=== PATIENT | male | born 1960 | race Caucasian/White ===

== ENCOUNTER 2025-02-05 09:23 | Observation (INO) | payer MEDICARE, BC, SELFPAY ==
[2025-02-05] VITALS (10 sets, daily range): BP systolic 118–139; BP diastolic 75–89; PULSE 65–72; RESP 16–20; TEMP 36.5–36.8; O2SAT 94–99; BMI 32.0; BMI 31.1
[2025-02-05 10:04] LABS: Absolute Lymphocyte Count 2.72 X10^3/uL (0.83-4.51); Absolute Neutrophil Count 4.9 X10^3/uL (2.0-7.7); Basophil# 0.06 X10^3/uL; Basophil% 0.7 % (0-1); Eosinophil# 0.25 X10^3/uL; Eosinophils% 2.8 % (0-5); Hematocrit 41.6 % (40-54); Hemoglobin 13.9 g/dL (13.0-16.5); Lymphocyte # 2.72 X10^3/ul (0.83-4.51); Lymphocyte % 30.2 % (19-41); Mean Corp Hgb Conc 33.4 g/dL (32-36); Mean Corpuscular Hgb 26.4 pg (27.0-32.0); Mean Corpuscular Volume 78.9 fL (80-94); Mean Platelet Vol. 9.3 fl (6.2-12.0); Monocyte# 1.04 X10^3/uL; Monocyte% 11.5 % (0-10); NRBC Flagged by Analyzer 0 % (0-5); Neutrophil # 4.91 X10^3/uL (2.7-7.7); Neutrophil % 54.5 % (47-70); Platelet Count 339 K/mm3 (150-450); RBC Distribution Width CV 17.3 % (11.6-14.6); Red Blood Count 5.27 M/mm3 (4.6-6.2)
[2025-02-05] MEDS: 0.9% Normal Saline (1000mL) 1,000 ML 999 ML IV ×2 (10:06→11:31)
--- NOTE | 2025-02-05 10:10 | CT_ITS ---
PROCEDURE: ABDOMEN/PELVIS W IV CONT ONLY 02/05/2025 REASON FOR EXAM: ABD PAIN, RUQ, LLQ TECHNIQUE: ABDOMEN/PELVIS W IV CONT ONLY Coronal and Sagittal reconstruction series were provided. CONTRAST: 100 mL of Isovue 370 One or more dose reduction techniques were used (e.g., Automated exposure control, adjustment of the mA and/or kV according to patient size, use of iterative reconstruction technique. RADIATION DOSE SUMMARY: DLP: 1443 mGycm COMPARISON: 08/19/24 FINDINGS: Limited sections of the lung bases demonstrate no focal pulmonary mass or consolidations. The liver, spleen, pancreas, and both adrenal glands demonstrate no acute findings. Mild hepatic steatosis. Scattered calcifications throughout the spleen likely related to prior granulomatous disease. The gallbladder contains gallstones. No CT evidence of acute cholecystitis. The stomach is unremarkable. The small bowel loops are not dilated. The appendix is not clearly identified, although there are no secondary signs of appendicitis. No colonic obstruction. Colonic diverticulosis without acute diverticulitis. There is no free air or significant free fluid. The kidneys are unremarkable. The urinary bladder is partially distended. The pelvic structures are intact. There is no solid pelvic mass. No significant lymphadenopathy. The aorta and IVC demonstrate no acute findings. Moderate atherosclerosis of the abdominal vasculature. Visualized osseous structures demonstrate no acute abnormality. Extensive multilevel lumbar degenerative changes with posterior fixation hardware and associated laminectomies. CT/Abdomen/Pelvis W IV Cont ONLY IMPRESSION: No acute intra-abdominal process. Colonic diverticulosis without acute diverticulitis. No bowel obstruction. Ch olelithiasis without CT evidence of acute cholecystitis. Reading Location: [id number]
--- NOTE | 2025-02-05 10:10 | EDS_ITS ---
HPI History of Present Illness Chief Complaint: Abd Pain Narrative Narrative: Patient is a 64-year-old male with past medical history of spigelian hernia, hypertension, diabetes who presented to the emergency department the chief complaint of abdominal pain. Patient states that his abdominal pain has been going on for a few weeks and have been progressively worsening. He states that around 3:00 this morning he noted that he had severe abdominal pain prompting him to come here for further evaluation management. Patient denies any recent sick contacts denies any previous abdominal surgeries. He states that he is passing gas. [facility] Medical History Abdominal wall asymmetry Spigelian hernia Fusion 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 Home Medications ?Medication ?Instructions ?Recorded ?Last Taken ?Type amlodipine 10 mg-benazepril 20 mg 1 cap PO QDAY Unknown History capsule esomeprazole magnesium 40 mg 40 mg PO QDAY 06/14/24 Un known History capsule,delayed release gabapentin 600 mg tablet 600 mg PO TID 06/14/24 Unkno wn History isotretinoin 40 mg capsule 40 mg PO BID 06/14/24 Unkno wn History metformin 500 mg tablet 500 mg PO BID 06/14/24 Unkno wn History rosuvastatin 10 mg tablet 10 mg PO QDAY 06/14/24 Unkno wn History umeclidinium 62.5 mcg-vilanterol 1 inh inhalation QDAY 06/14/24 Unknown History 25 mcg/actuation powdr for inhalation (Anoro Ellipta) Allergy/AdvReac Type Severity Reaction Status Date / Time codeine AdvReac Itching Verified 09/10/24 08:08 morphine AdvReac Itching Verified 06/14/24 08:00 Family History Mother No problems noted. Father , 47 yrs old Myocardial infarction Surgical History History of left knee replacement Hx of tonsillectomy Previous back surgery Social History current occupational status: retired Smoking Status: Former smoker quit date: 08/11/09 alcohol intake: current details: seldom caffeine: No do you feel safe at home: Yes ROS ROS ED ROS Narrative Constitutional: Denies fevers, chills, headaches Cardiovascular: Denies chest pain Respiratory: Denies shortness of breath Abdomen: Complains of abdominal pain as noted above denies nausea vomit diarrhea denies dark tarry stools denies blood in stool : Denies any urinary symptoms Neurological: Denies numbness, aches, tingling Musculoskeletal: Denies back pain Skin: Denies any rashes or lesions EXAM Physical Exam Narrative Exam Narrative: General: Patient lying in bed rest comfortably did not appear to be in acute distress Head: Atraumatic, normocephalic Eyes: PERRL bilaterally, EOMI by, no conjunctival injection noted Neck: Soft, supple, trachea midline Cardiovascular: Regular rate and rhythm Respiratory: Clear to auscultation bilaterally Abdomen: Soft, nondistended, tenderness to palpation the right upper quadrant no rebound or guarding on exam patient does have some left lower quadrant tend erness as well no rebound or guarding on exam Extremities: +5/5 strength noted in the bilateral upper and lower extremity, radial pulses +2/4 in the bilateral extremities, no pedal edema on exam Neurological: Patient following commands knew that he was at [facility] year is 2024 Skin: Warm, dry, intact no rashes or lesions noted Const Vital Signs: 02/05/25 09:24 Temperature 97.9 F Temperature Source Temporal Pulse Rate 72 Respiratory Rate 16 Blood Pressure 139/76 H Blood Pressure Mean 97 Pulse Ox 96 Oxygen Delivery Method Room Air MDM MDM MDM Narrative Medical decision making narrative: Patient is a 64-year-old male who presented to the emergency department the chief complaint of abdominal pain that has been progressively worsening. On the differential diagnosis includes but not limited to cholecystitis, pancreatitis, bowel obstruction, diverticulitis, AAA. Once workup is obtained and reviewed he will be reevaluated. Patient will give a liter of IV fluids. Lab Data Labs: Laboratory Results - last 24 hr 02/05/25 09:35 WBC 9.0 RBC 5.27 Hgb 13.9 Hct 41.6 MCV 78.9 L MCH 26.4 L MCHC 33.4 RDW Std Deviation 49.0 H RDW Coeff of Jarvis 17.3 H Plt Count 339 MPV 9.3 Immature Gran % (Auto) 0.300 Neut % (Auto) 54.5 Lymph % (Auto) 30.2 [place] % (Auto) 11.5 H Eos % (Auto) 2.8 Baso % (Auto) 0.7 Absolute Neuts (auto) 4.9 Absolute Lymphs (auto) 2.72 Nucleated RBC % 0 Discharge Plan Triage Chief Complaint: Abd Pain ED Provider: Pablo Norwood Dx/Rx/DC Orders Prescriptions: No Action amlodipine-benazepril 10-20 mg capsule 1 cap PO QDAY Anoro Ellipta 62.5-25 mcg/actuation blister with device 1 inh inhalation QDAY esomeprazole magnesium 40 mg capsule,delayed release(DR/EC) 40 mg PO QDAY isotretinoin 40 mg capsule 40 mg PO BID Rx Instructions: must administer with a meal/food metformin 500 mg tablet 500 mg PO BID rosuvastatin 10 mg tablet 10 mg PO QDAY gabapentin 600 mg tablet 600 mg PO TID Primary Care Provider: Edmundo Pollock Referrals: Edmundo Pollock MD [Primary Care Provider] - Print Language: Ugandan
--- NOTE | 2025-02-05 10:10 | EX.ED.DYSGE1 ---
HPI History of Present Illness Chief Complaint: Abd Pain Narrative Narrative: Patient is a 64-year-old male with past medical history of spigelian hernia, hypertension, diabetes who presented to the emergency department the chief complaint of abdominal pain. Patient states that his abdominal pain has been going on for a few weeks and have been progressively worsening. He states that around 3:00 this morning he noted that he had severe abdominal pain prompting him to come here for further evaluation management. Patient denies any recent sick contacts denies any previous abdominal surgeries. He states that he is passing gas. [facility] Medical History Abdominal wall asymmetry Spigelian hernia Fusion 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 Home Medications ?Medication ?Instructions ?Recorded ?Last Taken ?Type amlodipine 10 mg-benazepril 20 mg 1 cap PO QDAY 06/14/24 Unknown History capsule esomeprazole magnesium 40 mg 40 mg PO QDAY 06/14/24 Unknown History capsule,delayed release gabapentin 600 mg tablet 600 mg PO TID 06/14/24 Unknown History metformin 500 mg tablet 500 mg PO BID 06/14/24 Unknown History rosuvastatin 10 mg tablet 10 mg PO QDAY 06/14/24 Unknown History umeclidinium 62.5 mcg-vilanterol 1 inh inhalation QDAY 06/14/24 Unknown History 25 mcg/actuation powdr for inhalation (Anoro Ellipta) Allergy/AdvReac Type Severity Reaction Status Date / Time codeine AdvReac Itching Verified 09/10/24 08:08 morphine AdvReac Itching Verified 06/14/24 08:00 Family History Mother No problems noted. Father , 47 yrs old Myocardial infarction Surgical History History of left knee replacement Hx of tonsillectomy Previous back surgery Social History current occupational status: retired Smoking Status: Former smoker quit date: 08/11/09 alcohol intake: current details: seldom caffeine: No do you feel safe at home: Yes ROS ROS ED ROS Narrative Constitutional: Denies fevers, chills, headaches Cardiovascular: Denies chest pain Respiratory: Denies shortness of breath Abdomen: Complains of abdominal pain as noted above denies nausea vomit diarrhea denies dark tarry stools denies blood in stool : Denies any urinary symptoms Neurological: Denies numbness, aches, tingling Musculoskeletal: Denies back pain Skin: Denies any rashes or lesions EXAM Physical Exam Narrative Exam Narrative: General: Patient lying in bed rest comfortably did not appear to be in acute distress Head: Atraumatic, normocephalic Eyes: PERRL bilaterally, EOMI by, no conjunctival injection noted Neck: Soft, supple, trachea midline Cardiovascular: Regular rate and rhythm Respiratory: Clear to auscultation bilaterally Abdomen: Soft, nondistended, tenderness to palpation the right upper quadrant no rebound or guarding on exam patient does have some left lower quadrant tenderness as well no rebound or guarding on exam Extremities: +5/5 strength noted in the bilateral upper and lower extremity, radial pulses +2/4 in the bilateral extremities, no pedal edema on exam Neurological: Patient following commands knew that he was at [facility] year is 2024 Skin: Warm, dry, intact no rashes or lesions noted Const Vital Signs: 02/05/25 09:24 02/05/25 11:24 02/05/25 13:00 Temperature 97.9 F Temperature Source Temporal Pulse Rate 72 65 69 Respiratory Rate 16 16 20 H Blood Pressure 139/76 H 128/82 H 135/89 H Blood Pressure Mean 97 97 104 Pulse Ox 96 99 96 Oxygen Delivery Method Room Air Room Air 02/05/25 15:03 Temperature Temperature Source Pulse Rate 69 Respiratory Rate 18 Blood Pressure 118/79 Blood Pressure Mean 92 Pulse Ox 98 Oxygen Delivery Method MDM MDM MDM Narrative Medical decision making narrative: Patient is a 64-year-old male who presented to the emergency department the chief complaint of abdominal pain that has been progressively worsening. On the differential diagnosis includes but not limited to cholecystitis, pancreatitis, bowel obstruction, diverticulitis, AAA. Once workup is obtained and reviewed he will be reevaluated. Patient will give a liter of IV fluids. Your potassium patient CBC reviewed showed no evidence leukocytosis white blood count normal at 9, hemoglobin is 13.9, platelet count was noted be 339. Patient sodium normal 136, potassium normal at 4.2, creatinine normal at 0.76. Patient's AST and ALT are 24 and 19 respectively lipase normal at 21, urinalysis reviewed showed no evidence of infection. Patient CT ab pelvis with IV contrast reviewed showed no acute intra-abdominal processes he has colonic diverticulosis without evidence of acute diverticulitis no bowel obstruction. Cholelithiasis without evidence of acute cholecystitis. I went back in and reevaluate the patient and on abdominal exam he has significant tenderness to palpation in the right upper quadrant clinically does suggest acute cholecystitis therefore a right upper quadrant ultrasound was added on. Right upper quadrant ultrasound was reviewed which showed acute cholecystitis without cholelithiasis hepatic steatosis. Patient was given dose of Zosyn. I reach out to on-call general surgeon Dr. Mahoney who states that he will admit the patient and planning to take his gallbladder out tomorrow. I discussed this with the patient and significant other at bedside they are agreeable this plan all question concerns answered. Lab Data Labs: Laboratory Results - last 24 hr 02/05/25 02/05/25 09:35 11:28 WBC 9.0 RBC 5.27 Hgb 13.9 Hct 41.6 MCV 78.9 L MCH 26.4 L MCHC 33.4 RDW Std Deviation 49.0 H RDW Coeff of Jarvis 17.3 H Plt Count 339 MPV 9.3 Immature Gran % (Auto) 0.300 Neut % (Auto) 54.5 Lymph % (Auto) 30.2 [place] % (Auto) 11.5 H Eos % (Auto) 2.8 Baso % (Auto) 0.7 Absolute Neuts (auto) 4.9 Absolute Lymphs (auto) 2.72 Nucleated RBC % 0 Sodium 136 Potassium 4.2 Chloride 101 Carbon Dioxide 22.8 Anion Gap 12 BUN 7 Creatinine 0.76 Estim Creat Clear Calc 113.02 Est GFR (MDRD) Non-Af 100 BUN/Creatinine Ratio 8.6 L Glucose 143 H Calcium 8.8 Total Bilirubin 0.41 AST 24 ALT 19 Alkaline Phosphatase 82 Total Protein 7.0 Albumin 4.3 Globulin 2.7 Albumin/Globulin Ratio 1.6 Lipase 21 Urine Color Straw Urine Clarity Clear Urine pH 7.0 Ur Specific [place] 1.005 Urine Protein 15 H Urine Glucose (UA) Normal Urine Ketones Negative Urine Occult Blood Negative Urine Nitrite Negative Urine Bilirubin Negative Urine Urobilinogen Normal Ur Leukocyte Esterase Negative Urine RBC 0 SEEN Urine WBC 0-5 SEEN Ur Squamous Epith Cells 0 SEEN Urine Bacteria 0 SEEN Urine Mucus 0 SEEN Radiography Diagnostic Testing: Clinical Impression(s) from Imaging Studies Abdomen/Pelvis CT 02/05/25 10:10 IMPRESSION: No acute intra-abdominal process. Colonic diverticulosis without acute diverticulitis. No bowel obstruction. Cholelithiasis without CT evidence of acute cholecystitis. Reading Location: [facility] Gallbladder Ultrasound 02/05/25 13:10 IMPRESSION: Acute cholecystitis with cholelithiasis. Hepatic steatosis. Reading Location: [facility] Discharge Plan Dx/Rx/DC Orders Clinical Impression: Acute cholecystitis, Abdominal pain Disposition Disposition: Acute Care Hospital [facility] Discharge Date/Time: 02/05/25 16:30
--- OUTSIDE RECORDS SUMMARY | 2025-02-05 10:30 | XMS RPT_ITS | CCD ---
Author Organization [facility] Inform ion [facility] Care Team Providers Care Day Guard Name Role Phone Timothy Correa Primary Care Provider Unavailable Primary Care Provider UnavailTimothy Elaine MD Primary Care Provider Timothy Correa Primary Care Provider Timothy Correa MD Primary Care Provider Timothy Correa Primary Care Provider Timothy Correa Primary Care Provider Sissen PSS, Rony Unavailable Unavailable Matthieu Esparza PA-C Unavailable Chika Carpenter MD Unavailable [phone] Knupp PT, Ned Unavailable Timothy Correa MD Primary Care Provider [phone] Knupp PT, Ned Unavailable PROVIDER, UNKNOWN Primary Care Unavailable PROVIDER, UNKNOWN Referring Unavailable PROVIDER, UNKNOWN Primary Care Unavailable PROVIDER, UNKNOWN Referring Unavailable PROVIDER, UNKNOWN Primary Care Unavailable YANET BOYLE Referring Unavailable PROVIDER, UNKNOWN Primary Care Unavailable PROVIDER, UNKNOWN Referring Unavailable PROVIDER, UNKNOWN Primary Care Unavailable YANET BOYLE Referring Unavailable PROVIDER, UNKNOWN Primary Care Unavailable PROVIDER, UNKNOWN Referring Unavailable PROVIDER, UNKNOWN Referring Unavailable PROVIDER, UNKNOWN Primary Care Unavailable PROVIDER, UNKNOWN Primary Care Unavailable PROVIDER, UNKNOWN Referring Unavailable PROVIDER, UNKNOWN Primary Care Unavailable PROVIDER, UNKNOWN Referring Unavailable PROVIDER, UNKNOWN Primary Care Unavailable TRE GO Attending Unavailable PROVIDER, UNKNOWN Referring Unavailable PROVIDER, UNKNOWN Primary Care Unavailable PROVIDER, UNKNOWN Referring Unavailable PROVIDER, UNKNOWN Primary Care Unavailable PROVIDER, UNKNOWN Referring Unavailable AVA KEITA Attending Unavailable PROVIDER, UNKNOWN Referring Unavailable PROVIDER, UNKNOWN Primary Care Unavailable PROVIDER, UNKNOWN Primary Care Unavailable PROVIDER, UNKNOWN Attending Unavailable PROVIDER, UNKNOWN Admitting Unavailable PARRIS WELSH Consulting Unavailable PROVIDER, UNKNOWN Referring Unavailable PROVIDER, UNKNOWN Primary Care Unavailable PROVIDER, UNKNOWN Referring Unavailable TRE GO Attending Unavailable PROVIDER, UNKNOWN Primary Care Unavailable TRE GO Attending Unavailable PROVIDER, UNKNOWN Referring Unavailable PROVIDER, UNKNOWN Primary Care Unavailable PROVIDER, UNKNOWN Referring Unavailable PROVIDER, UNKNOWN Primary Care Unavailable PROVIDER, UNKNOWN Referring Unavailable TRE GO Attending Unavailable PROVIDER, UNKNOWN Primary Care Unavailable PROVIDER, UNKNOWN Referring Unavailable PROVIDER, UNKNOWN Referring Unavailable PROVIDER, UNKNOWN Primary Care Unavailable TRE GO Attending Unavailable PROVIDER, UNKNOWN Primary Care Unavailable PROVIDER, UNKNOWN Referring Unavailable CHIKA CARPENTER Attending Unavailable SURSO, GUTIERREZ Primary Care Unavailable SURSO, GUTIERREZ Primary Care Unavailable ARUNA, CHIKA E Attending Unavailable SURSO, GUTIERREZ Primary Care Unavailable MATTHIEU ESPARZA Attending Unavailable SZIRAKY, CHIKA E Attending Unavailable SURSO, GUTIERREZ Primary Care Unavailable ARUNA, CHIKA E Attending Unavailable SURSO, GUTIERREZ Primary Care Unavailable RELGA HIGGINS Attending Unavailable SURSO, GUTIERREZ Primary Care Unavailable SURSO, GUTIERREZ Primary Care Unavailable REECE COOPER Attending Unavailable Surso, Gutierrez Primary Care Provider Rony Dejesus Unavailable Unavailable Unavailable Primary Care Provider Unavaildeann e Surso, Timothy Primary Care Unavailable Surso, Timothy Referring Unavailable Bunny Mahoney Attending Unavailable Adryan Pitt Attending Unavailable PROVIDER, UNKNOWN Admitting Unavailable PROVIDER, UNKNOWN Attending Unavailable SURSO, TIMOTHY Primary Care Unavailable SURSO, TIMOTHY Referring Unavailable SURSO, TIMOTHY Primary Care Unavailable PROVIDER, UNKNOWN Admitting Unavailable SURSO, TIMOTHY Attending Unavailable PROVIDER, UNKNOWN Admitting Unavailable SURSO, TIMOTHY Primary Care Unavailable SURSO, TIMOTHY Attending Unavailable PROVIDER, UNKNOWN Admitting Unavailable PROVIDER, UNKNOWN Attending Unavailable SURSO, TIMOTHY Primary Care Unavailable PROVIDER, UNKNOWN Admitting Unavailable SURSO, TIMOTHY Attending Unavailable SURSO, TIMOTHY Primary Care Unavailable Allergies Allergy Classification Reported Allergen(s) Allergy Type Date of Onset Reaction(s) Facility (20 sources) Acetaminophen / HYDROcodone; Translations: [HYDROCODONE-ACETA MINOPHEN] Drug Allergy 5 [place], [place] (20 sources) Codeine; Translations: [CODEINE] Drug Allergy 0 [place], [place] (20 sources) Morphine; Translations: [MORPHINE] Drug Allergy 1 [facility] (1 source) Codeine Drug Allergy [address] [facility] (1 source) Morphine Drug Allergy [address] [facility] Medications Current Medications Medication Drug Class(es) Dates Sig (Normalized) Sig (Original) acetaminophen 500 mg oral tablet (20 sources) Start: 09-11-2022 take 2 tablets by mouth every eight hours as needed Acetaminophen Extra Strength 500 MG tablet Take 1,000 mg by mouth every 8 hours as needed. 09/11/2022 Active Comment on above: Take 2 tablets by [facility] every 8 hours as needed for pain. acetaminophen 325 mg / oxyCODONE hydrochloride 5 mg oral tablet (2 sources) Opioid Agonist Start: 10-27-2023 End: 11-11-2023 take 1 tablet by mouth every six hours as needed for pain oxyCODONE-acetamino phen (PERCOCET) 5-325 mg per tablet Take 1 Tablet by mouth every 6 hours as needed for Pain for up to 15 days. 60 Tablet 0 10/27/2023 11/11/2023 Active [id number] 200 actuat albuterol 0.09 mg/actuat metered dose inhaler (20 sources) beta2-Adrenergic Agonist Start: 11-09-2019 albuterol HFA (PROVENTIL HFA, VENTOLIN HFA) 90 mcg/actuation inhaler Inhale 2 Puffs as instructed. 11/09/2019 Active Start: 11-09-2019 take 2 puff(s) by in halation every six hours as needed for wheezing albuterol sulfate HFA (VENTOLIN HFA) 108 (90 Base) MCG/ACT inhaler Inhale 2 puffs into the lungs every 6 hours as needed for Wheezing 3 Inhaler 2 11/09/2019 Active Comment on above: Inhale 2 Puffs as in structed. amLODIPine 10 mg / benazepril hydrochloride 20 mg oral capsule (20 sources) Dihydropyridine Calcium Channel Meng, Angiotensin Converting Enzyme Inhibitor Start: 08-22-2023 End: 08-17-2024 amlodipine-benazepr il (LOTREL) 10-20 MG per capsule TAKE 1 CAPSULE DAILY 90 Capsule 3 08/17/2024 Active Start: 01-14-2013 End: 08-26-2022 take 1 capsule by mouth once daily AMLODIPINE-BENAZEPRIL 10-20 mg per capsule Take 1 capsule by mouth once daily. 01/14/2013 Active Comment on above: Take 1 capsule by [facility] once daily. disability placard (11 sources) Start: 10-07-2023 End: 10-05-2028 disability placard expires 10/07/2028 1 Each 10/07/2023 10/05/2028 Active Start: 10-07-2023 End: 10-05-2028 disability placard expires 0 10/07/2028 1 Each 0 10/07/2023 10/05/2028 Active ferrous sulfate 325 mg oral tablet (4 sources) take 1 tablet by mouth once daily at breakfast ferrous sulfate 325 (65 FE) MG tablet Take 325 mg by mouth daily (with breakfast) 0 Active gabapentin 300 mg oral capsule (2 sources) Anti-epileptic Agent Start: 0 gabapentin (NEURONTIN) 300 MG capsule meloxicam 7.5 mg oral tablet (11 sources) Nonsteroidal Anti-inflammatory Drug Start: 3 take 1 tablet by mouth once daily meloxicam (MOBIC) 7.5 mg tablet Take 1 tablet by mouth once daily. 30 tablet 2 05/30/2023 Active Start: 07-08-2021 End: 10-03-2022 take 1 tablet by mouth once daily meloxicam (MOBIC) 15 MG tablet Take 15 mg by mouth daily. 0 07/08/2021 10/03/2022 Discontinued Comment on above: Take 1 tablet by [facility] once daily. metFORMIN hydrochloride 500 mg oral tablet (20 sources) Biguanide Start: 08-22-2023 End: 08-17-2024 metFORMIN (GLUCOPHAGE) 500 MG tablet TAKE 1 TABLET TWICE A DAY WITH MEALS 180 Tablet 3 08/17/2024 Active Start: 08-09-2019 End: 08-26-2022 take 1 tablet by mouth twice daily at mealtime metFORMIN (GLUCOPHAGE) 500 mg tablet Take 500 mg by mouth twice daily with meals. 08/09/2019 Active Comment on above: Take 500 mg by mouth . Take 500 mg by mouth twice daily with meals. minoxidil 2.5 mg oral tablet (2 sources) Arteriolar Vasodilator Start: 10-30-19 25 take 1 tablet by mouth once daily minoxidil (LONITEN) 2.5 MG tablet Take 1 Tablet by mouth daily. 90 Tablet 3 10/29/2024 Active mupirocin 0.02 mg/mg topical ointment (5 sources) RNA Synthetase Inhibitor Antibacterial Start: 08-16-19 End: 09-10-19 mupirocin (BACTROBAN) 2 % ointment Indications: Preoperative examination Apply 0.5 inch with cotton swab (Q-tip) to each nostril in the morning and evening for 5 days prior to and including day of surgery. 22 g 0 08/16/2022 09/10/2022 Active Comment on above: Apply 0.5 inch with cotton swab (Q-tip) to each nostril in the morning and evening for 5 days prior to and including day of surgery. polyethylene glycol 3350 74728 mg powder for oral solution (8 sources) Osmotic Laxative Start: 09-11-19 End: 09-21-19 polyethylene glycol 3350 (MIRALAX) 17 gram/dose powder Take 17 g by mouth once daily as needed for constipation for up to 10 days. Dissolve dose in 4 - 8 ounces of liquid and take as directed. 170 g 0 09/11/2022 09/21/2022 Active Comment on above: Take 17 g by mouth o nce daily as needed for constipation for up to 10 days. Dissolve dose in 4 - 8 ounces of liquid and take as directed. predniSONE 10 mg oral tablet (3 sources) Start: 03-06-20 20 predniSONE (DELTASONE) 10 MG tablet Take 4 tabs x3 days; 3 tabs x3days; 2 tabs x 3 days; 1 tab x 3 days. With food. 30 tablet 0 2020 Active rosuvastatin calcium 10 mg oral tablet (20 sources) HMG-CoA Reductase Inhibitor Start: 08-22-19 24 End: 08-17-19 25 rosuvastatin (CRESTOR) 10 MG tablet TAKE 1 TABLET DAILY 90 Tablet 3 08/17/2024 Active Start: 01-14-2013 End: 08-26-2022 take 1 tablet by mouth once daily CRESTOR 10 mg tablet Take 10 mg by mouth once daily. 01/14/2013 Active Comment on above: Take 10 mg by mouth once daily. tirzepatide (MOUNJARO) 5 MG/0.5ML pen (3 sources) Start: 01-17-2025 tirzepatide (MOUNJARO) 5 MG/0.5ML pen Indications: Type 2 diabetes mellitus without complication, without long-term current use of insulin (HCC) , BMI 35.0-35.9,adult Inject 5 mg under the skin once weekly. 6 mL 3 01/17/2025 Active Start: 01-11-2025 End: 01-17-2025 tirzepatide (MOUNJARO) 5 MG/ 0.5ML pen Indications: Type 2 diabetes mellitus without complication, without long-term current use of insulin (HCC) , BMI 35.0-35.9,adult Inject 5 mg under the skin once weekly. 2 mL 3 01/11/2025 01/17/2025 Discontinued (Reorder (*won't e-cancel)) Start: 01-11-2025 tirzepatide (M OUNJARO) 5 MG/0.5ML pen Indications: Type 2 diabetes mellitus without complication, without long-term current use of insulin (HCC) , BMI 35.0-35.9,adult Inject 5 mg under the skin once weekly. 2 mL 3 01/11/2025 Active 30 actuat umeclidinium 0.0625 mg/actuat / vilanterol 0.025 mg/actuat dry powder inhaler (20 sources) Anticholinergic, beta2-Adrenergic Agonist Start: 07-29-2022 End: 03-26-2023 take 1 dose by inhalation once daily Anoro Ellipta 62.5-25 MCG/ACT AEPB inhalation powder USE 1 INHALATION DAILY 120 Each 5 03/26/2023 Active Start: 11-09-2019 End: 07-29-2022 take 1 puff(s) by inhalation once daily as needed umeclidinium-vilanterol (ANORO ELLIPTA) 62.5-25 mcg/actuation inhaler Inhale 1 Puff as instructed once daily as needed (shortness of breath). 11/09/2019 Active Start: 11-09-2019 umeclidinium-v ilanterol (ANORO ELLIPTA) 62.5-25 mcg/actuation inhaler [The details of the medication are not available because there are pending changes by a home health clinician.] 0 11/09/2019 Active Start: 11-09-2019 umeclidinium-v ilanterol (ANORO ELLIPTA) 62.5-25 mcg/actuation inhaler Inhale 1 Puff as instructed as needed. 0 11/09/2019 Active Comment on above: Inhale 1 Puff as ins tructed. Inhale 1 Puff as ins tructed as needed. [The details of the medication are not available because there are pending changes by a home health clinician.] Inhale 1 Puff as ins tructed once daily as needed (shortness of breath). Completed/Discontinued Medications Medication Drug Class(es) Dates Sig (Normalized) Sig (Original) ascorbic acid 500 mg chewable tablet (20 sources) Vitamin C Start: 09-11-2022 End: 09-25-2022 take 1 tablet by mouth twice daily at mealtime ascorbic acid, vitamin C, (VITAMIN C) 500 mg tablet Take 1 tablet by mouth twice daily with meals for 27 doses. 27 tablet 09/11/2022 Active Start: 09-11-2022 End: 10-18-2024 take 1 tablet by mouth twice daily at mealtime vitamin C (ASCORBIC ACID) 500 MG tablet TAKE 1 TABLET BY MOUTH TWICE DAILY WITH MEALS FOR 27 DOSES 09/11/2022 10/18/2024 Discontinued Comment on above: Take 1 tablet by [facility] twice daily with meals for 27 doses. aspirin 81 mg delayed release oral tablet (20 sources) Platelet Aggregation Inhibitor, Nonsteroidal Anti-inflammatory Drug Start: 09-11-2022 End: 10-18-2024 take 1 tablet by mouth twice daily Aspirin Low Dose 81 MG tablet Take 81 mg by mouth 2 times daily. 09/11/2022 10/18/2024 Discontinued Start: 11-27-2019 End: 11-27-2019 aspirin 81 MG chewable table t Start: 11-27-2019 End: 11-27-2019 aspirin chewable tablet 162 mg Comment on above: Take 1 tablet by [facility] twice daily for 28 days. baclofen 10 mg oral tablet (20 sources) gamma-Aminobutyric Acid-ergic Agonist Start: 07-08-20 End: 10-30-19 take 1 tablet by mouth every eight hours as needed baclofen (LIORESAL) 10 MG tablet Take 10 mg by mouth every 8 hours as needed. 07/08/2021 10/29/2024 Discontinued betamethasone 3 mg/ml / betamethasone acetate 3 mg/ml injectable suspension (2 sources) Corticosteroid Start: 08-02-20 End: 08-02-20 betamethasone acetate-betamethason e sodium phosphate 12 mg injection (CELESTONE) Start: 02-22-2022 End: 02-22-2022 betamethasone acetate-betame thasone sodium phosphate 12 mg injection (CELESTONE) 5 ml bupivacaine hydrochloride 2.5 mg/ml injection (1 source) Amide Local Anesthetic Start: 08-02-2022 End: 08-02-2022 bupivacaine (PF) 0.25 % (2.5 mg/mL) 3 mL injection (SENSORCAINE MPF) Start: 08-02-2022 End: 08-02-2022 bupivacaine (PF) 0.25 % (2.5 mg/mL) 3 mL injection (SENSORCAINE MPF) docusate sodium 100 mg oral capsule (20 sources) Start: 09-11-2022 End: 10-18-2024 take 1 capsule by mouth twice daily as needed for constipation docusate sodium (COLACE) 100 MG capsule TAKE 1 CAPSULE BY MOUTH TWICE DAILY NEEDED FOR CONSTIPATION 09/11/2022 10/18/2024 Discontinued Comment on above: Take 1 capsule by mo [facility] twice daily as needed for constipation. esomeprazole 40 mg delayed release oral capsule (20 sources) Proton Pump Inhibitor Start: 01-14-2013 End: 09-15-2024 esomeprazole (NEXIUM) 40 MG capsule TAKE 1 CAPSULE DAILY 30 MINUTES BEFORE BREAKFAST 90 Capsule 3 09/23/2023 09/15/2024 Discontinued Comment on above: Take 40 mg by mouth once daily. gadobutrol (GADAVIST) injection 10 mL (1 source) Start: 03-22-2020 End: 03-22-2020 gadobutrol (GADAVIST) injection 10 mL 2 ml sodium hyaluronate 10 mg/ml prefilled syringe (3 sources) Start: 06-28-2022 End: 06-28-2022 sodium hyaluronate 20 mg injection (EUFLEXXA) Start: 06-21-2022 End: 06-21-2022 sodium hyaluronate 20 mg inj ection (EUFLEXXA) Start: 06-14-2022 End: 06-14-2022 sodium hyaluronate 20 mg inj ection (EUFLEXXA) 10 ml lidocaine hydrochloride 20 mg/ml injection (1 source) Antiarrhythmic, Amide Local Anesthetic Start: 02-22-2022 End: 02-22-2022 lidocaine (PF) 20 mg/mL (2 %) 2 mL injection (XYLOCAINE) Start: 02-22-2022 End: 02-22-2022 lidocaine (PF) 20 mg/mL (2 % ) 2 mL injection (XYLOCAINE) methylPREDNISolone (5 sources) Corticosteroid Start: 07-05-2022 End: 08-16-2022 methylPREDNISolone (MEDROL, GEOVANI,) 4 mg Dose-Pack Indications: Acute pain of right knee , Primary osteoarthritis of right knee As Instructed per package 21 tablet 07/05/2022 08/16/2022 Discontinued (Course of therapy completed) Start: 07-05-2022 End: 08-16-2022 methylPREDNISolone (MEDROL, GEOVANI,) 4 mg Dose-Pack Indications: Acute pain of right knee , Primary osteoarthritis of right knee As Instructed per package 21 tablet 0 07/05/2022 08/16/2022 Discontinued (Course of therapy completed) Start: 07-05-2022 methylPREDNISo lone (MEDROL, GEOVANI,) 4 mg Dose-Pack Indications: Acute pain of right knee , Primary osteoarthritis of right knee As Instructed per package 21 tablet 0 07/05/2022 Active Comment on above: As Instructed per maximino modi tadalafil 20 mg oral tablet (18 sources) Phosphodiesterase 5 Inhibitor Start: 023 End: tadalafil (CIALIS) 20 MG tablet Take 1 Tablet by mouth as needed for Erectile Dysfunction. 30 minutes prior to anticipated sexual activity as one single dose and not more than once daily. 30 Tablet 5 10/09/2022 10/30/2024 Discontinued (Reorder (*won't e-cancel)) tirzepatide (MOUNJARO) 2.5 MG/0.5ML pen (2 sources) Start: 025 End: 025 tirzepatide (MOUNJARO) 2.5 MG/0.5ML pen Indications: Type 2 diabetes mellitus without complication, without long-term current use of insulin (HCC) , BMI 35.0-35.9,adult Inject 2.5 mg under the skin once weekly. 6 mL 3 11/09/2024 01/11/2025 Discontinued traMADol hydrochloride 50 mg oral tablet (12 sources) Opioid Agonist Start: 023 End: 023 take 1-2 tablets by mouth every six hours as needed for pain traMADol (ULTRAM) 50 mg tablet Indications: S/P total knee arthroplasty, right Take 1-2 tablets by mouth every 6 hours as needed for pain for up to 7 days. 50 tablet 09/23/2022 09/30/2022 Start: 09-11-2022 End: 09-18-2022 take 1-2 tablets by mouth every six hours as needed for pain traMADol (ULTRAM) 50 mg tablet Indications: S/P total knee arthroplasty, right Take 1-2 tablets by mouth every 6 hours as needed for pain for up to 7 days. 50 tablet 0 09/11/2022 09/18/2022 Active Comment on above: Take 1-2 tablets by mouth every 6 hours as needed for pain for up to 7 days. Problems Active Problems Problem Classification Problem Date Documented Da te Episodic/Chronic Administrative/social admission (1 source) Encounter for issue of repeat prescription; Translations: [Medication refill] Onset: 4 Episodic Complication of device; implant or graft (5 sources) Pain due to internal prosthetic device; Translations: [Pain due to internal orthopedic prosthetic devices, implants and grafts, initial encounter] Onset: 3 05-16-2023 Episodic Diabetes mellitus without complication (20 sources) Type 2 diabetes mellitus without complication; Translations: [Type 2 diabetes mellitus without complications] Onset: 6 05-25-2016 Chronic Disorders of lipid metabolism (20 sources) Pure hypercholesterolemia; Translations: [Pure hypercholesterolemia, unspecified] Onset: 5 03-10-2015 Chronic Esophageal disorders (20 sources) Gastroesophageal reflux disease; Translations: [Gastro-esophageal reflux disease without esophagitis] Onset: 4 11-25-2019 Chronic Essential hypertension (20 sources) Hypertensive disorder; Translations: [Benign essential hypertension] Onset: 3 11-25-2019 Chronic Immunizations and screening for infectious disease (1 source) Viral screening status; Translations: [Encounter for screening for other viral diseases] Episodic Nutritional deficiencies (3 sources) Vitamin D deficiency; Translations: [Vitamin D deficiency, unspecified] Chronic Osteoarthritis (20 sources) Osteoarthritis of knee; Translations: [Unilateral primary osteoarthritis, unspecified knee] Onset: 4 11-25-2019 Chronic Other aftercare (2 sources) Patient encounter status; Translations: [Aftercare following joint replacement surgery] Chronic Other connective tissue disease (6 sources) History of total knee arthroplasty; Translations: [Presence of right artificial knee joint] Chronic Other connective tissue disease (2 sources) Presence of left artificial knee joint; Translations: [S/P total knee replacement using cement, left] Onset: 3 Chronic Other connective tissue disease (1 source) Presence of right artificial knee joint; Translations: [S/P total knee arthroplasty, right] Onset: 3 Chronic Other connective tissue disease (1 source) Pain in lower limb; Translations: [Acute pain of right lower extremity] Episodic Other connective tissue disease (1 source) Right rotator cuff syndrome; Translations: [Unspecified rotator cuff tear or rupture of right shoulder, not specified as traumatic] Episodic Other connective tissue disease (1 source) Muscle pain; Translations: [Myalgia, unspecified site] 04-24-2023 Episodic Other connective tissue disease (1 source) Swelling of left lower limb; Translations: [Other specified soft tissue disorders] 12-16-2023 Episodic Other gastrointestinal disorders (1 source) Mass of left lower quadrant of abdomen; Translations: [Left lower quadrant abdominal swelling, mass and lump] 09-06-2024 Episodic Other male genital disorders (1 source) Male erectile dysfunction, unspecified; Translations: [Impotence of organic origin] Chronic Other nervous system disorders (1 source) Other chronic pain; Translations: [Chronic pain of right knee] Onset: 3 Chronic Other nervous system disorders (1 source) Paresthesia of skin; Translations: [Arm paresthesia, left] Episodic Other non-traumatic joint disorders (1 source) Pain in left hip; Translations: [Pain in left hip] Onset: 3 Episodic Other non-traumatic joint disorders (4 sources) Pain in right knee; Translations: [Pain in joint, lower leg] Onset: 4 07-18-2023 Episodic Other non-traumatic joint disorders (2 sources) Pain in right shoulder; Translations: [Pain in joint, shoulder region] Onset: 2 08-02-2022 Episodic Other non-traumatic joint disorders (1 source) Hip pain; Translations: [Pain in left hip] 07-18-2023 Episodic Other nutritional; endocrine; and metabolic disorders (20 sources) Obesity; Translations: [Obesity, unspecified] Onset: 3 Chronic Other nutritional; endocrine; and metabolic disorders (3 sources) Body mass index 30+ - obesity; Translations: [Body mass index (BMI) 35.0-35.9, adult] 01-11-2025 Chronic Other upper respiratory disease (20 sources) Allergic rhinitis; Translations: [Allergic rhinitis, unspecified] Onset: 5 05-11-2015 Chronic Other upper respiratory disease (4 sources) Allergic rhinitis, cause unspecified Onset: 5 09-19-2020 Chronic Paralysis (4 sources) Weakness of left leg; Translations: [Left leg weakness] Onset: 5 11-25-2019 Residual codes; unclassified (2 sources) Pain; Translations: [Pain, unspecified] Episodic Spondylosis; intervertebral disc disorders; other back problems (2 sources) Spinal stenosis, lumbar region, with neurogenic claudication 10-27-2023 Chronic Unclassified (12 sources) Patient encounter status; Translations: [Screening for malignant neoplasm of prostate] Onset: 6 Resolved: 0 09-08-2019 Past or Other Problems Problem Classification Problem Date Documented Da te Episodic/Chronic Joint disorders and dislocations; trauma-related (20 sources) Tear of medial meniscus of knee; Translations: [Tear of lateral meniscus of knee] Onset: 07-12-2013 11-25-2019 Episodic Nutritional deficiencies (3 sources) Cobalamin deficiency; Translations: [Deficiency of other specified B group vitamins] Episodic Other aftercare (19 sources) Patient encounter status; Translations: [Other ad terminal makeup operator (current) drug therapy] Onset: 05-25-2016 09-19-2020 Episodic Other aftercare (5 sources) Long-term (current) use of other medications Onset: 05-25-2016 09-19-2020 Episodic Other aftercare (6 sources) Long-term current use of drug therapy; Translations: [Other ad terminal makeup operator (current) drug therapy] Onset: 05-25-2016 09-19-2020 Episodic Other connective tissue disease (8 sources) Weakness of left leg; Translations: [Other symptoms and signs involving the musculoskeletal system] Onset: 08-29-2014 08-29-2014 Episodic Other connective tissue disease (20 sources) Other symptoms and signs involving the musculoskeletal system; Translations: [Other musculoskeletal symptoms referable to limbs] Onset: 08-29-2014 08-29-2014 Episodic Other gastrointestinal disorders (1 source) Left lower quadrant abdominal swelling, mass and lump; Translations: [Left lower quadrant abdominal swelling, mass and lump] Onset: 08-19-2024 Episodic Other nervous system disorders (20 sources) Abnormal gait; Translations: [Unspecified abnormalities of gait and mobility] Onset: 08-29-2014 11-25-2019 Episodic Other nervous system disorders (4 sources) Abnormality of gait Onset: 08-29-2014 09-19-2020 Episodic Other non-traumatic joint disorders (20 sources) Knee stiff; Translations: [Stiffness of unspecified knee, not elsewhere classified] Onset: 08-29-2014 11-25-2019 Episodic Other non-traumatic joint disorders (20 sources) Pain in unspecified knee; Translations: [Pain in joint, lower leg] Onset: 04-08-2014 04-08-2014 Episodic Other non-traumatic joint disorders (20 sources) Pain in left knee; Translations: [Pain in joint, lower leg] Onset: 08-29-2014 08-29-2014 Episodic Other non-traumatic joint disorders (20 sources) Pain in right hip joint; Translations: [Pain in right hip] Onset: 10-02-2022 Episodic Other non-traumatic joint disorders (1 source) Pain in right hip; Translations: [Pain in right hip] Onset: 10-02-2022 Episodic Other non-traumatic joint disorders (5 sources) Pain in joint, lower leg Onset: 10-02-2022 10-07-2023 Episodic Other non-traumatic joint disorders (4 sources) Pain in left knee; Translations: [Knee pain, left] Onset: 04-08-2014 Resolved: 12-22-2019 11-25-2019 Other screening for suspected conditions (not mental disorders or infectious disease) (2 sources) Screening for malignant neoplasms of prostate; Translations: [Special screening for malignant neoplasms of colon] 10-06-2023 Episodic Screening and history of mental health and substance abuse codes (20 sources) Ex-smoker; Translations: [Personal history of nicotine dependence] Onset: 08-16-2022 Episodic Spondylosis; intervertebral disc disorders; other back problems (20 sources) Spinal stenosis of lumbar region; Translations: [Spinal stenosis, lumbar region without neurogenic claudication] Onset: 08-30-2019 12-22-2019 Episodic Unclassified (1 source) Mass of left lower quadrant of abdomen 09-06-2024 Results Test Name Value Interpretation Reference Range Facility Addendum Noteon 01-17-2025 [facility] Authentication Interface Message Text Addended by: TIMOTHY CORREA on: 01/17/2025 09:15 PM Modules accepted: Orders Normal [facility] Assessment AND Plan Noteon 0 10-18-2024 [employer] Authentication Interface Message Text Normal [facility] [employer] Authentication Interface Message Text Orders: tirzepatide (MOUNJARO) 2.5 MG/0.5ML pen; Inject 2.5 mg under the skin once weekly. Normal [facility] Patient Instructionson 10-18 [facility] [employer] Authentication Interface Message Text Today the following vaccines were administered: Pneumococcal Conjugate (PCV 20). Vaccines may have different side effects and care recommendations. Please refer to the Vaccine Information Sheet(s) (VIS) provided in your preferred language to learn more about the vaccines that were administered today. If you have any problems or questions, please call the [facility] at [phone]. Normal [facility] Progress Noteson 10-18-2024 [employer] Authentication Interface Message Text ANNUAL WELLNESS VISIT Subjective Mr. Osborn is a 64 year old who is being seen for his Annual Wellness Visit. I have reviewed and updated the following information (Care Team, Medical History, Surgical History, Social History, Family History and current medications including lqrh-moh-hbtblax medications and supplements): Patient Care Team: Timothy Correa MD as PCP - General (Family Medicine) History reviewed. No pertinent past medical history. History reviewed. No pertinent surgical history. No family history on file. Social History Socioeconomic History Marital status: Tobacco Use Smoking status: Former Smokeless tobacco: Never Vaping Use Vaping status: Never Used Social Drivers of Health Financial Resource Strain: Patient Declined (08/12/2024) Overall Financial Resource Strain (CARDIA) Difficulty of Paying Living Expenses: Patient declined Food Insecurity: Patient Declined (08/12/2024) Hunger Vital Sign Worried About Running Out of Food in the Last Year: Patient declined Ran Out of Food in the Last Year: Patient declined Transportation Needs: Patient Declined (08/12/2024) PRAPARE - Transportation Lack of Transportation (Medical): Patient declined Lack of Transportation (Non-Medical): Patient declined Physical Activity: Patient Declined (08/12/2024) Exercise Vital Sign Days of Exercise per Week: Patient declined Minutes of Exercise per Session: Patient declined Stress: Patient Declined (08/12/2024) [place] [facility] [employer] [facility] - Occupational Stress Questionnaire Feeling of Stress : Patient declined Social Connections: Unknown (08/12/2024) Social Connection and Isolation Panel [NHANES] Frequency of Communication with Friends and Family: Patient declined Frequency of Social Gatherings with Friends and Family: Patient declined Attends Congregational Services: Patient declined Active Member of Clubs or Organizations: Patient declined Attends Club or Organization Meetings: Patient declined Marital Status: Intimate Partner Violence: Patient Declined (08/12/2024) Humiliation, Afraid, Rape, and Kick questionnaire Fear of Current or Ex-Partner: Patient declined Emotionally Abused: Patient declined Physically Abused: Patient declined Sexually Abused: Patient declined Current Outpatient Medications on File Prior to Visit Medication Sig Dispense Refill zoster vac recomb adjuvanted (SHINGRIX) 50 MCG/0.5ML SUSR injection Inject 0.5 mL into the muscle once. esomeprazole (NEXIUM) 40 MG capsule TAKE 1 CAPSULE DAILY 30 MINUTES BEFORE BREAKFAST 90 Capsule 3 metFORMIN (GLUCOPHAGE) 500 MG tablet TAKE 1 TABLET TWICE A DAY WITH MEALS 180 Tablet 3 amlodipine-benazepril (LOTREL) 10-20 MG per capsule TAKE 1 CAPSULE DAILY 90 Capsule 3 rosuvastatin (CRESTOR) 10 MG tablet TAKE 1 TABLET DAILY 90 Tablet 3 disability placard expires 10/07/2028 1 Each 0 Anoro Ellipta 62.5-25 MCG/ACT AEPB inhalation powder USE 1 INHALATION DAILY 120 Each 5 tadalafil (CIALIS) 20 MG tablet Take 1 Tablet by mouth as needed for Erectile Dysfunction. 30 minutes prior to anticipated sexual activity as one single dose and not more than once daily. 30 Tablet 5 Acetaminophen Extra Strength 500 MG tablet Take 1,000 mg by mouth every 8 hours as needed. baclofen (LIORESAL) 10 MG tablet Take 10 mg by mouth every 8 hours as needed. (Patient not taking: Reported on 10/18/2024) No current facility-administered medications on file prior to visit. I have reviewed the following additional information for Mr. Osborn. Falls Risk Screen Falls Risk Screen Fall History (past 12 months): No Fallen with Injury?: (!) Yes Problems with Walking or Balance?: No PHQ Depression Screen PHQ-9 Depression Screen (over the last 2 weeks...) Decreased Interest / Pleasure?: Not at all Down / Depressed / Hopeless?: Not at all PHQ-2 Total: 0 PHQ2 Interpretation: Screening is Negative Problem Sleeping?: (!) More than half the days Tired / Little Energy?: Not at all Poor / Excessive Appetite?: Not at all Self [place]?: Not at all Trouble Concentrating?: Not at all Lethargic / Restless?: Not at all Suicidal Ideations?: Not at all Impact on Life?: Not difficult at all PHQ-9 Total Score: 2 Hearing Screen Hearing Screen Have you noticed any changes with your hearing? : No Vision Screen Vision Screen Have you noticed any changes with your vision? : No Advance Directives Advance Directives Advance Directives?: No Mini COG Mini-Cog (TM) Copyright Althea Joy (used by permission of the author) Remember FIRST word?: Yes Remember SECOND word?: Yes Remember THIRD word?: (!) No Clock Diagram correct?: (!) No Mini COG Total Score: 2 Health Risk Assessment Health Risk Assessment Flowsheet Row Patient response During the past four weeks, how much have you been bothered by emotional problems such as feeling anxious, depressed, irritable, sad, or downhearted and blue? Not at all at 10/18/2024 (more content not included)... Normal [facility] Interface Message Text Patient was identified by name and date of . Jeanie Perkins MA During this visit the vaccine(s) was: Administered Provider received consent from patient/parent/patient sales utility representative for immunization(s) as ordered, questionnaire completed and VIS educational handouts reviewed with patient/parent/patient sales utility representative who denies contraindications Double identification of patient completed with patient/parent/patient sales utility representative using name and prior to administration, and patient tolerated immunization(s) administration without incident. Normal [facility] Progress Noteson 10-16-2024 [employer] Authentication Interface Message Text Your blood counts, liver function, kidney function, thyroid function and cholesterol were normal. The hemoglobin A1c shows good control of blood sugar. The vitamin B12 levels and vitamin-D levels were good. Normal [facility] BASIC METABOLIC PANELon 03-0 Anion gap [Moles/Vol] 13 mmol/L Normal 10-20 [facility] Comment on above: Performed By: #### C H8, HEPATIC, HDL, PSA #### [facility] [address] [place] [address], Calcium [Mass/Vol] 9.0 mg/dL Normal 8.6-10.3 [facility] Comment on above: Performed By: #### C H8, HEPATIC, HDL, PSA #### [facility] [address] [place] [address], Chloride [Moles/Vol] 103 mmol/L Normal 98-107 [facility] Comment on above: Performed By: #### C H8, HEPATIC, HDL, PSA #### [facility] [address] [place] [address], CO2 [Moles/Vol] 28 mmol/L Normal 21-31 [facility] Comment on above: Performed By: #### C H8, HEPATIC, HDL, PSA #### [facility] [address] [place] [address], Creatinine [Mass/Vol] 0.68 mg/dL Low 0.70-1.30 [facility] Comment on above: Performed By: #### C H8, HEPATIC, HDL, PSA #### [facility] [address] [place] [address], ESTIMATED GFR (CKD-EPI) 103 mL/min/1.73sqm Normal >=60 [facility] Comment on above: Result Comment: 2020 CKD EPI Equation using Creatinine without Race Comment: Estimated glomerular filtration rate (eGFR) is calculated without a race coefficient. Values should be interpreted in the context of the patient's full clinical presentation. Reference: 1. Alejandro Sanchez, Meagan M, Carmen WILLOUGHBY, et al.. A Unifying Approach for GFR Estimation: Recommendations of the NKF-ASN Task Force on Reassessing the Inclusion of Race in Diagnosing Kidney Disease. [place] Journal of Kidney Diseases 2021;79(2):268-88.e1. 2. N Engl J Med 1 Vol. 385 Issue 19 Pages 9590-9768 Performed By: #### Daniel H8, HEPATIC, HDL, PSA #### [facility] [address] [place], [place], Glucose [Mass/Vol] 140 mg/dL High 74-109 [facility] Comment on above: Performed By: #### Daniel H8, HEPATIC, HDL, PSA #### [facility] [address] [place], [place], Potassium [Moles/Vol] 4.1 mmol/L Normal 3.5-5.0 [facility] Comment on above: Performed By: #### Daniel H8, HEPATIC, HDL, PSA #### [facility] [address] [place], [place], Sodium [Moles/Vol] 140 mmol/L Normal 136-145 [facility] Comment on above: Performed By: #### Daniel H8, HEPATIC, HDL, PSA #### [facility] [address] [place], [place], Urea nitrogen [Mass/Vol] 11 mg/dL Normal 7-25 [facility] Comment on above: Performed By: #### Daniel H8, HEPATIC, HDL, PSA #### [facility] [address] [place], [place], CBC WITH DIFFERENTIALon 03-0 -2024 Basophils (Bld) [#/Vol] 0.07 10*3/uL Normal 0.00-0.20 [facility] Comment on above: Performed By: #### C BCDSAT ####[facility] [id number] [place], [place], Basophils/100 WBC (Bld) 1.0 % Normal <=1.9 [facility] Comment on above: Performed By: #### C BCDSAT ####[facility] [id number] [place], [place], Eosinophils (Bld) [#/Vol] 0.22 10*3/uL Normal 0.00-0.70 [facility] Comment on above: Performed By: #### C BCDSAT ####[facility] [id number] [place], [place], Eosinophils/100 WBC (Bld) 3.3 % Normal 0.1-4.0 [facility] Comment on above: Performed By: #### C BCDSAT ####[facility] [id number] [place], [place], Erythrocyte distribution width (RBC) [Ratio] 17.1 % High 11.5-14.5 [facility] Comment on above: Performed By: #### C BCDSAT ####[facility] [id number] [place], [place], Hematocrit (Bld) [Volume fraction] 40.2 % Low 41.0-53.0 [facility] Comment on above: Performed By: #### C BCDSAT ####[facility] [id number] [place] [address], Hemoglobin (Bld) [Mass/Vol] 13.2 g/dL Low 13.9-16.3 The [facility] Comment on above: Performed By: #### C BCDSAT ####[facility] [id number] [place] [address], Lymphocytes (Bld) [#/Vol] 2.48 10*3/uL Normal 1.00-4.80 [facility] Comment on above: Performed By: #### C BCDSAT ####[facility] [id number] [place] [address], Lymphocytes/100 WBC (Bld) 36.5 % Normal 24.0-44.0 [facility] Comment on above: Performed By: #### C BCDSAT ####[facility] [id number] [place], [place], MCH (RBC) [Entitic mass] 25.6 pg Low 26.0-34.0 [facility] Comment on above: Performed By: #### C BCDSAT ####[facility] [id number] [place] [address], MCHC (RBC) [Mass/Vol] 32.9 g/dL Normal 32.0-35.9 [facility] Comment on above: Performed By: #### Daniel BORJAAT ####[facility] [id number] [place], [place], MCV (RBC) [Entitic vol] 78 fL Low 80-100 [facility] Comment on above: Performed By: #### Daniel BORJAAT ####[facility] [id number] [place] [address], Monocytes (Bld) [#/Vol] 0.81 10*3/uL Normal 0.20-1.00 [facility] Comment on above: Performed By: #### Daniel BORJAAT ####[facility] [id number] [place] [address], Monocytes/100 WBC (Bld) 12.0 % High 2.0-11.0 [facility] Comment on above: Performed By: #### Daniel BORJAAT ####[facility] [id number] [place] [address], Neutrophils (Bld) [#/Vol] 3.20 10*3/uL Normal 1.50-8.00 [facility] Comment on above: Performed By: #### Dainel BORJAAT ####[facility] [id number] [place] [address], Neutrophils/100 WBC (Bld) 47.2 % Normal 31.0-76.0 [facility] Comment on above: Performed By: #### Daniel BORJAAT ####[facility] [id number] [place] [address], Platelet mean volume (Bld) [Entitic vol] 8.4 fL Normal 7.5-11.2 [facility] Comment on above: Performed By: #### Daniel BORJAAT ####[facility] [id number] [place], [place], Platelets (Bld) [#/Vol] 302 10*3/uL Normal 150-400 [facility] Comment on above: Performed By: #### Daniel BORJAAT ####[facility] [id number] [place], [place], RBC (Bld) [#/Vol] 5.16 10*6/uL Normal 4.50-5.90 [facility] Comment on above: Performed By: #### C BCDSAT ####[facility] [id number] [place], [place], WBC (Bld) [#/Vol] 6.8 10*3/uL Normal 4.5-11.5 [facility] Comment on above: Performed By: #### C BCDSAT ####[facility] [id number] [place], [place], FULL LIPID PROFILEon 025 Cholesterol [Mass/Vol] 140 mg/dL Normal <200 The [facility] Comment on above: Result Comment: Lizette rable: < 200 mg/dL Borderline High: 200-239 mg/dL High: > = 240 mg/dL Performed By: #### C H8, HEPATIC, HDL, PSA ####[facility] [id number] [place] [address], Cholesterol in LDL [Mass/Vol] 88 mg/dL Normal <100 [facility] Comment on above: Performed By: #### C H8, HEPATIC, HDL, PSA ####[facility] [id number] [place] [address], Cholesterol.total/Cho lesterol in HDL [Mass ratio] 3.89 {ratio} Normal <5.00 [facility] Comment on above: Performed By: #### C H8, HEPATIC, HDL, PSA ####[facility] [id number] [place], [place], HDL CHOL 36 mg/dL Low >40 [facility] Comment on above: Performed By: #### C H8, HEPATIC, HDL, PSA ####[facility] [id number] [place] [address], LDL/HDL 2.44 Normal <3.57 [facility] Comment on above: Performed By: #### C H8, HEPATIC, HDL, PSA ####[facility] [id number] [place] [address], NON-HDL CHOLESTEROL 104 mg/dL Normal <130 [facility] Comment on above: Performed By: #### C H8, HEPATIC, HDL, PSA ####[facility] [id number] [place], [place], Triglyceride [Mass/Vol] 121 mg/dL Normal <150 [facility] Comment on above: Result Comment: Norm al: < 150 mg/dL Borderline High: 150-199 mg/dL High: 200-499 mg/dL Very High: > = 500 mg/dL Performed By: #### C H8, HEPATIC, HDL, PSA ####[facility] [id number] [place], [place], HEMOGLOBIN A1Con 10-14-2024 Glucose [Mass/Vol] 154 mg/dL Normal [facility] Comment on above: Performed By: #### H B A1C ####[facility] [address] [place], [place], HbA1c (Bld) [Mass fraction] 7.0 % High 4.0-5.6 [facility] Comment on above: Performed By: #### H B A1C ####[facility] [address] [place], [address] HEPATIC FUNCTION PANELon Albumin [Mass/Vol] 4.4 g/dL Normal 3.5-5.7 [facility] Comment on above: Performed By: #### C H8, HEPATIC, HDL, PSA #### [facility] [address] [place] [address], ALK 67 IU/L Normal 34-104 [facility] Comment on above: Performed By: #### C H8, HEPATIC, HDL, PSA #### [facility] [address] [place] [address], ALT [Catalytic activity/Vol] 23 U/L Normal 7-52 [facility] Comment on above: Performed By: #### C H8, HEPATIC, HDL, PSA #### [facility] [address] [place] [address], AST [Catalytic activity/Vol] 20 U/L Normal 13-39 [facility] Comment on above: Performed By: #### C H8, HEPATIC, HDL, PSA #### [facility] [address] [place] [address], Bilirubin [Mass/Vol] 0.9 mg/dL Normal 0.3-1.0 [facility] Comment on above: Performed By: #### C H8, HEPATIC, HDL, PSA #### [facility] [address] [place] [address], Bilirubin.direct [Mass/Vol] 0.17 mg/dL Normal 0.03-0.18 [facility] Comment on above: Performed By: #### C H8, HEPATIC, HDL, PSA #### [facility] [address] [place] [address], Protein [Mass/Vol] 6.8 g/dL Normal 6.0-8.3 [facility] Comment on above: Performed By: #### C H8, HEPATIC, HDL, PSA #### [facility] [address] [place] [address], MICROALBUMIN, URINEon 2024 Albumin DL <= 20 mg/L (U) [Mass/Vol] mg/dL Normal [facility] Comment on above: Order Comment: Note updated reference ranges. Performed By: #### U R MA #### [facility] [address] [place] [address], CREATININE, URINE 58 mg/dL Normal [facility] Comment on above: Order Comment: Note updated reference ranges. Performed By: #### U R MA #### [facility] [address] [place] [address], MICRO-ALBUMIN/CREAT RATIO < 12 Normal <=30 [facility] Comment on above: Order Comment: Note updated reference ranges. Performed By: #### U R MA #### [facility] [address] [place] [address], Progress Noteson 10-14-2024 [employer] Authentication Interface Message Text Identity was confirmed by verifying patient name and date of . Blood drawn for patient. Blood obtained from right arm, using 21 gauge butterfly. Patient denies discomfort, bleeding controlled, bandage applied. Site appears normal. Urine sample obtained, placed in proper tube for transportation to lab for processing. Normal [facility] TSHon 10-14-2024 TSH 1.035 uIU/mL Normal 0.450-5.330 [facility] Comment on above: Performed By: #### T SH HS, VITB12 #### [facility] [address] [place] [address], VITAMIN B12 (CYANOCOBALAMIN) on 10-14-2024 Cobalamin (Vitamin B12) [Mass/Vol] 1591 pg/mL High 180-914 [facility] Comment on above: Order Comment: Defic ient: <= 145 pg/mL Insufficient: 145 - 180 pg/mL Sufficient: 180 - 914 pg/mL Performed By: #### T SH HS, VITB12 #### [facility] [address] [place] [address], VITAMIN D, 25-HYDROXYon VITD25 43.2 ng/mL Normal 30-100 [facility] Comment on above: Order Comment: Defic ient : <20.0 ng/mL Insufficient : 20.0-29.9 ng/mL Sufficient : 30.0 - 100.0 ng/mL Potential Toxicity : >100.0 ng/mL Performed By: #### V ITD25 #### [facility] [address] [place] [address], Telephone Encounteron 2024 [employer] Authentication Interface Message Text Left message on patient's VM that lab orders have been placed and he can report to the office to have drawn. Nothing further needed at this time Normal [facility] Telephone Encounteron 2024 [employer] Authentication Interface Message Text Pt is scheduled for office visit with PCP on 10/18/24. Would like to have labs drawn prior to this appointment due to fasting restrictions, Please place orders in chart if appropriate and send [employer]vill[employer] message to patient advising he can come have drawn. Normal [facility] Telephone Encounteron 2024 [employer] Authentication Interface Message Text Lm on pt vm that appt is Cx. Asked for return call or go on [employer] to r/s. Also [facility]. Normal [facility] Surgery Visit Reporton 09-10 Surgery Visit Report [facility] [address] [place] [address] OFFICE VISIT Date of Service: 09/10/24 MR#: [id number] Acct: [id number] Name: ROBERTO OSBORN Rep #: [id number] : 1960 Provider: Dr. Bunny baig MD Age/Sex: 64/M Location: [facility] Status: Signed Intake Vital Signs 06/14/24 07:56 09/10/24 08:07 Height 5 ft 11 in 5 ft 11 in Weight: 251 lb 6 oz 248 lb 4 oz BMI 35.0 34.6 BP 130/70 H 142/86 H Blood Pressure Location Lt brachial Rt brachial Position Sitting Sitting Respiration 17 18 Pulse 85 82 Pulse Source Monitor Monitor Temp 98.4 F 97.2 F L Temp Source Temporal Temporal Pulse Oximetry (%) 97 98 Oxygen Delivery Method room air room air Intake Visit Reasons: POSSIBLE SPIGELIAN HERNIA Chief Complaint: possible spigelian hernia Is patient in pain?: Yes (LLQ discomfort ) Allergies codeine Adverse Reaction (Verified 09/10/24 08:08) Itching morphine Adverse Reaction (Verified 06/14/24 08:00) Itching Medications ???Medication ???Instructions ???Recorded ???Confirmed ???Type amlodipine 10 mg-benazepril 20 mg 1 cap PO QDAY 06/14/24 09/10/24 H istory capsule esomeprazole magnesium 40 mg 40 mg PO QDAY 06/14/24 09/10/24 Hi story capsule,delayed release gabapentin 600 mg tablet 600 mg PO TID 06/14/24 09/10/24 Hi story isotretinoin 40 mg capsule 40 mg PO BID 06/14/24 09/10/24 His tory metformin 500 mg tablet 500 mg PO BID 06/14/24 09/10/24 Hi story rosuvastatin 10 mg tablet 10 mg PO QDAY 06/14/24 09/10/24 Hi story umeclidinium 62.5 mcg-vilanterol 1 inh inhalation QDAY 06/14/24 History 25 mcg/actuation powdr for inhalation (Anoro Ellipta) Have you fallen in the past year?: No [facility] Medical History (Updated 09/10/24 @ 08:[address] Bunny Mahoney MD) Abdominal wall asymmetry Spigelian hernia Fusion 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 Surgical History History of left knee replacement Hx of tonsillectomy Previous back surgery Family History Mother No problems noted. Father , 47 yrs old Myocardial infarction Social History current occupational status: retired Smoking Status: Former smoker quit date: 08/11/09 alcohol intake: current details: seldom caffeine: No do you feel safe at home: Yes HPI HPI HPI: The patient is a 64-year-old male who is being seen today for a left sided abdominal bulge. He stated that he first noticed this a couple months ago. Patient brought this to the attention of his PCP who then ordered a CT scan. The CT scan was negative for any evidence of hernia or other subcutaneous mass. Patient denies any specific pain per se. He states that there is some mild discomfort at times. He presents today for evaluation to determine if this is a hernia versus other type of subcutaneous mass. ROS General General: No weight change, appetite, fatigue, colon cancer, breast cancer or weakness HEENT HEENT: No difficulty swallowing, eye injury, eye surgery, swollen glands or hoarseness Endo Endocrine: Yes diabetes mellitus; No thyroid disease, thyroid cancer, Hair loss, heat intolerance or cold intolerance Skin Skin: No rash or changing moles Musc Musculoskeletal: Yes back problems, arthritis and rheumatoid arthritis; No gout or joint pain Cardio Cardiovascular: Yes high blood pressure; No murmur, pacemaker, heart disease, atrial fibrillation, heart attack, heart stent, palpitations, shortness of breat with exertion or chest pain Psych Psychiatric: No depression, anxiety or hearing voices Resp Respiratory: Yes shortness of breath, No sleep apnea, No cough, No COPD, No asthma, No emphysema and No wheezing Gastro Gastrointestinal: Yes abdominal pain, No nausea or vomiting, No diarrhea, No constipation, No blood in stool, Yes acid reflux, No hemorrhoids, No ulcers, No gallbladder problem and No black,tarry stools Elvis Hematologic: Yes blood thinners, No blood disorders, No bleeding, No anemia and No blood clots Additional Details: 81 mg aspirin Neuro Neurologic: No numbness, No tingling and No weakness Exam Const General: cooperative, healthy appearing, comfortable and no acute distress [facility] Head: normal to inspection, normocephalic and atraumatic Eyes General: appearance normal, both eyes and all related structures Neck Neck: normal visual inspection GI Other: Abdomen is soft, nontender and nondistended. Examination of the left lateral abdomen near the waistline does reveal some asymmetric swelling compared to the right. I really do not appreciate any obvious dorcas (more content not included)... Normal [facility] Telephone Encounteron 2024 [employer] Authentication Interface Message Text Situation: calling asking for images of CT to be forwarded to their office. Background: na Assessment: na Recommendation: provided with number to medical records and call was transferred [phone] Normal [facility] Progress Noteson 09-06-2024 [employer] Authentication Interface Message Text HPI: Roberto is here today as the lump on the left lower quadrant of the abdomen has gotten bigger and more tender. I reviewed the images of the CT of the abdomen pelvis. No specific explanation for the mass is apparent. Does have asymptomatic gallstones. We discussed that the likelihood of conversion to being symptomatic is proximally 2 percent humidified only per year. We discussed that this is possibly a post shingles complication which rarely affects the motor nerves. Also discussed the possibility abdominal wall hernia such as a spigelian hernia however this seems a bit lateral for that. Will refer for surgical consult for their opinion. Chief Complaint Patient presents with Abdominal mass Lump on side got bigger and uncomfortable Roberto Law PCP is Timothy Correa MD Patient was identified by name and date of . Timothy Correa MD Subjective: Vitals Recorded in This Encounter 09/06/2024 1117 09/06/2024 1122 BP: 141/83 126/72 Pulse: 76 -- BP position: sitting sitting Resp: 16 -- Temp: 98.2 ???F (36.8 ???C) -- Temp src: Temporal -- SpO2: 97 % -- Weight: 248 lb 2 oz (112.5 kg) -- Height: 5' 11 (1.803 m) -- Pain Score: 1 -- Pain Loc: ABDOMEN -- Patient Active Problem List: Allergic rhinitis [J30.9] Degenerative arthritis of knee [M17.9] Encounter for long-term (current) use of medications [Z79.899] Essential hypertension, benign [I10] Gait abnormality [R26.9] GERD (gastroesophageal reflux disease) [K21.9] Spinal stenosis of lumbar region [M48.061] Type 2 diabetes mellitus without complication, without long-term current use of insulin (HCC) [E11.9] Pure hypercholesterolemia [E78.00] Chronic pain of right knee [M25.561, G89.29] Health Maintenance Topic Date Due CRC Screening Never done Shingles (RZV) Vaccine (1 of 2) Never done Pneumococcal Vaccine(s) (65+ yrs) (2 of 2 - PCV) 03/22/2018 Hemoglobin A1C 04/05/2024 Influenza Vaccine (1) 04/11/2024 COVID-19 Vaccine (3 - season) 2024 Welcome to Medicare Visit (G0402) Never done Urine Protein (microalbumin) 10/06/2024 Lipid Profile 10/06/2024 Eye Exam 10/06/2024 Basic Metabolic Panel 10/06/2024 Foot Exam 10/06/2024 Prostate Cancer Screening (shared decision making) 10/06/2024 Tetanus (Td or Tdap) Booster 12/07/2025 RSV vaccine (adult) (1 - 1-dose 75+ series) 2034 Hepatitis C Antibody Completed Tdap Booster Completed Abdominal Aortic Aneurysm Imaging Completed Vitamin B12 Discontinued Hepatitis A (HAV) Vaccine (optional start 19+ years) Discontinued Hepatitis B (HBV) Vaccine (optional start 60+ years) Discontinued Current Outpatient Medications Medication Sig Dispense Refill metFORMIN (GLUCOPHAGE) 500 MG tablet TAKE 1 TABLET TWICE A DAY WITH MEALS 180 Tablet 3 amlodipine-benazepril (LOTREL) 10-20 MG per capsule TAKE 1 CAPSULE DAILY 90 Capsule 3 rosuvastatin (CRESTOR) 10 MG tablet TAKE 1 TABLET DAILY 90 Tablet 3 disability placard expires 10/07/2028 1 Each 0 esomeprazole (NEXIUM) 40 MG capsule TAKE 1 CAPSULE DAILY 30 MINUTES BEFORE BREAKFAST 90 Capsule 3 Anoro Ellipta 62.5-25 MCG/ACT AEPB inhalation powder USE 1 INHALATION DAILY 120 Each 5 tadalafil (CIALIS) 20 MG tablet Take 1 Tablet by mouth as needed for Erectile Dysfunction. 30 minutes prior to anticipated sexual activity as one single dose and not more than once daily. 30 Tablet 5 Aspirin Low Dose 81 MG tablet Take 81 mg by mouth 2 times daily. docusate sodium (COLACE) 100 MG capsule TAKE 1 CAPSULE BY MOUTH TWICE DAILY NEEDED FOR CONSTIPATION Acetaminophen Extra Strength 500 MG tablet Take 1,000 mg by mouth every 8 hours as needed. vitamin C (ASCORBIC ACID) 500 MG tablet TAKE 1 TABLET BY MOUTH TWICE DAILY WITH MEALS FOR 27 DOSES baclofen (LIORESAL) 10 MG tablet Take 10 mg by mouth every 8 hours as needed. (Patient not taking: Reported on 09/06/2024) No current facility-administered medications for this visit. Review of Systems Physical Exam Vitals and nursing note reviewed. Abdominal: Comments: There is a compressible mass in the left lower quadrant of the abdomen. There appears to be bowel sounds within. Assessment and Plan: Roberto was seen today for abdominal mass. Diagnoses and all orders for this visit: [facility] abdominal mass - EXTERNAL SERVICE REQUEST FOR CARE OUTSIDE THE [facility] SYSTEM Normal [facility] [employer] Authentication Interface Message Text Patient was identified by name and date of . Jeanie Perkins MA Normal [facility] CT ABDOMEN/PELVIS W/O CONTRA STon 08-20-2024 CT ABDOMEN/PELVIS W/O CONTRAST EXAMINATION: CT ABDOMEN/PELVIS W/O CONTRAST 08/19/2024 01:57 PM CLINICAL HISTORY: Abdominal mass, neoplasm suspected ASSOCIATED DIAGNOSIS: [facility] abdominal mass ORDERING PROVIDER: TIMOTHY CORREA TECHNOLOGISTS NOTE: COMPARISON: None TECHNIQUE: Contiguous axial images were obtained through the abdomen and pelvis from the level of the diaphragmatic domes through the pubic symphysis. MPR sagittal and coronal reconstructions were obtained from the axial data. INTRA-PROCEDURE MEDS: FINDINGS: Included images of the lower thorax: Bandlike opacity within the lingula likely reflect atelectasis and/or scarring. No focal lung consolidation or pleural effusion. Hepatobiliary: Within limits of noncontrast imaging of the liver parenchyma, no focal suspicious hepatic lesion is present. Cholelithiasis. No CT findings to suggest acute cholecystitis. There is no biliary dilatation. Pancreas: Unremarkable Spleen: Granulomatous calcifications are present within the spleen. Adrenal Glands: Unremarkable Kidneys, ureters, and bladder: No calculi or hydroureteronephrosis. Nonspecific circumferential thickening of the urinary bladder which could be reflective of incomplete distention. Abdominal and pelvic vasculature: Atherosclerotic wall calcifications are present without aneurysm. GI tract: No evidence of obstruction. The appendix is within normal limits. Peritoneum and retroperitoneum: No free fluid or free air. Lymph Nodes: No abdominal or pelvic lymphadenopathy. Prostate and seminal vesicles: Unremarkable Visualized musculoskeletal structures: Post surgical changes related to L3-L4 and L4-L5 laminectomy with intervertebral disc degeneration and/ disc phenomenon. No acute fracture or destructive osseous lesion. IMPRESSION: 1. No acute process. 2. Cholelithiasis. 3. Other ancillary findings as noted above. MACRO: None Normal [facility] Progress Noteson 08-16-2024 [employer] Authentication Interface Message Text HPI: Roberto presents left low quadrant abdominal pain which is colicky in nature. As this has been persistent for a period of several weeks and as the exam shows fullness in the left lower quadrant of the abdomen CT scan was ordered. Normal bowel movements. No fever chills. No urinary symptoms. Chief Complaint Patient presents with Abdominal pain Left lower abdominal pain, wraps around waist to lower back Roberto Law PCP is Timothy Correa MD Patient was identified by name and date of . Timothy Correa MD Subjective: Vitals Recorded in This Encounter 08/16/2024 1021 BP: 129/77 Pulse: 82 Resp: 16 Temp: 98.6 ???F (37 ???C) SpO2: 97 % Pain Score: 2 Pain Loc: ABDOMEN Patient Active Problem List: Allergic rhinitis [J30.9] Degenerative arthritis of knee [M17.9] Encounter for long-term (current) use of medications [Z79.899] Essential hypertension, benign [I10] Gait abnormality [R26.9] GERD (gastroesophageal reflux disease) [K21.9] Spinal stenosis of lumbar region [M48.061] Type 2 diabetes mellitus without complication, without long-term current use of insulin (HCC) [E11.9] Pure hypercholesterolemia [E78.00] Chronic pain of right knee [M25.561, G89.29] Health Maintenance Topic Date Due CRC Screening Never done Shingles (RZV) Vaccine (1 of 2) Never done RSV vaccine (adult) (1 - Risk 60-74 years 1-dose series) Never done Influenza Vaccine (1) 04/11/2024 COVID-19 Vaccine (3 - 2023- season) 2024 Hemoglobin A1C 04/16/2025 Urine Protein (microalbumin) 10/14/2025 Lipid Profile 10/14/2025 Basic Metabolic Panel 10/14/2025 Prostate Cancer Screening (shared decision making) 10/14/2025 Eye Exam 10/18/2025 Foot Exam 10/18/2025 Tetanus (Td or Tdap) Booster 12/07/2025 Hepatitis C Antibody Completed Tdap Booster Completed Abdominal Aortic Aneurysm Imaging Completed Welcome to Medicare Visit (G0402) Completed Pneumococcal Vaccine(s) (50+ yrs) Completed Vitamin B12 Discontinued Hepatitis A (HAV) Vaccine (optional start 19+ years) Discontinued Hepatitis B (HBV) Vaccine (optional start 60+ years) Discontinued Current Outpatient Medications Medication Sig Dispense Refill tadalafil (CIALIS) 20 MG tablet Take 1 Tablet by mouth as needed for Erectile Dysfunction. 30 minutes prior to anticipated sexual activity as one single dose and not more than once daily. 30 Tablet 5 minoxidil (LONITEN) 2.5 MG tablet Take 1 Tablet by mouth daily. 90 Tablet 3 tirzepatide (MOUNJARO) 2.5 MG/0.5ML pen Inject 2.5 mg under the skin once weekly. 2 mL 3 zoster vac recomb adjuvanted (SHINGRIX) 50 MCG/0.5ML SUSR injection Inject 0.5 mL into the muscle once. esomeprazole (NEXIUM) 40 MG capsule TAKE 1 CAPSULE DAILY 30 MINUTES BEFORE BREAKFAST 90 Capsule 3 metFORMIN (GLUCOPHAGE) 500 MG tablet TAKE 1 TABLET TWICE A DAY WITH MEALS 180 Tablet 3 amlodipine-benazepril (LOTREL) 10-20 MG per capsule TAKE 1 CAPSULE DAILY 90 Capsule 3 rosuvastatin (CRESTOR) 10 MG tablet TAKE 1 TABLET DAILY 90 Tablet 3 disability placard expires 10/07/2028 1 Each 0 Anoro Ellipta 62.5-25 MCG/ACT AEPB inhalation powder USE 1 INHALATION DAILY 120 Each 5 Acetaminophen Extra Strength 500 MG tablet Take 1,000 mg by mouth every 8 hours as needed. No current facility-administered medications for this visit. Review of Systems Physical Exam Vitals and nursing note reviewed. Constitutional: General: He is not in acute distress. Appearance: Normal appearance. He is not ill-appearing or toxic-appearing. HENT: Head: Normocephalic. Right Ear: Tympanic membrane, ear canal and external ear normal. Left Ear: Tympanic membrane, ear canal and external ear normal. Nose: Nose normal. No congestion or rhinorrhea. Mouth/Throat: Pharynx: Oropharynx is clear. No oropharyngeal exudate or posterior oropharyngeal erythema. Eyes: General: Right eye: No discharge. Left eye: No discharge. Extraocular Movements: Extraocular movements intact. Conjunctiva/sclera: Conjunctivae normal. Pupils: Pupils are equal, round, and reactive to light. Neck: Vascular: No carotid bruit. Cardiovascular: Rate and Rhythm: Normal rate and regular rhythm. Pulses: Normal pulses. Heart sounds: Normal heart sounds. No murmur heard. Pulmonary: Effort: Pulmonary effort is normal. Breath sounds: Normal breath sounds. Abdominal: General: Abdomen is flat. Bowel sounds are normal. There is no distension. Palpations: Abdomen is soft. There is mass (fullness in the left lower quadrant of the abdomen.). Tenderness: There is abdominal tenderness (Left lower quadrant of the abdomen). There is no right CVA tenderness or left CVA tenderness. Musculoskeletal: General: No swelling, tenderness or deformity. Cervical back: Normal range of motion and neck supple. No muscular tenderness. Right lower leg: No edema. Left lower leg: No edema. Lymphadenopathy: Cervical: No cervical adenopathy. Skin: General: Skin is warm an (more content not included)... Normal [facility] [employer] Authentication Interface Message Text Identification was verified by patient verbalizing his name and date of . Normal [facility] [employer] Authentication Interface Message Text Patient was identified by name and date of . HARVINDER Miller/MPA Normal [facility] Neurology Visit Reporton Neurology Visit Report [facility] [address], [address] [place] [id number] OFFICE VISIT Date of Service: 06/14/24 MR#: [id number] Acct: [id number] Name: ROBERTO OSBORN Rep #: [id number] : 1960 Provider: Dr. Adryan angel MD Age/Sex: 64/M Location: [facility] Status: Signed HPI HPI Chief Complaint: Establish Care Details: The patient is a 64-year-old right handed male who presents to [facility]. He self referred for left leg pain due to lower back pain. He had EMG/NCS done 03/2024 that revealed polyneuropathy. He has been seeing [facility] for this as well, was taking lyrica, however at March appointment the plan was to switch him to gabapentin. This gentleman presents by himself for evaluation. Patient seen by me and nurse practitioner Jessenai. Patient is able to provide information on his own behalf. Outside records were also available for review. This includes the emergency department filed on 09/24/2023 as well as records from [facility], [facility] where he has been receiving treatment for chronic low back pain. Record indicates patient has had 3 back surgeries. Most recently at L3-4-5 and S1 with fusions that took place at [facility] on 09/09/2023. Patient has also received interventional treatments with back injections and facet injections from [facility]. Patient's current medications include gabapentin 600 mg 3 times daily, as open Shivam no children, metformin, lovastatin, Anoro elliptica inhalation, amlodipine BenzePrO 10/20 daily. Is also on esomeprazole magnesium and metformin. Patient notes that his current status with regard to back pain has been improved. His primary complaint at this time is left foot pain and tingling. He has had an EMG and nerve conduction study completed in March 2024 that indicates that he has a peripheral neuropathy which appears to be primarily sensory. Patient may also have some early degeneration of muscle. He ranks his current pain between 2 over 10-5/10. It is located in the foot. It is exacerbated by being up and ambulating and improves when he lays down and elevates his foot. He does have some minor grade 1 pitting edema that develops through the day likely due to relative venous insufficiency. Does not particularly have any cardiac or hepatic problems which would contribute to this. Patient's ambulation shows a tends to walk favoring the right leg. He has had prior orthopedic surgery on both knees which has been a good result. His only other indication of possible abnormality is carpal tunnel may have been released on the left wrist. He likely has a pre-existing polyneuropathy with potential entrapment syndromes. He is currently taking B12 and vitamin D. Patient has used a TENS unit prior to back surgeries in the past. He notes that it has been helpful to him but once he began having increased back pain surgical therapy was required and he has not used the TENS unit for some time. Patient is currently not in physical therapy at this time. Patient is currently not on narcotics. OARRS has been reviewed by nurse practitioner today. ROS General Patient denies fever malaise HEENT denies headache head injury loss of vision or loss of hearing Respiratory no respiratory difficulties no hemoptysis. Cardiac no chest pain or palpitations Abdomen does not vomit blood past blood in stool. No abdominal discomfort no hematuria Extremities as listed in HPI Skin no rashes Patient is prone to mild venous insufficiency. Exam Const Other: Blood pressure 130/78 pulse 85 respiration 17 temperature 98.4 O2 sat 97%. General appearance well-developed male BMI 35%. No acute distress appears calm HEENT normocephalic. Conjunctiva clear Respiratory clear to auscultation Cardiac normal heart sounds regular rhythm no murmur Abdomen obese nontender Extremities with mild edema of both ankles I would say +1 pitting Skin clear on exposed areas. Neurologic examination Mental status: Awake alert oriented x 3. Memory intact. Lungs show normal center receptionist expression repetition. Insight and judgment appear to be adequate. Patient denies depression or anxiety. States that he came for second opinion. CN II-XII: Pupils equal round reactive visual basurto full. Extraocular muscles show very minimal horizontal end gaze nystagmus on lateral gaze. Likely physiologic symmetric facial sensation expression. Hearing intact using tuning fork testing. Oropharynx benign. Tongue midline. Able to swallow. Normal vocalization. Motor examination upper extremities show good strength. No atrophy's or weakness observed. Cerebellar testing showed normal finger-nose maneuvers. No cogwheeling rigidity tremor or bradykinesia. Reflexes trace at biceps and absent at knees. Toes show withdrawal. Sensory exam showed patient had what appeared to be normal response to t (more content not included)... Normal [facility].doppler Lower extremity v ein - lefton 12-16-2023 EXAMINATION: US LEG LEFT VENOUS + DOPPLERPRO/LT 12/16/2023 10:43 AM CLINICAL HISTORY: lt leg swelling and pain, recent surgery ASSOCIATED DIAGNOSIS: Left leg swelling ORDERING PROVIDER: TIMOTHY CORREA TECHNOLOGISTS NOTE: Per pt pain and swelling for about 3 weeks, swelling has gotten a little better; had back surgery in August 2023. COMPARISON: None TECHNIQUE: Ultrasound real time scan with image documentation using a combination of pulsed Doppler, color Doppler, and compression B scale techniques, the deep venous system of the left lower extremity was studied from the external iliac through to and including the popliteal and calf veins. FINDINGS: VESSELS: External Iliac vein: Compressible with appropriate direction of flow, a normal waveform, and intact color Doppler flow. Common femoral vein: Compressible with appropriate direction of flow, a normal waveform, and intact color Doppler flow. Contralateral common femoral vein: Appropriate direction of flow, a normal waveform, and intact color Doppler flow. Proximal aspect of greater saphenous vein: Compressible with appropriate direction of flow, a normal waveform, and intact color Doppler flow. Femoral vein: Compressible with appropriate direction of flow, a normal waveform, and intact color Doppler flow. Deep femoral vein: Compressible with appropriate direction of flow, a normal waveform, and intact color Doppler flow. Popliteal vein: Compressible with appropriate direction of flow, a normal waveform, and intact color Doppler flow. Calf veins: Included veins are compressible with appropriate direction of flow and intact color Doppler flow. IMPRESSION: No left lower extremity deep venous thrombosis identified. MACRO: None RADIOLOGY Anson Levin MD - 12/16/2023 EXAMINATION: US LEG LEFT VENOUS + DOPPLERPRO/LT 12/16/2023 10:43 AM CLINICAL HISTORY: lt leg swelling and pain, recent surgery ASSOCIATED DIAGNOSIS: Left leg swelling ORDERING PROVIDER: TIMOTHY CORREA TECHNOLOGISTS NOTE: Per pt pain and swelling for about 3 weeks, swelling has gotten a little better; had back surgery in August 2023. COMPARISON: None TECHNIQUE: Ultrasound real time scan with image documentation using a combination of pulsed Doppler, color Doppler, and compression B scale techniques, the deep venous system of the left lower extremity was studied from the external iliac through to and including the popliteal and calf veins. FINDINGS: VESSELS: External Iliac vein: Compressible with appropriate direction of flow, a normal waveform, and intact color Doppler flow. Common femoral vein: Compressible with appropriate direction of flow, a normal waveform, and intact color Doppler flow. Contralateral common femoral vein: Appropriate direction of flow, a normal waveform, and intact color Doppler flow. Proximal aspect of greater saphenous vein: Compressible with appropriate direction of flow, a normal waveform, and intact color Doppler flow. Femoral vein: Compressible with appropriate direction of flow, a normal waveform, and intact color Doppler flow. Deep femoral vein: Compressible with appropriate direction of flow, a normal waveform, and intact color Doppler flow. Popliteal vein: Compressible with appropriate direction of flow, a normal waveform, and intact color Doppler flow. Calf veins: Included veins are compressible with appropriate direction of flow and intact color Doppler flow. IMPRESSION: No left lower extremity deep venous thrombosis identified. MACRO: None [facility] Rad[facility]narrative[facility] Lower [facility] v ein - leftOrdered By: Anson Levin on 12-16-2023 [facility] Work Phone: [phone] [employer] 09-24-2023 [employer] HNO ID: [id number] Author: GLADYS LAWRENCE RT(R) Service: ? Author Type: Supervisor Type Photography Type: Parking Panda Filed: 09/24/2023 09:27 Note Text: Radiology Service Progress Note DATE OF SERVICE: September 24, 2023 TIME: 9:26 AM PATIENT IDENTITY VERIFICATION COMPLETED USING TWO (2) STANDARD IDENTIFIERS: Name and Date of confirmed by patient verbally. FALL SCREENING: Has the patient had 2 falls in the last year or 1 fall with injury or currently using an Ambulatory Assistive Device (Walker, Cane, Wheelchair, Crutches, etc.)? Emergency Room Patient: Screened in ED PATIENT GENDER DATA: Male PATIENT RELEVANT IMPLANT DATA REVIEWED: Not Applicable PATIENT PRESENTS WITH AN IMPLANTABLE OR ATTACHED FOUNDATION RELATIONS DIRECTOR: No ALLERGIES: Reviewed and unchanged CONTRAST ALLERGY: NO. EXAM: CT -CONTRAST INDUCED NEPHROPATHY RISK FACTORS: Patient age > 60 years CREATININE: Creatinine Date Value Ref Range Status 09/24/2023 0.57 (L) 0.73 - 1.22 mg/dL Final 09/11/2022 0.54 (L) 0.73 - 1.22 mg/dL Final 08/16/2022 0.56 (L) 0.73 - 1.22 mg/dL Final Estimated Glomerular Filtration Rate Date Value Ref Range Status 09/24/2023 109 >=60 mL/min/1.73m? Final Comment: Estimated Glomerular Filtration Rate (eGFR) is calculated using the 2020 CKD-EPI creatinine equation. This equation utilizes serum creatinine, sex, and age as parameters. The creatinine assay has traceable calibration to isotope dilution-mass spectrometry. Refer to KDIGO guidelines for clinical interpretation. In patients with unstable renal function, e.g. those with acute kidney injury, the eGFR may not accurately reflect actual GFR. P.O.C.T. RESULTS: POC done: Yes, See Lab Tab September 24, 2023 TREATMENT: N/A PERIPHERAL IV DATA: Inpatient - refer to LDA documentation RADIOLOGY DEPARTMENT: CT; Exam(s) Completed: Spine SIGNATURE: RT Av(R) PATIENT NAME: Roberto Osborn DATE: September 24, 2023 TIME: 9:26 AM Normal [facility] Basic metabolic 2000 panelon 09-24-2023 Anion gap [Moles/Vol] 12 mmol/L Normal 9-18 [facility] Comment on above: Order Comment: Speci men Type: BLOOD SPECIMEN Ordering Facility: [facility] Address: [address] [place] [address] Performed By: #### 2 4321-2 #### [facility] CLIA [id number] [address] [place] [address] [place] Calcium [Mass/Vol] 9.3 mg/dL Normal 8.5-10.2 [facility] Comment on above: Order Comment: Emilyi men Type: BLOOD SPECIMEN Ordering Facility: [facility] Address: [address] [place] [address] Performed By: #### 2 4321-2 #### [facility] CLIA [id number] [address] [place] [address] [place] Chloride [Moles/Vol] 99 mmol/L Normal 97-105 [facility] Comment on above: Order Comment: Speci men Type: BLOOD SPECIMEN Ordering Facility: [facility] Address: [address] [place] [address] Performed By: #### 2 4321-2 #### [facility] CLIA [id number] [address] [place] [address] [place] CO2 [Moles/Vol] 25 mmol/L Normal 22-30 [facility] Comment on above: Order Comment: Speci men Type: BLOOD SPECIMEN Ordering Facility: [facility] Address: [address] [place] [address] Performed By: #### 2 4321-2 #### [facility] CLIA [id number] [address] [place] [address] [place] Creatinine [Mass/Vol] 0.57 mg/dL Low 0.73-1.22 [facility] Comment on above: Order Comment: Vera grant Type: BLOOD SPECIMEN Ordering Facility: [facility] Address: [address] [place] [address] Performed By: #### 2 4321-2 #### [facility] CLIA [id number] [address] [place] [address] [place] Creatinine and Glomerular filtration rate.predicted panel (S/P/Bld) 109 mL/min/1.73m??? Normal >=60 [facility] Comment on above: Order Comment: Vera juanita Type: BLOOD SPECIMEN Ordering Facility: [facility] Address: [address] [place] [address] Result Comment: Snehal mated Glomerular Filtration Rate (eGFR) is calculated using the 2020 CKD-EPI creatinine equation. This equation utilizes serum creatinine, sex, and age as parameters. The creatinine assay has traceable calibration to isotope dilution-mass spectrometry. Refer to KDIGO guidelines for clinical interpretation. In patients with unstable renal function, e.g. those with acute kidney injury, the eGFR may not accurately reflect actual GFR. Performed By: #### 2 4321-2 #### [facility] CLIA [id number] [address] [place] [address] [place] Glucose [Mass/Vol] 167 mg/dL High 74-99 [facility] Comment on above: Order Comment: Vera juanita Type: BLOOD SPECIMEN Ordering Facility: [facility] Address: [address] [place] [address] Result Comment: The [place] Diabetes Association (ADA) provides guidance for cutoff values for fasting glucose and random glucose. The ADA defines fasting as no caloric intake for at least 8 hours. Fasting plasma glucose results between 100 to 125 mg/dL indicate increased risk for diabetes (prediabetes). Fasting plasma glucose results greater than or equal to 126 mg/dL meet the criteria for diagnosis of diabetes. In the absence of unequivocal hyperglycemia, results should be confirmed by repeat testing. In a patient with classic symptoms of hyperglycemia or hyperglycemic crisis, random plasma glucose results greater than or equal to 200 mg/dL meet the criteria for diagnosis of diabetes. Reference: Standards of Medical Care in Diabetes 2016, [place] Diabetes Association. Diabetes Care. 2016.39(Suppl 1). Performed By: #### 2 4321-2 #### [facility] CLIA [id number] [address] [place] [address] [place] Potassium [Moles/Vol] 3.7 mmol/L Normal 3.7-5.1 [facility] Comment on above: Order Comment: Speci men Type: BLOOD SPECIMEN Ordering Facility: [facility] Address: [address] [place] [address] Performed By: #### 2 4321-2 #### [facility] CLIA [id number] [address] [place] [address] [place] [facility] Sodium [Moles/Vol] 136 mmol/L Normal 136-144 [facility] Comment on above: Order Comment: Emilyi men Type: BLOOD SPECIMEN Ordering Facility: [facility] Address: [address] [place] [address] Performed By: #### 2 4321-2 #### [facility] CLIA [id number] [address] [place] [address] [place] Urea nitrogen [Mass/Vol] 7 mg/dL Low 9-24 [facility] Comment on above: Order Comment: Speci men Type: BLOOD SPECIMEN Ordering Facility: [facility] Address: [address] [place] [address] Performed By: #### 2 4321-2 #### [facility] CLIA [id number] [address] [place] [address] [place] CBC panel Auto (Bld)on 09-24 Erythrocyte distribution width (RBC) [Ratio] 14.7 % Normal 11.5-15.0 [facility] Comment on above: Order Comment: Speci men Type: BLOOD SPECIMEN Ordering Facility: [facility] Address: [address] [place] [address] Performed By: #### 5 8410-2 #### [facility] CLIA [id number] [address] [place] [id number] [place] [address] [place] Hematocrit (Bld) [Volume fraction] 36.9 % Low 39.0-51.0 [facility] Comment on above: Order Comment: Speci men Type: BLOOD SPECIMEN Ordering Facility: [facility] Address: [address] [place] [address] Performed By: #### 5 8410-2 #### [facility] CLIA [id number] [address] [place] [address] [place] Hemoglobin (Bld) [Mass/Vol] 12.1 g/dL Low 13.0-17.0 [facility] Comment on above: Order Comment: Speci men Type: BLOOD SPECIMEN Ordering Facility: [facility] Address: [address] [place] [address] Performed By: #### 5 8410-2 #### [facility] CLIA [id number] [address] [place] [address] [place] MCH (RBC) [Entitic mass] 28.7 pg Normal 26.0-34.0 [facility] Comment on above: Order Comment: Speci men Type: BLOOD SPECIMEN Ordering Facility: [facility] Address: [address] [place] [address] Performed By: #### 5 8410-2 #### [facility] CLIA [id number] [address] [place], [place] [id number] [place] [address] [place] MCHC (RBC) [Mass/Vol] 32.8 g/dL Normal 30.5-36.0 [facility] Comment on above: Order Comment: Speci men Type: BLOOD SPECIMEN Ordering Facility: [facility] Address: [address] [place] [address] Performed By: #### 5 8410-2 #### [facility] CLIA [id number] [address] [place] [address] [place] MCV (RBC) [Entitic vol] 87.4 fL Normal 80.0-100.0 [facility] Comment on above: Order Comment: Speci men Type: BLOOD SPECIMEN Ordering Facility: [facility] Address: [address] [place] [address] Performed By: #### 5 8410-2 #### [facility] CLIA [id number] [address] [place] [address] [place] Platelet mean volume (Bld) [Entitic vol] 8.4 fL Low 9.0-12.7 [facility] Comment on above: Order Comment: Speci men Type: BLOOD SPECIMEN Ordering Facility: [facility] Address: [address] [place] [address] Performed By: #### 5 8410-2 #### [facility] CLIA [id number] [address] [place], [place] [id number] [place] [address] [place] Platelets (Bld) [#/Vol] 578 10*3/uL High 150-400 [facility] Comment on above: Order Comment: Speci men Type: BLOOD SPECIMEN Ordering Facility: [facility] Address: [address] [place] [address] Performed By: #### 5 8410-2 #### [facility] CLIA [id number] [address] [place] [address] [place] RBC (Bld) [#/Vol] 4.22 10*6/uL Normal 4.20-6.00 [facility] Comment on above: Order Comment: Speci men Type: BLOOD SPECIMEN Ordering Facility: [facility] Address: [address] [place] [address] Performed By: #### 5 8410-2 #### [facility] CLIA [id number] [address] [place] [address] [place] WBC (Bld) [#/Vol] 12.19 10*3/uL High 3.70-11.00 [facility] Comment on above: Order Comment: Speci men Type: BLOOD SPECIMEN Ordering Facility: [facility] Address: [address] [place] [address] Performed By: #### 5 8410-2 #### [facility] CLIA [id number] [address] [place] [address] [place] CT LUMBAR SPINE W IVCONon CT LUMBAR SPINE W IVCON * * *Final Report* * * DATE OF EXAM: Sep 24 2023 9:25AM [facility] 0012 - CT LUMBAR SPINE W IVCON / PROCEDURE REASON: Low back pain, prior surgery, new symptoms * * * * Physician Interpretation * * * * EXAMINATION: CT LUMBAR SPINE W IVCON CLINICAL HISTORY: Low back pain, prior surgery, new symptoms TECHNIQUE: Spiral, high resolution axial unenhanced images were obtained from the thoracolumbar junction to the sacrum with sagittal and coronal planar reconstructions. MQ: [id number] CT Radiation dose: Integrated Dose-Length Product (DLP) for this visit = 1272.61 mGy*cm. CT Dose Reduction Employed: Automated exposure control(AEC) and iterative recon COMPARISON: MRI 05/30/2021. RESULT: Counting reference: Lumbosacral junction. For the purposes of this report, L4-5 is considered the level of the iliac crest and assume there are 5 lumbar-type vertebrae. Anatomic variant: None. Corporate Sales Representative (topogram) images: No additional findings. Alignment: Very slight rightward curvature. Retrolisthesis at L3-4. Bone marrow /fracture: No evidence of a lytic or blastic process in the visualized spine. No evidence of acute or chronic fracture. Paraspinal soft tissues: Mildly enlarged right external iliac node on image 226 of series 3 which measures 12 mm in short axis. Left-sided node measures 9-10 mm. No prior exams available to assess for stability. Lower thoracic spine: The visualized lower thoracic bony canal and foramina are patent. Lumbar spine: Status post recent posterior fusion extending from L3 through S1 with stabilization rods and transpedicular screws. Spinal hardware is intact. There is diffuse infiltration of the overlying subcutaneous fat with cutaneous sylvain. Mild heterogeneity of the paraspinal musculature compatible with the recent surgery. Mild disc bulge at L2-3 with shortened pedicles causing mild stenosis of the central canal. Canal and foraminal evaluation is extremely limited at the postsurgical levels due to beam hardening artifact. Severe degenerative disc disease with vacuum disc phenomenon at L3-4 through L5-S1. There is lower lumbar facet joint arthrosis. IMPRESSION: 1. There is no obvious acute bony abnormality. 2. Degenerative and postsurgical changes at L3-4 through L5-S1. Extremely limited evaluation of the central canal and neural foramen at these levels due to beam hardening artifact. Follow-up with MRI with and without IV contrast if clinically indicated. 3. Mildly enlarged right external iliac node. 4. Mild disc bulge at L2-3 with central canal stenosis. Anatomic Lumbar Variant: None. L4-5 is considered the level of the iliac crest and assume there are 5 lumbar-type vertebrae. Digital Computer Systems Analyst: [facility] Transcribe Date/Time: Sep 24 2023 9:32A Dictated by : CISCO SCHWAB MD This examination was interpreted and the report reviewed and electronically signed by: CISCO SCHWAB MD on Sep 24 2023 9:45AM EST [id number] Normal [facility] ED NOTEon 09-24-2023 ED NOTE HNO ID: [id number] Author: RANJIT CALABRESE RN Service: Emergency Medicine Author Type: Registered Nurse Type: ED Notes Filed: 09/24/2023 10:42 Note Text: Results are back, pt resting in bed, at bedside, pt feeling better. Normal [facility] ED NOTE HNO ID: [id number] Author: RANJIT CALABRESE RN Service: Emergency Medicine Author Type: Registered Nurse Type: ED Notes Filed: 09/24/2023 08:51 Note Text: Post void bladder scan 288 mls, doctor Jose made aware. Normal [facility] ED NOTE HNO ID: [id number] Author: RANJIT CALABRESE RN Service: Emergency Medicine Author Type: Registered Nurse Type: ED Notes Filed: 09/24/2023 07:34 Note Text: Ice pack to lower back for pt comfort Normal [facility] ED NOTE HNO ID: [id number] Author: RANJIT CALABRESE RN Service: Emergency Medicine Author Type: Registered Nurse Type: ED Notes Filed: 09/24/2023 07:15 Note Text: Back fusion 09-09-2023, past 4 days have been having pain going down left leg Normal [facility] ED PROV NOTEon 09-24-2023 ED PROV NOTE HNO ID: [id number] Author: REECE COOPER MD Service: Emergency Medicine Author Type: Physician Type: ED Provider Notes Filed: 09/24/2023 11:06 Note Text: ED Provider Note Patient Name: Roberto Osborn SR : 1960 SERVICE DATE: 09/24/23 History Patient presents with: Back Pain Patient with history of chronic back pain, status post back surgery x 3, most recently at L3, 4, 5, S1 fusion at [facility] on 09/09/2023, presents to the emergency ferment with complaints of worsening left lower back, and left leg pain. Patient denies any new trauma or injury, no the pain started immediately after surgery and has been gradually worsening. Patient is taking oxycodone, 2 tabs 5:30 AM without any improvement in his symptoms. Spoke with his surgeon, was started on Lyrica which is not helping his discomfort either. Patient denies bowel bladder incontinence, or weakness. Patient notes exertion seems to make the pain worse. Denies fever, nausea or vomiting. No flulike symptoms. Symptoms improved with lying flat, bending his left leg and knee, worsened by ambulation, straightening his leg. Back Pain Location: Lumbar spine Quality: Stabbing Radiates to: L posterior upper leg Pain severity: Moderate Onset quality: Gradual Duration: 2 weeks Progression: Worsening Chronicity: Recurrent Worsened by: Movement and standing Associated symptoms: no abdominal pain, no bladder incontinence, no bowel incontinence, no dysuria, no fever, no numbness, no paresthesias, no pelvic pain, no perianal numbness, no tingling and no weakness PAST MEDICAL HISTORY Diagnosis Date Back pain Diabetes (HCC) GERD (gastroesophageal reflux disease) HTN (hypertension) Hypercholesteremia Osteoarthritis PAST SURGICAL HISTORY Procedure Laterality Date ARTHROSCOPY KNEE DIAGNOSTIC W/WO SYNOVIAL BX SPX 08/2008 Arthroscopy, knee right ARTHROSCOPY KNEE DIAGNOSTIC W/WO SYNOVIAL BX SPX 06/29/2013 Arthroscopy, knee left ARTHRP KNE CONDYLEANDPLATU MEDIALANDLAT COMPARTMENTS 08/09/2014 Knee replacement, total left BACK SURGERY HX lumbar december 2019 ORTHOPEDICS SURGERY HX PAST SURGICAL HISTORY OF ~1996 cervical fusion PAST SURGICAL HISTORY OF tonsils age 3 REVISE MEDIAN N/CARPAL TUNNEL SURG Left 10/26/2020 TOTAL KNEE REPLACEMENT Right 09/10/2022 FAMILY HISTORY Problem Relation Age of Onset Heart Father age 47- asphyxiated other (blood clot) Sister dvt No Known Problems Mother No Known Problems Brother Social History Tobacco Use Smoking status: Former Packs/day: 0.10 Years: 30.00 Additional pack years: 0.00 Total pack years: 3.00 Types: Cigarettes Quit date: 07/15/2013 Years since quittin.2 Smokeless tobacco: Never Vaping Use Vaping Use: Never used Substance and Sexual Activity Alcohol use: Not Currently Comment: not weekly Drug use: No Sexual activity: Not on file ALLERGIES Allergen Reactions Codeine Rash Morphine Hives Review of Systems Constitutional: Negative for fatigue and fever. Gastrointestinal: Negative for abdominal pain and bowel incontinence. Genitourinary: Negative for bladder incontinence, dysuria and pelvic pain. Musculoskeletal: Positive for back pain. Neurological: Negative for tingling, weakness, numbness and paresthesias. All other systems reviewed and are negative. Physical Exam Vitals BP Pulse Temp Temp src Resp SpO2 Weight Height 09/24/23 0715 09/24/23 0715 09/24/23 0734 -- 09/24/23 0715 09/24/23 0715 09/24/23 0715 09/24/23 0715 176/83 86 36.7 ?C (98 ?F) 16 97 % 108.9 kg (240 lb) 1.803 m (5' 11) Physical Exam Vitals and nursing note reviewed. Constitutional: General: He is not in acute distress. Appearance: Normal appearance. He is not ill-appearing or toxic-appearing. HENT: Head: Normocephalic and atraumatic. Eyes: General: Right eye: No discharge. Left eye: No discharge. Pulmonary: Effort: No respiratory distress. Abdominal: General: There is no distension. Tenderness: There is no abdominal tenderness. There is no right CVA tenderness, left CVA tenderness or guarding. Musculoskeletal: General: No swelling, tenderness or signs of injury. Right lower leg: No edema. Left lower leg: No edema. Skin: General: Skin is warm and dry. Comments: Patient has a midline lower back, lumbar, spinal incision that is well-healing, is 20 cm, the sylvain are intact, there is some scabbing of the surgical incision wound, however there is no concern for acute infectious process, there is no tenderness in this region, there is no fluctuance, there is no surrounding erythema, or surrounding streaking, there is no discharge Patient has intact perirectal sensation, he has equal lower extremity muscle strength, and sensation, he has negative left leg straight leg raise, however with this he has discomfort which seems to go around his entire thigh, there is intact plantarfle (more content not included)... Normal [facility] No Panel Informationon 07-20 IMPRESSION: No acute abnormality Digital Computer Systems Analyst: ENOCH Transcribe Date/Time: Jul 20 2023 1:19P Dictated by : JIHAN MIX MD This examination was interpreted and the report reviewed and electronically signed by: JIHAN MIX MD on Jul 20 2023 1:20PM [facility] No Panel InformationOrdered By: [facility] Provider on 07-20-2023 [facility] XR Hip - left AP and Lateral on 07-20-2023 * * *Final Report* * * DATE OF EXAM: Jul 18 2023 8:26AM [facility] - XR HIP 2V AP/ LAT LT / PROCEDURE REASON: M25.552-Pain in left hip * * * * Physician Interpretation * * * * PROCEDURE: Left hip and right knee INDICATION: Pain in left hip .LEFT HIP PAIN (accession [id number]), RIGHT KNEE PAIN (accession [id number]) TECHNIQUE: XR AP PELVIS, CROSSTABLE LATERAL LEFT HIP, XR KNEE 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 RT COMPARISON: Right knee 09/25/2022 FINDINGS: Left hip: Hip joint spaces are maintained. No femoral head collapse. Degenerative and postoperative change in the lower lumbar spine. Sacroiliac joints and symphysis pubis are maintained. Right knee: The total knee arthroplasty remains in satisfactory position without evidence for loosening. No periprosthetic fracture. Small joint effusion. 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 [facility] Provider, [facility] - 07/20/2023 * * *Final Report* * * DATE OF EXAM: Jul 18 2023 8:26AM [facility] - XR HIP 2V AP/ LAT LT / PROCEDURE REASON: M25.552-Pain in left hip * * * * Physician Interpretation * * * * PROCEDURE: Left hip and right knee INDICATION: Pain in left hip .LEFT HIP PAIN (accession [id number]), RIGHT KNEE PAIN (accession [id number]) TECHNIQUE: XR AP PELVIS, CROSSTABLE LATERAL LEFT HIP, XR KNEE 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 RT COMPARISON: Right knee 09/25/2022 FINDINGS: Left hip: Hip joint spaces are maintained. No femoral head collapse. Degenerative and postoperative change in the lower lumbar spine. Sacroiliac joints and symphysis pubis are maintained. Right knee: The total knee arthroplasty remains in satisfactory position without evidence for loosening. No periprosthetic fracture. Small joint effusion. 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 IMPRESSION IMPRESSION: No acute abnormality Digital Computer Systems Analyst: ENOCH Transcribe Date/Time: Jul 20 2023 1:19P Dictated by : JIHAN MIX MD This examination was interpreted and the report reviewed and electronically signed by: JIHAN MIX MD on Jul 20 2023 1:20PM [facility] XR Knee AP and Lateral and jean pierre 07-20-2023 * * *Final Report* * * DATE OF EXAM: Jul 18 2023 8:26AM [facility] - XR KNEE 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 RT / PROCEDURE REASON: M25.561-Right knee pain, unspecified chronicity * * * * Physician Interpretation * * * * PROCEDURE: Left hip and right knee INDICATION: Pain in left hip .LEFT HIP PAIN (accession [id number]), RIGHT KNEE PAIN (accession [id number]) TECHNIQUE: XR AP PELVIS, CROSSTABLE LATERAL LEFT HIP, XR KNEE 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 RT COMPARISON: Right knee 09/25/2022 FINDINGS: Left hip: Hip joint spaces are maintained. No femoral head collapse. Degenerative and postoperative change in the lower lumbar spine. Sacroiliac joints and symphysis pubis are maintained. Right knee: The total knee arthroplasty remains in satisfactory position without evidence for loosening. No periprosthetic fracture. Small joint effusion. 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 [facility] * * *Final Report* * * DATE OF EXAM: Jul 18 2023 8:26AM [facility] - XR KNEE 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 RT / PROCEDURE REASON: M25.561-Right knee pain, unspecified chronicity * * * * Physician Interpretation * * * * PROCEDURE: Left hip and right knee INDICATION: Pain in left hip .LEFT HIP PAIN (accession [id number]), RIGHT KNEE PAIN (accession [id number]) TECHNIQUE: XR AP PELVIS, CROSSTABLE LATERAL LEFT HIP, XR KNEE 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 RT COMPARISON: Right knee 09/25/2022 FINDINGS: Left hip: Hip joint spaces are maintained. No femoral head collapse. Degenerative and postoperative change in the lower lumbar spine. Sacroiliac joints and symphysis pubis are maintained. Right knee: The total knee arthroplasty remains in satisfactory position without evidence for loosening. No periprosthetic fracture. Small joint effusion. 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 IMPRESSION IMPRESSION: No acute abnormality Digital Computer Systems Analyst: PSCB Transcribe Date/Time: Jul 20 2023 1:19P Dictated by : JIHAN MIX MD This examination was interpreted and the report reviewed and electronically signed by: JIHAN MIX MD on Jul 20 2023 1:20PM [facility] CNOVon 07-18-2023 CNOV Office Visit (ORNA ) ROBERTO OSBORN SR ([id number]) 1960 M Date Time Provider Department 07/18/23 8:45 AM CHIKA CARPENTER During your visit today, we recorded the following information about you: Chika Carpenter MD 08/14/2023 7:[address] CARPENTER- POST-OP KNEE ======= Post-Op F/U Office Visit ======= Roberto Osborn SR presents today for a 10 months as a virtual post Person status post Right TKA. Post-operative re Covery was an MRI at the [facility]. Any questions thank you Patient's rating of condition: improving Comments: He is complaining of some left hip pain. Reports that it is present after long periods of standing and walking Does the Pt. still experience pain? PAIN EVALUATION 07/18/2023 0837 Pain Level: 4 Pain Location: Leg-Left Description: Aching Duration Amount of Time: -- ongoing Frequency: Continuous Intervention/Comfort measure: Medication Functional difficulties: Stair climbing Physical Therapy: Completed course of therapy Pain Medication: Non-narcotic Ambulating without assistance. Medications and Allergies reviewed and verified. ======= EXAM: ======= GEN: AANDO x3, NAD SKIN:Appropriate postop appearance Incision intact Incision well healed LeftKnee: ROM: Flexion/Extension:0 degrees to 120 degrees Pain with ROM:No Mal-alignment: No Effusion: None Non Tender to palpation of the medial , lateral , and patellofemoral joint line(s). Stability:Anterior/Post erior- Yes, stable and Varus/Valgus- Yes, stable Quad strength: normal HIP: range of motion no loss ROM No pain with passive range of motion of the hip internal/external rotation Straight leg raising negative NV: intact and Juan's negative ======= IMAGING: ======= Xrays: XR KNEE POST OP 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 RIGHT Narrative: * * *Final Report* * * DATE OF EXAM: Jul 18 2023 8:26AM ALFREDO 5209 - XR KNEE 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 RT / PROCEDURE REASON: M25.561-Right knee pain, unspecified chronicity * * * * Physician Interpretation * * * * PROCEDURE: Left hip and right knee INDICATION: Pain in left hip .LEFT HIP PAIN (accession [id number]), RIGHT KNEE PAIN (accession [id number]) TECHNIQUE: XR AP PELVIS, CROSSTABLE LATERAL LEFT HIP, XR KNEE 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 RT COMPARISON: Right knee 09/25/2022 FINDINGS: Left hip: Hip joint spaces are maintained. No femoral head collapse. Degenerative and postoperative change in the lower lumbar spine. Sacroiliac joints and symphysis pubis are maintained. Right knee: The total knee arthroplasty remains in satisfactory position without evidence for loosening. No periprosthetic fracture. Small joint effusion. 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 Impression: IMPRESSION: No acute abnormality Digital Computer Systems Analyst: PSYCHIATRIC Transcribe Date/Time: Jul 20 2023 1:19P Dictated by : JIHAN MIX MD This examination was interpreted and the report reviewed and electronically signed by: JIHAN MIX MD on Jul 20 2023 1:20PM EST XR HIP 2V AP/LAT LEFT (AK,FL,ME,UN) Narrative: * * *Final Report* * * DATE OF EXAM: Jul 18 2023 8:26AM ALFREDO 5279 - XR HIP 2V AP/ LAT LT / PROCEDURE REASON: M25.552-Pain in left hip * * * * Physician Interpretation * * * * PROCEDURE: Left hip and right knee INDICATION: Pain in left hip .LEFT HIP PAIN (accession [id number]), RIGHT KNEE PAIN (accession [id number]) TECHNIQUE: XR AP PELVIS, CROSSTABLE LATERAL LEFT HIP, XR KNEE 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 RT COMPARISON: Right knee 09/25/2022 FINDINGS: Left hip: Hip joint spaces are maintained. No femoral head collapse. Degenerative and postoperative change in the lower lumbar spine. Sacroiliac joints and symphysis pubis are maintained. Right knee: The total knee arthroplasty remains in satisfactory position without evidence for loosening. No periprosthetic fracture. Small joint effusion. 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 Impression: IMPRESSION: No acute abnormality Digital Computer Systems Analyst: PSCB Transcribe Date/Time: Jul 20 2023 1:19P Dictated by : JIHAN MIX MD This examination was interpreted and the report reviewed and electronically signed by: JIHAN MIX MD on Jul 20 2023 1:20PM EST ===== IMPRESSION/PLAN: ===== 63 year old male s/p Right TKA At normal post-operative stage of recovery. Left hip shows no evidence of significant osteoarthritis that would necessitate arthroplasty. Plan: 1. Continue range of motion/strengthening exercises 2. Continue total knee precautions including antibiotic prophylactic protocols 3. Follow-up for repeat clinical /radiographic evaluation in 5 years or sooner should he develop any new orthopedic problems Chika Carpenter MD Electronic (more content not included)... Normal [facility] No Panel Informationon 07-18 Radiology Study observation (narrative) [facility] XR HIP 2V AP/ LAT LTon 07-18 XR HIP 2V AP/ LAT LT * * *Final Report* * * DATE OF EXAM: Jul 18 2023 8:26AM ALFREDO 5279 - XR HIP 2V AP/ LAT LT / PROCEDURE REASON: M25.552-Pain in left hip * * * * Physician Interpretation * * * * PROCEDURE: Left hip and right knee INDICATION: Pain in left hip .LEFT HIP PAIN (accession [id number]), RIGHT KNEE PAIN (accession [id number]) TECHNIQUE: XR AP PELVIS, CROSSTABLE LATERAL LEFT HIP, XR KNEE 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 RT COMPARISON: Right knee 09/25/2022 FINDINGS: Left hip: Hip joint spaces are maintained. No femoral head collapse. Degenerative and postoperative change in the lower lumbar spine. Sacroiliac joints and symphysis pubis are maintained. Right knee: The total knee arthroplasty remains in satisfactory position without evidence for loosening. No periprosthetic fracture. Small joint effusion. 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 IMPRESSION: No acute abnormality Digital Computer Systems Analyst: PSCB Transcribe Date/Time: Jul 20 2023 1:19P Dictated by : JIHAN MIX MD This examination was interpreted and the report reviewed and electronically signed by: JIHAN MIX MD on Jul 20 2023 1:20PM EST [id number] [facility] XR KNEE 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 R Ton 07-18-2023 XR KNEE 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 RT * * *Final Report* * * DATE OF EXAM: Jul 18 2023 8:26AM ALFREDO 5209 - XR KNEE 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 RT / PROCEDURE REASON: M25.561-Right knee pain, unspecified chronicity * * * * Physician Interpretation * * * * PROCEDURE: Left hip and right knee INDICATION: Pain in left hip .LEFT HIP PAIN (accession [id number]), RIGHT KNEE PAIN (accession [id number]) TECHNIQUE: XR AP PELVIS, CROSSTABLE LATERAL LEFT HIP, XR KNEE 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 RT COMPARISON: Right knee 09/25/2022 FINDINGS: Left hip: Hip joint spaces are maintained. No femoral head collapse. Degenerative and postoperative change in the lower lumbar spine. Sacroiliac joints and symphysis pubis are maintained. Right knee: The total knee arthroplasty remains in satisfactory position without evidence for loosening. No periprosthetic fracture. Small joint effusion. 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 IMPRESSION: No acute abnormality Digital Computer Systems Analyst: PSCMayra Transcribe Date/Time: Jul 20 2023 1:19P Dictated by : JIHAN MIX MD This examination was interpreted and the report reviewed and electronically signed by: JIHAN MIX MD on Jul 20 2023 1:20PM EST [id number] [facility] ROBERTO OSBORN SR ([id number]) 1960 M Date Time Provider Department 06/16/23 CHIAK CARPENTER During your visit today, we recorded the following information about you: Eda Castellanos 06/16/2023 8:46 AM Signed Please reschedule Roberto' appt to 06/20/23 at 11am and leave a message on the home phone to let them know per spouse Lien. Allergies As of Date: 06/16/2023 Noted Allergy Reaction CODEINE 07/18/2021 2 - Rash MORPHINE 10/26/2020 4 - Hives Date Reviewed: 05/30/2023 Reviewed by: Chika Carpenter MD - Fully Assessed Reason for Visit: Appointment [186] Prescriptions as of 06/26/2023 - meloxicam (MOBIC) 7.5 mg tablet Take 1 tablet by mouth once daily. - acetaminophen (TYLENOL) 500 mg tablet Take 2 tablets by mouth every 8 hours as needed for pain. - ascorbic acid, vitamin C, (VITAMIN C) 500 mg tablet Take 1 tablet by mouth twice daily with meals for 27 doses. - aspirin, enteric coated (ASPIRIN, ENTERIC COATED) 81 mg EC tablet Take 1 tablet by mouth twice daily for 28 days. - metFORMIN (GLUCOPHAGE) 500 mg tablet Take 500 mg by mouth twice daily with meals. - albuterol HFA (PROVENTIL HFA, VENTOLIN HFA) 90 mcg/actuation inhaler Inhale 2 Puffs as instructed. - umeclidinium-vilanterol (ANORO ELLIPTA) 62.5-25 mcg/actuation inhaler Inhale 1 Puff as instructed once daily as needed (shortness of breath). - AMLODIPINE-BENAZEPRIL 10-20 mg per capsule Take 1 capsule by mouth once daily. - NEXIUM 40 mg capsule Take 40 mg by mouth once daily. - CRESTOR 10 mg tablet Take 10 mg by mouth once daily. Meds Comments as of 09/12/2022: no interactions 2-2. Problem List As Of Date 06/16/2023 Noted Resolved HTN (hypertension) [I10] 06/11/2013 Lateral meniscal tear [S83.289A] 07/12/2013 Medial meniscus tear [S83.249A] 07/12/2013 Knee pain [M25.569] 04/08/2014 Degenerative arthritis of knee [M17.9] 04/08/2014 GERD (gastroesophageal reflux disease) [K21.9] 07/29/2014 Knee pain, left [M25.562] 08/29/2014 Left leg weakness [R29.898] 08/29/2014 Stiffness of knee joint [M25.669] 08/29/2014 Gait abnormality [R26.9] 08/29/2014 Type 2 diabetes mellitus without complication, *05/25/2016 Pure hypercholesterolemia [E78.00] 03/10/2015 Essential hypertension, benign [I10] 06/11/2013 Allergic rhinitis [J30.9] 03/10/2015 Class 1 obesity with body mass index (BMI) of 3*08/16/2022 Former smoker [Z87.891] 08/16/2022 Pain in right hip [M25.551] 10/02/2022 Chronic pain of right knee [M25.561, G89.29] 10/02/2022 Encounter Status:Closed by EDA CASTELLANOS on 06/24/23 [facility] CNOVon 05-30-2023 CNOV Office Visit (ORMDNA ) ROBERTO OSBORN SR ([id number]) 1960 M Date Time Provider Department 05/30/23 9:30 AM CHIKA CARPENTER During your visit today, we recorded the following information about you: Chika Carpenter MD 06/27/2023 8:08 AM Signed REASON FOR VISIT / CHIEF COMPLAINT CHIEF COMPLAINT: Roberto Osborn SR is a 63 year old male who presents today for follow up office visit. Patient presents with: Left Knee - Follow Up: Bone scan results HISTORY OF PRESENT ILLNESS (HPI) PAIN EVALUATION 05/30/2023 0934 Pain Level: 0 Pain Location: Knee-Left Here for follow-up of his left knee pain status post arthroplasty. He has been wearing a brace which she states is helping. He did have his bone scan completed. Today he reports he is having no pain in the knee. When the knee is painful it is there with the first few steps after arising from a seated position and after a long period of sitting. He denies any fevers chills or systemic signs of illness Any new injury, since being seen last: No Is there any overall improvement in your condition? Yes, Does anything make it worse?: Yes, as noted above Does anything make it better?: Yes, racing and activity modification REVIEW OF SYMPTOMS: Integumentary: Any recent skin changes or rashes? No Neurologic: Any numbness or tingling in the LOCAL AREA? No Endocrine: Any diagnosis of diabetes? Yes Hematologic: Any recent bleeding episodes? No ALLERGIES ALLERGIES Allergen Reactions Codeine Rash Morphine Hives PAST MEDICAL HISTORY PAST MEDICAL HISTORY Diagnosis Date Diabetes (HCC) GERD (gastroesophageal reflux disease) HTN (hypertension) Hypercholesteremia Osteoarthritis PAST SURGICAL HISTORY Procedure Laterality Date ARTHROSCOPY KNEE DIAGNOSTIC W/WO SYNOVIAL BX SPX 08/2008 Arthroscopy, knee right ARTHROSCOPY KNEE DIAGNOSTIC W/WO SYNOVIAL BX SPX 06/29/2013 Arthroscopy, knee left ARTHRP KNE CONDYLEANDPLATU MEDIALANDLAT COMPARTMENTS 08/09/2014 Knee replacement, total left BACK SURGERY HX lumbar december 2019 PAST SURGICAL HISTORY OF ~1996 cervical fusion PAST SURGICAL HISTORY OF tonsils age 3 REVISE MEDIAN N/CARPAL TUNNEL SURG Left 10/26/2020 TOTAL KNEE REPLACEMENT Right 09/10/2022 PHYSICAL EXAMINATION Vitals: There were no vitals taken for this visit. Body Habitus:no acute distress and alert and oriented Orientation: Normal: Oriented to person, place and time Psych: normal Sensation: sensation to light touch is grossly normal bilaterally Skin: Color, texture, turgor normal. No rashes or lesions Swelling: no swelling noted Stance: normal cervical posture, shoulder alignment, and no joint deformities or swelling noted Ortho Exam Left knee well-healed surgical incision Range of motion 0-1 20 No instability to varus valgus stress Patient able to hold the leg in extension against gravity and resistance Imaging : Bone scan completed 05/23/2023: * No scintigraphic evidence of focal abnormality in the LEFT knee. Mild minimal uptake at the tibial plateau may be secondary to stress reaction. * Presumed postop changes in the right knee. Proceedures : None today Assessment: Symptomatically improved left knee pain with no radiographic evidence of loosening or complications. Plan: 1. Prescription for meloxicam issued 2. Continue independent exercise program 3. Continue bracing as needed 4. We will follow this clinically. If symptoms change or worsen then additional work-up may be indicated Chika Carpenter M.D. Department of Orthopaedic Surgery [facility] Allergies As of Date: 05/30/2023 Noted Allergy Reaction CODEINE 07/18/2021 2 - Rash MORPHINE 10/26/2020 4 - Hives Date Reviewed: 05/30/2023 Reviewed by: Chika Carpenter MD - Fully Assessed Reason for Visit: Follow Up [171] Cmt: Bone scan results Primary Visit Diagnosis:Pain due to internal orthopedic prosthetic devices, implants and grafts, initial encounter ([facility]) [T84.84XA] Order(s):meloxicam (MOBIC) 7.5 mg tabletTake 1 tablet by mouth once daily.Disp: 30 tabletRfl: 2 Prescriptions as of 06/27/2023 - meloxicam (MOBIC) 7.5 mg tablet Take 1 tablet by mouth once daily. - acetaminophen (TYLENOL) 500 mg tablet Take 2 tablets by mouth every 8 hours as needed for pain. - ascorbic acid, vitamin C, (VITAMIN C) 500 mg tablet Take 1 tablet by mouth twice daily with meals for 27 doses. - aspirin, enteric coated (ASPIRIN, ENTERIC COATED) 81 mg EC tablet Take 1 tablet by mouth twice daily for 28 days. - metFORMIN (GLUCOPHAGE) 500 mg tablet Take 500 mg by mouth twice daily with meals. - albuterol HFA (PROVENTIL HFA, VENTOLIN HFA) 90 mcg/actuation inhaler Inhale 2 Puffs as instructed. - umeclidinium-vilanterol (ANORO ELLIPTA) 62.5-25 mcg/actuation inhaler Inhale 1 Puff as instructed once daily as needed (shortness of breath). (more content not included)... Normal [facility] BONE 3 PHASEon 05-23-2023 NC BONE 3 PHASE * * *Final Report* * * DATE OF EXAM: May 23 2023 1:10PM CARLEE 0009 - NC BONE 3 PHASE / PROCEDURE REASON: multiple diagnoses * * * * Physician Interpretation * * * * EXAM: THREE-PHASE BONE SCAN HISTORY: Pain due to internal orthopedic prosthetic devices, implants and grafts, initial encounter ([facility]) S/P total knee replacement using cement, left . Status post left TKA 08/09/2014, status post right TKA 09/10/2022 TECHNIQUE: 22.4 mCi Tc-99m HDP was administered IV. Three-phase bone scan with attention to the knees. Arterial flow planar images obtained immediately after tracer injection, blood pool planar images obtained around 3 to 5 minutes, and delayed planar images obtained at 3-4 hours. CORRELATION: Radiograph 05/16/2023 RESULT: Arterial Phase Images: Symmetric radiotracer distribution. Blood Pool Images: Area of expected increased tracer uptake around the right TKA. Slight increase in periprosthetic tracer uptake of the left knee. Photopenic defects correlating with knee prostheses bilaterally. Delayed Images: Right knee no focal abnormal increased uptake. Minimal prominence of uptake at the tibial plateau diffusely Right-sided generalized periprosthetic tracer uptake compatible with postop changes. IMPRESSION: * No scintigraphic evidence of focal abnormality in the LEFT knee. Mild minimal uptake at the tibial plateau may be secondary to stress reaction. * Presumed postop changes in the right knee. Digital Computer Systems Analyst: ENOCH Transcribe Date/Time: May 23 2023 1:29P Dictated by : CALI OBRIEN, This examination was interpreted and the report reviewed and electronically signed by: ALESHA DEE MD on May 23 2023 2:14PM EST [id number] [facility] No Panel Informationon 05-23 [facility] Anne 05-20-2023 KATIE Telephone ([place]) ROBERTO OSBORN SR ([id number]) 1960 M Date Time Provider Department 05/20/23 CHIKA CARPENTER During your visit today, we recorded the following information about you: Eda Castellanos 05/20/2023 10:13 AM Signed Please leave a voice mail at [phone] for spouse Lien for two appts for Roberto. He needs a bone scan result appt on 05/30. Please schedule in the am hold slot. Also the 08/06 appt needs rescheduled to 08/01 in the earliest am. Just let her know on the message what was done. Marylin Reynath 05/20/2023 10:36 AM Signed Scheduled and called ailyn Emmanuel voicemail message with appointment information. Allergies As of Date: 05/20/2023 Noted Allergy Reaction CODEINE 07/18/2021 2 - Rash MORPHINE 10/26/2020 4 - Hives Date Reviewed: 05/16/2023 Reviewed by: Radha Ramey MA - Fully Assessed Reason for Visit: Appointment [186] Prescriptions as of 05/21/2023 - AMLODIPINE-BENAZEPRIL 10-20 mg per capsule Take 1 capsule by mouth once daily. - CRESTOR 10 mg tablet Take 10 mg by mouth once daily. - NEXIUM 40 mg capsule Take 40 mg by mouth once daily. - acetaminophen (TYLENOL) 500 mg tablet Take 2 tablets by mouth every 8 hours as needed for pain. - ascorbic acid, vitamin C, (VITAMIN C) 500 mg tablet Take 1 tablet by mouth twice daily with meals for 27 doses. - aspirin, enteric coated (ASPIRIN, ENTERIC COATED) 81 mg EC tablet Take 1 tablet by mouth twice daily for 28 days. - metFORMIN (GLUCOPHAGE) 500 mg tablet Take 500 mg by mouth twice daily with meals. - albuterol HFA (PROVENTIL HFA, VENTOLIN HFA) 90 mcg/actuation inhaler Inhale 2 Puffs as instructed. - umeclidinium-vilanterol (ANORO ELLIPTA) 62.5-25 mcg/actuation inhaler Inhale 1 Puff as instructed once daily as needed (shortness of breath). Meds Comments as of 09/12/2022: no interactions 2-2-23. Problem List As Of Date 05/20/2023 Noted Resolved HTN (hypertension) [I10] 06/11/2013 Lateral meniscal tear [S83.289A] 07/12/2013 Medial meniscus tear [S83.249A] 07/12/2013 Knee pain [M25.569] 04/08/2014 Degenerative arthritis of knee [M17.9] 04/08/2014 GERD (gastroesophageal reflux disease) [K21.9] 07/29/2014 Knee pain, left [M25.562] 08/29/2014 Left leg weakness [R29.898] 08/29/2014 Stiffness of knee joint [M25.669] 08/29/2014 Gait abnormality [R26.9] 08/29/2014 Type 2 diabetes mellitus without complication, *05/25/2016 Pure hypercholesterolemia [E78.00] 03/10/2015 Essential hypertension, benign [I10] 06/11/2013 Allergic rhinitis [J30.9] 03/10/2015 Class 1 obesity with body mass index (BMI) of 3*08/16/2022 Former smoker [Z87.891] 08/16/2022 Pain in right hip [M25.551] 10/02/2022 Chronic pain of right knee [M25.561, G89.29] 10/02/2022 Encounter Status:Closed by EDA CASTELLANOS on 05/21/23 Normal [facility] XR Knee AP and Lateral and M erchantson 05-19-2023 IMPRESSION: Al NASCIMENTO Digital Computer Systems Analyst: ENOCH Transcribe Date/Time: May 19 2023 8:53A Dictated by : JIHAN MIX MD This examination was interpreted and the report reviewed and electronically signed by: JIHAN MIX MD on May 19 2023 8:54AM EST [facility] * * *Final Report* * * DATE OF EXAM: May 16 2023 7:18AM ALFREDO 5208 - XR KNEE 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 LT / PROCEDURE REASON: Z96.652-Status post total left knee replacement * * * * Physician Interpretation * * * * PROCEDURE: Left knee INDICATION: Status post total left knee replacement .F/U POST LEFT KNEE REPLACEMENT TECHNIQUE: XR KNEE 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 LT COMPARISON: 09/25/2022 FINDINGS: The total left knee arthroplasty remains in satisfactory position without evidence for loosening. No periprosthetic fracture or significant joint effusion. [facility] Provider, Sunny Jiang - 05/19/2023 * * *Final Report* * * DATE OF EXAM: May 16 2023 7:18AM ALFREDO 5208 - XR KNEE 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 LT / PROCEDURE REASON: Z96.652-Status post total left knee replacement * * * * Physician Interpretation * * * * PROCEDURE: Left knee INDICATION: Status post total left knee replacement .F/U POST LEFT KNEE REPLACEMENT TECHNIQUE: XR KNEE 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 LT COMPARISON: 09/25/2022 FINDINGS: The total left knee arthroplasty remains in satisfactory position without evidence for loosening. No periprosthetic fracture or significant joint effusion. IMPRESSION IMPRESSION: Stable TKA Digital Computer Systems Analyst: PSCB Transcribe Date/Time: May 19 2023 8:53A Dictated by : JIHAN MIX MD This examination was interpreted and the report reviewed and electronically signed by: JIHAN MIX MD on May 19 2023 8:54AM EST [facility] XR Knee AP and Lateral and M erchantsOrdered By: [facility] Provider on 05-19-2023 [facility] CNOVon 05-16-2023 CNOV Office Visit (ORMDNA ) ROBERTO OSBORN ([id number]) 1960 M Date Time Provider Department 05/16/23 7:30 AM REGLA HIGGINS ORGARETH During your visit today, we recorded the following information about you: Regla Higgins PA-C 05/16/2023 8:05 AM Signed DEPARTMENT OF ORTHOPAEDICS CC: Follow-up visit after knee replacement HPI: Mr. Osborn is here today for his 9 year clinical follow up status post left total knee replacement. Since his last visit Mr. Osborn conveys the interval has been complicated by discomfort the past 6 months. He describes his pain as start up pain but it also gets worse with activity and at the end of the day. 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 Pleased with outcome: Yes Pain? 0 and 2 on a scale of 1-10 Ambulatory support: none Distance able to walk:> 30 minutes Stairs Normal sequence Requires a handrail: No Able to kneel: Yes Able to arise from chair: Yes with ease Back issues: Yes Pain Medication: tylenol and ibuprofen REVIEW OF SYSTEMS: No new medical issues PAST MEDICAL HISTORY Diagnosis Date Diabetes (HCC) GERD (gastroesophageal reflux disease) HTN (hypertension) Hypercholesteremia Osteoarthritis PAST SURGICAL HISTORY Procedure Laterality Date ARTHROSCOPY KNEE DIAGNOSTIC W/WO SYNOVIAL BX SPX 08/2008 Arthroscopy, knee right ARTHROSCOPY KNEE DIAGNOSTIC W/WO SYNOVIAL BX SPX 06/29/2013 Arthroscopy, knee left ARTHRP KNE CONDYLEANDPLATU MEDIALANDLAT COMPARTMENTS 08/09/2014 Knee replacement, total left BACK SURGERY HX lumbar december 2019 PAST SURGICAL HISTORY OF ~1996 cervical fusion PAST SURGICAL HISTORY OF tonsils age 3 REVISE MEDIAN N/CARPAL TUNNEL SURG Left 10/26/2020 TOTAL KNEE REPLACEMENT Right 09/10/2022 Current Outpatient Medications Medication Sig Dispense Refill acetaminophen (TYLENOL) 500 mg tablet Take 2 tablets by mouth every 8 hours as needed for pain. 90 tablet 0 metFORMIN (GLUCOPHAGE) 500 mg tablet Take 500 mg by mouth twice daily with meals. albuterol HFA (PROVENTIL HFA, VENTOLIN HFA) 90 mcg/actuation inhaler Inhale 2 Puffs as instructed. umeclidinium-vilanterol (ANORO ELLIPTA) 62.5-25 mcg/actuation inhaler Inhale 1 Puff as instructed once daily as needed (shortness of breath). AMLODIPINE-BENAZEPRIL 10-20 mg per capsule Take 1 capsule by mouth once daily. NEXIUM 40 mg capsule Take 40 mg by mouth once daily. CRESTOR 10 mg tablet Take 10 mg by mouth once daily. ascorbic acid, vitamin C, (VITAMIN C) 500 mg tablet Take 1 tablet by mouth twice daily with meals for 27 doses. 27 tablet 0 aspirin, enteric coated (ASPIRIN, ENTERIC COATED) 81 mg EC tablet Take 1 tablet by mouth twice daily for 28 days. 56 tablet 0 No current facility-administered medications for this visit. ALLERGIES Allergen Reactions Codeine Rash Morphine Hives FAMILY HISTORY Problem Relation Age of Onset Heart Father age 47- asphyxiated other (blood clot) Sister dvt No Known Problems Mother No Known Problems Brother Social History Tobacco Use Smoking status: Former Packs/day: 0.10 Years: 30.00 Additional pack years: 0.00 Total pack years: 3.00 Types: Cigarettes Quit date: 07/15/2013 Years since quittin.8 Smokeless tobacco: Never Vaping Use Vaping Use: Never used Substance Use Topics Alcohol use: Not Currently Comment: not weekly Drug use: No EXAMINATION: GENERAL:no apparent distress RESP:Unlabored with no shortness of breath CV: No extremity swelling, varices, edema, pallor, erythema Mr. Osborn has no difficulty arising out of a chair and has mild difficulty ambulating in the exam room. his gait was limping to the left. LOWER EXTREMITIES: On the exam table seated and supine, hip range of motion bilaterally was symmetric, unrestricted and non-painful. No trochanteric pain to palpation. Straight leg raise and femoral nerve stretch tests were negative for acute radicular symptoms to suggest spine problems. Examination of the left knee reveals + effusion, single previous incisions and has no erythema, warmth or tenderness. Range of motion is 0 degrees in extension and 120 degrees of flexion actively. Significant varus-valgus instability with patella tracking midline. No patellofemoral crepitus. Both lower extremities were neurovascularly intact, has no evidence of cellulitis, and has no distal swelling. X-RAYS: left cemented Triathlon cruciate retained total knee showing good component sizing, position, and alignment. The patella tracks midline. Radiographic review is concerning for possible loosening of tibial baseplate, has no findings of wear, and has slight osteolysis under the medial side of tibial baseplate. ASSESSMENT: S/P left total knee arthroplasty and experiencing pain from varus valgus instability vs possible loosening (more content not included)... Normal [facility] XR KNEE 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 L Ton 05-16-2023 XR KNEE 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 LT * * *Final Report* * * DATE OF EXAM: May 16 2023 7:18AM ALFREDO 5208 - XR KNEE 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 LT / PROCEDURE REASON: Z96.652-Status post total left knee replacement * * * * Physician Interpretation * * * * PROCEDURE: Left knee INDICATION: Status post total left knee replacement .F/U POST LEFT KNEE REPLACEMENT TECHNIQUE: XR KNEE 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 LT COMPARISON: 09/25/2022 FINDINGS: The total left knee arthroplasty remains in satisfactory position without evidence for loosening. No periprosthetic fracture or significant joint effusion. IMPRESSION: Stable TKA [employer] Systems Analyst: ENOCH Transcribe Date/Time: May 19 2023 8:53A Dictated by : JIHAN MIX MD This examination was interpreted and the report reviewed and electronically signed by: JIHAN MIX MD on May 19 2023 8:54AM EST [id number] [facility] XR Knee AP and Lateral and M erchantson 05-16-2023 Radiology Study observation (narrative) [facility] Anne 05-12-2023 CNPN Telephone (ORMDNA) ROBERTO OSBORN SR ([id number]) 1960 M Date Time Provider Department 05/12/23 CHIKA CARPENTER During your visit today, we recorded the following information about you: Eda Castellanos 05/12/2023 9:33 AM Signed Patient needs appt for left knee pain (old tka). He needs this Friday or next Friday if possible. Ok to offer Ailza if available. Please contact Lien (spouse) to schedule at her work [phone]. AramisClemente 05/12/2023 9:49 AM Signed Patient is scheduled with Aliza for this Friday. Allergies As of Date: 05/12/2023 Noted Allergy Reaction CODEINE 07/18/2021 2 - Rash MORPHINE 10/26/2020 4 - Hives Date Reviewed: 12/16/2022 Reviewed by: Chika Carpenter MD - Fully Assessed Reason for Visit: Appointment [186] Prescriptions as of 05/12/2023 - acetaminophen (TYLENOL) 500 mg tablet Take 2 tablets by mouth every 8 hours as needed for pain. - ascorbic acid, vitamin C, (VITAMIN C) 500 mg tablet Take 1 tablet by mouth twice daily with meals for 27 doses. - aspirin, enteric coated (ASPIRIN, ENTERIC COATED) 81 mg EC tablet Take 1 tablet by mouth twice daily for 28 days. - metFORMIN (GLUCOPHAGE) 500 mg tablet Take 500 mg by mouth twice daily with meals. - albuterol HFA (PROVENTIL HFA, VENTOLIN HFA) 90 mcg/actuation inhaler Inhale 2 Puffs as instructed. - umeclidinium-vilanterol (ANORO ELLIPTA) 62.5-25 mcg/actuation inhaler Inhale 1 Puff as instructed once daily as needed (shortness of breath). - AMLODIPINE-BENAZEPRIL 10-20 mg per capsule Take 1 capsule by mouth once daily. - NEXIUM 40 mg capsule Take 40 mg by mouth once daily. - CRESTOR 10 mg tablet Take 10 mg by mouth once daily. Meds Comments as of 09/12/2022: no interactions 09-12-22. Problem List As Of Date 05/12/2023 Noted Resolved HTN (hypertension) [I10] 06/11/2013 Lateral meniscal tear [S83.289A] 07/12/2013 Medial meniscus tear [S83.249A] 07/12/2013 Knee pain [M25.569] 04/08/2014 Degenerative arthritis of knee [M17.9] 04/08/2014 GERD (gastroesophageal reflux disease) [K21.9] 07/29/2014 Knee pain, left [M25.562] 08/29/2014 Left leg weakness [R29.898] 08/29/2014 Stiffness of knee joint [M25.669] 08/29/2014 Gait abnormality [R26.9] 08/29/2014 Type 2 diabetes mellitus without complication, *05/25/2016 Pure hypercholesterolemia [E78.00] 03/10/2015 Essential hypertension, benign [I10] 06/11/2013 Allergic rhinitis [J30.9] 03/10/2015 Class 1 obesity with body mass index (BMI) of 3*08/16/2022 Former smoker [Z87.891] 08/16/2022 Pain in right hip [M25.551] 10/02/2022 Chronic pain of right knee [M25.561, G89.29] 10/02/2022 Encounter Status:Closed by CLEMENTE SELF on 05/12/23 Normal [facility] CREATINE KINASEon 04-24-2023 CK [Catalytic activity/Vol] 93 U/L [facility] Interpretation and review of laboratory results [facility] VITAMIN B12 (CYANOCOBALAMIN) on 04-24-2023 Cobalamin (Vitamin B12) [Moles/Vol] 235 pg/mL Low 300 - PINF pg/mL [facility] Interpretation and review of laboratory results Abnormal [facility] <152 pg/mL - Deficie nt 152 - 300 pg/mL- Insufficient >300 pg/mL - Sufficient [facility] VITAMIN D, 25-HYDROXYon 04-11 25-hydroxyvitamin D IA [Mass/Vol] 27 ng/mL Low 30 - 100 ng/mL [facility] Interpretation and review of laboratory results Abnormal [facility] Deficient : <20.0 ng /mL Insufficient : 20.0-29.9 ng/mL Sufficient : 30.0 - 100.0 ng/mL Potential Toxicity : >100.0 ng/mL [facility] CNOVon 12-06-2022 CNOV Office Visit (SANTIAGO ) ROBERTO OSBORN SR ([id number]) 1960 M Date Time Provider Department 12/06/22 9:00 AM CHIKA CARPENTER During your visit today, we recorded the following information about you: Chika Carpenter MD 12/16/2022 11:[address] CARPENTER- POST-OP KNEE ======= Post-Op F/U Office Visit ======= Roberto Osborn SR presents today for a 3 months status post Right TKA. Post-operative recovery was uneventful. Patient's rating of condition: improving Comments: None.Does the Pt. still experience pain? PAIN EVALUATION 12/06/2022 0850 Pain Level: 0 Pain Location: Knee-Right Functional difficulties: None Physical Therapy: Completed course of therapy Pain Medication: Non-narcotic Ambulating without assistance. Medications and Allergies reviewed and verified. ======= EXAM: ======= GEN: AANDO x3, NAD SKIN:Appropriate postop appearance Incision intact Incision well healed RightKnee: ROM: Flexion/Extension:0 degrees to 115 degrees Pain with ROM:No Mal-alignment: No Effusion: None Tender to palpation of the medial joint line(s). Stability:Anterior/Post erior- Yes, stable and Varus/Valgus- Yes, stable Quad strength: normal HIP: range of motion no loss ROM NV: intact and Juan's negative ======= IMAGING: ======= Xrays: No x-rays today ===== IMPRESSION/PLAN: ===== 62 year old male s/p Right TKA At normal post-operative stage of recovery. Plan: 1. Continue range of motion/strengthening exercises as well as weightbearing as tolerated 2. Continue total knee precautions including antibiotic prophylactic protocols 3. Follow-up for repeat clinical evaluation Chika Carpenter MD Electronic Signature Referring Provider: SELF [200] Allergies As of Date: 12/06/2022 Noted Allergy Reaction CODEINE 07/18/2021 2 - Rash MORPHINE 10/26/2020 4 - Hives Date Reviewed: 12/06/2022 Reviewed by: Chika Carpenter MD - Fully Assessed Reason for Visit: Post Op [174] Knee Replacement [363] Primary Visit Diagnosis:Aftercare following right knee joint replacement surgery [Z47.1, Z96.651] Prescriptions as of 12/16/2022 - acetaminophen (TYLENOL) 500 mg tablet Take 2 tablets by mouth every 8 hours as needed for pain. - ascorbic acid, vitamin C, (VITAMIN C) 500 mg tablet Take 1 tablet by mouth twice daily with meals for 27 doses. - aspirin, enteric coated (ASPIRIN, ENTERIC COATED) 81 mg EC tablet Take 1 tablet by mouth twice daily for 28 days. - metFORMIN (GLUCOPHAGE) 500 mg tablet Take 500 mg by mouth twice daily with meals. - albuterol HFA (PROVENTIL HFA, VENTOLIN HFA) 90 mcg/actuation inhaler Inhale 2 Puffs as instructed. - umeclidinium-vilanterol (ANORO ELLIPTA) 62.5-25 mcg/actuation inhaler Inhale 1 Puff as instructed once daily as needed (shortness of breath). - AMLODIPINE-BENAZEPRIL 10-20 mg per capsule Take 1 capsule by mouth once daily. - NEXIUM 40 mg capsule Take 40 mg by mouth once daily. - CRESTOR 10 mg tablet Take 10 mg by mouth once daily. Meds Comments as of 09/12/2022: no interactions 2-2-23. Problem List As Of Date 12/06/2022 Noted Resolved HTN (hypertension) [I10] 06/11/2013 Lateral meniscal tear [S83.289A] 07/12/2013 Medial meniscus tear [S83.249A] 07/12/2013 Knee pain [M25.569] 04/08/2014 Degenerative arthritis of knee [M17.9] 04/08/2014 GERD (gastroesophageal reflux disease) [K21.9] 07/29/2014 Knee pain, left [M25.562] 08/29/2014 Left leg weakness [R29.898] 08/29/2014 Stiffness of knee joint [M25.669] 08/29/2014 Gait abnormality [R26.9] 08/29/2014 Type 2 diabetes mellitus without complication, *05/25/2016 Pure hypercholesterolemia [E78.00] 03/10/2015 Essential hypertension, benign [I10] 06/11/2013 Allergic rhinitis [J30.9] 03/10/2015 Class 1 obesity with body mass index (BMI) of 3*08/16/2022 Former smoker [Z87.891] 08/16/2022 Pain in right hip [M25.551] 10/02/2022 Chronic pain of right knee [M25.561, G89.29] 10/02/2022 Disposition: Return in about 9 months (around 09/07/2023). Follow-up and Disposition History for Encounter Date Provider Department Center 12/06/2022 [id number] CARPENTER [facility] Letter Text Encounter Status:Closed by CHIKA CARPENTER on 12/16/22 [facility] 11-19-2022 CNPN Telephone (ORQ) ROBERTO OSBORN ([id number]) 1960 Date Time Provider Department 11/19/22 CHIKA CARPENTER During your visit today, we recorded the following information about you: Latoya Brito 11/19/2022 2:26 PM Signed Keyla from patient's [employer] is requesting a copy of the return to work letter with detailed restrictions. I told her we sent something on 11/15, but that was just for his disability. They are asking for that same letter to be faxed to [phone]. Thank you! Eda Dyllan [facility] [place] [facility] 11/21/2022 9:55 AM Signed This was done on 11/20/22. Allergies As of Date: 11/19/2022 Noted Allergy Reaction CODEINE 07/18/2021 2 - Rash MORPHINE 10/26/2020 4 - Hives Date Reviewed: 10/27/2022 Reviewed by: Chika Carpenter MD - Fully Assessed Reason for Visit: Patient Question [8513] Prescriptions as of 11/21/2022 - acetaminophen (TYLENOL) 500 mg tablet Take 2 tablets by mouth every 8 hours as needed for pain. - ascorbic acid, vitamin C, (VITAMIN C) 500 mg tablet Take 1 tablet by mouth twice daily with meals for 27 doses. - aspirin, enteric coated (ASPIRIN, ENTERIC COATED) 81 mg EC tablet Take 1 tablet by mouth twice daily for 28 days. - metFORMIN (GLUCOPHAGE) 500 mg tablet Take 500 mg by mouth twice daily with meals. - albuterol HFA (PROVENTIL HFA, VENTOLIN HFA) 90 mcg/actuation inhaler Inhale 2 Puffs as instructed. - umeclidinium-vilanterol (ANORO ELLIPTA) 62.5-25 mcg/actuation inhaler Inhale 1 Puff as instructed once daily as needed (shortness of breath). - AMLODIPINE-BENAZEPRIL 10-20 mg per capsule Take 1 capsule by mouth once daily. - NEXIUM 40 mg capsule Take 40 mg by mouth once daily. - CRESTOR 10 mg tablet Take 10 mg by mouth once daily. Meds Comments as of 09/12/2022: no interactions 2-10-03. Problem List As Of Date 11/19/2022 Noted Resolved HTN (hypertension) [I10] 06/11/2013 Lateral meniscal tear [S83.289A] 07/12/2013 Medial meniscus tear [S83.249A] 07/12/2013 Knee pain [M25.569] 04/08/2014 Degenerative arthritis of knee [M17.9] 04/08/2014 GERD (gastroesophageal reflux disease) [K21.9] 07/29/2014 Knee pain, left [M25.562] 08/29/2014 Left leg weakness [R29.898] 08/29/2014 Stiffness of knee joint [M25.669] 08/29/2014 Gait abnormality [R26.9] 08/29/2014 Type 2 diabetes mellitus without complication, *05/25/2016 Pure hypercholesterolemia [E78.00] 03/10/2015 Essential hypertension, benign [I10] 06/11/2013 Allergic rhinitis [J30.9] 03/10/2015 Class 1 obesity with body mass index (BMI) of 3*08/16/2022 Former smoker [Z87.891] 08/16/2022 Pain in right hip [M25.551] 10/02/2022 Chronic pain of right knee [M25.561, G89.29] 10/02/2022 Encounter [facility] CNCOon 11-15-2022 CNCO Letter Text [facility] CNPNon 11-08-2022 CNPN Telephone (SANTIAGO) ROBERTO OSBORN SR ([id number]) 1960 M Date Time Provider Department 11/08/22 CHIKA CARPENTER During your visit today, we recorded the following information about you: Eda Mijares [facility] 11/08/2022 1:18 PM Signed Patient asking if he could have a return to work letter for light duty to begin on 11/18/22. If you agree, it would need to be faxed to [phone] ('s work), no cover sheet needed. Regla Higgins PA-C 11/08/2022 4:56 PM Signed Letter has been faxed and received. Regla Higgins PA-C Allergies As of Date: 11/08/2022 Noted Allergy Reaction CODEINE 07/18/2021 2 - Rash MORPHINE 10/26/2020 4 - Hives Date Reviewed: 10/27/2022 Reviewed by: Chika Carpenter MD - Fully Assessed Reason for Visit: Letter [264] Prescriptions as of 11/08/2022 - acetaminophen (TYLENOL) 500 mg tablet Take 2 tablets by mouth every 8 hours as needed for pain. - ascorbic acid, vitamin C, (VITAMIN C) 500 mg tablet Take 1 tablet by mouth twice daily with meals for 27 doses. - aspirin, enteric coated (ASPIRIN, ENTERIC COATED) 81 mg EC tablet Take 1 tablet by mouth twice daily for 28 days. - metFORMIN (GLUCOPHAGE) 500 mg tablet Take 500 mg by mouth twice daily with meals. - albuterol HFA (PROVENTIL HFA, VENTOLIN HFA) 90 mcg/actuation inhaler Inhale 2 Puffs as instructed. - umeclidinium-vilanterol (ANORO ELLIPTA) 62.5-25 mcg/actuation inhaler Inhale 1 Puff as instructed once daily as needed (shortness of breath). - AMLODIPINE-BENAZEPRIL 10-20 mg per capsule Take 1 capsule by mouth once daily. - NEXIUM 40 mg capsule Take 40 mg by mouth once daily. - CRESTOR 10 mg tablet Take 10 mg by mouth once daily. Meds Comments as of 09/12/2022: no interactions 09-12-22. Problem List As Of Date 11/08/2022 Noted Resolved HTN (hypertension) [I10] 06/11/2013 Lateral meniscal tear [S83.289A] 07/12/2013 Medial meniscus tear [S83.249A] 07/12/2013 Knee pain [M25.569] 04/08/2014 Degenerative arthritis of knee [M17.9] 04/08/2014 GERD (gastroesophageal reflux disease) [K21.9] 07/29/2014 Knee pain, left [M25.562] 08/29/2014 Left leg weakness [R29.898] 08/29/2014 Stiffness of knee joint [M25.669] 08/29/2014 Gait abnormality [R26.9] 08/29/2014 Type 2 diabetes mellitus without complication, *05/25/2016 Pure hypercholesterolemia [E78.00] 03/10/2015 Essential hypertension, benign [I10] 06/11/2013 Allergic rhinitis [J30.9] 03/10/2015 Class 1 obesity with body mass index (BMI) of 3*08/16/2022 Former smoker [Z87.891] 08/16/2022 Pain in right hip [M25.551] 10/02/2022 Chronic pain of right knee [M25.561, G89.29] 10/02/2022 Letter Text Encounter Status:Closed by REGLA HIGGINS on 11/08/22 [facility] CNTHERAPYon 11-06-2022 CNTHERAPY OT/PT/Speech Visit (PTMDRG) ROBERTO OSBORN ([id number]) 1960 M Date Time Provider Department 11/06/22 8:00 AM TRE GOG Date Time Provider Department Center 11/06/2022 8:00 AM [id number], SCOTT PTMDRG [facility] Reason for Visit: Physical Therapy [503] PT Discharge [752] Primary Visit Diagnosis:Chronic pain of right knee [M25.561, G89.29] Allergies As of Date: 11/06/2022 Noted Allergy Reaction CODEINE 07/18/2021 2 - Rash MORPHINE 10/26/2020 4 - Hives Date Reviewed: 10/27/2022 Reviewed by: Chika Carpenter MD - Fully Assessed Prescriptions as of 01/27/2023 - acetaminophen (TYLENOL) 500 mg tablet Take 2 tablets by mouth every 8 hours as needed for pain. - ascorbic acid, vitamin C, (VITAMIN C) 500 mg tablet Take 1 tablet by mouth twice daily with meals for 27 doses. - aspirin, enteric coated (ASPIRIN, ENTERIC COATED) 81 mg EC tablet Take 1 tablet by mouth twice daily for 28 days. - metFORMIN (GLUCOPHAGE) 500 mg tablet Take 500 mg by mouth twice daily with meals. - albuterol HFA (PROVENTIL HFA, VENTOLIN HFA) 90 mcg/actuation inhaler Inhale 2 Puffs as instructed. - umeclidinium-vilanterol (ANORO ELLIPTA) 62.5-25 mcg/actuation inhaler Inhale 1 Puff as instructed once daily as needed (shortness of breath). - AMLODIPINE-BENAZEPRIL 10-20 mg per capsule Take 1 capsule by mouth once daily. - NEXIUM 40 mg capsule Take 40 mg by mouth once daily. - CRESTOR 10 mg tablet Take 10 mg by mouth once daily. Meds Comments as of 09/12/2022: no interactions 2. Normal [facility] CNTHERAPYon 10-30-2022 CNTHERAPY OT/PT/Speech Visit (PTMDRG) ROBERTO OSBORN ([id number]) 1960 M Date Time Provider Department 10/30/22 8:00 AM TRE GO PTMDRG Date Time Provider Department Center 10/30/2022 8:00 AM [id number], SCOTT PTMDRG [facility] Reason for Visit: PT Progress Note [1596] Primary Visit Diagnosis:Chronic pain of right knee [M25.561, G89.29] Allergies As of Date: 10/30/2022 Noted Allergy Reaction CODEINE 07/18/2021 2 - Rash MORPHINE 10/26/2020 4 - Hives Date Reviewed: 10/27/2022 Reviewed by: Chika Carpenter MD - Fully Assessed Prescriptions as of 10/30/2022 - acetaminophen (TYLENOL) 500 mg tablet Take 2 tablets by mouth every 8 hours as needed for pain. - ascorbic acid, vitamin C, (VITAMIN C) 500 mg tablet Take 1 tablet by mouth twice daily with meals for 27 doses. - aspirin, enteric coated (ASPIRIN, ENTERIC COATED) 81 mg EC tablet Take 1 tablet by mouth twice daily for 28 days. - metFORMIN (GLUCOPHAGE) 500 mg tablet Take 500 mg by mouth twice daily with meals. - albuterol HFA (PROVENTIL HFA, VENTOLIN HFA) 90 mcg/actuation inhaler Inhale 2 Puffs as instructed. - umeclidinium-vilanterol (ANORO ELLIPTA) 62.5-25 mcg/actuation inhaler Inhale 1 Puff as instructed once daily as needed (shortness of breath). - AMLODIPINE-BENAZEPRIL 10-20 mg per capsule Take 1 capsule by mouth once daily. - NEXIUM 40 mg capsule Take 40 mg by mouth once daily. - CRESTOR 10 mg tablet Take 10 mg by mouth once daily. Meds Comments as of 09/12/2022: no interactions 09-12-22. [facility] CNTHERAPYon 10-28-2022 CNTHERAPY OT/PT/Speech Visit (PTMDRG) ROBERTO OSBORN SR ([id number]) 1960 M Date Time Provider Department 10/28/22 7:00 AM TOY COREAS PTMDRG Date Time Provider Department Center 10/28/2022 7:00 AM [id number], SUSAN PTMDRG [facility] Reason for Visit: Physical Therapy [503] Primary Visit Diagnosis:Chronic pain of right knee [M25.561, G89.29] Allergies As of Date: 10/28/2022 Noted Allergy Reaction CODEINE 07/18/2021 2 - Rash MORPHINE 10/26/2020 4 - Hives Date Reviewed: 10/27/2022 Reviewed by: Chika Carpenter MD - Fully Assessed Prescriptions as of 10/28/2022 - acetaminophen (TYLENOL) 500 mg tablet Take 2 tablets by mouth every 8 hours as needed for pain. - ascorbic acid, vitamin C, (VITAMIN C) 500 mg tablet Take 1 tablet by mouth twice daily with meals for 27 doses. - aspirin, enteric coated (ASPIRIN, ENTERIC COATED) 81 mg EC tablet Take 1 tablet by mouth twice daily for 28 days. - metFORMIN (GLUCOPHAGE) 500 mg tablet Take 500 mg by mouth twice daily with meals. - albuterol HFA (PROVENTIL HFA, VENTOLIN HFA) 90 mcg/actuation inhaler Inhale 2 Puffs as instructed. - umeclidinium-vilanterol (ANORO ELLIPTA) 62.5-25 mcg/actuation inhaler Inhale 1 Puff as instructed once daily as needed (shortness of breath). - AMLODIPINE-BENAZEPRIL 10-20 mg per capsule Take 1 capsule by mouth once daily. - NEXIUM 40 mg capsule Take 40 mg by mouth once daily. - CRESTOR 10 mg tablet Take 10 mg by mouth once daily. Meds Comments as of 09/12/2022: no interactions 09-12-22. [facility] 10-25-2022 [facility] Office Visit (ORGARETH ) ROBERTO OSBORN SR ([id number]) 1960 M Date Time Provider Department 10/25/22 11:45 AM CHIKA CARPENTER During your visit today, we recorded the following information about you: Chika Carpenter MD 10/27/2022 11:[address] CARPENTER- POST-OP KNEE ======= Post-Op F/U Office Visit ======= Roberto A Law SR presents today for a 6 weeks status post Right TKA. Post-operative recovery was uneventful. Patient's rating of condition: improving Comments: None Does the Pt. still experience pain? PAIN EVALUATION 10/25/2022 1141 Pain Level: 3 Pain Location: Knee-Right Description: Tightness;Stiffness Duration Amount of Time: -- ongoing Frequency: Continuous Intervention/Comfort measure: Medication;Exercise;Col d Functional difficulties: Stair climbing, Arising from chair, and Walking Physical Therapy: Yes Pain Medication: None Ambulating without assistance. Medications and Allergies reviewed and verified. ======= EXAM: ======= GEN: AANDO x3, NAD SKIN:Appropriate postop appearance Incision intact Incision well healed RightKnee: ROM: Flexion/Extension:5 degrees to 110 degrees Pain with ROM:No Mal-alignment: No Effusion: None Tender to palpation of the medial and lateral joint line(s). Stability:Anterior/Post erior- Yes, stable and Varus/Valgus- Yes, stable Quad strength: normal HIP: range of motion no loss ROM NV: intact and Juan's negative ======= IMAGING: ======= Xrays: No x-rays today ===== IMPRESSION/PLAN: ===== 62 year old male s/p Right TKA At normal post-operative stage of recovery. Patient is interested in returning to work. I feel that in 2 weeks he would be ready for a light duty position as long as it did not involve any lifting or climbing on ladders or scaffolding's. He may find walking on uneven terrain can be difficult. Plan: 1. Continue range of motion/strengthening exercises 2. Continue total knee precautions including antibiotic prophylactic protocols 3. Return for light duty in 2 weeks if patient feels up to it if not then he should hold off until his next visit in 6 weeks 4. Follow-up 6 weeks Chika Carpenter MD Electronic Signature Allergies As of Date: 10/25/2022 Noted Allergy Reaction CODEINE 07/18/2021 2 - Rash MORPHINE 10/26/2020 4 - Hives Date Reviewed: 10/25/2022 Reviewed by: Jaquelin Cool Ct - Fully Assessed Reason for Visit: Post Op [174] Knee Replacement [363] Primary Visit Diagnosis:Aftercare following right knee joint replacement surgery [Z47.1, Z96.651] Prescriptions as of 10/27/2022 - acetaminophen (TYLENOL) 500 mg tablet Take 2 tablets by mouth every 8 hours as needed for pain. - ascorbic acid, vitamin C, (VITAMIN C) 500 mg tablet Take 1 tablet by mouth twice daily with meals for 27 doses. - aspirin, enteric coated (ASPIRIN, ENTERIC COATED) 81 mg EC tablet Take 1 tablet by mouth twice daily for 28 days. - metFORMIN (GLUCOPHAGE) 500 mg tablet Take 500 mg by mouth twice daily with meals. - albuterol HFA (PROVENTIL HFA, VENTOLIN HFA) 90 mcg/actuation inhaler Inhale 2 Puffs as instructed. - umeclidinium-vilanterol (ANORO ELLIPTA) 62.5-25 mcg/actuation inhaler Inhale 1 Puff as instructed once daily as needed (shortness of breath). - AMLODIPINE-BENAZEPRIL 10-20 mg per capsule Take 1 capsule by mouth once daily. - NEXIUM 40 mg capsule Take 40 mg by mouth once daily. - CRESTOR 10 mg tablet Take 10 mg by mouth once daily. Meds Comments as of 09/12/2022: no interactions 2-2-23. Problem List As Of Date 10/25/2022 Noted Resolved HTN (hypertension) [I10] 06/11/2013 Lateral meniscal tear [S83.289A] 07/12/2013 Medial meniscus tear [S83.249A] 07/12/2013 Knee pain [M25.569] 04/08/2014 Degenerative arthritis of knee [M17.9] 04/08/2014 GERD (gastroesophageal reflux disease) [K21.9] 07/29/2014 Knee pain, left [M25.562] 08/29/2014 Left leg weakness [R29.898] 08/29/2014 Stiffness of knee joint [M25.669] 08/29/2014 Gait abnormality [R26.9] 08/29/2014 Type 2 diabetes mellitus without complication, *05/25/2016 Pure hypercholesterolemia [E78.00] 03/10/2015 Essential hypertension, benign [I10] 06/11/2013 Allergic rhinitis [J30.9] 03/10/2015 Class 1 obesity with body mass index (BMI) of 3*08/16/2022 Former smoker [Z87.891] 08/16/2022 Pain in right hip [M25.551] 10/02/2022 Chronic pain of right knee [M25.561, G89.29] 10/02/2022 Encounter Status:Closed by CHIKA CARPENTER on 10/27/22 [facility] CNTHERAPYon 10-24-2022 CNTHERAPY OT/PT/Speech Visit (PTMDRG) ROBERTO OSBORN ([id number]) 1960 M Date Time Provider Department 10/24/22 7:00 AM TRE GO PTMG Date Time Provider Department [place] 10/24/2022 7:00 AM [id number], SCOTT PTMDRG [facility] Reason for Visit: Physical Therapy [503] Primary Visit Diagnosis:Chronic pain of right knee [M25.561, G89.29] Allergies As of Date: 10/24/2022 Noted Allergy Reaction CODEINE 07/18/2021 2 - Rash MORPHINE 10/26/2020 4 - Hives Date Reviewed: 09/30/2022 Reviewed by: Kirill Noe PT - Fully Assessed Prescriptions as of 10/24/2022 - acetaminophen (TYLENOL) 500 mg tablet Take 2 tablets by mouth every 8 hours as needed for pain. - ascorbic acid, vitamin C, (VITAMIN C) 500 mg tablet Take 1 tablet by mouth twice daily with meals for 27 doses. - aspirin, enteric coated (ASPIRIN, ENTERIC COATED) 81 mg EC tablet Take 1 tablet by mouth twice daily for 28 days. - metFORMIN (GLUCOPHAGE) 500 mg tablet Take 500 mg by mouth twice daily with meals. - albuterol HFA (PROVENTIL HFA, VENTOLIN HFA) 90 mcg/actuation inhaler Inhale 2 Puffs as instructed. - umeclidinium-vilanterol (ANORO ELLIPTA) 62.5-25 mcg/actuation inhaler Inhale 1 Puff as instructed once daily as needed (shortness of breath). - AMLODIPINE-BENAZEPRIL 10-20 mg per capsule Take 1 capsule by mouth once daily. - NEXIUM 40 mg capsule Take 40 mg by mouth once daily. - CRESTOR 10 mg tablet Take 10 mg by mouth once daily. Meds Comments as of 09/12/2022: no interactions 09-12-22. [facility] CNTHERAPYon 10-21-2022 CNTHERAPY OT/PT/Speech Visit (PTMDRG) ROBERTO OSBORN SR ([id number]) 1960 M Date Time Provider Department 10/21/22 7:45 AM TOY COREAS Date Time Provider Department Center 10/21/2022 7:45 AM [id number] COREAS [facility] Reason for Visit: Physical Therapy [503] Primary Visit Diagnosis:Chronic pain of right knee [M25.561, G89.29] Allergies As of Date: 10/21/2022 Noted Allergy Reaction CODEINE 07/18/2021 2 - Rash MORPHINE 10/26/2020 4 - Hives Date Reviewed: 09/30/2022 Reviewed by: Kirill Noe, PT - Fully Assessed Prescriptions as of 10/21/2022 - acetaminophen (TYLENOL) 500 mg tablet Take 2 tablets by mouth every 8 hours as needed for pain. - ascorbic acid, vitamin C, (VITAMIN C) 500 mg tablet Take 1 tablet by mouth twice daily with meals for 27 doses. - aspirin, enteric coated (ASPIRIN, ENTERIC COATED) 81 mg EC tablet Take 1 tablet by mouth twice daily for 28 days. - metFORMIN (GLUCOPHAGE) 500 mg tablet Take 500 mg by mouth twice daily with meals. - albuterol HFA (PROVENTIL HFA, VENTOLIN HFA) 90 mcg/actuation inhaler Inhale 2 Puffs as instructed. - umeclidinium-vilanterol (ANORO ELLIPTA) 62.5-25 mcg/actuation inhaler Inhale 1 Puff as instructed once daily as needed (shortness of breath). - AMLODIPINE-BENAZEPRIL 10-20 mg per capsule Take 1 capsule by mouth once daily. - NEXIUM 40 mg capsule Take 40 mg by mouth once daily. - CRESTOR 10 mg tablet Take 10 mg by mouth once daily. Meds Comments as of 09/12/2022: no interactions 2-2-23. [facility] CNTHERAPYon 10-16-2022 CNTHERAPY OT/PT/Speech Visit (PTMDRG) ROBERTO OSBORN ([id number]) 1960 M Date Time Provider Department 10/16/22 8:00 AM TRE GO PTMDRG Date Time Provider Department Center 10/16/2022 8:00 AM [id number], SCOTT PTMDRG [facility] Reason for Visit: Physical Therapy [503] Primary Visit Diagnosis:Chronic pain of right knee [M25.561, G89.29] Allergies As of Date: 10/16/2022 Noted Allergy Reaction CODEINE 07/18/2021 2 - Rash MORPHINE 10/26/2020 4 - Hives Date Reviewed: 09/30/2022 Reviewed by: Kirill Noe, LORY - Fully Assessed Prescriptions as of 10/16/2022 - acetaminophen (TYLENOL) 500 mg tablet Take 2 tablets by mouth every 8 hours as needed for pain. - ascorbic acid, vitamin C, (VITAMIN C) 500 mg tablet Take 1 tablet by mouth twice daily with meals for 27 doses. - aspirin, enteric coated (ASPIRIN, ENTERIC COATED) 81 mg EC tablet Take 1 tablet by mouth twice daily for 28 days. - metFORMIN (GLUCOPHAGE) 500 mg tablet Take 500 mg by mouth twice daily with meals. - albuterol HFA (PROVENTIL HFA, VENTOLIN HFA) 90 mcg/actuation inhaler Inhale 2 Puffs as instructed. - umeclidinium-vilanterol (ANORO ELLIPTA) 62.5-25 mcg/actuation inhaler Inhale 1 Puff as instructed once daily as needed (shortness of breath). - AMLODIPINE-BENAZEPRIL 10-20 mg per capsule Take 1 capsule by mouth once daily. - NEXIUM 40 mg capsule Take 40 mg by mouth once daily. - CRESTOR 10 mg tablet Take 10 mg by mouth once daily. Meds Comments as of 09/12/2022: no interactions 09-12-22. [facility] 10-15-2022 CNPN Telephone (SANTIAGO) LAWROBERTO Zonia SR ([id number]) 1960 M Date Time Provider Department 10/15/22 CHIKA CARPENTER During your visit today, we recorded the following information about you: Sg Germaine PSS 10/15/2022 9:03 AM Signed LVM AND sent MC asking patient to CB AND R/S Thanks! Allergies As of Date: 10/15/2022 Noted Allergy Reaction CODEINE 07/18/2021 2 - Rash MORPHINE 10/26/2020 4 - Hives Date Reviewed: 09/30/2022 Reviewed by: Kirill Noe, PT - Fully Assessed Reason for Visit: Appointment [186] Prescriptions as of 10/17/2022 - acetaminophen (TYLENOL) 500 mg tablet Take 2 tablets by mouth every 8 hours as needed for pain. - ascorbic acid, vitamin C, (VITAMIN C) 500 mg tablet Take 1 tablet by mouth twice daily with meals for 27 doses. - aspirin, enteric coated (ASPIRIN, ENTERIC COATED) 81 mg EC tablet Take 1 tablet by mouth twice daily for 28 days. - metFORMIN (GLUCOPHAGE) 500 mg tablet Take 500 mg by mouth twice daily with meals. - albuterol HFA (PROVENTIL HFA, VENTOLIN HFA) 90 mcg/actuation inhaler Inhale 2 Puffs as instructed. - umeclidinium-vilanterol (ANORO ELLIPTA) 62.5-25 mcg/actuation inhaler Inhale 1 Puff as instructed once daily as needed (shortness of breath). - AMLODIPINE-BENAZEPRIL 10-20 mg per capsule Take 1 capsule by mouth once daily. - NEXIUM 40 mg capsule Take 40 mg by mouth once daily. - CRESTOR 10 mg tablet Take 10 mg by mouth once daily. Meds Comments as of 09/12/2022: no interactions 09-12-22. Problem List As Of Date 10/15/2022 Noted Resolved HTN (hypertension) [I10] 06/11/2013 Lateral meniscal tear [S83.289A] 07/12/2013 Medial meniscus tear [S83.249A] 07/12/2013 Knee pain [M25.569] 04/08/2014 Degenerative arthritis of knee [M17.9] 04/08/2014 GERD (gastroesophageal reflux disease) [K21.9] 07/29/2014 Knee pain, left [M25.562] 08/29/2014 Left leg weakness [R29.898] 08/29/2014 Stiffness of knee joint [M25.669] 08/29/2014 Gait abnormality [R26.9] 08/29/2014 Type 2 diabetes mellitus without complication, *05/25/2016 Pure hypercholesterolemia [E78.00] 03/10/2015 Essential hypertension, benign [I10] 06/11/2013 Allergic rhinitis [J30.9] 03/10/2015 Class 1 obesity with body mass index (BMI) of 3*08/16/2022 Former smoker [Z87.891] 08/16/2022 Pain in right hip [M25.551] 10/02/2022 Chronic pain of right knee [M25.561, G89.29] 10/02/2022 Encounter Status:Closed by SG JUDD on 10/17/22 [facility] CNTHERAPYon 10-14-2022 CNTHERAPY OT/PT/Speech Visit (PTMDRG) ROBERTO OSBORN SR ([id number]) 1960 M Date Time Provider Department 10/14/22 7:00 AM TOY COREAS PTMDRG Date Time Provider Department Center 10/14/2022 7:00 AM [id number], SUSAN [facility] Reason for Visit: Physical Therapy [503] Primary Visit Diagnosis:Chronic pain of right knee [M25.561, G89.29] Allergies As of Date: 10/14/2022 Noted Allergy Reaction CODEINE 07/18/2021 2 - Rash MORPHINE 10/26/2020 4 - Hives Date Reviewed: 09/30/2022 Reviewed by: Kirill Noe, PT - Fully Assessed Prescriptions as of 10/14/2022 - acetaminophen (TYLENOL) 500 mg tablet Take 2 tablets by mouth every 8 hours as needed for pain. - ascorbic acid, vitamin C, (VITAMIN C) 500 mg tablet Take 1 tablet by mouth twice daily with meals for 27 doses. - aspirin, enteric coated (ASPIRIN, ENTERIC COATED) 81 mg EC tablet Take 1 tablet by mouth twice daily for 28 days. - metFORMIN (GLUCOPHAGE) 500 mg tablet Take 500 mg by mouth twice daily with meals. - albuterol HFA (PROVENTIL HFA, VENTOLIN HFA) 90 mcg/actuation inhaler Inhale 2 Puffs as instructed. - umeclidinium-vilanterol (ANORO ELLIPTA) 62.5-25 mcg/actuation inhaler Inhale 1 Puff as instructed once daily as needed (shortness of breath). - AMLODIPINE-BENAZEPRIL 10-20 mg per capsule Take 1 capsule by mouth once daily. - NEXIUM 40 mg capsule Take 40 mg by mouth once daily. - CRESTOR 10 mg tablet Take 10 mg by mouth once daily. Meds Comments as of 09/12/2022: no interactions 2-2-23. Normal [facility] CNTHERAPYon 10-10-2022 CNTHERAPY OT/PT/Speech Visit (PTMDRG) ROBERTO OSBORN ([id number]) 1960 M Date Time Provider Department 10/10/22 11:15 AM AVA KEITA PTMDRG Date Time Provider Department Center 10/10/2022 11:15 AM [id number] KEITA PTMDRG [facility] Reason for Visit: Physical Therapy [503] Primary Visit Diagnosis:Chronic pain of right knee [M25.561, G89.29] Other Visit Diagnosis:S/P total knee arthroplasty, right [Z96.651] Allergies As of Date: 10/10/2022 Noted Allergy Reaction CODEINE 07/18/2021 2 - Rash MORPHINE 10/26/2020 4 - Hives Date Reviewed: 09/30/2022 Reviewed by: Kirill Noe, PT - Fully Assessed Prescriptions as of 10/10/2022 - acetaminophen (TYLENOL) 500 mg tablet Take 2 tablets by mouth every 8 hours as needed for pain. - ascorbic acid, vitamin C, (VITAMIN C) 500 mg tablet Take 1 tablet by mouth twice daily with meals for 27 doses. - aspirin, enteric coated (ASPIRIN, ENTERIC COATED) 81 mg EC tablet Take 1 tablet by mouth twice daily for 28 days. - docusate sodium (COLACE) 100 mg capsule Take 1 capsule by mouth twice daily as needed for constipation. - metFORMIN (GLUCOPHAGE) 500 mg tablet Take 500 mg by mouth twice daily with meals. - albuterol HFA (PROVENTIL HFA, VENTOLIN HFA) 90 mcg/actuation inhaler Inhale 2 Puffs as instructed. - umeclidinium-vilanterol (ANORO ELLIPTA) 62.5-25 mcg/actuation inhaler Inhale 1 Puff as instructed once daily as needed (shortness of breath). - AMLODIPINE-BENAZEPRIL 10-20 mg per capsule Take 1 capsule by mouth once daily. - NEXIUM 40 mg capsule Take 40 mg by mouth once daily. - CRESTOR 10 mg tablet Take 10 mg by mouth once daily. Meds Comments as of 09/12/2022: no interactions -10-03. [facility] CNTHERAPYon 10-02-2022 CNTHERAPY OT/PT/Speech Visit (PTMDRG) ROBERTO OSBORN SR ([id number]) 1960 M Date Time Provider Department 10/02/22 8:45 AM TRE GO PTMDRG Date Time Provider Department Center 10/02/2022 8:45 AM [id number], SCOTT PTMDRG [facility] Reason for Visit: PT Eval [747] Visit Diagnoses:Pain in right hip [M25.551] Chronic pain of right knee [M25.561, G89.29] Allergies As of Date: 10/02/2022 Noted Allergy Reaction CODEINE 07/18/2021 2 - Rash MORPHINE 10/26/2020 4 - Hives Date Reviewed: 09/30/2022 Reviewed by: Kirill Noe PT - Fully Assessed Prescriptions as of 10/02/2022 - acetaminophen (TYLENOL) 500 mg tablet Take 2 tablets by mouth every 8 hours as needed for pain. - ascorbic acid, vitamin C, (VITAMIN C) 500 mg tablet Take 1 tablet by mouth twice daily with meals for 27 doses. - aspirin, enteric coated (ASPIRIN, ENTERIC COATED) 81 mg EC tablet Take 1 tablet by mouth twice daily for 28 days. - docusate sodium (COLACE) 100 mg capsule Take 1 capsule by mouth twice daily as needed for constipation. - metFORMIN (GLUCOPHAGE) 500 mg tablet Take 500 mg by mouth twice daily with meals. - albuterol HFA (PROVENTIL HFA, VENTOLIN HFA) 90 mcg/actuation inhaler Inhale 2 Puffs as instructed. - umeclidinium-vilanterol (ANORO ELLIPTA) 62.5-25 mcg/actuation inhaler Inhale 1 Puff as instructed once daily as needed (shortness of breath). - AMLODIPINE-BENAZEPRIL 10-20 mg per capsule Take 1 capsule by mouth once daily. - NEXIUM 40 mg capsule Take 40 mg by mouth once daily. - CRESTOR 10 mg tablet Take 10 mg by mouth once daily. Meds Comments as of 09/12/2022: no interactions 2. Normal [facility] XR Knee AP and Lateral and M jean pierre 09-26-2022 IMPRESSION: Al NASCIMENTO [employer] Analyst: ENOCH Transcribe Date/Time: Sep 26 2022 1:59P Dictated by : JIHAN MIX MD This examination was interpreted and the report reviewed and electronically signed by: JIHAN MIX MD on Sep 26 2022 2:00PM EST [facility] * * *Final Report* * * DATE OF EXAM: Sep 25 2022 10:03AM ALFREDO 5209 - XR KNEE 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 RT / PROCEDURE REASON: M25.561-Right knee pain, unspecified chronicity * * * * Physician Interpretation * * * * PROCEDURE: Right knee INDICATION: Right knee pain, unspecified chronicity .follow up TECHNIQUE: XR KNEE 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 RT COMPARISON: 09/10/2022 FINDINGS: The total knee arthroplasty remains in satisfactory position without evidence for loosening. Expected postoperative soft tissue swelling and small joint effusion. No acute fracture or soft tissue emphysema. 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 [facility] Provider, Sunny Jiang - 09/26/2022 * * *Final Report* * * DATE OF EXAM: Sep 25 2022 10:03AM ALFREDO 5209 - XR KNEE 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 RT / PROCEDURE REASON: M25.561-Right knee pain, unspecified chronicity * * * * Physician Interpretation * * * * PROCEDURE: Right knee INDICATION: Right knee pain, unspecified chronicity .follow up TECHNIQUE: XR KNEE 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 RT COMPARISON: 09/10/2022 FINDINGS: The total knee arthroplasty remains in satisfactory position without evidence for loosening. Expected postoperative soft tissue swelling and small joint effusion. No acute fracture or soft tissue emphysema. 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 IMPRESSION IMPRESSION: Stable TKA [employer] Analyst: PSCB Transcribe Date/Time: Sep 26 2022 1:59P Dictated by : JIHAN MIX MD This examination was interpreted and the report reviewed and electronically signed by: JIHAN MIX MD on Sep 26 2022 2:00PM EST [facility] XR Knee AP and Lateral and M erchantsOrdered By: Ccf Provider on 09-26-2022 [facility] CNOVon 09-25-2022 CNOV Office Visit (SANTIAGO ) ROBERTO ([id number]) 1960 M Date Time Provider Department 09/25/22 10:00 AM MATTHIEU ESPARZA During your visit today, we recorded the following information about you: Matthieu Esparza PA-C 09/25/2022 10:25 AM Signed Post-op Office Visit Roberto Osborn 62 year old September 25, 2022 10:08 AM Surgery Date: 09/10/2022 History: Roberto Osborn SR is now 2 weeks out from right TKA. Post-operative course has been without complication. No readmissions. Subjective: Patient reports 6/10 pain. Overall is doing well. Using crutches ambulatory aid. Not taking any opioid pain medication. Patients rates his condition as improving. Reports compliance with DVT ppx. Participating in home PT. Objective: RLE: Ambulates with crutches Incision well-approximated, no drainage, well-healing. Suture tails trimmed today. Knee ROM 5 - 75 degrees Distally DP/PT palpable Distally SILT S/S/SP/DP/T intact at baseline Distally DF/EHL/PF motor intact at baseline Negative juan/calf tenderness Xrays: Well-positioned total knee replacement in appropriate alignment with no evidence of loosening Assessment and Plan: Roberto Osborn SR is here for a first post-op appointment, overall doing well - continue ice, rest, and use of non-narcotic analgesia as needed - reviewed antibiotic prophylactic protocols - discussed home exercises and therapy - continue ASA DVT prophylaxis for 4 weeks total - WBAT on operative extremity - discussed driving requirement: 6 weeks post-op, off narcotic pain medication, adequate brake time - follow up in 4 weeks for repeat clinical evaluation with Dr. Carpenter Normal post-operative course discussed with patient. Patient reassured and supported. All questions answered. TONJA RuvalcabaC Allergies As of Date: 09/25/2022 Noted Allergy Reaction CODEINE 07/18/2021 2 - Rash MORPHINE 10/26/2020 4 - Hives Date Reviewed: 09/25/2022 Reviewed by: Selena Alcantar MA - Fully Assessed Reason for Visit: Established Patient [175] Follow Up [171] Post Op [174] Knee Replacement [363] Primary Visit Diagnosis:S/P total knee arthroplasty, right [Z96.651] Order(s):CONSULT TO PHYSICAL THERAPY [9094] Order #: [id number]: 1 FUTURE Prescriptions as of 09/25/2022 - traMADol (ULTRAM) 50 mg tablet Take 1-2 tablets by mouth every 6 hours as needed for pain for up to 7 days. - acetaminophen (TYLENOL) 500 mg tablet Take 2 tablets by mouth every 8 hours as needed for pain. - ascorbic acid, vitamin C, (VITAMIN C) 500 mg tablet Take 1 tablet by mouth twice daily with meals for 27 doses. - aspirin, enteric coated (ASPIRIN, ENTERIC COATED) 81 mg EC tablet Take 1 tablet by mouth twice daily for 28 days. - docusate sodium (COLACE) 100 mg capsule Take 1 capsule by mouth twice daily as needed for constipation. - metFORMIN (GLUCOPHAGE) 500 mg tablet Take 500 mg by mouth twice daily with meals. - albuterol HFA (PROVENTIL HFA, VENTOLIN HFA) 90 mcg/actuation inhaler Inhale 2 Puffs as instructed. - umeclidinium-vilanterol (ANORO ELLIPTA) 62.5-25 mcg/actuation inhaler Inhale 1 Puff as instructed once daily as needed (shortness of breath). - AMLODIPINE-BENAZEPRIL 10-20 mg per capsule Take 1 capsule by mouth once daily. - NEXIUM 40 mg capsule Take 40 mg by mouth once daily. - CRESTOR 10 mg tablet Take 10 mg by mouth once daily. Meds Comments as of 09/12/2022: no interactions 09-12-22. Problem List As Of Date 09/25/2022 Noted Resolved HTN (hypertension) [I10] 06/11/2013 Lateral meniscal tear [S83.289A] 07/12/2013 Medial meniscus tear [S83.249A] 07/12/2013 Knee pain [M25.569] 04/08/2014 Degenerative arthritis of knee [M17.9] 04/08/2014 GERD (gastroesophageal reflux disease) [K21.9] 07/29/2014 Knee pain, left [M25.562] 08/29/2014 Left leg weakness [R29.898] 08/29/2014 Stiffness of knee joint [M25.669] 08/29/2014 Gait abnormality [R26.9] 08/29/2014 Type 2 diabetes mellitus without complication, *05/25/2016 Pure hypercholesterolemia [E78.00] 03/10/2015 Essential hypertension, benign [I10] 06/11/2013 Allergic rhinitis [J30.9] 03/10/2015 Class 1 obesity with body mass index (BMI) of 3*08/16/2022 Former smoker [Z87.891] 08/16/2022 Encounter Status:Closed by MATTHIEU ESPARZA on 09/25/22 [facility] XR KNEE 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 R Ton 09-25-2022 XR KNEE 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 RT * * *Final Report* * * DATE OF EXAM: Sep 25 2022 10:03AM ALFREDO 5209 - XR KNEE 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 RT / PROCEDURE REASON: M25.561-Right knee pain, unspecified chronicity * * * * Physician Interpretation * * * * PROCEDURE: Right knee INDICATION: Right knee pain, unspecified chronicity .follow up TECHNIQUE: XR KNEE 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 RT COMPARISON: 09/10/2022 FINDINGS: The total knee arthroplasty remains in satisfactory position without evidence for loosening. Expected postoperative soft tissue swelling and small joint effusion. No acute fracture or soft tissue emphysema. 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 IMPRESSION: Stable TKA [employer] Computer Systems Analyst: PSCB Transcribe Date/Time: Sep 26 2022 1:59P Dictated by : JIHAN MIX MD This examination was interpreted and the report reviewed and electronically signed by: JIHAN MXI MD on Sep 26 2022 2:00PM EST [id number] [facility] XR Knee AP and Lateral and M erchantson 09-25-2022 Radiology Study observation (narrative) [facility] Anne 09-14-2022 CNPN Telephone (HCSIND) ROBERTO OSBORN SR ([id number]) 1960 M Date Time Provider Department 09/14/22 TRUPTI BAR During your visit today, we recorded the following information about you: Trupti Bar PTA 09/14/2022 8:38 AM Signed Patient requested to cancel PT visit today due to having to be somewhere at noon and not sure when he will be back. Patient stated he was doing ok and requested Friday for next PT visit. Allergies As of Date: 09/14/2022 Noted Allergy Reaction CODEINE 07/18/2021 2 - Rash MORPHINE 10/26/2020 4 - Hives Date Reviewed: 09/12/2022 Reviewed by: Kirill Noe PT - Fully Assessed Reason for Visit: Home Care [4073] Cmt: Unmade PT visit Prescriptions as of 09/14/2022 - acetaminophen (TYLENOL) 500 mg tablet Take 2 tablets by mouth every 8 hours as needed for pain. - ascorbic acid, vitamin C, (VITAMIN C) 500 mg tablet Take 1 tablet by mouth twice daily with meals for 27 doses. - aspirin, enteric coated (ASPIRIN, ENTERIC COATED) 81 mg EC tablet Take 1 tablet by mouth twice daily for 28 days. - docusate sodium (COLACE) 100 mg capsule Take 1 capsule by mouth twice daily as needed for constipation. - traMADol (ULTRAM) 50 mg tablet Take 1-2 tablets by mouth every 6 hours as needed for pain for up to 7 days. - polyethylene glycol 3350 (MIRALAX) 17 gram/dose powder Take 17 g by mouth once daily as needed for constipation for up to 10 days. Dissolve dose in 4 - 8 ounces of liquid and take as directed. - metFORMIN (GLUCOPHAGE) 500 mg tablet Take 500 mg by mouth twice daily with meals. - albuterol HFA (PROVENTIL HFA, VENTOLIN HFA) 90 mcg/actuation inhaler Inhale 2 Puffs as instructed. - umeclidinium-vilanterol (ANORO ELLIPTA) 62.5-25 mcg/actuation inhaler Inhale 1 Puff as instructed once daily as needed (shortness of breath). - AMLODIPINE-BENAZEPRIL 10-20 mg per capsule Take 1 capsule by mouth once daily. - NEXIUM 40 mg capsule Take 40 mg by mouth once daily. - CRESTOR 10 mg tablet Take 10 mg by mouth once daily. Meds Comments as of 09/12/2022: no interactions 2-2-23. Problem List As Of Date 09/14/2022 Noted Resolved HTN (hypertension) [I10] 06/11/2013 Lateral meniscal tear [S83.289A] 07/12/2013 Medial meniscus tear [S83.249A] 07/12/2013 Knee pain [M25.569] 04/08/2014 Degenerative arthritis of knee [M17.9] 04/08/2014 GERD (gastroesophageal reflux disease) [K21.9] 07/29/2014 Knee pain, left [M25.562] 08/29/2014 Left leg weakness [R29.898] 08/29/2014 Stiffness of knee joint [M25.669] 08/29/2014 Gait abnormality [R26.9] 08/29/2014 Type 2 diabetes mellitus without complication, *05/25/2016 Pure hypercholesterolemia [E78.00] 03/10/2015 Essential hypertension, benign [I10] 06/11/2013 Allergic rhinitis [J30.9] 03/10/2015 Class 1 obesity with body mass index (BMI) of 3*08/16/2022 Former smoker [Z87.891] 08/16/2022 Encounter Status:Closed by TRUPTI BAR on 09/14/22 [facility] Anne 09-12-2022 CNPN Telephone (ME2E) ROBERTO OSBORN SR ([id number]) 1960 M Date Time Provider Department 09/12/22 CHIKA CARPENTER MN2E During your visit today, we recorded the following information about you: FILIBERTO Villalobos 09/12/2022 10:31 AM Addendum Kirill PT at [facility]. Pic of drainage uploaded in [employer]. Per Manjeet GARCIA, remove silverlon and use ABD and blanca wrap. Hold ROM for weekend. Call back if worsens or needs to be seen. Allergies As of Date: 09/12/2022 Noted Allergy Reaction CODEINE 07/18/2021 2 - Rash MORPHINE 10/26/2020 4 - Hives Date Reviewed: 09/11/2022 Reviewed by: Gem Yen, SHE - Fully Assessed Reason for Visit: Patient Update [1234] Prescriptions as of 09/12/2022 - acetaminophen (TYLENOL) 500 mg tablet Take 2 tablets by mouth every 8 hours as needed for pain. - ascorbic acid, vitamin C, (VITAMIN C) 500 mg tablet Take 1 tablet by mouth twice daily with meals for 27 doses. - aspirin, enteric coated (ASPIRIN, ENTERIC COATED) 81 mg EC tablet Take 1 tablet by mouth twice daily for 28 days. - docusate sodium (COLACE) 100 mg capsule Take 1 capsule by mouth twice daily as needed for constipation. - traMADol (ULTRAM) 50 mg tablet Take 1-2 tablets by mouth every 6 hours as needed for pain for up to 7 days. - polyethylene glycol 3350 (MIRALAX) 17 gram/dose powder Take 17 g by mouth once daily as needed for constipation for up to 10 days. Dissolve dose in 4 - 8 ounces of liquid and take as directed. - metFORMIN (GLUCOPHAGE) 500 mg tablet Take 500 mg by mouth twice daily with meals. - albuterol HFA (PROVENTIL HFA, VENTOLIN HFA) 90 mcg/actuation inhaler Inhale 2 Puffs as instructed. - umeclidinium-vilanterol (ANORO ELLIPTA) 62.5-25 mcg/actuation inhaler Inhale 1 Puff as instructed as needed. - AMLODIPINE-BENAZEPRIL 10-20 mg per capsule Take 1 capsule by mouth once daily. - NEXIUM 40 mg capsule Take 40 mg by mouth once daily. - CRESTOR 10 mg tablet Take 10 mg by mouth once daily. Problem List As Of Date 09/12/2022 Noted Resolved HTN (hypertension) [I10] 06/11/2013 Lateral meniscal tear [S83.289A] 07/12/2013 Medial meniscus tear [S83.249A] 07/12/2013 Knee pain [M25.569] 04/08/2014 Degenerative arthritis of knee [M17.9] 04/08/2014 GERD (gastroesophageal reflux disease) [K21.9] 07/29/2014 Knee pain, left [M25.562] 08/29/2014 Left leg weakness [R29.898] 08/29/2014 Stiffness of knee joint [M25.669] 08/29/2014 Gait abnormality [R26.9] 08/29/2014 Type 2 diabetes mellitus without complication, *05/25/2016 Pure hypercholesterolemia [E78.00] 03/10/2015 Essential hypertension, benign [I10] 06/11/2013 Allergic rhinitis [J30.9] 03/10/2015 Class 1 obesity with body mass index (BMI) of 3*08/16/2022 Former smoker [Z87.891] 08/16/2022 Encounter Status:Closed by RONY DOYLE on 09/12/22 [facility] Basic metabolic 2000 panelon 09-11-2022 Anion gap [Moles/Vol] 9 mmol/L Normal 9-18 [facility] Comment on above: Order Comment: Speci men Type: BLOOD SPECIMENOrdering Facility: [facility] Address: [address] [place] [address] Performed By: #### 2 4321-2 ####[facility] LABORATORYCLIA [id number] [place] [address] [place] Calcium [Mass/Vol] 8.8 mg/dL Normal 8.5-10.2 [facility] Comment on above: Order Comment: Speci men Type: BLOOD SPECIMENOrdering Facility: [facility] Address: [address] [place] [address] Performed By: #### 2 4321-2 ####BOONE LABORATORYCLIA [id number] [place] [address] [place] Chloride [Moles/Vol] 103 mmol/L Normal 97-105 [facility] Comment on above: Order Comment: Speci men Type: BLOOD SPECIMENOrdering Facility: [facility] Address: [address] [place] [address] Performed By: #### 2 4321-2 ####BOONE LABORATORYCLIA [id number] [place] [address] [place] CO2 [Moles/Vol] 27 mmol/L Normal 22-30 [facility] Comment on above: Order Comment: Speci men Type: BLOOD SPECIMENOrdering Facility: [facility] Address: [address] [place] [address] Performed By: #### 2 4321-2 ####BOONE LABORATORYCLIA [id number] [place] [address] [place] Creatinine [Mass/Vol] 0.54 mg/dL Low 0.73-1.22 [facility] Comment on above: Order Comment: Speci men Type: BLOOD SPECIMENOrdering Facility: [facility] Address: [address] [place] [address] Performed By: #### 2 4321-2 ####BOONE LABORATORYCLIA [id number] [place] [address] [place] ESTIMATED GLOMERULAR FILTRATION RATE 112 mL/min/1.73m??? Normal >=60 [facility] Comment on above: Order Comment: Vera grant Type: BLOOD SPECIMENOrdering Facility: [facility] Address: [address] [id number] Result Comment: Snehal mated Glomerular Filtration Rate (eGFR) is calculated using the 2020 CKD-EPI creatinine equation. This equation utilizes serum creatinine, sex, and age as parameters. The creatinine assay has traceable calibration to isotope dilution-mass spectrometry. Refer to KDIGO guidelines for clinical interpretation. In patients with unstable renal function, e.g. those with acute kidney injury, the eGFR may not accurately reflect actual GFR. Performed By: #### 2 4321-2 ####BOONE LABORATORYCLIA [id number] [place] [address] [place] Glucose [Mass/Vol] 116 mg/dL High 74-99 [facility] Comment on above: Order Comment: Vera grant Type: BLOOD SPECIMENOrdering Facility: [facility] Address: [address] [address] Result Comment: The [place] Diabetes Association (ADA) provides guidance for cutoff values for fasting glucose and random glucose. The ADA defines fasting as no caloric intake for at least 8 hours. Fasting plasma glucose results between 100 to 125 mg/dL indicate increased risk for diabetes (prediabetes). Fasting plasma glucose results greater than or equal to 126 mg/dL meet the criteria for diagnosis of diabetes. In the absence of unequivocal hyperglycemia, results should be confirmed by repeat testing. In a patient with classic symptoms of hyperglycemia or hyperglycemic crisis, random plasma glucose results greater than or equal to 200 mg/dL meet the criteria for diagnosis of diabetes. Reference: Standards of Medical Care in Diabetes 2016, [place] [employer] Association. Diabetes Care. 2016.39(Suppl 1). Performed By: #### 2 4321-2 ####[facility] LABORATORYCLIA [id number] [place] [id number] [place] Potassium [Moles/Vol] 3.7 mmol/L Normal 3.7-5.1 [facility] Comment on above: Order Comment: Vera grant Type: BLOOD SPECIMENOrdering Facility: [facility] Address: [address] Performed By: #### 2 4321-2 ####BOONE LABORATORYCLIA [id number] [address] [place] [facility] Sodium [Moles/Vol] 139 mmol/L Normal 136-144 [facility] Comment on above: Order Comment: Speci men Type: BLOOD SPECIMENOrdering Facility: [facility] Address: [address] [place] [address] Performed By: #### 2 4321-2 ####BOONE LABORATORYCLIA [id number] [address] Urea nitrogen [Mass/Vol] 6 mg/dL Low 9-24 [facility] Comment on above: Order Comment: Speci men Type: BLOOD SPECIMENOrdering Facility: [facility] Address: [address] [place] [address] Performed By: #### 2 4321-2 ####BOONE LABORATORYCLIA [id number] [address] OF [facility] CASE MANAGEMon 09-11-2022 CASE MANAGEM HNO ID: [id number] Author: Taylor Boyce RN Service: ? Author Type: Registered Nurse Type: Care Mgt Progress Note Filed: 09/11/2022 2:24 PM Note Text: CARE MANAGEMENT DISCHARGE NOTE SERVICE DATE: 09/11/2022 SERVICE TIME: 2:23 PM LOS: 0 days Admission Date: 09/10/2022 DISCHARGE ARRANGEMENT (list agency and phone number) Discharge Arrangement: Home with Home Health Provider Name: [facility] CAREGIVER ASSESSMENT: Caregiver is ready, willing and able to meet the patient's needs as recommended by the inter-professional team:: Yes Patient's transition needs and plan for meeting these needs: Home PT HANDOFF COMMUNICATION: Handoff to: Primary Care Physician Primary Care Physician Name/Phone: Dr. Timothy Correa- [phone] TRANSPORTATION ARRANGEMENTS: Transportation Arrangements: Car- to transport Discharge Information Row Name Admission (Current) from 09/10/[address] [facility] Care Agency [facility] Start of Care -- Within 24- 48 hours Needs Prior to Discharge: Ready for Discharge Discharge order written for today. [facility] will be seeing the patient for Home PT with a start of care within 24- 48 hours. Notified [facility] of the patients discharge home today. SIGNATURE: Taylor Boyce RN PATIENT NAME: Roberto Osborn SR DATE: September 11, 2022 TIME: 2:23 PM PAGER/CONTACT #: [phone] [facility] CASE MANAGEM HNO ID: [id number] Author: Taylor Boyce RN Service: ? Author Type: Registered Nurse Type: Care Mgt Progress Note Filed: 09/11/2022 11:11 AM Note Text: CARE MANAGEMENT PROGRESS NOTE SERVICE DATE: 09/11/2022 SERVICE TIME: 11:10 AM LOS: 0 days Needs Prior to Discharge: To Be Determined [facility] able to accept. CM department will continue to follow for DC needs. SIGNATURE: Taylor Boyce RN PATIENT NAME: Roberto Osborn SR DATE: September 11, 2022 TIME: 11:10 AM PAGER/CONTACT #: [phone] [facility] CASE MGT INIT ASSESon 2022 CASE MGT INIT [facility] HNO ID: [id number] Author: Taylor Boyce RN Service: ? Author Type: Registered Nurse Type: Care Mgt Initial Assessment Filed: 09/11/2022 10:22 AM Note Text: CARE MANAGEMENT: ASSESSMENT AND DISCHARGE PLAN SERVICE DATE: September 11, 2022 SERVICE TIME: 10:21 AM PRIMARY CARE PHYSICIAN: Timothy Correa MD Primary Contact: Extended Emergency Contact Information Primary Emergency Contact: Lien Osborn Address: [address] [place] [id number] Relation: Spouse ADMISSION STATUS: Extended Recovery Insurance Provider: BLUE CARD PPO OOS NEEDS PRIOR TO DISCHARGE Needs Prior to Discharge: To Be Determined POTENTIAL TRANSITION PLANS To Be Determined Based on clinical judgement, Care Management will address the following needs: Functional Patient's perception of need for this admission: Elective surgery ADVANCE DIRECTIVES Current Advance Directive: None Direct Mail Manager Attempted to Assist with AD Completion: Yes Action: Patient Unwilling MS/BEHAVIOR Baseline Mental Status Prior to this Illness what was the patient's Baseline Mental Status?: Alert AND Oriented Prior to this illness, has anyone described the patient having any of the following behaviors?: Not Applicable Relationship of the informant to the patient:: Self READMISSION Last Discharge Date: 07/18/21 Is this Within the Past 30 days? 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 Timothy Correa Does the patient have transportation upon discharge?: Yes Use of any community resources?: No Does the patient have a stable and supportive living arrangement and home setting?: Yes Are there any potential risks or gaps identified by risk/functional/fall,et c. scores in the EMR?: No Any potential risks related to substance abuse and/or behavioral health?: No Based on clinical judgement, Care Management will address the following needs: Functional CAREGIVER ASSESSMENT Caregiver is ready, willing and able to meet the patient's needs as recommended by the inter-professional team:: Yes Name of Caregiver: Javi Emmanuel Patient's transition needs and plan for meeting these needs: TBD MEDICAL Medical Needs: Two or more chronic diseases;Fall risk or frequent falls Health Issues Impacting Discharge Plan: Chronic Chronic: Diabetes, HTN Medication Adherance I am convinced of the importance of my prescription medication: 0 - Agree Completely I worry that my prescription medication will do more harm than good to me : 0 - Disagree Completely I feel financially burdened by my ucw-en-heqjys expenses for my prescription medication:: 0 - Disagree Completely Risk Score: 0 Patient is categorized as: Low risk < 2 SOCIAL Living Arrangements: Home Lives With: Spouse Financial Resources: Employed Supportive Patient Contact:: Yes Contact Resources: Family Family Name/Phone: Javi Osborn Is Patient Psychosocially Complex?: No Contact Resources: Family Family Name/Phone: Javi sOborn Health Literacy How often do you need to have someone help you when you read instructions, pamphlets, or other written material from your doctor or pharmacy? : 1 - Never How confident are you filling out medical forms by yourself?: 1 - Extremely If Patient scores > 3 on either question, the following interventions were put into place:: Patient did not score > 3 on either question. Food Insecurity: Not on file Financial Resource Strain: Not on file Transportation Needs: Not on file Housing Stability: Not on file FUNCTIONAL How do you manage to accomplish the following: Independent: Ambulation;Bathe/Shower ;Dress;Meals/Meal Prep;Going to the bathroom;Medication Management;Transportati on to appointments/community Services/Needs//Equipme nt Does Patient Currently Receive Any Community Services or Home Care?: None Equipment Prior to Admission: Crutches;Tub bench/chair;Cane;Other: See Comment (Adjustable bed) Has the Patient Been in a Intermediate Facility in the Past 30 days?: No No behavioral/cognitive discharge barriers identified at this time. FREEDOM OF CHOICE EXPLAINED: [place] of Choice Given: Yes Level of Care Discussed: Home Care Financial Disclosure Provided: Yes Are you interested in bedside delivery of your medications? No - Coco Boone Is Patient Psychosocially Complex?: No ASSESSMENT AND PLAN: Review of the chart and met with the patient. The patient lives with his in a 2 story home with his bedroom and bathroom on the 2nd floor. PT- Home PT. Discussed PT recommendations with the patient, referral to [facility]. CM department will continue to follow for DC needs. SIGNATURE: Taylor (more content not included)... Normal [facility] CBC panel Auto (Bld)on 09-11 Erythrocyte distribution width (RBC) [Ratio] 13.9 % Normal 11.5-15.0 [facility] Comment on above: Order Comment: Vera grant Type: BLOOD SPECIMENOrdering Facility: [facility] Address: [address] [place] [address] Performed By: #### 5 8410-2 ####[facility] LABORATORYCLIA [id number] [place] [address] [place] Hematocrit (Bld) [Volume fraction] 35.7 % Low 39.0-51.0 [facility] Comment on above: Order Comment: Vera grant Type: BLOOD SPECIMENOrdering Facility: [facility] Address: [address] [address] Performed By: #### 5 8410-2 ####[facility] LABORATORYCLIA [id number] [place] [address] [place] Hemoglobin (Bld) [Mass/Vol] 12.0 g/dL Low 13.0-17.0 [facility] Comment on above: Order Comment: Speci men Type: BLOOD SPECIMENOrdering Facility: [facility] Address: [address] [place] [address] Performed By: #### 5 8410-2 ####BO[facility] LABORATORYCLIA [id number] [address] MCH (RBC) [Entitic mass] 29.7 pg Normal 26.0-34.0 [facility] Comment on above: Order Comment: Speci men Type: BLOOD SPECIMENOrdering Facility: [facility] Address: [address] [place] [address] Performed By: #### 5 8410-2 ####BO[facility] LABORATORYCLIA [id number] [address] MCHC (RBC) [Mass/Vol] 33.6 g/dL Normal 30.5-36.0 [facility] Comment on above: Order Comment: Speci men Type: BLOOD SPECIMENOrdering Facility: [facility] Address: [address] [place] [address] Performed By: #### 5 8410-2 ####BO[facility] LABORATORYCLIA [id number] [address] MCV (RBC) [Entitic vol] 88.4 fL Normal 80.0-100.0 [facility] Comment on above: Order Comment: Speci men Type: BLOOD SPECIMENOrdering Facility: [facility] Address: [address] [place] [address] Performed By: #### 5 8410-2 ####BO[facility] LABORATORYCLIA [id number] [address] Nucleated RBC (Bld) [#/Vol] 10*3/uL Normal <0.01 [facility] Comment on above: Order Comment: Speci men Type: BLOOD SPECIMENOrdering Facility: [facility] Address: [address] [place] [address] Performed By: #### 5 8410-2 ####BO[facility] LABORATORYCLIA [id number] [place] [address] [place] Platelet mean volume (Bld) [Entitic vol] 9.3 fL Normal 9.0-12.7 [facility] Comment on above: Order Comment: Speci men Type: BLOOD SPECIMENOrdering Facility: [facility] Address: [address] [place] [address] Performed By: #### 5 8410-2 ####[facility] LABORATORYCLIA [id number] [address] [place] Platelets (Bld) [#/Vol] 287 10*3/uL Normal 150-400 [facility] Comment on above: Order Comment: Speci men Type: BLOOD SPECIMENOrdering Facility: [facility] Address: [address] [place] [address] Performed By: #### 5 8410-2 ####[facility] LABORATORYCLIA [id number] [address] [place] RBC (Bld) [#/Vol] 4.04 10*6/uL Low 4.20-6.00 [facility] Comment on above: Order Comment: Speci men Type: BLOOD SPECIMENOrdering Facility: [facility] Address: [address] [place] [address] Performed By: #### 5 8410-2 ####[facility] LABORATORYCLIA [id number] [address] [place] WBC (Bld) [#/Vol] 11.09 10*3/uL High 3.70-11.00 [facility] Comment on above: Order Comment: Speci men Type: BLOOD SPECIMENOrdering Facility: [facility] Address: [address] [place] [address] Performed By: #### 5 8410-2 ####[facility] LABORATORYCLIA [id number] [address] [place] CNCOon 09-11-2022 CNCO Letter Text Normal [facility] CNDSon 09-11-2022 CNDS HNO ID: [id number] Author: Matthieu Esparza PA-C Service: Orthopaedic Surgery Author Type: Physician Sheet Metal Fabricator Type: Discharge Summary Filed: 09/11/2022 12:42 PM Note Text: Attestation signed by Chika Carpenter MD at 09/12/2022 8:01 AM Agree with above DISCHARGE SUMMARY PATIENT NAME: Roberto Osborn SR ADMISSION DATE: 09/10/2022 DISCHARGE DATE: 09/11/2022 PATIENT DISCHARGE SUMMARY C O N F I D E N T I A L I N F O R M A T I O N The following is a brief overview of your hospitalization. Some of the information contained on this summary may be confidential. This information should be kept in your records and should be shared with your regular doctor. These instructions explain what you or your manager respiratory care need to do to continue your care at home or at another healthcare facility Please go over these instructions with your nurse and manager respiratory care. If you are not sure about something, please ask. ------ Highest Readmission Risk Score: 10 The 30 day readmissions risk score is derived from an internally validated risk model which evaluates patient level characteristics, utilization history, medication orders and lab results up until the day of discharge. Patients with a score of 40 or above are considered highest risk for readmission. Specific patient level drivers will be listed at the bottom of the summary. The 30 day readmissions risk score is derived from an internally validated risk model which evaluates patient level characteristics, utilization history, medication orders and lab results up until the day of discharge. Patients with a score of 40 or above are considered highest risk for readmission. Where I Will be Going after Discharge: Home with Home Health My Condition at Discharge: Stable PRINCIPAL DIAGNOSIS: (Reason after study for this admission): Procedure(s): ROBOTIC ASSISTED TOTAL KNEE ARTHROPLASTY OTHER DIAGNOSES: Patient Active Hospital Problem List: No active hospital problems. OPERATIONS PERFORMED: Procedure(s): ROBOTIC ASSISTED TOTAL KNEE ARTHROPLASTY My Doctors and Medical Team: My Main Hospital Doctor: Doctor Chika Carpenter MD PHYSICAL EXAM: See daily progress note Vitals: BP 137/75 Pulse 85 Temp 37.2 ?C (99 ?F) (Oral) Resp 16 Ht 177.8 cm (5' 10) Wt 109 kg (240 lb 4.8 oz) SpO2 95% BMI 34.48 kg/m? SUMMARY OF WHAT HAPPENED WHILE PATIENT WAS IN THE HOSPITAL: The patient was followed in the office by Dr. Carpenter in clinic for right knee osteoarthritis. It was determined the patient would benefit from right total knee arthroplasty. The procedure, its risks, benefits, and potential complications were discussed in detail prior to surgery. The patient conveyed understanding of all topics and consented to surgery. The patient was admitted to the hospital. Underwent an elective right total knee arthroplasty on 09/10/[address] Carpenter. The patient tolerated the procedure well and was returned to the Post Anesthesia Care Unit in stable condition. Vital signs per PACU protocol. VTE risk assessment performed. O2 therapy monitored by Respiratory Therapy to include incentive spirometry, ADL, wound and support per physician order set postop protocol. PT and OT to evaluate and treat. IV antibiotics, antiemetics, aspirin for DVT prophylaxis and pain medication were given. The patient progressed with physical therapy. Lab values and vital signs were monitored and remained stable. The incision remained clean, dry and intact. Thigh and calf are not swollen. No signs of DVT or infection. The patient progressed with physical therapy towards goal of safety and independence. Patient was determined safe for discharge to home with home health care on 09/11/2022. TREATMENT / WOUND CARE: If you have any concerns about your wound, please contact the office. Keep wound and incision area clean and dry. You may remove your dressing on POD #7. If it remains drainage-free, you may leave the dressing off, keeping the wound open to air. If there is any drainage please contact the office You may not submerge the wound under standing water for 6 weeks time after surgery (i.e. no baths, no hot tubs, no swimming pools). Do not rub the wound, but rather pat dry. If you have non-absorbable sutures in place, these will be taken out on your 1st follow-up appointment. Observe the wound for signs of infection, including increased redness, swelling, or persistent drainage around the incision site. It is normal for your wound to be warmer immediately after surgery (even up to 4-6 weeks after surgery). If you begin to experience fevers, chills, night sweats, or flu-like symptoms (more content not included)... [facility] 09[facility]2022 [facility] Telephone ([facility]) ROBERTO OSBORN SR ([id number]) 1960 M Date Time Provider Department [facility]11[facility] During [facility] visit today, we recorded the following information about you: Sanaz Dean [facility] 09/11/2022 11:22 AM Signed Welcome Home Call: a. Date and Time: 11:21 AM 09/11/2022 b. Contact name/relationship: Patient, Roberto c. Have you been active with any Home Care company in the last 60 days(such as help with bathing, filling medications, checking your blood pressure) ? No. d. Was patient given Flu shot this Season (After Apr,): Yes: Location: , Date received: 08/10/22 e. [facility] will be providing your care, are you agreeable to starting these services? YES (yes or no) f. Do you have any upcoming appointments in the next few days, or restrictions to your schedule? NO g. Caregiver: Patient is able to manage care independently h. Confirmed Visited Location and preferred #: [phone] [place] [address] Please keep our your medications both over the counter and prescribed out for the home care to review, your hospital discharge instructions and write down any questions you might have. In order to maintain a safe environment for our caregivers, [facility] requires any animals or weapons present in the home be located in a secured location. Our clinicians will call you the night before or the morning of the appointment. Their # may come up restricted but they'll leave a VM for you. In case you have any questions or concerns in the meantime, our # is [phone], option [phone] Thank you for your time and have a great day. Sanaz Dean, PSS Allergies As of Date: 09/11/2022 Noted Allergy Reaction CODEINE 07/18/2021 2 - Rash MORPHINE 10/26/2020 4 - Hives Date Reviewed: 09/11/2022 Reviewed by: Gem Yen RN - Fully Assessed Reason for Visit: Home Care [4073] Cmt: Confirmation call Prescriptions as of 09/11/2022 - acetaminophen (TYLENOL) 500 mg tablet Take 2 tablets by mouth every 8 hours as needed for pain. - ascorbic acid, vitamin C, (VITAMIN C) 500 mg tablet Take 1 tablet by mouth twice daily with meals for 27 doses. - aspirin, enteric coated (ASPIRIN, ENTERIC COATED) 81 mg EC tablet Take 1 tablet by mouth twice daily for 28 days. - docusate sodium (COLACE) 100 mg capsule Take 1 capsule by mouth twice daily as needed for constipation. - traMADol (ULTRAM) 50 mg tablet Take 1-2 tablets by mouth every 6 hours as needed for pain for up to 7 days. - polyethylene glycol 3350 (MIRALAX) 17 gram/dose powder Take 17 g by mouth once daily as needed for constipation for up to 10 days. Dissolve dose in 4 - 8 ounces of liquid and take as directed. - metFORMIN (GLUCOPHAGE) 500 mg tablet Take 500 mg by mouth twice daily with meals. - albuterol HFA (PROVENTIL HFA, VENTOLIN HFA) 90 mcg/actuation inhaler Inhale 2 Puffs as instructed. - umeclidinium-vilanterol (ANORO ELLIPTA) 62.5-25 mcg/actuation inhaler Inhale 1 Puff as instructed as needed. - AMLODIPINE-BENAZEPRIL 10-20 mg per capsule Take 1 capsule by mouth once daily. - NEXIUM 40 mg capsule Take 40 mg by mouth once daily. - CRESTOR 10 mg tablet Take 10 mg by mouth once daily. Facility-Administered Medications as of 09/11/2022 - scopolamine - VERIFY patch - scopolamine - REMOVE PATCH - metFORMIN 500 mg tab(s) (GLUCOPHAGE) - rosuvastatin 10 mg tab(s) (CRESTOR) - umeclidinium 62.5 mcg - vilanterol 25 mcg inhaler (ANORO ELLIPTA) - pantoprazole DR 40 mg tab(s) (PROTONIX) - acetaminophen 1,000 mg tab(s) (TYLENOL) - ondansetron orally disintegrating 4 mg tab(s) (ZOFRAN ODT) - ondansetron (PF) 4 mg injection (ZOFRAN) - magnesium hydroxide 400 mg/5 mL 30 mL (MOM) - bisacodyl EC 10 mg tab(s) (DULCOLAX) - aluminum-magnesium hydroxide-simethicone 200-200-20 mg/5 mL 30 mL (MAALOX,MYLANTA,MAG-AL PLUS) - ascorbic acid (vitamin C) 500 mg tab(s) (VITAMIN C) - docusate sodium 100 mg cap(s) (COLACE) - senna 17.2 mg tab(s) (SENOKOT) - aspirin, enteric coated 81 mg tab(s) - lactated ringers iv infusion - HYDROmorphone 0.4 mg injection (DILAUDID) - keTORolac 15 mg injection (TORADOL) - traMADol 50-100 mg tab(s) (ULTRAM) - amLODIPine 10 mg tab(s) (NORVASC) - lisinopril 20 mg tab(s) (ZESTRIL, PRINIVIL) Problem List As Of Date 09/11/2022 Noted Resolved HTN (hypertension) [I10] 06/11/2013 Lateral meniscal tear [S83.289A] 07/12/2013 Medial meniscus tear [S83.249A] 07/12/2013 Knee pain [M25.569] 04/08/2014 Degenerative arthritis of knee [M17.9] 04/08/2014 GERD (gastroesophageal reflux disease) [K21.9] 07/29/2014 Knee pain, left [M25.562] 08/29/2014 Left leg weakness [R29.898] 08/29/2014 Stiffness of knee joint [M25.669] 08/29/2014 Gait abnormality [R26.9] 08/29/2014 Type 2 diabetes mellitus without complication, *05/25/2016 Pure hypercholesterolemi (more content not included)... Normal [facility] CONSULT PROGon 09-11-2022 CONSULT PROG HNO ID: [id number] Author: Parris Welsh MD Service: General Internal Medicine Author Type: Physician Type: Consult Progress Note Filed: 09/11/2022 3:44 PM Note Text: Internal Medicine SERVICE CONSULT PROGRESS NOTE SERVICE DATE: 09/11/2022 SERVICE TIME: Subjective INTERVAL HPI: mild knee pain. No new events. No n/v/d. No orthopnea, pnd,cpain, fever, chills. Consult notes reviewed. Current Facility-Administered Medications Medication Dose Route Frequency scopolamine - VERIFY patch OTHER q 8 H scopolamine - REMOVE PATCH OTHER ONCE metFORMIN 500 mg tab(s) (GLUCOPHAGE) 500 mg ORAL BID w MEALS rosuvastatin 10 mg tab(s) (CRESTOR) 10 mg ORAL DAILY umeclidinium 62.5 mcg - vilanterol 25 mcg inhaler (ANORO ELLIPTA) 1 Inhalation INHALATION PRN pantoprazole DR 40 mg tab(s) (PROTONIX) 40 mg ORAL DAILY acetaminophen 1,000 mg tab(s) (TYLENOL) 1,000 mg ORAL q 8 H ondansetron orally disintegrating 4 mg tab(s) (ZOFRAN ODT) 4 mg ORAL q 6 H PRN Or ondansetron (PF) 4 mg injection (ZOFRAN) 4 mg INTRAVENOUS q 6 H PRN magnesium hydroxide 400 mg/5 mL 30 mL (MOM) 30 mL ORAL DAILY PRN [START ON 09/12/2022] bisacodyl EC 10 mg tab(s) (DULCOLAX) 10 mg ORAL DAILY aluminum-magnesium hydroxide-simethicone 200-200-20 mg/5 mL 30 mL (MAALOX,MYLANTA,MAG-AL PLUS) 30 mL ORAL q 2 H PRN ascorbic acid (vitamin C) 500 mg tab(s) (VITAMIN C) 500 mg ORAL BID w MEALS docusate sodium 100 mg cap(s) (COLACE) 100 mg ORAL BID senna 17.2 mg tab(s) (SENOKOT) 17.2 mg ORAL AT BEDTIME aspirin, enteric coated 81 mg tab(s) 81 mg ORAL BID lactated ringers iv infusion 100 mL/hr INTRAVENOUS CONTINUOUS HYDROmorphone 0.4 mg injection (DILAUDID) 0.4 mg INTRAVENOUS q 3 H PRN keTORolac 15 mg injection (TORADOL) 15 mg INTRAVENOUS q 6 H PRN traMADol 50-100 mg tab(s) (ULTRAM) 50-100 mg ORAL q 6 H PRN amLODIPine 10 mg tab(s) (NORVASC) 10 mg ORAL DAILY lisinopril 20 mg tab(s) (ZESTRIL, PRINIVIL) 20 mg ORAL DAILY Objective PHYSICAL EXAM: Physical Exam Performed: GENERAL: Alert, no distress, cooperative LUNGS: Lungs clear to auscultation, Good diaphragmatic excursion CARDIAC: Normal S1 and S2; no rubs, murmurs, or gallops BP 137/75 Pulse 85 Temp (Src) 99 (Oral) Resp 16 Ht 5' 10 (1.78m) Wt 240 lb 4.8 oz (109.0kg) SpO2 95% BMI 34.48 kg/(m2). O2 Therapy: Room Air DATA: Diagnostic tests reviewed for today's visit: Most recent labs and imaging results. Impression/Recommendati ons Active Problems: HTN T2DM HLP S/p TKR. PLAN: PT/OT Pain control Home meds DVT prophylaxis. SIGNATURE: Parris Welsh MD PATIENT NAME: Roberto Osborn SR DATE: September 11, 2022 TIME: 8:57 AM PAGER: Normal [facility] THERAPY NTon 09-11-2022 THERAPY NT HNO ID: [id number] Author: Vamshi Castellon OT/L Service: ? Author Type: Occupational Therapist Type: Therapy (PT/OT/Speech/Resp) Filed: 09/11/2022 10:00 AM Note Text: Occupational Therapy Evaluation SERVICE DATE: 09/11/2022 SERVICE TIME: 923 to 950 ROOM: [place] [address] Recommended Discharge Disposition: Home Anticipated Discharge Needs: Physical Assist at Home, Supervision at Home Physical Assist at Home for: Cleaning, Laundry, Meals, Self Care, Shopping, Transportation Supervision at Home due to: (initially for optimal safety) Recommended Discharge Equipment: No equipment needs anticipated OT 6 Clicks Score: 20 Precautions/Activity Restrictions: Fall Risk, Lines/Tubes/Drains, Total Knee Replacement, Weight Bearing Restrictions Extremity With Weight Bearing Restricted: Right Lower Extremity Right Lower Extremity Weight Bearing Status: WBAT Current Hospital Course: s/p R TKA 09/10/22 Reason for Hospital Admission: scheduled R TKA Relevant Past Medical History: L TKR, hypercholesteremia, GERD, osteoarthritis, DM, h/o cervical fusion, refer to epic Response to Therapy Interventions: Good participation in activities, On-track to achieve discharge goals, Pain Assessment Comments: Patient demonstrated good ability to follow total knee precautions throughout functional mobility/transfers and ADLs this session; OT provided/educated patient on total knee handout, patient reports no questions/concerns for d/c home, reports he is familiar with this info/education from previous TKR; Anticipate safe d/c with available assist in the home setting Continue skilled needs due to: Functional impairment Occupational Therapy Problem List: Pain, Impaired Self Care, Decreased Activity Tolerance, Decreased Strength, Functional Mobility Impairment, Balance Impaired Cognition/Communication Deficits Orientation Deficits: (AOx4) Responsiveness: Alert, Awake Follows Commands: 3-step Commands Treatment Interventions: Education, Self Care / Home Management, Strengthening, Joint Mobility, Functional Mobility Training, Balance Training Plan for next visit: Chair/commode transfer training, Dressing training, Grooming training, Sit to stand transfers, Standing balance, Standing tolerance, Toileting instruction Home Environment Patient Lives With: Spouse Assistance Available: Part-Time Entry To Home: No Stairs Number Of Stairs To Bed/Bath: flight of stairs to bedroom and full bath; 1/2 bath on first floor Stairs to Bed/Bath with: Unilateral Rail Tub/Shower Type: tub/shower with shower chair Laundry: 2nd floor laundry - spouse to complete Equipment Owned: Crutch(es), Cane, Shower Chair, Other: See Comment (adjustable bed) Prior Functional Level: Within Functional Limits Prior Functional Level Comments: Per patient, Indep with ADLs/IADLs, ambulated without AD, +drives, works full-time, sleeps in adjustable bed Baseline Cognition: Oriented to self, Oriented to time, Oriented to place 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 and/or 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 Highest Level of Education: (Did not report) Occupational Factors Life Roles: Spouse/Significant Other, Family Member, Parent, Employed Identified Strengths: Good Support System, Involvement in Hobbies/Leisure Activities, Positive Coping Strategies, Self-Regulation, Effective Communication Skills, Strong Awareness of Deficit(s), Open to Adaptive Equipment/Strategies, Motivation, Health Literacy, Safety Awareness, Memory/Attention, Follows Multi-Step Commands, Access to Healthcare, Problem-Solving Skills Identified Barriers: Medical Acuity/Chronic Condition Patient Report: RN cleared to work with, patient pleasant and agreeable to this session CURRENT FUNCTIONAL STATUS: Most recent performance Current Activities of Daily Living Assist Level Additional Information Feeding Independent Grooming Contact Guard Assistance, Additional Information if standing at sink Bathing Upper Body Stand By Assistance Bathing Lower Body Contact Guard Assistance Dressing Upper Body Independent Dressing Lower Body Contact Guard Assistance Toileting Contact Guard Assistance Instrumental Activities of Daily Living Assist Level Additional Information Meal/Beverage Prep Cleaning Laundry Medication Management with Strategies Functional Mobility Assist Level Additional Information Rolling Supine to Sit Stand By Assistance Sit to Supine Stand By Assistance Scooting Stand By Assistance Sit to Stand Contact Guard Assistance Stand to Sit Contact Guard Assistance Bed to Chair Toilet/Commode Shower Functional Mobility Blank basurto indicate activity not attempted Balance: Static Sitting, Dynamic Sitting, Static Standing Static Sitting Balance: Good Patient able to maintain balance without handhold support, limited postural sway Dynamic Sitting Balance: Good Patient accepts moderate challenge, able to maintain balance while picking up (more content not included)... [facility] THERAPY NT HNO ID: [id number] Author: Lynette Persaud PT Service: Physical Therapy Author Type: Physical Therapist Type: Therapy (PT/OT/Speech/Resp) Filed: 09/11/2022 10:14 AM Note Text: Physical Therapy Treatment SERVICE DATE: 09/11/2022 SERVICE TIME: 834 to 924 ROOM: [id number] Recommended Discharge Disposition: Home PT Recommended Discharge Disposition Comments: to increase ROM/strength and progress safe functional mobility in his home Anticipated Discharge Needs: Physical Assist at Home, Supervision at Home Physical Assist at Home for: Cleaning, Laundry, Meals, Self Care, Shopping, Transportation Supervision at Home due to: (initially for optimal safety) Recommended Discharge Equipment: To Be Determined PT 6 Clicks Score: 20 Precautions/Activity Restrictions: Fall Risk, Lines/Tubes/Drains, Total Knee Replacement, Weight Bearing Restrictions Extremity With Weight Bearing Restricted: Right Lower Extremity Right Lower Extremity Weight Bearing Status: WBAT Current Hospital Course: s/p R TKA 09/10/22 Reason for Hospital Admission: scheduled R TKA Relevant Past Medical History: L TKR, hypercholesteremia, GERD, osteoarthritis, DM, h/o cervical fusion, refer to epic Response to Therapy Interventions: Good participation in activities, Pain, On-track to achieve discharge goals Assessment Comments: patient demonstrates progression CGA to SBA. patient able to advance to B crutches. Patient needed initially reinforcement of cues however demonstrates good recall. Patient with min increased pain however overall good tolerance. patient receptive to recommendations. Physical Therapy Problem List: Pain, Safety Deficits, Impaired Self Care, Decreased Activity Tolerance, Decreased Range Of Motion, Decreased Strength, Functional Mobility Impairment, Balance Impaired Treatment Interventions: Education, Self Care / Home Management, Energy Conservation Training, Joint Mobility, Strengthening, Functional Mobility Training, Balance Training, Neuromuscular Re-education Home Environment Patient Lives With: Spouse Assistance Available: Part-Time Entry To Home: No Stairs Number Of Stairs To Bed/Bath: flight of stairs to bedroom and full bath; 1/2 bath on first floor Stairs to Bed/Bath with: Unilateral Rail Tub/Shower Type: tub/shower with shower chair Laundry: 2nd floor laundry - spouse to complete Equipment Owned: Crutch(es), Cane, Shower Chair, Other: See Comment (adjustable bed) Prior Functional Level: Within Functional Limits Prior Functional Level Comments: Per patient, Indep with ADLs/IADLs, ambulated without AD, +drives, works full-time, sleeps in adjustable bed Baseline Cognition: Oriented to self, Oriented to time, Oriented to place Patient Report: patient agreeable to PT. patient notes he didn't take pain medication all night however requested medication for pain a few hours ago. Denies lightheadedness/dizzine ss/nausea. CURRENT FUNCTIONAL STATUS: Most recent performance Current Functional Mobility Assist Level Additional Information Rolling Supine to Sit Supervision, Additional Information HOB 45 deg, min rail use, slow to EOB. uses R UE to manage right LE. Sit to Supine Supervision, Additional Information HOB 20 deg, min rail use Scooting Stand By Assistance, Additional Information in sitting, fwd/retro at EOB and in w/c Sit to Stand Contact Guard Assistance, Additional Information CGA with progression to SBA. reinforced WBAT R LE and hand placement. initial transfer to EOB more labored however bed mattressed appears flat. improved performance with repeat performance/practice. from EOB x 2 trials and from w/c x 2 trials. 1st trial from EOB with FWW and remaining attempts with B crutches. cues initially for management of B crutches with transfers Stand to Sit Contact Guard Assistance, Additional Information CGA with progression to SBA. to w/c x 2 and to EOB x 2;with B crutches. cues for safe approach initially with device, positioning at HOB, hand placement, right LE mgmt and controlled descent. Good follow through with remaining transfers demonstrating improved recall. cues initially for management of B crutches with transfers Bed to Chair Toilet/Commode Gait Contact Guard Assistance, Additional Information Gait Device: Wheeled Walker, Crutch(es) Gait Distance (feet): 40 x 1 with FWW and 10 x 2, 40 x 1 with B crutches reinforced step to pattern for pain and right LE weakness post op. education for adjusting crutch height appropriately and rationale. cues for negotiation/sequencing, turning and distancing. cues for step to pattern and reciprocal gait and rationale of each. reinforced step to pattern for pain due to increase ability to unload right LE with stance. Stairs Curb Step Car Transfer Blank basutro indicate activity not attempted Gait Deviations Right Lower Extremity: Heel strike during initial stance decreased, Push off during terminal stanc (more content not included)... Normal [facility] ALLIED HEALTHon 09-10-2022 ALLIED HEALTH HNO ID: [id number] Author: Chaplain Earle Service: Spiritual Care Author Type: Languages And Literature Instructor Type: Allied Health Filed: 09/10/2022 8:18 PM Note Text: SPIRITUAL CARE PROGRESS NOTE SERVICE DATE: 09/10/2022 SERVICE TIME: 6:00-6:01pm This technology auditor stopped by the patient's room to provide spiritual care, but the patient did not desire it at the time. To contact the Spiritual Care Department: Please call [phone]. SIGNATURE: Chaplain Earle PATIENT NAME: Roberto Osborn SR DATE: September 10, 2022 TIME: 8:17 PM PAGER/CONTACT #: [phone] [facility] ALLIED HEALTH HNO ID: [id number] Author: GERMAINE Sparrow Service: Radiology Author Type: Technologist Type: Allied Health Filed: 09/10/2022 10:40 AM Note Text: Radiology Service Progress Note PATIENT NAME: Roberto Osborn SR DATE OF SERVICE: September 10, 2022 TIME: 10:39 AM PATIENT IDENTITY VERIFICATION COMPLETED USING TWO (2) IDENTIFIERS: Name and Date of confirmed by patient verbally and Name and Date of confirmed by identification band. FALL SCREENING: Has the patient had 2 falls in the last year or 1 fall with injury or currently using an Ambulatory Assistive Device (Walker, Cane, Wheelchair, Crutches, etc.)? Inpatient: Screened on floor PATIENT GENDER DATA: Male PATIENT RELEVANT IMPLANT DATA REVIEWED: Not Applicable RADIOLOGY DEPARTMENT: General X-ray: Exam(s) Completed: Lower Extremity X-Ray(s): Knee, AP / LAT Right PERIPHERAL IV DATA: Not applicable SIGNED BY: GERMAINE Sparrow September 10, 2022 10:39 AM [facility] ANES POSTPROC EVALon 023 ANES POSTPROC EVAL HNO ID: [id number] Author: Adryan Payton MD Service: Anesthesiology Author Type: Anesthesiologist Type: Anesthesia Postprocedure Evaluation Filed: 09/10/2022 12:48 PM Note Text: POST ANESTHESIA EVALUATION NOTE : 1960 Procedure Summary Date: 09/10/22 Room / Location: [facility] OR / [place] Anesthesia Start: 740 Anesthesia Stop: 1013 Procedure: ROBOTIC ASSISTED TOTAL KNEE ARTHROPLASTY (Right: Knee) Diagnosis: Primary osteoarthritis of right knee (Primary osteoarthritis of right knee [M17.11]) Surgeons: Chika Carpenter MD Responsible Provider: Adryan Payton MD Anesthesia Type: spinal ASA Status: 3 Anesthesia Type: spinal Last Vitals Vitals Value Taken Time BP 134/88 09/10/22 1200 Temp 36.5 ?C (97.7 ?F) 09/10/22 1200 HR SpO2 78 09/10/22 1014 Resp 16 09/10/22 1200 SpO2 98 % 09/10/22 1200 Post Anesthesia Patient Status Patient Evaluation: PACU. PACU/ICU Patient Condition: stable. Anticipated Disposition: phase 2 then home. Neurological Status: aware and responsive. Pulmonary Status: breathing comfortably on room air Airway Control: returned to baseline unsupported. Cardiovascular Status: stable. Pain Management: clinically adequate - multimodal analgesia pain management approach Postoperative Hydration: acceptable. Intraoperative Events: no significant anesthesia events Recommendation: continue current plan of care. Anesthesia Observations No Documentation SIGNATURE: Adryan Payton MD PATIENT NAME: Roberto Osborn SR DATE: September 10, 2022 TIME: 12:48 PM CSN: [id number] [facility] ANES PRE-OPon 09-10-2022 ANES PRE-OP HNO ID: [id number] Author: Adryan Payton MD Service: Anesthesiology Author Type: Anesthesiologist Type: Anesthesia Preprocedure Evaluation Filed: 09/10/2022 7:06 AM Note Text: ANESTHESIOLOGY DAY OF SURGERY NOTE : 1960 Procedure Information Date/Time: 09/10/22 0745 Procedure: ROBOTIC ASSISTED TOTAL KNEE ARTHROPLASTY (Right: Knee) Location: [place] / [place] Surgeons: Chika Carpenter MD Estimated body mass index is 33 kg/m? as calculated from the following: Height as of 08/16/22: 177.8 cm (5' 10). Weight as of 08/16/22: 104.3 kg (230 lb). Most recent hematocrit and potassium results: Hematocrit 39.9 08/16/2022 Potassium 4.3 08/16/2022 Relevant Problems CARDIO (+) Essential hypertension, benign (+) HTN (hypertension) ENDO (+) Type 2 diabetes mellitus without complication, without long-term current use of insulin (HCC) GI (+) GERD (gastroesophageal reflux disease) I - PHYSICAL EVALUATION AIRWAY Patient intubated: No. Mallampati: II. TM distance: >3 FB. Neck ROM: full ROM without neurological symptoms. Mouth opening: adequate. Short neck: no. II - ANESTHESIA PLAN ASA Score: 3 Anesthetic Plan: spinal NPO Status: adequate Beta Meng Monitoring Plan Monitoring plan: standard ASA. Post Procedure Analgesic Plan Postoperative analgesic plan: multimodal analgesia. Patient / Surrogate agrees to blood products: blood products not planned DNR status not reviewed with patient and/or family prior to surgery. Significant changes in the patient condition since the History and Physical, not otherwise documented in primary service progress note: no. Vitals Value Taken Time BP 159/90 09/10/22625 Pulse 75 09/10/22625 Resp 16 09/10/22625 Temp 36.8 ?C (98.2 ?F) 09/10/22625 SpO2 96 % 09/10/22625 Facility-Administered Medications as of 09/10/2022 Medication Dose Route Frequency - [COMPLETED] acetaminophen 650 mg tab(s) (TYLENOL) 650 mg ORAL Pre-Op Once - [COMPLETED] celecoxib 200 mg cap(s) (CeleBREX) 200 mg ORAL Pre-Op Once - [COMPLETED] gabapentin 100 mg cap(s) (NEURONTIN) 100 mg ORAL Pre-Op Once - [COMPLETED] oxyCODONE ER 10 mg tab(s) (OxyCONTIN) 10 mg ORAL Pre-Op Once - scopolamine 1 mg over 3 days 1 Patch (TRANSDERM-SCOP) 1 Patch TRANSDERMAL Pre-Op Once - [COMPLETED] promethazine 12.5 mg tab(s) (PHENERGAN) 12.5 mg ORAL Pre-Op Once - lidocaine (PF) 10 mg/mL (1 %) 1-2 mg injection (XYLOCAINE) 0.1-0.2 mL INTRADERMAL PRN - lactated ringers iv infusion 5-30 mL/hr INTRAVENOUS CONTINUOUS - NaCl 0.9% iv flush bag 20 mL INTRAVENOUS PRN - ceFAZolin iv piggyback 2 g in D5W (iso-osmotic) 100 mL (ANCEF) 2 g INTRAVENOUS Pre-Op Once - tranexamic acid (CYKLOKAPRON) in NaCl 0.7% 1,000 mg 100 mL 1,000 mg INTRAVENOUS Pre-Op Once - tranexamic acid (CYKLOKAPRON) in NaCl 0.7% 1,000 mg 100 mL 1,000 mg INTRAVENOUS ONCE - ropivacaine 2.46 mg/mL-EPINEPHrine 0.005 mg/mL-cloNIDine 0.0008 mg/mL-ketorolac 0.3 mg/mL 50 mL injection (R.E.C.K.) 50 mL periarticular ONCE Outpatient Medications as of 09/10/2022 Medication Sig - metFORMIN (GLUCOPHAGE) 500 mg tablet Take 500 mg by mouth twice daily with meals. - AMLODIPINE-BENAZEPRIL 10-20 mg per capsule Take 1 capsule by mouth once daily. - NEXIUM 40 mg capsule Take 40 mg by mouth once daily. - CRESTOR 10 mg tablet Take 10 mg by mouth once daily. - albuterol HFA (PROVENTIL HFA, VENTOLIN HFA) 90 mcg/actuation inhaler Inhale 2 Puffs as instructed. (Patient not taking: Reported on 08/16/2022) - umeclidinium-vilanterol (ANORO ELLIPTA) 62.5-25 mcg/actuation inhaler Inhale 1 Puff as instructed as needed. I have interviewed and examined the patient. I have reviewed the medical record and/or the pre-anesthesia evaluation, pertinent labs, and test results. This contains updated information obtained within 48 hours of Surgery/Procedure. SIGNATURE: Adryan Payton MD PATIENT NAME: Roberto Osborn SR DATE: September 10, 2022 TIME: 7:04 AM CSN: [id number] [facility] BRIEF OP NOTon 09-10-2022 BRIEF OP NOT HNO ID: [id number] Author: Chika Carpenter MD Service: Orthopaedic Surgery Author Type: Physician Type: Brief Op Note Filed: 09/11/2022 7:52 AM Note Text: TOTAL KNEE ARTHROPLASTY BRIEF OPERATIVE / PROCEDURE NOTE LOG ID: [id number] Surgery/Procedure Date: 09/10/2022 Incision/Procedure Start Time: 8:19 AM Incision Close/Procedure End Time: 10:05 AM Surgeon(s)/Proceduralis t(s) and Sheet Metal Fabricator(s): Surgeon(s) and Role: * Chika Carpenter MD - Primary Nurse Practitioner: Indio De Oliveira APRN.SUGAR CANE PLANTER MACHINE OPERATOR Physician Sheet Metal Fabricator: Anahi Seay PA-C; Regla Higgins PA-C Procedure(s): Procedure(s) (LRB): ROBOTIC ASSISTED TOTAL KNEE ARTHROPLASTY (Right) Anesthesia: Spinal Peripheral Block Type: Saphenous/Adductor and MARIA T Approach: Median parapatellar Findings: Full-thickness wear of the posterior medial posterior lateral femoral condyle articular surface and medial tibial articular surface Estimated Blood Loss: 50 mls Specimens: Distal femoral proximal tibial and patellar cuttings Complications: None Closure Technique: Primary Total Joint Arthroplasty (TJA) Surgical Risk Procedure: Not on file Date assessed: Not on file No flowsheet data found. Implant: Implant Name Type Inv. Item Serial No. [employer]al Captain Lot No. [id number] No. Used Action COMPONENT TRITANIUM 35MM METAL 10MM PATELLAR ASYMMETRIC KNEE - [id number] Joint - Knee COMPONENT TRITANIUM 35MM METAL 10MM PATELLAR ASYMMETRIC KNEE [facility] [employer] [id number] Right 1 Implanted INSERT TRIATHLON 6 9MM TIBIAL BEARING CONDYLAR STABILIZE STERILE KNEE - [id number] Joint - Knee INSERT TRIATHLON 6 9MM TIBIAL BEARING CONDYLAR STABILIZE STERILE KNEE [facility] [employer] [employer] [id number] Right 1 Implanted BASEPLATE TRIATHLON 6 TRITANIUM [id number] TIBIAL 4 CRUCIFORM PEG KEEL KNEE - [id number] Joint - Knee BASEPLATE TRIATHLON 6 TRITANIUM [id number] TIBIAL 4 CRUCIFORM PEG KEEL KNEE [facility] [employer] [id number] Right 1 Implanted COMPONENT TRIATHLON 5 PA FEMORAL CRUCIATE RETAIN BEAD KNEE RIGHT - [id number] Joint - Knee COMPONENT TRIATHLON 5 PA FEMORAL CRUCIATE RETAIN BEAD KNEE RIGHT [facility] ORTHOPEDICS [id number] Right 1 Implanted Bearing Surface: Fixed Fixation: Cementless SSI Risk Factors: DM Constraint: Cruciate Retaining Other: None Pre-Op/Pre-Procedure Diagnosis: Primary osteoarthritis of right knee [M17.11] Post-Op/Post-Procedure Diagnosis: Primary osteoarthritis of right knee [M17.11] Weight Bearing Status: Weight Bearing As Tolerated SIGNATURE: Chika Carpenter MD PATIENT NAME: Roberto Osborn DATE: September 10, 2022 TIME: 10:01 AM [facility] CONSULTon 09-10-2022 CONSULT HNO ID: [id number] Author: Parris Welsh MD Service: General Internal Medicine Author Type: Physician Type: Consults Filed: 09/10/2022 4:22 PM Note Text: Internal Medicine INITIAL CONSULT NOTE SERVICE DATE: 09/10/2022 REASON FOR CONSULT: Medical Management. REQUESTING PHYSICIAN: Dr. Carpenter. PRIMARY CARE PHYSICIAN: Timothy Correa MD Subjective Mr. Osborn is a 62 year old male who is s/p Rt TKR under spinal for advanced OA. Pt is post op, doing well. Pt denies any acute cardiopulmonary symptoms. FUNCTIONAL STATUS: Independent PAST MEDICAL HISTORY Diagnosis Date Diabetes (HCC) GERD (gastroesophageal reflux disease) HTN (hypertension) Hypercholesteremia Osteoarthritis PAST SURGICAL HISTORY Procedure Laterality Date ARTHROSCOPY KNEE DIAGNOSTIC W/WO SYNOVIAL BX SPX 08/2008 Arthroscopy, knee right ARTHROSCOPY KNEE DIAGNOSTIC W/WO SYNOVIAL BX SPX 06/29/2013 Arthroscopy, knee left ARTHRP KNE CONDYLEANDPLATU MEDIALANDLAT COMPARTMENTS 08/09/2014 Knee replacement, total left BACK SURGERY HX lumbar december 2019 PAST SURGICAL HISTORY OF ~1996 cervical fusion PAST SURGICAL HISTORY OF tonsils age 3 REVISE MEDIAN N/CARPAL TUNNEL SURG Left 10/26/2020 FAMILY HISTORY Problem Relation Age of Onset Heart Father age 47- asphyxiated other (blood clot) Sister dvt No Known Problems Mother No Known Problems Brother Social History Tobacco Use Smoking status: Former Packs/day: 0.10 Years: 30.00 Pack years: 3.00 Types: Cigarettes Quit date: 07/15/2013 Years since quittin.1 Smokeless tobacco: Never Vaping Use Vaping Use: Never used Substance Use Topics Alcohol use: Not Currently Comment: not weekly Drug use: No mupirocin (BACTROBAN) 2 % ointment, Apply 0.5 inch with cotton swab (Q-tip) to each nostril in the morning and evening for 5 days prior to and including day of surgery., Disp: 22 g, Rfl: 0, 09/10/2022 at 0500 metFORMIN (GLUCOPHAGE) 500 mg tablet, Take 500 mg by mouth twice daily with meals., Disp: , Rfl: , 09/09/2022 at 1700 AMLODIPINE-BENAZEPRIL 10-20 mg per capsule, Take 1 capsule by mouth once daily., Disp: , Rfl: , 09/09/2022 at 0900 NEXIUM 40 mg capsule, Take 40 mg by mouth once daily., Disp: , Rfl: , 09/10/2022 at 0500 CRESTOR 10 mg tablet, Take 10 mg by mouth once daily., Disp: , Rfl: , 09/10/2022 at 0500 albuterol HFA (PROVENTIL HFA, VENTOLIN HFA) 90 mcg/actuation inhaler, Inhale 2 Puffs as instructed. (Patient not taking: Reported on 08/16/2022), Disp: , Rfl: umeclidinium-vilanterol (ANORO ELLIPTA) 62.5-25 mcg/actuation inhaler, Inhale 1 Puff as instructed as needed., Disp: , Rfl: , Unknown Current Facility-Administered Medications Medication Dose Route Frequency scopolamine - VERIFY patch OTHER q 8 H [START ON 09/11/2022] scopolamine - REMOVE PATCH OTHER ONCE metFORMIN 500 mg tab(s) (GLUCOPHAGE) 500 mg ORAL BID w MEALS [START ON 09/11/2022] rosuvastatin 10 mg tab(s) (CRESTOR) 10 mg ORAL DAILY umeclidinium 62.5 mcg - vilanterol 25 mcg inhaler (ANORO ELLIPTA) [address] Inhalation INHALATION PRN pantoprazole DR 40 mg tab(s) (PROTONIX) 40 mg ORAL DAILY acetaminophen 1,000 mg tab(s) (TYLENOL) 1,000 mg ORAL q 8 H ondansetron orally disintegrating 4 mg tab(s) (ZOFRAN ODT) 4 mg ORAL q 6 H PRN Or ondansetron (PF) 4 mg injection (ZOFRAN) 4 mg INTRAVENOUS q 6 H PRN [START ON 09/11/2022] magnesium hydroxide 400 mg/5 mL 30 mL (MOM) 30 mL ORAL DAILY PRN [START ON 09/12/2022] bisacodyl EC 10 mg tab(s) (DULCOLAX) 10 mg ORAL DAILY aluminum-magnesium hydroxide-simethicone 200-200-20 mg/5 mL 30 mL (MAALOX,MYLANTA,MAG-AL PLUS) 30 mL ORAL q 2 H PRN [START ON 09/11/2022] ascorbic acid (vitamin C) 500 mg tab(s) (VITAMIN C) 500 mg ORAL BID w MEALS [START ON 09/11/2022] docusate sodium 100 mg cap(s) (COLACE) 100 mg ORAL BID senna 17.2 mg tab(s) (SENOKOT) 17.2 mg ORAL AT BEDTIME [START ON 09/11/2022] aspirin, enteric coated 81 mg tab(s) 81 mg ORAL BID lactated ringers iv infusion 100 mL/hr INTRAVENOUS CONTINUOUS ceFAZolin iv piggyback 2 g in D5W (iso-osmotic) 100 mL (ANCEF) 2 g INTRAVENOUS q 8 HR HYDROmorphone 0.4 mg injection (DILAUDID) 0.4 mg INTRAVENOUS q 3 H PRN keTORolac 15 mg injection (TORADOL) 15 mg INTRAVENOUS q 6 H PRN traMADol 50-100 mg tab(s) (ULTRAM) 50-100 mg ORAL q 6 H PRN amLODIPine 10 mg tab(s) (NORVASC) 10 mg ORAL DAILY lisinopril 20 mg tab(s) (ZESTRIL, PRINIVIL) 20 mg ORAL DAILY Allergies As of Date: 07/24/2022 Allergen Noted Reaction CODEINE 07/18/2021 Rash MORPHINE 10/26/2020 Hives Fully Assessed 07/19/2022 COMPLETE REVIEW OF SYSTEMS: GENERAL: No weight loss, malaise or fevers HEENT: Negative for frequent or significant headaches, No changes in hearing or vision, no nose bleeds or other nasal problems NECK: Negative for lumps, goiter, pain and significant neck swelling RESPIRATORY: Negative for cough, hemoptysis, wheezing, COPD, dyspnea or shortness of breath CARDIOVASCULAR: Negative for chest pain, leg swel (more content not included)... Normal [facility] CT KNEE WO IVCON RTon 2022 CT KNEE WO IVCON RT * * *Final Report* * * DATE OF EXAM: Sep 10 2022 6:57AM [facility] 0084 - CT KNEE WO IVCON RT / PROCEDURE REASON: M17.11-Primary osteoarthritis of right knee * * * * Physician Interpretation * * * * EXAMINATION: CT KNEE WO IVCON RT CLINICAL HISTORY: 62 years old Male with Primary osteoarthritis of right knee. WILMER Robotic total knee replacement [facility] CT TECHNIQUE: CT RIGHT knee without contrast [facility] protocol, knee 1 mm axial slices, hip and ankle 3 mm axial slices obtained for the purposes of presurgical planning CT Radiation dose: Integrated Dose-length product (DLP) for this visit = 888.27 mGy*cm. CT Dose Reduction Employed: Automated exposure control(AEC) and iterative recon COMPARISON: Right knee radiographs 02/22/2022 RESULT: Limited CT images for the purposes of presurgical planning. Tricompartmental osteoarthritis RIGHT knee, severe in the medial compartment. Small-moderate joint effusion. Degenerative changes inferior aspect bilateral sacroiliac joints. Enthesopathic/hypertrop hic changes bilateral ischial tuberosities and adjacent to the RIGHT lesser trochanter. Fat-containing bilateral inguinal hernias. Hypertrophic changes along the distal tibiofibular syndesmosis perhaps related to remote injury. Posterior and plantar calcaneal spurs. IMPRESSION: Limited CT images for the purposes of presurgical planning. Digital Computer Systems Analyst: ENOCH Transcribe Date/Time: Sep 11 2022 6:28P Dictated by : GERI FABIAN DO This examination was interpreted and the report reviewed and electronically signed by: GERI FABIAN DO on Sep 11 2022 6:35PM EST [id number] Normal [facility] Hematocrit Auto (Bld) [Volum e fraction]on 09-10-2022 Hematocrit (Bld) [Volume fraction] 36.0 % Low 39.0-51.0 [facility] Comment on above: Order Comment: Specelena grant Type: BLOOD SPECIMENOrdering Facility: [facility] Address: [address] [place], [place] [id number] Performed By: #### 4 544-3, 718-7 ####[facility] [id number] [place] [id number] [facility] Hgb Bld-mCncon 09-10-2022 Hemoglobin (Bld) [Mass/Vol] 12.1 g/dL Low 13.0-17.0 [facility] Comment on above: Order Comment: Specelena grant Type: BLOOD SPECIMENOrdering Facility: [facility] Address: [address] [place] [address] Performed By: #### 4 544-3, 718-7 ####[facility]ORY[facility] [id number] [place] [id number] [place] NURSING PROGon 09-10-2022 NURSING PROG HNO ID: [id number] Author: Lorie Bolden RN Service: Nursing Author Type: Registered Nurse Type: Nursing Progress Note Filed: 09/10/2022 7:43 AM Note Text: Dr. Payton at bedside for Ultrasound guided Right adductor nerve block. RN at bedside, pt monitored throughout, BP 150/93 Pulse 76 Temp 36.8 ?C (98.2 ?F) (Temporal) Resp 16 SpO2 98% . Pt medicated with 2mg versed IV prior to procedure. Pt tolerated procedure without difficulty. Family called to bedside at completion of procedure. Report to Leonel Cary [facility] OPERATIVE NOon 09-10-2022 OPERATIVE NO HNO ID: [id number] Author: Chika Carpenter MD Service: Orthopaedic Surgery Author Type: Physician Type: Operative Report Filed: 09/11/2022 7:52 AM Note Text: [facility] OPERATIVE REPORT PATIENT NAME: Roberto Osborn SR CSN: [id number] LOG ID: [id number] Surgery Date: 09/10/2022 Surgeon(s) and Sheet Metal Fabricator(s): Surgeon(s) and Role: * Chika Carpenter MD - Primary- surgeon * Regla GARCIA -Manager Registration No qualified orthopedic resident available. The PA was utilized for soft tissue retraction and to hold the limb in proper alignment to allow me to correctly implant the final arthroplasty components. BMI: Estimated body mass index is 34.48 kg/m? as calculated from the following: Height as of this encounter: 177.8 cm (5' 10). Weight as of this encounter: 109 kg (240 lb 4.8 oz). Procedure(s): Procedure(s) (LRB): ROBOTIC ASSISTED TOTAL KNEE ARTHROPLASTY (Right) Anesthesia: Spinal Incision Start: 8:19 AM Incision Stop: 10:05 AM Attestation: I was present for all of the critical portions of the operation and performed all critical portions. The resident/fellow/PA assisted during exposure, implantation of the device, and deep closure. The PA /GROUNDMAN performed the closure of the subcutaneous tissue and skin. I was scrubbed from skin incision through the closure of the extensor mechanism and was immediately available for the duration of the entire case. Preop Diagnosis: Pre-Op Diagnosis Codes: * Primary osteoarthritis of right knee [M17.11] Postop Diagnosis: Same as Pre-Op Diagnosis Codes: * Primary osteoarthritis of right knee [M17.11] Implants: Implant Name Type Inv. Item Serial No. Correctional Captain Lot No. LRB No. Used Action COMPONENT TRITANIUM 35MM METAL 10MM PATELLAR ASYMMETRIC KNEE - [id number] Joint - Knee COMPONENT TRITANIUM 35MM METAL 10MM PATELLAR ASYMMETRIC KNEE [facility] [id number] Right 1 Implanted INSERT TRIATHLON 6 9MM TIBIAL BEARING CONDYLAR STABILIZE STERILE KNEE - [id number] Joint - Knee INSERT TRIATHLON 6 9MM TIBIAL BEARING CONDYLAR STABILIZE STERILE KNEE [facility] [id number] Right 1 Implanted BASEPLATE TRIATHLON 6 TRITANIUM [id number] TIBIAL 4 CRUCIFORM PEG KEEL KNEE - [id number] Joint - Knee BASEPLATE TRIATHLON 6 TRITANIUM [id number] TIBIAL 4 CRUCIFORM PEG KEEL KNEE [facility] [id number] Right 1 Implanted COMPONENT TRIATHLON 5 PA FEMORAL CRUCIATE RETAIN BEAD KNEE RIGHT - [id number] Joint - Knee COMPONENT TRIATHLON 5 PA FEMORAL CRUCIATE RETAIN BEAD KNEE RIGHT [facility] [id number] Right 1 Implanted OPERATIVE INDICATIONS: The patient has a long history of progressive right knee pain, arthritis, and degeneration. Non-operative treatment has been attempted but has not improved or controlled the symptoms and pain that occurs during normal daily activities. Knee motion has also become limited and is restricting the patient. Total knee arthroplasty was recommended. The risks, benefits and potential complications of the arthroplasty surgery were discussed with the patient in detail. Specific details of the surgical procedure, hospitalization, recovery, rehabilitation, and long-term precautions were also presented. Pre-operative teaching was provided. Implant/prosthesis selection was outlined, and the many options available were explained; the final choice will be made at the time of the procedure to match the anatomy and condition of the bone, ligaments, tendons, and muscles. The patient was evaluated medically for pre-operative optimization, and risk assessment. Jessica-operative blood management and the potential for blood transfusion were discussed with risks and options clearly outlined. Understanding of all topics was conveyed to me by the patient pre-operatively, and patient consent was given to proceed with the robotically assisted right total knee replacement. OPERATIVE PROCEDURE: The patient was identified and brought into the Operating Room by the anesthesia and nursing teams. Anesthesia was successfully performed. The patient was then positioned supine on the operating room table, and all bony prominences were padded. Intravenous antibiotic prophylaxis dosing was confirmed. A tourniquet was applied to the upper thigh. A full knee exam was done after anesthesia was in full effect. The patient had developed a varus deformity in the knee from cartilage wear and bone loss. Flexion contracture was moderate. The leg was prepped and draped in the usual sterile fashion. A surgical time-out was performed immediately preceding the incision with all personnel in the operating room; the patient identity was again confirmed, the correct knee surgical site and extremity were identified and confirmed, X-rays were reviewed, and availability of the appropriate surgical equipment was established. A surgical time-out was performed immediately preceding the incision with all personnel in the operating room; the p (more content not included)... [facility] SURGICAL PATHOLOGYon 023 CASE REPORT [facility] Comment on above: Order Comment: Speci men Type: TISSUE SPECIMENOrdering Facility: [facility] Address: [address] [place], [place] [address] Result Comment: Surg [facility] Pathology Report Case: [id number] Authorizing Provider: Chika Carpenter MD Collected: 09/10/2022 08:32 AM Ordering Location: [facility] Surgery Received: 09/10/2022 11:44 AM Pathologist: Timothy Dietz MD Specimen: KNEE ARTHROPLASTY RIGHT Performed By: #### S ####[facility] LAB[facility] [id number] [address] CLINICAL HISTORY [facility] Comment on above: Order Comment: Emilyi men Type: TISSUE SPECIMENOrdering Facility: [facility] Address: [address] [place], [place] [address] Result Comment: Pre- op diagnosis: Primary osteoarthritis of right knee [M17.11] Performed By: #### S ####[facility] LABCLIA [id number] [address] FINAL DIAGNOSIS [facility] Comment on above: Order Comment: Speci men Type: TISSUE SPECIMENOrdering Facility: [facility] Address: [address] [place], [place] [id number] Result Comment: Righ t knee, arthroplasty: - Degenerative joint disease. Performed By: #### S ####[facility] LABCLIA [id number] [address] [place] FINAL PERFORMING LAB [facility] Comment on above: Order Comment: Speci men Type: TISSUE SPECIMENOrdering Facility: [facility] Address: [address] [place] [address] Result Comment: Diag nostic interpretation performed at [place] [address] CLIA# [id number] Barnworker Groom: Oscar Goodson M.D. Performed By: #### S ####[facility] LABIA [id number] [address] OF [facility] DESCRIPTION Normal [facility] Comment on above: Order Comment: Speci men Type: TISSUE SPECIMENOrdering Facility: [facility] Address: [address] [place] [address] Result Comment: A. K NEE ARTHROPLASTY RIGHT Received in formalin, labeled as right knee arthroplasty are multiple segments of bone that aggregate to approximately 13.0 x 10.4 x 2.6 cm. One portion is recognizable as the tibial plateau and demonstrates minimal eburnation and moderate cartilage roughening. Separate fragments consistent with femoral condyles also show evidence of cartilage eburnation and roughening. Junior Automation Engineer sections are submitted as follows: A1 2 sections of condyles following decalcification A2 2 sections of tibial plateau following decalcification CG/MLG September 10, 2022 3:13 PM Gross examination performed at [facility], [address] [place] [address] Performed By: #### S ####[facility] LABIA [id number] [address] [place] THERAPY NTon 09-10-2022 THERAPY NT HNO ID: [id number] Author: Lynette Persaud, LORY Service: Physical Therapy Author Type: Physical Therapist Type: Therapy (PT/OT/Speech/Resp) Filed: 09/10/2022 4:21 PM Note Text: Physical Therapy Evaluation SERVICE DATE: 09/10/2022 SERVICE TIME: 1525 to 1603 ROOM: [id number] Recommended Discharge Disposition: Home PT Recommended Discharge Disposition Comments: to increase ROM/strength and progress safe functional mobility in his home Anticipated Discharge Needs: Physical Assist at Home, Supervision at Home Physical Assist at Home for: Cleaning, Laundry, Meals, Shopping, Transportation Supervision at Home due to: (initially for optimal safety) Recommended Discharge Equipment: To Be Determined PT 6 Clicks Score: 20 Precautions/Activity Restrictions: Fall Risk, Lines/Tubes/Drains, Total Knee Replacement, Weight Bearing Restrictions Extremity With Weight Bearing Restricted: Right Lower Extremity Right Lower Extremity Weight Bearing Status: WBAT Current Hospital Course: s/p R TKA 09/10/22 Reason for Hospital Admission: scheduled right TKA Relevant Past Medical History: hypercholesteremia, GERD, osteoarthritis, DM Response to Therapy Interventions: Good participation in activities, Pain Assessment Comments: patient presents with expected limitations post right TKA including pain, decreased ROM/stregh, decreased balance and tolerance and impaired functional mobility. patient AANDO x 3 and demonstrates good follow through with cues/educaiton. Patient demonstrates good tolerance with OOB activity. patient demonstrates safe amb wiht FWW with WBAT R LE. Continue skilled needs due to: Functional mobility/skill impairments, Safety concerns Physical Therapy Problem List: Pain, Safety Deficits, Impaired Self Care, Decreased Activity Tolerance, Decreased Range Of Motion, Decreased Strength, Functional Mobility Impairment, Balance Impaired Treatment Interventions: Education, Self Care / Home Management, Energy Conservation Training, Joint Mobility, Strengthening, Functional Mobility Training, Balance Training, Neuromuscular Re-education Plan for next visit: Bed mobility, Edema management, Fall prevention, Gait training, Exercise instruction/handout, Sit to Stand Transfers, Pre-gait activities, Sitting balance, Stairs training, Standing Balance, Standing Tolerance, Walker Training Home Environment Patient Lives With: Spouse Assistance Available: Part-Time Entry To Home: No Stairs Number Of Stairs To Bed/Bath: flight of stairs to bedroom and full bath; 1/2 bath on first floor Stairs to Bed/Bath with: Unilateral Rail Tub/Shower Type: tub/shower with shower chair Laundry: 2nd floor laundry - spouse to complete Equipment Owned: Crutch(es), Cane, Shower Chair, Other: See Comment (adjustable bed) Prior Functional Level: Within Functional Limits Prior Functional Level Comments: ind with amb without device, ADL/IADL, +drive and denies falls Patient Report: patient agreeable to PT and cleared by RN CURRENT FUNCTIONAL STATUS: Most recent performance Current Functional Mobility Assist Level Additional Information Rolling Supine to Sit Supervision, Additional Information HOB 45 deg, min rail use, appropriate pace Sit to Supine Stand By Assistance, Additional Information HOB 20 deg, min rail use, appropriate pace Scooting Stand By Assistance, Additional Information in sitting, fwd/retro at EOB Sit to Stand Contact Guard Assistance, Additional Information from lowered EOB with FWW. cues for hand placement. reinforced WBAT R LE Stand to Sit Contact Guard Assistance, Additional Information to EOB with FWW. cues for safe approach as patient reaches to sit back before all the way to EOB, cues for positioning at HOB, hand placement, right LE positioning and controlled descent Bed to Chair Toilet/Commode Gait Contact Guard Assistance, Additional Information Gait Device: Wheeled Walker Gait Distance (feet): 45 x 1 cues for step to pattern to unload right LE with increased UE use for pain/weakness. reinforced WBAT R LE. cues for walker negotiation/sequencing, distancing and turning. patient notes that he wants to progress tomorrow wiht crutches however education on benefit of FWW and wanting a more stable device to initiate OOB moiblity Stairs Curb Step Car Transfer Blank basurto indicate activity not attempted Gait Deviations Right Lower Extremity: Heel strike during initial stance decreased, Push off during terminal stance decreased, Lacks hip extension beyond mid-stance, Stance time decreased, Step length decreased, Weight bearing decreased General Deviations/Observations : Belén decreased, Difficulty changing direction/turning, Flexed trunk posture, Step length decreased Balance: Static Sitting, Dynamic Sitting, Static Standing, Dynamic Standing Static Sitting Balance: Good Patient able to maintain balance without handhold support, limited postural s (more content not included)... [facility] XR KNEE 2V AP/LAT RTon 09-10 XR KNEE 2V AP/LAT RT * * *Final Report* * * DATE OF EXAM: Sep 10 2022 10:38AM MDX 5207 - XR KNEE 2V AP/LAT RT / PROCEDURE REASON: Knee replacement, asymptomatic, follow up * * * * Physician Interpretation * * * * Right knee History: Postoperative knee replacement Findings: Portable AP and lateral non-weight bearing views performed. There are findings of a total knee replacement with patellar resurfacing. The alignment is anatomic. There is air in the anterior soft tissues. No evidence of acute fracture. IMPRESSION: Status post the joint placement without evidence of complication Digital Computer Systems Analyst: ENOCH Transcribe Date/Time: Sep 10 2022 12:40P Dictated by : TRAY BARKER MD This examination was interpreted and the report reviewed and electronically signed by: TRAY BARKER MD on Sep 10 2022 12:42PM EST [id number] [facility] CNPN Telephone (Joss TechnologyMDNA) LAWROBERTO A ([id number]) 1960 M Date Time Provider Department 09/09/22 CHIKA CARPENTER During your visit today, we recorded the following information about you: Eda Bassmings [facility] 09/09/2022 1:25 PM Signed Patient had motion on his ct scan. Please contact his to get him rescheduled. Please place a new ct order. Matthieu Esparza PA-C 09/09/2022 1:[address] order entered. BRIGETTE Yanez 09/09/2022 2:29 PM Signed Patients surgery is scheduled for tomorrow 09/10/22... not sure why the CT was done 2days before surgery... there are no openings for CT the rest of the day (I tried calling CT but no answer..) Any suggestions on what to do? Eda Bassmings [facility] 09/09/2022 2:48 PM Signed The [facility] rep said to please contact ct scan to have them redo it in the morning prior to surgery. He can try and get the information that way. This patient [place] so I am assuming that is why he couldn't do it any sooner. Latoya Brito 09/09/2022 4:04 PM Signed Patient r/s left VM for Latoya Brito 09/09/2022 4:17 PM Signed called back and confirmed CT scan Allergies As of Date: 09/09/2022 Noted Allergy Reaction CODEINE 07/18/2021 2 - Rash MORPHINE 10/26/2020 4 - Hives Date Reviewed: 08/26/2022 Reviewed by: Chika Carpenter MD - Fully Assessed Reason for Visit: Appointment [[id number]] Primary Visit Diagnosis:Primary osteoarthritis of right knee [M17.11] Order(s):CT KNEE WO IVCON RT [[id number]] Order #: [id number] FUTURE CT KNEE WO IVCON RT [[id number]] Order #: [id number]. #:[id number] Prescriptions as of 02/12/2023 - acetaminophen (TYLENOL) 500 mg tablet Take 2 tablets by mouth every 8 hours as needed for pain. - ascorbic acid, vitamin C, (VITAMIN C) 500 mg tablet Take 1 tablet by mouth twice daily with meals for 27 doses. - aspirin, enteric coated (ASPIRIN, ENTERIC COATED) 81 mg EC tablet Take 1 tablet by mouth twice daily for 28 days. - metFORMIN (GLUCOPHAGE) 500 mg tablet Take 500 mg by mouth twice daily with meals. - albuterol HFA (PROVENTIL HFA, VENTOLIN HFA) 90 mcg/actuation inhaler Inhale 2 Puffs as instructed. - umeclidinium-vilanterol (ANORO ELLIPTA) 62.5-25 mcg/actuation inhaler Inhale 1 Puff as instructed once daily as needed (shortness of breath). - AMLODIPINE-BENAZEPRIL 10-20 mg per capsule Take 1 capsule by mouth once daily. - NEXIUM 40 mg capsule Take 40 mg by mouth once daily. - CRESTOR 10 mg tablet Take 10 mg by mouth once daily. Meds Comments as of 09/12/2022: no interactions 2-2-23. Problem List As Of Date 09/09/2022 Noted Resolved HTN (hypertension) [I10] 06/11/2013 Lateral meniscal tear [S83.289A] 07/12/2013 Medial meniscus tear [S83.249A] 07/12/2013 Knee pain [M25.569] 04/08/2014 Degenerative arthritis of knee [M17.9] 04/08/2014 GERD (gastroesophageal reflux disease) [K21.9] 07/29/2014 Knee pain, left [M25.562] 08/29/2014 Left leg weakness [R29.898] 08/29/2014 Stiffness of knee joint [M25.669] 08/29/2014 Gait abnormality [R26.9] 08/29/2014 Type 2 diabetes mellitus without complication, *05/25/2016 Pure hypercholesterolemia [E78.00] 03/10/2015 Essential hypertension, benign [I10] 06/11/2013 Allergic rhinitis [J30.9] 03/10/2015 Class 1 obesity with body mass index (BMI) of 3*08/16/2022 Former smoker [Z87.891] 08/16/2022 Encounter Status:Closed by EDA CASTELLANOS on 02/12/23 Normal [facility] CT KNEE WO IVCON RTon 2022 CT KNEE WO IVCON RT * * *Final Report* * * DATE OF EXAM: Sep 07 2022 8:29AM [facility] 0084 - CT KNEE WO IVCON RT / PROCEDURE REASON: multiple diagnoses * * * * Physician Interpretation * * * * EXAM: CT KNEE WO IVCON RT HISTORY: Primary osteoarthritis of right knee Preop testing TECHNIQUE: CT right knee without contrast ([facility] CT protocol) CT Radiation dose: Integrated Dose-length product (DLP) for this visit = 859 mGy*cm. CT Dose Reduction Employed: Automated exposure control(AEC) and iterative recon COMPARISON: FINDINGS: Osteoarthritis, most severe in the medial joint compartment. Joint effusion. No acute abnormality at the hip and ankle. There are bilateral fat-containing inguinal hernias. . IMPRESSION: Right knee osteoarthritis, preoperative [facility] CT protocol for robotic assisted total joint replacement. Digital Computer Systems Analyst: [facility] Transcribe Date/Time: Sep 08 2022 12:39P Dictated by : JIHAN MIX MD This examination was interpreted and the report reviewed and electronically signed by: JIHAN MIX MD on Sep 08 2022 12:41PM EST [id number] Normal [facility] SARS-CoV-2 RNA Resp Ql MALACHI+p robeon 09-07-2022 SARS-CoV-2 (COVID-19) RNA MALACHI+probe Ql (Resp) COVID 19 RESULT: SARS-CoV-2 (Agent of COVID-19) Not Detected by RT-PCR or equivalent method. This test was developed and its performance characteristics determined by [facility]'s Regla Cheng [facility] Pathology and Laboratory Medicine [place]. This test has been authorized by FDA under an Emergency Use Authorization (EUA). This test has been validated in accordance with the FDA's Guidance Document Policy for Diagnostics Testing in Laboratories Certified to Perform High Complexity Testing under CLIA prior to Emergency use Authorization for Coronavirus Disease 2019 during the Public Health Emergency issued on October 09, 2019. Test performed by [facility], [facility] Pathology and Laboratory Medicine [place], [facility] [place] [address]. Normal [facility] Comment on above: Performed By: #### 9 4500-6 ####[facility] LABCLIA [id number] [place] [address] [place] SELF CHECK COVIDon 3 SARS-CoV-2 (COVID-19) RNA MALACHI+probe Ql (Resp) SARS-CoV-2 (Agent of COVID-19) Not Detected by RT-PCR or equivalent method. Not Detected [facility] CNPHolly 09-03-2022 CNPN Telephone (ORMDNA) ROBERTO OSBORN ([id number]) 1960 Date Time Provider Department 09/03/22 CHIKA CARPENTER ORGARETH During your visit today, we recorded the following information about you: Clemente Self 09/03/2022 3:19 PM Signed Type of form: Long-term Disability Form received via walk in from Dianne When form is completed, Fax form to [phone] Form has been forwarded to [facility] Dianne is wanting to grain picker the completed forms once they have been faxed please. Thanks, Clemente Allergies As of Date: 09/03/2022 Noted Allergy Reaction CODEINE 07/18/2021 2 - Rash MORPHINE 10/26/2020 4 - Hives Date Reviewed: 08/26/2022 Reviewed by: Chika Carpenter MD - Fully Assessed Reason for Visit: Forms [913] Prescriptions as of 09/09/2022 - mupirocin (BACTROBAN) 2 % ointment Apply 0.5 inch with cotton swab (Q-tip) to each nostril in the morning and evening for 5 days prior to and including day of surgery. - metFORMIN (GLUCOPHAGE) 500 mg tablet Take 500 mg by mouth twice daily with meals. - albuterol HFA (PROVENTIL HFA, VENTOLIN HFA) 90 mcg/actuation inhaler Inhale 2 Puffs as instructed. - umeclidinium-vilanterol (ANORO ELLIPTA) 62.5-25 mcg/actuation inhaler Inhale 1 Puff as instructed as needed. - AMLODIPINE-BENAZEPRIL 10-20 mg per capsule Take 1 capsule by mouth once daily. - NEXIUM 40 mg capsule Take 40 mg by mouth once daily. - CRESTOR 10 mg tablet Take 10 mg by mouth once daily. Problem List As Of Date 09/03/2022 Noted Resolved HTN (hypertension) [I10] 06/11/2013 Lateral meniscal tear [S83.289A] 07/12/2013 Medial meniscus tear [S83.249A] 07/12/2013 Knee pain [M25.569] 04/08/2014 Degenerative arthritis of knee [M17.9] 04/08/2014 GERD (gastroesophageal reflux disease) [K21.9] 07/29/2014 Knee pain, left [M25.562] 08/29/2014 Left leg weakness [R29.898] 08/29/2014 Stiffness of knee joint [M25.669] 08/29/2014 Gait abnormality [R26.9] 08/29/2014 Type 2 diabetes mellitus without complication, *05/25/2016 Pure hypercholesterolemia [E78.00] 03/10/2015 Essential hypertension, benign [I10] 06/11/2013 Allergic rhinitis [J30.9] 03/10/2015 Class 1 obesity with body mass index (BMI) of 3*08/16/2022 Former smoker [Z87.891] 08/16/2022 Encounter Status:Closed by EDA CASTELLANOS on 09/09/22 Normal [facility] Anne 08-22-2022 CNPN Telephone (ORMDNA) ROBERTO OSBORN SR ([id number]) 1960 M Date Time Provider Department 08/22/22 CHIKA CARPENTER ORGARETH During your visit today, we recorded the following information about you: Eda Mijares [facility] 08/22/2022 3:[address] self test covid order and CT scan order for Rt tka wilmer 09/10/[address]. [address] Matthieu Esparza PA-C 08/22/2022 3:36 PM Signed COVID and CT orders entered. Matthieu Esparza PA-C August 22, 2022 3:35 PM Allergies As of Date: 08/22/2022 Noted Allergy Reaction CODEINE 07/18/2021 2 - Rash MORPHINE 10/26/2020 4 - Hives Date Reviewed: 08/16/2022 Reviewed by: Yanet Boyle PA-C - Fully Assessed Reason for Visit: Orders [681] Primary Visit Diagnosis:Primary osteoarthritis of right knee [M17.11] Other Visit Diagnoses:Preop testing [Z01.818] Encounter for preoperative screening laboratory testing for COVID-19 virus [Z01.812, Z20.822] Order(s):CT KNEE WO IVCON RT [[id number]] Order #: [id number] FUTURE SELF CHECK COVID [SQHCCOVD] Order #: [id number]. #:[id number] Prescriptions as of 02/07/2023 - acetaminophen (TYLENOL) 500 mg tablet Take 2 tablets by mouth every 8 hours as needed for pain. - ascorbic acid, vitamin C, (VITAMIN C) 500 mg tablet Take 1 tablet by mouth twice daily with meals for 27 doses. - aspirin, enteric coated (ASPIRIN, ENTERIC COATED) 81 mg EC tablet Take 1 tablet by mouth twice daily for 28 days. - metFORMIN (GLUCOPHAGE) 500 mg tablet Take 500 mg by mouth twice daily with meals. - albuterol HFA (PROVENTIL HFA, VENTOLIN HFA) 90 mcg/actuation inhaler Inhale 2 Puffs as instructed. - umeclidinium-vilanterol (ANORO ELLIPTA) 62.5-25 mcg/actuation inhaler Inhale 1 Puff as instructed once daily as needed (shortness of breath). - AMLODIPINE-BENAZEPRIL 10-20 mg per capsule Take 1 capsule by mouth once daily. - NEXIUM 40 mg capsule Take 40 mg by mouth once daily. - CRESTOR 10 mg tablet Take 10 mg by mouth once daily. Meds Comments as of 09/12/2022: no interactions 09-12-22. Problem List As Of Date 08/22/2022 Noted Resolved HTN (hypertension) [I10] 06/11/2013 Lateral meniscal tear [S83.289A] 07/12/2013 Medial meniscus tear [S83.249A] 07/12/2013 Knee pain [M25.569] 04/08/2014 Degenerative arthritis of knee [M17.9] 04/08/2014 GERD (gastroesophageal reflux disease) [K21.9] 07/29/2014 Knee pain, left [M25.562] 08/29/2014 Left leg weakness [R29.898] 08/29/2014 Stiffness of knee joint [M25.669] 08/29/2014 Gait abnormality [R26.9] 08/29/2014 Type 2 diabetes mellitus without complication, *05/25/2016 Pure hypercholesterolemia [E78.00] 03/10/2015 Essential hypertension, benign [I10] 06/11/2013 Allergic rhinitis [J30.9] 03/10/2015 Class 1 obesity with body mass index (BMI) of 3*08/16/2022 Former smoker [Z87.891] 08/16/2022 Encounter Status:Closed by EDA CASTELLANOS on 02/07/23 Luis Daniel [facility] [place] 08-20-2022 KATIE Telephone (ME2E) ROBERTO OSBORN SR ([id number]) 1960 M Date Time Provider Department 08/20/22 CHIKA CARPENTER During your visit today, we recorded the following information about you: FILIBERTO Villalobos 08/20/2022 4:02 PM Signed TOTAL JOINT COMPLETE CARE PROGRAM PRE-OPERATIVE TEACHING Service Date: 08/20/2022 Service Time: 4:00 PM Date of : 1960 Gender: male Date of Surgery: 09/10/22 Procedure: Right Total Knee Replacement Complete Care Program was discussed with the patient: All Source Intelligence Analyst Identification: Patient identified a manager respiratory care to help when discharged to home: spouse Home Environment: Home Layout: 2 story, Entry Steps: 0, Bedroom Location: 2nd floor, Bathroom Location: 2nd floor, and tub shower. Pt owns walker, crutches, shower chair. Discussed with patient importance of attending joint education class and provided date and times of class: YES paper copy. TKA 2013 Patient received Joint Education Binder: Yes Plans discharge home with [facility]. SIGNATURE: FILIBERTO Villalobos PATIENT NAME: Roberto Osborn SR DATE: August 20, 2022 TIME: 4:00 PM Allergies As of Date: 08/20/2022 Noted Allergy Reaction CODEINE 07/18/2021 2 - Rash MORPHINE 10/26/2020 4 - Hives Date Reviewed: 08/16/2022 Reviewed by: Yanet Boyle PA-C - Fully Assessed Reason for Visit: Pre-Op Teaching [134] Prescriptions as of 08/20/2022 - mupirocin (BACTROBAN) 2 % ointment Apply 0.5 inch with cotton swab (Q-tip) to each nostril in the morning and evening for 5 days prior to and including day of surgery. - metFORMIN (GLUCOPHAGE) 500 mg tablet Take 500 mg by mouth twice daily with meals. - albuterol HFA (PROVENTIL HFA, VENTOLIN HFA) 90 mcg/actuation inhaler Inhale 2 Puffs as instructed. - umeclidinium-vilanterol (ANORO ELLIPTA) 62.5-25 mcg/actuation inhaler Inhale 1 Puff as instructed as needed. - AMLODIPINE-BENAZEPRIL 10-20 mg per capsule Take 1 capsule by mouth once daily. - NEXIUM 40 mg capsule Take 40 mg by mouth once daily. - CRESTOR 10 mg tablet Take 10 mg by mouth once daily. Problem List As Of Date 08/20/2022 Noted Resolved HTN (hypertension) [I10] 06/11/2013 Lateral meniscal tear [S83.289A] 07/12/2013 Medial meniscus tear [S83.249A] 07/12/2013 Knee pain [M25.569] 04/08/2014 Degenerative arthritis of knee [M17.9] 04/08/2014 GERD (gastroesophageal reflux disease) [K21.9] 07/29/2014 Knee pain, left [M25.562] 08/29/2014 Left leg weakness [R29.898] 08/29/2014 Stiffness of knee joint [M25.669] 08/29/2014 Gait abnormality [R26.9] 08/29/2014 Type 2 diabetes mellitus without complication, *05/25/2016 Pure hypercholesterolemia [E78.00] 03/10/2015 Essential hypertension, benign [I10] 06/11/2013 Allergic rhinitis [J30.9] 03/10/2015 Class 1 obesity with body mass index (BMI) of 3*08/16/2022 Former smoker [Z87.891] 08/16/2022 Encounter Status:Closed by RONY DOYLE on 08/20/22 Normal [facility] Basic metabolic 2000 panelon 08-16-2022 Anion gap [Moles/Vol] 11 mmol/L Normal 9-18 [facility] Comment on above: Order Comment: Speci men Type: BLOOD SPECIMENOrdering Facility: [facility] Address: [address] [place] [id number] Performed By: #### 2 276-4, 75257-5, 85930-6 ####[facility] [id number] [place] [address] [place] Calcium [Mass/Vol] 9.2 mg/dL Normal 8.5-10.2 [facility] Comment on above: Order Comment: Speci men Type: BLOOD SPECIMENOrdering Facility: [facility] Address: [address] [place] [address] Performed By: #### 2 276-4, 37156-9, 64973-4 ####[facility]ORYCL[facility] [id number] [address] OF [facility] Chloride [Moles/Vol] 101 mmol/L Normal 97-105 [facility] Comment on above: Order Comment: Speci men Type: BLOOD SPECIMENOrdering Facility: [facility] Address: [address] [place] [address] Performed By: #### 2 276-4, 22097-8, 49991-6 ####[facility]ORYCL[facility] [id number] [place] [address] [place] CO2 [Moles/Vol] 25 mmol/L Normal 22-30 [facility] Comment on above: Order Comment: Speci men Type: BLOOD SPECIMENOrdering Facility: [facility] Address: [address] [place] [address] Performed By: #### 2 276-4, 58849-0, 99091-7 ####[facility]ORYCLIA [id number] [address] STATES OF [facility] Creatinine [Mass/Vol] 0.56 mg/dL Low 0.73-1.22 [facility] Comment on above: Order Comment: Speci men Type: BLOOD SPECIMENOrdering Facility: [facility] Address: [address] [place] [address] Performed By: #### 2 276-4, 32561-9, 51636-4 ####[facility]ORYCL[facility] [id number] [address] OF [facility] ESTIMATED GLOMERULAR FILTRATION RATE 111 mL/min/1.73m??? Normal >=60 [facility] Comment on above: Order Comment: Speci men Type: BLOOD SPECIMENOrdering Facility: [facility] Address: [address] [place] [address] Result Comment: Snehal mated Glomerular Filtration Rate (eGFR) is calculated using the 2020 CKD-EPI creatinine equation. This equation utilizes serum creatinine, sex, and age as parameters. The creatinine assay has traceable calibration to isotope dilution-mass spectrometry. Refer to KDIGO guidelines for clinical interpretation. In patients with unstable renal function, e.g. those with acute kidney injury, the eGFR may not accurately reflect actual GFR. Performed By: #### 2 276-4, 37598-5, 17868-5 ####[facility]ORYCLIA [id number] [place] [address] [place] Glucose [Mass/Vol] 140 mg/dL High 74-99 [facility] Comment on above: Order Comment: Vera grant Type: BLOOD SPECIMENOrdering Facility: [facility] Address: [address] [place], [place] [id number] Result Comment: The [place] Diabetes Association (ADA) provides guidance for cutoff values for fasting glucose and random glucose. The ADA defines fasting as no caloric intake for at least 8 hours. Fasting plasma glucose results between 100 to 125 mg/dL indicate increased risk for diabetes (prediabetes). Fasting plasma glucose results greater than or equal to 126 mg/dL meet the criteria for diagnosis of diabetes. In the absence of unequivocal hyperglycemia, results should be confirmed by repeat testing. In a patient with classic symptoms of hyperglycemia or hyperglycemic crisis, random plasma glucose results greater than or equal to 200 mg/dL meet the criteria for diagnosis of diabetes. Reference: Standards of Medical Care in Diabetes 2016, [place] Diabetes Association. Diabetes Care. 2016.39(Suppl 1). Performed By: #### 2 276-4, 47422-0, 24351-0 ####[facility]ORYCLIA [id number] [place] [id number] [place] Potassium [Moles/Vol] 4.3 mmol/L Normal 3.7-5.1 [facility] Comment on above: Order Comment: Vera [facility] Type: BLOOD SPECIMENOrdering Facility: [facility] Address: [address] [place] [address] Performed By: #### 2 276-4, 43637-5, 63261-4 ####[facility]ATORYCLIA [id number] [place] [address] [place] Sodium [Moles/Vol] 137 mmol/L Normal 136-144 [facility] Comment on above: Order Comment: Speci men Type: BLOOD SPECIMENOrdering Facility: [facility] Address: [address] [facility] [place] [address] Performed By: #### 2 276-4, 98452-7, 97275-5 ####[facility]ORYCLIA [id number] [address] STATES [facility] Urea nitrogen [Mass/Vol] 12 mg/dL Normal 9-24 [facility] Comment on above: Order Comment: Speci men Type: BLOOD SPECIMENOrdering Facility: [facility] Address: [address] [place] [address] Performed By: #### 2 276-4, 95002-9, 66264-5 ####[facility]ORYCLIA [id number] [address] [place] Anion gap [Moles/Vol] 11 mmol/L 9 - 18 mmol/L [facility] Calcium [Mass/Vol] 9.2 mg/dL 8.5 - 10. 2 mg/dL [facility] Chloride [Moles/Vol] 101 mmol/L 97 - 10 5 mmol/L [facility] CO2 [Moles/Vol] 25 mmol/L 22 - 30 mmol/L [facility] Creatinine [Mass/Vol] 0.56 mg/dL Low 0.73 - 1.22 mg/dL [facility] Estimated Glomerular Filtration Rate 111 mL/min/1.73m >=60 mL/min/1.73m [facility] Glucose [Mass/Vol] 140 mg/dL High 74 - 99 mg/dL [facility] Potassium [Moles/Vol] 4.3 mmol/L 3.7 - 5.1 mmol/L [facility] Sodium [Moles/Vol] 137 mmol/L 136 - 144 mmol/L [facility] Urea nitrogen [Mass/Vol] 12 mg/dL 9 - 24 mg/dL [facility] CBC W Auto Differential pane l (Bld)on 08-16-2022 Basophils (Bld) [#/Vol] 0.03 10*3/uL Normal <0.11 [facility] Comment on above: Order Comment: Speci men Type: BLOOD SPECIMENOrdering Facility: [facility] Address: [address] [place] [address] Performed By: #### 5 7021-8 ####[facility]ORYCLIA [id number] [address] [place] Basophils/100 WBC (Bld) 0.3 % Normal [facility] Comment on above: Order Comment: Speci men Type: BLOOD SPECIMENOrdering Facility: [facility] Address: [address] [place] [address] Performed By: #### 5 7021-8 ####[facility]ATORYCLIA [id number] [place] [address] [place] Differential cell count method Nom (Bld) Auto Normal [facility] Comment on above: Order Comment: Speci men Type: BLOOD SPECIMENOrdering Facility: [facility] Address: [address] [place] [address] Performed By: #### 5 7021-8 ####[facility]ORYCLIA [id number] [place] [address] [place] Eosinophils (Bld) [#/Vol] 0.07 10*3/uL Normal <0.46 [facility] Comment on above: Order Comment: Speci men Type: BLOOD SPECIMENOrdering Facility: [facility] Address: [address] [place] [address] Performed By: #### 5 7021-8 ####[facility]ORYCLIA [id number] [address] Eosinophils/100 WBC (Bld) 0.7 % Normal [facility] Comment on above: Order Comment: Speci men Type: BLOOD SPECIMENOrdering Facility: [facility] Address: [address] [place] [address] Performed By: #### 5 7021-8 ####[facility]ORYCLIA [id number] [address] [place] Erythrocyte distribution width (RBC) [Ratio] 14.3 % Normal 11.5-15.0 [facility] Comment on above: Order Comment: Speci men Type: BLOOD SPECIMENOrdering Facility: [facility] Address: [address] [place] [address] Performed By: #### 5 7021-8 ####[facility]ORYCLIA [id number] [address] [place] Hematocrit (Bld) [Volume fraction] 39.9 % Normal 39.0-51.0 [facility] Comment on above: Order Comment: Speci men Type: BLOOD SPECIMENOrdering Facility: [facility] Address: [address] [place] [address] Performed By: #### 5 7021-8 ####[facility]ORYCLIA [id number] [place] [address] [place] Hemoglobin (Bld) [Mass/Vol] 13.7 g/dL Normal 13.0-17.0 [facility] Comment on above: Order Comment: Speci men Type: BLOOD SPECIMENOrdering Facility: [facility] Address: [address] [place] [address] Performed By: #### 5 7021-8 ####[facility]ORYCLIA [id number] [place] [address] [place] Immature granulocytes (Bld) [#/Vol] 0.05 10*3/uL Normal <0.10 [facility] Comment on above: Order Comment: Speci men Type: BLOOD SPECIMENOrdering Facility: [facility] Address: [address] [place] [address] Performed By: #### 5 7021-8 ####[facility]ORYCLIA [id number] [address] [place] Immature granulocytes/100 WBC (Bld) 0.5 % Normal [facility] Comment on above: Order Comment: Speci men Type: BLOOD SPECIMENOrdering Facility: [facility] Address: [address] [place] [address] Performed By: #### 5 7021-8 ####[facility]ORYCLIA [id number] [place] [address] [place] Lymphocytes (Bld) [#/Vol] 1.14 10*3/uL Normal 1.00-4.00 [facility] Comment on above: Order Comment: Speci men Type: BLOOD SPECIMENOrdering Facility: [facility] Address: [address] [place] [address] Performed By: #### 5 7021-8 ####[facility]ORYCLIA [id number] [address] Lymphocytes/100 WBC (Bld) 10.7 % Normal [facility] Comment on above: Order Comment: Speci men Type: BLOOD SPECIMENOrdering Facility: [facility] Address: [address] [place] [address] Performed By: #### 5 7021-8 ####[facility]ORYCLIA [id number] [address] MCH (RBC) [Entitic mass] 30.7 pg Normal 26.0-34.0 [facility] Comment on above: Order Comment: Speci men Type: BLOOD SPECIMENOrdering Facility: [facility] Address: [address] [place] [address] Performed By: #### 5 7021-8 ####[facility]ORYCLIA [id number] [address] MCHC (RBC) [Mass/Vol] 34.3 g/dL Normal 30.5-36.0 [facility] Comment on above: Order Comment: Speci men Type: BLOOD SPECIMENOrdering Facility: [facility] Address: [address] [place] [address] Performed By: #### 5 7021-8 ####[facility]ORYCLIA [id number] [address] MCV (RBC) [Entitic vol] 89.5 fL Normal 80.0-100.0 [facility] Comment on above: Order Comment: Speci men Type: BLOOD SPECIMENOrdering Facility: [facility] Address: [address] [place] [address] Performed By: #### 5 7021-8 ####[facility]ORYCLIA [id number] [address] Monocytes (Bld) [#/Vol] 0.60 10*3/uL Normal <0.87 [facility] Comment on above: Order Comment: Speci men Type: BLOOD SPECIMENOrdering Facility: [facility] Address: [address] [place] [address] Performed By: #### 5 7021-8 ####[facility]ORYCLIA [id number] [place] [address] [place] Monocytes/100 WBC (Bld) 5.6 % Normal [facility] Comment on above: Order Comment: Speci men Type: BLOOD SPECIMENOrdering Facility: [facility] Address: [address] [place] [address] Performed By: #### 5 7021-8 ####[facility]ORYCLIA [id number] [place] [address] [place] Neutrophils (Bld) [#/Vol] 8.74 10*3/uL High 1.45-7.50 [facility] Comment on above: Order Comment: Speci men Type: BLOOD SPECIMENOrdering Facility: [facility] Address: [address] [place] [address] Performed By: #### 5 7021-8 ####[facility]ORYCLIA [id number] [place] [address] [place] Neutrophils/100 WBC (Bld) 82.2 % Normal [facility] Comment on above: Order Comment: Speci men Type: BLOOD SPECIMENOrdering Facility: [facility] Address: [address] [place] [address] Performed By: #### 5 7021-8 ####[facility]ORYCLIA [id number] [place] [address] [place] Nucleated RBC (Bld) [#/Vol] 10*3/uL Normal <0.01 [facility] Comment on above: Order Comment: Speci men Type: BLOOD SPECIMENOrdering Facility: [facility] Address: [address] [place] [address] Performed By: #### 5 7021-8 ####[facility] LABORATORYCLIA [id number] [place] [address] [place] Nucleated RBC/100 WBC (Bld) [Ratio] 0.0 /100 WBC Normal [facility] Comment on above: Order Comment: Speci men Type: BLOOD SPECIMENOrdering Facility: [facility] Address: [address] [address] Performed By: #### 5 7021-8 ####[facility] LABORATORYCLIA [id number] [place] [address] [place] Platelet mean volume (Bld) [Entitic vol] 9.0 fL Normal 9.0-12.7 [facility] Comment on above: Order Comment: Speci men Type: BLOOD SPECIMENOrdering Facility: [facility] Address: [address] [place] [address] Performed By: #### 5 7021-8 ####[facility] LABORATORYCLIA [id number] [place] [address] [place] Platelets (Bld) [#/Vol] 314 10*3/uL Normal 150-400 [facility] Comment on above: Order Comment: Speci men Type: BLOOD SPECIMENOrdering Facility: [facility] Address: [address] [place] [address] Performed By: #### 5 7021-8 ####[facility] LABORATORYCLIA [id number] [place] [address] [place] RBC (Bld) [#/Vol] 4.46 10*6/uL Normal 4.20-6.00 [facility] Comment on above: Order Comment: Speci men Type: BLOOD SPECIMENOrdering Facility: [facility] Address: [address] [place] [address] Performed By: #### 5 7021-8 ####[facility] LABORATORYCLIA [id number] [place] [address] [place] WBC (Bld) [#/Vol] 10.63 10*3/uL Normal 3.70-11.00 [facility] Comment on above: Order Comment: Speci men Type: BLOOD SPECIMENOrdering Facility: [facility] Address: [address] [place] [address] Performed By: #### 5 7021-8 ####[facility] LABORATORYCLIA [id number] [place] [address] [place] Basophils (Bld) [#/Vol] 0.03 10*3/uL <0.11 k/uL [facility] Basophils/100 WBC (Bld) 0.3 % [facility] Differential cell count method Nom (Bld) Auto [facility] Eosinophils (Bld) [#/Vol] 0.07 10*3/uL <0.46 k/uL [facility] Eosinophils/100 WBC (Bld) 0.7 % [facility] Erythrocyte distribution width (RBC) [Ratio] 14.3 % 11.5 - 15.0 % [facility] Hematocrit (Bld) [Volume fraction] 39.9 % 39.0 - 51.0 % [facility] Hemoglobin (Bld) [Mass/Vol] 13.7 g/dL 13.0 - 17.0 g/dL [facility] Immature granulocytes (Bld) [#/Vol] 0.05 10*3/uL <0.10 k/uL [facility] Immature granulocytes/100 WBC (Bld) 0.5 % [facility] Lymphocytes (Bld) [#/Vol] 1.14 10*3/uL 1.00 - 4.00 k/uL [facility] Lymphocytes/100 WBC (Bld) 10.7 % [facility] MCH (RBC) [Entitic mass] 30.7 pg 26.0 - 34.0 pg [facility] MCHC (RBC) [Mass/Vol] 34.3 g/dL 30.5 - 36.0 g/dL [facility] MCV (RBC) [Entitic vol] 89.5 fL 80.0 - 100.0 fL [facility] Monocytes (Bld) [#/Vol] 0.60 10*3/uL <0.87 k/uL [facility] Monocytes/100 WBC (Bld) 5.6 % [facility] Neutrophils (Bld) [#/Vol] 8.74 10*3/uL High 1.45 - 7.50 k/uL [facility] Neutrophils/100 WBC (Bld) 82.2 % [facility] Nucleated RBC (Bld) [#/Vol] <0.01 k/uL [facility] Nucleated RBC/100 WBC (Bld) [Ratio] 0.0 /100 WBC [facility] Platelet mean volume (Bld) [Entitic vol] 9.0 fL 9.0 - 12.7 fL [facility] Platelets (Bld) [#/Vol] 314 10*3/uL 150 - 400 k/uL [facility] RBC (Bld) [#/Vol] 4.46 10*6/uL 4.20 - 6.0 0 m/uL [facility] WBC (Bld) [#/Vol] 10.63 10*3/uL 3.70 - 11 .00 k/uL [facility] ECG COMPLETEon 08-16-2022 Atrial Rate 77 BPM [facility] Calculated P [place] 57 degrees [facility] Calculated R [place] -3 degrees [facility] Calculated T [place] 30 degrees [facility] P-R Interval 172 ms [facility] QRS Duration 98 ms [facility] QT Interval 378 ms [facility] QTC Calculation (Bazett) 427 ms [facility] Ventricular Rate 77 BPM [facility] [id number] 08-16-2022 ECG01 Ventricular Rate : 7 7 BPM Atrial Rate : 77 BPM P-R Interval : 172 ms QRS Duration : 98 ms Q-T Interval : 378 ms QTC Calculation(Bazett) : 427 ms Calculated P [place] : 57 degrees Calculated R [place] : -3 degrees Calculated T [place] : 30 degrees NORMAL SINUS RHYTHM NORMAL ECG WHEN COMPARED WITH ECG OF 29-JUL-2014 08:31, NO SIGNIFICANT CHANGE WAS FOUND Confirmed by ELIJAH BURNS M.D. ([id number]) on 08/16/2022 2:14:14 PM NAME : ROBERTO OSBORN PID : [id number] : 1960 Gender : Male Race : ORD : [id number] Procedure Date : Aug 16 2022 08:49:58 Edit Date : Aug 16 2022 14:14:15 Diagnosis: NORMAL SINUS RHYTHM NORMAL ECG WHEN COMPARED WITH ECG OF 29-JUL-2014 08:31, NO SIGNIFICANT CHANGE WAS FOUND Confirmed by ELIJAH BURNS M.D. ([id number]) on 08/16/2022 2:14:14 PM Test Reason : Location : 10 : [facility]/ Overread By : ELIJAH BURNS M.D. Edited By : ELIJAH BURNS M.D. Referred By : YANET BOYLE Acquired by : EL [facility] FERRITIN BLDon 08-16-2022 Ferritin [Mass/Vol] 138.0 ng/mL 30.3 - 5 65.7 ng/mL [facility] Ferritin SerPl-mCncon 01-06- 2023 Ferritin [Mass/Vol] 138.0 ng/mL Normal 30.3-565.7 [facility] Comment on above: Order Comment: Vera grant Type: BLOOD SPECIMENOrdering Facility: [facility] Address: [address] [address] Performed By: #### 2 276-4, 46408-2, 65293-6 ####[facility] LABORATORYCLIA [id number] [address] [facility] HbA1c (Bld)on 08-16-2022 Average glucose Estimated from glycated hemoglobin (Bld) [Mass/Vol] 131 mg/dL [facility] HbA1c (Bld) [Mass fraction] 6.2 % High 4.3 - 5.6 % [facility] Average glucose Estimated from glycated hemoglobin (Bld) [Mass/Vol] 131 mg/dL Normal [facility] Comment on above: Order Comment: Vera grant Type: BLOOD SPECIMENOrdering Facility: [facility] Address: [address] [place] [address] Result Comment: eAG: (Estimated average glucose) is a calculated value from HgbA1c and is sales utility representative of the average blood glucose level in the last 2-3 month period. Performed By: #### 5 5454-3 ####[facility] LABCLIA [id number] [address] [place] [facility] HbA1c (Bld) [Mass fraction] 6.2 % High 4.3-5.6 [facility] Comment on above: Order Comment: Vera grant Type: BLOOD SPECIMENOrdering Facility: [facility] Address: [address] [place] [address] Result Comment: Amer [place] Diabetes Association guidelines indicate that patients with HgbA1c in the range 5.7-6.4% are at increased risk for development of diabetes, and intervention by lifestyle modification may be beneficial. HgbA1c greater or equal to 6.5% is considered diagnostic of diabetes. Performed By: #### 5 5454-3 ####[facility] LABCLIA [id number] [address] [place] [facility] Iron and Iron binding capaci ty panelon 08-16-2022 Iron [Mass/Vol] 151 ug/dL Normal 41-186 [facility] Comment on above: Order Comment: Speci men Type: BLOOD SPECIMENOrdering Facility: [facility] Address: [address] [address] Performed By: #### 2 276-4, 84657-2, 50628-5 ####[facility] LABORATORYCLIA [id number] [address] Iron binding capacity [Mass/Vol] 338 ug/dL Normal 232-386 [facility] Comment on above: Order Comment: Speci men Type: BLOOD SPECIMENOrdering Facility: [facility] Address: [address] [place] [address] Performed By: #### 2 276-4, 93810-5, 05257-6 ####[facility] LABORATORYCLIA [id number] [address] Iron/TIBC [Molar ratio] 44.7 % Normal 15.0-57.0 [facility] Comment on above: Order Comment: Speci men Type: BLOOD SPECIMENOrdering Facility: [facility] Address: [address] [place] [address] Performed By: #### 2 276-4, 13087-1, 38867-0 ####[facility] LABORATORYCLIA [id number] [address] Iron [Mass/Vol] 151 ug/dL 41 - 186 ug/dL [facility] Iron binding capacity [Mass/Vol] 338 ug/dL 232 - 386 ug/dL [facility] Iron/TIBC [Molar ratio] 44.7 % 15.0 - 57.0 % [facility] TYPE AND SCREEN,30 DAYon ABO O Normal [facility] Comment on above: Order Comment: Speci men Type: BLOOD SPECIMENOrdering Facility: [facility] Address: [address] [place] [address] Performed By: #### T SCR30 ####[facility] BLO[facility] BANKCLIA [id number] [address] HISTORICAL AB SCR STATUS Negative Normal [facility] Comment on above: Order Comment: Speci men Type: BLOOD SPECIMENOrdering Facility: [facility] Address: [address] [address] Performed By: #### T SCR30 ####[facility] BLOOD BANKCLIA [id number] [place] [address] [facility] [place] Rh Nom (Bld) Positive Normal [facility] Comment on above: Order Comment: Speci men Type: BLOOD SPECIMENOrdering Facility: [facility] Address: [address] Performed By: #### T SCR30 ####[facility] BLOOD BANKIA [id number] [address] [place] ABO O [facility] HIstorical Ab Scr Status Negative [facility] Rh Nom (Bld) Positive [facility] HISTORY PHYSICALon HISTORY PHYSICAL HNO ID: [id number] Author: Yanet Boyle PA-C Service: ? Author Type: Physician Sheet Metal Fabricator Type: HANDP Filed: 08/16/2022 9:28 AM Note Text: HISTORY AND PHYSICAL EXAMINATION SERVICE DATE: 08/16/2022 SERVICE TIME: 8:56 AM PRIMARY CARE PHYSICIAN: Timothy Correa MD REASON FOR VISIT: Roberto Osborn SR is a 62 year old male who is scheduled for Procedure(s): ROBOTIC ASSISTED TOTAL KNEE ARTHROPLASTY (Right) at the request of Dr. Chika Carpenter MD for consultation. My final recommendation will be communicated back to the requesting physician by way of shared medical record or letter. Subjective The patient has the following: ACTIVE PROBLEM LIST Htn (Hypertension) Lateral Meniscal Tear Medial Meniscus Tear Knee Pain Degenerative Arthritis of Knee Gerd (Gastroesophageal Reflux Disease) Knee Pain, Left Left Leg Weakness Stiffness of Knee Joint Gait Abnormality Type 2 Diabetes Mellitus Without Complication, Without Long-Term Current Use of Insulin (Hcc) Pure Hypercholesterolemia Essential Hypertension, Benign Allergic Rhinitis Class 1 Obesity With Body Mass Index (Bmi) of 33.0 to 33.9 in Adult Former Smoker COVID-19 Immunization Status Overdue - COVID-19 VACCINE (3 - Booster for Moderna series) Overdue since 09/07/2021 07/13/2021 Imm Admin: COVID-19 original vaccine, full dose, monovalent (MODERNA) 06/05/2021 Imm Admin: COVID-19 original vaccine, full dose, monovalent (MODERNA) CHIEF COMPLAINT: right knee pain HPI: Roberto Osborn SR is a 62 year old male presenting for pre-anesthesia consultation. Pt has history of right knee pain. Pain is sharp and aching. Denies injury. Pain is worse with walking and climbing stairs. He has had injections in knee without resolution of symptoms. He reports clicking, grinding and giving way. Above procedure recommended to manage symptoms. Procedure scheduled on 09/10/2022 at [facility]. REVIEW OF SYSTEMS: General: No weight loss, malaise or fevers. Neurological: No history of TIA's, stroke, STARCH TREATING ASSISTANT tumor, impaired sensorium, hemiplegia, paraplegia or quadraplegia. No neurological symptoms or problems. Respiratory: Positive for: asthma (?asthma - uses Anoro PRN, has not used in ~1 week, uses when in tete environments.) and tobacco use (former smoker). Negative for: bronchitis, COPD, current cough, home oxygen, URI < 2 weeks and obstructive sleep apnea. Cardiovascular: Positive for: hyperlipidemia and hypertension Negative for: arrhythmia, atrial fibrillation, CHF, DVT/PE, murmur/valvular heart disease, open heart surgery and valve surgery. GI: Positive for: GERD Negative for: hepatitis, irritable bowel syndrome, inflammatory bowel disease, liver disease and ETOH >2 drinks/day. : No history of dysuria, frequency or incontinence, stones or chronic kidney disease. No difficulty urinating, nocturia > 1 time per night or hematuria. Endocrine: Positive for: diabetes mellitus (A1C 7.3 in 09/2021, does not check BS at home, managed by PCP). Patient's diabetes mellitus is controlled by oral agents. Negative for: hyperthyroidism, hypothyroidism and steroid for chronic problem. Hematology: No history of bleeding or clotting disorder. Patient is not taking anti-coagulation or platelet medications. No history of hematological symptoms or problems. Oncology: No history of CA metastasis, chemo within 30 days, or radiotherapy within 90 days. No history of oncological symptoms or problems. Psych: No history of psychiatric symptoms or problems. Musculoskeletal: See HPI. Skin: Negative for lesions, rash and itching. PAST MEDICAL HISTORY Diagnosis Date Diabetes (HCC) GERD (gastroesophageal reflux disease) HTN (hypertension) Hypercholesteremia Osteoarthritis PAST SURGICAL HISTORY Procedure Laterality Date ARTHROSCOPY KNEE DIAGNOSTIC W/WO SYNOVIAL BX SPX 08/2008 Arthroscopy, knee right ARTHROSCOPY KNEE DIAGNOSTIC W/WO SYNOVIAL BX SPX 06/29/2013 Arthroscopy, knee left ARTHRP KNE CONDYLEANDPLATU MEDIALANDLAT COMPARTMENTS 08/09/2014 Knee replacement, total left BACK SURGERY HX lumbar december 2019 PAST SURGICAL HISTORY OF ~1996 cervical fusion PAST SURGICAL HISTORY OF tonsils age 3 REVISE MEDIAN N/CARPAL TUNNEL SURG Left 10/26/2020 FAMILY HISTORY Problem Relation Age of Onset Heart Father age 47- asphyxiated other (blood clot) Sister dvt No Known Problems Mother No Known Problems Brother Social History Tobacco Use Smoking status: Former Packs/day: 0.10 Years: 30.00 Pack years: 3.00 Types: Cigarettes Quit date: 07/15/2013 Years since quittin.0 Smokeless tobacco: Never Vaping Use Vaping Use: Never used Substance Use Topics Alcohol use: Not Currently Comment: not weekly Drug use: No Prior to Admission medications as of 08/16/22 0901 Medication Sig Last Dose Taking metFORMIN (GLUCOPHAGE) 500 mg tablet Take 500 mg by mouth twice daily with meals. Taking Yes umeclid (more content not included)... Normal [facility] XR Shoulder - right 2 Viewso n 08-06-2022 IMPRESSION: Degenerative changes as discussed Digital Computer Systems Analyst: ENOCH Transcribe Date/Time: Aug 06 2022 12:49P Dictated by : ADAL RODRIGUEZ DO This examination was interpreted and the report reviewed and electronically signed by: ADAL RODRIGUEZ DO on Aug 06 2022 12:51PM [facility] * * *Final Report* * * DATE OF EXAM: Aug 02 2022 12:26PM ALFREDO 5255 - XR SHOULDER 2V AP/TRUE AP RT / PROCEDURE REASON: M25.511-Right shoulder pain, unspecified chronicity * * * * Physician Interpretation * * * * EXAM(s): XR SHOULDER 2V AP/TRUE AP RT EXAM DATE/TIME: 08/02/2022 12:26 PM HISTORY: 62 years old Clinical information: Right shoulder pain, unspecified chronicity RIGHT SHOULDER PAIN True AP and outlet view TECHNIQUE: Images: XR SHOULDER 2V AP/TRUE AP RT Comparison: None. RESULT: Findings: Marked deformity of the distal end of the clavicle probably due to remote healed fracture marked narrowing of the AC joint. Marked irregularity of the greater tuberosity of the humerus. Bone density appears well-preserved. No fractures or dislocations are seen. [facility] Provider, Sunny Jiang - 08/06/2022 * * *Final Report* * * DATE OF EXAM: Aug 02 2022 12:26PM ALFREDO 5255 - XR SHOULDER 2V AP/TRUE AP RT / PROCEDURE REASON: M25.511-Right shoulder pain, unspecified chronicity * * * * Physician Interpretation * * * * EXAM(s): XR SHOULDER 2V AP/TRUE AP RT EXAM DATE/TIME: 08/02/2022 12:26 PM HISTORY: 62 years old Clinical information: Right shoulder pain, unspecified chronicity RIGHT SHOULDER PAIN True AP and outlet view TECHNIQUE: Images: XR SHOULDER 2V AP/TRUE AP RT Comparison: None. RESULT: Findings: Marked deformity of the distal end of the clavicle probably due to remote healed fracture marked narrowing of the AC joint. Marked irregularity of the greater tuberosity of the humerus. Bone density appears well-preserved. No fractures or dislocations are seen. IMPRESSION IMPRESSION: Degenerative changes as discussed Digital Computer Systems Analyst: PSCMayra Transcribe Date/Time: Aug 06 2022 12:49P Dictated by : ADAL RODRIGUEZ DO This examination was interpreted and the report reviewed and electronically signed by: ADAL RODRIGUEZ DO on Aug 06 2022 12:51PM [facility] XR Shoulder - right 2 ViewsO rdered By: [facility] Provider on 08-06-2022 [facility] XR SHOULDER 2V AP/TRUE AP RT on 08-02-2022 XR SHOULDER 2V AP/TRUE AP RT * * *Final Report* * * DATE OF EXAM: Aug 02 2022 12:26PM ALFREDO 5255 - XR SHOULDER 2V AP/TRUE AP RT / PROCEDURE REASON: M25.511-Right shoulder pain, unspecified chronicity * * * * Physician Interpretation * * * * EXAM(s): XR SHOULDER 2V AP/TRUE AP RT EXAM DATE/TIME: 08/02/2022 12:26 PM HISTORY: 62 years old Clinical information: Right shoulder pain, unspecified chronicity RIGHT SHOULDER PAIN True AP and outlet view TECHNIQUE: Images: XR SHOULDER 2V AP/TRUE AP RT Comparison: None. RESULT: Findings: Marked deformity of the distal end of the clavicle probably due to remote healed fracture marked narrowing of the AC joint. Marked irregularity of the greater tuberosity of the humerus. Bone density appears well-preserved. No fractures or dislocations are seen. IMPRESSION: Degenerative changes as discussed Digital Computer Systems Analyst: ENOCH Transcribe Date/Time: Aug 06 2022 12:49P Dictated by : ADAL RODRIGUEZ DO This examination was interpreted and the report reviewed and electronically signed by: ADAL RODRIGUEZ DO on Aug 06 2022 12:51PM EST [id number] [facility] XR Shoulder - right 2 Viewso n 08-02-2022 Radiology Study observation (narrative) [facility] XR KNEE GENERAL 4V AP BOTH/P A BOTH/LAT/MERC BILATERALon 02-22-2022 [facility] CNPNon 05-02-2020 CNPN Telephone ([id number]) ROBERTO OSBORN SR ([id number]) 1960 M Date Time Provider Department 05/02/20 [address] [address] During your visit today, we recorded the following information about you: RT Ranjan, Tech 05/02/2020 1:03 PM Signed LMOM for patient to schedule 05/02. RT Izabella, Tech 05/02/2020 4:27 PM Signed Patient called back and stated he was going to call [facility] before scheduling. Jazmin Alcantara Allergies As of Date: 05/02/2020 (No Known Allergies) Date Reviewed: 12/21/2019 Reviewed by: Shy (Rn) SHE Gonzales - Fully Assessed Reason for Visit: New Patient [172] Prescriptions as of 05/02/2020 Sig: ACETAMINOPHEN 325 MG TABLET Take 650 mg by mouth every 6 * AMLODIPINE 10 MG-BENAZEPRIL 2* Take 1 capsule by mouth once * NEXIUM 40 MG CAPSULE,DELAYED * Take 40 mg by mouth once oseas* CRESTOR 10 MG TABLET Take 10 mg by mouth once oseas* Problem List As Of Date 05/02/2020 Noted Resolved HTN (hypertension) [I10] 06/11/2013 Lateral meniscal tear [S83.289A] 07/12/2013 Medial meniscus tear [S83.249A] 07/12/2013 Knee pain [M25.569] 04/08/2014 Degenerative arthritis of knee [M17.10] 04/08/2014 GERD (gastroesophageal reflux disease) [K21.9] 07/29/2014 Knee pain, left [M25.562] 08/29/2014 Left leg weakness [R29.898] 08/29/2014 Stiffness of knee joint [M25.669] 08/29/2014 Gait abnormality [R26.9] 08/29/2014 Encounter Status:Closed by JAZMIN ALCANTARA on 05/02/20 Normal [facility] CT Spine Lumbar w/o Contrast on 04-26-2020 CT Spine Lumbar w/o Contrast Patient Name: ROBERTO OSBORN CT Exam Date/Time 04/25/2020 09:20:[address] Spine Lumbar w/o Contrast Ordering Physician NESSA LIAO BRANDY M Accession Number [id number] CPT4 Codes 93978 () Reason For Exam RIGHT LEG WEAKNESS, LUMBER STENOSIS WITH NEUROGENIC CLAUDICATION Report Reasons for examination: back pain, weakness and pain right leg, prior lumbar spine surgery. Axial scans of the lumbar spine performed from T11 to the sacrum, with sagittal reconstructions. Comparison MRI from 03/22/2020 and 01/20/2015 (the latter prior to laminectomies at L3-L4 and L4-L5) . There is normal alignment of the lumbar vertebral bodies on the sagittal reconstructions. There is no evidence of fracture or subluxation in the lumbar spine. The paravertebral soft-tissues are normal. Degenerative disc disease changes are seen at every level. IMPRESSION: 1. Status post laminectomies at L3-L4 and L4-L5 with underlying disc space degeneration --- bony detail shows no obvious bony central canal stenosis, however there appears to be considerable fibrotic changes posteriorly with posterior epidural fibrosis with absence of epidural fat planes at both levels with posterior bony ridging especially at L4-L5 2. Degenerated narrowed disc at the L5-S1 level with posterior ridging without significant stenosis of the bony canal 3. Degenerated disc at L2-L3 with posterior bulging with mild posterior bulging L1-L2 Report Dictated on Final Dictating Physician: MD CORNEJO WILLIAM Signed Date and Time: 04/26/2020 9:57 am Signed by: MD CORNEJO WILLIAM Transcribed Date and Time: 04/26/2020 9:58 Normal [facility] NM BONE SCAN WHOLE BODYon Patient Name: ROBERTO OSBORN ---Nuc Med--- Exam Date/Time 04/25/2020 13:03:31 EDT Exam NM Bone Imaging Whole Body Ordering Physician NESSA LIAO BRANDY M Accession Number [id number] CPT4 Codes 28065 () Reason For Exam low back pain Report BONE SCINTIGRAPHY (WHOLE BODY) CLINICAL INDICATION: Low back pain Delayed whole body imaging was performed in the standard anterior and posterior projections following the intravenous administration of 23 mCi of technetium-99m MDP. Additional spot views of the skull, pelvis, and ribs were also obtained. COMPARISON: MRI lumbar spine dated 03/22/2020 FINDINGS: No evidence of osseous metastatic disease is identified. A left total knee arthroplasty is noted, which is unremarkable in appearance. There is mildly increased, symmetric uptake within the shoulders, sternoclavicular joints, wrists, hips, right knee, bilateral ankles, and bilateral feet. These changes are likely degenerative in etiology. There is mild, diffuse tracer uptake within the lumbar spine which appears to correspond to degenerative and postoperative changes. There is no moderate or intense tracer uptake seen to suggest occult fracture or other acute bony process within the lumbar spine. IMPRESSION: No evidence of osseous metastatic disease. Mild, likely degenerative changes of the spine and the joints as above. Report Dictated on --- Final --- Dictating Physician: MD LEON JONATHAN R Signed Date and Time: 04/25/2020 1:52 pm Signed by: MD LEON JONATHAN R Transcribed Date and Time: 04/25/2020 1:54 [place], [place] Tim, [facility] Incoming Radiology Results From [facility] - 04/25/2020 1:54 PM EDT Patient Name: ROBERTO OSBORN ---Nuc Med--- Exam Date/Time 04/25/2020 13:03:31 EDT Exam NM Bone Imaging Whole Body Ordering Physician NESSA LIAO BRANDY M Accession Number [id number] CPT4 Codes 90354 () Reason For Exam low back pain Report BONE SCINTIGRAPHY (WHOLE BODY) CLINICAL INDICATION: Low back pain Delayed whole body imaging was performed in the standard anterior and posterior projections following the intravenous administration of 23 mCi of technetium-99m MDP. Additional spot views of the skull, pelvis, and ribs were also obtained. COMPARISON: MRI lumbar spine dated 03/22/2020 FINDINGS: No evidence of osseous metastatic disease is identified. A left total knee arthroplasty is noted, which is unremarkable in appearance. There is mildly increased, symmetric uptake within the shoulders, sternoclavicular joints, wrists, hips, right knee, bilateral ankles, and bilateral feet. These changes are likely degenerative in etiology. There is mild, diffuse tracer uptake within the lumbar spine which appears to correspond to degenerative and postoperative changes. There is no moderate or intense tracer uptake seen to suggest occult fracture or other acute bony process within the lumbar spine. IMPRESSION: No evidence of osseous metastatic disease. Mild, likely degenerative changes of the spine and the joints as above. Report Dictated on --- Final --- Dictating Physician: MD LEON JONATHAN R Signed Date and Time: 04/25/2020 1:52 pm Signed by: MD LEON JONATHAN R Transcribed Date and Time: 04/25/2020 1:54 [place], [place] NM Bone Imaging Whole Bodyon 04-25-2020 NM Bone Imaging Whole Body Patient Name: ROBERTO OSBORN Nuc Med Exam Date/Time 04/25/2020 13:03:31 EDT Exam NM Bone Imaging Whole Body Ordering Physician NESSA LIAO BRANDY M Accession Number [id number] CPT4 Codes 88310 () Reason For Exam low back pain Report BONE SCINTIGRAPHY (WHOLE BODY) CLINICAL INDICATION: Low back pain Delayed whole body imaging was performed in the standard anterior and posterior projections following the intravenous administration of 23 mCi of technetium-99m MDP. Additional spot views of the skull, pelvis, and ribs were also obtained. COMPARISON: MRI lumbar spine dated 03/22/2020 FINDINGS: No evidence of osseous metastatic disease is identified. A left total knee arthroplasty is noted, which is unremarkable in appearance. There is mildly increased, symmetric uptake within the shoulders, sternoclavicular joints, wrists, hips, right knee, bilateral ankles, and bilateral feet. These changes are likely degenerative in etiology. There is mild, diffuse tracer uptake within the lumbar spine which appears to correspond to degenerative and postoperative changes. There is no moderate or intense tracer uptake seen to suggest occult fracture or other acute bony process within the lumbar spine. IMPRESSION: No evidence of osseous metastatic disease. Mild, likely degenerative changes of the spine and the joints as above. Report Dictated on Final Dictating Physician: MD LEON JONATHAN R Signed Date and Time: 04/25/2020 1:52 pm Signed by: MD LEON JONATHAN R Transcribed Date and Time: 04/25/2020 1:54 Normal [facility] US Lower Extremity Venous Ri danii 03-27-2020 [facility] -- Right Lower Extremity Venous Duplex Report Ordering Physician: Awilda Vivas [employer] Office Manager: Steph Abraham RDMS, T Interpreting Physician: Marti Valles -- Location: [facility] -- Indications: Pain right thigh. -- Preliminary result was reported to office- via fax , by Steph Abraham RVT , on 03/27/2020 , at 04:37 PM. -- Conclusions 1. There is no evidence of acute deep or superficial venous thrombosis noted in the right lower extremity. 2. The left common femoral vein fully compresses and demonstrates normal venous flow. -- History: Entire right lower extremity discomfort. Back surgery on 12/24/2019 pain in rt thigh for about one month. Risk factors: Former tobacco use. Hypertension. Diabetes mellitus. Obese. -- Study data: Right lower extremity venous duplex evaluation. Right lateral evaluation with grayscale 2D imaging, color Doppler imaging, and spectral Doppler analysis. Location: Vascular laboratory. Procedure: A vascular evaluation was performed with the patient in the supine position. Images were obtained using a [employer] i700 SIRS-Labio vascular ultrasound machine. -- Venous flow and imaging: + ---+-------+ -+ +Location +Overall+Properties + + ---+-------+ -+ +R CFV +Patent +Normal phasicity; spontaneous; + + + +normal augmentation; compressible + + ---+-------+ -+ +R saphenofemoral junction+Patent +Compressible + + ---+-------+ -+ +R profunda femoral +Patent +Normal phasicity; spontaneous; + + + +normal augmentation + + ---+-------+ -+ +R FV - prox. +Patent +Compressible + + ---+-------+ -+ +R FV - mid +Patent +Normal phasicity; spontaneous; + + + +normal augmentation; compressible + + ---+-------+ -+ +R FV - distal +Patent +Compressible + + ---+-------+ -+ +R popliteal +Patent +Normal phasicity; spontaneous; + + + +normal augmentation; compressible + + ---+-------+ -+ +R gastrocnemius +Patent +Compressible + + ---+-------+ -+ +R PTV +Patent +Compressible + + ---+-------+ -+ +R peroneal +Patent +Compressible + + ---+-------+ -+ +R soleal +Patent +Compressible + + ---+-------+ -+ +R GSV +Patent +Compressible + + ---+-------+ -+ +R SSV +Patent + + + ---+-------+ -+ +L CFV +Patent +Normal phasicity; spontaneous; + + + +normal augmentation; compressible + + ---+-------+ -+ Prepared and electronically signed by Marti Valles 03/27/2020 17:43 [facility]- [place], [place] Tim, [facility] Cardiology Results From [facility] - 03/27/2020 5:44 PM EDT [facility] -- Right Lower Extremity Venous Duplex Report Ordering Physician: Awilda Vivas [employer] Office Manager: Steph Abraham RDMS RVT Interpreting Physician: Marti Valles -- Location: [facility] -- Indications: Pain right thigh. -- Preliminary result was reported to office- via fax , by Steph Abraham RVSawyer , on 03/27/2020 , at 04:37 PM. -- Conclusions 1. There is no evidence of acute deep or superficial venous thrombosis noted in the right lower extremity. 2. The left common femoral vein fully compresses and demonstrates normal venous flow. -- History: Entire right lower extremity discomfort. Back surgery on 12/24/2019 pain in rt thigh for about one month. Risk factors: Former tobacco use. Hypertension. Diabetes mellitus. Obese. -- Study data: Right lower extremity venous duplex evaluation. Right lateral evaluation with grayscale 2D imaging, color Doppler imaging, and spectral Doppler analysis. Location: Vascular laboratory. Procedure: A vascular evaluation was performed with the patient in the supine position. Images were obtained using a [employer] i700 Aplio vascular ultrasound machine. -- Venous flow and imaging: + ---+-------+ -+ +Location +Overall+Properties + + ---+-------+ -+ +R CFV +Patent +Normal phasicity; spontaneous; + + + +normal augmentation; compressible + + ---+-------+ -+ +R saphenofemoral junction+Patent +Compressible + + ---+-------+ -+ +R profunda femoral +Patent +Normal phasicity; spontaneous; + + + +normal augmentation + + ---+-------+ -+ +R FV - prox. +Patent +Compressible + + ---+-------+ -+ +R FV - mid +Patent +Normal phasicity; spontaneous; + + + +normal augmentation; compressible + + ---+-------+ -+ +R FV - distal +Patent +Compressible + + ---+-------+ -+ +R popliteal +Patent +Normal phasicity; spontaneous; + + + +normal augmentation; compressible + + ---+-------+ -+ +R gastrocnemius +Patent +Compressible + + ---+-------+ -+ +R PTV +Patent +Compressible + + ---+-------+ -+ +R peroneal +Patent +Compressible + + ---+-------+ -+ +R soleal +Patent +Compressible + + ---+-------+ -+ +R GSV +Patent +Compressible + + ---+-------+ -+ +R SSV +Patent + + + ---+-------+ -+ +L CFV +Patent +Normal phasicity; spontaneous; + + + +normal augmentation; compressible + + ---+-------+ -+ Prepared and electronically signed by Marti Valles 03/27/2020 17:43 [place] VL Venous Duplex US Lower Ex t [place] 03-27-2020 VL Venous Duplex US Lower Ext Right Patient Name: ROBERTO OSBORN Ultrasound Exam Date/Time 03/27/2020 16:45:00 EDT Exam VL Venous Duplex US Lower Ext Right Ordering Physician AWILDA VIVAS Accession Number [id number] CPT4 Codes 41801 () Reason For Exam pain of thigh of right lower extremity Report [facility] -- Right Lower Extremity Venous Duplex Report Ordering Physician: Awilda Vivas School Office Manager: Steph Abraham RDNJ, T Interpreting Physician: Marti Valles -- Location: [facility] -- Indications: Pain right thigh. -- Preliminary result was reported to office- via fax , by Steph Abraham RVT , on 03/27/2020 , at 04:37 PM. -- Conclusions 1. There is no evidence of acute deep or superficial venous thrombosis noted in the right lower extremity. 2. The left common femoral vein fully compresses and demonstrates normal venous flow. -- History: Entire right lower extremity discomfort. Back surgery on 12/24/2019 pain in rt thigh for about one month. Risk factors: Former tobacco use. Hypertension. Diabetes mellitus. Obese. -- Study data: Right lower extremity venous duplex evaluation. Right lateral evaluation with grayscale 2D imaging, color Doppler imaging, and spectral Doppler analysis. Location: Vascular laboratory. Procedure: A vascular evaluation was performed with the patient in the supine position. Images were obtained using a [employer] i700 PopJax vascular ultrasound machine. -- Venous flow and imaging: + ---+-------+ -+ +Location +Overall+Properties + + ---+-------+ -+ +R CFV +Patent +Normal phasicity; spontaneous; + + + +normal augmentation; compressible + + ---+-------+ -+ +R saphenofemoral junction+Patent +Compressible + + ---+-------+ -+ +R profunda femoral +Patent +Normal phasicity; spontaneous; + + + +normal augmentation + + ---+-------+ -+ +R FV - prox. +Patent +Compressible + + ---+-------+ -+ +R FV - mid +Patent +Normal phasicity; spontaneous; + + + +normal augmentation; compressible + + ---+-------+ -+ +R FV - distal +Patent +Compressible + + ---+-------+ -+ +R popliteal +Patent +Normal phasicity; spontaneous; + + + +normal augmentation; compressible + + ---+-------+ -+ +R gastrocnemius +Patent +Compressible + + ---+-------+ -+ +R PTV +Patent +Compressible + + ---+-------+ -+ +R peroneal +Patent +Compressible + + ---+-------+ -+ +R soleal +Patent +Compressible + + ---+-------+ -+ +R GSV +Patent +Compressible + + ---+-------+ -+ +R SSV +Patent + + + ---+-------+ -+ +L CFV +Patent +Normal phasicity; spontaneous; + + + +normal augmentation; compressible + + ---+-------+ -+ Prepared and electronically signed by Marti Valles 03/27/2020 17:43 Final Dictated: 03/27/2020 5:44 pm Dictating Physician: MARTI VALLES Signed Date and Time: 03/27/2020 5:43 pm Signed by: MARTI VALLES [facility] MRI Spine Lumbar w/ + w/o Co ntraston 03-24-2020 MRI Spine Lumbar w/ + w/o Contrast Patient Name: ROBERTO OSBORN MRI Exam Date/Time 03/22/2020 13:59:28 EDT Exam MRI Spine Lumbar w/ + w/o Contrast Ordering Physician NESSA LIAO BRANDY M Accession Number [id number] CPT4 Codes 44302 () Reason For Exam stenosis with neurogenic claudication Report EXAM TYPE: MRI Spine Lumbar w/ + w/o Contrast EXAM DATE AND TIME: 03/22/2020 1:59 PM EDT INDICATION: Stenosis with neurogenic claudication COMPARISON: MRI lumbar spine on 01/20/2015 TECHNIQUE: MR imaging of the lumbar spine was performed with and without intravenous contrast (10 ml of Gadavist). FINDINGS: The last fully formed disc is considered L5-S1. There is posterior decompression with laminectomies at L3-L4 and L4-L5. There is associated posterior paraspinal muscular atrophy and scarring as well as scarring within subcutaneous tissues at these levels. There is a small fluid collection at the L3-L4 laminectomy bed measuring 1.4 x 0.8 x 1.2 cm. This likely represents a postoperative seroma, however infectious etiologies can have similar appearance in the appropriate clinical setting. There is normal lumbar lordosis. No subluxation. Vertebral body heights are maintained. Multilevel degenerative endplate changes are present throughout the lumbar spine. Type I degenerative Modic endplate changes are present at L3-L4 and L4-L5. Multilevel disc desiccation. Loss of disc at L5-S1. The conus terminates at the L1-L2 level. The distal cord is normal in size and signal characteristics. There is normal distribution of the nerve roots of the cauda equina. No abnormal cord or intrathecal enhancement. T12-L1: No disc herniation. Mild bilateral facet hypertrophy. No spinal canal or foraminal narrowing. L1-L2: Mild disc osteophyte complex. Mild bilateral facet hypertrophy. No spinal canal or foraminal narrowing. L2-L3: Mild disc osteophyte complex. Mild bilateral facet hypertrophy. Congenitally shortened pedicles. Mild to moderate spinal canal narrowing. Mild bilateral foraminal narrowing. L3-L4: Mild disc osteophyte complex. Moderate bilateral facet hypertrophy. Congenitally shortened pedicles. Mild to moderate spinal canal narrowing. Moderate bilateral foraminal narrowing. L4-L5: Mild disc osteophyte complex. Moderate bilateral facet hypertrophy. Narrowing of lateral recesses. Congenitally shortened pedicles. Severe spinal canal narrowing at the mid L4 level with moderate narrowing at the L4-L5 level. Moderate bilateral foraminal narrowing. Findings have progressed since prior. L5-S1: Mild disc osteophyte complex. Moderate bilateral facet hypertrophy. Severe bilateral foraminal narrowing. Severe spinal canal narrowing at the mid L5 level with mild spinal canal narrowing at L5-S1. Findings have progressed since prior. IMPRESSION: 1. Surgical changes of posterior decompression at L3-L4 and L4-L5. 2. Severe spinal canal narrowing at the mid L4 and mid L5 vertebral body levels. 3. Congenital spinal stenosis contributes to spinal canal narrowing throughout the lumbar spine. 4. Severe bilateral foraminal narrowing at L5-S1. 5. Otherwise multilevel degenerative changes of the lumbar spine as described. Report Dictated on Final Dictated: 03/24/2020 9:24 am Dictating Physician: MD MELENDEZ NEIL Signed Date and Time: 03/24/2020 9:36 am Signed by: MD MELENDEZ NEIL Transcribed Date and Time: 03/24/2020 9:24 Normal [facility] CBC Auto Differentialon 04- Absolute Baso # 0.1 10*3/uL 0 - 0.2 10*3/uL [facility], [place] Comment on above: Test Performed by [facility], [address] [place] [address], [place] [address] Absolute Neut # 3.7 10*3/uL 1.8 - 7 10*3/uL [place], [place] Comment on above: Test Performed by [facility], [address] [place] [id number] Interpretation and review of laboratory results Abnormal [place], [place] Test Performed by [facility], [address] [place] [address] [place] CT HEAD WO CONTRASTon 2019 Patient Name: ROBERTO OSBORN ---CT--- Exam Date/Time 11/27/2019 04:15:[address] Head or Brain w/o Contrast Ordering Physician MD KRISTIAN, TRAY Costello Accession Number [id number] CPT4 Codes 87039 () Reason For Exam left hand numbness Report Reasons for examination: Left hand numbness. Axial unenhanced images of the brain were obtained. There are normal sized, midline cerebral ventricles. There is no evidence of mass lesion, hemorrhage, nor brain edema. There is no evidence of acute infarction. There is no hydrocephalus, shift, or herniation. The brainstem and cerebellum are normal. There are no epidural or subdural collections. On the bone window images, there are no significant abnormalities, and the paranasal sinuses and mastoids are clear. IMPRESSION: Negative CT scan of the brain for age. No acute intracranial abnormalities. Report Dictated on Workstation: [id number] --- Final --- Dictated: 11/27/2019 4:25 am Dictating Physician: MD CORNEJO WILLIAM Signed Date and Time: 11/27/2019 4:26 am Signed by: MD CORNEJO WILLIAM Transcribed Date and Time: 11/27/2019 4:25 [place], [place] Tim, [facility] Incoming Radiology Results From [facility] - 11/27/2019 4:28 AM EDT Patient Name: ROBERTO OSBORN ---CT--- Exam Date/Time 11/27/2019 04:15:[address] Head or Brain w/o Contrast Ordering Physician MD TOWNSEND MARK D Accession Number [id number] CPT4 Codes 66042 () Reason For Exam left hand numbness Report Reasons for examination: Left hand numbness. Axial unenhanced images of the brain were obtained. There are normal sized, midline cerebral ventricles. There is no evidence of mass lesion, hemorrhage, nor brain edema. There is no evidence of acute infarction. There is no hydrocephalus, shift, or herniation. The brainstem and cerebellum are normal. There are no epidural or subdural collections. On the bone window images, there are no significant abnormalities, and the paranasal sinuses and mastoids are clear. IMPRESSION: Negative CT scan of the brain for age. No acute intracranial abnormalities. Report Dictated on Workstation: [id number] --- Final --- Dictated: 11/27/2019 4:25 am Dictating Physician: MD CORNEJO WILLIAM Signed Date and Time: 11/27/2019 4:26 am Signed by: MD CORNEJO WILLIAM Transcribed Date and Time: 11/27/2019 4:25 [place] CT Head or Brain w/o Contras ton 11-27-2019 CT Head or Brain w/o Contrast Patient Name: ROBERTO OSBORN CT Exam Date/Time 11/27/2019 04:15:[address] Head or Brain w/o Contrast Ordering Physician MD KRISTIAN, TRAY Costello Accession Number [id number] CPT4 Codes 13310 () Reason For Exam left hand numbness Report Reasons for examination: Left hand numbness. Axial unenhanced images of the brain were obtained. There are normal sized, midline cerebral ventricles. There is no evidence of mass lesion, hemorrhage, nor brain edema. There is no evidence of acute infarction. There is no hydrocephalus, shift, or herniation. The brainstem and cerebellum are normal. There are no epidural or subdural collections. On the bone window images, there are no significant abnormalities, and the paranasal sinuses and mastoids are clear. IMPRESSION: Negative CT scan of the brain for age. No acute intracranial abnormalities. Report Dictated on Workstation: [id number] Final Dictated: 11/27/2019 4:25 am Dictating Physician: MD CORNEJO WILLIAM Signed Date and Time: 11/27/2019 4:26 am Signed by: MD CORNEJO WILLIAM Transcribed Date and Time: 11/27/2019 4:25 [facility] Comp Panel with Mg Reflexon 11-27-2019 ALP [Catalytic activity/Vol] 67 U/L Normal 38-126 [facility] Comment on above: Performed By: #### H EMDHugo CMP3M, TROPN #### [place] [id number] [place] [address] ALT [Catalytic activity/Vol] 20 U/L Normal 0-49 [facility] Comment on above: Result Comment: The ALT test is performed by an updated assay method. Please note that the reference intervals have been changed and are now sex specific. Performed By: #### H EMDF, CMP3M, TROPN #### [address] [place] [address] AST [Catalytic activity/Vol] 27 U/L Normal 15-46 [facility] Comment on above: Performed By: #### H EMDF, CMP3M, TROPN #### [address] [place] [address] Calcium [Mass/Vol] 8.7 mg/dL Normal 8.4-10.4 [facility] Comment on above: Performed By: #### H EMDF, CMP3M, TROPN #### [address] [place] [address] Glucose [Mass/Vol] 147 mg/dL High 70-100 [facility] Comment on above: Performed By: #### H EMDF, CMP3M, TROPN #### [address] [place] [address] Urea nitrogen [Mass/Vol] 6 mg/dL Low 7-20 [facility] Comment on above: Performed By: #### H EMDF, CMP3M, TROPN #### [address] [place] [address] Anion gap [Moles/Vol] 9 Normal [facility] Comment on above: Performed By: #### H EMDF, CMP3M, TROPN #### [place] [id number] [place] [address] Bilirubin [Mass/Vol] 0.6 mg/dL Normal 0.2-1.3 [facility] Comment on above: Performed By: #### H EMDF, CMP3M, TROPN #### [address] [address] CO2 [Moles/Vol] 25 mmol/L Normal 22-30 [facility] Comment on above: Performed By: #### H MISTY [place]3M, TROPN #### [address] [address] Creatinine [Mass/Vol] 0.57 mg/dL Normal 0.52-1.25 [facility] Comment on above: Performed By: #### H MISTY [place]3M, TROPN #### [address] [address] GFR/1.73 sq M predicted among blacks MDRD (S/P/Bld) [Vol rate/Area] mL/min/{1.73_m2} Normal >60 [facility] Comment on above: Performed By: #### H MISTY [place]3M, TROPN #### [address] [address] GFR/1.73 sq M predicted among non-blacks MDRD (S/P/Bld) [Vol rate/Area] mL/min/{1.73_m2} Normal >60 [facility] Comment on above: Result Comment: Sour ce- MDRD equation with creatinine calibration to IDMS(NKDEP) eGFR not recommended for drug dose adjustment Performed By: #### H MISTY [place]3M, TROPN #### [address] [address] Protein [Mass/Vol] 6.8 g/dL Normal 6.3-8.2 [facility] Comment on above: Performed By: #### H GE CMP3M, TROPN #### [address] [address] Albumin [Mass/Vol] 4.0 g/dL Normal 3.5-5.0 [facility] Comment on above: Performed By: #### H GE CMP3M, TROPN #### [address] [address] Chloride [Moles/Vol] 102 mmol/L Normal 98-107 [facility] Comment on above: Performed By: #### H EMDF, CMP3M, TROPN #### [address] [address] Potassium [Moles/Vol] 3.7 mmol/L Normal 3.5-5.1 [place], [place] Comment on above: Test Performed by [facility], [address] [place] [address] Performed By: #### H EMDF, CMP3M, TROPN #### [address] [address] Sodium [Moles/Vol] 136 mmol/L Normal 135-145 [place] Comment on above: Performed By: #### H EMDF, CMP3M, TROPN #### [address] [address] Comprehensive Metabolic Pane l w/ Reflex to MGon 11-27-2019 Albumin [Mass/Vol] 4.0 g/dL 3.5 - 5 g/dL [place], [place] Comment on above: Test Performed by [facility], [address] [place] [address] ALP [Catalytic activity/Vol] 67 U/L 38 - 126 U/L [place] Comment on above: Test Performed by [facility], [address] [place] [address] ALT [Catalytic activity/Vol] 20 U/L 0 - 49 U/L [place] Comment on above: Test Performed by [facility], [address] [place] [address] The ALT test is performed by an updated assay method. Please note that the reference intervals have been changed and are now sex specific. Anion gap [Moles/Vol] 9 mmol/L [place], [place] Comment on above: Test Performed by [facility], [address] [place] [address] AST [Catalytic activity/Vol] 27 U/L 15 - 46 U/L [place] Comment on above: Test Performed by [facility], [address] [place] [address] Bilirubin Ql (U) 0.6 mg/dL 0.2 - 1.3 mg/dL [place] Comment on above: Test Performed by [address] [address] Calcium [Mass/Vol] 8.7 mg/dL 8.4 - 10. 4 mg/dL [place] Comment on above: Test Performed by [facility], [address] [place] [address] Chloride [Moles/Vol] 102 mmol/L 98 - 10 7 mmol/L [place] Comment on above: Test Performed by [facility], [address] [place] [address] CO2 [Moles/Vol] 25 mmol/L 22 - 30 mmol/L [place] Comment on above: Test Performed by [facility], [address] [place] [address] Creatinine [Mass/Vol] 0.57 mg/dL 0.52 - 1.25 mg/dL [place], [place] Comment on above: Test Performed by [facility], [address] [place] [address] EGFR IF NonAfrican [place] >60.0 >60 mL/min [place], [place] Comment on above: Test Performed by [facility], [address] [place] [address] Source- MDRD equation with creatinine calibration to IDMS(NKDEP) eGFR not recommended for drug dose adjustment GFR/1.73 sq M predicted among blacks MDRD (S/P/Bld) [Vol rate/Area] mL/min/{1.73_m2} >60 mL/min [place] Comment on above: Test Performed by [facility], [address] [place] [address] Glucose [Mass/Vol] 147 mg/dL High 70 - 100 mg/dL [place] Comment on above: Test Performed by [facility], [address] [place] [address] Interpretation and review of laboratory results Abnormal [place] Protein [Mass/Vol] 6.8 g/dL 6.3 - 8.2 g/dL [place] Comment on above: Test Performed by [facility], [address] [place] [address] Urea nitrogen [Mass/Vol] 6 mg/dL Low 7 - 20 mg/dL [place] Comment on above: Test Performed by [facility], [address] [place] [address] Test Performed by [facility], [address] [place] [address] [place] Hemogram w/ Autodiffon 11-26 Abs Baso Cnt 0.1 10*3/uL Normal 0.0-0.2 [facility] Comment on above: Performed By: #### H EMDF, CMP3M, TROPN #### [address] [address] Abs Neutrophile Cnt 3.7 10*3/uL Normal 1.8-7.0 [facility] Comment on above: Performed By: #### H EMDF, CMP3M, TROPN #### [address] [address] Basophils/100 WBC (Bld) 0.7 % Normal 0.0-2.0 [place] Comment on above: Test Performed by [facility], [address] [place] [address] Performed By: #### H EMDF, CMP3M, TROPN #### [address] [address] Eosinophils (Bld) [#/Vol] 0.2 10*3/uL Normal 0.0-0.5 [place], [place] Comment on above: Test Performed by [facility], [address] [place] [id number] Performed By: #### H EMDF, CMP3M, TROPN #### [address] [address] Eosinophils/100 WBC (Bld) 3.2 % Normal 1.0-6.0 [place], [place] Comment on above: Test Performed by [facility], [address] [place] [id number] Performed By: #### H EMDF, CMP3M, TROPN #### [address] [address] Erythrocyte distribution width (RBC) [Ratio] 13.3 % Normal 11.5-14.5 [place] Comment on above: Test Performed by [facility], [address] [place] [address], [place] [address] Performed By: #### H EMDF, CMP3M, TROPN #### [address] [place] [address] Granulocytes/100 WBC (Bld) 48.4 % Normal 40.0-80.0 [place] Comment on above: Test Performed by [facility], [address] [place] [address], [place] [address] Performed By: #### H EMDF, CMP3M, TROPN #### [address] [place] [address] Hematocrit (Bld) [Volume fraction] 43.8 % Normal 40.0-52.0 [place] Comment on above: Test Performed by [facility], [address] [place] [address], [place] [address] Performed By: #### H EMDF, CMP3M, TROPN #### [address] [address] Hemoglobin (Bld) [Mass/Vol] 14.4 g/dL Normal 13.0-18.0 [place] Comment on above: Test Performed by [facility], [address] [place] [address] Performed By: #### H EMDF, CMP3M, TROPN #### [address] [place] [address] Lymphocytes (Bld) [#/Vol] 2.7 10*3/uL Normal 1.0-4.3 [place] Comment on above: Test Performed by [facility], [address] [place] [address], [place] [address] Performed By: #### H EMDF, CMP3M, TROPN #### [address] [place] [address] Lymphocytes/100 WBC (Bld) 35.2 % Normal 20.0-40.0 [place] Comment on above: Test Performed by [facility], [address] [place] [address] Performed By: #### H EMDF, CMP3M, TROPN #### [address] [place] [address] MCH (RBC) [Entitic mass] 29.1 pg Normal 26.0-34.0 [place] Comment on above: Test Performed by [facility], [address] [place] [address] Performed By: #### H EMDF, CMP3M, TROPN #### [address] [address] MCHC (RBC) [Mass/Vol] 33.0 % Normal 32.0-36.0 [place] Comment on above: Test Performed by [facility], [address] [place] [address] Performed By: #### H EMDF, CMP3M, TROPN #### [address] [address] MCV (RBC) [Entitic vol] 88.2 fL Normal 80.0-98.0 [place] Comment on above: Test Performed by [facility], [address] [place] [address] Performed By: #### H EMDF, CMP3M, TROPN #### [address] [address] Monocytes (Bld) [#/Vol] 1.0 10*3/uL High 0.0-0.8 [place] Comment on above: Test Performed by [facility], [address] [place] [address] Performed By: #### H EMDF, CMP3M, TROPN #### [address] [address] Monocytes/100 WBC (Bld) 12.5 % High 2.0-10.0 [place] Comment on above: Test Performed by [facility], [address] [place] [address] Performed By: #### H EMDF, CMP3M, TROPN #### [address] [address] Platelet mean volume (Bld) [Entitic vol] 6.9 fL Low 7.4-10.4 [place] Comment on above: Test Performed by [facility], [address] [place] [address] Performed By: #### H EMDF, CMP3M, TROPN #### [address] [address] Platelets (Bld) [#/Vol] 355 10*3/uL Normal 140-440 [place] Comment on above: Test Performed by [facility], [address] [place] [address] Performed By: #### H EMDF, CMP3M, TROPN #### [address] [address] RBC (Bld) [#/Vol] 4.97 10*6/uL Normal 4.40-5.90 [place] Comment on above: Test Performed by [facility], [address] [place] [address] Performed By: #### H EMDF, CMP3M, TROPN #### [address] [address] WBC (Bld) [#/Vol] 7.7 10*3/uL Normal 3.6-10.7 [place] Comment on above: Performed By: #### H EMDF, CMP3M, TROPN #### [address] [address] Troponinon 11-27-2019 Troponin I.cardiac [Mass/Vol] ng/mL 0 - 0.034 ng/mL [place] Comment on above: . Test Performed by [facility], [address] [place] [address] [place] Troponin Ion 11-27-2019 Troponin I.cardiac [Mass/Vol] ng/mL Normal 0.000-0.034 [facility] Comment on above: Result Comment: . Performed By: #### H EMDF, CMP3M, TROPN #### [address] [address] No Panel Information [facility] Vital Signs Date Time Vital Sign Value Performing Clinician Facility 09-06-2024 11:22-0500 Diastolic blood pressure 72 mm[Hg] Timothy Correa MD Work Phone: [facility] 09-06-2024 11:22-0500 Systolic blood pressure 126 mm[Hg] Timothy Correa MD Work Phone: [facility] 09-06-2024 11:17-0500 Body height 180.3 cm Timothy Correa MD Work Phone: [facility] 09-06-2024 11:17-0500 Body mass index (BMI) [Ratio] 34.61 kg/m2 Timothy Correa MD Work Phone: [facility] 09-06-2024 11:17-0500 Body temperature 98.2 [degF] Timothy Correa MD Work Phone: [facility] 09-06-2024 11:17-0500 Body weight 112.55 kg Timothy Correa MD Work Phone: [facility] 09-06-2024 11:17-0500 Heart rate 76 /min Timothy Correa MD Work Phone: [facility] 09-06-2024 11:17-0500 Respiratory rate 16 /min Timothy Correa MD Work Phone: [facility] 09-06-2024 11:17-0500 SaO2% (BldA) [Mass fraction] 97 % Timothy Correa MD Work Phone: [facility] 12-16-2023 08:17-0400 Body temperature 98.01 [degF] Timothy Correa MD Work Phone: [facility] 12-16-2023 08:17-0400 Diastolic blood pressure 75 mm[Hg] Timothy Correa MD Work Phone: [facility] 12-16-2023 08:17-0400 Heart rate 100 /min Timothy Correa MD Work Phone: [facility] 12-16-2023 08:17-0400 Respiratory rate 16 /min Timothy Correa MD Work Phone: [facility] 12-16-2023 08:17-0400 Systolic blood pressure 135 mm[Hg] Timothy Correa MD Work Phone: [facility] 10-06-2023 08:50-0500 Body temperature 98.01 [degF] Timothy Correa MD Other Phone: [facility] 10-06-2023 08:50-0500 Diastolic blood pressure 80 mm[Hg] Timothy Correa MD Other Phone: [facility] 10-06-2023 08:50-0500 Heart rate 80 /min Timothy Correa MD Other Phone: [facility] 10-06-2023 08:50-0500 Respiratory rate 16 /min Timothy Correa MD Other Phone: [facility] 10-06-2023 08:50-0500 Systolic blood pressure 152 mm[Hg] Timothy Correa MD Other Phone: [facility] 04-24-2023 13:14-0400 Body temperature 98.8 [degF] Timothy Correa MD Work Phone: [facility] 04-24-2023 13:14-0400 Diastolic blood pressure 74 mm[Hg] Timothy Correa MD Work Phone: [facility] 04-24-2023 13:14-0400 Heart rate 88 /min Timothy Correa MD Work Phone: [facility] 04-24-2023 13:14-0400 Respiratory rate 16 /min Timothy Correa MD Work Phone: [facility] 04-24-2023 13:14-0400 SaO2% (BldA) [Mass fraction] 97 % Timothy Correa MD Work Phone: [facility] 04-24-2023 13:14-0400 Systolic blood pressure 125 mm[Hg] Timothy Correa MD Work Phone: [facility] 10-03-2022 08:26-0500 Body temperature 98.01 [degF] Timothy Correa MD Work Phone: [facility] 10-03-2022 08:26-0500 Diastolic blood pressure 61 mm[Hg] Timothy Correa MD Work Phone: [facility] 10-03-2022 08:26-0500 Heart rate 96 /min Timothy Correa MD Work Phone: [facility] 10-03-2022 08:26-0500 Respiratory rate 16 /min Timothy Correa MD Work Phone: [facility] 10-03-2022 08:26-0500 SaO2% (BldA) [Mass fraction] 96 % Timothy Correa MD Work Phone: [facility] 10-03-2022 08:26-0500 Systolic blood pressure 119 mm[Hg] Timothy Correa MD Work Phone: [facility] 09-30-2022 09:09-0500 Body temperature 97.59 [degF] Kirill Noe PT Work Phone: [facility] 09-30-2022 09:09-0500 Diastolic blood pressure 70 mm[Hg] Kirill Noe PT Work Phone: [facility] 09-30-2022 09:09-0500 Heart rate 93 /min Kirill Noe PT Work Phone: [facility] 09-30-2022 09:09-0500 SaO2% (BldA) [Mass fraction] 97 % Kirill Noe PT Work Phone: [facility] 09-30-2022 09:09-0500 Systolic blood pressure 130 mm[Hg] Kirill Noe PT Work Phone: [facility] 09-26-2022 10:19-0500 Body temperature 98.8 [degF] Kirill Noe PT Work Phone: [facility] 09-26-2022 10:19-0500 Diastolic blood pressure 80 mm[Hg] Kirill Noe PT Work Phone: [facility] 09-26-2022 10:19-0500 Heart rate 88 /min Kirill Noe PT Work Phone: [facility] 09-26-2022 10:19-0500 SaO2% (BldA) [Mass fraction] 97 % Kirill Susjunoewicz PT Work Phone: [facility] 09-26-2022 10:19-0500 Systolic blood pressure 136 mm[Hg] Kirill Suskiewicz PT Work Phone: [facility] 09-23-2022 08:59-0500 Body temperature 98.1 [degF] Kirill Suskiewicz PT Work Phone: [facility] 09-23-2022 08:59-0500 Diastolic blood pressure 70 mm[Hg] Kirill Suskiewicz PT Work Phone: [facility] 09-23-2022 08:59-0500 Heart rate 77 /min Kirill Suskiewicz PT Work Phone: [facility] 09-23-2022 08:59-0500 SaO2% (BldA) [Mass fraction] 98 % Kirill Suskiewicz PT Work Phone: [facility] 09-23-2022 08:59-0500 Systolic blood pressure 138 mm[Hg] Kirill Suskiewicz PT Work Phone: [facility] 09-20-2022 08:59-0500 Body temperature 98.49 [degF] Kirill Suskiewicz PT Work Phone: [facility] 09-20-2022 08:59-0500 Diastolic blood pressure 62 mm[Hg] Kirill Suskiewicz PT Work Phone: [facility] 09-20-2022 08:59-0500 Heart rate 88 /min Kirill Suskiewicz PT Work Phone: [facility] 09-20-2022 08:59-0500 SaO2% (BldA) [Mass fraction] 97 % Kirill Suskiewicz PT Work Phone: [facility] 09-20-2022 08:59-0500 Systolic blood pressure 130 mm[Hg] Kirill Suskiewicz PT Work Phone: [facility] 09-18-2022 09:14-0500 Body temperature 98.8 [degF] Kirill Suskiewicz PT Work Phone: [facility] 09-18-2022 09:14-0500 Diastolic blood pressure 70 mm[Hg] Kirill Suskiewicz PT Work Phone: [facility] 09-18-2022 09:14-0500 Heart rate 80 /min Kirill Suskiewicz PT Work Phone: [facility] 09-18-2022 09:14-0500 SaO2% (BldA) [Mass fraction] 98 % Kirill Suskiewicz PT Work Phone: [facility] 09-18-2022 09:14-0500 Systolic blood pressure 120 mm[Hg] Kirill Suskiewicz PT Work Phone: [facility] 09-16-2022 11:10-0500 Body temperature 98.29 [degF] Kirill Suskiewicz PT Work Phone: [facility] 09-16-2022 11:10-0500 Diastolic blood pressure 70 mm[Hg] Kirill Suskiewicz PT Work Phone: [facility] 09-16-2022 11:10-0500 Heart rate 84 /min Kirill Suskiewicz PT Work Phone: [facility] 09-16-2022 11:10-0500 SaO2% (BldA) [Mass fraction] 96 % Kirill Suskiewicz PT Work Phone: [facility] 09-16-2022 11:10-0500 Systolic blood pressure 128 mm[Hg] Kirill Suskiewicz PT Work Phone: [facility] 09-12-2022 11:03-0500 Diastolic blood pressure 64 mm[Hg] Kirill Suskiewicz PT Work Phone: [facility] 09-12-2022 11:03-0500 Heart rate 90 /min Kirill Suskiewicz PT Work Phone: [facility] 09-12-2022 11:03-0500 SaO2% (BldA) [Mass fraction] 94 % Kirill Noe PT Work Phone: [facility] 09-12-2022 11:03-0500 Systolic blood pressure 118 mm[Hg] Kirill Noe PT Work Phone: [facility] 09-12-2022 10:16-0500 Body temperature 99 [degF] Kirill Noe PT Work Phone: [facility] 08-16-2022 08:45-0500 Body height 177.8 cm Pacc 2 Work Phone: [facility] 08-16-2022 08:45-0500 Body temperature 97.5 [degF] Pacc 2 Work Phone: [facility] 08-16-2022 08:45-0500 Body weight 104.33 kg Pacc 2 Work Phone: [facility] 08-16-2022 08:45-0500 Diastolic blood pressure 93 mm[Hg] Pacc 2 Work Phone: [facility] 08-16-2022 08:45-0500 Heart rate 83 /min Pacc 2 Work Phone: [facility] 08-16-2022 08:45-0500 Respiratory rate 18 /min Pacc 2 Work Phone: [facility] 08-16-2022 08:45-0500 SaO2% (BldA) [Mass fraction] 97 % Pacc 2 Work Phone: [facility] 08-16-2022 08:45-0500 Systolic blood pressure 132 mm[Hg] Pacc 2 Work Phone: [facility] 02-22-2022 13:15-0400 Body weight 105.23 kg Chika Carpenter MD Work Phone: [facility] 11-27-2019 04:50-0400 BP Diastolic 78 mm[Hg] Tray Townsend [place] 11-27-2019 04:50-0400 BP Systolic 148 mm[Hg] Tray Gutierrez [facility] , [place] 11-27-2019 04:50-0400 Pulse (Heart Rate) 80 /min Tray Gutierrez [facility], [place] 11-27-2019 04:50-0400 Pulse Oximetry 97 % Tray Gutierrez [facility] , [place] 11-27-2019 04:50-0400 Respiratory Rate 16 /min [facility] [place] 11-27-2019 03:34-0400 BMI (Body Mass Index) 33.72 kg/m2 Tray Gutierrez [facility], [place] 11-27-2019 03:34-0400 Body Temperature 97.7 [degF] [facility] [place] 11-27-2019 03:34-0400 Body weight 106.59 kg Tray Gutierrez [facility] , [place] 11-27-2019 03:34-0400 Height 177.8 cm Tray Gutierrez [facility] , [place] Encounters Encounter Date Encounter Type Care Provider Facility Start: 01-11-2025 End: 01-11-2025 ambulatory Timothy Correa MD Work Phone: [facility] Comment on above: [place] Start: 01-11-2025 End: 01-11-2025 E-mail encounter from caregiver Timothy Correa MD Work Phone: [facility] Start: 10-18-2024 End: 10-18-2024 ambulatory UNKNOWN PROVIDER Facility:[facility] Start: 10-14-2024 ambulatory UNKNOWN PROVIDER Facili ty:[facility] Start: 09-15-2024 End: 09-15-2024 Refill Timothy Correa MD Work Phone: [facility] Comment on above: Refill Start: 09-10-2024 End: 09-10-2024 ambulatory Timothy Correa Facility:[facility] Start: 09-07-2024 End: 09-07-2024 Telephone encounter Shy Oliver MA [facility] Comment on above: Outside Medical Miguel rds Received Start: 09-06-2024 End: 09-06-2024 Office outpatient visit 15 minutes Timothy Correa MD Work Phone: [facility] Comment on above: LLQ abdominal mass ( Primary Dx); Body mass index (BMI) 34.0-34.9, adult Start: 09-06-2024 End: 09-06-2024 ambulatory UNKNOWN PROVIDER Facility:[facility] Start: 08-19-2024 ambulatory UNKNOWN PROVIDER Facili ty:[facility] Start: 08-16-2024 End: 08-17-2024 Refill Timothy Correa MD Work Phone: [facility] Comment on above: Refill Start: 08-16-2024 End: 10-31-2024 ambulatory TIMOTHY CORREA Facility:[facility] Start: 06-14-2024 End: 06-14-2024 ambulatory Adryan Pitt Facility:[facility] Start: 12-19-2023 Telephone encounter Hilaryizzy Mooreck [facility] Comment on above: Discuss results test /procedures; Reference 99 Start: 12-16-2023 End: 12-16-2023 Office outpatient visit 15 minutes Timothy Correa MD Work Phone: [facility] Comment on above: Left leg swelling (P rimary Dx) Start: 10-24-2023 Telephone encounter Timothy Correa MD Other Phone: [facility] Comment on above: Question about medic ation Start: 10-07-2023 Orders Only Timothy Correa MD Other Phone: [facility] Start: 10-06-2023 End: 10-06-2023 Patient encounter procedure Timothy Correa MD Other Phone: [facility] Work Phone: Start: 10-06-2023 End: 10-06-2023 Periodic preventive med est patient 40-64yrs Timothy Correa MD Other Phone: [facility] Comment on above: Annual physical exam (Primary Dx); B12 deficiency; Vitamin D deficiency; Type 2 diabetes mellitus without complication, without long-term current use of insulin (HCC); Encounter for long-term (current) use of medications; Pure hypercholesterolemia; Screening for malignant neoplasm of prostate; Essential hypertension, benign; Colon cancer screening Start: 09-24-2023 End: 09-24-2023 Emergency department patient visit TIMOTHY CORREA Facility:[facility] Start: 09-22-2023 Refill Timothy Correa MD Work Phone: [facility] Comment on above: Refill Start: 09-01-2023 Telephone encounter Timothy Coronado [facility] Start: 07-18-2023 End: 07-18-2023 ambulatory UNKNOWN PROVIDER Facility:[facility] Start: 07-18-2023 End: 07-18-2023 Subsequent hospital visit by physician Radio Sanchez [place] Work Phone: Radiology Comment on above: Pain in left hip [M2 5.552] Start: 06-16-2023 Telephone encounter Chika Carpenter MD Work Phone: Orthopaedics Comment on above: Appointment Start: 06-13-2023 ambulatory Chika spence MD Work Phone: Orthopaedics Comment on above: Mobic non effective Start: 06-08-2023 Letter encounter Timothy Correa MD Work Phone: [facility] Start: 05-30-2023 End: 05-30-2023 ambulatory CHIKA CARPENTER Facility:[facility] Start: 05-30-2023 End: 05-30-2023 Patient encounter procedure Chika Carpenter MD Work Phone: Orthopaedics Comment on above: Pain due to internal orthopedic prosthetic devices, implants and grafts, initial encounter (HCC) (Primary Dx) Start: 05-23-2023 ambulatory Regla Higgins PA-C Work Phone: Orthopaedics Comment on above: bone scan Start: 05-23-2023 E-mail encounter fro m caregiver Regla Higgins PA-C Work Phone: [facility] Start: 05-23-2023 End: 05-23-2023 Subsequent hospital visit by physician Mfi Toño [facility] 1 Work Phone: Molecular Imaging Comment on above: Pain due to internal orthopedic prosthetic devices, implants and grafts, initial encounter (HCC) [T84.84XA] Start: 05-23-2023 End: 05-23-2023 Subsequent hospital visit by physician [facility] Toño [facility] 1 Work Phone: Molecular Imaging Comment on above: Pain due to internal orthopedic prosthetic devices, implants and grafts, initial encounter (HCC) [T84.84XA] Start: 05-20-2023 Telephone encounter Chika Carpenter MD Work Phone: Orthopaedics Comment on above: Appointment Start: 05-16-2023 End: 05-16-2023 ambulatory UNKNOWN PROVIDER Facility:[facility] Start: 05-16-2023 End: 05-16-2023 Office outpatient visit 15 minutes Regla Higgins PA-C Work Phone: Orthopaedics Comment on above: Pain due to internal orthopedic prosthetic devices, implants and grafts, initial encounter (HCC) (Primary Dx); S/P total knee replacement using cement, left; 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) Start: 05-16-2023 End: 05-16-2023 Subsequent hospital visit by physician [facility] [place] [facility] Work Phone: Radiology Comment on above: Status post total le ft knee replacement [Z96.652] Start: 05-14-2023 Orders Only Regla Higgins PA-C Work Phone: Orthopaedics Comment on above: Status post total le ft knee replacement (Primary Dx) Start: 04-24-2023 End: 04-24-2023 Office outpatient visit 15 minutes Timothy Correa MD Work Phone: [facility] Comment on above: Myalgia (Primary Dx) ; B12 deficiency; Vitamin D deficiency Start: 03-26-2023 Refill Timothy Correa MD Work Phone: [facility] Comment on above: Refill Start: 12-06-2022 End: 12-06-2022 ambulatory CHIKA CARPENTER Facility:[facility] Start: 12-06-2022 End: 12-06-2022 Patient encounter procedure Chika Carpenter MD Work Phone: Orthopaedics Comment on above: Aftercare following right knee joint replacement surgery (Primary Dx) Start: 11-19-2022 Telephone encounter Chika Carpenter MD Work Phone: [facility] [place] Comment on above: Patient Question Start: 11-18-2022 ambulatory Chika spence MD Work Phone: Orthopaedics Comment on above: Return to work form Start: 11-18-2022 E-mail encounter fro m caregiver Chika Carpenter MD Work Phone: [facility] Start: 11-08-2022 Telephone encounter Chika Carpenter MD Work Phone: Orthopaedics Comment on above: Letter Start: 11-06-2022 End: 11-06-2022 ambulatory Tre Go PT, DPT Work Phone: [facility] Comment on above: Chronic pain of righ t knee (Primary Dx) Start: 10-30-2022 End: 10-30-2022 ambulatory Tre Go PT, DPT Work Phone: [facility] Comment on above: Chronic pain of righ t knee (Primary Dx) Start: 10-28-2022 End: 10-28-2022 ambulatory [facility] Comment on above: Chronic pain of righ t knee (Primary Dx) Start: 10-25-2022 End: 10-25-2022 ambulatory TIMOTHY CHINO Facility:[facility] Start: 10-25-2022 End: 10-25-2022 Patient encounter procedure Chika Carpenter MD Work Phone: Orthopaedics Comment on above: Aftercare following right knee joint replacement surgery (Primary Dx) Start: 10-24-2022 End: 10-24-2022 ambulatory Tre Go PT, DPT Work Phone: [facility] Comment on above: Chronic pain of righ t knee (Primary Dx) Start: 10-21-2022 End: 10-21-2022 ambulatory UNKNOWN PROVIDER Facility:[facility] Start: 10-21-2022 End: 10-21-[address] [facility] Comment on above: Chronic pain of righ t knee (Primary Dx) Start: 10-16-2022 End: 10-16-2022 ambulatory Tre Go PT, DPT Work Phone: [facility] Comment on above: Chronic pain of righ t knee (Primary Dx) Start: 10-15-2022 Telephone encounter Chika Carpenter MD Work Phone: Orthopaedics Comment on above: Appointment Start: 10-14-2022 End: 10-14-[address] [facility] Comment on above: Chronic pain of righ t knee (Primary Dx) Start: 10-10-2022 End: 10-10-2022 ambulatory UNKNOWN PROVIDER Facility:[facility] Start: 10-10-2022 End: 10-10-2022 ambulatory Ava Keita PT Work Phone: [facility] Comment on above: Chronic pain of righ t knee (Primary Dx); S/P total knee arthroplasty, right Start: 10-09-2022 Orders Only Timothy Correa MD Work Phone: [facility] Start: 10-07-2022 ambulatory Chika spence MD Work Phone: Orthopaedics Comment on above: Physical therapy Start: 10-03-2022 Telephone encounter Serina Pinto [facility] Comment on above: Discuss results of e xam, other provider Start: 10-03-2022 End: 10-03-2022 Patient encounter procedure Timothy Correa MD Work Phone: [facility] Start: 10-03-2022 End: 10-03-2022 Periodic preventive med est patient 40-64yrs Timothy Correa MD Work Phone: [facility] Comment on above: Annual physical exam (Primary Dx); Vitamin D deficiency; B12 deficiency; Essential hypertension, benign; Type 2 diabetes mellitus without complication, without long-term current use of insulin (HCC); Encounter for long-term (current) use of medications; Pure hypercholesterolemia; Screening for malignant neoplasm of prostate; Need for hepatitis C screening test Start: 10-02-2022 End: 10-02-2022 ambulatory UNKNOWN PROVIDER Facility:[facility] Start: 10-02-2022 End: 10-02-2022 ambulatory Tre Go PT, DPT Work Phone: [facility] Comment on above: Pain in right hip; Chronic pain of right knee Start: 09-30-2022 End: 09-30-2022 Home visit Kirill Noe PT Work Phone: [facility] Comment on above: PT AGENCY DC W VISIT Start: 09-26-2022 End: 09-26-2022 Home visit Kirill Noe PT Work Phone: [facility] Comment on above: PT ROUTINE Start: 09-25-2022 End: 09-25-2022 ambulatory UNKNOWN PROVIDER Facility:[facility] Start: 09-25-2022 End: 09-25-2022 Patient encounter procedure Matthieu Esparza PA-C Work Phone: Orthopaedics Comment on above: S/P total knee arthr oplasty, right (Primary Dx) Start: 09-25-2022 End: 09-25-2022 Subsequent hospital visit by physician Radio [facility] Work Phone: Radiology Comment on above: Right knee pain, uns pecified chronicity [M25.561] Start: 09-23-2022 End: 09-23-2022 Home visit Kirill Noe PT Work Phone: [facility] Comment on above: PT ROUTINE Start: 09-20-2022 End: 09-20-2022 Home visit Kirill Noe PT Work Phone: [facility] Comment on above: PT ROUTINE Start: 09-18-2022 End: 09-18-2022 Home visit Kirill Noe PT Work Phone: [facility] Comment on above: PT ROUTINE Start: 09-16-2022 End: 09-16-2022 Home visit Kirill Noe PT Work Phone: [facility] Comment on above: PT ROUTINE Start: 09-14-2022 End: 09-14-2022 Home visit Trupti Bar STUDENT LIAISON OFFICER Work Phone: [facility] Comment on above: STUDENT LIAISON OFFICER UNMADE VISIT Start: 09-14-2022 Telephone encounter Trupti Montgomery on STUDENT LIAISON OFFICER Work Phone: [facility] Comment on above: Home Care (Unmade PT visit ) Start: 09-12-2022 Telephone encounter Chika Carpenter MD Work Phone: [address] Comment on above: Patient Update Start: 09-12-2022 End: 09-12-2022 Home visit Kirill Noe PT Work Phone: [facility] Comment on above: PT SOC Start: 09-11-2022 Telephone encounter Sanaz MOBLEY S [facility] Comment on above: Home Care (Confirmat ion call) Start: 09-10-2022 Letter encounter Timothy Correa MD Work Phone: [facility] Start: 09-10-2022 End: 09-11-2022 ambulatory UNKNOWN PROVIDER Facility:[facility] Start: 09-10-2022 End: 09-10-2022 Subsequent hospital visit by physician [facility] Radiology Comment on above: Primary osteoarthrit is of right knee [M17.11] Start: 09-09-2022 Telephone encounter Chika Carpenter MD Work Phone: Orthopaedics Comment on above: Appointment Start: 09-07-2022 ambulatory UNKNOWN PROVIDER Facili ty:[facility] Start: 09-07-2022 Encounter for other preprocedural examination UNKNOWN PROVIDER [facility] Start: 09-07-2022 End: 09-07-2022 [facility] Start: 09-07-2022 End: 09-07-2022 Subsequent hospital visit by physician [facility] Radiology Comment on above: Primary osteoarthrit is of right knee [M17.11] Start: 09-04-2022 ambulatory Chika spence MD Work Phone: Orthopaedics Comment on above: Forms Start: 09-04-2022 E-mail encounter danny m caregiver Chika Carpenter MD Work Phone: [facility] Start: 09-03-2022 Telephone encounter Chika Carpenter MD Work Phone: Orthopaedics Comment on above: Forms Start: 08-26-2022 Refill Timothy Correa MD Work Phone: [facility] Comment on above: Refill Start: 08-22-2022 Patient encounter status Zechariah Carpenter MD Work Phone: Orthopaedics Start: 08-22-2022 Telephone encounter Chika Carpenter MD Work Phone: Orthopaedics Comment on above: Orders Start: 08-20-2022 Telephone encounter Chika Carpenter MD Work Phone: [address] Comment on above: Pre-Op Teaching Start: 08-16-2022 End: 08-17-2022 ambulatory UNKNOWN PROVIDER Facility:[facility] Start: 08-16-2022 Encounter for other preprocedural examination UNKNOWN PROVIDER [facility] Start: 08-16-2022 End: 08-16-2022 Admission to establishment [place] [id number] Work Phone: [facility] Start: 08-16-2022 End: 08-16-2022 ambulatory [place] [address] Work Phone: Pre Anesthesia Comment on above: Preoperative examina tion (Primary Dx); Type 2 diabetes mellitus without complication, without long-term current use of insulin (HCC); Class 1 obesity with body mass index (BMI) of 33.0 to 33.9 in adult, unspecified obesity type, unspecified whether serious comorbidity present; Former smoker; Pure hypercholesterolemia; Primary hypertension; Gastroesophageal reflux disease, unspecified whether esophagitis present Start: 08-16-2022 End: 08-16-2022 Preprocedural examination done Pacc Boone 2 Work Phone: Pre Anesthesia Start: 08-02-2022 ambulatory UNKNOWN PROVIDER Facili ty:[facility] Start: 08-02-2022 End: 08-02-2022 Patient encounter procedure Chika Carpenter MD Work Phone: Orthopaedics Comment on above: 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 (Primary Dx) Start: 08-02-2022 End: 08-02-2022 Subsequent hospital visit by physician [facility] Work Phone: Radiology Comment on above: Right shoulder pain, unspecified chronicity [M25.511] Start: 07-29-2022 Refill Timothy Correa MD Work Phone: [facility] Comment on above: Refill Start: 07-19-2022 End: 07-19-2022 Patient encounter procedure Chika Carpenter MD Work Phone: Orthopaedics Comment on above: Primary osteoarthrit is of right knee (Primary Dx) Start: 07-05-2022 Telephone encounter Chika Carpenter MD Work Phone: General Surgery Comment on above: Patient Question (pa in) Start: 06-28-2022 End: 06-28-2022 Patient encounter procedure Chika Carpenter MD Work Phone: Orthopaedics Comment on above: Primary osteoarthrit is of right knee (Primary Dx) Start: 06-21-2022 End: 06-21-2022 Patient encounter procedure Chika Carpenter MD Work Phone: Orthopaedics Comment on above: Primary osteoarthrit is of right knee (Primary Dx) Start: 06-14-2022 End: 06-14-2022 Patient encounter procedure Chika Carpenter MD Work Phone: Orthopaedics Comment on above: Primary osteoarthrit is of right knee (Primary Dx) Start: 04-18-2022 Orders Only Timotyh Correa MD Work Phone: [facility] Start: 03-04-2022 ambulatory Chika spence MD Work Phone: Orthopaedics Comment on above: Shots for the knee Start: 02-22-2022 End: 02-22-2022 Patient encounter procedure Chika Carpenter MD Work Phone: Orthopaedics Comment on above: Primary osteoarthrit is of right knee (Primary Dx) Start: 02-22-2022 End: 02-22-2022 Subsequent hospital visit by physician [facility] Abbey Braga Work Phone: Radiology Comment on above: Pain [R52] Start: 12-17-2021 Letter encounter Chika padron MD Work Phone: [facility] Comment on above: Pain (Primary Dx) Start: 11-15-2021 ambulatory Kusum barraza RN Work Phone: [facility] Care Management/Patient Access Start: 11-15-2021 Coordination of care plan Kusum Reid RN Work Phone: [facility] Management/Patient Access Comment on above: Care Coordination; H ealt Maintenance Outreach; Medical Record Review Start: 04-25-2020 End: 04-25-2020 Subsequent hospital visit by physician Lena Liao Work Phone: [facility] Comment on above: Arrived Start: 03-27-2020 End: 03-27-2020 Subsequent hospital visit by physician Awilda Vivas Work Phone: [employer] Comment on above: Acute pain of right lower extremity Start: 03-22-2020 End: 03-22-2020 Subsequent hospital visit by physician Lena Liao Work Phone: [facility] Comment on above: Arrived Start: 11-27-2019 End: 11-27-2019 Emergency department patient visit Tray Townsend Work Phone: [facility] Comment on above: Arm paresthesia, lef t (Primary Dx) Procedures Date Procedure Procedure Detail Performing Clinician Start: 10-18-2024 3 comp foot exam completed Timothy Correa MD Work Phone: Start: 10-14-2024 PSA screening UNKNOWN P KEITH Comment on above: Order Comment: The B josé manuel [place] Access DxI Total???Prostate Specific Antigen???(PSA) method is a sandwich chemiluminescent immunoassay. Results obtained with different test methods or kits cannot be used interchangeably.???The measurement of serum PSA in conjunction with digital rectal examination (GHADA) as an aid in the detection of prostate cancer in men aged 50 years or older. The [place] Access PSA is also indicated for the serial measurement of PSA to aid in the prognosis and management of patients with prostate cancer. Elevated PSA concentrations can only suggest the presence of prostate cancer until biopsy is performed. PSA concentrations can also be elevated in benign prostatic hyperplasia or inflammatory conditions of the prostate. PSA is generally not elevated in healthy individuals or individuals with non-prostatic carcinoma. Performed By: #### C H8, HEPATIC, HDL, PSA ####[facility] [id number] [place], [address] Start: 10-06-2023 3 comp foot exam completed Timothy Correa MD Other Phone: Start: 07-18-2023 Radiologic examinati on knee 3 views Matthieu Esaprza PA-C Work Phone: Start: 05-23-2023 Bone &/joint imaging 3 phase study Regla Higgins PA-C Work Phone: Start: 05-16-2023 Radiologic examinati on knee 3 views Regla Higgins PA-C Work Phone: Start: 04-24-2023 25 hydroxy includes fractions if performed Timothy Correa MD Work Phone: Start: 10-03-2022 3 comp foot exam completed Timothy Correa MD Work Phone: Start: 09-25-2022 Radiologic examinati on knee 3 views Matthieu Esparza PA-C Work Phone: Start: 09-10-2022 Ct lower extremity w /o contrast material Matthieu Esparza PA-C Work Phone: Start: 09-07-2022 SELF CHECK COVID Matthieu Esparza PA-C Work Phone: Start: 08-16-2022 End: 08-16-2022 Antibody screen Pacc 2 Work Phone: Comment on above: Order Comment: Speci men Type: BLOOD SPECIMENOrdering Facility: [facility] Address: [place] [address] Performed By: #### T SCR30 ####[facility] [id number] [place] [address] [place] Start: 08-02-2022 Arthrocentesis aspir &/inj major jt/bursa w/o us Chika Carpenter MD Work Phone: Start: 08-02-2022 Radex shoulder compl ete minimum 2 views Matthieu Esparza PA-C Work Phone: Start: 06-28-2022 Arthrocentesis aspir &/inj major jt/bursa w/o us Chika Carpenter MD Work Phone: Start: 06-21-2022 Arthrocentesis aspir &/inj major jt/bursa w/o us Chika Carpenter MD Work Phone: Start: 06-14-2022 Arthrocentesis aspir &/inj major jt/bursa w/o us Chika Carpenter MD Work Phone: Start: 02-22-2022 Arthrocentesis aspir &/inj major jt/bursa w/o us Chika Carpenter MD Work Phone: Start: 02-22-2022 Radiologic exam knee complete 4/more views Lea Connor PA-C Work Phone: Start: 06-28-2021 3 comp foot exam completed Kusum Reid RN Work Phone: Start: 04-25-2020 Bone &/joint imaging whole body Lena Liao Work Phone: Start: 03-27-2020 Dup-scan xtr veins unilateral/limited study Awilda Vivas Work Phone: Start: 11-27-2019 Ct head/brain w/o co ntrast material Tray Townsend Work Phone: Start: 11-27-2019 Assay of troponin quantitative Tray Townsend Work Phone: Start: 11-27-2019 Blood count complete auto&auto difrntl wbc Tray Townsend Work Phone: Start: 11-27-2019 INITIATE OXYGEN THER APY PROTOCOL Tray Townsend Work Phone: Start: 11-27-2019 Ecg routine ecg w/le ast 12 lds w/i&r Tray Townsend Work Phone: Plan of Treatment Date Care Activity Detail Author Start: 2034 RSV Vaccine (1 - 1-dose 75+ series) RSV Vaccine (1 - 1-dose 75+ series) [facility] Start: 2034 RSV vaccine (adult) (1 - 1-dose 75+ series) RSV vaccine (adult) (1 - 1-dose 75+ series) [facility] Start: 10-02-2026 PROSTATE CANCER SCREENING DISCUSSION PROSTATE CANCER SCREENING DISCUSSION [facility] Start: 10-02-2026 Prostate specific antigen measurement Prostate Cancer Screening Discussion [facility] Start: 12-07-2025 DTaP/Tdap/Td vaccine (3 - Td) DTaP/Tdap/Td vaccine (3 - Td) [place], [place] Start: 12-07-2025 Tetanus vaccination [facility] Start: 12-07-2025 Urine microalbumin profile DTaP,Tdap,Td Vaccine (3 - Td or Tdap) [facility] Start: 10-18-2025 Diabetic foot examination Foot Exam [facility] Start: 10-18-2025 Glaucoma screening Eye Exam [facility] Start: 10-14-2025 Creatinine measurement Basic Metabolic Panel [facility] Start: 10-14-2025 Lipid panel Lipid Profile [facility] Start: 10-14-2025 Prostate specific antigen measurement Prostate Cancer Screening (shared decision making) [facility] Start: 10-14-2025 Urine screening for protein Urine Protein (microalbumin) [facility] Start: 04-16-2025 Hemoglobin A1c measurement Hemoglobin A1C [facility] Start: 10-07-2024 End: 10-07-2024 Patient encounter procedure 10/07/2024 8:00 AM EST Office Visit [facility] [address] [place] [address] Timothy Correa MD [address] [address] [facility] Start: 10-06-2024 Creatinine measurement Basic [facility] Start: 10-06-2024 Diabetic foot examination Foot Exam [facility] Start: 10-06-2024 Glaucoma screening Eye Exam [facility] Start: 10-06-2024 Lipid panel Lipid Profile [facility] Start: 10-06-2024 Prostate specific antigen measurement [facility] making[facility] Start: 10-06-2024 [facility] Start: 09-24-2024 Creatinine measurement Basic Metabolic Panel [facility] Start: 08-19-2024 End: 08-19-2024 Professional / ancillary services management 08/19/2024 2:00 PM EST Ancillary Procedure [facility] [address] [place] [address] [facility] [address] Start: 08-12-2024 Welcome to Medicare Visit (G0402) Welcome to Medicare Visit (G0402) [facility] Start: 04-11-2024 Covid-19 Vaccine ( season) Covid-19 Vaccine ( season) [facility] Start: 04-11-2024 Covid-19 Vaccine ( season) Covid-19 Vaccine ( season) [facility] Start: 04-11-2024 Influenza vaccination Influenza Vaccine (#1) [facility] Start: 04-05-2024 Hemoglobin A1c measurement Hemoglobin A1C [facility] Start: 2024 Abdominal aortic aneurysm screening Abdominal Aortic Aneurysm Imaging [facility] Start: 2024 Advance Directive Discussion Advance Directive Discussion [facility] Start: 2024 Pneumococcal vaccination Pneumococcal Vaccine(s) (2 of 2 - PPSV23) [facility] Start: 10-06-2023 End: 10-06-2023 Patient encounter procedure 10/06/2023 8:00 AM EST Office Visit [facility] [address] [place] [address] Timothy Correa MD [address] [place] [address] [facility] Start: 10-03-2023 Diabetic foot examination [facility] Start: 10-03-2023 Hepatitis B surface antibody level LDL CHOLESTEROL [facility] Start: 10-03-2023 Lipid panel Lipid Profile [facility] Start: 10-03-2023 Urine screening for protein Microalbumin [facility] Start: 09-18-2023 BP CONTROLLED (<130/80) BP CONTROLLED (<130/80) [facility] Start: 09-16-2023 BP CONTROLLED (<130/80) BP CONTROLLED (<130/80) [facility] Start: 09-12-2023 BP CONTROLLED (<130/80) BP CONTROLLED (<130/80) [facility] Start: 09-11-2023 Basic metabolic 2000 panel - Serum or Plasma Basic Metabolic Panel [facility] Start: 09-11-2023 Creatinine measurement Basic Metabolic Panel [facility] Start: 09-08-2023 End: 09-08-2023 Patient encounter procedure 09/08/2023 8:20 AM EST Office Visit [facility] [address] [place] [address] Timothy Correa MD [address] [place] [address] [facility] Start: 08-16-2023 Basic metabolic 2000 panel - Serum or Plasma Basic Metabolic Panel [facility] Start: 07-18-2023 PROSTATE CANCER SCREENING DISCUSSION PROSTATE CANCER SCREENING DISCUSSION [facility] Start: 05-11-2023 Influenza vaccination Influenza Vaccine (#1) [facility] Start: 04-11-2023 Covid-19 Vaccine () Covid-19 Vaccine () [facility] Start: 04-11-2023 Influenza vaccination [facility] Start: 02-13-2023 Hemoglobin A1c measurement [facility] Start: 02-13-2023 Hemoglobin A1c/Hemoglobin.total in Blood HBA1C [facility] Start: 11-07-2022 [facility]abetic [facility] Start: 11-07-2022 Glaucoma screening [facility] Start: 10-03-2022 End: 10-03-2022 Patient encounter procedure 10/03/2022 Office Visit [facility] Timothy Correa MD [address] [place] [address] [facility] Start: 10-02-2022 Basic metabolic 2000 panel - Serum or Plasma [facility] Start: 10-02-2022 Lipid panel Lipid Profile [facility] Start: 10-02-2022 Urine screening for protein Microalbumin [facility] Start: 08-29-2022 End: 08-29-2022 Patient encounter procedure 08/29/2022 Office Visit [facility] Timothy Correa MD [address] [place] [address] [facility] Start: 08-11-2022 DEPRESSION ASSESSMENT DEPRESSION ASSESSMENT [facility] Start: 06-28-2022 Diabetic foot examination [facility] Start: 05-11-2022 Influenza vaccination [facility]ine (#[facility] Start: 04-11-2022 Influenza vaccination INFLUENZA (#1) [facility] Start: 04-01-2022 Hemoglobin A1c measurement Hemoglobin A1C [facility] Start: 01-23-2022 Diabetic retinal eye exam [facility] Start: 12-11-2021 COVID-19 Vaccine (3 - Booster for Moderna series) COVID-19 Vaccine (3 - Booster [facility] Moderna series) [facility] Start: 09-07-2021 COVID-19 VACCINE (3 - Booster for Moderna series) COVID-19 VACCINE (3 - Booster for Moderna series) [facility] Start: 09-07-2021 COVID-19 Vaccine (3 - Moderna series) COVID-19 Vaccine (3 - Moderna series) [facility] Start: 08-11-2021 DEPRESSION ASSESSMENT DEPRESSION ASSESSMENT [facility] Start: 11-26-2020 Creatinine measurement Creatinine monitoring [facility] [place] Start: 11-26-2020 Potassium monitoring Potassium monitoring [place] Start: 08-09-2020 [object Object] Diabetic foot exam [place] Start: 08-09-2020 A1C test (Diabetic or Prediabetic) A1C test (Diabetic or Prediabetic) [place] Start: 08-09-2020 Creatinine monitoring Creatinine monitoring [place], [place] Start: 08-09-2020 Diabetic foot examination Diabetic foot exam [place] Start: 08-09-2020 Diabetic microalbuminuria test Diabetic microalbuminuria test [place] Start: 08-09-2020 HbA1c (Bld) [Mass fraction] A1C test (Diabetic or Prediabetic) [place] Start: 08-09-2020 Lipid panel Lipid screen [place] Start: 08-09-2020 Lipid screen Lipid screen [place] Start: 08-09-2020 Potassium monitoring Potassium monitoring [place] Start: 04-11-2020 Influenza vaccination [place] Start: 07-18-2019 Diabetic retinal exam Diabetic retinal exam [place], [place] Start: 2019 Hepatitis B (HBV) Vaccine (optional start 60+ years) Hepatitis B (HBV) Vaccine (optional start 60+ years) [facility] Start: 2019 Hepatitis B Vaccine (1 of 3 - Risk 3-dose series) Hepatitis B Vaccine (1 of 3 - Risk 3-dose series) [facility] Start: 2019 RSV Vaccine (1 - 1-dose 60+ series) RSV Vaccine (1 - 1-dose 60+ series) [facility] Start: 2019 RSV vaccine (adult) (1 - Risk 60-74 years 1-dose series) RSV vaccine (adult) (1 - Risk 60-74 years 1-dose series) [facility] Start: 2019 RSV vaccine (optional 60+ years) RSV vaccine (optional 60+ years) [facility] Start: 01-16-2019 Hemoglobin A1c/Hemoglobin.total in Blood HBA1C [facility] Start: 03-22-2018 Pneumococcal vaccination [facility] Start: 03-22-2018 Pneumococcal Vaccine: 65+ (2 of 2 - PCV) Pneumococcal Vaccine: 65+ (2 of 2 - PCV) [facility] Start: 2009 Colon cancer screen colonoscopy Colon cancer screen colonoscopy [place], [place] Start: 2009 Measurement of occult blood in single stool specimen FIT [facility] Start: 2009 Screening for malignant neoplasm of colon [facility] Start: 2009 Shingles Vaccine (1 of 2) Shingles Vaccine (1 of 2) [place] Start: 2009 SHINGRIX VACCINE (1 of 2) SHINGRIX VACCINE (1 of 2) [facility] Start: 2009 Varicella-zoster vaccine (product) Shingles (RZV) Vaccine (1 of 2) [facility] Start: 2004 COLOGUARD (FIT-DNA) COLOGUARD (FIT-DNA) [facility] Start: 2004 Colonoscopy COLONOSCOPY [facility] Start: 2004 COLORECTAL CANCER SCREENING COLORECTAL CANCER SCREENING [facility] Start: [address] COLONOGRAPHY [facility] Start: 2004 FECAL OCCULT BLOOD FECAL OCCULT BLOOD [facility] Start: 2004 Screening for malignant neoplasm of colon [facility] Start: 2004 SIGMOIDOSCOPY SIGMOIDOSCOPY [facility] Start: 1978 Hepatitis A (HAV) Vaccine (optional start 19+ years) Hepatitis A (HAV) Vaccine (optional start 19+ years) [facility] Start: 1978 Urine microalbumin profile [facility] Start: 1977 ANNUAL PCP TEAM CHRONIC DISEASE VISIT ANNUAL PCP TEAM CHRONIC DISEASE VISIT [facility] Start: 1977 Anxiety Screening Anxiety Screening [facility] Start: 1977 BP CONTROLLED (<130/80) BP CONTROLLED (<130/80) [facility] Start: 1977 Depression Screening Depression Screening [facility] Start: 1977 Hepatitis B surface antibody level LDL CHOLESTEROL [facility] Start: 1977 Hepatitis C screening Hepatitis C Antibody [facility] Start: 1977 HEPATITIS C SCREENING HEPATITIS C SCREENING [facility] Start: 1977 HIV SCREENING HIV SCREENING [facility] Start: 1977 HIV screening HIV Screening [facility] Start: 1971 Adult depression screening assessment DEPRESSION SCREENING [facility] Start: 1969 3 comp foot exam completed DIABETIC FOOT EXAM [facility] Start: 1969 Diabetic foot examination Diabetic Foot Exam [facility] Start: 1969 Glaucoma screening Dilated Retinal Exam [facility] Start: 1969 Hepatitis B screening URINE ALBUMIN:CREATININE RATIO [facility] Start: 1969 Hepatitis C antibody, confirmatory test DILATED RETINAL EXAM [facility] Start: 1965 PNEUMOCOCCAL (1 - PCV) PNEUMOCOCCAL (1 - PCV) [facility] Start: 1965 Pneumococcal vaccination Pneumococcal Vaccine (1 - PCV) [facility] Start: 1959 Abdominal aortic aneurysm screening Abdominal Aortic Aneurysm Screening [facility] Start: 1959 Screening for malignant neoplasm of colon [facility] includes fractions if performed VITAMIN D, 25-HYDROXY Lab Routine Vitamin D deficiency Or[facility]: [facility]03/2022 [facility] on above: Ordered: 10/03/2022 25 hydroxy includes fractions if performed VITAMIN D, 25-HYDROXY Lab Routine Vitamin D deficiency Ordered: 10/06/2023 [employer] Work Phone: Comment on above: Ordered: 10/06/2023 Assay of gammaglobul in iga igd igg igm each MICROALBUMIN, URINE Lab Routine Type 2 diabetes mellitus without complication, without long-term current use of insulin (HCC) Ordered: 10/03/2022 [facility] [employer] Work Phone: Comment on above: Ordered: 10/03/2022 Assay of gammaglobul in iga igd igg igm each MICROALBUMIN, URINE Lab Routine Type 2 diabetes mellitus without complication, without long-term current use of insulin (HCC) Ordered: 10/06/2023 [employer] Work Phone: Comment on above: Ordered: 10/06/2023 Assay of thyroid stimulating hormone tsh TSH Lab Routine Pure hypercholesterolemia Ordered: 10/03/2022 [employer] Comment on above: Ordered: 10/03/2022 Assay of thyroid stimulating hormone tsh TSH Lab Routine Pure hypercholesterolemia Ordered: 10/06/2023 [employer] Work Phone: Comment on above: Ordered: 10/06/2023 Basic metabolic 2000 panel - Serum or Plasma BASIC METABOLIC PANEL Lab Routine Encounter for long-term (current) use of medications Ordered: 10/06/2023 [employer] Work Phone: Comment on above: Ordered: 10/06/2023 Blood count complete auto&auto difrntl wbc CBC WITH DIFFERENTIAL Lab Only Routine Encounter for long-term (current) use of medications Ordered: 10/06/2023 [facility] [employer] Work Phone: Comment on above: Ordered: 10/06/2023 Blood occult fecal h gb deter ia qual feces 1-3 FECAL IMMUNOCHEMICAL TEST (FIT) Lab Routine Colon cancer screening Ordered: 04/18/2022 [employer] Work Phone: Comment on above: Ordered: 04/18/2022 End: 06-14-2024 Bone &/joint imaging 3 phase study NM BONE 3 PHASE Radiology Routine Pain due to internal orthopedic prosthetic devices, implants and grafts, initial encounter ([facility]) S/P total knee replacement using cement, left 1 Occurrences starting 05/16/2023 until 06/14/2024 [facility] Work Phone: Comment on above: 1 Occurrences starting 05/16/2023 until 06/14/2024 CBC W Auto Different ial panel - Blood COMPLETE BLOOD COUNT W/DIFF Lab Routine Encounter for long-term (current) use of medications Ordered: 10/06/2023 [employer] Work Phone: Comment on above: Ordered: 10/06/2023 End: 09-07-2022 Ct lower extremity w/o contrast material [facility] Work Phone: Comment on above: 1 Occurrences starting 09/07/2022 until 09/07/2022 End: 10-09-2023 Ct lower extremity w/o contrast material CT KNEE WO IVCON RT Radiology Routine Primary osteoarthritis of right knee 1 Occurrences starting 09/09/2022 until 10/09/2023 [facility] Work Phone: Comment on above: 1 Occurrences starting 09/09/2022 until 10/09/2023 Ct lower extremity w /o contrast material CT KNEE WO IVCON RT Radiology Routine Primary osteoarthritis of right knee 09/10/2022 6:57 AM EST [facility] Work Phone: End: 04-25-2020 CT LUMBAR SPINE WO CONTRAST CT LUMBAR SPINE WO CONTRAST Imaging Routine Once for 1 Occurrences starting 04/25/2020 until 04/25/2020 [facility] Comment on above: Once for 1 Occurrences starting 04/25/20 20 until 04/25/2020 CT LUMBAR SPINE WO CONTRAST CT LUMBAR SPINE WO CONTRAST Imaging Routine 04/25/2020 9:04 AM EDT [facility] Cyanocobalamin vitam in b-12 VITAMIN B12 (CYANOCOBALAMIN) Lab Routine B12 deficiency Ordered: 10/03/2022 [employer] Comment on above: Ordered: 10/03/2022 Cyanocobalamin vitam in b-12 VITAMIN B12 (CYANOCOBALAMIN) Lab Routine B12 deficiency Ordered: 10/06/2023 [employer] Work Phone: Comment on above: Ordered: 10/06/2023 Diabetes tracking panel HEMOGLOB IN A1C Lab Routine Type 2 diabetes mellitus without complication, without long-term current use of insulin (HCC) Ordered: 10/06/2023 [employer] Work Phone: Comment on above: Ordered: 10/06/2023 EKG 12 Lead EKG 12 Lead ECG STAT 11/27/2019 3:34 AM EDT [facility] Hepatic function panel HEPATIC F UNCTION PANEL Lab Routine Encounter for long-term (current) use of medications Ordered: 10/06/2023 [employer] Work Phone: Comment on above: Ordered: 10/06/2023 Hepatitis C virus Ab [Units/volume] in Serum by Immunoassay HEPATITIS C ANTIBODY Lab Routine Need for hepatitis C screening test Ordered: 10/03/2022 [employer] Comment on above: Ordered: 10/03/2022 Initiate Oxygen Ther apy Protocol Initiate Oxygen Therapy Protocol Respiratory Care Routine Daily until discontinued starting 11/27/2019, 2 completed [facility] Comment on above: Daily until discontinued starting 2019, 2 completed LAB COL[facility]UARD COLON CANCER SCREEN LAB COLOGUARD COLON CANCER SCREEN Lab Routine Colon cancer screening Ordered: 10/06/2023 [employer] Work Phone: Comment on above: Ordered: 10/06/2023 Lipid 1996 panel - S sheldon or Plasma FULL LIPID PROFILE Lab Routine Pure hypercholesterolemia Ordered: 10/03/2022 [employer] Comment on above: Ordered: 10/03/2022 Lipid 1996 panel - S sheldon or Plasma FULL LIPID PROFILE Lab Routine Pure hypercholesterolemia Ordered: 10/06/2023 [employer] Work Phone: Comment on above: Ordered: 10/06/2023 End: 03-22-2020 MRI LUMBAR SPINE W WO CONTRAST MRI LUMBAR SPINE W WO CONTRAST Imaging Routine Once for 1 Occurrences starting 03/22/2020 until 03/22/2020 [facility] [place] Comment on above: Once for 1 Occurrences starting 03/22/20 20 until 03/22/2020 MRI LUMBAR SPINE W W O CONTRAST MRI LUMBAR SPINE W WO CONTRAST Imaging Routine 03/22/2020 12:52 PM EDT [employer] [place] Prostate specific Ag panel - Serum or Plasma PROSTATE SPECIFIC ANTIGEN (PSA) Lab Routine Screening for malignant neoplasm of prostate Ordered: 10/06/2023 [employer] Work Phone: Comment on above: Ordered: 10/06/2023 End: 03-03-2023 XR KNEE GENERAL 4V AP BOTH/PA BOTH/LAT/MERC BILATERAL XR KNEE GENERAL 4V AP BOTH/PA BOTH/LAT/MERC BILATERAL Radiology Routine Pain 1 Occurrences starting 02/01/2022 until 03/03/2023 [facility] Work Phone: Comment on above: 1 Occurrences starting 02/01/2022 until 03/03/2023 End: 06-12-2024 XR KNEE POST 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 XR KNEE POST 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 Radiology Routine Status post total left knee replacement 1 Occurrences starting 05/14/2023 until 06/12/2024 [facility] Work Phone: Comment on above: 1 Occurrences starting 05/14/2023 until 06/12/2024 [facility] Immunizations Immunization Date Immunization Notes Care Provider [facility] 10-18-2024 Pneumococcal conjuga te 20 valent (PCV20), polysaccharide [id number] conjugate, adjuvant, PF (DYX=752) Timothy Correa MD Work Phone: [facility] 10-14-2024 Hemoglobin A1C Timothy Correa MD Work Phone: [facility] 10-06-2023 Hemoglobin A1C Timothy Correa MD Other Phone: [facility] Work Phone: 08-16-2022 Hemoglobin A1C Timothy Correa MD Work Phone: [facility] 08-10-2022 influenza, high dose seasonal, preservative-free [facility] 08-10-2022 influenza virus vacc ine, unspecified formulation Timothy Correa MD Work Phone: [facility] 10-02-2021 Hemoglobin A1C Kusmu Reid RN Work Phone: [facility] 07-13-2021 Moderna Monovalent ( 12+ yrs) COVID-19 vaccine, mRNA, spike protein, LNP, PF, 100 mcg/0.5 mL (KKE=093) Timothy Correa MD Work Phone: [facility] 06-06-2021 influenza, injectabl e, quadrivalent, preservative free Kusum Reid RN Work Phone: [facility] 06-06-2021 influenza virus vacc ine, unspecified formulation Timothy Correa MD Work Phone: [facility] 06-05-2021 Moderna Monovalent ( 12+ yrs) COVID-19 vaccine, mRNA, spike protein, LNP, PF, 100 mcg/0.5 mL (MVH=988) Timothy Correa MD Work Phone: [facility] 03-22-2017 pneumococcal polysaccharide vaccine, 23 valent [facility] 12-08-2015 tetanus toxoid, redu froilan diphtheria toxoid, and acellular pertussis vaccine, adsorbed Tray Townsend [facility] 08-30-1999 tetanus toxoid, redu froilan diphtheria toxoid, and acellular pertussis vaccine, adsorbed [facility], [place] zoster vac recomb adjuvanted (SHINGRIX) 50 MCG/0.5ML SUSR injection Timothy Correa MD Work Phone: [facility] Payers Date Payer Category Payer Medicare FFS MEDICARE [id number] 2024 Medicare [id number] 2024 Self-pay 2014 Unknown BCBS [place] - [place] P PO xxxxxxxxxxxx 2014-Present [address] [place] [address] xxxxxxxxxxxx [id number] 2004 Blue Cross Blue Shield ANTH - BLUE CROSS [id number] 2004 Unknown [id number] 2004 Unknown ANTHEM BLUE CARD PPO OOS [id number] 2004-Present [phone] [address] [place] [address] PPO [id number] 2004 Unknown [id number] 1959 Unknown [id number] 1959 Unknown [id number] 1959 Unknown [id number] 1959 Unknown [id number] 1959 Unknown [id number] Unknown [id number] Unknown [id number] Social History Date Type Detail Facility Start: 11-09-2019 End: 04-24-2023 Tobacco smoking status NHIS Former smoker [place] Start: 08-09-2019 History SDOH Financial 5 [place] Start: 08-09-2019 End: 12-22-2019 History SDOH Food Worry 1 [place], [place] Start: 08-09-2019 End: 12-22-2019 History SDOH Transport Med 2 [place], [place] Start: 1960 Sex Assigned At Not on file [place] Exposure to SARS-CoV -2 (event) Unable to assess [place] Start: 03-27-2020 End: 04-24-2023 Tobacco use and exposure [facility] Start: 2020 End: 03-27-2020 Alcohol intake Current drinker of alcohol (finding) [place] Start: 03-27-2020 History SDOH Social Connections Phone 3 [place] Start: 03-27-2020 History SDOH Physica l Activity DPW 0 [place] Start: 02-12-2022 End: 10-03-2022 Exposure to SARS-CoV-2 (event) Not sure [place] Start: 07-15-1983 End: 07-15-2013 History of tobacco use Current smoker [facility] Start: 07-15-1983 End: 07-15-2013 History of tobacco use Cigarette Smoker [facility] Start: 07-15-2014 End: 08-12-2024 Cigarettes smoked current (pack per day) - Reported 0.1 [facility] Start: 07-18-2021 End: 06-21-2022 Alcohol intake Ex-drinker (finding) [facility] Start: 10-25-2020 History SDOH Alcohol Comment not weekly [facility] Start: 10-25-2022 End: 08-12-2024 Gender identity Not on file [facility] National Score (1-10 0), lower number is lower risk 41 [facility] Are you now , , , , never or living with a partner? [facility] Start: 05-23-2020 Sex Male (finding) [facility] Medical Equipment Procedure Code Equipment Code Equipment Origin al Text Equipment Identifier Dates Renaldo Bn Smplx Hv Fd - [id number] Start: 08-09-2014 Comment on above: Description: Farhat Royal HV Full Dose US Comp Fem 5 Lt Kn Cr Renaldo Trthln - [id number] Start: 08-09-2014 Ins Tib 6 11mm X 3 Cs Trthln - [id number] Start: 08-09-2014 Comp Pat 10mm 35 mm Asym Trthln - [id number] Start: 08-09-2014 Baseplt Tib Trth ln 6 Prim - [id number] Start: 08-09-2014 Component Triathlon 5 Pa Femoral Cruciate Retain Bead Knee Right - [id number] Start: 09-10-2022 Component Tritanium 35mm Metal 10mm Patellar Asymmetric Knee - [id number] Start: 09-10-2022 Insert Triathlon 6 9mm Tibial Bearing Condylar Stabilize Sterile Knee - [id number] Start: 09-10-2022 Baseplate Triathlon 6 Tritanium [id number] Tibial 4 Cruciform Peg Keel Knee - [id number] Start: 09-10-2022 Goals Date Patient Goal Desired Activity /State Personal health goal Clinical Notes 11-15-2021 to 01-17-2025 Addendum Note - Timothy Correa MD - 01/17/2025 9:15 PM EDTAddendum Note - Timothy Correa MD - 01/17/2025 9:15 PM EDTTelephone Encounter - Malaika Rubin RN, BSN - 09/08/2024 2:08 PM EST Note Date & Type Note Facility 01-17-2025 Note Addended by: TIMOTHY CORREA on: 01/17/2025 09:15 PM Modules accepted: Orders [facility] 01-17-2025 Miscellaneous Notes Addended by: TIMOTHY CORREA on: 01/17/2025 09:15 PM Modules accepted: Orders documented in this encounter [facility] 09-08-2024 Telephone encounter Note Situation: calling asking for images of CT to be forwarded to their office. Background: na Assessment: na Recommendation: provided with number to medical records and call was transferred [phone] [facility] Miscellaneous Notes Situation: calling asking for images of CT to be forwarded to their office. Background: na Assessment: na Recommendation: provided with number to medical records and call was transferred [phone] here at office window, Requesting that previous [address] report be faxed to [facility] with referral order. Records printed and faxed as requested. Nothing further needed at this time documented in this encounter [facility] 09-07-2024 Note here at office window, Requesting that previous [address] report be faxed to [facility] with referral order. Records printed and faxed as requested. Nothing further needed at this time [employer] 09-07-2024 Telephone encounter Note here at office window, Requesting that previous [address] report be faxed to [facility] with referral order. Records printed and faxed as requested. Nothing further needed at this time [facility] History of Present illness Narrative Images from the original note were not included. HPI: Roberto is here today as the lump on the left lower quadrant of the abdomen has gotten bigger and more tender. I reviewed the images of the CT of the abdomen pelvis. No specific explanation for the mass is apparent. Does have asymptomatic gallstones. We discussed that the likelihood of conversion to being symptomatic is proximally 2 percent humidified only per year. We discussed that this is possibly a post shingles complication which rarely affects the motor nerves. Also discussed the possibility abdominal wall hernia such as a spigelian hernia however this seems a bit lateral for that. Will refer for surgical consult for their opinion. Chief Complaint Patient presents with Abdominal mass Lump on side got bigger and uncomfortable Roberto Osborn PCP is Timothy Correa MD Patient was identified by name and date of . Timothy Correa MD Subjective: Vitals Recorded in This Encounter 09/06/2024 1117 09/06/2024 1122 BP: 141/83 126/72 Pulse: 76 -- BP position: sitting sitting Resp: 16 -- Temp: 98.2 F (36.8 C) -- Temp src: Temporal -- SpO2: 97 % -- Weight: 248 lb 2 oz (112.5 kg) -- Height: 5' 11 (1.803 m) -- Pain Score: 1 -- Pain Loc: ABDOMEN -- Patient Active Problem List: Allergic rhinitis [J30.9] Degenerative arthritis of knee [M17.9] Encounter for long-term (current) use of medications [Z79.899] Essential hypertension, benign [I10] Gait abnormality [R26.9] GERD (gastroesophageal reflux disease) [K21.9] Spinal stenosis of lumbar region [M48.061] Type 2 diabetes mellitus without complication, without long-term current use of insulin (HCC) [E11.9] Pure hypercholesterolemia [E78.00] Chronic pain of right knee [M25.561, G89.29] Health Maintenance Topic Date Due CRC Screening Never done Shingles (RZV) Vaccine (1 of 2) Never done Pneumococcal Vaccine(s) (65+ yrs) (2 of 2 - PCV) 03/22/2018 Hemoglobin A1C 04/05/2024 Influenza Vaccine (1) 04/11/2024 COVID-19 Vaccine (3 - season) 2024 Welcome to Medicare Visit (G0402) Never done Urine Protein (microalbumin) 10/06/2024 Lipid Profile 10/06/2024 Eye Exam 10/06/2024 Basic Metabolic Panel 10/06/2024 Foot Exam 10/06/2024 Prostate Cancer Screening (shared decision making) 10/06/2024 Tetanus (Td or Tdap) Booster 12/07/2025 RSV vaccine (adult) (1 - 1-dose 75+ series) 2034 Hepatitis C Antibody Completed Tdap Booster Completed Abdominal Aortic Aneurysm Imaging Completed Vitamin B12 Discontinued Hepatitis A (HAV) Vaccine (optional start 19+ years) Discontinued Hepatitis B (HBV) Vaccine (optional start 60+ years) Discontinued Current Outpatient Medications Medication Sig Dispense Refill metFORMIN (GLUCOPHAGE) 500 MG tablet TAKE 1 TABLET TWICE A DAY WITH MEALS 180 Tablet 3 amlodipine-benazepril (LOTREL) 10-20 MG per capsule TAKE 1 CAPSULE DAILY 90 Capsule 3 rosuvastatin (CRESTOR) 10 MG tablet TAKE 1 TABLET DAILY 90 Tablet 3 disability placard expires 10/07/2028 1 Each 0 esomeprazole (NEXIUM) 40 MG capsule TAKE 1 CAPSULE DAILY 30 MINUTES BEFORE BREAKFAST 90 Capsule 3 Anoro Ellipta 62.5-25 MCG/ACT AEPB inhalation powder USE 1 INHALATION DAILY 120 Each 5 tadalafil (CIALIS) 20 MG tablet Take 1 Tablet by mouth as needed for Erectile Dysfunction. 30 minutes prior to anticipated sexual activity as one single dose and not more than once daily. 30 Tablet 5 Aspirin Low Dose 81 MG tablet Take 81 mg by mouth 2 times daily. docusate sodium (COLACE) 100 MG capsule TAKE 1 CAPSULE BY MOUTH TWICE DAILY NEEDED FOR CONSTIPATION Acetaminophen Extra Strength 500 MG tablet Take 1,000 mg by mouth every 8 hours as needed. vitamin C (ASCORBIC ACID) 500 MG tablet TAKE 1 TABLET BY MOUTH TWICE DAILY WITH MEALS FOR 27 DOSES baclofen (LIORESAL) 10 MG tablet Take 10 mg by mouth every 8 hours as needed. (Patient not taking: Reported on 09/06/2024) No current facility-administered medications for this visit. Review of Systems Physical Exam Vitals and nursing note reviewed. Abdominal: Comments: There is a compressible mass in the left lower quadrant of the abdomen. There appears to be bowel sounds within. Assessment and Plan: Roberto was seen today for abdominal mass. Diagnoses and all orders for this visit: LLQ abdominal mass - EXTERNAL SERVICE REQUEST FOR CARE OUTSIDE [facility] Patient was identified by name and date of . Jeanie Perkins MA documented in this encounter [facility] 12-25-2023 Telephone encounter Note Pt's stopped in. Pt already sees Debbie Miranda at [facility] next week. Pt will discuss this with her. If pt needs anything else, they will let us know. [facility] 12-25-2023 Miscellaneous Notes Pt's stopped in. Pt already sees Debbie Miranda at [facility] next week. Pt will discuss this with her. If pt needs anything else, they will let us know. Attempted to contact patient. Left voicemail message on listed contact # to call [employer] at [phone]. Asked patient to reference #[phone] when calling back to our office. Ok to relay message below. See provider's note and assist pt with scheduling with PM&R delilah and also put on wait list if there is nothing soon. Pt's stopped in. Wants to know what next steps are. [facility] US was negative for DVT. Pt is in pain. Please advise. documented in this encounter [facility] 12-23-2023 Telephone encounter Note Attempted to contact patient. Left voicemail message on listed contact # to call [employer] at [phone]. Asked patient to reference #[phone] when calling back to our office. Ok to relay message below. See provider's note and assist pt with scheduling with PM&R delilah and also put on wait list if there is nothing soon. [facility] 12-19-2023 Telephone encounter Note Pt's stopped in. Wants to know what next steps are. They will look on MyChart for results of labs. US was negative for DVT. Pt is in pain. Please advise. [facility] 12-16-2023 History of Present illness Narrative Identification was verified by patient verbalizing his name and date of . Images from the original note were not included. HPI: Patient states that during the past 2 weeks he has had swelling of the left thigh in the left calf. Use reported pain in the calf and medial left thigh. Had lumbar fusion August of 2023 and prior to this has had a left total knee replacement. No other provocation recently. Has concerned because of the persistence of the swelling even when lying down and the accompanying pain. Will proceed with stat venous ultrasound of the left leg. Leg/thigh symptoms Chief Complaint Patient presents with Leg/thigh symptoms lft leg swelling, pain Roberto Osborn PCP is Timothy Correa MD Patient was identified by name and date of . Timothy Correa MD Subjective: Vitals Recorded in This Encounter 12/16/2023 0817 BP: 135/75 Pulse: 100 Resp: 16 Temp: 98 F (36.7 C) Temp src: Temporal Pain Score: 0 Patient Active Problem List: Allergic rhinitis [J30.9] Degenerative arthritis of knee [M17.9] Encounter for long-term (current) use of medications [Z79.899] Essential hypertension, benign [I10] Gait abnormality [R26.9] GERD (gastroesophageal reflux disease) [K21.9] Spinal stenosis of lumbar region [M48.061] Type 2 diabetes mellitus without complication, without long-term current use of insulin (HCC) [E11.9] Pure hypercholesterolemia [E78.00] Chronic pain of right knee [M25.561, G89.29] Health Maintenance Topic Date Due CRC Screening Never done Shingles (RZV) Vaccine (1 of 2) Never done Pneumococcal Vaccine(s) (2 of 2 - PCV) 03/22/2018 COVID-19 Vaccine ( season) 2023 RSV vaccine (optional 60+ years) 2019 Hemoglobin A1C 04/05/2024 Microalbumin 10/06/2024 Lipid Profile 10/06/2024 Eye Exam 10/06/2024 Basic Metabolic Panel 10/06/2024 Foot Exam 10/06/2024 Prostate Cancer Screening (shared decision making) 10/06/2024 Tetanus (Td or Tdap) Booster 12/07/2025 Hepatitis C Antibody Completed Tdap Booster Completed HIV Test Discontinued Vitamin B12 Discontinued Hepatitis A (HAV) Vaccine (optional start 19+ years) Discontinued Hepatitis B (HBV) Vaccine (optional start 60+ years) Discontinued Current Outpatient Medications Medication Sig Dispense Refill disability placard expires 10/07/2028 1 Each 0 esomeprazole (NEXIUM) 40 MG capsule TAKE 1 CAPSULE DAILY 30 MINUTES BEFORE BREAKFAST 90 Capsule 3 amlodipine-benazepril (LOTREL) 10-20 MG per capsule TAKE 1 CAPSULE DAILY 90 Capsule 3 metformin (GLUCOPHAGE) 500 MG tablet TAKE 1 TABLET TWICE A DAY WITH MEALS 180 Tablet 3 rosuvastatin (CRESTOR) 10 MG tablet TAKE 1 TABLET DAILY 90 Tablet 3 Anoro Ellipta 62.5-25 MCG/ACT AEPB inhalation powder USE 1 INHALATION DAILY 120 Each 5 tadalafil (CIALIS) 20 MG tablet Take 1 Tablet by mouth as needed for Erectile Dysfunction. 30 minutes prior to anticipated sexual activity as one single dose and not more than once daily. 30 Tablet 5 Aspirin Low Dose 81 MG tablet Take 81 mg by mouth 2 times daily. docusate sodium (COLACE) 100 MG capsule TAKE 1 CAPSULE BY MOUTH TWICE DAILY NEEDED FOR CONSTIPATION Acetaminophen Extra Strength 500 MG tablet Take 1,000 mg by mouth every 8 hours as needed. vitamin C (ASCORBIC ACID) 500 MG tablet TAKE 1 TABLET BY MOUTH TWICE DAILY WITH MEALS FOR 27 DOSES baclofen (LIORESAL) 10 MG tablet Take 10 mg by mouth every 8 hours as needed. No current facility-administered medications for this visit. Review of Systems Physical Exam Vitals and nursing note reviewed. Constitutional: General: He is not in acute distress. Appearance: Normal appearance. Cardiovascular: Rate and Rhythm: Normal rate and regular rhythm. Heart sounds: No murmur heard. Pulmonary: Effort: Pulmonary effort is normal. Breath sounds: Normal breath sounds. Musculoskeletal: Comments: There is moderate swelling of the left calf and the left thigh. There is tenderness to direct palpation of the left calf as well as over the medial left thigh. Neurological: Mental Status: He is alert. Assessment and Plan: Roberto was seen today for leg/thigh symptoms. Diagnoses and all orders for this visit: Left leg swelling - US LEG LEFT VENOUS + DOPPLER; Future documented in this encounter [facility] 10-06-2023 History of Present illness Narrative Patient was identified by name and date of . Angelia Morrell Patient at risk for falls:No Falls Risk protocol implemented: No Identity was confirmed by verifying patient name and date of . Blood drawn for patient. Blood obtained from l arm, using 21 gauge butterfly. Patient denies discomfort, bleeding controlled, bandage applied. Site appears normal. Images from the original note were not included. HPI: Patient is here today for his annual wellness visit. Reviewed past medical history, allergies, meds, care gaps. With the problems of essential hypertension, hypercholesterolemia, type 2 diabetes without insulin, long-term meds and screening prostate cancer labs were ordered. Chief Complaint Patient presents with Complete exam Roberto Osborn PCP is Timothy Correa MD Patient was identified by name and date of . Timothy Correa MD Subjective: Vitals Recorded in This Encounter 10/06/2023 0850 BP: 152/80 Pulse: 80 Resp: 16 Temp: 98 F (36.7 C) Temp src: Temporal Pain Score: 5 Pain Loc: OTHER Patient Active Problem List: Allergic rhinitis [J30.9] Degenerative arthritis of knee [M17.9] Encounter for long-term (current) use of medications [Z79.899] Essential hypertension, benign [I10] Gait abnormality [R26.9] GERD (gastroesophageal reflux disease) [K21.9] Spinal stenosis of lumbar region [M48.061] Type 2 diabetes mellitus without complication, without long-term current use of insulin (HCC) [E11.9] Pure hypercholesterolemia [E78.00] Chronic pain of right knee [M25.561, G89.29] Health Maintenance Topic Date Due CRC Screening Never done Shingles (RZV) Vaccine (1 of 2) Never done Pneumococcal Vaccine(s) (2 of 2 - PCV) 03/22/2018 Hemoglobin A1C 02/13/2023 Influenza Vaccine (1) 04/11/2023 COVID-19 Vaccine (3 - 2022- season) 2023 Hepatitis A (HAV) Vaccine (optional start 19+ years) 1978 RSV vaccine (optional 60+ years) 2019 Hepatitis B (HBV) Vaccine (optional start 60+ years) 2019 Microalbumin 10/03/2023 Lipid Profile 10/03/2023 Basic Metabolic Panel 09/24/2024 Eye Exam 10/06/2024 Foot Exam 10/06/2024 Prostate Cancer Screening (shared decision making) 10/06/2024 Tetanus (Td or Tdap) Booster 12/07/2025 Hepatitis C Antibody Completed Tdap Booster Completed HIV Test Discontinued Vitamin B12 Discontinued Current Outpatient Medications Medication Sig Dispense Refill esomeprazole (NEXIUM) 40 MG capsule TAKE 1 CAPSULE DAILY 30 MINUTES BEFORE BREAKFAST 90 Capsule 3 amlodipine-benazepril (LOTREL) 10-20 MG per capsule TAKE 1 CAPSULE DAILY 90 Capsule 3 metformin (GLUCOPHAGE) 500 MG tablet TAKE 1 TABLET TWICE A DAY WITH MEALS 180 Tablet 3 rosuvastatin (CRESTOR) 10 MG tablet TAKE 1 TABLET DAILY 90 Tablet 3 Anoro Ellipta 62.5-25 MCG/ACT AEPB inhalation powder USE 1 INHALATION DAILY 120 Each 5 tadalafil (CIALIS) 20 MG tablet Take 1 Tablet by mouth as needed for Erectile Dysfunction. 30 minutes prior to anticipated sexual activity as one single dose and not more than once daily. 30 Tablet 5 Aspirin Low Dose 81 MG tablet Take 81 mg by mouth 2 times daily. docusate sodium (COLACE) 100 MG capsule TAKE 1 CAPSULE BY MOUTH TWICE DAILY NEEDED FOR CONSTIPATION Acetaminophen Extra Strength 500 MG tablet Take 1,000 mg by mouth every 8 hours as needed. vitamin C (ASCORBIC ACID) 500 MG tablet TAKE 1 TABLET BY MOUTH TWICE DAILY WITH MEALS FOR 27 DOSES baclofen (LIORESAL) 10 MG tablet Take 10 mg by mouth every 8 hours as needed. No current facility-administered medications for this visit. Review of Systems Physical Exam Vitals and nursing note reviewed. Constitutional: General: He is not in acute distress. Appearance: Normal appearance. He is not ill-appearing or toxic-appearing. HENT: Head: Normocephalic. Right Ear: Tympanic membrane, ear canal and external ear normal. Left Ear: Tympanic membrane, ear canal and external ear normal. Nose: Nose normal. No congestion or rhinorrhea. Mouth/Throat: Pharynx: Oropharynx is clear. No oropharyngeal exudate or posterior oropharyngeal erythema. Eyes: General: Right eye: No discharge. Left eye: No discharge. Extraocular Movements: Extraocular movements intact. Conjunctiva/sclera: Conjunctivae normal. Pupils: Pupils are equal, round, and reactive to light. Neck: Vascular: No carotid bruit. Cardiovascular: Rate and Rhythm: Normal rate and regular rhythm. Pulses: Normal pulses. Heart sounds: Normal heart sounds. No murmur heard. Pulmonary: Effort: Pulmonary effort is normal. Breath sounds: Normal breath sounds. Abdominal: General: Abdomen is flat. Bowel sounds are normal. There is no distension. Palpations: Abdomen is soft. There is no mass. Tenderness: There is no abdominal tenderness. There is no right CVA tenderness or left CVA tenderness. Musculoskeletal: General: No swelling, tenderness or deformity. Cervical back: Normal range of motion and neck supple. No muscular tenderness. Right lower leg: No edema. Left lower leg: No edema. Lymphadenopathy: Cervical: No cervical adenopathy. Skin: General: Skin is warm and dry. Coloration: Skin is not jaundiced or pale. Neurological: General: No focal deficit present. Mental Status: He is alert and oriented to person, place, and time. Cranial Nerves: No cranial nerve deficit. Sensory: No sensory deficit. Motor: No weakness. Gait: Gait normal. Deep Tendon Reflexes: Reflexes normal. Psychiatric: Mood and Affect: Mood normal. Thought Content: Thought content normal. Judgment: Judgment normal. Assessment and Plan: Roberto was seen today for complete exam. Diagnoses and all orders for this visit: Annual physical exam B12 deficiency - VITAMIN B12 (CYANOCOBALAMIN) Vitamin D deficiency - VITAMIN D, 25-HYDROXY Type 2 diabetes mellitus without complication, without long-term current use of insulin (HCC) - MICROALBUMIN, URINE - HEMOGLOBIN A1C Encounter for long-term (current) use of medications - HEPATIC FUNCTION PANEL - BASIC METABOLIC PANEL - COMPLETE BLOOD COUNT W/DIFF Pure hypercholesterolemia - FULL LIPID PROFILE - TSH Screening for malignant neoplasm of prostate - PROSTATE SPECIFIC ANTIGEN (PSA) Essential hypertension, benign Colon cancer screening - LAB COLOGUARD COLON CANCER SCREEN documented in this encounter [facility] [employer] [facility] Work Phone: 09-01-2023 Telephone encounter Note [employer] has received a completed Stop-Bang Questionnaire related to WILIAM, lab work and EKG results from [facility]. Nothing for Dr. Correa to complete/sign. Scanned into Media and Dr. Correa notified on 09/01/2023. [facility] 09-01-2023 Miscellaneous Notes [employer] has received a completed Stop-Bang Questionnaire related to WILIAM, lab work and EKG results from [facility]. Nothing for Dr. Correa to complete/sign. Scanned into Media and Dr. Correa notified on 09/01/2023. documented in this encounter [facility] 08-14-2023 Note HNO ID: [id number] Author: CHIKA CARPENTER MD Service: ? Author Type: Physician Type: Progress Notes Filed: 08/14/2023 07:19 Note Text: DR. CARPENTER- POST-OP KNEE Post-Op F/U Office Visit Robertoankush Osborn SR presents today for a 10 months as a virtual post Person status post Right TKA. Post-operative re Covery was an MRI at the [facility]. Any questions thank you Patient's rating of condition: improving Comments: He is complaining of some left hip pain. Reports that it is present after long periods of standing and walking Does the Pt. still experience pain? PAIN EVALUATION 07/18/2023 0837 Pain Level: 4 Pain Location: Leg-Left Description: Aching Duration Amount of Time: -- ongoing Frequency: Continuous Intervention/Comfort measure: Medication Functional difficulties: Stair climbing Physical Therapy: Completed course of therapy Pain Medication: Non-narcotic Ambulating without assistance. Medications and Allergies reviewed and verified. EXAM: GEN: AANDO x3, NAD SKIN:Appropriate postop appearance Incision intact Incision well healed LeftKnee: ROM: Flexion/Extension:0 degrees to 120 degrees Pain with ROM:No Mal-alignment: No Effusion: None Non Tender to palpation of the medial , lateral , and patellofemoral joint line(s). Stability:Anterior/Posterior- Yes, stable and Varus/Valgus- Yes, stable Quad strength: normal HIP: range of motion no loss ROM No pain with passive range of motion of the hip internal/external rotation Straight leg raising negative NV: intact and Juan's negative IMAGING: Xrays: XR KNEE POST OP 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 RIGHT Narrative: * * *Final Report* * * DATE OF EXAM: Jul 18 2023 8:26AM ALFREDO 5209 - XR KNEE 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 RT / PROCEDURE REASON: M25.561-Right knee pain, unspecified chronicity * * * * Physician Interpretation * * * * PROCEDURE: Left hip and right knee INDICATION: Pain in left hip .LEFT HIP PAIN (accession [id number]), RIGHT KNEE PAIN (accession [id number]) TECHNIQUE: XR AP PELVIS, CROSSTABLE LATERAL LEFT HIP, XR KNEE 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 RT COMPARISON: Right knee 09/25/2022 FINDINGS: Left hip: Hip joint spaces are maintained. No femoral head collapse. Degenerative and postoperative change in the lower lumbar spine. Sacroiliac joints and symphysis pubis are maintained. Right knee: The total knee arthroplasty remains in satisfactory position without evidence for loosening. No periprosthetic fracture. Small joint effusion. 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 Impression: IMPRESSION: No acute abnormality [employer] Analyst: PSYCHIATRIC Transcribe Date/Time: Jul 20 2023 1:19P Dictated by : JIHAN MIX MD This examination was interpreted and the report reviewed and electronically signed by: JIHAN MIX MD on Jul 20 2023 1:20PM EST XR HIP 2V AP/LAT LEFT (AK,FL,ME,UN) Narrative: * * *Final Report* * * DATE OF EXAM: Jul 18 2023 8:26AM ALFREDO 5279 - XR HIP 2V AP/ LAT LT / PROCEDURE REASON: M25.552-Pain in left hip * * * * Physician Interpretation * * * * PROCEDURE: Left hip and right knee INDICATION: Pain in left hip .LEFT HIP PAIN (accession [id number]), RIGHT KNEE PAIN (accession [id number]) TECHNIQUE: XR AP PELVIS, CROSSTABLE LATERAL LEFT HIP, XR KNEE 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 RT COMPARISON: Right knee 09/25/2022 FINDINGS: Left hip: Hip joint spaces are maintained. No femoral head collapse. Degenerative and postoperative change in the lower lumbar spine. Sacroiliac joints and symphysis pubis are maintained. Right knee: The total knee arthroplasty remains in satisfactory position without evidence for loosening. No periprosthetic fracture. Small joint effusion. 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 Impression: IMPRESSION: No acute abnormality [employer] Analyst: PSYCHIATRIC Transcribe Date/Time: Jul 20 2023 1:19P Dictated by : JIHAN MIX MD This examination was interpreted and the report reviewed and electronically signed by: JIHAN MIX MD on Jul 20 2023 1:20PM EST IMPRESSION/PLAN: 63 year old male s/p Right TKA At normal post-operative stage of recovery. Left hip shows no evidence of significant osteoarthritis that would necessitate arthroplasty. Plan: 1. Continue range of motion/strengthening exercises 2. Continue total knee precautions including antibiotic prophylactic protocols 3. Follow-up for repeat clinical /radiographic evaluation in 5 years or sooner should he develop any new orthopedic problems Chika Carpenter MD Electronic Signature [facility] 07-18-2023 Note HNO ID: [id number] Author: Samantha Aguirre Tech Service: ? Author Type: Supervisor Type Photography Type: Progress Notes Filed: 07/18/2023 8:27 AM Note Text: Radiology Service Progress Note PATIENT NAME: Roberto Osborn SR DATE OF SERVICE: July 18, 2023 TIME: 8:26 AM PATIENT IDENTITY VERIFICATION COMPLETED USING TWO (2) IDENTIFIERS: Name and Date of confirmed by patient verbally. FALL SCREENING: Has the patient had 2 falls in the last year or 1 fall with injury or currently using an Ambulatory Assistive Device (Walker, Cane, Wheelchair, Crutches, etc.)? No PATIENT GENDER DATA: Male PATIENT RELEVANT IMPLANT DATA REVIEWED: Not Applicable RADIOLOGY DEPARTMENT: General X-ray: Exam(s) Completed: Pelvis X-Ray: Pelvis with Hip Left and Wt. Bearing Lower Extremity X-Ray(s): Knee, AP / Lat / Merchant Right and Wt. Bearing PERIPHERAL IV DATA: Not applicable SIGNED BY: Emely Cavanaugh July 18, 2023 8:26 AM [facility] 07-18-2023 History of Present illness Narrative Radiology Service Progress Note PATIENT NAME: Roberto Osborn SR DATE OF SERVICE: July 18, 2023 TIME: 8:26 AM PATIENT IDENTITY VERIFICATION COMPLETED USING TWO (2) IDENTIFIERS: Name and Date of confirmed by patient verbally. FALL SCREENING: Has the patient had 2 falls in the last year or 1 fall with injury or currently using an Ambulatory Assistive Device (Walker, Cane, Wheelchair, Crutches, etc.)? No PATIENT GENDER DATA: Male PATIENT RELEVANT IMPLANT DATA REVIEWED: Not Applicable RADIOLOGY DEPARTMENT: General X-ray: Exam(s) Completed: Pelvis X-Ray: Pelvis with Hip Left and Wt. Bearing Lower Extremity X-Ray(s): Knee, AP / Lat / Merchant Right and Wt. Bearing PERIPHERAL IV DATA: Not applicable SIGNED BY: Emely Cavanaugh July 18, 2023 8:26 AM documented in this encounter [facility] 06-27-2023 Note HNO ID: [id number] Author: Chika Carpenter MD Service: ? Author Type: Physician Type: Progress Notes Filed: 06/27/2023 8:08 AM Note Text: REASON FOR VISIT / CHIEF COMPLAINT CHIEF COMPLAINT: Roberto Osborn SR is a 63 year old male who presents today for follow up office visit. Patient presents with: Left Knee - Follow Up: Bone scan results HISTORY OF PRESENT ILLNESS (HPI) PAIN EVALUATION 05/30/2023 0934 Pain Level: 0 Pain Location: Knee-Left Here for follow-up of his left knee pain status post arthroplasty. He has been wearing a brace which she states is helping. He did have his bone scan completed. Today he reports he is having no pain in the knee. When the knee is painful it is there with the first few steps after arising from a seated position and after a long period of sitting. He denies any fevers chills or systemic signs of illness Any new injury, since being seen last: No Is there any overall improvement in your condition? Yes, Does anything make it worse?: Yes, as noted above Does anything make it better?: Yes, racing and activity modification REVIEW OF SYMPTOMS: Integumentary: Any recent skin changes or rashes? No Neurologic: Any numbness or tingling in the LOCAL AREA? No Endocrine: Any diagnosis of diabetes? Yes Hematologic: Any recent bleeding episodes? No ALLERGIES ALLERGIES Allergen Reactions Codeine Rash Morphine Hives PAST MEDICAL HISTORY PAST MEDICAL HISTORY Diagnosis Date Diabetes (HCC) GERD (gastroesophageal reflux disease) HTN (hypertension) Hypercholesteremia Osteoarthritis PAST SURGICAL HISTORY Procedure Laterality Date ARTHROSCOPY KNEE DIAGNOSTIC W/WO SYNOVIAL BX SPX 08/2008 Arthroscopy, knee right ARTHROSCOPY KNEE DIAGNOSTIC W/WO SYNOVIAL BX SPX 06/29/2013 Arthroscopy, knee left ARTHRP KNE CONDYLEANDPLATU MEDIALANDLAT COMPARTMENTS 08/09/2014 Knee replacement, total left BACK SURGERY HX lumbar december 2019 PAST SURGICAL HISTORY OF ~1996 cervical fusion PAST SURGICAL HISTORY OF tonsils age 3 REVISE MEDIAN N/CARPAL TUNNEL SURG Left 10/26/2020 TOTAL KNEE REPLACEMENT Right 09/10/2022 PHYSICAL EXAMINATION Vitals: There were no vitals taken for this visit. Body Habitus:no acute distress and alert and oriented Orientation: Normal: Oriented to person, place and time Psych: normal Sensation: sensation to light touch is grossly normal bilaterally Skin: Color, texture, turgor normal. No rashes or lesions Swelling: no swelling noted Stance: normal cervical posture, shoulder alignment, and no joint deformities or swelling noted Ortho Exam Left knee well-healed surgical incision Range of motion 0-1 20 No instability to varus valgus stress Patient able to hold the leg in extension against gravity and resistance Imaging : Bone scan completed 05/23/2023: * No scintigraphic evidence of focal abnormality in the LEFT knee. Mild minimal uptake at the tibial plateau may be secondary to stress reaction. * Presumed postop changes in the right knee. Proceedures : None today Assessment: Symptomatically improved left knee pain with no radiographic evidence of loosening or complications. Plan: 1. Prescription for meloxicam issued 2. Continue independent exercise program 3. Continue bracing as needed 4. We will follow this clinically. If symptoms change or worsen then additional work-up may be indicated Chika Carpenter M.D. Department of Orthopaedic Surgery [facility] 06-27-2023 History of Present illness Narrative REASON FOR VISIT / CHIEF COMPLAINT CHIEF COMPLAINT: Roberto Osborn SR is a 63 year old male who presents today for follow up office visit. Patient presents with: Left Knee - Follow Up: Bone scan results HISTORY OF PRESENT ILLNESS (HPI) PAIN EVALUATION 05/30/2023 0934 Pain Level: 0 Pain Location: Knee-Left Here for follow-up of his left knee pain status post arthroplasty. He has been wearing a brace which she states is helping. He did have his bone scan completed. Today he reports he is having no pain in the knee. When the knee is painful it is there with the first few steps after arising from a seated position and after a long period of sitting. He denies any fevers chills or systemic signs of illness Any new injury, since being seen last: No Is there any overall improvement in your condition? Yes, Does anything make it worse?: Yes, as noted above Does anything make it better?: Yes, racing and activity modification REVIEW OF SYMPTOMS: Integumentary: Any recent skin changes or rashes? No Neurologic: Any numbness or tingling in the LOCAL AREA? No Endocrine: Any diagnosis of diabetes? Yes Hematologic: Any recent bleeding episodes? No ALLERGIES ALLERGIES Allergen Reactions Codeine Rash Morphine Hives PAST MEDICAL HISTORY PAST MEDICAL HISTORY Diagnosis Date Diabetes (HCC) GERD (gastroesophageal reflux disease) HTN (hypertension) Hypercholesteremia Osteoarthritis PAST SURGICAL HISTORY Procedure Laterality Date ARTHROSCOPY KNEE DIAGNOSTIC W/WO SYNOVIAL BX SPX 08/2008 Arthroscopy, knee right ARTHROSCOPY KNEE DIAGNOSTIC W/WO SYNOVIAL BX SPX 06/29/2013 Arthroscopy, knee left ARTHRP KNE CONDYLE&PLATU MEDIAL&LAT COMPARTMENTS 08/09/2014 Knee replacement, total left BACK SURGERY HX lumbar december 2019 PAST SURGICAL HISTORY OF ~1996 cervical fusion PAST SURGICAL HISTORY OF tonsils age 3 REVISE MEDIAN N/CARPAL TUNNEL SURG Left 10/26/2020 TOTAL KNEE REPLACEMENT Right 09/10/2022 PHYSICAL EXAMINATION Vitals: There were no vitals taken for this visit. Body Habitus:no acute distress and alert and oriented Orientation: Normal: Oriented to person, place and time Psych: normal Sensation: sensation to light touch is grossly normal bilaterally Skin: Color, texture, turgor normal. No rashes or lesions Swelling: no swelling noted Stance: normal cervical posture, shoulder alignment, and no joint deformities or swelling noted Ortho Exam Left knee well-healed surgical incision Range of motion 0-1 20 No instability to varus valgus stress Patient able to hold the leg in extension against gravity and resistance Imaging : Bone scan completed 05/23/2023: * No scintigraphic evidence of focal abnormality in the LEFT knee. Mild minimal uptake at the tibial plateau may be secondary to stress reaction. * Presumed postop changes in the right knee. Proceedures : None today Assessment: Symptomatically improved left knee pain with no radiographic evidence of loosening or complications. Plan: 1. Prescription for meloxicam issued 2. Continue independent exercise program 3. Continue bracing as needed 4. We will follow this clinically. If symptoms change or worsen then additional work-up may be indicated Chika Carpenter M.D. Department of Orthopaedic Surgery [facility] documented in this encounter [facility] 06-16-2023 Miscellaneous Notes Please reschedule Roberto' appt to 06/20/23 at 11am and leave a message on the home phone to let them know per spouse Lien. documented in this encounter [facility] 05-23-2023 Note HNO ID: [id number] Author: Ind[place] Samuel, [place] Service: Nuclear Medicine Author Type: Technologist Type: Progress Notes Filed: 05/23/2023 8:51 AM Note Text: RADIOLOGY SERVICE PROGRESS NOTE SERVICE DATE: 05/23/2023 SERVICE TIME: 8:48 AM PATIENT IDENTITY VERIFICATION COMPLETED USING TWO (2) STANDARD IDENTIFIERS: Name and Date of confirmed by patient verbally and Name and Date of confirmed by identification band FALL SCREENING: Has the patient had 2 falls in the last year or 1 fall with injury or currently using an Ambulatory Assistive Device (Walker, Cane, Wheelchair, Crutches, etc.)? No PATIENT GENDER DATA: .male ALLERGIES: Reviewed and unchanged MEDICATIONS REVIEWED: Not applicable PATIENT RELEVANT IMPLANT DATA REVIEWED: Not Applicable CREATININE: Creatinine Date Value Ref Range Status 09/11/2022 0.54 (L) 0.73 - 1.22 mg/dL Final 08/16/2022 0.56 (L) 0.73 - 1.22 mg/dL Final 07/29/2014 0.73 0.70 - 1.40 mg/dL Final Estimated Glomerular Filtration Rate Date Value Ref Range Status 09/11/2022 112 >=60 mL/min/1.73m? Final Comment: Estimated Glomerular Filtration Rate (eGFR) is calculated using the 2020 CKD-EPI creatinine equation. This equation utilizes serum creatinine, sex, and age as parameters. The creatinine assay has traceable calibration to isotope dilution-mass spectrometry. Refer to KDIGO guidelines for clinical interpretation. In patients with unstable renal function, e.g. those with acute kidney injury, the eGFR may not accurately reflect actual GFR. P.O.C.T. RESULTS: N/A May 23, [address] PERFORMED: No IV SITE: Ambulatory: NM only - direct IV injection in the Right antecubital site POST EXAM PIV STATUS: Not applicable PROCEDURE TYPE: NM INJECT: bone flow. 22.4 mCi Tc99m MDP. No other medications given.. ADMINISTRATION TIME: 08:15 PATIENT DISCHARGED TO: Ambulatory patient, left [place] department area. A Diagnostic radioactive procedure has taken place, with no further precautions necessary other than routine body substance precautions. More information regarding radiation safety can be found using this link: [email or web address] [email or web address] SIGNATURE: GERMAINE Gonzalez PATIENT NAME: Roberto Osborn DATE: May 23, 2023 TIME: 8:48 AM PAGER/CONTACT #: [facility] 05-23-2023 History of Present illness Narrative RADIOLOGY SERVICE PROGRESS NOTE SERVICE DATE: 05/23/2023 SERVICE TIME: 8:48 AM PATIENT IDENTITY VERIFICATION COMPLETED USING TWO (2) STANDARD IDENTIFIERS: Name and Date of confirmed by patient verbally and Name and Date of confirmed by identification band FALL SCREENING: Has the patient had 2 falls in the last year or 1 fall with injury or currently using an Ambulatory Assistive Device (Walker, Cane, Wheelchair, Crutches, etc.)? No PATIENT GENDER DATA: .male ALLERGIES: Reviewed and unchanged MEDICATIONS REVIEWED: Not applicable PATIENT RELEVANT IMPLANT DATA REVIEWED: Not Applicable CREATININE: Creatinine Date Value Ref Range Status 09/11/2022 0.54 (L) 0.73 - 1.22 mg/dL Final 08/16/2022 0.56 (L) 0.73 - 1.22 mg/dL Final 07/29/2014 0.73 0.70 - 1.40 mg/dL Final Estimated Glomerular Filtration Rate Date Value Ref Range Status 09/11/2022 112 >=60 mL/min/1.73m Final Comment: Estimated Glomerular Filtration Rate (eGFR) is calculated using the 2020 CKD-EPI creatinine equation. This equation utilizes serum creatinine, sex, and age as parameters. The creatinine assay has traceable calibration to isotope dilution-mass spectrometry. Refer to KDIGO guidelines for clinical interpretation. In patients with unstable renal function, e.g. those with acute kidney injury, the eGFR may not accurately reflect actual GFR. P.O.C.T. RESULTS: N/A May 23, [address] PERFORMED: No IV SITE: Ambulatory: NC only - direct IV injection in the Right antecubital site POST EXAM PIV STATUS: Not applicable PROCEDURE TYPE: NM INJECT: bone flow. 22.4 mCi Tc99m MDP. No other medications given.. ADMINISTRATION TIME: 08:15 PATIENT DISCHARGED TO: Ambulatory patient, left [place] department area. A Diagnostic radioactive procedure has taken place, with no further precautions necessary other than routine body substance precautions. More information regarding radiation safety can be found using this link: [email or web address] %[email or web address] SIGNATURE: GERMAINE Gonzalez PATIENT NAME: Roberto Osborn SR DATE: May 23, 2023 TIME: 8:48 AM PAGER/CONTACT #: documented in this encounter [facility] 05-20-2023 Miscellaneous Notes Scheduled and called Lien, ailyn voicemail message with appointment information. Please leave a voice mail at [phone] for spouse Lien for two appts for Roberto. He needs a bone scan result appt on 05/30. Please schedule in the am hold slot. Also the 08/06 appt needs rescheduled to 08/01 in the earliest am. Just let her know on the message what was done. documented in this encounter [facility] 05-16-2023 Note HNO ID: [id number] Author: Regla Higgins PA-C Service: ? 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 Osborn is here today for his 9 year clinical follow up status post left total knee replacement. Since his last visit Mr. Osborn conveys the interval has been complicated by discomfort the past 6 months. He describes his pain as start up pain but it also gets worse with activity and at the end of the day. 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 Pleased with outcome: Yes Pain? 0 and 2 on a scale of 1-10 Ambulatory support: none Distance able to walk:> 30 minutes Stairs Normal sequence Requires a handrail: No Able to kneel: Yes Able to arise from chair: Yes with ease Back issues: Yes Pain Medication: tylenol and ibuprofen REVIEW OF SYSTEMS: No new medical issues PAST MEDICAL HISTORY Diagnosis Date Diabetes (HCC) GERD (gastroesophageal reflux disease) HTN (hypertension) Hypercholesteremia Osteoarthritis PAST SURGICAL HISTORY Procedure Laterality Date ARTHROSCOPY KNEE DIAGNOSTIC W/WO SYNOVIAL BX SPX 08/2008 Arthroscopy, knee right ARTHROSCOPY KNEE DIAGNOSTIC W/WO SYNOVIAL BX SPX 06/29/2013 Arthroscopy, knee left ARTHRP KNE CONDYLEANDPLATU MEDIALANDLAT COMPARTMENTS 08/09/2014 Knee replacement, total left BACK SURGERY HX lumbar december 2019 PAST SURGICAL HISTORY OF ~1996 cervical fusion PAST SURGICAL HISTORY OF tonsils age 3 REVISE MEDIAN N/CARPAL TUNNEL SURG Left 10/26/2020 TOTAL KNEE REPLACEMENT Right 09/10/2022 Current Outpatient Medications Medication Sig Dispense Refill acetaminophen (TYLENOL) 500 mg tablet Take 2 tablets by mouth every 8 hours as needed for pain. 90 tablet 0 metFORMIN (GLUCOPHAGE) 500 mg tablet Take 500 mg by mouth twice daily with meals. albuterol HFA (PROVENTIL HFA, VENTOLIN HFA) 90 mcg/actuation inhaler Inhale 2 Puffs as instructed. umeclidinium-vilanterol (ANORO ELLIPTA) 62.5-25 mcg/actuation inhaler Inhale 1 Puff as instructed once daily as needed (shortness of breath). AMLODIPINE-BENAZEPRIL 10-20 mg per capsule Take 1 capsule by mouth once daily. NEXIUM 40 mg capsule Take 40 mg by mouth once daily. CRESTOR 10 mg tablet Take 10 mg by mouth once daily. ascorbic acid, vitamin C, (VITAMIN C) 500 mg tablet Take 1 tablet by mouth twice daily with meals for 27 doses. 27 tablet 0 aspirin, enteric coated (ASPIRIN, ENTERIC COATED) 81 mg EC tablet Take 1 tablet by mouth twice daily for 28 days. 56 tablet 0 No current facility-administered medications for this visit. ALLERGIES Allergen Reactions Codeine Rash Morphine Hives FAMILY HISTORY Problem Relation Age of Onset Heart Father age 47- asphyxiated other (blood clot) Sister dvt No Known Problems Mother No Known Problems Brother Social History Tobacco Use Smoking status: Former Packs/day: 0.10 Years: 30.00 Additional pack years: 0.00 Total pack years: 3.00 Types: Cigarettes Quit date: 07/15/2013 Years since quittin.8 Smokeless tobacco: Never Vaping Use Vaping Use: Never used Substance Use Topics Alcohol use: Not Currently Comment: not weekly Drug use: No EXAMINATION: GENERAL:no apparent distress RESP:Unlabored with no shortness of breath CV: No extremity swelling, varices, edema, pallor, erythema Mr. Osborn has no difficulty arising out of a chair and has mild difficulty ambulating in the exam room. his gait was limping to the left. LOWER EXTREMITIES: On the exam table seated and supine, hip range of motion bilaterally was symmetric, unrestricted and non-painful. No trochanteric pain to palpation. Straight leg raise and femoral nerve stretch tests were negative for acute radicular symptoms to suggest spine problems. Examination of the left knee reveals + effusion, single previous incisions and has no erythema, warmth or tenderness. Range of motion is 0 degrees in extension and 120 degrees of flexion actively. Significant varus-valgus instability with patella tracking midline. No patellofemoral crepitus. Both lower extremities were neurovascularly intact, has no evidence of cellulitis, and has no distal swelling. X-RAYS: left cemented Triathlon cruciate retained total knee showing good component sizing, position, and alignment. The patella tracks midline. Radiographic review is concerning for possible loosening of tibial baseplate, has no findings of wear, and has slight osteolysis under the medial side of tibial baseplate. ASSESSMENT: S/P left total knee arthroplasty and experiencing pain from varus valgus instability vs possible loosening of tibia PLAN: Continue with activities as tolerated Bone scan Hinged knee sleeve Follow up is scheduled. If there are any questions or problems, patient instructed (more content not included)... [facility] 05-16-2023 Note HNO ID: [id number] Author: Samantha Aguirre Tech Service: ? Author Type: Supervisor Type Photography Type: Progress Notes Filed: 05/16/2023 7:22 AM Note Text: Radiology Service Progress Note PATIENT NAME: Roberto Osborn SR DATE OF SERVICE: May 16, 2023 TIME: 7:21 AM PATIENT IDENTITY VERIFICATION COMPLETED USING TWO (2) IDENTIFIERS: Name and Date of confirmed by patient verbally. FALL SCREENING: Has the patient had 2 falls in the last year or 1 fall with injury or currently using an Ambulatory Assistive Device (Walker, Cane, Wheelchair, Crutches, etc.)? No PATIENT GENDER DATA: Male PATIENT RELEVANT IMPLANT DATA REVIEWED: Not Applicable RADIOLOGY DEPARTMENT: General X-ray: Exam(s) Completed: Lower Extremity X-Ray(s): Knee, AP / Lat / Merchant Left and Wt. Bearing PERIPHERAL IV DATA: Not applicable SIGNED BY: Emely Cavanaugh May 16, 2023 7:21 AM [facility] 05-16-2023 History of Present illness Narrative Images from the original note were not included. DEPARTMENT OF ORTHOPAEDICS CC: Follow-up visit after knee replacement HPI: Mr. Osborn is here today for his 9 year clinical follow up status post left total knee replacement. Since his last visit Mr. Osborn conveys the interval has been complicated by discomfort the past 6 months. He describes his pain as start up pain but it also gets worse with activity and at the end of the day. 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 Pleased with outcome: Yes Pain? 0 and 2 on a scale of 1-10 Ambulatory support: none Distance able to walk:> 30 minutes Stairs Normal sequence Requires a handrail: No Able to kneel: Yes Able to arise from chair: Yes with ease Back issues: Yes Pain Medication: tylenol and ibuprofen REVIEW OF SYSTEMS: No new medical issues PAST MEDICAL HISTORY Diagnosis Date Diabetes (HCC) GERD (gastroesophageal reflux disease) HTN (hypertension) Hypercholesteremia Osteoarthritis PAST SURGICAL HISTORY Procedure Laterality Date ARTHROSCOPY KNEE DIAGNOSTIC W/WO SYNOVIAL BX SPX 08/2008 Arthroscopy, knee right ARTHROSCOPY KNEE DIAGNOSTIC W/WO SYNOVIAL BX SPX 06/29/2013 Arthroscopy, knee left ARTHRP KNE CONDYLE&PLATU MEDIAL&LAT COMPARTMENTS 08/09/2014 Knee replacement, total left BACK SURGERY HX lumbar december 2019 PAST SURGICAL HISTORY OF ~1996 cervical fusion PAST SURGICAL HISTORY OF tonsils age 3 REVISE MEDIAN N/CARPAL TUNNEL SURG Left 10/26/2020 TOTAL KNEE REPLACEMENT Right 09/10/2022 Current Outpatient Medications Medication Sig Dispense Refill acetaminophen (TYLENOL) 500 mg tablet Take 2 tablets by mouth every 8 hours as needed for pain. 90 tablet 0 metFORMIN (GLUCOPHAGE) 500 mg tablet Take 500 mg by mouth twice daily with meals. albuterol HFA (PROVENTIL HFA, VENTOLIN HFA) 90 mcg/actuation inhaler Inhale 2 Puffs as instructed. umeclidinium-vilanterol (ANORO ELLIPTA) 62.5-25 mcg/actuation inhaler Inhale 1 Puff as instructed once daily as needed (shortness of breath). AMLODIPINE-BENAZEPRIL 10-20 mg per capsule Take 1 capsule by mouth once daily. NEXIUM 40 mg capsule Take 40 mg by mouth once daily. CRESTOR 10 mg tablet Take 10 mg by mouth once daily. ascorbic acid, vitamin C, (VITAMIN C) 500 mg tablet Take 1 tablet by mouth twice daily with meals for 27 doses. 27 tablet 0 aspirin, enteric coated (ASPIRIN, ENTERIC COATED) 81 mg EC tablet Take 1 tablet by mouth twice daily for 28 days. 56 tablet 0 No current facility-administered medications for this visit. ALLERGIES Allergen Reactions Codeine Rash Morphine Hives FAMILY HISTORY Problem Relation Age of Onset Heart Father age 47- asphyxiated other (blood clot) Sister dvt No Known Problems Mother No Known Problems Brother Social History Tobacco Use Smoking status: Former Packs/day: 0.10 Years: 30.00 Additional pack years: 0.00 Total pack years: 3.00 Types: Cigarettes Quit date: 07/15/2013 Years since quittin.8 Smokeless tobacco: Never Vaping Use Vaping Use: Never used Substance Use Topics Alcohol use: Not Currently Comment: not weekly Drug use: No EXAMINATION: GENERAL:no apparent distress RESP:Unlabored with no shortness of breath CV: No extremity swelling, varices, edema, pallor, erythema Mr. Osborn has no difficulty arising out of a chair and has mild difficulty ambulating in the exam room. his gait was limping to the left. LOWER EXTREMITIES: On the exam table seated and supine, hip range of motion bilaterally was symmetric, unrestricted and non-painful. No trochanteric pain to palpation. Straight leg raise and femoral nerve stretch tests were negative for acute radicular symptoms to suggest spine problems. Examination of the left knee reveals + effusion, single previous incisions and has no erythema, warmth or tenderness. Range of motion is 0 degrees in extension and 120 degrees of flexion actively. Significant varus-valgus instability with patella tracking midline. No patellofemoral crepitus. Both lower extremities were neurovascularly intact, has no evidence of cellulitis, and has no distal swelling. X-RAYS: left cemented Triathlon cruciate retained total knee showing good component sizing, position, and alignment. The patella tracks midline. Radiographic review is concerning for possible loosening of tibial baseplate, has no findings of wear, and has slight osteolysis under the medial side of tibial baseplate. ASSESSMENT: S/P left total knee arthroplasty and experiencing pain from varus valgus instability vs possible loosening of tibia PLAN: Continue with activities as tolerated Bone scan Hinged knee sleeve Follow up is scheduled. If there are any questions or problems, patient instructed to call the office. Rx Drug Management: No prescription given at today's appointment. Regla Higgins PA-C documented in this encounter [facility] 05-16-2023 History of Present illness Narrative Radiology Service Progress Note PATIENT NAME: Roberto Osborn SR DATE OF SERVICE: May 16, 2023 TIME: 7:21 AM PATIENT IDENTITY VERIFICATION COMPLETED USING TWO (2) IDENTIFIERS: Name and Date of confirmed by patient verbally. FALL SCREENING: Has the patient had 2 falls in the last year or 1 fall with injury or currently using an Ambulatory Assistive Device (Walker, Cane, Wheelchair, Crutches, etc.)? No PATIENT GENDER DATA: Male PATIENT RELEVANT IMPLANT DATA REVIEWED: Not Applicable RADIOLOGY DEPARTMENT: General X-ray: Exam(s) Completed: Lower Extremity X-Ray(s): Knee, AP / Lat / Merchant Left and Wt. Bearing PERIPHERAL IV DATA: Not applicable SIGNED BY: Emely Cavanaugh May 16, 2023 7:21 AM documented in this encounter [facility] 04-24-2023 History of Present illness Narrative Images from the original note were not included. HPI: Patient reports a several month history of pain in the left axillary area and the left upper arm primarily in the biceps area. Also pain in the left leg primarily in the quadriceps area. When questioned about timing with respect to the Crestor he has been on the Crestor for much longer than this has been going. We will put a moratorium on the Crestor for 1 month and see if this changes the muscular pain. Also will check a CK level and as he has had a deficiency and B12 and vitamin-D will check those levels as he has been supplementing those. Chief Complaint Patient presents with left arm pain left leg pain Roberto Osborn PCP is Timothy Correa MD Patient was identified by name and date of . Timothy Correa MD Subjective: Vitals Recorded in This Encounter 04/24/2023 1314 BP: 125/74 Pulse: 88 Resp: 16 Temp: 98.8 F (37.1 C) SpO2: 97 % Pain Score: 5 Pain Loc: MULTIPLE SIT Patient Active Problem List: Allergic rhinitis [J30.9] Degenerative arthritis of knee [M17.9] Encounter for long-term (current) use of medications [Z79.899] Essential hypertension, benign [I10] Gait abnormality [R26.9] GERD (gastroesophageal reflux disease) [K21.9] Spinal stenosis of lumbar region [M48.061] Type 2 diabetes mellitus without complication, without long-term current use of insulin (HCC) [E11.9] Pure hypercholesterolemia [E78.00] Chronic pain of right knee [M25.561, G89.29] Health Maintenance Topic Date Due CRC Screening Never done Shingles (RZV) Vaccine (1 of 2) Never done Pneumococcal Vaccine(s) (2 - PCV) 03/22/2018 Eye Exam 11/07/2022 RSV vaccine (optional 60+ years) 2019 Hemoglobin A1C 02/13/2023 Influenza Vaccine (1) 05/11/2023 Basic Metabolic Panel 09/11/2023 Microalbumin 10/03/2023 Lipid Profile 10/03/2023 Foot Exam 10/03/2023 Tetanus (Td or Tdap) Booster 12/07/2025 Hepatitis C Antibody Completed Tdap Booster Completed HIV Test Discontinued Vitamin B12 Discontinued Current Outpatient Medications Medication Sig Dispense Refill Anoro Ellipta 62.5-25 MCG/ACT AEPB inhalation powder USE 1 INHALATION DAILY 120 Each 5 tadalafil (CIALIS) 20 MG tablet Take 1 Tablet by mouth as needed for Erectile Dysfunction. 30 minutes prior to anticipated sexual activity as one single dose and not more than once daily. 30 Tablet 5 Aspirin Low Dose 81 MG tablet Take 81 mg by mouth 2 times daily. docusate sodium (COLACE) 100 MG capsule TAKE 1 CAPSULE BY MOUTH TWICE DAILY NEEDED FOR CONSTIPATION Acetaminophen Extra Strength 500 MG tablet Take 1,000 mg by mouth every 8 hours as needed. vitamin C (ASCORBIC ACID) 500 MG tablet TAKE 1 TABLET BY MOUTH TWICE DAILY WITH MEALS FOR 27 DOSES esomeprazole (NEXIUM) 40 MG capsule TAKE 1 CAPSULE DAILY 30 MINUTES BEFORE BREAKFAST 90 Capsule 3 rosuvastatin (CRESTOR) 10 MG tablet TAKE 1 TABLET DAILY 90 Tablet 3 metformin (GLUCOPHAGE) 500 MG tablet TAKE 1 TABLET TWICE A DAY WITH MEALS 180 Tablet 3 amlodipine-benazepril (LOTREL) 10-20 MG per capsule TAKE 1 CAPSULE DAILY 90 Capsule 3 baclofen (LIORESAL) 10 MG tablet Take 10 mg by mouth every 8 hours as needed. No current facility-administered medications for this visit. Review of Systems Physical Exam Vitals and nursing note reviewed. Constitutional: General: He is not in acute distress. Appearance: Normal appearance. He is normal weight. He is not ill-appearing or toxic-appearing. HENT: Head: Normocephalic. Right Ear: Tympanic membrane, ear canal and external ear normal. Left Ear: Tympanic membrane, ear canal and external ear normal. Nose: Nose normal. No congestion or rhinorrhea. Mouth/Throat: Pharynx: Oropharynx is clear. No oropharyngeal exudate or posterior oropharyngeal erythema. Eyes: General: Right eye: No discharge. Left eye: No discharge. Extraocular Movements: Extraocular movements intact. Conjunctiva/sclera: Conjunctivae normal. Pupils: Pupils are equal, round, and reactive to light. Neck: Vascular: No carotid bruit. Cardiovascular: Rate and Rhythm: Normal rate and regular rhythm. Pulses: Normal pulses. Heart sounds: Normal heart sounds. No murmur heard. Pulmonary: Effort: Pulmonary effort is normal. Breath sounds: Normal breath sounds. Abdominal: General: Abdomen is flat. Bowel sounds are normal. There is no distension. Palpations: Abdomen is soft. There is no mass. Tenderness: There is no abdominal tenderness. There is no right CVA tenderness or left CVA tenderness. Musculoskeletal: General: No swelling, tenderness or deformity. Cervical back: Normal range of motion and neck supple. No muscular tenderness. Right lower leg: No edema. Left lower leg: No edema. Lymphadenopathy: Cervical: No cervical adenopathy. Skin: General: Skin is warm and dry. Coloration: Skin is not jaundiced or pale. Neurological: General: No focal deficit present. Mental Status: He is alert and oriented to person, place, and time. Cranial Nerves: No cranial nerve deficit. Sensory: No sensory deficit. Motor: No weakness. Gait: Gait normal. Deep Tendon Reflexes: Reflexes normal. Psychiatric: Mood and Affect: Mood normal. Thought Content: Thought content normal. Judgment: Judgment normal. Assessment and Plan: Roberto was seen today for left arm pain and left leg pain. Diagnoses and all orders for this visit: Myalgia - CREATINE KINASE B12 deficiency - VITAMIN B12 (CYANOCOBALAMIN) Vitamin D deficiency - VITAMIN D, 25-HYDROXY Identification was verified by patient verbalizing his name and date of . Patient at risk for falls:No Falls Risk protocol implemented: No documented in this encounter [facility] 01-27-2023 Note HNO ID: [id number] Author: Tre Go PT, DPT Service: ? Author Type: Physical Therapist Type: Progress Notes Filed: 01/27/2023 1:03 PM Note Text: 01/27/2023 [facility] RE[facility]IL[facility]ATION AND SPORTS THERAPY PHYSICAL THERAPY DISCONTINUANCE OF CARE Plan of Care Period: Start of Care Date: 10/02/22 Last Visit Date: 11/06/2022 Therapy Program: The following is a summary of the interventions provided for this episode of care; Therapeutic exercise, Manual therapy, and Gait training Assessment: The following is the goal status: Goals for Episode of Care: created on 10/02/22 , updated 10/30/2022 Patient will improve R knee flexion ROM to > 115 ? and extension ROM to neutral---Partially Achieved Patient will improve R Knee strength to symmetrical to contralateral side---Partially Achieved -Normal Gait---Partially Achieved -Reciprocal Stair Negotiation---Achieved Emery in home exercise program.---Achieved Patient will decrease pain rating by 2 points to meet minimal clinical important difference for numeric pain rating scale.---Achieved Patient Goals: decrease pain, return to work, improve performance with mobility tasks.---partially Achieved Based on the most recent progress report, patient was progressing as expected toward functional goals based on pain levels and function, return to work . Reason for Discontinuation of Care: Patient has not returned to therapy or scheduled additional follow-up appointments. Tre Go, PT, DPT [facility] 12-17-2022 Note HNO ID: [id number] Author: Chika Carpenter MD Service: ? Author Type: Physician Type: Progress Notes Filed: 12/16/2022 11:09 PM Note Text: DR. CARPENTER- POST-OP KNEE Post-Op F/U Office Visit Roberto Osborn SR presents today for a 3 months status post Right TKA. Post-operative recovery was uneventful. Patient's rating of condition: improving Comments: None.Does the Pt. still experience pain? PAIN EVALUATION 12/06/2022 0850 Pain Level: 0 Pain Location: Knee-Right Functional difficulties: None Physical Therapy: Completed course of therapy Pain Medication: Non-narcotic Ambulating without assistance. Medications and Allergies reviewed and verified. EXAM: GEN: AANDO x3, NAD SKIN:Appropriate postop appearance Incision intact Incision well healed RightKnee: ROM: Flexion/Extension:0 degrees to 115 degrees Pain with ROM:No Mal-alignment: No Effusion: None Tender to palpation of the medial joint line(s). Stability:Anterior/Posterior- Yes, stable and Varus/Valgus- Yes, stable Quad strength: normal HIP: range of motion no loss ROM NV: intact and Juan's negative IMAGING: Xrays: No x-rays today IMPRESSION/PLAN: 62 year old male s/p Right TKA At normal post-operative stage of recovery. Plan: 1. Continue range of motion/strengthening exercises as well as weightbearing as tolerated 2. Continue total knee precautions including antibiotic prophylactic protocols 3. Follow-up for repeat clinical evaluation Chika Carpenter MD Electronic Signature [facility] 12-16-2022 History of Present illness Narrative DR. CARPENTER- POST-OP KNEE Post-Op F/U Office Visit Roberto Osborn SR presents today for a 3 months status post Right TKA. Post-operative recovery was uneventful. Patient's rating of condition: improving Comments: None.Does the Pt. still experience pain? PAIN EVALUATION 12/06/2022 0850 Pain Level: 0 Pain Location: Knee-Right Functional difficulties: None Physical Therapy: Completed course of therapy Pain Medication: Non-narcotic Ambulating without assistance. Medications and Allergies reviewed and verified. EXAM: GEN: A&O x3, NAD SKIN:Appropriate postop appearance Incision intact Incision well healed RightKnee: ROM: Flexion/Extension:0 degrees to 115 degrees Pain with ROM:No Mal-alignment: No Effusion: None Tender to palpation of the medial joint line(s). Stability:Anterior/Posterior- Yes, stable and Varus/Valgus- Yes, stable Quad strength: normal HIP: range of motion no loss ROM NV: intact and Juan's negative IMAGING: Xrays: No x-rays today IMPRESSION/PLAN: 62 year old male s/p Right TKA At normal post-operative stage of recovery. Plan: 1. Continue range of motion/strengthening exercises as well as weightbearing as tolerated 2. Continue total knee precautions including antibiotic prophylactic protocols 3. Follow-up for repeat clinical evaluation Chika Carpenter MD Electronic Signature documented in this encounter [facility] 11-21-2022 Miscellaneous Notes This was done on 11/20/22. Electronically signed by Eda Mijares [facility] at 11/21/2022 9:55 AM EDT Keyla from patient's [employer] is requesting a copy of the return to work letter with detailed restrictions. I told her we sent something on 11/15, but that was just for his disability. They are asking for that same letter to be faxed to [phone]. Thank you! documented in this encounter [facility] 11-08-2022 Miscellaneous Notes Letter has been faxed and received. Regla Higgins PA-C Patient asking if he could have a return to work letter for light duty to begin on 11/18/22. If you agree, it would need to be faxed to [phone] ('s work), no cover sheet needed. Electronically signed by Eda Mijares [facility] at 11/08/2022 1:18 PM EDT documented in this encounter [facility] 11-06-2022 Note HNO ID: [id number] Author: Tre Go PT, DPT Service: ? Author Type: Physical Therapist Type: Progress Notes Filed: 11/06/2022 11:15 AM Note Text: Episode Visit Count: 9 Therapist That Will Accept/Oversee The Plan Of Care: Tre Go Start of Care Date: 10/02/22 Onset Date: 09/10/22 Patient Identified by Name and Date of : Yes REHABILITATION AND SPORTS THERAPY PHYSICAL THERAPY TREATMENT NOTE ASSESSMENT: Emphasis of today's session was on LE strengthening. Pt tolerated all exercises well this date without increase in sxs. Pt will benefit from continued skilled therapy to progress knee ROM, LE strength/stabilization and functional training to decrease pain/sxs to minimize functional limitations. PLAN FOR NEXT VISIT: continue LE strengthening SUBJECTIVE: Patient Reason for Visit: Pt feels like he is getting pretty good, pt notes increased strength and that it is easier to go up/down chairs. Pain: Pain Pain Level: 2 Pain Location: Knee - Right Description: Aching Frequency: Intermittent Post Treatment Pain Post Treatment Pain Level: No Change OBJECTIVE MEASURES WITH LEVEL OF FUNCTION: Functional Strength Functional Strength: lunge iso: ~70 degrees naga flexion, pain free TREATMENT: Therapeutic Exercise: 1: nu step, L6, x 5 min, to increase LE strength/ROM 2: STS, from hi low, L LE on 4 inch step to encourage R weight shift, 2 x 15 3: lunge iso, 3 x 20 seconds, contrlateral UE support 4: stiff legged deadlift, #15, 2 x 15 5: heel raise, 2 x 15 6: runners october, #1.5 ea, 2 x 15 ea Skilled Intervention: Patient was educated in proper exercise technique and purpose for exercises. Reviewed and educated patient on additions/changes for home exercise program as above (*). Billing Therapeutic Exercise Treatment Minutes: 40 Total Treatment Time Minutes (timed/untimed): 40 Tre Go PT, DPT [facility] [facility] History of Present illness Narrative Episode Visit Count: 9 Therapist That Will Accept/Oversee The Plan Of Care: Tre Go Start of Care Date: 10/02/22 Onset Date: 09/10/22 Patient Identified by Name and Date of : Yes REHABILITATION AND SPORTS THERAPY PHYSICAL THERAPY TREATMENT NOTE ASSESSMENT: Emphasis of today's session was on LE strengthening. Pt tolerated all exercises well this date without increase in sxs. Pt will benefit from continued skilled therapy to progress knee ROM, LE strength/stabilization and functional training to decrease pain/sxs to minimize functional limitations. PLAN FOR NEXT VISIT: continue LE strengthening SUBJECTIVE: Patient Reason for Visit: Pt feels like he is getting pretty good, pt notes increased strength and that it is easier to go up/down chairs. Pain: Pain Pain Level: 2 Pain Location: Knee - Right Description: Aching Frequency: Intermittent Post Treatment Pain Post Treatment Pain Level: No Change OBJECTIVE MEASURES WITH LEVEL OF FUNCTION: Functional Strength Functional Strength: lunge iso: ~70 degrees naga flexion, pain free TREATMENT: Therapeutic Exercise: 1: nu step, L6, x 5 min, to increase LE strength/ROM 2: STS, from hi low, L LE on 4 inch step to encourage R weight shift, 2 x 15 3: lunge iso, 3 x 20 seconds, contrlateral UE support 4: stiff legged deadlift, #15, 2 x 15 5: heel raise, 2 x 15 6: runners october, #1.5 ea, 2 x 15 ea Skilled Intervention: Patient was educated in proper exercise technique and purpose for exercises. Reviewed and educated patient on additions/changes for home exercise program as above (*). Billing Therapeutic Exercise Treatment Minutes: 40 Total Treatment Time Minutes (timed/untimed): 40 Tre Go PT, DPT documented in this encounter [facility] 10-30-2022 Note HNO ID: [id number] Author: Tre Go, PT, DPT Service: ? Author Type: Physical Therapist Type: Progress Notes Filed: 10/30/2022 12:55 PM Note Text: Episode Visit Count: 8 Therapist That Will Accept/Oversee The Plan Of Care: Tre Go Start of Care Date: 10/02/22 Onset Date: 09/10/22 Patient Identified by Name and Date of : Yes REHABILITATION AND SPORTS THERAPY PHYSICAL THERAPY PROGRESS REPORT PLAN OF CARE UPDATE: Assessment: Roberto Osborn SR demonstrates good progress towards therapy goals over initial course of POC. Pt reports a significant improvement in sxs as indicated by decreased pain frequency and intensity since starting therapy. Pt has improved knee ROM, flexion is > 110 ? and extension is less than 5 ? from neutral. Pt also demonstrates improved R knee strength, however limitations persist. Pt has improved performance with mobility tasks as indicated by gait with no AD and ability to ascend/descend stairs with a reciprocal pattern. Pt will benefit from continued skilled therapy to progress knee ROM/strength, LE stabilization and functional training to further decrease pain/sxs and facilitate return to work without restriction.. Current prognosis is Good due to: current objective clinical presentation . Goals for Episode of Care: created on 10/02/22 , updated 10/30/2022 Patient will improve R knee flexion ROM to > 115 ? and extension ROM to neutral---Partially Achieved Patient will improve R Knee strength to symmetrical to contralateral side---Partially Achieved -Normal Gait---Partially Achieved -Reciprocal Stair Negotiation---Achieved Emery in home exercise program.---Achieved Patient will decrease pain rating by 2 points to meet minimal clinical important difference for numeric pain rating scale.---Achieved Patient Goals: decrease pain, return to work, improve performance with mobility tasks.---partially Achieved Planned Interventions, Frequency, and Duration: 1x/week, 4 weeks Total Number of Visits Planned: 4 Patient to be seen for Therapeutic exercise (24836), Neuromuscular re-education (79917), Manual therapy (74409), Therapeutic activities (75408), Self-shelter management (74498), Gait Training ([id number]) SUBJECTIVE: Patient Reason for Visit: Pt may return to light duty in November, waiting to hear back from employer. Pt states that his knee feels pretty good, not much pain, some swelling.. Pain: Pain Pain Level: 2 Pain Location: Knee - Right Description: Aching Frequency: Intermittent Post Treatment Pain Post Treatment Pain Level: No Change PROMIS Scales Higher is Better 10/01/2022 Phys Func - Score 28 (severe dysfunction) Phys Func - Percentile 1 % Self-Eff Symptom - Score 51 (Average) Self-Eff Symptom - Percentile 54 % T-scores: mean of general population = 50. 5 points is clinically meaningfully difference Percentiles provide an indication of how the patient's score ranks in relation to the general population. Higher percentile rankings indicate better function/quality of life. 50th percentile is the average of the general population and indicates half of respondents had a worse score. OBJECTIVE MEASURES WITH LEVEL OF FUNCTION: LE PROM R Knee Extension: -3 Degrees R Knee Flexion: 113 Degrees LE Strength R Knee Extension (L3): 4/5 R Knee Flexion: 4+/5 Functional Strength Functional Strength: squat: ~ 70 degrees Gait Gait Observation: slight to no R LE antalgia, reciprocal pattern, functional speed Stairs: reciprocal pattern Balance Single Leg Stance: R - 5 seconds (L foot on R stringer intermittently) TREATMENT: Therapeutic Exercise: 1: nu step, L6, x 5 min, to increase LE strength/ROM 2: reassessment performed 3: stairs, 1 flight, use of rail (unilateral) 4: gait, x 150 feet 5: *heel slide, supine with stability ball with strap for over pressure, 3 sec ohld, 2 x 15 6: *knee extension stretch, heel prop, review 7: *knee extension mobilization, seated, 3 sec hold, 2 x 15 8: *STS, 2x 15 Skilled Intervention: Patient was educated in proper exercise technique and purpose for exercises. Reviewed and educated patient on additions/changes for home exercise program as above (*). Manual Therapy: 1: knee flexion mobilizations, grade 3-4 2: knee extension mobilizations Skilled Intervention: Manual skills to improve joint mobility, ROM, and decrease pain. Utilized anatomy knowledge of the therapist, and assessment of patient's response to intervention. Billing Therapeutic Exercise Treatment Minutes: 34 Manual TherapyTreatment Minutes: 8 Total Treatment Time Minutes (timed/untimed): 42 Tre Go, PT, DPT [facility] 10-30-2022 History of Present illness Narrative Episode Visit Count: 8 Therapist That Will Accept/Oversee The Plan Of Care: Tre Go Start of Care Date: 10/02/22 Onset Date: 09/10/22 Patient Identified by Name and Date of : Yes REHABILITATION AND SPORTS THERAPY PHYSICAL THERAPY PROGRESS REPORT PLAN OF CARE UPDATE: Assessment: Roberto Osborn SR demonstrates good progress towards therapy goals over initial course of POC. Pt reports a significant improvement in sxs as indicated by decreased pain frequency and intensity since starting therapy. Pt has improved knee ROM, flexion is > 110 and extension is less than 5 from neutral. Pt also demonstrates improved R knee strength, however limitations persist. Pt has improved performance with mobility tasks as indicated by gait with no AD and ability to ascend/descend stairs with a reciprocal pattern. Pt will benefit from continued skilled therapy to progress knee ROM/strength, LE stabilization and functional training to further decrease pain/sxs and facilitate return to work without restriction.. Current prognosis is Good due to: current objective clinical presentation . Goals for Episode of Care: created on 10/02/22 , updated 10/30/2022 Patient will improve R knee flexion ROM to > 115 and extension ROM to neutral---Partially Achieved Patient will improve R Knee strength to symmetrical to contralateral side---Partially Achieved -Normal Gait---Partially Achieved -Reciprocal Stair Negotiation---Achieved Emery in home exercise program.---Achieved Patient will decrease pain rating by 2 points to meet minimal clinical important difference for numeric pain rating scale.---Achieved Patient Goals: decrease pain, return to work, improve performance with mobility tasks.---partially Achieved Planned Interventions, Frequency, and Duration: 1x/week, 4 weeks Total Number of Visits Planned: 4 Patient to be seen for Therapeutic exercise (66182), Neuromuscular re-education (37944), Manual therapy (35896), Therapeutic activities (40360), Self-shelter management (88187), Gait Training (16310) SUBJECTIVE: Patient Reason for Visit: Pt may return to light duty in November, waiting to hear back from employer. Pt states that his knee feels pretty good, not much pain, some swelling.. Pain: Pain Pain Level: 2 Pain Location: Knee - Right Description: Aching Frequency: Intermittent Post Treatment Pain Post Treatment Pain Level: No Change PROMIS Scales Higher is Better 10/01/2022 Phys Func - Score 28 (severe dysfunction) Phys Func - Percentile 1 % Self-Eff Symptom - Score 51 (Average) Self-Eff Symptom - Percentile 54 % T-scores: mean of general population = 50. 5 points is clinically meaningfully difference Percentiles provide an indication of how the patient's score ranks in relation to the general population. Higher percentile rankings indicate better function/quality of life. 50th percentile is the average of the general population and indicates half of respondents had a worse score. OBJECTIVE MEASURES WITH LEVEL OF FUNCTION: LE PROM R Knee Extension: -3 Degrees R Knee Flexion: 113 Degrees LE Strength R Knee Extension (L3): 4/5 R Knee Flexion: 4+/5 Functional Strength Functional Strength: squat: ~ 70 degrees Gait Gait Observation: slight to no R LE antalgia, reciprocal pattern, functional speed Stairs: reciprocal pattern Balance Single Leg Stance: R - 5 seconds (L foot on R stringer intermittently) TREATMENT: Therapeutic Exercise: 1: nu step, L6, x 5 min, to increase LE strength/ROM 2: reassessment performed 3: stairs, 1 flight, use of rail (unilateral) 4: gait, x 150 feet 5: *heel slide, supine with stability ball with strap for over pressure, 3 sec ohld, 2 x 15 6: *knee extension stretch, heel prop, review 7: *knee extension mobilization, seated, 3 sec hold, 2 x 15 8: *STS, 2x 15 Skilled Intervention: Patient was educated in proper exercise technique and purpose for exercises. Reviewed and educated patient on additions/changes for home exercise program as above (*). Manual Therapy: 1: knee flexion mobilizations, grade 3-4 2: knee extension mobilizations Skilled Intervention: Manual skills to improve joint mobility, ROM, and decrease pain. Utilized anatomy knowledge of the therapist, and assessment of patient's response to intervention. Billing Therapeutic Exercise Treatment Minutes: 34 Manual TherapyTreatment Minutes: 8 Total Treatment Time Minutes (timed/untimed): 42 Tre Go PT, DPT documented in this encounter [facility] 10-28-2022 Note HNO ID: [id number] Author: Toy Coreas PTA Service: ? Author Type: Field Support Engineer Type: Progress Notes Filed: 10/28/2022 7:47 AM Note Text: Episode Visit Count: 7 Therapist That Will Accept/Oversee The Plan Of Care: kevin Start of Care Date: 10/02/22 Onset Date: 09/10/22 REHABILITATION AND SPORTS THERAPY PHYSICAL THERAPY TREATMENT NOTE ASSESSMENT: Roberto Osborn SR tolerated the session with no issues. Patient is able to ascend /descend steps reciprocally but exhibits a hesitation with ascending steps due to quad weakness. Patient notified of next scheduled therapy appointment date and time. The patient will continue to benefit from ongoing skilled physical therapy for reassessment by supervising therapist. PLAN FOR NEXT VISIT: Recheck next session SUBJECTIVE: Patient Reason for Visit: Patient reports that he is doing steps one over the other. Sleeping well. Saw MD and MD felt he was doing well. Patient may go back to work light duty in a couple of weeks and then in December may go full duty. Pain levels are going down. Still hurts if bending too much. Pain: Pain Pain Level: 2 Pain Location: Knee - Right Description: Aching Frequency: Intermittent OBJECTIVE MEASURES WITH LEVEL OF FUNCTION: R single leg stance : 30 seconds TREATMENT: Therapeutic Exercise: 1: nu step, L6, x 6 min, to increase LE strength/ROM., 70 spm or greater 2: Calf stretch on incline 3 x 20 seconds 3: Standing hamstring stretch on steps 3 x 0 seconds 4: knee flexion stretch 3 x 30 seconds 5: R heel raise 6: Reciprical steps 11 x 1with unilateral railing 7: TKE on 6 step x 15 8: Cybex , 3 plates , bilateral 10 x 3 9: TG at 34 , bilateral x 10 10: TG at 25, R only x 10 11: SLS, intermittent UE support, 3 x 30 seconds Skilled Intervention: Patient was educated in proper exercise technique and purpose for exercises. Skilled judgment was provided in selection of appropriate interventions. Correct performance of therapeutic exercises was facilitated with verbal and visual cuing. Billing Therapeutic Exercise Treatment Minutes: 40 Total Treatment Time Minutes (timed/untimed): 40 Toy Coreas [facility] 10-28-2022 History of Present illness Narrative Episode Visit Count: 7 Therapist That Will Accept/Oversee The Plan Of Care: kevin Start of Care Date: 10/02/22 Onset Date: 09/10/22 REHABILITATION AND SPORTS THERAPY PHYSICAL THERAPY TREATMENT NOTE ASSESSMENT: Roberto Osborn SR tolerated the session with no issues. Patient is able to ascend /descend steps reciprocally but exhibits a hesitation with ascending steps due to quad weakness. Patient notified of next scheduled therapy appointment date and time. The patient will continue to benefit from ongoing skilled physical therapy for reassessment by supervising therapist. PLAN FOR NEXT VISIT: Recheck next session SUBJECTIVE: Patient Reason for Visit: Patient reports that he is doing steps one over the other. Sleeping well. Saw MD and MD felt he was doing well. Patient may go back to work light duty in a couple of weeks and then in December may go full duty. Pain levels are going down. Still hurts if bending too much. Pain: Pain Pain Level: 2 Pain Location: Knee - Right Description: Aching Frequency: Intermittent OBJECTIVE MEASURES WITH LEVEL OF FUNCTION: R single leg stance : 30 seconds TREATMENT: Therapeutic Exercise: 1: nu step, L6, x 6 min, to increase LE strength/ROM., 70 spm or greater 2: Calf stretch on incline 3 x 20 seconds 3: Standing hamstring stretch on steps 3 x 0 seconds 4: knee flexion stretch 3 x 30 seconds 5: R heel raise 6: Reciprical steps 11 x 1with unilateral railing 7: TKE on 6 step x 15 8: Cybex , 3 plates , bilateral 10 x 3 9: TG at 34 , bilateral x 10 10: TG at 25, R only x 10 11: SLS, intermittent UE support, 3 x 30 seconds Skilled Intervention: Patient was educated in proper exercise technique and purpose for exercises. Skilled judgment was provided in selection of appropriate interventions. Correct performance of therapeutic exercises was facilitated with verbal and visual cuing. Billing Therapeutic Exercise Treatment Minutes: 40 Total Treatment Time Minutes (timed/untimed): 40 Toy Coreas PTA documented in this encounter [facility] 10-28-2022 Note HNO ID: [id number] Author: Chika Carpenter MD Service: ? Author Type: Physician Type: Progress Notes Filed: 10/27/2022 11:20 PM Note Text: DR. CARPENTER- POST-OP KNEE Post-Op F/U Office Visit Roberto Osborn SR presents today for a 6 weeks status post Right TKA. Post-operative recovery was uneventful. Patient's rating of condition: improving Comments: None Does the Pt. still experience pain? PAIN EVALUATION 10/25/2022 1141 Pain Level: 3 Pain Location: Knee-Right Description: Tightness;Stiffness Duration Amount of Time: -- ongoing Frequency: Continuous Intervention/Comfort measure: Medication;Exercise;Cold Functional difficulties: Stair climbing, Arising from chair, and Walking Physical Therapy: Yes Pain Medication: None Ambulating without assistance. Medications and Allergies reviewed and verified. EXAM: GEN: AANDO x3, NAD SKIN:Appropriate postop appearance Incision intact Incision well healed RightKnee: ROM: Flexion/Extension:5 degrees to 110 degrees Pain with ROM:No Mal-alignment: No Effusion: None Tender to palpation of the medial and lateral joint line(s). Stability:Anterior/Posterior- Yes, stable and Varus/Valgus- Yes, stable Quad strength: normal HIP: range of motion no loss ROM NV: intact and Juan's negative IMAGING: Xrays: No x-rays today IMPRESSION/PLAN: 62 year old male s/p Right TKA At normal post-operative stage of recovery. Patient is interested in returning to work. I feel that in 2 weeks he would be ready for a light duty position as long as it did not involve any lifting or climbing on ladders or scaffolding's. He may find walking on uneven terrain can be difficult. Plan: 1. Continue range of motion/strengthening exercises 2. Continue total knee precautions including antibiotic prophylactic protocols 3. Return for light duty in 2 weeks if patient feels up to it if not then he should hold off until his next visit in 6 weeks 4. Follow-up 6 weeks Chika Carpenter MD Electronic Signature [facility] 10-27-2022 History of Present illness Narrative Images from the original note were not included. DR. CARPENTER- POST-OP KNEE Post-Op F/U Office Visit Roberto Osborn SR presents today for a 6 weeks status post Right TKA. Post-operative recovery was uneventful. Patient's rating of condition: improving Comments: None Does the Pt. still experience pain? PAIN EVALUATION 10/25/2022 1141 Pain Level: 3 Pain Location: Knee-Right Description: Tightness;Stiffness Duration Amount of Time: -- ongoing Frequency: Continuous Intervention/Comfort measure: Medication;Exercise;Cold Functional difficulties: Stair climbing, Arising from chair, and Walking Physical Therapy: Yes Pain Medication: None Ambulating without assistance. Medications and Allergies reviewed and verified. EXAM: GEN: A&O x3, NAD SKIN:Appropriate postop appearance Incision intact Incision well healed RightKnee: ROM: Flexion/Extension:5 degrees to 110 degrees Pain with ROM:No Mal-alignment: No Effusion: None Tender to palpation of the medial and lateral joint line(s). Stability:Anterior/Posterior- Yes, stable and Varus/Valgus- Yes, stable Quad strength: normal HIP: range of motion no loss ROM NV: intact and Juan's negative IMAGING: Xrays: No x-rays today IMPRESSION/PLAN: 62 year old male s/p Right TKA At normal post-operative stage of recovery. Patient is interested in returning to work. I feel that in 2 weeks he would be ready for a light duty position as long as it did not involve any lifting or climbing on ladders or scaffolding's. He may find walking on uneven terrain can be difficult. Plan: 1. Continue range of motion/strengthening exercises 2. Continue total knee precautions including antibiotic prophylactic protocols 3. Return for light duty in 2 weeks if patient feels up to it if not then he should hold off until his next visit in 6 weeks 4. Follow-up 6 weeks Chika Carpenter MD Electronic Signature documented in this encounter [facility] 10-24-2022 Note HNO ID: [id number] Author: Tre Go PT, DPT Service: ? Author Type: Physical Therapist Type: Progress Notes Filed: 10/24/2022 8:37 AM Note Text: Episode Visit Count: 6 Therapist That Will Accept/Oversee The Plan Of Care: mn Start of Care Date: 10/02/22 Onset Date: 09/10/22 Patient Identified by Name and Date of : Yes REHABILITATION AND SPORTS THERAPY PHYSICAL THERAPY TREATMENT NOTE ASSESSMENT: Pt denied any increase in sxs with performance of exercise this date. Pt continues to demonstrate steady gains in knee ROM. Pt will benefit from continued skilled therapy to progress LE strength/stabilization, knee ROm, and functional training to decrease pain/sxs to facilitate return to work. PLAN FOR NEXT VISIT: continue LE strength/stabilization SUBJECTIVE: Patient Reason for Visit: Pt states that he is getting a little bit better each day. Pain: Pain Pain Level: 4 Pain Location: Knee - Right Description: Aching Frequency: Intermittent Post Treatment Pain Post Treatment Pain Level: No Change OBJECTIVE MEASURES WITH LEVEL OF FUNCTION: LE PROM R Knee Extension: -3 Degrees R Knee Flexion: 112 Degrees TREATMENT: Therapeutic Exercise: 1: nu step, L5/6, x 6 min, to increase LE strength/ROM. 2: leg extension, cybex, #20 x 15, #30 x 15 (B/L) 3: side steps, #green band above knees, 2 x 10 feet ea direction 4: TG squat, L30, 2 x 15 5: hip hinge, stiff legged, with cane x 15, #15 x 15 6: SLS, intermittent UE support, 3 x 30 seconds Skilled Intervention: Patient was educated in proper exercise technique and purpose for exercises. Reviewed and educated patient on additions/changes for home exercise program as above (*). Billing Therapeutic Exercise Treatment Minutes: 44 Total Treatment Time Minutes (timed/untimed): 44 rTe Go, PT, DPT [facility] 10-24-2022 History of Present illness Narrative Episode Visit Count: 6 Therapist That Will Accept/Oversee The Plan Of Care: mn Start of Care Date: 10/02/22 Onset Date: 09/10/22 Patient Identified by Name and Date of : Yes REHABILITATION AND SPORTS THERAPY PHYSICAL THERAPY TREATMENT NOTE ASSESSMENT: Pt denied any increase in sxs with performance of exercise this date. Pt continues to demonstrate steady gains in knee ROM. Pt will benefit from continued skilled therapy to progress LE strength/stabilization, knee ROm, and functional training to decrease pain/sxs to facilitate return to work. PLAN FOR NEXT VISIT: continue LE strength/stabilization SUBJECTIVE: Patient Reason for Visit: Pt states that he is getting a little bit better each day. Pain: Pain Pain Level: 4 Pain Location: Knee - Right Description: Aching Frequency: Intermittent Post Treatment Pain Post Treatment Pain Level: No Change OBJECTIVE MEASURES WITH LEVEL OF FUNCTION: LE PROM R Knee Extension: -3 Degrees R Knee Flexion: 112 Degrees TREATMENT: Therapeutic Exercise: 1: nu step, L5/6, x 6 min, to increase LE strength/ROM. 2: leg extension, cybex, #20 x 15, #30 x 15 (B/L) 3: side steps, #green band above knees, 2 x 10 feet ea direction 4: TG squat, L30, 2 x 15 5: hip hinge, stiff legged, with cane x 15, #15 x 15 6: SLS, intermittent UE support, 3 x 30 seconds Skilled Intervention: Patient was educated in proper exercise technique and purpose for exercises. Reviewed and educated patient on additions/changes for home exercise program as above (*). Billing Therapeutic Exercise Treatment Minutes: 44 Total Treatment Time Minutes (timed/untimed): 44 Tre Go PT, DPT documented in this encounter [facility] 10-21-2022 Note HNO ID: [id number] Author: Toy Coreas PTA Service: ? Author Type: Field Support Engineer Type: Progress Notes Filed: 10/21/2022 3:42 PM Note Text: Episode Visit Count: 5 Therapist That Will Accept/Oversee The Plan Of Care: mn Start of Care Date: 10/02/22 Onset Date: 09/10/22 REHABILITATION AND SPORTS THERAPY PHYSICAL THERAPY TREATMENT NOTE ASSESSMENT: Roberto Osborn SR tolerated the session with expected muscle soreness. He demonstrated limited right knee extension and flexion. Challenged with single leg squat on [employer] gym. The patient will continue to benefit from ongoing skilled physical therapy to progress toward set goals. PLAN FOR NEXT VISIT: manual to restore knee ROM SUBJECTIVE: Patient Reason for Visit: Patient reports that he is trying to go up stair one over the other. Patient reports that he hasn't been out in the yard. Not using cane anymore. Pain: Pain Pain Level: 4 Pain Location: Knee - Right Description: Aching (from the swelling) Post Treatment Pain Post Treatment Pain Level: 5 Post Treatment Pain Location: Knee - Right OBJECTIVE MEASURES WITH LEVEL OF FUNCTION: LE PROM R Knee Extension: -5 Degrees R Knee Flexion: 108 Degrees TREATMENT: Therapeutic Exercise: 1: NuStep, seat 10,arm 11, L 5, 6 minutes 2: Calf stretch on incline 3 x 20 seconds 3: Standing hamstring stretch on steps 3 x 0 seconds 4: heel/toe raises x 10 6: 6 forward step up x 12 7: 6 lateral step up x 10 8: 4 retro step x 10 9: TG at 31 degrees x 17 with 5 seconds 10: TG at 25 degrees, right only x15 11: knee extension stretch, heel prop, #5, 2 x 2 minutes Skilled Intervention: Patient was educated in proper exercise technique and purpose for exercises. Skilled judgment was provided in selection of appropriate interventions. Correct performance of therapeutic exercises was facilitated with verbal and visual cuing. Manual Therapy: 1: patella mobs 2: P/A tibial mobs for knee extension (grades II-III) 3: A/P femoral mobs for extension (grade II-III) with patient in supine and towel roll under the knee. Skilled Intervention: Manual skills to improve joint mobility, ROM, and decrease pain. Utilized anatomy knowledge of the therapist, and assessment of patient's response to intervention. Billing Therapeutic Exercise Treatment Minutes: 31 Manual TherapyTreatment Minutes: 12 Total Treatment Time Minutes (timed/untimed): 43 Toy Coreas, [facility] 10-21-2022 History of Present illness Narrative Episode Visit Count: 5 Therapist That Will Accept/Oversee The Plan Of Care: kevin Start of Care Date: 10/02/22 Onset Date: 09/10/22 REHABILITATION AND SPORTS THERAPY PHYSICAL THERAPY TREATMENT NOTE ASSESSMENT: Roberto Osborn SR tolerated the session with expected muscle soreness. He demonstrated limited right knee extension and flexion. Challenged with single leg squat on [employer] gym. The patient will continue to benefit from ongoing skilled physical therapy to progress toward set goals. PLAN FOR NEXT VISIT: manual to restore knee ROM SUBJECTIVE: Patient Reason for Visit: Patient reports that he is trying to go up stair one over the other. Patient reports that he hasn't been out in the yard. Not using cane anymore. Pain: Pain Pain Level: 4 Pain Location: Knee - Right Description: Aching (from the swelling) Post Treatment Pain Post Treatment Pain Level: 5 Post Treatment Pain Location: Knee - Right OBJECTIVE MEASURES WITH LEVEL OF FUNCTION: LE PROM R Knee Extension: -5 Degrees R Knee Flexion: 108 Degrees TREATMENT: Therapeutic Exercise: 1: NuStep, seat 10,arm 11, L 5, 6 minutes 2: Calf stretch on incline 3 x 20 seconds 3: Standing hamstring stretch on steps 3 x 0 seconds 4: heel/toe raises x 10 6: 6 forward step up x 12 7: 6 lateral step up x 10 8: 4 retro step x 10 9: TG at 31 degrees x 17 with 5 seconds 10: TG at 25 degrees, right only x15 11: knee extension stretch, heel prop, #5, 2 x 2 minutes Skilled Intervention: Patient was educated in proper exercise technique and purpose for exercises. Skilled judgment was provided in selection of appropriate interventions. Correct performance of therapeutic exercises was facilitated with verbal and visual cuing. Manual Therapy: 1: patella mobs 2: P/A tibial mobs for knee extension (grades II-III) 3: A/P femoral mobs for extension (grade II-III) with patient in supine and towel roll under the knee. Skilled Intervention: Manual skills to improve joint mobility, ROM, and decrease pain. Utilized anatomy knowledge of the therapist, and assessment of patient's response to intervention. Billing Therapeutic Exercise Treatment Minutes: 31 Manual TherapyTreatment Minutes: 12 Total Treatment Time Minutes (timed/untimed): 43 Toy Coreas PTA documented in this encounter [facility] 10-16-2022 Note HNO ID: [id number] Author: Tre Go PT, DPT Service: ? Author Type: Physical Therapist Type: Progress Notes Filed: 10/16/2022 10:31 AM Note Text: Episode Visit Count: 4 Therapist That Will Accept/Oversee The Plan Of Care: kevin Start of Care Date: 10/02/22 Onset Date: 09/10/22 Patient Identified by Name and Date of : Yes REHABILITATION AND SPORTS THERAPY PHYSICAL THERAPY TREATMENT NOTE ASSESSMENT: Pt demonstrates improved R knee ROM since starting therapy, extension improved from - 12 ? to - 5 ? and flexion from 90 ? to 105 ?. Pt will benefit from continued skilled therapy to progress knee ROM, LE strength/stabilization, and functional training to decrease pain/sxs to minimize functional limitations. PLAN FOR NEXT VISIT: manual to restore knee ROM SUBJECTIVE: Patient Reason for Visit: Pt notes moderate soreness this date. pt thinks he overdid it yesterday as a result of increased walking. Pain: Pain Pain Level: 5 Pain Location: Knee - Right Description: Stiffness Frequency: Continuous Post Treatment Pain Post Treatment Pain Level: No Change OBJECTIVE MEASURES WITH LEVEL OF FUNCTION: LE PROM R Knee Extension: -5 Degrees R Knee Flexion: 105 Degrees TREATMENT: Therapeutic Exercise: 1: nu step, L5, x 5 min, to increase LE strength/ROM 2: knee extension stretch, heel prop, #5, 2 x 2 minutes 3: hamstirng stretch, supine with strap, 3 x 30 seconds 4: *ASLR, review 5: STS, from elevated hi low, 2 x 15 6: 6 inch step up, runners october, 2 x 12 7: 6 inch step ups, lateral, 2 x 12 Skilled Intervention: Patient was educated in proper exercise technique and purpose for exercises. Reviewed and educated patient on additions/changes for home exercise program as above (*). Billing Therapeutic Exercise Treatment Minutes: 43 Total Treatment Time Minutes (timed/untimed): 43 Tre Go, PT, DPT [facility] 10-16-2022 History of Present illness Narrative Episode Visit Count: 4 Therapist That Will Accept/Oversee The Plan Of Care: kevin Start of Care Date: 10/02/22 Onset Date: 09/10/22 Patient Identified by Name and Date of : Yes REHABILITATION AND SPORTS THERAPY PHYSICAL THERAPY TREATMENT NOTE ASSESSMENT: Pt demonstrates improved R knee ROM since starting therapy, extension improved from - 12 to - 5 and flexion from 90 to 105 . Pt will benefit from continued skilled therapy to progress knee ROM, LE strength/stabilization, and functional training to decrease pain/sxs to minimize functional limitations. PLAN FOR NEXT VISIT: manual to restore knee ROM SUBJECTIVE: Patient Reason for Visit: Pt notes moderate soreness this date. pt thinks he overdid it yesterday as a result of increased walking. Pain: Pain Pain Level: 5 Pain Location: Knee - Right Description: Stiffness Frequency: Continuous Post Treatment Pain Post Treatment Pain Level: No Change OBJECTIVE MEASURES WITH LEVEL OF FUNCTION: LE PROM R Knee Extension: -5 Degrees R Knee Flexion: 105 Degrees TREATMENT: Therapeutic Exercise: 1: nu step, L5, x 5 min, to increase LE strength/ROM 2: knee extension stretch, heel prop, #5, 2 x 2 minutes 3: hamstirng stretch, supine with strap, 3 x 30 seconds 4: *ASLR, review 5: STS, from elevated hi low, 2 x 15 6: 6 inch step up, runners october, 2 x 12 7: 6 inch step ups, lateral, 2 x 12 Skilled Intervention: Patient was educated in proper exercise technique and purpose for exercises. Reviewed and educated patient on additions/changes for home exercise program as above (*). Billing Therapeutic Exercise Treatment Minutes: 43 Total Treatment Time Minutes (timed/untimed): 43 Tre Go PT DPT documented in this encounter [facility] 10-15-2022 Miscellaneous Notes LVM & sent MC asking patient to CB & R/S Thanks! documented in this encounter [facility] 10-14-2022 Note HNO ID: [id number] Author: Toy Coreas PTA Service: ? Author Type: Field Support Engineer Type: Progress Notes Filed: 10/14/2022 4:51 PM Note Text: Episode Visit Count: 3 Therapist That Will Accept/Oversee The Plan Of Care: mn Start of Care Date: 10/02/22 Onset Date: 09/10/22 Patient Identified by Name and Date of : Yes REHABILITATION AND SPORTS THERAPY PHYSICAL THERAPY TREATMENT NOTE ASSESSMENT: Roberto Osborn SR tolerated the session with expected muscle soreness. He demonstrated difficulty with step ups requiring upper extremity assist. Patient exhibits mild discomfort with end stretching but voices tolerance. Patient notified of next scheduled therapy appointment date and time. The patient will continue to benefit from ongoing skilled physical therapy to progress toward set goals. PLAN FOR NEXT VISIT: TKA protocol SUBJECTIVE: Patient Reason for Visit: Patient is doing exercises daily. Doing steps reciprocally going up . Going down steps, preet times reciprocally, some times step to pattern Pain: Pain Pain Level: 5 Pain Location: Knee - Right Description: Stiffness Frequency: Continuous Post Treatment Pain Post Treatment Pain Level: No Change OBJECTIVE MEASURES WITH LEVEL OF FUNCTION: LE PROM R Knee Extension: -10 Degrees R Knee Flexion: 112 Degrees (AAROM with belt) TREATMENT: Therapeutic Exercise: 1: NuStep, seat 10,arm 11, L 4, 5 minutes 2: Calf stretch on incline 3 x 20 seconds 3: Standing hamstring stretch on steps 3 x 20 seconds 4: flexion stretcho n steps 3 x 20 seconds 5: Standing heel/toe raises x 10 6: 6 step ups forward x 10 7: 6 step ups lateral x 10 8: Seated quad sets 10 x 10 seconds 9: Seated QS with SLR x 10 10: supine knee extension with roll under heel x 3 minutes Skilled Intervention: Patient was educated in proper exercise technique and purpose for exercises. Reviewed and educated patient on additions/changes for home exercise program as above (*). Skilled judgment was provided in selection of appropriate interventions. Correct performance of therapeutic exercises was facilitated with verbal and visual cuing. Manual Therapy: 1: patella mobs 2: P/A tibial mobs for knee extension (grades II-III) 3: A/P femoral mobs for extension (grade II-III) with patient in supine and towel roll under the knee. Skilled Intervention: Manual skills to improve joint mobility, ROM, and decrease pain. Utilized anatomy knowledge of the therapist, and assessment of patient's response to intervention. Billing Therapeutic Exercise Treatment Minutes: 30 Manual TherapyTreatment Minutes: 13 Total Treatment Time Minutes (timed/untimed): [address] [facility] History of Present illness Narrative Episode Visit Count: 3 Therapist That Will Accept/Oversee The Plan Of Care: kevin Start of Care Date: 10/02/22 Onset Date: 09/10/22 Patient Identified by Name and Date of : Yes REHABILITATION AND SPORTS THERAPY PHYSICAL THERAPY TREATMENT NOTE ASSESSMENT: Roberto Osborn SR tolerated the session with expected muscle soreness. He demonstrated difficulty with step ups requiring upper extremity assist. Patient exhibits mild discomfort with end stretching but voices tolerance. Patient notified of next scheduled therapy appointment date and time. The patient will continue to benefit from ongoing skilled physical therapy to progress toward set goals. PLAN FOR NEXT VISIT: TKA protocol SUBJECTIVE: Patient Reason for Visit: Patient is doing exercises daily. Doing steps reciprocally going up . Going down steps, preet times reciprocally, some times step to pattern Pain: Pain Pain Level: 5 Pain Location: Knee - Right Description: Stiffness Frequency: Continuous Post Treatment Pain Post Treatment Pain Level: No Change OBJECTIVE MEASURES WITH LEVEL OF FUNCTION: LE PROM R Knee Extension: -10 Degrees R Knee Flexion: 112 Degrees (AAROM with belt) TREATMENT: Therapeutic Exercise: 1: NuStep, seat 10,arm 11, L 4, 5 minutes 2: Calf stretch on incline 3 x 20 seconds 3: Standing hamstring stretch on steps 3 x 20 seconds 4: flexion stretcho n steps 3 x 20 seconds 5: Standing heel/toe raises x 10 6: 6 step ups forward x 10 7: 6 step ups lateral x 10 8: Seated quad sets 10 x 10 seconds 9: Seated QS with SLR x 10 10: supine knee extension with roll under heel x 3 minutes Skilled Intervention: Patient was educated in proper exercise technique and purpose for exercises. Reviewed and educated patient on additions/changes for home exercise program as above (*). Skilled judgment was provided in selection of appropriate interventions. Correct performance of therapeutic exercises was facilitated with verbal and visual cuing. Manual Therapy: 1: patella mobs 2: P/A tibial mobs for knee extension (grades II-III) 3: A/P femoral mobs for extension (grade II-III) with patient in supine and towel roll under the knee. Skilled Intervention: Manual skills to improve joint mobility, ROM, and decrease pain. Utilized anatomy knowledge of the therapist, and assessment of patient's response to intervention. Billing Therapeutic Exercise Treatment Minutes: 30 Manual TherapyTreatment Minutes: 13 Total Treatment Time Minutes (timed/untimed): 43 Toy Coreas PTA documented in this encounter [facility] 10-10-2022 Note HNO ID: [id number] Author: Ava Keita PT Service: ? Author Type: Physical Therapist Type: Progress Notes Filed: 10/10/2022 12:05 PM Note Text: Episode Visit Count: 2 Therapist That Will Accept/Oversee The Plan Of Care: mn Start of Care Date: 10/02/22 Onset Date: 09/10/22 REHABILITATION AND SPORTS THERAPY PHYSICAL THERAPY TREATMENT NOTE ASSESSMENT: Roberto Osborn SR tolerated the session with expected muscle soreness. He demonstrated improvements in AROM. The patient will continue to benefit from ongoing skilled physical therapy to progress toward set goals. PLAN FOR NEXT VISIT: TKA protocol SUBJECTIVE: Patient Reason for Visit: Pain 5/10 constant pain anterior and medial lateral. Not new, pain same location as always. Swelling is improving. Cane for longer distances. Trouble still wtih bending. Pain: see above Post Treatment Pain Post Treatment Pain Level: No Change OBJECTIVE MEASURES WITH LEVEL OF FUNCTION: LE AROM R Knee Extension: (lacking 8 degrees) LE PROM R Knee Flexion: 110 Degrees (AAROM with belt) Knee presentation: Nominal swelling Calf soft and non painful Minor reddness around incision Denies posterior calf pain, but does report chronic medial/lateral pain States swelling improving TREATMENT: Therapeutic Exercise: 1: long sit quad set 10 x 10 sec 2: *EOB HS and calf stretch with belt 3 x 20 sec ea 3: supine knee extn stretch with roll under heel x 2 min 4: heel slide with belt with toe tap 10 x 10 sec 5: Nustep level 3 UE/LE x 5 min 6: knee flexion stretch 10 x 10 sec 7: HS stretch 3 x 20 sec 8: standing knee extn 10 x 5 sec 9: step up 2 x 4 inches B COMMUNICATIONS PROJECT MANAGER 10: standing incline calf stretch 3 x 20 sec Skilled Intervention: Patient was educated in proper exercise technique and purpose for exercises. Skilled judgment was provided in selection of appropriate interventions. Provided written instruction for home exercise program to facilitate proper performance and compliance. Correct performance of therapeutic exercises was facilitated with verbal and visual cuing. Billing Therapeutic Exercise Treatment Minutes: 35 Manual TherapyTreatment Minutes: 5 Total Treatment Time Minutes (timed/untimed): 42 Ava Keita PT [facility] 10-10-2022 History of Present illness Narrative Episode Visit Count: 2 Therapist That Will Accept/Oversee The Plan Of Care: mn Start of Care Date: 10/02/22 Onset Date: 09/10/22 REHABILITATION AND SPORTS THERAPY PHYSICAL THERAPY TREATMENT NOTE ASSESSMENT: Roberto Osborn SR tolerated the session with expected muscle soreness. He demonstrated improvements in AROM. The patient will continue to benefit from ongoing skilled physical therapy to progress toward set goals. PLAN FOR NEXT VISIT: TKA protocol SUBJECTIVE: Patient Reason for Visit: Pain 5/10 constant pain anterior and medial lateral. Not new, pain same location as always. Swelling is improving. Cane for longer distances. Trouble still wtih bending. Pain: see above Post Treatment Pain Post Treatment Pain Level: No Change OBJECTIVE MEASURES WITH LEVEL OF FUNCTION: LE AROM R Knee Extension: (lacking 8 degrees) LE PROM R Knee Flexion: 110 Degrees (AAROM with belt) Knee presentation: Nominal swelling Calf soft and non painful Minor reddness around incision Denies posterior calf pain, but does report chronic medial/lateral pain States swelling improving TREATMENT: Therapeutic Exercise: 1: long sit quad set 10 x 10 sec 2: *EOB HS and calf stretch with belt 3 x 20 sec ea 3: supine knee extn stretch with roll under heel x 2 min 4: heel slide with belt with toe tap 10 x 10 sec 5: Nustep level 3 UE/LE x 5 min 6: knee flexion stretch 10 x 10 sec 7: HS stretch 3 x 20 sec 8: standing knee extn 10 x 5 sec 9: step up 2 x 4 inches B COMMUNICATIONS PROJECT MANAGER 10: standing incline calf stretch 3 x 20 sec Skilled Intervention: Patient was educated in proper exercise technique and purpose for exercises. Skilled judgment was provided in selection of appropriate interventions. Provided written instruction for home exercise program to facilitate proper performance and compliance. Correct performance of therapeutic exercises was facilitated with verbal and visual cuing. Billing Therapeutic Exercise Treatment Minutes: 35 Manual TherapyTreatment Minutes: 5 Total Treatment Time Minutes (timed/untimed): 42 Ava Keita PT documented in this encounter [facility] 10-03-2022 History of Present illness Narrative Images from the original note were not included. HPI: Patient is here today for annual wellness visit. Reviewed past medical history, allergies, meds, care gaps. Three weeks ago had right total knee replacement. He is doing quite well ambulating a cane. Reviewed labs the hospital and augmented labs today with the lipids, thyroid, B12, vitamin-D and microalbumin test. The hemoglobin A1c in the hospital was 6.2. Complete exam Chief Complaint Patient presents with Complete exam Roberto Osborn PCP is Timothy Correa MD Patient was identified by name and date of . Timothy Correa MD Subjective: Vitals Recorded in This Encounter 10/03/2022 0826 BP: 119/61 Pulse: 96 Resp: 16 Temp: 98 F (36.7 C) SpO2: 96 % Pain Score: 4 Patient Active Problem List: Allergic rhinitis [J30.9] Degenerative arthritis of knee [M17.9] Encounter for long-term (current) use of medications [Z79.899] Essential hypertension, benign [I10] Gait abnormality [R26.9] GERD (gastroesophageal reflux disease) [K21.9] Spinal stenosis of lumbar region [M48.061] Type 2 diabetes mellitus without complication, without long-term current use of insulin (HCC) [E11.9] Pure hypercholesterolemia [E78.00] Chronic pain of right knee [M25.561, G89.29] Health Maintenance Topic Date Due Hepatitis C Antibody Never done CRC Screening Never done Pneumococcal Vaccine(s) (2 - PCV) 03/22/2018 COVID-19 Vaccine (3 - Booster for Moderna series) 09/07/2021 Shingles (RZV) Vaccine (1 of 2) 2009 Microalbumin 10/02/2022 Lipid Profile 10/02/2022 Eye Exam 11/07/2022 Hemoglobin A1C 02/13/2023 Basic Metabolic Panel 09/11/2023 Foot Exam 10/03/2023 Tetanus (Td or Tdap) Booster 12/07/2025 Influenza Vaccine Completed Tdap Booster Completed HIV Test Discontinued Vitamin B12 Discontinued Current Outpatient Medications Medication Sig Dispense Refill Aspirin Low Dose 81 MG tablet Take 81 mg by mouth 2 times daily. docusate sodium (COLACE) 100 MG capsule TAKE 1 CAPSULE BY MOUTH TWICE DAILY NEEDED FOR CONSTIPATION Acetaminophen Extra Strength 500 MG tablet Take 1,000 mg by mouth every 8 hours as needed. vitamin C (ASCORBIC ACID) 500 MG tablet TAKE 1 TABLET BY MOUTH TWICE DAILY WITH MEALS FOR 27 DOSES esomeprazole (NEXIUM) 40 MG capsule TAKE 1 CAPSULE DAILY 30 MINUTES BEFORE BREAKFAST 90 Capsule 3 rosuvastatin (CRESTOR) 10 MG tablet TAKE 1 TABLET DAILY 90 Tablet 3 metformin (GLUCOPHAGE) 500 MG tablet TAKE 1 TABLET TWICE A DAY WITH MEALS 180 Tablet 3 amlodipine-benazepril (LOTREL) 10-20 MG per capsule TAKE 1 CAPSULE DAILY 90 Capsule 3 Anoro Ellipta 62.5-25 MCG/ACT AEPB inhalation powder USE 1 INHALATION DAILY 60 Each 3 baclofen (LIORESAL) 10 MG tablet Take 10 mg by mouth every 8 hours as needed. No current facility-administered medications for this visit. Review of Systems Physical Exam Constitutional: General: He is not in acute distress. Appearance: Normal appearance. He is normal weight. He is not ill-appearing or toxic-appearing. HENT: Head: Normocephalic. Right Ear: Tympanic membrane, ear canal and external ear normal. Left Ear: Tympanic membrane, ear canal and external ear normal. Nose: Nose normal. No congestion or rhinorrhea. Mouth/Throat: Pharynx: Oropharynx is clear. No oropharyngeal exudate or posterior oropharyngeal erythema. Eyes: General: Right eye: No discharge. Left eye: No discharge. Extraocular Movements: Extraocular movements intact. Conjunctiva/sclera: Conjunctivae normal. Pupils: Pupils are equal, round, and reactive to light. Neck: Vascular: No carotid bruit. Cardiovascular: Rate and Rhythm: Normal rate and regular rhythm. Pulses: Normal pulses. Heart sounds: Normal heart sounds. No murmur heard. Pulmonary: Effort: Pulmonary effort is normal. Breath sounds: Normal breath sounds. Abdominal: General: Abdomen is flat. Bowel sounds are normal. There is no distension. Palpations: Abdomen is soft. There is no mass. Tenderness: There is no abdominal tenderness. There is no right CVA tenderness or left CVA tenderness. Musculoskeletal: General: No swelling, tenderness or deformity. Cervical back: Normal range of motion and neck supple. No muscular tenderness. Right lower leg: No edema. Left lower leg: No edema. Lymphadenopathy: Cervical: No cervical adenopathy. Skin: General: Skin is warm and dry. Coloration: Skin is not jaundiced or pale. Neurological: General: No focal deficit present. Mental Status: He is alert and oriented to person, place, and time. Cranial Nerves: No cranial nerve deficit. Sensory: No sensory deficit. Motor: No weakness. Gait: Gait normal. Deep Tendon Reflexes: Reflexes normal. Psychiatric: Mood and Affect: Mood normal. Thought Content: Thought content normal. Judgment: Judgment normal. Assessment and Plan: Roberto was seen today for complete exam. Diagnoses and all orders for this visit: Annual physical exam Vitamin D deficiency - VITAMIN D, 25-HYDROXY B12 deficiency - VITAMIN B12 (CYANOCOBALAMIN) Essential hypertension, benign Type 2 diabetes mellitus without complication, without long-term current use of insulin (HCC) - MICROALBUMIN, URINE Encounter for long-term (current) use of medications Pure hypercholesterolemia - FULL LIPID PROFILE - TSH Screening for malignant neoplasm of prostate Need for hepatitis C screening test - HEPATITIS C ANTIBODY Identification was verified by patient verbalizing his name and date of . Patient at risk for falls:No Falls Risk protocol implemented: No documented in this encounter [facility] 10-03-2022 Telephone encounter Note What is the need: Situation: Roberto Osborn's calling Background: states she if faxing lab results done while Roberto was in the hospital Assessment: she is faxing results from CBC, BMP, Iron Study and HgA1C Recommendation: is requesting that these labs not be redrawn if possible HgA1c CBC BMP Iron study [facility] 10-03-2022 Miscellaneous Notes What is the need: Situation: Roberto Osborn's calling Background: states she if faxing lab results done while Roberto was in the hospital Assessment: she is faxing results from CBC, BMP, Iron Study and HgA1C Recommendation: is requesting that these labs not be redrawn if possible HgA1c CBC BMP Iron study documented in this encounter [facility] 10-02-2022 Note HNO ID: [id number] Author: Tre Go PT, DPT Service: ? Author Type: Physical Therapist Type: Progress Notes Filed: 10/02/2022 2:17 PM Note Text: Episode Visit Count: 1 Therapist That Will Accept/Oversee The Plan Of Care: Tre Go Start of Care Date: 10/02/22 Onset Date: 09/10/22 Patient Identified by Name and Date of : Yes REHABILITATION AND SPORTS THERAPY PHYSICAL THERAPY EVALUATION PLAN OF CARE: Assessment: Roberto Osborn SR presents s/p R TKR on 09/10/2022 secondary to OA. Pt presents with classical signs and sxs associated with this surgery including diffuse knee pain/swelling, decreased knee ROM/mobility, decreased LE strength, LE stabilization deficits, and dysfunctional movement patterns. As a result of pain/sxs, pt has decreased tolerance for mobility tasks, ADLs, and occupational demands. 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 Based on history , examination(knee, mobility, ADLs, occupational), presentation and clinical reasoning pt is appropriate for low complexity evaluation. Pt will benefit from skilled physical therapy to address impairments, manual therapy techniques, dynamic balance training ,and functional training to decrease pain/sxs to minimize functional limitations. . PROMIS? (Patient-Reported Outcomes Measurement Information System) scores were reviewed and physical function domain identified as a rehabilitation concern. Prognosis for therapy is Good due to: current objective clinical presentation . Goals for Episode of Care: created on 10/02/22 through 11/01/22 Patient will improve R knee flexion ROM to > 115 ? and extension ROM to neutral Patient will improve R Knee strength to symmetrical to contralateral side -Normal Gait -Reciprocal Stair Negotiation Emery in home exercise program. Patient will decrease pain rating by 2 points to meet minimal clinical important difference for numeric pain rating scale. Patient Goals: decrease pain, return to work, improve performance with mobility tasks. Planned Interventions, Frequency, and Duration: Current Frequency: 2x/week Duration: 4 weeks Total Number of Visits Planned: 8 Planned Treatment Interventions: Therapeutic exercise (58823), Neuromuscular re-education (98070), Manual therapy (89388), Therapeutic activities (83639), Self-shelter management (56368), Gait Training (29260) Patient demonstrates good understanding of plan of care and treatment. The above goals and plan of care were discussed and agreed upon by patient/family. SUBJECTIVE: Roberto Osborn SR is a 62 year old male seen today for R knee TKR secondary to OA. Pt had home health PT upon D/C from hospital. 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 Pt has hx of L TKR ~10 years ago. Pt used crutches initially but has since weaned down to cane. Patient Goals: decrease pain, return to work, improve performance with mobility tasks. Functional Limitations: Comments Functional Limitation Comments: walking, stairs, squatting, occupational demands Prior Level of Function: Independent without limitations Home Environment Home Type: Multi-Level (bath second floor, bed second floor, half bath first floor) Entry To Home: No Stairs Intake Information: Prescription present Previous Treatment: Home Therapy , Surgery , Ice , Pain meds (tylenol) Falls Interview: No positive findings with falls interview Pain: Pain Pain Level: 5 Pain Location: Knee - Right Description: Aching Frequency: Continuous Post Treatment Pain Post Treatment Pain Level: No Change PROMIS Scales Higher is Better 09/04/2016 08/09/2022 10/01/2022 Phys Func - Score - - 28 (severe dysfunction) Phys Func - Percentile - - 1 % GH Physical - Score - 44.9 (Good) - GH Physical - Percentile - 31 % - GH Mental - Score - 48.3 (Very Good) - GH Mental - Percentile 43 % 43 % - Self-Eff Symptom - Score - - 51 (Average) Self-Eff Symptom - Percentile - - 54 % T-scores: mean of general population = 50. 5 points is clinically meaningfully difference Percentiles provide an indication of how the patient's score ranks in relation to the general population. Higher percentile rankings indicate better function/quality of life. 50th percentile is the average of the general population and indicates half of respondents had a worse score. T-scores: mean of general population = 50. 5 points is clinically meaningfully difference Percentiles provide an indication of how the patient's score ranks in relation to the general population. Higher percentile rankings indicate better function/quality of life. 50th percentile is the average of the general population and indicates half of respondents had a worse score. OBJECTIVE MEASURES WITH LEVEL OF FUNCTION: Posture / Alignment R LE Anatomical Alignment Weight-Bearing: R Genu varus Knee Observations R Knee Presents with: Swelling, Warmth, Incision R Swelling: m (more content not included)... [facility] 10-02-2022 History of Present illness Narrative Episode Visit Count: 1 Therapist That Will Accept/Oversee The Plan Of Care: Tre Go Start of Care Date: 10/02/22 Onset Date: 09/10/22 Patient Identified by Name and Date of : Yes [facility]AB[facility]IT[facility] SPORTS THERAPY PHYSICAL THERAPY EVALUATION PLAN OF CARE: Assessment: Roberto Osborn SR presents s/p R TKR on 09/10/2022 secondary to OA. Pt presents with classical signs and sxs associated with this surgery including diffuse knee pain/swelling, decreased knee ROM/mobility, decreased LE strength, LE stabilization deficits, and dysfunctional movement patterns. As a result of pain/sxs, pt has decreased tolerance for mobility tasks, ADLs, and occupational demands. 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 Based on history , examination(knee, mobility, ADLs, occupational), presentation and clinical reasoning pt is appropriate for low complexity evaluation. Pt will benefit from skilled physical therapy to address impairments, manual therapy techniques, dynamic balance training ,and functional training to decrease pain/sxs to minimize functional limitations. . PROMIS (Patient-Reported Outcomes Measurement Information System) scores were reviewed and physical function domain identified as a rehabilitation concern. Prognosis for therapy is Good due to: current objective clinical presentation . Goals for Episode of Care: created on 10/02/22 through 11/01/22 Patient will improve R knee flexion ROM to > 115 and extension ROM to neutral Patient will improve R Knee strength to symmetrical to contralateral side -Normal Gait -Reciprocal Stair Negotiation Emery in home exercise program. Patient will decrease pain rating by 2 points to meet minimal clinical important difference for numeric pain rating scale. Patient Goals: decrease pain, return to work, improve performance with mobility tasks. Planned Interventions, Frequency, and Duration: Current Frequency: 2x/week Duration: 4 weeks Total Number of Visits Planned: 8 Planned Treatment Interventions: Therapeutic exercise (70996), Neuromuscular re-education (51836), Manual therapy (79465), Therapeutic activities (14708), Self-shelter management (11661), Gait Training (88663) Patient demonstrates good understanding of plan of care and treatment. The above goals and plan of care were discussed and agreed upon by patient/family. SUBJECTIVE: Roberto Osborn SR is a 62 year old male seen today for R knee TKR secondary to OA. Pt had home health PT upon D/C from hospital. 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 Pt has hx of L TKR ~10 years ago. Pt used crutches initially but has since weaned down to cane. Patient Goals: decrease pain, return to work, improve performance with mobility tasks. Functional Limitations: Comments Functional Limitation Comments: walking, stairs, squatting, occupational demands Prior Level of Function: Independent without limitations Home Environment Home Type: Multi-Level (bath second floor, bed second floor, half bath first floor) Entry To Home: No Stairs Intake Information: Prescription present Previous Treatment: Home Therapy , Surgery , Ice , Pain meds (tylenol) Falls Interview: No positive findings with falls interview Pain: Pain Pain Level: 5 Pain Location: Knee - Right Description: Aching Frequency: Continuous Post Treatment Pain Post Treatment Pain Level: No Change PROMIS Scales Higher is Better 09/04/2016 08/09/2022 10/01/2022 Phys Func - Score - - 28 (severe dysfunction) Phys Func - Percentile - - 1 % GH Physical - Score - 44.9 (Good) - GH Physical - Percentile - 31 % - GH Mental - Score - 48.3 (Very Good) - GH Mental - Percentile 43 % 43 % - Self-Eff Symptom - Score - - 51 (Average) Self-Eff Symptom - Percentile - - 54 % T-scores: mean of general population = 50. 5 points is clinically meaningfully difference Percentiles provide an indication of how the patient's score ranks in relation to the general population. Higher percentile rankings indicate better function/quality of life. 50th percentile is the average of the general population and indicates half of respondents had a worse score. T-scores: mean of general population = 50. 5 points is clinically meaningfully difference Percentiles provide an indication of how the patient's score ranks in relation to the general population. Higher percentile rankings indicate better function/quality of life. 50th percentile is the average of the general population and indicates half of respondents had a worse score. OBJECTIVE MEASURES WITH LEVEL OF FUNCTION: Posture / Alignment R LE Anatomical Alignment Weight-Bearing: R Genu varus Knee Observations R Knee Presents with: Swelling, Warmth, Incision R Swelling: mild R Incision: mild swelling to margins LE PROM R Knee Extension: -12 Degrees R Knee Flexion: 93 Degrees L Knee Extension: 0 Degrees L Knee Flexion: 125 Degrees LE Strength R Knee Extension (L3): 3+/5 R Knee Flexion: 4/5 L Knee Extension (L3): 5/5 L Knee Flexion: 5/5 Functional Strength Functional Strength: squat:~50 degrees, increased pain Gait Gait Observation: slight R LE antalgia, cane in L UE, reciprocal pattern, functional speed, decreased knee extension on R in late stance Stairs: step to pattern, ascends with L LE leading, descends with R LE leading Balance Static Standing Balance: Single Leg Stance Single Leg Stance: R- < 1-2 seconds, L- < 1 second Education: Education Learning Preferences: Demonstration, Explanation, Performance, Printed Materials Barriers: None Learning/educational needs: Home exercise program, Plan of Care Education Provided: Yes, see treatment interventions for education provided Education Provided To: Patient Education Mode/Type: Demonstration, Explanation/Discussion, Literature/Printed Materials, Performance Response to Education/Teach Back: States/Identifies TREATMENT: PT Treatment Interventions: Therapeutic Exercise Evaluation Therapeutic Exercise: 1: *Knee flexion AAROM, supine with stability ball, 3 sec hold, 2 x 15 2: *knee extension stretch, x 2 min, #2.5 3: *quad set, 5 sec hold x 15 4: *ASLR, x 15 Skilled Intervention: Patient was educated in proper exercise technique and purpose for exercises. Reviewed and educated patient on additions/changes for home exercise program as above (*). Billing * Evaluation Low Complexity: 1 Unit Therapeutic Exercise Treatment Minutes: 15 Total Treatment Time Minutes (timed/untimed): 39 Tre Go PT, DPT documented in this encounter [facility] 09-30-2022 Miscellaneous Notes SITUATION: Patient reports the following since the last homecare visit: medications/allergies--no changes, no fall. patient reports compliance with knee exercises. BACKGROUND: Diagnoses (reason for Home Care): Primary osteoarthritis right knee S/P ROBOTIC ASSISTED TOTAL KNEE ARTHROPLASTY (Right) 09/10/22. Weight Bearing/Precaution Changes: no changes ASSESSMENT: AROM: RT knee: 2-90 degrees. Focus of visit: knee ROM. Physical therapy discharged: goals achieved. Functional performance at discharge - bed mobility independent, transfers independent, ambulation independent and stairs independent. Plan of care, goals, and discharge reviewed and agreed upon with patient and/or caregiver. RECOMMENDATION: Patient discharged from home health services. Instructions to include:begin outpatient therapy. See intervention summary for intervention/education details. documented in this encounter [facility] 09-26-2022 Miscellaneous Notes SITUATION: patient reports the following since the last homecare visit: medications/allergies--no changes, no fall. patient reports he had a f/u with Manjeet yesterday. BACKGROUND: Diagnoses (reason for Home Care): Primary osteoarthritis right knee S/P ROBOTIC ASSISTED TOTAL KNEE ARTHROPLASTY (Right) 09/10/22. Weight Bearing/Precaution Changes: no changes ASSESSMENT: Patient now 16 days post op. AROM: RT knee: 4-79 degrees. Focus of visit knee ROM Plan of care, goals, and visit frequency reviewed and agreed upon with patient and/or caregiver. Current Discharge Plan: outpatient rehab Anticipate discharge by 10-05-22. RECOMMENDATION: Next visit to focus on knee ROM. See intervention summary for intervention/education details. documented in this encounter [facility] 09-25-2022 Note HNO ID: [id number] Author: Matthieu Esparza PA-C Service: ? 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 Post-operative course has been without complication. No readmissions. Subjective: Patient reports 6/10 pain. Overall is doing well. Using crutches ambulatory aid. Not taking any opioid pain medication. Patients rates his condition as improving. Reports compliance with DVT ppx. Participating in home PT. Objective: RLE: Ambulates with crutches Incision well-approximated, no drainage, well-healing. Suture tails trimmed today. Knee ROM 5 - 75 degrees Distally DP/PT palpable Distally SILT S/S/SP/DP/T intact at baseline Distally DF/EHL/PF motor intact at baseline Negative juan/calf tenderness Xrays: Well-positioned total knee replacement in appropriate alignment with no evidence of loosening Assessment and Plan: Roberto Osborn SR is here for a first post-op appointment, overall doing well - continue ice, rest, and use of non-narcotic analgesia as needed - reviewed antibiotic prophylactic protocols - discussed home exercises and therapy - continue ASA DVT prophylaxis for 4 weeks total - WBAT on operative extremity - discussed driving requirement: 6 weeks post-op, off narcotic pain medication, adequate brake time - follow up in 4 weeks for repeat clinical evaluation with Dr. Carpenter Normal post-operative course discussed with patient. Patient reassured and supported. All questions answered. Matthieu Esparza PA-C [facility] 09-25-2022 Note HNO ID: [id number] Author: GERMAINE Sparrow Service: Radiology Author Type: Technologist Type: Progress Notes Filed: 09/25/2022 10:04 AM Note Text: Radiology Service Progress Note PATIENT NAME: Roberto Osborn SR DATE OF SERVICE: September 25, 2022 TIME: 10:04 AM PATIENT IDENTITY VERIFICATION COMPLETED USING TWO (2) IDENTIFIERS: Name and Date of confirmed by patient verbally. FALL SCREENING: Has the patient had 2 falls in the last year or 1 fall with injury or currently using an Ambulatory Assistive Device (Walker, Cane, Wheelchair, Crutches, etc.)? Yes, Patient High Risk for Falls What interventions were put in place to prevent falls during this visit? Instructed Patient to Remain Seated (Not on Exam Table) Until Exam and Increased Observations by Caregivers PATIENT GENDER DATA: Male PATIENT RELEVANT IMPLANT DATA REVIEWED: Not Applicable RADIOLOGY DEPARTMENT: General X-ray: Exam(s) Completed: Lower Extremity X-Ray(s): Knee, AP / Lat / Merchant Right and Wt. Bearing PERIPHERAL IV DATA: Not applicable SIGNED BY: GERMAINE Sparrow September 25, 2022 10:04 AM [facility] 09-25-2022 History of Present illness Narrative Post-op Office Visit Roberto Osborn SR 62 year old September 25, 2022 10:08 AM Surgery Date: 09/10/2022 History: Roberto Osborn SR is now 2 weeks out from right TKA. Post-operative course has been without complication. No readmissions. Subjective: Patient reports 6/10 pain. Overall is doing well. Using crutches ambulatory aid. Not taking any opioid pain medication. Patients rates his condition as improving. Reports compliance with DVT ppx. Participating in home PT. Objective: RLE: Ambulates with crutches Incision well-approximated, no drainage, well-healing. Suture tails trimmed today. Knee ROM 5 - 75 degrees Distally DP/PT palpable Distally SILT S/S/SP/DP/T intact at baseline Distally DF/EHL/PF motor intact at baseline Negative juan/calf tenderness Xrays: Well-positioned total knee replacement in appropriate alignment with no evidence of loosening Assessment and Plan: Roberto Osborn SR is here for a first post-op appointment, overall doing well - continue ice, rest, and use of non-narcotic analgesia as needed - reviewed antibiotic prophylactic protocols - discussed home exercises and therapy - continue ASA DVT prophylaxis for 4 weeks total - WBAT on operative extremity - discussed driving requirement: 6 weeks post-op, off narcotic pain medication, adequate brake time - follow up in 4 weeks for repeat clinical evaluation with Dr. Carpenter Normal post-operative course discussed with patient. Patient reassured and supported. All questions answered. Matthieu Esparza PA-C documented in this encounter [facility] 09-25-2022 History of Present illness Narrative Radiology Service Progress Note PATIENT NAME: Roberto Osborn SR DATE OF SERVICE: September 25, 2022 TIME: 10:04 AM PATIENT IDENTITY VERIFICATION COMPLETED USING TWO (2) IDENTIFIERS: Name and Date of confirmed by patient verbally. FALL SCREENING: Has the patient had 2 falls in the last year or 1 fall with injury or currently using an Ambulatory Assistive Device (Walker, Cane, Wheelchair, Crutches, etc.)? Yes, Patient High Risk for Falls What interventions were put in place to prevent falls during this visit? Instructed Patient to Remain Seated (Not on Exam Table) Until Exam and Increased Observations by Caregivers PATIENT GENDER DATA: Male PATIENT RELEVANT IMPLANT DATA REVIEWED: Not Applicable RADIOLOGY DEPARTMENT: General X-ray: Exam(s) Completed: Lower Extremity X-Ray(s): Knee, AP / Lat / Merchant Right and Wt. Bearing PERIPHERAL IV DATA: Not applicable SIGNED BY: GERMAINE Sparrow September 25, 2022 10:04 AM documented in this encounter [facility] 09-23-2022 Miscellaneous Notes SITUATION: only patient present during today's visit. patient reports the following since the last homecare visit: medications/allergies--no changes, no fall. patient reports compliance with HEP. BACKGROUND: Diagnoses (reason for Home Care): Primary osteoarthritis right knee S/P ROBOTIC ASSISTED TOTAL KNEE ARTHROPLASTY (Right) 09/10/22. Weight Bearing/Precaution Changes: no changes ASSESSMENT: Patient now 13 days post op. AROM: RT knee: 5-78 degrees. Focus of visit knee ROM. Plan of care, goals, and visit frequency reviewed and agreed upon with patient and/or caregiver. Current Discharge Plan: outpatient rehab Anticipate discharge by 10-05-22. RECOMMENDATION: Next visit to focus on knee ROM. See intervention summary for intervention/education details. documented in this encounter [facility] 09-20-2022 Miscellaneous Notes SITUATION: Patient reports the following since the last homecare visit: medications/allergies--no changes, no fall. patient reports compliance with knee exercises. BACKGROUND: Diagnoses (reason for Home Care): Primary osteoarthritis right knee S/P ROBOTIC ASSISTED TOTAL KNEE ARTHROPLASTY (Right) 09/10/22. Weight Bearing/Precaution Changes: no changes. ASSESSMENT: AROM: RT knee: 5-75 degrees. Patient now 10 days post op. Focus of visit: knee ROM. Plan of care, goals, and visit frequency reviewed and agreed upon with patient and/or caregiver. Current Discharge Plan: outpatient rehab Anticipate discharge by 10-05-22. RECOMMENDATION: Next visit to focus on knee ROM. See intervention summary for intervention/education details. documented in this encounter [facility] 09-18-2022 Miscellaneous Notes SITUATION: Patient reports the following since the last homecare visit: medications/allergies--no changes, no fall. patient reports there is no incision drainage. BACKGROUND: Diagnoses (reason for Home Care): Primary osteoarthritis right knee S/P ROBOTIC ASSISTED TOTAL KNEE ARTHROPLASTY (Right) 09/10/22 Weight Bearing/Precaution Changes: no changes. ASSESSMENT: AROM: RT knee: 5-65 degrees. Focus of visit: knee ROM, gait training. Plan of care, goals, and visit frequency reviewed and agreed upon with patient and/or caregiver. Current Discharge Plan: outpatient rehab Anticipate discharge by 10-05-22. RECOMMENDATION: Next visit to focus on knee ROM. See intervention summary for intervention/education details. documented in this encounter [facility] 09-16-2022 Miscellaneous Notes SITUATION: Only patient present during today's visit. patient reports the following since the last homecare visit: medications/allergies--no changes, no fall. BACKGROUND: Diagnoses (reason for Home Care): Primary osteoarthritis right knee S/P ROBOTIC ASSISTED TOTAL KNEE ARTHROPLASTY (Right) 09/10/22. Weight Bearing/Precaution Changes: no changes ASSESSMENT: Patient now 6 days post op. AROM: RT knee: 5-55 degrees. Focus of visit: gait training, initiated small knee ROM. Plan of care, goals, and visit frequency reviewed and agreed upon with patient and/or caregiver. Current Discharge Plan: outpatient rehab Anticipate discharge by 10-05-22. RECOMMENDATION: Next visit to focus on gait training, edema reduction. See intervention summary for intervention/education details. documented in this encounter [facility] 09-14-2022 Miscellaneous Notes Patient requested to cancel PT visit today due to having to be somewhere at noon and not sure when he will be back. Patient stated he was doing ok and requested Friday for next PT visit. documented in this encounter [facility] 09-12-2022 Miscellaneous Notes Kirill PT at [facility]. Pic of drainage uploaded in [employer]. Per Manjeet GARCIA, remove silverlon and use ABD and blanca wrap. Hold ROM for weekend. Call back if worsens or needs to be seen. documented in this encounter [facility] 09-12-2022 Miscellaneous Notes SITUATION: spouse present during today's visit. patient reports he had his RT knee replaced on Friday by Dr Carpenter. States he came home yesterday. Has been using crutches since surgery. States he noticed a lot of blood through the bandage yesterday. BACKGROUND: Diagnoses (reason for Home Care): Primary osteoarthritis right knee S/P ROBOTIC ASSISTED TOTAL KNEE ARTHROPLASTY (Right) 09/10/22. Past Medical History: Htn (Hypertension) Lateral Meniscal Tear Medial Meniscus Tear Knee Pain Degenerative Arthritis of Knee Gerd (Gastroesophageal Reflux Disease) Knee Pain, Left Left Leg Weakness Stiffness of Knee Joint Gait Abnormality Type 2 Diabetes Mellitus Without Complication, With out Long-Term Current Use of Insulin (Hcc) Pure Hypercholesterolemia Essential Hypertension, Benign Allergic Rhinitis Class 1 Obesity With Body Mass Index (Bmi) of 33.0 to 33.9 in Adult Former Smoker Weight Bearing or Surgical Precautions: WBAT ASSESSMENT: Patient evaluated by [facility] physical therapy. Reviewed and explained homecare services. Plan of care, goals, and visit frequency developed, reviewed, and agreed upon with patient and/or caregiver. Patient Goal: walk pain free Patient will benefit from continued physical therapy to address the following deficits: strength, balance, gait, knee joint ROM, transfers and stair negotiation. Current Discharge Plan: outpatient rehab. Anticipate discharge by 10-05-22. RECOMMENDATION: Next visit to focus on: transfer training, gait training, leg strengthening, edema reduction. Agreeable to PT. See intervention summary for intervention/education details. PT spoke with Rony Doyle regarding bloody Silverlon bandage. Manjeet was sitting next to Rony and he advised we remove the bandage today and cover with ABD and blanca wrap. Manjeet recommended we limit the knee flexion thru the weekend. PT placed ABD bandage and covered with blanca wrap. Patient verbally agrees to allow [facility] to obtain an image via photography. documented in this encounter [facility] 09-11-2022 Miscellaneous Notes Welcome Home Call: a. Date and Time: 11:21 AM 09/11/2022 b. Contact name/relationship: PatientRoberto c. Have you been active with any Home Care company in the last 60 days(such as help with bathing, filling medications, checking your blood pressure) ? No. d. Was patient given Flu shot this Season (After Apr,): Yes: Location: , Date received: 08/10/22 e. [facility] will be providing your care, are you agreeable to starting these services? YES (yes or no) f. Do you have any upcoming appointments in the next few days, or restrictions to your schedule? NO g. Caregiver: Patient is able to manage care independently h. Confirmed Visited Location and preferred #: [id number] [place] [id number] Please keep our your medications both over the counter and prescribed out for the home care to review, your hospital discharge instructions and write down any questions you might have. In order to maintain a safe environment for our caregivers, [facility] [facility] requires any animals or weapons present in the home be located in a secured location. Our clinicians will call you the night before or the morning of the appointment. Their # may come up restricted but they'll leave a VM for you. In case you have any questions or concerns in the meantime, our # is [phone], option [phone] Thank you for your time and have a great day. FILIBERTO Nicholson documented in this encounter [facility] 09-11-2022 Note HNO ID: [id number] Author: Matthieu Esparza PA-C Service: Orthopaedic Surgery Author Type: Physician Sheet Metal Fabricator Type: Progress Notes Filed: 09/11/2022 8:26 AM Note Text: POSTOP NOTE ORTHOPAEDIC SURGERY SERVICE DATE: 09/11/2022 SERVICE TIME: 8:25 AM IMPRESSION/PLAN: S/P Procedure(s) (LRB): ROBOTIC ASSISTED TOTAL KNEE ARTHROPLASTY (Right) on 09/10/2022 Physical Therapy recommending home PT WBAT RLE DVT prophylaxis: Intermittent pneumatic compression device (IPCD) and ASA Pain control Case Management for discharge planning Plan of care discussed with: Provider, RN, Patient. POST OPERATIVE COMPLICATIONS: Complicated by uneventful/none SUBJECTIVE: Patient states that they are comfortable. Well Controlled knee pain. Denies incisional pain. OBJECTIVE: VITAL SIGNS: BP 137/75 Pulse 85 Temp 37.2 ?C (99 ?F) (Oral) Resp 16 Ht 177.8 cm (5' 10) Wt 109 kg (240 lb 4.8 oz) SpO2 95% BMI 34.48 kg/m? INTAKE AND OUTPUT: Intake/Output Summary (Last 24 hours) at 09/11/2022 0825 Last data filed at 09/11/2022 0600 Gross per 24 hour Intake 3383 ml Output 3275 ml Net 108 ml LABS: Hemoglobin Date Value Ref Range Status 09/11/2022 12.0 (L) 13.0 - 17.0 g/dL Final 09/10/2022 12.1 (L) 13.0 - 17.0 g/dL Final Hematocrit Date Value Ref Range Status 09/11/2022 35.7 (L) 39.0 - 51.0 % Final 09/10/2022 36.0 (L) 39.0 - 51.0 % Final Platelet Count Date Value Ref Range Status 09/11/2022 287 150 - 400 k/uL Final 08/16/2022 314 150 - 400 k/uL Final WBC Date Value Ref Range Status 09/11/2022 11.09 (H) 3.70 - 11.00 k/uL Final 08/16/2022 10.63 3.70 - 11.00 k/uL Final Creatinine Date Value Ref Range Status 09/11/2022 0.54 (L) 0.73 - 1.22 mg/dL Final 08/16/2022 0.56 (L) 0.73 - 1.22 mg/dL Final Potassium Date Value Ref Range Status 09/11/2022 3.7 3.7 - 5.1 mmol/L Final 08/16/2022 4.3 3.7 - 5.1 mmol/L Final VTE Prophylaxis: Active VTE Risk Category Order: 09/10/22 1130 VTE RISK CATEGORY: SURGICAL HIGH RISK ([place]) Active VTE Medication Orders: Anticoagulant AND Antiplatelet Medications (From admission, onward) Start Dose Route Frequency Last Action Ordered Stop 09/11/22 0900 aspirin, enteric coated 81 mg tab(s) (Surgical Risk Categories) 81 mg ORAL 2 TIMES DAILY Ordered 09/10/22 1124 -- Active VTE Prophylaxis Orders: 09/10/22 1130 PNEUMATIC COMPRESSION STOCKINGS ([place]) 09/10/22 1130 ACTIVITY - MOBILIZE PATIENT ([place]) PHYSICAL EXAMINATION: Right Lower Extremity: Dorsalis pedis pulses palpable. Posterior tibial pulses palpable. Dorsi flexion 5/5. Plantar flexion 5/5. Extensor hallucis extension: 5/5. Sensory intact to light touch L4-S1. Dressing clean, dry, and intact. Surgical site no drainage and Silverlon intact. Thigh is not swollen, calf is not tender, no signs of DVT or infection Problem Review and Assessment: Skin and Abdominal Wall: Patient monitored, no new events overnight Cardiovascular and Vascular: Patient monitored, no new events overnight Respiratory: Patient monitored, no new events overnight Endocrine and Metabolic: Patient monitored, no new events overnight Gastrointestinal: Patient monitored, no new events overnight Genitourinary and Nephrology: Patient monitored, no new events overnight Behavioral, Cerebrovascular and Nervous: Patient monitored, no new events overnight Infectious: Patient monitored, no new events overnight DATA: Diagnostic tests reviewed for today's visit: Most recent labs and imaging results. SIGNATURE: Matthieu Esparza PA-C PATIENT NAME: Roberto Osborn SR DATE: September 11, 2022 TIME: 8:25 AM The patient has undergone major orthopedic surgery and participating in therapy. Pain cannot be managed within an average of 30 MED per day. Patient requiring average of higher than 30 MED per day in order to control pain and allow patient to actively and safely participate in therapy and this is the lowest dose consistent with patient's medical condition. Non-narcotic medication options have been discussed. In addition, the patient has been advised of the benefits and risks of the opioid (including the potential for addiction). Patient demonstrated understanding of risks versus benefits. [facility] 09-10-2022 Note HNO ID: [id number] Author: Adryan Payton MD Service: Anesthesiology Author Type: Anesthesiologist Type: Anesthesia Procedure Notes Filed: 09/10/2022 2:45 PM Note Text: ANESTHESIOLOGY PROCEDURE NOTE Peripheral Nerve Block General Information Procedure Start Time/Medication Administration: 09/10/2022 7:22 AM Procedure End time: 09/10/2022 7:26 AM Patient location during procedure: pre-op Timeout Performed Pre-procedure: timeout performed Consent Obtained: Yes Patient identity confirmed: arm band Reason for block: post-op pain management/at surgeon's request Staffing Anesthesiologist: Adryan Payton MD Performed by: anesthesiologist Preparation Sterility Preparation: hand hygiene performed prior to procedure, sterile gloves, drapes, and procedure tray, surgical cap used, mask used, sterile drape used during line insertion, skin prep agent completely dried prior to procedure Site Prep: Chloraprep Pre-Procedure Neuro Exam Location: RLE Sensory: intact Motor: intact Procedure Details Patient Position: supine Monitoring: Pulse OX, EKG and NIBP Block Type Lower Extremity: distal femoral (adductor canal) Laterality: right Injection Technique: single-shot Ultrasound Guided: Yes Image in Chart: yes Local Infiltration: Yes Needle Needle Gauge: 21 G Needle Length: 83 mm Needle Localization: ultrasound Assessment Injection assessment: negative aspiration, no paresthesia on injection, incremental injection and local visualized surrounding nerve on ultrasound Post-Procedure Neuro Exam Expected Regional Anesthesia: Yes Medications Administered bupivacaine (PF) 0.5 % (5 mg/mL) injection - peripheral nerve block 20 mL - 09/10/2022 7:22:00 AM SIGNATURE: Adryan Payton MD PATIENT NAME: Roberto Osborn SR DATE: September 10, 2022 TIME: 2:44 PM CSN: [id number] [facility] 09-10-2022 Note HNO ID: [id number] Author: Indio Cho APRN.VENDING ATTENDANT Service: Anesthesiology Author Type: Nurse Mine Foreman Type: Anesthesia Procedure Notes Filed: 09/10/2022 8:10 AM Note Text: ANESTHESIOLOGY PROCEDURE NOTE Spinal Block General Information Procedure Start Time/Medication Administration: 09/10/2022 7:52 AM Patient location during procedure: OR Timeout Performed Pre-procedure: timeout performed Consent Obtained: Yes Patient identity confirmed: arm band, care steam service inspector and patient Reason for Block: primary surgical anesthetic Staffing VENDING ATTENDANT: Inido Cho APRN.VENDING ATTENDANT Performed by: VENDING ATTENDANT Preparation Sterility Preparation: hand hygiene performed prior to procedure, sterile gloves, drapes, and procedure tray, surgical cap used, mask used, sterile drape used during line insertion, skin prep agent completely dried prior to procedure Site Prep: Betadine Procedure Details Patient Position: sitting Ultrasound Guided: No Monitoring: Pulse Ox and EKG Approach: Midline Location: L3-4 Injection Technique: single-shot Needle Needle Type: pencil-tip Needle Gauge: 22 G Needle Length: 3.5 in Assessment Sensory Level: T6 Events: tolerated well Comments two attempts d/t pt. hx of lumbar surgery - 1st attempt with introducer and 25g francine unsuccessful - heme return, 2nd attempt with 22g francine and no introducer sucessful - easy flow/return of CSF. SIGNATURE: Indio Cho APRN.VENDING ATTENDANT PATIENT NAME: Roberto Osborn SR DATE: September 10, 2022 TIME: 8:08 AM CSN: [id number] [facility] 09-09-2022 Miscellaneous Notes called back and confirmed CT scan Patient r/s left VM for The wilmer rep said to please contact ct scan to have them redo it in the morning prior to surgery. He can try and get the information that way. This patient works [place] of [place] all week so I am assuming that is why he couldn't do it any sooner. Electronically signed by Eda Mijares [facility] [place] [facility] at 09/09/2022 2:48 PM EST Patients surgery is scheduled for tomorrow 09/10/22... not sure why the CT was done 2days before surgery... there are no openings for CT the rest of the day (I tried calling CT but no answer..) Any suggestions on what to do? CT order entered. Manjeet Esparza PA-C Patient had motion on his ct scan. Please contact his to get him rescheduled. Please place a new ct order. Electronically signed by Eda Mijares [facility] [place] at 09/09/2022 1:25 PM EST documented in this encounter [facility] 09-07-2022 Note HNO ID: [id number] Author: Shy Saha, CT Service: Radiology Author Type: Technologist Type: Progress Notes Filed: 09/07/2022 8:28 AM Note Text: Radiology Service Progress Note PATIENT NAME: Roberto Osborn SR DATE OF SERVICE: September 07, 2022 TIME: 8:28 AM PATIENT IDENTITY VERIFICATION COMPLETED USING TWO (2) IDENTIFIERS: Name and Date of confirmed by patient verbally and Name and Date of confirmed by identification band. FALL SCREENING: Has the patient had 2 falls in the last year or 1 fall with injury or currently using an Ambulatory Assistive Device (Walker, Cane, Wheelchair, Crutches, etc.)? No PATIENT GENDER DATA: Male PATIENT RELEVANT IMPLANT DATA REVIEWED: Not Applicable RADIOLOGY DEPARTMENT: CT; Exam(s) Completed: Lower extremity PERIPHERAL IV DATA: Not applicable SIGNED BY: GERMAINE Chahal September 07, 2022 8:28 AM [facility] 09-07-2022 History of Present illness Narrative Radiology Service Progress Note PATIENT NAME: Roberto Osborn SR DATE OF SERVICE: September 07, 2022 TIME: 8:28 AM PATIENT IDENTITY VERIFICATION COMPLETED USING TWO (2) IDENTIFIERS: Name and Date of confirmed by patient verbally and Name and Date of confirmed by identification band. FALL SCREENING: Has the patient had 2 falls in the last year or 1 fall with injury or currently using an Ambulatory Assistive Device (Walker, Cane, Wheelchair, Crutches, etc.)? No PATIENT GENDER DATA: Male PATIENT RELEVANT IMPLANT DATA REVIEWED: Not Applicable RADIOLOGY DEPARTMENT: CT; Exam(s) Completed: Lower extremity PERIPHERAL IV DATA: Not applicable SIGNED BY: GERMAINE Chahal September 07, 2022 8:28 AM documented in this encounter [facility] 09-03-2022 Miscellaneous Notes Type of form: Long-term Disability Form received via walk in from Dianne When form is completed, Fax form to [phone] Form has been forwarded to [facility] Dianne is wanting to grain picker the completed forms once they have been faxed please. Clemente Sauer documented in this encounter [facility] 08-22-2022 Miscellaneous Notes COVID and CT orders entered. Matthieu Esparza PA-C August 22, 2022 3:[address] self test covid order and CT scan order for Rt tka wilmer 09/10/22. Please schedule CT. Electronically signed by Eda Mijares [facility] at 08/22/2022 3:19 PM EST documented in this encounter [facility] 08-20-2022 Miscellaneous Notes TOTAL JOINT COMPLETE CARE PROGRAM PRE-OPERATIVE TEACHING Service Date: 08/20/2022 Service Time: 4:00 PM Date of : 1960 Gender: male Date of Surgery: 09/10/22 Procedure: Right Total Knee Replacement Complete Care Program was discussed with the patient: All Source Intelligence Analyst Identification: Patient identified a manager respiratory care to help when discharged to home: spouse Home Environment: Home Layout: 2 story, Entry Steps: 0, Bedroom Location: 2nd floor, Bathroom Location: 2nd floor, and tub shower. Pt owns walker, crutches, shower chair. Discussed with patient importance of attending joint education class and provided date and times of class: YES paper copy. TKA 2013 Patient received Joint Education Binder: Yes Plans discharge home with [facility]. SIGNATURE: FILIBERTO Villalobos PATIENT NAME: Roberto Osborn SR DATE: August 20, 2022 TIME: 4:00 PM documented in this encounter [facility] 08-19-2022 Note HNO ID: [id number] Author: Yanet Boyle PA-C Service: ? Author Type: Physician Sheet Metal Fabricator Type: Progress Notes Filed: 08/19/2022 8:11 AM Note Text: Lab Value Units Date High Low HB 13.7 g/dL 08/16/2022 17.0 13.0 HCT 39.9 % 08/16/2022 51.0 39.0 WBC 10.63 k/uL 08/16/2022 11.00 3.70 PLT 314 k/uL 08/16/2022 400 150 NA 137 mmol/L 08/16/2022 144 136 K 4.3 mmol/L 08/16/2022 5.1 3.7 GLUC 140 mg/dL 08/16/2022 99 74 BUN 12 mg/dL 08/16/2022 24 9 CREAT 0.56 mg/dL 08/16/2022 1.22 0.73 PTSEC No results within date range. INR No results within date range. APTT No results within date range. ALT No results within date range. AST No results within date range. TBILI No results within date range. TSH No results within date range. Lab Value Units Date High Low HCGQT No results within date range. UHCG No results within date range. HCG, BODY* No results within date range. Lab Value Units Date High Low ABORHD No results within date range. ABSCREEN No results within date range. Hemoglobin A1C (%) Date Value 08/16/2022 6.2 12/16/2008 6.6 Recent Results (from the past 8760 hour(s)) ECG COMPLETE Collection Time: 08/16/22 8:49 AM Result Value Ventricular Rate 77 Atrial Rate 77 P-R Interval 172 QRS Duration 98 QT Interval 378 QTC Calculation (Bazett) 427 Calculated P [place] 57 Calculated R [place] -3 Calculated T [place] 30 Impression NORMAL SINUS RHYTHM NORMAL ECG WHEN COMPARED WITH ECG OF 29-JUL-2014 08:31, NO SIGNIFICANT CHANGE WAS FOUND Confirmed by ELIJAH BURNS M.D. ([id number]) on 08/16/2022 2:14:14 PM Labs and ECG reviewed and accepted. Pt is optimally prepared for surgery. Yanet Boyle PA-C 08/19/2022 8:10 AM [facility] 08-16-2022 Instructions Yanet Boyle PA-C - 08/16/2022 9:07 AM EST PATIENT PREOPERATIVE INSTRUCTIONS [facility]: [phone] -- [address] [facility] [address]. Please read below carefully for your personalized instructions. Dietary Restrictions: - No solid food after midnight. - You may have 12 ounces of clear liquids (water, clear juices such as apple juice or gatorade, carbonated beverages, clear tea, black coffee, jello) until 2 hours before scheduled arrival at facility. Medications: Unless instructed differently below, stay on all of your medications until your surgery. Approved medications to take the morning of surgery with a sip of water: Crestor, Nexium, Anoro inhaler if needed. DO NOT TAKE YOUR AMLODIPINE-BENAZEPRIL THE NIGHT BEFORE OR MORNING OF SURGERY. - No diabetic medication the morning of surgery. - metformin If you take any medications for erectile dysfunction-Cialis (Tadalafil), Levitra, Staxyn (Vardenafil) Viagra (Sildenenafil please do not take these for 48 hours before surgery. If you start any new medications after today's visit, please contact the surgeon's office. Blood Thinning Medications: - Stop NSAIDS (Ibuprofen, Advil, Aleve, Motrin, Celebrex, Mobic, etc.) 7 days before surgery, as directed by your surgeon. - Stop Aspirin 7 days before surgery, as directed by your surgeon. - Stop Vitamin E, ALL multi-vitamins, herbals and dietary supplements 7 days before surgery. - You may take Tylenol (Acetaminophen) or any of your pain medications that do not contain aspirin or NSAIDS as needed. Important Reminders: - If you are prescribed inhalers for breathing, continue using them. Bring your inhalers with you. - Candy, mints, and tobacco products are NOT permitted the morning of surgery. - Hearing aids, dentures and glasses may be worn the morning of surgery. - NO jewelry, body piercings, makeup, hairpins or contacts are to be worn the day of surgery. If you develop symptoms such as a fever, cold, or flu, or have other changes to your health within TWO DAYS of scheduled surgery or the morning of surgery, please contact the surgery center above. Personal Belongings: -Please have photo ID and insurance cards. -If you do not have a copy of advance directives on file with us, please bring a copy with you on the day of surgery. - Leave ALL valuables and money at home or with family members. Arrival Time for Surgery: - The Surgery Center or hospital where you are having surgery will call the afternoon before surgery (or Friday for Friday surgery) with a scheduled arrival time. - If you have not heard by 4 pm, please contact the surgery center above. Please be aware that emergency situations arise, which may delay or change your surgical time. If this happens, we will notify you as soon as possible and regret any inconvenience. If you already have an Advance Directive, please fax a copy to [phone] or email to for it to be added to your chart. If you do not have an Advance Directive, you can find the appropriate form and more information at [email or web address]. We recommend that you complete the Advance Directive form found on the website and bring it with you the day of your surgery. It can be witnessed and scanned into your chart that day. documented in this encounter [facility] 08-15-2022 History and physical note HISTORY AND PHYSICAL EXAMINATION SERVICE DATE: 08/16/2022 SERVICE TIME: 8:56 AM PRIMARY CARE PHYSICIAN: Timothy Correa MD REASON FOR VISIT: Roberto Osborn SR is a 62 year old male who is scheduled for Procedure(s): ROBOTIC ASSISTED TOTAL KNEE ARTHROPLASTY (Right) at the request of Dr. Chika Carpenter MD for consultation. My final recommendation will be communicated back to the requesting physician by way of shared medical record or letter. Subjective The patient has the following: ACTIVE PROBLEM LIST Htn (Hypertension) Lateral Meniscal Tear Medial Meniscus Tear Knee Pain Degenerative Arthritis of Knee Gerd (Gastroesophageal Reflux Disease) Knee Pain, Left Left Leg Weakness Stiffness of Knee Joint Gait Abnormality Type 2 Diabetes Mellitus Without Complication, Without Long-Term Current Use of Insulin (Hcc) Pure Hypercholesterolemia Essential Hypertension, Benign Allergic Rhinitis Class 1 Obesity With Body Mass Index (Bmi) of 33.0 to 33.9 in Adult Former Smoker COVID-19 Immunization Status Overdue - COVID-19 VACCINE (3 - Booster for Moderna series) Overdue since 09/07/2021 07/13/2021 Imm Admin: COVID-19 original vaccine, full dose, monovalent (MODERNA) 06/05/2021 Imm Admin: COVID-19 original vaccine, full dose, monovalent (MODERNA) CHIEF COMPLAINT: right knee pain HPI: Roberto Osborn SR is a 62 year old male presenting for pre-anesthesia consultation. Pt has history of right knee pain. Pain is sharp and aching. Denies injury. Pain is worse with walking and climbing stairs. He has had injections in knee without resolution of symptoms. He reports clicking, grinding and giving way. Above procedure recommended to manage symptoms. Procedure scheduled on 09/10/2022 at [place]. REVIEW OF SYSTEMS: General: No weight loss, malaise or fevers. Neurological: No history of TIA's, stroke, STARCH TREATING ASSISTANT tumor, impaired sensorium, hemiplegia, paraplegia or quadraplegia. No neurological symptoms or problems. Respiratory: Positive for: asthma (?asthma - uses Anoro PRN, has not used in ~1 week, uses when in tete environments.) and tobacco use (former smoker). Negative for: bronchitis, COPD, current cough, home oxygen, URI < 2 weeks and obstructive sleep apnea. Cardiovascular: Positive for: hyperlipidemia and hypertension Negative for: arrhythmia, atrial fibrillation, CHF, DVT/PE, murmur/valvular heart disease, open heart surgery and valve surgery. GI: Positive for: GERD Negative for: hepatitis, irritable bowel syndrome, inflammatory bowel disease, liver disease and ETOH >2 drinks/day. : No history of dysuria, frequency or incontinence, stones or chronic kidney disease. No difficulty urinating, nocturia > 1 time per night or hematuria. Endocrine: Positive for: diabetes mellitus (A1C 7.3 in 09/2021, does not check BS at home, managed by PCP). Patient's diabetes mellitus is controlled by oral agents. Negative for: hyperthyroidism, hypothyroidism and steroid for chronic problem. Hematology: No history of bleeding or clotting disorder. Patient is not taking anti-coagulation or platelet medications. No history of hematological symptoms or problems. Oncology: No history of CA metastasis, chemo within 30 days, or radiotherapy within 90 days. No history of oncological symptoms or problems. Psych: No history of psychiatric symptoms or problems. Musculoskeletal: See HPI. Skin: Negative for lesions, rash and itching. PAST MEDICAL HISTORY Diagnosis Date Diabetes (HCC) GERD (gastroesophageal reflux disease) HTN (hypertension) Hypercholesteremia Osteoarthritis PAST SURGICAL HISTORY Procedure Laterality Date ARTHROSCOPY KNEE DIAGNOSTIC W/WO SYNOVIAL BX SPX 08/2008 Arthroscopy, knee right ARTHROSCOPY KNEE DIAGNOSTIC W/WO SYNOVIAL BX SPX 06/29/2013 Arthroscopy, knee left ARTHRP KNE CONDYLE&PLATU MEDIAL&LAT COMPARTMENTS 08/09/2014 Knee replacement, total left BACK SURGERY HX lumbar december 2019 PAST SURGICAL HISTORY OF ~1996 cervical fusion PAST SURGICAL HISTORY OF tonsils age 3 REVISE MEDIAN N/CARPAL TUNNEL SURG Left 10/26/2020 FAMILY HISTORY Problem Relation Age of Onset Heart Father age 47- asphyxiated other (blood clot) Sister dvt No Known Problems Mother No Known Problems Brother Social History Tobacco Use Smoking status: Former Packs/day: 0.10 Years: 30.00 Pack years: 3.00 Types: Cigarettes Quit date: 07/15/2013 Years since quittin.0 Smokeless tobacco: Never Vaping Use Vaping Use: Never used Substance Use Topics Alcohol use: Not Currently Comment: not weekly Drug use: No Prior to Admission medications as of 08/16/22 0901 Medication Sig Last Dose Taking metFORMIN (GLUCOPHAGE) 500 mg tablet Take 500 mg by mouth twice daily with meals. Taking Yes umeclidinium-vilanterol (ANORO ELLIPTA) 62.5-25 mcg/actuation inhaler Inhale 1 Puff as instructed as needed. Taking Yes AMLODIPINE-BENAZEPRIL 10-20 mg per capsule Take 1 capsule by mouth once daily. Taking Yes NEXIUM 40 mg capsule Take 40 mg by mouth once daily. Taking Yes CRESTOR 10 mg tablet Take 10 mg by mouth once daily. Taking Yes mupirocin (BACTROBAN) 2 % ointment Apply 0.5 inch with cotton swab (Q-tip) to each nostril in the morning and evening for 5 days prior to and including day of surgery. albuterol HFA (PROVENTIL HFA, VENTOLIN HFA) 90 mcg/actuation inhaler Inhale 2 Puffs as instructed. Patient not taking: Reported on 08/16/2022 Not Taking No medication comments found. ALLERGIES Allergen Reactions Codeine Rash Morphine Hives Objective PHYSICAL EXAM: General: alert and oriented and obese. Pertinent negatives noted - not distressed. Skin: normal color, no rash or lesions. HEENT: EOM intact and pupils equal round. Pertinent negatives noted - no carotid bruit. Cardiovascular: regular rate and rhythm, normal S1 and S2, no rub, murmurs, or gallop. Pulse characterized as regular.No radial pulse abnormalities. Respiratory: normal breath sounds, no wheezes or crackles. Abdomen: Extremities: Pertinent negatives noted - no clubbing, no deformity and no edema. Neurological: normal cognition and motor skills. Pertinent negatives noted - no abnormal gait. PAIN ASSESSMENT: Pain Pain Level: 3 Pain Location: Knee-Right Description: Aching;Sore Frequency: Intermittent Intervention/Comfort measure: Relaxation;Reposition;Medication VITALS: BP 132/93 Pulse 83 Temp 97.5 Resp 18 Ht 5' 10 (1.78m) Wt 230 lb (104.3kg) SpO2 97% BMI 33.00 kg/(m^2). Diagnostic tests reviewed for today's visit: Lab Value Units Date High Low HB No results within date range. HCT No results within date range. WBC No results within date range. PLT No results within date range. NA No results within date range. K No results within date range. GLUC No results within date range. BUN No results within date range. CREAT No results within date range. PTSEC No results within date range. INR No results within date range. APTT No results within date range. ALT No results within date range. AST No results within date range. TBILI No results within date range. TSH No results within date range. Lab Value Units Date High Low ABORHD No results within date range. ABSCREEN No results within date range. Hemoglobin A1C (%) Date Value 12/16/2008 6.6 No results found for this or any previous visit (from the past 8760 hour(s)). Stress Echo 12/21/2019 (Care Everywhere) DOBUTAMINE STRESS ECHO Stress protocol consisted of dobutamine up to 30 mcg/kg/min . Test was terminated due to completed protocol. Rest HR 65 bpm. Peak HR 141 bpm. (89 % MPHR) Rest BP 152 mmHg/97 mmHg. Peak BP 157 mmHg/68 mmHg. Patient experienced no symptoms during stress. Rest ECG normal sinus rhythm. Stress ECG normal sinus rhythm and normal ST segment response. Stress complications: none. The left ventricular cavity size is decreased with stress. CONCLUSIONS: - Exam indication: Pre-op - The dobutamine stress echo was negative for ischemia at 89 % of MPHR. - The left ventricle is normal in size. Left ventricular systolic function is normal. EF = 64 5% (2D biplane) Definity contrast used for endocardial border detection. - The right ventricle is normal in size. Right ventricular systolic function is normal. - The patient has not had a prior CC echocardiographic exam for comparison. Assessment Class 1 obesity with body mass index (BMI) of 33.0 to 33.9 in adult Assessment: Body mass index is 33 kg/m . Former smoker Assessment: Quit in 2012, 0.1 ppd x 30 years. Pure hypercholesterolemia Assessment: Stable, on Crestor. HTN (hypertension) Assessment: Stable, on RX. BP today 132/93. Type 2 diabetes mellitus without complication, without long-term current use of insulin (HCC) Assessment: Compliant on metformin BID, does not check BS at home, A1C 7.3 in 09/2021, managed by PCP. A1C pending. GERD (gastroesophageal reflux disease) Assessment: Stable, sx managed on Nexium. [place] Activity Status Index: METS: Climb a flight of stairs or walk up a hill (5.50 METs) DASI Score: 5.5 Patient denies any chest pain or undue shortness of breath with the above physical activity. Clinical Frailty Scale: 3. Well, with treated comorbid disease STOP-Bang Score: Snores loudly Has or is being treated for high blood pressure Patient over 50 years old Has a large neck Male patient Denies feeling tired, fatigued, or sleepy during the daytime Has not been observed to stop breathing or choking/gasping during sleep BMI less than or equal to 35 kg/m^2 STOP-Bang Score: 5 [id number] Score: Hypertension history: Yes Diabetes history: Yes [id number] Score: 2 ARISCAT Score: Emergency procedure: No ARISCAT Score: ASA Class: 3 ANESTHESIA FINDINGS: Intubation History: No history of difficult intubation Significant Anesthesia Considerations: none Airway History: No history of difficult airway History of head/neck surgery that distorted airway, including mouth, neck, or their mobility (s/p cervical fusion) I - PHYSICAL EVALUATION AIRWAY Patient intubated: No. Tracheostomy tube not present Mallampati: II. TM distance: >3 FB. Neck ROM: full ROM without neurological symptoms. Mouth opening: adequate. Short neck: yes. Thick neck: yes Vyas present: no DENTAL Dental findings: teeth intact. Additional comments: +Caps/crowns x 2. II - ANESTHESIA PLAN ASA Score: 3 Anesthetic Plan: other Anesthetic plan additional comments: *PACC/TCI - anesthesia choice. Beta Meng Monitoring Plan Post Procedure Analgesic Plan Prepared for Surgery: optimally prepared for surgery, pending [see comment]. LABS and ECG. CONSULTS: Patient does not require consults for optimization at this time Planned Anesthetic: other anesthesia choice The Following Tests/Procedures Have Been Initiated: Orders Placed This Encounter CBC with Differential Standing Status: Future Number of Occurrences: 1 Standing Expiration Date: 10/16/2022 BMP Standing Status: Future Number of Occurrences: 1 Standing Expiration Date: 10/16/2022 IRON + TIBC Standing Status: Future Number of Occurrences: 1 Standing Expiration Date: 10/16/2022 FERRITIN BLD Standing Status: Future Number of Occurrences: 1 Standing Expiration Date: 10/16/2022 HGB A1C Standing Status: Future Number of Occurrences: 1 Standing Expiration Date: 10/16/2022 Confirm Blood Type Standing Status: Future Number of Occurrences: 1 Standing Expiration Date: 10/16/2022 Order Specific Question: Did Blood Bank direct you to place this order: Answer: No - Presurgical Workflow Type and Screen, 30 day Standing Status: Future Number of Occurrences: 1 Standing Expiration Date: 10/16/2022 mupirocin (BACTROBAN) 2 % ointment Sig: Apply 0.5 inch with cotton swab (Q-tip) to each nostril in the morning and evening for 5 days prior to and including day of surgery. Dispense: 22 g Refill: 0 ECG COMPLETE Standing Status: Future Number of Occurrences: 1 Standing Expiration Date: 08/16/2023 Instructions Given to Patient: Instructions located in the after visit summary. Patient given verbal and written preop instructions and voices comprehension and compliance. SIGNATURE: Yanet Boyle PA-C PATIENT NAME: Roberto Osborn SR DATE: August 15, 2022 TIME: 10:44 AM PAGER/CONTACT #: documented in this encounter [facility] 08-02-2022 Note HNO ID: [id number] Author: GERMAINE Cardenas Service: Radiology Author Type: Technologist Type: Progress Notes Filed: 08/02/2022 12:30 PM Note Text: Radiology Service Progress Note PATIENT NAME: Roberto Osborn SR DATE OF SERVICE: August 02, 2022 TIME: 12:30 PM PATIENT IDENTITY VERIFICATION COMPLETED USING TWO (2) IDENTIFIERS: Name and Date of confirmed by patient verbally. FALL SCREENING: Has the patient had 2 falls in the last year or 1 fall with injury or currently using an Ambulatory Assistive Device (Walker, Cane, Wheelchair, Crutches, etc.)? No PATIENT GENDER DATA: Male PATIENT RELEVANT IMPLANT DATA REVIEWED: Not Applicable RADIOLOGY DEPARTMENT: General X-ray: Exam(s) Completed: Upper Extremity X-Ray(s): Shoulder, AP / TRUE AP right PERIPHERAL IV DATA: Not applicable SIGNED BY: GERMAINE Cardenas August 02, 2022 12:30 PM [facility] 08-02-2022 History of Present illness Narrative Associated Order(s): Large Joint Arthro/Inj: R subacromial bursa Post-Procedure Diagnose(s): Rotator cuff syndrome of right shoulder Images from the original note were not included. DEPARTMENT OF ORTHOPAEDICS CHIEF COMPLAINT: right shoulder pain HISTORY OF PRESENT ILLNESS: This is a pleasant 62 year old male, who presents today with a chief complaint of right shoulder pain. He complains of sharp pain about the posterior and lateral aspect of approximately several months duration. This pain is intermittent. He denies trauma. He complains that the pain is 3. He reports nocturnal pain. The pain is exacerbated by overhead activities, reaching, and work. Previous treatments have included OTC NSAIDs. He denies proximal radiation. He complains of distal radiation to the brachium. He denies numbness, tingling, or electric shocks. He reports clicking. He denies swelling, mass, warmth, fevers, chills, sweats, adenopathy, fatigue, weight gain, weight loss, and shortness of breath. PAIN EVALUATION 08/02/2022 1252 Pain Level: 3 Pain Location: Shoulder-Right Description: Aching Duration Amount of Time: -- couple months Frequency: Continuous Intervention/Comfort measure: Positioning;Medication PAST MEDICAL HISTORY Diagnosis Date Diabetes (HCC) GERD (gastroesophageal reflux disease) HTN (hypertension) Hypercholesteremia Osteoarthritis PAST SURGICAL HISTORY Procedure Laterality Date ARTHROSCOPY KNEE DIAGNOSTIC W/WO SYNOVIAL BX SPX 08/2008 Arthroscopy, knee right ARTHROSCOPY KNEE DIAGNOSTIC W/WO SYNOVIAL BX SPX 06/29/2013 Arthroscopy, knee left ARTHRP KNE CONDYLE&PLATU MEDIAL&LAT COMPARTMENTS 08/09/2014 Knee replacement, total left BACK SURGERY HX lumbar december 2019 PAST SURGICAL HISTORY OF ~1996 cervical fusion PAST SURGICAL HISTORY OF tonsils age 3 REVISE MEDIAN N/CARPAL TUNNEL SURG Left 10/26/2020 Current Outpatient Medications Medication Sig Dispense Refill methylPREDNISolone (MEDROL, GEOVANI,) 4 mg Dose-Pack As Instructed per package (Patient not taking: Reported on 07/19/2022) 21 tablet 0 metFORMIN (GLUCOPHAGE) 500 mg tablet Take 500 mg by mouth. albuterol HFA (PROVENTIL HFA, VENTOLIN HFA) 90 mcg/actuation inhaler Inhale 2 Puffs as instructed. umeclidinium-vilanterol (ANORO ELLIPTA) 62.5-25 mcg/actuation inhaler Inhale 1 Puff as instructed. AMLODIPINE-BENAZEPRIL 10-20 mg per capsule Take 1 capsule by mouth once daily. NEXIUM 40 mg capsule Take 40 mg by mouth once daily. CRESTOR 10 mg tablet Take 10 mg by mouth once daily. No current facility-administered medications for this visit. 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 MUSCULOSKELETAL: See HPI. PSYCH: Negative for sleep disturbance, mood disorder and recent psychosocial stressors. HEMATOLOGY Negative for prolonged bleeding, bruising easily, and swollen nodes. ENDOCRINE: Negative for cold or heat intolerance, polyuria, polydipsia and goiter. NEURO: negative for lightheadedness, dizziness, tremor, gait imbalance, syncope and seizures. RADIOGRAPHS: Last XR Shoulder - Impression Only XR SHOULDER [id number] AP/TRUE AP RIGHT Exam End: 08/02/2022 12:26 PM (In process) OTHER STUDIES: Last MRI Shoulder - Impression Only No resulted procedures found. PHYSICAL EXAM: There were no vitals taken for this visit. General: Appears stated age, well built, in no apparent distress. Psychiatric: Mood and affect appropriate. Alert and oriented x3. Musculoskeletal Exam: Gait and Station normal. RIGHT SHOULDER EXAM: Inspection Skin No evidence of eythema, warmth, bruising, abrasions, scars, deformity or drooping about bilateral upper extremities. Incision No evidence of surgical incisions. Atrophy No evidence of muscular atrophy. Palpation Tenderness Positive tenderness to palpation: Acromioclavicular joint Crepitance Positive palpable subacromial crepitance Range of Motion Forward Flexion AROM/PROM 90 /120 Adducted External Rotation AROM/PROM 30 /45 Internal Rotation L4 Abducted Internal Rotation 5 Rotator Cuff Strength 5/5 rotator cuff strength, negative lift off and belly press test Lag signs Negative lag signs Impingement Positive Impingement signs Biceps Equivocal: Speed's test(s) Stability Negative: Apprehension Cervical Spine: Appropriate range of motion, negative midline and paraspinal muscle tenderness, negative stepoff, and negative Spurling's test. Bilateral upper extremities show equal motion of the elbows, and wrists. Negative Tinnels at the wrist and elbow. Normal strength, tone, and stability of both upper extremities distally. Neurologic Exam: Intact lateral deltoid(C5), lateral forearm(C6), thumb(C6), middle finger(C7), medial forearm(C8), little finger(C8), and medial arm(T1) sensation bilaterally. Intact biceps (C5), brachioradialis (C6), triceps (C7) reflexes bilaterally. Vascular: 2+ radial pulses, both upper extremities. PROCEDURE: Large Joint Arthro/Inj: R subacromial bursa Informed Consent Consent Obtained: Verbal [place] Protocol A moment to CARE was completed. SIGN IN Personnel directly involved with the procedure wore the appropriate PPE. Special Equipment: N/A Patient/Surrogate Stated/Verified: Patient name, Date of , Relevant allergies and Intended procedure TIME OUT Intended patient and procedure match the source document(s). Consent documented and matches the intended procedure. Relevant labs, photos, and/or imaging studies have been reviewed. Correct side/site marked and visible. Medications required for procedure verified. No fire risk assessment and interventions applicable. No implant(s) inserted. 08/02/2022 1:17 PM The procedure site was prepped in the usual sterile fashion. Site: R subacromial bursa Medications: 12 mg betamethasone acetate-betamethasone sodium phosphate 6 mg/mL Anesthetics: 3 mL bupivacaine (PF) 0.25 % (2.5 mg/mL) Outcome: Tolerated well, no immediate complications Post-injection instructions were reviewed with the patient and the patient voiced understanding of these instructions. SIGN OUT No specimen collected. No instruments, equipment or retained foreign bodies applicable. Post-procedure follow-up management communicated and Plan of Care Visit completed when applicable IMPRESSION: 1. Right Subacromial Impingement Syndrome. Possible rotator cuff tear. I recommended we treat him symptomatically in light of his upcoming total knee arthroplasty. If conservative measures fail to provide significant relief, consider advanced imaging PLAN: 1. Medication: None. 2. Test(s)/Imaging/Referral(s): None. 3. Intervention: Right shoulder corticosteroid injection today and Shoulder rehabilitation protocol instructed and given to patient. 4. Follow-up: For repeat clinical evaluation as needed. Chika Carpenter M.D. cc: Dr Timothy Correa MD Results of consultation to be transmitted via electronic medical record for those providers who practice within [facility] or with access to [employer] via [employer], or via [employer] documented in this encounter [facility] 08-02-2022 History of Present illness Narrative Radiology Service Progress Note PATIENT NAME: Roberto Osborn SR DATE OF SERVICE: August 02, 2022 TIME: 12:30 PM PATIENT IDENTITY VERIFICATION COMPLETED USING TWO (2) IDENTIFIERS: Name and Date of confirmed by patient verbally. FALL SCREENING: Has the patient had 2 falls in the last year or 1 fall with injury or currently using an Ambulatory Assistive Device (Walker, Cane, Wheelchair, Crutches, etc.)? No PATIENT GENDER DATA: Male PATIENT RELEVANT IMPLANT DATA REVIEWED: Not Applicable RADIOLOGY DEPARTMENT: General X-ray: Exam(s) Completed: Upper Extremity X-Ray(s): Shoulder, AP / TRUE AP right PERIPHERAL IV DATA: Not applicable SIGNED BY: GERMAINE Cardenas August 02, 2022 12:30 PM documented in this encounter [facility] 07-29-2022 History of Present illness Narrative REASON FOR VISIT / CHIEF COMPLAINT CHIEF COMPLAINT: Roberto Osborn SR is a 62 year old male who presents today for follow up office visit. Patient presents with: Right Knee - Follow Up HISTORY OF PRESENT ILLNESS (HPI) PAIN EVALUATION 07/19/2022 1202 Pain Level: 0 Pain Location: Knee-Right Patient was last seen approximately 3 weeks ago for his final viscosupplementation injection to the right knee Any new injury, since being seen last: No Is there any overall improvement in your condition? Yes, Does anything make it worse?: Yes, prolonged standing/walking Does anything make it better?: Yes, viscosupplementation REVIEW OF SYMPTOMS: Integumentary: Any recent skin changes or rashes? No Neurologic: Any numbness or tingling in the LOCAL AREA? No Endocrine: Any diagnosis of diabetes? Yes Hematologic: Any recent bleeding episodes? No ALLERGIES ALLERGIES Allergen Reactions Codeine Rash Morphine Hives PAST MEDICAL HISTORY PAST MEDICAL HISTORY Diagnosis Date Diabetes (HCC) GERD (gastroesophageal reflux disease) HTN (hypertension) Hypercholesteremia Osteoarthritis PAST SURGICAL HISTORY Procedure Laterality Date ARTHROSCOPY KNEE DIAGNOSTIC W/WO SYNOVIAL BX SPX 08/2008 Arthroscopy, knee right ARTHROSCOPY KNEE DIAGNOSTIC W/WO SYNOVIAL BX SPX 06/29/2013 Arthroscopy, knee left ARTHRP KNE CONDYLE&PLATU MEDIAL&LAT COMPARTMENTS 08/09/2014 Knee replacement, total left BACK SURGERY HX lumbar december 2019 PAST SURGICAL HISTORY OF ~1996 cervical fusion PAST SURGICAL HISTORY OF tonsils age 3 REVISE MEDIAN N/CARPAL TUNNEL SURG Left 10/26/2020 PHYSICAL EXAMINATION Vitals: There were no vitals taken for this visit. Body Habitus:no acute distress and alert and oriented Orientation: Normal: Oriented to person, place and time Psych: normal Sensation: sensation to light touch is grossly normal bilaterally Skin: Color, texture, turgor normal. No rashes or lesions Swelling: no swelling noted Stance: normal cervical posture, shoulder alignment, and no joint deformities or swelling noted Ortho Exam Right knee with obvious varus alignment Positive crepitance at the patellofemoral joint Mild laxity to valgus stress Right leg neurovascularly intact Imaging : none today Proceedures : None today Assessment: Right knee symptomatically improved status post viscosupplementation. We discussed the various treatment options including the possibility of arthroplasty if his symptoms return and conservative measures fail to provide significant relief. Plan: 1. Continue independent range of motion/strengthening exercises 2. Follow-up as needed Chika Carpenter M.D. Department of Orthopaedic Surgery [facility] documented in this encounter [facility] 07-05-2022 Miscellaneous Notes I talked with Lien, she thinks the pain is from the injection, not his arthritis pain. There is no increased swelling, redness, or drainage at this time. We discussed this could represent the severity of the arthritis and it may take 3-4 weeks for the series to fully engage. I have prescribed a medrol dose pack and Roberto will follow up with dr. Carpenter as scheduled already. Regla Higgins PA-C Lien calls in today with questions regarding her , Roberto. He had his third Euflexxa injection on 06/28/22. He usually has pain for a day or two after the injections but the pain is not going away this time. He has had the pain since last Friday. He has trouble putting any weight on leg at all. He is rating his pain an 8. He states that nothing helps th pain get better. Ibuprofen is not helping. Please advise documented in this encounter [facility] 06-28-2022 History of Present illness Narrative Associated Order(s): Large Joint Arthro/Inj: R knee joint Post-Procedure Diagnose(s): Primary osteoarthritis of right knee SUBJECTIVE: Here for the third and final injection of Euflexxa into right knee. Patient had no significant discomfort with the 1st or 2nd injections. OBJECTIVE: right knee continues to have mild effusion, positive crepitants and decreased ROM. ASSESSMENT: right knee pain secondary to osteoarthritis PLAN: 1. Injection of 3rd and final dose of Euflexxa through Betadine cleansed inferolateral insertion site. 2. Follow up 1 months' time for repeat evaluation Large Joint Arthro/Inj: R knee joint Informed Consent Consent Obtained: Verbal [place] Protocol A moment to CARE was completed. SIGN IN Personnel directly involved with the procedure wore the appropriate PPE. Special Equipment: N/A Patient/Surrogate Stated/Verified: Patient name, Date of , Relevant allergies and Intended procedure TIME OUT Intended patient and procedure match the source document(s). Consent documented and matches the intended procedure. Relevant labs, photos, and/or imaging studies have been reviewed. Correct side/site marked and visible. Medications required for procedure verified. No fire risk assessment and interventions applicable. No implant(s) inserted. 06/28/2022 10:08 AM The procedure site was prepped in the usual sterile fashion. Site: R knee joint Medications: 20 mg sodium hyaluronate 10 mg/mL(mw 2.4 -3.6 million) Outcome: Tolerated well, no immediate complications Post-injection instructions were reviewed with the patient and the patient voiced understanding of these instructions. SIGN OUT No specimen collected. No instruments, equipment or retained foreign bodies applicable. Post-procedure follow-up management communicated and Plan of Care Visit completed when applicable documented in this encounter [facility] 06-21-2022 History of Present illness Narrative Associated Order(s): Large Joint Arthro/Inj: R knee joint Post-Procedure Diagnose(s): Primary osteoarthritis of right knee SUBJECTIVE: Here for the second of 3 injections of Euflexxa into right knee. Patient had no significant discomfort with the 1st injection. OBJECTIVE: right knee continues to have mild effusion, positive crepitants and decreased ROM ASSESSMENT: right knee pain secondary to osteoarthritis PLAN: 1. Injection second dose of Euflexxa through Betadine cleansed inferolateral insertion site. 2. Follow up 1 weeks time for 3rd and final injection. Large Joint Arthro/Inj: R knee joint Informed Consent Consent Obtained: Verbal [place] Protocol A moment to CARE was completed. SIGN IN Personnel directly involved with the procedure wore the appropriate PPE. Special Equipment: N/A Patient/Surrogate Stated/Verified: Patient name, Intended procedure and Relevant allergies TIME OUT 06/21/2022 10:35 AM The procedure site was prepped in the usual sterile fashion. Site: R knee joint Medications: 20 mg sodium hyaluronate 10 mg/mL(mw 2.4 -3.6 million) Outcome: Tolerated well, no immediate complications Post-injection instructions were reviewed with the patient and the patient voiced understanding of these instructions. SIGN OUT Post-procedure follow-up management communicated and Plan of Care Visit completed when applicable documented in this encounter [facility] 06-14-2022 History of Present illness Narrative Associated Order(s): Large Joint Arthro/Inj: R knee joint Post-Procedure Diagnose(s): Primary osteoarthritis of right knee SUBJECTIVE: Here for the first of 3 injections of Euflexxa into right knee. Patient continues to complain of right knee pain. OBJECTIVE: right knee continues to have mild effusion, positive crepitants and decreased ROM. ASSESSMENT: right knee pain secondary to osteoarthritis PLAN: 1. Injection of 1st dose of Euflexxa through Betadine cleansed inferolateral insertion site. 2. Follow up 1 weeks time for 2nd of 3 injections. Large Joint Arthro/Inj: R knee joint Informed Consent Consent Obtained: Verbal [place] Protocol A moment to CARE was completed. SIGN IN Personnel directly involved with the procedure wore the appropriate PPE. Special Equipment: N/A Patient/Surrogate Stated/Verified: Patient name, Date of , Relevant allergies and Intended procedure TIME OUT Intended patient and procedure match the source document(s). Consent documented and matches the intended procedure. Relevant labs, photos, and/or imaging studies have been reviewed. Correct side/site marked and visible. Medications required for procedure verified. No fire risk assessment and interventions applicable. No implant(s) inserted. 06/14/2022 10:02 AM The procedure site was prepped in the usual sterile fashion. Site: R knee joint Medications: 20 mg sodium hyaluronate 10 mg/mL(mw 2.4 -3.6 million) Outcome: Tolerated well, no immediate complications Post-injection instructions were reviewed with the patient and the patient voiced understanding of these instructions. SIGN OUT No specimen collected. No instruments, equipment or retained foreign bodies applicable. Post-procedure follow-up management communicated and Plan of Care Visit completed when applicable documented in this encounter [facility] 03-04-2022 Miscellaneous Notes Referral created Will wait to hear back if approved or not Please seek approval for viscosupplementation documented in this encounter [facility] 02-22-2022 History of Present illness Narrative Associated Order(s): Large Joint Arthro/Inj: R knee joint Post-Procedure Diagnose(s): Primary osteoarthritis of right knee Images from the original note were not included. DEPARTMENT OF ORTHOPAEDICS HISTORY OF PRESENT ILLNESS: This is a pleasant 61 year old male, who presents today with a chief complaint of right knee pain. He complains of sharp and aching pain about the anterior and medial aspect of approximately several months duration. This pain is constant. He denies trauma. He complains that the pain is 2/10. He reports nocturnal pain. The pain is exacerbated by walking, managing stairs and prolonged standing. Previous treatments have included OTC medicaiton. He denies proximal radiation. He denies distal radiation. He denies numbness, tingling, or electric shocks. He reports clicking, grinding and giving way. He reports swelling and/or warmth. PAIN EVALUATION 02/22/2022 1315 Pain Level: 2 Pain Location: Knee-Right Description: Aching Duration Amount of Time: ongoing Frequency: Continuous Intervention/Comfort measure: Medication;Positioning PAST MEDICAL HISTORY Diagnosis Date Diabetes (HCC) GERD (gastroesophageal reflux disease) HTN (hypertension) Hypercholesteremia Osteoarthritis PAST SURGICAL HISTORY Procedure Laterality Date ARTHROSCOPY KNEE DIAGNOSTIC W/WO SYNOVIAL BX SPX 08/2008 Arthroscopy, knee right ARTHROSCOPY KNEE DIAGNOSTIC W/WO SYNOVIAL BX SPX 06/29/2013 Arthroscopy, knee left ARTHRP KNE CONDYLE&PLATU MEDIAL&LAT COMPARTMENTS 08/09/2014 Knee replacement, total left BACK SURGERY HX lumbar december 2019 PAST SURGICAL HISTORY OF ~1996 cervical fusion PAST SURGICAL HISTORY OF tonsils age 3 REVISE MEDIAN N/CARPAL TUNNEL SURG Left 10/26/2020 Current Outpatient Medications Medication Sig Dispense Refill metFORMIN (GLUCOPHAGE) 500 mg tablet Take 500 mg by mouth. albuterol HFA (PROVENTIL HFA, VENTOLIN HFA) 90 mcg/actuation inhaler Inhale 2 Puffs as instructed. AMLODIPINE-BENAZEPRIL 10-20 mg per capsule Take 1 capsule by mouth once daily. NEXIUM 40 mg capsule Take 40 mg by mouth once daily. CRESTOR 10 mg tablet Take 10 mg by mouth once daily. umeclidinium-vilanterol (ANORO ELLIPTA) 62.5-25 mcg/actuation inhaler Inhale 1 Puff as instructed. (Patient not taking: Reported on 02/22/2022 ) No current facility-administered medications for this visit. ALLERGIES Allergen Reactions Codeine Rash Morphine Hives FAMILY HISTORY Problem Relation Age of Onset Heart Father age 47- asphyxiated other (blood clot) Sister dvt No Known Problems Mother No Known Problems Brother Social History Tobacco Use Smoking status: Former Smoker Packs/day: 0.10 Years: 30.00 Pack years: 3.00 Types: Cigarettes Quit date: 07/15/2013 Years since quittin.6 Smokeless tobacco: Never Used Vaping Use Vaping Use: Never used Substance Use Topics Alcohol use: Not Currently Comment: not weekly Drug use: No Occupation: [employer] Activity level: recreational, sport/activity: none REVIEW OF SYSTEMS: GENERAL: negative for malaise, significant weight loss, night sweats and fever HEENT: No changes in hearing or vision, no nose bleeds or other nasal problems., No trouble swallowing RESPIRATORY: Negative for cough, wheezing and shortness of breath CARDIOVASCULAR: Negative for chest pain, leg swelling, palpitations, orthopnea GI: Negative for abdominal discomfort, hematochezia, melena, hematemesis, change in bowel habits, diarrhea, constipation, nausea or vomiting. MUSCULOSKELETAL: See HPI. PSYCH: Negative for sleep disturbance, mood disorder and recent psychosocial stressors. HEMATOLOGY Negative for prolonged bleeding, bruising easily, and swollen nodes. ENDOCRINE: Negative for cold or heat intolerance, polyuria, polydipsia and goiter. NEURO: negative for lightheadedness, dizziness, tremor, gait imbalance, syncope and seizures. RADIOGRAPHS: Last XR Knee - Impression Only XR KNEE GENERAL 4V AP BOTH/PA BOTH/LAT/MERC BILATERAL Exam End: 02/22/2022 12:51 PM (In process) Complete Results OTHER STUDIES: Last MRI Knee - Impression Only MRI KNEE WO CONTRAST RT Collected: 05/07/2008 10:54 PM (Final result) Complete Results PHYSICAL EXAM: Wt 232 lb (105.2kg) General: Appears stated age, well built, in no apparent distress. Psychiatric: Mood and affect appropriate. Alert and oriented x3. Musculoskeletal Exam: Gait and Station antalgic: right. RIGHT KNEE EXAM: Inspection Skin Positive: Varus alignment. Incision Positive: Well healed arthroscopic incision. Atrophy No evidence of muscular atrophy. Range of Motion Knee 5-120 degrees Patella Decreased patellar mobility Palpation Effusion 1+ effusion Tenderness medial joint line Crepitance Positive palpable medial compartment crepitance Meniscus Negative medial and lateral Leslye's test Stability Positive valgus instability, remainder of stability exam is normal Lumbar Spine: Positive: decreased range of motion. Negative Juan's, calf tenderness or palpable cords. Bilateral lower extremities show equal motion of the hips and ankles. Normal strength, tone, and stability of both lower extremities distally. Neurologic Exam: Intact medial leg and foot(L4), lateral leg and 1st web space(L5), lateral foot(S1) sensation in both lower extremities. Intact patellar tendon(L4), and Achilles(S1) reflexes in both lower extremities. Vascular: 2+ pedal pulses of both lower extremities. PROCEDURE: Large Joint Arthro/Inj: R knee joint Informed Consent Consent Obtained: Verbal [place] Protocol A moment to CARE was completed. SIGN IN Personnel directly involved with the procedure wore the appropriate PPE. Special Equipment: N/A Patient/Surrogate Stated/Verified: Patient name, Date of , Relevant allergies and Intended procedure TIME OUT Intended patient and procedure match the source document(s). Consent documented and matches the intended procedure. Relevant labs, photos, and/or imaging studies have been reviewed. Correct side/site marked and visible. Medications required for procedure verified. No fire risk assessment and interventions applicable. No implant(s) inserted. 02/22/2022 1:32 PM The procedure site was prepped in the usual sterile fashion. Site: R knee joint Medications: 12 mg betamethasone acetate-betamethasone sodium phosphate 6 mg/mL Anesthetics: 2 mL lidocaine (PF) 20 mg/mL (2 %) Outcome: Tolerated well, no immediate complications Post-injection instructions were reviewed with the patient and the patient voiced understanding of these instructions. SIGN OUT No specimen collected. No instruments, equipment or retained foreign bodies applicable. Post-procedure follow-up management communicated and Plan of Care Visit completed when applicable Rationale for Viscosupplementation: Renewal Request As a part of a multimodal treatment plan, we are requesting authorization of hyaluronic acid viscosupplementation injections for the improvement of symptoms related to osteoarthritis. Authorization is being requested for treatment of the Right knee. Rationale for authorization of these injections is based on the following elements: Signs and Symptoms Length of symptoms > 3 months Pain interferes with ADLs? Yes Radiographic evidence of OA? Yes Previous Treatments Bracing attempted? No Formal Physical Therapy (PT)/ Home Exercise Program (HEP) attempted? Patient completed an outlined HEP NSAID medication attempted? Corticosteroid injection attempted? Patient has had a previous CSI with intermittent relief Weight management attempted? No (Normal BMI) Prior Viscosupplementation Prior viscosupplementation? Yes Prior viscosupplementation improved symptoms? Yes Prior viscosupplementation improved symptoms at least 6 months? Yes Patient continues to be symptomatic despite above treatment attempts. Requested Viscosupplementation Preferred product: Euflexxa Alternative product: Durolane or payor preferred IMPRESSION: 1. right knee moderate /severe degenerative joint disease. Recommend a repeat corticosteroid injection to see if we can provide additional relief. He is getting good relief from viscosupplementation injections in the past and therefore I recommended we obtain approval for these if his symptoms persist we will proceed with those injections at that time. PLAN: 1. Medication: Continue current medications. 2. Test(s)/Imaging/Referral(s): None. 3. Intervention: Right knee corticosteroid injection today and WBAT. Seek approval for viscosupplementation 4. Follow-up: When approval for viscosupplementation injections has been obtained. I would like to thank you for the kind referral of . I appreciate the opportunity to be involved in his care. Please do not hesitate to call upon me if I may be of further assistance. documented in this encounter [facility] 02-22-2022 History of Present illness Narrative Radiology Service Progress Note PATIENT NAME: Roberto Osborn SR DATE OF SERVICE: February 22, 2022 TIME: 12:52 PM PATIENT IDENTITY VERIFICATION COMPLETED USING TWO (2) IDENTIFIERS: Name and Date of confirmed by patient verbally. FALL SCREENING: Has the patient had 2 falls in the last year or 1 fall with injury or currently using an Ambulatory Assistive Device (Walker, Cane, Wheelchair, Crutches, etc.)? No PATIENT GENDER DATA: Male PATIENT RELEVANT IMPLANT DATA REVIEWED: Not Applicable RADIOLOGY DEPARTMENT: General X-ray: Exam(s) Completed: Lower Extremity X-Ray(s): Knee, AP / Lat / Tunne / Merchant Bilateral and Wt. Bearing PERIPHERAL IV DATA: Not applicable SIGNED BY: GERMAINE Sparrow February 22, 2022 12:52 PM documented in this encounter [facility] 11-15-2021 Miscellaneous Notes Images from the original note were not included. [facility] Care Opportunity Follow-up HBA1C Due Situation: [facility] Online Reporting Portal reviewed for open care opportunities and completion of health maintenance gaps in care. Payor: [employer] / Plan: BLUE CROSS/HMO,PPO,POS / Product Type: PPO [facility] Online Reporting Portal: Care Opportunity: Past due or overdue per report: HBA1C, eye exam Lab Results Component Value Date HBA1C 7.3 (H) 10/02/2021 Micro-Albumin/Creat Ratio (mg/G Creat) Date Value 10/02/2021 3 Basic Metabolic Panel Na K Cl CO2 Gap Glu BUN Cr Ca 10/02/21 0902 140 4.6 102 27 16 117 5 0.67 9.2 No prior visits in Ophthalmology Last visit with PCP (TIMOTHY CORREA) was 10/02/2021 No future appointment with PCP (TIMOTHY CORREA) Health Maintenance Due Topic Date Due Hepatitis C Antibody Never done CRC Screening Never done Shingles (RZV) Vaccine (1 of 2) 2009 Future Appointments None Found Specialty Appts? No Active Orders/Referrals? No Contacted Patient: Yes Telephoned patient. Identified myself by name and title. Patient was identified by name and date of and agreed to call. Informed patient that the purpose of this call was to review Health Maintenance Due items. Patient verbalized understanding. Patient stated he has an eye exam scheduled for 11/16/21 with a provider outside of . Action: Continue to monitor for additional care opportunities. DAVON Givens, RN, [facility] Credit Control Assistant documented in this encounter [facility] Evaluation note Diagnosis Pain- Primary Generalized pain [facility] Pain Generalized pain [facility] Diagnosis Primary osteoarthritis of right knee- Primary Primary localized osteoarthrosis, lower leg [facility] Diagnosis Colon cancer screening- Primary Special screening for malignant neoplasms, colon [facility] Primary osteoarthritis of right knee- Primary Primary localized osteoarthrosis, lower leg [facility] Primary osteoarthritis of right knee- Primary Primary localized osteoarthrosis, lower leg [facility] Diagnosis Primary osteoarthritis of right knee- Primary Primary localized osteoarthrosis, lower leg [facility] Acute pain of right knee- Primary Primary osteoarthritis of right knee Primary localized osteoarthrosis, lower leg [facility] Diagnosis Primary osteoarthritis of right knee- Primary Primary localized osteoarthrosis, lower leg Primary osteoarthritis of right knee Primary localized osteoarthrosis, lower leg [facility] Diagnosis Rotator cuff syndrome of right shoulder- Primary Disorders of bursae and tendons in shoulder region, unspecified Primary osteoarthritis of right knee Primary localized osteoarthrosis, lower leg [facility] Preoperative examination- Primary Preoperative examination, unspecified Type 2 diabetes mellitus without complication, without long-term current use of insulin (HCC) Class 1 obesity with body mass index (BMI) of 33.0 to 33.9 in adult, unspecified obesity type, unspecified whether serious comorbidity present Former smoker Personal history of tobacco use, presenting hazards to health Pure hypercholesterolemia Primary hypertension Unspecified essential hypertension Gastroesophageal reflux disease, unspecified whether esophagitis present Primary osteoarthritis of right knee Primary localized osteoarthrosis, lower leg [facility] Diagnosis Primary osteoarthritis of right knee Primary localized osteoarthrosis, lower leg Preop testing Preoperative examination, unspecified Primary osteoarthritis of right knee Primary localized osteoarthrosis, lower leg [facility] Diagnosis S/P total knee arthroplasty, right- Primary [facility] Diagnosis Pain in right hip Pain in joint, pelvic region and thigh Chronic pain of right knee [facility] Diagnosis Annual physical exam- Primary Routine general medical examination at a [facility] facility Vitamin D deficiency Unspecified vitamin D deficiency B12 deficiency Other B-complex deficiencies Essential hypertension, benign Type 2 diabetes mellitus without complication, without long-term current use of insulin (HCC) Encounter for long-term (current) use of medications Encounter for long-term (current) use of other medications Pure hypercholesterolemia Screening for malignant neoplasm of prostate Need for hepatitis C screening test Special screening examination for other specified viral diseases [facility] Diagnosis Erectile dysfunction, unspecified erectile dysfunction type- Primary [facility] Diagnosis Chronic pain of right knee- Primary S/P total knee arthroplasty, right [facility] Diagnosis Chronic pain of right knee- Primary [facility] Diagnosis Chronic pain of right knee- Primary [facility] Diagnosis Chronic pain of right knee- Primary [facility] Diagnosis Chronic pain of right knee- Primary [facility] Diagnosis Aftercare following right knee joint replacement surgery- Primary [facility] Diagnosis Chronic pain of right knee- Primary [facility] Diagnosis Chronic pain of right knee- Primary [facility] Diagnosis Chronic pain of right knee- Primary [facility] Diagnosis Aftercare following right knee joint replacement surgery- Primary [facility] Diagnosis Primary osteoarthritis of right knee- Primary Primary localized osteoarthrosis, lower leg Preop testing Preoperative examination, unspecified Encounter for preoperative screening laboratory testing for COVID-19 virus [facility] Diagnosis Primary osteoarthritis of right knee- Primary Primary localized osteoarthrosis, lower leg documented in this encounter [facility] note* Diagnosis Myalgia- Primary Mylagia and myositis, unspecified B12 deficiency Other B-complex deficiencies Vitamin D deficiency Unspecified vitamin D deficiency [facility] Diagnosis Status post total left knee replacement- Primary documented in this encounter [facility] note* Diagnosis Pain due to internal orthopedic prosthetic devices, implants and grafts, initial encounter ([facility])- Primary S/P total knee replacement using cement, left 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 ([facility]) documented in this encounter [facility] note* Diagnosis Pain due to internal orthopedic prosthetic devices, implants and grafts, initial encounter ([facility]) S/P total knee replacement using cement, left documented in this encounter [facility] note* Diagnosis Pain due to internal orthopedic prosthetic devices, implants and grafts, initial encounter ([facility])- Primary documented in this encounter [facility] note* Diagnosis Left leg swelling- Primary Left leg swelling [facility] Diagnosis Pre-op evaluation- Primary Preoperative examination, unspecified Carpal tunnel syndrome of left wrist Carpal tunnel syndrome Essential hypertension, benign Type 2 diabetes mellitus without complication, without long-term current use of insulin ([facility]) Gastroesophageal reflux disease, unspecified whether esophagitis present Allergic rhinitis, unspecified seasonality, unspecified trigger Preoperative examination- Primary Preoperative examination, unspecified Type 2 diabetes mellitus without complication, without long-term current use of insulin ([facility]) Class 1 obesity with body mass index (BMI) of 33.0 to 33.9 in adult, unspecified obesity type, unspecified whether serious comorbidity present Former smoker Personal history of tobacco use, presenting hazards to health Pure hypercholesterolemia Primary hypertension Unspecified essential hypertension Gastroesophageal reflux disease, unspecified whether esophagitis present Pain in left hip Pain in joint, pelvic region and thigh Right knee pain, unspecified chronicity documented in this encounter [facility] note* Diagnosis Pre-op evaluation- Primary Preoperative examination, unspecified Carpal tunnel syndrome of left wrist Carpal tunnel syndrome Essential hypertension, benign Type 2 diabetes mellitus without complication, without long-term current use of insulin ([facility]) Gastroesophageal reflux disease, unspecified whether esophagitis present Allergic rhinitis, unspecified seasonality, unspecified trigger Preoperative examination- Primary Preoperative examination, unspecified Type 2 diabetes mellitus without complication, without long-term current use of insulin (HCC) Class 1 obesity with body mass index (BMI) of 33.0 to 33.9 in adult, unspecified obesity type, unspecified whether serious comorbidity present Former smoker Personal history of tobacco use, presenting hazards to health Pure hypercholesterolemia Primary hypertension Unspecified essential hypertension Gastroesophageal reflux disease, unspecified whether esophagitis present Status post total left knee replacement documented in this encounter [facility] note* Diagnosis Pre-op evaluation- Primary Preoperative examination, unspecified Carpal tunnel syndrome of left wrist Carpal tunnel syndrome Essential hypertension, benign Type 2 diabetes mellitus without complication, without long-term current use of insulin (HCC) Gastroesophageal reflux disease, unspecified whether esophagitis present Allergic rhinitis, unspecified seasonality, unspecified trigger Preoperative examination- Primary Preoperative examination, unspecified Type 2 diabetes mellitus without complication, without long-term current use of insulin (HCC) Class 1 obesity with body mass index (BMI) of 33.0 to 33.9 in adult, unspecified obesity type, unspecified whether serious comorbidity present Former smoker Personal history of tobacco use, presenting hazards to health Pure hypercholesterolemia Primary hypertension Unspecified essential hypertension Gastroesophageal reflux disease, unspecified whether esophagitis present Right knee pain, unspecified chronicity documented in this encounter [facility] note* Diagnosis Pre-op evaluation- Primary Preoperative examination, unspecified Carpal tunnel syndrome of left wrist Carpal tunnel syndrome Essential hypertension, benign Type 2 diabetes mellitus without complication, without long-term current use of insulin (HCC) Gastroesophageal reflux disease, unspecified whether esophagitis present Allergic rhinitis, unspecified seasonality, unspecified trigger Right shoulder pain, unspecified chronicity Preoperative examination- Primary Preoperative examination, unspecified Type 2 diabetes mellitus without complication, without long-term current use of insulin (HCC) Class 1 obesity with body mass index (BMI) of 33.0 to 33.9 in adult, unspecified obesity type, unspecified whether serious comorbidity present Former smoker Personal history of tobacco use, presenting hazards to health Pure hypercholesterolemia Primary hypertension Unspecified essential hypertension Gastroesophageal reflux disease, unspecified whether esophagitis present documented in this encounter [facility] note* Diagnosis Chronic pain of right knee- Primary documented in this encounter [facility] Work Phone: Evaluation note* Diagnosis Spinal stenosis of lumbar region with neurogenic claudication- Primary Spinal stenosis, lumbar region, with neurogenic claudication documented in this encounter [facility] Work Phone: Evaluation note* Diagnosis Annual physical exam- Primary Routine general medical examination at a health care facility B12 deficiency Other B-complex deficiencies Vitamin D deficiency Unspecified vitamin D deficiency Type 2 diabetes mellitus without complication, without long-term current use of insulin (HCC) Encounter for long-term (current) use of medications Encounter for long-term (current) use of other medications Pure hypercholesterolemia Screening for malignant neoplasm of prostate Essential hypertension, benign Colon cancer screening Special screening for malignant neoplasms, colon documented in this encounter [facility] Work Phone: Evaluation note* Diagnosis Spinal stenosis of lumbar region with neurogenic claudication- Primary Spinal stenosis, lumbar region, with neurogenic claudication documented in this encounter [facility] Work Phone: Evaluation note* Diagnosis Medicare welcome exam- Primary Type 2 diabetes mellitus without complication, without long-term current use of insulin (HCC) B12 deficiency Other B-complex deficiencies Vitamin D deficiency Unspecified vitamin D deficiency Pure hypercholesterolemia Encounter for long-term (current) use of medications Encounter for long-term (current) use of other medications Benign prostatic hyperplasia, unspecified whether lower urinary tract symptoms present Colon cancer screening Special screening for malignant neoplasms, colon BMI 35.0-35.9,adult Body Mass Index 35.0-35.9, adult Need for pneumococcal 20-valent conjugate vaccination Severe obesity (BMI 35.0-39.9) with comorbidity (HCC) Type 2 diabetes mellitus without complication, without long-term current use of insulin (HCC)- Primary BMI 35.0-35.9,adult Body Mass Index 35.0-35.9, adult [facility] Diagnosis LLQ abdominal mass- Primary Abdominal or pelvic swelling, mass, or lump, left lower quadrant Body mass index (BMI) 34.0-34.9, adult Medicare welcome exam- Primary Type 2 diabetes mellitus without complication, without long-term current use of insulin (HCC) B12 deficiency Other B-complex deficiencies Vitamin D deficiency Unspecified vitamin D deficiency Pure hypercholesterolemia Encounter for long-term (current) use of medications Encounter for long-term (current) use of other medications Benign prostatic hyperplasia, unspecified whether lower urinary tract symptoms present Colon cancer screening Special screening for malignant neoplasms, colon BMI 35.0-35.9,adult Body Mass Index 35.0-35.9, adult Need for pneumococcal 20-valent conjugate vaccination Severe obesity (BMI 35.0-39.9) with comorbidity (HCC) [facility] Diagnosis Medicare [place] exam- Primary Type 2 diabetes mellitus without complication, without long-term current use of insulin (HCC) B12 deficiency Other B-complex deficiencies Vitamin D deficiency Unspecified vitamin D deficiency Pure hypercholesterolemia Encounter for long-term (current) use of medications Encounter for long-term (current) use of other medications Benign prostatic hyperplasia, unspecified whether lower urinary tract symptoms present Colon cancer screening Special screening for malignant neoplasms, colon BMI 35.0-35.9,adult Body Mass Index 35.0-35.9, adult Need for pneumococcal 20-valent conjugate vaccination Severe obesity (BMI 35.0-39.9) with comorbidity (HCC) Type 2 diabetes mellitus without complication, without long-term current use of insulin (HCC)- Primary BMI 35.0-35.9,adult Body Mass Index 35.0-35.9, adult [facility] Visit Details Visit Type -PT SOC Discipline -Physical Therapy Problems Problem Description Start Date Status Goals Interve ntions PT Impaired muscle performance and/or ROM Disciplines: PT 09/12/2022 Active 1 goal linked to scheduled/documen mamadou intervention 1 goal intervention scheduled/document ed in this visit PT Impaired mobility Disciplines: PT 09/12/2022 Active 1 goal linked to scheduled/documen mamadou intervention 1 goal intervention scheduled/document ed in this visit PT Impaired gait Disciplines: PT 09/12/2022 Active 1 goal linked to scheduled/documen mamadou intervention 1 goal intervention scheduled/document ed in this visit PT Orthopedic Condition Disciplines: PT 09/12/2022 Active 1 goal linked to scheduled/documen mamadou intervention 4 goal interventions scheduled/document ed in this visit PT Learning Assessment Disciplines: PT 09/12/2022 Active 1 goal linked to scheduled/documen mamadou intervention 1 goal intervention scheduled/document ed in this visit PT Cardiovascular Disease Disciplines: PT 09/12/2022 Active 1 goal linked to scheduled/documen mamadou intervention 1 goal intervention scheduled/document ed in this visit Medication Education Disciplines: Skilled Services 09/12/2022 Active 1 goal linked to scheduled/documen mamadou intervention 1 goal intervention scheduled/document ed in this visit Sepsis Disciplines: Skilled Services 09/12/2022 Active 1 goal linked to scheduled/documen mamadou intervention 1 goal intervention scheduled/document ed in this visit Physician Specific Parameters Disciplines: Skilled Services 09/12/2022 Active 1 goal linked to scheduled/documen mamadou intervention 1 goal intervention scheduled/document ed in this visit Risk for Falls Disciplines: Skilled Services 09/12/2022 Active 1 goal linked to scheduled/documen mamadou intervention 1 goal intervention scheduled/document ed in this visit Pain Disciplines: Skilled Services 09/12/2022 Active 1 goal linked to scheduled/documen mamadou intervention 1 goal intervention scheduled/document ed in this visit Diabetic Foot Care Disciplines: Skilled Services 09/12/2022 Active 1 goal linked to scheduled/documen mamadou intervention 1 goal intervention scheduled/document ed in this visit High Risk Medications Disciplines: Skilled Services 09/12/2022 Active 1 goal linked to scheduled/documen mamadou intervention 2 goal interventions scheduled/document ed in this visit Discharge Disciplines: Skilled Services 09/12/2022 Active 1 goal linked to scheduled/documen mamadou intervention 1 goal intervention scheduled/document ed in this visit Advance Directives Disciplines: Skilled Services 09/12/2022 Active 1 goal linked to scheduled/documen mamadou intervention 1 goal intervention scheduled/document ed in this visit Goals Goal Associated Problem Outcome Goal Met? Visit Notes Improved Muscle Performance and/or ROM Description: LTG: Patient and/or caregiver will verbalize/demonstrate independence with home exercise program, to improve functional mobility, to be achieved by 10-05-22. LTG: Patient will demonstrate improved right knee active range of motion to 0-90 degrees, to meet functional goals, to be achieved by 10-05-22. PT Impaired muscle performance and/or ROM No Improved Transfers Description: STG: Patient will demonstrate safe transfers to/from bed, chair and toilet independently with AD, to be achieved by 09-21-22. LTG: Patient will demonstrate safe transfers to/from car with supervision, to be achieved by 10-05-22. PT Impaired mobility No Improved Gait Description: STG: Patient will demonstrate improved gait ability as evidenced by ambulation 100 feet with crutches with supervision, to be achieved by 09-21-22. LTG: Patient will demonstrate improved gait ability as evidenced by ambulation 150 feet with single point cane or crutches independently with AD, to return to safe household ambulation, to be achieved by 10-05-22. PT Impaired gait No Manage Orthopedic Condition Description: Improve patient and/or caregiver understanding of post surgical and/or non-surgical orthopedic intervention management as evidenced by patient and/or caregiver able to verbalize, demonstrate, and teach back instruction, to be achieved by 10-05-22. PT Orthopedic Condition No Demonstrate understanding of education Description: Patient and/or caregiver will understand educational instruction to be achieved by 10-05-22. PT Learning Assessment No Manage Secondary Cardiovascular disease Description: Improve patient and/or caregiver understanding of secondary cardiovascular disease management as evidenced by patient and/or caregiver able to verbalize, demonstrate, and teach back instruction, to be achieved by 10-05-22. PT Cardiovascular Disease No Patient/caregiver will demonstrate ability to obtain, store, identify and administer ordered medications, keep accurate medication list in home, and adhere to medication schedule Description: Patient/caregiver will demonstrate ability to obtain, store, identify and administer ordered medications, keep accurate medication list in home, and adhere to medication schedule by 10-05-22. Medication Education No Patient/caregiver will be able to identify and report symptoms of sepsis Description: Patient/caregiver will be able to identify signs/symptoms of sepsis infection and will verbalize actions to take if suspected by 10-05-22. Sepsis No Patient to maintain parameters within physician-specified ranges throughout certification period Physician Specific Parameters No Manage Risk for falls Description: Patient/caregiver will verbalize knowledge of individualized fall prevention strategies by 10-05-22. Risk for Falls No Manage Pain Description: Patient/caregiver will verbalize knowledge and understanding of appropriate techniques to control pain, including pain medication and non-pharmacological techniques. Patient will verbalize or demonstrate an acceptable level of pain as evidenced by a pain score of 0-1/10 and improvement in ability to perform activities of daily living to be achieved by 10-05-22. Pain No Manage diabetic foot care Description: Patient/caregiver will demonstrate basic understanding of and compliance with diabetic self-care management as evidenced by verbalizing purpose of daily foot care and assessment by 10-05-22. Diabetic Foot Care No Patient/caregiver will teach back high risk medication side effect and precaution education High Risk Medications No Manage discharge planning Description: Patient/caregiver will verbalize understanding of ongoing discharge plan provided related to disease management, arrangements for outpatient and/or community services, obtaining medications, supplies, and DME, as needed throughout certification period. Discharge No Patient/caregiver will make healthcare providers aware of and any changes to Advance Directives throughout certification period Advance Directives No Interventions Intervention Associated Problem/Goal Status Variance Visit Notes Physical Therapy Therapeutic Exercises Problem:PT Impaired muscle performance and/or ROM Goal:Improved Muscle Performance and/or ROM Completed patient instructed on strengthening and range of motion exercises. Patient performed reclined ankle PF/Df, quad sets, glut sets. Reps: 10 patient instructed to perform home exercise program daily. Physical Therapy Transfer Training Problem:PT Impaired mobility Goal:Improved Transfers Completed Transfer training and instruction to patient on safe transfers to and from chair with stand by assist and verbal cues for technique. Physical Therapy Gait Training Problem:PT Impaired gait Goal:Improved Gait Completed Gait training and instruction to patient on safe ambulation with bilateral crutches for 2 x 40 feet with stand by assist, with verbal cues for corrections of gait deviations. Patient demonstrated forward flexed posture, step to gait pattern, decreased RT knee flexion during swing, no heel strike/toe off, and slowed pace. PT instructed patient to maintain upright posture, increase RT knee flexion for safe toe clearance. Instruct on orthopedic precautions and weight bearing restrictions Description: Orthopedic precautions including right total knee: no knee flexed over pillow at rest. Weight bearing restrictions include: WBAT of involved extremity. Problem:PT Orthopedic Condition Goal:Manage Orthopedic Condition Completed patient instructed on orthopedic precautions. Instruct on management of edema Problem:PT Orthopedic Condition Goal:Manage Orthopedic Condition Completed Instruct patient on management of edema including elevation of RT knee above the level of the heart, BLANCA wrapping, ice, medication adherence strategies and benefits of activity. Physical therapy to perform surgical incision/wound management Description: Removal of post-op dressing on 09-12-22 (today per Manjeet Esparza recommendation). If no drainage is present, leave open to air; if drainage is present, cover with clean dressing and contact provider and PT comp field case manager. Problem:PT Orthopedic Condition Goal:Manage Orthopedic Condition Completed Intervention completed this date. Instruct on self-management of post surgical and/or non-surgical orthopedic intervention Problem:PT Orthopedic Condition Goal:Manage Orthopedic Condition Completed patient instructed on managagement of orthopedic condition, signs and symptoms of infection and signs and symptoms of DVT/PE. Instruct and educate on knowledge deficits Problem:PT Learning Assessment Goal:Demonstrate understanding of education Completed patient verbalize and/or demonstrate understanding of physical therapy education including orthopedic condition management, surgical precautions, pain management, fall prevention strategies, home safety and home exercise program. Education methods include: verbal cues. Further education required to improve knowledge and compliance with home exercise program. Instruct on signs, symptoms, and management of secondary cardiovascular disease Problem:PT Cardiovascular Disease Goal:Manage Secondary Cardiovascular disease Completed Instructed patient on energy conservation. Medication Education Description: Evaluate/instruct patient/caregiver on obtaining, storing, identifying and administering ordered medications as well as keeping accurate medication list in the home and adhereing to medication schedule Problem:Medication Education Goal:Patient/caregive r will demonstrate ability to obtain, store, identify and administer ordered medications, keep accurate medication list in home, and adhere to medication schedule Completed Patient instructed on importance of keeping accurate medication list in home and adhering to medication schedule. Risk of Sepsis Description: Patient is at risk for sepsis. Monitor closely for s/s of sepsis. Problem:Sepsis Goal:Patient/caregive r will be able to identify and report symptoms of sepsis Completed SPO2 Description: Notify Dr. Carpenter if pulse ox is <92% at rest. Problem:Physician Specific Parameters Goal:Patient to maintain parameters within physician-specified ranges throughout certification period Completed Instruct on individual fall risk factors and strategies to prevent falls and injuries caused by falls. Problem:Risk for Falls Goal:Manage Risk for falls Completed PT: Patient instructed on Eliminating Environmental Hazards: Keep pathways clear and Keep rooms and walkways well lit Managing Pain Instruct on pain and instruct on strategies to control pain Problem:Pain Goal:Manage Pain Completed patient instructed on techniques to control pain including Pharmacological measures and Non-Pharmacological measures; rest, positioning/elevation and use of DME/assistive devices. Monitor lower extremities for skin lesions and educate on proper foot care Problem:Diabetic Foot Care Goal:Manage diabetic foot care Completed patient instructed on diabetic foot care including daily skin inspection and wearing proper footwear/avoiding going barefoot. Opioids- educated on high risk medication Problem:High Risk Medications Goal:Patient/caregive r will teach back high risk medication side effect and precaution education Completed patient educated on taking medication(s) as prescribed by provider. Do not stop medication or alter doses without speaking with your provider. Discuss medication effectiveness or side effect concerns with your provider and home care team. Only take opioids as prescribed, do not share your medications, and take proper precautions in storing and properly disposing of opioids once no longer needed. Possible side effects of opioid medication including sedation, decreased rate of breathing, and constipation. Report over sedation to prescribing provider and practice deep breathing techniques every hour while awake. Prevent constipation by increasing water and fiber intake, increasing activity as tolerated, and use stool softener(s) as prescribed. Antiplatelet- educated on high risk medication Problem:High Risk Medications Goal:Patient/caregive r will teach back high risk medication side effect and precaution education Completed patient educated on taking medication(s) as prescribed by provider. Do not stop medication or alter doses without speaking with your provider. Discuss medication effectiveness or side effect concerns with your provider and home care team. Discuss all medications you are taking, even [id number] medicines, with your provider and pharmacist since many drugs can interact with antiplatelet medications. If you forget to take a dose, DO NOT take a double dose. Take the missed dose as soon as possible on the same day. DO NOT take a double dose the next day to make up for the missed dose. Watch for signs of abnormal or excessive bleeding and bruising (refer to Bleeding Precautions education). Call your health care provider right away if you suspect something is wrong. Instruct on ongoing discharge plan Problem:Discharge Goal:Manage discharge planning Completed Ongoing Discharge plan: Discharge plan discussed with patient including frequency and duration for home PT and plan for transition to: outpatient therapy. Determine patient's Advance Directive Status Description: Patient does not have advance directives. Patient/Caregiver declined Advance Directive information. Problem:Advance Directives Goal:Patient/caregive r will make healthcare providers aware of and any changes to Advance Directives throughout certification period Completed Discussed Advance Directives with Patient and/or Caregiver. Referred patient to Home Care handbook for further information on Healthcare DPOA & Living Will. [facility] Visit Details Visit Type -PT ROUTINE Discipline -Physical Therapy Problems Problem Description Start Date Status Goals Interve ntions PT Impaired muscle performance and/or ROM Disciplines: PT 09/12/2022 Active 1 goal linked to scheduled/document ed intervention 1 goal intervention scheduled/document ed in this visit PT Impaired mobility Disciplines: PT 09/12/2022 Active 1 goal linked to scheduled/document ed intervention 1 goal intervention scheduled/document ed in this visit PT Impaired gait Disciplines: PT 09/12/2022 Active 1 goal linked to scheduled/document ed intervention 1 goal intervention scheduled/document ed in this visit PT Orthopedic Condition Disciplines: PT 09/12/2022 Active 1 goal linked to scheduled/document ed intervention 3 goal interventions scheduled/document ed in this visit PT Learning Assessment Disciplines: PT 09/12/2022 Active 1 goal linked to scheduled/document ed intervention 1 goal intervention scheduled/document ed in this visit Medication Education Disciplines: Skilled Services 09/12/2022 Active 1 goal linked to scheduled/document ed intervention 1 goal intervention scheduled/document ed in this visit Sepsis Disciplines: Skilled Services 09/12/2022 Active 1 goal linked to scheduled/document ed intervention 1 goal intervention scheduled/document ed in this visit Physician Specific Parameters Disciplines: Skilled Services 09/12/2022 Active 1 goal linked to scheduled/document ed intervention 1 goal intervention scheduled/document ed in this visit Risk for Falls Disciplines: Skilled Services 09/12/2022 Active 1 goal linked to scheduled/document ed intervention 1 goal intervention scheduled/document ed in this visit Pain Disciplines: Skilled Services 09/12/2022 Active 1 goal linked to scheduled/document ed intervention 1 goal intervention scheduled/document ed in this visit Goals Goal Associated Problem Outcome Goal Met? Visit Notes Improved Muscle Performance and/or ROM Description: LTG: Patient and/or caregiver will verbalize/demonstrate independence with home exercise program, to improve functional mobility, to be achieved by 10-05-22. LTG: Patient will demonstrate improved right knee active range of motion to 0-90 degrees, to meet functional goals, to be achieved by 10-05-22. PT Impaired muscle performance and/or ROM No Improved Transfers Description: STG: Patient will demonstrate safe transfers to/from bed, chair and toilet independently with AD, to be achieved by 09-21-22. LTG: Patient will demonstrate safe transfers to/from car with supervision, to be achieved by 10-05-22. PT Impaired mobility No Improved Gait Description: STG: Patient will demonstrate improved gait ability as evidenced by ambulation 100 feet with crutches with supervision, to be achieved by 09-21-22. LTG: Patient will demonstrate improved gait ability as evidenced by ambulation 150 feet with single point cane or crutches independently with AD, to return to safe household ambulation, to be achieved by 10-05-22. PT Impaired gait No Manage Orthopedic Condition Description: Improve patient and/or caregiver understanding of post surgical and/or non-surgical orthopedic intervention management as evidenced by patient and/or caregiver able to verbalize, demonstrate, and teach back instruction, to be achieved by 10-05-22. PT Orthopedic Condition No Demonstrate understanding of education Description: Patient and/or caregiver will understand educational instruction to be achieved by 10-05-22. PT Learning Assessment No Patient/caregiver will demonstrate ability to obtain, store, identify and administer ordered medications, keep accurate medication list in home, and adhere to medication schedule Description: Patient/caregiver will demonstrate ability to obtain, store, identify and administer ordered medications, keep accurate medication list in home, and adhere to medication schedule by 10-05-22. Medication Education No Patient/caregiver will be able to identify and report symptoms of sepsis Description: Patient/caregiver will be able to identify signs/symptoms of sepsis infection and will verbalize actions to take if suspected by 10-05-22. Sepsis No Patient to maintain parameters within physician-specified ranges throughout certification period Physician Specific Parameters No Manage Risk for falls Description: Patient/caregiver will verbalize knowledge of individualized fall prevention strategies by 10-05-22. Risk for Falls No Manage Pain Description: Patient/caregiver will verbalize knowledge and understanding of appropriate techniques to control pain, including pain medication and non-pharmacological techniques. Patient will verbalize or demonstrate an acceptable level of pain as evidenced by a pain score of 0-1/10 and improvement in ability to perform activities of daily living to be achieved by 10-05-22. Pain No Interventions Intervention Associated Problem/Goal Status Variance Visit Notes Physical Therapy Therapeutic Exercises Problem:PT Impaired muscle performance and/or ROM Goal:Improved Muscle Performance and/or ROM Completed PT instructed patient in: AP, QS, GS, SAQ's with PT assist, SLR with PT assist, heel slides (seated, gentle, small ROM) x6-10 reps each. Patient required both verbal/tactile cues for proper technique. PT instructed patient to perform HEP 2-3x/day increasing reps as tolerating within pain-free range. Physical Therapy Transfer Training Problem:PT Impaired mobility Goal:Improved Transfers Completed Transfer training and instruction to patient on safe transfers to and from chair with stand by assist and verbal cues for safety. Physical Therapy Gait Training Problem:PT Impaired gait Goal:Improved Gait Completed Gait training and instruction to patient on safe ambulation with bilateral crutches for 60, 90 feet with PT supervision, with verbal cues for corrections of gait deviations. Patient demonstrated forward flexed posture, step to gait pattern, decreased RT knee flexion during swing, no heel strike/toe off, and slowed pace. PT instructed patient to maintain upright posture, increase RT knee flexion for safe toe clearance. Instruct on orthopedic precautions and weight bearing restrictions Description: Orthopedic precautions including right total knee: no knee flexed over pillow at rest. Weight bearing restrictions include: WBAT of involved extremity. Problem:PT Orthopedic Condition Goal:Manage Orthopedic Condition Completed patient instructed on orthopedic precautions. Instruct on management of edema Problem:PT Orthopedic Condition Goal:Manage Orthopedic Condition Completed Instruct patient on management of edema including elevation of RT leg above the level of the heart, ice, medication adherence strategies and benefits of activity. Instruct on self-management of post surgical and/or non-surgical orthopedic intervention Problem:PT Orthopedic Condition Goal:Manage Orthopedic Condition Completed patient instructed on managagement of orthopedic condition, signs and symptoms of infection and signs and symptoms of DVT/PE. Instruct and educate on knowledge deficits Problem:PT Learning Assessment Goal:Demonstrate understanding of education Completed patient verbalize and/or demonstrate understanding of physical therapy education including orthopedic condition management, pain management, fall prevention strategies, home safety and home exercise program. Education methods include: verbal cues. Further education required to improve knowledge and compliance with home exercise program. Medication Education Description: Evaluate/instruct patient/caregiver on obtaining, storing, identifying and administering ordered medications as well as keeping accurate medication list in the home and adhereing to medication schedule Problem:Medication Education Goal:Patient/caregive r will demonstrate ability to obtain, store, identify and administer ordered medications, keep accurate medication list in home, and adhere to medication schedule Completed Patient instructed on importance of keeping accurate medication list in home and adhering to medication schedule. Risk of Sepsis Description: Patient is at risk for sepsis. Monitor closely for s/s of sepsis. Problem:Sepsis Goal:Patient/caregive r will be able to identify and report symptoms of sepsis Completed SPO2 Description: Notify Dr. Carpenter if pulse ox is <92% at rest. Problem:Physician Specific Parameters Goal:Patient to maintain parameters within physician-specified ranges throughout certification period Completed Instruct on individual fall risk factors and strategies to prevent falls and injuries caused by falls. Problem:Risk for Falls Goal:Manage Risk for falls Completed PT: Patient instructed on Eliminating Environmental Hazards: Keep pathways clear and Keep rooms and walkways well lit Managing Pain Instruct on pain and instruct on strategies to control pain Problem:Pain Goal:Manage Pain Completed patient instructed on techniques to control pain including Pharmacological measures and Non-Pharmacological measures; rest, positioning/elevation and use of DME/assistive devices. documented in this encounter [facility] home Plan of care note* Visit Details Visit Type -PT ROUTINE Discipline -Physical Therapy Problems Problem Description Start Date Status Goals Interve ntions PT Impaired muscle performance and/or ROM Disciplines: PT 09/12/2022 Active 1 goal linked to scheduled/documen mamadou intervention 1 goal intervention scheduled/document ed in this visit PT Impaired mobility Disciplines: PT 09/12/2022 Active 1 goal linked to scheduled/documen mamadou intervention 1 goal intervention scheduled/document ed in this visit PT Impaired gait Disciplines: PT 09/12/2022 Active 1 goal linked to scheduled/documen mamadou intervention 1 goal intervention scheduled/document ed in this visit PT Orthopedic Condition Disciplines: PT 09/12/2022 Active 1 goal linked to scheduled/documen mamadou intervention 3 goal interventions scheduled/document ed in this visit PT Learning Assessment Disciplines: PT 09/12/2022 Active 1 goal linked to scheduled/documen mamadou intervention 1 goal intervention scheduled/document ed in this visit PT Cardiovascular Disease Disciplines: PT 09/12/2022 Active 1 goal linked to scheduled/documen mamadou intervention 1 goal intervention scheduled/document ed in this visit Medication Education Disciplines: Skilled Services 09/12/2022 Active 1 goal linked to scheduled/documen mamadou intervention 1 goal intervention scheduled/document ed in this visit Sepsis Disciplines: Skilled Services 09/12/2022 Active 1 goal linked to scheduled/documen mamadou intervention 1 goal intervention scheduled/document ed in this visit Physician Specific Parameters Disciplines: Skilled Services 09/12/2022 Active 1 goal linked to scheduled/documen mamadou intervention 1 goal intervention scheduled/document ed in this visit Risk for Falls Disciplines: Skilled Services 09/12/2022 Active 1 goal linked to scheduled/documen mamadou intervention 1 goal intervention scheduled/document ed in this visit Pain Disciplines: Skilled Services 09/12/2022 Active 1 goal linked to scheduled/documen mamadou intervention 1 goal intervention scheduled/document ed in this visit High Risk Medications Disciplines: Skilled Services 09/12/2022 Active 1 goal linked to scheduled/documen mamadou intervention 1 goal intervention scheduled/document ed in this visit Goals Goal Associated Problem Outcome Goal Met? Visit Notes Improved Muscle Performance and/or ROM Description: LTG: Patient and/or caregiver will verbalize/demonstrate independence with home exercise program, to improve functional mobility, to be achieved by 10-05-22. LTG: Patient will demonstrate improved right knee active range of motion to 0-90 degrees, to meet functional goals, to be achieved by 10-05-22. PT Impaired muscle performance and/or ROM No Improved Transfers Description: STG: Patient will demonstrate safe transfers to/from bed, chair and toilet independently with AD, to be achieved by 09-21-22. LTG: Patient will demonstrate safe transfers to/from car with supervision, to be achieved by 10-05-22. PT Impaired mobility No Improved Gait Description: STG: Patient will demonstrate improved gait ability as evidenced by ambulation 100 feet with crutches with supervision, to be achieved by 09-21-22. LTG: Patient will demonstrate improved gait ability as evidenced by ambulation 150 feet with single point cane or crutches independently with AD, to return to safe household ambulation, to be achieved by 10-05-22. PT Impaired gait No Manage Orthopedic Condition Description: Improve patient and/or caregiver understanding of post surgical and/or non-surgical orthopedic intervention management as evidenced by patient and/or caregiver able to verbalize, demonstrate, and teach back instruction, to be achieved by 10-05-22. PT Orthopedic Condition No Demonstrate understanding of education Description: Patient and/or caregiver will understand educational instruction to be achieved by 10-05-22. PT Learning Assessment No Manage Secondary Cardiovascular disease Description: Improve patient and/or caregiver understanding of secondary cardiovascular disease management as evidenced by patient and/or caregiver able to verbalize, demonstrate, and teach back instruction, to be achieved by 10-05-22. PT Cardiovascular Disease No Patient/caregiver will demonstrate ability to obtain, store, identify and administer ordered medications, keep accurate medication list in home, and adhere to medication schedule Description: Patient/caregiver will demonstrate ability to obtain, store, identify and administer ordered medications, keep accurate medication list in home, and adhere to medication schedule by 10-05-22. Medication Education No Patient/caregiver will be able to identify and report symptoms of sepsis Description: Patient/caregiver will be able to identify signs/symptoms of sepsis infection and will verbalize actions to take if suspected by 10-05-22. Sepsis No Patient to maintain parameters within physician-specified ranges throughout certification period Physician Specific Parameters No Manage Risk for falls Description: Patient/caregiver will verbalize knowledge of individualized fall prevention strategies by 10-05-22. Risk for Falls No Manage Pain Description: Patient/caregiver will verbalize knowledge and understanding of appropriate techniques to control pain, including pain medication and non-pharmacological techniques. Patient will verbalize or demonstrate an acceptable level of pain as evidenced by a pain score of 0-1/10 and improvement in ability to perform activities of daily living to be achieved by 10-05-22. Pain No Patient/caregiver will teach back high risk medication side effect and precaution education High Risk Medications No Interventions Intervention Associated Problem/Goal Status Variance Visit Notes Physical Therapy Therapeutic Exercises Problem:PT Impaired muscle performance and/or ROM Goal:Improved Muscle Performance and/or ROM Completed PT instructed patient in: AP, QS, GS, SAQ's with PT assist, SLR with PT assist, heel slides (seated, gentle, small ROM) x8-10 reps each. Terminal knee extension stretch with heel propped x 2 minutes. Patient required both verbal/tactile cues for proper technique. PT instructed patient to perform HEP 2-3x/day increasing reps as tolerating within pain-free range. Physical Therapy Transfer Training Problem:PT Impaired mobility Goal:Improved Transfers Completed Transfer training and instruction to patient on safe transfers to and from chair and couch with supervision and verbal cues for safety. Physical Therapy Gait Training Problem:PT Impaired gait Goal:Improved Gait Completed Gait training and instruction to patient on safe ambulation with bilateral crutches for 60, 100 feet with PT supervision, with verbal cues for corrections of gait deviations. Patient demonstrated forward flexed posture, step to gait pattern, decreased RT knee flexion during swing, no heel strike/toe off, and slowed pace. PT instructed patient to maintain upright posture, increase RT knee flexion for safe toe clearance. Instruct on orthopedic precautions and weight bearing restrictions Description: Orthopedic precautions including right total knee: no knee flexed over pillow at rest. Weight bearing restrictions include: WBAT of involved extremity. Problem:PT Orthopedic Condition Goal:Manage Orthopedic Condition Completed patient instructed on orthopedic precautions. Instruct on management of edema Problem:PT Orthopedic Condition Goal:Manage Orthopedic Condition Completed Instruct patient on management of edema including elevation of RT knee above the level of the heart, ice, medication adherence strategies and benefits of activity. Instruct on self-management of post surgical and/or non-surgical orthopedic intervention Problem:PT Orthopedic Condition Goal:Manage Orthopedic Condition Completed patient instructed on managagement of orthopedic condition, signs and symptoms of infection and signs and symptoms of DVT/PE. Instruct and educate on knowledge deficits Problem:PT Learning Assessment Goal:Demonstrate understanding of education Completed patient verbalize and/or demonstrate understanding of physical therapy education including surgical precautions and pain management. Instruct on signs, symptoms, and management of secondary cardiovascular disease Problem:PT Cardiovascular Disease Goal:Manage Secondary Cardiovascular disease Completed Instructed patient on energy conservation. Medication Education Description: Evaluate/instruct patient/caregiver on obtaining, storing, identifying and administering ordered medications as well as keeping accurate medication list in the home and adhereing to medication schedule Problem:Medication Education Goal:Patient/caregive r will demonstrate ability to obtain, store, identify and administer ordered medications, keep accurate medication list in home, and adhere to medication schedule Completed Patient instructed on importance of keeping accurate medication list in home and adhering to medication schedule. Risk of Sepsis Description: Patient is at risk for sepsis. Monitor closely for s/s of sepsis. Problem:Sepsis Goal:Patient/caregive r will be able to identify and report symptoms of sepsis Completed SPO2 Description: Notify Dr. Carpenter if pulse ox is <92% at rest. Problem:Physician Specific Parameters Goal:Patient to maintain parameters within physician-specified ranges throughout certification period Completed Instruct on individual fall risk factors and strategies to prevent falls and injuries caused by falls. Problem:Risk for Falls Goal:Manage Risk for falls Completed PT: Patient instructed on Eliminating Environmental Hazards: Keep pathways clear and Keep rooms and walkways well lit Managing Pain Instruct on pain and instruct on strategies to control pain Problem:Pain Goal:Manage Pain Completed patient instructed on techniques to control pain including Pharmacological measures and Non-Pharmacological measures; rest, positioning/elevation and use of DME/assistive devices. Opioids- educated on high risk medication Problem:High Risk Medications Goal:Patient/caregive r will teach back high risk medication side effect and precaution education Completed patient educated on taking medication(s) as prescribed by provider. Do not stop medication or alter doses without speaking with your provider. Discuss medication effectiveness or side effect concerns with your provider and home care team. Only take opioids as prescribed, do not share your medications, and take proper precautions in storing and properly disposing of opioids once no longer needed. Possible side effects of opioid medication including sedation, decreased rate of breathing, and constipation. Report over sedation to prescribing provider and practice deep breathing techniques every hour while awake. Prevent constipation by increasing water and fiber intake, increasing activity as tolerated, and use stool softener(s) as prescribed. documented in this encounter [facility] home Plan of care note* Visit Details Visit Type -PT ROUTINE Discipline -Physical Therapy Problems Problem Description Start Date Status Goals Interve ntions PT Impaired muscle performance and/or ROM Disciplines: PT 09/12/2022 Active 1 goal linked to scheduled/document ed intervention 1 goal intervention scheduled/document ed in this visit PT Impaired mobility Disciplines: PT 09/12/2022 Active 1 goal linked to scheduled/document ed intervention 1 goal intervention scheduled/document ed in this visit PT Impaired gait Disciplines: PT 09/12/2022 Active 1 goal linked to scheduled/document ed intervention 1 goal intervention scheduled/document ed in this visit PT Orthopedic Condition Disciplines: PT 09/12/2022 Active 1 goal linked to scheduled/document ed intervention 3 goal interventions scheduled/document ed in this visit PT Learning Assessment Disciplines: PT 09/12/2022 Active 1 goal linked to scheduled/document ed intervention 1 goal intervention scheduled/document ed in this visit Medication Education Disciplines: Skilled Services 09/12/2022 Active 1 goal linked to scheduled/document ed intervention 1 goal intervention scheduled/document ed in this visit Sepsis Disciplines: Skilled Services 09/12/2022 Active 1 goal linked to scheduled/document ed intervention 1 goal intervention scheduled/document ed in this visit Physician Specific Parameters Disciplines: Skilled Services 09/12/2022 Active 1 goal linked to scheduled/document ed intervention 1 goal intervention scheduled/document ed in this visit Risk for Falls Disciplines: Skilled Services 09/12/2022 Active 1 goal linked to scheduled/document ed intervention 1 goal intervention scheduled/document ed in this visit Pain Disciplines: Skilled Services 09/12/2022 Active 1 goal linked to scheduled/document ed intervention 1 goal intervention scheduled/document ed in this visit Goals Goal Associated Problem Outcome Goal Met? Visit Notes Improved Muscle Performance and/or ROM Description: LTG: Patient and/or caregiver will verbalize/demonstrate independence with home exercise program, to improve functional mobility, to be achieved by 10-05-22. LTG: Patient will demonstrate improved right knee active range of motion to 0-90 degrees, to meet functional goals, to be achieved by 10-05-22. PT Impaired muscle performance and/or ROM No Improved Transfers Description: STG: Patient will demonstrate safe transfers to/from bed, chair and toilet independently with AD, to be achieved by 09-21-22. LTG: Patient will demonstrate safe transfers to/from car with supervision, to be achieved by 10-05-22. PT Impaired mobility No Improved Gait Description: STG: Patient will demonstrate improved gait ability as evidenced by ambulation 100 feet with crutches with supervision, to be achieved by 09-21-22. LTG: Patient will demonstrate improved gait ability as evidenced by ambulation 150 feet with single point cane or crutches independently with AD, to return to safe household ambulation, to be achieved by 10-05-22. PT Impaired gait No Manage Orthopedic Condition Description: Improve patient and/or caregiver understanding of post surgical and/or non-surgical orthopedic intervention management as evidenced by patient and/or caregiver able to verbalize, demonstrate, and teach back instruction, to be achieved by 10-05-22. PT Orthopedic Condition No Demonstrate understanding of education Description: Patient and/or caregiver will understand educational instruction to be achieved by 10-05-22. PT Learning Assessment No Patient/caregiver will demonstrate ability to obtain, store, identify and administer ordered medications, keep accurate medication list in home, and adhere to medication schedule Description: Patient/caregiver will demonstrate ability to obtain, store, identify and administer ordered medications, keep accurate medication list in home, and adhere to medication schedule by 10-05-22. Medication Education No Patient/caregiver will be able to identify and report symptoms of sepsis Description: Patient/caregiver will be able to identify signs/symptoms of sepsis infection and will verbalize actions to take if suspected by 10-05-22. Sepsis No Patient to maintain parameters within physician-specified ranges throughout certification period Physician Specific Parameters No Manage Risk for falls Description: Patient/caregiver will verbalize knowledge of individualized fall prevention strategies by 10-05-22. Risk for Falls No Manage Pain Description: Patient/caregiver will verbalize knowledge and understanding of appropriate techniques to control pain, including pain medication and non-pharmacological techniques. Patient will verbalize or demonstrate an acceptable level of pain as evidenced by a pain score of 0-1/10 and improvement in ability to perform activities of daily living to be achieved by 10-05-22. Pain No Interventions Intervention Associated Problem/Goal Status Variance Visit Notes Physical Therapy Therapeutic Exercises Problem:PT Impaired muscle performance and/or ROM Goal:Improved Muscle Performance and/or ROM Completed PT instructed patient in: AP, QS, GS, SAQ's, SLR, heel slides (seated) x8-10 reps each. Terminal knee extension stretch with heel propped x 2 minutes. Standing heel raises, hip abduction, hip flexion. Patient required verbal cues for proper technique. PT instructed patient to perform HEP 2-3x/day increasing reps as tolerating within pain-free range. Physical Therapy Transfer Training Problem:PT Impaired mobility Goal:Improved Transfers Completed Transfer training and instruction to patient on safe transfers to and from chair and couch with supervision and verbal cues for technique. Physical Therapy Gait Training Problem:PT Impaired gait Goal:Improved Gait Completed Gait training and instruction to patient on safe ambulation with bilateral crutches for 60, 110 feet with PT supervision, with verbal cues for corrections of gait deviations. Patient demonstrated forward flexed posture, step to gait pattern, decreased RT knee flexion during swing, no heel strike/toe off, and slowed pace. PT instructed patient to maintain upright posture, increase RT knee flexion during swing phase. Instruct on orthopedic precautions and weight bearing restrictions Description: Orthopedic precautions including right total knee: no knee flexed over pillow at rest. Weight bearing restrictions include: WBAT of involved extremity. Problem:PT Orthopedic Condition Goal:Manage Orthopedic Condition Completed patient instructed on orthopedic precautions. Instruct on management of edema Problem:PT Orthopedic Condition Goal:Manage Orthopedic Condition Completed Instruct patient on management of edema including elevation of RT knee above the level of the heart, ice, medication adherence strategies and benefits of activity. Instruct on self-management of post surgical and/or non-surgical orthopedic intervention Problem:PT Orthopedic Condition Goal:Manage Orthopedic Condition Completed patient instructed on managagement of orthopedic condition, signs and symptoms of infection and signs and symptoms of DVT/PE. Instruct and educate on knowledge deficits Problem:PT Learning Assessment Goal:Demonstrate understanding of education Completed patient verbalize and/or demonstrate understanding of physical therapy education including orthopedic condition management and pain management. Medication Education Description: Evaluate/instruct patient/caregiver on obtaining, storing, identifying and administering ordered medications as well as keeping accurate medication list in the home and adhereing to medication schedule Problem:Medication Education Goal:Patient/caregive r will demonstrate ability to obtain, store, identify and administer ordered medications, keep accurate medication list in home, and adhere to medication schedule Completed Patient instructed on importance of keeping accurate medication list in home and adhering to medication schedule. Risk of Sepsis Description: Patient is at risk for sepsis. Monitor closely for s/s of sepsis. Problem:Sepsis Goal:Patient/caregive r will be able to identify and report symptoms of sepsis Completed SPO2 Description: Notify Dr. Carpenter if pulse ox is <92% at rest. Problem:Physician Specific Parameters Goal:Patient to maintain parameters within physician-specified ranges throughout certification period Completed Instruct on individual fall risk factors and strategies to prevent falls and injuries caused by falls. Problem:Risk for Falls Goal:Manage Risk for falls Completed PT: Patient instructed on Managing Pain Instruct on pain and instruct on strategies to control pain Problem:Pain Goal:Manage Pain Completed patient instructed on techniques to control pain including Pharmacological measures and Non-Pharmacological measures; rest and use of DME/assistive devices. documented in this encounter [facility] home Plan of care note* Visit Details Visit Type -PT ROUTINE Discipline -Physical Therapy Problems Problem Description Start Date Status Goals Interve ntions PT Impaired muscle performance and/or ROM Disciplines: PT 09/12/2022 Active 1 goal linked to scheduled/documen mamadou intervention 1 goal intervention scheduled/document ed in this visit PT Impaired mobility Disciplines: PT 09/12/2022 Active 1 goal linked to scheduled/documen mamadou intervention 1 goal intervention scheduled/document ed in this visit PT Impaired gait Disciplines: PT 09/12/2022 Active 1 goal linked to scheduled/documen mamadou intervention 1 goal intervention scheduled/document ed in this visit PT Orthopedic Condition Disciplines: PT 09/12/2022 Active 1 goal linked to scheduled/documen mamadou intervention 3 goal interventions scheduled/document ed in this visit PT Cardiovascular Disease Disciplines: PT 09/12/2022 Active 1 goal linked to scheduled/documen mamadou intervention 1 goal intervention scheduled/document ed in this visit Medication Education Disciplines: Skilled Services 09/12/2022 Active 1 goal linked to scheduled/documen mamadou intervention 1 goal intervention scheduled/document ed in this visit Sepsis Disciplines: Skilled Services 09/12/2022 Active 1 goal linked to scheduled/documen mamadou intervention 1 goal intervention scheduled/document ed in this visit Physician Specific Parameters Disciplines: Skilled Services 09/12/2022 Active 1 goal linked to scheduled/documen mamadou intervention 1 goal intervention scheduled/document ed in this visit Risk for Falls Disciplines: Skilled Services 09/12/2022 Active 1 goal linked to scheduled/documen mamadou intervention 1 goal intervention scheduled/document ed in this visit Pain Disciplines: Skilled Services 09/12/2022 Active 1 goal linked to scheduled/documen mamadou intervention 1 goal intervention scheduled/document ed in this visit Goals Goal Associated Problem Outcome Goal Met? Visit Notes Improved Muscle Performance and/or ROM Description: LTG: Patient and/or caregiver will verbalize/demonstrate independence with home exercise program, to improve functional mobility, to be achieved by 10-05-22. LTG: Patient will demonstrate improved right knee active range of motion to 0-90 degrees, to meet functional goals, to be achieved by 10-05-22. PT Impaired muscle performance and/or ROM No Improved Transfers Description: STG: Patient will demonstrate safe transfers to/from bed, chair and toilet independently with AD, to be achieved by 09-21-22. LTG: Patient will demonstrate safe transfers to/from car with supervision, to be achieved by 10-05-22. PT Impaired mobility No Improved Gait Description: STG: Patient will demonstrate improved gait ability as evidenced by ambulation 100 feet with crutches with supervision, to be achieved by 09-21-22. LTG: Patient will demonstrate improved gait ability as evidenced by ambulation 150 feet with single point cane or crutches independently with AD, to return to safe household ambulation, to be achieved by 10-05-22. PT Impaired gait No Manage Orthopedic Condition Description: Improve patient and/or caregiver understanding of post surgical and/or non-surgical orthopedic intervention management as evidenced by patient and/or caregiver able to verbalize, demonstrate, and teach back instruction, to be achieved by 10-05-22. PT Orthopedic Condition No Manage Secondary Cardiovascular disease Description: Improve patient and/or caregiver understanding of secondary cardiovascular disease management as evidenced by patient and/or caregiver able to verbalize, demonstrate, and teach back instruction, to be achieved by 10-05-22. PT Cardiovascular Disease No Patient/caregiver will demonstrate ability to obtain, store, identify and administer ordered medications, keep accurate medication list in home, and adhere to medication schedule Description: Patient/caregiver will demonstrate ability to obtain, store, identify and administer ordered medications, keep accurate medication list in home, and adhere to medication schedule by 10-05-22. Medication Education No Patient/caregiver will be able to identify and report symptoms of sepsis Description: Patient/caregiver will be able to identify signs/symptoms of sepsis infection and will verbalize actions to take if suspected by 10-05-22. Sepsis No Patient to maintain parameters within physician-specified ranges throughout certification period Physician Specific Parameters No Manage Risk for falls Description: Patient/caregiver will verbalize knowledge of individualized fall prevention strategies by 10-05-22. Risk for Falls No Manage Pain Description: Patient/caregiver will verbalize knowledge and understanding of appropriate techniques to control pain, including pain medication and non-pharmacological techniques. Patient will verbalize or demonstrate an acceptable level of pain as evidenced by a pain score of 0-1/10 and improvement in ability to perform activities of daily living to be achieved by 10-05-22. Pain No Interventions Intervention Associated Problem/Goal Status Variance Visit Notes Physical Therapy Therapeutic Exercises Problem:PT Impaired muscle performance and/or ROM Goal:Improved Muscle Performance and/or ROM Completed PT instructed patient in: AP, QS, GS, SAQ's, SLR, heel slides (seated) x8-10 reps each. Terminal knee extension stretch with heel propped x 2 minutes. Standing heel raises, hip abduction, hip flexion. Standing knee flexion stretch with RT foot on step. Patient required verbal cues for proper technique. PT instructed patient to perform HEP 2-3x/day increasing reps as tolerating within pain-free range. Physical Therapy Transfer Training Problem:PT Impaired mobility Goal:Improved Transfers Completed Transfer training and instruction to patient on safe transfers to and from chair with supervision and verbal cues for safety. Physical Therapy Gait Training Problem:PT Impaired gait Goal:Improved Gait Completed Gait training and instruction to patient on safe ambulation with bilateral crutches for 60, 120 feet with PT supervision, with verbal cues for corrections of gait deviations. Patient demonstrated forward flexed posture, step to gait pattern, decreased RT knee flexion during swing, no heel strike/toe off, and slowed pace. PT instructed patient to maintain upright posture, increase RT knee flexion during swing phase. Instruct on orthopedic precautions and weight bearing restrictions Description: Orthopedic precautions including right total knee: no knee flexed over pillow at rest. Weight bearing restrictions include: WBAT of involved extremity. Problem:PT Orthopedic Condition Goal:Manage Orthopedic Condition Completed patient instructed on orthopedic precautions. Instruct on management of edema Problem:PT Orthopedic Condition Goal:Manage Orthopedic Condition Completed Instruct patient on management of edema including elevation of RT knee above the level of the heart and ice. Instruct on self-management of post surgical and/or non-surgical orthopedic intervention Problem:PT Orthopedic Condition Goal:Manage Orthopedic Condition Completed patient instructed on managagement of orthopedic condition, signs and symptoms of infection and signs and symptoms of DVT/PE. Instruct on signs, symptoms, and management of secondary cardiovascular disease Problem:PT Cardiovascular Disease Goal:Manage Secondary Cardiovascular disease Completed Instructed patient on energy conservation. Medication Education Description: Evaluate/instruct patient/caregiver on obtaining, storing, identifying and administering ordered medications as well as keeping accurate medication list in the home and adhereing to medication schedule Problem:Medication Education Goal:Patient/caregive r will demonstrate ability to obtain, store, identify and administer ordered medications, keep accurate medication list in home, and adhere to medication schedule Completed Patient instructed on importance of keeping accurate medication list in home and adhering to medication schedule. Risk of Sepsis Description: Patient is at risk for sepsis. Monitor closely for s/s of sepsis. Problem:Sepsis Goal:Patient/caregive r will be able to identify and report symptoms of sepsis Completed SPO2 Description: Notify Dr. Carpenter if pulse ox is <92% at rest. Problem:Physician Specific Parameters Goal:Patient to maintain parameters within physician-specified ranges throughout certification period Completed Instruct on individual fall risk factors and strategies to prevent falls and injuries caused by falls. Problem:Risk for Falls Goal:Manage Risk for falls Completed PT: Patient instructed on Eliminating Environmental Hazards: Keep pathways clear Managing Pain Instruct on pain and instruct on strategies to control pain Problem:Pain Goal:Manage Pain Completed patient instructed on techniques to control pain including Pharmacological measures and Non-Pharmacological measures; rest, positioning/elevation and use of DME/assistive devices. [facility] Visit Details Visit Type -PT ROUTINE Discipline -Physical Therapy Problems Problem Description Start Date Status Goals Interve ntions PT Impaired muscle performance and/or ROM Disciplines: PT 09/12/2022 Active 1 goal linked to scheduled/document ed intervention 1 goal intervention scheduled/document ed in this visit PT Impaired gait Disciplines: PT 09/12/2022 Active 2 goals linked to scheduled/document ed interventions 2 goal interventions scheduled/document ed in this visit PT Orthopedic Condition Disciplines: PT 09/12/2022 Active 1 goal linked to scheduled/document ed intervention 3 goal interventions scheduled/document ed in this visit PT Learning Assessment Disciplines: PT 09/12/2022 Active 1 goal linked to scheduled/document ed intervention 1 goal intervention scheduled/document ed in this visit Medication Education Disciplines: Skilled Services 09/12/2022 Active 1 goal linked to scheduled/document ed intervention 1 goal intervention scheduled/document ed in this visit Sepsis Disciplines: Skilled Services 09/12/2022 Active 1 goal linked to scheduled/document ed intervention 1 goal intervention scheduled/document ed in this visit Physician Specific Parameters Disciplines: Skilled Services 09/12/2022 Active 1 goal linked to scheduled/document ed intervention 1 goal intervention scheduled/document ed in this visit Risk for Falls Disciplines: Skilled Services 09/12/2022 Active 1 goal linked to scheduled/document ed intervention 1 goal intervention scheduled/document ed in this visit Pain Disciplines: Skilled Services 09/12/2022 Active 1 goal linked to scheduled/document ed intervention 1 goal intervention scheduled/document ed in this visit Goals Goal Associated Problem Outcome Goal Met? Visit Notes Improved Muscle Performance and/or ROM Description: LTG: Patient and/or caregiver will verbalize/demonstrate independence with home exercise program, to improve functional mobility, to be achieved by 10-05-22. LTG: Patient will demonstrate improved right knee active range of motion to 0-90 degrees, to meet functional goals, to be achieved by 10-05-22. PT Impaired muscle performance and/or ROM No Improved Stair Climbing Description: LTG: Patient will demonstrate improved stair negotiation as evidenced by ascend/descend 1 exit step and 14 indoor steps with railing independently, to safely access all areas of the home and exit home, to be achieved by 10-05-22. PT Impaired gait No Improved Gait Description: STG: Patient will demonstrate improved gait ability as evidenced by ambulation 100 feet with crutches with supervision, to be achieved by 09-21-22. LTG: Patient will demonstrate improved gait ability as evidenced by ambulation 150 feet with single point cane or crutches independently with AD, to return to safe household ambulation, to be achieved by 10-05-22. PT Impaired gait No Manage Orthopedic Condition Description: Improve patient and/or caregiver understanding of post surgical and/or non-surgical orthopedic intervention management as evidenced by patient and/or caregiver able to verbalize, demonstrate, and teach back instruction, to be achieved by 10-05-22. PT Orthopedic Condition No Demonstrate understanding of education Description: Patient and/or caregiver will understand educational instruction to be achieved by 10-05-22. PT Learning Assessment No Patient/caregiver will demonstrate ability to obtain, store, identify and administer ordered medications, keep accurate medication list in home, and adhere to medication schedule Description: Patient/caregiver will demonstrate ability to obtain, store, identify and administer ordered medications, keep accurate medication list in home, and adhere to medication schedule by 10-05-22. Medication Education No Patient/caregiver will be able to identify and report symptoms of sepsis Description: Patient/caregiver will be able to identify signs/symptoms of sepsis infection and will verbalize actions to take if suspected by 10-05-22. Sepsis No Patient to maintain parameters within physician-specified ranges throughout certification period Physician Specific Parameters No Manage Risk for falls Description: Patient/caregiver will verbalize knowledge of individualized fall prevention strategies by 10-05-22. Risk for Falls No Manage Pain Description: Patient/caregiver will verbalize knowledge and understanding of appropriate techniques to control pain, including pain medication and non-pharmacological techniques. Patient will verbalize or demonstrate an acceptable level of pain as evidenced by a pain score of 0-1/10 and improvement in ability to perform activities of daily living to be achieved by 10-05-22. Pain No Interventions Intervention Associated Problem/Goal Status Variance Visit Notes Physical Therapy Therapeutic Exercises Problem:PT Impaired muscle performance and/or ROM Goal:Improved Muscle Performance and/or ROM Completed PT instructed patient in: AP, QS, GS, SAQ's, SLR, heel slides (seated) x8-10 reps each. Terminal knee extension stretch with heel propped x 2 minutes. Standing heel raises, hip abduction, hip flexion. Standing knee flexion stretch with RT foot on step. Seated passive knee flexion, leg dangling x 2 minutes. Patient required verbal cues for proper technique. PT instructed patient to perform HEP 2-3x/day increasing reps as tolerating within pain-free range. Physical Therapy Stair Training Problem:PT Impaired gait Goal:Improved Stair Climbing Completed Stair training and instruction to patient on safe stair climbing, ascend/descend 7 indoor steps, with crutch with supervision and verbal cues for safety and technique. Physical Therapy Gait Training Problem:PT Impaired gait Goal:Improved Gait Completed Gait training and instruction to patient on safe ambulation with single crutch for 60, 120 feet with PT supervision, with verbal cues for corrections of gait deviations. Patient demonstrating decreased RT knee flexion during swing and slowed pace. PT instructed patient to maintain upright posture, increase RT knee flexion during swing phase. PT educated patient on how to transition from crutch/cane to no device. Gait training and instruction to patient on safe ambulation with standard cane with PT supervision for 120 feet with PT supervision, with verbal cues for corrections of gait deviations. PT adjusted cane height for patient. Instruct on orthopedic precautions and weight bearing restrictions Description: Orthopedic precautions including right total knee: no knee flexed over pillow at rest. Weight bearing restrictions include: WBAT of involved extremity. Problem:PT Orthopedic Condition Goal:Manage Orthopedic Condition Completed patient instructed on orthopedic precautions. Instruct on management of edema Problem:PT Orthopedic Condition Goal:Manage Orthopedic Condition Completed Instruct patient on management of edema including elevation of RT knee above the level of the heart and ice. Instruct on self-management of post surgical and/or non-surgical orthopedic intervention Problem:PT Orthopedic Condition Goal:Manage Orthopedic Condition Completed patient instructed on managagement of orthopedic condition, signs and symptoms of infection and signs and symptoms of DVT/PE. Instruct and educate on knowledge deficits Problem:PT Learning Assessment Goal:Demonstrate understanding of education Completed patient verbalize and/or demonstrate understanding of physical therapy education including orthopedic condition management, pain management, fall prevention strategies, home safety and home exercise program. Education methods include: verbal cues. Further education required to improve knowledge and compliance with home exercise program. Medication Education Description: Evaluate/instruct patient/caregiver on obtaining, storing, identifying and administering ordered medications as well as keeping accurate medication list in the home and adhereing to medication schedule Problem:Medication Education Goal:Patient/caregive r will demonstrate ability to obtain, store, identify and administer ordered medications, keep accurate medication list in home, and adhere to medication schedule Completed Patient instructed on importance of keeping accurate medication list in home and adhering to medication schedule. Risk of Sepsis Description: Patient is at risk for sepsis. Monitor closely for s/s of sepsis. Problem:Sepsis Goal:Patient/caregive r will be able to identify and report symptoms of sepsis Completed SPO2 Description: Notify Dr. Carpenter if pulse ox is <92% at rest. Problem:Physician Specific Parameters Goal:Patient to maintain parameters within physician-specified ranges throughout certification period Completed Instruct on individual fall risk factors and strategies to prevent falls and injuries caused by falls. Problem:Risk for Falls Goal:Manage Risk for falls Completed PT: Patient instructed on Managing Pain crutch use. Instruct on pain and instruct on strategies to control pain Problem:Pain Goal:Manage Pain Completed patient instructed on techniques to control pain including Pharmacological measures and Non-Pharmacological measures; rest and use of DME/assistive devices. [facility] Visit Details Visit Type -PT AGENCY DC [facility] Discipline -Physical Therapy Problems Problem Description Start Date Status Goals Interve ntions PT Impaired muscle performance and/or ROM Disciplines: PT 09/12/2022 Resolved on 09/30/2022 1 goal linked to scheduled/documen mamadou intervention 1 goal intervention scheduled/documen mamadou in this visit PT Impaired mobility Disciplines: PT 09/12/2022 Resolved on 09/30/2022 2 goals linked to scheduled/documen mamadou interventions 1 goal intervention scheduled/documen mamadou in this visit PT Impaired gait Disciplines: PT 09/12/2022 Resolved on 09/30/2022 2 goals linked to scheduled/documen mamadou interventions 2 goal interventions scheduled/documen mamadou in this visit PT Impaired balance Disciplines: PT 09/12/2022 Resolved on 09/30/2022 1 goal linked to scheduled/documen mamadou intervention PT Orthopedic Condition Disciplines: PT 09/12/2022 Resolved on 09/30/2022 1 goal linked to scheduled/documen mamadou intervention 2 goal interventions scheduled/documen mamadou in this visit PT Learning Assessment Disciplines: PT 09/12/2022 Resolved on 09/30/2022 1 goal linked to scheduled/documen mamadou intervention 1 goal intervention scheduled/documen mamadou in this visit PT Cardiovascular Disease Disciplines: PT 09/12/2022 Resolved on 09/30/2022 1 goal linked to scheduled/documen mamadou intervention Medication Education Disciplines: Skilled Services 09/12/2022 Resolved on 09/30/2022 1 goal linked to scheduled/documen mamadou intervention 1 goal intervention scheduled/documen mamadou in this visit Sepsis Disciplines: Skilled Services 09/12/2022 Resolved on 09/30/2022 1 goal linked to scheduled/documen mamadou intervention Physician Specific Parameters Disciplines: Skilled Services 09/12/2022 Resolved on 09/30/2022 1 goal linked to scheduled/documen mamaduo intervention 1 goal intervention scheduled/documen mamadou in this visit Risk for Falls Disciplines: Skilled Services 09/12/2022 Resolved on 09/30/2022 1 goal linked to scheduled/documen mamadou intervention Pain Disciplines: Skilled Services 09/12/2022 Resolved on 09/30/2022 1 goal linked to scheduled/documen mamadou intervention 1 goal intervention scheduled/documen mamadou in this visit Diabetic Foot Care Disciplines: Skilled Services 09/12/2022 Resolved on 09/30/2022 1 goal linked to scheduled/documen mamadou intervention High Risk Medications Disciplines: Skilled Services 09/12/2022 Resolved on 09/30/2022 1 goal linked to scheduled/documen mamadou intervention Discharge Disciplines: Skilled Services 09/12/2022 Resolved on 09/30/2022 1 goal linked to scheduled/documen mamadou intervention 1 goal intervention scheduled/documen mamadou in this visit Advance Directives Disciplines: Skilled Services 09/12/2022 Resolved on 09/30/2022 1 goal linked to scheduled/documen mamadou intervention Goals Goal Associated Problem Outcome Goal Met? Visit Notes Improved Muscle Performance and/or ROM Description: LTG: Patient and/or caregiver will verbalize/demonstrate independence with home exercise program, to improve functional mobility, to be achieved by 10-05-22. LTG: Patient will demonstrate improved right knee active range of motion to 0-90 degrees, to meet functional goals, to be achieved by 10-05-22. PT Impaired muscle performance and/or ROM Completed Yes Improved Transfers Description: STG: Patient will demonstrate safe transfers to/from bed, chair and toilet independently with AD, to be achieved by 09-21-22. LTG: Patient will demonstrate safe transfers to/from car with supervision, to be achieved by 10-05-22. PT Impaired mobility Completed Yes Improved Bed Mobility Description: STG: Patient will demonstrate improved supine <> sit independently to be achieved by 09-21-22. PT Impaired mobility Completed Yes Improved Stair Climbing Description: LTG: Patient will demonstrate improved stair negotiation as evidenced by ascend/descend 1 exit step and 14 indoor steps with railing independently, to safely access all areas of the home and exit home, to be achieved by 10-05-22. PT Impaired gait Completed Yes Improved Gait Description: STG: Patient will demonstrate improved gait ability as evidenced by ambulation 100 feet with crutches with supervision, to be achieved by 09-21-22. LTG: Patient will demonstrate improved gait ability as evidenced by ambulation 150 feet with single point cane or crutches independently with AD, to return to safe household ambulation, to be achieved by 10-05-22. PT Impaired gait Completed Yes Improved Balance Description: LTG: Patient will demonstrate improved standing balance to meet functional goals as evidenced by TUG < 20 seconds, to be achieved by 10-05-22. PT Impaired balance Completed Yes Manage Orthopedic Condition Description: Improve patient and/or caregiver understanding of post surgical and/or non-surgical orthopedic intervention management as evidenced by patient and/or caregiver able to verbalize, demonstrate, and teach back instruction, to be achieved by 10-05-22. PT Orthopedic Condition Completed Yes Demonstrate understanding of education Description: Patient and/or caregiver will understand educational instruction to be achieved by 10-05-22. PT Learning Assessment Completed Yes Manage Secondary Cardiovascular disease Description: Improve patient and/or caregiver understanding of secondary cardiovascular disease management as evidenced by patient and/or caregiver able to verbalize, demonstrate, and teach back instruction, to be achieved by 10-05-22. PT Cardiovascular Disease Completed Yes Patient/caregiver will demonstrate ability to obtain, store, identify and administer ordered medications, keep accurate medication list in home, and adhere to medication schedule Description: Patient/caregiver will demonstrate ability to obtain, store, identify and administer ordered medications, keep accurate medication list in home, and adhere to medication schedule by 10-05-22. Medication Education Completed Yes Patient/caregiver will be able to identify and report symptoms of sepsis Description: Patient/caregiver will be able to identify signs/symptoms of sepsis infection and will verbalize actions to take if suspected by 10-05-22. Sepsis Completed Yes Patient to maintain parameters within physician-specified ranges throughout certification period Physician Specific Parameters Completed Yes Manage Risk for falls Description: Patient/caregiver will verbalize knowledge of individualized fall prevention strategies by 10-05-22. Risk for Falls Completed Yes Manage Pain Description: Patient/caregiver will verbalize knowledge and understanding of appropriate techniques to control pain, including pain medication and non-pharmacological techniques. Patient will verbalize or demonstrate an acceptable level of pain as evidenced by a pain score of 0-1/10 and improvement in ability to perform activities of daily living to be achieved by 10-05-22. Pain Completed Yes Manage diabetic foot care Description: Patient/caregiver will demonstrate basic understanding of and compliance with diabetic self-care management as evidenced by verbalizing purpose of daily foot care and assessment by 10-05-22. Diabetic Foot Care Completed Yes Patient/caregiver will teach back high risk medication side effect and precaution education High Risk Medications Completed Yes Manage discharge planning Description: Patient/caregiver will verbalize understanding of ongoing discharge plan provided related to disease management, arrangements for outpatient and/or community services, obtaining medications, supplies, and DME, as needed throughout certification period. Discharge Completed Yes Patient/caregiver will make healthcare providers aware of and any changes to Advance Directives throughout certification period Advance Directives Completed Yes Interventions Intervention Associated Problem/Goal Status Variance Visit Notes Physical Therapy Therapeutic Exercises Problem:PT Impaired muscle performance and/or ROM Goal:Improved Muscle Performance and/or ROM Completed PT instructed patient in SLR, heel slides (seated) x8-10 reps each. Terminal knee extension stretch with heel propped x 2 minutes. Standing heel raises, hip abduction, hip flexion. Standing knee flexion stretch with RT foot on step. Seated passive knee flexion, leg dangling x 2 minutes. Patient required verbal cues for proper technique. PT instructed patient to perform HEP 2-3x/day increasing reps as tolerating within pain-free range. Physical Therapy Transfer Training Problem:PT Impaired mobility Goal:Improved Transfers Completed Patient independent with household transfers. Deferred need for car transfers. Physical Therapy Stair Training Problem:PT Impaired gait Goal:Improved Stair Climbing Completed Stair training and instruction to patient on safe stair climbing, ascend/descend 7 indoor steps, with standard cane with supervision and verbal cues for safety and technique. PT instructed patient on proper leg/cane sequencing. PT educated patient on stair safety due to no handrail. Patient mod I with stairs with cane. Physical Therapy Gait Training Problem:PT Impaired gait Goal:Improved Gait Completed Gait training and instruction to patient on safe ambulation with single point cane for 200 feet with supervision, with verbal cues for corrections of gait deviations. PT instructed patient on proper cane/leg sequencing. Patient mod I with cane. Instruct on orthopedic precautions and weight bearing restrictions Description: Orthopedic precautions including right total knee: no knee flexed over pillow at rest. Weight bearing restrictions include: WBAT of involved extremity. Problem:PT Orthopedic Condition Goal:Manage Orthopedic Condition Completed patient instructed on orthopedic precautions. Instruct on management of edema Problem:PT Orthopedic Condition Goal:Manage Orthopedic Condition Completed Instruct patient on management of edema including elevation of RT knee above the level of the heart, ice, medication adherence strategies and benefits of activity. Instruct and educate on knowledge deficits Problem:PT Learning Assessment Goal:Demonstrate understanding of education Completed patient verbalize and/or demonstrate understanding of physical therapy education including orthopedic condition management, pain management, fall prevention strategies, home safety and home exercise program. Medication Education Description: Evaluate/instruct patient/caregiver on obtaining, storing, identifying and administering ordered medications as well as keeping accurate medication list in the home and adhereing to medication schedule Problem:Medication Education Goal:Patient/caregive r will demonstrate ability to obtain, store, identify and administer ordered medications, keep accurate medication list in home, and adhere to medication schedule Completed Patient instructed on importance of keeping accurate medication list in home and adhering to medication schedule. SPO2 Description: Notify Dr. Carpenter if pulse ox is <92% at rest. Problem:Physician Specific Parameters Goal:Patient to maintain parameters within physician-specified ranges throughout certification period Completed Instruct on pain and instruct on strategies to control pain Problem:Pain Goal:Manage Pain Completed patient instructed on techniques to control pain including Pharmacological measures and Non-Pharmacological measures; rest, positioning/elevation and use of DME/assistive devices. Instruct on final discharge plan and deliver discharge instructions Problem:Discharge Goal:Manage discharge planning Completed Delivered Discharge plan: Discharge plan discussed with patient for plan for transition to: outpatient [facility] Diagnostic Procedure Only (Routine) - Authorized Specialty Diagnoses / Procedures Referred By Contac t Referred To Contact XR IMAGING Diagnoses Pain Procedures XR KNEE GENERAL 4V AP BOTH/PA BOTH/LAT/MERC BILATERAL RADIOLOGIC EXAM KNEE COMPLETE 4/MORE VIEWS Lea Connor PA-C [address] [place] [address] Xr Imaging Referral ID Status Reason Start Date Expiration Date Visits Requested Visits Authorized [id number] Authorized Auto-Generat ed Referral 02/01/2022 03/03/2023 1 1 [facility] for referral (narrative)* Diagnostic Procedure Only (Routine) - Closed Specialty Diagnoses / Procedures Referred By Contac t Referred To Contact XR IMAGING Diagnoses Pain Procedures XR KNEE GENERAL 4V AP BOTH/PA BOTH/LAT/MERC BILATERAL RADIOLOGIC EXAM KNEE COMPLETE 4/MORE VIEWS Lea Connor PA-C [address] [place] [address] Xr Imaging Referral ID Status Reason Start Date Expiration Date V isits Requested Visits Authorized [id number] Closed Auto-Generate d Referral 02/01/2022 03/03/2023 1 1 [facility] for referral (narrative)* Outpatient Procedure (Routine) - Closed Specialty Diagnoses / Procedures Referred By Guyac t Referred To Contact [facility] Diagnoses Preoperative examination Procedures ECG COMPLETE ECG ROUTINE ECG W/LEAST 12 LDS W/I&R aYnet Boyle PA-C [address] [address] Heart [facility] [place] [address] [place] [address] Referral ID Status Reason Start Date Expiration Date V isits Requested Visits Authorized [id number] Closed Auto-Generate d Referral 08/16/2022 08/10/2023 1 1 [facility] for referral (narrative)* Diagnostic Procedure Only (Routine) - Authorized Specialty Diagnoses / Procedures Referred By Rodrigo ford Referred To Contact XR IMAGING Diagnoses Status post total left knee replacement Procedures XR KNEE POST 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 RADIOLOGIC EXAMINATION KNEE 3 VIEWS Regla Higgins PA-C [address] [place] [address] Xr Imaging [facility] Referral ID Status Reason Start Date Expiration Date Visits Requested Visits Authorized [id number] Authorized Auto-Generat ed Referral 05/14/2023 06/12/2024 1 1 [facility] for referral (narrative)* Diagnostic Procedure Only (Routine) - Open Specialty Diagnoses / Procedures Referred By Rodrigo ford Referred To Contact MOLECULAR & FUNCTIONAL IMAGING Diagnoses Pain due to internal orthopedic prosthetic devices, implants and grafts, initial encounter (HCC) S/P total knee replacement using cement, left Procedures NM BONE 3 PHASE BONE &/JOINT IMAGING 3 PHASE STUDY Regla Higgins PA-C [address] [place] [address] [facility] [address] [place] [address] Referral ID Status Reason Start Date Expiration Date V isits Requested Visits Authorized [id number] Open Auto-Generate d Referral 05/16/2023 06/14/2024 1 1 [facility] for referral (narrative)* Diagnostic Procedure Only (Routine) - Closed Specialty Diagnoses / Procedures Referred By Contac t Referred To Contact MOLECULAR & FUNCTIONAL IMAGING Diagnoses Pain due to internal orthopedic prosthetic devices, implants and grafts, initial encounter (HCC) S/P total knee replacement using cement, left Procedures NM BONE 3 PHASE BONE &/JOINT IMAGING 3 PHASE STUDY Chika Carpenter MD [address] [address] Molecular [facility] Functional Imaging [address] [place] [address] Referral ID Status Reason Start Date Expiration Date V isits Requested Visits Authorized [id number] Closed Auto-Generate d Referral 05/20/2023 08/10/2023 1 1 [facility] for referral (narrative)* Diagnostic Procedure Only (Routine) - Closed Specialty Diagnoses / Procedures Referred By Contac t Referred To Contact XR IMAGING Diagnoses Right knee pain, unspecified chronicity Procedures XR KNEE POST OP 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 RIGHT RADIOLOGIC EXAMINATION KNEE 3 VIEWS Matthieu Esparza PA-C [address] [place] [address] Xr Imaging [place] [address] Referral ID Status Reason Start Date Expiration Date V isits Requested Visits Authorized [id number] Closed Auto-Generate d Referral 07/14/2023 08/09/2024 1 1 * Diagnostic Procedure Only (Routine) - Closed Specialty Diagnoses / Procedures Referred By Contac t Referred To Contact XR IMAGING Diagnoses Pain in left hip Procedures XR HIP 2V AP/LAT LEFT (AK,FL,ME,UN) RADEX HIP UNILATERAL WITH PELVIS 2-3 VIEWS Regla Higgins PA-C [address] [place] [address] [place] [address] Referral ID Status Reason Start Date Expiration Date V isits Requested Visits Authorized [id number] Closed Auto-Generate d Referral 06/20/2023 07/19/2024 1 1 [facility] for referral (narrative)* Diagnostic Procedure Only (Routine) - Closed Specialty Diagnoses / Procedures Referred By Contac t Referred To Contact XR IMAGING Diagnoses Status post total left knee replacement Procedures XR KNEE POST 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 RADIOLOGIC EXAMINATION KNEE 3 VIEWS Regla Higgins PA-C [address] [place] [address] [place] [address] Referral ID Status Reason Start Date Expiration Date V isits Requested Visits Authorized [id number] Closed Auto-Generate d Referral 05/14/2023 06/12/2024 1 1 [facility] for referral (narrative)* Diagnostic Procedure Only (Routine) - Closed Specialty Diagnoses / Procedures Referred By Contac t Referred To Contact XR IMAGING Diagnoses Right knee pain, unspecified chronicity Procedures XR KNEE POST OP 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 RIGHT RADIOLOGIC EXAMINATION KNEE 3 VIEWS Matthieu Esparza PA-C [address] [place] [address] [place] [address] Referral ID Status Reason Start Date Expiration Date V isits Requested Visits Authorized [id number] Closed Auto-Generate d Referral 09/12/2022 10/12/2023 1 1 [facility] for referral (narrative)* Diagnostic Procedure Only (Routine) - Closed Specialty Diagnoses / Procedures Referred By Contac t Referred To Contact XR IMAGING Diagnoses Right shoulder pain, unspecified chronicity Procedures XR SHOULDER [id number] AP/TRUE AP RIGHT RADEX SHOULDER COMPLETE MINIMUM 2 VIEWS Matthieu Esparza PA-C [address] [place] [address] Xr Imaging [place] [address] Referral ID Status Reason Start Date Expiration Date V isits Requested Visits Authorized [id number] Closed Auto-Generate d Referral 07/11/2022 08/10/2023 1 1 [facility] for visit Narrative* Diagnostic Procedure Only (Routine) - Closed Specialty Diagnoses / Procedures Referred By Contac t Referred To Contact XR IMAGING Diagnoses Pain Procedures XR KNEE GENERAL 4V AP BOTH/PA BOTH/LAT/MERC BILATERAL RADIOLOGIC EXAM KNEE COMPLETE 4/MORE VIEWS Lea Connor PA-C [address] [place] [id number] Xr Imaging Referral ID Status Reason Start Date Expiration Date V isits Requested Visits Authorized [id number] Closed Auto-Generate d Referral 02/01/2022 03/03/2023 1 1 [facility] for visit Narrative* Diagnostic Procedure Only (Routine) - Closed Specialty Diagnoses / Procedures Referred By Contac t Referred To Contact MOLECULAR & FUNCTIONAL IMAGING Diagnoses Pain due to internal orthopedic prosthetic devices, implants and grafts, initial encounter (HCC) S/P total knee replacement using cement, left Procedures NM BONE 3 PHASE BONE &/JOINT IMAGING 3 PHASE STUDY Chika Carpenter MD [address] [address] Molecular & Functional Imaging [address] [place] [address] Referral ID Status Reason Start Date Expiration Date V isits Requested Visits Authorized [id number] Closed Auto-Generate d Referral 05/20/2023 08/10/2023 1 1 [facility] for visit Narrative* Diagnostic Procedure Only (Routine) - Closed Specialty Diagnoses / Procedures Referred By Contac t Referred To Contact XR IMAGING Diagnoses Pain in left hip Procedures XR HIP 2V AP/LAT LEFT (AK,FL,ME,UN) RADEX HIP UNILATERAL WITH PELVIS 2-3 VIEWS Regla Higgins PA-C [address] [place] [address] [place] [address] Referral ID Status Reason Start Date Expiration Date V isits Requested Visits Authorized [id number] Closed Auto-Generate d Referral 06/20/2023 07/19/2024 1 1 [facility] for visit Narrative* Diagnostic Procedure Only (Routine) - Closed Specialty Diagnoses / Procedures Referred By Contac t Referred To Contact XR IMAGING Diagnoses Status post total left knee replacement Procedures XR KNEE POST 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 RADIOLOGIC EXAMINATION KNEE 3 VIEWS Regla Higgins PA-C [address] [place] [address] [place] [address] Referral ID Status Reason Start Date Expiration Date V isits Requested Visits Authorized [id number] Closed Auto-Generate d Referral 05/14/2023 06/12/2024 1 1 [facility] for visit Narrative* Diagnostic Procedure Only (Routine) - Closed Specialty Diagnoses / Procedures Referred By Contac t Referred To Contact XR IMAGING Diagnoses Right knee pain, unspecified chronicity Procedures XR KNEE POST OP 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 RIGHT RADIOLOGIC EXAMINATION KNEE 3 VIEWS Matthieu Esparza PA-C [address] [place] [address] [place] [address] Referral ID Status Reason Start Date Expiration Date V isits Requested Visits Authorized [id number] Closed Auto-Generate d Referral 09/12/2022 10/12/2023 1 1 [facility] for visit Narrative* Diagnostic Procedure Only (Routine) - Closed Specialty Diagnoses / Procedures Referred By Contac t Referred To Contact XR IMAGING Diagnoses Right shoulder pain, unspecified chronicity Procedures XR SHOULDER [id number] AP/TRUE AP RIGHT RADEX SHOULDER COMPLETE MINIMUM 2 VIEWS Matthieu Esparza PA-C [address] [place] [address] [place] [address] Referral ID Status Reason Start Date Expiration Date V isits Requested Visits Authorized [id number] Closed Auto-Generate d Referral 07/11/2022 08/10/2023 1 1 [facility] Discharge Instructions * Attachments The following attachments cannot be sent through Care Everywhere. 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 ACP-Advance Directive ACP-Power of Rug Shampooer Documents on File Type Date Recorded 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 Advance Directive(s) 07/18/2021 8:22 PM Advance Directive(s) 10/26/2020 12:47 PM Advance Directive(s) 08/07/2018 7:39 AM Documents on File Type Date Recorded 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 Advance Directive(s) 07/18/2021 8:22 PM Advance Directive(s) 10/26/2020 12:47 PM Advance Directive(s) 08/07/2018 7:39 AM Latest Code Status on File Code Status Date Activated Date Inactivated Comments Full Code 09/12/2022 11:07 AM Latest Code Status on File Code Status Date Activated Date Inactivated Comments Full Code 09/12/2022 11:07 AM Latest Code Status on File Code Status Date Activated Date Inactivated Comments Full Code 09/12/2022 11:07 AM Latest Code Status on File Code Status Date Activated Date Inactivated Comments Full Code 09/12/2022 11:07 AM Date Activated Date Inactivated Comments 09/12/2022 11:07 AM 09/24/2023 7:11 AM Reason for Referral Status Reason Specialty Diagnoses / Procedures Referre d By Contact Referred To Contact Closed Radiology Diagnoses Acute pain of right lower extremity Procedures US Lower Extremity Venous Right Awilda Vivas PA-C [address] [facility] [address] [place] [address] Specialty Diagnoses / Procedures Referred By Rodrigo ford Referred To Contact CT IMAGING Diagnoses Primary osteoarthritis of right knee Preop testing Procedures CT KNEE WO IVCON RT CT LOWER EXTREMITY W/O CONTRAST MATERIAL Matthieu Esparza PA-C [address] [place] [address] Ct Imaging Referral ID Status Reason Start Date Expiration Date V isits Requested Visits Authorized [id number] Closed Auto-Generate d Referral 08/26/2022 08/10/2023 1 1 Specialty Diagnoses / Procedures Referred By Contac t Referred To Contact [facility] Diagnoses S/P total knee arthroplasty, right Procedures CONSULT TO PHYSICAL THERAPY PHYSICAL THERAPY EVALUATION HIGH COMPLEX 45 MINS Matthieu Esparza PA-C [address] [place] [address] [facility] [address] [address] Referral ID Status Reason Start Date Expiration Date Visits Requested Visits Authorized [id number] Pending Review Auto-Generat ed Referral 09/25/2022 09/25/2023 1 1 Specialty Diagnoses / Procedures Referred By Contac t Referred To Contact [facility] Diagnoses Pain in right hip Chronic pain of right knee Procedures PT REHAB FOLLOW UP ORDER THERAPEUTIC EXERCISES RE, EA [address] [place] [address] [facility] [address] [address] Referral ID Status Reason Start Date Expiration Date Visits Requested Visits Authorized [id number] Pending Review PCP Requested Referral Auto-Generate d Referral 10/02/2022 12/31/2022 1 1 Specialty Diagnoses / Procedures Referred By Contac t Referred To Contact Timothy Correa MD [address] [place] [address] [place] [address] Referral ID Status Reason Start Date Expiration Date V isits Requested Visits Authorized [id number] Pending Review 3 3 Specialty Diagnoses / Procedures Referred By Contac t Referred To Contact [facility] Diagnoses Chronic pain of right knee Procedures PT REHAB FOLLOW UP ORDER THERAPEUTIC EXERCISES RE, EA [address] [place] [address] [facility] [address] [address] Referral ID Status Reason Start Date Expiration Date Visits Requested Visits Authorized [id number] Pending Review PCP Requested Referral Auto-Generate d Referral 10/16/2022 01/14/2023 1 1 Referral ID Status Reason Start Date Expiration Date Visits Requested Visits Authorized [id number] Pending Review PCP Requested Referral Auto-Generate d Referral 10/30/2022 01/28/2023 1 1 Specialty Diagnoses / Procedures Referred By Contac t Referred To Contact CT IMAGING Diagnoses Primary osteoarthritis of right knee Procedures CT KNEE WO IVCON RT CT LOWER EXTREMITY W/O CONTRAST MATERIAL Matthieu Esparza PA-C [address] [place] [address] Ct Imaging Referral ID Status Reason Start Date Expiration Date V isits Requested Visits Authorized [id number] Closed Auto-Generate d Referral 09/10/2022 08/10/2023 1 1 Specialty Diagnoses / Procedures Referred By Contac t Referred To Contact Radiology Diagnoses Left leg swelling Procedures US LEG LEFT VENOUS + DOPPLER Timothy Correa MD [address] [facility] [place] [address] S ULTR[facility]OUND [address] [place] [address] Referral ID Status Reason Start Date Expiration Date V isits Requested Visits Authorized [id number] Closed [facility] 12/16/2023 03/17/2024 1 1 Summary Purpose Family History No Family History Records FoundNo Family History Records FoundNo Family History Records FoundNo Family History Records FoundNo Family History Records FoundNo Family History Records FoundNo Family History Records FoundNo Family History Records Found Medications Administered Section Inactive Administered Medications - up to 3 most recent administrations Medication Order MAR Action Action Date Dose Rate Site betamethasone acetate-betamethasone sodium phosphate 12 mg injection (CELESTONE) 12 mg, Injection - FOR ORTHO USE ONLY, ONE TIME INJECTION, 1 dose, Starting on Fri02/22/22 at 1332, Until Fri02/22/22 at 1332 Given 02/22/2022 1:32 PM EDT 12 mg lidocaine (PF) 20 mg/mL (2 %) 2 mL injection (XYLOCAINE) 2 mL, Injection - FOR ORTHO USE ONLY, ONE TIME INJECTION, 1 dose, Starting on Fri02/22/22 at 1332, Until Fri02/22/22 at 1332 Given 02/22/2022 1:32 PM EDT 2 mL Inactive Administered Medications - up to 3 most recent administrations Medication Order MAR Action Action Date Dose Rate Site sodium hyaluronate 20 mg injection (EUFLEXXA) 20 mg, Injection - FOR ORTHO USE ONLY, ONE TIME INJECTION, 1 dose, Starting on Fri06/14/22 at 1002, Until Fri06/14/22 at 1002 Given 06/14/2022 10:02 AM EDT 20 mg Knee, Right Inactive Administered Medications - up to 3 most recent administrations Medication Order MAR Action Action Date Dose Rate Site sodium hyaluronate 20 mg injection (EUFLEXXA) 20 mg, Injection - FOR ORTHO USE ONLY, ONE TIME INJECTION, 1 dose, Starting on Fri06/21/22 at 1035, Until Fri06/21/22 at 1035 Given 06/21/2022 10:35 AM EST 20 mg Knee, Right Inactive Administered Medications - up to 3 most recent administrations Medication Order MAR Action Action Date Dose Rate Site sodium hyaluronate 20 mg injection (EUFLEXXA) 20 mg, Injection - FOR ORTHO USE ONLY, ONE TIME INJECTION, 1 dose, Starting on Fri06/28/22 at 1008, Until Fri06/28/22 at 1008 Given 06/28/2022 10:08 AM EST 20 mg Knee, Right Inactive Administered Medications - up to 3 most recent administrations Medication Order MAR Action Action Date Dose Rate Site betamethasone acetate-betamethasone sodium phosphate 12 mg injection (CELESTONE) 12 mg, Injection - FOR ORTHO USE ONLY, ONE TIME INJECTION, 1 dose, Starting on Fri08/02/22 at 1317, Until Fri08/02/22 at 1317 Given 08/02/2022 1:17 PM EST 12 mg Shoulder, Right bupivacaine (PF) 0.25 % (2.5 mg/mL) 3 mL injection (SENSORCAINE MPF) 3 mL, Injection - FOR ORTHO USE ONLY, ONE TIME INJECTION, 1 dose, Starting on Fri08/02/22 at 1317, Until Fri08/02/22 at 1317 Given 08/02/2022 1:17 PM EST 3 mL Shoulder, Right Additional Source Comments Reason for Visit (unrecogniz ed section and content) Reason Comments PT Progress Note Specialty Diagnoses / Procedures Referred By Contac t Referred To Contact PHYSICAL THERAPY Diagnoses Pain in right hip Other chronic pain Pain in right hip [M25.551] Chronic pain of right knee [M25.561, G89.29] Procedures post op est rs pt Chika Carpenter MD [address] [place] [address] [place] [address] [place] [address] Referral ID Status Reason Start Date Expiration Date V isits Requested Visits Authorized [id number] Authorized 08/11/2022 08/10/2023 99 99 Reason Comments Physical Therapy Specialty Diagnoses / Procedures Referred By Contac Referred To Contact PHYSICAL THERAPY Diagnoses Pain in right hip Other chronic pain Pain in right hip [M25.551] Chronic pain of right knee [M25.561, G89.29] Procedures post op est rs pt Chika Carpenter MD [address] [place] [address] [place] [address] [place] [address] Reason Comments Follow Up Euflexxa #3 Specialty Diagnoses / Procedures [facility] / ORTHOPAEDIC SURGERY Diagnoses right knee euflexxa #1 Procedures HUSAM INJECT 3 Self Chika Carpenter MD [address] [place] [address] Referral ID Status Reason Start Date Expiration Date V isits Requested Visits Authorized [id number] Closed Financial Clearance Required - Self Pay Patient Cleared - True Self-Pay required payment collected 06/14/2022 09/12/2022 3 3 Reason Comments Injections Follow Up Referral ID Status Reason Start Date Expiration Date Visits Requested Visits Authorized [id number] Authorized Financial Clearance Required - Self Pay Patient Cleared - True Self-Pay required payment collected 06/14/2022 09/12/2022 3 3 Reason Comments Arm Pain Reason Comments Care Coordination Health Maintenance Outreach Medical Record Review Reason Comments Established Patient Pain Follow Up Knee Replacement Reason Comments Follow Up Euflexxa #1 Reason Comments Patient Question pain Reason Comments Refill Reason Comments Follow Up Reason Comments Established Patient Pain Reason Comments Anesthesia Consult Reason Comments Pre-Op Teaching Specialty Diagnoses / Procedures Referred By Contac t Referred To Contact CT IMAGING Diagnoses Primary osteoarthritis of right knee Preop testing Procedures CT KNEE WO IVCON RT CT LOWER EXTREMITY W/O CONTRAST MATERIAL Matthieu Esparza PA-C [address] [place] [address] Ct Imaging Referral ID Status Reason Start Date Expiration Date V isits Requested Visits Authorized [id number] Closed Auto-Generate d Referral 08/26/2022 08/10/2023 1 1 Reason Comments Forms Specialty Diagnoses / Procedures Referred By Contac t Referred To Contact Diagnoses Primary osteoarthritis of right knee Procedures ARTHRP KNE CONDYLE&PLATU MEDIAL&LAT COMPARTMENTS ROBOTIC ASSISTED TOTAL KNEE ARTHROPLASTY [facility] [address] [place] [address] Referral ID Status Reason Start Date Expiration Date Visits Re quested Visits Authorized [id number] 1 1 Reason Comments Home Care Confirmation call Reason Comments Patient Update Reason Comments Home Care Unmade PT visit Specialty Diagnoses / Procedures Referred By Contac t Referred To Contact [facility] [address] [place] [id number] Referral ID Status Reason Start Date Expiration Date Visits Re quested Visits Authorized [id number] 1 1 Reason Comments Established Patient Follow Up Post Op Knee Replacement Reason Comments PT Eval Specialty Diagnoses / Procedures Referred By Contac t Referred To Contact Physical Therapy / PHYSICAL THERAPY Diagnoses RT TKR [facility] DISC 09/30 Procedures NEW RS PT [facility] Chika Carpenter MD [address] [address] Tre Go, PT, DPT [address] [facility] [place] [address] Referral ID Status Reason Start Date Expiration Date Visits Re quested Visits Authorized [id number] Closed 10/02/2022 12/31/2022 1 1 Reason Comments Complete exam Reason Onset Date Comments Discuss results of exam, other provider 10/03/19 Specialty Diagnoses / Procedures Referred By Contac t Referred To Contact [facility] Diagnoses S/P total knee arthroplasty, right Procedures CONSULT TO PHYSICAL THERAPY PHYSICAL THERAPY EVALUATION HIGH COMPLEX 45 MINS Matthieu Esparza PA-C [address] [place] [address] [facility] [place] [address] Referral ID Status Reason Start Date Expiration Date Visits Requested Visits Authorized [id number] Authorized Auto-Generat ed Referral 08/11/2022 08/10/2023 20 20 Reason Comments Physical Therapy Reason Comments Appointment Reason Comments Post Op Knee Replacement Reason Comments Letter Reason Comments Patient Question Reason Comments Orders Reason Comments Appointment Reason Comments left arm pain left leg pain Reason Comments Established Patient Knee Replacement Knee Pain Reason Comments Follow Up Bone scan results Reason Comments Leg/thigh symptoms lft leg swelling, pa in Reason Onset Date Comments Discuss results test/procedures 12/19/2023 Reference 99 12/19/2023 Reason Onset Date Comments Question about medication 10/24/2023 Reason Onset Date Comments Outside Medical Records Received 09/07/2024 Reason Comments Abdominal mass Lump on side got big abraham and uncomfortable (unrecognized sect ion and content) No Status Records FoundNo Status Records FoundNo Status Records FoundNo Status Records FoundNo Status Records FoundNo Status Records FoundNo Status Records FoundNo Status Records Found INFORMATION SOURCE (unrecogn ized section and content) DATE CREATED AUTHOR 03/28/2020 [facility] DATE CREATED AUTHOR AUTHOR'S ORGANIZ ATION 04/26/2020 [facility] DATE CREATED AUTHOR AUTHOR'S ORGANIZ ATION 05/02/2020 [facility] DATE CREATED AUTHOR AUTHOR'S ORGANIZ ATION 07/20/2023 [facility] DATE CREATED AUTHOR AUTHOR'S ORGANIZ ATION 08/15/2023 [facility] DATE CREATED AUTHOR AUTHOR'S ORGANIZ ATION 09/25/2023 [facility] DATE CREATED AUTHOR AUTHOR'S ORGANIZ ATION 09/11/2024 [facility] DATE CREATED AUTHOR AUTHOR'S ORGANIZ ATION 01/19/2025 [facility] Care Teams (unrecognized sec tion and content) Day Guard Relationship Specialty Start Date End Date Timothy Correa MD [address] [place] [address] [place] [address] PCP - General Family Medicine 11/06/20 Day Guard Relationship Specialty Start Date End Date Timothy Correa MD [address] [place] [address] [place] [address] PCP - General Family Medicine 11/06/20 Day Guard Relationship Specialty Start Date End Date Phill Timothy Coronado PCP - General Family Practice 03/01/13 Day Guard Relationship Specialty Start Date End Date Phill Timothy Coronado PCP - General Family Practice 03/01/13 Day Guard Relationship Specialty Start Date End Date Phill Timothy Coronado PCP - General Family Practice 03/01/13 Day Guard Relationship Specialty Start Date End Date Phill Timothy Coronado PCP - General Family Practice 03/01/13 Day Guard Relationship Specialty Start Date End Date Timothy Correa MD [address] [place] [address] [place] [address] PCP - General Family Medicine 11/06/20 Day Guard Relationship Specialty Start Date End Date Phill Timothy Coronado PCP - General Family Medicine 03/01/13 Day Guard Relationship Specialty Start Date End Date PhillTimothy PCP - General Family Medicine 03/01/13 Day Guard Relationship Specialty Start Date End Date Phill Timothy Coronado PCP - General Family Medicine 03/01/13 Day Guard Relationship Specialty Start Date End Date Timothy Correa MD [address] [place] [address] [place] [address] PCP - General Family Medicine 11/06/20 Day Guard Relationship Specialty Start Date End Date Timothy Correa PCP - General Family Medicine 03/01/13 Day Guard Relationship Specialty Start Date End Date Timothy Correa PCP - General Family Medicine 03/01/13 Sisdivina, Rony, [facility] [address] [place] [address] Specialty Credit Control Assistant Orthopedics 07/29/22 10/13/22 Day Guard Relationship Specialty Start Date End Date Timothy Correa PCP - General Family Medicine 03/01/13 SisGiovanni murciain, [facility] [address] [place] [address] Specialty Credit Control Assistant Orthopedics 07/29/22 10/13/22 Day Guard Relationship Specialty Start Date End Date Timothy Correa PCP - General Family Medicine 03/01/13 SisGiovanni murciain, [facility] [address] [place] [address] Specialty Credit Control Assistant Orthopedics 07/29/22 10/13/22 Day Guard Relationship Specialty Start Date End Date Timothy Correa MD [address] [place] [address] DR [place], [place] [address] PCP - General Family Medicine 11/06/20 Day Guard Relationship Specialty Start Date End Date Timothy Correa PCP - General Family Medicine 03/01/13 SisGiovanni murciain, [facility] [address] [place] [address] Specialty Credit Control Assistant Orthopedics 07/29/22 10/13/22 Day Guard Relationship Specialty Start Date End Date Timothy Correa PCP - General Family Medicine 03/01/13 SisGiovanni murciain, [facility] [address] [place] [address] Specialty Credit Control Assistant Orthopedics 07/29/22 10/13/22 Day Guard Relationship Specialty Start Date End Date Timothy Correa PCP - General Family Medicine 03/01/13 SisRony murcia, [facility] [address] [place] [address] Specialty Credit Control Assistant Orthopedics 07/29/22 10/13/22 Day Guard Relationship Specialty Start Date End Date Timothy Correa PCP - General Family Medicine 03/01/13 Rony Doyle, [facility] [address] [place] [address] Specialty Credit Control Assistant Orthopedics 07/29/22 10/13/22 Day Guard Relationship Specialty Start Date End Date Timothy Correa PCP - General Family Medicine 03/01/13 Rony Doyle, [facility] [address] [place] [address] Specialty Credit Control Assistant Orthopedics 07/29/22 10/13/22 Matthieu Esparza PA-C [address] [place] [address] Referring Orthopedics 09/11/22 Chika Carpenter MD [address] [address] Home Care Provider Orthopedics 09/11/22 Ned Arnold, PT [address] [place] [address] Critical Care Unit Nurse Post Acute Care 09/11/22 Day Guard Relationship Specialty Start Date End Date Timothy Correa PCP - General Family Medicine 03/01/13 Rony Doyle, [facility] [address] [place] [address] Specialty Credit Control Assistant Orthopedics 07/29/22 10/13/22 Matthieu Esparza PA-C [address] [place] [address] Referring Orthopedics 09/11/22 Chika Carpenter MD [address] [place] [address] Home Care Provider Orthopedics 09/11/22 Ned Arnold, PT 75[address] [facility] [place] [address] Critical Care Unit Nurse Post Acute Care 09/11/22 Day Guard Relationship Specialty Start Date End Date Timothy Correa PCP - General Family Medicine 03/01/13 Rony Doyle, [facility] [address] [place] [address] Specialty Credit Control Assistant Orthopedics 07/29/22 10/13/22 Matthieu Esparza PA-C [address] [place] [address] Referring Orthopedics 09/11/22 Chika Carpenter MD [address] [place] [address] Home Care Provider Orthopedics 09/11/22 Ned Arnold, PT [address] [facility] [place] [address] Critical Care Unit Nurse Post Acute Care 09/11/22 Day Guard Relationship Specialty Start Date End Date Timothy Correa PCP - General Family Medicine 03/01/13 Rony Doyle, [facility] [address] [place] [address] Specialty Credit Control Assistant Orthopedics 07/29/22 10/13/22 Matthieu Esparza PA-C [address] [place] [address] Referring Orthopedics 09/11/22 Chika Carpenter MD [address] [address] Home Care Provider Orthopedics 09/11/22 Ned Arnold, PT 25[address] [facility] [place] [address] Critical Care Unit Nurse Post Acute Care 09/11/22 Day Guard Relationship Specialty Start Date End Date Timothy Correa M PCP - General Family Medicine 03/01/13 Rony Doyle, [facility] [address] [place] [address] Specialty Credit Control Assistant Orthopedics 07/29/22 10/13/22 Matthieu Esparza PA-C [address] [place] [address] Referring Orthopedics 09/11/22 Chika Carpenter MD [address] [address] Home Care Provider Orthopedics 09/11/22 Ned Arnold, PT [address] [facility] [place] [address] Critical Care Unit Nurse Post Acute Care 09/11/22 Day Guard Relationship Specialty Start Date End Date Timothy Correa M PCP - General Family Medicine 03/01/13 Rony Doyle, [facility] [address] [place] [address] Specialty Credit Control Assistant Orthopedics 07/29/22 10/13/22 Matthieu Esparza PA-C [address] [place] [address] Referring Orthopedics 09/11/22 Chika Carpenter MD [address] [address] Home Care Provider Orthopedics 09/11/22 Ned Arnold, PT [address] [facility] [place] [address] Critical Care Unit Nurse Post Acute Care 09/11/22 Day Guard Relationship Specialty Start Date End Date Timothy Correa M PCP - General Family Medicine 03/01/13 Rony Doyle, [facility] [address] [place] [address] Specialty Credit Control Assistant Orthopedics 07/29/22 10/13/22 Matthieu Esparza PA-C [address] [place] [address] Referring Orthopedics 09/11/22 Chika Carpenter MD [address] [address] Home Care Provider Orthopedics 09/11/22 Ned Arnold, PT [address] [place] [address] Critical Care Unit Nurse Post Acute Care 09/11/22 Day Guard Relationship Specialty Start Date End Date Timothy Correa PCP - General Family Medicine 03/01/13 Rony Doyle, [facility] [address] [place] [address] Specialty Credit Control Assistant Orthopedics 07/29/22 10/13/22 Matthieu Esparza PA-C [address] [place] [address] Referring Orthopedics 09/11/22 Chika Carpenter MD [address] [address] Home Care Provider Orthopedics 09/11/22 Ned Arnold, PT [address] [place] [address] Critical Care Unit Nurse Post Acute Care 09/11/22 Day Guard Relationship Specialty Start Date End Date Phill Gutierrez PCP - General Family Medicine 03/01/13 Rony Doyle, [facility] [address] [place] [address] Specialty Credit Control Assistant Orthopedics 07/29/22 10/13/22 Matthieu Esparza PA-C [address] [place] [address] Referring Orthopedics 09/11/22 Chika Carpenter MD [address] [address] Home Care Provider Orthopedics 09/11/22 Ned Arnold, PT 68[address] [place] [address] Critical Care Unit Nurse Post Acute Care 09/11/22 Day Guard Relationship Specialty Start Date End Date Timothy Correa MD [address] [facility] [address] PCP - General Family Medicine 11/06/20 Day Guard Relationship Specialty Start Date End Date Timothy Correa PCP - General Family Medicine 03/01/13 Rony Doyle [facility] [address] [place] [address] Specialty Credit Control Assistant Orthopedics 07/29/22 10/13/22 Matthieu Esparza PA-C [address] [place] [address] Referring Orthopedics 09/11/22 Chika Carpenter MD [address] [address] Home Care Provider Orthopedics 09/11/22 Ned Arnold, PT [address] [place] [address] Critical Care Unit Nurse Post Acute Care 09/11/22 Day Guard Relationship Specialty Start Date End Date Timothy Correa MD [address] [facility] [address] PCP - General Family Medicine 11/06/20 Day Guard Relationship Specialty Start Date End Date Timothy Correa MD [address] [facility] [address] PCP - General Family Medicine 11/06/20 Day Guard Relationship Specialty Start Date End Date Timothy Correa PCP - General Family Medicine 03/01/13 Matthieu Esparza PA-C [address] [place] [address] Referring Orthopedics 09/11/22 Chika Carpenter MD [address] [place] [address] Home Care Provider Orthopedics 09/11/22 Ned Arnold, PT [address] [place] [address] Critical Care Unit Nurse Post Acute Care 09/11/22 Day Guard Relationship Specialty Start Date End Date Timothy Correa PCP - General Family Medicine 03/01/13 Matthieu Esparza PA-C [address] [place] [address] Referring Orthopedics 09/11/22 Chika Carpenter MD [address] [place] [address] Home Care Provider Orthopedics 09/11/22 Ned Arnold, PT 4[address] [place] [address] Critical Care Unit Nurse Post Acute Care 09/11/22 Day Guard Relationship Specialty Start Date End Date Timothy Correa PCP - General Family Medicine 03/01/13 Matthieu Esparza PA-C [address] [place] [address] Referring Orthopedics 09/11/22 Chika Carpenter MD [address] [place] [address] Home Care Provider Orthopedics 09/11/22 Ned Arnold, PT [address] [place] [address] Critical Care Unit Nurse Post Acute Care 09/11/22 Day Guard Relationship Specialty Start Date End Date Timothy Correa PCP - General Family Medicine 03/01/13 Matthieu Esparza PA-C [address] [place] [address] Referring Orthopedics 09/11/22 Chika Carpenter MD [address] [place] [address] Home Care Provider Orthopedics 09/11/22 Ned Arnold, PT 50[address] [place] [address] Critical Care Unit Nurse Post Acute Care 09/11/22 Day Guard Relationship Specialty Start Date End Date Timothy Correa PCP - General Family Medicine 03/01/13 Matthieu Esparza PA-C [address] [place] [address] Referring Orthopedics 09/11/22 Chika Carpenter MD [address] [place] [address] Home Care Provider Orthopedics 09/11/22 Ned Arnold, PT [address] [place] [address] Critical Care Unit Nurse Post Acute Care 09/11/22 Day Guard Relationship Specialty Start Date End Date Timothy Correa PCP - General Family Medicine 03/01/13 Matthieu Esparza PA-C [address] [place] [address] Referring Orthopedics 09/11/22 Chika Carpenter MD [address] [place] [address] Home Care Provider Orthopedics 09/11/22 Ned Arnold, PT [address] [place] [address] Critical Care Unit Nurse Post Acute Care 09/11/22 Day Guard Relationship Specialty Start Date End Date Timothy Correa PCP - General Family Medicine 03/01/13 Matthieu Esparza PA-C [address] [place] [address] Referring Orthopedics 09/11/22 Chika Carpenter MD [address] [place] [address] Home Care Provider Orthopedics 09/11/22 Ned Arnold, PT [address] [place] [address] Critical Care Unit Nurse Post Acute Care 09/11/22 Day Guard Relationship Specialty Start Date End Date Timothy Correa PCP - General Family Medicine 03/01/13 Matthieu Esparza PA-C [address] [place] [address] Referring Orthopedics 09/11/22 Chika Carpenter MD [address] [place] [address] Home Care Provider Orthopedics 09/11/22 Ned Arnold, PT [address] [place] [address] Critical Care Unit Nurse Post Acute Care 09/11/22 Day Guard Relationship Specialty Start Date End Date Timothy Correa PCP - General Family Medicine 03/01/13 Matthieu Esparza PA-C [address] [place] [address] Referring Orthopedics 09/11/22 Chika Carpenter MD [address] [address] Home Care Provider Orthopedics 09/11/22 Ned Arnold, PT [address] [place] [address] Critical Care Unit Nurse Post Acute Care 09/11/22 Day Guard Relationship Specialty Start Date End Date Timothy Correa PCP - General Family Medicine 03/01/13 Matthieu Esparza PA-C [address] [place] [address] Referring Orthopedics 09/11/22 Chika Carpenter MD [address] [place] [address] Home Care Provider Orthopedics 09/11/22 Ned Arnold, PT [address] [place] [address] Critical Care Unit Nurse Post Acute Care 09/11/22 Day Guard Relationship Specialty Start Date End Date Timothy Correa PCP - General Family Medicine 03/01/13 Matthieu Esparza PA-C [address] [place] [address] Referring Orthopedics 09/11/22 Chika Carpenter MD [address] [address] Home Care Provider Orthopedics 09/11/22 Ned Arnold, PT [address] [facility] [place] [address] Critical Care Unit Nurse Post Acute Care 09/11/22 Day Guard Relationship Specialty Start Date End Date Timothy Correa PCP - General Family Medicine 03/01/13 Matthieu Esparza PA-C [address] [place] [address] Referring Orthopedics 09/11/22 Chika Carpenter MD [address] [address] Home Care Provider Orthopedics 09/11/22 Ned Arnold, PT 50[address] [facility], [place] [phone] Critical Care Unit Nurse Post Acute Care 09/11/22 Day Guard Relationship Specialty Start Date End Date Timothy Correa PCP - General Family Medicine 03/01/13 Rony Doyle, [facility] [address] [place] [address] Specialty Credit Control Assistant Orthopedics 07/29/22 10/13/22 Matthieu Esparza PA-C [address] [place] [address] Referring Orthopedics 09/11/22 Chika Carpenter MD [address] [place] [address] Home Care Provider Orthopedics 09/11/22 Ned Arnold, PT 6[address] [facility] [place] [address] Critical Care Unit Nurse Post Acute Care 09/11/22 Day Guard Relationship Specialty Start Date End Date Timothy Correa PCP - General Family Medicine 03/01/13 Rony Doyle [facility] [address] [place] [address] Specialty Credit Control Assistant Orthopedics 07/29/22 10/13/22 Matthieu Esparza PA-C [address] [place] [address] Referring Orthopedics 09/11/22 Chika Carpenter MD [address] [place] [address] Home Care Provider Orthopedics 09/11/22 Ned Arnold, PT [address] [facility], [place] [address] Critical Care Unit Nurse Post Acute Care 09/11/22 Day Guard Relationship Specialty Start Date End Date Timothy Correa MD [address] [facility] [address] PCP - General Family Medicine 11/06/20 Day Guard Relationship Specialty Start Date End Date Timothy Correa MD [address] [facility] [place] [address] PCP - General Family Medicine 11/06/20 Day Guard Relationship Specialty Start Date End Date Timothy Correa PCP - General Family Medicine 03/01/13 Matthieu Esparza PA-C [address] [place] [address] Referring Orthopedics 09/11/22 Chika Carpenter MD [address] [place] [address] Home Care Provider Orthopedics 09/11/22 Ned Arnold, PT [address] [place] [address] Critical Care Unit Nurse Post Acute Care 09/11/22 Day Guard Relationship Specialty Start Date End Date Timothy Correa M PCP - General Family Medicine 03/01/13 Matthieu Esparza PA-C [address] [place] [address] Referring Orthopedics 09/11/22 Chika Carpenter MD [address] [place] [address] Home Care Provider Orthopedics 09/11/22 Ned Arnold, PT [address] [place] [address] Critical Care Unit Nurse Post Acute Care 09/11/22 Day Guard Relationship Specialty Start Date End Date Timothy Correa M PCP - General Family Medicine 03/01/13 Matthieu Esparza PA-C [address] [place] [address] Referring Orthopedics 09/11/22 Chika Carpenter MD [address] [place] [address] Home Care Provider Orthopedics 09/11/22 Ned Arnold, PT [address] [place] [address] Critical Care Unit Nurse Post Acute Care 09/11/22 Day Guard Relationship Specialty Start Date End Date Timothy Correa M PCP - General Family Medicine 03/01/13 Matthieu Esparza PA-C [address] [place] [address] Referring Orthopedics 09/11/22 Chika Carpenter MD [address] [place] [address] Home Care Provider Orthopedics 09/11/22 Ned Arnold, PT [address] [place] [address] Critical Care Unit Nurse Post Acute Care 09/11/22 Day Guard Relationship Specialty Start Date End Date Timothy Correa PCP - General Family Medicine 03/01/13 Matthieu Esparza PA-C [address] [place] [address] Referring Orthopedics 09/11/22 Chika Carpenter MD [address] [place] [address] Home Care Provider Orthopedics 09/11/22 Ned Arnold, PT [address] [place] [address] Critical Care Unit Nurse Post Acute Care 09/11/22 Day Guard Relationship Specialty Start Date End Date Phill Timothy Coronado PCP - General Family Medicine 03/01/13 Matthieu Esparza PA-C [address] [place] [address] Referring Orthopedics 09/11/22 Chika Carpenter MD [address] [place] [address] Home Care Provider Orthopedics 09/11/22 Ned Arnold, PT 30[address] [facility] [place] [address] Critical Care Unit Nurse Post Acute Care 09/11/22 Day Guard Relationship Specialty Start Date End Date Timothy Correa MD [address] [place] [address] [place] [address] PCP - General Family Medicine 11/06/20 Day Guard Relationship Specialty Start Date End Date Timothy Correa PCP - General Family Medicine 03/01/13 Matthieu Esparza PA-C [address] [place] [address] Referring Orthopedics 09/11/22 Chika Carpenter MD [address] [place] [address] Home Care Provider Orthopedics 09/11/22 Ned Arnold, PT 47[address] [facility] [place] [address] Critical Care Unit Nurse Post Acute Care 09/11/22 Day Guard Relationship Specialty Start Date End Date Phill Timothy Coronado PCP - General Family Medicine 03/01/13 Matthieu Esparza PA-C [address] [place] [address] Referring Orthopedics 09/11/22 Chika Carpenter MD [address] [place] [address] Home Care Provider Orthopedics 09/11/22 Ned Arnold, PT [address] [facility] [place] [address] Critical Care Unit Nurse Post Acute Care 09/11/22 Day Guard Relationship Specialty Start Date End Date Timothy Correa PCP - General Family Medicine 03/01/13 Matthieu Esparza PA-C [address] [place] [address] Referring Orthopedics 09/11/22 Chika Carpenter MD [address] [place] [phone] Home Care Provider Orthopedics 09/11/22 Ned Arnold, PT [address] [place] [address] Critical Care Unit Nurse Post Acute Care 09/11/22 Day Guard Relationship Specialty Start Date End Date Timothy Correa MD [address] [place] [address] [place] [address] PCP - General Family Medicine 11/06/20 Day Guard Relationship Specialty Start Date End Date Timothy Correa MD [address] [facility] [address] PCP - General Family Medicine 11/06/20 Day Guard Relationship Specialty Start Date End Date Timothy Correa MD [address] [facility] [place] [address] PCP - General Family Medicine 11/06/20 Day Guard Relationship Specialty Start Date End Date Timothy Correa MD [address] [facility] [address] PCP - General Family Medicine 11/06/20 Day Guard Relationship Specialty Start Date End Date Timothy Correa PCP - General Family Medicine 03/01/13 Matthieu Esparza PA-C [address] [place] [address] Referring Orthopedics 09/11/22 Chika Carpenter MD [address] [place] [address] Home Care Provider Orthopedics 09/11/22 Ned Arnold, PT [address] [place] [address] Critical Care Unit Nurse Post Acute Care 09/11/22 Day Guard Relationship Specialty Start Date End Date Phill Timothy Coronado PCP - General Family Medicine 03/01/13 Matthieu Esparza PA-C [address] [place] [address] Referring Orthopedics 09/11/22 Chika Carpenter MD [address] [place] [address] Home Care Provider Orthopedics 09/11/22 Ned Arnold, PT [address] [place] [address] Critical Care Unit Nurse Post Acute Care 09/11/22 Day Guard Relationship Specialty Start Date End Date PhillTimothy PCP - General Family Medicine 03/01/13 Rony Doyle, [facility] [address] [place] [address] Specialty Credit Control Assistant Orthopedics 07/29/22 10/13/22 Matthieu Esparza PA-C [address] [place] [address] Referring Orthopedics 09/11/22 Chika Carpenter MD [address] [place] [address] Home Care Provider Orthopedics 09/11/22 Ned Arnold, PT [address] [place] [address] Critical Care Unit Nurse Post Acute Care 09/11/22 Day Guard Relationship Specialty Start Date End Date Timothy Correa PCP - General Family Medicine 03/01/13 Rony Doyle [facility] [address] [place] [address] Specialty Credit Control Assistant Orthopedics 07/29/22 10/13/22 Day Guard Relationship Specialty Start Date End Date Timothy Correa MD [address] [address] PCP - General Family Medicine 11/06/20 Day Guard Relationship Specialty Start Date End Date Timothy Correa MD [address] [place] [address] PCP - General Family Medicine 11/06/20 Day Guard Relationship Specialty Start Date End Date Timothy Correa MD [address] [place] [address] PCP - General Family Medicine 11/06/20 Day Guard Relationship Specialty Start Date End Date Timothy Correa MD [address] [place] [address] PCP - General Family Medicine 11/06/20 Day Guard Relationship Specialty Start Date End Date Timothy Correa MD [address] [place] [address] PCP - General Family Medicine 11/06/20 Day Guard Relationship Specialty Start Date End Date Timothy Correa MD [address] [place] [address] PCP - General Family Medicine 11/06/20 Source Comments (unrecognize d section and content) In the event this informatio n is protected by the Federal Confidentiality of Alcohol and Drug Abuse Patient Records regulations: The Federal rules restrict any use of the information to criminally investigate or prosecute any alcohol or drug abuse patient.[facility] the event this information is protected by the Federal Confidentiality of Alcohol and Drug Abuse Patient Records regulations: The Federal rules restrict any use of the information to criminally investigate or prosecute any alcohol or drug abuse patient.[facility]In the event this information is protected by the Federal Confidentiality of Alcohol and Drug Abuse Patient Records regulations: The Federal rules restrict any use of the information to criminally investigate or prosecute any alcohol or drug abuse patient.[facility]In the event this information is protected by the Federal Confidentiality of Alcohol and Drug Abuse Patient Records regulations: The Federal rules restrict any use of the information to criminally investigate or prosecute any alcohol or drug abuse patient.[facility]In the event this information is protected by the Federal Confidentiality of Alcohol and Drug Abuse Patient Records regulations: The Federal rules restrict any use of the information to criminally investigate or prosecute any alcohol or drug abuse patient.[facility]In the event this information is protected by the Federal Confidentiality of Alcohol and Drug Abuse Patient Records regulations: The Federal rules restrict any use of the information to criminally investigate or prosecute any alcohol or drug abuse patient.[facility] HospitalIn the event this information is protected by the Federal Confidentiality of Alcohol and Drug Abuse Patient Records regulations: The Federal rules restrict any use of the information to criminally investigate or prosecute any alcohol or drug abuse patient.[facility]In the event this information is protected by the Federal Confidentiality of Alcohol and Drug Abuse Patient Records regulations: The Federal rules restrict any use of the information to criminally investigate or prosecute any alcohol or drug abuse patient.[facility] HospitalIn the event this information is protected by the Federal Confidentiality of Alcohol and Drug Abuse Patient Records regulations: The Federal rules restrict any use of the information to criminally investigate or prosecute any alcohol or drug abuse patient.[facility] HospitalIn the event this information is protected by the Federal Confidentiality of Alcohol and Drug Abuse Patient Records regulations: The Federal rules restrict any use of the information to criminally investigate or prosecute any alcohol or drug abuse patient.[facility] HospitalIn the event this information is protected by the Federal Confidentiality of Alcohol and Drug Abuse Patient Records regulations: The Federal rules restrict any use of the information to criminally investigate or prosecute any alcohol or drug abuse patient.[facility] HospitalIn the event this information is protected by the Federal Confidentiality of Alcohol and Drug Abuse Patient Records regulations: The Federal rules restrict any use of the information to criminally investigate or prosecute any alcohol or drug abuse patient.[facility] HospitalIn the event this information is protected by the Federal Confidentiality of Alcohol and Drug Abuse Patient Records regulations: The Federal rules restrict any use of the information to criminally investigate or prosecute any alcohol or drug abuse patient.[facility] HospitalIn the event this information is protected by the Federal Confidentiality of Alcohol and Drug Abuse Patient Records regulations: The Federal rules restrict any use of the information to criminally investigate or prosecute any alcohol or drug abuse patient.[facility] HospitalIn the event this information is protected by the Federal Confidentiality of Alcohol and Drug Abuse Patient Records regulations: The Federal rules restrict any use of the information to criminally investigate or prosecute any alcohol or drug abuse patient.[facility] HospitalIn the event this information is protected by the Federal Confidentiality of Alcohol and Drug Abuse Patient Records regulations: The Federal rules restrict any use of the information to criminally investigate or prosecute any alcohol or drug abuse patient.[facility] HospitalIn the event this information is protected by the Federal Confidentiality of Alcohol and Drug Abuse Patient Records regulations: The Federal rules restrict any use of the information to criminally investigate or prosecute any alcohol or drug abuse patient.[facility] HospitalIn the event this information is protected by the Federal Confidentiality of Alcohol and Drug Abuse Patient Records regulations: The Federal rules restrict any use of the information to criminally investigate or prosecute any alcohol or drug abuse patient.[facility] HospitalIn the event this information is protected by the Federal Confidentiality of Alcohol and Drug Abuse Patient Records regulations: The Federal rules restrict any use of the information to criminally investigate or prosecute any alcohol or drug abuse patient.[facility] HospitalIn the event this information is protected by the Federal Confidentiality of Alcohol and Drug Abuse Patient Records regulations: The Federal rules restrict any use of the information to criminally investigate or prosecute any alcohol or drug abuse patient.[facility] HospitalIn the event this information is protected by the Federal Confidentiality of Alcohol and Drug Abuse Patient Records regulations: The Federal rules restrict any use of the information to criminally investigate or prosecute any alcohol or drug abuse patient.[facility] HospitalIn the event this information is protected by the Federal Confidentiality of Alcohol and Drug Abuse Patient Records regulations: The Federal rules restrict any use of the information to criminally investigate or prosecute any alcohol or drug abuse patient.[facility] HospitalIn the event this information is protected by the Federal Confidentiality of Alcohol and Drug Abuse Patient Records regulations: The Federal rules restrict any use of the information to criminally investigate or prosecute any alcohol or drug abuse patient.[facility] HospitalIn the event this information is protected by the Federal Confidentiality of Alcohol and Drug Abuse Patient Records regulations: The Federal rules restrict any use of the information to criminally investigate or prosecute any alcohol or drug abuse patient.[facility] HospitalIn the event this information is protected by the Federal Confidentiality of Alcohol and Drug Abuse Patient Records regulations: The Federal rules restrict any use of the information to criminally investigate or prosecute any alcohol or drug abuse patient.[facility] HospitalIn the event this information is protected by the Federal Confidentiality of Alcohol and Drug Abuse Patient Records regulations: The Federal rules restrict any use of the information to criminally investigate or prosecute any alcohol or drug abuse patient.[facility] HospitalIn the event this information is protected by the Federal Confidentiality of Alcohol and Drug Abuse Patient Records regulations: The Federal rules restrict any use of the information to criminally investigate or prosecute any alcohol or drug abuse patient.[facility] HospitalIn the event this information is protected by the Federal Confidentiality of Alcohol and Drug Abuse Patient Records regulations: The Federal rules restrict any use of the information to criminally investigate or prosecute any alcohol or drug abuse patient.[facility] HospitalIn the event this information is protected by the Federal Confidentiality of Alcohol and Drug Abuse Patient Records regulations: The Federal rules restrict any use of the information to criminally investigate or prosecute any alcohol or drug abuse patient.[facility] HospitalIn the event this information is protected by the Federal Confidentiality of Alcohol and Drug Abuse Patient Records regulations: The Federal rules restrict any use of the information to criminally investigate or prosecute any alcohol or drug abuse patient.[facility] HospitalIn the event this information is protected by the Federal Confidentiality of Alcohol and Drug Abuse Patient Records regulations: The Federal rules restrict any use of the information to criminally investigate or prosecute any alcohol or drug abuse patient.[facility] HospitalIn the event this information is protected by the Federal Confidentiality of Alcohol and Drug Abuse Patient Records regulations: The Federal rules restrict any use of the information to criminally investigate or prosecute any alcohol or drug abuse patient.[facility] HospitalIn the event this information is protected by the Federal Confidentiality of Alcohol and Drug Abuse Patient Records regulations: The Federal rules restrict any use of the information to criminally investigate or prosecute any alcohol or drug abuse patient.[facility] HospitalIn the event this information is protected by the Federal Confidentiality of Alcohol and Drug Abuse Patient Records regulations: The Federal rules restrict any use of the information to criminally investigate or prosecute any alcohol or drug abuse patient.[facility] HospitalIn the event this information is protected by the Federal Confidentiality of Alcohol and Drug Abuse Patient Records regulations: The Federal rules restrict any use of the information to criminally investigate or prosecute any alcohol or drug abuse patient.[facility] HospitalIn the event this information is protected by the Federal Confidentiality of Alcohol and Drug Abuse Patient Records regulations: The Federal rules restrict any use of the information to criminally investigate or prosecute any alcohol or drug abuse patient.[facility] HospitalIn the event this information is protected by the Federal Confidentiality of Alcohol and Drug Abuse Patient Records regulations: The Federal rules restrict any use of the information to criminally investigate or prosecute any alcohol or drug abuse patient.[facility] HospitalIn the event this information is protected by the Federal Confidentiality of Alcohol and Drug Abuse Patient Records regulations: The Federal rules restrict any use of the information to criminally investigate or prosecute any alcohol or drug abuse patient.[facility] HospitalIn the event this information is protected by the Federal Confidentiality of Alcohol and Drug Abuse Patient Records regulations: The Federal rules restrict any use of the information to criminally investigate or prosecute any alcohol or drug abuse patient.[facility] HospitalIn the event this information is protected by the Federal Confidentiality of Alcohol and Drug Abuse Patient Records regulations: The Federal rules restrict any use of the information to criminally investigate or prosecute any alcohol or drug abuse patient.[facility] HospitalIn the event this information is protected by the Federal Confidentiality of Alcohol and Drug Abuse Patient Records regulations: The Federal rules restrict any use of the information to criminally investigate or prosecute any alcohol or drug abuse patient.[facility] HospitalIn the event this information is protected by the Federal Confidentiality of Alcohol and Drug Abuse Patient Records regulations: The Federal rules restrict any use of the information to criminally investigate or prosecute any alcohol or drug abuse patient.[facility] HospitalIn the event this information is protected by the Federal Confidentiality of Alcohol and Drug Abuse Patient Records regulations: The Federal rules restrict any use of the information to criminally investigate or prosecute any alcohol or drug abuse patient.[facility] HospitalIn the event this information is protected by the Federal Confidentiality of Alcohol and Drug Abuse Patient Records regulations: The Federal rules restrict any use of the information to criminally investigate or prosecute any alcohol or drug abuse patient.[facility] HospitalIn the event this information is protected by the Federal Confidentiality of Alcohol and Drug Abuse Patient Records regulations: The Federal rules restrict any use of the information to criminally investigate or prosecute any alcohol or drug abuse patient.[facility] HospitalIn the event this information is protected by the Federal Confidentiality of Alcohol and Drug Abuse Patient Records regulations: The Federal rules restrict any use of the information to criminally investigate or prosecute any alcohol or drug abuse patient.[facility] HospitalIn the event this information is protected by the Federal Confidentiality of Alcohol and Drug Abuse Patient Records regulations: The Federal rules restrict any use of the information to criminally investigate or prosecute any alcohol or drug abuse patient.[facility] HospitalIn the event this information is protected by the Federal Confidentiality of Alcohol and Drug Abuse Patient Records regulations: The Federal rules restrict any use of the information to criminally investigate or prosecute any alcohol or drug abuse patient.[facility] HospitalIn the event this information is protected by the Federal Confidentiality of Alcohol and Drug Abuse Patient Records regulations: The Federal rules restrict any use of the information to criminally investigate or prosecute any alcohol or drug abuse patient.[facility] HospitalIn the event this information is protected by the Federal Confidentiality of Alcohol and Drug Abuse Patient Records regulations: The Federal rules restrict any use of the information to criminally investigate or prosecute any alcohol or drug abuse patient.[facility] HospitalIn the event this information is protected by the Federal Confidentiality of Alcohol and Drug Abuse Patient Records regulations: The Federal rules restrict any use of the information to criminally investigate or prosecute any alcohol or drug abuse patient.[facility] HospitalIn the event this information is protected by the Federal Confidentiality of Alcohol and Drug Abuse Patient Records regulations: The Federal rules restrict any use of the information to criminally investigate or prosecute any alcohol or drug abuse patient.[facility] HospitalIn the event this information is protected by the Federal Confidentiality of Alcohol and Drug Abuse Patient Records regulations: The Federal rules restrict any use of the information to criminally investigate or prosecute any alcohol or drug abuse patient.[facility] HospitalIn the event this information is protected by the Federal Confidentiality of Alcohol and Drug Abuse Patient Records regulations: The Federal rules restrict any use of the information to criminally investigate or prosecute any alcohol or drug abuse patient.[facility] HospitalIn the event this information is protected by the Federal Confidentiality of Alcohol and Drug Abuse Patient Records regulations: The Federal rules restrict any use of the information to criminally investigate or prosecute any alcohol or drug abuse patient.[facility] HospitalIn the event this information is protected by the Federal Confidentiality of Alcohol and Drug Abuse Patient Records regulations: The Federal rules restrict any use of the information to criminally investigate or prosecute any alcohol or drug abuse patient.[facility] HospitalIn the event this information is protected by the Federal Confidentiality of Alcohol and Drug Abuse Patient Records regulations: The Federal rules restrict any use of the information to criminally investigate or prosecute any alcohol or drug abuse patient.[facility] HospitalIn the event this information is protected by the Federal Confidentiality of Alcohol and Drug Abuse Patient Records regulations: The Federal rules restrict any use of the information to criminally investigate or prosecute any alcohol or drug abuse patient.[facility] HospitalIn the event this information is protected by the Federal Confidentiality of Alcohol and Drug Abuse Patient Records regulations: The Federal rules restrict any use of the information to criminally investigate or prosecute any alcohol or drug abuse patient.[facility] FOR RECORDS PERTAINING TO PATIENTS WHO ARE OR HAVE BEEN ENROLLED IN A CHEMICAL DEPENDENCY/SUBSTANCEABUSE PROGRAM, SOME INFORMATION MAY BE OMITTED. This clinical summary was aggregated from multiple sources. Caution should be exercised in using it in the provision of clinical care. This summary normalizes information from multiple sources, and as a consequence, information in this document may materially change the coding, format and clinical context of patient data. In addition, data may be omitted in some cases. CLINICAL DECISIONS SHOULD BE BASED ON THE PRIMARY CLINICAL RECORDS. [facility] [employer] [facility]. provides no warranty or guarantee of the accuracy or completeness of information in this document.
[2025-02-05 10:32] LABS: ALB/GLOB Ratio 1.6 RATIO (0.9-2.4); AST(SGOT) 24 U/L (<=37); Alanine Aminotransfer ALT/SGPT 19 U/L (<=46); Albumin, Serum 4.3 g/dL (3.4-4.8); Alkaline Phosphatase 82 U/L (40-129); Anion Gap 12 (5-15); BUN 7 mg/dL (4-19); BUN/Creat Ratio 8.6 RATIO (10-20); Calcium,Total 8.8 mg/dL (7.6-11.0); Carbon Dioxide 22.8 mmol/L (21.0-32.0); Chloride 101 mmol/L (98-108); Creatinine, Serum 0.76 mg/dL (0.70-1.20); EST Glomerular Filtration Rate 100 (>60); Estimated Creatinine Clearance 113.02 ml/min (50-250); Globulin 2.7 g/dL (2.2-4.2); Glucose 143 mg/dL (70-99); Lipase 21 U/L (13-75); Potassium 4.2 mmol/L (3.3-5.1); Sodium Level 136 mmol/L (133-145); Total Bilirubin 0.41 mg/dL (0.00-1.30)
[2025-02-05 11:32] LABS: Bacteria 0 SEEN /hpf (None Seen); Mucous, Urine 0 SEEN /hpf (<or=2+); Red Blood Cells-Urine 0 SEEN /hpf (0-5); Squamous Epithelial Cells - UA 0 SEEN /hpf (0-5)
[2025-02-05 12:10] LABS: Color, Urine Straw (Yellow); Glucose, Dipstick Normal (Normal); Ketone-Dipstick Negative (Negative); Leukocyte Esterase-Dipstick Negative /ul (Negative); Nitrite-Dipstick Negative (Negative); Occult Blood-Urine Negative /ul (Negative); Protein-Dipstick 15 mg/dl (Negative); Specific Gravity, Urine 1.005 (1.002-1.030); Urine Bilirubin Dipstick Negative (Negative); Urine Clarity Clear (Clear); Urine Urobilinogen Normal (Normal)
[2025-02-05 12:55] LABS: White Blood Cells 0-5 SEEN /hpf (0-5)
--- NOTE | 2025-02-05 13:10 | US_ITS ---
PROCEDURE: GALLBLADDER 02/05/2025 REASON FOR EXAM: RUQ PAIN COMPARISON: Same day CT FINDINGS: GALLBLADDER: Multiple gallstones. Mild gallbladder wall thickening. positive Cochran sign. Gallbladder sludge is noted. COMMON BILE DUCT: Measures 8 mm. No intrahepatic biliary dilatation. LIVER: Borderline enlarged. Increased in echotexture. No definite hepatic mass. RIGHT KIDNEY: Normal in size and echogenicity. No mass. No urinary stones. No hydronephrosis. US/Gallbladder IMPRESSION: Acute cholecystitis with cholelithiasis. Hepatic steatosis. Reading Location: [id number]
[2025-02-05] MEDS: Piperacil/Tazobactam 3.375 GM in 0.9% Normal Saline (50mL MB+) 50 ML IV ×2 (15:28→21:08)
--- OUTSIDE RECORDS SUMMARY | 2025-02-05 15:35 | XMS RPT_ITS | CCD ---
Author Organization [facility] Inform ion [facility] Care Team Providers Care [employer] Name Role Phone Timothy Correa Primary Care Provider Unavailable Primary Care Provider UnavailTimothy Elaine MD Primary Care Provider Timothy Correa Primary Care Provider Timothy Correa MD Primary Care Provider Timothy Correa Primary Care Provider Timothy Correa Primary Care Provider [phone] Sissen PSS, Rony Unavailable Unavailable Matthieu Esparza PA-C Unavailable Chika Carpenter MD Unavailable Knupp PT, Ned Unavailable Timothy Correa MD Primary Care Provider Knupp PT, Ned Unavailable PROVIDER, UNKNOWN Primary [...] Attending Unavailable SURSO, GUTIERREZ Primary Care Unavailable REGLA HIGGINS Attending Unavailable SURSO, GUTIERREZ Primary Care [...] Admitting Unavailable PROVIDER, UNKNOWN Attending Unavailable SURSO, TIOMTHY Primary Care Unavailable PROVIDER, UNKNOWN Admitting Unavailable SURSO, TIMOTHY Attending Unavailable SURSO, TIMOTHY Primary Care Unavailable Allergies Allergy Classification Reported Allergen(s) Allergy Type Date of Onset Reaction(s) Facility (20 sources) Acetaminophen / HYDROcodone; Translations: [HYDROCODONE-ACETA MINOPHEN] Drug Allergy 5 [place], [place] (20 sources) Codeine; Translations: [CODEINE] Drug Allergy 0 Rash [place], [place] (20 sources) Morphine; Translations: [MORPHINE] Drug Allergy 1 [facility] (1 source) Codeine Drug Allergy 5 [facility] (1 source) Morphine Drug Allergy 4 [facility] Medications Current Medications Medication Drug Class(es) Dates Sig (Normalized) Sig (Original) acetaminophen 500 mg oral tablet (20 sources) Start: 09-11-2022 take 2 tablets by mouth every eight hours as needed Acetaminophen Extra Strength 500 MG tablet Take 1,000 mg by mouth every 8 hours as needed. 09/11/2022 Active Comment on above: Take 2 tablets by [facility] every 8 hours as needed for pain. [...] days. 60 Tablet 0 10/27/2023 11/11/2023 Active [id number] 200 actuat albuterol 0.09 mg/actuat metered dose [...] Comment on above: Take 1 capsule by [facility] once daily. disability placard (11 sources) Start: [...] Comment on above: Take 1 tablet by [facility] once daily. metFORMIN hydrochloride 500 mg [...] including day of surgery. polyethylene glycol 3350 84109 mg powder for oral solution (8 sources) [...] on above: Take 1 capsule by [facility] twice daily as needed for constipation. esomeprazole [...] (19 sources) Patient encounter status; Translations: [Other oil heaterman (current) drug therapy] Onset: 05-25-2016 09-19-2020 Episodic Other aftercare (5 sources) Long-term (current) use of other medications Onset: 05-25-2016 09-19-2020 Episodic Other aftercare (6 sources) Long-term current use of drug therapy; Translations: [Other oil heaterman (current) drug therapy] Onset: 05-25-2016 09-19-2020 Episodic [...] Interpretation Reference Range Facility Addendum Noteon 01-17-2025 Cofounder Authentication Interface Message Text Addended by: TIMOTHY CORREA on: 01/17/2025 09:15 PM Modules accepted: Orders Normal [facility] Assessment AND Plan Noteon 0 10-18-2024 Cofounder Authentication Interface Message Text Normal [facility] Cofounder Authentication Interface Message Text Orders: tirzepatide (MOUNJARO) 2.5 MG/0.5ML pen; Inject 2.5 mg under the skin once weekly. Normal [facility] Patient Instructionson 10-18 Cofounder Authentication Interface Message Text Today the following vaccines were administered: Pneumococcal Conjugate (PCV 20). Vaccines may have different side effects and care recommendations. Please refer to the Vaccine Information Sheet(s) (VIS) provided in your preferred language to learn more about the vaccines that were administered today. If you have any problems or questions, please call the [facility] line at [phone]. Normal [facility] Progress Noteson 10-18-2024 Cofounder Authentication Interface Message Text ANNUAL WELLNESS VISIT Subjective Mr. Osborn is a 64 year old who is being seen for his Annual Wellness Visit. I have reviewed and updated the following information (Care Team, Medical History, Surgical History, Social History, Family History and current medications including spjg-ycs-mejdzos medications and supplements): Patient Care Team: Timothy [...] Session: Patient declined Stress: Patient Declined (08/12/2024) [facility] [place] [facility] - Occupational Stress Questionnaire Feeling of Stress : Patient declined Social Connections: Unknown (08/12/2024) Social Connection and Isolation Panel [NHANES] Frequency of Communication with Friends and Family: Patient declined Frequency of Social Gatherings with Friends and Family: Patient declined Attends [employer] Services: Patient declined Active Member of Clubs [...] / Excessive Appetite?: Not at all Self Rains?: Not at all Trouble Concentrating?: Not at [...] 10/18/2024 (more content not included)... Normal The [facility] Interface Message Text Patient was identified by name and date of . Jeanie Perkins MA During this visit the vaccine(s) was: Administered Provider received consent from patient/parent/patient parts representative for immunization(s) as ordered, questionnaire completed and VIS educational handouts reviewed with patient/parent/patient parts representative who denies contraindications Double identification of patient completed with patient/parent/patient parts representative using name and prior to administration, and patient tolerated immunization(s) administration without incident. Normal [facility] Progress Noteson 10-16-2024 Cofounder Authentication Interface Message Text Your blood counts, liver function, kidney function, thyroid function and cholesterol were normal. The hemoglobin A1c shows good control of blood sugar. The vitamin B12 levels and vitamin-D levels were good. Normal [facility] BASIC METABOLIC PANELon 03-0 Anion gap [Moles/Vol] 13 mmol/L Normal 10-20 [facility] Comment on above: Performed By: #### C H8, HEPATIC, HDL, PSA #### [facility] [address] [place] [address], Calcium [Mass/Vol] 9.0 mg/dL Normal 8.6-10.3 [facility] Comment on above: Performed By: #### C H8, HEPATIC, HDL, PSA #### [facility] [address] [place] [address], Chloride [Moles/Vol] 103 mmol/L Normal 98-107 [facility] Comment on above: Performed By: #### C H8, HEPATIC, HDL, PSA #### [facility] [address] [place] [address], CO2 [Moles/Vol] 28 mmol/L Normal 21-31 [facility] Comment on above: Performed By: #### C H8, HEPATIC, HDL, PSA #### [facility] [address] [place] [address], Creatinine [Mass/Vol] 0.68 mg/dL Low 0.70-1.30 [facility] Comment on above: Performed By: #### C H8, HEPATIC, HDL, PSA #### [facility] [address] [place] [address], ESTIMATED GFR (CKD-EPI) 103 mL/min/1.73sqm Normal >=60 [facility] Comment on above: Result Comment: 2020 [...] Inclusion of Race in Diagnosing Kidney Disease. [place] Journal of Kidney Diseases 2021;79(2):268-88.e1. 2. N Engl J Med 1 Vol. 385 Issue 19 Pages [phone] Performed By: #### Daniel H8, HEPATIC, HDL, PSA #### [facility] [address] [place], [place], Glucose [Mass/Vol] 140 mg/dL High 74-109 [facility] Comment on above: Performed By: #### Daniel H8, HEPATIC, HDL, PSA #### [facility] [address] [place], [place], Potassium [Moles/Vol] 4.1 mmol/L Normal 3.5-5.0 [facility] Comment on above: Performed By: #### Daniel H8, HEPATIC, HDL, PSA #### [facility] [address] [place], [place], Sodium [Moles/Vol] 140 mmol/L Normal 136-145 [facility] Comment on above: Performed By: #### Daniel H8, HEPATIC, HDL, PSA #### [facility] [address] [place], [place], Urea nitrogen [Mass/Vol] 11 mg/dL Normal 7-25 [facility] Comment on above: Performed By: #### Daniel H8, HEPATIC, HDL, PSA #### [facility] [address] [place], [place], CBC WITH DIFFERENTIALon 03-0 -2024 Basophils (Bld) [#/Vol] 0.07 10*3/uL Normal 0.00-0.20 [facility] Comment on above: Performed By: #### C BCDSAT ####[facility] [id number] [place], [place], Basophils/100 WBC (Bld) 1.0 % Normal <=1.9 [facility] Comment on above: Performed By: #### C BCDSAT ####[facility] [id number] [place], [place], Eosinophils (Bld) [#/Vol] 0.22 10*3/uL Normal 0.00-0.70 [facility] Comment on above: Performed By: #### C BCDSAT ####[facility] PATHOLOGY [id number] [place], [place], Eosinophils/100 WBC (Bld) 3.3 % Normal 0.1-4.0 [facility] Comment on above: Performed By: #### C BCDSAT ####[facility]OLOGY [id number] [place], [place], Erythrocyte distribution width (RBC) [Ratio] 17.1 % High 11.5-14.5 [facility] Comment on above: Performed By: #### C BCDSAT ####[facility] PATH[facility]Y [id number] [place], [place], Hematocrit (Bld) [Volume fraction] 40.2 % Low 41.0-53.0 [facility] Comment on above: Performed By: #### C BCDSAT ####[facility] PATHOLOGY [id number] [place] [address], Hemoglobin (Bld) [Mass/Vol] 13.2 g/dL Low 13.9-16.3 The [facility] Comment on above: Performed By: #### C BCDSAT ####[facility] PATHOLOGY [id number] [place] [address], Lymphocytes (Bld) [#/Vol] 2.48 10*3/uL Normal 1.00-4.80 The [facility] Comment on above: Performed By: #### C BCDSAT ####[facility] PATHOLOGY [id number] [place] [address], Lymphocytes/100 WBC (Bld) 36.5 % Normal 24.0-44.0 The [facility] Comment on above: Performed By: #### C BCDSAT ####[facility] PATHOLOGY [id number] [place], [place], MCH (RBC) [Entitic mass] 25.6 pg Low 26.0-34.0 The [facility] Comment on above: Performed By: #### C BCDSAT ####[facility] PATHOLOGY [id number] [place] [address], MCHC (RBC) [Mass/Vol] 32.9 g/dL Normal 32.0-35.9 [facility] Comment on above: Performed By: #### Daniel BORJAAT ####[facility] PATHOLOGY [id number] [place], [place], MCV (RBC) [Entitic vol] 78 fL Low 80-100 [facility] Comment on above: Performed By: #### Daniel BORJAAT ####[facility] PATHOLOGY [id number] [place] [address], Monocytes (Bld) [#/Vol] 0.81 10*3/uL Normal 0.20-1.00 [facility] Comment on above: Performed By: #### Daniel BORJAAT ####[facility] PATHOLOGY [id number] [place] [address], Monocytes/100 WBC (Bld) 12.0 % High 2.0-11.0 The [facility] Comment on above: Performed By: #### Daniel BORJAAT ####[facility] PATHOLOGY [id number] [place] [address], Neutrophils (Bld) [#/Vol] 3.20 10*3/uL Normal 1.50-8.00 The [facility] Comment on above: Performed By: #### Daniel BORJAAT ####[facility] PATHOLOGY [id number] [place] [address], Neutrophils/100 WBC (Bld) 47.2 % Normal 31.0-76.0 The [facility] Comment on above: Performed By: #### Daniel BORJAAT ####[facility] PATHOLOGY [id number] [place] [address], Platelet mean volume (Bld) [Entitic vol] 8.4 fL Normal 7.5-11.2 The [facility] Comment on above: Performed By: #### Daniel BORJAAT ####[facility] PATHOLOGY [id number] [place], [place], Platelets (Bld) [#/Vol] 302 10*3/uL Normal 150-400 [facility] Comment on above: Performed By: #### Daniel BORJAAT ####[facility] PATHOLOGY [id number] [place], [place], RBC (Bld) [#/Vol] 5.16 10*6/uL Normal 4.50-5.90 The [facility] Comment on above: Performed By: #### C BCDSAT ####[facility] PATHOLOGY [id number] [place], WBC (Bld) [#/Vol] 6.8 10*3/uL Normal 4.5-11.5 The [facility] Comment on above: Performed By: #### C BCDSAT ####[facility] PATHOLOGY [id number] [place], [place], FULL LIPID PROFILEon 025 Cholesterol [Mass/Vol] 140 mg/dL Normal <200 The [facility] Comment on above: Result Comment: Lizette rable: < 200 mg/dL Borderline High: 200-239 mg/dL High: > = 240 mg/dL Performed By: #### C H8, HEPATIC, HDL, PSA ####[facility] PATHOLOGY [id number] [place] [address], Cholesterol in LDL [Mass/Vol] 88 mg/dL Normal <100 The [facility] Comment on above: Performed By: #### C H8, HEPATIC, HDL, PSA ####[facility] PATHOLOGY [id number] [place] [address], Cholesterol.total/Cho lesterol in HDL [Mass ratio] 3.89 {ratio} Normal <5.00 The [facility] Comment on above: Performed By: #### C H8, HEPATIC, HDL, PSA ####[facility] PATHOLOGY [id number] [place], [place], HDL CHOL 36 mg/dL Low >40 The [facility] Comment on above: Performed By: #### C H8, HEPATIC, HDL, PSA ####[facility] PATHOLOGY [id number] [place] [address], LDL/HDL 2.44 Normal <3.57 The [facility] Comment on above: Performed By: #### C H8, HEPATIC, HDL, PSA ####[facility] PATHOLOGY [id number] [place] [address], NON-HDL CHOLESTEROL 104 mg/dL Normal <130 The [facility] Comment on above: Performed By: #### C H8, HEPATIC, HDL, PSA ####[facility] [id number] [place], [place], Triglyceride [Mass/Vol] 121 mg/dL Normal <150 The [facility] Comment on above: Result Comment: Norm al: < 150 mg/dL Borderline High: 150-199 mg/dL High: 200-499 mg/dL Very High: > = 500 mg/dL Performed By: #### C H8, HEPATIC, HDL, PSA ####[facility] ULLSULMMVA1640 [place], [place], HEMOGLOBIN A1Con 10-14-2024 Glucose [Mass/Vol] 154 mg/dL Normal The [facility] Comment on above: Performed By: #### H B A1C ####[facility] [address] [place], [place], HbA1c (Bld) [Mass fraction] 7.0 % High 4.0-5.6 The [facility] Comment on above: Performed By: #### H B A1C ####[facility] [address] [place], [address] HEPATIC FUNCTION PANELon Albumin [Mass/Vol] 4.4 g/dL Normal 3.5-5.7 The [facility] Comment on above: Performed By: #### C H8, HEPATIC, HDL, PSA #### [facility] [address] [place] [address], ALK 67 IU/L Normal 34-104 The [facility] Comment on above: Performed By: #### C H8, HEPATIC, HDL, PSA #### [facility] [address] [place] [address], ALT [Catalytic activity/Vol] 23 U/L Normal 7-52 The [facility] Comment on above: Performed By: #### C H8, HEPATIC, HDL, PSA #### [facility] [address] [place] [address], AST [Catalytic activity/Vol] 20 U/L Normal 13-39 [facility] Comment on above: Performed By: #### C H8, HEPATIC, HDL, PSA #### S [facility] [address] [place] [address], Bilirubin [Mass/Vol] 0.9 mg/dL Normal 0.3-1.0 [facility] Comment on above: Performed By: #### C H8, HEPATIC, HDL, PSA #### S [facility] [address] [place] [address], Bilirubin.direct [Mass/Vol] 0.17 mg/dL Normal 0.03-0.18 The [facility] Comment on above: Performed By: #### C H8, HEPATIC, HDL, PSA #### S [facility] [address] [place] [address], Protein [Mass/Vol] 6.8 g/dL Normal 6.0-8.3 [facility] Comment on above: Performed By: #### C H8, HEPATIC, HDL, PSA #### [facility] [address] [place] [address], MICROALBUMIN, URINEon 2024 Albumin DL <= 20 mg/L (U) [Mass/Vol] mg/dL Normal [facility] Comment on above: Order Comment: Note updated reference ranges. Performed By: #### U R MA #### S [facility] [address] [place] [address], CREATININE, URINE 58 mg/dL Normal The [facility] Comment on above: Order Comment: Note updated reference ranges. Performed By: #### U R MA #### S [facility] [address] [place] [address], MICRO-ALBUMIN/CREAT RATIO < 12 Normal <=30 The [facility] Comment on above: Order Comment: Note updated reference ranges. Performed By: #### U R MA #### S [facility] [address] [place] [address], Progress Noteson 10-14-2024 Cofounder Authentication Interface Message Text Identity was confirmed by verifying patient name and date of . Blood drawn for patient. Blood obtained from right arm, using 21 gauge butterfly. Patient denies discomfort, bleeding controlled, bandage applied. Site appears normal. Urine sample obtained, placed in proper tube for transportation to lab for processing. Normal [facility] TSHon 10-14-2024 TSH 1.035 uIU/mL Normal 0.450-5.330 [facility] Comment on above: Performed By: #### T SH HS, VITB12 #### [facility] [address] [place] [address], VITAMIN B12 (CYANOCOBALAMIN) on 10-14-2024 Cobalamin (Vitamin B12) [Mass/Vol] 1591 pg/mL High 180-914 [facility] Comment on above: Order Comment: Defic ient: <= 145 pg/mL Insufficient: 145 - 180 pg/mL Sufficient: 180 - 914 pg/mL Performed By: #### T SH HS, VITB12 #### [facility] [address] [place] [address], VITAMIN D, 25-HYDROXYon VITD25 43.2 ng/mL Normal 30-100 [facility] Comment on above: Order Comment: Defic ient : <20.0 ng/mL Insufficient : 20.0-29.9 ng/mL Sufficient : 30.0 - 100.0 ng/mL Potential Toxicity : >100.0 ng/mL Performed By: #### V ITD25 #### [facility] [address] [place] [address], Telephone Encounteron 2024 Cofounder Authentication Interface Message Text Left message on patient's VM that lab orders have been placed and he can report to the office to have drawn. Nothing further needed at this time Normal [facility] Telephone Encounteron 2024 Cofounder Authentication Interface Message Text Pt is scheduled for office visit with PCP on 10/18/24. Would like to have labs drawn prior to this appointment due to fasting restrictions, Please place orders in chart if appropriate and send WebPesadost message to patient advising he can come have drawn. Normal [facility] Telephone Encounteron 2024 Cofounder Authentication Interface Message Text Lm on pt vm that appt is Cx. Asked for return call or go on Futurlink to r/s. Also sending PHRQLhart message. Normal [facility] Surgery Visit Reporton 09-10 Surgery Visit Report [facility] [address] [place] [address] OFFICE VISIT Date of Service: 09/10/24 MR#: [id number] Acct: [id number] Name: ROBERTO OSBORN Rep #: [id number] : 1960 Provider: Dr. Bunny baig MD Age/Sex: 64/M Location: [facility] Status: Signed Intake Vital Signs 06/14/24 07:56 [...] you fallen in the past year?: No [facility] Medical History (Updated 09/10/24 @ 08:57 [...] healthy appearing, comfortable and no acute distress [facility] Head: normal to inspection, normocephalic and atraumatic Eyes General: appearance normal, both eyes and all related structures Neck Neck: normal visual inspection GI Other: Abdomen is soft, nontender and nondistended. Examination of the left lateral abdomen near the waistline does reveal some asymmetric swelling compared to the right. I really do not appreciate any obvious dorcas (more content not included)... Normal [facility] Telephone Encounteron 2024 Cofounder Authentication Interface Message Text Situation: calling asking for images of CT to be forwarded to their office. Background: na Assessment: na Recommendation: provided with number to medical records and call was transferred [phone] Normal [facility] Progress Noteson 09-06-2024 Cofounder Authentication Interface Message Text HPI: Roberto is [...] Diagnoses and all orders for this visit: [facility] abdominal mass - EXTERNAL SERVICE REQUEST FOR CARE OUTSIDE THE [employer] SYSTEM Normal [facility] Cofounder Authentication Interface Message Text Patient was identified by name and date of . Jeanie Perkins MA Normal [facility] CT ABDOMEN/PELVIS W/O CONTRA STon 08-20-2024 CT ABDOMEN/PELVIS W/O CONTRAST EXAMINATION: CT ABDOMEN/PELVIS W/O CONTRAST 08/19/2024 01:57 PM CLINICAL HISTORY: Abdominal mass, neoplasm suspected ASSOCIATED DIAGNOSIS: [facility] abdominal mass ORDERING PROVIDER: TIMOTHY CORREA TECHNOLOGISTS [...] as noted above. MACRO: None Normal [facility] Progress Noteson 08-16-2024 Cofounder Authentication Interface Message Text HPI: Roberto presents [...] an (more content not included)... Normal [facility] Cofounder Authentication Interface Message Text Identification was verified by patient verbalizing his name and date of . Normal [facility] Cofounder Authentication Interface Message Text Patient was identified by name and date of . HARVINDER Miller/MPA Normal [facility] Neurology Visit Reporton Neurology Visit Report [facility] [address], [address] [place] [address] OFFICE VISIT Date of Service: 06/14/24 MR#: [id number] Acct: [id number] Name: ROBERTO OSBORN Rep #: [id number] : 1960 Provider: Dr. Adryan angel MD Age/Sex: 64/M [place] [facility] Status: Signed HPI HPI Chief Complaint: Establish Care Details: The patient is a 64-year-old right handed male who presents to [facility]. He self referred for left leg pain due to lower back pain. He had EMG/NCS done 03/2024 that revealed polyneuropathy. He has been seeing [facility] for this as well, was taking lyrica, however at March appointment the plan was to switch him to gabapentin. This gentleman presents by himself for evaluation. Patient seen by me and nurse practitioner Jessenia. Patient is able to provide information on his own behalf. Outside records were also available for review. This includes the emergency department filed on 09/24/2023 as well as records from [facility], [facility] where he has been receiving treatment for chronic low back pain. Record indicates patient has had 3 back surgeries. Most recently at L3-4-5 and S1 with fusions that took place at [facility] on 09/09/2023. Patient has also received interventional treatments with back injections and facet injections from [facility]. Patient's current medications include gabapentin 600 [...] x 3. Memory intact. Lungs show normal legal receptionist expression repetition. Insight and judgment appear [...] to t (more content not included)... Normal [facility].doppler Lower extremity v ein - lefton 12-16-2023 [...] extremity deep venous thrombosis identified. MACRO: None [facility] Rad[facility] Study observation (narrative) [facility] Lower extremity v ein - leftOrdered By: Anson Levin on 12-16-2023 [employer] Work Phone: Endymedon 09-24-2023 Endymed HNO ID: [id number] Author: GLADYS LAWRENCE RT(R) Service: ? Author Type: Technical Service Rep Type: [employer] Filed: 09/24/2023 09:27 Note Text: Radiology Service [...] PATIENT PRESENTS WITH AN IMPLANTABLE OR ATTACHED SHIP OFFICER: No ALLERGIES: Reviewed and unchanged CONTRAST ALLERGY: [...] September 24, 2023 TIME: 9:26 AM Normal [facility] Basic metabolic 2000 panelon 09-24-2023 Anion gap [Moles/Vol] 12 mmol/L Normal 9-18 [facility] Comment on above: Order Comment: Speci men Type: BLOOD SPECIMEN Ordering Facility: [facility] Address: [address] [place] [address] Performed By: #### 2 4321-2 #### [facility] CLIA [id number] [address] [place] [address] [place] Calcium [Mass/Vol] 9.3 mg/dL Normal 8.5-10.2 [facility] Comment on above: Order Comment: Emilyi men Type: BLOOD SPECIMEN Ordering Facility: [facility] Address: [address] [place] [address] Performed By: #### 2 4321-2 #### [facility] CLIA [id number] [address] [place] [address] [place] Chloride [Moles/Vol] 99 mmol/L Normal 97-105 [facility] Comment on above: Order Comment: Speci men Type: BLOOD SPECIMEN Ordering Facility: [facility] Address: [address] [place] [address] Performed By: #### 2 4321-2 #### [facility] CLIA [id number] [address] [place] [address] [place] CO2 [Moles/Vol] 25 mmol/L Normal 22-30 [facility] Comment on above: Order Comment: Speci men Type: BLOOD SPECIMEN Ordering Facility: [facility] Address: [address] [place] [address] Performed By: #### 2 4321-2 #### [facility] CLIA [id number] [address] [place] [address] [place] Creatinine [Mass/Vol] 0.57 mg/dL Low 0.73-1.22 [facility] Comment on above: Order Comment: Vera grant Type: BLOOD SPECIMEN Ordering Facility: [facility] Address: [address] [place] [address] Performed By: #### 2 4321-2 #### [facility] CLIA [id number] [address] [place] [address] [place] Creatinine and Glomerular filtration rate.predicted panel (S/P/Bld) 109 mL/min/1.73m??? Normal >=60 [facility] Comment on above: Order Comment: Vera juanita Type: BLOOD SPECIMEN Ordering Facility: [facility] Address: [address] [place] [address] Result Comment: Snehal mated Glomerular Filtration Rate [...] GFR. Performed By: #### 2 4321-2 #### [facility] CLIA [id number] [address] [place] [address] [place] Glucose [Mass/Vol] 167 mg/dL High 74-99 [facility] Comment on above: Order Comment: Vera juanita Type: BLOOD SPECIMEN Ordering Facility: [facility] Address: [address] [place] [address] Result Comment: The [place] Diabetes Association (ADA) provides guidance for cutoff [...] Standards of Medical Care in Diabetes 2016, [place] [employer]. Diabetes Care. 2016.39(Suppl 1). Performed By: #### 2 4321-2 #### [facility] CLIA [id number] [address] [place] [address] [place] Potassium [Moles/Vol] 3.7 mmol/L Normal 3.7-5.1 [facility] Comment on above: Order Comment: Speci men Type: BLOOD SPECIMEN Ordering Facility: [facility] Address: [address] [place] [address] Performed By: #### 2 4321-2 #### [facility] CLIA [id number] [address] [place] [address] STATES [place] [facility] Sodium [Moles/Vol] 136 mmol/L Normal 136-144 [facility] Comment on above: Order Comment: Emilyi men Type: BLOOD SPECIMEN Ordering Facility: [facility] Address: [address] [place] [address] Performed By: #### 2 4321-2 #### [facility] CLIA [id number] [address] [place] [address] [place] Urea nitrogen [Mass/Vol] 7 mg/dL Low 9-24 [facility] Comment on above: Order Comment: Speci men Type: BLOOD SPECIMEN Ordering Facility: [facility] Address: [address] [place] [address] Performed By: #### 2 4321-2 #### [facility] CLIA [id number] [address] [place] [address] [place] CBC panel Auto (Bld)on 09-24 Erythrocyte distribution width (RBC) [Ratio] 14.7 % Normal 11.5-15.0 [facility] Comment on above: Order Comment: Speci men Type: BLOOD SPECIMEN Ordering Facility: [facility] Address: [address] [place] [address] Performed By: #### 5 8410-2 #### [facility] CLIA [id number] [address] [place] [id number] [place] [address] [place] Hematocrit (Bld) [Volume fraction] 36.9 % Low 39.0-51.0 [facility] Comment on above: Order Comment: Speci men Type: BLOOD SPECIMEN Ordering Facility: [facility] Address: [address] [place] [address] Performed By: #### 5 8410-2 #### [facility] CLIA [id number] [address] [place] [address] [place] Hemoglobin (Bld) [Mass/Vol] 12.1 g/dL Low 13.0-17.0 [facility] Comment on above: Order Comment: Speci men Type: BLOOD SPECIMEN Ordering Facility: [facility] Address: [address] [place] [address] Performed By: #### 5 8410-2 #### [facility] CLIA [id number] [address] [place] [address] [place] MCH (RBC) [Entitic mass] 28.7 pg Normal 26.0-34.0 [facility] Comment on above: Order Comment: Speci men Type: BLOOD SPECIMEN Ordering Facility: [facility] Address: [address] [place] [address] Performed By: #### 5 8410-2 #### [facility] CLIA [id number] [address] [place], [place] [id number] [place] [address] [place] MCHC (RBC) [Mass/Vol] 32.8 g/dL Normal 30.5-36.0 [facility] Comment on above: Order Comment: Speci men Type: BLOOD SPECIMEN Ordering Facility: [facility] Address: [address] [place] [address] Performed By: #### 5 8410-2 #### [facility] CLIA [id number] [address] [place] [address] [place] MCV (RBC) [Entitic vol] 87.4 fL Normal 80.0-100.0 [facility] Comment on above: Order Comment: Speci men Type: BLOOD SPECIMEN Ordering Facility: [facility] Address: [address] [place] [address] Performed By: #### 5 8410-2 #### [facility] CLIA [id number] [address] [place] [address] [place] Platelet mean volume (Bld) [Entitic vol] 8.4 fL Low 9.0-12.7 [facility] Comment on above: Order Comment: Speci men Type: BLOOD SPECIMEN Ordering Facility: [facility] Address: [address] [place] [address] Performed By: #### 5 8410-2 #### [facility] CLIA [id number] [address] [place], [place] [id number] [place] [address] [place] Platelets (Bld) [#/Vol] 578 10*3/uL High 150-400 [facility] Comment on above: Order Comment: Speci men Type: BLOOD SPECIMEN Ordering Facility: [facility] Address: [address] [place] [address] Performed By: #### 5 8410-2 #### [facility] CLIA [id number] [address] [place] [address] [place] RBC (Bld) [#/Vol] 4.22 10*6/uL Normal 4.20-6.00 [facility] Comment on above: Order Comment: Speci men Type: BLOOD SPECIMEN Ordering Facility: [facility] Address: [address] [place] [address] Performed By: #### 5 8410-2 #### [facility] CLIA [id number] [address] [place] [address] [place] WBC (Bld) [#/Vol] 12.19 10*3/uL High 3.70-11.00 [facility] Comment on above: Order Comment: Speci men Type: BLOOD SPECIMEN Ordering Facility: [facility] Address: [address] [place] [address] Performed By: #### 5 8410-2 #### [facility] CLIA [id number] [address] [place] [address] [place] CT LUMBAR SPINE W IVCONon CT LUMBAR SPINE W IVCON * * *Final Report* * * DATE OF EXAM: Sep 24 2023 9:25AM [facility] 0012 - CT LUMBAR SPINE W IVCON [...] are 5 lumbar-type vertebrae. Anatomic variant: None. Occupational Health Nurse Manager (topogram) images: No additional findings. Alignment: Very [...] and assume there are 5 lumbar-type vertebrae. Movie Producer: [facility]ITAL[facility]ra Transcribe Date/Time: Sep 24 2023 9:32A Dictated by : CISCO SCHWAB MD This examination was interpreted and the report reviewed and electronically signed by: CISCO SCHWAB MD on Sep 24 2023 9:45AM EST [id number] Normal [facility] ED NOTEon 09-24-2023 ED NOTE HNO ID: [id number] Author: RANJIT CALABRESE RN Service: Emergency Medicine Author Type: Registered Nurse Type: ED Notes Filed: 09/24/2023 10:42 Note Text: Results are back, pt resting in bed, at bedside, pt feeling better. Normal [facility] ED NOTE HNO ID: [id number] Author: RANJIT CALABRESE RN Service: Emergency Medicine Author Type: Registered Nurse Type: ED Notes Filed: 09/24/2023 08:51 Note Text: Post void bladder scan 288 mls, doctor Jose made aware. Normal [facility] ED NOTE HNO ID: [id number] Author: RANJIT CALABRESE RN Service: Emergency Medicine Author Type: Registered Nurse Type: ED Notes Filed: 09/24/2023 07:34 Note Text: Ice pack to lower back for pt comfort Normal [facility] ED NOTE HNO ID: [id number] Author: RANJIT CALABRESE RN Service: Emergency Medicine Author Type: Registered Nurse Type: ED Notes Filed: 09/24/2023 07:15 Note Text: Back fusion 09-09-2023, past 4 days have been having pain going down left leg Normal [facility] ED PROV NOTEon 09-24-2023 ED PROV NOTE HNO ID: [id number] Author: REECE COOPER MD Service: Emergency Medicine Author Type: Physician Type: ED Provider Notes Filed: 09/24/2023 11:06 Note Text: ED Provider Note Patient Name: Roberto Osborn SR : 1960 SERVICE DATE: 09/24/23 History Patient presents with: Back Pain Patient with history of chronic back pain, status post back surgery x 3, most recently at L3, 4, 5, S1 fusion at [facility] on 09/09/2023, presents to the emergency [...] intact plantarfle (more content not included)... Normal [facility] No Panel Informationon 07-20 IMPRESSION: No acute abnormality Movie Producer: ENOCH Transcribe Date/Time: Jul 20 2023 1:19P Dictated by : JIHAN MIX MD This examination was interpreted and the report reviewed and electronically signed by: JIHAN MIX MD on Jul 20 2023 1:20PM [facility] No Panel InformationOrdered By: Ccf Provider on 07-20-2023 [facility] X[facility] Hip - left AP and [...] in left hip .LEFT HIP PAIN (accession [id number]), RIGHT KNEE PAIN (accession [id number]) TECHNIQUE: XR AP PELVIS, CROSSTABLE LATERAL LEFT [...] Small joint effusion. 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 [facility] Provider, Cchugo [facility] - 07/20/2023 * * *Final Report* * * DATE OF EXAM: Jul 18 2023 8:26AM ALFREDO 5279 - XR HIP 2V AP/ LAT LT / PROCEDURE REASON: M25.552-Pain in left hip * * * * Physician Interpretation * * * * PROCEDURE: Left hip and right knee INDICATION: Pain in left hip .LEFT HIP PAIN (accession [id number]), RIGHT KNEE PAIN (accession [id number]) TECHNIQUE: XR AP PELVIS, CROSSTABLE LATERAL LEFT [...] is evident. IMPRESSION IMPRESSION: No acute abnormality Movie Producer: [employer]CH Transcribe Date/Time: Jul 20 2023 1:19P Dictated by : JIHAN MIX MD This examination was interpreted and the report reviewed and electronically signed by: JIHAN MIX MD on Jul 20 2023 1:20PM [facility] XR Knee AP and Lateral and [...] in left hip .LEFT HIP PAIN (accession [id number]), RIGHT KNEE PAIN (accession [id number]) TECHNIQUE: XR AP PELVIS, CROSSTABLE LATERAL LEFT [...] Small joint effusion. 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 [facility] * * *Final Report* * * DATE OF EXAM: Jul 18 2023 8:26AM ALFR[facility]O 5209 - XR KNEE 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 RT / PROCEDURE REASON: M25.561-Right knee pain, unspecified chronicity * * * * Physician Interpretation * * * * PROCEDURE: Left hip and right knee INDICATION: Pain in left hip .LEFT HIP PAIN (accession [id number]), RIGHT KNEE PAIN (accession [id number]) TECHNIQUE: XR AP PELVIS, CROSSTABLE LATERAL LEFT [...] is evident. IMPRESSION IMPRESSION: No acute abnormality Movie Producer: PSCB Transcribe Date/Time: Jul 20 2023 1:19P Dictated by : JIHAN MIX MD This examination was interpreted and the report reviewed and electronically signed by: JIHAN MIX MD on Jul 20 2023 1:20PM [facility] CNOVon 07-18-2023 CNOV Office Visit (ORNA ) ROBERTO OSBORN SR ([id number]) 1960 M Date Time Provider Department 07/18/23 [...] in left hip .LEFT HIP PAIN (accession [id number]), RIGHT KNEE PAIN (accession [id number]) TECHNIQUE: XR AP PELVIS, CROSSTABLE LATERAL LEFT [...] is evident. Impression: IMPRESSION: No acute abnormality Movie Producer: [facility] Transcribe Date/Time: Jul 20 2023 1:19P Dictated [...] in left hip .LEFT HIP PAIN (accession [id number]), RIGHT KNEE PAIN (accession [id number]) TECHNIQUE: XR AP PELVIS, CROSSTABLE LATERAL LEFT [...] is evident. Impression: IMPRESSION: No acute abnormality Movie Producer: PSCB Transcribe Date/Time: Jul 20 2023 1:19P [...] MD Electronic (more content not included)... Normal [facility] No Panel Informationon 07-18 Radiology Study observation (narrative) [facility] XR HIP 2V AP/ LAT LTon [...] in left hip .LEFT HIP PAIN (accession [id number]), RIGHT KNEE PAIN (accession [id number]) TECHNIQUE: XR AP PELVIS, CROSSTABLE LATERAL LEFT [...] TKA is evident. IMPRESSION: No acute abnormality Movie Producer: PSCB Transcribe Date/Time: Jul 20 2023 1:19P Dictated by : JIHAN MIX MD This examination was interpreted and the report reviewed and electronically signed by: JIHAN MIX MD on Jul 20 2023 1:20PM EST [id number] [facility] XR KNEE 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 R Ton [...] in left hip .LEFT HIP PAIN (accession [id number]), RIGHT KNEE PAIN (accession [id number]) TECHNIQUE: XR AP PELVIS, CROSSTABLE LATERAL LEFT [...] TKA is evident. IMPRESSION: No acute abnormality Movie Producer: PSCMayra Transcribe Date/Time: Jul 20 2023 1:19P Dictated by : JIHAN MIX MD This examination was interpreted and the report reviewed and electronically signed by: JIHAN MIX MD on Jul 20 2023 1:20PM EST [id number] [facility] ROBERTO OSBORN SR ([id number]) 1960 M Date Time Provider Department 06/16/23 CHIKA CARPENTER During your visit today, we [...] Encounter Status:Closed by EDA CASTELLANOS on 06/24/23 [facility] CNOVon 05-30-2023 CNOV Office Visit (ORMDNA ) ROBERTO OSBORN SR ([id number]) 1960 M Date Time Provider Department 05/30/23 [...] Chika Carpenter M.D. Department of Orthopaedic Surgery [facility] Allergies As of Date: 05/30/2023 Noted Allergy Reaction CODEINE 07/18/2021 2 - Rash MORPHINE 10/26/2020 4 - Hives Date Reviewed: 05/30/2023 Reviewed by: Chika Carpenter MD - Fully Assessed Reason for Visit: Follow Up [171] Cmt: Bone scan results Primary Visit Diagnosis:Pain due to internal orthopedic prosthetic devices, implants and grafts, initial encounter ([facility] [T84.84XA] Order(s):meloxicam (MOBIC) 7.5 mg tabletTake 1 [...] of breath). (more content not included)... Normal [facility] BONE 3 PHASEon 05-23-2023 [place] BONE 3 PHASE * * *Final Report* * * DATE OF EXAM: May 23 2023 1:10PM CARLEE 0009 - [place] BONE 3 PHASE / PROCEDURE REASON: multiple diagnoses * * * * Physician Interpretation * * * * EXAM: THREE-PHASE BONE SCAN HISTORY: Pain due to internal orthopedic prosthetic devices, implants and grafts, initial encounter ([facility]) S/P total knee replacement using cement, left [...] Presumed postop changes in the right knee. Movie Producer: ENOCH Transcribe Date/Time: May 23 2023 1:29P Dictated by : CALI OBRIEN, This examination was interpreted and the report reviewed and electronically signed by: ALESHA DEE MD on May 23 2023 2:14PM EST [id number] [facility] No Panel Informationon 05-23 [facility] 05-20-2023 KATIE Telephone (SANTIAGO) ROBERTO OSBORN SR ([id number]) 1960 M Date Time Provider Department 05/20/23 CHIKA CARPENTER During your visit today, we recorded the following information about you: Eda Castellanos 05/20/2023 10:13 AM Signed Please leave a voice mail at [phone] for spouse Lien for two appts for [...] Status:Closed by EDA CASTELLANOS on 05/21/23 Normal [facility] XR Knee AP and Lateral and M erchantson 05-19-2023 IMPRESSION: Al NASCIMENTO Movie Producer: ENOCH Transcribe Date/Time: May 19 2023 8:53A Dictated by : JIHAN MIX MD This examination was interpreted and the report reviewed and electronically signed by: JIHAN MIX MD on May 19 2023 8:54AM EST [facility] * * *Final Report* * * [...] No periprosthetic fracture or significant joint effusion. [facility] Provider, Sunny Jiang - 05/19/2023 * [...] significant joint effusion. IMPRESSION IMPRESSION: Stable TKA Movie Producer: PSCB Transcribe Date/Time: May 19 2023 8:53A Dictated by : JIHAN MIX MD This examination was interpreted and the report reviewed and electronically signed by: JIHAN MIX MD on May 19 2023 8:54AM EST [facility] XR Knee AP and Lateral and M erchantsOrdered By: Ccf Provider on 05-19-2023 [facility] CNOVon 05-16-2023 CNOV Office Visit (ORMDNA ) ROBERTO OSBORN ([id number]) 1960 M Date Time Provider Department 05/16/23 [...] possible loosening (more content not included)... Normal [facility] XR KNEE 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 L Ton [...] or significant joint effusion. IMPRESSION: Stable TKA Movie Producer: ENOCH Transcribe Date/Time: May 19 2023 8:53A Dictated by : JIHAN MIX MD This examination was interpreted and the report reviewed and electronically signed by: JIHAN MIX MD on May 19 2023 8:54AM EST [id number] [facility] XR Knee AP and Lateral and M erchantson 05-16-2023 Radiology Study observation (narrative) [facility] 05-12-2023 CNPN Telephone (ORMDNA) ROBERTO OSBORN SR ([id number]) 1960 M Date Time Provider Department 05/12/23 CHIKA CARPENTER During your visit today, we recorded the following information about you: Eda Castellanos 05/12/2023 9:33 AM Signed Patient needs appt for left knee pain (old tka). He needs this Friday or next Friday if possible. Ok to offer Aliza if available. Please contact Lien (spouse) to schedule at her work [phone]. AramisClemente 05/12/2023 9:49 AM Signed Patient is [...] Status:Closed by CLEMENTE SELF on 05/12/23 Normal [facility] CREATINE KINASEon 04-24-2023 CK [Catalytic activity/Vol] [...] Office Visit (SANTIAGO ) ROBERTO OSBORN SR ([id number]) 1960 M Date Time Provider Department 12/06/22 [...] for Encounter Date Provider Department Center 12/06/2022 [id number] CARPENTER [facility] Letter Text Encounter Status:Closed by CHIKA CARPENTER on 12/16/22 [facility] 11-19-2022 CNPN Telephone (ORQ) ROBERTO OSBORN ([id number]) 1960 Date Time Provider Department 11/19/22 CHIKA [...] that same letter to be faxed to [phone]. Thank you! Eda Dyllan [facility] 11/21/2022 9:55 AM Signed This was done on 11/20/22. Allergies As of Date: 11/19/2022 Noted Allergy Reaction CODEINE 07/18/2021 2 - Rash MORPHINE 10/26/2020 4 - Hives Date Reviewed: 10/27/2022 Reviewed by: Chika Carpenter MD - Fully Assessed Reason for Visit: Patient Question [9601] Prescriptions as of 11/21/2022 - acetaminophen (TYLENOL) [...] knee [M25.561, G89.29] 10/02/2022 [facility] CNCOon 11-15-2022 CNCO Letter Text [facility] CNPNon 11-08-2022 CNPN Telephone (SANTIAGO) ROBERTO OSBORN SR ([id number]) 1960 M Date Time Provider Department 11/08/22 CHIKA CARPENTER During your visit today, we recorded the following information about you: Eda Mijares [facility] 11/08/2022 1:18 PM Signed Patient asking if he could have a return to work letter for light duty to begin on 11/18/22. If you agree, it would need to be faxed to [phone] ('s work), no cover sheet needed. Regla [...] Encounter Status:Closed by REGLA HIGGINS on 11/08/22 [facility] CNTHERAPYon 11-06-2022 CNTHERAPY OT/PT/Speech Visit (PTMDRG) ROBERTO OSBORN ([id number]) 1960 M Date Time Provider Department 11/06/22 8:00 AM TRE GOG Date Time Provider Department Center 11/06/2022 8:00 AM [id number], SCOTT PTMDRG [facility] Reason for Visit: Physical Therapy [...] as of 09/12/2022: no interactions 2. Normal [facility] CNTHERAPYon 10-30-2022 CNTHERAPY OT/PT/Speech Visit (PTMDRG) ROBERTO OSBORN ([id number]) 1960 M Date Time Provider Department 10/30/22 8:00 AM TRE GO PTMDRG Date Time Provider Department Center 10/30/2022 8:00 AM [id number], SCOTT PTMDRG [facility] Reason for Visit: PT Progress Note [1596] [...] Comments as of 09/12/2022: no interactions 09-12-22. [facility] CNTHERAPYon 10-28-2022 CNTHERAPY OT/PT/Speech Visit (PTMDRG) ROBERTO OSBORN SR ([id number]) 1960 M Date Time Provider Department 10/28/22 7:00 AM TOY COREAS PTMDRG Date Time Provider Department Center 10/28/2022 7:00 AM [id number], SUSAN PTMDRG [facility] Reason for Visit: Physical Therapy [503] [...] Comments as of 09/12/2022: no interactions 09-12-22. [facility] 10-25-2022 [facility] Office Visit (ORGARETH ) ROBERTO OSBORN SR ([id number]) 1960 M Date Time Provider Department 10/25/22 [...] Encounter Status:Closed by CHIKA CARPENTER on 10/27/22 [facility] CNTHERAPYon 10-24-2022 CNTHERAPY OT/PT/Speech Visit (PTMDRG) ROBERTO OSBORN ([id number]) 1960 M Date Time Provider Department 10/24/22 7:00 AM TRE GO PTMG Date Time Provider Department [place] 10/24/2022 7:00 AM [id number], SCOTT PTMDRG [facility] Reason for Visit: Physical Therapy [503] [...] Comments as of 09/12/2022: no interactions 09-12-22. [facility] CNTHERAPYon 10-21-2022 CNTHERAPY OT/PT/Speech Visit (PTMDRG) ROBERTO OSBORN SR ([id number]) 1960 M Date Time Provider Department 10/21/22 7:45 AM TOY COREAS Date Time Provider Department Center 10/21/2022 7:45 AM [id number] COREAS [facility] Reason for Visit: Physical Therapy [503] [...] Comments as of 09/12/2022: no interactions 2-2-23. [facility] CNTHERAPYon 10-16-2022 CNTHERAPY OT/PT/Speech Visit (PTMDRG) ROBERTO OSBORN ([id number]) 1960 M Date Time Provider Department 10/16/22 8:00 AM TRE GO PTMDRG Date Time Provider Department Center 10/16/2022 8:00 AM [id number], SCOTT PTMDRG [facility] Reason for [...] Comments as of 09/12/2022: no interactions 09-12-22. [facility] 10-15-2022 CNPN Telephone (SANTIAGO) LAWROBERTO Zonia SR ([id number]) 1960 M Date Time Provider Department 10/15/22 [...] Encounter Status:Closed by SG JUDD on 10/17/22 [facility] CNTHERAPYon 10-14-2022 CNTHERAPY OT/PT/Speech Visit (PTMDRG) ROBERTO OSBORN SR ([id number]) 1960 M Date Time Provider Department 10/14/22 7:00 AM TOY COREAS PTMDRG Date Time Provider Department Center 10/14/2022 7:00 AM [id number], SUSAN [facility] Reason for Visit: Physical Therapy [503] Primary [...] as of 09/12/2022: no interactions 2-2-23. Normal [facility] CNTHERAPYon 10-10-2022 CNTHERAPY OT/PT/Speech Visit (PTMDRG) ROBERTO OSBORN ([id number]) 1960 M Date Time Provider Department 10/10/22 11:15 AM AVA KEITA PTMDRG Date Time Provider Department Center 10/10/2022 11:15 AM [id number] KEITA PTMDRG [facility] Reason for Visit: Physical Therapy [...] Comments as of 09/12/2022: no interactions -10-03. [facility] CNTHERAPYon 10-02-2022 CNTHERAPY OT/PT/Speech Visit (PTMDRG) ROBERTO OSBORN SR ([id number]) 1960 M Date Time Provider Department 10/02/22 8:45 AM TRE GO PTMDRG Date Time Provider Department Center 10/02/2022 8:45 AM [id number], SCOTT PTMDRG [facility] Reason for Visit: PT Eval [747] Visit [...] as of 09/12/2022: no interactions 2. Normal [facility] XR Knee AP and Lateral and M jean pierre 09-26-2022 IMPRESSION: Al NASCIMENTO Movie Producer: ENOCH Transcribe Date/Time: Sep 26 2022 1:59P Dictated by : JIHAN MIX MD This examination was interpreted and the report reviewed and electronically signed by: JIHAN MIX MD on Sep 26 2022 2:00PM EST [facility] * * *Final Report* * * [...] soft tissue emphysema. 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 [facility] Provider, Sunny Jiang - 09/26/2022 * [...] TKA is evident. IMPRESSION IMPRESSION: Stable TKA Movie Producer: PSCB Transcribe Date/Time: Sep 26 2022 1:59P Dictated by : JIHAN MIX MD This examination was interpreted and the report reviewed and electronically signed by: JIHAN MIX MD on Sep 26 2022 2:00PM EST [facility] XR Knee AP and Lateral and M erchantsOrdered By: Ccf Provider on 09-26-2022 [facility] CNOVon 09-25-2022 CNOV Office Visit (SANTIAGO ) ROBERTO ([id number]) 1960 M Date Time Provider Department 09/25/22 [...] arthroplasty, right [Z96.651] Order(s):CONSULT TO PHYSICAL THERAPY [9047] Order #: [id number]: 1 FUTURE Prescriptions as of 09/25/2022 - [...] Encounter Status:Closed by MATTHIEU ESPARZA on 09/25/22 [facility] XR KNEE 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 R Ton [...] 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 IMPRESSION: Stable TKA Movie Producer: PSCB Transcribe Date/Time: Sep 26 2022 1:59P Dictated by : JIHAN MIX MD This examination was interpreted and the report reviewed and electronically signed by: JIHAN MIX MD on Sep 26 2022 2:00PM EST [id number] [facility] XR Knee AP and Lateral and M erchantson 09-25-2022 Radiology Study observation (narrative) [facility] 09-14-2022 CNPN Telephone (HCSIND) ROBERTO OSBORN SR ([id number]) 1960 M Date Time Provider Department 09/14/22 [...] Encounter Status:Closed by TRUPTI BAR on 09/14/22 [facility] 09-12-2022 CNPN Telephone (ME2E) ROBERTO OSBORN SR ([id number]) 1960 M Date Time Provider Department 09/12/22 CHIKA CARPENTER TX2E During your visit today, we recorded the following information about you: FILIBERTO Villalobos 09/12/2022 10:31 AM Addendum Kirill PT at [facility]. Pic of drainage uploaded in [employer]. Per Manjeet GARCIA, remove silverlon and use [...] Encounter Status:Closed by RONY DOYLE on 09/12/22 [facility] Basic metabolic 2000 panelon 09-11-2022 Anion gap [Moles/Vol] 9 mmol/L Normal 9-18 [facility] Comment on above: Order Comment: Speci men Type: BLOOD SPECIMENOrdering Facility: [facility] Address: [address] [place] [address] Performed By: #### 2 4321-2 ####[facility] LABORATORYCLIA [id number] [place] [address] [place] Calcium [Mass/Vol] 8.8 mg/dL Normal 8.5-10.2 [facility] Comment on above: Order Comment: Speci men Type: BLOOD SPECIMENOrdering Facility: [facility] Address: [address] [place] [address] Performed By: #### 2 4321-2 ####[facility] LABORATORYCLIA [id number] [place] [address] [place] Chloride [Moles/Vol] 103 mmol/L Normal 97-105 [facility] Comment on above: Order Comment: Speci men Type: BLOOD SPECIMENOrdering Facility: [facility] Address: [address] [place] [address] Performed By: #### 2 4321-2 ####[facility] LABORATORYCLIA [id number] [place] [address] [place] CO2 [Moles/Vol] 27 mmol/L Normal 22-30 [facility] Comment on above: Order Comment: Speci men Type: BLOOD SPECIMENOrdering Facility: [facility] Address: [address] [place] [address] Performed By: #### 2 4321-2 ####[facility] LABORATORYCLIA [id number] [place] [address] [place] Creatinine [Mass/Vol] 0.54 mg/dL Low 0.73-1.22 [facility] Comment on above: Order Comment: Speci men Type: BLOOD SPECIMENOrdering Facility: [facility] Address: [address] [place] [address] Performed By: #### 2 4321-2 ####[facility] LABORATORYCLIA [id number] [place] [address] [place] ESTIMATED GLOMERULAR FILTRATION RATE 112 mL/min/1.73m??? Normal >=60 [facility] Comment on above: Order Comment: Vera grant Type: BLOOD SPECIMENOrdering Facility: [facility] Address: [address] [id number] Result Comment: Snehal mated Glomerular Filtration Rate [...] Performed By: #### 2 4321-2 ####[facility] LABORATORYCLIA [id number] [place] [address] [place] Glucose [Mass/Vol] 116 mg/dL High 74-99 [facility] Comment on above: Order Comment: Vera grant Type: BLOOD SPECIMENOrdering Facility: [facility] Address: [address] [address] Result Comment: The [place] Diabetes Association (ADA) provides guidance for cutoff [...] Standards of Medical Care in Diabetes 2016, [place] [employer]. Diabetes Care. 2016.39(Suppl 1). Performed By: #### 2 4321-2 ####[facility]ORYCLIA [id number] [place] [id number] [place] Potassium [Moles/Vol] 3.7 mmol/L Normal 3.7-5.1 [facility] Comment on above: Order Comment: Vera grant Type: BLOOD SPECIMENOrdering Facility: [facility] Address: [address] Performed By: #### 2 4321-2 ####BO[facility] LABORATORYCLIA [id number] [address] [place] [facility] Sodium [Moles/Vol] 139 mmol/L Normal 136-144 [facility] Comment on above: Order Comment: Speci men Type: BLOOD SPECIMENOrdering Facility: [facility] Address: [address] [place] [address] Performed By: #### 2 4321-2 ####[facility] LABORATORYCLIA [id number] [address] Urea nitrogen [Mass/Vol] 6 mg/dL Low 9-24 [facility] Comment on above: Order Comment: Speci men Type: BLOOD SPECIMENOrdering Facility: [facility] Address: [address] [place] [address] Performed By: #### 2 4321-2 ####[facility] LABORATORYCLIA [id number] [address] OF [facility] CASE MANAGEMon 09-11-2022 CASE MANAGEM HNO ID: [id number] Author: Taylor Boyce RN Service: ? Author Type: Registered Nurse Type: Care Mgt Progress Note Filed: 09/11/2022 2:24 PM Note Text: CARE MANAGEMENT DISCHARGE NOTE SERVICE DATE: 09/11/2022 SERVICE TIME: 2:23 PM LOS: 0 days Admission Date: 09/10/2022 DISCHARGE ARRANGEMENT (list agency and phone number) Discharge Arrangement: Home with Home Health Provider Name: [facility] CAREGIVER ASSESSMENT: Caregiver is ready, willing and able to meet the patient's needs as recommended by the inter-professional team:: Yes Patient's transition needs and plan for meeting these needs: Home PT HANDOFF COMMUNICATION: Handoff to: Primary Care Physician Primary Care Physician Name/Phone: Dr. Timothy Correa- [phone] TRANSPORTATION ARRANGEMENTS: Transportation Arrangements: Car- to transport Discharge Information Row Name Admission (Current) from 09/10/[address] [facility] Start of Care -- Within 24- 48 hours Needs Prior to Discharge: Ready for Discharge Discharge order written for today. [facility] will be seeing the patient for Home PT with a start of care within 24- 48 hours. Notified [facility] of the patients discharge home today. SIGNATURE: Taylor Boyce RN PATIENT NAME: Roberto Osborn SR DATE: September 11, 2022 TIME: 2:23 PM PAGER/CONTACT #: [phone] [facility] CASE MANAGEM HNO ID: [id number] Author: Taylor Boyce RN Service: ? Author Type: Registered Nurse Type: Care Mgt Progress Note Filed: 09/11/2022 11:11 AM Note Text: CARE MANAGEMENT PROGRESS NOTE SERVICE DATE: 09/11/2022 SERVICE TIME: 11:10 AM LOS: 0 days Needs Prior to Discharge: To Be Determined [facility] able to accept. CM department will continue to follow for DC needs. SIGNATURE: Taylor Boyce RN PATIENT NAME: Roberto Osborn SR DATE: September 11, 2022 TIME: 11:10 AM PAGER/CONTACT #: [phone] [facility] CASE MGT INIT ASSESon 2022 CASE MGT INIT [facility] HNO ID: [id number] Author: Taylor Boyce RN Service: ? Author Type: Registered Nurse Type: Care Mgt Initial Assessment Filed: 09/11/2022 10:22 AM Note Text: CARE MANAGEMENT: ASSESSMENT AND DISCHARGE PLAN SERVICE DATE: September 11, 2022 SERVICE TIME: 10:21 AM PRIMARY CARE PHYSICIAN: Timothy Correa MD Primary Contact: Extended Emergency Contact Information Primary Emergency Contact: Lien Osborn Address: [address] [place] [id number] Relation: Spouse ADMISSION STATUS: Extended Recovery Insurance Provider: BLUE CARD PPO OOS NEEDS PRIOR TO DISCHARGE Needs Prior to Discharge: To Be Determined POTENTIAL TRANSITION PLANS To Be Determined Based on clinical judgement, Care Management will address the following needs: Functional Patient's perception of need for this admission: Elective surgery ADVANCE DIRECTIVES Current Advance Directive: None Stemming Machine Operator Attempted to Assist with AD Completion: Yes [...] discharge within 30 days: No PATIENT SCREEN 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 FREEDOM OF CHOICE EXPLAINED: [place] of Choice Given: Yes Level of Care [...] PT recommendations with the patient, referral to [facility]. CM department will continue to follow for DC needs. SIGNATURE: Taylor (more content not included)... Normal [facility] CBC panel Auto (Bld)on 09-11 Erythrocyte distribution width (RBC) [Ratio] 13.9 % Normal 11.5-15.0 [facility] Comment on above: Order Comment: Vera grant Type: BLOOD SPECIMENOrdering Facility: [facility] Address: [address] [place] [address] Performed By: #### 5 8410-2 ####[facility]ORATORYCLIA [id number] [place] [address] [place] Hematocrit (Bld) [Volume fraction] 35.7 % Low 39.0-51.0 [facility] Comment on above: Order Comment: Vera grant Type: BLOOD SPECIMENOrdering Facility: [facility] Address: [address] [address] Performed By: #### 5 8410-2 ####[facility]ORATORYCLIA [id number] [place] [address] [place] Hemoglobin (Bld) [Mass/Vol] 12.0 g/dL Low 13.0-17.0 [facility] Comment on above: Order Comment: Speci men Type: BLOOD SPECIMENOrdering Facility: [facility] Address: [address] [place] [address] Performed By: #### 5 8410-2 ####[facility] LABORATORYCLIA [id number] [address] MCH (RBC) [Entitic mass] 29.7 pg Normal 26.0-34.0 [facility] Comment on above: Order Comment: Speci men Type: BLOOD SPECIMENOrdering Facility: [facility] Address: [address] [place] [address] Performed By: #### 5 8410-2 ####[facility] LABORATORYCLIA [id number] [address] MCHC (RBC) [Mass/Vol] 33.6 g/dL Normal 30.5-36.0 [facility] Comment on above: Order Comment: Speci men Type: BLOOD SPECIMENOrdering Facility: [facility] Address: [address] [place] [address] Performed By: #### 5 8410-2 ####[facility] LABORATORYCLIA [id number] [address] MCV (RBC) [Entitic vol] 88.4 fL Normal 80.0-100.0 [facility] Comment on above: Order Comment: Speci men Type: BLOOD SPECIMENOrdering Facility: [facility] Address: [address] [place] [address] Performed By: #### 5 8410-2 ####[facility] LABORATORYCLIA [id number] [address] Nucleated RBC (Bld) [#/Vol] 10*3/uL Normal <0.01 [facility] Comment on above: Order Comment: Speci men Type: BLOOD SPECIMENOrdering Facility: [facility] Address: [address] [place] [address] Performed By: #### 5 8410-2 ####[facility] LABORATORYCLIA [id number] [place] [address] [place] Platelet mean volume (Bld) [Entitic vol] 9.3 fL Normal 9.0-12.7 [facility] Comment on above: Order Comment: Speci men Type: BLOOD SPECIMENOrdering Facility: [facility] Address: [address] [place] [address] Performed By: #### 5 8410-2 ####[facility]ORATORYCLIA [id number] [address] [place] Platelets (Bld) [#/Vol] 287 10*3/uL Normal 150-400 [facility] Comment on above: Order Comment: Speci men Type: BLOOD SPECIMENOrdering Facility: [facility] Address: [address] [place] [address] Performed By: #### 5 8410-2 ####[facility]ORATORYCLIA [id number] [address] [place] RBC (Bld) [#/Vol] 4.04 10*6/uL Low 4.20-6.00 [facility] Comment on above: Order Comment: Speci men Type: BLOOD SPECIMENOrdering Facility: [facility] Address: [address] [place] [address] Performed By: #### 5 8410-2 ####[facility]ORYCLIA [id number] [address] [place] WBC (Bld) [#/Vol] 11.09 10*3/uL High 3.70-11.00 [facility] Comment on above: Order Comment: Speci men Type: BLOOD SPECIMENOrdering Facility: [facility] Address: [address] [place] [address] Performed By: #### 5 8410-2 ####[facility]ORATORYCLIA [id number] [address] [place] CNCOon 09-11-2022 CNCO Letter Text Normal [facility] CNDSon 09-11-2022 CNDS HNO ID: [id number] Author: Matthieu Esparza PA-C Service: Orthopaedic Surgery Author Type: Physician Ui Designer Type: Discharge Summary Filed: 09/11/2022 12:42 PM [...] These instructions explain what you or your day care provider need to do to continue your care at home or at another healthcare facility Please go over these instructions with your nurse and day care provider. If you are not sure about something, [...] or flu-like symptoms (more content not included)... [facility] 09-11-2022 [facility] Telephone (HCSIND) ROBERTO OSBORN SR ([id number]) 1960 M Date Time Provider Department 09/11[facility] your visit today, we recorded the following information about you: Sanaz Dean [facility] 09/11/2022 11:22 AM Signed Welcome Home Call: a. Date and Time: 11:21 AM 09/11/2022 b. Contact name/relationship: Patient, Roberto c. Have you been active with any Home Care company in the last 60 days(such as help with bathing, filling medications, checking your blood pressure) ? No. d. Was patient given Flu shot this Season (After Apr,): Yes: Location: , Date received: 08/10/22 e. [facility] will be providing your care, are you agreeable to starting these services? YES (yes or no) f. Do you have any upcoming appointments in the next few days, or restrictions to your schedule? NO g. Caregiver: Patient is able to manage care independently h. Confirmed Visited Location and preferred #: [phone] [place] [address] Please keep our your medications both over the counter and prescribed out for the home care to review, your hospital discharge instructions and write down any questions you might have. In order to maintain a safe environment for our caregivers, [facility] requires any animals or weapons present in the home be located in a secured location. Our clinicians will call you the night before or the morning of the appointment. Their # may come up restricted but they'll leave a VM for you. In case you have any questions or concerns in the meantime, our # is [phone], option 5 Thank you for your time [...] Pure hypercholesterolemi (more content not included)... Normal [facility] CONSULT PROGon 09-11-2022 CONSULT PROG HNO ID: [id number] Author: Parris Welsh MD Service: General Internal [...] 11, 2022 TIME: 8:57 AM PAGER: Normal [facility] THERAPY NTon 09-11-2022 THERAPY NT HNO ID: [id number] Author: Vamshi Castellon OT/L Service: ? 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 [facility] THERAPY NT HNO ID: [id number] Author: Lynette Persaud PT Service: Physical Therapy Author Type: Physical Therapist Type: Therapy (PT/OT/Speech/Resp) Filed: 09/11/2022 10:14 AM Note Text: Physical Therapy Treatment SERVICE DATE: 09/11/2022 SERVICE TIME: 834 to 924 ROOM: [id number] Recommended Discharge Disposition: Home PT Recommended Discharge [...] stance. Stairs Curb Step Car Transfer Blank basurto indicate activity not attempted Gait Deviations Right Lower Extremity: Heel strike during initial stance decreased, Push off during terminal stanc (more content not included)... Normal [facility] ALLIED HEALTHon 09-10-2022 ALLIED HEALTH HNO ID: [id number] Author: Chaplain Earle Service: Spiritual Care Author Type: Squeegee Finisher Type: Allied Health Filed: 09/10/2022 8:18 PM Note Text: SPIRITUAL CARE PROGRESS NOTE SERVICE DATE: 09/10/2022 SERVICE TIME: 6:00-6:01pm This washcloth folder stopped by the patient's room to provide spiritual care, but the patient did not desire it at the time. To contact the Spiritual Care Department: Please call [phone]. SIGNATURE: Chaplain Earle PATIENT NAME: Roberto Osborn SR DATE: September 10, 2022 TIME: 8:17 PM PAGER/CONTACT #: [phone] [facility] ALLIED HEALTH HNO ID: [id number] Author: GERMAINE Sparrow Service: Radiology Author Type: [...] GERMAINE Sparrow September 10, 2022 10:39 AM [facility] ANES POSTPROC EVALon 023 ANES POSTPROC EVAL HNO ID: [id number] Author: Adryan Payton MD Service: Anesthesiology Author Type: Anesthesiologist Type: Anesthesia Postprocedure Evaluation Filed: 09/10/2022 12:48 PM Note Text: POST ANESTHESIA EVALUATION NOTE : 1960 Procedure Summary Date: 09/10/22 Room / Location: TX OR / TX OR Anesthesia Start: 740 Anesthesia Stop: 1013 [...] September 10, 2022 TIME: 12:48 PM CSN: [id number] [facility] ANES PRE-OPon 09-10-2022 ANES PRE-OP HNO ID: [id number] Author: Adryan Payton MD Service: Anesthesiology Author Type: Anesthesiologist Type: Anesthesia Preprocedure Evaluation Filed: 09/10/2022 7:06 AM Note Text: ANESTHESIOLOGY DAY OF SURGERY NOTE : 1960 Procedure Information Date/Time: 09/10/22 0745 Procedure: ROBOTIC ASSISTED TOTAL KNEE ARTHROPLASTY (Right: Knee) Location: [place] OR / [place] OR Surgeons: Chika Carpenter MD Estimated body [...] September 10, 2022 TIME: 7:04 AM CSN: [id number] [facility] BRIEF OP NOTon 09-10-2022 BRIEF OP NOT HNO ID: [id number] Author: Chika Carpenter MD Service: Orthopaedic Surgery Author Type: Physician Type: Brief Op Note Filed: 09/11/2022 7:52 AM Note Text: TOTAL KNEE ARTHROPLASTY BRIEF OPERATIVE / PROCEDURE NOTE LOG ID: [id number] Surgery/Procedure Date: 09/10/2022 Incision/Procedure Start Time: 8:19 AM Incision Close/Procedure End Time: 10:05 AM Surgeon(s)/Proceduralis t(s) and Ui Designer(s): Surgeon(s) and Role: * Chika Carpenter MD - Primary Nurse Practitioner: Indio De Oliveira APRN.SPOOL CARRIER Physician Ui Designer: Anahi Seay PA-C; Regla Higgins PA-C Procedure(s): [...] Implant Name Type Inv. Item Serial No. Business Process Coordinator Lot No. LRB No. Used Action COMPONENT TRITANIUM 35MM METAL 10MM PATELLAR ASYMMETRIC KNEE - [id number] Joint - Knee COMPONENT TRITANIUM 35MM METAL 10MM PATELLAR ASYMMETRIC KNEE [facility] [id number] Right 1 Implanted INSERT TRIATHLON 6 9MM TIBIAL BEARING CONDYLAR STABILIZE STERILE KNEE - [id number] Joint - Knee INSERT TRIATHLON 6 9MM TIBIAL BEARING CONDYLAR STABILIZE STERILE KNEE [facility] [id number] Right 1 Implanted BASEPLATE TRIATHLON 6 TRITANIUM [id number] TIBIAL 4 CRUCIFORM PEG KEEL KNEE - [id number] Joint - Knee BASEPLATE TRIATHLON 6 TRITANIUM [id number] TIBIAL 4 CRUCIFORM PEG KEEL KNEE [facility] [id number] Right 1 Implanted COMPONENT TRIATHLON 5 PA FEMORAL CRUCIATE RETAIN BEAD KNEE RIGHT - [id number] Joint - Knee COMPONENT TRIATHLON 5 PA FEMORAL CRUCIATE RETAIN BEAD KNEE RIGHT [facility] [id number] Right 1 Implanted Bearing Surface: Fixed Fixation: Cementless SSI Risk Factors: DM Constraint: Cruciate Retaining Other: None Pre-Op/Pre-Procedure Diagnosis: Primary osteoarthritis of right knee [M17.11] Post-Op/Post-Procedure Diagnosis: Primary osteoarthritis of right knee [M17.11] Weight Bearing Status: Weight Bearing As Tolerated SIGNATURE: Chika Carpenter MD PATIENT NAME: Roberto Osborn DATE: September 10, 2022 TIME: 10:01 AM [facility] CONSULTon 09-10-2022 CONSULT HNO ID: [id number] Author: Parris Welsh MD Service: General Internal [...] leg swel (more content not included)... Normal [facility] CT KNEE WO IVCON RTon 2022 CT KNEE WO IVCON RT * * *Final Report* * * DATE OF EXAM: Sep 10 2022 6:57AM [facility] 0084 - CT KNEE WO IVCON RT / PROCEDURE REASON: M17.11-Primary osteoarthritis of right knee * * * * Physician Interpretation * * * * EXAMINATION: CT KNEE WO IVCON RT CLINICAL HISTORY: 62 years old Male with Primary osteoarthritis of right knee. WILMER Robotic total knee replacement [facility] CT TECHNIQUE: CT RIGHT knee without contrast [facility] protocol, knee 1 mm axial slices, [...] images for the purposes of presurgical planning. Movie Producer: ENOCH Transcribe Date/Time: Sep 11 2022 6:28P Dictated by : GERI FABIAN DO This examination was interpreted and the report reviewed and electronically signed by: GERI FABIAN DO on Sep 11 2022 6:35PM EST [id number] Normal [facility] Hematocrit Auto (Bld) [Volum e fraction]on 09-10-2022 Hematocrit (Bld) [Volume fraction] 36.0 % Low 39.0-51.0 [facility] Comment on above: Order Comment: Specelena grant Type: BLOOD SPECIMENOrdering Facility: [facility] Address: [address] [place], [place] [address] Performed By: #### 4 544-3, 718-7 ####[facility] LABORATORYCLIA [id number] [place] [id number] [facility] [place] Hgb Bld-mCncon 09-10-2022 Hemoglobin (Bld) [Mass/Vol] 12.1 g/dL Low 13.0-17.0 [facility] Comment on above: Order Comment: Specelena grant Type: BLOOD SPECIMENOrdering Facility: [facility] Address: [address] [place] [address] Performed By: #### 4 544-3, 718-7 ####[facility] LABORATORYCLIA [id number] [place] [id number] [place] NURSING PROGon 09-10-2022 NURSING PROG HNO ID: [id number] Author: Lorie Bolden RN Service: Nursing Author [...] completion of procedure. Report to Leonel Cary [facility] OPERATIVE NOon 09-10-2022 OPERATIVE NO HNO ID: [id number] Author: Chika Carpenter MD Service: Orthopaedic Surgery Author Type: Physician Type: Operative Report Filed: 09/11/2022 7:52 AM Note Text: [facility] OPERATIVE REPORT PATIENT NAME: Roberto Osborn SR CSN: [id number] LOG ID: [id number] Surgery Date: 09/10/2022 Surgeon(s) and Ui Designer(s): Surgeon(s) and Role: * Chika Carpenter MD - Primary- surgeon * Regla GARCIA -Board Certified Arts Therapist No qualified orthopedic resident available. The PA [...] the device, and deep closure. The PA /ELECTRICAL SYSTEMS DESIGN ENGINEER performed the closure of the subcutaneous tissue [...] Implant Name Type Inv. Item Serial No. Business Process Coordinator Lot No. LRB No. Used Action COMPONENT TRITANIUM 35MM METAL 10MM PATELLAR ASYMMETRIC KNEE - [id number] Joint - Knee COMPONENT TRITANIUM 35MM METAL 10MM PATELLAR ASYMMETRIC KNEE [facility] [id number] Right 1 Implanted INSERT TRIATHLON 6 9MM TIBIAL BEARING CONDYLAR STABILIZE STERILE KNEE - [id number] Joint - Knee INSERT TRIATHLON 6 9MM TIBIAL BEARING CONDYLAR STABILIZE STERILE KNEE [facility] [id number] Right 1 Implanted BASEPLATE TRIATHLON 6 TRITANIUM 38W65AM TIBIAL 4 CRUCIFORM PEG KEEL KNEE - [id number] Joint - Knee BASEPLATE TRIATHLON 6 TRITANIUM [id number] TIBIAL 4 CRUCIFORM PEG KEEL KNEE [facility] [id number] Right 1 Implanted COMPONENT TRIATHLON 5 PA FEMORAL CRUCIATE RETAIN BEAD KNEE RIGHT - [id number] Joint - Knee COMPONENT TRIATHLON 5 PA FEMORAL CRUCIATE RETAIN BEAD KNEE RIGHT [facility] [id number] Right 1 Implanted OPERATIVE INDICATIONS: [...] room; the p (more content not included)... [facility] SURGICAL PATHOLOGYon 023 CASE REPORT [facility] Comment on above: Order Comment: Speci men Type: TISSUE SPECIMENOrdering Facility: [facility] Address: [address] [place], [place] [address] Result Comment: Surg [facility] Pathology Report Case: [id number] Authorizing Provider: Chika Carpenter MD Collected: 09/10/2022 08:32 AM Ordering Location: [facility] Surgery Received: 09/10/2022 11:44 AM Pathologist: Timothy Dietz MD Specimen: KNEE ARTHROPLASTY RIGHT Performed By: #### S ####[facility] LABCLIA [id number] [address] CLINICAL HISTORY [facility] Comment on above: Order Comment: Emilyi men Type: TISSUE SPECIMENOrdering Facility: [facility] Address: [address] [place], [place] [address] Result Comment: Pre- op diagnosis: Primary osteoarthritis of right knee [M17.11] Performed By: #### S ####[facility] LABCLIA [id number] [address] FINAL DIAGNOSIS [facility] Comment on above: Order Comment: Speci men Type: TISSUE SPECIMENOrdering Facility: [facility] Address: [address] [place], [place] [address] Result Comment: Righ t knee, arthroplasty: - Degenerative joint disease. Performed By: #### S ####[facility] LABCLIA [id number] [address] [place] FINAL PERFORMING LAB [facility] Comment on above: Order Comment: Speci men Type: TISSUE SPECIMENOrdering Facility: [facility] Address: [address] [place] [address] Result Comment: Diag nostic interpretation performed at [place] [address] CLIA# [id number] Jet Pilot: Oscar Goodson M.D. Performed By: #### S ####[facility] LABIA [id number] [address] OF [facility] GROSS DESCRIPTION Normal [facility] Comment on above: Order Comment: Speci men Type: TISSUE SPECIMENOrdering Facility: [facility] Address: [address] [place] [address] Result Comment: A. K NEE ARTHROPLASTY RIGHT Received in formalin, labeled as right knee arthroplasty are multiple segments of bone that aggregate to approximately 13.0 x 10.4 x 2.6 cm. One portion is recognizable as the tibial plateau and demonstrates minimal eburnation and moderate cartilage roughening. Separate fragments consistent with femoral condyles also show evidence of cartilage eburnation and roughening. Dry Cell Assembly Supervisor sections are submitted as follows: A1 2 sections of condyles following decalcification A2 2 sections of tibial plateau following decalcification CG/MLG September 10, 2022 3:13 PM Gross examination performed at [facility], [address] [place] [address] Performed By: #### S ####[facility] LABIA [id number] [address] [place] THERAPY NTon 09-10-2022 THERAPY NT HNO ID: [id number] Author: Lynette Persaud, LORY Service: Physical Therapy Author Type: Physical Therapist Type: Therapy (PT/OT/Speech/Resp) Filed: 09/10/2022 4:21 PM Note Text: Physical Therapy Evaluation SERVICE DATE: 09/10/2022 SERVICE TIME: 1525 to 1603 ROOM: [id number] Recommended Discharge Disposition: Home PT Recommended Discharge [...] limited postural s (more content not included)... [facility] XR KNEE 2V AP/LAT RTon 09-10 [...] the joint placement without evidence of complication Movie Producer: ENOCH Transcribe Date/Time: Sep 10 2022 12:40P Dictated by : TRAY BARKER MD This examination was interpreted and the report reviewed and electronically signed by: TRAY BARKER MD on Sep 10 2022 12:42PM EST [id number] [facility] CNPN Telephone (ApptopiaMDNA) LAWROBERTO A ([id number]) 1960 M Date Time Provider Department 09/09/22 CHIKA CARPENTER During your visit today, we recorded the following information about you: Eda Bassmings [facility] 09/09/2022 1:25 PM Signed Patient had motion [...] suggestions on what to do? Eda Bassmings [facility] 09/09/2022 2:48 PM Signed The wilmer rep [...] knee [M17.11] Order(s):CT KNEE WO IVCON RT [[id number]] Order #: [id number] FUTURE CT KNEE WO IVCON RT [[id number]] Order #: [id number]. #:[id number] Prescriptions as of 02/12/2023 - acetaminophen (TYLENOL) [...] Status:Closed by EDA CASTELLANOS on 02/12/23 Normal [facility] CT KNEE WO IVCON RTon 2022 CT KNEE WO IVCON RT * * *Final Report* * * DATE OF EXAM: Sep 07 2022 8:29AM [facility] 0084 - CT KNEE WO IVCON RT / PROCEDURE REASON: multiple diagnoses * * * * Physician Interpretation * * * * EXAM: CT KNEE WO IVCON RT HISTORY: Primary osteoarthritis of right knee Preop testing TECHNIQUE: CT right knee without contrast ([facility] CT protocol) CT Radiation dose: Integrated Dose-length product (DLP) for this visit = 859 mGy*cm. CT Dose Reduction Employed: Automated exposure control(AEC) and iterative recon COMPARISON: FINDINGS: Osteoarthritis, most severe in the medial joint compartment. Joint effusion. No acute abnormality at the hip and ankle. There are bilateral fat-containing inguinal hernias. . IMPRESSION: Right knee osteoarthritis, preoperative [facility] CT protocol for robotic assisted total joint replacement. Movie Producer: [facility] Transcribe Date/Time: Sep 08 2022 12:39P Dictated by : JIHAN MIX MD This examination was interpreted and the report reviewed and electronically signed by: JIHAN MIX MD on Sep 08 2022 12:41PM EST [id number] Normal [facility] SARS-CoV-2 RNA Resp Ql MALACHI+p robeon 09-07-2022 SARS-CoV-2 (COVID-19) RNA MALACHI+probe Ql (Resp) COVID 19 RESULT: SARS-CoV-2 (Agent of COVID-19) Not Detected by RT-PCR or equivalent method. This test was developed and its performance characteristics determined by [facility] Regla Cheng [facility] Pathology and Laboratory Medicine [place]. This test has been authorized by FDA under an Emergency Use Authorization (EUA). This test has been validated in accordance with the FDA's Guidance Document Policy for Diagnostics Testing in Laboratories Certified to Perform High Complexity Testing under CLIA prior to Emergency use Authorization for Coronavirus Disease 2019 during the Public Health Emergency issued on October 09, 2019. Test performed by [facility] [place], [facility] [place] [address]. Normal [facility] Comment on above: Performed By: #### 9 4500-6 ####[facility] LABCLIA [id number] [place] [address] [place] SELF CHECK COVIDon 3 SARS-CoV-2 (COVID-19) RNA MALACHI+probe Ql (Resp) SARS-CoV-2 (Agent of COVID-19) Not Detected by RT-PCR or equivalent method. 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 #:[id number] Prescriptions as of 02/07/2023 - acetaminophen (TYLENOL) [...] by EDA CASTELLANOS on 02/07/23 Luis Daniel [facility] [place] 08-20-2022 KATIE Telephone (ME2E) ROBERTO OSBORN SR ([id number]) 1960 M Date Time Provider Department 08/20/22 CHIKA CARPENTER During your visit today, we recorded the following information about you: FILIBERTO Villalobos 08/20/2022 4:02 PM Signed TOTAL JOINT COMPLETE CARE PROGRAM PRE-OPERATIVE TEACHING Service Date: 08/20/2022 Service Time: 4:00 PM Date of : 1960 Gender: male Date of Surgery: 09/10/22 Procedure: Right Total Knee Replacement Complete 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 SIGNATURE: FILIBERTO Villalobos PATIENT NAME: Roberto Osborn [...] smoker [Z87.891] 08/16/2022 Encounter Status:Closed by RONY DYOLE on 08/20/22 Normal [facility] Basic metabolic 2000 panelon 08-16-2022 Anion gap [Moles/Vol] 11 mmol/L Normal 9-18 [facility] Comment on above: Order Comment: Speci men Type: BLOOD SPECIMENOrdering Facility: [facility] Address: [address] [place] [address] Performed By: #### 2 276-4, 07357-6, 21050-0 ####[facility]ORATORYCLIA [id number] [place] [address] [place] Calcium [Mass/Vol] 9.2 mg/dL Normal 8.5-10.2 [facility] Comment on above: Order Comment: Speci men Type: BLOOD SPECIMENOrdering Facility: [facility] Address: [address] [place] [address] Performed By: #### 2 276-4, 30869-9, 84607-7 ####[facility] LABORATORYCLIA [id number] [address] OF [facility] Chloride [Moles/Vol] 101 mmol/L Normal 97-105 [facility] Comment on above: Order Comment: Speci men Type: BLOOD SPECIMENOrdering Facility: [facility] Address: [address] [place] [address] Performed By: #### 2 276-4, 58357-2, 37879-5 ####[facility] LABORATORYCLIA [id number] [place] [address] [place] CO2 [Moles/Vol] 25 mmol/L Normal 22-30 [facility] Comment on above: Order Comment: Speci men Type: BLOOD SPECIMENOrdering Facility: [facility] Address: [address] [place] [address] Performed By: #### 2 276-4, 72063-6, 45012-8 ####[facility] LABORATORYCLIA [id number] [address] STATES OF [facility] Creatinine [Mass/Vol] 0.56 mg/dL Low 0.73-1.22 [facility] Comment on above: Order Comment: Speci men Type: BLOOD SPECIMENOrdering Facility: [facility] Address: [address] [place] [address] Performed By: #### 2 276-4, 00886-5, 74573-6 ####[facility] LABORATORYCLIA [id number] [address] OF [facility] ESTIMATED GLOMERULAR FILTRATION RATE 111 mL/min/1.73m??? Normal >=60 [facility] Comment on above: Order Comment: Speci men Type: BLOOD SPECIMENOrdering Facility: [facility] Address: [address] [place] [address] Result Comment: Snehal mated Glomerular Filtration Rate [...] actual GFR. Performed By: #### 2 276-4, 87537-6, 34143-0 ####[facility]ORATORYCLIA [id number] [place] [address] [place] Glucose [Mass/Vol] 140 mg/dL High 74-99 [facility] Comment on above: Order Comment: Vera grant Type: BLOOD SPECIMENOrdering Facility: [facility] Address: [address] [place], [place] [address] Result Comment: The [place] Diabetes Association (ADA) provides guidance for cutoff [...] Standards of Medical Care in Diabetes 2016, [place] [employer] Association. Diabetes Care. 2016.39(Suppl 1). Performed By: #### 2 276-4, 72713-1, 95062-4 ####[facility] LABORATORYCLIA [id number] [place] [id number] [place] Potassium [Moles/Vol] 4.3 mmol/L Normal 3.7-5.1 [facility] Comment on above: Order Comment: Vera [facility] Type: BLOOD SPECIMENOrdering Facility: [facility] Address: [address] [place] [address] Performed By: #### 2 276-4, 18515-0, 43231-7 ####[facility] LABORATORYCLIA [id number] [place] [address] [place] Sodium [Moles/Vol] 137 mmol/L Normal 136-144 [facility] Comment on above: Order Comment: Speci men Type: BLOOD SPECIMENOrdering Facility: [facility] Address: [address] [facility] [place] [address] Performed By: #### 2 276-4, 38971-1, 19689-9 ####[facility] LABORATORYCLIA [id number] [address] STATES [facility] Urea nitrogen [Mass/Vol] 12 mg/dL Normal 9-24 [facility] Comment on above: Order Comment: Speci men Type: BLOOD SPECIMENOrdering Facility: [facility] Address: [address] [place] [address] Performed By: #### 2 276-4, 53179-2, 38894-2 ####[facility] LABORATORYCLIA [id number] [address] [place] Anion gap [Moles/Vol] 11 mmol/L 9 - 18 mmol/L [facility] Calcium [Mass/Vol] 9.2 mg/dL 8.5 - 10. 2 mg/dL [facility] Chloride [Moles/Vol] 101 mmol/L 97 - 10 5 mmol/L [facility] CO2 [Moles/Vol] 25 mmol/L 22 - 30 mmol/L [facility] Creatinine [Mass/Vol] 0.56 mg/dL Low 0.73 - 1.22 mg/dL [facility] Estimated Glomerular Filtration Rate 111 mL/min/1.73m >=60 mL/min/1.73m [facility] Glucose [Mass/Vol] 140 mg/dL High 74 - 99 mg/dL [facility] Potassium [Moles/Vol] 4.3 mmol/L 3.7 - 5.1 mmol/L [facility] Sodium [Moles/Vol] 137 mmol/L 136 - 144 mmol/L [facility] Urea nitrogen [Mass/Vol] 12 mg/dL 9 - 24 mg/dL [facility] CBC W Auto Differential pane l (Bld)on 08-16-2022 Basophils (Bld) [#/Vol] 0.03 10*3/uL Normal <0.11 [facility] Comment on above: Order Comment: Speci men Type: BLOOD SPECIMENOrdering Facility: [facility] Address: [address] [place] [address] Performed By: #### 5 7021-8 ####[facility] LABORATORYCLIA [id number] [address] [place] Basophils/100 WBC (Bld) 0.3 % Normal [facility] Comment on above: Order Comment: Speci men Type: BLOOD SPECIMENOrdering Facility: [facility] Address: [address] [place] [address] Performed By: #### 5 7021-8 ####[facility] LABORATORYCLIA [id number] [place] [address] [place] Differential cell count method Nom (Bld) Auto Normal [facility] Comment on above: Order Comment: Speci men Type: BLOOD SPECIMENOrdering Facility: [facility] Address: [address] [place] [address] Performed By: #### 5 7021-8 ####[facility] LABORATORYCLIA [id number] [place] [address] [place] Eosinophils (Bld) [#/Vol] 0.07 10*3/uL Normal <0.46 [facility] Comment on above: Order Comment: Speci men Type: BLOOD SPECIMENOrdering Facility: [facility] Address: [address] [place] [address] Performed By: #### 5 7021-8 ####[facility] LABORATORYCLIA [id number] [address] Eosinophils/100 WBC (Bld) 0.7 % Normal [facility] Comment on above: Order Comment: Speci men Type: BLOOD SPECIMENOrdering Facility: [facility] Address: [address] [place] [address] Performed By: #### 5 7021-8 ####[facility] LABORATORYCLIA [id number] [address] [place] Erythrocyte distribution width (RBC) [Ratio] 14.3 % Normal 11.5-15.0 [facility] Comment on above: Order Comment: Speci men Type: BLOOD SPECIMENOrdering Facility: [facility] Address: [address] [place] [address] Performed By: #### 5 7021-8 ####[facility] LABORATORYCLIA [id number] [address] [place] Hematocrit (Bld) [Volume fraction] 39.9 % Normal 39.0-51.0 [facility] Comment on above: Order Comment: Speci men Type: BLOOD SPECIMENOrdering Facility: [facility] Address: [address] [place] [address] Performed By: #### 5 7021-8 ####[facility] LABORATORYCLIA [id number] [place] [address] [place] Hemoglobin (Bld) [Mass/Vol] 13.7 g/dL Normal 13.0-17.0 [facility] Comment on above: Order Comment: Speci men Type: BLOOD SPECIMENOrdering Facility: [facility] Address: [address] [place] [address] Performed By: #### 5 7021-8 ####[facility] LABORATORYCLIA [id number] [place] [address] [place] Immature granulocytes (Bld) [#/Vol] 0.05 10*3/uL Normal <0.10 [facility] Comment on above: Order Comment: Speci men Type: BLOOD SPECIMENOrdering Facility: [facility] Address: [address] [place] [address] Performed By: #### 5 7021-8 ####[facility] LABORATORYCLIA [id number] [address] [place] Immature granulocytes/100 WBC (Bld) 0.5 % Normal [facility] Comment on above: Order Comment: Speci men Type: BLOOD SPECIMENOrdering Facility: [facility] Address: [address] [place] [address] Performed By: #### 5 7021-8 ####[facility] LABORATORYCLIA [id number] [place] [address] [place] Lymphocytes (Bld) [#/Vol] 1.14 10*3/uL Normal 1.00-4.00 [facility] Comment on above: Order Comment: Speci men Type: BLOOD SPECIMENOrdering Facility: [facility] Address: [address] [place] [address] Performed By: #### 5 7021-8 ####[facility] LABORATORYCLIA [id number] [address] Lymphocytes/100 WBC (Bld) 10.7 % Normal [facility] Comment on above: Order Comment: Speci men Type: BLOOD SPECIMENOrdering Facility: [facility] Address: [address] [place] [address] Performed By: #### 5 7021-8 ####[facility] LABORATORYCLIA [id number] [address] MCH (RBC) [Entitic mass] 30.7 pg Normal 26.0-34.0 [facility] Comment on above: Order Comment: Speci men Type: BLOOD SPECIMENOrdering Facility: [facility] Address: [address] [place] [address] Performed By: #### 5 7021-8 ####[facility] LABORATORYCLIA [id number] [address] MCHC (RBC) [Mass/Vol] 34.3 g/dL Normal 30.5-36.0 [facility] Comment on above: Order Comment: Speci men Type: BLOOD SPECIMENOrdering Facility: [facility] Address: [address] [place] [address] Performed By: #### 5 7021-8 ####[facility] LABORATORYCLIA [id number] [address] MCV (RBC) [Entitic vol] 89.5 fL Normal 80.0-100.0 [facility] Comment on above: Order Comment: Speci men Type: BLOOD SPECIMENOrdering Facility: [facility] Address: [address] [place] [address] Performed By: #### 5 7021-8 ####[facility] LABORATORYCLIA [id number] [address] Monocytes (Bld) [#/Vol] 0.60 10*3/uL Normal <0.87 [facility] Comment on above: Order Comment: Speci men Type: BLOOD SPECIMENOrdering Facility: [facility] Address: [address] [place] [address] Performed By: #### 5 7021-8 ####[facility] LABORATORYCLIA [id number] [place] [address] [place] Monocytes/100 WBC (Bld) 5.6 % Normal [facility] Comment on above: Order Comment: Speci men Type: BLOOD SPECIMENOrdering Facility: [facility] Address: [address] [place] [address] Performed By: #### 5 7021-8 ####[facility] LABORATORYCLIA [id number] [place] [address] [place] Neutrophils (Bld) [#/Vol] 8.74 10*3/uL High 1.45-7.50 [facility] Comment on above: Order Comment: Speci men Type: BLOOD SPECIMENOrdering Facility: [facility] Address: [address] [place] [address] Performed By: #### 5 7021-8 ####[facility] LABORATORYCLIA [id number] [place] [address] [place] Neutrophils/100 WBC (Bld) 82.2 % Normal [facility] Comment on above: Order Comment: Speci men Type: BLOOD SPECIMENOrdering Facility: [facility] Address: [address] [place] [address] Performed By: #### 5 7021-8 ####[facility] LABORATORYCLIA [id number] [place] [address] [place] Nucleated RBC (Bld) [#/Vol] 10*3/uL Normal <0.01 [facility] Comment on above: Order Comment: Speci men Type: BLOOD SPECIMENOrdering Facility: [facility] Address: [address] [place] [address] Performed By: #### 5 7021-8 ####[facility] LABORATORYCLIA [id number] [place] [address] [place] Nucleated RBC/100 WBC (Bld) [Ratio] 0.0 /100 WBC Normal [facility] Comment on above: Order Comment: Speci men Type: BLOOD SPECIMENOrdering Facility: [facility] Address: [address] [place] [address] Performed By: #### 5 7021-8 ####[facility] LABORATORYCLIA [id number] [place] [address] [place] Platelet mean volume (Bld) [Entitic vol] 9.0 fL Normal 9.0-12.7 [facility] Comment on above: Order Comment: Speci men Type: BLOOD SPECIMENOrdering Facility: [facility] Address: [address] [place] [address] Performed By: #### 5 7021-8 ####[facility] LABORATORYCLIA [id number] [place] [address] [place] Platelets (Bld) [#/Vol] 314 10*3/uL Normal 150-400 [facility] Comment on above: Order Comment: Speci men Type: BLOOD SPECIMENOrdering Facility: [facility] Address: [address] [place] [address] Performed By: #### 5 7021-8 ####[facility] LABORATORYCLIA [id number] [place] [address] [place] RBC (Bld) [#/Vol] 4.46 10*6/uL Normal 4.20-6.00 [facility] Comment on above: Order Comment: Speci men Type: BLOOD SPECIMENOrdering Facility: [facility] Address: [address] [place] [address] Performed By: #### 5 7021-8 ####[facility] LABORATORYCLIA [id number] [place] [address] [place] WBC (Bld) [#/Vol] 10.63 10*3/uL Normal 3.70-11.00 [facility] Comment on above: Order Comment: Speci men Type: BLOOD SPECIMENOrdering Facility: [facility] Address: [address] [place] [address] Performed By: #### 5 7021-8 ####[facility] LABORATORYCLIA [id number] [place] [address] [place] Basophils (Bld) [#/Vol] 0.03 10*3/uL <0.11 k/uL [facility] Basophils/100 WBC (Bld) 0.3 % [facility] Differential cell count method Nom (Bld) [facility] Eosinophils (Bld) [#/Vol] 0.07 10*3/uL <0.46 k/uL [facility] Eosinophils/100 WBC (Bld) 0.7 % [facility] Erythrocyte distribution width (RBC) [Ratio] 14.3 % 11.5 - 15.0 % [facility] Hematocrit (Bld) [Volume fraction] 39.9 % 39.0 - 51.0 % [facility] Hemoglobin (Bld) [Mass/Vol] 13.7 g/dL 13.0 - 17.0 g/dL [facility] Immature granulocytes (Bld) [#/Vol] 0.05 10*3/uL <0.10 k/uL [facility] Immature granulocytes/100 WBC (Bld) 0.5 % [facility] Lymphocytes (Bld) [#/Vol] 1.14 10*3/uL 1.00 - 4.00 k/uL [facility] Lymphocytes/100 WBC (Bld) 10.7 % [facility] MCH (RBC) [Entitic mass] 30.7 pg 26.0 - 34.0 pg [facility] MCHC (RBC) [Mass/Vol] 34.3 g/dL 30.5 - 36.0 g/dL [facility] MCV (RBC) [Entitic vol] 89.5 fL 80.0 - 100.0 fL [facility] Monocytes (Bld) [#/Vol] 0.60 10*3/uL <0.87 k/uL [facility] Monocytes/100 WBC (Bld) 5.6 % [facility] Neutrophils (Bld) [#/Vol] 8.74 10*3/uL High 1.45 - 7.50 k/uL [facility] Neutrophils/100 WBC (Bld) 82.2 % [facility] Nucleated RBC (Bld) [#/Vol] <0.01 k/uL [facility] Nucleated RBC/100 WBC (Bld) [Ratio] 0.0 /100 WBC [facility] Platelet mean volume (Bld) [Entitic vol] 9.0 fL 9.0 - 12.7 fL [facility] Platelets (Bld) [#/Vol] 314 10*3/uL 150 - 400 k/uL [facility] RBC (Bld) [#/Vol] 4.46 10*6/uL 4.20 - 6.0 0 m/uL [facility] WBC (Bld) [#/Vol] 10.63 10*3/uL 3.70 - 11 .00 k/uL [facility] ECG COMPLETEon 08-16-2022 Atrial Rate 77 BPM [facility] Calculated P Offerman 57 degrees [facility] Calculated R Offerman -3 degrees [facility] Calculated T Offerman 30 degrees [facility] P-R Interval 172 ms [facility] QRS Duration 98 ms [facility] QT Interval 378 ms [facility] QTC Calculation (Bazett) 427 ms [facility] Ventricular Rate 77 BPM [facility] [id number] 08-16-2022 ECG01 Ventricular Rate : 7 7 BPM Atrial Rate : 77 BPM P-R Interval : 172 ms QRS Duration : 98 ms Q-T Interval : 378 ms QTC Calculation(Bazett) : 427 ms Calculated P Offerman : 57 degrees Calculated R Offerman : -3 degrees Calculated T Offerman : 30 degrees NORMAL SINUS RHYTHM NORMAL ECG WHEN COMPARED WITH ECG OF 29-JUL-2014 08:31, NO SIGNIFICANT CHANGE WAS FOUND Confirmed by ELIJAH BURNS M.D. ([id number]) on 08/16/2022 2:14:14 PM NAME : ROBERTO OSBORN PID : [id number] : 1960 Gender : Male Race : ORD : [id number] Procedure Date : Aug 16 2022 08:49:58 Edit Date : Aug 16 2022 14:14:15 Diagnosis: NORMAL SINUS RHYTHM NORMAL ECG WHEN COMPARED WITH ECG OF 29-JUL-2014 08:31, NO SIGNIFICANT CHANGE WAS FOUND Confirmed by ELIJAH BURNS M.D. ([id number]) on 08/16/2022 2:14:14 PM Test Reason : Location : 10 : [facility]/ Overread By : ELIJAH BURNS M.D. Edited By : ELIJAH BURNS M.D. Referred By : YANET BOYLE Acquired by : EL [facility] FERRITIN BLDon 08-16-2022 Ferritin [Mass/Vol] 138.0 ng/mL 30.3 - 5 65.7 ng/mL [facility] Ferritin SerPl-mCncon 01-06- 2023 Ferritin [Mass/Vol] 138.0 ng/mL Normal 30.3-565.7 [facility] Comment on above: Order Comment: Vera grant Type: BLOOD SPECIMENOrdering Facility: [facility] Address: [address] [place] [address] Performed By: #### 2 276-4, 90090-0, 14092-8 ####[place] [facility] [id number] [address] OF [facility] HbA1c (Bld)on 08-16-2022 Average glucose Estimated from glycated hemoglobin (Bld) [Mass/Vol] 131 mg/dL [facility] HbA1c (Bld) [Mass fraction] 6.2 % High 4.3 - 5.6 % [facility] Average glucose Estimated from glycated hemoglobin (Bld) [Mass/Vol] 131 mg/dL Normal [facility] Comment on above: Order Comment: Vera grant Type: BLOOD SPECIMENOrdering Facility: [facility] Address: [address] [place] [address] Result Comment: eAG: (Estimated average glucose) is a calculated value from HgbA1c and is parts representative of the average blood glucose level in the last 2-3 month period. Performed By: #### 5 5454-3 ####[facility] LABCLIA [id number] [address] STATES OF [facility] HbA1c (Bld) [Mass fraction] 6.2 % High 4.3-5.6 [facility] Comment on above: Order Comment: Vera grant Type: BLOOD SPECIMENOrdering Facility: [facility] Address: [address] [place] [address] Result Comment: Amer [place] Diabetes Association guidelines indicate that patients with HgbA1c in the range 5.7-6.4% are at increased risk for development of diabetes, and intervention by lifestyle modification may be beneficial. HgbA1c greater or equal to 6.5% is considered diagnostic of diabetes. Performed By: #### 5 5454-3 ####[facility] LABCLIA [id number] [address] OF [facility] Iron and Iron binding capaci ty panelon 08-16-2022 Iron [Mass/Vol] 151 ug/dL Normal 41-186 [facility] Comment on above: Order Comment: Speci men Type: BLOOD SPECIMENOrdering Facility: [facility] Address: [place] [address] Performed By: #### 2 276-4, 50455-1, 65184-7 ####[place] [facility]ORYCL[facility] [id number] [address] Iron binding capacity [Mass/Vol] 338 ug/dL Normal 232-386 [facility] Comment on above: Order Comment: Speci men Type: BLOOD SPECIMENOrdering Facility: [facility] Address: [address] [place] [address] Performed By: #### 2 276-4, 72623-2, 98121-8 ####[place] [facility]ORYCLIA [id number] [address] Iron/TIBC [Molar ratio] 44.7 % Normal 15.0-57.0 [facility] Comment on above: Order Comment: Speci men Type: BLOOD SPECIMENOrdering Facility: [facility] Address: [address] [place] [address] Performed By: #### 2 276-4, 42136-2, 27864-8 ####[place] [facility]ORYCLIA [id number] [address] Iron [Mass/Vol] 151 ug/dL 41 - 186 ug/dL [facility] Iron binding capacity [Mass/Vol] 338 ug/dL 232 - 386 ug/dL [facility] Iron/TIBC [Molar ratio] 44.7 % 15.0 - 57.0 % [facility] TYPE AND SCREEN,30 DAYon ABO O Normal [facility] Comment on above: Order Comment: Speci men Type: BLOOD SPECIMENOrdering Facility: [facility] Address: [address] [place] [address] Performed By: #### T SCR30 ####[place] [facility] BANKCLIA [id number] [address] HISTORICAL AB SCR STATUS Negative Normal [facility] Comment on above: Order Comment: Speci men Type: BLOOD SPECIMENOrdering Facility: [facility] Address: [address] [place] [address] Performed By: #### T SCR30 ####[place] [facility] BANKCLIA [id number] [place] [address] [facility] Rh Nom (Bld) Positive Normal [facility] Comment on above: Order Comment: Speci men Type: BLOOD SPECIMENOrdering Facility: [facility] Address: [address] Performed By: #### T SCR30 ####[place] B[facility] BANKIA [id number] [address] [place] ABO O [facility] HIstorical Ab Scr Status Negative [facility] Rh Nom (Bld) Positive [facility] HISTORY PHYSICALon HISTORY PHYSICAL HNO ID: [id number] Author: Yanet Boyle PA-C Service: ? Author Type: Physician Ui Designer Type: HANDP Filed: 08/16/2022 9:28 AM Note [...] manage symptoms. Procedure scheduled on 09/10/2022 at [place]. REVIEW OF SYSTEMS: General: No weight loss, malaise or fevers. Neurological: No history of TIA's, stroke, WATER COMMISSIONER tumor, impaired sensorium, hemiplegia, paraplegia or quadraplegia. [...] Yes umeclid (more content not included)... Normal [facility] XR Shoulder - right 2 Viewso n 08-06-2022 IMPRESSION: Degenerative changes as discussed Movie Producer: ENOCH Transcribe Date/Time: Aug 06 2022 12:49P Dictated by : ADAL RODRIGUEZ DO This examination was interpreted and the report reviewed and electronically signed by: ADAL RODRIGUEZ DO on Aug 06 2022 12:51PM [facility] * * *Final Report* * * [...] well-preserved. No fractures or dislocations are seen. [facility] Provider, Sunny Jiang - 08/06/2022 * [...] seen. IMPRESSION IMPRESSION: Degenerative changes as discussed Movie Producer: PSCMayra Transcribe Date/Time: Aug 06 2022 12:49P Dictated by : ADAL RODRIGUEZ DO This examination was interpreted and the report reviewed and electronically signed by: ADAL RODRIGUEZ DO on Aug 06 2022 12:51PM [facility] XR Shoulder - right 2 ViewsO rdered By: [facility] Provider on 08-06-2022 [facility] XR SHOULDER 2V AP/TRUE AP RT [...] are seen. IMPRESSION: Degenerative changes as discussed Movie Producer: ENOCH Transcribe Date/Time: Aug 06 2022 12:49P Dictated by : ADAL RODRIGUEZ DO This examination was interpreted and the report reviewed and electronically signed by: ADAL RODRIGUEZ DO on Aug 06 2022 12:51PM EST [id number] [facility] XR Shoulder - right 2 Viewso n 08-02-2022 Radiology Study observation (narrative) [facility] XR KNEE GENERAL 4V AP BOTH/P A BOTH/LAT/MERC BILATERALon 02-22-2022 [facility] CNPNon 05-02-2020 CNPN Telephone ([id number]) ROBERTO OSBORN SR ([id number]) 1960 M Date Time Provider Department 05/02/20 [place] [address] During your visit today, we recorded the following information about you: RT Ranjan, Tech 05/02/2020 1:03 PM Signed LMOM for patient to schedule 05/02. RT Izabella, Tech 05/02/2020 4:27 PM Signed Patient called back and stated he was going to call [facility] before scheduling. Jazmin Alcantara Allergies As [...] Status:Closed by JAZMIN ALCANTARA on 05/02/20 Normal [facility] CT Spine Lumbar w/o Contrast on 04-26-2020 CT Spine Lumbar w/o Contrast Patient Name: ROBERTO OSBORN CT Exam Date/Time 04/25/2020 09:20:[address] Spine Lumbar w/o Contrast Ordering Physician NESSA LIAO BRANDY M Accession Number [id number] CPT4 Codes 79895 () Reason For Exam RIGHT LEG WEAKNESS, [...] Transcribed Date and Time: 04/26/2020 9:58 Normal [facility] NM BONE SCAN WHOLE BODYon Patient Name: ROBERTO OSBORN ---Nuc Med--- Exam Date/Time 04/25/2020 13:03:31 EDT Exam NM Bone Imaging Whole Body Ordering Physician NESSA LIAO BRANDY M Accession Number [id number] CPT4 Codes 73702 () Reason For Exam low back pain [...] R Transcribed Date and Time: 04/25/2020 1:54 [place], [place] [facility] Results From [facility] - 04/25/2020 1:54 PM EDT Patient Name: ROBERTO OSBORN ---Nuc Med--- Exam Date/Time 04/25/2020 13:03:31 EDT Exam NM Bone Imaging Whole Body Ordering Physician NESSA LIAO BRANDY M Accession Number [id number] CPT4 Codes 01042 () Reason For Exam low back pain [...] R Transcribed Date and Time: 04/25/2020 1:54 [place], [place] NM Bone Imaging Whole Bodyon 04-25-2020 NM Bone Imaging Whole Body Patient Name: ROBERTO OSBORN Nuc Med Exam Date/Time 04/25/2020 13:03:31 EDT Exam NM Bone Imaging Whole Body Ordering Physician NESSA LIAO BRANDY M Accession Number [id number] CPT4 Codes 36962 () Reason For Exam low back pain [...] Transcribed Date and Time: 04/25/2020 1:54 Normal [facility] US Lower Extremity Venous Ri danii 03-27-2020 [facility] -- Right Lower Extremity Venous Duplex Report Ordering Physician: Awidla Vivas Pediatric Dental Hygienist: Steph Abraham RDMS, T Interpreting Physician: Marti Valles -- Location: [facility] -- Indications: Pain right thigh. -- Preliminary [...] Images were obtained using a Nancy i700 [employer] vascular ultrasound machine. -- Venous flow and [...] electronically signed by Marti Valles 03/27/2020 17:43 [facility] [place], [place] Tim, [facility] Cardiology Results From [facility] - 03/27/2020 5:44 PM EDT [facility] -- Right Lower Extremity Venous Duplex Report Ordering Physician: Awilda Vivas Pediatric Dental Hygienist: Steph Abraham RDMS RVT Interpreting Physician: Marti Valles -- Location: [facility] [place] -- Indications: Pain right thigh. [...] supine position. Images were obtained using a Filer i700 [employer] vascular ultrasound machine. -- Venous [...] electronically signed by Marti Valles 03/27/2020 17:43 [place], [place] VL Venous Duplex US Lower Ex t Casey 03-27-2020 VL Venous Duplex US Lower Ext Right Patient Name: ROBERTO OSBORN Ultrasound Exam Date/Time 03/27/2020 16:45:00 EDT Exam VL Venous Duplex US Lower Ext Right Ordering Physician AWILDA VIVAS Accession Number [id number] CPT4 Codes 41561 () Reason For Exam pain of thigh of right lower extremity Report [facility] -- Right Lower Extremity Venous Duplex Report Ordering Physician: Awilda Vivas Pediatric Dental Hygienist: Steph Abraham RDAZ, T Interpreting Physician: Marti Valles -- Location: [facility] -- Indications: Pain right thigh. -- Preliminary [...] supine position. Images were obtained using a View3 i700 [employer] vascular ultrasound machine. -- Venous flow and [...] 03/27/2020 5:43 pm Signed by: MARTI VALLES [facility] MRI Spine Lumbar w/ + w/o Co ntraston 03-24-2020 MRI Spine Lumbar w/ + w/o Contrast Patient Name: ROBERTO OSBORN MRI Exam Date/Time 03/22/2020 13:59:28 EDT Exam MRI Spine Lumbar w/ + w/o Contrast Ordering Physician NESSA LIAO BRANDY M Accession Number [id number] CPT4 Codes 93317 () Reason For Exam stenosis with neurogenic [...] Transcribed Date and Time: 03/24/2020 9:24 Normal [facility] CBC Auto Differentialon 04- Absolute Baso # 0.1 10*3/uL 0 - 0.2 10*3/uL [facility], [place] Comment on above: Test Performed by [facility], [address] [place] [address], [place] [address] Absolute Neut # 3.7 10*3/uL 1.8 - 7 10*3/uL [place], [place] Comment on above: Test Performed by [facility], [address] [place] [address] Interpretation and review of laboratory results Abnormal [place], [place] Test Performed by [facility], [address] [place] [address] [place], [place] CT HEAD WO CONTRASTon 2019 Patient Name: ROBERTO OSBORN ---CT--- Exam Date/Time 11/27/2019 04:15:[address] Head or Brain w/o Contrast Ordering Physician MD KRISTIAN, TRAY Costello Accession Number [id number] CPT4 Codes 36082 () Reason For Exam left hand numbness [...] WILLIAM Transcribed Date and Time: 11/27/2019 4:25 [place] Tim, [facility] Results From [facility] - 11/27/2019 4:28 AM EDT Patient Name: ROBERTO OSBORN ---CT--- Exam Date/Time 11/27/2019 04:15:[address] Head or Brain w/o Contrast Ordering Physician MD TOWNSEND MARK D Accession Number [id number] CPT4 Codes 22190 () Reason For Exam left hand numbness [...] WILLIAM Transcribed Date and Time: 11/27/2019 4:25 [place] CT Head or Brain w/o Contras ton 11-27-2019 CT Head or Brain w/o Contrast Patient Name: ROBERTO OSBORN CT Exam Date/Time 11/27/2019 04:15:[address] Head or Brain w/o Contrast Ordering Physician MD KRISTIAN, TRAY Costello Accession Number [id number] CPT4 Codes 02960 () Reason For Exam left hand numbness [...] WILLIAM Transcribed Date and Time: 11/27/2019 4:25 [facility] Comp Panel with Mg Reflexon 11-27-2019 ALP [Catalytic activity/Vol] 67 U/L Normal 38-126 [facility] Comment on above: Performed By: #### H EMDHugo CMP3M, TROPN #### [place] [id number] [place] [address] ALT [Catalytic activity/Vol] 20 U/L Normal 0-49 [facility] Comment on above: Result Comment: The ALT test is performed by an updated assay method. Please note that the reference intervals have been changed and are now sex specific. Performed By: #### H EMDF, CMP3M, TROPN #### [address] [place] [address] AST [Catalytic activity/Vol] 27 U/L Normal 15-46 [facility] Comment on above: Performed By: #### H EMDF, CMP3M, TROPN #### [address] [place] [address] Calcium [Mass/Vol] 8.7 mg/dL Normal 8.4-10.4 [facility] Comment on above: Performed By: #### H EMDF, CMP3M, TROPN #### [address] [place] [address] Glucose [Mass/Vol] 147 mg/dL High 70-100 [facility] Comment on above: Performed By: #### H EMDF, CMP3M, TROPN #### [address] [place] [address] Urea nitrogen [Mass/Vol] 6 mg/dL Low 7-20 [facility] Comment on above: Performed By: #### H EMDF, CMP3M, TROPN #### [address] [place] [address] Anion gap [Moles/Vol] 9 Normal [facility] Comment on above: Performed By: #### H EMDF, CMP3M, TROPN #### [place] [address] [place] [address] Bilirubin [Mass/Vol] 0.6 mg/dL Normal 0.2-1.3 [facility] Comment on above: Performed By: #### H EMDF, CMP3M, TROPN #### [address] [address] CO2 [Moles/Vol] 25 mmol/L Normal 22-30 [facility] Comment on above: Performed By: #### H MISTY [place]3M, TROPN #### [address] [address] Creatinine [Mass/Vol] 0.57 mg/dL Normal 0.52-1.25 [facility] Comment on above: Performed By: #### H MISTY [place]3M, TROPN #### [address] [address] GFR/1.73 sq M predicted among blacks MDRD (S/P/Bld) [Vol rate/Area] mL/min/{1.73_m2} Normal >60 [facility] Comment on above: Performed By: #### H MISTY [place]3M, TROPN #### [address] [address] GFR/1.73 sq M predicted among non-blacks MDRD (S/P/Bld) [Vol rate/Area] mL/min/{1.73_m2} Normal >60 [facility] Comment on above: Result Comment: Sour ce- MDRD equation with creatinine calibration to IDMS(NKDEP) eGFR not recommended for drug dose adjustment Performed By: #### H MISTY [place]3M, TROPN #### [address] [address] Protein [Mass/Vol] 6.8 g/dL Normal 6.3-8.2 [facility] Comment on above: Performed By: #### H GE CMP3M, TROPN #### [address] [address] Albumin [Mass/Vol] 4.0 g/dL Normal 3.5-5.0 [facility] Comment on above: Performed By: #### H GE CMP3M, TROPN #### [address] [address] Chloride [Moles/Vol] 102 mmol/L Normal 98-107 [facility] Comment on above: Performed By: #### H EMDF, CMP3M, TROPN #### [address] [address] Potassium [Moles/Vol] 3.7 mmol/L Normal 3.5-5.1 [place], [place] Comment on above: Test Performed by [facility], [address] [place] [address] Performed By: #### H EMDF, CMP3M, TROPN #### [address] [address] Sodium [Moles/Vol] 136 mmol/L Normal 135-145 [place] Comment on above: Performed By: #### H EMDF, CMP3M, TROPN #### [address] [address] Comprehensive Metabolic Pane l w/ Reflex to MGon 11-27-2019 Albumin [Mass/Vol] 4.0 g/dL 3.5 - 5 g/dL [place], [place] Comment on above: Test Performed by [facility], [address] [place] [address] ALP [Catalytic activity/Vol] 67 U/L 38 - 126 U/L [place], [place] Comment on above: Test Performed by [facility], [address] [place] [address] ALT [Catalytic activity/Vol] 20 U/L 0 - 49 U/L [place] Comment on above: Test Performed by [facility], [address] [place] [address] The ALT test is performed by an updated assay method. Please note that the reference intervals have been changed and are now sex specific. Anion gap [Moles/Vol] 9 mmol/L [place], [place] Comment on above: Test Performed by [facility], [address] [place] [address] AST [Catalytic activity/Vol] 27 U/L 15 - 46 U/L [place] Comment on above: Test Performed by [facility], [address] [place] [address] Bilirubin Ql (U) 0.6 mg/dL 0.2 - 1.3 mg/dL [place], [place] Comment on above: Test Performed by [address] [address] Calcium [Mass/Vol] 8.7 mg/dL 8.4 - 10. 4 mg/dL [place], [place] Comment on above: Test Performed by [facility], [address] [place] [address] Chloride [Moles/Vol] 102 mmol/L 98 - 10 7 mmol/L [place] Comment on above: Test Performed by [facility], [address] [place] [address] CO2 [Moles/Vol] 25 mmol/L 22 - 30 mmol/L [place], [place] Comment on above: Test Performed by [facility], [address] [place] [address] Creatinine [Mass/Vol] 0.57 mg/dL 0.52 - 1.25 mg/dL [place], [place] Comment on above: Test Performed by [facility], [address] [place] [address] EGFR IF NonAfrican [place]i >60.0 >60 mL/min [place] Comment on above: Test Performed by [facility], [address] [place] [address] Source- MDRD equation with creatinine calibration to IDMS(NKDEP) eGFR not recommended for drug dose adjustment GFR/1.73 sq M predicted among blacks MDRD (S/P/Bld) [Vol rate/Area] mL/min/{1.73_m2} >60 mL/min [place] Comment on above: Test Performed by [facility], [address] [place] [address] Glucose [Mass/Vol] 147 mg/dL High 70 - 100 mg/dL [place], [place] Comment on above: Test Performed by [facility], [address] [place] [address] Interpretation and review of laboratory results Abnormal [place] Protein [Mass/Vol] 6.8 g/dL 6.3 - 8.2 g/dL [place] Comment on above: Test Performed by [facility], [address] [place] [address] Urea nitrogen [Mass/Vol] 6 mg/dL Low 7 - 20 mg/dL [place], [place] Comment on above: Test Performed by [facility], [address] [place] [address] Test Performed by [facility], [address] [place] [address] [place], [place] Hemogram w/ Autodiffon 11-26 Abs Baso Cnt 0.1 10*3/uL Normal 0.0-0.2 [facility] Comment on above: Performed By: #### H EMDF, CMP3M, TROPN #### [address] [address] Abs Neutrophile Cnt 3.7 10*3/uL Normal 1.8-7.0 [facility] Comment on above: Performed By: #### H EMDF, CMP3M, TROPN #### [address] [address] Basophils/100 WBC (Bld) 0.7 % Normal 0.0-2.0 [place] Comment on above: Test Performed by [facility], [address] [place] [address] Performed By: #### H EMDF, CMP3M, TROPN #### [address] [address] Eosinophils (Bld) [#/Vol] 0.2 10*3/uL Normal 0.0-0.5 [place] Comment on above: Test Performed by [facility], [address] [place] [address] Performed By: #### H EMDF, CMP3M, TROPN #### [address] [address] Eosinophils/100 WBC (Bld) 3.2 % Normal 1.0-6.0 [place], [place] Comment on above: Test Performed by [facility], [address] [place] [address] Performed By: #### H EMDF, CMP3M, TROPN #### [address] [address] Erythrocyte distribution width (RBC) [Ratio] 13.3 % Normal 11.5-14.5 [place], [place] Comment on above: Test Performed by [facility], [address] [place] [address], [place] [address] Performed By: #### H EMDF, CMP3M, TROPN #### [address] [place] [address] Granulocytes/100 WBC (Bld) 48.4 % Normal 40.0-80.0 [place] Comment on above: Test Performed by [facility], [address] [place] [address], [place] [address] Performed By: #### H EMDF, CMP3M, TROPN #### [address] [place] [address] Hematocrit (Bld) [Volume fraction] 43.8 % Normal 40.0-52.0 [place] Comment on above: Test Performed by [facility], [address] [place] [address], [place] [address] Performed By: #### H EMDF, CMP3M, TROPN #### [address] [address] Hemoglobin (Bld) [Mass/Vol] 14.4 g/dL Normal 13.0-18.0 [place] Comment on above: Test Performed by [facility], [address] [place] [address] Performed By: #### H EMDF, CMP3M, TROPN #### [address] [place] [address] Lymphocytes (Bld) [#/Vol] 2.7 10*3/uL Normal 1.0-4.3 [place] Comment on above: Test Performed by [facility], [address] [place] [address], [place] [address] Performed By: #### H EMDF, CMP3M, TROPN #### [address] [place] [address] Lymphocytes/100 WBC (Bld) 35.2 % Normal 20.0-40.0 [place], [place] Comment on above: Test Performed by [facility], [address] [place] [address] Performed By: #### H EMDF, CMP3M, TROPN #### [address] [place] [address] MCH (RBC) [Entitic mass] 29.1 pg Normal 26.0-34.0 [place], [place] Comment on above: Test Performed by [facility], [address] [place] [id number] Performed By: #### H EMDF, CMP3M, TROPN #### [address] [address] MCHC (RBC) [Mass/Vol] 33.0 % Normal 32.0-36.0 [place], [place] Comment on above: Test Performed by [facility], [address] [place] [address] Performed By: #### H EMDF, CMP3M, TROPN #### [address] [address] MCV (RBC) [Entitic vol] 88.2 fL Normal 80.0-98.0 [place], [place] Comment on above: Test Performed by [facility], [address] [place] [address] Performed By: #### H EMDF, CMP3M, TROPN #### [address] [address] Monocytes (Bld) [#/Vol] 1.0 10*3/uL High 0.0-0.8 [place], [place] Comment on above: Test Performed by [facility], [address] [place] [address] Performed By: #### H EMDF, CMP3M, TROPN #### [address] [address] Monocytes/100 WBC (Bld) 12.5 % High 2.0-10.0 [place], [place] Comment on above: Test Performed by [facility], [address] [place] [address] Performed By: #### H EMDF, CMP3M, TROPN #### [address] [address] Platelet mean volume (Bld) [Entitic vol] 6.9 fL Low 7.4-10.4 [place], [place] Comment on above: Test Performed by [facility], [address] [place] [address] Performed By: #### H EMDF, CMP3M, TROPN #### [address] [address] Platelets (Bld) [#/Vol] 355 10*3/uL Normal 140-440 [place], [place] Comment on above: Test Performed by [facility], [address] [place] [address] Performed By: #### H EMDF, CMP3M, TROPN #### [address] [address] RBC (Bld) [#/Vol] 4.97 10*6/uL Normal 4.40-5.90 [place] Comment on above: Test Performed by [facility], [address] [place] [address] Performed By: #### H EMDF, CMP3M, TROPN #### [address] [address] WBC (Bld) [#/Vol] 7.7 10*3/uL Normal 3.6-10.7 [place] Comment on above: Performed By: #### H EMDF, CMP3M, TROPN #### [address] [address] Troponinon 11-27-2019 Troponin I.cardiac [Mass/Vol] ng/mL 0 - 0.034 ng/mL [place] Comment on above: . Test Performed by [facility], [address] [place] [address] [place] Troponin Ion 11-27-2019 Troponin I.cardiac [Mass/Vol] ng/mL Normal 0.000-0.034 [facility] Comment on above: Result Comment: . Performed By: #### H EMDF, CMP3M, TROPN #### [address] [address] No Panel Information [facility] Vital Signs Date Time Vital Sign Value Performing Clinician Facility 09-06-2024 11:22-0500 Diastolic blood pressure 72 mm[Hg] Timothy Correa MD Work Phone: [facility] 09-06-2024 11:22-0500 Systolic blood pressure 126 mm[Hg] Timothy Correa MD Work Phone: [facility] 09-06-2024 11:17-0500 Body height 180.3 cm Timothy Correa MD Work Phone: [facility] 09-06-2024 11:17-0500 Body mass index (BMI) [Ratio] 34.61 kg/m2 Timothy Correa MD Work Phone: [facility] 09-06-2024 11:17-0500 Body temperature 98.2 [degF] Timothy Correa MD Work Phone: [facility] 09-06-2024 11:17-0500 Body weight 112.55 kg Timothy Correa MD Work Phone: [facility] 09-06-2024 11:17-0500 Heart rate 76 /min Timothy Correa MD Work Phone: [facility] 09-06-2024 11:17-0500 Respiratory rate 16 /min Timothy Correa MD Work Phone: [facility] 09-06-2024 11:17-0500 SaO2% (BldA) [Mass fraction] 97 % Timothy Correa MD Work Phone: [facility] 12-16-2023 08:17-0400 Body temperature 98.01 [degF] Timothy Correa MD Work Phone: [facility] 12-16-2023 08:17-0400 Diastolic blood pressure 75 mm[Hg] Timothy Correa MD Work Phone: [facility] 12-16-2023 08:17-0400 Heart rate 100 /min Timothy Correa MD Work Phone: [facility] 12-16-2023 08:17-0400 Respiratory rate 16 /min Timothy Correa MD Work Phone: [facility] 12-16-2023 08:17-0400 Systolic blood pressure 135 mm[Hg] Timothy Correa MD Work Phone: [facility] 10-06-2023 08:50-0500 Body temperature 98.01 [degF] Timothy [...] 88 /min Timothy Correa MD Work Phone: [facility] 04-24-2023 13:14-0400 Respiratory rate 16 /min Timothy Correa MD Work Phone: [facility] 04-24-2023 13:14-0400 SaO2% (BldA) [Mass fraction] 97 % Timothy Correa MD Work Phone: [facility] 04-24-2023 13:14-0400 Systolic blood pressure 125 mm[Hg] Timothy Correa MD Work Phone: [facility] 10-03-2022 08:26-0500 Body temperature 98.01 [degF] Timothy Correa MD Work Phone: [facility] 10-03-2022 08:26-0500 Diastolic blood pressure 61 mm[Hg] Timothy Correa MD Work Phone: [facility] 10-03-2022 08:26-0500 Heart rate 96 /min Timothy Correa MD Work Phone: [facility] 10-03-2022 08:26-0500 Respiratory rate 16 /min Timothy Correa MD Work Phone: [facility] 10-03-2022 08:26-0500 SaO2% (BldA) [Mass fraction] 96 % Timothy Correa MD Work Phone: [facility] 10-03-2022 08:26-0500 Systolic blood pressure 119 mm[Hg] Timothy Correa MD Work Phone: [facility] 09-30-2022 09:09-0500 Body temperature 97.59 [degF] Kirill Noe PT Work Phone: [facility] 09-30-2022 09:09-0500 Diastolic blood pressure 70 mm[Hg] Kirill Noe PT Work Phone: [facility] 09-30-2022 09:09-0500 Heart rate 93 /min Kirill Noe PT Work Phone: [facility] 09-30-2022 09:09-0500 SaO2% (BldA) [Mass fraction] 97 % Kirill Noe PT Work Phone: [facility] 09-30-2022 09:09-0500 Systolic blood pressure 130 mm[Hg] Kirill Noe PT Work Phone: [facility] 09-26-2022 10:19-0500 Body temperature 98.8 [degF] Kirill Noe PT Work Phone: [facility] 09-26-2022 10:19-0500 Diastolic blood pressure 80 mm[Hg] Kirill Noe PT Work Phone: [facility] 09-26-2022 10:19-0500 Heart rate 88 /min Kirill Noe PT Work Phone: [facility] 09-26-2022 10:19-0500 SaO2% (BldA) [Mass fraction] 97 % Kirill Susjunoewicz PT Work Phone: [facility] 09-26-2022 10:19-0500 Systolic blood pressure 136 mm[Hg] Kirill Suskiewicz PT Work Phone: [facility] 09-23-2022 08:59-0500 Body temperature 98.1 [degF] Kirill Suskiewicz PT Work Phone: [facility] 09-23-2022 08:59-0500 Diastolic blood pressure 70 mm[Hg] Kirill Suskiewicz PT Work Phone: [facility] 09-23-2022 08:59-0500 Heart rate 77 /min Kirill Suskiewicz PT Work Phone: [facility] 09-23-2022 08:59-0500 SaO2% (BldA) [Mass fraction] 98 % Kirill Suskiewicz PT Work Phone: [facility] 09-23-2022 08:59-0500 Systolic blood pressure 138 mm[Hg] Kirill Suskiewicz PT Work Phone: [facility] 09-20-2022 08:59-0500 Body temperature 98.49 [degF] Kirill Suskiewicz PT Work Phone: [facility] 09-20-2022 08:59-0500 Diastolic blood pressure 62 mm[Hg] Kirill Suskiewicz PT Work Phone: [facility] 09-20-2022 08:59-0500 Heart rate 88 /min Kirill Suskiewicz PT Work Phone: [facility] 09-20-2022 08:59-0500 SaO2% (BldA) [Mass fraction] 97 % Kirill Suskiewicz PT Work Phone: [facility] 09-20-2022 08:59-0500 Systolic blood pressure 130 mm[Hg] Kirill Suskiewicz PT Work Phone: [facility] 09-18-2022 09:14-0500 Body temperature 98.8 [degF] Kirill Suskiewicz PT Work Phone: [facility] 09-18-2022 09:14-0500 Diastolic blood pressure 70 mm[Hg] Kirill Suskiewicz PT Work Phone: [facility] 09-18-2022 09:14-0500 Heart rate 80 /min Kirill Suskiewicz PT Work Phone: [facility] 09-18-2022 09:14-0500 SaO2% (BldA) [Mass fraction] 98 % Kirill Suskiewicz PT Work Phone: [facility] 09-18-2022 09:14-0500 Systolic blood pressure 120 mm[Hg] Kirill Suskiewicz PT Work Phone: [facility] 09-16-2022 11:10-0500 Body temperature 98.29 [degF] Kirill Suskiewicz PT Work Phone: [facility] 09-16-2022 11:10-0500 Diastolic blood pressure 70 mm[Hg] Kirill Suskiewicz PT Work Phone: [facility] 09-16-2022 11:10-0500 Heart rate 84 /min Kirill Suskiewicz PT Work Phone: [facility] 09-16-2022 11:10-0500 SaO2% (BldA) [Mass fraction] 96 % Kirill Suskiewicz PT Work Phone: [facility] 09-16-2022 11:10-0500 Systolic blood pressure 128 mm[Hg] Kirill Suskiewicz PT Work Phone: [facility] 09-12-2022 11:03-0500 Diastolic blood pressure 64 mm[Hg] Kirill Suskiewicz PT Work Phone: [facility] 09-12-2022 11:03-0500 Heart rate 90 /min Kirill Suskiewicz PT Work Phone: [facility] 09-12-2022 11:03-0500 SaO2% (BldA) [Mass fraction] 94 % Kirill Noe PT Work Phone: [facility] 09-12-2022 11:03-0500 Systolic blood pressure 118 mm[Hg] Kirill Noe PT Work Phone: [facility] 09-12-2022 10:16-0500 Body temperature 99 [degF] Kirill Noe PT Work Phone: [facility] 08-16-2022 08:45-0500 Body height 177.8 cm Pacc 2 Work Phone: [facility] 08-16-2022 08:45-0500 Body temperature 97.5 [degF] Pacc 2 Work Phone: [facility] 08-16-2022 08:45-0500 Body weight 104.33 kg Pacc 2 Work Phone: [facility] 08-16-2022 08:45-0500 Diastolic blood pressure 93 mm[Hg] Pacc 2 Work Phone: [facility] 08-16-2022 08:45-0500 Heart rate 83 /min Pacc 2 Work Phone: [facility] 08-16-2022 08:45-0500 Respiratory rate 18 /min Pacc 2 Work Phone: [facility] 08-16-2022 08:45-0500 SaO2% (BldA) [Mass fraction] 97 % Pacc 2 Work Phone: [facility] 08-16-2022 08:45-0500 Systolic blood pressure 132 mm[Hg] Pacc 2 Work Phone: [facility] 02-22-2022 13:15-0400 Body weight 105.23 kg Chika Carpenter MD Work Phone: [facility] 11-27-2019 04:50-0400 BP Diastolic 78 mm[Hg] Tray Townsend [place], [place] 11-27-2019 04:50-0400 BP Systolic 148 mm[Hg] Tray Gutierrez [facility] , [place] 11-27-2019 04:50-0400 Pulse (Heart Rate) 80 /min Tray Gutierrez [facility], [place] 11-27-2019 04:50-0400 Pulse Oximetry 97 % Tray Gutierrez [facility] , [place] 11-27-2019 04:50-0400 Respiratory Rate 16 /min [facility] [place] 11-27-2019 03:34-0400 BMI (Body Mass Index) 33.72 kg/m2 Tray Gutierrez [facility], [place] 11-27-2019 03:34-0400 Body Temperature 97.7 [degF] [facility] [place] 11-27-2019 03:34-0400 Body weight 106.59 kg Tray Gutierrez [facility] , [place] 11-27-2019 03:34-0400 Height 177.8 cm Tray Gutierrez [facility] , [place] Encounters Encounter Date Encounter Type Care Provider Facility Start: 01-11-2025 End: 01-11-2025 ambulatory Timothy Correa MD Work Phone: [facility] Comment on above: [place] Start: 01-11-2025 End: 01-11-2025 E-mail encounter from caregiver Timothy Correa MD Work Phone: [facility] Start: 10-18-2024 End: 10-18-2024 ambulatory UNKNOWN PROVIDER Facility:[facility] Start: 10-14-2024 ambulatory UNKNOWN PROVIDER Facili ty:[facility] Start: 09-15-2024 End: 09-15-2024 Refill Timothy Correa MD Work Phone: [facility] Comment on above: Refill Start: 09-10-2024 End: 09-10-2024 ambulatory Timothy Correa Facility:[facility] Start: 09-07-2024 End: 09-07-2024 Telephone encounter Shy Oliver MA [facility] Comment on above: Outside Medical Miguel rds Received Start: 09-06-2024 End: 09-06-2024 Office outpatient visit 15 minutes Timothy Correa MD Work Phone: [facility] Comment on above: LLQ abdominal mass ( Primary Dx); Body mass index (BMI) 34.0-34.9, adult Start: 09-06-2024 End: 09-06-2024 ambulatory UNKNOWN PROVIDER Facility:[facility] Start: 08-19-2024 ambulatory UNKNOWN PROVIDER Facili ty:[facility] Start: 08-16-2024 End: 08-17-2024 Refill Timothy Correa MD Work Phone: [facility] Comment on above: Refill Start: 08-16-2024 End: 10-31-2024 ambulatory TIMOTHY CORREA Facility:[facility] Start: 06-14-2024 End: 06-14-2024 ambulatory Adryan Pitt [facility] Start: 12-19-2023 Telephone encounter Hilaryizzy Mooreck [facility] Comment on above: Discuss results test /procedures; Reference 99 Start: 12-16-2023 End: 12-16-2023 Office outpatient visit 15 minutes Timothy Correa MD Work Phone: [facility] Comment on above: Left leg swelling (P rimary Dx) Start: 10-24-2023 Telephone encounter Timothy Correa MD Other Phone: [facility] Comment on above: Question about medic ation Start: 10-07-2023 Orders Only Timothy Correa MD Other Phone: [facility] Start: 10-06-2023 End: 10-06-2023 Patient encounter procedure Timothy Correa MD Other Phone: [facility] Work Phone: Start: 10-06-2023 End: 10-06-2023 Periodic preventive med est patient 40-64yrs Timothy Correa MD Other Phone: [facility] Comment on above: Annual physical exam (Primary Dx); B12 deficiency; Vitamin D deficiency; Type 2 diabetes mellitus without complication, without long-term current use of insulin (HCC); Encounter for long-term (current) use of medications; Pure hypercholesterolemia; Screening for malignant neoplasm of prostate; Essential hypertension, benign; Colon cancer screening Start: 09-24-2023 End: 09-24-2023 Emergency department patient visit TIMOTHY CORREA Facility:[facility] Start: 09-22-2023 Refill Timothy Correa MD Work Phone: [facility] Comment on above: Refill Start: 09-01-2023 Telephone encounter Timothy Coronado [facility] Start: 07-18-2023 End: 07-18-2023 ambulatory UNKNOWN PROVIDER Facility:[facility] Start: 07-18-2023 End: 07-18-2023 Subsequent hospital visit by physician Radio Sanchez [place] Work Phone: Radiology Comment on above: Pain in left hip [M2 5.552] Start: 06-16-2023 Telephone encounter Chika Carpenter MD Work Phone: Orthopaedics Comment on above: Appointment Start: 06-13-2023 ambulatory Chika spence MD Work Phone: Orthopaedics Comment on above: Mobic non effective Start: 06-08-2023 Letter encounter Timothy Correa MD Work Phone: [facility] Start: 05-30-2023 End: 05-30-2023 ambulatory CHIKA CARPENTER Facility:[facility] Start: 05-30-2023 End: 05-30-2023 Patient encounter procedure Chika Carpenter MD Work Phone: Orthopaedics Comment on above: Pain due to internal orthopedic prosthetic devices, implants and grafts, initial encounter (HCC) (Primary Dx) Start: 05-23-2023 ambulatory Regla Higgins PA-C Work Phone: Orthopaedics Comment on above: bone scan Start: 05-23-2023 E-mail encounter fro m caregiver Regla Higgins PA-C Work Phone: [facility] Start: 05-23-2023 End: 05-23-2023 Subsequent hospital visit by physician Mfi Toño [facility] 1 Work Phone: Molecular Imaging Comment on above: Pain due to internal orthopedic prosthetic devices, implants and grafts, initial encounter (HCC) [T84.84XA] Start: 05-23-2023 End: 05-23-2023 Subsequent hospital visit by physician [facility] Toño [facility] 1 Work Phone: Molecular Imaging Comment on above: Pain due to internal orthopedic prosthetic devices, implants and grafts, initial encounter (HCC) [T84.84XA] Start: 05-20-2023 Telephone encounter Chika Carpenter MD Work Phone: Orthopaedics Comment on above: Appointment Start: 05-16-2023 End: 05-16-2023 ambulatory UNKNOWN PROVIDER Facility:[facility] Start: 05-16-2023 End: 05-16-2023 Office outpatient visit 15 minutes Regla Higgins PA-C Work Phone: Orthopaedics Comment on above: Pain due to internal orthopedic prosthetic devices, implants and grafts, initial encounter (HCC) (Primary Dx); S/P total knee replacement using cement, left; 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) Start: 05-16-2023 End: 05-16-2023 Subsequent hospital visit by physician [facility] [place] Work Phone: Radiology Comment on above: Status post total le ft knee replacement [Z96.652] Start: 05-14-2023 Orders Only Regla Higgins PA-C Work Phone: Orthopaedics Comment on above: Status post total le ft knee replacement (Primary Dx) Start: 04-24-2023 End: 04-24-2023 Office outpatient visit 15 minutes Timothy Correa MD Work Phone: [facility] Comment on above: Myalgia (Primary Dx) ; B12 deficiency; Vitamin D deficiency Start: 03-26-2023 Refill Timothy Correa MD Work Phone: [facility] Comment on above: Refill Start: 12-06-2022 End: 12-06-2022 ambulatory CHIKA CARPENTER Facility:[facility] Start: 12-06-2022 End: 12-06-2022 Patient encounter procedure Chika Carpenter MD Work Phone: Orthopaedics Comment on above: Aftercare following right knee joint replacement surgery (Primary Dx) Start: 11-19-2022 Telephone encounter Chkia Carpenter MD Work Phone: [facility] [place] Comment on above: Patient Question Start: 11-18-2022 ambulatory Chika spence MD Work Phone: Orthopaedics Comment on above: Return to work form Start: 11-18-2022 E-mail encounter fro m caregiver Chika Carpenter MD Work Phone: [facility] Start: 11-08-2022 Telephone encounter Chika Carpenter MD Work Phone: Orthopaedics Comment on above: Letter Start: 11-06-2022 End: 11-06-2022 ambulatory Tre Go PT, DPT Work Phone: [facility] Comment on above: Chronic pain of righ t knee (Primary Dx) Start: 10-30-2022 End: 10-30-2022 ambulatory Tre Go PT, DPT Work Phone: [facility] Comment on above: Chronic pain of righ t knee (Primary Dx) Start: 10-28-2022 End: 10-28-2022 ambulatory Toy [facility] Comment on above: Chronic pain of righ t knee (Primary Dx) Start: 10-25-2022 End: 10-25-2022 ambulatory TIMOTHY CHINO Facility:[facility] Start: 10-25-2022 End: 10-25-2022 Patient encounter procedure Chika Carpenter MD Work Phone: Orthopaedics Comment on above: Aftercare following right knee joint replacement surgery (Primary Dx) Start: 10-24-2022 End: 10-24-2022 ambulatory Tre Go PT, DPT Work Phone: [facility] Comment on above: Chronic pain of righ t knee (Primary Dx) Start: 10-21-2022 End: 10-21-2022 ambulatory UNKNOWN PROVIDER Facility:[facility] Start: 10-21-2022 End: 10-21-2022 ambulatory [facility] Comment on above: Chronic pain of righ t knee (Primary Dx) Start: 10-16-2022 End: 10-16-2022 ambulatory Tre Go PT, DPT Work Phone: [facility] Comment on above: Chronic pain of righ t knee (Primary Dx) Start: 10-15-2022 Telephone encounter Chika Carpenter MD Work Phone: Orthopaedics Comment on above: Appointment Start: 10-14-2022 End: 10-14-2022 ambulatory [facility] Comment on above: Chronic pain of righ t knee (Primary Dx) Start: 10-10-2022 End: 10-10-2022 ambulatory UNKNOWN PROVIDER Facility:[facility] Start: 10-10-2022 End: 10-10-2022 ambulatory Ava Keita PT Work Phone: [facility] Comment on above: Chronic pain of righ t knee (Primary Dx); S/P total knee arthroplasty, right Start: 10-09-2022 Orders Only Timothy Correa MD Work Phone: [facility] Start: 10-07-2022 ambulatory Chika spence MD Work Phone: Orthopaedics Comment on above: Physical therapy Start: 10-03-2022 Telephone encounter Serina Pinto [facility] Comment on above: Discuss results of e xam, other provider Start: 10-03-2022 End: 10-03-2022 Patient encounter procedure Timothy Correa MD Work Phone: [facility] Start: 10-03-2022 End: 10-03-2022 Periodic preventive med est patient 40-64yrs Timothy Correa MD Work Phone: [facility] Comment on above: Annual physical exam (Primary Dx); Vitamin D deficiency; B12 deficiency; Essential hypertension, benign; Type 2 diabetes mellitus without complication, without long-term current use of insulin (HCC); Encounter for long-term (current) use of medications; Pure hypercholesterolemia; Screening for malignant neoplasm of prostate; Need for hepatitis C screening test Start: 10-02-2022 End: 10-02-2022 ambulatory UNKNOWN PROVIDER Facility:[facility] Start: 10-02-2022 End: 10-02-2022 ambulatory Tre Go PT, DPT Work Phone: [facility] Comment on above: Pain in right hip; Chronic pain of right knee Start: 09-30-2022 End: 09-30-2022 Home visit Kirill Noe PT Work Phone: [facility] Comment on above: PT AGENCY DC W VISIT Start: 09-26-2022 End: 09-26-2022 Home visit Kirill Noe PT Work Phone: [facility] Comment on above: PT ROUTINE Start: 09-25-2022 End: 09-25-2022 ambulatory UNKNOWN PROVIDER Facility:[facility] Start: 09-25-2022 End: 09-25-2022 Patient encounter procedure Matthieu Esparza PA-C Work Phone: Orthopaedics Comment on above: S/P total knee arthr oplasty, right (Primary Dx) Start: 09-25-2022 End: 09-25-2022 Subsequent hospital visit by physician Radio Sanchez [facility] Work Phone: Radiology Comment on above: Right knee pain, uns pecified chronicity [M25.561] Start: 09-23-2022 End: 09-23-2022 Home visit Kirill Noe PT Work Phone: [facility] Comment on above: PT ROUTINE Start: 09-20-2022 End: 09-20-2022 Home visit Kirill Noe PT Work Phone: [facility] Comment on above: PT ROUTINE Start: 09-18-2022 End: 09-18-2022 Home visit Kirill Noe PT Work Phone: [facility] Comment on above: PT ROUTINE Start: 09-16-2022 End: 09-16-2022 Home visit Kirill Noe PT Work Phone: [facility] Comment on above: PT ROUTINE Start: 09-14-2022 End: 09-14-2022 Home visit Trupti Bar [employer] Work Phone: [facility] Comment on above: [employer] UNMADE VISIT Start: 09-14-2022 Telephone encounter Trupti Montgomery on [employer] Work Phone: [facility] Comment on above: Home Care (Unmade PT visit ) Start: 09-12-2022 Telephone encounter Chika Carpenter MD Work Phone: [address] Comment on above: Patient Update Start: 09-12-2022 End: 09-12-2022 Home visit Kirill Noe PT Work Phone: [facility] Comment on above: PT SOC Start: 09-11-2022 Telephone encounter Sanaz MOBLEY S [facility] Comment on above: Home Care (Confirmat ion call) Start: 09-10-2022 Letter encounter Timothy Correa MD Work Phone: [facility] Start: 09-10-2022 End: 09-11-2022 ambulatory UNKNOWN PROVIDER Facility:[facility] Start: 09-10-2022 End: 09-10-2022 Subsequent hospital visit by physician [facility] Comment on above: Primary osteoarthrit is of right knee [M17.11] Start: 09-09-2022 Telephone encounter Chika Carpenter MD Work Phone: Orthopaedics Comment on above: Appointment Start: 09-07-2022 ambulatory UNKNOWN PROVIDER Facili ty:[facility] Start: 09-07-2022 Encounter for other preprocedural examination UNKNOWN PROVIDER [facility] Start: 09-07-2022 End: 09-07-2022 Patient encounter status [facility] Start: 09-07-2022 End: 09-07-2022 Subsequent hospital visit by physician [facility] Radiology Comment on above: Primary osteoarthrit is of right knee [M17.11] Start: 09-04-2022 ambulatory Chika spence MD Work Phone: Orthopaedics Comment on above: Forms Start: 09-04-2022 E-mail encounter danny m caregiver Chika Carpenter MD Work Phone: [facility] Start: 09-03-2022 Telephone encounter Chika Carpenter MD Work Phone: Orthopaedics Comment on above: Forms Start: 08-26-2022 Refill Timothy Correa MD Work Phone: [facility] Comment on above: Refill Start: 08-22-2022 Patient encounter status Zechariah Carpenter MD Work Phone: Orthopaedics Start: 08-22-2022 Telephone encounter Chika Carpenter MD Work Phone: Orthopaedics Comment on above: Orders Start: 08-20-2022 Telephone encounter Chika Carpenter MD Work Phone: [address] Comment on above: Pre-Op Teaching Start: 08-16-2022 End: 08-17-2022 ambulatory UNKNOWN PROVIDER Facility:[facility] Start: 08-16-2022 Encounter for other preprocedural examination UNKNOWN PROVIDER [facility] Start: 08-16-2022 End: 08-16-2022 Admission to establishment [place] [address] Work Phone: [facility] Start: 08-16-2022 End: 08-16-2022 ambulatory [place] [address] Work Phone: Pre Anesthesia Comment on above: [...] Anesthesia Start: 08-02-2022 ambulatory UNKNOWN PROVIDER Facili ty:[facility] Start: 08-02-2022 End: 08-02-2022 Patient encounter procedure Chika Carpenter MD Work Phone: Orthopaedics Comment on above: 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 (Primary Dx) Start: 08-02-2022 End: 08-02-2022 Subsequent hospital visit by physician Radio Sanchez [facility] Work Phone: Radiology Comment on above: Right shoulder pain, unspecified chronicity [M25.511] Start: 07-29-2022 Refill Timothy Correa MD Work Phone: [facility] Comment on above: Refill Start: 07-19-2022 End: [...] knee (Primary Dx) Start: 04-18-2022 Orders Only Timothy Correa MD Work Phone: [facility] Start: 03-04-2022 ambulatory Chika spence MD Work [...] 11-15-2021 ambulatory Kusum barraza RN Work Phone: [facility] Care Management/Patient Access Start: 11-15-2021 Coordination of care plan Kusum Reid RN Work Phone: [facility] Care Management/Patient Access Comment on above: Care Coordination; H ealt Maintenance Outreach; Medical Record Review Start: 04-25-2020 End: 04-25-2020 Subsequent hospital visit by physician Lena Liao Work Phone: [facility] Comment on above: Arrived Start: 03-27-2020 End: 03-27-2020 Subsequent hospital visit by physician Awilda Vivas Work Phone: [employer] Comment on above: Acute pain of right [...] above: Order Comment: The B josé manuel Korbel Access DxI Total???Prostate Specific Antigen???(PSA) method is [...] C H8, HEPATIC, HDL, PSA ####[facility] [id number] [place], [id number] Start: 10-06-2023 3 comp foot exam completed Timothy Correa MD Other Phone: Start: 07-18-2023 Radiologic examinati on knee 3 views Matthieu Esparza PA-C Work Phone: Start: 05-23-2023 Bone &/joint imaging 3 phase study Regla Higgins PA-C Work Phone: Start: 05-16-2023 Radiologic examinati on knee 3 views Regla Higgins PA-C Work Phone: Start: 04-24-2023 25 hydroxy includes fractions if performed Timothy Correa MD Work Phone: Start: 10-03-2022 3 comp foot exam completed Timothy Corrae MD Work Phone: Start: 09-25-2022 Radiologic examinati on knee 3 views Matthieu Esparza PA-C Work Phone: Start: 09-10-2022 Ct lower extremity w /o contrast material Matthieu Esparza PA-C Work Phone: Start: 09-07-2022 SELF CHECK COVID Matthieu Esparza PA-C Work Phone: Start: 08-16-2022 End: 08-16-2022 Antibody screen Pacc 2 Work Phone: Comment on above: Order Comment: Speci men Type: BLOOD SPECIMENOrdering Facility: [facility] Address: [place] [address] Performed By: #### T [id number] ####[facility] [id number] [place] [address] [place] Start: 08-02-2022 Arthrocentesis aspir [...] RSV Vaccine (1 - 1-dose 75+ series) [facility] Start: 2034 RSV vaccine (adult) (1 - 1-dose 75+ series) RSV vaccine (adult) (1 - 1-dose 75+ series) [facility] Start: 10-02-2026 PROSTATE CANCER SCREENING DISCUSSION PROSTATE CANCER SCREENING DISCUSSION [facility] Start: 10-02-2026 Prostate specific antigen measurement Prostate Cancer Screening Discussion [facility] Start: 12-07-2025 DTaP/Tdap/Td vaccine (3 - Td) DTaP/Tdap/Td vaccine (3 - Td) [place], [place] Start: 12-07-2025 Tetanus vaccination [facility] Start: 12-07-2025 Urine microalbumin profile DTaP,Tdap,Td Vaccine (3 - Td or Tdap) [facility] Start: 10-18-2025 Diabetic foot examination Foot [...] 10/07/2024 8:00 AM EST Office Visit [facility] [address] [place] [address] Timothy Correa MD [address] [place] [address] [facility] Start: 10-06-2024 Creatinine measurement Basic Metabolic Panel [facility] Start: 10-06-2024 Diabetic foot examination Foot Exam [facility] Start: 10-06-2024 Glaucoma screening Eye Exam [facility] Start: 10-06-2024 Lipid panel Lipid Profile [facility] Start: 10-06-2024 Prostate specific antigen measurement Prostate Cancer Screening (shared decision making) [facility] Start: 10-06-2024 Urine screening for protein [facility] Start: 09-24-2024 Creatinine measurement Basic Metabolic Panel [facility] Start: 08-19-2024 End: 08-19-2024 Professional / ancillary services management 08/19/2024 2:00 PM EST Ancillary Procedure [facility] [address] [place] [address] [facility] Start: 08-12-2024 Welcome to Medicare Visit (G0402) Welcome to Medicare Visit (G0402) [facility] Start: 04-11-2024 Covid-19 Vaccine ( season) Covid-19 Vaccine ( season) [facility] Start: 04-11-2024 Covid-19 Vaccine ( season) Covid-19 Vaccine ( season) [facility] Start: 04-11-2024 Influenza vaccination Influenza Vaccine (#1) [facility] Start: 04-05-2024 Hemoglobin A1c measurement Hemoglobin A1C [facility] Start: 2024 Abdominal aortic aneurysm screening Abdominal Aortic Aneurysm Imaging [facility] Start: 2024 Advance Directive Discussion Advance Directive Discussion [facility] Start: 2024 Pneumococcal vaccination Pneumococcal Vaccine(s) (2 of 2 - PPSV23) [facility] Start: 10-06-2023 End: 10-06-2023 Patient encounter procedure 10/06/2023 8:00 AM EST Office Visit [facility] [address] [place] [address] Timothy Correa MD [address] [place] [address] [facility] Start: 10-03-2023 Diabetic foot examination Foot Exam [facility] Start: 10-03-2023 Hepatitis B surface antibody level LDL CHOLESTEROL [facility] Start: 10-03-2023 Lipid panel Lipid Profile [facility] Start: 10-03-2023 Urine screening for protein Microalbumin [facility] Start: 09-18-2023 BP CONTROLLED (<130/80) BP CONTROLLED (<130/80) [facility] Start: 09-16-2023 BP CONTROLLED (<130/80) BP CONTROLLED (<130/80) [facility] Start: 09-12-2023 BP CONTROLLED (<130/80) BP CONTROLLED (<130/80) [facility] Start: 09-11-2023 Basic metabolic 2000 panel - Serum or Plasma Basic Metabolic Panel [facility] Start: 09-11-2023 Creatinine measurement Basic Metabolic Panel [facility] Start: 09-08-2023 End: 09-08-2023 Patient encounter procedure 09/08/2023 8:20 AM EST Office Visit [facility] [address] [place] [address] Timothy Correa MD [address] [place] [address] [facility] Start: 08-16-2023 Basic metabolic 2000 panel - Serum or Plasma Basic Metabolic Panel [facility] Start: 07-18-2023 PROSTATE CANCER SCREENING DISCUSSION PROSTATE CANCER SCREENING DISCUSSION [facility] Start: 05-11-2023 Influenza vaccination Influenza Vaccine (#1) [facility] Start: 04-11-2023 Covid-19 Vaccine () Covid-19 Vaccine () [facility] Start: 04-11-2023 Influenza vaccination [facility] Start: 02-13-2023 Hemoglobin A1c measurement [facility] Start: 02-13-2023 Hemoglobin A1c/Hemoglobin.total in Blood HBA1C [facility] Start: 11-07-2022 Diabetic retinal eye exam [facility] Start: 11-07-2022 Glaucoma screening Eye Exam [facility] Start: 10-03-2022 End: 10-03-2022 Patient encounter procedure 10/03/2022 Office Visit [facility] Timothy Correa MD [address] [place] [address] [facility] Start: 10-02-2022 Basic metabolic 2000 panel - Serum or Plasma Basic Metabolic Panel [facility] Start: 10-02-2022 Lipid panel Lipid Profile [facility] Start: 10-02-2022 Urine screening for protein Microalbumin [facility] Start: 08-29-2022 End: 08-29-2022 Patient encounter procedure 08/29/2022 Office Visit [facility] Timothy Correa MD [address] [place] [address] [facility] Start: 08-11-2022 DEPRESSION ASSESSMENT DEPRESSION ASSESSMENT [facility] Start: 06-28-2022 Diabetic foot examination Foot Exam [facility] Start: 05-11-2022 Influenza vaccination Influenza Vaccine (#1) [facility] Start: 04-11-2022 Influenza vaccination INFLUENZA (#1) [facility] Start: 04-01-2022 Hemoglobin A1c measurement Hemoglobin A1C [facility] Start: 01-23-2022 Diabetic retinal eye exam [facility] Start: 12-11-2021 COVID-19 Vaccine (3 - Booster for Moderna series) COVID-19 Vaccine (3 - Booster for Moderna series) [facility] Start: 09-07-2021 COVID-19 VACCINE (3 - Booster for Moderna series) COVID-19 VACCINE (3 - Booster for Moderna series) [facility] Start: 09-07-2021 COVID-19 Vaccine (3 - Moderna series) COVID-19 Vaccine (3 - Moderna series) [facility] Start: 08-11-2021 DEPRESSION ASSESSMENT DEPRESSION ASSESSMENT [facility] Start: 11-26-2020 Creatinine measurement Creatinine monitoring [facility] [place] Start: 11-26-2020 Potassium monitoring Potassium monitoring [place], [place] Start: 08-09-2020 [object Object] Diabetic foot exam [place] Start: 08-09-2020 A1C test (Diabetic or Prediabetic) A1C test (Diabetic or Prediabetic) [place] Start: 08-09-2020 Creatinine monitoring Creatinine monitoring [place], [place] Start: 08-09-2020 Diabetic foot examination Diabetic foot exam [place] Start: 08-09-2020 Diabetic microalbuminuria test Diabetic microalbuminuria test [place] Start: 08-09-2020 HbA1c (Bld) [Mass fraction] A1C test (Diabetic or Prediabetic) [place] Start: 08-09-2020 Lipid panel Lipid screen [place] Start: 08-09-2020 Lipid screen Lipid screen [place] Start: 08-09-2020 Potassium monitoring Potassium monitoring [place] Start: 04-11-2020 Influenza vaccination [place] Start: 07-18-2019 Diabetic retinal exam Diabetic retinal exam [place], [place] Start: 2019 Hepatitis B (HBV) Vaccine (optional start 60+ years) Hepatitis B (HBV) Vaccine (optional start 60+ years) [facility] Start: 2019 Hepatitis B Vaccine (1 of 3 - Risk 3-dose series) Hepatitis B Vaccine (1 of 3 - Risk 3-dose series) [facility] Start: 2019 RSV Vaccine (1 - 1-dose 60+ series) RSV Vaccine (1 - 1-dose 60+ series) [facility] Start: 2019 RSV vaccine (adult) (1 - Risk 60-74 years 1-dose series) RSV vaccine (adult) (1 - Risk 60-74 years 1-dose series) [facility] Start: 2019 RSV vaccine (optional 60+ years) RSV vaccine (optional 60+ years) [facility] Start: 01-16-2019 Hemoglobin A1c/Hemoglobin.total in Blood HBA1C [facility] Start: 03-22-2018 Pneumococcal vaccination [facility] Start: 03-22-2018 Pneumococcal Vaccine: 65+ (2 of 2 - PCV) Pneumococcal Vaccine: 65+ (2 of 2 - PCV) [facility] Start: 2009 Colon cancer screen colonoscopy Colon cancer screen colonoscopy [place], [place] Start: 2009 Measurement of occult blood in single stool specimen FIT [facility] Start: 2009 Screening for malignant neoplasm of colon [facility] Start: 2009 Shingles Vaccine (1 of 2) Shingles Vaccine (1 of 2) [place] Start: 2009 SHINGRIX VACCINE (1 of 2) SHINGRIX VACCINE (1 of 2) [facility] Start: 2009 Varicella-zoster vaccine (product) Shingles (RZV) Vaccine (1 of 2) [facility] Start: 2004 COLOGUARD (FIT-DNA) COLOGUARD (FIT-DNA) [facility] Start: 2004 Colonoscopy COLONOSCOPY [facility] Start: 2004 COLORECTAL CANCER SCREENING COLORECTAL CANCER SCREENING [facility] Start: [address] COLONOGRAPHY [facility] Start: 2004 FECAL OCCULT BLOOD FECAL OCCULT BLOOD [facility] Start: 2004 Screening for malignant neoplasm of colon [facility] Start: 2004 SIGMOIDOSCOPY SIGMOIDOSCOPY [facility] Start: 1978 Hepatitis A (HAV) Vaccine (optional start 19+ years) Hepatitis A (HAV) Vaccine (optional start 19+ years) [facility] Start: 1978 Urine microalbumin profile [facility] Start: 1977 ANNUAL PCP TEAM CHRONIC DISEASE VISIT ANNUAL PCP TEAM CHRONIC DISEASE VISIT [facility] Start: 1977 Anxiety Screening Anxiety Screening [facility] Start: 1977 BP CONTROLLED (<130/80) BP CONTROLLED (<130/80) [facility] Start: 1977 Depression Screening Depression Screening [facility] Start: 1977 Hepatitis B surface antibody level LDL CHOLESTEROL [facility] Start: 1977 Hepatitis C screening Hepatitis C Antibody [facility] Start: 1977 HEPATITIS C SCREENING HEPATITIS C SCREENING [facility] Start: 1977 HIV SCREENING HIV SCREENING [facility] Start: 1977 HIV screening HIV Screening [facility] Start: 1971 Adult depression screening assessment DEPRESSION SCREENING [facility] Start: 1969 3 comp foot exam completed DIABETIC FOOT EXAM [facility] Start: 1969 Diabetic foot examination Diabetic Foot Exam [facility] Start: 1969 Glaucoma screening Dilated Retinal Exam [facility] Start: 1969 Hepatitis B screening URINE ALBUMIN:CREATININE RATIO [facility] Start: 1969 Hepatitis C antibody, confirmatory test DILATED RETINAL EXAM [facility] Start: 1965 PNEUMOCOCCAL (1 - PCV) PNEUMOCOCCAL (1 - PCV) [facility] Start: 1965 Pneumococcal vaccination Pneumococcal Vaccine (1 - PCV) [facility] Start: 1959 Abdominal aortic aneurysm screening Abdominal Aortic Aneurysm Screening [facility] Start: 1959 Screening for malignant neoplasm of colon [facility] hydroxy includes fractions if performed VITAMIN D, 25-HYDROXY Lab Routine Vitamin D deficiency Ordered: 10/03/2022 [facility] Comment on above: Ordered: 10/03/2022 25 hydroxy includes fractions if performed VITAMIN D, 25-HYDROXY Lab Routine Vitamin D deficiency Ordered: 10/06/2023 [facility] [employer] Work Phone: Comment on above: Ordered: 10/06/2023 Assay of gammaglobul in iga igd igg igm each MICROALBUMIN, URINE Lab Routine Type 2 diabetes mellitus without complication, without long-term current use of insulin (HCC) Ordered: 10/03/2022 [facility] [employer] Work Phone: Comment on above: Ordered: 10/03/2022 Assay of gammaglobul in iga igd igg igm each MICROALBUMIN, URINE Lab Routine Type 2 diabetes mellitus without complication, without long-term current use of insulin (HCC) Ordered: 10/06/2023 [facility] [employer] Work Phone: Comment on above: Ordered: 10/06/2023 Assay of thyroid stimulating hormone tsh TSH Lab Routine Pure hypercholesterolemia Ordered: 10/03/2022 [employer] Comment on above: Ordered: 10/03/2022 Assay of thyroid stimulating hormone tsh TSH Lab Routine Pure hypercholesterolemia Ordered: 10/06/2023 [facility] [employer] Work Phone: Comment on above: Ordered: 10/06/2023 Basic metabolic 2000 panel - Serum or Plasma BASIC METABOLIC PANEL Lab Routine Encounter for long-term (current) use of medications Ordered: 10/06/2023 [employer] Work Phone: Comment on above: Ordered: 10/06/2023 Blood count complete auto&auto difrntl wbc CBC WITH DIFFERENTIAL Lab Only Routine Encounter for long-term (current) use of medications Ordered: 10/06/2023 [facility] [employer] Work Phone: Comment on above: Ordered: 10/06/2023 Blood occult fecal h gb deter ia qual feces 1-3 FECAL IMMUNOCHEMICAL TEST (FIT) Lab Routine Colon cancer screening Ordered: 04/18/2022 [employer] Work Phone: Comment on above: Ordered: 04/18/2022 End: 06-14-2024 Bone &/joint imaging 3 phase study NM BONE 3 PHASE Radiology Routine Pain due to internal orthopedic prosthetic devices, implants and grafts, initial encounter [facility] S/P total knee replacement using cement, left 1 Occurrences starting 05/16/2023 until 06/14/2024 [facility] Work Phone: Comment on above: 1 Occurrences starting 05/16/2023 until 06/14/2024 CBC W Auto Different ial panel - Blood COMPLETE BLOOD COUNT W/DIFF Lab Routine Encounter for long-term (current) use of medications Ordered: 10/06/2023 [employer] Work Phone: Comment on above: Ordered: 10/06/2023 End: 09-07-2022 Ct lower extremity w/o contrast material [facility] Work Phone: Comment on above: 1 Occurrences starting 09/07/2022 until 09/07/2022 End: 10-09-2023 Ct lower extremity w/o contrast material CT KNEE WO IVCON RT Radiology Routine Primary osteoarthritis of right knee 1 Occurrences starting 09/09/2022 until 10/09/2023 [facility] Work Phone: Comment on above: 1 Occurrences starting 09/09/2022 until 10/09/2023 Ct lower extremity w /o contrast material CT KNEE WO IVCON RT Radiology Routine Primary osteoarthritis of right knee 09/10/2022 6:57 AM EST [facility] Work Phone: End: 04-25-2020 CT LUMBAR SPINE WO CONTRAST CT LUMBAR SPINE WO CONTRAST Imaging Routine Once for 1 Occurrences starting 04/25/2020 until 04/25/2020 [facility] Comment on above: Once for 1 Occurrences starting 04/25/20 20 until 04/25/2020 CT LUMBAR SPINE WO CONTRAST CT LUMBAR SPINE WO CONTRAST Imaging Routine 04/25/2020 9:04 AM EDT [facility] Cyanocobalamin vitam in b-12 VITAMIN B12 (CYANOCOBALAMIN) Lab Routine B12 deficiency Ordered: 10/03/2022 [employer] Comment on above: Ordered: 10/03/2022 Cyanocobalamin vitam in b-12 VITAMIN B12 (CYANOCOBALAMIN) Lab Routine B12 deficiency Ordered: 10/06/2023 [facility] [employer] Work Phone: Comment on above: Ordered: 10/06/2023 Diabetes tracking panel HEMOGLOB IN A1C Lab Routine Type 2 diabetes mellitus without complication, without long-term current use of insulin (HCC) Ordered: 10/06/2023 [facility] [employer] Work Phone: Comment on above: Ordered: 10/06/2023 EKG 12 Lead EKG 12 Lead ECG STAT 11/27/2019 3:34 AM EDT [facility] Hepatic function panel HEPATIC F UNCTION PANEL Lab Routine Encounter for long-term (current) use of medications Ordered: 10/06/2023 [facility] [employer] Work Phone: Comment on above: Ordered: 10/06/2023 Hepatitis C virus Ab [Units/volume] in Serum by Immunoassay HEPATITIS C ANTIBODY Lab Routine Need for hepatitis C screening test Ordered: 10/03/2022 [employer] Comment on above: Ordered: 10/03/2022 Initiate Oxygen Ther apy Protocol Initiate Oxygen Therapy Protocol Respiratory Care Routine Daily until discontinued starting 11/27/2019, 2 completed [facility] Comment on above: Daily until discontinued starting 2019, 2 completed LAB COLOGUARD COLON CANCER SCREEN LAB COLOGUARD COLON CANCER SCREEN Lab Routine Colon cancer screening Ordered: 10/06/2023 [facility] [employer] Work Phone: Comment on above: Ordered: 10/06/2023 Lipid 1996 panel - S sheldon or Plasma FULL LIPID PROFILE Lab Routine Pure hypercholesterolemia Ordered: 10/03/2022 [employer] Comment on above: Ordered: 10/03/2022 Lipid 1996 panel - S sheldon or Plasma FULL LIPID PROFILE Lab Routine Pure hypercholesterolemia Ordered: 10/06/2023 [facility] [employer] Work Phone: Comment on above: Ordered: 10/06/2023 End: 03-22-2020 MRI LUMBAR SPINE W WO CONTRAST MRI LUMBAR SPINE W WO CONTRAST Imaging Routine Once for 1 Occurrences starting 03/22/2020 until 03/22/2020 [facility] [place], [place] Comment on above: Once for 1 Occurrences starting 03/22/20 20 until 03/22/2020 MRI LUMBAR SPINE W W O CONTRAST MRI LUMBAR SPINE W WO CONTRAST Imaging Routine 03/22/2020 12:52 PM EDT [employer], [place] Prostate specific Ag panel - Serum or Plasma PROSTATE SPECIFIC ANTIGEN (PSA) Lab Routine Screening for malignant neoplasm of prostate Ordered: 10/06/2023 [facility] [employer] Work Phone: Comment on above: Ordered: 10/06/2023 End: 03-03-2023 XR KNEE GENERAL 4V AP BOTH/PA BOTH/LAT/MERC BILATERAL XR KNEE GENERAL 4V AP BOTH/PA BOTH/LAT/MERC BILATERAL Radiology Routine Pain 1 Occurrences starting 02/01/2022 until 03/03/2023 [facility] Work Phone: Comment on above: 1 Occurrences starting 02/01/2022 until 03/03/2023 End: 06-12-2024 XR KNEE POST 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 XR KNEE POST 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 Radiology Routine Status post total left knee replacement 1 Occurrences starting 05/14/2023 until 06/12/2024 [facility] Work Phone: Comment on above: 1 Occurrences starting 05/14/2023 until 06/12/2024 [facility] Immunizations Immunization Date Immunization Notes Care Provider [facility] 10-18-2024 Pneumococcal conjuga te 20 valent (PCV20), polysaccharide VVD152 conjugate, adjuvant, PF (MPN=607) Timothy Correa MD Work Phone: [facility] 10-14-2024 Hemoglobin A1C Timothy Correa MD Work Phone: [facility] 10-06-2023 Hemoglobin A1C Timothy Correa MD Other Phone: [facility] Work Phone: 08-16-2022 Hemoglobin A1C Timothy Correa MD Work Phone: [facility] 08-10-2022 influenza, high dose seasonal, preservative-free [facility] 08-10-2022 influenza virus vacc ine, unspecified formulation Timothy Correa MD Work Phone: [facility] 10-02-2021 Hemoglobin A1C Kusum Reid RN Work Phone: [facility] 07-13-2021 Moderna Monovalent ( 12+ yrs) COVID-19 vaccine, mRNA, spike protein, LNP, PF, 100 mcg/0.5 mL (WUN=[id number]) Timothy Correa MD Work Phone: [facility] 06-06-2021 influenza, injectabl e, quadrivalent, preservative free Kusum Reid RN Work Phone: [facility] 06-06-2021 influenza virus vacc ine, unspecified formulation Timothy Correa MD Work Phone: [facility] 06-05-2021 Moderna Monovalent ( 12+ yrs) COVID-19 vaccine, mRNA, spike protein, LNP, PF, 100 mcg/0.5 mL (JFX=[id number]) Timothy Correa MD Work Phone: [facility] 03-22-2017 pneumococcal polysaccharide vaccine, 23 valent Tray Townsend [facility] 12-08-2015 tetanus toxoid, redu froilan diphtheria toxoid, and acellular pertussis vaccine, adsorbed Tray Townsend [facility] 08-30-1999 tetanus toxoid, redu froilan diphtheria toxoid, and acellular pertussis vaccine, adsorbed Tray Townsend [facility] [place] zoster vac recomb adjuvanted (SHINGRIX) 50 MCG/0.5ML SUSR injection Timothy Correa MD Work Phone: [facility] Payers Date Payer Category Payer Medicare FFS MEDICARE [id number] 2024 Medicare [id number] 2024 Self-pay 2014 Unknown BCBS BCBS - [place] P PO xxxxxxxxxxxx 2014-Present [address] [place] [address] xxxxxxxxxxxx [id number] 2004 Blue Cross Blue Shield ANTH - BLUE CROSS [id number] 2004 Unknown [id number] 2004 Unknown [employer]THEM BLUE CARD PPO OOS [id number] 2004-Present [phone] [address] [place] [address] PPO [id number] 2004 Unknown [id number] 1959 Unknown [id number] [id number] 1959 Unknown [id number] 732 1959 Unknown [id number] 732 1959 Unknown [id number] 732 1959 Unknown [id number] 732 Unknown [id number] 462 Unknown [id number] Social History Date Type Detail Facility Start: 11-09-2019 End: 04-24-2023 Tobacco smoking status NHIS Former smoker [place] Start: 08-09-2019 History SDOH Financial 5 [place] Start: 08-09-2019 End: 12-22-2019 History SDOH Food Worry 1 [place], [place] Start: 08-09-2019 End: 12-22-2019 History SDOH Transport Med 2 [place], [place] Start: 1960 Sex Assigned At Not on file M [place], [place] Exposure to SARS-CoV -2 (event) Unable to assess [place] Start: 03-27-2020 End: 04-24-2023 [facility] End: 03-27-2020 Alcohol intake Current drinker of alcohol (finding) [place] Start: 03-27-2020 History SDOH Social Connections Phone 3 [place] Start: 03-27-2020 History SDOH Physica l Activity DPW 0 [place] Start: 02-12-2022 End: 10-03-2022 Exposure to SARS-CoV-2 (event) Not sure [place] Start: 07-15-1983 End: 07-15-2013 History of tobacco use Current smoker [facility] Start: 07-15-1983 End: 07-15-2013 History of tobacco use Cigarette Smoker [facility] Start: 07-15-2014 End: 08-12-2024 Cigarettes smoked current (pack per day) - Reported 0.1 [facility] Start: 07-18-2021 End: 06-21-2022 Alcohol intake Ex-drinker (finding) [facility] Start: 10-25-2020 History SDOH Alcohol Comment not weekly [facility] Start: 10-25-2022 End: 08-12-2024 Gender identity Not on file [facility] National Score (1-10 0), lower number is lower risk 41 [facility] Are you now , , , , never or living with a partner? [facility] Start: 05-23-2020 Sex Male (finding) [facility] Medical Equipment Procedure Code Equipment Code Equipment Origin al Text Equipment Identifier Dates Renaldo Bn Smplx Hv Fd - [id number] Start: 08-09-2014 Comment on above: Description: Farhat Royal HV Full Dose US Comp Fem 5 Lt Kn Cr Renaldo Trthln - [id number] Start: 08-09-2014 Ins Tib 6 11mm X 3 Cs Trthln - [id number] Start: 08-09-2014 Comp Pat 10mm 35 mm Asym Trthln - [id number] Start: 08-09-2014 Baseplt Tib Trth ln 6 Prim - [id number] Start: 08-09-2014 Component Triathlon 5 Pa Femoral Cruciate Retain Bead Knee Right - [id number] Start: 09-10-2022 Component Tritanium 35mm Metal 10mm Patellar Asymmetric Knee - [id number] Start: 09-10-2022 Insert Triathlon 6 9mm Tibial Bearing Condylar Stabilize Sterile Knee - [id number] Start: 09-10-2022 Baseplate Triathlon 6 Tritanium [id number] Tibial 4 Cruciform Peg Keel Knee - [id number] Start: 09-10-2022 Goals Date Patient Goal [...] on: 01/17/2025 09:15 PM Modules accepted: Orders [facility] 01-17-2025 Miscellaneous Notes Addended by: TIMOTHY CORREA on: 01/17/2025 09:15 PM Modules accepted: Orders documented in this encounter [facility] 09-08-2024 Telephone encounter Note Situation: calling asking for images of CT to be forwarded to their office. Background: na Assessment: na Recommendation: provided with number to medical records and call was [facility] [phone] [facility] Miscellaneous Notes Situation: calling asking for images of CT to be forwarded to their office. Background: na Assessment: na Recommendation: provided with number to medical records and call was transferred [phone] here at office window, Requesting that previous [address] report be faxed to [facility] with referral order. Records printed and faxed as requested. Nothing further needed at this time documented in this encounter [facility] 09-07-2024 Note here at office window, Requesting that previous [address] report be faxed to [facility] with referral order. Records printed and faxed as requested. Nothing further needed at this time [facility] [facility] 09-07-2024 Telephone encounter Note here at office window, Requesting that previous [address] report be faxed to [facility] with referral order. Records printed and faxed as requested. Nothing further needed at this time [facility] History of Present illness Narrative Images [...] EXTERNAL SERVICE REQUEST FOR CARE OUTSIDE THE [facility] Patient was identified by name and date of . Jeanie Perkins MA documented in this encounter [facility] 12-25-2023 Telephone encounter Note Pt's stopped in. Pt already sees Debbie Miranda at [facility] next week. Pt will discuss this with her. If pt needs anything else, they will let us know. [facility] 12-25-2023 Miscellaneous Notes Pt's stopped in. Pt already sees Debbie Miranda at [facility] next week. Pt will discuss this with her. If pt needs anything else, they will let us know. Attempted to contact patient. Left voicemail message on listed contact # to call [employer] [facility] at [phone]. Asked patient to reference #[phone] when calling back to our office. Ok to relay message below. See provider's note and assist pt with scheduling with PM&R delilah and also put on wait list if there is nothing soon. Pt's stopped in. Wants to know what next steps are. [facility] US was negative for DVT. Pt is in pain. Please advise. documented in this encounter [facility] 12-23-2023 Telephone encounter Note Attempted to contact patient. Left voicemail message on listed contact # to call [employer] [facility] at [phone]. Asked patient to reference #99 when calling back to our office. Ok to relay message below. See provider's note and assist pt with scheduling with PM&R delilah and also put on wait list if there is nothing soon. [facility] 12-19-2023 Telephone encounter Note Pt's stopped in. Wants to know what next steps are. They will look on MyChart for results of labs. US was negative for DVT. Pt is in pain. Please advise. [facility] 12-16-2023 History of Present illness Narrative [...] + DOPPLER; Future documented in this encounter [facility] 10-06-2023 History of Present illness Narrative [...] CANCER SCREEN documented in this encounter [facility] [employer] [facility] Work Phone: 09-01-2023 Telephone encounter Note [facility] has received a completed Stop-Bang Questionnaire related to WILIAM, lab work and EKG results from [facility]. Nothing for Dr. Correa to complete/sign. Scanned into Media and Dr. Correa notified on 09/01/2023. [facility] 09-01-2023 Miscellaneous Notes [facility] has received a completed [employer] Questionnaire related to WILIAM, lab work and EKG results from [facility]. Nothing for Dr. Correa to complete/sign. Scanned into Media and Dr. Correa notified on 09/01/2023. documented in this encounter [facility] 08-14-2023 Note HNO ID: [id number] Author: CHIKA CARPENTER MD Service: ? Author [...] in left hip .LEFT HIP PAIN (accession [id number]), RIGHT KNEE PAIN (accession [id number]) TECHNIQUE: XR AP PELVIS, CROSSTABLE LATERAL LEFT [...] is evident. Impression: IMPRESSION: No acute abnormality Movie Producer: [facility] Transcribe Date/Time: Jul 20 2023 1:19P Dictated [...] in left hip .LEFT HIP PAIN (accession [id number]), RIGHT KNEE PAIN (accession [id number]) TECHNIQUE: XR AP PELVIS, CROSSTABLE LATERAL LEFT [...] is evident. Impression: IMPRESSION: No acute abnormality Movie Producer: [facility] Transcribe Date/Time: Jul 20 2023 1:19P Dictated [...] orthopedic problems Chika Carpenter MD Electronic Signature [facility] 07-18-2023 Note HNO ID: [id number] Author: Samantha Aguirre Tech Service: ? Author Type: Technical Service Rep Type: Progress Notes Filed: 07/18/2023 8:27 AM [...] IV DATA: Not applicable SIGNED BY: Emely Cavanaguh July 18, 2023 8:26 AM [facility] 07-18-2023 History of Present illness Narrative [...] 2023 8:26 AM documented in this encounter [facility] 06-27-2023 Note HNO ID: [id number] Author: Chika Carpenter MD Service: ? Author [...] Chika Carpenter M.D. Department of Orthopaedic Surgery [facility] 06-27-2023 History of Present illness Narrative REASON [...] Chika Carpenter M.D. Department of Orthopaedic Surgery [facility] documented in this encounter [facility] 06-16-2023 Miscellaneous Notes Please reschedule Roberto' appt to 06/20/23 at 11am and leave a message on the home phone to let them know per spouse Lien. documented in this encounter [facility] 05-23-2023 Note HNO ID: [id number] Author: Indio Samuel, CT Service: Nuclear Medicine [...] 08:15 PATIENT DISCHARGED TO: Ambulatory patient, left NH department area. A Diagnostic radioactive procedure has taken place, with no further precautions necessary other than routine body substance precautions. More information regarding radiation safety can be found using this link: [email or web address] [email or web address]%20Nuclear%20Medi cine%20Procedures.[email or web address] SIGNATURE: GERMAINE Gonzalez PATIENT NAME: Roberto Osborn DATE: May 23, 2023 TIME: 8:48 AM PAGER/CONTACT #: [facility] 05-23-2023 History of Present illness Narrative [...] DIAGNOSTIC CT PERFORMED: No IV SITE: Ambulatory: NH only - direct IV injection in the [...] safety can be found using this link: [email or web address] [email or web address]-%[email or web address] %20Medicine%[email or web address] SIGNATURE: GERMAINE Gonzalez PATIENT NAME: Roberto Osborn SR DATE: May 23, 2023 TIME: 8:48 AM PAGER/CONTACT #: documented in this encounter [facility] 05-20-2023 Miscellaneous Notes Scheduled and called Lien, ailyn voicemail message with appointment information. Please leave a voice mail at [phone] for spouse Lien for two appts for Roberto. He needs a bone scan result appt on 05/30. Please schedule in the am hold slot. Also the 08/06 appt needs rescheduled to 08/01 in the earliest am. Just let her know on the message what was done. documented in this encounter [facility] 05-16-2023 Note HNO ID: [id number] Author: Regla Higgins PA-C Service: ? Author Type: Physician Ui Designer Type: Progress Notes Filed: 05/16/2023 8:05 AM [...] problems, patient instructed (more content not included)... [facility] 05-16-2023 Note HNO ID: [id number] Author: Samantha Aguirre Tech Service: ? Author Type: Technical Service Rep Type: Progress Notes Filed: 05/16/2023 7:22 AM [...] Emely Cavanaugh May 16, 2023 7:21 AM [facility] 05-16-2023 History of Present illness Narrative [...] Regla Higgins PA-C documented in this encounter [facility] 05-16-2023 History of Present illness Narrative [...] 2023 7:21 AM documented in this encounter [facility] 04-24-2023 History of Present illness Narrative [...] protocol implemented: No documented in this encounter [facility] 01-27-2023 Note HNO ID: [id number] Author: Tre Go PT, DPT Service: ? Author Type: Physical Therapist Type: Progress Notes Filed: 01/27/2023 1:03 PM Note Text: 01/27/2023 [facility] PHYSICAL THERAPY [...] Achieved -Normal Gait---Partially Achieved -Reciprocal Stair Negotiation---Achieved Medina in home exercise program.---Achieved Patient will decrease [...] additional follow-up appointments. Tre Go, PT, DPT [facility] 12-17-2022 Note HNO ID: [id number] Author: Chika Carpenter MD Service: ? Author [...] 3. Follow-up for repeat clinical evaluation Chika Carpetner MD Electronic Signature [facility] 12-16-2022 History of Present illness Narrative [...] MD Electronic Signature documented in this encounter [facility] 11-21-2022 Miscellaneous Notes This was done on 11/20/22. Keyla from patient's [employer] is requesting a copy of the return to work letter with detailed restrictions. I told her we sent something on 11/15, but that was just for his disability. They are asking for that same letter to be faxed to [phone]. Thank you! documented in this encounter [facility] 11-08-2022 Miscellaneous Notes Letter has been faxed and received. Regla Higgins PA-C Patient asking if he could have a return to work letter for light duty to begin on 11/18/22. If you agree, it would need to be faxed to [phone] ('s work), no cover sheet needed. documented in this encounter [facility] 11-06-2022 Note HNO ID: [id number] Author: Tre Go PT, DPT Service: ? [...] Minutes (timed/untimed): 40 Tre Go PT, DPT [facility] 11-06-2022 History of Present illness Narrative [...] Go PT, DPT documented in this encounter [facility] 10-30-2022 Note HNO ID: [id number] Author: Tre Go, PT, DPT Service: ? [...] Achieved -Normal Gait---Partially Achieved -Reciprocal Stair Negotiation---Achieved Medina in home exercise program.---Achieved Patient will decrease pain rating by 2 points to meet minimal clinical important difference for numeric pain rating scale.---Achieved Patient Goals: decrease pain, return to work, improve performance with mobility tasks.---partially Achieved Planned Interventions, Frequency, and Duration: 1x/week, 4 weeks Total Number of Visits Planned: 4 Patient to be seen for Therapeutic exercise (73984), Neuromuscular re-education (81856), Manual therapy (61882), Therapeutic activities (79537), Self-mcfp management (12190), Gait Training (86970) SUBJECTIVE: Patient Reason for Visit: Pt may [...] Minutes (timed/untimed): 42 Tre Go, PT, DPT [facility] 10-30-2022 History of Present illness Narrative [...] Achieved -Normal Gait---Partially Achieved -Reciprocal Stair Negotiation---Achieved Medina in home exercise program.---Achieved Patient will decrease pain rating by 2 points to meet minimal clinical important difference for numeric pain rating scale.---Achieved Patient Goals: decrease pain, return to work, improve performance with mobility tasks.---partially Achieved Planned Interventions, Frequency, and Duration: 1x/week, 4 weeks Total Number of Visits Planned: 4 Patient to be seen for Therapeutic exercise (74369), Neuromuscular re-education (39872), Manual therapy (46314), Therapeutic activities (77063), Self-mcfp management (68851), Gait Training (02418) SUBJECTIVE: Patient Reason for Visit: Pt may [...] Go PT, DPT documented in this encounter [facility] 10-28-2022 Note HNO ID: [id number] Author: Toy Coreas PTA Service: ? Author Type: Frankfurter Inspector Type: Progress Notes Filed: 10/28/2022 7:47 AM [...] Treatment Time Minutes (timed/untimed): 40 Toy Coreas [facility] 10-28-2022 History of Present illness Narrative Episode [...] Toy Coreas PTA documented in this encounter [facility] 10-28-2022 Note HNO ID: [id number] Author: Chika Carpenter MD Service: ? Author [...] 6 weeks Chika Carpenter MD Electronic Signature [facility] 10-27-2022 History of Present illness Narrative [...] MD Electronic Signature documented in this encounter [facility] 10-24-2022 Note HNO ID: [id number] Author: Tre Go PT, DPT Service: ? [...] Total Treatment Time Minutes (timed/untimed): 44 Tre Go, PT, DPT [facility] 10-24-2022 History of Present illness Narrative [...] Go PT, DPT documented in this encounter [facility] 10-21-2022 Note HNO ID: [id number] Author: Toy Coreas PTA Service: ? Author Type: Frankfurter Inspector Type: Progress Notes Filed: 10/21/2022 3:42 PM [...] Treatment Time Minutes (timed/untimed): 43 Toy Coreas, [facility] 10-21-2022 History of Present illness Narrative Episode [...] Toy Coreas PTA documented in this encounter [facility] 10-16-2022 Note HNO ID: [id number] Author: Tre Go PT, DPT Service: ? [...] Minutes (timed/untimed): 43 Tre Go, PT, DPT [facility] 10-16-2022 History of Present illness Narrative [...] Go PT DPT documented in this encounter [facility] 10-15-2022 Miscellaneous Notes LVM & sent MC asking patient to CB & R/S Thanks! documented in this encounter [facility] 10-14-2022 Note HNO ID: [id number] Author: Toy Coreas PTA Service: ? Author Type: Frankfurter Inspector Type: Progress Notes Filed: 10/14/2022 4:51 PM [...] Total Treatment Time Minutes (timed/untimed): [facility] History of Present illness Narrative Episode [...] Toy Coreas PTA documented in this encounter [facility] 10-10-2022 Note HNO ID: [id number] Author: Ava Keita PT Service: ? Author [...] step up 2 x 4 inches [employer] 10: standing incline calf stretch 3 x [...] Time Minutes (timed/untimed): 42 Ava Keita PT [facility] 10-10-2022 History of Present illness Narrative [...] step up 2 x 4 inches [employer] 10: standing incline calf stretch 3 x [...] Ava Keita PT documented in this encounter [facility] 10-03-2022 History of Present illness Narrative [...] Complete exam Roberto Osborn PCP is Timothy oCrrea MD Patient was identified by name and [...] protocol implemented: No documented in this encounter [facility] 10-03-2022 Telephone encounter Note What is the need: Situation: Roberto Osborn's calling Background: states she if faxing lab results done while Roberto was in the hospital Assessment: she is faxing results from CBC, BMP, Iron Study and HgA1C Recommendation: is requesting that these labs not be redrawn if possible HgA1c CBC BMP Iron study [facility] 10-03-2022 Miscellaneous Notes What is the need: Situation: Roberto Osborn's calling Background: states she if faxing lab results done while Roberto was in the hospital Assessment: she is faxing results from CBC, BMP, Iron Study and HgA1C Recommendation: is requesting that these labs not be redrawn if possible HgA1c CBC BMP Iron study documented in this encounter [facility] 10-02-2022 Note HNO ID: [id number] Author: Tre Go PT, DPT Service: ? 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 Based on history , examination(knee, mobility, ADLs, [...] contralateral side -Normal Gait -Reciprocal Stair Negotiation Medina in home exercise program. Patient will decrease pain rating by 2 points to meet minimal clinical important difference for numeric pain rating scale. Patient Goals: decrease pain, return to work, improve performance with mobility tasks. Planned Interventions, Frequency, and Duration: Current Frequency: 2x/week Duration: 4 weeks Total Number of Visits Planned: 8 Planned Treatment Interventions: Therapeutic exercise (02813), Neuromuscular re-education (41855), Manual therapy (78113), Therapeutic activities (94859), Self-mcfp management (46122), Gait Training (46370) Patient demonstrates good understanding of plan of care and treatment. The above goals and plan of care were discussed and agreed upon by patient/family. SUBJECTIVE: Roberto Osborn SR is a 62 year old male seen today for R knee TKR secondary to OA. Pt had home health PT upon D/C from hospital. 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 Pt has hx of L TKR ~10 [...] R Swelling: m (more content not included)... 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 Based on history , examination(knee, mobility, ADLs, [...] contralateral side -Normal Gait -Reciprocal Stair Negotiation Medina in home exercise program. Patient will decrease pain rating by 2 points to meet minimal clinical important difference for numeric pain rating scale. Patient Goals: decrease pain, return to work, improve performance with mobility tasks. Planned Interventions, Frequency, and Duration: Current Frequency: 2x/week Duration: 4 weeks Total Number of Visits Planned: 8 Planned Treatment Interventions: Therapeutic exercise (79304), Neuromuscular re-education (99504), Manual therapy (67428), Therapeutic activities (01396), Self-mcfp management (24280), Gait Training (69275) Patient demonstrates good understanding of plan of care and treatment. The above goals and plan of care were discussed and agreed upon by patient/family. SUBJECTIVE: Roberto Osborn SR is a 62 year old male seen today for R knee TKR secondary to OA. Pt had home health PT upon D/C from hospital. 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 Pt has hx of L TKR ~10 [...] Go PT, DPT documented in this encounter [facility] 09-30-2022 Miscellaneous Notes SITUATION: Patient reports [...] for intervention/education details. documented in this encounter [facility] 09-26-2022 Miscellaneous Notes SITUATION: patient reports [...] for intervention/education details. documented in this encounter [facility] 09-25-2022 Note HNO ID: [id number] Author: Matthieu Esparza PA-C Service: ? Author Type: Physician Ui Designer Type: Progress Notes Filed: 09/25/2022 10:25 AM [...] supported. All questions answered. Matthieu Esparza PA-C [facility] 09-25-2022 Note HNO ID: [id number] Author: GERMAINE Sparrow Service: Radiology Author Type: [...] GERMAINE Sparrow September 25, 2022 10:04 AM [facility] 09-25-2022 History of Present illness Narrative [...] Matthieu Esparza PA-C documented in this encounter [facility] 09-25-2022 History of Present illness Narrative [...] 2022 10:04 AM documented in this encounter [facility] 09-23-2022 Miscellaneous Notes SITUATION: only patient [...] for intervention/education details. documented in this encounter [facility] 09-20-2022 Miscellaneous Notes SITUATION: Patient reports [...] for intervention/education details. documented in this encounter [facility] 09-18-2022 Miscellaneous Notes SITUATION: Patient reports [...] for intervention/education details. documented in this encounter [facility] 09-16-2022 Miscellaneous Notes SITUATION: Only patient [...] for intervention/education details. documented in this encounter [facility] 09-14-2022 Miscellaneous Notes Patient requested to cancel PT visit today due to having to be somewhere at noon and not sure when he will be back. Patient stated he was doing ok and requested Friday for next PT visit. documented in this encounter [facility] 09-12-2022 Miscellaneous Notes Kirill PT at [facility]. Pic of drainage uploaded in [employer]. Per Manjeet GARCIA, remove silverlon and use ABD and blanca wrap. Hold ROM for weekend. Call back if worsens or needs to be seen. documented in this encounter [facility] 09-12-2022 Miscellaneous Notes SITUATION: spouse present [...] Surgical Precautions: WBAT ASSESSMENT: Patient evaluated by [facility] physical therapy. Reviewed and explained [...] blanca wrap. Patient verbally agrees to allow [facility] to obtain an image via photography. documented in this encounter [facility] 09-11-2022 Miscellaneous Notes Welcome Home Call: a. Date and Time: 11:21 AM 09/11/2022 b. Contact name/relationship: PatientRoberto c. Have you been active with any Home Care company in the last 60 days(such as help with bathing, filling medications, checking your blood pressure) ? No. d. Was patient given Flu shot this Season (After Apr,): Yes: Location: , Date received: 08/10/22 e. [facility] will be providing your care, are you agreeable to starting these services? YES (yes or no) f. Do you have any upcoming appointments in the next few days, or restrictions to your schedule? NO g. Caregiver: Patient is able to manage care independently h. Confirmed Visited Location and preferred #: [id number] [place] [address] Please keep our your medications both over the counter and prescribed out for the home care to review, your hospital discharge instructions and write down any questions you might have. In order to maintain a safe environment for our caregivers, [facility] requires any animals or weapons present in the home be located in a secured location. Our clinicians will call you the night before or the morning of the appointment. Their # may come up restricted but they'll leave a VM for you. In case you have any questions or concerns in the meantime, our # is [phone], option [phone] Thank you for your time and have a great day. FILIBERTO Nicholson documented in this encounter [facility] 09-11-2022 Note HNO ID: [id number] Author: Matthieu Esparza PA-C Service: Orthopaedic Surgery Author Type: Physician Ui Designer Type: Progress Notes Filed: 09/11/2022 8:26 AM [...] 1130 VTE RISK CATEGORY: SURGICAL HIGH RISK ([place], [place]) Active VTE Medication Orders: Anticoagulant AND Antiplatelet Medications (From admission, onward) Start Dose Route Frequency Last Action Ordered Stop 09/11/22 0900 aspirin, enteric coated 81 mg tab(s) (Surgical Risk Categories) 81 mg ORAL 2 TIMES DAILY Ordered 09/10/22 1124 -- Active VTE Prophylaxis Orders: 09/10/22 1130 PNEUMATIC COMPRESSION STOCKINGS ([place], [place]) 09/10/22 1130 ACTIVITY - MOBILIZE PATIENT ([place], [place]) PHYSICAL EXAMINATION: Right Lower Extremity: Dorsalis [...] Patient demonstrated understanding of risks versus benefits. [facility] 09-10-2022 Note HNO ID: [id number] Author: Adryan Payton MD Service: Anesthesiology Author [...] September 10, 2022 TIME: 2:44 PM CSN: [id number] [facility] 09-10-2022 Note HNO ID: [id number] Author: Indio Cho APRN.CLOTH TEARER Service: Anesthesiology Author Type: Nurse Choir Director Type: Anesthesia Procedure Notes Filed: 09/10/2022 8:10 AM Note Text: ANESTHESIOLOGY PROCEDURE NOTE Spinal Block General Information Procedure Start Time/Medication Administration: 09/10/2022 7:52 AM Patient location during procedure: OR Timeout Performed Pre-procedure: timeout performed Consent Obtained: Yes 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 SIGNATURE: Indio Cho APRN.CLOTH TEARER PATIENT NAME: Roberto Osborn SR DATE: September 10, 2022 TIME: 8:08 AM CSN: [id number] [facility] 09-09-2022 Miscellaneous Notes called back and [...] why he couldn't do it any sooner. Patients surgery is scheduled for tomorrow 09/10/22... [...] rescheduled. Please place a new ct order. documented in this encounter [facility] 09-07-2022 Note HNO ID: [id number] Author: Shy Saha, CT Service: Radiology Author [...] GERMAINE Chahal September 07, 2022 8:28 AM [facility] 09-07-2022 History of Present illness Narrative [...] 2022 8:28 AM documented in this encounter [facility] 09-03-2022 Miscellaneous Notes Type of form: Long-term Disability Form received via walk in from Dianne When form is completed, Fax form to [phone] [place] [facility] [place] wanting to citrus picker the completed forms once they have been faxed please. Clemente Sauer documented in this encounter [facility] 08-22-2022 Miscellaneous Notes COVID and CT orders entered. Matthieu Esparza PA-C August 22, 2022 3:[address] self test covid order and CT scan order for Rt tka wilmer 09/10/22. Please schedule [address]. documented in this encounter [facility] 08-20-2022 Miscellaneous Notes TOTAL JOINT COMPLETE CARE PROGRAM PRE-OPERATIVE TEACHING Service Date: 08/20/2022 Service Time: 4:00 PM Date of : 1960 Gender: male Date of Surgery: 09/10/22 Procedure: Right Total Knee Replacement Complete 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 SIGNATURE: FILIBERTO Villalobos PATIENT NAME: Roberto Osborn SR DATE: August 20, 2022 TIME: 4:00 PM documented in this encounter [facility] 08-19-2022 Note HNO ID: [id number] Author: Yanet Boyle PA-C Service: ? Author Type: Physician Ui Designer Type: Progress Notes Filed: 08/19/2022 8:11 AM [...] 378 QTC Calculation (Bazett) 427 Calculated P Offerman 57 Calculated R Offerman -3 Calculated T Offerman 30 Impression NORMAL SINUS RHYTHM NORMAL ECG WHEN COMPARED WITH ECG OF 29-JUL-2014 08:31, NO SIGNIFICANT CHANGE WAS FOUND Confirmed by ELIJAH BURNS M.D. ([id number]) on 08/16/2022 2:14:14 PM Labs and ECG reviewed and accepted. Pt is optimally prepared for surgery. Yanet Boyle PA-C 08/19/2022 8:10 AM [facility] 08-16-2022 Instructions Yanet Boyle PA-C - 08/16/2022 9:07 AM EST PATIENT PREOPERATIVE INSTRUCTIONS [facility]: [phone] -- [address] [facility] [address]. Please read below carefully for your personalized [...] Advance Directive, please fax a copy to [phone] or email to for it to be [...] chart that day. documented in this encounter [facility] 08-15-2022 History and physical note HISTORY [...] manage symptoms. Procedure scheduled on 09/10/2022 at [place]. REVIEW OF SYSTEMS: General: No weight loss, malaise or fevers. Neurological: No history of TIA's, stroke, WATER COMMISSIONER tumor, impaired sensorium, hemiplegia, paraplegia or quadraplegia. 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 [...] record for those providers who practice within [facility] or with access to [employer] via [employer], or via [facility] documented in this encounter [facility] 08-02-2022 History of Present illness Narrative [...] 2022 12:30 PM documented in this encounter [facility] 07-29-2022 History of Present illness Narrative [...] Chika Carpenter M.D. Department of Orthopaedic Surgery [facility] documented in this encounter [facility] 07-05-2022 Miscellaneous Notes I talked with [...] helping. Please advise documented in this encounter [facility] 06-28-2022 History of Present illness Narrative [...] knee joint Informed Consent Consent Obtained: Verbal [place] Protocol A moment to CARE was completed. [...] completed when applicable documented in this encounter [facility] 06-21-2022 History of Present illness Narrative [...] knee joint Informed Consent Consent Obtained: Verbal [place] Protocol A moment to CARE was completed. [...] completed when applicable documented in this encounter [facility] 06-14-2022 History of Present illness Narrative [...] knee joint Informed Consent Consent Obtained: Verbal [place] Protocol A moment to CARE was completed. [...] completed when applicable documented in this encounter [facility] 03-04-2022 Miscellaneous Notes Referral created Will wait to hear back if approved or not Please seek approval for viscosupplementation documented in this encounter [facility] 02-22-2022 History of Present illness Narrative [...] Comment: not weekly Drug use: No Occupation: [employer] Worker of [employer] Activity level: recreational, sport/activity: none REVIEW OF [...] knee joint Informed Consent Consent Obtained: Verbal [place] Protocol A moment to CARE was completed. [...] of further assistance. documented in this encounter [facility] 02-22-2022 History of Present illness Narrative [...] 2022 12:52 PM documented in this encounter [facility] 11-15-2021 Miscellaneous Notes Images from the original note were not included. [facility] Care Opportunity Follow-up HBA1C Due Situation: [employer] Reporting Portal reviewed for open care opportunities and completion of health maintenance gaps in care. Payor: SUSAN - [employer] / Plan: BLUE CROSS/HMO,PPO,POS / Product Type: PPO [employer] Reporting Portal: Care Opportunity: Past due [...] for additional care opportunities. DAVON Givens, RN, [facility] [employer] documented in this encounter [facility] Evaluation note Diagnosis Pain- Primary Generalized pain [facility] Pain Generalized pain [facility] Diagnosis Primary osteoarthritis of right knee- Primary Primary localized osteoarthrosis, lower leg [facility] Diagnosis Colon cancer screening- Primary Special screening for malignant neoplasms, colon [facility] Primary osteoarthritis of right knee- Primary Primary localized osteoarthrosis, lower leg [facility] Diagnosis Primary osteoarthritis of right knee- Primary Primary localized osteoarthrosis, lower leg [facility] Diagnosis Primary osteoarthritis of right knee- Primary Primary localized osteoarthrosis, lower leg [facility] Diagnosis Acute pain of right knee- Primary Primary osteoarthritis of right knee Primary localized osteoarthrosis, lower leg [facility] Diagnosis Primary osteoarthritis of right [...] osteoarthrosis, lower leg [facility] Diagnosis Primary osteoarthritis of right knee Primary localized osteoarthrosis, lower leg Preop testing Preoperative examination, unspecified Primary osteoarthritis of right knee Primary localized osteoarthrosis, lower leg [facility] Diagnosis S/P total knee arthroplasty, right- Primary [facility] Diagnosis Pain in right hip Pain in joint, pelvic region and thigh Chronic pain of right knee [facility] Diagnosis Annual physical exam- Primary Routine general medical examination at a [facility] Vitamin D deficiency Unspecified vitamin [...] specified viral diseases [facility] Diagnosis Erectile dysfunction, unspecified erectile dysfunction type- Primary [facility] Diagnosis Chronic pain of right knee- Primary S/P total knee arthroplasty, right [facility] Diagnosis Chronic pain of right knee- Primary [facility] Diagnosis Chronic pain of right knee- Primary [facility] Diagnosis Chronic pain of right knee- Primary [facility] Diagnosis Chronic pain of right knee- Primary [facility] Diagnosis Aftercare following right knee joint replacement surgery- Primary [facility] Diagnosis Chronic pain of right knee- Primary [facility] Diagnosis Chronic pain of right knee- Primary [facility] Diagnosis Chronic pain of right knee- Primary [facility] Diagnosis Aftercare following right knee joint replacement surgery- Primary [facility] Diagnosis Primary osteoarthritis of right knee- Primary Primary localized osteoarthrosis, lower leg Preop testing Preoperative examination, unspecified Encounter for preoperative screening laboratory testing for COVID-19 virus [facility] Diagnosis Primary osteoarthritis of right knee- Primary Primary localized osteoarthrosis, lower leg documented in this encounter [facility] note* Diagnosis Myalgia- Primary Mylagia and myositis, unspecified B12 deficiency Other B-complex deficiencies Vitamin D deficiency Unspecified vitamin D deficiency [facility]* Diagnosis Status post total left knee replacement- Primary documented in this encounter [facility] note* Diagnosis Pain due to internal orthopedic prosthetic devices, implants and grafts, initial encounter [facility] Primary S/P total knee replacement using cement, left 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 ([facility]) documented in this encounter [facility] note* Diagnosis Pain due to internal orthopedic prosthetic devices, implants and grafts, initial encounter ([facility]) S/P total knee replacement using cement, left documented in this encounter [facility] note* Diagnosis Pain due to internal orthopedic prosthetic devices, implants and grafts, initial encounter ([facility])- Primary documented in this encounter [facility] note* Diagnosis Left leg swelling- Primary Left leg swelling [facility]* Diagnosis Pre-op evaluation- Primary Preoperative examination, unspecified Carpal tunnel syndrome of left wrist Carpal tunnel syndrome Essential hypertension, benign Type 2 diabetes mellitus without complication, without long-term current use of insulin ([facility]) Gastroesophageal reflux disease, unspecified whether esophagitis present Allergic rhinitis, unspecified seasonality, unspecified trigger Preoperative examination- Primary Preoperative examination, unspecified Type 2 diabetes mellitus without complication, without long-term current use of insulin ([facility]) Class 1 obesity with body mass index [...] pain, unspecified chronicity documented in this encounter [facility] note* Diagnosis Pre-op evaluation- Primary Preoperative examination, unspecified Carpal tunnel syndrome of left wrist Carpal tunnel syndrome Essential hypertension, benign Type 2 diabetes mellitus without complication, without long-term current use of insulin ([facility]) Gastroesophageal reflux disease, unspecified whether esophagitis present [...] left knee replacement documented in this encounter [facility] note* Diagnosis Pre-op evaluation- Primary Preoperative examination, [...] pain, unspecified chronicity documented in this encounter [facility] note* Diagnosis Pre-op evaluation- Primary Preoperative examination, [...] whether esophagitis present documented in this encounter [facility] note* Diagnosis Chronic pain of right knee- Primary documented in this encounter [facility] [employer] Work Phone: Evaluation note* Diagnosis Spinal stenosis of lumbar region with neurogenic claudication- Primary Spinal stenosis, lumbar region, with neurogenic claudication documented in this encounter [facility] [employer] Work Phone: Evaluation note* Diagnosis Annual physical [...] neoplasms, colon documented in this encounter [facility] [employer] [facility] Work Phone: Evaluation note* Diagnosis Spinal stenosis of lumbar region with neurogenic claudication- Primary Spinal stenosis, lumbar region, with neurogenic claudication documented in this encounter [facility] [employer] Work Phone: Evaluation note* Diagnosis Medicare welcome [...] [facility] Medicare [place] exam- Primary Type 2 diabetes mellitus without [...] clean dressing and contact provider and PT showcase trimmer. Problem:PT Orthopedic Condition Goal:Manage Orthopedic Condition Completed [...] Discuss all medications you are taking, even gxiu-bdw-rpjeylr medicines, with your provider and pharmacist since [...] & Living Will. [facility] Visit [...] of DME/assistive devices. documented in this encounter [facility] care [facility]* Visit Details [...] softener(s) as prescribed. documented in this encounter [facility] Plan of care note* Visit Details [...] of DME/assistive devices. documented in this encounter [facility] Plan of care note* Visit Details [...] of DME/assistive devices. [facility] Visit [...] of DME/assistive devices. [facility] Visit [...] to: outpatient [facility] Diagnostic Procedure Only (Routine) - Authorized Specialty Diagnoses / Procedures Referred By Contac t Referred To Contact XR IMAGING Diagnoses Pain Procedures XR KNEE GENERAL 4V AP BOTH/PA BOTH/LAT/MERC BILATERAL RADIOLOGIC EXAM KNEE COMPLETE 4/MORE VIEWS Lea Connor PA-C [address] [place] [address] Xr Imaging Referral ID Status Reason Start Date Expiration Date Visits Requested Visits Authorized [id number] Authorized Auto-Generat ed Referral 02/01/2022 03/03/2023 1 1 [facility] for referral (narrative)* Diagnostic Procedure Only (Routine) - Closed Specialty Diagnoses / Procedures Referred By Contac t Referred To Contact XR IMAGING Diagnoses Pain Procedures XR KNEE GENERAL 4V AP BOTH/PA BOTH/LAT/MERC BILATERAL RADIOLOGIC EXAM KNEE COMPLETE 4/MORE VIEWS Lea Connor PA-C [address] [place] [address] Xr Imaging Referral ID Status Reason Start Date Expiration Date V isits Requested Visits Authorized [id number] Closed Auto-Generate d Referral 02/01/2022 03/03/2023 1 1 [facility] for referral (narrative)* Outpatient Procedure (Routine) - Closed Specialty Diagnoses / Procedures Referred By Guyac t Referred To Contact [facility] Diagnoses Preoperative examination Procedures ECG COMPLETE ECG ROUTINE ECG W/LEAST 12 LDS W/I&R Yanet Boyle PA-C [address] [address] [facility] [place] [address] [place] [address] Referral ID Status Reason Start Date Expiration Date V isits Requested Visits Authorized [id number] Closed Auto-Generate d Referral 08/16/2022 08/10/2023 1 1 [facility] for referral (narrative)* Diagnostic Procedure Only (Routine) - Authorized Specialty Diagnoses / Procedures Referred By Rodrigo ford Referred To Contact XR IMAGING Diagnoses Status post total left knee replacement Procedures XR KNEE POST 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 RADIOLOGIC EXAMINATION KNEE 3 VIEWS Regla Higgins PA-C [address] [place] [address] Xr Imaging [id number] Referral ID Status Reason Start Date Expiration Date Visits Requested Visits Authorized [id number] Authorized Auto-Generat ed Referral 05/14/2023 06/12/2024 1 1 [facility] for referral (narrative)* Diagnostic Procedure Only (Routine) - Open Specialty Diagnoses / Procedures Referred By Rodrigo frod Referred To Contact MOLECULAR & FUNCTIONAL IMAGING Diagnoses Pain due to internal orthopedic prosthetic devices, implants and grafts, initial encounter (HCC) S/P total knee replacement using cement, left Procedures NM BONE 3 PHASE BONE &/JOINT IMAGING 3 PHASE STUDY Regla Higgins PA-C [address] [place] [address] [facility] [address] [place] [address] Referral ID Status Reason Start Date Expiration Date V isits Requested Visits Authorized [id number] Open Auto-Generate d Referral 05/16/2023 06/14/2024 1 1 [facility] for referral (narrative)* Diagnostic Procedure Only (Routine) - Closed Specialty Diagnoses / Procedures Referred By Contac t Referred To Contact MOLECULAR & FUNCTIONAL IMAGING Diagnoses Pain due to internal orthopedic prosthetic devices, implants and grafts, initial encounter (HCC) S/P total knee replacement using cement, left Procedures NM BONE 3 PHASE BONE &/JOINT IMAGING 3 PHASE STUDY Chika Carpenter MD [address] [address] [facility] [address] [place] [address] Referral ID Status Reason Start Date Expiration Date V isits Requested Visits Authorized [id number] Closed Auto-Generate d Referral 05/20/2023 08/10/2023 1 1 [facility] for referral (narrative)* Diagnostic Procedure Only (Routine) - Closed Specialty Diagnoses / Procedures Referred By Contac t Referred To Contact XR IMAGING Diagnoses Right knee pain, unspecified chronicity Procedures XR KNEE POST OP 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 RIGHT RADIOLOGIC EXAMINATION KNEE 3 VIEWS Matthieu Esparza PA-C [address] [place] [address] Xr Imaging [place] [address] Referral ID Status Reason Start Date Expiration Date V isits Requested Visits Authorized [id number] Closed Auto-Generate d Referral 07/14/2023 08/09/2024 1 1 * Diagnostic Procedure Only (Routine) - Closed Specialty Diagnoses / Procedures Referred By Contac t Referred To Contact XR IMAGING Diagnoses Pain in left hip Procedures XR HIP 2V AP/LAT LEFT (AK,FL,ME,UN) RADEX HIP UNILATERAL WITH PELVIS 2-3 VIEWS Regla Higgins PA-C [address] [place] [address] [place] [address] Referral ID Status Reason Start Date Expiration Date V isits Requested Visits Authorized [id number] Closed Auto-Generate d Referral 06/20/2023 07/19/2024 1 1 [facility] for referral (narrative)* Diagnostic Procedure Only (Routine) - Closed Specialty Diagnoses / Procedures Referred By Contac t Referred To Contact XR IMAGING Diagnoses Status post total left knee replacement Procedures XR KNEE POST 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 RADIOLOGIC EXAMINATION KNEE 3 VIEWS Regla Higgins PA-C [address] [place] [address] [place] [address] Referral ID Status Reason Start Date Expiration Date V isits Requested Visits Authorized [id number] Closed Auto-Generate d Referral 05/14/2023 06/12/2024 1 1 [facility] for referral (narrative)* Diagnostic Procedure Only (Routine) - Closed Specialty Diagnoses / Procedures Referred By Contac t Referred To Contact XR IMAGING Diagnoses Right knee pain, unspecified chronicity Procedures XR KNEE POST OP 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 RIGHT RADIOLOGIC EXAMINATION KNEE 3 VIEWS Matthieu Esparza PA-C [address] [place] [address] [place] [address] Referral ID Status Reason Start Date Expiration Date V isits Requested Visits Authorized [id number] Closed Auto-Generate d Referral 09/12/2022 10/12/2023 1 1 [facility] for referral (narrative)* Diagnostic Procedure Only (Routine) - Closed Specialty Diagnoses / Procedures Referred By Contac t Referred To Contact XR IMAGING Diagnoses Right shoulder pain, unspecified chronicity Procedures XR SHOULDER [id number] AP/TRUE AP RIGHT RADEX SHOULDER COMPLETE MINIMUM 2 VIEWS Matthieu Esparza PA-C [address] [place] [address] Xr Imaging [place] [address] Referral ID Status Reason Start Date Expiration Date V isits Requested Visits Authorized [id number] Closed Auto-Generate d Referral 07/11/2022 08/10/2023 1 1 [facility] for visit Narrative* Diagnostic Procedure Only (Routine) - Closed Specialty Diagnoses / Procedures Referred By Contac t Referred To Contact XR IMAGING Diagnoses Pain Procedures XR KNEE GENERAL 4V AP BOTH/PA BOTH/LAT/MERC BILATERAL RADIOLOGIC EXAM KNEE COMPLETE 4/MORE VIEWS Lea Connor PA-C [address] [id number] Xr Imaging Referral ID Status Reason Start Date Expiration Date V isits Requested Visits Authorized [id number] Closed Auto-Generate d Referral 02/01/2022 03/03/2023 1 1 [facility] for visit Narrative* Diagnostic Procedure Only (Routine) - Closed Specialty Diagnoses / Procedures Referred By Contac t Referred To Contact MOLECULAR & FUNCTIONAL IMAGING Diagnoses Pain due to internal orthopedic prosthetic devices, implants and grafts, initial encounter (HCC) S/P total knee replacement using cement, left Procedures NM BONE 3 PHASE BONE &/JOINT IMAGING 3 PHASE STUDY Chika Carpenter MD [address] [address] Molecular & Functional Imaging [address] [place] [address] Referral ID Status Reason Start Date Expiration Date V isits Requested Visits Authorized [id number] Closed Auto-Generate d Referral 05/20/2023 08/10/2023 1 1 [facility] for visit Narrative* Diagnostic Procedure Only (Routine) - Closed Specialty Diagnoses / Procedures Referred By Contac t Referred To Contact XR IMAGING Diagnoses Pain in left hip Procedures XR HIP 2V AP/LAT LEFT (AK,FL,ME,UN) RADEX HIP UNILATERAL WITH PELVIS 2-3 VIEWS Regla Higgins PA-C [address] [place] [address] [place] [address] Referral ID Status Reason Start Date Expiration Date V isits Requested Visits Authorized [id number] Closed Auto-Generate d Referral 06/20/2023 07/19/2024 1 1 [facility] for visit Narrative* Diagnostic Procedure Only (Routine) - Closed Specialty Diagnoses / Procedures Referred By Contac t Referred To Contact XR IMAGING Diagnoses Status post total left knee replacement Procedures XR KNEE POST 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 RADIOLOGIC EXAMINATION KNEE 3 VIEWS Regla Higgins PA-C [address] [place] [address] [place] [address] Referral ID Status Reason Start Date Expiration Date V isits Requested Visits Authorized [id number] Closed Auto-Generate d Referral 05/14/2023 06/12/2024 1 1 [facility] for visit Narrative* Diagnostic Procedure Only (Routine) - Closed Specialty Diagnoses / Procedures Referred By Contac t Referred To Contact XR IMAGING Diagnoses Right knee pain, unspecified chronicity Procedures XR KNEE POST OP 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 RIGHT RADIOLOGIC EXAMINATION KNEE 3 VIEWS Matthieu Esparza PA-C [address] [place] [address] [place] [address] Referral ID Status Reason Start Date Expiration Date V isits Requested Visits Authorized [id number] Closed Auto-Generate d Referral 09/12/2022 10/12/2023 1 1 [facility] for visit Narrative* Diagnostic Procedure Only (Routine) - Closed Specialty Diagnoses / Procedures Referred By Contac t Referred To Contact XR IMAGING Diagnoses Right shoulder pain, unspecified chronicity Procedures XR SHOULDER [id number] AP/TRUE AP RIGHT RADEX SHOULDER COMPLETE MINIMUM 2 VIEWS Matthieu Esparza PA-C [address] [place] [address] [place] [address] Referral ID Status Reason Start Date Expiration Date V isits Requested Visits Authorized [id number] Closed Auto-Generate d Referral 07/11/2022 08/10/2023 1 1 [facility] Discharge Instructions * Attachments The following attachments cannot be sent through Care Everywhere. 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 [place] [address] Specialty Diagnoses / Procedures Referred By Rodrigo ford Referred To Contact CT IMAGING Diagnoses Primary osteoarthritis of right knee Preop testing Procedures CT KNEE WO IVCON RT CT LOWER EXTREMITY W/O CONTRAST MATERIAL Matthieu Esparza PA-C [address] [place] [address] Ct Imaging Referral ID Status Reason Start Date Expiration Date V isits Requested Visits Authorized [id number] Closed Auto-Generate d Referral 08/26/2022 08/10/2023 1 1 Specialty Diagnoses / Procedures Referred By Contac t Referred To Contact [facility] Diagnoses S/P total knee arthroplasty, right Procedures CONSULT TO PHYSICAL THERAPY PHYSICAL THERAPY EVALUATION HIGH COMPLEX 45 MINS Matthieu Esparza PA-C [address] [place] [address] [facility] [address] [address] Referral ID Status Reason Start Date Expiration Date Visits Requested Visits Authorized [id number] Pending Review Auto-Generat ed Referral 09/25/2022 09/25/2023 1 1 Specialty Diagnoses / Procedures Referred By Contac t Referred To Contact [facility] Diagnoses Pain in right hip Chronic pain of right knee Procedures PT REHAB FOLLOW UP ORDER THERAPEUTIC EXERCISES RE, EA [address] [place] [address] [facility] [address] [address] Referral ID Status Reason Start Date Expiration Date Visits Requested Visits Authorized [id number] Pending Review PCP Requested Referral Auto-Generate d Referral 10/02/2022 12/31/2022 1 1 Specialty Diagnoses / Procedures Referred By Contac t Referred To Contact Timothy Correa MD [address] [place] [address] [place] [address] Referral ID Status Reason Start Date Expiration Date V isits Requested Visits Authorized [id number] Pending Review 3 3 Specialty Diagnoses / Procedures Referred By Contac t Referred To Contact [facility] Diagnoses Chronic pain of right knee Procedures PT REHAB FOLLOW UP ORDER THERAPEUTIC EXERCISES RE, EA [address] [place] [address] [facility] [address] [address] Referral ID Status Reason Start Date Expiration Date Visits Requested Visits Authorized [id number] Pending Review PCP Requested Referral Auto-Generate d Referral 10/16/2022 01/14/2023 1 1 Referral ID Status Reason Start Date Expiration Date Visits Requested Visits Authorized [id number] Pending Review PCP Requested Referral Auto-Generate d Referral 10/30/2022 01/28/2023 1 1 Specialty Diagnoses / Procedures Referred By Contac t Referred To Contact CT IMAGING Diagnoses Primary osteoarthritis of right knee Procedures CT KNEE WO IVCON RT CT LOWER EXTREMITY W/O CONTRAST MATERIAL Matthieu Esparza PA-C [address] [place] [address] Ct Imaging Referral ID Status Reason Start Date Expiration Date V isits Requested Visits Authorized [id number] Closed Auto-Generate d Referral 09/10/2022 08/10/2023 1 1 Specialty Diagnoses / Procedures Referred By Contac t Referred To Contact Radiology Diagnoses Left leg swelling Procedures US LEG LEFT VENOUS + DOPPLER Timothy Correa MD [address] [facility] [place] [address] S ULTRASOUND [address] [place] [place] [address] Referral ID Status Reason Start Date Expiration Date V isits Requested Visits Authorized [id number] Closed Transfer of Care-[facility] 12/16/2023 03/17/2024 1 1 Summary Purpose Family [...] rs pt Chika Carpenter MD [address] [place] [address] [place] [address] [place] [address] Referral ID Status Reason Start Date Expiration Date V isits Requested Visits Authorized [id number] Authorized 08/11/2022 08/10/2023 99 99 Reason Comments Physical Therapy Specialty Diagnoses / Procedures Referred By Contac Referred To Contact PHYSICAL THERAPY Diagnoses Pain in right hip Other chronic pain Pain in right hip [M25.551] Chronic pain of right knee [M25.561, G89.29] Procedures post op est rs pt Chika Carpenter MD [address] [place] [address] [address] [address] [place] [address] Reason Comments Follow Up Euflexxa #3 Specialty Diagnoses / Procedures Referred By [facility] Referred To Contact Orthopedics / ORTHOPAEDIC SURGERY Diagnoses right knee euflexxa #1 Procedures HUSAM INJECT 3 Self Chika Carpenter MD [address] [place] [address] Referral ID Status Reason Start Date Expiration Date V isits Requested Visits Authorized [id number] Closed Financial Clearance Required - Self Pay Patient Cleared - True Self-Pay required payment collected 06/14/2022 09/12/2022 3 3 Reason Comments Injections Follow Up Referral ID Status Reason Start Date Expiration Date Visits Requested Visits Authorized [id number] Authorized Financial Clearance Required - Self Pay [...] W/O CONTRAST MATERIAL Matthieu Esparza PA-C [address] [place] [address] Ct Imaging Referral ID Status Reason Start Date Expiration Date V isits Requested Visits Authorized [id number] Closed Auto-Generate d Referral 08/26/2022 08/10/2023 1 1 Reason Comments Forms Specialty Diagnoses / Procedures Referred By Contac t Referred To Contact Diagnoses Primary osteoarthritis of right knee Procedures ARTHRP KNE CONDYLE&PLATU MEDIAL&LAT COMPARTMENTS ROBOTIC ASSISTED TOTAL KNEE ARTHROPLASTY [facility] [address] [place] [address] Referral ID Status Reason Start Date Expiration Date Visits Re quested Visits Authorized [id number] 1 1 Reason Comments Home Care Confirmation call Reason Comments Patient Update Reason Comments Home Care Unmade PT visit Specialty Diagnoses / Procedures Referred By Contac t Referred To Contact [facility] [address] [place] [address] Referral ID Status Reason Start Date Expiration Date Visits Re quested Visits Authorized [id number] 1 1 Reason Comments Established Patient Follow Up Post Op Knee Replacement Reason Comments PT Eval Specialty Diagnoses / Procedures Referred By Contac t Referred To Contact Physical Therapy / PHYSICAL THERAPY Diagnoses RT TKR [facility] DISC 09/30 Procedures NEW RS PT [facility] TOTAL JOINT Chika Carpenter MD [address] [address] Tre Go, PT, DPT [address] [facility] [place] [address] Referral ID Status Reason Start Date Expiration Date Visits Re quested Visits Authorized [id number] Closed 10/02/2022 12/31/2022 1 1 Reason Comments Complete exam Reason Onset Date Comments Discuss results of exam, other provider 10/03/19 Specialty Diagnoses / Procedures Referred By Contac t Referred To Contact [facility] Diagnoses S/P total knee arthroplasty, right Procedures CONSULT TO PHYSICAL THERAPY PHYSICAL THERAPY EVALUATION HIGH COMPLEX 45 MINS Matthieu Esparza PA-C [address] [place] [address] [facility] [place] [address] Referral ID Status Reason Start Date Expiration Date Visits Requested Visits Authorized [id number] Authorized Auto-Generat ed Referral 08/11/2022 08/10/2023 20 [...] section and content) DATE CREATED AUTHOR 03/28/2020 [facility] DATE CREATED AUTHOR AUTHOR'S ORGANIZ ATION 04/26/2020 [facility] DATE CREATED AUTHOR AUTHOR'S ORGANIZ ATION 05/02/2020 [facility] DATE CREATED AUTHOR AUTHOR'S ORGANIZ ATION 07/20/2023 [facility] DATE CREATED AUTHOR AUTHOR'S ORGANIZ ATION 08/15/2023 [facility] DATE CREATED AUTHOR AUTHOR'S ORGANIZ ATION 09/25/2023 [facility] DATE CREATED AUTHOR AUTHOR'S ORGANIZ ATION 09/11/2024 [facility] DATE CREATED AUTHOR AUTHOR'S ORGANIZ ATION 01/19/2025 [facility] Care Teams (unrecognized sec tion and content) [employer] Relationship Specialty Start Date End Date Timothy Correa MD [address] [place] [address] [place] [address] PCP - General Family Medicine 11/06/20 [employer] Relationship Specialty Start Date End Date Timothy Correa MD [address] [place] [address] [place] [address] PCP - General Family Medicine 11/06/20 [employer] Relationship Specialty Start Date End Date Phill Timothy Coronado PCP - General Family Practice 03/01/13 [employer] Relationship Specialty Start Date End Date Phill Timothy Coronado PCP - General Family Practice 03/01/13 [employer] Relationship Specialty Start Date End Date Phill Timothy Coronado PCP - General Family Practice 03/01/13 [employer] Relationship Specialty Start Date End Date Phill Timothy Coronado PCP - General Family Practice 03/01/13 [employer] Relationship Specialty Start Date End Date Timothy Correa MD [address] [place] [address] [place] [address] PCP - General Family Medicine 11/06/20 [employer] Relationship Specialty Start Date End Date Phill Timothy Coronado PCP - General Family Medicine 03/01/13 [employer] Relationship Specialty Start Date End Date PhillTimothy PCP - General Family Medicine 03/01/13 [employer] Relationship Specialty Start Date End Date Phill Timothy Coronado PCP - General Family Medicine 03/01/13 [employer] Relationship Specialty Start Date End Date Timothy Correa MD [address] [place] [address] [place] [address] PCP - General Family Medicine 11/06/20 [employer] Relationship Specialty Start Date End Date Timothy Correa PCP - General Family Medicine 03/01/13 [employer] Relationship Specialty Start Date End Date Timothy Correa PCP - General Family Medicine 03/01/13 Sisdivina, Rony, [facility] [address] [place] [address] Specialty Custom Shoemaker Orthopedics 07/29/22 10/13/22 [employer] Relationship Specialty Start Date End Date Timothy Correa PCP - General Family Medicine 03/01/13 SisGiovanni murciain, [facility] [address] [place] [address] Specialty Custom Shoemaker Orthopedics 07/29/22 10/13/22 [employer] Relationship Specialty Start Date End Date Timothy Correa PCP - General Family Medicine 03/01/13 SisGiovanni murciain, [facility] [address] [place] [address] Specialty Custom Shoemaker Orthopedics 07/29/22 10/13/22 [employer] Relationship Specialty Start Date End Date Timothy Correa MD [address] [place] [address] DR TR[address], [place] [address] PCP - General Family Medicine 11/06/20 [employer] Relationship Specialty Start Date End Date Timothy Correa PCP - General Family Medicine 03/01/13 SisGiovanni murciain, [facility] [address] [place] [address] Specialty Custom Shoemaker Orthopedics 07/29/22 10/13/22 [employer] Relationship Specialty Start Date End Date Timothy Correa PCP - General Family Medicine 03/01/13 SisGiovanni murciain, [facility] [address] [place] [address] Specialty Custom Shoemaker Orthopedics 07/29/22 10/13/22 [employer] Relationship Specialty Start Date End Date Timothy Correa PCP - General Family Medicine 03/01/13 SisRony murcia, [facility] [address] [place] [address] Specialty Custom Shoemaker Orthopedics 07/29/22 10/13/22 [employer] Relationship Specialty Start Date End Date Timothy Correa PCP - General Family Medicine 03/01/13 Rony Doyle, [facility] [address] [place] [address] Specialty Custom Shoemaker Orthopedics 07/29/22 10/13/22 [employer] Relationship Specialty Start Date End Date Timothy Correa PCP - General Family Medicine 03/01/13 Rony Doyle, [facility] [address] [place] [address] Specialty Custom Shoemaker Orthopedics 07/29/22 10/13/22 Matthieu Esparza PA-C [address] [place] [address] Referring Orthopedics 09/11/22 Chika Carpenter MD [address] [address] Home Care Provider Orthopedics 09/11/22 Ned Arnold, PT [address] [place] [address] Graphic Engineer Post Acute Care 09/11/22 [employer] Relationship Specialty Start Date End Date Timothy Correa PCP - General Family Medicine 03/01/13 Rony Doyle, [facility] [address] [place] [address] Specialty Custom Shoemaker Orthopedics 07/29/22 10/13/22 Matthieu Esparza PA-C [address] [place] [address] Referring Orthopedics 09/11/22 Chika Carpenter MD [address] [place] [address] Home Care Provider Orthopedics 09/11/22 Ned Arnold, PT [address] [place] [address] Graphic Engineer Post Acute Care 09/11/22 [employer] Relationship Specialty Start Date End Date Timothy Correa PCP - General Family Medicine 03/01/13 Rony Doyle, [facility] [address] [place] [address] Specialty Custom Shoemaker Orthopedics 07/29/22 10/13/22 Matthieu Esparza PA-C [address] [place] [address] Referring Orthopedics 09/11/22 Chika Carpenter MD [address] [place] [address] Home Care Provider Orthopedics 09/11/22 Ned Arnold, PT [address] [place] [address] Graphic Engineer Post Acute Care 09/11/22 [employer] Relationship Specialty Start Date End Date Timothy Correa PCP - General Family Medicine 03/01/13 Rony Doyle, [facility] [address] [place] [address] Specialty Custom Shoemaker Orthopedics 07/29/22 10/13/22 Matthieu Esparza PA-C [address] [place] [address] Referring Orthopedics 09/11/22 Chika Carpenter MD [address] [address] Home Care Provider Orthopedics 09/11/22 Ned Arnold, PT [address] [place] [address] Graphic Engineer Post Acute Care 09/11/22 [employer] Relationship Specialty Start Date End Date Timothy Correa M PCP - General Family Medicine 03/01/13 Rony Doyle, [facility] [address] [place] [address] Specialty Custom Shoemaker Orthopedics 07/29/22 10/13/22 Matthieu Esparza PA-C [address] [place] [address] Referring Orthopedics 09/11/22 Chika Carpenter MD [address] [address] Home Care Provider Orthopedics 09/11/22 Ned Arnold, PT [address] [place] [address] Graphic Engineer Post Acute Care 09/11/22 [employer] Relationship Specialty Start Date End Date Timothy Correa M PCP - General Family Medicine 03/01/13 R[facility], [facility] [address] [place] [address] Specialty Custom Shoemaker Orthopedics 07/29/22 10/13/22 Matthieu Esparza PA-C [address] [place] [address] Referring Orthopedics 09/11/22 Chika Carpenter MD [address] [address] Home Care Provider Orthopedics 09/11/22 Ned Arnold, PT [address] [place] [address] Graphic Engineer Post Acute Care 09/11/22 [employer] Relationship Specialty Start Date End Date Timothy Correa M PCP - General Family Medicine 03/01/13 Rony Doyle, [facility] [address] [place] [address] Specialty Custom Shoemaker Orthopedics 07/29/22 10/13/22 Matthieu Esparza PA-C [address] [place] [address] Referring Orthopedics 09/11/22 Chika Carpenter MD [address] [address] Home Care Provider Orthopedics 09/11/22 Ned Arnold, PT [address] [place] [address] Graphic Engineer Post Acute Care 09/11/22 [employer] Relationship Specialty Start Date End Date Timothy Correa PCP - General Family Medicine 03/01/13 Rony Doyle, [facility] [address] [place] [address] Specialty Custom Shoemaker Orthopedics 07/29/22 10/13/22 Matthieu Esparza PA-C [address] [place] [address] Referring Orthopedics 09/11/22 Chika Carpenter MD [address] [address] Home Care Provider Orthopedics 09/11/22 Ned Arnold, PT [address] [place] [address] Graphic Engineer Post Acute Care 09/11/22 [employer] Relationship Specialty Start Date End Date Phill Gutierrez PCP - General Family Medicine 03/01/13 Rony Doyle, [facility] [address] [place] [address] Specialty Custom Shoemaker Orthopedics 07/29/22 10/13/22 Matthieu Esparza PA-C [address] [place] [address] Referring Orthopedics 09/11/22 Chika Carpenter MD [address] [address] Home Care Provider Orthopedics 09/11/22 Ned Arnold, PT [address] [place] [address] Graphic Engineer Post Acute Care 09/11/22 [employer] Relationship Specialty Start Date End Date Timothy Correa MD [address] [facility] [place] [address] PCP - General Family Medicine 11/06/20 [employer] Relationship Specialty Start Date End Date Timothy Correa PCP - General Family Medicine 03/01/13 Rony Doyle [facility] [address] [place] [address] Specialty Custom Shoemaker Orthopedics 07/29/22 10/13/22 Matthieu Esparza PA-C [address] [place] [address] Referring Orthopedics 09/11/22 Chika Carpenter MD [address] [address] Home Care Provider Orthopedics 09/11/22 Ned Arnold, PT [address] [place] [address] Graphic Engineer Post Acute Care 09/11/22 [employer] Relationship Specialty Start Date End Date Timothy Correa MD [address] [facility] [place] [address] PCP - General Family Medicine 11/06/20 [employer] Relationship Specialty Start Date End Date Timothy Correa MD [address] [facility] [place] [address] PCP - General Family Medicine 11/06/20 [employer] Relationship Specialty Start Date End Date Timothy Correa PCP - General Family Medicine 03/01/13 Matthieu Esparza PA-C [address] [place] [address] Referring Orthopedics 09/11/22 Chika Carpenter MD [address] [place] [address] Home Care Provider Orthopedics 09/11/22 Ned Arnold, PT [address] [place] [address] Graphic Engineer Post Acute Care 09/11/22 [employer] Relationship Specialty Start Date End Date Timothy Correa PCP - General Family Medicine 03/01/13 Matthieu Esparza PA-C [address] [place] [address] Referring Orthopedics 09/11/22 Chika Carpenter MD [address] [place] [address] Home Care Provider Orthopedics 09/11/22 Ned Arnold, PT [address] [place] [address] Graphic Engineer Post Acute Care 09/11/22 [employer] Relationship Specialty Start Date End Date Timothy Correa PCP - General Family Medicine 03/01/13 Matthieu Esparza PA-C [address] [place] [address] Referring Orthopedics 09/11/22 Chika Carpenter MD [address] [place] [address] Home Care Provider Orthopedics 09/11/22 Ned Arnold, PT [address] [place] [address] Graphic Engineer Post Acute Care 09/11/22 [employer] Relationship Specialty Start Date End Date Timothy Correa PCP - General Family Medicine 03/01/13 Matthieu Esparza PA-C [address] [place] [address] Referring Orthopedics 09/11/22 Chika Carpenter MD [address] [place] [address] Home Care Provider Orthopedics 09/11/22 Ned Arnold, PT [address] [place] [address] Graphic Engineer Post Acute Care 09/11/22 [employer] Relationship Specialty Start Date End Date Timothy Correa PCP - General Family Medicine 03/01/13 Matthieu Esparza PA-C [address] [place] [address] Referring Orthopedics 09/11/22 Chika Carpenter MD [address] [place] [address] Home Care Provider Orthopedics 09/11/22 Ned Arnold, PT [address] [place] [address] Graphic Engineer Post Acute Care 09/11/22 [employer] Relationship Specialty Start Date End Date Timothy Correa PCP - General Family Medicine 03/01/13 Matthieu Esparza PA-C [address] [place] [address] Referring Orthopedics 09/11/22 Chika Carpenter MD [address] [place] [address] Home Care Provider Orthopedics 09/11/22 Ned Arnold, PT [address] [facility] [place] [address] Graphic Engineer Post Acute Care 09/11/22 [employer] Relationship Specialty Start Date End Date Timothy Correa PCP - General Family Medicine 03/01/13 Matthieu Esparza PA-C [address] [place] [address] Referring Orthopedics 09/11/22 Chika Carpenter MD [address] [place] [address] Home Care Provider Orthopedics 09/11/22 Ned Arnold, PT [address] [place] [address] Graphic Engineer Post Acute Care 09/11/22 [employer] Relationship Specialty Start Date End Date Timothy Correa PCP - General Family Medicine 03/01/13 Matthieu Esparza PA-C [address] [place] [address] Referring Orthopedics 09/11/22 Chika Carpenter MD [address] [place] [address] [id number] Home Care Provider Orthopedics 09/11/22 Ned Arnold, PT [address] [place] [address] Graphic Engineer Post Acute Care 09/11/22 [employer] Relationship Specialty Start Date End Date Timothy Correa PCP - General Family Medicine 03/01/13 Matthieu Esparza PA-C [address] [place] [address] Referring Orthopedics 09/11/22 Chika Carpenter MD [address] [address] Home Care Provider Orthopedics 09/11/22 Ned Arnold, PT [address] [place] [address] Graphic Engineer Post Acute Care 09/11/22 [employer] Relationship Specialty Start Date End Date Timothy Correa PCP - General Family Medicine 03/01/13 Matthieu Esparza PA-C [address] [place] [address] Referring Orthopedics 09/11/22 Chika Carpenter MD [address] [place] [address] Home Care Provider Orthopedics 09/11/22 Ned Arnold, PT [address] [place] [address] Graphic Engineer Post Acute Care 09/11/22 [employer] Relationship Specialty Start Date End Date Timothy Correa PCP - General Family Medicine 03/01/13 Matthieu Esparza PA-C [address] [place] [address] Referring Orthopedics 09/11/22 Chika Carpenter MD [address] [address] Home Care Provider Orthopedics 09/11/22 Ned Arnold, PT [address] [place] [address] Graphic Engineer Post Acute Care 09/11/22 [employer] Relationship Specialty Start Date End Date Timothy Correa PCP - General Family Medicine 03/01/13 Matthieu Esparza PA-C [address] [place] [address] Referring Orthopedics 09/11/22 Chika Carpenter MD [address] [address] Home Care Provider Orthopedics 09/11/22 Ned Arnold, PT [address] [facility], [place] [phone] Graphic Engineer Post Acute Care 09/11/22 [employer] Relationship Specialty Start Date End Date Timothy Correa PCP - General Family Medicine 03/01/13 Rony Doyle, [facility] [address] [place] [address] Specialty Custom Shoemaker Orthopedics 07/29/22 10/13/22 Matthieu Esparza PA-C [address] [place] [address] Referring Orthopedics 09/11/22 Chika Carpenter MD [address] [place] [address] Home Care Provider Orthopedics 09/11/22 Ned Arnold, PT [address] [place] [address] Graphic Engineer Post Acute Care 09/11/22 [employer] Relationship Specialty Start Date End Date Timothy Correa PCP - General Family Medicine 03/01/13 Rony Doyle [facility] [address] [place] [address] Specialty Custom Shoemaker Orthopedics 07/29/22 10/13/22 Matthieu Esparza PA-C [address] [place] [address] Referring Orthopedics 09/11/22 Chika Carpenter MD [address] [place] [address] Home Care Provider Orthopedics 09/11/22 Ned Arnold, PT [address] [facility], [place] [id number] Graphic Engineer Post Acute Care 09/11/22 [employer] Relationship Specialty Start Date End Date Timothy Correa MD [address] [facility] [place] [address] PCP - General Family Medicine 11/06/20 [employer] Relationship Specialty Start Date End Date Timothy Correa MD [address] [facility] [place] [address] PCP - General Family Medicine 11/06/20 [employer] Relationship Specialty Start Date End Date Timothy Correa PCP - General Family Medicine 03/01/13 Matthieu Esparza PA-C [address] [place] [address] Referring Orthopedics 09/11/22 Chika Carpenter MD [address] [place] [address] Home Care Provider Orthopedics 09/11/22 Ned Arnold, PT [address] [place] [address] Graphic Engineer Post Acute Care 09/11/22 [employer] Relationship Specialty Start Date End Date Timothy Correa M PCP - General Family Medicine 03/01/13 Matthieu Esparza PA-C [address] [place] [address] Referring Orthopedics 09/11/22 Chika Carpenter MD [address] [place] [address] Home Care Provider Orthopedics 09/11/22 Ned Arnold, PT [address] [place] [address] Graphic Engineer Post Acute Care 09/11/22 [employer] Relationship Specialty Start Date End Date Timothy Correa M PCP - General Family Medicine 03/01/13 Matthieu Esparza PA-C [address] [place] [address] Referring Orthopedics 09/11/22 Chika Carpenter MD [address] [place] [address] Home Care Provider Orthopedics 09/11/22 Ned Arnold, PT [address] [place] [address] Graphic Engineer Post Acute Care 09/11/22 [employer] Relationship Specialty Start Date End Date Timothy Correa M PCP - General Family Medicine 03/01/13 Matthieu Esparza PA-C [address] [place] [address] Referring Orthopedics 09/11/22 Chika Carpenter MD [address] [place] [address] Home Care Provider Orthopedics 09/11/22 Ned Arnold, PT [address] [place] [address] Graphic Engineer Post Acute Care 09/11/22 [employer] Relationship Specialty Start Date End Date Timothy Correa PCP - General Family Medicine 03/01/13 Matthieu Esparza PA-C [address] [place] [address] Referring Orthopedics 09/11/22 Chika Carpenter MD [address] [place] [address] Home Care Provider Orthopedics 09/11/22 Ned Arnold, PT [address] [place] [address] Graphic Engineer Post Acute Care 09/11/22 [employer] Relationship Specialty Start Date End Date Phill Timothy Coronado PCP - General Family Medicine 03/01/13 Matthieu Esparza PA-C [address] [place] [address] Referring Orthopedics 09/11/22 Chika aCrpenter MD [address] [place] [address] Home Care Provider Orthopedics 09/11/22 Ned Arnold, PT [address] [facility] [address] Graphic Engineer Post Acute Care 09/11/22 [employer] Relationship Specialty Start Date End Date Timothy Correa MD [address] [place] [address] [place] [address] PCP - General Family Medicine 11/06/20 [employer] Relationship Specialty Start Date End Date Timothy Correa PCP - General Family Medicine 03/01/13 Matthieu Esparza PA-C [address] [place] [address] Referring Orthopedics 09/11/22 Chika Carpenter MD [address] [place] [address] Home Care Provider Orthopedics 09/11/22 Ned Arnold, PT [address] [facility] [address] Graphic Engineer Post Acute Care 09/11/22 [employer] Relationship Specialty Start Date End Date Phill Timothy Coronado PCP - General Family Medicine 03/01/13 Matthieu Esparza PA-C [address] [place] [address] Referring Orthopedics 09/11/22 Chika Carpenter MD [address] [place] [address] Home Care Provider Orthopedics 09/11/22 Ned Arnold, PT [address] [place] [address] Graphic Engineer Post Acute Care 09/11/22 [employer] Relationship Specialty Start Date End Date Timothy Correa PCP - General Family Medicine 03/01/13 Matthieu Esparza PA-C [address] [place] [address] Referring Orthopedics 09/11/22 Chika Carpenter MD [address] [place] [address] [phone] Home Care Provider Orthopedics 09/11/22 Ned Arnold, PT [address] [place] [address] Graphic Engineer Post Acute Care 09/11/22 [employer] Relationship Specialty Start Date End Date Timothy Correa MD [address] [place] [address] [place] [address] PCP - General Family Medicine 11/06/20 [employer] Relationship Specialty Start Date End Date Timothy Correa MD [address] [facility] [place] [address] PCP - General Family Medicine 11/06/20 [employer] Relationship Specialty Start Date End Date Timothy Correa MD [address] [facility] [place] [address] PCP - General Family Medicine 11/06/20 [employer] Relationship Specialty Start Date End Date Timothy Correa MD [address] [facility] [place] [address] PCP - General Family Medicine 11/06/20 [employer] Relationship Specialty Start Date End Date Timothy Correa PCP - General Family Medicine 03/01/13 Matthieu Esparza PA-C [address] [place] [address] Referring Orthopedics 09/11/22 Chika Carpenter MD [address] [place] [address] Home Care Provider Orthopedics 09/11/22 Ned Arnold, PT [address] [place] [address] Graphic Engineer Post Acute Care 09/11/22 [employer] Relationship Specialty Start Date End Date Phill Timothy Coronado PCP - General Family Medicine 03/01/13 Matthieu Esparza PA-C [address] [place] [address] Referring Orthopedics 09/11/22 Chika Carpenter MD [address] [place] [address] Home Care Provider Orthopedics 09/11/22 Ned Arnold, PT [address] [place] [address] Graphic Engineer Post Acute Care 09/11/22 [employer] Relationship Specialty Start Date End Date PhillTimothy PCP - General Family Medicine 03/01/13 Rony Doyle, [facility] [address] [place] [address] Specialty Custom Shoemaker Orthopedics 07/29/22 10/13/22 Matthieu Esparza PA-C [address] [place] [address] Referring Orthopedics 09/11/22 Chika Carpenter MD [address] [place] [address] Home Care Provider Orthopedics 09/11/22 Ned Arnold, PT [address] [place] [address] Graphic Engineer Post Acute Care 09/11/22 [employer] Relationship Specialty Start Date End Date Timothy Correa PCP - General Family Medicine 03/01/13 Rony Doyle [facility] [address] [place] [address] Specialty Custom Shoemaker Orthopedics 07/29/22 10/13/22 [employer] Relationship Specialty Start Date End Date Timothy Correa MD [address] [facility] [place] [address] PCP - General Family Medicine 11/06/20 [employer] Relationship Specialty Start Date End Date Timothy Correa MD [address] [facility] [place] [address] PCP - General Family Medicine 11/06/20 [employer] Relationship Specialty Start Date End Date Timothy Correa MD [address] [facility] [place] [address] PCP - General Family Medicine 11/06/20 [employer] Relationship Specialty Start Date End Date Timothy Correa MD [address] [facility] [place] [address] PCP - General Family Medicine 11/06/20 [employer] Relationship Specialty Start Date End Date Timothy Correa MD [address] [facility] [place] [address] PCP - General Family Medicine 11/06/20 [employer] Relationship Specialty Start Date End Date Timothy Correa MD [address] [facility] [place] [address] PCP - General Family Medicine 11/06/20 Source Comments (unrecognize d section and content) In the event this informatio n is protected by the Federal Confidentiality of Alcohol and Drug Abuse Patient Records regulations: The Federal rules restrict any use of the information to criminally investigate or prosecute any alcohol or drug abuse patient.[facility] HospitalIn the event this information is protected by the Federal Confidentiality of Alcohol and Drug Abuse Patient Records regulations: The Federal rules restrict any use of the information to criminally investigate or prosecute any alcohol or drug abuse patient.[facility] HospitalIn the event this information is protected by the Federal Confidentiality of Alcohol and Drug Abuse Patient Records regulations: The Federal rules restrict any use of the information to criminally investigate or prosecute any alcohol or drug abuse patient.[facility] HospitalIn the event this information is protected by the Federal Confidentiality of Alcohol and Drug Abuse Patient Records regulations: The Federal rules restrict any use of the information to criminally investigate or prosecute any alcohol or drug abuse patient.[facility] HospitalIn the event this information is protected by the Federal Confidentiality of Alcohol and Drug Abuse Patient Records regulations: The Federal rules restrict any use of the information to criminally investigate or prosecute any alcohol or drug abuse patient.[facility] HospitalIn the event this information is protected by the Federal Confidentiality of Alcohol and Drug Abuse Patient Records regulations: The Federal rules restrict any use of the information to criminally investigate or prosecute any alcohol or drug abuse patient.[facility] HospitalIn the event this information is protected by the Federal Confidentiality of Alcohol and Drug Abuse Patient Records regulations: The Federal rules restrict any use of the information to criminally investigate or prosecute any alcohol or drug abuse patient.[facility] HospitalIn the event this information is protected by the Federal Confidentiality of Alcohol and Drug Abuse Patient Records regulations: The Federal rules restrict any use of the information to criminally investigate or prosecute any alcohol or drug abuse patient.[facility] HospitalIn the event this information is protected by the Federal Confidentiality of Alcohol and Drug Abuse Patient Records regulations: The Federal rules restrict any use of the information to criminally investigate or prosecute any alcohol or drug abuse patient.[facility] HospitalIn the event this information is protected by the Federal Confidentiality of Alcohol and Drug Abuse Patient Records regulations: The Federal rules restrict any use of the information to criminally investigate or prosecute any alcohol or drug abuse patient.[facility] HospitalIn the event this information is protected by the Federal Confidentiality of Alcohol and Drug Abuse Patient Records regulations: The Federal rules restrict any use of the information to criminally investigate or prosecute any alcohol or drug abuse patient.[facility] HospitalIn the event this information is protected by the Federal Confidentiality of Alcohol and Drug Abuse Patient Records regulations: The Federal rules restrict any use of the information to criminally investigate or prosecute any alcohol or drug abuse patient.[facility] HospitalIn the event this information is protected by the Federal Confidentiality of Alcohol and Drug Abuse Patient Records regulations: The Federal rules restrict any use of the information to criminally investigate or prosecute any alcohol or drug abuse patient.[facility] HospitalIn the event this information is protected by the Federal Confidentiality of Alcohol and Drug Abuse Patient Records regulations: The Federal rules restrict any use of the information to criminally investigate or prosecute any alcohol or drug abuse patient.[facility] HospitalIn the event this information is protected by the Federal Confidentiality of Alcohol and Drug Abuse Patient Records regulations: The Federal rules restrict any use of the information to criminally investigate or prosecute any alcohol or drug abuse patient.[facility] HospitalIn the event this information is protected by the Federal Confidentiality of Alcohol and Drug Abuse Patient Records regulations: The Federal rules restrict any use of the information to criminally investigate or prosecute any alcohol or drug abuse patient.[facility] HospitalIn the event this information is protected by the Federal Confidentiality of Alcohol and Drug Abuse Patient Records regulations: The Federal rules restrict any use of the information to criminally investigate or prosecute any alcohol or drug abuse patient.[facility] HospitalIn the event this information is protected by the Federal Confidentiality of Alcohol and Drug Abuse Patient Records regulations: The Federal rules restrict any use of the information to criminally investigate or prosecute any alcohol or drug abuse patient.[facility] HospitalIn the event this information is protected by the Federal Confidentiality of Alcohol and Drug Abuse Patient Records regulations: The Federal rules restrict any use of the information to criminally investigate or prosecute any alcohol or drug abuse patient.[facility] HospitalIn the event this information is protected by the Federal Confidentiality of Alcohol and Drug Abuse Patient Records regulations: The Federal rules restrict any use of the information to criminally investigate or prosecute any alcohol or drug abuse patient.[facility] HospitalIn the event this information is protected by the Federal Confidentiality of Alcohol and Drug Abuse Patient Records regulations: The Federal rules restrict any use of the information to criminally investigate or prosecute any alcohol or drug abuse patient.[facility] HospitalIn the event this information is protected by the Federal Confidentiality of Alcohol and Drug Abuse Patient Records regulations: The Federal rules restrict any use of the information to criminally investigate or prosecute any alcohol or drug abuse patient.[facility] HospitalIn the event this information is protected by the Federal Confidentiality of Alcohol and Drug Abuse Patient Records regulations: The Federal rules restrict any use of the information to criminally investigate or prosecute any alcohol or drug abuse patient.[facility] HospitalIn the event this information is protected by the Federal Confidentiality of Alcohol and Drug Abuse Patient Records regulations: The Federal rules restrict any use of the information to criminally investigate or prosecute any alcohol or drug abuse patient.[facility] HospitalIn the event this information is protected by the Federal Confidentiality of Alcohol and Drug Abuse Patient Records regulations: The Federal rules restrict any use of the information to criminally investigate or prosecute any alcohol or drug abuse patient.[facility] HospitalIn the event this information is protected by the Federal Confidentiality of Alcohol and Drug Abuse Patient Records regulations: The Federal rules restrict any use of the information to criminally investigate or prosecute any alcohol or drug abuse patient.[facility] HospitalIn the event this information is protected by the Federal Confidentiality of Alcohol and Drug Abuse Patient Records regulations: The Federal rules restrict any use of the information to criminally investigate or prosecute any alcohol or drug abuse patient.[facility] HospitalIn the event this information is protected by the Federal Confidentiality of Alcohol and Drug Abuse Patient Records regulations: The Federal rules restrict any use of the information to criminally investigate or prosecute any alcohol or drug abuse patient.[facility] HospitalIn the event this information is protected by the Federal Confidentiality of Alcohol and Drug Abuse Patient Records regulations: The Federal rules restrict any use of the information to criminally investigate or prosecute any alcohol or drug abuse patient.[facility] HospitalIn the event this information is protected by the Federal Confidentiality of Alcohol and Drug Abuse Patient Records regulations: The Federal rules restrict any use of the information to criminally investigate or prosecute any alcohol or drug abuse patient.[facility] HospitalIn the event this information is protected by the Federal Confidentiality of Alcohol and Drug Abuse Patient Records regulations: The Federal rules restrict any use of the information to criminally investigate or prosecute any alcohol or drug abuse patient.[facility] HospitalIn the event this information is protected by the Federal Confidentiality of Alcohol and Drug Abuse Patient Records regulations: The Federal rules restrict any use of the information to criminally investigate or prosecute any alcohol or drug abuse patient.[facility] HospitalIn the event this information is protected by the Federal Confidentiality of Alcohol and Drug Abuse Patient Records regulations: The Federal rules restrict any use of the information to criminally investigate or prosecute any alcohol or drug abuse patient.[facility] HospitalIn the event this information is protected by the Federal Confidentiality of Alcohol and Drug Abuse Patient Records regulations: The Federal rules restrict any use of the information to criminally investigate or prosecute any alcohol or drug abuse patient.[facility] HospitalIn the event this information is protected by the Federal Confidentiality of Alcohol and Drug Abuse Patient Records regulations: The Federal rules restrict any use of the information to criminally investigate or prosecute any alcohol or drug abuse patient.[facility] HospitalIn the event this information is protected by the Federal Confidentiality of Alcohol and Drug Abuse Patient Records regulations: The Federal rules restrict any use of the information to criminally investigate or prosecute any alcohol or drug abuse patient.[facility] HospitalIn the event this information is protected by the Federal Confidentiality of Alcohol and Drug Abuse Patient Records regulations: The Federal rules restrict any use of the information to criminally investigate or prosecute any alcohol or drug abuse patient.[facility] HospitalIn the event this information is protected by the Federal Confidentiality of Alcohol and Drug Abuse Patient Records regulations: The Federal rules restrict any use of the information to criminally investigate or prosecute any alcohol or drug abuse patient.[facility] HospitalIn the event this information is protected by the Federal Confidentiality of Alcohol and Drug Abuse Patient Records regulations: The Federal rules restrict any use of the information to criminally investigate or prosecute any alcohol or drug abuse patient.[facility] HospitalIn the event this information is protected by the Federal Confidentiality of Alcohol and Drug Abuse Patient Records regulations: The Federal rules restrict any use of the information to criminally investigate or prosecute any alcohol or drug abuse patient.[facility] HospitalIn the event this information is protected by the Federal Confidentiality of Alcohol and Drug Abuse Patient Records regulations: The Federal rules restrict any use of the information to criminally investigate or prosecute any alcohol or drug abuse patient.[facility] HospitalIn the event this information is protected by the Federal Confidentiality of Alcohol and Drug Abuse Patient Records regulations: The Federal rules restrict any use of the information to criminally investigate or prosecute any alcohol or drug abuse patient.[facility] HospitalIn the event this information is protected by the Federal Confidentiality of Alcohol and Drug Abuse Patient Records regulations: The Federal rules restrict any use of the information to criminally investigate or prosecute any alcohol or drug abuse patient.[facility] HospitalIn the event this information is protected by the Federal Confidentiality of Alcohol and Drug Abuse Patient Records regulations: The Federal rules restrict any use of the information to criminally investigate or prosecute any alcohol or drug abuse patient.[facility] HospitalIn the event this information is protected by the Federal Confidentiality of Alcohol and Drug Abuse Patient Records regulations: The Federal rules restrict any use of the information to criminally investigate or prosecute any alcohol or drug abuse patient.[facility] HospitalIn the event this information is protected by the Federal Confidentiality of Alcohol and Drug Abuse Patient Records regulations: The Federal rules restrict any use of the information to criminally investigate or prosecute any alcohol or drug abuse patient.[facility] HospitalIn the event this information is protected by the Federal Confidentiality of Alcohol and Drug Abuse Patient Records regulations: The Federal rules restrict any use of the information to criminally investigate or prosecute any alcohol or drug abuse patient.[facility] HospitalIn the event this information is protected by the Federal Confidentiality of Alcohol and Drug Abuse Patient Records regulations: The Federal rules restrict any use of the information to criminally investigate or prosecute any alcohol or drug abuse patient.[facility] HospitalIn the event this information is protected by the Federal Confidentiality of Alcohol and Drug Abuse Patient Records regulations: The Federal rules restrict any use of the information to criminally investigate or prosecute any alcohol or drug abuse patient.[facility] HospitalIn the event this information is protected by the Federal Confidentiality of Alcohol and Drug Abuse Patient Records regulations: The Federal rules restrict any use of the information to criminally investigate or prosecute any alcohol or drug abuse patient.[facility] HospitalIn the event this information is protected by the Federal Confidentiality of Alcohol and Drug Abuse Patient Records regulations: The Federal rules restrict any use of the information to criminally investigate or prosecute any alcohol or drug abuse patient.[facility] HospitalIn the event this information is protected by the Federal Confidentiality of Alcohol and Drug Abuse Patient Records regulations: The Federal rules restrict any use of the information to criminally investigate or prosecute any alcohol or drug abuse patient.[facility] HospitalIn the event this information is protected by the Federal Confidentiality of Alcohol and Drug Abuse Patient Records regulations: The Federal rules restrict any use of the information to criminally investigate or prosecute any alcohol or drug abuse patient.[facility]In the event this information is protected by the Federal Confidentiality of Alcohol and Drug Abuse Patient Records regulations: The Federal rules restrict any use of the information to criminally investigate or prosecute any alcohol or drug abuse patient.[facility] HospitalIn the event this information is protected by the Federal Confidentiality of Alcohol and Drug Abuse Patient Records regulations: The Federal rules restrict any use of the information to criminally investigate or prosecute any alcohol or drug abuse patient.[facility] HospitalIn the event this information is protected by the Federal Confidentiality of Alcohol and Drug Abuse Patient Records regulations: The Federal rules restrict any use of the information to criminally investigate or prosecute any alcohol or drug abuse patient.[facility] HospitalIn the event this information is protected by the Federal Confidentiality of Alcohol and Drug Abuse Patient Records regulations: The Federal rules restrict any use of the information to criminally investigate or prosecute any alcohol or drug abuse patient.[facility] HospitalIn the event this information is protected by the Federal Confidentiality of Alcohol and Drug Abuse Patient Records regulations: The Federal rules restrict any use of the information to criminally investigate or prosecute any alcohol or drug abuse patient.[facility] HospitalIn the event this information is protected by the Federal Confidentiality of Alcohol and Drug Abuse Patient Records regulations: The Federal rules restrict any use of the information to criminally investigate or prosecute any alcohol or drug abuse patient.[facility] FOR RECORDS PERTAINING TO PATIENTS WHO [...] BE BASED ON THE PRIMARY CLINICAL RECORDS. [facility] [employer] [facility]. provides no warranty or guarantee of the accuracy or completeness of information in this document.
--- OUTSIDE RECORDS SUMMARY | 2025-02-05 15:37 | XMS RPT_ITS | CCD ---
Author Organization [facility] Inform ion [facility] Care Team Providers Care Paving Contractor Name Role Phone Timothy Correa Primary Care Provider Unavailable Primary Care Provider UnavailTimothy Elaine MD Primary Care Provider [phone] Timothy Correa Primary Care Provider [phone] Timothy Correa MD Primary Care Provider Timothy [...] HYDROcodone; Translations: [HYDROCODONE-ACETA MINOPHEN] Drug Allergy 5 [place], [place] (20 sources) Codeine; Translations: [CODEINE] Drug Allergy 0 Rash [place], [place] (20 sources) Morphine; Translations: [MORPHINE] Drug Allergy 1 [facility] (1 source) Codeine Drug Allergy 5 [facility] (1 source) Morphine Drug Allergy 4 [facility] Medications Current Medications Medication Drug Class(es) Dates Sig (Normalized) Sig (Original) acetaminophen 500 mg oral tablet (20 sources) Start: 09-11-2022 take 2 tablets by mouth every eight hours as needed Acetaminophen Extra Strength 500 MG tablet Take 1,000 mg by mouth every 8 hours as needed. 09/11/2022 Active Comment on above: Take 2 tablets by [facility] every 8 hours as needed for pain. [...] days. 60 Tablet 0 10/27/2023 11/11/2023 Active [id number] 200 actuat albuterol 0.09 mg/actuat metered dose [...] Comment on above: Take 1 capsule by [facility] once daily. disability placard (11 sources) Start: [...] Comment on above: Take 1 tablet by [facility] once daily. metFORMIN hydrochloride 500 mg oral [...] including day of surgery. polyethylene glycol 3350 55720 mg powder for oral solution (8 sources) [...] on above: Take 1 capsule by [facility] twice daily as needed for constipation. esomeprazole [...] (19 sources) Patient encounter status; Translations: [Other manager long term care (current) drug therapy] Onset: 05-25-2016 09-19-2020 Episodic Other aftercare (5 sources) Long-term (current) use of other medications Onset: 05-25-2016 09-19-2020 Episodic Other aftercare (6 sources) Long-term current use of drug therapy; Translations: [Other manager long term care (current) drug therapy] Onset: 05-25-2016 09-19-2020 Episodic [...] Interpretation Reference Range Facility Addendum Noteon 01-17-2025 Actuarial Technician Authentication Interface Message Text Addended by: TIMOTHY CORREA on: 01/17/2025 09:15 PM Modules accepted: Orders Normal [facility] Assessment AND Plan Noteon 0 10-18-2024 Actuarial Technician Authentication Interface Message Text Normal [facility] Actuarial Technician Authentication Interface Message Text Orders: tirzepatide (MOUNJARO) 2.5 MG/0.5ML pen; Inject 2.5 mg under the skin once weekly. Normal [facility] Patient Instructionson 10-18 Actuarial Technician Authentication Interface Message Text Today the following vaccines were administered: Pneumococcal Conjugate (PCV 20). Vaccines may have different side effects and care recommendations. Please refer to the Vaccine Information Sheet(s) (VIS) provided in your preferred language to learn more about the vaccines that were administered today. If you have any problems or questions, please call the Xand line at [phone]. Normal [facility] Progress Noteson 10-18-2024 Actuarial Technician Authentication Interface Message Text ANNUAL WELLNESS VISIT Subjective Mr. Osborn is a 64 year old who is being seen for his Annual Wellness Visit. I have reviewed and updated the following information (Care Team, Medical History, Surgical History, Social History, Family History and current medications including xhqx-dba-spqjubg medications and supplements): Patient Care Team: Timothy [...] Session: Patient declined Stress: Patient Declined (08/12/2024) [employer] [place] [employer] - Occupational Stress Questionnaire Feeling of Stress : Patient declined Social Connections: Unknown (08/12/2024) Social Connection and Isolation Panel [NHANES] Frequency of Communication with Friends and Family: Patient declined Frequency of Social Gatherings with Friends and Family: Patient declined Attends Yarsani Services: Patient declined Active Member of Clubs [...] / Excessive Appetite?: Not at all Self Bledsoe?: Not at all Trouble Concentrating?: Not at [...] 10/18/2024 (more content not included)... Normal The [facility] Interface Message Text Patient was identified by name and date of . Jeanie Perkins MA During this visit the vaccine(s) was: Administered Provider received consent from patient/parent/patient medical collections representative for immunization(s) as ordered, questionnaire completed and VIS educational handouts reviewed with patient/parent/patient medical collections representative who denies contraindications Double identification of patient completed with patient/parent/patient medical collections representative using name and prior to administration, and patient tolerated immunization(s) administration without incident. Normal The [facility] Progress Noteson 10-16-2024 Actuarial Technician Authentication Interface Message Text Your blood counts, liver function, kidney function, thyroid function and cholesterol were normal. The hemoglobin A1c shows good control of blood sugar. The vitamin B12 levels and vitamin-D levels were good. Normal The [facility] BASIC METABOLIC PANELon 03-0 Anion gap [Moles/Vol] 13 mmol/L Normal 10-20 [facility] Comment on above: Performed By: #### C H8, HEPATIC, HDL, PSA #### [facility] [address] [place] [address], Calcium [Mass/Vol] 9.0 mg/dL Normal 8.6-10.3 [facility] Comment on above: Performed By: #### C H8, HEPATIC, HDL, PSA #### [facility] [address] [place] [address], Chloride [Moles/Vol] 103 mmol/L Normal 98-107 [facility] Comment on above: Performed By: #### C H8, HEPATIC, HDL, PSA #### [facility] [address] [place] [address], CO2 [Moles/Vol] 28 mmol/L Normal 21-31 [facility] Comment on above: Performed By: #### C H8, HEPATIC, HDL, PSA #### [facility] [address] [place] [address], Creatinine [Mass/Vol] 0.68 mg/dL Low 0.70-1.30 [facility] Comment on above: Performed By: #### C H8, HEPATIC, HDL, PSA #### [facility] [address] [place] [address], ESTIMATED GFR (CKD-EPI) 103 mL/min/1.73sqm Normal >=60 [facility] Comment on above: Result Comment: 2020 [...] Inclusion of Race in Diagnosing Kidney Disease. Samoan Journal of Kidney Diseases 2021;79(2):268-88.e1. 2. N Engl J Med 1 Vol. 385 Issue 19 Pages [phone] Performed By: #### Daniel H8, HEPATIC, HDL, PSA #### [facility] [address] [place], [place], Glucose [Mass/Vol] 140 mg/dL High 74-109 [facility] Comment on above: Performed By: #### Daniel H8, HEPATIC, HDL, PSA #### [facility] [address] [place], [place], Potassium [Moles/Vol] 4.1 mmol/L Normal 3.5-5.0 [facility] Comment on above: Performed By: #### Daniel H8, HEPATIC, HDL, PSA #### [facility] [address] [place], [place], Sodium [Moles/Vol] 140 mmol/L Normal 136-145 [facility] Comment on above: Performed By: #### Daniel H8, HEPATIC, HDL, PSA #### [facility] [address] [place], [place], Urea nitrogen [Mass/Vol] 11 mg/dL Normal 7-25 [facility] Comment on above: Performed By: #### Daniel H8, HEPATIC, HDL, PSA #### [facility] [address] [place], [place], CBC WITH DIFFERENTIALon 03-0 -2024 Basophils (Bld) [#/Vol] 0.07 10*3/uL Normal 0.00-0.20 [facility] Comment on above: Performed By: #### C BCDSAT ####[facility] [id number] [place], [place], Basophils/100 WBC (Bld) 1.0 % Normal <=1.9 [facility] Comment on above: Performed By: #### C BCDSAT ####[facility] [id number] [place], [place], Eosinophils (Bld) [#/Vol] 0.22 10*3/uL Normal 0.00-0.70 [facility] Comment on above: Performed By: #### C BCDSAT ####[facility] [id number] [place], [place], Eosinophils/100 WBC (Bld) 3.3 % Normal 0.1-4.0 [facility] Comment on above: Performed By: #### C BCDSAT ####[facility] [id number] [place], [place], Erythrocyte distribution width (RBC) [Ratio] 17.1 % High 11.5-14.5 [facility] Comment on above: Performed By: #### C BCDSAT ####[facility] [id number] [place], [place], Hematocrit (Bld) [Volume fraction] 40.2 % Low 41.0-53.0 [facility] Comment on above: Performed By: #### C BCDSAT ####[facility] [id number] [place] [address], Hemoglobin (Bld) [Mass/Vol] 13.2 g/dL Low 13.9-16.3 The [facility] Comment on above: Performed By: #### C BCDSAT ####[facility] [id number] [place] [address], Lymphocytes (Bld) [#/Vol] 2.48 10*3/uL Normal 1.00-4.80 The [facility] Comment on above: Performed By: #### C BCDSAT ####[facility] [id number] [place] [address], Lymphocytes/100 WBC (Bld) 36.5 % Normal 24.0-44.0 The [facility] Comment on above: Performed By: #### C BCDSAT ####[facility] [id number] [place], [place], MCH (RBC) [Entitic mass] 25.6 pg Low 26.0-34.0 The [facility] Comment on above: Performed By: #### C BCDSAT ####[facility] [id number] [place] [address], MCHC (RBC) [Mass/Vol] 32.9 g/dL Normal 32.0-35.9 [facility] Comment on above: Performed By: #### Daniel BORJAAT ####[facility] [id number] [place], [place], MCV (RBC) [Entitic vol] 78 fL Low 80-100 [facility] Comment on above: Performed By: #### Daniel BORJAAT ####[facility] [id number] [place] [address], Monocytes (Bld) [#/Vol] 0.81 10*3/uL Normal 0.20-1.00 [facility] Comment on above: Performed By: #### Daniel BORJAAT ####[facility] [id number] [place] [address], Monocytes/100 WBC (Bld) 12.0 % High 2.0-11.0 The [facility] Comment on above: Performed By: #### Daniel BORJAAT ####[facility] [id number] [place] [address], Neutrophils (Bld) [#/Vol] 3.20 10*3/uL Normal 1.50-8.00 The [facility] Comment on above: Performed By: #### Daniel BORJAAT ####[facility] [id number] [place] [address], Neutrophils/100 WBC (Bld) 47.2 % Normal 31.0-76.0 The [facility] Comment on above: Performed By: #### Daniel BORJAAT ####[facility] [id number] [place] [address], Platelet mean volume (Bld) [Entitic vol] 8.4 fL Normal 7.5-11.2 The [facility] Comment on above: Performed By: #### Daniel BORJAAT ####[facility] [id number] [place], [place], Platelets (Bld) [#/Vol] 302 10*3/uL Normal 150-400 [facility] Comment on above: Performed By: #### Daniel BORJAAT ####[facility] [id number] [place], [place], RBC (Bld) [#/Vol] 5.16 10*6/uL Normal 4.50-5.90 The [facility] Comment on above: Performed By: #### C BCDSAT ####[facility] [id number] [place], [place], WBC (Bld) [#/Vol] 6.8 10*3/uL Normal 4.5-11.5 The [facility] Comment on above: Performed By: #### C BCDSAT ####[facility] [id number] [place], [place], FULL LIPID PROFILEon 025 Cholesterol [Mass/Vol] 140 mg/dL Normal <200 [facility] Comment on above: Result Comment: Lizette rable: < 200 mg/dL Borderline High: 200-239 mg/dL High: > = 240 mg/dL Performed By: #### C H8, HEPATIC, HDL, PSA ####[facility] [id number] [place] [address], Cholesterol in LDL [Mass/Vol] 88 mg/dL Normal <100 [facility] Comment on above: Performed By: #### C H8, HEPATIC, HDL, PSA ####[facility] [id number] [place] [address], Cholesterol.total/Cho lesterol in HDL [Mass ratio] 3.89 {ratio} Normal <5.00 The [facility] Comment on above: Performed By: #### C H8, HEPATIC, HDL, PSA ####[facility] [id number] [place], [place], HDL CHOL 36 mg/dL Low >40 [facility] Comment on above: Performed By: #### C H8, HEPATIC, HDL, PSA ####[facility] [id number] [place] [address], LDL/HDL 2.44 Normal <3.57 The [facility] Comment on above: Performed By: #### C H8, HEPATIC, HDL, PSA ####[facility] [id number] [place] [address], NON-HDL CHOLESTEROL 104 mg/dL Normal <130 [facility] Comment on above: Performed By: #### C H8, HEPATIC, HDL, PSA ####[facility] [id number] [place], [place], Triglyceride [Mass/Vol] 121 mg/dL Normal <150 [facility] Comment on above: Result Comment: Norm al: < 150 mg/dL Borderline High: 150-199 mg/dL High: 200-499 mg/dL Very High: > = 500 mg/dL Performed By: #### C H8, HEPATIC, HDL, PSA ####[facility] [id number] [place], [place], HEMOGLOBIN A1Con 10-14-2024 Glucose [Mass/Vol] 154 mg/dL Normal [facility] Comment on above: Performed By: #### H B A1C ####[facility] [address] [place], [place], HbA1c (Bld) [Mass fraction] 7.0 % High 4.0-5.6 [facility] Comment on above: Performed By: #### H B A1C ####[facility] [address] [place], [address] HEPATIC FUNCTION PANELon Albumin [Mass/Vol] 4.4 g/dL Normal 3.5-5.7 [facility] Comment on above: Performed By: #### C H8, HEPATIC, HDL, PSA #### [facility] [address] [place] [address], ALK 67 IU/L Normal 34-104 [facility] Comment on above: Performed By: #### C H8, HEPATIC, HDL, PSA #### [facility] [address] [place] [address], ALT [Catalytic activity/Vol] 23 U/L Normal 7-52 [facility] Comment on above: Performed By: #### C H8, HEPATIC, HDL, PSA #### [facility] [address] [place] [address], AST [Catalytic activity/Vol] 20 U/L Normal 13-39 [facility] Comment on above: Performed By: #### C H8, HEPATIC, HDL, PSA #### [facility] [address] [place] [address], Bilirubin [Mass/Vol] 0.9 mg/dL Normal 0.3-1.0 [facility] Comment on above: Performed By: #### C H8, HEPATIC, HDL, PSA #### [facility] [address] [place] [address], Bilirubin.direct [Mass/Vol] 0.17 mg/dL Normal 0.03-0.18 The [facility] Comment on above: Performed By: #### C H8, HEPATIC, HDL, PSA #### [facility] [address] [place] [address], Protein [Mass/Vol] 6.8 g/dL Normal 6.0-8.3 [facility] Comment on above: Performed By: #### C H8, HEPATIC, HDL, PSA #### [facility] [address] [place] [address], MICROALBUMIN, URINEon 2024 Albumin DL <= 20 mg/L (U) [Mass/Vol] mg/dL Normal [facility] Comment on above: Order Comment: Note updated reference ranges. Performed By: #### U R MA #### [facility] [address] [place] [address], CREATININE, URINE 58 mg/dL Normal The [facility] Comment on above: Order Comment: Note updated reference ranges. Performed By: #### U R MA #### [facility] [address] [place] [address], MICRO-ALBUMIN/CREAT RATIO < 12 Normal <=30 The [facility] Comment on above: Order Comment: Note updated reference ranges. Performed By: #### U R MA #### [facility] [address] [place] [address], Progress Noteson 10-14-2024 Actuarial Technician Authentication Interface Message Text Identity was confirmed by verifying patient name and date of . Blood drawn for patient. Blood obtained from right arm, using 21 gauge butterfly. Patient denies discomfort, bleeding controlled, bandage applied. Site appears normal. Urine sample obtained, placed in proper tube for transportation to lab for processing. Normal [facility] TSHon 10-14-2024 TSH 1.035 uIU/mL Normal 0.450-5.330 [facility] Comment on above: Performed By: #### T SH HS, VITB12 #### [facility] [address] [place] [address], VITAMIN B12 (CYANOCOBALAMIN) on 10-14-2024 Cobalamin (Vitamin B12) [Mass/Vol] 1591 pg/mL High 180-914 [facility] Comment on above: Order Comment: Defic ient: <= 145 pg/mL Insufficient: 145 - 180 pg/mL Sufficient: 180 - 914 pg/mL Performed By: #### T SH HS, VITB12 #### [facility] [address] [place] [address], VITAMIN D, 25-HYDROXYon VITD25 43.2 ng/mL Normal 30-100 [facility] Comment on above: Order Comment: Defic ient : <20.0 ng/mL Insufficient : 20.0-29.9 ng/mL Sufficient : 30.0 - 100.0 ng/mL Potential Toxicity : >100.0 ng/mL Performed By: #### V ITD25 #### [facility] [address] [place] [address], Telephone Encounteron 2024 Actuarial Technician Authentication Interface Message Text Left message on patient's VM that lab orders have been placed and he can report to the office to have drawn. Nothing further needed at this time Normal [facility] Telephone Encounteron 2024 Actuarial Technician Authentication Interface Message Text Pt is scheduled for office visit with PCP on 10/18/24. Would like to have labs drawn prior to this appointment due to fasting restrictions, Please place orders in chart if appropriate and send QuickMobilet message to patient advising he can come have drawn. Normal The [facility] Telephone Encounteron 2024 Actuarial Technician Authentication Interface Message Text Lm on pt vm that appt is Cx. Asked for return call or go on Mocapay to r/s. Also sending 365 docobiteshart message. Normal The [facility] Surgery Visit Reporton 09-10 Surgery Visit Report [facility] [address] [place] [address] OFFICE VISIT Date of Service: 09/10/24 MR#: [id number] Acct: [id number] Name: ROBERTO OSBORN Rep #: [id number] : 1960 Provider: Dr. Bunny baig MD Age/Sex: 64/M Location: [facility] Status: Signed Intake Vital Signs [...] you fallen in the past year?: No [facility] Medical History (Updated 09/10/24 @ 08:57 by [...] comfortable and no acute distress [facility] Head: normal to inspection, normocephalic and atraumatic Eyes General: appearance normal, both eyes and all related structures Neck Neck: normal visual inspection GI Other: Abdomen is soft, nontender and nondistended. Examination of the left lateral abdomen near the waistline does reveal some asymmetric swelling compared to the right. I really do not appreciate any obvious dorcas (more content not included)... Normal [facility] Telephone Encounteron 2024 Actuarial Technician Authentication Interface Message Text Situation: calling asking for images of CT to be forwarded to their office. Background: na Assessment: na Recommendation: provided with number to medical records and call was transferred [phone] Normal [facility] Progress Noteson 09-06-2024 Actuarial Technician Authentication Interface Message Text HPI: Roberto is [...] Diagnoses and all orders for this visit: [facility] abdominal mass - EXTERNAL SERVICE REQUEST FOR CARE OUTSIDE THE [employer] SYSTEM Normal The [facility] Actuarial Technician Authentication Interface Message Text Patient was identified by name and date of . Jeanie Perkins MA Normal [facility] CT ABDOMEN/PELVIS W/O CONTRA STon 08-20-2024 CT ABDOMEN/PELVIS W/O CONTRAST EXAMINATION: CT ABDOMEN/PELVIS W/O CONTRAST 08/19/2024 01:57 PM CLINICAL HISTORY: Abdominal mass, neoplasm suspected ASSOCIATED DIAGNOSIS: [facility] abdominal mass ORDERING PROVIDER: TIMOTHY CORREA [...] as noted above. MACRO: None Normal [facility] Progress Noteson 08-16-2024 Actuarial Technician Authentication Interface Message Text HPI: Roberto presents [...] pain, wraps around waist to lower back oRberto Law PCP is Timothy Correa MD Patient [...] an (more content not included)... Normal [facility] Actuarial Technician Authentication Interface Message Text Identification was verified by patient verbalizing his name and date of . Normal [facility] Actuarial Technician Authentication Interface Message Text Patient was identified by name and date of . HARVINDER Miller/MPA Normal [facility] Neurology Visit Reporton Neurology Visit Report [facility] [address] [facility], [address] [place] [id number] OFFICE VISIT Date of Service: 06/14/24 MR#: [id number] Acct: [id number] Name: ROBERTO OSBORN Rep #: [id number] : 1960 Provider: Dr. Adryan angel MD Age/Sex: 64/M Location: [facility] Status: Signed HPI HPI Chief Complaint: Establish Care Details: The patient is a 64-year-old right handed male who [facility]. He self referred for left leg pain due to lower back pain. He had EMG/NCS done 03/2024 that revealed polyneuropathy. He has been seeing [facility] for this as well, was taking [...] on 09/24/2023 as well as records from [facility], [facility] where he has been receiving treatment for chronic low back pain. Record indicates patient has had 3 back surgeries. Most recently at L3-4-5 and S1 with fusions that took place at [facility] on 09/09/2023. Patient has also received interventional treatments with back injections and facet injections from [facility]. Patient's current medications include gabapentin 600 [...] x 3. Memory intact. Lungs show normal felt washing machine tender expression repetition. Insight and judgment appear to [...] to t (more content not included)... Normal [facility].doppler Lower extremity v ein - lefton [...] extremity deep venous thrombosis identified. MACRO: None [facility] Radiology Study observation (narrative) [facility] Lower extremity v ein - leftOrdered By: Anson Levin on 12-16-2023 [facility] Work Phone: [employer] 09-24-2023 [employer] HNO ID: [id number] Author: GLADYS LAWRENCE RT(R) Service: ? Author Type: Horticultural Services Supervisor Type: Gotcha Ninjas Filed: 09/24/2023 09:27 Note Text: Radiology Service [...] PATIENT PRESENTS WITH AN IMPLANTABLE OR ATTACHED DAY CARE DIRECTOR: No ALLERGIES: Reviewed and unchanged CONTRAST [...] 2023 TIME: 9:26 AM Normal [facility] Basic metabolic 2000 panelon 09-24-2023 Anion gap [Moles/Vol] 12 mmol/L Normal 9-18 [facility] Comment on above: Order Comment: Speci men Type: BLOOD SPECIMEN Ordering Facility: [facility] Address: [address] [place] [address] Performed By: #### 2 4321-2 #### [facility] CLIA [id number] [address] [place] [address] [place] Calcium [Mass/Vol] 9.3 mg/dL Normal 8.5-10.2 [facility] Comment on above: Order Comment: Emilyi men Type: BLOOD SPECIMEN Ordering Facility: [facility] Address: [address] [place] [address] Performed By: #### 2 4321-2 #### [facility] CLIA [id number] [address] [place] [address] [place] Chloride [Moles/Vol] 99 mmol/L Normal 97-105 [facility] Comment on above: Order Comment: Speci men Type: BLOOD SPECIMEN Ordering Facility: [facility] Address: [address] [place] [address] Performed By: #### 2 4321-2 #### [facility] CLIA [id number] [address] [place] [address] [place] CO2 [Moles/Vol] 25 mmol/L Normal 22-30 [facility] Comment on above: Order Comment: Speci men Type: BLOOD SPECIMEN Ordering Facility: [facility] Address: [address] [place] [address] Performed By: #### 2 4321-2 #### [facility] CLIA [id number] [address] [place] [address] [place] Creatinine [Mass/Vol] 0.57 mg/dL Low 0.73-1.22 [facility] Comment on above: Order Comment: Vera grant Type: BLOOD SPECIMEN Ordering Facility: [facility] Address: [address] [place] [address] Performed By: #### 2 4321-2 #### [facility] CLIA [id number] [address] [place] [address] [place] Creatinine and Glomerular filtration rate.predicted panel (S/P/Bld) 109 mL/min/1.73m??? Normal >=60 [facility] Comment on above: Order Comment: Vera juanita Type: BLOOD SPECIMEN Ordering Facility: [facility] Address: [address] [place] [address] Result Comment: Snehal mated Glomerular Filtration Rate [...] GFR. Performed By: #### 2 4321-2 #### [facility] CLIA [id number] [address] [place] [address] [place] Glucose [Mass/Vol] 167 mg/dL High 74-99 [facility] Comment on above: Order Comment: Vera juanita Type: BLOOD SPECIMEN Ordering Facility: [facility] Address: [address] [place] [address] Result Comment: The [place] Diabetes Association (ADA) provides guidance for cutoff [...] Standards of Medical Care in Diabetes 2016, [place] [employer] Association. Diabetes Care. 2016.39(Suppl 1). Performed By: #### 2 4321-2 #### [facility] CLIA [id number] [address] [place] [address] [place] Potassium [Moles/Vol] 3.7 mmol/L Normal 3.7-5.1 [facility] Comment on above: Order Comment: Speci men Type: BLOOD SPECIMEN Ordering Facility: [facility] Address: [address] [place] [address] Performed By: #### 2 4321-2 #### [facility] CLIA [id number] [address] [place] [address] STATES OF [facility] Sodium [Moles/Vol] 136 mmol/L Normal 136-144 [facility] Comment on above: Order Comment: Emilyi men Type: BLOOD SPECIMEN Ordering Facility: [facility] Address: [address] [place] [address] Performed By: #### 2 4321-2 #### [facility] CLIA [id number] [address] [place] [address] [place] Urea nitrogen [Mass/Vol] 7 mg/dL Low 9-24 [facility] Comment on above: Order Comment: Speci men Type: BLOOD SPECIMEN Ordering Facility: [facility] Address: [address] [place] [address] Performed By: #### 2 4321-2 #### [facility] CLIA [id number] [address] [place] [address] [place] CBC panel Auto (Bld)on 09-24 Erythrocyte distribution width (RBC) [Ratio] 14.7 % Normal 11.5-15.0 [facility] Comment on above: Order Comment: Speci men Type: BLOOD SPECIMEN Ordering Facility: [facility] Address: [address] [place] [address] Performed By: #### 5 8410-2 #### [facility] CLIA [id number] [address] [place] [id number] [place] [address] [place] Hematocrit (Bld) [Volume fraction] 36.9 % Low 39.0-51.0 [facility] Comment on above: Order Comment: Speci men Type: BLOOD SPECIMEN Ordering Facility: [facility] Address: [address] [place] [address] Performed By: #### 5 8410-2 #### [facility] CLIA [id number] [address] [place] [address] [place] Hemoglobin (Bld) [Mass/Vol] 12.1 g/dL Low 13.0-17.0 [facility] Comment on above: Order Comment: Speci men Type: BLOOD SPECIMEN Ordering Facility: [facility] Address: [address] [place] [address] Performed By: #### 5 8410-2 #### [facility] CLIA [id number] [address] [place] [address] [place] MCH (RBC) [Entitic mass] 28.7 pg Normal 26.0-34.0 [facility] Comment on above: Order Comment: Speci men Type: BLOOD SPECIMEN Ordering Facility: [facility] Address: [address] [place] [address] Performed By: #### 5 8410-2 #### [facility] CLIA [id number] [address] [place], [place] [id number] [place] [address] [place] MCHC (RBC) [Mass/Vol] 32.8 g/dL Normal 30.5-36.0 [facility] Comment on above: Order Comment: Speci men Type: BLOOD SPECIMEN Ordering Facility: [facility] Address: [address] [place] [address] Performed By: #### 5 8410-2 #### [facility] CLIA [id number] [address] [place] [address] [place] MCV (RBC) [Entitic vol] 87.4 fL Normal 80.0-100.0 [facility] Comment on above: Order Comment: Speci men Type: BLOOD SPECIMEN Ordering Facility: [facility] Address: [address] [place] [address] Performed By: #### 5 8410-2 #### [facility] CLIA [id number] [address] [place] [address] [place] Platelet mean volume (Bld) [Entitic vol] 8.4 fL Low 9.0-12.7 [facility] Comment on above: Order Comment: Speci men Type: BLOOD SPECIMEN Ordering Facility: [facility] Address: [address] [place] [address] Performed By: #### 5 8410-2 #### [facility] CLIA [id number] [address] [place], [place] [id number] [place] [address] [place] Platelets (Bld) [#/Vol] 578 10*3/uL High 150-400 [facility] Comment on above: Order Comment: Speci men Type: BLOOD SPECIMEN Ordering Facility: [facility] Address: [address] [place] [address] Performed By: #### 5 8410-2 #### [facility] CLIA [id number] [address] [place] [address] [place] RBC (Bld) [#/Vol] 4.22 10*6/uL Normal 4.20-6.00 [facility] Comment on above: Order Comment: Speci men Type: BLOOD SPECIMEN Ordering Facility: [facility] Address: [address] [place] [address] Performed By: #### 5 8410-2 #### [facility] CLIA [id number] [address] [place] [address] [place] WBC (Bld) [#/Vol] 12.19 10*3/uL High 3.70-11.00 [facility] Comment on above: Order Comment: Speci men Type: BLOOD SPECIMEN Ordering Facility: [facility] Address: [address] [place] [address] Performed By: #### 5 8410-2 #### [facility] CLIA [id number] [address] [place] [address] [place] [address] LUMBAR SPINE W IVCONon CT LUMBAR SPINE W IVCON * * *Final Report* * * DATE OF EXAM: Sep 24 2023 9:25AM [facility] 0012 - CT LUMBAR SPINE W IVCON [...] are 5 lumbar-type vertebrae. Anatomic variant: None. Division Commander (topogram) images: No additional findings. Alignment: Very [...] and assume there are 5 lumbar-type vertebrae. Tow Truck Dispatcher: [facility] Transcribe Date/Time: Sep 24 2023 9:32A Dictated by : CISCO SCHWAB MD This examination was interpreted and the report reviewed and electronically signed by: CISCO SCHWAB MD on Sep 24 2023 9:45AM EST [id number] Normal [facility] ED NOTEon 09-24-2023 ED NOTE HNO ID: [id number] Author: RANJIT CALABRESE RN Service: Emergency Medicine Author Type: Registered Nurse Type: ED Notes Filed: 09/24/2023 10:42 Note Text: Results are back, pt resting in bed, at bedside, pt feeling better. Normal [facility] ED NOTE HNO ID: [id number] Author: RANJIT CALABRESE RN Service: Emergency Medicine Author Type: Registered Nurse Type: ED Notes Filed: 09/24/2023 08:51 Note Text: Post void bladder scan 288 mls, doctor Jose made aware. Normal [facility] ED NOTE HNO ID: [id number] Author: RANJIT CALABRESE RN Service: Emergency Medicine Author Type: Registered Nurse Type: ED Notes Filed: 09/24/2023 07:34 Note Text: Ice pack to lower back for pt comfort Normal [facility] ED NOTE HNO ID: [id number] Author: RANJIT CALABRESE RN Service: Emergency Medicine Author Type: Registered Nurse Type: ED Notes Filed: 09/24/2023 07:15 Note Text: Back fusion 09-09-2023, past 4 days have been having pain going down left leg Normal [facility] ED PROV NOTEon 09-24-2023 ED PROV NOTE HNO ID: [id number] Author: REECE COOPER MD Service: Emergency Medicine Author Type: Physician Type: ED Provider Notes Filed: 09/24/2023 11:06 Note Text: ED Provider Note Patient Name: Roberto Osborn SR : 1960 SERVICE DATE: 09/24/23 History Patient presents with: Back Pain Patient with history of chronic back pain, status post back surgery x 3, most recently at L3, 4, 5, S1 fusion at [facility] on 09/09/2023, presents to the emergency [...] (more content not included)... Normal [facility] No Panel Informationon 07-20 IMPRESSION: No acute abnormality Tow Truck Dispatcher: ENOCH Transcribe Date/Time: Jul 20 2023 1:19P Dictated by : JIHAN MIX MD This examination was interpreted and the report reviewed and electronically signed by: JIHAN MIX MD on Jul 20 2023 1:20PM [facility] No Panel InformationOrdered By: Ccf Provider on 07-20-2023 [facility] XR Hip - left AP and [...] in left hip .LEFT HIP PAIN (accession [id number]), RIGHT KNEE PAIN (accession [id number]) TECHNIQUE: XR AP PELVIS, CROSSTABLE LATERAL LEFT [...] Small joint effusion. 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 [facility] Provider, Cchugo [facility] - 07/20/2023 * * *Final Report* * * DATE OF EXAM: Jul 18 2023 8:26AM ALFREDO 5279 - XR HIP 2V AP/ LAT LT / PROCEDURE REASON: M25.552-Pain in left hip * * * * Physician Interpretation * * * * PROCEDURE: Left hip and right knee INDICATION: Pain in left hip .LEFT HIP PAIN (accession [id number]), RIGHT KNEE PAIN (accession [id number]) TECHNIQUE: XR AP PELVIS, CROSSTABLE LATERAL LEFT [...] is evident. IMPRESSION IMPRESSION: No acute abnormality Tow Truck Dispatcher: ENOCH Transcribe Date/Time: Jul 20 2023 1:19P Dictated by : JIHAN MIX MD This examination was interpreted and the report reviewed and electronically signed by: JIHAN MIX MD on Jul 20 2023 1:20PM [facility] XR Knee AP and Lateral and [...] in left hip .LEFT HIP PAIN (accession [id number]), RIGHT KNEE PAIN (accession [id number]) TECHNIQUE: XR AP PELVIS, CROSSTABLE LATERAL LEFT [...] Small joint effusion. 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 [facility] Provider, Cchugo [facility] - 07/20/2023 * * *Final Report* * * DATE OF EXAM: Jul 18 2023 8:26AM ALFREDO 5209 - XR KNEE 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 RT / PROCEDURE REASON: M25.561-Right knee pain, unspecified chronicity * * * * Physician Interpretation * * * * PROCEDURE: Left hip and right knee INDICATION: Pain in left hip .LEFT HIP PAIN (accession [id number]), RIGHT KNEE PAIN (accession [id number]) TECHNIQUE: XR AP PELVIS, CROSSTABLE LATERAL LEFT [...] is evident. IMPRESSION IMPRESSION: No acute abnormality Tow Truck Dispatcher: PSCB Transcribe Date/Time: Jul 20 2023 1:19P Dictated by : JIHAN MIX MD This examination was interpreted and the report reviewed and electronically signed by: JIHAN MIX MD on Jul 20 2023 1:20PM [facility] CNOVon 07-18-2023 CNOV Office Visit (ORNA ) ROBERTO OSBORN SR ([id number]) 1960 M Date Time Provider Department 07/18/23 [...] in left hip .LEFT HIP PAIN (accession [id number]), RIGHT KNEE PAIN (accession [id number]) TECHNIQUE: XR AP PELVIS, CROSSTABLE LATERAL LEFT [...] is evident. Impression: IMPRESSION: No acute abnormality Tow Truck Dispatcher: [facility] Transcribe Date/Time: Jul 20 2023 1:19P [...] in left hip .LEFT HIP PAIN (accession [id number]), RIGHT KNEE PAIN (accession [id number]) TECHNIQUE: XR AP PELVIS, CROSSTABLE LATERAL LEFT [...] is evident. Impression: IMPRESSION: No acute abnormality Tow Truck Dispatcher: PSCB Transcribe Date/Time: Jul 20 2023 1:19P [...] MD Electronic (more content not included)... Normal [facility] No Panel Informationon 07-18 Radiology Study observation (narrative) [facility] XR HIP 2V AP/ LAT LTon [...] in left hip .LEFT HIP PAIN (accession [id number]), RIGHT KNEE PAIN (accession [id number]) TECHNIQUE: XR AP PELVIS, CROSSTABLE LATERAL LEFT [...] TKA is evident. IMPRESSION: No acute abnormality Tow Truck Dispatcher: PSCB Transcribe Date/Time: Jul 20 2023 1:19P Dictated by : JIHAN MIX MD This examination was interpreted and the report reviewed and electronically signed by: JIHAN MIX MD on Jul 20 2023 1:20PM EST [id number] [facility] XR KNEE 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 R [...] in left hip .LEFT HIP PAIN (accession [id number]), RIGHT KNEE PAIN (accession [id number]) TECHNIQUE: XR AP PELVIS, CROSSTABLE LATERAL LEFT [...] TKA is evident. IMPRESSION: No acute abnormality Tow Truck Dispatcher: PSCMayra Transcribe Date/Time: Jul 20 2023 1:19P Dictated by : JIHAN MIX MD This examination was interpreted and the report reviewed and electronically signed by: JIHAN MIX MD on Jul 20 2023 1:20PM EST [id number] [facility] ROBERTO OSBORN SR ([id number]) 1960 M Date Time Provider Department 06/16/23 [...] Encounter Status:Closed by EDA CASTELLANOS on 06/24/23 [facility] CNOVon 05-30-2023 CNOV Office Visit (ORMDNA ) ROBERTO OSBORN SR ([id number]) 1960 M Date Time Provider Department 05/30/23 [...] Chika Carpenter M.D. Department of Orthopaedic Surgery [facility] Allergies As of Date: 05/30/2023 Noted Allergy Reaction CODEINE 07/18/2021 2 - Rash MORPHINE 10/26/2020 4 - Hives Date Reviewed: 05/30/2023 Reviewed by: Chika Carpenter MD - Fully Assessed Reason for Visit: Follow Up [171] Cmt: Bone scan results Primary Visit Diagnosis:Pain due to internal orthopedic prosthetic devices, implants and grafts, initial encounter ([facility]) [T84.84XA] Order(s):meloxicam (MOBIC) 7.5 mg tabletTake [...] of breath). (more content not included)... Normal [facility] BONE 3 PHASEon 05-23-2023 [place] BONE 3 PHASE * * *Final Report* * * DATE OF EXAM: May 23 2023 1:10PM CARLEE 0009 - [place] BONE 3 PHASE / PROCEDURE REASON: multiple diagnoses * * * * Physician Interpretation * * * * EXAM: THREE-PHASE BONE SCAN HISTORY: Pain due to internal orthopedic prosthetic devices, implants and grafts, initial encounter ([facility]) S/P total knee replacement using cement, [...] Presumed postop changes in the right knee. Tow Truck Dispatcher: ENOCH Transcribe Date/Time: May 23 2023 1:29P Dictated by : CALI OBRIEN, This examination was interpreted and the report reviewed and electronically signed by: ALESHA DEE MD on May 23 2023 2:14PM EST [id number] [facility] No Panel Informationon 05-23 [facility] Anne 05-20-2023 KATIE Telephone (SANTIAGO) ROBERTO OSBORN SR ([id number]) 1960 M Date Time Provider Department 05/20/23 CHIKA CARPENTER During your visit today, we recorded the following information about you: Eda Castellanos 05/20/2023 10:13 AM Signed Please leave a voice mail at [phone] for spouse Lien for two appts for [...] Status:Closed by EDA CASTELLANOS on 05/21/23 Normal [facility] XR Knee AP and Lateral and M erchantson 05-19-2023 IMPRESSION: Al NASCIMENTO Tow Truck Dispatcher: ENOCH Transcribe Date/Time: May 19 2023 8:53A Dictated by : JIHAN MIX MD This examination was interpreted and the report reviewed and electronically signed by: JIHAN MIX MD on May 19 2023 8:54AM EST [facility] * * *Final Report* * * [...] No periprosthetic fracture or significant joint effusion. [facility] Provider, Sunny Jiang - 05/19/2023 * [...] significant joint effusion. IMPRESSION IMPRESSION: Stable TKA Tow Truck Dispatcher: PSCB Transcribe Date/Time: May 19 2023 8:53A Dictated by : JIHAN MIX MD This examination was interpreted and the report reviewed and electronically signed by: JIHAN MIX MD on May 19 2023 8:54AM EST [facility] XR Knee AP and Lateral and M erchantsOrdered By: Ccf Provider on 05-19-2023 [facility] CNOVon 05-16-2023 CNOV Office Visit (ORMDNA ) ROBERTO OSBORN ([id number]) 1960 M Date Time Provider Department 05/16/23 [...] possible loosening (more content not included)... Normal [facility] XR KNEE 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 L Ton [...] or significant joint effusion. IMPRESSION: Stable TKA Tow Truck Dispatcher: ENOCH Transcribe Date/Time: May 19 2023 8:53A Dictated by : JIHAN MIX MD This examination was interpreted and the report reviewed and electronically signed by: JIHAN MIX MD on May 19 2023 8:54AM EST [id number] [facility] XR Knee AP and Lateral and M erchantson 05-16-2023 Radiology Study observation (narrative) [facility] Anne 05-12-2023 CNPN Telephone (ORMDNA) ROBERTO OSBORN SR ([id number]) 1960 M Date Time Provider Department 05/12/23 CHIKA CARPENTER During your visit today, we recorded the following information about you: Eda Castellanos 05/12/2023 9:33 AM Signed Patient needs appt for left knee pain (old tka). He needs this Friday or next Friday if possible. Ok to offer Aliza if available. Please contact Lien (spouse) to schedule at her work [phone]. AramisClemente 05/12/2023 9:49 AM Signed Patient is [...] Status:Closed by CLEMENTE SELF on 05/12/23 Normal [facility] CREATINE KINASEon 04-24-2023 CK [Catalytic activity/Vol] [...] Office Visit (SANTIAGO ) ROBERTO OSBORN SR ([id number]) 1960 M Date Time Provider Department 12/06/22 [...] for Encounter Date Provider Department Center 12/06/2022 [id number] CARPENTER [facility] Letter Text Encounter Status:Closed by CHIKA CARPENTER on 12/16/22 [facility] 11-19-2022 CNPN Telephone (ORQ) ROBERTO OSBORN ([id number]) 1960 Date Time Provider Department 11/19/22 CHIKA [...] that same letter to be faxed to [phone]. Thank you! Dea [facility] 11/21/2022 9:55 AM Signed This was done on 11/20/22. Allergies As of Date: 11/19/2022 Noted Allergy Reaction CODEINE 07/18/2021 2 - Rash MORPHINE 10/26/2020 4 - Hives Date Reviewed: 10/27/2022 Reviewed by: Chiak Carpenter MD - Fully Assessed Reason for Visit: Patient Question [6424] Prescriptions as of 11/21/2022 - acetaminophen (TYLENOL) [...] knee [M25.561, G89.29] 10/02/2022 Encounter Status:Closed by [facility] 11/21/22 [facility] CNCOon 11-15-2022 CNCO Letter Text [facility] CNPNon 11-08-2022 CNPN Telephone (SANTIAGO) ROBERTO OSBORN SR ([id number]) 1960 M Date Time Provider Department 11/08/22 CHIKA CARPENTER During your visit today, we recorded the following information about you: Eda [facility] 11/08/2022 1:18 PM Signed Patient asking if he could have a return to work letter for light duty to begin on 11/18/22. If you agree, it would need to be faxed to [phone] ('s work), no cover sheet needed. Regla [...] Encounter Status:Closed by REGLA HIGGINS on 11/08/22 [facility] CNTHERAPYon 11-06-2022 CNTHERAPY OT/PT/Speech Visit (PTMDRG) ROBERTO OSBORN ([id number]) 1960 M Date Time Provider Department 11/06/22 8:00 AM TRE GOG Date Time Provider Department Center 11/06/2022 8:00 AM [id number], SCOTT PTMDRG [facility] Reason for Visit: Physical Therapy [...] as of 09/12/2022: no interactions 2. Normal [facility] CNTHERAPYon 10-30-2022 CNTHERAPY OT/PT/Speech Visit (PTMDRG) ROBERTO OSBORN ([id number]) 1960 M Date Time Provider Department 10/30/22 8:00 AM TRE GO PTMDRG Date Time Provider Department Center 10/30/2022 8:00 AM [id number], SCOTT PTMDRG [facility] Reason for Visit: PT Progress Note [...] Comments as of 09/12/2022: no interactions 09-12-22. [facility] CNTHERAPYon 10-28-2022 CNTHERAPY OT/PT/Speech Visit (PTMDRG) ROBERTO OSBORN SR ([id number]) 1960 M Date Time Provider Department 10/28/22 7:00 AM TOY CORESA PTMDRG Date Time Provider Department Center 10/28/2022 7:00 AM [id number], SUSAN PTMDRG [facility] Reason for Visit: Physical Therapy [503] [...] Comments as of 09/12/2022: no interactions 09-12-22. [facility] 10-25-2022 [facility] Office Visit (ORGARETH ) ROBERTO OSBORN SR ([id number]) 1960 M Date Time Provider Department 10/25/22 [...] Encounter Status:Closed by CHIKA CARPENTER on 10/27/22 [facility] CNTHERAPYon 10-24-2022 CNTHERAPY OT/PT/Speech Visit (PTMDRG) ROBERTO OSBORN ([id number]) 1960 M Date Time Provider Department 10/24/22 7:00 AM TRE GO PTMG Date Time Provider Department [place] 10/24/2022 7:00 AM [id number], SCOTT PTMDRG [facility] Reason for Visit: Physical Therapy [503] [...] Comments as of 09/12/2022: no interactions 09-12-22. [facility] CNTHERAPYon 10-21-2022 CNTHERAPY OT/PT/Speech Visit (PTMDRG) ROBERTO OSBORN SR ([id number]) 1960 M Date Time Provider Department 10/21/22 7:45 AM TOY COREAS Date Time Provider Department Center 10/21/2022 7:45 AM [id number] COREAS [facility] Reason for Visit: Physical Therapy [503] [...] Comments as of 09/12/2022: no interactions 2-2-23. [facility] CNTHERAPYon 10-16-2022 CNTHERAPY OT/PT/Speech Visit (PTMDRG) ROBERTO OSBORN ([id number]) 1960 M Date Time Provider Department 10/16/22 8:00 AM TRE GO PTMDRG Date Time Provider Department Center 10/16/2022 8:00 AM [id number], SCOTT PTMDRG [facility] Reason for [...] Comments as of 09/12/2022: no interactions 09-12-22. [facility] 10-15-2022 CNPN Telephone (SANTIAGO) LAWROBERTO Zonia SR ([id number]) 1960 M Date Time Provider Department 10/15/22 [...] Encounter Status:Closed by SG JUDD on 10/17/22 [facility] CNTHERAPYon 10-14-2022 CNTHERAPY OT/PT/Speech Visit (PTMDRG) ROBERTO OSBORN SR ([id number]) 1960 M Date Time Provider Department 10/14/22 7:00 AM TOY COREAS PTMDRG Date Time Provider Department Center 10/14/2022 7:00 AM [id number], SUSAN [facility] Reason for Visit: Physical Therapy [...] as of 09/12/2022: no interactions 2-2-23. Normal [facility] CNTHERAPYon 10-10-2022 CNTHERAPY OT/PT/Speech Visit (PTMDRG) ROBERTO OSBORN ([id number]) 1960 M Date Time Provider Department 10/10/22 11:15 AM AVA KEITA PTMDRG Date Time Provider Department Center 10/10/2022 11:15 AM [id number] KEITA PTMDRG [facility] Reason for Visit: Physical Therapy [...] Comments as of 09/12/2022: no interactions -10-03. [facility] CNTHERAPYon 10-02-2022 CNTHERAPY OT/PT/Speech Visit (PTMDRG) ROBERTO OSBORN SR ([id number]) 1960 M Date Time Provider Department 10/02/22 8:45 AM TRE GO PTMDRG Date Time Provider Department Center 10/02/2022 8:45 AM [id number], SCOTT PTMDRG [facility] Reason for Visit: PT Eval [747] [...] as of 09/12/2022: no interactions 2. Normal [facility] XR Knee AP and Lateral and M jean pierre 09-26-2022 IMPRESSION: Al NASCIMENTO Tow Truck Dispatcher: ENOCH Transcribe Date/Time: Sep 26 2022 1:59P Dictated by : JIHAN MIX MD This examination was interpreted and the report reviewed and electronically signed by: JIHAN MIX MD on Sep 26 2022 2:00PM EST [facility] * * *Final Report* * * [...] soft tissue emphysema. 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 [facility] Provider, Sunny Jiang - 09/26/2022 * [...] TKA is evident. IMPRESSION IMPRESSION: Stable TKA Tow Truck Dispatcher: PSCB Transcribe Date/Time: Sep 26 2022 1:59P Dictated by : JIHAN MIX MD This examination was interpreted and the report reviewed and electronically signed by: JIHAN MIX MD on Sep 26 2022 2:00PM EST [facility] XR Knee AP and Lateral and M erchantsOrdered By: Ccf Provider on 09-26-2022 [facility] CNOVon 09-25-2022 CNOV Office Visit (SANTIAGO ) ROBERTO ([id number]) 1960 M Date Time Provider Department 09/25/22 [...] arthroplasty, right [Z96.651] Order(s):CONSULT TO PHYSICAL THERAPY [9086] Order #: [id number]: 1 FUTURE Prescriptions as of 09/25/2022 - [...] Encounter Status:Closed by MATTHIEU ESPARZA on 09/25/22 [facility] XR KNEE 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 R Ton [...] Left TKA is evident. IMPRESSION: Stable TKA Tow Truck Dispatcher: PSCB Transcribe Date/Time: Sep 26 2022 1:59P Dictated by : JIHAN MIX MD This examination was interpreted and the report reviewed and electronically signed by: JIHAN IMX MD on Sep 26 2022 2:00PM EST [id number] [facility] XR Knee AP and Lateral and M erchantson 09-25-2022 Radiology Study observation (narrative) [facility] Anne 09-14-2022 CNPN Telephone (HCSIND) ROBERTO OSBORN SR ([id number]) 1960 M Date Time Provider Department 09/14/22 [...] Encounter Status:Closed by TRUPTI BAR on 09/14/22 [facility] Anne 09-12-2022 CNPN Telephone (ME2E) ROBERTO OSBORN SR ([id number]) 1960 M Date Time Provider Department 09/12/22 CHIKA CARPENTER ID2E During your visit today, we recorded the following information about you: FILIBERTO Villalobos 09/12/2022 10:31 AM Addendum [facility]. Pic of drainage uploaded in [employer]. Per Manjeet GARCIA, remove silverlon and use [...] Former smoker [Z87.891] 08/16/2022 Encounter Status:Closed by RNOY DOYLE on 09/12/22 [facility] Basic metabolic 2000 panelon 09-11-2022 Anion gap [Moles/Vol] 9 mmol/L Normal 9-18 [facility] Comment on above: Order Comment: Speci men Type: BLOOD SPECIMENOrdering Facility: [facility] Address: [address] [place] [address] Performed By: #### 2 4321-2 ####[facility] LABORATORYCLIA [id number] [place] [address] [place] Calcium [Mass/Vol] 8.8 mg/dL Normal 8.5-10.2 [facility] Comment on above: Order Comment: Speci men Type: BLOOD SPECIMENOrdering Facility: [facility] Address: [address] [place] [address] Performed By: #### 2 4321-2 ####BO[facility] LABORATORYCLIA [id number] [place] [address] [place] Chloride [Moles/Vol] 103 mmol/L Normal 97-105 [facility] Comment on above: Order Comment: Speci men Type: BLOOD SPECIMENOrdering Facility: [facility] Address: [address] [place] [address] Performed By: #### 2 4321-2 ####BOONE LABORATORYCLIA [id number] [place] [address] [place] CO2 [Moles/Vol] 27 mmol/L Normal 22-30 [facility] Comment on above: Order Comment: Speci men Type: BLOOD SPECIMENOrdering Facility: [facility] Address: [address] [place] [address] Performed By: #### 2 4321-2 ####BOONE LABORATORYCLIA [id number] [place] [address] [place] Creatinine [Mass/Vol] 0.54 mg/dL Low 0.73-1.22 [facility] Comment on above: Order Comment: Speci men Type: BLOOD SPECIMENOrdering Facility: [facility] Address: [address] [place] [address] Performed By: #### 2 4321-2 ####BOONE LABORATORYCLIA [id number] [place] [address] [place] ESTIMATED GLOMERULAR FILTRATION RATE 112 mL/min/1.73m??? Normal >=60 [facility] Comment on above: Order Comment: Vera grant Type: BLOOD SPECIMENOrdering Facility: [facility] Address: [address] [id number] Result Comment: Snehal mated Glomerular Filtration Rate [...] Performed By: #### 2 4321-2 ####BOONE LABORATORYCLIA [id number] [place] [address] [place] Glucose [Mass/Vol] 116 mg/dL High 74-99 [facility] Comment on above: Order Comment: Vera grant Type: BLOOD SPECIMENOrdering Facility: [facility] Address: [address] [address] Result Comment: The [place] Diabetes Association (ADA) provides guidance for cutoff [...] Standards of Medical Care in Diabetes 2016, [place] Diabetes Association. Diabetes Care. 2016.39(Suppl 1). Performed By: #### 2 4321-2 ####[facility] LABORATORYCLIA [id number] [place] [id number] [place] Potassium [Moles/Vol] 3.7 mmol/L Normal 3.7-5.1 [facility] Comment on above: Order Comment: Vera grant Type: BLOOD SPECIMENOrdering Facility: [facility] Address: [address] Performed By: #### 2 4321-2 ####BOONE LABORATORYCLIA [id number] [address] STATES [facility] Sodium [Moles/Vol] 139 mmol/L Normal 136-144 [facility] Comment on above: Order Comment: Speci men Type: BLOOD SPECIMENOrdering Facility: [facility] Address: [address] [place] [address] Performed By: #### 2 4321-2 ####BOONE LABORATORYCLIA [id number] [address] Urea nitrogen [Mass/Vol] 6 mg/dL Low 9-24 [facility] Comment on above: Order Comment: Speci men Type: BLOOD SPECIMENOrdering Facility: [facility] Address: [address] [place] [address] Performed By: #### 2 4321-2 ####BOONE LABORATORYCLIA [id number] [address] OF [facility] CASE MANAGEMon 09-11-2022 CASE MANAGEM HNO ID: [id number] Author: Taylor Boyce RN Service: ? Author Type: Registered Nurse Type: Care Mgt Progress Note Filed: 09/11/2022 2:24 PM Note Text: CARE MANAGEMENT DISCHARGE NOTE SERVICE DATE: 09/11/2022 SERVICE TIME: 2:23 PM LOS: 0 days Admission Date: 09/10/2022 DISCHARGE ARRANGEMENT (list agency and phone number) Discharge Arrangement: Home with Home Health Provider Name: [facility] CAREGIVER ASSESSMENT: Caregiver is ready, willing and able to meet the patient's needs as recommended by the inter-professional team:: Yes Patient's transition needs and plan for meeting these needs: Home PT HANDOFF COMMUNICATION: Handoff to: Primary Care Physician Primary Care Physician Name/Phone: Dr. Timothy Correa- [phone] TRANSPORTATION ARRANGEMENTS: Transportation Arrangements: Car- to transport Discharge Information Row Name Admission (Current) from 09/10/[address] [facility] Health Care Agency [facility] Start of Care -- Within 24- 48 hours Needs Prior to Discharge: Ready for Discharge Discharge order written for today. [facility] will be seeing the patient for Home PT with a start of care within 24- 48 hours. Notified [facility] of the patients discharge home today. SIGNATURE: Taylor Boyce RN PATIENT NAME: Roberto Osborn SR DATE: September 11, 2022 TIME: 2:23 PM PAGER/CONTACT #: [phone] [facility] CASE MANAGEM HNO ID: [id number] Author: Taylor Boyce RN Service: ? Author Type: Registered Nurse Type: Care Mgt Progress Note Filed: 09/11/2022 11:11 AM Note Text: CARE MANAGEMENT PROGRESS NOTE SERVICE DATE: 09/11/2022 SERVICE TIME: 11:10 AM LOS: 0 days Needs Prior to Discharge: To Be Determined [facility] able to accept. CM department will continue to follow for DC needs. SIGNATURE: Taylor Boyce RN PATIENT NAME: Roberto Osborn SR DATE: September 11, 2022 TIME: 11:10 AM PAGER/CONTACT #: [phone] [facility] CASE MGT INIT ASSESon 2022 CASE MGT INIT [facility] HNO ID: [id number] Author: Taylor Boyce RN Service: ? Author Type: Registered Nurse Type: Care Mgt Initial Assessment Filed: 09/11/2022 10:22 AM Note Text: CARE MANAGEMENT: ASSESSMENT AND DISCHARGE PLAN SERVICE DATE: September 11, 2022 SERVICE TIME: 10:21 AM PRIMARY CARE PHYSICIAN: Timothy Correa MD Primary Contact: Extended Emergency Contact Information Primary Emergency Contact: Lien Osborn Address: [address] [place] [phone] Relation: Spouse ADMISSION STATUS: Extended Recovery Insurance Provider: BLUE CARD PPO OOS NEEDS PRIOR TO DISCHARGE Needs Prior to Discharge: To Be Determined POTENTIAL TRANSITION PLANS To Be Determined Based on clinical judgement, Care Management will address the following needs: Functional Patient's perception of need for this admission: Elective surgery ADVANCE DIRECTIVES Current Advance Directive: None Cash Person Attempted to Assist with AD Completion: Yes [...] discharge within 30 days: No PATIENT SCREEN 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 Stated Goals: To have reduction in [...] Completely I feel financially burdened by my xch-gc-kiubmt expenses for my prescription medication:: 0 - Disagree Completely Risk Score: 0 Patient is categorized as: Low risk < 2 SOCIAL Living Arrangements: Home Lives With: Spouse Financial Resources: Employed Supportive Patient Contact:: Yes Contact Resources: Family Family Name/Phone: Javi Osborn Is Patient Psychosocially Complex?: No Contact Resources: Family Family Name/Phone: Javi Osborn Health Literacy How often do you need [...] bed) Has the Patient Been in a Correction Facility in the Past 30 days?: No No behavioral/cognitive discharge barriers identified at this time. FREEDOM OF CHOICE EXPLAINED: [place] of Choice Given: Yes Level of Care [...] PT recommendations with the patient, referral to [facility]. CM department will continue to follow for DC needs. SIGNATURE: Taylor (more content not included)... Normal [facility] CBC panel Auto (Bld)on 09-11 Erythrocyte distribution width (RBC) [Ratio] 13.9 % Normal 11.5-15.0 [facility] Comment on above: Order Comment: Vera grant Type: BLOOD SPECIMENOrdering Facility: [facility] Address: [address] [place] [address] Performed By: #### 5 8410-2 ####[facility] LABORATORYCLIA [id number] [place] [address] [place] Hematocrit (Bld) [Volume fraction] 35.7 % Low 39.0-51.0 [facility] Comment on above: Order Comment: Vera grant Type: BLOOD SPECIMENOrdering Facility: [facility] Address: [address] [address] Performed By: #### 5 8410-2 ####[facility] LABORATORYCLIA [id number] [place] [address] [place] Hemoglobin (Bld) [Mass/Vol] 12.0 g/dL Low 13.0-17.0 [facility] Comment on above: Order Comment: Speci men Type: BLOOD SPECIMENOrdering Facility: [facility] Address: [address] [place] [address] Performed By: #### 5 8410-2 ####BO[facility] LABORATORYCLIA [id number] [address] MCH (RBC) [Entitic mass] 29.7 pg Normal 26.0-34.0 [facility] Comment on above: Order Comment: Speci men Type: BLOOD SPECIMENOrdering Facility: [facility] Address: [address] [place] [address] Performed By: #### 5 8410-2 ####BO[facility] LABORATORYCLIA [id number] [address] MCHC (RBC) [Mass/Vol] 33.6 g/dL Normal 30.5-36.0 [facility] Comment on above: Order Comment: Speci men Type: BLOOD SPECIMENOrdering Facility: [facility] Address: [address] [place] [address] Performed By: #### 5 8410-2 ####BO[facility] LABORATORYCLIA [id number] [address] MCV (RBC) [Entitic vol] 88.4 fL Normal 80.0-100.0 [facility] Comment on above: Order Comment: Speci men Type: BLOOD SPECIMENOrdering Facility: [facility] Address: [address] [place] [address] Performed By: #### 5 8410-2 ####BO[facility] LABORATORYCLIA [id number] [address] Nucleated RBC (Bld) [#/Vol] 10*3/uL Normal <0.01 [facility] Comment on above: Order Comment: Speci men Type: BLOOD SPECIMENOrdering Facility: [facility] Address: [address] [place] [address] Performed By: #### 5 8410-2 ####[facility] LABORATORYCLIA [id number] [place] [address] [place] Platelet mean volume (Bld) [Entitic vol] 9.3 fL Normal 9.0-12.7 [facility] Comment on above: Order Comment: Speci men Type: BLOOD SPECIMENOrdering Facility: [facility] Address: [address] [place] [address] Performed By: #### 5 8410-2 ####[facility]ORYCLIA [id number] [address] [place] Platelets (Bld) [#/Vol] 287 10*3/uL Normal 150-400 [facility] Comment on above: Order Comment: Speci men Type: BLOOD SPECIMENOrdering Facility: [facility] Address: [address] [place] [address] Performed By: #### 5 8410-2 ####[facility]ORYCLIA [id number] [address] [place] RBC (Bld) [#/Vol] 4.04 10*6/uL Low 4.20-6.00 [facility] Comment on above: Order Comment: Speci men Type: BLOOD SPECIMENOrdering Facility: [facility] Address: [address] [place] [address] Performed By: #### 5 8410-2 ####[facility]ORYCLIA [id number] [address] [place] WBC (Bld) [#/Vol] 11.09 10*3/uL High 3.70-11.00 [facility] Comment on above: Order Comment: Speci men Type: BLOOD SPECIMENOrdering Facility: [facility] Address: [address] [place] [address] Performed By: #### 5 8410-2 ####[facility]ORYCLIA [id number] [address] [place] CNCOon 09-11-2022 CNCO Letter Text Normal [facility] CNDSon 09-11-2022 CNDS HNO ID: [id number] Author: Matthieu Esparza PA-C Service: Orthopaedic Surgery Author Type: Physician Corporate Travel Counselor Type: Discharge Summary Filed: 09/11/2022 12:42 PM [...] These instructions explain what you or your career technical education instructor need to do to continue your care at home or at another healthcare facility Please go over these instructions with your nurse and career technical education instructor. If you are not sure about something, [...] or flu-like symptoms (more content not included)... [facility] 09-11-2022 [facility] Telephone (HCSIND) ROBERTO OSBORN SR ([id number]) 1960 M Date Time Provider Department 09/11[facility] your visit today, we recorded the following information about you: Sanaz Dean [facility] 09/11/2022 11:22 AM Signed Welcome Home [...] Yes: Location: , Date received: 08/10/22 e. [facility] will be providing your care, are you agreeable to starting these services? YES (yes or no) f. Do you have any upcoming appointments in the next few days, or restrictions to your schedule? NO g. Caregiver: Patient is able to manage care independently h. Confirmed Visited Location and preferred #: [phone] [place] [address] Please keep our your medications both over the counter and prescribed out for the home care to review, your hospital discharge instructions and write down any questions you might have. In order to maintain a safe environment for our caregivers, [facility] requires any animals or weapons present in the home be located in a secured location. Our clinicians will call you the night before or the morning of the appointment. Their # may come up restricted but they'll leave a VM for you. In case you have any questions or concerns in the meantime, our # is [phone], option 5 Thank you for your time [...] Pure hypercholesterolemi (more content not included)... Normal [facility] CONSULT PROGon 09-11-2022 CONSULT PROG HNO ID: [id number] Author: Parris Welsh MD Service: General Internal [...] 11, 2022 TIME: 8:57 AM PAGER: Normal [facility] THERAPY NTon 09-11-2022 THERAPY NT HNO ID: [id number] Author: Vamshi Castellon OT/L Service: ? 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 [facility] THERAPY NT HNO ID: [id number] Author: Lynette Persaud PT Service: Physical Therapy Author Type: Physical Therapist Type: Therapy (PT/OT/Speech/Resp) Filed: 09/11/2022 10:14 AM Note Text: Physical Therapy Treatment SERVICE DATE: 09/11/2022 SERVICE TIME: 834 to 924 ROOM: [id number] Recommended Discharge Disposition: Home PT Recommended Discharge [...] terminal stanc (more content not included)... Normal [facility] ALLIED HEALTHon 09-10-2022 ALLIED HEALTH HNO ID: [id number] Author: Chaplain Earle Service: Spiritual Care Author Type: Network Services Project Manager Type: Allied Health Filed: 09/10/2022 8:18 PM Note Text: SPIRITUAL CARE PROGRESS NOTE SERVICE DATE: 09/10/2022 SERVICE TIME: 6:00-6:01pm This warehouse unloader stopped by the patient's room to provide spiritual care, but the patient did not desire it at the time. To contact the Spiritual Care Department: Please call [phone]. SIGNATURE: Chaplain Earle PATIENT NAME: Roberto Osborn SR DATE: September 10, 2022 TIME: 8:17 PM PAGER/CONTACT #: [phone] [facility] ALLIED HEALTH HNO ID: [id number] Author: GERMAINE Sparrow Service: Radiology Author Type: [...] GERMAINE Sparrow September 10, 2022 10:39 AM [facility] ANES POSTPROC EVALon 023 ANES POSTPROC EVAL HNO ID: [id number] Author: Adryan Payton MD Service: Anesthesiology Author Type: Anesthesiologist Type: Anesthesia Postprocedure Evaluation Filed: 09/10/2022 12:48 PM Note Text: POST ANESTHESIA EVALUATION NOTE : 1960 Procedure Summary Date: 09/10/22 Room / Location: ID OR / ID OR Anesthesia Start: 740 Anesthesia Stop: 1013 [...] September 10, 2022 TIME: 12:48 PM CSN: [id number] [facility] ANES PRE-OPon 09-10-2022 ANES PRE-OP HNO ID: [id number] Author: Adryan Payton MD Service: Anesthesiology Author Type: Anesthesiologist Type: Anesthesia Preprocedure Evaluation Filed: 09/10/2022 7:06 AM Note Text: ANESTHESIOLOGY DAY OF SURGERY NOTE : 1960 Procedure Information Date/Time: 09/10/22 0745 Procedure: ROBOTIC ASSISTED TOTAL KNEE ARTHROPLASTY (Right: Knee) Location: ID OR / ID OR Surgeons: Chika Carpenter MD Estimated body [...] September 10, 2022 TIME: 7:04 AM CSN: [id number] [facility] BRIEF OP NOTon 09-10-2022 BRIEF OP NOT HNO ID: [id number] Author: Chika Carpenter MD Service: Orthopaedic Surgery Author Type: Physician Type: Brief Op Note Filed: 09/11/2022 7:52 AM Note Text: TOTAL KNEE ARTHROPLASTY BRIEF OPERATIVE / PROCEDURE NOTE LOG ID: [id number] Surgery/Procedure Date: 09/10/2022 Incision/Procedure Start Time: 8:19 AM Incision Close/Procedure End Time: 10:05 AM Surgeon(s)/Proceduralis t(s) and Corporate Travel Counselor(s): Surgeon(s) and Role: * Chika Carpenter MD - Primary Nurse Practitioner: Indio De Oliveira APRN.TOP WADDY Physician Corporate Travel Counselor: Anahi Seay PA-C; Regla Higgins PA-C Procedure(s): [...] Implant Name Type Inv. Item Serial No. Laundry Operator Finishing Lot No. LRB No. Used Action COMPONENT TRITANIUM 35MM METAL 10MM PATELLAR ASYMMETRIC KNEE - [id number] Joint - Knee COMPONENT TRITANIUM 35MM METAL 10MM PATELLAR ASYMMETRIC KNEE [facility] [id number] Right 1 Implanted INSERT TRIATHLON 6 9MM TIBIAL BEARING CONDYLAR STABILIZE STERILE KNEE - [id number] Joint - Knee INSERT TRIATHLON 6 9MM TIBIAL BEARING CONDYLAR STABILIZE STERILE KNEE [facility] [id number] Right 1 Implanted BASEPLATE TRIATHLON 6 TRITANIUM [id number] TIBIAL 4 CRUCIFORM PEG KEEL KNEE - [id number] Joint - Knee BASEPLATE TRIATHLON 6 TRITANIUM [id number] TIBIAL 4 CRUCIFORM PEG KEEL KNEE [facility] [id number] Right 1 Implanted COMPONENT TRIATHLON 5 PA FEMORAL CRUCIATE RETAIN BEAD KNEE RIGHT - [id number] Joint - Knee COMPONENT TRIATHLON 5 PA FEMORAL CRUCIATE RETAIN BEAD KNEE RIGHT [facility] [id number] Right 1 Implanted Bearing Surface: Fixed Fixation: Cementless SSI Risk Factors: DM Constraint: Cruciate Retaining Other: None Pre-Op/Pre-Procedure Diagnosis: Primary osteoarthritis of right knee [M17.11] Post-Op/Post-Procedure Diagnosis: Primary osteoarthritis of right knee [M17.11] Weight Bearing Status: Weight Bearing As Tolerated SIGNATURE: Chika Carpenter MD PATIENT NAME: Roberto Osborn DATE: September 10, 2022 TIME: 10:01 AM [facility] CONSULTon 09-10-2022 CONSULT HNO ID: [id number] Author: Parris Welsh MD Service: General Internal [...] leg swel (more content not included)... Normal [facility] CT KNEE WO IVCON RTon 2022 CT KNEE WO IVCON RT * * *Final Report* * * DATE OF EXAM: Sep 10 2022 6:57AM [facility] - CT KNEE WO IVCON RT / PROCEDURE REASON: M17.11-Primary osteoarthritis of right knee * * * * Physician Interpretation * * * * EXAMINATION: CT KNEE WO IVCON RT CLINICAL HISTORY: 62 years old Male with Primary osteoarthritis of right knee. WILMER Robotic total knee replacement [facility] CT TECHNIQUE: CT RIGHT knee without contrast [place] [facility] protocol, knee 1 mm axial slices, hip [...] images for the purposes of presurgical planning. Tow Truck Dispatcher: ENOCH Transcribe Date/Time: Sep 11 2022 6:28P Dictated by : GERI FABIAN DO This examination was interpreted and the report reviewed and electronically signed by: GERI FABIAN DO on Sep 11 2022 6:35PM EST [id number] Normal [facility] Hematocrit Auto (Bld) [Volum e fraction]on 09-10-2022 Hematocrit (Bld) [Volume fraction] 36.0 % Low 39.0-51.0 [facility] Comment on above: Order Comment: Specelena grant Type: BLOOD SPECIMENOrdering Facility: [facility] Address: [address] [place], [place] [address] Performed By: #### 4 544-3, 718-7 ####[facility] LABORATORYCLIA [id number] [place] [id number] [facility] Hgb Bld-mCncon 09-10-2022 Hemoglobin (Bld) [Mass/Vol] 12.1 g/dL Low 13.0-17.0 [facility] Comment on above: Order Comment: Specelena grant Type: BLOOD SPECIMENOrdering Facility: [facility] Address: [address] [place] [address] Performed By: #### 4 544-3, 718-7 ####[facility] LABORATORYCLIA [id number] [place] [id number] [place] NURSING PROGon 09-10-2022 NURSING PROG HNO ID: [id number] Author: Lorie Bolden RN Service: Nursing Author [...] completion of procedure. Report to Leonel Cary [facility] OPERATIVE NOon 09-10-2022 OPERATIVE NO HNO ID: [id number] Author: Chika Carpenter MD Service: Orthopaedic Surgery Author Type: Physician Type: Operative Report Filed: 09/11/2022 7:52 AM Note Text: [facility] OPERATIVE REPORT PATIENT NAME: Roberto Osborn SR CSN: [id number] LOG ID: [id number] Surgery Date: 09/10/2022 Surgeon(s) and Corporate Travel Counselor(s): Surgeon(s) and Role: * Chika Carpenter MD - Primary- surgeon * Regla GARCIA -Ager Operator No qualified orthopedic resident available. The PA [...] the device, and deep closure. The PA /STENCILING MACHINE TENDER performed the closure of the subcutaneous tissue [...] Implant Name Type Inv. Item Serial No. Laundry Operator Finishing Lot No. LRB No. Used Action COMPONENT TRITANIUM 35MM METAL 10MM PATELLAR ASYMMETRIC KNEE - [id number] Joint - Knee COMPONENT TRITANIUM 35MM METAL 10MM PATELLAR ASYMMETRIC KNEE [facility] [id number] Right 1 Implanted INSERT TRIATHLON 6 9MM TIBIAL BEARING CONDYLAR STABILIZE STERILE KNEE - [id number] Joint - Knee INSERT TRIATHLON 6 9MM TIBIAL BEARING CONDYLAR STABILIZE STERILE KNEE [facility] [id number] Right 1 Implanted BASEPLATE TRIATHLON 6 TRITANIUM [id number] TIBIAL 4 CRUCIFORM PEG KEEL KNEE - [id number] Joint - Knee BASEPLATE TRIATHLON 6 TRITANIUM [id number] TIBIAL 4 CRUCIFORM PEG KEEL KNEE [facility] [id number] Right 1 Implanted COMPONENT TRIATHLON 5 PA FEMORAL CRUCIATE RETAIN BEAD KNEE RIGHT - [id number] Joint - Knee COMPONENT TRIATHLON 5 PA FEMORAL CRUCIATE RETAIN BEAD KNEE RIGHT [facility] [id number] Right 1 Implanted OPERATIVE INDICATIONS: [...] room; the p (more content not included)... [facility] SURGICAL PATHOLOGYon 023 CASE REPORT [facility] Comment on above: Order Comment: Speci men Type: TISSUE SPECIMENOrdering Facility: [facility] Address: [address] [place], [place] [id number] Result Comment: [facility] Pathology Report Case: [id number] Authorizing Provider: Chika Carpenter MD Collected: 09/10/2022 08:32 AM Ordering Location: [facility] Surgery Received: 09/10/2022 11:44 AM Pathologist: Timothy Dietz MD Specimen: KNEE ARTHROPLASTY RIGHT Performed By: #### S ####[facility] LABCLIA [id number] [address] CLINICAL HISTORY [facility] Comment on above: Order Comment: Emilyi men Type: TISSUE SPECIMENOrdering Facility: [facility] Address: [address] [place], [place] [address] Result Comment: Pre- op diagnosis: Primary osteoarthritis of right knee [M17.11] Performed By: #### S ####[facility] LABCLIA [id number] [address] FINAL DIAGNOSIS [facility] Comment on above: Order Comment: Speci men Type: TISSUE SPECIMENOrdering Facility: [facility] Address: [address] [place], [place] [address] Result Comment: Righ t knee, arthroplasty: - Degenerative joint disease. Performed By: #### S ####[facility] LABCLIA [id number] [address] [place] FINAL PERFORMING LAB [facility] Comment on above: Order Comment: Speci men Type: TISSUE SPECIMENOrdering Facility: [facility] Address: [address] [place] [address] Result Comment: Diag nostic interpretation performed at [place] [address] CLIA# [id number] Correctional Corporal: Oscar Goodson M.D. Performed By: #### S ####[facility] LABIA [id number] [address] OF [facility] GROSS DESCRIPTION Normal [facility] Comment on above: Order Comment: Speci men Type: TISSUE SPECIMENOrdering Facility: [facility] Address: [address] [place] [address] Result Comment: A. K NEE ARTHROPLASTY RIGHT Received in formalin, labeled as right knee arthroplasty are multiple segments of bone that aggregate to approximately 13.0 x 10.4 x 2.6 cm. One portion is recognizable as the tibial plateau and demonstrates minimal eburnation and moderate cartilage roughening. Separate fragments consistent with femoral condyles also show evidence of cartilage eburnation and roughening. Steel Floor Pan Placing Supervisor sections are submitted as follows: A1 2 sections of condyles following decalcification A2 2 sections of tibial plateau following decalcification CG/MLG September 10, 2022 3:13 PM Gross examination performed at [facility], [address] [place] [address] Performed By: #### S ####[facility] LABIA [id number] [address] [place] THERAPY NTon 09-10-2022 THERAPY NT HNO ID: [id number] Author: Lynette Persaud, LORY Service: Physical Therapy Author Type: Physical Therapist Type: Therapy (PT/OT/Speech/Resp) Filed: 09/10/2022 4:21 PM Note Text: Physical Therapy Evaluation SERVICE DATE: 09/10/2022 SERVICE TIME: 1525 to 1603 ROOM: [id number] Recommended Discharge Disposition: Home PT Recommended Discharge [...] limited postural s (more content not included)... [facility] XR KNEE 2V AP/LAT RTon [...] the joint placement without evidence of complication Tow Truck Dispatcher: ENOCH Transcribe Date/Time: Sep 10 2022 12:40P Dictated by : TRAY BARKER MD This examination was interpreted and the report reviewed and electronically signed by: TRAY BARKER MD on Sep 10 2022 12:42PM EST [id number] [facility] CNPN Telephone (WebChaletMDNA) LAWROBERTO A ([id number]) 1960 M Date Time Provider Department 09/09/22 CHIKA CARPENTER During your visit today, we recorded the following information about you: Eda [facility] 09/09/2022 1:25 PM Signed [...] suggestions on what to do? Eda [facility] 09/09/2022 2:48 PM Signed [...] knee [M17.11] Order(s):CT KNEE WO IVCON RT [[id number]] Order #: [id number] FUTURE CT KNEE WO IVCON RT [[id number]] Order #: [id number] #:[id number] Prescriptions as of 02/12/2023 - acetaminophen (TYLENOL) [...] Status:Closed by EDA CASTELLANOS on 02/12/23 Normal [facility] CT KNEE WO IVCON RTon 2022 CT KNEE WO IVCON RT * * *Final Report* * * DATE OF EXAM: Sep 07 2022 8:29AM [facility] - CT KNEE WO IVCON RT / PROCEDURE REASON: multiple diagnoses * * * * Physician Interpretation * * * * EXAM: CT KNEE WO IVCON RT HISTORY: Primary osteoarthritis of right knee Preop testing TECHNIQUE: CT right knee without contrast ([facility] CT protocol) CT Radiation dose: Integrated Dose-length product (DLP) for this visit = 859 mGy*cm. CT Dose Reduction Employed: Automated exposure control(AEC) and iterative recon COMPARISON: FINDINGS: Osteoarthritis, most severe in the medial joint compartment. Joint effusion. No acute abnormality at the hip and ankle. There are bilateral fat-containing inguinal hernias. . IMPRESSION: Right knee osteoarthritis, preoperative [facility] CT protocol for robotic assisted total joint replacement. Tow Truck Dispatcher[facility] Transcribe Date/Time: Sep 08 2022 12:39P Dictated by : JIHAN MIX MD This examination was interpreted and the report reviewed and electronically signed by: JIHAN MIX MD on Sep 08 2022 12:41PM EST [id number] Normal [facility] SARS-CoV-2 RNA Resp Ql MALACHI+p robeon 09-07-2022 SARS-CoV-2 (COVID-19) RNA MALACHI+probe Ql (Resp) COVID 19 RESULT: SARS-CoV-2 (Agent of COVID-19) Not Detected by RT-PCR or equivalent method. This test was developed and its performance characteristics determined by [facility]'s Regla Cheng [facility] Pathology and Laboratory Medicine [place]. This test has been authorized by FDA under an Emergency Use Authorization (EUA). This test has been validated in accordance with the FDA's Guidance Document Policy for Diagnostics Testing in Laboratories Certified to Perform High Complexity Testing under CLIA prior to Emergency use Authorization for Coronavirus Disease 2019 during the Public Health Emergency issued on October 09, 2019. Test performed by [facility], [facility] Pathology and Laboratory Medicine [place], [facility] [place] [address]. Normal [facility] Comment on above: Performed By: #### 9 4500-6 ####[facility] LABCLIA [id number] [place] [address] [place] SELF CHECK COVIDon 3 SARS-CoV-2 (COVID-19) RNA MALACHI+probe Ql (Resp) SARS-CoV-2 (Agent of COVID-19) Not Detected by RT-PCR or equivalent method. Not Detected [facility] CNPHolly 09-03-2022 CNPN Telephone (ORMDNA) ROBERTO OSBORN ([id number]) 1960 Date Time Provider Department 09/03/22 CHIKA CARPENTER ORGARETH During your visit today, we recorded the following information about you: Clemente Self 09/03/2022 3:19 PM Signed Type of form: Long-term Disability Form received via walk in from Dianne When form is completed, Fax form to [phone] Form has been forwarded to [facility] Dianne is wanting to case picker the completed forms once they have [...] Status:Closed by EDA CASTELLANOS on 09/09/22 Normal [facility] Anne 08-22-2022 CNPN Telephone (ORMDNA) ROBERTO OSBORN SR ([id number]) 1960 M Date Time Provider Department 08/22/22 CHIKA CARPENTER ORGARETH During your visit today, we recorded the following information about you: Eda [facility] 08/22/2022 3:19 PM Signed [...] [Z01.812, Z20.822] Order(s):CT KNEE WO IVCON RT [[id number]] Order #: [id number] FUTURE SELF CHECK COVID [SQHCCOVD] Order #: [id number]. #:[id number] Prescriptions as of 02/07/2023 - acetaminophen (TYLENOL) [...] by EDA CASTELLANOS on 02/07/23 Luis Daniel [facility] Anne 08-20-2022 KATIE Telephone (ME2E) ROBERTO OSBORN SR ([id number]) 1960 M Date Time Provider Department 08/20/22 CHIKA CARPENTER During your visit today, we recorded the following information about you: FILIBERTO Villalobos 08/20/2022 4:02 PM Signed TOTAL JOINT COMPLETE CARE PROGRAM PRE-OPERATIVE TEACHING Service Date: 08/20/2022 Service Time: 4:00 PM Date of : 1960 Gender: male Date of Surgery: 09/10/22 Procedure: Right Total Knee Replacement Complete Care Program was discussed with the patient: Futures Trader Identification: Patient identified a career technical education instructor to help when discharged to home: spouse [...] Education Binder: Yes Plans discharge home with [facility]. SIGNATURE: FILIBERTO Villalobos PATIENT NAME: Roberto Osborn [...] Status:Closed by RONY DOYLE on 08/20/22 Normal [facility] Basic metabolic 2000 panelon 08-16-2022 Anion gap [Moles/Vol] 11 mmol/L Normal 9-18 [facility] Comment on above: Order Comment: Speci men Type: BLOOD SPECIMENOrdering Facility: [facility] Address: [address] [place] [address] Performed By: #### 2 276-4, 18039-6, 39813-7 ####[facility] LABORATORYCLIA [id number] [place] [address] [place] Calcium [Mass/Vol] 9.2 mg/dL Normal 8.5-10.2 [facility] Comment on above: Order Comment: Speci men Type: BLOOD SPECIMENOrdering Facility: [facility] Address: [place] [address] Performed By: #### 2 276-4, 91923-3, 20951-6 ####[facility] LABORATORYCLIA [id number] [address] OF [facility] Chloride [Moles/Vol] 101 mmol/L Normal 97-105 [facility] Comment on above: Order Comment: Speci men Type: BLOOD SPECIMENOrdering Facility: [facility] Address: [address] [place] [address] Performed By: #### 2 276-4, 67837-6, 11206-7 ####[facility] LABORATORYCLIA [id number] [place] [address] [place] CO2 [Moles/Vol] 25 mmol/L Normal 22-30 [facility] Comment on above: Order Comment: Speci men Type: BLOOD SPECIMENOrdering Facility: [facility] Address: [address] [place] [address] Performed By: #### 2 276-4, 90530-0, 94662-0 ####[facility] LABORATORYCLIA [id number] [address] STATES OF [facility] Creatinine [Mass/Vol] 0.56 mg/dL Low 0.73-1.22 [facility] Comment on above: Order Comment: Speci men Type: BLOOD SPECIMENOrdering Facility: [facility] Address: [address] [place] [address] Performed By: #### 2 276-4, 03846-4, 44696-8 ####[facility] LABORATORYCLIA [id number] [address] OF [facility] ESTIMATED GLOMERULAR FILTRATION RATE 111 mL/min/1.73m??? Normal >=60 [facility] Comment on above: Order Comment: Speci men Type: BLOOD SPECIMENOrdering Facility: [facility] Address: [address] [place] [address] Result Comment: Snehal mated Glomerular Filtration Rate [...] actual GFR. Performed By: #### 2 276-4, 08754-1, 19476-9 ####[facility] LABORATORYCLIA [id number] [place] [address] [place] Glucose [Mass/Vol] 140 mg/dL High 74-99 [facility] Comment on above: Order Comment: Vera grant Type: BLOOD SPECIMENOrdering Facility: [facility] Address: [address] [place], [place] [address] Result Comment: The [place] Diabetes Association (ADA) provides guidance for cutoff [...] Standards of Medical Care in Diabetes 2016, [place] [employer] Association. Diabetes Care. 2016.39(Suppl 1). Performed By: #### 2 276-4, 02588-4, 39926-0 ####[facility] LABORATORYCLIA [id number] [place] [id number] [place] Potassium [Moles/Vol] 4.3 mmol/L Normal 3.7-5.1 [facility] Comment on above: Order Comment: Vera [facility] Type: BLOOD SPECIMENOrdering Facility: [facility] Address: [address] [place] [address] Performed By: #### 2 276-4, 57747-8, 63127-6 ####[facility] LABORATORYCLIA [id number] [place] [address] [place] Sodium [Moles/Vol] 137 mmol/L Normal 136-144 [facility] Comment on above: Order Comment: Speci men Type: BLOOD SPECIMENOrdering Facility: [facility] Address: [address] [facility] [place] [address] Performed By: #### 2 276-4, 91008-3, 60881-8 ####[facility] LABORATORYCLIA [id number] [address] STATES [facility] Urea nitrogen [Mass/Vol] 12 mg/dL Normal 9-24 [facility] Comment on above: Order Comment: Speci men Type: BLOOD SPECIMENOrdering Facility: [facility] Address: [address] [place] [address] Performed By: #### 2 276-4, 16115-6, 56536-9 ####[facility] LABORATORYCLIA [id number] [address] [place] Anion gap [Moles/Vol] 11 mmol/L 9 - 18 mmol/L [facility] Calcium [Mass/Vol] 9.2 mg/dL 8.5 - 10. 2 mg/dL [facility] Chloride [Moles/Vol] 101 mmol/L 97 - 10 5 mmol/L [facility] CO2 [Moles/Vol] 25 mmol/L 22 - 30 mmol/L [facility] Creatinine [Mass/Vol] 0.56 mg/dL Low 0.73 - 1.22 mg/dL [facility] Estimated Glomerular Filtration Rate 111 mL/min/1.73m >=60 mL/min/1.73m [facility] Glucose [Mass/Vol] 140 mg/dL High 74 - 99 mg/dL [facility] Potassium [Moles/Vol] 4.3 mmol/L 3.7 - 5.1 mmol/L [facility] Sodium [Moles/Vol] 137 mmol/L 136 - 144 mmol/L [facility] Urea nitrogen [Mass/Vol] 12 mg/dL 9 - 24 mg/dL [facility] CBC W Auto Differential pane l (Bld)on 08-16-2022 Basophils (Bld) [#/Vol] 0.03 10*3/uL Normal <0.11 [facility] Comment on above: Order Comment: Speci men Type: BLOOD SPECIMENOrdering Facility: [facility] Address: [address] [place] [address] Performed By: #### 5 7021-8 ####[facility] LABORATORYCLIA [id number] [address] [place] Basophils/100 WBC (Bld) 0.3 % Normal [facility] Comment on above: Order Comment: Speci men Type: BLOOD SPECIMENOrdering Facility: [facility] Address: [address] [place] [address] Performed By: #### 5 7021-8 ####[facility] LABORATORYCLIA [id number] [place] [address] [place] Differential cell count method Nom (Bld) Auto Normal [facility] Comment on above: Order Comment: Speci men Type: BLOOD SPECIMENOrdering Facility: [facility] Address: [address] [place] [address] Performed By: #### 5 7021-8 ####[facility] LABORATORYCLIA [id number] [place] [address] [place] Eosinophils (Bld) [#/Vol] 0.07 10*3/uL Normal <0.46 [facility] Comment on above: Order Comment: Speci men Type: BLOOD SPECIMENOrdering Facility: [facility] Address: [address] [place] [address] Performed By: #### 5 7021-8 ####[facility] LABORATORYCLIA [id number] [address] Eosinophils/100 WBC (Bld) 0.7 % Normal [facility] Comment on above: Order Comment: Speci men Type: BLOOD SPECIMENOrdering Facility: [facility] Address: [address] [place] [address] Performed By: #### 5 7021-8 ####[facility] LABORATORYCLIA [id number] [address] [place] Erythrocyte distribution width (RBC) [Ratio] 14.3 % Normal 11.5-15.0 [facility] Comment on above: Order Comment: Speci men Type: BLOOD SPECIMENOrdering Facility: [facility] Address: [address] [place] [address] Performed By: #### 5 7021-8 ####[facility] LABORATORYCLIA [id number] [address] [place] Hematocrit (Bld) [Volume fraction] 39.9 % Normal 39.0-51.0 [facility] Comment on above: Order Comment: Speci men Type: BLOOD SPECIMENOrdering Facility: [facility] Address: [address] [place] [address] Performed By: #### 5 7021-8 ####[facility] LABORATORYCLIA [id number] [place] [address] [place] Hemoglobin (Bld) [Mass/Vol] 13.7 g/dL Normal 13.0-17.0 [facility] Comment on above: Order Comment: Speci men Type: BLOOD SPECIMENOrdering Facility: [facility] Address: [address] [place] [address] Performed By: #### 5 7021-8 ####[facility] LABORATORYCLIA [id number] [place] [address] [place] Immature granulocytes (Bld) [#/Vol] 0.05 10*3/uL Normal <0.10 [facility] Comment on above: Order Comment: Speci men Type: BLOOD SPECIMENOrdering Facility: [facility] Address: [address] [place] [address] Performed By: #### 5 7021-8 ####[facility] LABORATORYCLIA [id number] [address] [place] Immature granulocytes/100 WBC (Bld) 0.5 % Normal [facility] Comment on above: Order Comment: Speci men Type: BLOOD SPECIMENOrdering Facility: [facility] Address: [address] [place] [address] Performed By: #### 5 7021-8 ####[facility] LABORATORYCLIA [id number] [place] [address] [place] Lymphocytes (Bld) [#/Vol] 1.14 10*3/uL Normal 1.00-4.00 [facility] Comment on above: Order Comment: Speci men Type: BLOOD SPECIMENOrdering Facility: [facility] Address: [address] [place] [address] Performed By: #### 5 7021-8 ####[facility] LABORATORYCLIA [id number] [address] Lymphocytes/100 WBC (Bld) 10.7 % Normal [facility] Comment on above: Order Comment: Speci men Type: BLOOD SPECIMENOrdering Facility: [facility] Address: [address] [place] [address] Performed By: #### 5 7021-8 ####[facility] LABORATORYCLIA [id number] [address] MCH (RBC) [Entitic mass] 30.7 pg Normal 26.0-34.0 [facility] Comment on above: Order Comment: Speci men Type: BLOOD SPECIMENOrdering Facility: [facility] Address: [address] [place] [address] Performed By: #### 5 7021-8 ####[facility] LABORATORYCLIA [id number] [address] MCHC (RBC) [Mass/Vol] 34.3 g/dL Normal 30.5-36.0 [facility] Comment on above: Order Comment: Speci men Type: BLOOD SPECIMENOrdering Facility: [facility] Address: [address] [place] [address] Performed By: #### 5 7021-8 ####[facility] LABORATORYCLIA [id number] [address] MCV (RBC) [Entitic vol] 89.5 fL Normal 80.0-100.0 [facility] Comment on above: Order Comment: Speci men Type: BLOOD SPECIMENOrdering Facility: [facility] Address: [address] [place] [address] Performed By: #### 5 7021-8 ####[facility] LABORATORYCLIA [id number] [address] Monocytes (Bld) [#/Vol] 0.60 10*3/uL Normal <0.87 [facility] Comment on above: Order Comment: Speci men Type: BLOOD SPECIMENOrdering Facility: [facility] Address: [address] [place] [address] Performed By: #### 5 7021-8 ####BO[facility] LABORATORYCLIA [id number] [place] [address] [place] Monocytes/100 WBC (Bld) 5.6 % Normal [facility] Comment on above: Order Comment: Speci men Type: BLOOD SPECIMENOrdering Facility: [facility] Address: [address] [place] [address] Performed By: #### 5 7021-8 ####[facility] LABORATORYCLIA [id number] [place] [address] [place] Neutrophils (Bld) [#/Vol] 8.74 10*3/uL High 1.45-7.50 [facility] Comment on above: Order Comment: Speci men Type: BLOOD SPECIMENOrdering Facility: [facility] Address: [address] [place] [address] Performed By: #### 5 7021-8 ####BO[facility] LABORATORYCLIA [id number] [place] [address] [place] Neutrophils/100 WBC (Bld) 82.2 % Normal [facility] Comment on above: Order Comment: Speci men Type: BLOOD SPECIMENOrdering Facility: [facility] Address: [address] [place] [address] Performed By: #### 5 7021-8 ####[facility] LABORATORYCLIA [id number] [place] [address] [place] Nucleated RBC (Bld) [#/Vol] 10*3/uL Normal <0.01 [facility] Comment on above: Order Comment: Speci men Type: BLOOD SPECIMENOrdering Facility: [facility] Address: [address] [place] [address] Performed By: #### 5 7021-8 ####[facility] LABORATORYCLIA [id number] [place] [address] [place] Nucleated RBC/100 WBC (Bld) [Ratio] 0.0 /100 WBC Normal [facility] Comment on above: Order Comment: Speci men Type: BLOOD SPECIMENOrdering Facility: [facility] Address: [address] [place] [address] Performed By: #### 5 7021-8 ####BO[facility] LABORATORYCLIA [id number] [place] [address] [place] Platelet mean volume (Bld) [Entitic vol] 9.0 fL Normal 9.0-12.7 [facility] Comment on above: Order Comment: Speci men Type: BLOOD SPECIMENOrdering Facility: [facility] Address: [address] [place] [address] Performed By: #### 5 7021-8 ####[facility] LABORATORYCLIA [id number] [place] [address] [place] Platelets (Bld) [#/Vol] 314 10*3/uL Normal 150-400 [facility] Comment on above: Order Comment: Speci men Type: BLOOD SPECIMENOrdering Facility: [facility] Address: [address] [place] [address] Performed By: #### 5 7021-8 ####[facility] LABORATORYCLIA [id number] [place] [address] [place] RBC (Bld) [#/Vol] 4.46 10*6/uL Normal 4.20-6.00 [facility] Comment on above: Order Comment: Speci men Type: BLOOD SPECIMENOrdering Facility: [facility] Address: [address] [place] [address] Performed By: #### 5 7021-8 ####[facility] LABORATORYCLIA [id number] [place] [address] [place] WBC (Bld) [#/Vol] 10.63 10*3/uL Normal 3.70-11.00 [facility] Comment on above: Order Comment: Speci men Type: BLOOD SPECIMENOrdering Facility: [facility] Address: [address] [place] [address] Performed By: #### 5 7021-8 ####[facility] LABORATORYCLIA [id number] [place] [address] [place] Basophils (Bld) [#/Vol] 0.03 10*3/uL <0.11 k/uL [facility] Basophils/100 WBC (Bld) 0.3 % [facility] Differential cell count method Nom (Bld) Auto [facility] Eosinophils (Bld) [#/Vol] 0.07 10*3/uL <0.46 k/uL [facility] Eosinophils/100 WBC (Bld) 0.7 % [facility] Erythrocyte distribution width (RBC) [Ratio] 14.3 % 11.5 - 15.0 % [facility] Hematocrit (Bld) [Volume fraction] 39.9 % 39.0 - 51.0 % [facility] Hemoglobin (Bld) [Mass/Vol] 13.7 g/dL 13.0 - 17.0 g/dL [facility] Immature granulocytes (Bld) [#/Vol] 0.05 10*3/uL <0.10 k/uL [facility] Immature granulocytes/100 WBC (Bld) 0.5 % [facility] Lymphocytes (Bld) [#/Vol] 1.14 10*3/uL 1.00 - 4.00 k/uL [facility] Lymphocytes/100 WBC (Bld) 10.7 % [facility] MCH (RBC) [Entitic mass] 30.7 pg 26.0 - 34.0 pg [facility] MCHC (RBC) [Mass/Vol] 34.3 g/dL 30.5 - 36.0 g/dL [facility] MCV (RBC) [Entitic vol] 89.5 fL 80.0 - 100.0 fL [facility] Monocytes (Bld) [#/Vol] 0.60 10*3/uL <0.87 k/uL [facility] Monocytes/100 WBC (Bld) 5.6 % [facility] Neutrophils (Bld) [#/Vol] 8.74 10*3/uL High 1.45 - 7.50 k/uL [facility] Neutrophils/100 WBC (Bld) 82.2 % [facility] Nucleated RBC (Bld) [#/Vol] <0.01 k/uL [facility] Nucleated RBC/100 WBC (Bld) [Ratio] 0.0 /100 WBC [facility] Platelet mean volume (Bld) [Entitic vol] 9.0 fL 9.0 - 12.7 fL [facility] Platelets (Bld) [#/Vol] 314 10*3/uL 150 - 400 k/uL [facility] RBC (Bld) [#/Vol] 4.46 10*6/uL 4.20 - 6.0 0 m/uL [facility] WBC (Bld) [#/Vol] 10.63 10*3/uL 3.70 - 11 .00 k/uL [facility] ECG COMPLETEon 08-16-2022 Atrial Rate 77 BPM [facility] Calculated P [place] 57 degrees [facility] Calculated R [place] -3 degrees [facility] Calculated T [place] 30 degrees [facility] P-R Interval 172 ms [facility] QRS Duration 98 ms [facility] QT Interval 378 ms [facility] QTC Calculation (Bazett) 427 ms [facility] Ventricular Rate 77 BPM [facility] [id number] 08-16-2022 ECG01 Ventricular Rate : 7 7 BPM Atrial Rate : 77 BPM P-R Interval : 172 ms QRS Duration : 98 ms Q-T Interval : 378 ms QTC Calculation(Bazett) : 427 ms Calculated P [place] : 57 degrees Calculated R [place] : -3 degrees Calculated T [place] : 30 degrees NORMAL SINUS RHYTHM NORMAL ECG WHEN COMPARED WITH ECG OF 29-JUL-2014 08:31, NO SIGNIFICANT CHANGE WAS FOUND Confirmed by ELIJAH BURNS M.D. ([id number]) on 08/16/2022 2:14:14 PM NAME : ROBERTO OSBORN PID : [id number] : 1960 Gender : Male Race : ORD : [id number] Procedure Date : Aug 16 2022 08:49:58 Edit Date : Aug 16 2022 14:14:15 Diagnosis: NORMAL SINUS RHYTHM NORMAL ECG WHEN COMPARED WITH ECG OF 29-JUL-2014 08:31, NO SIGNIFICANT CHANGE WAS FOUND Confirmed by ELIJAH BURNS M.D. ([id number]) on 08/16/2022 2:14:14 PM Test Reason : Location : 10 : [facility]/ Overread By : ELIJAH BURNS M.D. Edited By : ELIJAH BURNS M.D. Referred By : YANET BOYLE Acquired by : EL [facility] FERRITIN BLDon 08-16-2022 Ferritin [Mass/Vol] 138.0 ng/mL 30.3 - 5 65.7 ng/mL [facility] Ferritin SerPl-mCncon 01-06- 2023 Ferritin [Mass/Vol] 138.0 ng/mL Normal 30.3-565.7 [facility] Comment on above: Order Comment: Vera grant Type: BLOOD SPECIMENOrdering Facility: [facility] Address: [address] [place] [address] Performed By: #### 2 276-4, 43919-9, 96429-5 ####[facility] LABORATORYCLIA [id number] [address] OF [facility] HbA1c (Bld)on 08-16-2022 Average glucose Estimated from glycated hemoglobin (Bld) [Mass/Vol] 131 mg/dL [facility] HbA1c (Bld) [Mass fraction] 6.2 % High 4.3 - 5.6 % [facility] Average glucose Estimated from glycated hemoglobin (Bld) [Mass/Vol] 131 mg/dL Normal [facility] Comment on above: Order Comment: Vera grant Type: BLOOD SPECIMENOrdering Facility: [facility] Address: [address] [place] [address] Result Comment: eAG: (Estimated average glucose) is a calculated value from HgbA1c and is medical collections representative of the average blood glucose level in the last 2-3 month period. Performed By: #### 5 5454-3 ####[facility] LABCLIA [id number] [address] STATES OF [facility] HbA1c (Bld) [Mass fraction] 6.2 % High 4.3-5.6 [facility] Comment on above: Order Comment: Vera grant Type: BLOOD SPECIMENOrdering Facility: [facility] Address: [address] [place] [address] Result Comment: Amer [place] Diabetes Association guidelines indicate that patients with HgbA1c in the range 5.7-6.4% are at increased risk for development of diabetes, and intervention by lifestyle modification may be beneficial. HgbA1c greater or equal to 6.5% is considered diagnostic of diabetes. Performed By: #### 5 5454-3 ####[facility] LABCLIA [id number] [address] OF [facility] Iron and Iron binding capaci ty panelon 08-16-2022 Iron [Mass/Vol] 151 ug/dL Normal 41-186 [facility] Comment on above: Order Comment: Speci men Type: BLOOD SPECIMENOrdering Facility: [facility] Address: [place] [address] Performed By: #### 2 276-4, 59978-2, 51096-7 ####[facility] LABORATORYCLIA [id number] [address] Iron binding capacity [Mass/Vol] 338 ug/dL Normal 232-386 [facility] Comment on above: Order Comment: Speci men Type: BLOOD SPECIMENOrdering Facility: [facility] Address: [address] [place] [address] Performed By: #### 2 276-4, 51817-3, 81231-0 ####[facility] LABORATORYCLIA [id number] [address] Iron/TIBC [Molar ratio] 44.7 % Normal 15.0-57.0 [facility] Comment on above: Order Comment: Speci men Type: BLOOD SPECIMENOrdering Facility: [facility] Address: [address] [place] [address] Performed By: #### 2 276-4, 29244-4, 27301-9 ####[facility] LABORATORYCLIA [id number] [address] Iron [Mass/Vol] 151 ug/dL 41 - 186 ug/dL [facility] Iron binding capacity [Mass/Vol] 338 ug/dL 232 - 386 ug/dL [facility] Iron/TIBC [Molar ratio] 44.7 % 15.0 - 57.0 % [facility] TYPE AND SCREEN,30 DAYon ABO O Normal [facility] Comment on above: Order Comment: Speci men Type: BLOOD SPECIMENOrdering Facility: [facility] Address: [address] [place] [address] Performed By: #### T SCR30 ####[facility] BLO[facility] BANKCLIA [id number] [address] HISTORICAL AB SCR STATUS Negative Normal [facility] Comment on above: Order Comment: Speci men Type: BLOOD SPECIMENOrdering Facility: [facility] Address: [address] [place] [address] Performed By: #### T SCR30 ####[facility] BLOOD BANKCLIA [id number] [place] [address] [facility] [place] Rh Nom (Bld) Positive Normal [facility] Comment on above: Order Comment: Speci men Type: BLOOD SPECIMENOrdering Facility: [facility] Address: [address] Performed By: #### T SCR30 ####[facility] BLOOD BANKIA [id number] [address] [place] ABO O [facility] HIstorical Ab Scr Status Negative [facility] Rh Nom (Bld) Positive [facility] HISTORY PHYSICALon HISTORY PHYSICAL HNO ID: [id number] Author: Yanet Boyle PA-C Service: ? Author Type: Physician Corporate Travel Counselor Type: HANDP Filed: 08/16/2022 9:28 AM Note [...] manage symptoms. Procedure scheduled on 09/10/2022 at ID. REVIEW OF SYSTEMS: General: No weight loss, malaise or fevers. Neurological: No history of TIA's, stroke, RESEARCH BIOLOGIST tumor, impaired sensorium, hemiplegia, paraplegia or quadraplegia. [...] Yes umeclid (more content not included)... Normal [facility] XR Shoulder - right 2 Viewso n 08-06-2022 IMPRESSION: Degenerative changes as discussed Tow Truck Dispatcher: ENOCH Transcribe Date/Time: Aug 06 2022 12:49P Dictated by : ADAL RODRIGUEZ DO This examination was interpreted and the report reviewed and electronically signed by: ADAL RODRIGUEZ DO on Aug 06 2022 12:51PM [facility] * * *Final Report* [...] well-preserved. No fractures or dislocations are seen. [facility] Provider, Sunny Jiang - 08/06/2022 * [...] seen. IMPRESSION IMPRESSION: Degenerative changes as discussed Tow Truck Dispatcher: PSCMayra Transcribe Date/Time: Aug 06 2022 12:49P Dictated by : ADAL RODRIGUEZ DO This examination was interpreted and the report reviewed and electronically signed by: ADAL RODRIGUEZ DO on Aug 06 2022 12:51PM [facility] XR Shoulder - right 2 ViewsO rdered By: Ccf Provider on 08-06-2022 [facility] XR SHOULDER 2V AP/TRUE AP RT [...] are seen. IMPRESSION: Degenerative changes as discussed Tow Truck Dispatcher: ENOCH Transcribe Date/Time: Aug 06 2022 12:49P Dictated by : ADAL RODRIGUEZ DO This examination was interpreted and the report reviewed and electronically signed by: ADAL RODRIGUEZ DO on Aug 06 2022 12:51PM EST [id number] [facility] XR Shoulder - right 2 Viewso n 08-02-2022 Radiology Study observation (narrative) [facility] XR KNEE GENERAL 4V AP BOTH/P A BOTH/LAT/MERC BILATERALon 02-22-2022 [facility] CNPNon 05-02-2020 CNPN Telephone ([id number]) ROBERTO OSBORN SR ([id number]) 1960 M Date Time Provider Department 05/02/20 [place] [address] During your visit today, we recorded the following information about you: RT Ranjan, Tech 05/02/2020 1:03 PM Signed LMOM for patient to schedule 05/02. RT Izabella, Tech 05/02/2020 4:27 PM Signed Patient called back and stated he was going to call [facility] before scheduling. Jazmin Alcantara Allergies As of [...] JAZMIN ALCANTARA on 05/02/20 Normal [facility] CT Spine Lumbar w/o Contrast on 04-26-2020 CT Spine Lumbar w/o Contrast Patient Name: ROBERTO OSBORN CT Exam Date/Time 04/25/2020 09:20:[address] Spine Lumbar w/o Contrast Ordering Physician NESSA LIAO BRANDY M Accession Number [id number] CPT4 Codes 16457 () Reason For Exam RIGHT LEG WEAKNESS, [...] Transcribed Date and Time: 04/26/2020 9:58 Normal [facility] NM BONE SCAN WHOLE BODYon Patient Name: ROBERTO OSBORN ---Nuc Med--- Exam Date/Time 04/25/2020 13:03:31 EDT Exam NM Bone Imaging Whole Body Ordering Physician NESSA LIAO BRANDY M Accession Number [id number] CPT4 Codes 33493 () Reason For Exam low back pain [...] R Transcribed Date and Time: 04/25/2020 1:54 [place], [place] Tim, [facility] Incoming Radiology Results From [facility] - 04/25/2020 1:54 PM EDT Patient Name: ROBERTO OSBORN ---Nuc Med--- Exam Date/Time 04/25/2020 13:03:31 EDT Exam NM Bone Imaging Whole Body Ordering Physician NESSA LIAO BRANDY M Accession Number [id number] CPT4 Codes 34874 () Reason For Exam low back pain [...] R Transcribed Date and Time: 04/25/2020 1:54 [place], [place] NM Bone Imaging Whole Bodyon 04-25-2020 NM Bone Imaging Whole Body Patient Name: ROBERTO OSBORN Nuc Med Exam Date/Time 04/25/2020 13:03:31 EDT Exam NM Bone Imaging Whole Body Ordering Physician NESSA LIAO BRANDY M Accession Number [id number] CPT4 Codes 46949 () Reason For Exam low back pain [...] Transcribed Date and Time: 04/25/2020 1:54 Normal [facility] US Lower Extremity Venous Ri danii 03-27-2020 [facility] -- Right Lower Extremity Venous Duplex Report Ordering Physician: Awilda Vivas Associate Software Application Engineer: Steph Abraham RDMS, T Interpreting Physician: Marti Valles -- Location: [facility] -- Indications: Pain right thigh. -- Preliminary [...] Images were obtained using a [place] i700 [employer] vascular ultrasound machine. -- Venous flow and [...] electronically signed by Marti Valles 03/27/2020 17:43 [facility] [place], [place] Tim, [facility] Cardiology Results From Kelsi/Renetta - 03/27/2020 5:44 PM EDT [facility] -- Right Lower Extremity Venous Duplex Report Ordering Physician: Awilda Vivas Associate Software Application Engineer: Steph Abraham RDMS RVT Interpreting Physician: Marti Valles -- Location: [place] -- Indications: Pain right thigh. -- [...] supine position. Images were obtained using a [place] i700 [employer] vascular ultrasound machine. -- Venous [...] electronically signed by Marti Valles 03/27/2020 17:43 [place], [place] VL Venous Duplex US Lower Ex t Casey 03-27-2020 VL Venous Duplex US Lower Ext Right Patient Name: ROBERTO OSBORN Ultrasound Exam Date/Time 03/27/2020 16:45:00 EDT Exam VL Venous Duplex US Lower Ext Right Ordering Physician AWILDA VIVAS Accession Number [id number] CPT4 Codes 56397 () Reason For Exam pain of thigh of right lower extremity Report [facility] -- Right Lower Extremity Venous Duplex Report Ordering Physician: Awilda Vivas Associate Software Application Engineer: Steph Abraham RDME, T Interpreting Physician: Marti Valles -- Location: [facility] -- Indications: Pain right thigh. -- Preliminary [...] supine position. Images were obtained using a [employer] i700 [employer] vascular ultrasound machine. -- Venous flow and [...] Dictated: 03/27/2020 5:44 pm Dictating Physician: MARTI VALELS Signed Date and Time: 03/27/2020 5:43 pm Signed by: MARTI VALLES [facility] MRI Spine Lumbar w/ + w/o Co ntraston 03-24-2020 MRI Spine Lumbar w/ + w/o Contrast Patient Name: ROBERTO OSBORN MRI Exam Date/Time 03/22/2020 13:59:28 EDT Exam MRI Spine Lumbar w/ + w/o Contrast Ordering Physician NESSA LIAO BRANDY M Accession Number [id number] CPT4 Codes 95356 () Reason For Exam stenosis with neurogenic [...] Transcribed Date and Time: 03/24/2020 9:24 Normal [facility] CBC Auto Differentialon 04- Absolute Baso # 0.1 10*3/uL 0 - 0.2 10*3/uL [facility], [place] Comment on above: Test Performed by [facility], [address] [place] [address], [place] [address] Absolute Neut # 3.7 10*3/uL 1.8 - 7 10*3/uL [place], [place] Comment on above: Test Performed by [facility], [address] [place] [address] Interpretation and review of laboratory results Abnormal [place], [place] Test Performed by [facility], [address] [place] [address] [place], [place] CT HEAD WO CONTRASTon 2019 Patient Name: ROBERTO OSBORN ---CT--- Exam Date/Time 11/27/2019 04:15:[address] Head or Brain w/o Contrast Ordering Physician MD KRISTIAN, TRAY Costello Accession Number [id number] CPT4 Codes 09411 () Reason For Exam left hand numbness [...] WILLIAM Transcribed Date and Time: 11/27/2019 4:25 [place], [place] Tim, [facility] Incoming Radiology Results From [facility] - 11/27/2019 4:28 AM EDT Patient Name: ROBERTO OSBORN ---CT--- Exam Date/Time 11/27/2019 04:15:[address] Head or Brain w/o Contrast Ordering Physician MD TOWNSEND MARK D Accession Number [id number] CPT4 Codes 39173 () Reason For Exam left hand numbness [...] WILLIAM Transcribed Date and Time: 11/27/2019 4:25 [place] CT Head or Brain w/o Contras ton 11-27-2019 CT Head or Brain w/o Contrast Patient Name: ROBERTO OSBORN CT Exam Date/Time 11/27/2019 04:15:[address] Head or Brain w/o Contrast Ordering Physician MD KRISTIAN, TRAY Costello Accession Number [id number] CPT4 Codes 78255 () Reason For Exam left hand numbness [...] WILLIAM Transcribed Date and Time: 11/27/2019 4:25 [facility] Comp Panel with Mg Reflexon 11-27-2019 ALP [Catalytic activity/Vol] 67 U/L Normal 38-126 [facility] Comment on above: Performed By: #### H EMDHugo CMP3M, TROPN #### [place] [address] [place] [address] ALT [Catalytic activity/Vol] 20 U/L Normal 0-49 [facility] Comment on above: Result Comment: The ALT test is performed by an updated assay method. Please note that the reference intervals have been changed and are now sex specific. Performed By: #### H EMDF, CMP3M, TROPN #### [address] [place] [address] AST [Catalytic activity/Vol] 27 U/L Normal 15-46 [facility] Comment on above: Performed By: #### H EMDF, CMP3M, TROPN #### [address] [place] [address] Calcium [Mass/Vol] 8.7 mg/dL Normal 8.4-10.4 [facility] Comment on above: Performed By: #### H EMDF, CMP3M, TROPN #### [address] [place] [address] Glucose [Mass/Vol] 147 mg/dL High 70-100 [facility] Comment on above: Performed By: #### H EMDF, CMP3M, TROPN #### [address] [place] [address] Urea nitrogen [Mass/Vol] 6 mg/dL Low 7-20 [facility] Comment on above: Performed By: #### H EMDF, CMP3M, TROPN #### [address] [place] [address] Anion gap [Moles/Vol] 9 Normal [facility] Comment on above: Performed By: #### H EMDF, CMP3M, TROPN #### [place] [address] [place] [address] Bilirubin [Mass/Vol] 0.6 mg/dL Normal 0.2-1.3 [facility] Comment on above: Performed By: #### H EMDF, CMP3M, TROPN #### [address] [address] CO2 [Moles/Vol] 25 mmol/L Normal 22-30 [facility] Comment on above: Performed By: #### H MISTY [place]3M, TROPN #### [address] [address] Creatinine [Mass/Vol] 0.57 mg/dL Normal 0.52-1.25 [facility] Comment on above: Performed By: #### H MISTY [place]3M, TROPN #### [address] [address] GFR/1.73 sq M predicted among blacks MDRD (S/P/Bld) [Vol rate/Area] mL/min/{1.73_m2} Normal >60 [facility] Comment on above: Performed By: #### H MISTY [place]3M, TROPN #### [address] [address] GFR/1.73 sq M predicted among non-blacks MDRD (S/P/Bld) [Vol rate/Area] mL/min/{1.73_m2} Normal >60 [facility] Comment on above: Result Comment: Sour ce- MDRD equation with creatinine calibration to IDMS(NKDEP) eGFR not recommended for drug dose adjustment Performed By: #### H MISTY [place]3M, TROPN #### [address] [address] Protein [Mass/Vol] 6.8 g/dL Normal 6.3-8.2 [facility] Comment on above: Performed By: #### H GE CMP3M, TROPN #### [address] [address] Albumin [Mass/Vol] 4.0 g/dL Normal 3.5-5.0 [facility] Comment on above: Performed By: #### H GE CMP3M, TROPN #### [address] [address] Chloride [Moles/Vol] 102 mmol/L Normal 98-107 [facility] Comment on above: Performed By: #### H EMDF, CMP3M, TROPN #### [address] [address] Potassium [Moles/Vol] 3.7 mmol/L Normal 3.5-5.1 [place], [place] Comment on above: Test Performed by [facility], [address] [place] [address] Performed By: #### H EMDF, CMP3M, TROPN #### [address] [address] Sodium [Moles/Vol] 136 mmol/L Normal 135-145 [place], [place] Comment on above: Performed By: #### H EMDF, CMP3M, TROPN #### [address] [address] Comprehensive Metabolic Pane l w/ Reflex to MGon 11-27-2019 Albumin [Mass/Vol] 4.0 g/dL 3.5 - 5 g/dL [place], [place] Comment on above: Test Performed by [facility], [address] [place] [address] ALP [Catalytic activity/Vol] 67 U/L 38 - 126 U/L [place] Comment on above: Test Performed by [facility], [address] [place] [address] ALT [Catalytic activity/Vol] 20 U/L 0 - 49 U/L [place] Comment on above: Test Performed by [facility], [address] [place] [address] The ALT test is performed by an updated assay method. Please note that the reference intervals have been changed and are now sex specific. Anion gap [Moles/Vol] 9 mmol/L [place], [place] Comment on above: Test Performed by [facility], [address] [place] [address] AST [Catalytic activity/Vol] 27 U/L 15 - 46 U/L [place] Comment on above: Test Performed by [facility], [address] [place] [address] Bilirubin Ql (U) 0.6 mg/dL 0.2 - 1.3 mg/dL [place], [place] Comment on above: Test Performed by [address] [address] Calcium [Mass/Vol] 8.7 mg/dL 8.4 - 10. 4 mg/dL [place] Comment on above: Test Performed by [facility], [address] [place] [address] Chloride [Moles/Vol] 102 mmol/L 98 - 10 7 mmol/L [place], [place] Comment on above: Test Performed by [facility], [address] [place] [address] CO2 [Moles/Vol] 25 mmol/L 22 - 30 mmol/L [place] Comment on above: Test Performed by [facility], [address] [place] [address] Creatinine [Mass/Vol] 0.57 mg/dL 0.52 - 1.25 mg/dL [place], [place] Comment on above: Test Performed by [facility], [address] [place] [address] EGFR IF NonAfrican Samoan >60.0 >60 mL/min [place], [place] Comment on above: Test Performed by [facility], [address] [place] [address] Source- MDRD equation with creatinine calibration to IDMS(NKDEP) eGFR not recommended for drug dose adjustment GFR/1.73 sq M predicted among blacks MDRD (S/P/Bld) [Vol rate/Area] mL/min/{1.73_m2} >60 mL/min [place] Comment on above: Test Performed by [facility], [address] [place] [address] Glucose [Mass/Vol] 147 mg/dL High 70 - 100 mg/dL [place], [place] Comment on above: Test Performed by [facility], [address] [place] [address] Interpretation and review of laboratory results Abnormal [place], [place] Protein [Mass/Vol] 6.8 g/dL 6.3 - 8.2 g/dL [place] Comment on above: Test Performed by [facility], [address] [place] [address] Urea nitrogen [Mass/Vol] 6 mg/dL Low 7 - 20 mg/dL [place], [place] Comment on above: Test Performed by [facility], [address] [place] [address] Test Performed by [facility], [address] [place] [address] [place], [place] Hemogram w/ Autodiffon 11-26 Abs Baso Cnt 0.1 10*3/uL Normal 0.0-0.2 [facility] Comment on above: Performed By: #### H EMDF, CMP3M, TROPN #### [address] [address] Abs Neutrophile Cnt 3.7 10*3/uL Normal 1.8-7.0 [facility] Comment on above: Performed By: #### H EMDF, CMP3M, TROPN #### [address] [address] Basophils/100 WBC (Bld) 0.7 % Normal 0.0-2.0 [place], [place] Comment on above: Test Performed by [facility], [address] [place] [address] Performed By: #### H EMDF, CMP3M, TROPN #### [address] [address] Eosinophils (Bld) [#/Vol] 0.2 10*3/uL Normal 0.0-0.5 [place], [place] Comment on above: Test Performed by [facility], [address] [place] [address] Performed By: #### H EMDF, CMP3M, TROPN #### [address] [address] Eosinophils/100 WBC (Bld) 3.2 % Normal 1.0-6.0 [place], [place] Comment on above: Test Performed by [facility], [address] [place] [address] Performed By: #### H EMDF, CMP3M, TROPN #### [address] [address] Erythrocyte distribution width (RBC) [Ratio] 13.3 % Normal 11.5-14.5 [place], [place] Comment on above: Test Performed by [facility], [address] [place] [address], [place] [address] Performed By: #### H EMDF, CMP3M, TROPN #### [address] [place] [address] Granulocytes/100 WBC (Bld) 48.4 % Normal 40.0-80.0 [place], [place] Comment on above: Test Performed by [facility], [address] [place] [address], [place] [address] Performed By: #### H EMDF, CMP3M, TROPN #### [address] [place] [address] Hematocrit (Bld) [Volume fraction] 43.8 % Normal 40.0-52.0 [place], [place] Comment on above: Test Performed by [facility], [address] [place] [address], [place] [address] Performed By: #### H EMDF, CMP3M, TROPN #### [address] [address] Hemoglobin (Bld) [Mass/Vol] 14.4 g/dL Normal 13.0-18.0 [place], [place] Comment on above: Test Performed by [facility], [address] [place] [address] Performed By: #### H EMDF, CMP3M, TROPN #### [address] [place] [address] Lymphocytes (Bld) [#/Vol] 2.7 10*3/uL Normal 1.0-4.3 [place], [place] Comment on above: Test Performed by [facility], [address] [place] [address], [place] [address] Performed By: #### H EMDF, CMP3M, TROPN #### [address] [place] [address] Lymphocytes/100 WBC (Bld) 35.2 % Normal 20.0-40.0 [place], [place] Comment on above: Test Performed by [facility], [address] [place] [address] Performed By: #### H EMDF, CMP3M, TROPN #### [address] [place] [address] MCH (RBC) [Entitic mass] 29.1 pg Normal 26.0-34.0 [place], [place] Comment on above: Test Performed by [facility], [address] [place] [address] Performed By: #### H EMDF, CMP3M, TROPN #### [address] [address] MCHC (RBC) [Mass/Vol] 33.0 % Normal 32.0-36.0 [place], [place] Comment on above: Test Performed by [facility], [address] [place] [address] Performed By: #### H EMDF, CMP3M, TROPN #### [address] [address] MCV (RBC) [Entitic vol] 88.2 fL Normal 80.0-98.0 [place] Comment on above: Test Performed by [facility], [address] [place] [address] Performed By: #### H EMDF, CMP3M, TROPN #### [address] [address] Monocytes (Bld) [#/Vol] 1.0 10*3/uL High 0.0-0.8 [place], [place] Comment on above: Test Performed by [facility], [address] [place] [address] Performed By: #### H EMDF, CMP3M, TROPN #### [address] [address] Monocytes/100 WBC (Bld) 12.5 % High 2.0-10.0 [place], [place] Comment on above: Test Performed by [facility], [address] [place] [address] Performed By: #### H EMDF, CMP3M, TROPN #### [address] [address] Platelet mean volume (Bld) [Entitic vol] 6.9 fL Low 7.4-10.4 [place], [place] Comment on above: Test Performed by [facility], [address] [place] [address] Performed By: #### H EMDF, CMP3M, TROPN #### [address] [address] Platelets (Bld) [#/Vol] 355 10*3/uL Normal 140-440 [place], [place] Comment on above: Test Performed by [facility], [address] [place] [address] Performed By: #### H EMDF, CMP3M, TROPN #### [address] [address] RBC (Bld) [#/Vol] 4.97 10*6/uL Normal 4.40-5.90 [place], [place] Comment on above: Test Performed by [facility], [address] [place] [address] Performed By: #### H EMDF, CMP3M, TROPN #### [address] [address] WBC (Bld) [#/Vol] 7.7 10*3/uL Normal 3.6-10.7 [place] Comment on above: Performed By: #### H EMDF, CMP3M, TROPN #### [address] [address] Troponinon 11-27-2019 Troponin I.cardiac [Mass/Vol] ng/mL 0 - 0.034 ng/mL [place], [place] Comment on above: . Test Performed by [facility], [address] [place] [address] [place] Troponin Ion 11-27-2019 Troponin I.cardiac [Mass/Vol] ng/mL Normal 0.000-0.034 [facility] Comment on above: Result Comment: . Performed By: #### H EMDF, CMP3M, TROPN #### [address] [address] No Panel Information [facility] Vital Signs Date Time Vital Sign Value Performing Clinician Facility 09-06-2024 11:22-0500 Diastolic blood pressure 72 mm[Hg] Timothy Correa MD Work Phone: [facility] 09-06-2024 11:22-0500 Systolic blood pressure 126 mm[Hg] Timothy Correa MD Work Phone: [facility] 09-06-2024 11:17-0500 Body height 180.3 cm Timothy Correa MD Work Phone: [facility] 09-06-2024 11:17-0500 Body mass index (BMI) [Ratio] 34.61 kg/m2 Timothy Correa MD Work Phone: [facility] 09-06-2024 11:17-0500 Body temperature 98.2 [degF] Timothy Correa MD Work Phone: [facility] 09-06-2024 11:17-0500 Body weight 112.55 kg Timothy Correa MD Work Phone: [facility] 09-06-2024 11:17-0500 Heart rate 76 /min Timothy Correa MD Work Phone: [facility] 09-06-2024 11:17-0500 Respiratory rate 16 /min Timothy Correa MD Work Phone: [facility] 09-06-2024 11:17-0500 SaO2% (BldA) [Mass fraction] 97 % Timothy Correa MD Work Phone: [facility] 12-16-2023 08:17-0400 Body temperature 98.01 [degF] Timothy Correa MD Work Phone: [facility] 12-16-2023 08:17-0400 Diastolic blood pressure 75 mm[Hg] Timothy Correa MD Work Phone: [facility] 12-16-2023 08:17-0400 Heart rate 100 /min Timothy Correa MD Work Phone: [facility] 12-16-2023 08:17-0400 Respiratory rate 16 /min Timothy Correa MD Work Phone: [facility] 12-16-2023 08:17-0400 Systolic blood pressure 135 mm[Hg] Timohty Correa MD Work Phone: [facility] 10-06-2023 08:50-0500 Body temperature 98.01 [degF] Timothy [...] 88 /min Timothy Correa MD Work Phone: [facility] 04-24-2023 13:14-0400 Respiratory rate 16 /min Timothy Correa MD Work Phone: [facility] 04-24-2023 13:14-0400 SaO2% (BldA) [Mass fraction] 97 % Timothy Correa MD Work Phone: [facility] 04-24-2023 13:14-0400 Systolic blood pressure 125 mm[Hg] Timothy Correa MD Work Phone: [facility] 10-03-2022 08:26-0500 Body temperature 98.01 [degF] Timothy Correa MD Work Phone: [facility] 10-03-2022 08:26-0500 Diastolic blood pressure 61 mm[Hg] Timothy Correa MD Work Phone: [facility] 10-03-2022 08:26-0500 Heart rate 96 /min Timothy Correa MD Work Phone: [facility] 10-03-2022 08:26-0500 Respiratory rate 16 /min Timothy Correa MD Work Phone: [facility] 10-03-2022 08:26-0500 SaO2% (BldA) [Mass fraction] 96 % Timothy Correa MD Work Phone: [facility] 10-03-2022 08:26-0500 Systolic blood pressure 119 mm[Hg] Timothy Correa MD Work Phone: [facility] 09-30-2022 09:09-0500 Body temperature 97.59 [degF] Kirill Noe PT Work Phone: [facility] 09-30-2022 09:09-0500 Diastolic blood pressure 70 mm[Hg] Kirill Noe PT Work Phone: [facility] 09-30-2022 09:09-0500 Heart rate 93 /min Kirill Noe PT Work Phone: [facility] 09-30-2022 09:09-0500 SaO2% (BldA) [Mass fraction] 97 % Kirill Noe PT Work Phone: [facility] 09-30-2022 09:09-0500 Systolic blood pressure 130 mm[Hg] Kirill Noe PT Work Phone: [facility] 09-26-2022 10:19-0500 Body temperature 98.8 [degF] Kirill Noe PT Work Phone: [facility] 09-26-2022 10:19-0500 Diastolic blood pressure 80 mm[Hg] Kirill Noe PT Work Phone: [facility] 09-26-2022 10:19-0500 Heart rate 88 /min Kirill Noe PT Work Phone: [facility] 09-26-2022 10:19-0500 SaO2% (BldA) [Mass fraction] 97 % Kirill Susjnuoewicz PT Work Phone: [facility] 09-26-2022 10:19-0500 Systolic blood pressure 136 mm[Hg] Kirill Suskiewicz PT Work Phone: [facility] 09-23-2022 08:59-0500 Body temperature 98.1 [degF] Kirill Suskiewicz PT Work Phone: [facility] 09-23-2022 08:59-0500 Diastolic blood pressure 70 mm[Hg] Kirill Suskiewicz PT Work Phone: [facility] 09-23-2022 08:59-0500 Heart rate 77 /min Kirill Suskiewicz PT Work Phone: [facility] 09-23-2022 08:59-0500 SaO2% (BldA) [Mass fraction] 98 % Kirill Suskiewicz PT Work Phone: [facility] 09-23-2022 08:59-0500 Systolic blood pressure 138 mm[Hg] Kirill Suskiewicz PT Work Phone: [facility] 09-20-2022 08:59-0500 Body temperature 98.49 [degF] Kirill Suskiewicz PT Work Phone: [facility] 09-20-2022 08:59-0500 Diastolic blood pressure 62 mm[Hg] Kirill Suskiewicz PT Work Phone: [facility] 09-20-2022 08:59-0500 Heart rate 88 /min Kirill Suskiewicz PT Work Phone: [facility] 09-20-2022 08:59-0500 SaO2% (BldA) [Mass fraction] 97 % Kirill Suskiewicz PT Work Phone: [facility] 09-20-2022 08:59-0500 Systolic blood pressure 130 mm[Hg] Kirill Suskiewicz PT Work Phone: [facility] 09-18-2022 09:14-0500 Body temperature 98.8 [degF] Kirill Suskiewicz PT Work Phone: [facility] 09-18-2022 09:14-0500 Diastolic blood pressure 70 mm[Hg] Kirill Suskiewicz PT Work Phone: [facility] 09-18-2022 09:14-0500 Heart rate 80 /min Kirill Suskiewicz PT Work Phone: [facility] 09-18-2022 09:14-0500 SaO2% (BldA) [Mass fraction] 98 % Kirill Suskiewicz PT Work Phone: [facility] 09-18-2022 09:14-0500 Systolic blood pressure 120 mm[Hg] Kirill Suskiewicz PT Work Phone: [facility] 09-16-2022 11:10-0500 Body temperature 98.29 [degF] Kirill Suskiewicz PT Work Phone: [facility] 09-16-2022 11:10-0500 Diastolic blood pressure 70 mm[Hg] Kirill Suskiewicz PT Work Phone: [facility] 09-16-2022 11:10-0500 Heart rate 84 /min Kirill Suskiewicz PT Work Phone: [facility] 09-16-2022 11:10-0500 SaO2% (BldA) [Mass fraction] 96 % Kirill Suskiewicz PT Work Phone: [facility] 09-16-2022 11:10-0500 Systolic blood pressure 128 mm[Hg] Kirill Suskiewicz PT Work Phone: [facility] 09-12-2022 11:03-0500 Diastolic blood pressure 64 mm[Hg] Kirill Suskiewicz PT Work Phone: [facility] 09-12-2022 11:03-0500 Heart rate 90 /min Kirill Suskiewicz PT Work Phone: [facility] 09-12-2022 11:03-0500 SaO2% (BldA) [Mass fraction] 94 % Kirill Noe PT Work Phone: [facility] 09-12-2022 11:03-0500 Systolic blood pressure 118 mm[Hg] Kirill Noe PT Work Phone: [facility] 09-12-2022 10:16-0500 Body temperature 99 [degF] Kirill Noe PT Work Phone: [facility] 08-16-2022 08:45-0500 Body height 177.8 cm Pacc 2 Work Phone: [facility] 08-16-2022 08:45-0500 Body temperature 97.5 [degF] Pacc 2 Work Phone: [facility] 08-16-2022 08:45-0500 Body weight 104.33 kg Pacc 2 Work Phone: [facility] 08-16-2022 08:45-0500 Diastolic blood pressure 93 mm[Hg] Pacc 2 Work Phone: [facility] 08-16-2022 08:45-0500 Heart rate 83 /min Pacc 2 Work Phone: [facility] 08-16-2022 08:45-0500 Respiratory rate 18 /min Pacc 2 Work Phone: [facility] 08-16-2022 08:45-0500 SaO2% (BldA) [Mass fraction] 97 % Pacc 2 Work Phone: [facility] 08-16-2022 08:45-0500 Systolic blood pressure 132 mm[Hg] Pacc 2 Work Phone: [facility] 02-22-2022 13:15-0400 Body weight 105.23 kg Chika Carpenter MD Work Phone: [facility] 11-27-2019 04:50-0400 BP Diastolic 78 mm[Hg] Tray Townsend [place] 11-27-2019 04:50-0400 BP Systolic 148 mm[Hg] Tray Gutierrez [facility] , [place] 11-27-2019 04:50-0400 Pulse (Heart Rate) 80 /min Tray Gutierrez [facility], [place] 11-27-2019 04:50-0400 Pulse Oximetry 97 % Tray Gutierrez [facility] , [place] 11-27-2019 04:50-0400 Respiratory Rate 16 /min [facility] [place] 11-27-2019 03:34-0400 BMI (Body Mass Index) 33.72 kg/m2 Tray Gutierrez [facility], [place] 11-27-2019 03:34-0400 Body Temperature 97.7 [degF] [facility] [place] 11-27-2019 03:34-0400 Body weight 106.59 kg Tray Gutierrez [facility] , [place] 11-27-2019 03:34-0400 Height 177.8 cm Tray Gutierrez [facility] , [place] Encounters Encounter Date Encounter Type Care Provider Facility Start: 01-11-2025 End: 01-11-2025 ambulatory Timothy Correa MD Work Phone: [facility] Comment on above: [place] Start: 01-11-2025 End: 01-11-2025 E-mail encounter from caregiver Timothy Correa MD Work Phone: [facility] Start: 10-18-2024 End: 10-18-2024 ambulatory UNKNOWN PROVIDER Facility:[facility] Start: 10-14-2024 ambulatory UNKNOWN PROVIDER Facili ty:[facility] Start: 09-15-2024 End: 09-15-2024 Refill Timothy Correa MD Work Phone: [facility] Comment on above: Refill Start: 09-10-2024 End: 09-10-2024 ambulatory Timothy Correa Facility:[facility] Start: 09-07-2024 End: 09-07-2024 Telephone encounter Shy Oliver MA [facility] Comment on above: Outside Medical Miguel rds Received Start: 09-06-2024 End: 09-06-2024 Office outpatient visit 15 minutes Timothy Correa MD Work Phone: [facility] Comment on above: LLQ abdominal mass ( Primary Dx); Body mass index (BMI) 34.0-34.9, adult Start: 09-06-2024 End: 09-06-2024 ambulatory UNKNOWN PROVIDER Facility:[facility] Start: 08-19-2024 ambulatory UNKNOWN PROVIDER Facili ty:[facility] Start: 08-16-2024 End: 08-17-2024 Refill Timothy Correa MD Work Phone: [facility] Comment on above: Refill Start: 08-16-2024 End: 10-31-2024 ambulatory TIMOTHY CORREA Facility:[facility] Start: 06-14-2024 End: 06-14-2024 ambulatory Adryan Pitt Facility:[facility] [place] Start: 12-19-2023 Telephone encounter Hilaryizzy Mooreck [facility] Comment on above: Discuss results test /procedures; Reference 99 Start: 12-16-2023 End: 12-16-2023 Office outpatient visit 15 minutes Timothy Correa MD Work Phone: [facility] Comment on above: Left leg swelling (P rimary Dx) Start: 10-24-2023 Telephone encounter Timothy Correa MD Other Phone: [facility] Comment on above: Question about medic ation Start: 10-07-2023 Orders Only Timothy Correa MD Other Phone: [facility] Start: 10-06-2023 End: 10-06-2023 Patient encounter procedure Timothy Correa MD Other Phone: [facility] Work Phone: Start: 10-06-2023 End: 10-06-2023 Periodic preventive med est patient 40-64yrs Timothy Correa MD Other Phone: [facility] Comment on above: Annual physical exam (Primary Dx); B12 deficiency; Vitamin D deficiency; Type 2 diabetes mellitus without complication, without long-term current use of insulin (HCC); Encounter for long-term (current) use of medications; Pure hypercholesterolemia; Screening for malignant neoplasm of prostate; Essential hypertension, benign; Colon cancer screening Start: 09-24-2023 End: 09-24-2023 Emergency department patient visit TIMOTHY CORREA Facility:[facility] Start: 09-22-2023 Refill Timothy Correa MD Work Phone: [facility] Comment on above: Refill Start: 09-01-2023 Telephone encounter Timothy Coronado [facility] Start: 07-18-2023 End: 07-18-2023 ambulatory UNKNOWN PROVIDER Facility:[facility] Start: 07-18-2023 End: 07-18-2023 Subsequent hospital visit by physician Radio Sanchez Medora Omi Work Phone: Radiology Comment on above: Pain in left hip [M2 5.552] Start: 06-16-2023 Telephone encounter Chika Carpenter MD Work Phone: Orthopaedics Comment on above: Appointment Start: 06-13-2023 ambulatory Chika spence MD Work Phone: Orthopaedics Comment on above: Mobic non effective Start: 06-08-2023 Letter encounter Timothy Correa MD Work Phone: [facility] Start: 05-30-2023 End: 05-30-2023 ambulatory CHIKA CARPENTER Facility:[facility] Start: 05-30-2023 End: 05-30-2023 Patient encounter procedure Chika Carpenter MD Work Phone: Orthopaedics Comment on above: Pain due to internal orthopedic prosthetic devices, implants and grafts, initial encounter (HCC) (Primary Dx) Start: 05-23-2023 ambulatory Regla Higgins PA-C Work Phone: Orthopaedics Comment on above: bone scan Start: 05-23-2023 E-mail encounter fro m caregiver Regla Higgins PA-C Work Phone: [facility] Start: 05-23-2023 End: 05-23-2023 Subsequent hospital visit by physician Mfi Toño [facility] 1 Work Phone: Molecular Imaging Comment on above: Pain due to internal orthopedic prosthetic devices, implants and grafts, initial encounter (HCC) [T84.84XA] Start: 05-23-2023 End: 05-23-2023 Subsequent hospital visit by physician [facility] Toño [facility] 1 Work Phone: Molecular Imaging Comment on above: Pain due to internal orthopedic prosthetic devices, implants and grafts, initial encounter (HCC) [T84.84XA] Start: 05-20-2023 Telephone encounter Chika Carpenter MD Work Phone: Orthopaedics Comment on above: Appointment Start: 05-16-2023 End: 05-16-2023 ambulatory UNKNOWN PROVIDER Facility:[facility] Start: 05-16-2023 End: 05-16-2023 Office outpatient visit 15 minutes Regla Higgins PA-C Work Phone: Orthopaedics Comment on above: Pain due to internal orthopedic prosthetic devices, implants and grafts, initial encounter (HCC) (Primary Dx); S/P total knee replacement using cement, left; 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) Start: 05-16-2023 End: 05-16-2023 Subsequent hospital visit by physician General Medora Omi Work Phone: Radiology Comment on above: Status post total le ft knee replacement [Z96.652] Start: 05-14-2023 Orders Only Regla Higgins PA-C Work Phone: Orthopaedics Comment on above: Status post total le ft knee replacement (Primary Dx) Start: 04-24-2023 End: 04-24-2023 Office outpatient visit 15 minutes Timothy Correa MD Work Phone: [facility] Comment on above: Myalgia (Primary Dx) ; B12 deficiency; Vitamin D deficiency Start: 03-26-2023 Refill Timothy Correa MD Work Phone: [facility] Comment on above: Refill Start: 12-06-2022 End: 12-06-2022 ambulatory CHIKA CARPENTER Facility:[facility] Start: 12-06-2022 End: 12-06-2022 Patient encounter procedure Chika Carpenter MD Work Phone: Orthopaedics Comment on above: Aftercare following right knee joint replacement surgery (Primary Dx) Start: 11-19-2022 Telephone encounter Chika Carpenter MD Work Phone: [facility] Comment on above: Patient Question Start: 11-18-2022 ambulatory Chika spence MD Work Phone: Orthopaedics Comment on above: Return to work form Start: 11-18-2022 E-mail encounter fro m caregiver Chika Carpenter MD Work Phone: [facility] Start: 11-08-2022 Telephone encounter Chika Carpenter MD Work Phone: Orthopaedics Comment on above: Letter Start: 11-06-2022 End: 11-06-2022 ambulatory Tre Go PT, DPT Work Phone: [facility] Comment on above: Chronic pain of righ t knee (Primary Dx) Start: 10-30-2022 End: 10-30-2022 ambulatory Tre Go PT, DPT Work Phone: [facility] Comment on above: Chronic pain of righ t knee (Primary Dx) Start: 10-28-2022 End: 10-28-2022 ambulatory [facility] Comment on above: Chronic pain of righ t knee (Primary Dx) Start: 10-25-2022 End: 10-25-2022 ambulatory TIMOTHY CHINO Facility:[facility] Start: 10-25-2022 End: 10-25-2022 Patient encounter procedure Chika Carpenter MD Work Phone: Orthopaedics Comment on above: Aftercare following right knee joint replacement surgery (Primary Dx) Start: 10-24-2022 End: 10-24-2022 ambulatory Tre Go PT, DPT Work Phone: [facility] Comment on above: Chronic pain of righ t knee (Primary Dx) Start: 10-21-2022 End: 10-21-2022 ambulatory UNKNOWN PROVIDER Facility:[facility] Start: 10-21-2022 End: 10-21-2022 ambulatory [facility] Comment on above: Chronic pain of righ t knee (Primary Dx) Start: 10-16-2022 End: 10-16-2022 ambulatory Tre Go PT, DPT Work Phone: [facility] Comment on above: Chronic pain of righ t knee (Primary Dx) Start: 10-15-2022 Telephone encounter Chika Carpenter MD Work Phone: Orthopaedics Comment on above: Appointment Start: 10-14-2022 End: 10-14-2022 ambulatory [facility] Comment on above: Chronic pain of righ t knee (Primary Dx) Start: 10-10-2022 End: 10-10-2022 ambulatory UNKNOWN PROVIDER Facility:[facility] Start: 10-10-2022 End: 10-10-2022 ambulatory Ava Keita PT Work Phone: [facility] Comment on above: Chronic pain of righ t knee (Primary Dx); S/P total knee arthroplasty, right Start: 10-09-2022 Orders Only Timothy Correa MD Work Phone: [facility] Start: 10-07-2022 ambulatory Chika spence MD Work Phone: Orthopaedics Comment on above: Physical therapy Start: 10-03-2022 Telephone encounter Serina Pinto [facility] Comment on above: Discuss results of e xam, other provider Start: 10-03-2022 End: 10-03-2022 Patient encounter procedure Timothy Correa MD Work Phone: [facility] Start: 10-03-2022 End: 10-03-2022 Periodic preventive med est patient 40-64yrs Timothy Correa MD Work Phone: [facility] Comment on above: Annual physical exam (Primary Dx); Vitamin D deficiency; B12 deficiency; Essential hypertension, benign; Type 2 diabetes mellitus without complication, without long-term current use of insulin (HCC); Encounter for long-term (current) use of medications; Pure hypercholesterolemia; Screening for malignant neoplasm of prostate; Need for hepatitis C screening test Start: 10-02-2022 End: 10-02-2022 ambulatory UNKNOWN PROVIDER Facility:[facility] Start: 10-02-2022 End: 10-02-2022 ambulatory Tre Go PT, DPT Work Phone: [facility] Comment on above: Pain in right hip; Chronic pain of right knee Start: 09-30-2022 End: 09-30-2022 Home visit Kirill Noe PT Work Phone: [facility] Comment on above: PT AGENCY DC W VISIT Start: 09-26-2022 End: 09-26-2022 Home visit Kirill Noe PT Work Phone: [facility] Comment on above: PT ROUTINE Start: 09-25-2022 End: 09-25-2022 ambulatory UNKNOWN PROVIDER Facility:[facility] Start: 09-25-2022 End: 09-25-2022 Patient encounter procedure Matthieu Esparza PA-C Work Phone: Orthopaedics Comment on above: S/P total knee arthr oplasty, right (Primary Dx) Start: 09-25-2022 End: 09-25-2022 Subsequent hospital visit by physician Radio Sanchez [facility] Work Phone: Radiology Comment on above: Right knee pain, uns pecified chronicity [M25.561] Start: 09-23-2022 End: 09-23-2022 Home visit Kirill Noe PT Work Phone: [facility] Comment on above: PT ROUTINE Start: 09-20-2022 End: 09-20-2022 Home visit Kirill Noe PT Work Phone: [facility] Comment on above: PT ROUTINE Start: 09-18-2022 End: 09-18-2022 Home visit Kirill Noe PT Work Phone: [facility] Comment on above: PT ROUTINE Start: 09-16-2022 End: 09-16-2022 Home visit Kirill Noe PT Work Phone: [facility] Comment on above: PT ROUTINE Start: 09-14-2022 End: 09-14-2022 Home visit Trupti Bar [employer]IMMER Work Phone: [facility] Comment on above: HAND [employer] [place] VISIT Start: 09-14-2022 Telephone encounter Trupti Montgomery on [employer] Work Phone: [facility] Comment on above: Home Care (Unmade PT visit ) Start: 09-12-2022 Telephone encounter Chika Carpenter MD Work Phone: [address] Comment on above: Patient Update Start: 09-12-2022 End: 09-12-2022 Home visit Kirill Noe PT Work Phone: [facility] Comment on above: PT SOC Start: 09-11-2022 Telephone encounter Sanaz MOBLEY S [facility] Comment on above: Home Care (Confirmat ion call) Start: 09-10-2022 Letter encounter Timothy Correa MD Work Phone: [facility] Start: 09-10-2022 End: 09-11-2022 ambulatory UNKNOWN PROVIDER Facility:[facility] Start: 09-10-2022 End: 09-10-2022 Subsequent hospital visit by physician [facility] Comment on above: Primary osteoarthrit is of right knee [M17.11] Start: 09-09-2022 Telephone encounter Chika Carpenter MD Work Phone: Orthopaedics Comment on above: Appointment Start: 09-07-2022 ambulatory UNKNOWN PROVIDER Facili ty:[facility] Start: 09-07-2022 Encounter for other preprocedural examination UNKNOWN PROVIDER [facility] Start: 09-07-2022 End: 09-07-2022 [facility] Start: 09-07-2022 End: 09-07-2022 Subsequent hospital visit by physician [facility] Comment on above: Primary osteoarthrit is of right knee [M17.11] Start: 09-04-2022 ambulatory Chika spence MD Work Phone: Orthopaedics Comment on above: Forms Start: 09-04-2022 E-mail encounter danny m caregiver Chika Carpenter MD Work Phone: [facility] Start: 09-03-2022 Telephone encounter Chika Carpenter MD Work Phone: Orthopaedics Comment on above: Forms Start: 08-26-2022 Refill Timothy Correa MD Work Phone: [facility] Comment on above: Refill Start: 08-22-2022 Patient encounter status Zechariah Carpenter MD Work Phone: Orthopaedics Start: 08-22-2022 Telephone encounter Chika Carpenter MD Work Phone: Orthopaedics Comment on above: Orders Start: 08-20-2022 Telephone encounter Chika Carpenter MD Work Phone: [address] Comment on above: Pre-Op Teaching Start: 08-16-2022 End: 08-17-2022 ambulatory UNKNOWN PROVIDER Facility:[facility] Start: 08-16-2022 Encounter for other preprocedural examination UNKNOWN PROVIDER [facility] Start: 08-16-2022 End: 08-16-2022 Admission to establishment [place] [address] Work Phone: [facility] Start: 08-16-2022 End: 08-16-2022 ambulatory [place] [address] Work Phone: Pre Anesthesia Comment on above: [...] Anesthesia Start: 08-02-2022 ambulatory UNKNOWN PROVIDER Facili ty:[facility] Start: 08-02-2022 End: 08-02-2022 Patient encounter procedure Chika Carpenter MD Work Phone: Orthopaedics Comment on above: 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 (Primary Dx) Start: 08-02-2022 End: 08-02-2022 Subsequent hospital visit by physician Radio Sanchez [facility] Work Phone: Radiology Comment on above: Right shoulder pain, unspecified chronicity [M25.511] Start: 07-29-2022 Refill Timothy Correa MD Work Phone: [facility] Comment on above: Refill Start: 07-19-2022 [...] Orders Only Timothy Correa MD Work Phone: [facility] Start: 03-04-2022 ambulatory Chika spence MD [...] 11-15-2021 ambulatory Kusum barraza RN Work Phone: [facility] Care Management/Patient Access Start: 11-15-2021 Coordination of care plan Kusum Reid RN Work Phone: [facility] Care Management/Patient Access Comment on above: Care Coordination; H ealt Maintenance Outreach; Medical Record Review Start: 04-25-2020 End: 04-25-2020 Subsequent hospital visit by physician Lena Liao Work Phone: [facility] Comment on above: Arrived Start: 03-27-2020 End: 03-27-2020 Subsequent hospital visit by physician Awilda Vivas Work Phone: [employer] Comment on above: Acute pain of right [...] above: Order Comment: The B josé manuel Herman Access DxI Total???Prostate Specific Antigen???(PSA) method is [...] C H8, HEPATIC, HDL, PSA ####[facility] [id number] [place], [address] Start: 10-06-2023 3 comp foot exam completed [...] Comment: Speci men Type: BLOOD SPECIMENOrdering Facility: [facility] Address: [place] [address] Performed By: #### T [id number] ####[facility] [id number] [place] [address] [place] Start: 08-02-2022 Arthrocentesis aspir [...] RSV Vaccine (1 - 1-dose 75+ series) [facility] Start: 2034 RSV vaccine (adult) (1 - 1-dose 75+ series) RSV vaccine (adult) (1 - 1-dose 75+ series) [facility] Start: 10-02-2026 PROSTATE CANCER SCREENING DISCUSSION PROSTATE CANCER SCREENING DISCUSSION [facility] Start: 10-02-2026 Prostate specific antigen measurement Prostate Cancer Screening Discussion [facility] Start: 12-07-2025 DTaP/Tdap/Td vaccine (3 - Td) DTaP/Tdap/Td vaccine (3 - Td) [place], [place] Start: 12-07-2025 Tetanus vaccination [facility] Start: 12-07-2025 Urine microalbumin profile DTaP,Tdap,Td Vaccine (3 - Td or Tdap) [facility] Start: 10-18-2025 Diabetic foot examination Foot [...] procedure 10/07/2024 8:00 AM EST Office Visit [facility] [address] [place] [address] Timothy Correa MD [address] [address] [facility] Start: 10-06-2024 Creatinine measurement Basic Metabolic Panel [facility] Start: 10-06-2024 Diabetic foot examination Foot Exam [facility] Start: 10-06-2024 Glaucoma screening Eye Exam [facility] Start: 10-06-2024 Lipid panel Lipid Profile [facility] Start: 10-06-2024 Prostate specific antigen measurement Prostate Cancer Screening (shared decision making) [facility] Start: 10-06-2024 Urine screening for protein [facility] Start: 09-24-2024 Creatinine measurement Basic Metabolic Panel [facility] Start: 08-19-2024 End: 08-19-2024 Professional / ancillary services management 08/19/2024 2:00 PM EST Ancillary Procedure [facility] [address] [place] [address] [facility] Start: 08-12-2024 Welcome to Medicare Visit (G0402) Welcome to Medicare Visit (G0402) [facility] Start: 04-11-2024 Covid-19 Vaccine ( season) Covid-19 Vaccine ( season) [facility] Start: 04-11-2024 Covid-19 Vaccine ( season) Covid-19 Vaccine ( season) [facility] Start: 04-11-2024 Influenza vaccination Influenza Vaccine (#1) [facility] Start: 04-05-2024 Hemoglobin A1c measurement Hemoglobin A1C [facility] Start: 2024 Abdominal aortic aneurysm screening Abdominal Aortic Aneurysm Imaging [facility] Start: 2024 Advance Directive Discussion Advance Directive Discussion [facility] Start: 2024 Pneumococcal vaccination Pneumococcal Vaccine(s) (2 of 2 - PPSV23) [facility] Start: 10-06-2023 End: 10-06-2023 Patient encounter procedure 10/06/2023 8:00 AM EST Office Visit [facility] [address] [place] [address] Timothy Correa MD [address] [place] [address] [facility] Start: 10-03-2023 Diabetic foot examination Foot Exam [facility] Start: 10-03-2023 Hepatitis B surface antibody level LDL CHOLESTEROL [facility] Start: 10-03-2023 Lipid panel Lipid Profile [facility] Start: 10-03-2023 Urine screening for protein Microalbumin [facility] Start: 09-18-2023 BP CONTROLLED (<130/80) BP CONTROLLED (<130/80) [facility] Start: 09-16-2023 BP CONTROLLED (<130/80) BP CONTROLLED (<130/80) [facility] Start: 09-12-2023 BP CONTROLLED (<130/80) BP CONTROLLED (<130/80) [facility] Start: 09-11-2023 Basic metabolic 2000 panel - Serum or Plasma Basic Metabolic Panel [facility] Start: 09-11-2023 Creatinine measurement Basic Metabolic Panel [facility] Start: 09-08-2023 End: 09-08-2023 Patient encounter procedure 09/08/2023 8:20 AM EST Office Visit [facility] [address] [place] [address] Timothy Correa MD [address] [place] [address] [facility] Start: 08-16-2023 Basic metabolic 2000 panel - Serum or Plasma Basic Metabolic Panel [facility] Start: 07-18-2023 PROSTATE CANCER SCREENING DISCUSSION PROSTATE CANCER SCREENING DISCUSSION [facility] Start: 05-11-2023 Influenza vaccination Influenza Vaccine (#1) [facility] Start: 04-11-2023 Covid-19 Vaccine () Covid-19 Vaccine () [facility] Start: 04-11-2023 Influenza vaccination [facility] Start: 02-13-2023 Hemoglobin A1c measurement [facility] Start: 02-13-2023 Hemoglobin A1c/Hemoglobin.total in Blood HBA1C [facility] Start: 11-07-2022 Diabetic retinal eye [facility] Start: 11-07-2022 Glaucoma screening Eye Exam [facility] Start: 10-03-2022 End: 10-03-2022 Patient encounter procedure 10/03/2022 [facility] Timothy Correa MD [address] [place] [address] [facility] Start: 10-02-2022 Basic metabolic 2000 panel - Serum or Plasma Basic Metabolic Panel [facility] Start: 10-02-2022 Lipid panel Lipid Profile [facility] Start: 10-02-2022 Urine screening for protein Microalbumin [facility] Start: 08-29-2022 End: 08-29-2022 Patient encounter procedure 08/29/2022 [facility] Timothy Correa MD [address] [place] [address] [facility] Start: 08-11-2022 DEPRESSION ASSESSMENT DEPRESSION ASSESSMENT [facility] Start: 06-28-2022 Diabetic foot examination Foot Exam [facility] Start: 05-11-2022 Influenza vaccination Influenza Vaccine (#1) [facility] Start: 04-11-2022 Influenza vaccination INFLUENZA (#1) [facility] Start: 04-01-2022 Hemoglobin A1c measurement Hemoglobin A1C [facility] Start: 01-23-2022 Diabetic retinal eye exam Eye Exam [facility] Start: 12-11-2021 COVID-19 Vaccine (3 - Booster for Moderna series) COVID-19 Vaccine (3 - Booster for Moderna series) [facility] Start: 09-07-2021 COVID-19 VACCINE (3 - Booster for Moderna series) COVID-19 VACCINE (3 - Booster for Moderna series) [facility] Start: 09-07-2021 COVID-19 Vaccine (3 - Moderna series) COVID-19 Vaccine (3 - Moderna series) [facility] Start: 08-11-2021 DEPRESSION ASSESSMENT DEPRESSION ASSESSMENT [facility] Start: 11-26-2020 Creatinine measurement Creatinine monitoring [facility], [place] Start: 11-26-2020 Potassium monitoring Potassium monitoring [place], [place] Start: 08-09-2020 [object Object] Diabetic foot exam [place] Start: 08-09-2020 A1C test (Diabetic or Prediabetic) A1C test (Diabetic or Prediabetic) [place] Start: 08-09-2020 Creatinine monitoring Creatinine monitoring [place], [place] Start: 08-09-2020 Diabetic foot examination Diabetic foot exam [place] Start: 08-09-2020 Diabetic microalbuminuria test Diabetic microalbuminuria test [place] Start: 08-09-2020 HbA1c (Bld) [Mass fraction] A1C test (Diabetic or Prediabetic) [place] Start: 08-09-2020 Lipid panel Lipid screen [place] Start: 08-09-2020 Lipid screen Lipid screen [place] Start: 08-09-2020 Potassium monitoring Potassium monitoring [place] Start: 04-11-2020 Influenza vaccination [place] Start: 07-18-2019 Diabetic retinal exam Diabetic retinal exam [place], [place] Start: 2019 Hepatitis B (HBV) Vaccine (optional start 60+ years) Hepatitis B (HBV) Vaccine (optional start 60+ years) [facility] Start: 2019 Hepatitis B Vaccine (1 of 3 - Risk 3-dose series) Hepatitis B Vaccine (1 of 3 - Risk 3-dose series) [facility] Start: 2019 RSV Vaccine (1 - 1-dose 60+ series) RSV Vaccine (1 - 1-dose 60+ series) [facility] Start: 2019 RSV vaccine (adult) (1 - Risk 60-74 years 1-dose series) RSV vaccine (adult) (1 - Risk 60-74 years 1-dose series) [facility] Start: 2019 RSV vaccine (optional 60+ years) RSV vaccine (optional 60+ years) [facility] Start: 01-16-2019 Hemoglobin A1c/Hemoglobin.total in Blood HBA1C [facility] Start: 03-22-2018 Pneumococcal vaccination [facility] Start: 03-22-2018 Pneumococcal Vaccine: 65+ (2 of 2 - PCV) Pneumococcal Vaccine: 65+ (2 of 2 - PCV) [facility] Start: 2009 Colon cancer screen colonoscopy Colon cancer screen colonoscopy [place], [place] Start: 2009 Measurement of occult blood in single stool specimen FIT [facility] Start: 2009 Screening for malignant neoplasm of colon [facility] Start: 2009 Shingles Vaccine (1 of 2) Shingles Vaccine (1 of 2) [place] Start: 2009 SHINGRIX VACCINE (1 of 2) SHINGRIX VACCINE (1 of 2) [facility] Start: 2009 Varicella-zoster vaccine (product) Shingles (RZV) Vaccine (1 of 2) [facility] Start: 2004 COLOGUARD (FIT-DNA) COLOGUARD (FIT-DNA) [facility] Start: 2004 Colonoscopy COLONOSCOPY [facility] Start: 2004 COLORECTAL CANCER SCREENING COLORECTAL CANCER SCREENING [facility] Start: [address] COLONOGRAPHY [facility] Start: 2004 FECAL OCCULT BLOOD FECAL OCCULT BLOOD [facility] Start: 2004 Screening for malignant neoplasm of colon [facility] Start: 2004 SIGMOIDOSCOPY SIGMOIDOSCOPY [facility] Start: 1978 Hepatitis A (HAV) Vaccine (optional start 19+ years) Hepatitis A (HAV) Vaccine (optional start 19+ years) [facility] Start: 1978 Urine microalbumin profile [facility] Start: 1977 ANNUAL PCP TEAM CHRONIC DISEASE VISIT ANNUAL PCP TEAM CHRONIC DISEASE VISIT [facility] Start: 1977 Anxiety Screening Anxiety Screening [facility] Start: 1977 BP CONTROLLED (<130/80) BP CONTROLLED (<130/80) [facility] Start: 1977 Depression Screening Depression Screening [facility] Start: 1977 Hepatitis B surface antibody level LDL CHOLESTEROL [facility] Start: 1977 Hepatitis C screening Hepatitis C Antibody [facility] Start: 1977 HEPATITIS C SCREENING HEPATITIS C SCREENING [facility] Start: 1977 HIV SCREENING HIV SCREENING [facility] Start: 1977 HIV screening HIV Screening [facility] Start: 1971 Adult depression screening assessment DEPRESSION SCREENING [facility] Start: 1969 3 comp foot exam completed DIABETIC FOOT EXAM [facility] Start: 1969 Diabetic foot examination Diabetic Foot Exam [facility] Start: 1969 Glaucoma screening Dilated Retinal Exam [facility] Start: 1969 Hepatitis B screening URINE ALBUMIN:CREATININE RATIO [facility] Start: 1969 Hepatitis C antibody, confirmatory test DILATED RETINAL EXAM [facility] Start: 1965 PNEUMOCOCCAL (1 - PCV) PNEUMOCOCCAL (1 - PCV) [facility] Start: 1965 Pneumococcal vaccination Pneumococcal Vaccine (1 - PCV) [facility] Start: 1959 Abdominal aortic aneurysm screening Abdominal Aortic Aneurysm Screening [facility] Start: 1959 Screening for malignant neoplasm of colon [facility] includes fractions if performed VITAMIN D, 25-HYDROXY Lab Routine Vitamin D deficiency Ordered: 10/03/2022 [facility] Comment on above: Ordered: 10/03/2022 25 hydroxy includes fractions if performed VITAMIN D, 25-HYDROXY Lab Routine Vitamin D deficiency Ordered: 10/06/2023 [employer] Work Phone: Comment on above: Ordered: 10/06/2023 Assay of gammaglobul in iga igd igg igm each MICROALBUMIN, URINE Lab Routine Type 2 diabetes mellitus without complication, without long-term current use of insulin (HCC) Ordered: 10/03/2022 [employer] Work Phone: Comment on above: Ordered: 10/03/2022 Assay of gammaglobul in iga igd igg igm each MICROALBUMIN, URINE Lab Routine Type 2 diabetes mellitus without complication, without long-term current use of insulin (HCC) Ordered: 10/06/2023 [employer] Work Phone: Comment on above: Ordered: 10/06/2023 Assay of thyroid stimulating hormone tsh TSH Lab Routine Pure hypercholesterolemia Ordered: 10/03/2022 [employer] Comment on above: Ordered: 10/03/2022 Assay of thyroid stimulating hormone tsh TSH Lab Routine Pure hypercholesterolemia Ordered: 10/06/2023 [employer] Work Phone: Comment on above: Ordered: 10/06/2023 Basic metabolic 2000 panel - Serum or Plasma BASIC METABOLIC PANEL Lab Routine Encounter for long-term (current) use of medications Ordered: 10/06/2023 [employer] Work Phone: Comment on above: Ordered: 10/06/2023 Blood count complete auto&auto difrntl wbc CBC WITH DIFFERENTIAL Lab Only Routine Encounter for long-term (current) use of medications Ordered: 10/06/2023 [employer] Work Phone: Comment on above: Ordered: 10/06/2023 Blood occult fecal h gb deter ia qual feces 1-3 FECAL IMMUNOCHEMICAL TEST (FIT) Lab Routine Colon cancer screening Ordered: 04/18/2022 [employer] Work Phone: Comment on above: Ordered: 04/18/2022 End: 06-14-2024 Bone &/joint imaging 3 phase study NM BONE 3 PHASE Radiology Routine Pain due to internal orthopedic prosthetic devices, implants and grafts, initial encounter ([facility]) S/P total knee replacement using cement, left 1 Occurrences starting 05/16/2023 until 06/14/2024 [facility] Work Phone: Comment on above: 1 Occurrences starting 05/16/2023 until 06/14/2024 CBC W Auto Different ial panel - Blood COMPLETE BLOOD COUNT W/DIFF Lab Routine Encounter for long-term (current) use of medications Ordered: 10/06/2023 [employer] Work Phone: Comment on above: Ordered: 10/06/2023 End: 09-07-2022 Ct lower extremity w/o contrast material [facility] Work Phone: Comment on above: 1 Occurrences starting 09/07/2022 until 09/07/2022 End: 10-09-2023 Ct lower extremity w/o contrast material CT KNEE WO IVCON RT Radiology Routine Primary osteoarthritis of right knee 1 Occurrences starting 09/09/2022 until 10/09/2023 [facility] Work Phone: Comment on above: 1 Occurrences starting 09/09/2022 until 10/09/2023 Ct lower extremity w /o contrast material CT KNEE WO IVCON RT Radiology Routine Primary osteoarthritis of right knee 09/10/2022 6:57 AM EST [facility] Work Phone: End: 04-25-2020 CT LUMBAR SPINE WO CONTRAST CT LUMBAR SPINE WO CONTRAST Imaging Routine Once for 1 Occurrences starting 04/25/2020 until 04/25/2020 [facility] Comment on above: Once for 1 Occurrences starting 04/25/20 20 until 04/25/2020 CT LUMBAR SPINE WO CONTRAST CT LUMBAR SPINE WO CONTRAST Imaging Routine 04/25/2020 9:04 AM EDT [facility] Cyanocobalamin vitam in b-12 VITAMIN B12 (CYANOCOBALAMIN) Lab Routine B12 deficiency Ordered: 10/03/2022 [employer] Comment on above: Ordered: 10/03/2022 Cyanocobalamin vitam in b-12 VITAMIN B12 (CYANOCOBALAMIN) Lab Routine B12 deficiency Ordered: 10/06/2023 [employer] Work Phone: Comment on above: Ordered: 10/06/2023 Diabetes tracking panel HEMOGLOB IN A1C Lab Routine Type 2 diabetes mellitus without complication, without long-term current use of insulin (HCC) Ordered: 10/06/2023 [employer] Work Phone: Comment on above: Ordered: 10/06/2023 EKG 12 Lead EKG 12 Lead ECG STAT 11/27/2019 3:34 AM EDT [facility] Hepatic function panel HEPATIC F UNCTION PANEL Lab Routine Encounter for long-term (current) use of medications Ordered: 10/06/2023 [facility] [employer] Work Phone: Comment on above: Ordered: 10/06/2023 Hepatitis C virus Ab [Units/volume] in Serum by Immunoassay HEPATITIS C ANTIBODY Lab Routine Need for hepatitis C screening test Ordered: 10/03/2022 [employer] Comment on above: Ordered: 10/03/2022 Initiate Oxygen Ther apy Protocol Initiate Oxygen Therapy Protocol Respiratory Care Routine Daily until discontinued starting 11/27/2019, 2 completed [facility] Comment on above: Daily until discontinued starting 2019, 2 completed LAB COLOGUARD COLON CANCER SCREEN LAB COLOGUARD COLON CANCER SCREEN Lab Routine Colon cancer screening Ordered: 10/06/2023 [employer] Work Phone: Comment on above: Ordered: 10/06/2023 Lipid 1996 panel - S sheldon or Plasma FULL LIPID PROFILE Lab Routine Pure hypercholesterolemia Ordered: 10/03/2022 [employer] Comment on above: Ordered: 10/03/2022 Lipid 1996 panel - S sheldon or Plasma FULL LIPID PROFILE Lab Routine Pure hypercholesterolemia Ordered: 10/06/2023 [employer] Work Phone: Comment on above: Ordered: 10/06/2023 End: 03-22-2020 MRI LUMBAR SPINE W WO CONTRAST MRI LUMBAR SPINE W WO CONTRAST Imaging Routine Once for 1 Occurrences starting 03/22/2020 until 03/22/2020 [employer] [place] Comment on above: Once for 1 Occurrences starting 03/22/20 20 until 03/22/2020 MRI LUMBAR SPINE W W O CONTRAST MRI LUMBAR SPINE W WO CONTRAST Imaging Routine 03/22/2020 12:52 PM EDT [employer], [place] Prostate specific Ag panel - Serum or Plasma PROSTATE SPECIFIC ANTIGEN (PSA) Lab Routine Screening for malignant neoplasm of prostate Ordered: 10/06/2023 [employer] Work Phone: Comment on above: Ordered: 10/06/2023 End: 03-03-2023 XR KNEE GENERAL 4V AP BOTH/PA BOTH/LAT/MERC BILATERAL XR KNEE GENERAL 4V AP BOTH/PA BOTH/LAT/MERC BILATERAL Radiology Routine Pain 1 Occurrences starting 02/01/2022 until 03/03/2023 [facility] Work Phone: Comment on above: 1 Occurrences starting 02/01/2022 until 03/03/2023 End: 06-12-2024 XR KNEE POST 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 XR KNEE POST 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 Radiology Routine Status post total left knee replacement 1 Occurrences starting 05/14/2023 until 06/12/2024 [facility] Work Phone: Comment on above: 1 Occurrences starting 05/14/2023 until 06/12/2024 [facility] Immunizations Immunization Date Immunization Notes Care Provider Fa [facility] 10-18-2024 Pneumococcal conjuga te 20 valent (PCV20), polysaccharide [id number] conjugate, adjuvant, PF (FXS=006) Timothy Correa MD Work Phone: [facility] 10-14-2024 Hemoglobin A1C Timothy Correa MD Work Phone: [facility] 10-06-2023 Hemoglobin A1C Timothy Correa MD Other Phone: [email or web address] Work Phone: 08-16-2022 Hemoglobin A1C Timothy Correa MD Work Phone: [facility] 08-10-2022 influenza, high dose seasonal, preservative-free [facility] 08-10-2022 influenza virus vacc ine, unspecified formulation Timothy Correa MD Work Phone: [facility] 10-02-2021 Hemoglobin A1C Kusum Reid RN Work Phone: [facility] 07-13-2021 Moderna Monovalent ( 12+ yrs) COVID-19 vaccine, mRNA, spike protein, LNP, PF, 100 mcg/0.5 mL (MPV=595) Timothy Correa MD Work Phone: [facility] 06-06-2021 influenza, injectabl e, quadrivalent, preservative free Kusum Reid RN Work Phone: [facility] 06-06-2021 influenza virus vacc ine, unspecified formulation Timothy Correa MD Work Phone: [facility] 06-05-2021 Moderna Monovalent ( 12+ yrs) COVID-19 vaccine, mRNA, spike protein, LNP, PF, 100 mcg/0.5 mL (VTK=450) Timothy Correa MD Work Phone: [facility] 03-22-2017 pneumococcal polysaccharide vaccine, 23 valent Tray Townsend [facility] SHAKILA 12-08-2015 tetanus toxoid, redu froilan diphtheria toxoid, and acellular pertussis vaccine, adsorbed Tray Townsend [facility] 08-30-1999 tetanus toxoid, redu froilan diphtheria toxoid, and acellular pertussis vaccine, adsorbed Tray Townsend [facility], SHAKILA zoster vac recomb adjuvanted (SHINGRIX) 50 MCG/0.5ML SUSR injection Timothy Correa MD Work Phone: [facility] Payers Date Payer Category Payer Medicare FFS MEDICARE [id number] 2024 Medicare [id number] 2024 Self-pay 2014 Unknown BCBS [place] - [place] P PO xxxxxxxxxxxx 2014-Present [address] [place] [address] xxxxxxxxxxxx [id number] 2004 Blue Cross Blue Shield ANTH - BLUE CROSS [id number] 2004 Unknown [id number] 2004 Unknown ANTHEM BLUE CARD PPO OOS [id number] 2004-Present [phone] [address] [place] [address] PPO [id number] 2004 Unknown [id number] 1959 Unknown [id number] 732 1959 Unknown [id number] 732 1959 Unknown [id number] 732 1959 Unknown [id number] 732 1959 Unknown [id number] 732 Unknown [id number] 462 Unknown [id number] 462 Social History Date Type Detail Facility Start: 11-09-2019 End: 04-24-2023 Tobacco smoking status NHIS Former smoker [place], [place] Start: 08-09-2019 History SDOH Financial 5 [place] Start: 08-09-2019 End: 12-22-2019 History SDOH Food Worry 1 [place], [place] Start: 08-09-2019 End: 12-22-2019 History SDOH Transport Med 2 [place], [place] Start: 1960 Sex Assigned At Not on file [place] Exposure to SARS-CoV -2 (event) Unable to assess [place] Start: 03-27-2020 End: 04-24-2023 [facility] and exposure [facility] 2020 End: 03-27-2020 Alcohol intake Current drinker of alcohol (finding) [place] Start: 03-27-2020 History SDOH Social Connections Phone 3 [place] Start: 03-27-2020 History SDOH Physica l Activity DPW 0 [place] Start: 02-12-2022 End: 10-03-2022 Exposure to SARS-CoV-2 (event) Not sure [place] Start: 07-15-1983 End: 07-15-2013 History of tobacco use Current smoker [facility] Start: 07-15-1983 End: 07-15-2013 History of tobacco use Cigarette Smoker [facility] Start: 07-15-2014 End: 08-12-2024 Cigarettes smoked current (pack per day) - Reported 0.1 [facility] Start: 07-18-2021 End: 06-21-2022 Alcohol intake Ex-drinker (finding) [facility] Start: 10-25-2020 History SDOH Alcohol Comment not weekly [facility] Start: 10-25-2022 End: 08-12-2024 Gender identity Not on file [facility] National Score (1-10 0), lower number is lower risk 41 [facility] Are you now , , , , never or living with a partner? [facility] Start: 05-23-2020 Sex Male (finding) [facility] Procedure Code Equipment Code Equipment Origin al Text Equipment Identifier Dates Renaldo Bn Smplx Hv Fd - [id number] Start: 08-09-2014 Comment on above: Description: Farhat Royal HV Full Dose US Comp Fem 5 Lt Kn Cr Renaldo Trthln - [id number] Start: 08-09-2014 Ins Tib 6 11mm X 3 Cs Trthln - [id number] Start: 08-09-2014 Comp Pat 10mm 35 mm Asym Trthln - [id number] Start: 08-09-2014 Baseplt Tib Trth ln 6 Prim - [id number] Start: 08-09-2014 Component Triathlon 5 Pa Femoral Cruciate Retain Bead Knee Right - [id number] Start: 09-10-2022 Component Tritanium 35mm Metal 10mm Patellar Asymmetric Knee - [id number] Start: 09-10-2022 Insert Triathlon 6 9mm Tibial Bearing Condylar Stabilize Sterile Knee - [id number] Start: 09-10-2022 Baseplate Triathlon 6 Tritanium [id number] Tibial 4 Cruciform Peg Keel Knee - [id number] Start: 09-10-2022 Goals Date Patient Goal [...] on: 01/17/2025 09:15 PM Modules accepted: Orders [facility] 01-17-2025 Miscellaneous Notes Addended by: TIMOTHY CORREA on: 01/17/2025 09:15 PM Modules accepted: Orders documented in this encounter [facility] 09-08-2024 Telephone encounter Note Situation: calling asking for images of CT to be forwarded to their office. Background: na Assessment: na Recommendation: provided with number to medical records and call was [phone] Miscellaneous Notes Situation: calling asking for images of CT to be forwarded to their office. Background: na Assessment: na Recommendation: provided with number to medical records and call was transferred [phone] here at office window, Requesting that previous [address] report be faxed to [facility] with referral order. Records printed and faxed as requested. Nothing further needed at this time documented in this encounter [facility] 09-07-2024 Note here at office window, Requesting that previous [address] report be faxed to [facility] with referral order. Records printed and faxed as requested. Nothing further needed at this time [facility] 09-07-2024 Telephone encounter Note here at office window, Requesting that previous [address] report be faxed to [facility] with referral order. Records printed and faxed as requested. Nothing further needed at this time [facility] History of Present illness Narrative Images [...] EXTERNAL SERVICE REQUEST FOR CARE OUTSIDE THE [facility] Patient was identified by name and date of . Jeanie Perkins MA documented in this encounter [facility] 12-25-2023 Telephone encounter Note Pt's stopped in. Pt already sees Debbie Miranda at [facility] next week. Pt will discuss this with her. If pt needs anything else, they will let us know. [facility] 12-25-2023 Miscellaneous Notes Pt's stopped in. Pt already sees Debbie Miranda at [facility] next week. Pt will discuss this with her. If pt needs anything else, they will let us know. Attempted to contact patient. Left voicemail message on listed contact # to call [facility] at [phone]. Asked patient to reference #[phone] when calling back to our office. Ok to relay message below. See provider's note and assist pt with scheduling with PM&R delilah and also put on wait list if there is nothing soon. Pt's stopped in. Wants to know what next steps are. [facility] US was negative for DVT. Pt is in pain. Please advise. documented in this encounter [facility] 12-23-2023 Telephone encounter Note Attempted to contact patient. Left voicemail message on listed contact # to call [facility] at [phone]. Asked patient to reference #99 when calling back to our office. Ok to relay message below. See provider's note and assist pt with scheduling with PM&R delilah and also put on wait list if there is nothing soon. [facility] 12-19-2023 Telephone encounter Note Pt's stopped in. Wants to know what next steps are. They will look on MyChart for results of labs. US was negative for DVT. Pt is in pain. Please advise. [facility] 12-16-2023 History of Present illness Narrative Identification [...] + DOPPLER; Future documented in this encounter [facility] 10-06-2023 History of Present illness Narrative Patient [...] CANCER SCREEN documented in this encounter [facility] Work Phone: 09-01-2023 Telephone encounter Note Central Correspondence has received a completed Stop-Bang Questionnaire related to WILIAM, lab work and EKG results from [facility]. Nothing for Dr. Correa to complete/sign. Scanned into Media and Dr. Correa notified on 09/01/2023. [facility] 09-01-2023 Miscellaneous Notes [facility] has received a completed Stop-Bang Questionnaire related to WILIAM, lab work and EKG results from [facility]. Nothing for Dr. Correa to complete/sign. Scanned into Media and Dr. Correa notified on 09/01/2023. documented in this encounter [facility] 08-14-2023 Note HNO ID: [id number] Author: CHIKA CARPENTER MD Service: ? Author [...] in left hip .LEFT HIP PAIN (accession [id number]), RIGHT KNEE PAIN (accession [id number]) TECHNIQUE: XR AP PELVIS, CROSSTABLE LATERAL LEFT [...] is evident. Impression: IMPRESSION: No acute abnormality Tow Truck Dispatcher: [facility] Transcribe Date/Time: Jul 20 2023 1:19P [...] in left hip .LEFT HIP PAIN (accession [id number]), RIGHT KNEE PAIN (accession [id number]) TECHNIQUE: XR AP PELVIS, CROSSTABLE LATERAL LEFT [...] is evident. Impression: IMPRESSION: No acute abnormality Tow Truck Dispatcher: [facility] Transcribe Date/Time: Jul 20 2023 1:19P [...] orthopedic problems Chika Carpenter MD Electronic Signature [facility] 07-18-2023 Note HNO ID: [id number] Author: Samantha Aguirre Tech Service: ? Author Type: Horticultural Services Supervisor Type: Progress Notes Filed: 07/18/2023 8:27 AM [...] Emely Cavanaugh July 18, 2023 8:26 AM [facility] 07-18-2023 History of Present illness Narrative [...] 2023 8:26 AM documented in this encounter [facility] 06-27-2023 Note HNO ID: [id number] Author: Chika Carpenter MD Service: ? Author [...] Chika Carpenter M.D. Department of Orthopaedic Surgery [facility] 06-27-2023 History of Present illness Narrative [...] Chika Carpenter M.D. Department of Orthopaedic Surgery [facility] documented in this encounter [facility] 06-16-2023 Miscellaneous Notes Please reschedule Roberto' appt to 06/20/23 at 11am and leave a message on the home phone to let them know per spouse Lien. documented in this encounter [facility] 05-23-2023 Note HNO ID: [id number] Author: Indio Samuel, [place] Service: Nuclear Medicine [...] 08:15 PATIENT DISCHARGED TO: Ambulatory patient, left [place] department area. A Diagnostic radioactive procedure has taken place, with no further precautions necessary other than routine body substance precautions. More information regarding radiation safety can be found using this link: [email or web address]%20Medi [email or web address] SIGNATURE: GERMAINE Gonzalez PATIENT NAME: Roberto Osborn DATE: May 23, 2023 TIME: 8:48 AM PAGER/CONTACT #: [facility] 05-23-2023 History of Present illness Narrative [...] DIAGNOSTIC CT PERFORMED: No IV SITE: Ambulatory: [place] only - direct IV injection in the [...] safety can be found using this link: [email or web address] %[email or web address] SIGNATURE: GERMAINE Gonzalez PATIENT NAME: Roberto Osborn SR DATE: May 23, 2023 TIME: 8:48 AM PAGER/CONTACT #: documented in this encounter [facility] 05-20-2023 Miscellaneous Notes Scheduled and called Lien, ailyn voicemail message with appointment information. Please leave a voice mail at [phone] for spouse Lien for two appts for Roberto. He needs a bone scan result appt on 05/30. Please schedule in the am hold slot. Also the 08/06 appt needs rescheduled to 08/01 in the earliest am. Just let her know on the message what was done. documented in this encounter [facility] 05-16-2023 Note HNO ID: [id number] Author: Regla Higgins PA-C Service: ? Author Type: Physician Corporate Travel Counselor Type: Progress Notes Filed: 05/16/2023 8:05 AM [...] problems, patient instructed (more content not included)... [facility] 05-16-2023 Note HNO ID: [id number] Author: Samantha Aguirre Tech Service: ? Author Type: Horticultural Services Supervisor Type: Progress Notes Filed: 05/16/2023 7:22 AM [...] Emely Cavanaugh May 16, 2023 7:21 AM [facility] 05-16-2023 History of Present illness Narrative [...] Regla Higgins PA-C documented in this encounter [facility] 05-16-2023 History of Present illness Narrative [...] 2023 7:21 AM documented in this encounter [facility] 04-24-2023 History of Present illness Narrative [...] protocol implemented: No documented in this encounter [facility] 01-27-2023 Note HNO ID: [id number] Author: Tre Go PT, DPT Service: ? Author Type: Physical Therapist Type: Progress Notes Filed: 01/27/2023 1:03 PM Note Text: 01/27/2023 [facility] PHYSICAL THERAPY DISCONTINUANCE [...] Achieved -Normal Gait---Partially Achieved -Reciprocal Stair Negotiation---Achieved [place] in home exercise program.---Achieved Patient will decrease [...] additional follow-up appointments. Tre Go, PT, DPT [facility] 12-17-2022 Note HNO ID: [id number] Author: Chika Carpenter MD Service: ? Author [...] clinical evaluation Chika Carpenter MD Electronic Signature [facility] 12-16-2022 History of Present illness Narrative [...] MD Electronic Signature documented in this encounter [facility] 11-21-2022 Miscellaneous Notes This was done on 11/20/22. Keyla from patient's [employer] is requesting a copy of the return to work letter with detailed restrictions. I told her we sent something on 11/15, but that was just for his disability. They are asking for that same letter to be faxed to [phone]. Thank you! documented in this encounter [facility] 11-08-2022 Miscellaneous Notes Letter has been faxed and received. Regla Higgins PA-C Patient asking if he could have a return to work letter for light duty to begin on 11/18/22. If you agree, it would need to be faxed to [phone] ('s work), no cover sheet needed. documented in this encounter [facility] 11-06-2022 Note HNO ID: [id number] Author: Tre Go PT, DPT Service: ? [...] Minutes (timed/untimed): 40 Tre Go PT, DPT [facility] 11-06-2022 History of Present illness Narrative [...] Go PT, DPT documented in this encounter [facility] 10-30-2022 Note HNO ID: [id number] Author: Tre Go, PT, DPT Service: ? [...] Achieved -Normal Gait---Partially Achieved -Reciprocal Stair Negotiation---Achieved [place] in home exercise program.---Achieved Patient will decrease pain rating by 2 points to meet minimal clinical important difference for numeric pain rating scale.---Achieved Patient Goals: decrease pain, return to work, improve performance with mobility tasks.---partially Achieved Planned Interventions, Frequency, and Duration: 1x/week, 4 weeks Total Number of Visits Planned: 4 Patient to be seen for Therapeutic exercise (67052), Neuromuscular re-education (27170), Manual therapy (49220), Therapeutic activities (82774), Self-shelter management (58303), Gait Training (71624) SUBJECTIVE: Patient Reason for Visit: Pt may [...] Minutes (timed/untimed): 42 Tre Go, PT, DPT [facility] 10-30-2022 History of Present illness Narrative [...] Achieved -Normal Gait---Partially Achieved -Reciprocal Stair Negotiation---Achieved [place] in home exercise program.---Achieved Patient will decrease pain rating by 2 points to meet minimal clinical important difference for numeric pain rating scale.---Achieved Patient Goals: decrease pain, return to work, improve performance with mobility tasks.---partially Achieved Planned Interventions, Frequency, and Duration: 1x/week, 4 weeks Total Number of Visits Planned: 4 Patient to be seen for Therapeutic exercise (51690), Neuromuscular re-education (56951), Manual therapy (35779), Therapeutic activities (43908), Self-shelter management (50892), Gait Training (48792) SUBJECTIVE: Patient Reason for Visit: Pt may [...] Go PT, DPT documented in this encounter [facility] 10-28-2022 Note HNO ID: [id number] Author: Toy Coreas PTA Service: ? Author Type: Last Pattern Grader Type: Progress Notes Filed: 10/28/2022 7:47 AM [...] Treatment Time Minutes (timed/untimed): 40 Toy Coreas [facility] 10-28-2022 History of Present illness Narrative Episode [...] Toy Coreas PTA documented in this encounter [facility] 10-28-2022 Note HNO ID: [id number] Author: Chika Carpenter MD Service: ? Author [...] 6 weeks Chika Carpenter MD Electronic Signature [facility] 10-27-2022 History of Present illness Narrative [...] MD Electronic Signature documented in this encounter [facility] 10-24-2022 Note HNO ID: [id number] Author: Tre Go PT, DPT Service: ? [...] Minutes (timed/untimed): 44 Tre Go, PT, DPT [facility] 10-24-2022 History of Present illness Narrative [...] Go PT, DPT documented in this encounter [facility] 10-21-2022 Note HNO ID: [id number] Author: Toy Coreas PTA Service: ? Author Type: Last Pattern Grader Type: Progress Notes Filed: 10/21/2022 3:42 PM [...] Treatment Time Minutes (timed/untimed): 43 Toy Coreas, [facility] 10-21-2022 History of Present illness Narrative Episode [...] Toy Coreas PTA documented in this encounter [facility] 10-16-2022 Note HNO ID: [id number] Author: Tre Go PT, DPT Service: ? [...] Minutes (timed/untimed): 43 Tre Go, PT, DPT [facility] 10-16-2022 History of Present illness Narrative [...] Go PT DPT documented in this encounter [facility] 10-15-2022 Miscellaneous Notes LVM & sent MC asking patient to CB & R/S Thanks! documented in this encounter [facility] 10-14-2022 Note HNO ID: [id number] Author: Toy Coreas PTA Service: ? Author Type: Last Pattern Grader Type: Progress Notes Filed: 10/14/2022 4:51 PM [...] Time [facility] (timed/untimed): [facility] History of Present illness Narrative Episode [...] Toy Coreas PTA documented in this encounter [facility] 10-10-2022 Note HNO ID: [id number] Author: Ava Keita PT Service: ? Author [...] step up 2 x 4 inches B RN POSTPARTUM 10: standing incline calf stretch 3 x [...] Time Minutes (timed/untimed): 42 Ava Keita PT [facility] 10-10-2022 History of Present illness Narrative [...] step up 2 x 4 inches B RN POSTPARTUM 10: standing incline calf stretch 3 x [...] Ava Keita PT documented in this encounter [facility] 10-03-2022 History of Present illness Narrative [...] protocol implemented: No documented in this encounter [facility] 10-03-2022 Telephone encounter Note What is the need: Situation: Roberto Osborn's calling Background: states she if faxing lab results done while Roberto was in the hospital Assessment: she is faxing results from CBC, BMP, Iron Study and HgA1C Recommendation: is requesting that these labs not be redrawn if possible HgA1c CBC BMP Iron study [facility] 10-03-2022 Miscellaneous Notes What is the need: Situation: Roberto Osborn's calling Background: states she if faxing lab results done while Roberto was in the hospital Assessment: she is faxing results from CBC, BMP, Iron Study and HgA1C Recommendation: is requesting that these labs not be redrawn if possible HgA1c CBC BMP Iron study documented in this encounter [facility] 10-02-2022 Note HNO ID: [id number] Author: Tre Go PT, DPT Service: ? 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 Based on history , examination(knee, mobility, ADLs, [...] contralateral side -Normal Gait -Reciprocal Stair Negotiation [place] in home exercise program. Patient will decrease pain rating by 2 points to meet minimal clinical important difference for numeric pain rating scale. Patient Goals: decrease pain, return to work, improve performance with mobility tasks. Planned Interventions, Frequency, and Duration: Current Frequency: 2x/week Duration: 4 weeks Total Number of Visits Planned: 8 Planned Treatment Interventions: Therapeutic exercise (95218), Neuromuscular re-education (04527), Manual therapy (05769), Therapeutic activities (41763), Self-shelter management (00414), Gait Training (54118) Patient demonstrates good understanding of plan of care and treatment. The above goals and plan of care were discussed and agreed upon by patient/family. SUBJECTIVE: Roberto Osborn SR is a 62 year old male seen today for R knee TKR secondary to OA. Pt had home health PT upon D/C from hospital. 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 Pt has hx of L TKR ~10 [...] R Swelling: m (more content not included)... 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 Based on history , examination(knee, mobility, ADLs, [...] contralateral side -Normal Gait -Reciprocal Stair Negotiation [place] in home exercise program. Patient will decrease pain rating by 2 points to meet minimal clinical important difference for numeric pain rating scale. Patient Goals: decrease pain, return to work, improve performance with mobility tasks. Planned Interventions, Frequency, and Duration: Current Frequency: 2x/week Duration: 4 weeks Total Number of Visits Planned: 8 Planned Treatment Interventions: Therapeutic exercise (29145), Neuromuscular re-education (88288), Manual therapy (50646), Therapeutic activities (55298), Self-shelter management (23817), Gait Training (54958) Patient demonstrates good understanding of plan of care and treatment. The above goals and plan of care were discussed and agreed upon by patient/family. SUBJECTIVE: Roberto Osborn SR is a 62 year old male seen today for R knee TKR secondary to OA. Pt had home health PT upon D/C from hospital. 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 Pt has hx of L TKR ~10 [...] 15 Total Treatment Time Minutes (timed/untimed): 39 Ter Go PT, DPT documented in this encounter [facility] 09-30-2022 Miscellaneous Notes SITUATION: Patient reports [...] for intervention/education details. documented in this encounter [facility] 09-26-2022 Miscellaneous Notes SITUATION: patient reports [...] for intervention/education details. documented in this encounter [facility] 09-25-2022 Note HNO ID: [id number] Author: Matthieu Esparza PA-C Service: ? Author Type: Physician Corporate Travel Counselor Type: Progress Notes Filed: 09/25/2022 10:25 AM [...] supported. All questions answered. Matthieu Esparza PA-C [facility] 09-25-2022 Note HNO ID: [id number] Author: GERMAINE Sparrow Service: Radiology Author Type: [...] GERMAINE Sparrow September 25, 2022 10:04 AM [facility] 09-25-2022 History of Present illness Narrative [...] Matthieu Esparza PA-C documented in this encounter [facility] 09-25-2022 History of Present illness Narrative [...] 2022 10:04 AM documented in this encounter [facility] 09-23-2022 Miscellaneous Notes SITUATION: only patient [...] for intervention/education details. documented in this encounter [facility] 09-20-2022 Miscellaneous Notes SITUATION: Patient reports [...] for intervention/education details. documented in this encounter [facility] 09-18-2022 Miscellaneous Notes SITUATION: Patient reports [...] for intervention/education details. documented in this encounter [facility] 09-16-2022 Miscellaneous Notes SITUATION: Only patient [...] for intervention/education details. documented in this encounter [facility] 09-14-2022 Miscellaneous Notes Patient requested to cancel PT visit today due to having to be somewhere at noon and not sure when he will be back. Patient stated he was doing ok and requested Friday for next PT visit. documented in this encounter [facility] 09-12-2022 Miscellaneous Notes Kirill PT at [facility]. Pic of drainage uploaded in [employer]. Per Manjeet GARCIA, remove silverlon and use ABD and blanca wrap. Hold ROM for weekend. Call back if worsens or needs to be seen. documented in this encounter [facility] 09-12-2022 Miscellaneous Notes SITUATION: spouse present [...] Surgical Precautions: WBAT ASSESSMENT: Patient evaluated by [facility] physical therapy. Reviewed and explained [...] blanca wrap. Patient verbally agrees to allow [facility] to obtain an image via photography. documented in this encounter [facility] 09-11-2022 Miscellaneous Notes Welcome Home Call: a. Date and Time: 11:21 AM 09/11/2022 b. Contact name/relationship: PatientRoberto c. Have you been active with any Home Care company in the last 60 days(such as help with bathing, filling medications, checking your blood pressure) ? No. d. Was patient given Flu shot this Season (After Apr,): Yes: Location: , Date received: 08/10/22 e. [facility] will be providing your care, are you agreeable to starting these services? YES (yes or no) f. Do you have any upcoming appointments in the next few days, or restrictions to your schedule? NO g. Caregiver: Patient is able to manage care independently h. Confirmed Visited Location and preferred #: [id number] [place] [address] Please keep our your medications both over the counter and prescribed out for the home care to review, your hospital discharge instructions and write down any questions you might have. In order to maintain a safe environment for our caregivers, [facility] requires any animals or weapons present in the home be located in a secured location. Our clinicians will call you the night before or the morning of the appointment. Their # may come up restricted but they'll leave a VM for you. In case you have any questions or concerns in the meantime, our # is [phone], option [phone] Thank you for your time and have a great day. FILIBERTO Nicholson documented in this encounter [facility] 09-11-2022 Note HNO ID: [id number] Author: Matthieu Esparza PA-C Service: Orthopaedic Surgery Author Type: Physician Corporate Travel Counselor Type: Progress Notes Filed: 09/11/2022 8:26 AM [...] 1130 VTE RISK CATEGORY: SURGICAL HIGH RISK ([place], [place]) Active VTE Medication Orders: Anticoagulant AND Antiplatelet Medications (From admission, onward) Start Dose Route Frequency Last Action Ordered Stop 09/11/22 0900 aspirin, enteric coated 81 mg tab(s) (Surgical Risk Categories) 81 mg ORAL 2 TIMES DAILY Ordered 09/10/22 1124 -- Active VTE Prophylaxis Orders: 09/10/22 1130 PNEUMATIC COMPRESSION STOCKINGS ([place], [place]) 09/10/22 1130 ACTIVITY - MOBILIZE PATIENT ([place], [place]) PHYSICAL EXAMINATION: Right Lower Extremity: Dorsalis [...] Patient demonstrated understanding of risks versus benefits. [facility] 09-10-2022 Note HNO ID: [id number] Author: Adryan Payton MD Service: Anesthesiology Author [...] September 10, 2022 TIME: 2:44 PM CSN: [id number] [facility] 09-10-2022 Note HNO ID: [id number] Author: Indio Cho APRN.FIRE PREVENTION BUREAU CAPTAIN Service: Anesthesiology Author Type: Nurse Second Steward Type: Anesthesia Procedure Notes Filed: 09/10/2022 8:10 AM Note Text: ANESTHESIOLOGY PROCEDURE NOTE Spinal Block General Information Procedure Start Time/Medication Administration: 09/10/2022 7:52 AM Patient location during procedure: OR Timeout Performed Pre-procedure: timeout performed Consent Obtained: Yes 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 SIGNATURE: Indio Cho APRN.FIRE PREVENTION BUREAU CAPTAIN PATIENT NAME: Roberto Osborn SR DATE: September 10, 2022 TIME: 8:08 AM CSN: [id number] [facility] 09-09-2022 Miscellaneous Notes called back and [...] new ct order. documented in this encounter [facility] 09-07-2022 Note HNO ID: [id number] Author: Shy Saha, CT Service: Radiology Author [...] GERMAINE Chahal September 07, 2022 8:28 AM [facility] 09-07-2022 History of Present illness Narrative [...] 2022 8:28 AM documented in this encounter [facility] 09-03-2022 Miscellaneous Notes Type of form: Long-term Disability Form received via walk in from Dianne When form is completed, Fax form to [phone] Form has been forwarded to [facility] Dianne is wanting to case picker the completed forms once they have been faxed please. Clemente Sauer documented in this encounter [facility] 08-22-2022 Miscellaneous Notes COVID and CT orders entered. Matthieu Esparza PA-C August 22, 2022 3:[address] self test covid order and CT scan order for Rt tka wilmer 09/10/22. Please schedule [address]. 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 SIGNATURE: FILIBERTO Villalobos PATIENT NAME: Roberto Osborn SR DATE: August 20, 2022 TIME: 4:00 PM documented in this encounter [facility] 08-19-2022 Note HNO ID: [id number] Author: Yanet Boyle PA-C Service: ? Author Type: Physician Corporate Travel Counselor Type: Progress Notes Filed: 08/19/2022 8:11 AM [...] 378 QTC Calculation (Bazett) 427 Calculated P [place] 57 Calculated R [place] -3 Calculated T [place] 30 Impression NORMAL SINUS RHYTHM NORMAL ECG WHEN COMPARED WITH ECG OF 29-JUL-2014 08:31, NO SIGNIFICANT CHANGE WAS FOUND Confirmed by ELIJAH BURNS M.D. ([id number]) on 08/16/2022 2:14:14 PM Labs and ECG reviewed and accepted. Pt is optimally prepared for surgery. Yanet Boyle PA-C 08/19/2022 8:10 AM [facility] 08-16-2022 Instructions Yanet Boyle PA-C - 08/16/2022 9:07 AM EST PATIENT PREOPERATIVE INSTRUCTIONS [facility]: [phone] -- [address] [facility] [address]. Please read below carefully for your personalized [...] Advance Directive, please fax a copy to [phone] or email to for it to be [...] chart that day. documented in this encounter [facility] 08-15-2022 History and physical note HISTORY [...] manage symptoms. Procedure scheduled on 09/10/2022 at [facility]. REVIEW OF SYSTEMS: General: No weight loss, malaise or fevers. Neurological: No history of TIA's, stroke, RESEARCH BIOLOGIST tumor, impaired sensorium, hemiplegia, paraplegia or quadraplegia. 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 [...] record for those providers who practice within [facility] or with access to [employer] via [employer] Connect, or via [employer] documented in this encounter [facility] 08-02-2022 History of Present illness Narrative [...] 2022 12:30 PM documented in this encounter [facility] 07-29-2022 History of Present illness Narrative [...] Chika Carpenter M.D. Department of Orthopaedic Surgery [facility] documented in this encounter [facility] 07-05-2022 Miscellaneous Notes I talked with [...] helping. Please advise documented in this encounter [facility] 06-28-2022 History of Present illness Narrative [...] knee joint Informed Consent Consent Obtained: Verbal Wallace Protocol A moment to CARE was completed. [...] completed when applicable documented in this encounter [facility] 06-21-2022 History of Present illness Narrative [...] knee joint Informed Consent Consent Obtained: Verbal Wallace Protocol A moment to CARE was completed. [...] completed when applicable documented in this encounter [facility] 06-14-2022 History of Present illness Narrative [...] knee joint Informed Consent Consent Obtained: Verbal Wallace Protocol A moment to CARE was completed. 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 [...] of further assistance. documented in this encounter [facility] 02-22-2022 History of Present illness Narrative [...] 2022 12:52 PM documented in this encounter [facility] 11-15-2021 Miscellaneous Notes Images from the original note were not included. [employer] Care Opportunity Follow-up HBA1C Due Situation: [employer] Online Reporting Portal reviewed for open care opportunities and completion of health maintenance gaps in care. Payor: SUSAN - [employer] / Plan: BLUE CROSS/HMO,PPO,POS / Product Type: PPO [employer] Reporting Portal: Care Opportunity: Past due [...] for additional care opportunities. DAVON Givens, RN, [facility] Archives Specialist documented in this encounter [facility] Evaluation note Diagnosis Pain- Primary Generalized pain [facility] Pain Generalized pain [facility] Diagnosis Primary osteoarthritis of right knee- Primary Primary localized osteoarthrosis, lower leg [facility] Diagnosis Colon cancer screening- Primary Special screening for malignant neoplasms, colon [facility] Primary osteoarthritis of right knee- Primary Primary localized osteoarthrosis, lower leg [facility] Diagnosis Primary osteoarthritis of right knee- Primary Primary localized osteoarthrosis, lower leg [facility] Diagnosis Primary osteoarthritis of right knee- Primary Primary localized osteoarthrosis, lower leg [facility] Diagnosis Acute pain of right knee- Primary Primary osteoarthritis of right knee Primary localized osteoarthrosis, lower leg [facility] Diagnosis Primary osteoarthritis of right [...] osteoarthrosis, lower leg [facility] Diagnosis Primary osteoarthritis of right knee Primary localized osteoarthrosis, lower leg Preop testing Preoperative examination, unspecified Primary osteoarthritis of right knee Primary localized osteoarthrosis, lower leg [facility] Diagnosis S/P total knee arthroplasty, right- Primary [facility] Diagnosis Pain in right hip Pain in joint, pelvic region and thigh Chronic pain of right knee [facility] Diagnosis Annual physical exam- Primary Routine general medical examination at a [facility] facility Vitamin D deficiency Unspecified vitamin [...] specified viral diseases [facility] Diagnosis Erectile dysfunction, unspecified erectile dysfunction type- Primary [facility] Diagnosis Chronic pain of right knee- Primary S/P total knee arthroplasty, right [facility] Diagnosis Chronic pain of right knee- Primary [facility] Diagnosis Chronic pain of right knee- Primary [facility] Diagnosis Chronic pain of right knee- Primary [facility] Diagnosis Chronic pain of right knee- Primary [facility] Diagnosis Aftercare following right knee joint replacement surgery- Primary [facility] Diagnosis Chronic pain of right knee- Primary [facility] Diagnosis Chronic pain of right knee- Primary [facility] Diagnosis Chronic pain of right knee- Primary [facility] Diagnosis Aftercare following right knee joint replacement surgery- Primary [facility] Diagnosis Primary osteoarthritis of right knee- Primary Primary localized osteoarthrosis, lower leg Preop testing Preoperative examination, unspecified Encounter for preoperative screening laboratory testing for COVID-19 virus [facility] Diagnosis Primary osteoarthritis of right knee- Primary Primary localized osteoarthrosis, lower leg documented in this encounter [facility] note* Diagnosis Myalgia- Primary Mylagia and myositis, unspecified B12 deficiency Other B-complex deficiencies Vitamin D deficiency Unspecified vitamin D deficiency [facility] Diagnosis Status post total left knee replacement- Primary documented in this encounter [facility] note* Diagnosis Pain due to internal orthopedic prosthetic devices, implants and grafts, initial encounter ([facility])- Primary S/P total knee replacement using cement, left 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 ([facility]) documented in this encounter [facility] note* Diagnosis Pain due to internal orthopedic prosthetic devices, implants and grafts, initial encounter ([facility]) S/P total knee replacement using cement, left documented in this encounter [facility] note* Diagnosis Pain due to internal orthopedic prosthetic devices, implants and grafts, initial encounter ([facility])- Primary documented in this encounter [facility] note* Diagnosis Left leg swelling- Primary Left leg swelling [facility] Diagnosis Pre-op evaluation- Primary Preoperative examination, unspecified Carpal tunnel syndrome of left wrist Carpal tunnel syndrome Essential hypertension, benign Type 2 diabetes mellitus without complication, without long-term current use of insulin ([facility]) Gastroesophageal reflux disease, unspecified whether esophagitis present Allergic rhinitis, unspecified seasonality, unspecified trigger Preoperative examination- Primary Preoperative examination, unspecified Type 2 diabetes mellitus without complication, without long-term current use of insulin ([facility]) Class 1 obesity with body mass [...] pain, unspecified chronicity documented in this encounter [facility] note* Diagnosis Pre-op evaluation- Primary Preoperative examination, unspecified Carpal tunnel syndrome of left wrist Carpal tunnel syndrome Essential hypertension, benign Type 2 diabetes mellitus without complication, without long-term current use of insulin ([facility]) Gastroesophageal reflux disease, unspecified whether esophagitis [...] left knee replacement documented in this encounter [facility] note* Diagnosis Pre-op evaluation- Primary [...] pain, unspecified chronicity documented in this encounter [facility] note* Diagnosis Pre-op evaluation- Primary [...] whether esophagitis present documented in this encounter [facility] note* Diagnosis Chronic pain of right knee- Primary documented in this encounter [facility] [employer] Phone: Evaluation note* Diagnosis Spinal stenosis of lumbar region with neurogenic claudication- Primary Spinal stenosis, lumbar region, with neurogenic claudication documented in this encounter [facility] [employer] Phone: Evaluation note* Diagnosis Annual physical [...] neoplasms, colon documented in this encounter [facility] [employer] Work Phone: Evaluation note* Diagnosis Spinal stenosis of lumbar region with neurogenic claudication- Primary Spinal stenosis, lumbar region, with neurogenic claudication documented in this encounter [facility] [employer] Phone: Evaluation note* Diagnosis Medicare welcome [...] [facility] exam- Primary Type 2 diabetes mellitus without [...] clean dressing and contact provider and PT bilingual case manager. Problem:PT Orthopedic Condition Goal:Manage Orthopedic [...] Discuss all medications you are taking, even [id number] medicines, with your provider and pharmacist since [...] & Living Will. [facility] Visit [...] of DME/assistive devices. documented in this encounter [facility] Plan of care note* Visit Details [...] softener(s) as prescribed. documented in this encounter [facility] Plan of care note* Visit Details [...] of DME/assistive devices. documented in this encounter [facility] Plan of care note* Visit Details [...] of DME/assistive devices. [facility] Visit [...] of DME/assistive devices. [facility]* Visit [...] to: outpatient [facility] Diagnostic Procedure Only (Routine) - Authorized Specialty Diagnoses / Procedures Referred By Contac t Referred To Contact XR IMAGING Diagnoses Pain Procedures XR KNEE GENERAL 4V AP BOTH/PA BOTH/LAT/MERC BILATERAL RADIOLOGIC EXAM KNEE COMPLETE 4/MORE VIEWS Lea Connor PA-C [address] [place] [address] Xr Imaging Referral ID Status Reason Start Date Expiration Date Visits Requested Visits Authorized [id number] Authorized Auto-Generat ed Referral 02/01/2022 03/03/2023 1 1 [facility] for referral (narrative)* Diagnostic Procedure Only (Routine) - Closed Specialty Diagnoses / Procedures Referred By Contac t Referred To Contact XR IMAGING Diagnoses Pain Procedures XR KNEE GENERAL 4V AP BOTH/PA BOTH/LAT/MERC BILATERAL RADIOLOGIC EXAM KNEE COMPLETE 4/MORE VIEWS Lea Connor PA-C [address] [place] [address] Xr Imaging Referral ID Status Reason Start Date Expiration Date V isits Requested Visits Authorized [id number] Closed Auto-Generate d Referral 02/01/2022 03/03/2023 1 1 [facility] for referral (narrative)* Outpatient Procedure (Routine) - Closed Specialty Diagnoses / Procedures Referred By Guyac t Referred To Contact [facility] Diagnoses Preoperative examination Procedures ECG COMPLETE ECG ROUTINE ECG W/LEAST 12 LDS W/I&R Yanet Boyle PA-C [address] [address] [facility] [place] [address] [place] [address] Referral ID Status Reason Start Date Expiration Date V isits Requested Visits Authorized [id number] Closed Auto-Generate d Referral 08/16/2022 08/10/2023 1 1 [facility] for referral (narrative)* Diagnostic Procedure Only (Routine) - Authorized Specialty Diagnoses / Procedures Referred By Rodrigo ford Referred To Contact XR IMAGING Diagnoses Status post total left knee replacement Procedures XR KNEE POST 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 RADIOLOGIC EXAMINATION KNEE 3 VIEWS Regla Higgins PA-C [address] [place] [address] Xr [facility] Referral ID Status Reason Start Date Expiration Date Visits Requested Visits Authorized [id number] Authorized Auto-Generat ed Referral 05/14/2023 06/12/2024 1 1 [facility] for referral (narrative)* Diagnostic Procedure Only (Routine) - Open Specialty Diagnoses / Procedures Referred By Rodrigo ford Referred To Contact MOLECULAR & FUNCTIONAL IMAGING Diagnoses Pain due to internal orthopedic prosthetic devices, implants and grafts, initial encounter ([facility]) S/P total knee replacement using cement, left Procedures NM BONE 3 PHASE BONE &/JOINT IMAGING 3 PHASE STUDY Regla Higgins PA-C [address] [place] [address] Molecular & Functional Imaging [address] [place] [address] Referral ID Status Reason Start Date Expiration Date V isits Requested Visits Authorized [id number] Open Auto-Generate d Referral 05/16/2023 06/14/2024 1 1 [facility] for referral (narrative)* Diagnostic Procedure Only (Routine) - Closed Specialty Diagnoses / Procedures Referred By Contac t Referred To Contact MOLECULAR & FUNCTIONAL IMAGING Diagnoses Pain due to internal orthopedic prosthetic devices, implants and grafts, initial encounter ([facility]) S/P total knee replacement using cement, left Procedures NM BONE 3 PHASE BONE &/JOINT IMAGING 3 PHASE STUDY Chika Carpenter MD [address] [address] Molecular & Functional Imaging [address] [place] [address] Referral ID Status Reason Start Date Expiration Date V isits Requested Visits Authorized [id number] Closed Auto-Generate d Referral 05/20/2023 08/10/2023 1 1 [facility] for referral (narrative)* Diagnostic Procedure Only (Routine) - Closed Specialty Diagnoses / Procedures Referred By Contac t Referred To Contact XR IMAGING Diagnoses Right knee pain, unspecified chronicity Procedures XR KNEE POST OP 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 RIGHT RADIOLOGIC EXAMINATION KNEE 3 VIEWS Matthieu Esparza PA-C [address] [place] [address] Xr Imaging [place] [address] Referral ID Status Reason Start Date Expiration Date V isits Requested Visits Authorized [id number] Closed Auto-Generate d Referral 07/14/2023 08/09/2024 1 1 * Diagnostic Procedure Only (Routine) - Closed Specialty Diagnoses / Procedures Referred By Contac t Referred To Contact XR IMAGING Diagnoses Pain in left hip Procedures XR HIP 2V AP/LAT LEFT (AK,FL,ME,UN) RADEX HIP UNILATERAL WITH PELVIS 2-3 VIEWS Regla Higgins PA-C [address] [place] [address] [place] [address] Referral ID Status Reason Start Date Expiration Date V isits Requested Visits Authorized [id number] Closed Auto-Generate d Referral 06/20/2023 07/19/2024 1 1 [facility] for referral (narrative)* Diagnostic Procedure Only (Routine) - Closed Specialty Diagnoses / Procedures Referred By Contac t Referred To Contact XR IMAGING Diagnoses Status post total left knee replacement Procedures XR KNEE POST 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 RADIOLOGIC EXAMINATION KNEE 3 VIEWS Regla Higgins PA-C [address] [place] [address] [place] [address] Referral ID Status Reason Start Date Expiration Date V isits Requested Visits Authorized [id number] Closed Auto-Generate d Referral 05/14/2023 06/12/2024 1 1 [facility] for referral (narrative)* Diagnostic Procedure Only (Routine) - Closed Specialty Diagnoses / Procedures Referred By Contac t Referred To Contact XR IMAGING Diagnoses Right knee pain, unspecified chronicity Procedures XR KNEE POST OP 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 RIGHT RADIOLOGIC EXAMINATION KNEE 3 VIEWS Matthieu Esparza PA-C [address] [place] [address] [place] [address] Referral ID Status Reason Start Date Expiration Date V isits Requested Visits Authorized [id number] Closed Auto-Generate d Referral 09/12/2022 10/12/2023 1 1 [facility] for referral (narrative)* Diagnostic Procedure Only (Routine) - Closed Specialty Diagnoses / Procedures Referred By Contac t Referred To Contact XR IMAGING Diagnoses Right shoulder pain, unspecified chronicity Procedures XR SHOULDER [id number] AP/TRUE AP RIGHT RADEX SHOULDER COMPLETE MINIMUM 2 VIEWS Matthieu Esparza PA-C [address] [place] [address] Xr [facility] [place] [address] Referral ID Status Reason Start Date Expiration Date V isits Requested Visits Authorized [id number] Closed Auto-Generate d Referral 07/11/2022 08/10/2023 1 1 [facility] for visit Narrative* Diagnostic Procedure Only (Routine) - Closed Specialty Diagnoses / Procedures Referred By Contac t Referred To Contact XR IMAGING Diagnoses Pain Procedures XR KNEE GENERAL 4V AP BOTH/PA BOTH/LAT/MERC BILATERAL RADIOLOGIC EXAM KNEE COMPLETE 4/MORE VIEWS Lea Connor PA-C [address] [place] [id number] Xr Imaging Referral ID Status Reason Start Date Expiration Date V isits Requested Visits Authorized [id number] Closed Auto-Generate d Referral 02/01/2022 03/03/2023 1 1 [facility] for visit Narrative* Diagnostic Procedure Only (Routine) - Closed Specialty Diagnoses / Procedures Referred By Contac t Referred To Contact MOLECULAR & FUNCTIONAL IMAGING Diagnoses Pain due to internal orthopedic prosthetic devices, implants and grafts, initial encounter (HCC) S/P total knee replacement using cement, left Procedures NM BONE 3 PHASE BONE &/JOINT IMAGING 3 PHASE STUDY Chika Carpenter MD [address] [address] [facility] [address] [place] [address] Referral ID Status Reason Start Date Expiration Date V isits Requested Visits Authorized [id number] Closed Auto-Generate d Referral 05/20/2023 08/10/2023 1 1 [facility] for visit Narrative* Diagnostic Procedure Only (Routine) - Closed Specialty Diagnoses / Procedures Referred By Contac t Referred To Contact XR IMAGING Diagnoses Pain in left hip Procedures XR HIP 2V AP/LAT LEFT (AK,FL,ME,UN) RADEX HIP UNILATERAL WITH PELVIS 2-3 VIEWS Regla Higgins PA-C [address] [place] [address] [place] [address] Referral ID Status Reason Start Date Expiration Date V isits Requested Visits Authorized [id number] Closed Auto-Generate d Referral 06/20/2023 07/19/2024 1 1 [facility] for visit Narrative* Diagnostic Procedure Only (Routine) - Closed Specialty Diagnoses / Procedures Referred By Contac t Referred To Contact XR IMAGING Diagnoses Status post total left knee replacement Procedures XR KNEE POST 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 RADIOLOGIC EXAMINATION KNEE 3 VIEWS Regla Higgins PA-C [address] [place] [address] [place] [address] Referral ID Status Reason Start Date Expiration Date V isits Requested Visits Authorized [id number] Closed Auto-Generate d Referral 05/14/2023 06/12/2024 1 1 [facility] for visit Narrative* Diagnostic Procedure Only (Routine) - Closed Specialty Diagnoses / Procedures Referred By Contac t Referred To Contact XR IMAGING Diagnoses Right knee pain, unspecified chronicity Procedures XR KNEE POST OP 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 RIGHT RADIOLOGIC EXAMINATION KNEE 3 VIEWS Matthieu Esparza PA-C [address] [place] [address] [place] [address] Referral ID Status Reason Start Date Expiration Date V isits Requested Visits Authorized [id number] Closed Auto-Generate d Referral 09/12/2022 10/12/2023 1 1 [facility] for visit Narrative* Diagnostic Procedure Only (Routine) - Closed Specialty Diagnoses / Procedures Referred By Contac t Referred To Contact XR IMAGING Diagnoses Right shoulder pain, unspecified chronicity Procedures XR SHOULDER [id number] AP/TRUE AP RIGHT RADEX SHOULDER COMPLETE MINIMUM 2 VIEWS Matthieu Esparza PA-C [address] [place] [address] [place] [address] Referral ID Status Reason Start Date Expiration Date V isits Requested Visits Authorized [id number] Closed Auto-Generate d Referral 07/11/2022 08/10/2023 1 1 [facility] Discharge Instructions * Attachments The following attachments cannot be sent through Care Everywhere. 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 Advance Directives and Living Will Power of Film Projector Operator Documents on File Type Date Recorded Patient Steel Floor Pan Placing Supervisor Expl anation Advance Directives and Living Will Power of Film Projector Operator Documents on File Type Date Recorded Patient Steel Floor Pan Placing Supervisor Expl anation ACP-Advance Directive ACP-Power of Film Projector Operator Documents on File Type Date Recorded Patient Steel Floor Pan Placing Supervisor Expl anation Advance Directive(s) 07/18/2021 8:22 PM Advance Directive(s) 10/26/2020 12:47 PM Advance Directive(s) 08/07/2018 7:39 AM Documents on File Type Date Recorded Patient Steel Floor Pan Placing Supervisor Expl anation Advance Directive(s) 07/18/2021 8:22 [...] Extremity Venous Right Awilda Vivas PA-C [address] [facility] [address] [place] [address] Specialty Diagnoses / Procedures Referred By Rodrigo ford Referred To Contact CT IMAGING Diagnoses Primary osteoarthritis of right knee Preop testing Procedures CT KNEE WO IVCON RT CT LOWER EXTREMITY W/O CONTRAST MATERIAL Matthieu Esparza PA-C [address] [place] [address] Ct Imaging Referral ID Status Reason Start Date Expiration Date V isits Requested Visits Authorized [id number] Closed Auto-Generate d Referral 08/26/2022 08/10/2023 1 1 Specialty Diagnoses / Procedures Referred By Contac t Referred To Contact [facility] Diagnoses S/P total knee arthroplasty, right Procedures CONSULT TO PHYSICAL THERAPY PHYSICAL THERAPY EVALUATION HIGH COMPLEX 45 MINS Matthieu Esparza PA-C [address] [place] [address] [facility] [address] [address] Referral ID Status Reason Start Date Expiration Date Visits Requested Visits Authorized [id number] Pending Review Auto-Generat ed Referral 09/25/2022 09/25/2023 1 1 Specialty Diagnoses / Procedures Referred By Contac t Referred To Contact [facility] Diagnoses Pain in right hip Chronic pain of right knee Procedures PT REHAB FOLLOW UP ORDER THERAPEUTIC EXERCISES RE, EA [address] [place] [address] [facility] [address] [address] Referral ID Status Reason Start Date Expiration Date Visits Requested Visits Authorized [id number] Pending Review PCP Requested Referral Auto-Generate d Referral 10/02/2022 12/31/2022 1 1 Specialty Diagnoses / Procedures Referred By Contac t Referred To Contact Timothy Correa MD [address] [place] [address] [place] [address] Referral ID Status Reason Start Date Expiration Date V isits Requested Visits Authorized [id number] Pending Review 3 3 Specialty Diagnoses / Procedures Referred By Contac t Referred To Contact [facility] Diagnoses Chronic pain of right knee Procedures PT REHAB FOLLOW UP ORDER THERAPEUTIC EXERCISES RE, EA [address] [place] [address] [facility] [address] [address] Referral ID Status Reason Start Date Expiration Date Visits Requested Visits Authorized [id number] Pending Review PCP Requested Referral Auto-Generate d Referral 10/16/2022 01/14/2023 1 1 Referral ID Status Reason Start Date Expiration Date Visits Requested Visits Authorized [id number] Pending Review PCP Requested Referral Auto-Generate d Referral 10/30/2022 01/28/2023 1 1 Specialty Diagnoses / Procedures Referred By Contac t Referred To Contact CT IMAGING Diagnoses Primary osteoarthritis of right knee Procedures CT KNEE WO IVCON RT CT LOWER EXTREMITY W/O CONTRAST MATERIAL Matthieu Esparza PA-C [address] [place] [address] Ct Imaging Referral ID Status Reason Start Date Expiration Date V isits Requested Visits Authorized [id number] Closed Auto-Generate d Referral 09/10/2022 08/10/2023 1 1 Specialty Diagnoses / Procedures Referred By Contac t Referred To Contact Radiology Diagnoses Left leg swelling Procedures US LEG LEFT VENOUS + DOPPLER Timothy Correa MD [address] [email or web address] [address] S ULTRASOUND [address] [place] [address] Referral ID Status Reason Start Date Expiration Date V isits Requested Visits Authorized [id number] Closed Transfer of Care[facility] 12/16/2023 03/17/2024 1 1 Summary Purpose [...] rs pt Chika Carpenter MD [address] [place] [address] [place] [address] [place] [address] Referral ID Status Reason Start Date Expiration Date V isits Requested Visits Authorized [id number] Authorized 08/11/2022 08/10/2023 99 99 Reason Comments Physical Therapy Specialty Diagnoses / Procedures Referred By Contac Referred To Contact PHYSICAL THERAPY Diagnoses Pain in right hip Other chronic pain Pain in right hip [M25.551] Chronic pain of right knee [M25.561, G89.29] Procedures post op est rs pt Chika Carpenter MD [address] [place] [address] [place] [address] [place] [address] Reason Comments Follow Up Euflexxa #3 Specialty Diagnoses / Procedures [facility] To Contact Orthopedics / ORTHOPAEDIC SURGERY Diagnoses right knee euflexxa #1 Procedures HUSAM INJECT 3 Self Chika Carpenter MD [address] [place] [address] Referral ID Status Reason Start Date Expiration Date V isits Requested Visits Authorized [id number] Closed Financial Clearance Required - Self Pay Patient Cleared - True Self-Pay required payment collected 06/14/2022 09/12/2022 3 3 Reason Comments Injections Follow Up Referral ID Status Reason Start Date Expiration Date Visits Requested Visits Authorized [id number] Authorized Financial Clearance Required - Self Pay [...] W/O CONTRAST MATERIAL Matthieu Esparza PA-C [address] [place] [address] Ct Imaging Referral ID Status Reason Start Date Expiration Date V isits Requested Visits Authorized [id number] Closed Auto-Generate d Referral 08/26/2022 08/10/2023 1 1 Reason Comments Forms Specialty Diagnoses / Procedures Referred By Contac t Referred To Contact Diagnoses Primary osteoarthritis of right knee Procedures ARTHRP KNE CONDYLE&PLATU MEDIAL&LAT COMPARTMENTS ROBOTIC ASSISTED TOTAL KNEE ARTHROPLASTY [facility] [address] [place] [address] Referral ID Status Reason Start Date Expiration Date Visits Re quested Visits Authorized [id number] 1 1 Reason Comments Home Care Confirmation call Reason Comments Patient Update Reason Comments Home Care Unmade PT visit Specialty Diagnoses / Procedures Referred By Contac t Referred To Contact [facility] [address] [place] [address] Referral ID Status Reason Start Date Expiration Date Visits Re quested Visits Authorized [id number] 1 1 Reason Comments Established Patient Follow Up Post Op Knee Replacement Reason Comments PT Eval Specialty Diagnoses / Procedures Referred By Contac t Referred To Contact Physical Therapy / PHYSICAL THERAPY Diagnoses RT TKR [facility] DISC 09/30 Procedures NEW RS PT [facility] TOTAL JOINT Chika Carpenter MD [address] [address] Tre Go, PT, DPT [address] [place] [address] Referral ID Status Reason Start Date Expiration Date Visits Re quested Visits Authorized [id number] Closed 10/02/2022 12/31/2022 1 1 Reason Comments Complete exam Reason Onset Date Comments Discuss results of exam, other provider 10/03/19 Specialty Diagnoses / Procedures Referred By Contac t Referred To Contact [facility] Diagnoses S/P total knee arthroplasty, right Procedures CONSULT TO PHYSICAL THERAPY PHYSICAL THERAPY EVALUATION HIGH COMPLEX 45 MINS Matthieu Esparza PA-C [address] [place] [address] [facility] [place] [address] Referral ID Status Reason Start Date Expiration Date Visits Requested Visits Authorized [id number] Authorized Auto-Generat ed Referral 08/11/2022 08/10/2023 20 [...] section and content) DATE CREATED AUTHOR 03/28/2020 [facility] DATE CREATED AUTHOR AUTHOR'S ORGANIZ ATION 04/26/2020 [facility] DATE CREATED AUTHOR AUTHOR'S ORGANIZ ATION 05/02/2020 [facility] DATE CREATED AUTHOR AUTHOR'S ORGANIZ ATION 07/20/2023 [facility] DATE CREATED AUTHOR AUTHOR'S ORGANIZ ATION 08/15/2023 [facility] DATE CREATED AUTHOR AUTHOR'S ORGANIZ ATION 09/25/2023 [facility] DATE CREATED AUTHOR AUTHOR'S ORGANIZ ATION 09/11/2024 [facility] DATE CREATED AUTHOR AUTHOR'S ORGANIZ ATION 01/19/2025 [facility] Care Teams (unrecognized sec tion and content) Paving Contractor Relationship Specialty Start Date End Date Timothy Correa MD [address] [place] [address] [place] [address] PCP - General Family Medicine 11/06/20 Paving Contractor Relationship Specialty Start Date End Date Timothy Correa MD [address] [place] [address] [place] [address] PCP - General Family Medicine 11/06/20 Paving Contractor Relationship Specialty Start Date End Date Phill Timothy Coronado PCP - General Family Practice 03/01/13 Paving Contractor Relationship Specialty Start Date End Date Phill Timothy Coronado PCP - General Family Practice 03/01/13 Paving Contractor Relationship Specialty Start Date End Date Phill Timothy Coronado PCP - General Family Practice 03/01/13 Paving Contractor Relationship Specialty Start Date End Date Phill Timothy Coronado PCP - General Family Practice 03/01/13 Paving Contractor Relationship Specialty Start Date End Date Timothy Correa MD [address] [place] [address] [place] [address] PCP - General Family Medicine 11/06/20 Paving Contractor Relationship Specialty Start Date End Date Phill Timothy Coronado PCP - General Family Medicine 03/01/13 Paving Contractor Relationship Specialty Start Date End Date PhillTimothy PCP - General Family Medicine 03/01/13 Paving Contractor Relationship Specialty Start Date End Date Phill Timothy Coronado PCP - General Family Medicine 03/01/13 Paving Contractor Relationship Specialty Start Date End Date Timothy Correa MD [address] [place] [address] [place] [address] PCP - General Family Medicine 11/06/20 Paving Contractor Relationship Specialty Start Date End Date Timothy Correa PCP - General Family Medicine 03/01/13 Paving Contractor Relationship Specialty Start Date End Date Timothy Correa PCP - General Family Medicine 03/01/13 Sisdivina, Rony, [facility] [address] [place] [address] Specialty Archives Specialist Orthopedics 07/29/22 10/13/22 Paving Contractor Relationship Specialty Start Date End Date Timothy Correa PCP - General Family Medicine 03/01/13 SisGiovanni murciain, [facility] [address] [place] [address] Specialty Archives Specialist Orthopedics 07/29/22 10/13/22 Paving Contractor Relationship Specialty Start Date End Date Timothy Correa PCP - General Family Medicine 03/01/13 SisGiovanni murciain, [facility] [address] [place] [address] Specialty Archives Specialist Orthopedics 07/29/22 10/13/22 Paving Contractor Relationship Specialty Start Date End Date Timothy Correa MD [address] [place] [address] DR [place], [place] [address] PCP - General Family Medicine 11/06/20 Paving Contractor Relationship Specialty Start Date End Date Timothy Correa PCP - General Family Medicine 03/01/13 SisGiovanni murciain, [facility] [address] [place] [address] Specialty Archives Specialist Orthopedics 07/29/22 10/13/22 Paving Contractor Relationship Specialty Start Date End Date Timothy Correa PCP - General Family Medicine 03/01/13 SisGiovanni murciain, [facility] [address] [place] [address] Specialty Archives Specialist Orthopedics 07/29/22 10/13/22 Paving Contractor Relationship Specialty Start Date End Date Timothy Correa PCP - General Family Medicine 03/01/13 SisRony murcia, [facility] [address] [place] [address] Specialty Archives Specialist Orthopedics 07/29/22 10/13/22 Paving Contractor Relationship Specialty Start Date End Date Timothy Correa PCP - General Family Medicine 03/01/13 Rony Doyle, [facility] [address] [place] [address] Specialty Archives Specialist Orthopedics 07/29/22 10/13/22 Paving Contractor Relationship Specialty Start Date End Date Timothy Correa PCP - General Family Medicine 03/01/13 Rony Doyle, [facility] [address] [place] [address] Specialty Archives Specialist Orthopedics 07/29/22 10/13/22 Matthieu Esparza PA-C [address] [place] [address] Referring Orthopedics 09/11/22 Chika Carpenter MD [address] [address] Home Care Provider Orthopedics 09/11/22 Ned Arnold, PT [address] [place] [address] Electronics Mechanic Apprentice Post Acute Care 09/11/22 Paving Contractor Relationship Specialty Start Date End Date Timothy Correa PCP - General Family Medicine 03/01/13 Rony Doyle, [facility] [address] [place] [address] Specialty Archives Specialist Orthopedics 07/29/22 10/13/22 Matthieu Esparza PA-C [address] [place] [address] Referring Orthopedics 09/11/22 Chika Carpenter MD [address] [place] [address] Home Care Provider Orthopedics 09/11/22 Ned Arnold, PT [address] [place] [address] Electronics Mechanic Apprentice Post Acute Care 09/11/22 Paving Contractor Relationship Specialty Start Date End Date Timothy Correa PCP - General Family Medicine 03/01/13 Rony Doyle, [facility] [address] [place] [address] Specialty Archives Specialist Orthopedics 07/29/22 10/13/22 Matthieu Esparza PA-C [address] [place] [address] Referring Orthopedics 09/11/22 Chika Carpenter MD [address] [place] [address] Home Care Provider Orthopedics 09/11/22 Ned Arnold, PT [address] [place] [address] Electronics Mechanic Apprentice Post Acute Care 09/11/22 Paving Contractor Relationship Specialty Start Date End Date Timothy Correa PCP - General Family Medicine 03/01/13 Rony Doyle, [facility] [address] [place] [address] Specialty Archives Specialist Orthopedics 07/29/22 10/13/22 Matthieu Esparza PA-C [address] [place] [address] Referring Orthopedics 09/11/22 Chika Carpenter MD [address] [address] Home Care Provider Orthopedics 09/11/22 Ned Arnold, PT [address] [place] [address] Electronics Mechanic Apprentice Post Acute Care 09/11/22 Paving Contractor Relationship Specialty Start Date End Date Timothy Correa M PCP - General Family Medicine 03/01/13 Rony Doyle, [facility] [address] [place] [address] Specialty Archives Specialist Orthopedics 07/29/22 10/13/22 Matthieu Esparza PA-C [address] [place] [address] Referring Orthopedics 09/11/22 Chika Carpenter MD [address] [address] Home Care Provider Orthopedics 09/11/22 Ned Arnold, PT [address] [place] [address] Electronics Mechanic Apprentice Post Acute Care 09/11/22 Paving Contractor Relationship Specialty Start Date End Date Timothy Correa M PCP - General Family Medicine 03/01/13 Rony Doyle, [facility] [address] [place] [address] Specialty Archives Specialist Orthopedics 07/29/22 10/13/22 Matthieu Esparza PA-C [address] [place] [address] Referring Orthopedics 09/11/22 Chika Carpenter MD [address] [address] Home Care Provider Orthopedics 09/11/22 eNd Arnold, PT [address] [place] [address] Electronics Mechanic Apprentice Post Acute Care 09/11/22 Paving Contractor Relationship Specialty Start Date End Date Timothy Correa M PCP - General Family Medicine 03/01/13 Rony Doyle, [facility] [address] [place] [address] Specialty Archives Specialist Orthopedics 07/29/22 10/13/22 Matthieu Esparza PA-C [address] [place] [address] Referring Orthopedics 09/11/22 Chika Carpenter MD [address] [address] Home Care Provider Orthopedics 09/11/22 Ned Arnold, PT [address] [place] [address] Electronics Mechanic Apprentice Post Acute Care 09/11/22 Paving Contractor Relationship Specialty Start Date End Date Timothy Correa PCP - General Family Medicine 03/01/13 Rony Doyle, [facility] [address] [place] [address] Specialty Archives Specialist Orthopedics 07/29/22 10/13/22 Matthieu Esparza PA-C [address] [place] [address] Referring Orthopedics 09/11/22 Chika Carpenter MD [address] [address] Home Care Provider Orthopedics 09/11/22 Ned Arnold, PT [address] [place] [address] Electronics Mechanic Apprentice Post Acute Care 09/11/22 Paving Contractor Relationship Specialty Start Date End Date Phill Gutierrez PCP - General Family Medicine 03/01/13 Rony Doyle, [facility] [address] [place] [address] Specialty Archives Specialist Orthopedics 07/29/22 10/13/22 Matthieu Esaprza PA-C [address] [place] [address] Referring Orthopedics 09/11/22 Chika Carpenter MD [address] [address] Home Care Provider Orthopedics 09/11/22 Ned Arnold, PT [address] [place] [address] Electronics Mechanic Apprentice Post Acute Care 09/11/22 Paving Contractor Relationship Specialty Start Date End Date Timothy Correa MD [address] [facility] [address] PCP - General Family Medicine 11/06/20 Paving Contractor Relationship Specialty Start Date End Date Timothy Correa PCP - General Family Medicine 03/01/13 Rony Doyle [facility] [address] [place] [address] Specialty Archives Specialist Orthopedics 07/29/22 10/13/22 Matthieu Esparza PA-C [address] [place] [address] Referring Orthopedics 09/11/22 Chika Carpenter MD [address] [address] Home Care Provider Orthopedics 09/11/22 Ned Arnold, PT [address] [place] [address] Electronics Mechanic Apprentice Post Acute Care 09/11/22 Paving Contractor Relationship Specialty Start Date End Date Timothy Correa MD [address] [facility] [address] PCP - General Family Medicine 11/06/20 Paving Contractor Relationship Specialty Start Date End Date Timothy Correa MD [address] [facility] [address] PCP - General Family Medicine 11/06/20 Paving Contractor Relationship Specialty Start Date End Date Timothy Correa PCP - General Family Medicine 03/01/13 Matthieu Esparza PA-C [address] [place] [address] Referring Orthopedics 09/11/22 Chika Carpenter MD [address] [place] [address] Home Care Provider Orthopedics 09/11/22 Ned Arnold, PT [address] [place] [address] Electronics Mechanic Apprentice Post Acute Care 09/11/22 Paving Contractor Relationship Specialty Start Date End Date Timothy Correa PCP - General Family Medicine 03/01/13 Matthieu Esparza PA-C [address] [place] [address] Referring Orthopedics 09/11/22 Chika Carpenter MD [address] [place] [address] Home Care Provider Orthopedics 09/11/22 Ned Arnold, PT [address] [place] [address] Electronics Mechanic Apprentice Post Acute Care 09/11/22 Paving Contractor Relationship Specialty Start Date End Date Timothy Correa PCP - General Family Medicine 03/01/13 Matthieu Esparza PA-C [address] [place] [address] Referring Orthopedics 09/11/22 Chika Carpenter MD [address] [place] [address] 83771 Home Care Provider Orthopedics 09/11/22 Ned Arnold, PT [address] [place] [address] Electronics Mechanic Apprentice Post Acute Care 09/11/22 Paving Contractor Relationship Specialty Start Date End Date Timothy Correa PCP - General Family Medicine 03/01/13 Matthieu Esparza PA-C [address] [place] [address] 07101 Referring Orthopedics 09/11/22 Chika Carpenter MD [address] [place] [address] 56865 Home Care Provider Orthopedics 09/11/22 Ned Arnold, PT [address] [place] [address] Electronics Mechanic Apprentice Post Acute Care 09/11/22 Paving Contractor Relationship Specialty Start Date End Date Timothy Correa PCP - General Family Medicine 03/01/13 Matthieu Esparza PA-C [address] [place] [address] 72666 Referring Orthopedics 09/11/22 Chika Carpenter MD [address] [place] [address] 18091 Home Care Provider Orthopedics 09/11/22 Ned Arnold, PT [address] [place] [address] Electronics Mechanic Apprentice Post Acute Care 09/11/22 Paving Contractor Relationship Specialty Start Date End Date Timothy Correa PCP - General Family Medicine 03/01/13 Matthieu Esparza PA-C [address] [place] [address] Referring Orthopedics 09/11/22 Chika Carpenter MD [address] [place] [address] 55726 Home Care Provider Orthopedics 09/11/22 Ned Arnold, PT [address] [place] [address] Electronics Mechanic Apprentice Post Acute Care 09/11/22 Paving Contractor Relationship Specialty Start Date End Date Timothy Correa PCP - General Family Medicine 03/01/13 Matthieu Esparza PA-C [address] [place] [address] 33287 Referring Orthopedics 09/11/22 Chika Carpenter MD [address] [place] [address] 67136 Home Care Provider Orthopedics 09/11/22 Ned Arnold, PT [address] [place] [address] Electronics Mechanic Apprentice Post Acute Care 09/11/22 Paving Contractor Relationship Specialty Start Date End Date Timothy Correa PCP - General Family Medicine 03/01/13 Matthieu Esparza PA-C [address] [place] [address] 39752 Referring Orthopedics 09/11/22 Chika Carpenter MD [address] [place] [address] 93190 Home Care Provider Orthopedics 09/11/22 Ned Arnold, PT [address] [place] [address] Electronics Mechanic Apprentice Post Acute Care 09/11/22 Paving Contractor Relationship Specialty Start Date End Date Timothy Correa PCP - General Family Medicine 03/01/13 Matthieu Esparza PA-C [address] [place] [address] Referring Orthopedics 09/11/22 Chika Carpenter MD [address] [address] Home Care Provider Orthopedics 09/11/22 Ned Arnold, PT [address] [place] [address] Electronics Mechanic Apprentice Post Acute Care 09/11/22 Paving Contractor Relationship Specialty Start Date End Date Timothy Correa PCP - General Family Medicine 03/01/13 Matthieu Esparza PA-C [address] [place] [address] Referring Orthopedics 09/11/22 Chika Carpenter MD [address] [place] [address] 26804 Home Care Provider Orthopedics 09/11/22 Ned Arnold, PT [address] [place] [address] Electronics Mechanic Apprentice Post Acute Care 09/11/22 Paving Contractor Relationship Specialty Start Date End Date Timothy Correa PCP - General Family Medicine 03/01/13 Matthieu Esparza PA-C [address] [place] [address] Referring Orthopedics 09/11/22 Chika Carpenter MD [address] [address] Home Care Provider Orthopedics 09/11/22 Ned Arnold, PT [address] [facility] [address] Electronics Mechanic Apprentice Post Acute Care 09/11/22 Paving Contractor Relationship Specialty Start Date End Date Timothy Correa PCP - General Family Medicine 03/01/13 Matthieu Esparza PA-C [address] [place] [address] Referring Orthopedics 09/11/22 Chika Carpenter MD [address] [address] Home Care Provider Orthopedics 09/11/22 Ned Arnold, PT [address] [facility], [place] [id number] Electronics Mechanic Apprentice Post Acute Care 09/11/22 Paving Contractor Relationship Specialty Start Date End Date Timothy Correa PCP - General Family Medicine 03/01/13 Rony Doyle, [facility] [address] [place] [address] Specialty Archives Specialist Orthopedics 07/29/22 10/13/22 Matthieu Esparza PA-C [address] [place] [address] Referring Orthopedics 09/11/22 Chika Carpenter MD [address] [place] [address] 34144 Home Care Provider Orthopedics 09/11/22 Ned Arnold, PT [address] [facility] [address] Electronics Mechanic Apprentice Post Acute Care 09/11/22 Paving Contractor Relationship Specialty Start Date End Date Timothy Correa PCP - General Family Medicine 03/01/13 Rony Doyle [facility] [address] [place] [address] Specialty Archives Specialist Orthopedics 07/29/22 10/13/22 Matthieu Esparza PA-C [address] [place] [address] 85743 Referring Orthopedics 09/11/22 Chika Carpenter MD [address] [place] [address] 41042 Home Care Provider Orthopedics 09/11/22 Ned Arnold, PT [address] [facility], [place] [id number] Electronics Mechanic Apprentice Post Acute Care 09/11/22 Paving Contractor Relationship Specialty Start Date End Date Timothy Correa MD [address] [facility] [address] PCP - General Family Medicine 11/06/20 Paving Contractor Relationship Specialty Start Date End Date Timothy Correa MD [address] [facility] [address] PCP - General Family Medicine 11/06/20 Paving Contractor Relationship Specialty Start Date End Date Timothy Correa PCP - General Family Medicine 03/01/13 Matthieu Esparza PA-C [address] [place] [address] 87062 Referring Orthopedics 09/11/22 Chika Carpenter MD [address] [place] [address] 30408 Home Care Provider Orthopedics 09/11/22 Ned Arnold, PT [address] [place] [address] Electronics Mechanic Apprentice Post Acute Care 09/11/22 Paving Contractor Relationship Specialty Start Date End Date Timothy Correa M PCP - General Family Medicine 03/01/13 Matthieu Esparza PA-C [address] [place] [address] 41294 Referring Orthopedics 09/11/22 Chika Carpenter MD [address] [place] [address] 72710 Home Care Provider Orthopedics 09/11/22 Ned Arnold, PT [address] [place] [address] Electronics Mechanic Apprentice Post Acute Care 09/11/22 Paving Contractor Relationship Specialty Start Date End Date Timothy Correa M PCP - General Family Medicine 03/01/13 Matthieu Esparza PA-C [address] [place] [address] 03795 Referring Orthopedics 09/11/22 Chika Carpenter MD [address] [place] [address] 81714 Home Care Provider Orthopedics 09/11/22 Ned Arnold, PT [address] [place] [address] Electronics Mechanic Apprentice Post Acute Care 09/11/22 Paving Contractor Relationship Specialty Start Date End Date Timothy Correa M PCP - General Family Medicine 03/01/13 Matthieu Esparza PA-C [address] [place] [address] 86461 Referring Orthopedics 09/11/22 Chika Carpenter MD [address] [place] [address] 03193 Home Care Provider Orthopedics 09/11/22 Ned Arnold, PT [address] [place] [address] Electronics Mechanic Apprentice Post Acute Care 09/11/22 Paving Contractor Relationship Specialty Start Date End Date Timothy Correa PCP - General Family Medicine 03/01/13 Matthieu Esparza PA-C [address] [place] [address] 62499 Referring Orthopedics 09/11/22 Chika Carpenter MD [address] [place] [address] 82406 Home Care Provider Orthopedics 09/11/22 Ned Arnold, PT [address] [place] [address] Electronics Mechanic Apprentice Post Acute Care 09/11/22 Paving Contractor Relationship Specialty Start Date End Date Phill Timothy Coronado PCP - General Family Medicine 03/01/13 Matthieu Esparza PA-C [address] [place] [address] 80480 Referring Orthopedics 09/11/22 Chika Carpenter MD [address] [place] [address] 87673 Home Care Provider Orthopedics 09/11/22 Ned Arnold, PT [address] [facility] [address] Electronics Mechanic Apprentice Post Acute Care 09/11/22 Paving Contractor Relationship Specialty Start Date End Date Timothy Correa MD [address] [place] [address] [place] [address] PCP - General Family Medicine 11/06/20 Paving Contractor Relationship Specialty Start Date End Date Timothy Correa PCP - General Family Medicine 03/01/13 Matthieu Esparza PA-C [address] [place] [address] 18337 Referring Orthopedics 09/11/22 Chika Carpenter MD [address] [place] [address] 32756 Home Care Provider Orthopedics 09/11/22 Ned Arnold, PT [address] [facility] [address] Electronics Mechanic Apprentice Post Acute Care 09/11/22 Paving Contractor Relationship Specialty Start Date End Date Phill Timothy Coronado PCP - General Family Medicine 03/01/13 Matthieu Esparaz PA-C [address] [place] [address] 88150 Referring Orthopedics 09/11/22 Chika Carpenter MD [address] [place] [address] 38889 Home Care Provider Orthopedics 09/11/22 Ned Arnold, PT [address] [facility] [address] Electronics Mechanic Apprentice Post Acute Care 09/11/22 Paving Contractor Relationship Specialty Start Date End Date Timothy Correa PCP - General Family Medicine 03/01/13 Matthieu Esparza PA-C [address] [place] [address] 90648 Referring Orthopedics 09/11/22 Chika Carpenter MD [address] [place] [address] [phone] Home Care Provider Orthopedics 09/11/22 Ned Arnold, PT [address] [place] [address] Electronics Mechanic Apprentice Post Acute Care 09/11/22 Paving Contractor Relationship Specialty Start Date End Date Timothy Correa MD [address] [place] [address] [place] [address] PCP - General Family Medicine 11/06/20 Paving Contractor Relationship Specialty Start Date End Date Timothy Correa MD [address] [facility] [address] PCP - General Family Medicine 11/06/20 Paving Contractor Relationship Specialty Start Date End Date Timothy Correa MD [address] [facility] [address] PCP - General Family Medicine 11/06/20 Paving Contractor Relationship Specialty Start Date End Date Timothy Correa MD [address] [facility] [address] PCP - General Family Medicine 11/06/20 Paving Contractor Relationship Specialty Start Date End Date Timothy Correa PCP - General Family Medicine 03/01/13 Matthieu Esparza PA-C [address] [place] [address] 62194 Referring Orthopedics 09/11/22 Chika Carpenter MD [address] [place] [address] 19461 Home Care Provider Orthopedics 09/11/22 Ned Arnold, PT [address] [place] [address] Electronics Mechanic Apprentice Post Acute Care 09/11/22 Paving Contractor Relationship Specialty Start Date End Date Phill Timothy Coronado PCP - General Family Medicine 03/01/13 Matthieu Esparza PA-C [address] [place] [address] 13290 Referring Orthopedics 09/11/22 Chika Carpenter MD [address] [place] [address] 28670 Home Care Provider Orthopedics 09/11/22 Ned Arnold, PT [address] [place] [address] Electronics Mechanic Apprentice Post Acute Care 09/11/22 Paving Contractor Relationship Specialty Start Date End Date PhillTimothy PCP - General Family Medicine 03/01/13 Rony Doyle, [facility] [address] [place] [address] Specialty Archives Specialist Orthopedics 07/29/22 10/13/22 Matthieu Esparza PA-C [address] [place] [address] 75843 Referring Orthopedics 09/11/22 Chika Carpenter MD [address] [place] [address] 09281 Home Care Provider Orthopedics 09/11/22 Ned Arnold, PT [address] [place] [address] Electronics Mechanic Apprentice Post Acute Care 09/11/22 Paving Contractor Relationship Specialty Start Date End Date Timothy Correa PCP - General Family Medicine 03/01/13 Rony Doyle [facility] [address] [place] [address] Specialty Archives Specialist Orthopedics 07/29/22 10/13/22 Paving Contractor Relationship Specialty Start Date End Date Timothy Correa MD [address] [facility] [address] PCP - General Family Medicine 11/06/20 Paving Contractor Relationship Specialty Start Date End Date Timothy Correa MD [address] [facility] [address] PCP - General Family Medicine 11/06/20 Paving Contractor Relationship Specialty Start Date End Date Timothy Correa MD [address] [facility] [address] PCP - General Family Medicine 11/06/20 Paving Contractor Relationship Specialty Start Date End Date Timothy Correa MD [address] [facility] [address] PCP - General Family Medicine 11/06/20 Paving Contractor Relationship Specialty Start Date End Date Timothy Correa MD [address] [facility] [address] PCP - General Family Medicine 11/06/20 Paving Contractor Relationship Specialty Start Date End Date Timothy Correa MD [address] [facility] [address] PCP - General Family Medicine 11/06/20 Source Comments (unrecognize d section and content) In the event this informatio n is protected by the Federal Confidentiality of Alcohol and Drug Abuse Patient Records regulations: The Federal rules restrict any use of the information to criminally investigate or prosecute any alcohol or drug abuse patient.[facility] the event this information is protected by the Federal Confidentiality of Alcohol and Drug Abuse Patient Records regulations: The Federal rules restrict any use of the information to criminally investigate or prosecute any alcohol or drug abuse patient.[facility] HospitalIn the event this information is protected by the Federal Confidentiality of Alcohol and Drug Abuse Patient Records regulations: The Federal rules restrict any use of the information to criminally investigate or prosecute any alcohol or drug abuse patient.[facility] HospitalIn the event this information is protected by the Federal Confidentiality of Alcohol and Drug Abuse Patient Records regulations: The Federal rules restrict any use of the information to criminally investigate or prosecute any alcohol or drug abuse patient.[facility] HospitalIn the event this information is protected by the Federal Confidentiality of Alcohol and Drug Abuse Patient Records regulations: The Federal rules restrict any use of the information to criminally investigate or prosecute any alcohol or drug abuse patient.[facility] HospitalIn the event this information is protected by the Federal Confidentiality of Alcohol and Drug Abuse Patient Records regulations: The Federal rules restrict any use of the information to criminally investigate or prosecute any alcohol or drug abuse patient.[facility] HospitalIn the event this information is protected by the Federal Confidentiality of Alcohol and Drug Abuse Patient Records regulations: The Federal rules restrict any use of the information to criminally investigate or prosecute any alcohol or drug abuse patient.[facility] the event this information is protected by the Federal Confidentiality of Alcohol and Drug Abuse Patient Records regulations: The Federal rules restrict any use of the information to criminally investigate or prosecute any alcohol or drug abuse patient.[facility] HospitalIn the event this information is protected by the Federal Confidentiality of Alcohol and Drug Abuse Patient Records regulations: The Federal rules restrict any use of the information to criminally investigate or prosecute any alcohol or drug abuse patient.[facility] HospitalIn the event this information is protected by the Federal Confidentiality of Alcohol and Drug Abuse Patient Records regulations: The Federal rules restrict any use of the information to criminally investigate or prosecute any alcohol or drug abuse patient.[facility] HospitalIn the event this information is protected by the Federal Confidentiality of Alcohol and Drug Abuse Patient Records regulations: The Federal rules restrict any use of the information to criminally investigate or prosecute any alcohol or drug abuse patient.[facility] HospitalIn the event this information is protected by the Federal Confidentiality of Alcohol and Drug Abuse Patient Records regulations: The Federal rules restrict any use of the information to criminally investigate or prosecute any alcohol or drug abuse patient.[facility] HospitalIn the event this information is protected by the Federal Confidentiality of Alcohol and Drug Abuse Patient Records regulations: The Federal rules restrict any use of the information to criminally investigate or prosecute any alcohol or drug abuse patient.[facility] HospitalIn the event this information is protected by the Federal Confidentiality of Alcohol and Drug Abuse Patient Records regulations: The Federal rules restrict any use of the information to criminally investigate or prosecute any alcohol or drug abuse patient.[facility] HospitalIn the event this information is protected by the Federal Confidentiality of Alcohol and Drug Abuse Patient Records regulations: The Federal rules restrict any use of the information to criminally investigate or prosecute any alcohol or drug abuse patient.[facility] HospitalIn the event this information is protected by the Federal Confidentiality of Alcohol and Drug Abuse Patient Records regulations: The Federal rules restrict any use of the information to criminally investigate or prosecute any alcohol or drug abuse patient.[facility] HospitalIn the event this information is protected by the Federal Confidentiality of Alcohol and Drug Abuse Patient Records regulations: The Federal rules restrict any use of the information to criminally investigate or prosecute any alcohol or drug abuse patient.[facility] HospitalIn the event this information is protected by the Federal Confidentiality of Alcohol and Drug Abuse Patient Records regulations: The Federal rules restrict any use of the information to criminally investigate or prosecute any alcohol or drug abuse patient.[facility] HospitalIn the event this information is protected by the Federal Confidentiality of Alcohol and Drug Abuse Patient Records regulations: The Federal rules restrict any use of the information to criminally investigate or prosecute any alcohol or drug abuse patient.[facility] HospitalIn the event this information is protected by the Federal Confidentiality of Alcohol and Drug Abuse Patient Records regulations: The Federal rules restrict any use of the information to criminally investigate or prosecute any alcohol or drug abuse patient.[facility] HospitalIn the event this information is protected by the Federal Confidentiality of Alcohol and Drug Abuse Patient Records regulations: The Federal rules restrict any use of the information to criminally investigate or prosecute any alcohol or drug abuse patient.[facility] HospitalIn the event this information is protected by the Federal Confidentiality of Alcohol and Drug Abuse Patient Records regulations: The Federal rules restrict any use of the information to criminally investigate or prosecute any alcohol or drug abuse patient.[facility] HospitalIn the event this information is protected by the Federal Confidentiality of Alcohol and Drug Abuse Patient Records regulations: The Federal rules restrict any use of the information to criminally investigate or prosecute any alcohol or drug abuse patient.[facility] HospitalIn the event this information is protected by the Federal Confidentiality of Alcohol and Drug Abuse Patient Records regulations: The Federal rules restrict any use of the information to criminally investigate or prosecute any alcohol or drug abuse patient.[facility] HospitalIn the event this information is protected by the Federal Confidentiality of Alcohol and Drug Abuse Patient Records regulations: The Federal rules restrict any use of the information to criminally investigate or prosecute any alcohol or drug abuse patient.[facility] HospitalIn the event this information is protected by the Federal Confidentiality of Alcohol and Drug Abuse Patient Records regulations: The Federal rules restrict any use of the information to criminally investigate or prosecute any alcohol or drug abuse patient.[facility] HospitalIn the event this information is protected by the Federal Confidentiality of Alcohol and Drug Abuse Patient Records regulations: The Federal rules restrict any use of the information to criminally investigate or prosecute any alcohol or drug abuse patient.[facility] HospitalIn the event this information is protected by the Federal Confidentiality of Alcohol and Drug Abuse Patient Records regulations: The Federal rules restrict any use of the information to criminally investigate or prosecute any alcohol or drug abuse patient.[facility] HospitalIn the event this information is protected by the Federal Confidentiality of Alcohol and Drug Abuse Patient Records regulations: The Federal rules restrict any use of the information to criminally investigate or prosecute any alcohol or drug abuse patient.[facility] HospitalIn the event this information is protected by the Federal Confidentiality of Alcohol and Drug Abuse Patient Records regulations: The Federal rules restrict any use of the information to criminally investigate or prosecute any alcohol or drug abuse patient.[facility] HospitalIn the event this information is protected by the Federal Confidentiality of Alcohol and Drug Abuse Patient Records regulations: The Federal rules restrict any use of the information to criminally investigate or prosecute any alcohol or drug abuse patient.[facility] HospitalIn the event this information is protected by the Federal Confidentiality of Alcohol and Drug Abuse Patient Records regulations: The Federal rules restrict any use of the information to criminally investigate or prosecute any alcohol or drug abuse patient.[facility] HospitalIn the event this information is protected by the Federal Confidentiality of Alcohol and Drug Abuse Patient Records regulations: The Federal rules restrict any use of the information to criminally investigate or prosecute any alcohol or drug abuse patient.[facility] HospitalIn the event this information is protected by the Federal Confidentiality of Alcohol and Drug Abuse Patient Records regulations: The Federal rules restrict any use of the information to criminally investigate or prosecute any alcohol or drug abuse patient.[facility] HospitalIn the event this information is protected by the Federal Confidentiality of Alcohol and Drug Abuse Patient Records regulations: The Federal rules restrict any use of the information to criminally investigate or prosecute any alcohol or drug abuse patient.[facility] HospitalIn the event this information is protected by the Federal Confidentiality of Alcohol and Drug Abuse Patient Records regulations: The Federal rules restrict any use of the information to criminally investigate or prosecute any alcohol or drug abuse patient.[facility] HospitalIn the event this information is protected by the Federal Confidentiality of Alcohol and Drug Abuse Patient Records regulations: The Federal rules restrict any use of the information to criminally investigate or prosecute any alcohol or drug abuse patient.[facility] HospitalIn the event this information is protected by the Federal Confidentiality of Alcohol and Drug Abuse Patient Records regulations: The Federal rules restrict any use of the information to criminally investigate or prosecute any alcohol or drug abuse patient.[facility] HospitalIn the event this information is protected by the Federal Confidentiality of Alcohol and Drug Abuse Patient Records regulations: The Federal rules restrict any use of the information to criminally investigate or prosecute any alcohol or drug abuse patient.[facility] HospitalIn the event this information is protected by the Federal Confidentiality of Alcohol and Drug Abuse Patient Records regulations: The Federal rules restrict any use of the information to criminally investigate or prosecute any alcohol or drug abuse patient.[facility] HospitalIn the event this information is protected by the Federal Confidentiality of Alcohol and Drug Abuse Patient Records regulations: The Federal rules restrict any use of the information to criminally investigate or prosecute any alcohol or drug abuse patient.[facility] HospitalIn the event this information is protected by the Federal Confidentiality of Alcohol and Drug Abuse Patient Records regulations: The Federal rules restrict any use of the information to criminally investigate or prosecute any alcohol or drug abuse patient.[facility] HospitalIn the event this information is protected by the Federal Confidentiality of Alcohol and Drug Abuse Patient Records regulations: The Federal rules restrict any use of the information to criminally investigate or prosecute any alcohol or drug abuse patient.[facility] HospitalIn the event this information is protected by the Federal Confidentiality of Alcohol and Drug Abuse Patient Records regulations: The Federal rules restrict any use of the information to criminally investigate or prosecute any alcohol or drug abuse patient.[facility] HospitalIn the event this information is protected by the Federal Confidentiality of Alcohol and Drug Abuse Patient Records regulations: The Federal rules restrict any use of the information to criminally investigate or prosecute any alcohol or drug abuse patient.[facility] HospitalIn the event this information is protected by the Federal Confidentiality of Alcohol and Drug Abuse Patient Records regulations: The Federal rules restrict any use of the information to criminally investigate or prosecute any alcohol or drug abuse patient.[facility] HospitalIn the event this information is protected by the Federal Confidentiality of Alcohol and Drug Abuse Patient Records regulations: The Federal rules restrict any use of the information to criminally investigate or prosecute any alcohol or drug abuse patient.[facility] HospitalIn the event this information is protected by the Federal Confidentiality of Alcohol and Drug Abuse Patient Records regulations: The Federal rules restrict any use of the information to criminally investigate or prosecute any alcohol or drug abuse patient.[facility] HospitalIn the event this information is protected by the Federal Confidentiality of Alcohol and Drug Abuse Patient Records regulations: The Federal rules restrict any use of the information to criminally investigate or prosecute any alcohol or drug abuse patient.[facility] HospitalIn the event this information is protected by the Federal Confidentiality of Alcohol and Drug Abuse Patient Records regulations: The Federal rules restrict any use of the information to criminally investigate or prosecute any alcohol or drug abuse patient.[facility] HospitalIn the event this information is protected by the Federal Confidentiality of Alcohol and Drug Abuse Patient Records regulations: The Federal rules restrict any use of the information to criminally investigate or prosecute any alcohol or drug abuse patient.[facility] HospitalIn the event this information is protected by the Federal Confidentiality of Alcohol and Drug Abuse Patient Records regulations: The Federal rules restrict any use of the information to criminally investigate or prosecute any alcohol or drug abuse patient.[facility] HospitalIn the event this information is protected by the Federal Confidentiality of Alcohol and Drug Abuse Patient Records regulations: The Federal rules restrict any use of the information to criminally investigate or prosecute any alcohol or drug abuse patient.[facility] HospitalIn the event this information is protected by the Federal Confidentiality of Alcohol and Drug Abuse Patient Records regulations: The Federal rules restrict any use of the information to criminally investigate or prosecute any alcohol or drug abuse patient.[facility] HospitalIn the event this information is protected by the Federal Confidentiality of Alcohol and Drug Abuse Patient Records regulations: The Federal rules restrict any use of the information to criminally investigate or prosecute any alcohol or drug abuse patient.[facility] HospitalIn the event this information is protected by the Federal Confidentiality of Alcohol and Drug Abuse Patient Records regulations: The Federal rules restrict any use of the information to criminally investigate or prosecute any alcohol or drug abuse patient.[facility] HospitalIn the event this information is protected by the Federal Confidentiality of Alcohol and Drug Abuse Patient Records regulations: The Federal rules restrict any use of the information to criminally investigate or prosecute any alcohol or drug abuse patient.[facility] HospitalIn the event this information is protected by the Federal Confidentiality of Alcohol and Drug Abuse Patient Records regulations: The Federal rules restrict any use of the information to criminally investigate or prosecute any alcohol or drug abuse patient.[facility] HospitalIn the event this information is protected by the Federal Confidentiality of Alcohol and Drug Abuse Patient Records regulations: The Federal rules restrict any use of the information to criminally investigate or prosecute any alcohol or drug abuse patient.[facility] FOR RECORDS PERTAINING TO PATIENTS WHO [...] BE BASED ON THE PRIMARY CLINICAL RECORDS. [facility]. provides no warranty or guarantee of the accuracy or completeness of information in this document.
--- NOTE | 2025-02-05 15:43 | EKG12_ITS ---
Test Reason : PREOP Blood Pressure : */* mmHG Vent. Rate : 58 BPM Atrial Rate : 58 BPM P-R Int : 190 ms QRS Dur : 108 ms QT Int : 426 ms P-R-T Axes : 13 -11 19 degrees QTcB Int : 418 ms Sinus bradycardia Otherwise normal ECG No previous ECGs available Confirmed by DREW ALVARENGA, YVON ([id number]), purchasing expeditor FREDI SOTO [id number]) on 02/08/2025 1:38:02 PM Referred By: Confirmed By: YVON RUSSELL MD
--- OUTSIDE RECORDS SUMMARY | 2025-02-05 15:44 | XMS RPT_ITS | CCD ---
Author Organization [facility] Inform ion [facility] Care Team Providers Care Wreath Maker Name Role Phone Timothy Correa Primary Care Provider Unavailable Primary Care Provider UnavailTimothy Elaine MD Primary Care Provider Timothy Correa Primary Care Provider Timothy Correa MD Primary Care Provider [phone] Timothy Correa Primary Care Provider Timothy Correa Primary Care Provider [phone] Sissen PSS, Rony Unavailable Unavailable Matthieu Esparza PA-C Unavailable Chika Carpenter MD Unavailable [phone] Knupp PT, Ned Unavailable Timothy Correa MD Primary Care Provider [phone] Knupp PT, Ned Unavailable PROVIDER, UNKNOWN Primary Care Unavailable PROVIDER, UNKNOWN Referring Unavailable PROVIDER, UNKNOWN Primary Care Unavailable PROVIDER, UNKNOWN Referring Unavailable PROVIDER, UNKNOWN Primary Care Unavailable YANET BOYLE Referring Unavailable PROVIDER, UNKNOWN Primary Care Unavailable PROVIDER, UNKNOWN Referring Unavailable PROVIDER, UNKNOWN Primary Care Unavailable YANET BYOLE Referring Unavailable PROVIDER, UNKNOWN Primary Care Unavailable [...] HYDROcodone; Translations: [HYDROCODONE-ACETA MINOPHEN] Drug Allergy 5 [place], [place] (20 sources) Codeine; Translations: [CODEINE] Drug Allergy 0 Rash [place], [place] (20 sources) Morphine; Translations: [MORPHINE] Drug Allergy 1 [facility] (1 source) Codeine Drug Allergy 5 [facility] (1 source) Morphine Drug Allergy 4 [facility] Medications Current Medications Medication Drug Class(es) Dates Sig (Normalized) Sig (Original) acetaminophen 500 mg oral tablet (20 sources) Start: 09-11-2022 take 2 tablets by mouth every eight hours as needed Acetaminophen Extra Strength 500 MG tablet Take 1,000 mg by mouth every 8 hours as needed. 09/11/2022 Active Comment on above: Take 2 tablets by [facility] every 8 hours as needed for [...] days. 60 Tablet 0 10/27/2023 11/11/2023 Active [id number] 200 actuat albuterol 0.09 mg/actuat metered dose [...] Comment on above: Take 1 capsule by [facility] once daily. disability placard (11 sources) [...] Comment on above: Take 1 tablet by [facility] once daily. metFORMIN hydrochloride 500 mg [...] including day of surgery. polyethylene glycol 3350 [id number] mg powder for oral solution (8 sources) [...] on above: Take 1 capsule by [facility] twice daily as needed for constipation. 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 Normal [facility] Patient Instructionson 10-18 Parachute Supervisor Authentication Interface Message Text Today the following vaccines were administered: Pneumococcal Conjugate (PCV 20). Vaccines may have different side effects and care recommendations. Please refer to the Vaccine Information Sheet(s) (VIS) provided in your preferred language to learn more about the vaccines that were administered today. If you have any problems or questions, please call the [facility] line at [phone]. Normal [facility] Progress Noteson 10-18-2024 Parachute Supervisor Authentication Interface Message Text ANNUAL WELLNESS VISIT Subjective Mr. Osborn is a 64 year old who is being seen for his Annual Wellness Visit. I have reviewed and updated the following information (Care Team, Medical History, Surgical History, Social History, Family History and current medications including [id number] medications and supplements): Patient Care Team: Timothy [...] Session: Patient declined Stress: Patient Declined (08/12/2024) [place] Citizen [place] of Occupational Health - Occupational Stress Questionnaire Feeling of Stress : Patient declined Social Connections: Unknown (08/12/2024) Social Connection and Isolation Panel [NHANES] Frequency of Communication with Friends and Family: Patient declined Frequency of Social Gatherings with Friends and Family: Patient declined Attends Synagogue Services: Patient declined Active Member of Clubs [...] / Excessive Appetite?: Not at all Self [place]?: Not at all Trouble Concentrating?: Not at [...] 10/18/2024 (more content not included)... Normal The [facility] Interface Message Text Patient was identified by name and date of . Jeanie Perkins MA During this visit the vaccine(s) was: Administered Provider received consent from patient/parent/patient sales representative aircraft for immunization(s) as ordered, questionnaire completed and VIS educational handouts reviewed with patient/parent/patient sales representative aircraft who denies contraindications Double identification of patient completed with patient/parent/patient sales representative aircraft using name and prior to administration, and patient tolerated immunization(s) administration without incident. Normal [facility] Progress Noteson 10-16-2024 Parachute Supervisor Authentication Interface Message Text Your blood counts, liver function, kidney function, thyroid function and cholesterol were normal. The hemoglobin A1c shows good control of blood sugar. The vitamin B12 levels and vitamin-D levels were good. Normal [facility] BASIC METABOLIC PANELon 03-0 Anion gap [Moles/Vol] 13 mmol/L Normal 10-20 [facility] Comment on above: Performed By: #### C H8, HEPATIC, HDL, PSA #### [facility] [address] [place] [address], Calcium [Mass/Vol] 9.0 mg/dL Normal 8.6-10.3 [facility] Comment on above: Performed By: #### C H8, HEPATIC, HDL, PSA #### [facility] [address] [place] [address], Chloride [Moles/Vol] 103 mmol/L Normal 98-107 [facility] Comment on above: Performed By: #### C H8, HEPATIC, HDL, PSA #### [facility] [address] [place] [address], CO2 [Moles/Vol] 28 mmol/L Normal 21-31 [facility] Comment on above: Performed By: #### C H8, HEPATIC, HDL, PSA #### [facility] [address] [place] [address], Creatinine [Mass/Vol] 0.68 mg/dL Low 0.70-1.30 [facility] Comment on above: Performed By: #### C H8, HEPATIC, HDL, PSA #### [facility] [address] [place] [address], ESTIMATED GFR (CKD-EPI) 103 mL/min/1.73sqm Normal >=60 [facility] Comment on above: Result Comment: 2020 [...] Inclusion of Race in Diagnosing Kidney Disease. Nepalese Journal of Kidney Diseases 2021;79(2):268-88.e1. 2. N Engl J Med 1 Vol. 385 Issue 19 Pages [phone] Performed By: #### Daniel H8, HEPATIC, HDL, PSA #### [facility] [address] [place], [place], Glucose [Mass/Vol] 140 mg/dL High 74-109 [facility] Comment on above: Performed By: #### Daniel H8, HEPATIC, HDL, PSA #### [facility] [address] [place], [place], Potassium [Moles/Vol] 4.1 mmol/L Normal 3.5-5.0 [facility] Comment on above: Performed By: #### Daniel H8, HEPATIC, HDL, PSA #### [facility] [address] [place], [place], Sodium [Moles/Vol] 140 mmol/L Normal 136-145 [facility] Comment on above: Performed By: #### Daniel H8, HEPATIC, HDL, PSA #### [facility] [address] [place], [place], Urea nitrogen [Mass/Vol] 11 mg/dL Normal 7-25 [facility] Comment on above: Performed By: #### Daniel H8, HEPATIC, HDL, PSA #### [facility] [address] [place], [place], CBC WITH DIFFERENTIALon 03-0 -2024 Basophils (Bld) [#/Vol] 0.07 10*3/uL Normal 0.00-0.20 [facility] Comment on above: Performed By: #### C BCDSAT ####[facility] [id number] [place], [place], Basophils/100 WBC (Bld) 1.0 % Normal <=1.9 [facility] Comment on above: Performed By: #### C BCDSAT ####[facility] [id number] [place], [place], Eosinophils (Bld) [#/Vol] 0.22 10*3/uL Normal 0.00-0.70 [facility] Comment on above: Performed By: #### C BCDSAT ####[facility] [id number] [place], [place], Eosinophils/100 WBC (Bld) 3.3 % Normal 0.1-4.0 [facility] Comment on above: Performed By: #### C BCDSAT ####[facility] PATHOLOGY [id number] [place], [place], Erythrocyte distribution width (RBC) [Ratio] 17.1 % High 11.5-14.5 [facility] Comment on above: Performed By: #### C BCDSAT ####[facility] PATHOLOGY [id number] [place], [place], Hematocrit (Bld) [Volume fraction] 40.2 % Low 41.0-53.0 [facility] Comment on above: Performed By: #### C BCDSAT ####[facility] PATHOLOGY [id number] [place] [address], Hemoglobin (Bld) [Mass/Vol] 13.2 g/dL Low 13.9-16.3 The [facility] Comment on above: Performed By: #### C BCDSAT ####[facility] PATHOLOGY [id number] [place] [address], Lymphocytes (Bld) [#/Vol] 2.48 10*3/uL Normal 1.00-4.80 The [facility] Comment on above: Performed By: #### C BCDSAT ####[facility] PATHOLOGY [id number] [place] [address], Lymphocytes/100 WBC (Bld) 36.5 % Normal 24.0-44.0 The [facility] Comment on above: Performed By: #### C BCDSAT ####[facility] PATHOLOGY [id number] [place], [place], MCH (RBC) [Entitic mass] 25.6 pg Low 26.0-34.0 The [facility] Comment on above: Performed By: #### C BCDSAT ####[facility] PATHOLOGY [id number] [place] [address], MCHC (RBC) [Mass/Vol] 32.9 g/dL Normal 32.0-35.9 [facility] Comment on above: Performed By: #### Daniel BORJAAT ####[facility] PATHOLOGY [id number] [place], [place], MCV (RBC) [Entitic vol] 78 fL Low 80-100 [facility] Comment on above: Performed By: #### Daniel BORJAAT ####[facility] PATHOLOGY [id number] [place] [address], Monocytes (Bld) [#/Vol] 0.81 10*3/uL Normal 0.20-1.00 [facility] Comment on above: Performed By: #### Daniel BORJAAT ####[facility] PATHOLOGY [id number] [place] [address], Monocytes/100 WBC (Bld) 12.0 % High 2.0-11.0 The [facility] Comment on above: Performed By: #### Daniel BORJAAT ####[facility] PATHOLOGY [id number] [place] [address], Neutrophils (Bld) [#/Vol] 3.20 10*3/uL Normal 1.50-8.00 The [facility] Comment on above: Performed By: #### Daniel BORJAAT ####[facility] PATHOLOGY [id number] [place] [address], Neutrophils/100 WBC (Bld) 47.2 % Normal 31.0-76.0 The [facility] Comment on above: Performed By: #### Daniel BORJAAT ####[facility] PATHOLOGY [id number] [place] [address], Platelet mean volume (Bld) [Entitic vol] 8.4 fL Normal 7.5-11.2 The [facility] Comment on above: Performed By: #### Daniel BORJAAT ####[facility] PATHOLOGY [id number] [place], [place], Platelets (Bld) [#/Vol] 302 10*3/uL Normal 150-400 [facility] Comment on above: Performed By: #### Daniel BORJAAT ####[facility] PATHOLOGY [id number] [place], [place], RBC (Bld) [#/Vol] 5.16 10*6/uL Normal 4.50-5.90 The [facility] Comment on above: Performed By: #### C BCDSAT ####[facility] PATHOLOGY [id number] [place], [place], WBC (Bld) [#/Vol] 6.8 10*3/uL Normal 4.5-11.5 The [facility] Comment on above: Performed By: #### C BCDSAT ####[facility] PATHOLOGY [id number] [place], [place], FULL LIPID PROFILEon 025 Cholesterol [Mass/Vol] 140 mg/dL Normal <200 The [facility] Comment on above: Result Comment: Lizette rable: < 200 mg/dL Borderline High: 200-239 mg/dL High: > = 240 mg/dL Performed By: #### C H8, HEPATIC, HDL, PSA ####[facility] PATHOLOGY [id number] [place] [address], Cholesterol in LDL [Mass/Vol] 88 mg/dL Normal <100 The [facility] Comment on above: Performed By: #### C H8, HEPATIC, HDL, PSA ####[facility] PATHOLOGY [id number] [place] [address], Cholesterol.total/Cho lesterol in HDL [Mass ratio] 3.89 {ratio} Normal <5.00 The [facility] Comment on above: Performed By: #### C H8, HEPATIC, HDL, PSA ####[facility] PATHOLOGY [id number] [place], [place], HDL CHOL 36 mg/dL Low >40 The [facility] Comment on above: Performed By: #### C H8, HEPATIC, HDL, PSA ####[facility] PATHOLOGY [id number] [place] [address], LDL/HDL 2.44 Normal <3.57 The [facility] Comment on above: Performed By: #### C H8, HEPATIC, HDL, PSA ####[facility] PATHOLOGY [id number] [place] [address], NON-HDL CHOLESTEROL 104 mg/dL Normal <130 The [facility] Comment on above: Performed By: #### C H8, HEPATIC, HDL, PSA ####[facility] [id number] [place], [place], Triglyceride [Mass/Vol] 121 mg/dL Normal <150 The [facility] Comment on above: Result Comment: Norm al: < 150 mg/dL Borderline High: 150-199 mg/dL High: 200-499 mg/dL Very High: > = 500 mg/dL Performed By: #### C H8, HEPATIC, HDL, PSA ####[facility] [id number] [place], [place], HEMOGLOBIN A1Con 10-14-2024 Glucose [Mass/Vol] 154 mg/dL Normal The [facility] Comment on above: Performed By: #### H B A1C ####[facility] [address] [place], [place], HbA1c (Bld) [Mass fraction] 7.0 % High 4.0-5.6 The [facility] Comment on above: Performed By: #### H B A1C ####[facility] [address] [place], [address] HEPATIC FUNCTION PANELon Albumin [Mass/Vol] 4.4 g/dL Normal 3.5-5.7 The [facility] Comment on above: Performed By: #### C H8, HEPATIC, HDL, PSA #### [facility] [address] [place] [address], ALK 67 IU/L Normal 34-104 The [facility] Comment on above: Performed By: #### C H8, HEPATIC, HDL, PSA #### [facility] [address] [place] [address], ALT [Catalytic activity/Vol] 23 U/L Normal 7-52 The [facility] Comment on above: Performed By: #### C H8, HEPATIC, HDL, PSA #### [facility] [address] [place] [address], AST [Catalytic activity/Vol] 20 U/L Normal 13-39 [facility] Comment on above: Performed By: #### C H8, HEPATIC, HDL, PSA #### S [facility] [address] [place] [address], Bilirubin [Mass/Vol] 0.9 mg/dL Normal 0.3-1.0 [facility] Comment on above: Performed By: #### C H8, HEPATIC, HDL, PSA #### S [facility] [address] [place] [address], Bilirubin.direct [Mass/Vol] 0.17 mg/dL Normal 0.03-0.18 The [facility] Comment on above: Performed By: #### C H8, HEPATIC, HDL, PSA #### S [facility] [address] [place] [address], Protein [Mass/Vol] 6.8 g/dL Normal 6.0-8.3 [facility] Comment on above: Performed By: #### C H8, HEPATIC, HDL, PSA #### [facility] [address] [place] [address], MICROALBUMIN, URINEon 2024 Albumin DL <= 20 mg/L (U) [Mass/Vol] mg/dL Normal [facility] Comment on above: Order Comment: Note updated reference ranges. Performed By: #### U R MA #### S [facility] [address] [place] [address], CREATININE, URINE 58 mg/dL Normal The [facility] Comment on above: Order Comment: Note updated reference ranges. Performed By: #### U R MA #### S [facility] [address] [place] [address], MICRO-ALBUMIN/CREAT RATIO < 12 Normal <=30 The [facility] Comment on above: Order Comment: Note updated reference ranges. Performed By: #### U R MA #### S [facility] [address] [place] [address], Progress Noteson 10-14-2024 Parachute Supervisor Authentication Interface Message Text Identity was confirmed by verifying patient name and date of . Blood drawn for patient. Blood obtained from right arm, using 21 gauge butterfly. Patient denies discomfort, bleeding controlled, bandage applied. Site appears normal. Urine sample obtained, placed in proper tube for transportation to lab for processing. Normal [facility] TSHon 10-14-2024 TSH 1.035 uIU/mL Normal 0.450-5.330 [facility] Comment on above: Performed By: #### T SH HS, VITB12 #### [facility] [address] [place] [address], VITAMIN B12 (CYANOCOBALAMIN) on 10-14-2024 Cobalamin (Vitamin B12) [Mass/Vol] 1591 pg/mL High 180-914 [facility] Comment on above: Order Comment: Defic ient: <= 145 pg/mL Insufficient: 145 - 180 pg/mL Sufficient: 180 - 914 pg/mL Performed By: #### T SH HS, VITB12 #### [facility] [address] [place] [address], VITAMIN D, 25-HYDROXYon VITD25 43.2 ng/mL Normal 30-100 [facility] Comment on above: Order Comment: Defic ient : <20.0 ng/mL Insufficient : 20.0-29.9 ng/mL Sufficient : 30.0 - 100.0 ng/mL Potential Toxicity : >100.0 ng/mL Performed By: #### V ITD25 #### [facility] [address] [place] [address], Telephone Encounteron 2024 Parachute Supervisor Authentication Interface Message Text Left message on patient's VM that lab orders have been placed and he can report to the office to have drawn. Nothing further needed at this time Normal [facility] Telephone Encounteron 2024 Parachute Supervisor Authentication Interface Message Text Pt is scheduled for office visit with PCP on 10/18/24. Would like to have labs drawn prior to this appointment due to fasting restrictions, Please place orders in chart if appropriate and send [employer] message to patient advising he can come have drawn. Normal [facility] [employer] Telephone Encounteron 2024 Parachute Supervisor Authentication Interface Message Text Lm on pt vm that appt is Cx. Asked for return call or go on [email or web address] to r/s. Also sending [employer] message. Normal [facility] Surgery Visit Reporton 09-10 Surgery Visit Report [facility] [address] [place] [address] OFFICE VISIT Date of Service: 09/10/24 MR#: [id number] Acct: [id number] Name: ROBERTO OSBORN Rep #: [id number] : 1960 Provider: Dr. Bunny baig MD Age/Sex: 64/M Location: [facility] Status: Signed Intake Vital Signs 06/14/24 [...] you fallen in the past year?: No [facility] Medical History (Updated 09/10/24 @ 08:57 by [...] healthy appearing, comfortable and no acute distress [facility] Head: normal to inspection, normocephalic and atraumatic Eyes General: appearance normal, both eyes and all related structures Neck Neck: normal visual inspection GI Other: Abdomen is soft, nontender and nondistended. Examination of the left lateral abdomen near the waistline does reveal some asymmetric swelling compared to the right. I really do not appreciate any obvious dorcas (more content not included)... Normal [facility] Telephone Encounteron 2024 Parachute Supervisor Authentication Interface Message Text Situation: calling asking for images of CT to be forwarded to their office. Background: na Assessment: na Recommendation: provided with number to medical records and call was transferred [phone] Normal [facility] Progress Noteson 09-06-2024 Parachute Supervisor Authentication Interface Message Text HPI: Roberto is [...] Diagnoses and all orders for this visit: [facility] abdominal mass - EXTERNAL SERVICE REQUEST FOR CARE OUTSIDE THE [employer] [facility] Normal [facility] Parachute Supervisor Authentication Interface Message Text Patient was identified by name and date of . Jeanie ePrkins MA Normal [facility] CT ABDOMEN/PELVIS W/O CONTRA STon 08-20-2024 CT ABDOMEN/PELVIS W/O CONTRAST EXAMINATION: CT ABDOMEN/PELVIS W/O CONTRAST 08/19/2024 01:57 PM CLINICAL HISTORY: Abdominal mass, neoplasm suspected ASSOCIATED DIAGNOSIS: [facility] abdominal mass ORDERING PROVIDER: TIMOTHY CORREA [...] as noted above. MACRO: None Normal [facility] Progress Noteson 08-16-2024 Parachute Supervisor Authentication Interface Message Text HPI: Roberto presents [...] an (more content not included)... Normal [facility] [employer] Parachute Supervisor Authentication Interface Message Text Identification was verified by patient verbalizing his name and date of . Normal [facility] [employer] Parachute Supervisor Authentication Interface Message Text Patient was identified by name and date of . HARVINDER Miller/MPA Normal [facility] Neurology Visit Reporton Neurology Visit Report [facility] [address] [facility], [address] [place] [address] OFFICE VISIT Date of Service: 06/14/24 MR#: [id number] Acct: [id number] Name: ROBERTO OSBORN Rep #: [id number] : 1960 Provider: Dr. Adryan angel MD Age/Sex: 64/M Location: [facility] Status: Signed HPI HPI Chief Complaint: Establish Care Details: The patient is a 64-year-old right handed male who presents to [facility]. He self referred for left leg pain due to lower back pain. He had EMG/NCS done 03/2024 that revealed polyneuropathy. He has been seeing [facility] for this as well, was [...] on 09/24/2023 as well as records from [facility], [facility] where he has been receiving treatment for chronic low back pain. Record indicates patient has had 3 back surgeries. Most recently at L3-4-5 and S1 with fusions that took place at [facility] on 09/09/2023. Patient has also received interventional treatments with back injections and facet injections from [facility]. Patient's current medications include gabapentin 600 mg [...] x 3. Memory intact. 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 Insight and judgment appear [...] to t (more content not included)... Normal [facility].doppler Lower extremity v ein - lefton [...] extremity deep venous thrombosis identified. MACRO: None [facility] Rad[facility] (narrative) [facility] Lower extremity v ein - leftOrdered By: Anson Levin on 12-16-2023 [employer] Work Phone: Arason 09-24-2023 Aras HNO ID: [id number] Author: GLADYS LAWRENCE RT(R) Service: ? Author Type: Employment Case Manager Type: Pa-Go Mobile Filed: 09/24/2023 09:27 Note Text: Radiology Service [...] PATIENT PRESENTS WITH AN IMPLANTABLE OR ATTACHED STRIPPER APPRENTICE: No ALLERGIES: Reviewed and unchanged CONTRAST ALLERGY: [...] 24, 2023 TIME: 9:26 AM Normal [facility] Basic metabolic 2000 panelon 09-24-2023 Anion gap [Moles/Vol] 12 mmol/L Normal 9-18 [facility] Comment on above: Order Comment: Speci men Type: BLOOD SPECIMEN Ordering Facility: [facility] Address: [address] [place] [address] Performed By: #### 2 4321-2 #### [facility] CLIA [id number] [address] [place] [address] [place] Calcium [Mass/Vol] 9.3 mg/dL Normal 8.5-10.2 [facility] Comment on above: Order Comment: Emliyi men Type: BLOOD SPECIMEN Ordering Facility: [facility] Address: [address] [place] [address] Performed By: #### 2 4321-2 #### [facility] CLIA [id number] [address] [place] [address] [place] Chloride [Moles/Vol] 99 mmol/L Normal 97-105 [facility] Comment on above: Order Comment: Speci men Type: BLOOD SPECIMEN Ordering Facility: [facility] Address: [address] [place] [address] Performed By: #### 2 4321-2 #### [facility] CLIA [id number] [address] [place] [address] [place] CO2 [Moles/Vol] 25 mmol/L Normal 22-30 [facility] Comment on above: Order Comment: Speci men Type: BLOOD SPECIMEN Ordering Facility: [facility] Address: [address] [place] [address] Performed By: #### 2 4321-2 #### [facility] CLIA [id number] [address] [place] [address] [place] Creatinine [Mass/Vol] 0.57 mg/dL Low 0.73-1.22 [facility] Comment on above: Order Comment: Vera grant Type: BLOOD SPECIMEN Ordering Facility: [facility] Address: [address] [place] [address] Performed By: #### 2 4321-2 #### [facility] CLIA [id number] [address] [place] [address] [place] Creatinine and Glomerular filtration rate.predicted panel (S/P/Bld) 109 mL/min/1.73m??? Normal >=60 [facility] Comment on above: Order Comment: Vera juanita Type: BLOOD SPECIMEN Ordering Facility: [facility] Address: [address] [place] [address] Result Comment: Snehal mated Glomerular Filtration Rate [...] GFR. Performed By: #### 2 4321-2 #### [facility] CLIA [id number] [address] [place] [address] [place] Glucose [Mass/Vol] 167 mg/dL High 74-99 [facility] Comment on above: Order Comment: Vera juanita Type: BLOOD SPECIMEN Ordering Facility: [facility] Address: [address] [place] [address] Result Comment: The [place] Diabetes Association (ADA) provides guidance for cutoff [...] Standards of Medical Care in Diabetes 2016, [place] [employer]. Diabetes Care. 2016.39(Suppl 1). Performed By: #### 2 4321-2 #### [facility] CLIA [id number] [address] [place] [address] [place] Potassium [Moles/Vol] 3.7 mmol/L Normal 3.7-5.1 [facility] Comment on above: Order Comment: Speci men Type: BLOOD SPECIMEN Ordering Facility: [facility] Address: [address] [place] [address] Performed By: #### 2 4321-2 #### [facility] CLIA [id number] [address] [place] [address] STATES [place] [facility] Sodium [Moles/Vol] 136 mmol/L Normal 136-144 [facility] Comment on above: Order Comment: Emilyi men Type: BLOOD SPECIMEN Ordering Facility: [facility] Address: [address] [place] [address] Performed By: #### 2 4321-2 #### [facility] CLIA [id number] [address] [place] [address] [place] Urea nitrogen [Mass/Vol] 7 mg/dL Low 9-24 [facility] Comment on above: Order Comment: Speci men Type: BLOOD SPECIMEN Ordering Facility: [facility] Address: [address] [place] [address] Performed By: #### 2 4321-2 #### [facility] CLIA [id number] [address] [place] [address] [place] CBC panel Auto (Bld)on 09-24 Erythrocyte distribution width (RBC) [Ratio] 14.7 % Normal 11.5-15.0 [facility] Comment on above: Order Comment: Speci men Type: BLOOD SPECIMEN Ordering Facility: [facility] Address: [address] [place] [address] Performed By: #### 5 8410-2 #### [facility] CLIA [id number] [address] [place] [id number] [place] [address] [place] Hematocrit (Bld) [Volume fraction] 36.9 % Low 39.0-51.0 [facility] Comment on above: Order Comment: Speci men Type: BLOOD SPECIMEN Ordering Facility: [facility] Address: [address] [place] [address] Performed By: #### 5 8410-2 #### [facility] CLIA [id number] [address] [place] [address] [place] Hemoglobin (Bld) [Mass/Vol] 12.1 g/dL Low 13.0-17.0 [facility] Comment on above: Order Comment: Speci men Type: BLOOD SPECIMEN Ordering Facility: [facility] Address: [address] [place] [address] Performed By: #### 5 8410-2 #### [facility] CLIA [id number] [address] [place] [address] [place] MCH (RBC) [Entitic mass] 28.7 pg Normal 26.0-34.0 [facility] Comment on above: Order Comment: Speci men Type: BLOOD SPECIMEN Ordering Facility: [facility] Address: [address] [place] [address] Performed By: #### 5 8410-2 #### [facility] CLIA [id number] [address] [place], [place] [address] [place] [address] [place] MCHC (RBC) [Mass/Vol] 32.8 g/dL Normal 30.5-36.0 [facility] Comment on above: Order Comment: Speci men Type: BLOOD SPECIMEN Ordering Facility: [facility] Address: [address] [place] [address] Performed By: #### 5 8410-2 #### [facility] CLIA [id number] [address] [place] [address] [place] MCV (RBC) [Entitic vol] 87.4 fL Normal 80.0-100.0 [facility] Comment on above: Order Comment: Speci men Type: BLOOD SPECIMEN Ordering Facility: [facility] Address: [address] [place] [address] Performed By: #### 5 8410-2 #### [facility] CLIA [id number] [address] [place] [address] [place] Platelet mean volume (Bld) [Entitic vol] 8.4 fL Low 9.0-12.7 [facility] Comment on above: Order Comment: Speci men Type: BLOOD SPECIMEN Ordering Facility: [facility] Address: [address] [place] [address] Performed By: #### 5 8410-2 #### [facility] CLIA [id number] [address] [place], [place] [address] [place] [address] [place] Platelets (Bld) [#/Vol] 578 10*3/uL High 150-400 [facility] Comment on above: Order Comment: Speci men Type: BLOOD SPECIMEN Ordering Facility: [facility] Address: [address] [place] [address] Performed By: #### 5 8410-2 #### [facility] CLIA [id number] [address] [place] [address] [place] RBC (Bld) [#/Vol] 4.22 10*6/uL Normal 4.20-6.00 [facility] Comment on above: Order Comment: Speci men Type: BLOOD SPECIMEN Ordering Facility: [facility] Address: [address] [place] [address] Performed By: #### 5 8410-2 #### [facility] CLIA [id number] [address] [place] [address] [place] WBC (Bld) [#/Vol] 12.19 10*3/uL High 3.70-11.00 [facility] Comment on above: Order Comment: Speci men Type: BLOOD SPECIMEN Ordering Facility: [facility] Address: [address] [place] [address] Performed By: #### 5 8410-2 #### [facility] CLIA [id number] [address] [place] [address] [place] CT LUMBAR SPINE W IVCONon CT LUMBAR SPINE W IVCON * * *Final Report* * * DATE OF EXAM: Sep 24 2023 9:25AM [facility] 0012 - CT LUMBAR SPINE W IVCON [...] are 5 lumbar-type vertebrae. Anatomic variant: None. Entry Level Civil Engineer (topogram) images: No additional findings. Alignment: Very [...] and assume there are 5 lumbar-type vertebrae. Revolving Inventory Clerk: [facility] Transcribe Date/Time: Sep 24 2023 9:32A Dictated by : CISCO SCHWAB MD This examination was interpreted and the report reviewed and electronically signed by: CISCO SCHWAB MD on Sep 24 2023 9:45AM EST [id number] Normal [facility] ED NOTEon 09-24-2023 ED NOTE HNO ID: [id number] Author: RANJIT CALABRESE RN Service: Emergency Medicine Author Type: Registered Nurse Type: ED Notes Filed: 09/24/2023 10:42 Note Text: Results are back, pt resting in bed, at bedside, pt feeling better. Normal [facility] ED NOTE HNO ID: [id number] Author: RANJIT CALABRESE RN Service: Emergency Medicine Author Type: Registered Nurse Type: ED Notes Filed: 09/24/2023 08:51 Note Text: Post void bladder scan 288 mls, doctor Jose made aware. Normal [facility] ED NOTE HNO ID: [id number] Author: RANJIT CALABRESE RN Service: Emergency Medicine Author Type: Registered Nurse Type: ED Notes Filed: 09/24/2023 07:34 Note Text: Ice pack to lower back for pt comfort Normal [facility] ED NOTE HNO ID: [id number] Author: RANJIT CALABRESE RN Service: Emergency Medicine Author Type: Registered Nurse Type: ED Notes Filed: 09/24/2023 07:15 Note Text: Back fusion 09-09-2023, past 4 days have been having pain going down left leg Normal [facility] ED PROV NOTEon 09-24-2023 ED PROV NOTE HNO ID: [id number] Author: REECE COOPER MD Service: Emergency Medicine Author Type: Physician Type: ED Provider Notes Filed: 09/24/2023 11:06 Note Text: ED Provider Note Patient Name: Roberto Osborn SR : 1960 SERVICE DATE: 09/24/23 History Patient presents with: Back Pain Patient with history of chronic back pain, status post back surgery x 3, most recently at L3, 4, 5, S1 fusion at [facility] on 09/09/2023, presents to the emergency ferment [...] plantarfle (more content not included)... Normal [facility] No Panel Informationon 07-20 IMPRESSION: No acute abnormality Revolving Inventory Clerk: ENOCH Transcribe Date/Time: Jul 20 2023 1:19P Dictated by : JIHAN MIX MD This examination was interpreted and the report reviewed and electronically signed by: JIHAN MIX MD on Jul 20 2023 1:20PM [facility] RADIOLOGY No Panel InformationOrdered By: Ccf Provider on 07-20-2023 [facility] XR Hip - left AP and [...] in left hip .LEFT HIP PAIN (accession [id number]), RIGHT KNEE PAIN (accession [id number]) TECHNIQUE: XR AP PELVIS, CROSSTABLE LATERAL LEFT [...] Small joint effusion. 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 [facility] Provider, Cchugo [facility] - 07/20/2023 * * *Final Report* * * DATE OF EXAM: Jul 18 2023 8:26AM ALFREDO 5279 - XR HIP 2V AP/ LAT LT / PROCEDURE REASON: M25.552-Pain in left hip * * * * Physician Interpretation * * * * PROCEDURE: Left hip and right knee INDICATION: Pain in left hip .LEFT HIP PAIN (accession [id number]), RIGHT KNEE PAIN (accession [id number]) TECHNIQUE: XR AP PELVIS, CROSSTABLE LATERAL LEFT [...] is evident. IMPRESSION IMPRESSION: No acute abnormality Revolving Inventory Clerk: ENOCH Transcribe Date/Time: Jul 20 2023 1:19P Dictated by : JIHAN MIX MD This examination was interpreted and the report reviewed and electronically signed by: JIHAN MIX MD on Jul 20 2023 1:20PM [facility] XR Knee AP and [...] in left hip .LEFT HIP PAIN (accession [id number]), RIGHT KNEE PAIN (accession [id number]) TECHNIQUE: XR AP PELVIS, CROSSTABLE LATERAL LEFT [...] Small joint effusion. 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 [facility] Provider, C[facility]o [facility] - 07/20/2023 * * *Final Report* * * DATE OF EXAM: Jul 18 2023 8:26AM ALFREDO 5209 - XR KNEE 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 RT / PROCEDURE REASON: M25.561-Right knee pain, unspecified chronicity * * * * Physician Interpretation * * * * PROCEDURE: Left hip and right knee INDICATION: Pain in left hip .LEFT HIP PAIN (accession [id number]), RIGHT KNEE PAIN (accession [id number]) TECHNIQUE: XR AP PELVIS, CROSSTABLE LATERAL LEFT [...] is evident. IMPRESSION IMPRESSION: No acute abnormality Revolving Inventory Clerk: PSCB Transcribe Date/Time: Jul 20 2023 1:19P Dictated by : JIHAN MIX MD This examination was interpreted and the report reviewed and electronically signed by: JIHAN MIX MD on Jul 20 2023 1:20PM [facility] CNOVon 07-18-2023 CNOV Office Visit (ORNA ) ROBERTO OSBORN SR ([id number]) 1960 M Date Time Provider Department 07/18/23 [...] in left hip .LEFT HIP PAIN (accession [id number]), RIGHT KNEE PAIN (accession [id number]) TECHNIQUE: XR AP PELVIS, CROSSTABLE LATERAL LEFT [...] is evident. Impression: IMPRESSION: No acute abnormality Revolving Inventory Clerk: [facility] Transcribe Date/Time: Jul 20 2023 1:19P Dictated [...] in left hip .LEFT HIP PAIN (accession [id number]), RIGHT KNEE PAIN (accession [id number]) TECHNIQUE: XR AP PELVIS, CROSSTABLE LATERAL LEFT [...] is evident. Impression: IMPRESSION: No acute abnormality Revolving Inventory Clerk: PSCB Transcribe Date/Time: Jul 20 2023 1:19P [...] MD Electronic (more content not included)... Normal [facility] No Panel Informationon 07-18 Radiology Study observation (narrative) [facility] XR HIP 2V AP/ LAT LTon [...] in left hip .LEFT HIP PAIN (accession [id number]), RIGHT KNEE PAIN (accession [id number]) TECHNIQUE: XR AP PELVIS, CROSSTABLE LATERAL LEFT [...] TKA is evident. IMPRESSION: No acute abnormality Revolving Inventory Clerk: PSCB Transcribe Date/Time: Jul 20 2023 1:19P Dictated by : JIHAN MIX MD This examination was interpreted and the report reviewed and electronically signed by: JIHAN MIX MD on Jul 20 2023 1:20PM EST [id number] [facility] XR KNEE 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 R [...] in left hip .LEFT HIP PAIN (accession [id number]), RIGHT KNEE PAIN (accession [id number]) TECHNIQUE: XR AP PELVIS, CROSSTABLE LATERAL LEFT [...] TKA is evident. IMPRESSION: No acute abnormality Revolving Inventory Clerk: PSCMayra Transcribe Date/Time: Jul 20 2023 1:19P Dictated by : JIHAN MIX MD This examination was interpreted and the report reviewed and electronically signed by: JIHAN MIX MD on Jul 20 2023 1:20PM EST [id number] [facility] ROBERTO OSBORN SR ([id number]) 1960 M Date Time Provider Department 06/16/23 [...] Encounter Status:Closed by EDA CASTELLANOS on 06/24/23 [facility] CNOVon 05-30-2023 CNOV Office Visit (ORMDNA ) ROBERTO OSBORN SR ([id number]) 1960 M Date Time Provider Department 05/30/23 [...] Chika Carpenter M.D. Department of Orthopaedic Surgery [facility] Allergies As of Date: 05/30/2023 Noted Allergy Reaction CODEINE 07/18/2021 2 - Rash MORPHINE 10/26/2020 4 - Hives Date Reviewed: 05/30/2023 Reviewed by: Chika Carpenter MD - Fully Assessed Reason for Visit: Follow Up [171] Cmt: Bone scan results Primary Visit Diagnosis:Pain due to internal orthopedic prosthetic devices, implants and grafts, initial encounter ([facility]) [T84.84XA] Order(s):meloxicam (MOBIC) 7.5 mg [...] included)... Normal [facility] BONE 3 PHASEon 05-23-2023 AR BONE 3 PHASE * * *Final Report* * * DATE OF EXAM: May 23 2023 1:10PM CARLEE 0009 - AR BONE 3 PHASE / PROCEDURE REASON: multiple diagnoses * * * * Physician Interpretation * * * * EXAM: THREE-PHASE BONE SCAN HISTORY: Pain due to internal orthopedic prosthetic devices, implants and grafts, initial encounter ([facility]) S/P total knee replacement using [...] Presumed postop changes in the right knee. Revolving Inventory Clerk: ENOCH Transcribe Date/Time: May 23 2023 1:29P Dictated by : CALI OBRIEN, This examination was interpreted and the report reviewed and electronically signed by: ALESHA DEE MD on May 23 2023 2:14PM EST [id number] [facility] No Panel Informationon 05-23 [facility] Anne 05-20-2023 KATIE Telephone (SANTIAGO) ROBERTO OSBORN SR ([id number]) 1960 M Date Time Provider Department 05/20/23 CHIKA CARPENTER During your visit today, we recorded the following information about you: Eda Castellanos 05/20/2023 10:13 AM Signed Please leave a voice mail at [phone] for spouse Lien for two appts for [...] Status:Closed by EDA CASTELLANOS on 05/21/23 Normal [facility] XR Knee AP and Lateral and M erchantson 05-19-2023 IMPRESSION: Al NASCIMENTO Revolving Inventory Clerk: ENOCH Transcribe Date/Time: May 19 2023 8:53A Dictated by : JIHAN MIX MD This examination was interpreted and the report reviewed and electronically signed by: JIHAN MIX MD on May 19 2023 8:54AM EST [facility] * * *Final Report* * * [...] No periprosthetic fracture or significant joint effusion. [facility] Provider, Sunny Jiang - 05/19/2023 * [...] significant joint effusion. IMPRESSION IMPRESSION: Stable TKA Revolving Inventory Clerk: PSCB Transcribe Date/Time: May 19 2023 8:53A Dictated by : JIHAN MIX MD This examination was interpreted and the report reviewed and electronically signed by: JIHAN MIX MD on May 19 2023 8:54AM EST [facility] XR Knee AP and Lateral and M erchantsOrdered By: Ccf Provider on 05-19-2023 [facility] CNOVon 05-16-2023 CNOV Office Visit (ORMDNA ) ROBERTO OSBORN ([id number]) 1960 M Date Time Provider Department 05/16/23 [...] possible loosening (more content not included)... Normal [facility] XR KNEE 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 L Ton 05-16-2023 [...] or significant joint effusion. IMPRESSION: Stable TKA Revolving Inventory Clerk: ENOCH Transcribe Date/Time: May 19 2023 8:53A Dictated by : JIHAN MIX MD This examination was interpreted and the report reviewed and electronically signed by: JIHAN MIX MD on May 19 2023 8:54AM EST [id number] [facility] XR Knee AP and Lateral and M erchantson 05-16-2023 Radiology Study observation (narrative) [facility] Anne 05-12-2023 CNPN Telephone (ORMDNA) ROBERTO OSBORN SR ([id number]) 1960 M Date Time Provider Department 05/12/23 CHIKA CARPENTER During your visit today, we recorded the following information about you: Eda Castellanos 05/12/2023 9:33 AM Signed Patient needs appt for left knee pain (old tka). He needs this Friday or next Friday if possible. Ok to offer Aliza if available. Please contact Lien (spouse) to schedule at her work [phone]. AramisClemente 05/12/2023 9:49 AM Signed Patient is [...] Status:Closed by CLEMENTE SELF on 05/12/23 Normal [facility] CREATINE KINASEon 04-24-2023 CK [Catalytic activity/Vol] 93 [...] Office Visit (SANTIAGO ) ROBERTO OSBORN SR ([id number]) 1960 M Date Time Provider Department 12/06/22 [...] for Encounter Date Provider Department Center 12/06/2022 [id number] CARPENTER [facility] Letter Text Encounter Status:Closed by CHIKA CARPENTER on 12/16/22 [facility] 11-19-2022 CNPN Telephone (ORQ) ROBERTO OSBORN ([id number]) 1960 Date Time Provider Department 11/19/22 CHIKA [...] that same letter to be faxed to [phone]. Thank you! Eda Dyllan [facility] 11/21/2022 9:55 AM Signed This was done on 11/20/22. Allergies As of Date: 11/19/2022 Noted Allergy Reaction CODEINE 07/18/2021 2 - Rash MORPHINE 10/26/2020 4 - Hives Date Reviewed: 10/27/2022 Reviewed by: Chika Carpenter MD - Fully Assessed Reason for Visit: Patient Question [0398] Prescriptions as of 11/21/2022 - acetaminophen (TYLENOL) [...] knee [M25.561, G89.29] 10/02/2022 Encounter Status:[facility] CNCOon 11-15-2022 CNCO Letter Text [facility] CNPNon 11-08-2022 CNPN Telephone (SANTIAGO) ROBERTO OSBORN SR ([id number]) 1960 M Date Time Provider Department 11/08/22 CHIKA CARPENTER During your visit today, we recorded the following information about you: Eda Mijares [facility] 11/08/2022 1:18 PM Signed Patient asking if he could have a return to work letter for light duty to begin on 11/18/22. If you agree, it would need to be faxed to [phone] ('s work), no cover sheet needed. Regla [...] Encounter Status:Closed by REGLA HIGGINS on 11/08/22 [facility] CNTHERAPYon 11-06-2022 CNTHERAPY OT/PT/Speech Visit (PTMDRG) ROBERTO OSBORN ([id number]) 1960 M Date Time Provider Department 11/06/22 8:00 AM TRE GOG Date Time Provider Department Center 11/06/2022 8:00 AM [id number], SCOTT PTMDRG [facility] Reason for Visit: Physical Therapy [...] as of 09/12/2022: no interactions 2. Normal [facility] CNTHERAPYon 10-30-2022 CNTHERAPY OT/PT/Speech Visit (PTMDRG) ROBERTO OSBORN ([id number]) 1960 M Date Time Provider Department 10/30/22 8:00 AM TRE GO PTMDRG Date Time Provider Department Center 10/30/2022 8:00 AM [id number], SCOTT PTMDRG [facility] Reason for Visit: PT Progress [...] of 09/12/2022: no interactions 09-12-22. [facility] CNTHERAPYon 10-28-2022 CNTHERAPY OT/PT/Speech Visit (PTMDRG) ROBERTO OSBORN SR ([id number]) 1960 M Date Time Provider Department 10/28/22 7:00 AM TOY COREAS PTMDRG Date Time Provider Department Center 10/28/2022 7:00 AM [id number], SUSAN PTMDRG [facility] Reason for Visit: Physical Therapy [...] Comments as of 09/12/2022: no interactions 09-12-22. [place] 10-25-2022 [facility] Office Visit (ORGARETH ) ROBERTO OSBORN SR ([id number]) 1960 M Date Time Provider Department 10/25/22 [...] Encounter Status:Closed by CHIKA CARPENTER on 10/27/22 [facility] CNTHERAPYon 10-24-2022 CNTHERAPY OT/PT/Speech Visit (PTMDRG) ROBERTO OSBORN ([id number]) 1960 M Date Time Provider Department 10/24/22 7:00 AM TRE OG PTMG Date Time Provider Department [place] 10/24/2022 7:00 AM [id number], SCOTT PTMDRG [facility] Reason for Visit: Physical Therapy [...] of 09/12/2022: no interactions 09-12-22. [facility] CNTHERAPYon 10-21-2022 CNTHERAPY OT/PT/Speech Visit (PTMDRG) ROBERTO OSBORN SR ([id number]) 1960 M Date Time Provider Department 10/21/22 7:45 AM TOY COREAS Date Time Provider Department Center 10/21/2022 7:45 AM [id number] COREAS [facility] Reason for Visit: Physical Therapy [...] of 09/12/2022: no interactions 2-2-23. [facility] CNTHERAPYon 10-16-2022 CNTHERAPY OT/PT/Speech Visit (PTMDRG) ROBERTO OSBORN ([id number]) 1960 M Date Time Provider Department 10/16/22 8:00 AM TRE GO PTMDRG Date Time Provider Department Center 10/16/2022 8:00 AM [id number], SCOTT PTMDRG [facility] Reason for [...] Comments as of 09/12/2022: no interactions 09-12-22. [facility] 10-15-2022 CNPN Telephone (SANTIAGO) LAWROBERTO Zonia SR ([id number]) 1960 M Date Time Provider Department 10/15/22 [...] Encounter Status:Closed by SG JUDD on 10/17/22 [facility] CNTHERAPYon 10-14-2022 CNTHERAPY OT/PT/Speech Visit (PTMDRG) ROBERTO OSBORN SR ([id number]) 1960 M Date Time Provider Department 10/14/22 7:00 AM TOY COREAS PTMDRG Date Time Provider Department Center 10/14/2022 7:00 AM [id number], SUSAN [facility] Reason for Visit: Physical Therapy [503] [...] as of 09/12/2022: no interactions 2-2-23. Normal [facility] CNTHERAPYon 10-10-2022 CNTHERAPY OT/PT/Speech Visit (PTMDRG) ROBERTO OSBORN ([id number]) 1960 M Date Time Provider Department 10/10/22 11:15 AM AVA KEITA PTMDRG Date Time Provider Department Center 10/10/2022 11:15 AM [id number] KEITA PTMDRG [facility] Reason for Visit: Physical Therapy [...] of 09/12/2022: no interactions -10-03. [facility] CNTHERAPYon 10-02-2022 CNTHERAPY OT/PT/Speech Visit (PTMDRG) ROBERTO OSBORN SR ([id number]) 1960 M Date Time Provider Department 10/02/22 8:45 AM TRE GO PTMDRG Date Time Provider Department Center 10/02/2022 8:45 AM [id number], SCOTT PTMDRG [facility] Reason for Visit: PT Eval [...] as of 09/12/2022: no interactions 2. Normal [facility] XR Knee AP and Lateral and M jean pierre 09-26-2022 IMPRESSION: Al NASCIMENTO Revolving Inventory Clerk: ENOCH Transcribe Date/Time: Sep 26 2022 1:59P Dictated by : JIHAN MIX MD This examination was interpreted and the report reviewed and electronically signed by: JIHAN MIX MD on Sep 26 2022 2:00PM EST [facility] * * *Final Report* * * [...] soft tissue emphysema. 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 [facility] Provider, Sunny Jiang - 09/26/2022 * [...] TKA is evident. IMPRESSION IMPRESSION: Stable TKA Revolving Inventory Clerk: PSCB Transcribe Date/Time: Sep 26 2022 1:59P Dictated by : JIHAN MIX MD This examination was interpreted and the report reviewed and electronically signed by: JIHAN MIX MD on Sep 26 2022 2:00PM EST [facility] XR Knee AP and Lateral and M erchantsOrdered By: Ccf Provider on 09-26-2022 [facility] CNOVon 09-25-2022 CNOV Office Visit (SANTIAGO ) ROBERTO ([id number]) 1960 M Date Time Provider Department 09/25/22 [...] arthroplasty, right [Z96.651] Order(s):CONSULT TO PHYSICAL THERAPY [9009] Order #: [id number]: 1 FUTURE Prescriptions as of 09/25/2022 - [...] Encounter Status:Closed by MATTHIEU ESPARZA on 09/25/22 [facility] XR KNEE 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 R Ton [...] Left TKA is evident. IMPRESSION: Stable TKA Revolving Inventory Clerk: PSCB Transcribe Date/Time: Sep 26 2022 1:59P Dictated by : JIHAN MIX MD This examination was interpreted and the report reviewed and electronically signed by: JIHAN MIX MD on Sep 26 2022 2:00PM EST [id number] [facility] XR Knee AP and Lateral and M erchantson 09-25-2022 Radiology Study observation (narrative) [facility] Anne 09-14-2022 CNPN Telephone (HCSIND) ROBERTO OSBORN SR ([id number]) 1960 M Date Time Provider Department 09/14/22 [...] Encounter Status:Closed by TRUPTI BAR on 09/14/22 [facility] 09-12-2022 CNPN Telephone (ME2E) ROBERTO OSBORN SR ([id number]) 1960 M Date Time Provider Department 09/12/22 CHIAK CARPENTER OR2E During your visit today, we recorded the following information about you: FILIBERTO Villalobos 09/12/2022 10:31 AM Addendum Kirill PT at [facility]. Pic of drainage uploaded in [employer]. Per Manjeet GARCIA, remove silverlon and use [...] by RONY DOYLE on 09/12/22 [facility] Basic metabolic 2000 panelon 09-11-2022 Anion gap [Moles/Vol] 9 mmol/L Normal 9-18 [facility] Comment on above: Order Comment: Speci men Type: BLOOD SPECIMENOrdering Facility: [facility] Address: [address] [place] [address] Performed By: #### 2 4321-2 ####BOONE LABORATORYCLIA [id number] [place] [address] [place] Calcium [Mass/Vol] 8.8 mg/dL Normal 8.5-10.2 [facility] Comment on above: Order Comment: Speci men Type: BLOOD SPECIMENOrdering Facility: [facility] Address: [address] [place] [address] Performed By: #### 2 4321-2 ####BOONE LABORATORYCLIA [id number] [place] [address] [place] Chloride [Moles/Vol] 103 mmol/L Normal 97-105 [facility] Comment on above: Order Comment: Speci men Type: BLOOD SPECIMENOrdering Facility: [facility] Address: [address] [place] [address] Performed By: #### 2 4321-2 ####BOONE LABORATORYCLIA [id number] [place] [address] [place] CO2 [Moles/Vol] 27 mmol/L Normal 22-30 [facility] Comment on above: Order Comment: Speci men Type: BLOOD SPECIMENOrdering Facility: [facility] Address: [address] [place] [address] Performed By: #### 2 4321-2 ####BOONE LABORATORYCLIA [id number] [place] [address] [place] Creatinine [Mass/Vol] 0.54 mg/dL Low 0.73-1.22 [facility] Comment on above: Order Comment: Speci men Type: BLOOD SPECIMENOrdering Facility: [facility] Address: [address] [place] [address] Performed By: #### 2 4321-2 ####BOONE LABORATORYCLIA [id number] [place] [address] [place] ESTIMATED GLOMERULAR FILTRATION RATE 112 mL/min/1.73m??? Normal >=60 [facility] Comment on above: Order Comment: Vera grant Type: BLOOD SPECIMENOrdering Facility: [facility] Address: [address] [id number] Result Comment: Snehal mated Glomerular Filtration Rate [...] Performed By: #### 2 4321-2 ####BOONE LABORATORYCLIA [id number] [place] [address] [place] Glucose [Mass/Vol] 116 mg/dL High 74-99 [facility] Comment on above: Order Comment: Vera grant Type: BLOOD SPECIMENOrdering Facility: [facility] Address: [address] [address] Result Comment: The [place] Diabetes Association (ADA) provides guidance for cutoff [...] Standards of Medical Care in Diabetes 2016, [place] [employer]. Diabetes Care. 2016.39(Suppl 1). Performed By: #### 2 4321-2 ####[facility] LABORATORYCLIA [id number] [place] [id number] [place] Potassium [Moles/Vol] 3.7 mmol/L Normal 3.7-5.1 [facility] Comment on above: Order Comment: Vera grant Type: BLOOD SPECIMENOrdering Facility: [facility] Address: [address] Performed By: #### 2 4321-2 ####BOONE LABORATORYCLIA [id number] [address] [place] [facility] Sodium [Moles/Vol] 139 mmol/L Normal 136-144 [facility] Comment on above: Order Comment: Speci men Type: BLOOD SPECIMENOrdering Facility: [facility] Address: [address] [place] [address] Performed By: #### 2 4321-2 ####BOONE LABORATORYCLIA [id number] [address] Urea nitrogen [Mass/Vol] 6 mg/dL Low 9-24 [facility] Comment on above: Order Comment: Speci men Type: BLOOD SPECIMENOrdering Facility: [facility] Address: [address] [place] [address] Performed By: #### 2 4321-2 ####BOONE LABORATORYCLIA [id number] [address] OF [facility] CASE MANAGEMon 09-11-2022 CASE MANAGEM HNO ID: [id number] Author: Taylor Boyce RN Service: ? Author Type: Registered Nurse Type: Care Mgt Progress Note Filed: 09/11/2022 2:24 PM Note Text: CARE MANAGEMENT DISCHARGE NOTE SERVICE DATE: 09/11/2022 SERVICE TIME: 2:23 PM LOS: 0 days Admission Date: 09/10/2022 DISCHARGE ARRANGEMENT (list agency and phone number) Discharge Arrangement: Home with Home Health Provider Name: [facility] CAREGIVER ASSESSMENT: Caregiver is ready, willing and able to meet the patient's needs as recommended by the inter-professional team:: Yes Patient's transition needs and plan for meeting these needs: Home PT HANDOFF COMMUNICATION: Handoff to: Primary Care Physician Primary Care Physician Name/Phone: Dr. Timothy Correa- [phone] TRANSPORTATION ARRANGEMENTS: Transportation Arrangements: Car- to transport Discharge Information Row Name Admission (Current) from 09/10/[address] Home Health Care Agency [facility] Start of Care -- Within 24- 48 hours Needs Prior to Discharge: Ready for Discharge Discharge order written for today. [facility] will be seeing the patient for Home PT with a start of care within 24- 48 hours. Notified [facility] of the patients discharge home today. SIGNATURE: Taylor Boyce RN PATIENT NAME: Roberto Osborn SR DATE: September 11, 2022 TIME: 2:23 PM PAGER/CONTACT #: [phone] [facility] CASE MANAGEM HNO ID: [id number] Author: Taylor Boyce RN Service: ? Author Type: Registered Nurse Type: Care Mgt Progress Note Filed: 09/11/2022 11:11 AM Note Text: CARE MANAGEMENT PROGRESS NOTE SERVICE DATE: 09/11/2022 SERVICE TIME: 11:10 AM LOS: 0 days Needs Prior to Discharge: To Be Determined [facility] able to accept. CM department will continue to follow for DC needs. SIGNATURE: Taylor Boyce RN PATIENT NAME: Roberto Osborn SR DATE: September 11, 2022 TIME: 11:10 AM PAGER/CONTACT #: [phone] [facility] CASE MGT INIT ASSESon 2022 CASE MGT INIT [facility] HNO ID: [id number] Author: Taylor Boyce RN Service: ? Author Type: Registered Nurse Type: Care Mgt Initial Assessment Filed: 09/11/2022 10:22 AM Note Text: CARE MANAGEMENT: ASSESSMENT AND DISCHARGE PLAN SERVICE DATE: September 11, 2022 SERVICE TIME: 10:21 AM PRIMARY CARE PHYSICIAN: Timothy Correa MD Primary Contact: Extended Emergency Contact Information Primary Emergency Contact: Lien Osborn Address: [address] [place] [id number] Relation: Spouse ADMISSION STATUS: Extended Recovery Insurance Provider: BLUE CARD PPO OOS NEEDS PRIOR TO DISCHARGE Needs Prior to Discharge: To Be Determined POTENTIAL TRANSITION PLANS To Be Determined Based on clinical judgement, Care Management will address the following needs: Functional Patient's perception of need for this admission: Elective surgery ADVANCE DIRECTIVES Current Advance Directive: None Assistant Principal Attempted to Assist with AD Completion: Yes [...] discharge within 30 days: No 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 FREEDOM OF CHOICE EXPLAINED: Elmer of Choice Given: Yes Level of Care [...] PT recommendations with the patient, referral to [facility]. CM department will continue to follow for DC needs. SIGNATURE: Taylor (more content not included)... Normal [facility] CBC panel Auto (Bld)on 09-11 Erythrocyte distribution width (RBC) [Ratio] 13.9 % Normal 11.5-15.0 [facility] Comment on above: Order Comment: Vera grant Type: BLOOD SPECIMENOrdering Facility: [facility] Address: [address] [place] [address] Performed By: #### 5 8410-2 ####S[facility]LD[facility] LABORATORYCLIA [id number] [place] [address] [place] Hematocrit (Bld) [Volume fraction] 35.7 % Low 39.0-51.0 [facility] Comment on above: Order Comment: Vera grant Type: BLOOD SPECIMENOrdering Facility: [facility] Address: [address] [address] Performed By: #### 5 8410-2 ####SHELDON LABORATORYCLIA [id number] [place] [address] [place] Hemoglobin (Bld) [Mass/Vol] 12.0 g/dL Low 13.0-17.0 [facility] Comment on above: Order Comment: Speci men Type: BLOOD SPECIMENOrdering Facility: [facility] Address: [address] [place] [address] Performed By: #### 5 8410-2 ####BOONE LABORATORYCLIA [id number] [address] MCH (RBC) [Entitic mass] 29.7 pg Normal 26.0-34.0 [facility] Comment on above: Order Comment: Speci men Type: BLOOD SPECIMENOrdering Facility: [facility] Address: [address] [place] [address] Performed By: #### 5 8410-2 ####BOONE LABORATORYCLIA [id number] [address] MCHC (RBC) [Mass/Vol] 33.6 g/dL Normal 30.5-36.0 [facility] Comment on above: Order Comment: Speci men Type: BLOOD SPECIMENOrdering Facility: [facility] Address: [address] [place] [address] Performed By: #### 5 8410-2 ####BOONE LABORATORYCLIA [id number] [address] MCV (RBC) [Entitic vol] 88.4 fL Normal 80.0-100.0 [facility] Comment on above: Order Comment: Speci men Type: BLOOD SPECIMENOrdering Facility: [facility] Address: [address] [place] [address] Performed By: #### 5 8410-2 ####BOONE LABORATORYCLIA [id number] [address] Nucleated RBC (Bld) [#/Vol] 10*3/uL Normal <0.01 [facility] Comment on above: Order Comment: Speci men Type: BLOOD SPECIMENOrdering Facility: [facility] Address: [address] [place] [address] Performed By: #### 5 8410-2 ####BOONE LABORATORYCLIA [id number] [place] [address] [place] Platelet mean volume (Bld) [Entitic vol] 9.3 fL Normal 9.0-12.7 [facility] Comment on above: Order Comment: Speci men Type: BLOOD SPECIMENOrdering Facility: [facility] Address: [address] [place] [address] Performed By: #### 5 8410-2 ####S[facility]LD[facility] LABORATORYCLIA [id number] [address] [place] Platelets (Bld) [#/Vol] 287 10*3/uL Normal 150-400 [facility] Comment on above: Order Comment: Speci men Type: BLOOD SPECIMENOrdering Facility: [facility] Address: [address] [place] [address] Performed By: #### 5 8410-2 ####S[facility]LD[facility] LABORATORYCLIA [id number] [address] [place] RBC (Bld) [#/Vol] 4.04 10*6/uL Low 4.20-6.00 [facility] Comment on above: Order Comment: Speci men Type: BLOOD SPECIMENOrdering Facility: [facility] Address: [address] [place] [address] Performed By: #### 5 8410-2 ####S[facility]LD[facility] LABORATORYCLIA [id number] [address] [place] WBC (Bld) [#/Vol] 11.09 10*3/uL High 3.70-11.00 [facility] Comment on above: Order Comment: Speci men Type: BLOOD SPECIMENOrdering Facility: [facility] Address: [address] [place] [address] Performed By: #### 5 8410-2 ####[facility] LABORATORYCLIA [id number] [address] [place] CNCOon 09-11-2022 CNCO Letter Text Normal [facility] CNDSon 09-11-2022 CNDS HNO ID: [id number] Author: Matthieu Esparza PA-C Service: Orthopaedic Surgery Author Type: Physician Grants Director Type: Discharge Summary Filed: 09/11/2022 12:42 PM [...] instructions 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 If you are not sure about something, [...] or flu-like symptoms (more content not included)... [facility] 09-11-2022 [facility] Telephone (HCSIND) ROBERTO OSBORN SR ([id number]) 1960 M Date Time Provider Department 09/11[facility]22 [facility] visit today, we recorded the following information about you: Sanaz Dean [facility] 09/11/2022 11:22 AM Signed Welcome Home Call: a. Date and Time: 11:21 AM 09/11/2022 b. Contact name/relationship: Patient, Roberto c. Have you been active with any Home Care company in the last 60 days(such as help with bathing, filling medications, checking your blood pressure) ? No. d. Was patient given Flu shot this Season (After Apr,): Yes: Location: , Date received: 08/10/22 e. [facility] will be providing your care, are you agreeable to starting these services? YES (yes or no) f. Do you have any upcoming appointments in the next few days, or restrictions to your schedule? NO g. Caregiver: Patient is able to manage care independently h. Confirmed Visited Location and preferred #: [phone] [place] [address] Please keep our your medications both over the counter and prescribed out for the home care to review, your hospital discharge instructions and write down any questions you might have. In order to maintain a safe environment for our caregivers, [facility] requires any animals or weapons present in the home be located in a secured location. Our clinicians will call you the night before or the morning of the appointment. Their # may come up restricted but they'll leave a VM for you. In case you have any questions or concerns in the meantime, our # is [phone], option 5 Thank you for your time [...] Pure hypercholesterolemi (more content not included)... Normal [facility] CONSULT PROGon 09-11-2022 CONSULT PROG HNO ID: [id number] Author: Parris Welsh MD Service: General Internal [...] 11, 2022 TIME: 8:57 AM PAGER: Normal [facility] THERAPY NTon 09-11-2022 THERAPY NT HNO ID: [id number] Author: Vamshi Castellon OT/L Service: ? 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 [facility] THERAPY NT HNO ID: [id number] Author: Lynette Persaud PT Service: Physical Therapy Author Type: Physical Therapist Type: Therapy (PT/OT/Speech/Resp) Filed: 09/11/2022 10:14 AM Note Text: Physical Therapy Treatment SERVICE DATE: 09/11/2022 SERVICE TIME: 834 to 924 ROOM: [id number] Recommended Discharge Disposition: Home PT Recommended Discharge [...] terminal stanc (more content not included)... Normal [facility] ALLIED HEALTHon 09-10-2022 ALLIED HEALTH HNO ID: [id number] Author: Chaplain Earle Service: Spiritual Care Author Type: Public Policy Associate Type: Allied Health Filed: 09/10/2022 8:18 PM Note Text: SPIRITUAL CARE PROGRESS NOTE SERVICE DATE: 09/10/2022 SERVICE TIME: 6:00-6:01pm This sewage screen operator stopped by the patient's room to provide spiritual care, but the patient did not desire it at the time. To contact the Spiritual Care Department: Please call [phone]. SIGNATURE: Chaplain Earle PATIENT NAME: Roberto Osborn SR DATE: September 10, 2022 TIME: 8:17 PM PAGER/CONTACT #: [phone] [facility] ALLIED HEALTH HNO ID: [id number] Author: GERMAINE Sparrow Service: Radiology Author Type: [...] September 10, 2022 10:39 AM [facility] ANES POSTPROC EVALon 023 ANES POSTPROC EVAL HNO ID: [id number] Author: Adryan Payton MD Service: Anesthesiology Author Type: Anesthesiologist Type: Anesthesia Postprocedure Evaluation Filed: 09/10/2022 12:48 PM Note Text: POST ANESTHESIA EVALUATION NOTE : 1960 Procedure Summary Date: 09/10/22 Room / Location: OR OR / OR OR Anesthesia Start: 740 Anesthesia Stop: 1013 [...] September 10, 2022 TIME: 12:48 PM CSN: [id number] [facility] ANES PRE-OPon 09-10-2022 ANES PRE-OP HNO ID: [id number] Author: Adryan Payton MD Service: Anesthesiology Author Type: Anesthesiologist Type: Anesthesia Preprocedure Evaluation Filed: 09/10/2022 7:06 AM Note Text: ANESTHESIOLOGY DAY OF SURGERY NOTE : 1960 Procedure Information Date/Time: 09/10/22 0745 Procedure: ROBOTIC ASSISTED TOTAL KNEE ARTHROPLASTY (Right: Knee) Location: OR OR / OR OR Surgeons: Chika Carpenter MD Estimated body [...] September 10, 2022 TIME: 7:04 AM CSN: [id number] [facility] BRIEF OP NOTon 09-10-2022 BRIEF OP NOT HNO ID: [id number] Author: Chika Carpenter MD Service: Orthopaedic Surgery Author Type: Physician Type: Brief Op Note Filed: 09/11/2022 7:52 AM Note Text: TOTAL KNEE ARTHROPLASTY BRIEF OPERATIVE / PROCEDURE NOTE LOG ID: [id number] Surgery/Procedure Date: 09/10/2022 Incision/Procedure Start Time: 8:19 AM Incision Close/Procedure End Time: 10:05 AM Surgeon(s)/Proceduralis t(s) and Grants Director(s): Surgeon(s) and Role: * Chika Carpenter MD - Primary Nurse Practitioner: Indio De Oliveira APRN.TIMING INSPECTOR Physician Grants Director: Anahi Seay PA-C; Regla Higgins PA-C Procedure(s): [...] Implant Name Type Inv. Item Serial No. Flat Sorting Machine Clerk Lot No. LRB No. Used Action COMPONENT TRITANIUM 35MM METAL 10MM PATELLAR ASYMMETRIC KNEE - [id number] Joint - Knee COMPONENT TRITANIUM 35MM METAL 10MM PATELLAR ASYMMETRIC KNEE [facility] [id number] Right 1 Implanted INSERT TRIATHLON 6 9MM TIBIAL BEARING CONDYLAR STABILIZE STERILE KNEE - [id number] Joint - Knee INSERT TRIATHLON 6 9MM TIBIAL BEARING CONDYLAR STABILIZE STERILE KNEE [facility] [id number] Right 1 Implanted BASEPLATE TRIATHLON 6 TRITANIUM [id number] TIBIAL 4 CRUCIFORM PEG KEEL KNEE - [id number] Joint - Knee BASEPLATE TRIATHLON 6 TRITANIUM [id number] TIBIAL 4 CRUCIFORM PEG KEEL KNEE [facility] [id number] Right 1 Implanted COMPONENT TRIATHLON 5 PA FEMORAL CRUCIATE RETAIN BEAD KNEE RIGHT - [id number] Joint - Knee COMPONENT TRIATHLON 5 PA FEMORAL CRUCIATE RETAIN BEAD KNEE RIGHT [facility] [id number] Right 1 Implanted Bearing Surface: Fixed Fixation: Cementless SSI Risk Factors: DM Constraint: Cruciate Retaining Other: None Pre-Op/Pre-Procedure Diagnosis: Primary osteoarthritis of right knee [M17.11] Post-Op/Post-Procedure Diagnosis: Primary osteoarthritis of right knee [M17.11] Weight Bearing Status: Weight Bearing As Tolerated SIGNATURE: Chika Carpenter MD PATIENT NAME: Roberto Osborn DATE: September 10, 2022 TIME: 10:01 AM [facility] CONSULTon 09-10-2022 CONSULT HNO ID: [id number] Author: Parris Welsh MD Service: General Internal [...] leg swel (more content not included)... Normal [facility] CT KNEE WO IVCON RTon 2022 CT KNEE WO IVCON RT * * *Final Report* * * DATE OF EXAM: Sep 10 2022 6:57AM [facility] [place] KNEE WO IVCON RT / PROCEDURE REASON: M17.11-Primary osteoarthritis of right knee * * * * Physician Interpretation * * * * EXAMINATION: CT KNEE WO IVCON RT CLINICAL HISTORY: 62 years old Male with Primary osteoarthritis of right knee. WILMER Robotic total knee replacement [facility] CT TECHNIQUE: CT RIGHT knee without contrast [facility] protocol, knee 1 mm axial slices, [...] images for the purposes of presurgical planning. Revolving Inventory Clerk: ENOCH Transcribe Date/Time: Sep 11 2022 6:28P Dictated by : GERI FABIAN DO This examination was interpreted and the report reviewed and electronically signed by: GERI FABIAN DO on Sep 11 2022 6:35PM EST [id number] Normal [facility] Hematocrit Auto (Bld) [Volum e fraction]on 09-10-2022 Hematocrit (Bld) [Volume fraction] 36.0 % Low 39.0-51.0 [facility] Comment on above: Order Comment: Specelena grant Type: BLOOD SPECIMENOrdering Facility: [facility] Address: [address] [place], [place] [address] Performed By: #### 4 544-3, 718-7 ####S[facility]LDON LABORATORYCLIA [id number] [place] [id number] [facility] [place] Hgb Bld-mCncon 09-10-2022 Hemoglobin (Bld) [Mass/Vol] 12.1 g/dL Low 13.0-17.0 [facility] Comment on above: Order Comment: Specelena grant Type: BLOOD SPECIMENOrdering Facility: [facility] Address: [address] [place] [address] Performed By: #### 4 544-3, 718-7 ####[facility] LABORATORYCLIA [id number] [place] [id number] [place] NURSING PROGon 09-10-2022 NURSING PROG HNO ID: [id number] Author: Lorie Bolden RN Service: Nursing Author [...] completion of procedure. Report to Leonel Cary [facility] OPERATIVE NOon 09-10-2022 OPERATIVE NO HNO ID: [id number] Author: Chika Carpenter MD Service: Orthopaedic Surgery Author Type: Physician Type: Operative Report Filed: 09/11/2022 7:52 AM Note Text: [facility] OPERATIVE REPORT PATIENT NAME: Roberto Osborn SR CSN: [id number] LOG ID: [id number] Surgery Date: 09/10/2022 Surgeon(s) and Grants Director(s): Surgeon(s) and Role: * Chika Carpenter MD - Primary- surgeon * Regla GARCIA -Leather Sprayer No qualified orthopedic resident available. The PA [...] the device, and deep closure. The PA /INFORMATION COORDINATOR performed the closure of the subcutaneous tissue [...] Implant Name Type Inv. Item Serial No. Flat Sorting Machine Clerk Lot No. LRB No. Used Action COMPONENT TRITANIUM 35MM METAL 10MM PATELLAR ASYMMETRIC KNEE - [id number] Joint - Knee COMPONENT TRITANIUM 35MM METAL 10MM PATELLAR ASYMMETRIC KNEE [facility] [id number] Right 1 Implanted INSERT TRIATHLON 6 9MM TIBIAL BEARING CONDYLAR STABILIZE STERILE KNEE - [id number] Joint - Knee INSERT TRIATHLON 6 9MM TIBIAL BEARING CONDYLAR STABILIZE STERILE KNEE [facility] [id number] Right 1 Implanted BASEPLATE TRIATHLON 6 TRITANIUM [id number] TIBIAL 4 CRUCIFORM PEG KEEL KNEE - [id number] Joint - Knee BASEPLATE TRIATHLON 6 TRITANIUM [id number] TIBIAL 4 CRUCIFORM PEG KEEL KNEE [facility] [id number] Right 1 Implanted COMPONENT TRIATHLON 5 PA FEMORAL CRUCIATE RETAIN BEAD KNEE RIGHT - [id number] Joint - Knee COMPONENT TRIATHLON 5 PA FEMORAL CRUCIATE RETAIN BEAD KNEE RIGHT [facility] [id number] Right 1 Implanted OPERATIVE [...] p (more content not included)... [facility] SURGICAL PATHOLOGYon 023 CASE REPORT [facility] Comment on above: Order Comment: Speci men Type: TISSUE SPECIMENOrdering Facility: [facility] Address: [address] [place], [place] [id number] Result Comment: Surg [facility] Pathology Report Case: [id number] Authorizing Provider: Chika Carpenter MD Collected: 09/10/2022 08:32 AM Ordering Location: [facility] Surgery Received: 09/10/2022 11:44 AM Pathologist: Timothy Dietz MD Specimen: KNEE ARTHROPLASTY RIGHT Performed By: #### S ####[facility] LABCLIA [id number] [address] CLINICAL HISTORY [facility] Comment on above: Order Comment: Emilyi men Type: TISSUE SPECIMENOrdering Facility: [facility] Address: [address] [place], [place] [address] Result Comment: Pre- op diagnosis: Primary osteoarthritis of right knee [M17.11] Performed By: #### S ####[facility] LABCLIA [id number] [address] FINAL DIAGNOSIS [facility] Comment on above: Order Comment: Speci men Type: TISSUE SPECIMENOrdering Facility: [facility] Address: [address] [place], [place] [address] Result Comment: Righ t knee, arthroplasty: - Degenerative joint disease. Performed By: #### S ####[facility] LABCLIA [id number] [address] [place] FINAL PERFORMING LAB [facility] Comment on above: Order Comment: Speci men Type: TISSUE SPECIMENOrdering Facility: [facility] Address: [address] [place] [address] Result Comment: Diag nostic interpretation performed at [place] [address] CLIA# [id number] [employer] Baseball Coach: Oscar Goodson M.D. Performed By: #### S ####[facility] LABIA [id number] [address] OF [facility] GROSS DESCRIPTION Normal [facility] Comment on above: Order Comment: Speci men Type: TISSUE SPECIMENOrdering Facility: [facility] Address: [address] [place] [address] Result Comment: A. K NEE ARTHROPLASTY RIGHT Received in formalin, labeled as right knee arthroplasty are multiple segments of bone that aggregate to approximately 13.0 x 10.4 x 2.6 cm. One portion is recognizable as the tibial plateau and demonstrates minimal eburnation and moderate cartilage roughening. Separate fragments consistent with femoral condyles also show evidence of cartilage eburnation and roughening. Box Worker sections are submitted as follows: A1 2 sections of condyles following decalcification A2 2 sections of tibial plateau following decalcification CG/MLG September 10, 2022 3:13 PM Gross examination performed at [facility], [address] [place] [address] Performed By: #### S ####[facility] LABIA [id number] [address] [place] THERAPY NTon 09-10-2022 THERAPY NT HNO ID: [id number] Author: Lynette Persaud, LORY Service: Physical Therapy Author Type: Physical Therapist Type: Therapy (PT/OT/Speech/Resp) Filed: 09/10/2022 4:21 PM Note Text: Physical Therapy Evaluation SERVICE DATE: 09/10/2022 SERVICE TIME: 1525 to 1603 ROOM: [id number] Recommended Discharge Disposition: Home PT Recommended Discharge [...] s (more content not included)... [facility] XR KNEE 2V AP/LAT RTon [...] the joint placement without evidence of complication Revolving Inventory Clerk: ENOCH Transcribe Date/Time: Sep 10 2022 12:40P Dictated by : TRAY BARKER MD This examination was interpreted and the report reviewed and electronically signed by: TRAY BARKER MD on Sep 10 2022 12:42PM EST [id number] [facility] CNPN Telephone ([facility] [place]) LAWROBERTO A ([id number]) 1960 M Date Time Provider Department 09/09/22 CHIKA CARPENTER During your visit today, we recorded the following information about you: Eda [facility] 09/09/2022 1:25 PM Signed Patient had motion [...] suggestions on what to do? Eda [facility] 09/09/2022 2:48 PM Signed The wilmer rep [...] knee [M17.11] Order(s):CT KNEE WO IVCON RT [[id number]] Order #: [id number] FUTURE CT KNEE WO IVCON RT [[id number]] Order #: [id number]. #:[id number] Prescriptions as of 02/12/2023 - acetaminophen (TYLENOL) [...] Status:Closed by EDA CASTELLANOS on 02/12/[address] [facility] [address] KNEE WO IVCON RTon 2022 CT KNEE WO IVCON RT * * *Final Report* * * DATE OF EXAM: Sep 07 2022 8:29AM [facility] [place] KNEE WO IVCON RT / PROCEDURE REASON: multiple diagnoses * * * * Physician Interpretation * * * * EXAM: CT KNEE WO IVCON RT HISTORY: Primary osteoarthritis of right knee Preop testing TECHNIQUE: CT right knee without contrast ([facility] CT protocol) CT Radiation dose: Integrated Dose-length product (DLP) for this visit = 859 mGy*cm. CT Dose Reduction Employed: Automated exposure control(AEC) and iterative recon COMPARISON: FINDINGS: Osteoarthritis, most severe in the medial joint compartment. Joint effusion. No acute abnormality at the hip and ankle. There are bilateral fat-containing inguinal hernias. . IMPRESSION: Right knee osteoarthritis, preoperative [facility] CT protocol for robotic assisted total joint replacement. Revolving Inventory Clerk[facility] Transcribe Date/Time: Sep 08 2022 12:39P Dictated by : JIHAN MIX MD This examination was interpreted and the report reviewed and electronically signed by: JIHAN MIX MD on Sep 08 2022 12:41PM EST [id number] Normal [facility] SARS-CoV-2 RNA Resp Ql MALACHI+p robeon 09-07-2022 SARS-CoV-2 (COVID-19) RNA MALACHI+probe Ql (Resp) COVID 19 RESULT: SARS-CoV-2 (Agent of COVID-19) Not Detected by RT-PCR or equivalent method. This test was developed and its performance characteristics determined by [facility]'s Regla Cheng [facility] Pathology and Laboratory Medicine [place]. This test has been authorized by FDA under an Emergency Use Authorization (EUA). This test has been validated in accordance with the FDA's Guidance Document Policy for Diagnostics Testing in Laboratories Certified to Perform High Complexity Testing under CLIA prior to Emergency use Authorization for Coronavirus Disease 2019 during the Public Health Emergency issued on October 09, 2019. Test performed by [facility], [facility] Pathology and Laboratory Medicine [place], [facility] [place] [address]. Normal [facility] Comment on above: Performed By: #### 9 4500-6 ####[facility] LABCLIA [id number] [place] [address] [place] SELF CHECK COVIDon 3 SARS-CoV-2 (COVID-19) RNA MALACHI+probe Ql (Resp) SARS-CoV-2 (Agent of COVID-19) Not Detected by RT-PCR or equivalent method. 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 #:[id number] Prescriptions as of 02/07/2023 - acetaminophen (TYLENOL) [...] by EDA CASTELLANOS on 02/07/23 Luis Daniel [facility] 08-20-2022 KATIE Telephone (ME2E) ROBERTO OSBORN SR ([id number]) 1960 M Date Time Provider Department 08/20/22 CHIKA CARPENTER During your visit today, we recorded the following information about you: FILIBERTO Villalobos 08/20/2022 4:02 PM Signed TOTAL JOINT COMPLETE CARE PROGRAM PRE-OPERATIVE TEACHING Service Date: 08/20/2022 Service Time: 4:00 PM Date of : 1960 Gender: male Date of Surgery: 09/10/22 Procedure: Right Total Knee Replacement Complete Care Program was discussed with the patient: Bulk Picker 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 SIGNATURE: FILIBERTO Villalobos PATIENT NAME: Roberto Osborn [...] Status:Closed by RONY DOYLE on 08/20/22 Normal [facility] Basic metabolic 2000 panelon 08-16-2022 Anion gap [Moles/Vol] 11 mmol/L Normal 9-18 [facility] Comment on above: Order Comment: Speci men Type: BLOOD SPECIMENOrdering Facility: [facility] Address: [address] [place] [address] Performed By: #### 2 276-4, 60137-2, 33237-4 ####[facility] LABORATORYCLIA [id number] [place] [address] [place] Calcium [Mass/Vol] 9.2 mg/dL Normal 8.5-10.2 [facility] Comment on above: Order Comment: Speci men Type: BLOOD SPECIMENOrdering Facility: [facility] Address: [place] [address] Performed By: #### 2 276-4, 39542-4, 22662-8 ####[facility] LABORATORYCLIA [id number] [address] OF [facility] Chloride [Moles/Vol] 101 mmol/L Normal 97-105 [facility] Comment on above: Order Comment: Speci men Type: BLOOD SPECIMENOrdering Facility: [facility] Address: [address] [place] [address] Performed By: #### 2 276-4, 16820-5, 60109-6 ####[facility] LABORATORYCLIA [id number] [place] [address] [place] CO2 [Moles/Vol] 25 mmol/L Normal 22-30 [facility] Comment on above: Order Comment: Speci men Type: BLOOD SPECIMENOrdering Facility: [facility] Address: [address] [place] [address] Performed By: #### 2 276-4, 54471-3, 63697-2 ####[facility] LABORATORYCLIA [id number] [address] STATES OF [facility] Creatinine [Mass/Vol] 0.56 mg/dL Low 0.73-1.22 [facility] Comment on above: Order Comment: Speci men Type: BLOOD SPECIMENOrdering Facility: [facility] Address: [address] [place] [address] Performed By: #### 2 276-4, 68885-1, 85432-1 ####[facility] LABORATORYCLIA [id number] [address] OF [facility] ESTIMATED GLOMERULAR FILTRATION RATE 111 mL/min/1.73m??? Normal >=60 [facility] Comment on above: Order Comment: Speci men Type: BLOOD SPECIMENOrdering Facility: [facility] Address: [address] [place] [address] Result Comment: Snehal mated Glomerular Filtration Rate [...] actual GFR. Performed By: #### 2 276-4, 42144-9, 31779-7 ####S[facility]LD[facility] LABORATORYCLIA [id number] [place] [address] [place] Glucose [Mass/Vol] 140 mg/dL High 74-99 [facility] Comment on above: Order Comment: Vera grant Type: BLOOD SPECIMENOrdering Facility: [facility] Address: [address] [place], [place] [address] Result Comment: The [place] Diabetes Association (ADA) provides guidance for cutoff [...] Standards of Medical Care in Diabetes 2016, [place] [employer] Association. Diabetes Care. 2016.39(Suppl 1). Performed By: #### 2 276-4, 37905-8, 44829-0 ####S[facility]LD[facility] LABORATORYCLIA [id number] [place] [id number] [place] Potassium [Moles/Vol] 4.3 mmol/L Normal 3.7-5.1 [facility] Comment on above: Order Comment: [facility] Type: BLOOD SPECIMENOrdering Facility: [facility] Address: [address] [place] [address] Performed By: #### 2 276-4, 45290-5, 70405-0 ####S[facility]LD[facility] LABORATORYCLIA [id number] [place] [address] [place] Sodium [Moles/Vol] 137 mmol/L Normal 136-144 [facility] Comment on above: Order Comment: Speci men Type: BLOOD SPECIMENOrdering Facility: [facility] Address: [address] [facility] [place] [address] Performed By: #### 2 276-4, 17749-1, 23687-2 ####[facility] LABORATORYCLIA [id number] [address] [place] [facility] Urea nitrogen [Mass/Vol] 12 mg/dL Normal 9-24 [facility] Comment on above: Order Comment: Speci men Type: BLOOD SPECIMENOrdering Facility: [facility] Address: [address] [place] [address] Performed By: #### 2 276-4, 34717-9, 43703-7 ####[facility] LABORATORYCLIA [id number] [address] [place] Anion gap [Moles/Vol] 11 mmol/L 9 - 18 mmol/L [facility] Calcium [Mass/Vol] 9.2 mg/dL 8.5 - 10. 2 mg/dL [facility] Chloride [Moles/Vol] 101 mmol/L 97 - 10 5 mmol/L [facility] CO2 [Moles/Vol] 25 mmol/L 22 - 30 mmol/L [facility] Creatinine [Mass/Vol] 0.56 mg/dL Low 0.73 - 1.22 mg/dL [facility] Estimated Glomerular Filtration Rate 111 mL/min/1.73m >=60 mL/min/1.73m [facility] Glucose [Mass/Vol] 140 mg/dL High 74 - 99 mg/dL [facility] Potassium [Moles/Vol] 4.3 mmol/L 3.7 - 5.1 mmol/L [facility] Sodium [Moles/Vol] 137 mmol/L 136 - 144 mmol/L [facility] Urea nitrogen [Mass/Vol] 12 mg/dL 9 - 24 mg/dL [facility] CBC W Auto Differential pane l (Bld)on 08-16-2022 Basophils (Bld) [#/Vol] 0.03 10*3/uL Normal <0.11 [facility] Comment on above: Order Comment: Speci men Type: BLOOD SPECIMENOrdering Facility: [facility] Address: [address] [place] [address] Performed By: #### 5 7021-8 ####[facility] LABORATORYCLIA [id number] [address] [place] Basophils/100 WBC (Bld) 0.3 % Normal [facility] Comment on above: Order Comment: Speci men Type: BLOOD SPECIMENOrdering Facility: [facility] Address: [address] [place] [address] Performed By: #### 5 7021-8 ####[facility] LABORATORYCLIA [id number] [place] [address] [place] Differential cell count method Nom (Bld) Auto Normal [facility] Comment on above: Order Comment: Speci men Type: BLOOD SPECIMENOrdering Facility: [facility] Address: [address] [place] [address] Performed By: #### 5 7021-8 ####BO[facility] LABORATORYCLIA [id number] [place] [address] [place] Eosinophils (Bld) [#/Vol] 0.07 10*3/uL Normal <0.46 [facility] Comment on above: Order Comment: Speci men Type: BLOOD SPECIMENOrdering Facility: [facility] Address: [address] [place] [address] Performed By: #### 5 7021-8 ####BO[facility] LABORATORYCLIA [id number] [address] Eosinophils/100 WBC (Bld) 0.7 % Normal [facility] Comment on above: Order Comment: Speci men Type: BLOOD SPECIMENOrdering Facility: [facility] Address: [address] [place] [address] Performed By: #### 5 7021-8 ####BO[facility] LABORATORYCLIA [id number] [address] [place] Erythrocyte distribution width (RBC) [Ratio] 14.3 % Normal 11.5-15.0 [facility] Comment on above: Order Comment: Speci men Type: BLOOD SPECIMENOrdering Facility: [facility] Address: [address] [place] [address] Performed By: #### 5 7021-8 ####BO[facility] LABORATORYCLIA [id number] [address] [place] Hematocrit (Bld) [Volume fraction] 39.9 % Normal 39.0-51.0 [facility] Comment on above: Order Comment: Speci men Type: BLOOD SPECIMENOrdering Facility: [facility] Address: [address] [place] [address] Performed By: #### 5 7021-8 ####BO[facility] LABORATORYCLIA [id number] [place] [address] [place] Hemoglobin (Bld) [Mass/Vol] 13.7 g/dL Normal 13.0-17.0 [facility] Comment on above: Order Comment: Speci men Type: BLOOD SPECIMENOrdering Facility: [facility] Address: [address] [place] [address] Performed By: #### 5 7021-8 ####BO[facility] LABORATORYCLIA [id number] [place] [address] [place] Immature granulocytes (Bld) [#/Vol] 0.05 10*3/uL Normal <0.10 [facility] Comment on above: Order Comment: Speci men Type: BLOOD SPECIMENOrdering Facility: [facility] Address: [address] [place] [address] Performed By: #### 5 7021-8 ####[facility] LABORATORYCLIA [id number] [address] [place] Immature granulocytes/100 WBC (Bld) 0.5 % Normal [facility] Comment on above: Order Comment: Speci men Type: BLOOD SPECIMENOrdering Facility: [facility] Address: [address] [place] [address] Performed By: #### 5 7021-8 ####BO[facility] LABORATORYCLIA [id number] [place] [address] [place] Lymphocytes (Bld) [#/Vol] 1.14 10*3/uL Normal 1.00-4.00 [facility] Comment on above: Order Comment: Speci men Type: BLOOD SPECIMENOrdering Facility: [facility] Address: [address] [place] [address] Performed By: #### 5 7021-8 ####[facility] LABORATORYCLIA [id number] [address] Lymphocytes/100 WBC (Bld) 10.7 % Normal [facility] Comment on above: Order Comment: Speci men Type: BLOOD SPECIMENOrdering Facility: [facility] Address: [address] [place] [address] Performed By: #### 5 7021-8 ####[facility] LABORATORYCLIA [id number] [address] MCH (RBC) [Entitic mass] 30.7 pg Normal 26.0-34.0 [facility] Comment on above: Order Comment: Speci men Type: BLOOD SPECIMENOrdering Facility: [facility] Address: [address] [place] [address] Performed By: #### 5 7021-8 ####[facility] LABORATORYCLIA [id number] [address] MCHC (RBC) [Mass/Vol] 34.3 g/dL Normal 30.5-36.0 [facility] Comment on above: Order Comment: Speci men Type: BLOOD SPECIMENOrdering Facility: [facility] Address: [address] [place] [address] Performed By: #### 5 7021-8 ####[facility] LABORATORYCLIA [id number] [address] MCV (RBC) [Entitic vol] 89.5 fL Normal 80.0-100.0 [facility] Comment on above: Order Comment: Speci men Type: BLOOD SPECIMENOrdering Facility: [facility] Address: [address] [place] [address] Performed By: #### 5 7021-8 ####[facility] LABORATORYCLIA [id number] [address] Monocytes (Bld) [#/Vol] 0.60 10*3/uL Normal <0.87 [facility] Comment on above: Order Comment: Speci men Type: BLOOD SPECIMENOrdering Facility: [facility] Address: [address] [place] [address] Performed By: #### 5 7021-8 ####BO[facility] LABORATORYCLIA [id number] [place] [address] [place] Monocytes/100 WBC (Bld) 5.6 % Normal [facility] Comment on above: Order Comment: Speci men Type: BLOOD SPECIMENOrdering Facility: [facility] Address: [address] [place] [address] Performed By: #### 5 7021-8 ####[facility] LABORATORYCLIA [id number] [place] [address] [place] Neutrophils (Bld) [#/Vol] 8.74 10*3/uL High 1.45-7.50 [facility] Comment on above: Order Comment: Speci men Type: BLOOD SPECIMENOrdering Facility: [facility] Address: [address] [place] [address] Performed By: #### 5 7021-8 ####[facility] LABORATORYCLIA [id number] [place] [address] [place] Neutrophils/100 WBC (Bld) 82.2 % Normal [facility] Comment on above: Order Comment: Speci men Type: BLOOD SPECIMENOrdering Facility: [facility] Address: [address] [place] [address] Performed By: #### 5 7021-8 ####BO[facility] LABORATORYCLIA [id number] [place] [address] [place] Nucleated RBC (Bld) [#/Vol] 10*3/uL Normal <0.01 [facility] Comment on above: Order Comment: Speci men Type: BLOOD SPECIMENOrdering Facility: [facility] Address: [address] [place] [address] Performed By: #### 5 7021-8 ####BO[facility] LABORATORYCLIA [id number] [place] [address] [place] Nucleated RBC/100 WBC (Bld) [Ratio] 0.0 /100 WBC Normal [facility] Comment on above: Order Comment: Speci men Type: BLOOD SPECIMENOrdering Facility: [facility] Address: [address] [place] [address] Performed By: #### 5 7021-8 ####[facility] LABORATORYCLIA [id number] [place] [address] [place] Platelet mean volume (Bld) [Entitic vol] 9.0 fL Normal 9.0-12.7 [facility] Comment on above: Order Comment: Speci men Type: BLOOD SPECIMENOrdering Facility: [facility] Address: [address] [place] [address] Performed By: #### 5 7021-8 ####BO[facility] LABORATORYCLIA [id number] [place] [address] [place] Platelets (Bld) [#/Vol] 314 10*3/uL Normal 150-400 [facility] Comment on above: Order Comment: Speci men Type: BLOOD SPECIMENOrdering Facility: [facility] Address: [address] [place] [address] Performed By: #### 5 7021-8 ####BO[facility] LABORATORYCLIA [id number] [place] [address] [place] RBC (Bld) [#/Vol] 4.46 10*6/uL Normal 4.20-6.00 [facility] Comment on above: Order Comment: Speci men Type: BLOOD SPECIMENOrdering Facility: [facility] Address: [address] [place] [address] Performed By: #### 5 7021-8 ####[facility] LABORATORYCLIA [id number] [place] [address] [place] WBC (Bld) [#/Vol] 10.63 10*3/uL Normal 3.70-11.00 [facility] Comment on above: Order Comment: Speci men Type: BLOOD SPECIMENOrdering Facility: [facility] Address: [address] [place] [address] Performed By: #### 5 7021-8 ####[facility] LABORATORYCLIA [id number] [place] [address] [place] Basophils (Bld) [#/Vol] 0.03 10*3/uL <0.11 k/uL [facility] Basophils/100 WBC (Bld) 0.3 % [facility] Differential cell count method Nom (Bld) Auto [facility] Eosinophils (Bld) [#/Vol] 0.07 10*3/uL <0.46 k/uL [facility] Eosinophils/100 WBC (Bld) 0.7 % [facility] Erythrocyte distribution width (RBC) [Ratio] 14.3 % 11.5 - 15.0 % [facility] Hematocrit (Bld) [Volume fraction] 39.9 % 39.0 - 51.0 % [facility] Hemoglobin (Bld) [Mass/Vol] 13.7 g/dL 13.0 - 17.0 g/dL [facility] Immature granulocytes (Bld) [#/Vol] 0.05 10*3/uL <0.10 k/uL [facility] Immature granulocytes/100 WBC (Bld) 0.5 % [facility] Lymphocytes (Bld) [#/Vol] 1.14 10*3/uL 1.00 - 4.00 k/uL [facility] Lymphocytes/100 WBC (Bld) 10.7 % [facility] MCH (RBC) [Entitic mass] 30.7 pg 26.0 - 34.0 pg [facility] MCHC (RBC) [Mass/Vol] 34.3 g/dL 30.5 - 36.0 g/dL [facility] MCV (RBC) [Entitic vol] 89.5 fL 80.0 - 100.0 fL [facility] Monocytes (Bld) [#/Vol] 0.60 10*3/uL <0.87 k/uL [facility] Monocytes/100 WBC (Bld) 5.6 % [facility] Neutrophils (Bld) [#/Vol] 8.74 10*3/uL High 1.45 - 7.50 k/uL [facility] Neutrophils/100 WBC (Bld) 82.2 % [facility] Nucleated RBC (Bld) [#/Vol] <0.01 k/uL [facility] Nucleated RBC/100 WBC (Bld) [Ratio] 0.0 /100 WBC [facility] Platelet mean volume (Bld) [Entitic vol] 9.0 fL 9.0 - 12.7 fL [facility] Platelets (Bld) [#/Vol] 314 10*3/uL 150 - 400 k/uL [facility] RBC (Bld) [#/Vol] 4.46 10*6/uL 4.20 - 6.0 0 m/uL [facility] WBC (Bld) [#/Vol] 10.63 10*3/uL 3.70 - 11 .00 k/uL [facility] ECG COMPLETEon 08-16-2022 Atrial Rate 77 BPM [facility] Calculated P [place] 57 degrees [facility] Calculated R [place] -3 degrees [facility] Calculated T [place] 30 degrees [facility] P-R Interval 172 ms [facility] QRS Duration 98 ms [facility] QT Interval 378 ms [facility] QTC Calculation (Bazett) 427 ms [facility] Ventricular Rate 77 BPM [facility] [id number] 08-16-2022 ECG01 Ventricular Rate : 7 7 BPM Atrial Rate : 77 BPM P-R Interval : 172 ms QRS Duration : 98 ms Q-T Interval : 378 ms QTC Calculation(Bazett) : 427 ms Calculated P [place] : 57 degrees Calculated R [place] : -3 degrees Calculated T [place] : 30 degrees NORMAL SINUS RHYTHM NORMAL ECG WHEN COMPARED WITH ECG OF 29-JUL-2014 08:31, NO SIGNIFICANT CHANGE WAS FOUND Confirmed by ELIJAH BURNS M.D. ([id number]) on 08/16/2022 2:14:14 PM NAME : ROBERTO OSBORN PID : [id number] : 1960 Gender : Male Race : ORD : [id number] Procedure Date : Aug 16 2022 08:49:58 Edit Date : Aug 16 2022 14:14:15 Diagnosis: NORMAL SINUS RHYTHM NORMAL ECG WHEN COMPARED WITH ECG OF 29-JUL-2014 08:31, NO SIGNIFICANT CHANGE WAS FOUND Confirmed by ELIJAH BURNS M.D. ([id number]) on 08/16/2022 2:14:14 PM Test Reason : Location : 10 : [facility]/ Overread By : ELIJAH BURNS M.D. Edited By : ELIJAH BURNS M.D. Referred By : YANET BOYLE Acquired by : EL [facility] FERRITIN BLDon 08-16-2022 Ferritin [Mass/Vol] 138.0 ng/mL 30.3 - 5 65.7 ng/mL [facility] Ferritin SerPl-mCncon 01-06- 2023 Ferritin [Mass/Vol] 138.0 ng/mL Normal 30.3-565.7 [facility] Comment on above: Order Comment: Vera grant Type: BLOOD SPECIMENOrdering Facility: [facility] Address: [place] [address] Performed By: #### 2 276-4, 46870-6, 39669-7 ####[facility] LABORATORYCLIA [id number] [address] OF [facility] HbA1c (Bld)on 08-16-2022 Average glucose Estimated from glycated hemoglobin (Bld) [Mass/Vol] 131 mg/dL [facility] HbA1c (Bld) [Mass fraction] 6.2 % High 4.3 - 5.6 % [facility] Average glucose Estimated from glycated hemoglobin (Bld) [Mass/Vol] 131 mg/dL Normal [facility] Comment on above: Order Comment: Vera grant Type: BLOOD SPECIMENOrdering Facility: [facility] Address: [address] [place] [address] Result Comment: eAG: (Estimated average glucose) is a calculated value from HgbA1c and is sales representative aircraft of the average blood glucose level in the last 2-3 month period. Performed By: #### 5 5454-3 ####[facility] LABCLIA [id number] [address] STATES OF [facility] HbA1c (Bld) [Mass fraction] 6.2 % High 4.3-5.6 [facility] Comment on above: Order Comment: Vera grant Type: BLOOD SPECIMENOrdering Facility: [facility] Address: [address] [place] [address] Result Comment: Amer ican Diabetes Association guidelines indicate that patients with HgbA1c in the range 5.7-6.4% are at increased risk for development of diabetes, and intervention by lifestyle modification may be beneficial. HgbA1c greater or equal to 6.5% is considered diagnostic of diabetes. Performed By: #### 5 5454-3 ####[facility] LABCLIA [id number] [address] OF [facility] Iron and Iron binding capaci ty panelon 08-16-2022 Iron [Mass/Vol] 151 ug/dL Normal 41-186 [facility] Comment on above: Order Comment: Speci men Type: BLOOD SPECIMENOrdering Facility: [facility] Address: [place] [address] Performed By: #### 2 276-4, 56619-8, 35216-3 ####[facility] LABORATORYCLIA [id number] [address] Iron binding capacity [Mass/Vol] 338 ug/dL Normal 232-386 [facility] Comment on above: Order Comment: Speci men Type: BLOOD SPECIMENOrdering Facility: [facility] Address: [address] [place] [address] Performed By: #### 2 276-4, 11386-9, 59257-8 ####[facility] LABORATORYCLIA [id number] [address] Iron/TIBC [Molar ratio] 44.7 % Normal 15.0-57.0 [facility] Comment on above: Order Comment: Speci men Type: BLOOD SPECIMENOrdering Facility: [facility] Address: [address] [place] [address] Performed By: #### 2 276-4, 04319-0, 18406-9 ####[facility] LABORATORYCLIA [id number] [address] Iron [Mass/Vol] 151 ug/dL 41 - 186 ug/dL [facility] Iron binding capacity [Mass/Vol] 338 ug/dL 232 - 386 ug/dL [facility] Iron/TIBC [Molar ratio] 44.7 % 15.0 - 57.0 % [facility] TYPE AND SCREEN,30 DAYon ABO O Normal [facility] Comment on above: Order Comment: Speci men Type: BLOOD SPECIMENOrdering Facility: [facility] Address: [address] [place] [address] Performed By: #### T SCR30 ####[facility] BLOOD BANKCLIA [id number] [address] HISTORICAL AB SCR STATUS Negative Normal [facility] Comment on above: Order Comment: Speci men Type: BLOOD SPECIMENOrdering Facility: [facility] Address: [address] [place] [address] Performed By: #### T SCR30 ####[facility] BLOOD BANKCLIA [id number] [place] [address] [facility] [place] Rh Nom (Bld) Positive Normal [facility] Comment on above: Order Comment: Speci men Type: BLOOD SPECIMENOrdering Facility: [facility] Address: [address] Performed By: #### T SCR30 ####[facility] BLOOD BANKIA [id number] [address] [place] ABO O [facility] HIstorical Ab Scr Status Negative [facility] Rh Nom (Bld) Positive [facility] HISTORY PHYSICALon HISTORY PHYSICAL HNO ID: [id number] Author: Yanet Boyle PA-C Service: ? Author Type: Physician Grants Director Type: HANDP Filed: 08/16/2022 9:28 AM Note [...] manage symptoms. Procedure scheduled on 09/10/2022 at OR. REVIEW OF SYSTEMS: General: No weight loss, malaise or fevers. Neurological: No history of TIA's, stroke, DEVICE SALES CONSULTANT tumor, impaired sensorium, hemiplegia, paraplegia or quadraplegia. [...] Yes umeclid (more content not included)... Normal [facility] XR Shoulder - right 2 Viewso n 08-06-2022 IMPRESSION: Degenerative changes as discussed Revolving Inventory Clerk: ENOCH Transcribe Date/Time: Aug 06 2022 12:49P Dictated by : ADAL RODRIGUEZ DO This examination was interpreted and the report reviewed and electronically signed by: ADAL RODRIGUEZ DO on Aug 06 2022 12:51PM [facility] RADIOLOG[facility] * * *Final Report* [...] well-preserved. No fractures or dislocations are seen. [facility] Provider, Sunny Jiang - 08/06/2022 * [...] seen. IMPRESSION IMPRESSION: Degenerative changes as discussed Revolving Inventory Clerk: PSCMayra Transcribe Date/Time: Aug 06 2022 12:49P Dictated by : ADAL RODRIGUEZ DO This examination was interpreted and the report reviewed and electronically signed by: ADAL RODRIGUEZ DO on Aug 06 2022 12:51PM [facility] XR Shoulder - right 2 ViewsO rdered By: Ccf Provider on 08-06-2022 [facility] XR SHOULDER 2V AP/TRUE AP RT [...] are seen. IMPRESSION: Degenerative changes as discussed Revolving Inventory Clerk: ENOCH Transcribe Date/Time: Aug 06 2022 12:49P Dictated by : ADAL RODRIGUEZ DO This examination was interpreted and the report reviewed and electronically signed by: ADAL RODRIGUEZ DO on Aug 06 2022 12:51PM EST [id number] [facility] XR Shoulder - right 2 Viewso n 08-02-2022 Radiology Study observation (narrative) [facility] XR KNEE GENERAL 4V AP BOTH/P A BOTH/LAT/MERC BILATERALon 02-22-2022 [facility] CNPNon 05-02-2020 CNPN Telephone ([id number]) ROBERTO OSBORN SR ([id number]) 1960 M Date Time Provider Department 05/02/20 [place] [address] During your visit today, we recorded the following information about you: RT Ranjan, Tech 05/02/2020 1:03 PM Signed LMOM for patient to schedule 05/02. RT Izabella, Tech 05/02/2020 4:27 PM Signed Patient called back and stated he was going to call [facility] before scheduling. Jazmin Alcantara Allergies As [...] by JAZMIN ALCANTARA on 05/02/20 Normal [facility] CT Spine Lumbar w/o Contrast on 04-26-2020 CT Spine Lumbar w/o Contrast Patient Name: ROBERTO OSBORN CT Exam Date/Time 04/25/2020 09:20:[address] Spine Lumbar w/o Contrast Ordering Physician NESSA LIAO BRANDY M Accession Number [id number] CPT4 Codes 32461 () Reason For Exam RIGHT LEG WEAKNESS, [...] Transcribed Date and Time: 04/26/2020 9:58 Normal [facility] NM BONE SCAN WHOLE BODYon Patient Name: ROBERTO OSBORN ---Nuc Med--- Exam Date/Time 04/25/2020 13:03:31 EDT Exam NM Bone Imaging Whole Body Ordering Physician NESSA LIAO BRANDY M Accession Number [id number] CPT4 Codes 44081 () Reason For Exam low back pain [...] R Transcribed Date and Time: 04/25/2020 1:54 [place], [place] Tim, [facility] Incoming Radiology Results From [facility] - 04/25/2020 1:54 PM EDT Patient Name: ROBERTO OSBORN ---Nuc Med--- Exam Date/Time 04/25/2020 13:03:31 EDT Exam NM Bone Imaging Whole Body Ordering Physician NESSA LIAO BRANDY M Accession Number [id number] CPT4 Codes 11963 () Reason For Exam low back pain [...] R Transcribed Date and Time: 04/25/2020 1:54 [place], [place] NM Bone Imaging Whole Bodyon 04-25-2020 NM Bone Imaging Whole Body Patient Name: ROBERTO OSBORN Nuc Med Exam Date/Time 04/25/2020 13:03:31 EDT Exam NM Bone Imaging Whole Body Ordering Physician NESSA LIAO BRANDY M Accession Number [id number] CPT4 Codes 17683 () Reason For Exam low back pain [...] Transcribed Date and Time: 04/25/2020 1:54 Normal [facility] US Lower Extremity Venous Ri danii 03-27-2020 [facility] -- Right Lower Extremity Venous Duplex Report Ordering Physician: Awilda Vivas Radiologic Technologist: Steph Abraham RDMS, T Interpreting Physician: Marti Valles -- Location: [facility] -- Indications: Pain right thigh. -- Preliminary [...] Images were obtained using a [employer] i700 [employer] vascular ultrasound machine. -- Venous flow and [...] electronically signed by Marti Valles 03/27/2020 17:43 [facility] [place], [place] Tim, [facility] Cardiology Results From [facility] - 03/27/2020 5:44 PM EDT [facility] -- Right Lower Extremity Venous Duplex Report Ordering Physician: Awilda Vivas Radiologic Technologist: Steph Abraham RDMS RVT Interpreting Physician: Marti Valles -- Location: [facility] -- Indications: Pain right thigh. [...] supine position. Images were obtained using a [place] i700 [employer] vascular ultrasound machine. -- Venous [...] electronically signed by Marti Valles 03/27/2020 17:43 [place], [place] VL Venous Duplex US Lower Ex t Casey 03-27-2020 VL Venous Duplex US Lower Ext Right Patient Name: ROBERTO OSBORN Ultrasound Exam Date/Time 03/27/2020 16:45:00 EDT Exam VL Venous Duplex US Lower Ext Right Ordering Physician AWILDA VIVAS Accession Number [id number] CPT4 Codes 12392 () Reason For Exam pain of thigh of right lower extremity Report [facility] -- Right Lower Extremity Venous Duplex Report Ordering Physician: Awilda Vivas Radiologic Technologist: Steph Abraham RDIA, T Interpreting Physician: Marti Valles -- Location: [facility] -- Indications: Pain right thigh. -- Preliminary [...] supine position. Images were obtained using a [employer] i700 [employer] vascular ultrasound machine. -- Venous flow and [...] 03/27/2020 5:43 pm Signed by: MARTI VALLES [facility] MRI Spine Lumbar w/ + w/o Co ntraston 03-24-2020 MRI Spine Lumbar w/ + w/o Contrast Patient Name: ROBERTO OSBORN MRI Exam Date/Time 03/22/2020 13:59:28 EDT Exam MRI Spine Lumbar w/ + w/o Contrast Ordering Physician NESSA LAIO BRANDY M Accession Number [id number] CPT4 Codes 74400 () Reason For Exam stenosis with neurogenic [...] Transcribed Date and Time: 03/24/2020 9:24 Normal [facility] CBC Auto Differentialon 04- Absolute Baso # 0.1 10*3/uL 0 - 0.2 10*3/uL [facility], [place] Comment on above: Test Performed by [facility], [address] [place] [address], [place] [address] Absolute Neut # 3.7 10*3/uL 1.8 - 7 10*3/uL [place], [place] Comment on above: Test Performed by [facility], [address] [place] [address] Interpretation and review of laboratory results Abnormal [place], [place] Test Performed by [facility], [address] [place] [address] [place], [place] CT HEAD WO CONTRASTon 2019 Patient Name: ROBERTO OSBORN ---CT--- Exam Date/Time 11/27/2019 04:15:[address] Head or Brain w/o Contrast Ordering Physician MD KRISTIAN, TRAY Costello Accession Number [id number] CPT4 Codes 69209 () Reason For Exam left hand numbness [...] WILLIAM Transcribed Date and Time: 11/27/2019 4:25 [place] [facility], [facility] Incoming Radiology Results From [facility] - 11/27/2019 4:28 AM EDT Patient Name: ROBERTO OSBORN ---CT--- Exam Date/Time 11/27/2019 04:15:[address] Head or Brain w/o Contrast Ordering Physician MD TOWNSEND MARK D Accession Number [id number] CPT4 Codes 61582 () Reason For Exam left hand numbness [...] WILLIAM Transcribed Date and Time: 11/27/2019 4:25 [place] CT Head or Brain w/o Contras ton 11-27-2019 CT Head or Brain w/o Contrast Patient Name: ROBERTO OSBORN CT Exam Date/Time 11/27/2019 04:15:[address] Head or Brain w/o Contrast Ordering Physician MD KRISTIAN, TRAY Costello Accession Number [id number] CPT4 Codes 26365 () Reason For Exam left hand numbness [...] WILLIAM Transcribed Date and Time: 11/27/2019 4:25 [facility] Comp Panel with Mg Reflexon 11-27-2019 ALP [Catalytic activity/Vol] 67 U/L Normal 38-126 [facility] Comment on above: Performed By: #### H EMDHugo CMP3M, TROPN #### [place] [address] [place] [address] ALT [Catalytic activity/Vol] 20 U/L Normal 0-49 [facility] Comment on above: Result Comment: The ALT test is performed by an updated assay method. Please note that the reference intervals have been changed and are now sex specific. Performed By: #### H EMDF, CMP3M, TROPN #### [address] [place] [address] AST [Catalytic activity/Vol] 27 U/L Normal 15-46 [facility] Comment on above: Performed By: #### H EMDF, CMP3M, TROPN #### [address] [place] [address] Calcium [Mass/Vol] 8.7 mg/dL Normal 8.4-10.4 [facility] Comment on above: Performed By: #### H EMDF, CMP3M, TROPN #### [address] [place] [address] Glucose [Mass/Vol] 147 mg/dL High 70-100 [facility] Comment on above: Performed By: #### H EMDF, CMP3M, TROPN #### [address] [place] [address] Urea nitrogen [Mass/Vol] 6 mg/dL Low 7-20 [facility] Comment on above: Performed By: #### H EMDF, CMP3M, TROPN #### [address] [place] [address] Anion gap [Moles/Vol] 9 Normal [facility] Comment on above: Performed By: #### H EMDF, CMP3M, TROPN #### [place] [address] [place] [address] Bilirubin [Mass/Vol] 0.6 mg/dL Normal 0.2-1.3 [facility] Comment on above: Performed By: #### H EMDF, CMP3M, TROPN #### [address] [address] CO2 [Moles/Vol] 25 mmol/L Normal 22-30 [facility] Comment on above: Performed By: #### H MISTY [place]3M, TROPN #### [address] [address] Creatinine [Mass/Vol] 0.57 mg/dL Normal 0.52-1.25 [facility] Comment on above: Performed By: #### H MISTY [place]3M, TROPN #### [address] [address] GFR/1.73 sq M predicted among blacks MDRD (S/P/Bld) [Vol rate/Area] mL/min/{1.73_m2} Normal >60 [facility] Comment on above: Performed By: #### H MISTY [place]3M, TROPN #### [address] [address] GFR/1.73 sq M predicted among non-blacks MDRD (S/P/Bld) [Vol rate/Area] mL/min/{1.73_m2} Normal >60 [facility] Comment on above: Result Comment: Sour ce- MDRD equation with creatinine calibration to IDMS(NKDEP) eGFR not recommended for drug dose adjustment Performed By: #### H MISTY [place]3M, TROPN #### [address] [address] Protein [Mass/Vol] 6.8 g/dL Normal 6.3-8.2 [facility] Comment on above: Performed By: #### H GE CMP3M, TROPN #### [address] [address] Albumin [Mass/Vol] 4.0 g/dL Normal 3.5-5.0 [facility] Comment on above: Performed By: #### H GE CMP3M, TROPN #### [address] [address] Chloride [Moles/Vol] 102 mmol/L Normal 98-107 [facility] Comment on above: Performed By: #### H EMDF, CMP3M, TROPN #### [address] [address] Potassium [Moles/Vol] 3.7 mmol/L Normal 3.5-5.1 [place], [place] Comment on above: Test Performed by [facility], [address] [place] [address] Performed By: #### H EMDF, CMP3M, TROPN #### [address] [address] Sodium [Moles/Vol] 136 mmol/L Normal 135-145 [place] Comment on above: Performed By: #### H EMDF, CMP3M, TROPN #### [address] [address] Comprehensive Metabolic Pane l w/ Reflex to MGon 11-27-2019 Albumin [Mass/Vol] 4.0 g/dL 3.5 - 5 g/dL [place], [place] Comment on above: Test Performed by [facility], [address] [place] [address] ALP [Catalytic activity/Vol] 67 U/L 38 - 126 U/L [place] Comment on above: Test Performed by [facility], [address] [place] [address] ALT [Catalytic activity/Vol] 20 U/L 0 - 49 U/L [place] Comment on above: Test Performed by [facility], [address] [place] [address] The ALT test is performed by an updated assay method. Please note that the reference intervals have been changed and are now sex specific. Anion gap [Moles/Vol] 9 mmol/L [place], [place] Comment on above: Test Performed by [facility], [address] [place] [address] AST [Catalytic activity/Vol] 27 U/L 15 - 46 U/L [place] Comment on above: Test Performed by [facility], [address] [place] [address] Bilirubin Ql (U) 0.6 mg/dL 0.2 - 1.3 mg/dL [place] Comment on above: Test Performed by [address] [address] Calcium [Mass/Vol] 8.7 mg/dL 8.4 - 10. 4 mg/dL [place] Comment on above: Test Performed by [facility], [address] [place] [address] Chloride [Moles/Vol] 102 mmol/L 98 - 10 7 mmol/L [place] Comment on above: Test Performed by [facility], [address] [place] [address] CO2 [Moles/Vol] 25 mmol/L 22 - 30 mmol/L [place] Comment on above: Test Performed by [facility], [address] [place] [address] Creatinine [Mass/Vol] 0.57 mg/dL 0.52 - 1.25 mg/dL [place] Comment on above: Test Performed by [facility], [address] [place] [address] EGFR IF NonAfrican Nepalese >60.0 >60 mL/min [place] Comment on above: Test Performed by [facility], [address] [place] [address] Source- MDRD equation with creatinine calibration to IDMS(NKDEP) eGFR not recommended for drug dose adjustment GFR/1.73 sq M predicted among blacks MDRD (S/P/Bld) [Vol rate/Area] mL/min/{1.73_m2} >60 mL/min [place] Comment on above: Test Performed by [facility], [address] [place] [address] Glucose [Mass/Vol] 147 mg/dL High 70 - 100 mg/dL [place] Comment on above: Test Performed by [facility], [address] [place] [address] Interpretation and review of laboratory results Abnormal [place], [place] Protein [Mass/Vol] 6.8 g/dL 6.3 - 8.2 g/dL [place] Comment on above: Test Performed by [facility], [address] [place] [address] Urea nitrogen [Mass/Vol] 6 mg/dL Low 7 - 20 mg/dL [place] Comment on above: Test Performed by [facility], [address] [place] [address] Test Performed by [facility], [address] [place] [address] [place], [place] Hemogram w/ Autodiffon 11-26 Abs Baso Cnt 0.1 10*3/uL Normal 0.0-0.2 [facility] Comment on above: Performed By: #### H EMDF, CMP3M, TROPN #### [address] [address] Abs Neutrophile Cnt 3.7 10*3/uL Normal 1.8-7.0 [facility] Comment on above: Performed By: #### H EMDF, CMP3M, TROPN #### [address] [address] Basophils/100 WBC (Bld) 0.7 % Normal 0.0-2.0 [place] Comment on above: Test Performed by [facility], [address] [place] [address] Performed By: #### H EMDF, CMP3M, TROPN #### [address] [address] Eosinophils (Bld) [#/Vol] 0.2 10*3/uL Normal 0.0-0.5 [place], [place] Comment on above: Test Performed by [facility], [address] [place] [address] Performed By: #### H EMDF, CMP3M, TROPN #### [address] [address] Eosinophils/100 WBC (Bld) 3.2 % Normal 1.0-6.0 [place], [place] Comment on above: Test Performed by [facility], [address] [place] [address] Performed By: #### H EMDF, CMP3M, TROPN #### [address] [address] Erythrocyte distribution width (RBC) [Ratio] 13.3 % Normal 11.5-14.5 [place], [place] Comment on above: Test Performed by [facility], [address] [place] [address], [place] [address] Performed By: #### H EMDF, CMP3M, TROPN #### [address] [place] [address] Granulocytes/100 WBC (Bld) 48.4 % Normal 40.0-80.0 [place], [place] Comment on above: Test Performed by [facility], [address] [place] [address], [place] [address] Performed By: #### H EMDF, CMP3M, TROPN #### [address] [place] [address] Hematocrit (Bld) [Volume fraction] 43.8 % Normal 40.0-52.0 [place], [place] Comment on above: Test Performed by [facility], [address] [place] [address], [place] [address] Performed By: #### H EMDF, CMP3M, TROPN #### [address] [address] Hemoglobin (Bld) [Mass/Vol] 14.4 g/dL Normal 13.0-18.0 [place], [place] Comment on above: Test Performed by [facility], [address] [place] [address] Performed By: #### H EMDF, CMP3M, TROPN #### [address] [place] [address] Lymphocytes (Bld) [#/Vol] 2.7 10*3/uL Normal 1.0-4.3 [place], [place] Comment on above: Test Performed by [facility], [address] [place] [address], [place] [address] Performed By: #### H EMDF, CMP3M, TROPN #### [address] [place] [address] Lymphocytes/100 WBC (Bld) 35.2 % Normal 20.0-40.0 [place], [place] Comment on above: Test Performed by [facility], [address] [place] [address] Performed By: #### H EMDF, CMP3M, TROPN #### [address] [place] [address] MCH (RBC) [Entitic mass] 29.1 pg Normal 26.0-34.0 [place], [place] Comment on above: Test Performed by [facility], [address] [place] [address] Performed By: #### H EMDF, CMP3M, TROPN #### [address] [address] MCHC (RBC) [Mass/Vol] 33.0 % Normal 32.0-36.0 [place], [place] Comment on above: Test Performed by [facility], [address] [place] [address] Performed By: #### H EMDF, CMP3M, TROPN #### [address] [address] MCV (RBC) [Entitic vol] 88.2 fL Normal 80.0-98.0 [place] Comment on above: Test Performed by [facility], [address] [place] [address] Performed By: #### H EMDF, CMP3M, TROPN #### [address] [address] Monocytes (Bld) [#/Vol] 1.0 10*3/uL High 0.0-0.8 [place], [place] Comment on above: Test Performed by [facility], [address] [place] [address] Performed By: #### H EMDF, CMP3M, TROPN #### [address] [address] Monocytes/100 WBC (Bld) 12.5 % High 2.0-10.0 [place] Comment on above: Test Performed by [facility], [address] [place] [address] Performed By: #### H EMDF, CMP3M, TROPN #### [address] [address] Platelet mean volume (Bld) [Entitic vol] 6.9 fL Low 7.4-10.4 [place], [place] Comment on above: Test Performed by [facility], [address] [place] [address] Performed By: #### H EMDF, CMP3M, TROPN #### [address] [address] Platelets (Bld) [#/Vol] 355 10*3/uL Normal 140-440 [place], [place] Comment on above: Test Performed by [facility], [address] [place] [address] Performed By: #### H EMDF, CMP3M, TROPN #### [address] [address] RBC (Bld) [#/Vol] 4.97 10*6/uL Normal 4.40-5.90 [place] Comment on above: Test Performed by [facility], [address] [place] [address] Performed By: #### H EMDF, CMP3M, TROPN #### [address] [address] WBC (Bld) [#/Vol] 7.7 10*3/uL Normal 3.6-10.7 [place] Comment on above: Performed By: #### H EMDF, CMP3M, TROPN #### [address] [address] Troponinon 11-27-2019 Troponin I.cardiac [Mass/Vol] ng/mL 0 - 0.034 ng/mL [place], [place] Comment on above: . Test Performed by [facility], [address] [place] [address] [place] Troponin Ion 11-27-2019 Troponin I.cardiac [Mass/Vol] ng/mL Normal 0.000-0.034 [facility] Comment on above: Result Comment: . Performed By: #### H EMDF, CMP3M, TROPN #### [address] [address] No Panel Information [facility] Vital Signs Date Time Vital Sign Value Performing Clinician Facility 09-06-2024 11:22-0500 Diastolic blood pressure 72 mm[Hg] Timothy Correa MD Work Phone: [facility] 09-06-2024 11:22-0500 Systolic blood pressure 126 mm[Hg] Timothy Correa MD Work Phone: [facility] 09-06-2024 11:17-0500 Body height 180.3 cm Timothy Correa MD Work Phone: [facility] 09-06-2024 11:17-0500 Body mass index (BMI) [Ratio] 34.61 kg/m2 Timothy Correa MD Work Phone: [facility] 09-06-2024 11:17-0500 Body temperature 98.2 [degF] Timothy Correa MD Work Phone: [facility] 09-06-2024 11:17-0500 Body weight 112.55 kg Timothy Correa MD Work Phone: [facility] 09-06-2024 11:17-0500 Heart rate 76 /min Timothy Correa MD Work Phone: [facility] 09-06-2024 11:17-0500 Respiratory rate 16 /min Timothy Correa MD Work Phone: [facility] 09-06-2024 11:17-0500 SaO2% (BldA) [Mass fraction] 97 % Timothy Correa MD Work Phone: [facility] 12-16-2023 08:17-0400 Body temperature 98.01 [degF] Timothy Correa MD Work Phone: [facility] 12-16-2023 08:17-0400 Diastolic blood pressure 75 mm[Hg] Timothy Correa MD Work Phone: [facility] 12-16-2023 08:17-0400 Heart rate 100 /min Timothy Correa MD Work Phone: [facility] 12-16-2023 08:17-0400 Respiratory rate 16 /min Timothy Correa MD Work Phone: [facility] 12-16-2023 08:17-0400 Systolic blood pressure 135 mm[Hg] Timothy Correa MD Work Phone: [facility] 10-06-2023 08:50-0500 Body temperature 98.01 [degF] Timothy [...] 88 /min Timothy Correa MD Work Phone: [facility] 04-24-2023 13:14-0400 Respiratory rate 16 /min Timothy Correa MD Work Phone: [facility] 04-24-2023 13:14-0400 SaO2% (BldA) [Mass fraction] 97 % Timothy Correa MD Work Phone: [facility] 04-24-2023 13:14-0400 Systolic blood pressure 125 mm[Hg] Timothy Correa MD Work Phone: [facility] 10-03-2022 08:26-0500 Body temperature 98.01 [degF] Timothy Correa MD Work Phone: [facility] 10-03-2022 08:26-0500 Diastolic blood pressure 61 mm[Hg] Timothy Correa MD Work Phone: [facility] 10-03-2022 08:26-0500 Heart rate 96 /min Timothy Correa MD Work Phone: [facility] 10-03-2022 08:26-0500 Respiratory rate 16 /min Timothy Correa MD Work Phone: [facility] 10-03-2022 08:26-0500 SaO2% (BldA) [Mass fraction] 96 % Timothy Correa MD Work Phone: [facility] 10-03-2022 08:26-0500 Systolic blood pressure 119 mm[Hg] Timothy Correa MD Work Phone: [facility] 09-30-2022 09:09-0500 Body temperature 97.59 [degF] Kirill Noe PT Work Phone: [facility] 09-30-2022 09:09-0500 Diastolic blood pressure 70 mm[Hg] Kirill Noe PT Work Phone: [facility] 09-30-2022 09:09-0500 Heart rate 93 /min Kirill Noe PT Work Phone: [facility] 09-30-2022 09:09-0500 SaO2% (BldA) [Mass fraction] 97 % Kirill Noe PT Work Phone: [facility] 09-30-2022 09:09-0500 Systolic blood pressure 130 mm[Hg] Kirill Noe PT Work Phone: [facility] 09-26-2022 10:19-0500 Body temperature 98.8 [degF] Kirill Noe PT Work Phone: [facility] 09-26-2022 10:19-0500 Diastolic blood pressure 80 mm[Hg] Kirill Noe PT Work Phone: [facility] 09-26-2022 10:19-0500 Heart rate 88 /min Kirill Noe PT Work Phone: [facility] 09-26-2022 10:19-0500 SaO2% (BldA) [Mass fraction] 97 % Kirill Susjunoewicz PT Work Phone: [facility] 09-26-2022 10:19-0500 Systolic blood pressure 136 mm[Hg] Kirill Suskiewicz PT Work Phone: [facility] 09-23-2022 08:59-0500 Body temperature 98.1 [degF] Kirill Suskiewicz PT Work Phone: [facility] 09-23-2022 08:59-0500 Diastolic blood pressure 70 mm[Hg] Kirill Suskiewicz PT Work Phone: [facility] 09-23-2022 08:59-0500 Heart rate 77 /min Kirill Suskiewicz PT Work Phone: [facility] 09-23-2022 08:59-0500 SaO2% (BldA) [Mass fraction] 98 % Kirill Suskiewicz PT Work Phone: [facility] 09-23-2022 08:59-0500 Systolic blood pressure 138 mm[Hg] Kirill Suskiewicz PT Work Phone: [facility] 09-20-2022 08:59-0500 Body temperature 98.49 [degF] Kirill Suskiewicz PT Work Phone: [facility] 09-20-2022 08:59-0500 Diastolic blood pressure 62 mm[Hg] Kirill Suskiewicz PT Work Phone: [facility] 09-20-2022 08:59-0500 Heart rate 88 /min Kirill Suskiewicz PT Work Phone: [facility] 09-20-2022 08:59-0500 SaO2% (BldA) [Mass fraction] 97 % Kirill Suskiewicz PT Work Phone: [facility] 09-20-2022 08:59-0500 Systolic blood pressure 130 mm[Hg] Kirill Suskiewicz PT Work Phone: [facility] 09-18-2022 09:14-0500 Body temperature 98.8 [degF] Kirill Suskiewicz PT Work Phone: [facility] 09-18-2022 09:14-0500 Diastolic blood pressure 70 mm[Hg] Kirill Suskiewicz PT Work Phone: [facility] 09-18-2022 09:14-0500 Heart rate 80 /min Kirill Suskiewicz PT Work Phone: [facility] 09-18-2022 09:14-0500 SaO2% (BldA) [Mass fraction] 98 % Kirill Suskiewicz PT Work Phone: [facility] 09-18-2022 09:14-0500 Systolic blood pressure 120 mm[Hg] Kirill Suskiewicz PT Work Phone: [facility] 09-16-2022 11:10-0500 Body temperature 98.29 [degF] Kirill Suskiewicz PT Work Phone: [facility] 09-16-2022 11:10-0500 Diastolic blood pressure 70 mm[Hg] Kirill Suskiewicz PT Work Phone: [facility] 09-16-2022 11:10-0500 Heart rate 84 /min Kirill Suskiewicz PT Work Phone: [facility] 09-16-2022 11:10-0500 SaO2% (BldA) [Mass fraction] 96 % Kirill Suskiewicz PT Work Phone: [facility] 09-16-2022 11:10-0500 Systolic blood pressure 128 mm[Hg] Kirill Suskiewicz PT Work Phone: [facility] 09-12-2022 11:03-0500 Diastolic blood pressure 64 mm[Hg] Kirill Suskiewicz PT Work Phone: [facility] 09-12-2022 11:03-0500 Heart rate 90 /min Kirill Suskiewicz PT Work Phone: [facility] 09-12-2022 11:03-0500 SaO2% (BldA) [Mass fraction] 94 % Kirill Noe PT Work Phone: [facility] 09-12-2022 11:03-0500 Systolic blood pressure 118 mm[Hg] Kirill Noe PT Work Phone: [facility] 09-12-2022 10:16-0500 Body temperature 99 [degF] Kirill Noe PT Work Phone: [facility] 08-16-2022 08:45-0500 Body height 177.8 cm Pacc 2 Work Phone: [facility] 08-16-2022 08:45-0500 Body temperature 97.5 [degF] Pacc 2 Work Phone: [facility] 08-16-2022 08:45-0500 Body weight 104.33 kg Pacc 2 Work Phone: [facility] 08-16-2022 08:45-0500 Diastolic blood pressure 93 mm[Hg] Pacc 2 Work Phone: [facility] 08-16-2022 08:45-0500 Heart rate 83 /min Pacc 2 Work Phone: [facility] 08-16-2022 08:45-0500 Respiratory rate 18 /min Pacc 2 Work Phone: [facility] 08-16-2022 08:45-0500 SaO2% (BldA) [Mass fraction] 97 % Pacc 2 Work Phone: [facility] 08-16-2022 08:45-0500 Systolic blood pressure 132 mm[Hg] Pacc 2 Work Phone: [facility] 02-22-2022 13:15-0400 Body weight 105.23 kg Chika Carpenter MD Work Phone: [facility] 11-27-2019 04:50-0400 BP Diastolic 78 mm[Hg] Tray Townsend [place] 11-27-2019 04:50-0400 BP Systolic 148 mm[Hg] Tray Gutierrez [facility] , [place] 11-27-2019 04:50-0400 Pulse (Heart Rate) 80 /min Tray Gutierrez [facility], [place] 11-27-2019 04:50-0400 Pulse Oximetry 97 % Tray Gutierrez [facility] , [place] 11-27-2019 04:50-0400 Respiratory Rate 16 /min [facility] [place] 11-27-2019 03:34-0400 BMI (Body Mass Index) 33.72 kg/m2 Tray Gutierrez [facility], [place] 11-27-2019 03:34-0400 Body Temperature 97.7 [degF] [facility] [place] 11-27-2019 03:34-0400 Body weight 106.59 kg Tray Gutierrez [facility] , [place] 11-27-2019 03:34-0400 Height 177.8 cm Tray Gutierrez [facility] , [place] Encounters Encounter Date Encounter Type Care Provider Facility Start: 01-11-2025 End: 01-11-2025 ambulatory Timothy Correa MD Work Phone: [facility] Comment on above: [place] Start: 01-11-2025 End: 01-11-2025 E-mail encounter from caregiver Timothy Correa MD Work Phone: [facility] Start: 10-18-2024 End: 10-18-2024 ambulatory UNKNOWN PROVIDER Facility:[facility] Start: 10-14-2024 ambulatory UNKNOWN PROVIDER Facili ty:[facility] Start: 09-15-2024 End: 09-15-2024 Refill Timothy Correa MD Work Phone: [facility] Comment on above: Refill Start: 09-10-2024 End: 09-10-2024 ambulatory Timothy Correa Facility:[facility] Start: 09-07-2024 End: 09-07-2024 Telephone encounter Shy Oliver MA [facility] Comment on above: Outside Medical Miguel rds Received Start: 09-06-2024 End: 09-06-2024 Office outpatient visit 15 minutes Timothy Crorea MD Work Phone: [facility] Comment on above: LLQ abdominal mass ( Primary Dx); Body mass index (BMI) 34.0-34.9, adult Start: 09-06-2024 End: 09-06-2024 ambulatory UNKNOWN PROVIDER Facility:[facility] Start: 08-19-2024 ambulatory UNKNOWN PROVIDER Facili ty:[facility] Start: 08-16-2024 End: 08-17-2024 Refill Timothy Correa MD Work Phone: [facility] Comment on above: Refill Start: 08-16-2024 End: 10-31-2024 ambulatory TIMOTHY CORREA Facility:[facility] Start: 06-14-2024 End: 06-14-2024 ambulatory Adryan Pitt Facility:[facility] Start: 12-19-2023 Telephone encounter Hilaryizzy Mooreck [facility] Comment on above: Discuss results test /procedures; Reference 99 Start: 12-16-2023 End: 12-16-2023 Office outpatient visit 15 minutes Timothy Correa MD Work Phone: [facility] Comment on above: Left leg swelling (P rimary Dx) Start: 10-24-2023 Telephone encounter Timothy Correa MD Other Phone: [facility] Comment on above: Question about medic ation Start: 10-07-2023 Orders Only Timothy Correa MD Other Phone: [facility] Start: 10-06-2023 End: 10-06-2023 Patient encounter procedure Timothy Correa MD Other Phone: [facility] Work Phone: Start: 10-06-2023 End: 10-06-2023 Periodic preventive med est patient 40-64yrs Timothy Correa MD Other Phone: [facility] Comment on above: Annual physical exam (Primary Dx); B12 deficiency; Vitamin D deficiency; Type 2 diabetes mellitus without complication, without long-term current use of insulin (HCC); Encounter for long-term (current) use of medications; Pure hypercholesterolemia; Screening for malignant neoplasm of prostate; Essential hypertension, benign; Colon cancer screening Start: 09-24-2023 End: 09-24-2023 Emergency department patient visit TIMOTHY CORREA Facility:[facility] Start: 09-22-2023 Refill Timothy Correa MD Work Phone: [facility] Comment on above: Refill Start: 09-01-2023 Telephone encounter Timothy Coronado [facility] Start: 07-18-2023 End: 07-18-2023 ambulatory UNKNOWN PROVIDER Facility:[facility] Start: 07-18-2023 End: 07-18-2023 Subsequent hospital visit by physician Radio Sanchez Leota Omi Work Phone: Radiology Comment on above: Pain in left hip [M2 5.552] Start: 06-16-2023 Telephone encounter Chika Carpenter MD Work Phone: Orthopaedics Comment on above: Appointment Start: 06-13-2023 ambulatory Chika spence MD Work Phone: Orthopaedics Comment on above: Mobic non effective Start: 06-08-2023 Letter encounter Timothy Correa MD Work Phone: [facility] Start: 05-30-2023 End: 05-30-2023 ambulatory CHIKA CARPENTER Facility:[facility] Start: 05-30-2023 End: 05-30-2023 Patient encounter procedure Chika Carpenter MD Work Phone: Orthopaedics Comment on above: Pain due to internal orthopedic prosthetic devices, implants and grafts, initial encounter (HCC) (Primary Dx) Start: 05-23-2023 ambulatory Regla Higgins PA-C Work Phone: Orthopaedics Comment on above: bone scan Start: 05-23-2023 E-mail encounter fro m caregiver Regla Higgins PA-C Work Phone: [facility] Start: 05-23-2023 End: 05-23-2023 Subsequent hospital visit by physician Mfi Toño [facility] 1 Work Phone: Molecular Imaging Comment on above: Pain due to internal orthopedic prosthetic devices, implants and grafts, initial encounter (HCC) [T84.84XA] Start: 05-23-2023 End: 05-23-2023 Subsequent hospital visit by physician [facility] Toño [facility] 1 Work Phone: Molecular Imaging Comment on above: Pain due to internal orthopedic prosthetic devices, implants and grafts, initial encounter (HCC) [T84.84XA] Start: 05-20-2023 Telephone encounter Chika Carpenter MD Work Phone: Orthopaedics Comment on above: Appointment Start: 05-16-2023 End: 05-16-2023 ambulatory UNKNOWN PROVIDER Facility:[facility] Start: 05-16-2023 End: 05-16-2023 Office outpatient visit 15 minutes Regla Higgins PA-C Work Phone: Orthopaedics Comment on above: Pain due to internal orthopedic prosthetic devices, implants and grafts, initial encounter (HCC) (Primary Dx); S/P total knee replacement using cement, left; 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) Start: 05-16-2023 End: 05-16-2023 Subsequent hospital visit by physician General Leota Omi Work Phone: Radiology Comment on above: Status post total le ft knee replacement [Z96.652] Start: 05-14-2023 Orders Only Regla Higgins PA-C Work Phone: Orthopaedics Comment on above: Status post total le ft knee replacement (Primary Dx) Start: 04-24-2023 End: 04-24-2023 Office outpatient visit 15 minutes Timothy Correa MD Work Phone: [facility] Comment on above: Myalgia (Primary Dx) ; B12 deficiency; Vitamin D deficiency Start: 03-26-2023 Refill Timothy Correa MD Work Phone: [facility] Comment on above: Refill Start: 12-06-2022 End: 12-06-2022 ambulatory CHIKA CARPENTER Facility:[facility] Start: 12-06-2022 End: 12-06-2022 Patient encounter procedure Chika Carpenter MD Work Phone: Orthopaedics Comment on above: Aftercare following right knee joint replacement surgery (Primary Dx) Start: 11-19-2022 Telephone encounter Chika Carpenter MD Work Phone: [facility] Comment on above: Patient Question Start: 11-18-2022 ambulatory Chika spence MD Work Phone: Orthopaedics Comment on above: Return to work form Start: 11-18-2022 E-mail encounter fro m caregiver Chika Carpenter MD Work Phone: [facility] Start: 11-08-2022 Telephone encounter Chika Carpenter MD Work Phone: Orthopaedics Comment on above: Letter Start: 11-06-2022 End: 11-06-2022 ambulatory Tre Go PT, DPT Work Phone: [facility] Comment on above: Chronic pain of righ t knee (Primary Dx) Start: 10-30-2022 End: 10-30-2022 ambulatory Tre Go PT, DPT Work Phone: [facility] Comment on above: Chronic pain of righ t knee (Primary Dx) Start: 10-28-2022 End: 10-28-2022 ambulatory [facility] Comment on above: Chronic pain of righ t knee (Primary Dx) Start: 10-25-2022 End: 10-25-2022 ambulatory TIMOTHY CHINO Facility:[facility] Start: 10-25-2022 End: 10-25-2022 Patient encounter procedure Cihka Carpenter MD Work Phone: Orthopaedics Comment on above: Aftercare following right knee joint replacement surgery (Primary Dx) Start: 10-24-2022 End: 10-24-2022 ambulatory Tre Go PT, DPT Work Phone: [facility] Comment on above: Chronic pain of righ t knee (Primary Dx) Start: 10-21-2022 End: 10-21-2022 ambulatory UNKNOWN PROVIDER Facility:[facility] Start: 10-21-2022 End: 10-21-[address] [facility] Comment on above: Chronic pain of righ t knee (Primary Dx) Start: 10-16-2022 End: 10-16-2022 ambulatory Tre Go PT, DPT Work Phone: [facility] Comment on above: Chronic pain of righ t knee (Primary Dx) Start: 10-15-2022 Telephone encounter Chika Carpenter MD Work Phone: Orthopaedics Comment on above: Appointment Start: 10-14-2022 End: 10-14-[address] [facility] Comment on above: Chronic pain of righ t knee (Primary Dx) Start: 10-10-2022 End: 10-10-2022 ambulatory UNKNOWN PROVIDER Facility:[facility] Start: 10-10-2022 End: 10-10-2022 ambulatory Ava Keita PT Work Phone: [facility] Comment on above: Chronic pain of righ t knee (Primary Dx); S/P total knee arthroplasty, right Start: 10-09-2022 Orders Only Timothy Correa MD Work Phone: [facility] Start: 10-07-2022 ambulatory Chika spenec MD Work Phone: Orthopaedics Comment on above: Physical therapy Start: 10-03-2022 Telephone encounter Serina Pinto [facility] Comment on above: Discuss results of e xam, other provider Start: 10-03-2022 End: 10-03-2022 Patient encounter procedure Timothy Correa MD Work Phone: [facility] Start: 10-03-2022 End: 10-03-2022 Periodic preventive med est patient 40-64yrs Timothy Correa MD Work Phone: [facility] Comment on above: Annual physical exam (Primary Dx); Vitamin D deficiency; B12 deficiency; Essential hypertension, benign; Type 2 diabetes mellitus without complication, without long-term current use of insulin (HCC); Encounter for long-term (current) use of medications; Pure hypercholesterolemia; Screening for malignant neoplasm of prostate; Need for hepatitis C screening test Start: 10-02-2022 End: 10-02-2022 ambulatory UNKNOWN PROVIDER Facility:[facility] Start: 10-02-2022 End: 10-02-2022 ambulatory Tre Go PT, DPT Work Phone: [facility] Comment on above: Pain in right hip; Chronic pain of right knee Start: 09-30-2022 End: 09-30-2022 Home visit Kirill Noe PT Work Phone: [facility] Comment on above: PT AGENCY DC W VISIT Start: 09-26-2022 End: 09-26-2022 Home visit Kirill Noe PT Work Phone: [facility] Comment on above: PT ROUTINE Start: 09-25-2022 End: 09-25-2022 ambulatory UNKNOWN PROVIDER Facility:[facility] Start: 09-25-2022 End: 09-25-2022 Patient encounter procedure Matthieu Esparza PA-C Work Phone: Orthopaedics Comment on above: S/P total knee arthr oplasty, right (Primary Dx) Start: 09-25-2022 End: 09-25-2022 Subsequent hospital visit by physician Radio Sanchez [facility] Work Phone: Radiology Comment on above: Right knee pain, uns pecified chronicity [M25.561] Start: 09-23-2022 End: 09-23-2022 Home visit Kirill Noe PT Work Phone: [facility] Comment on above: PT ROUTINE Start: 09-20-2022 End: 09-20-2022 Home visit Kirill Noe PT Work Phone: [facility] Comment on above: PT ROUTINE Start: 09-18-2022 End: 09-18-2022 Home visit Kirill Noe PT Work Phone: [facility] Comment on above: PT ROUTINE Start: 09-16-2022 End: 09-16-2022 Home visit Kirill Noe PT Work Phone: [facility] Comment on above: PT ROUTINE Start: 09-14-2022 End: 09-14-2022 Home visit Trupti Bar CUSTOMER SUCCESS DIRECTOR Work Phone: [facility] Comment on above: CUSTOMER SUCCESS DIRECTOR UNMADE VISIT Start: 09-14-2022 Telephone encounter Trupti Montgomery on CUSTOMER SUCCESS DIRECTOR Work Phone: [facility] Comment on above: Home Care (Unmade PT visit ) Start: 09-12-2022 Telephone encounter Chika Carpenter MD Work Phone: [address] Comment on above: Patient Update Start: 09-12-2022 End: 09-12-2022 Home visit Kirill Noe PT Work Phone: [facility] Comment on above: PT SOC Start: 09-11-2022 Telephone encounter Sanaz MOBLEY S [facility] Comment on above: Home Care (Confirmat ion call) Start: 09-10-2022 Letter encounter Timothy Correa MD Work Phone: [facility] Start: 09-10-2022 End: 09-11-2022 ambulatory UNKNOWN PROVIDER Facility:[facility] Start: 09-10-2022 End: 09-10-2022 Subsequent hospital visit by physician [facility] Radiology Comment on above: Primary osteoarthrit is of right knee [M17.11] Start: 09-09-2022 Telephone encounter Chika Carpenter MD Work Phone: Orthopaedics Comment on above: Appointment Start: 09-07-2022 ambulatory UNKNOWN PROVIDER Facili ty:[facility] Start: 09-07-2022 Encounter for other preprocedural examination UNKNOWN PROVIDER [facility] Start: 09-07-2022 End: 09-07-2022 [facility] Start: 09-07-2022 End: 09-07-2022 Subsequent hospital visit by physician [facility] Radiology Comment on above: Primary osteoarthrit is of right knee [M17.11] Start: 09-04-2022 ambulatory Chika spence MD Work Phone: Orthopaedics Comment on above: Forms Start: 09-04-2022 E-mail encounter danny m caregiver Chika Carpenter MD Work Phone: [facility] Start: 09-03-2022 Telephone encounter Chika Carpenter MD Work Phone: Orthopaedics Comment on above: Forms Start: 08-26-2022 Refill Timothy Correa MD Work Phone: [facility] Comment on above: Refill Start: 08-22-2022 Patient encounter status Zechariah Carpenter MD Work Phone: Orthopaedics Start: 08-22-2022 Telephone encounter Chika Carpenter MD Work Phone: Orthopaedics Comment on above: Orders Start: 08-20-2022 Telephone encounter Chika Carpenter MD Work Phone: [address] Comment on above: Pre-Op Teaching Start: 08-16-2022 End: 08-17-2022 ambulatory UNKNOWN PROVIDER Facility:[facility] Start: 08-16-2022 Encounter for other preprocedural examination UNKNOWN PROVIDER [facility] Start: 08-16-2022 End: 08-16-2022 Admission to establishment [place] [address] Work Phone: [facility] Start: 08-16-2022 End: 08-16-2022 ambulatory [place] [address] Work Phone: Pre Anesthesia Comment on above: [...] Anesthesia Start: 08-02-2022 ambulatory UNKNOWN PROVIDER Facili ty:[facility] Start: 08-02-2022 End: 08-02-2022 Patient encounter procedure Chika Carpenter MD Work Phone: Orthopaedics Comment on above: 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 (Primary Dx) Start: 08-02-2022 End: 08-02-2022 Subsequent hospital visit by physician Radio Sanchez [facility] Work Phone: Radiology Comment on above: Right shoulder pain, unspecified chronicity [M25.511] Start: 07-29-2022 Refill Timothy Correa MD Work Phone: [facility] Comment on above: Refill Start: 07-19-2022 End: [...] Orders Only Timothy Correa MD Work Phone: [facility] Start: 03-04-2022 ambulatory Chika spence MD [...] 11-15-2021 ambulatory Kusum barraza RN Work Phone: [facility] Care Management/Patient Access Start: 11-15-2021 Coordination of care plan Kusum Reid RN Work Phone: [facility] Care Management/Patient Access Comment on above: Care Coordination; H ealt Maintenance Outreach; Medical Record Review Start: 04-25-2020 End: 04-25-2020 Subsequent hospital visit by physician Lena Liao Work Phone: [facility] Comment on above: Arrived Start: 03-27-2020 End: 03-27-2020 Subsequent hospital visit by physician Awilda Vivas Work Phone: [employer] [facility] [employer] Comment on above: Acute pain of right [...] above: Order Comment: The B josé manuel Schriever Access DxI Total???Prostate Specific Antigen???(PSA) method is [...] C H8, HEPATIC, HDL, PSA ####[facility] [id number] [place], [address] Start: 10-06-2023 3 comp foot exam completed [...] Comment: Speci men Type: BLOOD SPECIMENOrdering Facility: [facility] Address: [place] [address] Performed By: #### T [id number] ####[facility] [id number] [place] [address] [place] Start: 08-02-2022 Arthrocentesis aspir [...] RSV Vaccine (1 - 1-dose 75+ series) [facility] Start: 2034 RSV vaccine (adult) (1 - 1-dose 75+ series) RSV vaccine (adult) (1 - 1-dose 75+ series) [facility] Start: 10-02-2026 PROSTATE CANCER SCREENING DISCUSSION PROSTATE CANCER SCREENING DISCUSSION [facility] Start: 10-02-2026 Prostate specific antigen measurement Prostate Cancer Screening Discussion [facility] Start: 12-07-2025 DTaP/Tdap/Td vaccine (3 - Td) DTaP/Tdap/Td vaccine (3 - Td) [place], [place] Start: 12-07-2025 Tetanus vaccination [facility] Start: 12-07-2025 Urine microalbumin profile DTaP,Tdap,Td Vaccine (3 - Td or Tdap) [facility] Start: 10-18-2025 Diabetic foot examination Foot [...] procedure 10/07/2024 8:00 AM EST Office Visit [facility] [address] [place] [address] Timothy Correa MD [address] [place] [address] [facility] Start: 10-06-2024 Creatinine measurement Basic [facility] Start: 10-06-2024 Diabetic foot examination Foot Exam [facility] Start: 10-06-2024 Glaucoma screening Eye Exam [facility] Start: 10-06-2024 Lipid panel Lipid Profile [facility] Start: 10-06-2024 Prostate specific antigen measurement [facility] (shared decision making) [facility] Start: 10-06-2024 Urine screening for protein [facility] Start: 09-24-2024 Creatinine measurement Basic Metabolic Panel [facility] Start: 08-19-2024 End: 08-19-2024 Professional / ancillary services management 08/19/2024 2:00 PM EST Ancillary Procedure [facility] [address] [place] [address] [facility] Start: 08-12-2024 Welcome to Medicare Visit (G0402) Welcome to Medicare Visit (G0402) [facility] Start: 04-11-2024 Covid-19 Vaccine ( season) Covid-19 Vaccine ( season) [facility] Start: 04-11-2024 Covid-19 Vaccine ( season) Covid-19 Vaccine ( season) [facility] Start: 04-11-2024 Influenza vaccination Influenza Vaccine (#1) [facility] Start: 04-05-2024 Hemoglobin A1c measurement Hemoglobin A1C [facility] Start: 2024 Abdominal aortic aneurysm screening Abdominal Aortic Aneurysm Imaging [facility] Start: 2024 Advance Directive Discussion Advance Directive Discussion [facility] Start: 2024 Pneumococcal vaccination Pneumococcal Vaccine(s) (2 of 2 - PPSV23) [facility] Start: 10-06-2023 End: 10-06-2023 Patient encounter procedure 10/06/2023 8:00 AM EST Office Visit [facility] [address] [place] [address] Timothy Correa MD [address] [place] [address] [facility] Start: 10-03-2023 Diabetic foot examination Foot [facility]am [facility] Start: 10-03-2023 Hepatitis B surface antibody level LDL CHOLESTEROL [facility] Start: 10-03-2023 Lipid panel Lipid Profile [facility] Start: 10-03-2023 Urine screening for protein Microalbumin [facility] Start: 09-18-2023 BP CONTROLLED (<130/80) BP CONTROLLED (<130/80) [facility] Start: 09-16-2023 BP CONTROLLED (<130/80) BP CONTROLLED (<130/80) [facility] Start: 09-12-2023 BP CONTROLLED (<130/80) BP CONTROLLED (<130/80) [facility] Start: 09-11-2023 Basic metabolic 2000 panel - Serum or Plasma Basic Metabolic Panel [facility] Start: 09-11-2023 Creatinine measurement Basic Metabolic Panel [facility] Start: 09-08-2023 End: 09-08-2023 Patient encounter procedure 09/08/2023 8:20 AM EST Office Visit [facility] [address] [place] [address] Timothy Correa MD [address] [place] [address] [facility] Start: 08-16-2023 Basic metabolic 2000 panel - Serum or Plasma Basic Metabolic Panel [facility] Start: 07-18-2023 PROSTATE CANCER SCREENING DISCUSSION PROSTATE CANCER SCREENING DISCUSSION [facility] Start: 05-11-2023 Influenza vaccination Influenza Vaccine (#1) [facility] Start: 04-11-2023 Covid-19 Vaccine () Covid-19 Vaccine () [facility] Start: 04-11-2023 Influenza vaccination [facility] Start: 02-13-2023 Hemoglobin A1c measurement [facility] Start: 02-13-2023 Hemoglobin A1c/Hemoglobin.total in Blood HBA1C [facility] Start: 11-07-2022 Diabetic retinal eye exam [facility] Start: 11-07-2022 Glaucoma screening [facility]am [facility] Start: 10-03-2022 End: 10-03-2022 Patient encounter procedure 10/03/2022 [facility] Timothy Correa MD [address] [place] [address] [facility] Start: 10-02-2022 Basic metabolic 2000 panel - Serum or Plasma Basic Metabolic Panel [facility] Start: 10-02-2022 Lipid panel Lipid Profile [facility] Start: 10-02-2022 Urine screening for protein [facility]albumin [facility] Start: 08-29-2022 End: 08-29-2022 Patient encounter procedure 08/29/2022 [facility] Timothy Correa MD [address] [place] [address] [facility] Start: 08-11-2022 DEPRESSION ASSESSMENT DEPRESSION ASSESSMENT [facility] Start: 06-28-2022 Diabetic foot examination Foot [facility]am [facility] Start: 05-11-2022 Influenza vaccination Influenza Vaccine (#1) [facility] Start: 04-11-2022 Influenza vaccination INFLUENZA (#1) [facility] Start: 04-01-2022 Hemoglobin A1c measurement Hemoglobin A1C [facility] Start: 01-23-2022 Diabetic retinal eye exam [facility] Start: 12-11-2021 COVID-19 Vaccine (3 - Booster for Moderna series) COVID-19 Vaccine (3 - Booster for Moderna series) [facility] Start: 09-07-2021 COVID-19 VACCINE (3 - Booster for Moderna series) COVID-19 VACCINE (3 - Booster for Moderna series) [facility] Start: 09-07-2021 COVID-19 Vaccine (3 - Moderna series) COVID-19 Vaccine (3 - Moderna series) [facility] Start: 08-11-2021 DEPRESSION ASSESSMENT DEPRESSION ASSESSMENT [facility] Start: 11-26-2020 Creatinine measurement Creatinine monitoring [facility], [place] Start: 11-26-2020 Potassium monitoring Potassium monitoring [place], [place] Start: 08-09-2020 [object Object] Diabetic foot exam [place], [place] Start: 08-09-2020 A1C test (Diabetic or Prediabetic) A1C test (Diabetic or Prediabetic) [place] Start: 08-09-2020 Creatinine monitoring Creatinine monitoring [place], [place] Start: 08-09-2020 Diabetic foot examination Diabetic foot exam [place], [place] Start: 08-09-2020 Diabetic microalbuminuria test Diabetic microalbuminuria test [place], [place] Start: 08-09-2020 HbA1c (Bld) [Mass fraction] A1C test (Diabetic or Prediabetic) [place], [place] Start: 08-09-2020 Lipid panel Lipid screen [place], [place] Start: 08-09-2020 Lipid screen Lipid screen [place] Start: 08-09-2020 Potassium monitoring Potassium monitoring [place], [place] Start: 04-11-2020 Influenza vaccination [place] Start: 07-18-2019 Diabetic retinal exam Diabetic retinal exam [place] Start: 2019 Hepatitis B (HBV) Vaccine (optional start 60+ years) Hepatitis B (HBV) Vaccine (optional start 60+ years) [facility] Start: 2019 Hepatitis B Vaccine (1 of 3 - Risk 3-dose series) Hepatitis B Vaccine (1 of 3 - Risk 3-dose series) [facility] Start: 2019 RSV Vaccine (1 - 1-dose 60+ series) RSV Vaccine (1 - 1-dose 60+ series) [facility] Start: 2019 RSV vaccine (adult) (1 - Risk 60-74 years 1-dose series) RSV vaccine (adult) (1 - Risk 60-74 years 1-dose series) [facility] Start: 2019 RSV vaccine (optional 60+ years) RSV vaccine (optional 60+ years) [facility] Start: 01-16-2019 Hemoglobin A1c/Hemoglobin.total in Blood HBA1C [facility] Start: 03-22-2018 Pneumococcal vaccination [facility] Start: 03-22-2018 Pneumococcal Vaccine: 65+ (2 of 2 - PCV) Pneumococcal Vaccine: 65+ (2 of 2 - PCV) [facility] Start: 2009 Colon cancer screen colonoscopy Colon cancer screen colonoscopy [place], [place] Start: 2009 Measurement of occult blood in single stool specimen FIT [facility] Start: 2009 Screening for malignant neoplasm of colon [facility] Start: 2009 Shingles Vaccine (1 of 2) Shingles Vaccine (1 of 2) [place], [place] Start: 2009 SHINGRIX VACCINE (1 of 2) SHINGRIX VACCINE (1 of 2) [facility] Start: 2009 Varicella-zoster vaccine (product) Shingles (RZV) Vaccine (1 of 2) [facility] Start: 2004 COLOGUARD (FIT-DNA) COLOGUARD (FIT-DNA) [facility] Start: 2004 Colonoscopy COLONOSCOPY [facility] Start: 2004 COLORECTAL CANCER SCREENING COLORECTAL CANCER SCREENING [facility] Start: [address] COLONOGRAPHY [facility] Start: 2004 FECAL OCCULT BLOOD FECAL OCCULT BLOOD [facility] Start: 2004 Screening for malignant neoplasm of colon [facility] Start: 2004 SIGMOIDOSCOPY SIGMOIDOSCOPY [facility] Start: 1978 Hepatitis A (HAV) Vaccine (optional start 19+ years) Hepatitis A (HAV) Vaccine (optional start 19+ years) [facility] Start: 1978 Urine microalbumin profile [facility] Start: 1977 ANNUAL PCP TEAM CHRONIC DISEASE VISIT ANNUAL PCP TEAM CHRONIC DISEASE VISIT [facility] Start: 1977 Anxiety Screening Anxiety Screening [facility] Start: 1977 BP CONTROLLED (<130/80) BP CONTROLLED (<130/80) [facility] Start: 1977 Depression Screening Depression Screening [facility] Start: 1977 Hepatitis B surface antibody level LDL CHOLESTEROL [facility] Start: 1977 Hepatitis C screening Hepatitis C Antibody [facility] Start: 1977 HEPATITIS C SCREENING HEPATITIS C SCREENING [facility] Start: 1977 HIV SCREENING HIV SCREENING [facility] Start: 1977 HIV screening HIV Screening [facility] Start: 1971 Adult depression screening assessment DEPRESSION SCREENING [facility] Start: 1969 3 comp foot exam completed DIABETIC FOOT EXAM [facility] Start: 1969 Diabetic foot examination Diabetic Foot Exam [facility] Start: 1969 Glaucoma screening Dilated Retinal Exam [facility] Start: 1969 Hepatitis B screening URINE ALBUMIN:CREATININE RATIO [facility] Start: 1969 Hepatitis C antibody, confirmatory test DILATED RETINAL EXAM [facility] Start: 1965 PNEUMOCOCCAL (1 - PCV) PNEUMOCOCCAL (1 - PCV) [facility] Start: 1965 Pneumococcal vaccination Pneumococcal Vaccine (1 - PCV) [facility] Start: 1959 Abdominal aortic aneurysm screening Abdominal Aortic Aneurysm Screening [facility] Start: 1959 Screening for malignant neoplasm of colon [facility] includes fractions if performed VITAMIN D, 25-HYDROXY Lab Routine Vitamin D deficiency Ordered: 10/03/2022 [facility] Comment on above: Ordered: 10/03/2022 25 hydroxy includes fractions if performed VITAMIN D, 25-HYDROXY Lab Routine Vitamin D deficiency Ordered: 10/06/2023 [facility] [employer] Work Phone: Comment on above: Ordered: 10/06/2023 Assay of gammaglobul in iga igd igg igm each MICROALBUMIN, URINE Lab Routine Type 2 diabetes mellitus without complication, without long-term current use of insulin (HCC) Ordered: 10/03/2022 [employer] Work Phone: Comment on above: Ordered: 10/03/2022 Assay of gammaglobul in iga igd igg igm each MICROALBUMIN, URINE Lab Routine Type 2 diabetes mellitus without complication, without long-term current use of insulin (HCC) Ordered: 10/06/2023 [facility] [employer] Work Phone: Comment on above: Ordered: 10/06/2023 Assay of thyroid stimulating hormone tsh TSH Lab Routine Pure hypercholesterolemia Ordered: 10/03/2022 [employer] Comment on above: Ordered: 10/03/2022 Assay of thyroid stimulating hormone tsh TSH Lab Routine Pure hypercholesterolemia Ordered: 10/06/2023 [employer] Work Phone: Comment on above: Ordered: 10/06/2023 Basic metabolic 2000 panel - Serum or Plasma BASIC METABOLIC PANEL Lab Routine Encounter for long-term (current) use of medications Ordered: 10/06/2023 [employer] Work Phone: Comment on above: Ordered: 10/06/2023 Blood count complete auto&auto difrntl wbc CBC WITH DIFFERENTIAL Lab Only Routine Encounter for long-term (current) use of medications Ordered: 10/06/2023 [employer] Work Phone: Comment on above: Ordered: 10/06/2023 Blood occult fecal h gb deter ia qual feces 1-3 FECAL IMMUNOCHEMICAL TEST (FIT) Lab Routine Colon cancer screening Ordered: 04/18/2022 [employer] Work Phone: Comment on above: Ordered: 04/18/2022 End: 06-14-2024 Bone &/joint imaging 3 phase study NM BONE 3 PHASE Radiology Routine Pain due to internal orthopedic prosthetic devices, implants and grafts, initial encounter ([facility]) S/P total knee replacement using cement, left 1 Occurrences starting 05/16/2023 until 06/14/2024 [facility] Work Phone: Comment on above: 1 Occurrences starting 05/16/2023 until 06/14/2024 CBC W Auto Different ial panel - Blood COMPLETE BLOOD COUNT W/DIFF Lab Routine Encounter for long-term (current) use of medications Ordered: 10/06/2023 [employer] Work Phone: Comment on above: Ordered: 10/06/2023 End: 09-07-2022 Ct lower extremity w/o contrast material [facility] Work Phone: Comment on above: 1 Occurrences starting 09/07/2022 until 09/07/2022 End: 10-09-2023 Ct lower extremity w/o contrast material CT KNEE WO IVCON RT Radiology Routine Primary osteoarthritis of right knee 1 Occurrences starting 09/09/2022 until 10/09/2023 [facility] Work Phone: Comment on above: 1 Occurrences starting 09/09/2022 until 10/09/2023 Ct lower extremity w /o contrast material CT KNEE WO IVCON RT Radiology Routine Primary osteoarthritis of right knee 09/10/2022 6:57 AM EST [facility] Work Phone: End: 04-25-2020 CT LUMBAR SPINE WO CONTRAST CT LUMBAR SPINE WO CONTRAST Imaging Routine Once for 1 Occurrences starting 04/25/2020 until 04/25/[address] [facility] Comment on above: Once for 1 Occurrences starting 04/25/20 20 until 04/25/2020 CT LUMBAR SPINE WO CONTRAST CT LUMBAR SPINE WO CONTRAST Imaging Routine 04/25/2020 9:04 AM EDT [facility] Cyanocobalamin vitam in b-12 VITAMIN B12 (CYANOCOBALAMIN) Lab Routine B12 deficiency Ordered: 10/03/2022 [employer] Comment on above: Ordered: 10/03/2022 Cyanocobalamin vitam in b-12 VITAMIN B12 (CYANOCOBALAMIN) Lab Routine B12 deficiency Ordered: 10/06/2023 [facility] [employer] Work Phone: Comment on above: Ordered: 10/06/2023 Diabetes tracking panel HEMOGLOB IN A1C Lab Routine Type 2 diabetes mellitus without complication, without long-term current use of insulin (HCC) Ordered: 10/06/2023 [facility] [employer] Work Phone: Comment on above: Ordered: 10/06/2023 EKG 12 Lead EKG 12 Lead ECG STAT 11/27/2019 3:34 AM EDT [facility] Hepatic function panel HEPATIC F UNCTION PANEL Lab Routine Encounter for long-term (current) use of medications Ordered: 10/06/2023 [employer] Work Phone: Comment on above: Ordered: 10/06/2023 Hepatitis C virus Ab [Units/volume] in Serum by Immunoassay HEPATITIS C ANTIBODY Lab Routine Need for hepatitis C screening test Ordered: 10/03/2022 [employer] Comment on above: Ordered: 10/03/2022 Initiate Oxygen Ther apy Protocol Initiate Oxygen Therapy Protocol Respiratory Care Routine Daily until discontinued starting 11/27/2019, 2 completed [facility] Comment on above: Daily until discontinued starting 2019, 2 completed LAB COLOGUARD COLON CANCER SCREEN LAB COLOGUARD COLON CANCER SCREEN Lab Routine Colon cancer screening Ordered: 10/06/2023 [facility] [employer] Work Phone: Comment on above: Ordered: 10/06/2023 Lipid 1996 panel - S sheldon or Plasma FULL LIPID PROFILE Lab Routine Pure hypercholesterolemia Ordered: 10/03/2022 [employer] Comment on above: Ordered: 10/03/2022 Lipid 1996 panel - S sheldon or Plasma FULL LIPID PROFILE Lab Routine Pure hypercholesterolemia Ordered: 10/06/2023 [employer] Work Phone: Comment on above: Ordered: 10/06/2023 End: 03-22-2020 MRI LUMBAR SPINE W WO CONTRAST MRI LUMBAR SPINE W WO CONTRAST Imaging Routine Once for 1 Occurrences starting 03/22/2020 until 03/22/2020 [place], [place] Comment on above: Once for 1 Occurrences starting 03/22/20 20 until 03/22/2020 MRI LUMBAR SPINE W W O CONTRAST MRI LUMBAR SPINE W WO CONTRAST Imaging Routine 03/22/2020 12:52 PM EDT [employer], [place] Prostate specific Ag panel - Serum or Plasma PROSTATE SPECIFIC ANTIGEN (PSA) Lab Routine Screening for malignant neoplasm of prostate Ordered: 10/06/2023 [employer] Work Phone: Comment on above: Ordered: 10/06/2023 End: 03-03-2023 XR KNEE GENERAL 4V AP BOTH/PA BOTH/LAT/MERC BILATERAL XR KNEE GENERAL 4V AP BOTH/PA BOTH/LAT/MERC BILATERAL Radiology Routine Pain 1 Occurrences starting 02/01/2022 until 03/03/2023 [facility] Work Phone: Comment on above: 1 Occurrences starting 02/01/2022 until 03/03/2023 End: 06-12-2024 XR KNEE POST 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 XR KNEE POST 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 Radiology Routine Status post total left knee replacement 1 Occurrences starting 05/14/2023 until 06/12/2024 [facility] Work Phone: Comment on above: 1 Occurrences starting 05/14/2023 until 06/12/2024 [facility] Immunizations Immunization Date Immunization Notes Care Provider Fa [facility] 10-18-2024 Pneumococcal conjuga te 20 valent (PCV20), polysaccharide CVB255 conjugate, adjuvant, PF (IKT=027) Timothy Correa MD Work Phone: [facility] 10-14-2024 Hemoglobin A1C Timothy Correa MD Work Phone: [facility] 10-06-2023 Hemoglobin A1C Timothy Correa MD Other Phone: [facility] Work Phone: 08-16-2022 Hemoglobin A1C Timothy Correa MD Work Phone: [facility] 08-10-2022 influenza, high dose seasonal, preservative-free [facility] 08-10-2022 influenza virus vacc ine, unspecified formulation Timothy Correa MD Work Phone: [facility] 10-02-2021 Hemoglobin A1C Kusum Reid RN Work Phone: [facility] 07-13-2021 Moderna Monovalent ( 12+ yrs) COVID-19 vaccine, mRNA, spike protein, LNP, PF, 100 mcg/0.5 mL (XXZ=160) Timothy Correa MD Work Phone: [facility] 06-06-2021 influenza, injectabl e, quadrivalent, preservative free Kusum Reid RN Work Phone: [facility] 06-06-2021 influenza virus vacc ine, unspecified formulation Timothy Correa MD Work Phone: [facility] 06-05-2021 Moderna Monovalent ( 12+ yrs) COVID-19 vaccine, mRNA, spike protein, LNP, PF, 100 mcg/0.5 mL (BYV=886) Timothy Correa MD Work Phone: [facility] 03-22-2017 pneumococcal polysaccharide vaccine, 23 valent Tray Townsend [facility] 12-08-2015 tetanus toxoid, redu froilan diphtheria toxoid, and acellular pertussis vaccine, adsorbed Tray Townsend [facility] 08-30-1999 tetanus toxoid, redu froilan diphtheria toxoid, and acellular pertussis vaccine, adsorbed T[facility], [facility] zoster vac recomb adjuvanted (SHINGRIX) 50 MCG/0.5ML SUSR injection Timothy Correa MD Work Phone: [facility] Payers Date Payer Category Payer Medicare FFS MEDICARE [id number] 2024 Medicare [id number] 2024 Self-pay 2014 Unknown BCBS [place] - [place] P PO xxxxxxxxxxxx 2014-Present [address] [place] [address] xxxxxxxxxxxx [id number] 2004 Blue Cross Blue Shield ANTH - BLUE CROSS [id number] 2004 Unknown [id number] 2004 Unknown ANTHEM BLUE CARD PPO OOS [id number] 2004-Present [phone] [address] [place] [address] PPO [id number] 2004 Unknown [id number] 1959 Unknown [id number] 1959 Unknown [id number] 1959 Unknown [id number] 1959 Unknown [id number] 1959 Unknown [id number] 732 Unknown [id number] Unknown [id number] Social History Date Type Detail Facility Start: 11-09-2019 End: 04-24-2023 Tobacco smoking status NHIS Former smoker [place], [place] Start: 08-09-2019 History SDOH Financial 5 [place] Start: 08-09-2019 End: 12-22-2019 History SDOH Food Worry 1 [place], [place] Start: 08-09-2019 End: 12-22-2019 History SDOH Transport Med 2 [place], [place] Start: 1960 Sex Assigned At Not on file M [place], [place] Exposure to SARS-CoV -2 (event) Unable to assess [place] Start: 03-27-2020 End: 04-24-2023 [facility] 2020 End: 03-27-2020 Alcohol intake Current drinker of alcohol (finding) [place] Start: 03-27-2020 History SDOH Social Connections Phone 3 [place] Start: 03-27-2020 History SDOH Physica l Activity DPW 0 [place] Start: 02-12-2022 End: 10-03-2022 Exposure to SARS-CoV-2 (event) Not sure [place] Start: 07-15-1983 End: 07-15-2013 History of tobacco use Current smoker [facility] Start: 07-15-1983 End: 07-15-2013 History of tobacco use Cigarette Smoker [facility] Start: 07-15-2014 End: 08-12-2024 Cigarettes smoked current (pack per day) - Reported 0.1 [facility] Start: 07-18-2021 End: 06-21-2022 Alcohol intake Ex-drinker (finding) [facility] Start: 10-25-2020 History SDOH Alcohol Comment not weekly [facility] Start: 10-25-2022 End: 08-12-2024 Gender identity Not on file [facility] National Score (1-10 0), lower number is lower risk 41 [facility] Are you now , , , , never or living with a partner? [facility] Start: 05-23-2020 Sex Male (finding) [facility] Medical Equipment Procedure Code Equipment Code Equipment Origin al Text Equipment Identifier Dates Renaldo Bn Smplx Hv Fd - [id number] Start: 08-09-2014 Comment on above: Description: Farhat Royal HV Full Dose US Comp Fem 5 Lt Kn Cr Renaldo Trthln - [id number] Start: 08-09-2014 Ins Tib 6 11mm X 3 Cs Trthln - [id number] Start: 08-09-2014 Comp Pat 10mm 35 mm Asym Trthln - [id number] Start: 08-09-2014 Baseplt Tib Trth ln 6 Prim - [id number] Start: 08-09-2014 Component Triathlon 5 Pa Femoral Cruciate Retain Bead Knee Right - [id number] Start: 09-10-2022 Component Tritanium 35mm Metal 10mm Patellar Asymmetric Knee - [id number] Start: 09-10-2022 Insert Triathlon 6 9mm Tibial Bearing Condylar Stabilize Sterile Knee - [id number] Start: 09-10-2022 Baseplate Triathlon 6 Tritanium 09x50dm Tibial 4 Cruciform Peg Keel Knee - [id number] Start: 09-10-2022 Goals Date Patient Goal [...] on: 01/17/2025 09:15 PM Modules accepted: Orders [facility] 01-17-2025 Miscellaneous Notes Addended by: TIMOTHY CORREA on: 01/17/2025 09:15 PM Modules accepted: Orders documented in this encounter [facility] 09-08-2024 Telephone encounter Note Situation: calling asking for images of CT to be forwarded to their office. Background: na Assessment: na Recommendation: provided with number to medical records and call [phone] Miscellaneous Notes Situation: calling asking for images of CT to be forwarded to their office. Background: na Assessment: na Recommendation: provided with number to medical records and call was transferred [phone] here at office window, Requesting that previous [address] report be faxed to [facility] with referral order. Records printed and faxed as requested. Nothing further needed at this time documented in this encounter [facility] 09-07-2024 Note here at office window, Requesting that previous [address] report be faxed to [facility] with referral order. Records printed and faxed as requested. Nothing further needed at this time [facility] [facility] 09-07-2024 Telephone encounter Note here at office window, Requesting that previous [address] report be faxed to [facility] with referral order. Records printed and faxed as requested. Nothing further needed at this time [facility] History of Present illness Narrative Images [...] EXTERNAL SERVICE REQUEST FOR CARE OUTSIDE [facility] Patient was identified by name and date of . Jeanie Perkins MA documented in this encounter [facility] 12-25-2023 Telephone encounter Note Pt's stopped in. Pt already sees Debbie Miranda at [facility] next week. Pt will discuss this with her. If pt needs anything else, they will let us know. [facility] 12-25-2023 Miscellaneous Notes Pt's stopped in. Pt already sees Debbie Miranda at [facility] next week. Pt will discuss this with her. If pt needs anything else, they will let us know. Attempted to contact patient. Left voicemail message on listed contact # to call [facility] [facility] at [phone]. Asked patient to reference #[phone] when calling back to our office. Ok to relay message below. See provider's note and assist pt with scheduling with PM&R delilah and also put on wait list if there is nothing soon. Pt's stopped in. Wants to know what next steps are. [facility] US was negative for DVT. Pt is in pain. Please advise. documented in this encounter [facility] 12-23-2023 Telephone encounter Note Attempted to contact patient. Left voicemail message on listed contact # to call [facility] [facility] at [phone]. Asked patient to reference #99 when calling back to our office. Ok to relay message below. See provider's note and assist pt with scheduling with PM&R delilah and also put on wait list if there is nothing soon. [facility] 12-19-2023 Telephone encounter Note Pt's stopped in. Wants to know what next steps are. They will look on MyChart for results of labs. US was negative for DVT. Pt is in pain. Please advise. [facility] 12-16-2023 History of Present illness Narrative [...] + DOPPLER; Future documented in this encounter [facility] 10-06-2023 History of Present illness Narrative [...] CANCER SCREEN documented in this encounter [facility] [employer] [facility] Work Phone: 09-01-2023 Telephone encounter Note [facility] has received a completed Stop-Bang Questionnaire related to WILIAM, lab work and EKG results from [facility]. Nothing for Dr. Correa to complete/sign. Scanned into Media and Dr. Correa notified on 09/01/2023. [facility] 09-01-2023 Miscellaneous Notes [facility] has received a completed Stop-Bang Questionnaire related to WILIAM, lab work and EKG results from [facility]. Nothing for Dr. Correa to complete/sign. Scanned into Media and Dr. Correa notified on 09/01/2023. documented in this encounter [facility] 08-14-2023 Note HNO ID: [id number] Author: CHIKA CARPENTER MD Service: ? Author Type: Physician Type: Progress Notes Filed: 08/14/2023 07:19 Note Text: DR. CAREPNTER- POST-OP KNEE Post-Op F/U Office Visit Robertoankush [...] in left hip .LEFT HIP PAIN (accession [id number]), RIGHT KNEE PAIN (accession [id number]) TECHNIQUE: XR AP PELVIS, CROSSTABLE LATERAL LEFT [...] is evident. Impression: IMPRESSION: No acute abnormality Revolving Inventory Clerk: [facility] Transcribe Date/Time: Jul 20 2023 1:19P Dictated [...] in left hip .LEFT HIP PAIN (accession [id number]), RIGHT KNEE PAIN (accession [id number]) TECHNIQUE: XR AP PELVIS, CROSSTABLE LATERAL LEFT [...] is evident. Impression: IMPRESSION: No acute abnormality Revolving Inventory Clerk: [facility] Transcribe Date/Time: Jul 20 2023 1:19P Dictated [...] orthopedic problems Chika Carpenter MD Electronic Signature [facility] 07-18-2023 Note HNO ID: [id number] Author: Samantha Aguirre Tech Service: ? Author Type: Employment Case Manager Type: Progress Notes Filed: 07/18/2023 8:27 AM [...] Emely Cavanaugh July 18, 2023 8:26 AM [facility] 07-18-2023 History of Present illness Narrative [...] 2023 8:26 AM documented in this encounter [facility] 06-27-2023 Note HNO ID: [id number] Author: Chika Carpenter MD Service: ? Author [...] Chika Carpenter M.D. Department of Orthopaedic Surgery [facility] 06-27-2023 History of Present illness Narrative REASON [...] Chika Carpenter M.D. Department of Orthopaedic Surgery [facility] documented in this encounter [facility] 06-16-2023 Miscellaneous Notes Please reschedule Roberto' appt to 06/20/23 at 11am and leave a message on the home phone to let them know per spouse Lien. documented in this encounter [facility] 05-23-2023 Note HNO ID: [id number] Author: Indio Samuel, [place] Service: Nuclear Medicine [...] 08:15 PATIENT DISCHARGED TO: Ambulatory patient, left AR department area. A Diagnostic radioactive procedure has taken place, with no further precautions necessary other than routine body substance precautions. More information regarding radiation safety can be found using this link: [email or web address]%20Medi cine%[email or web address] SIGNATURE: GERMAINE Gonzalez PATIENT NAME: Roberto Osborn DATE: May 23, 2023 TIME: 8:48 AM PAGER/CONTACT #: [facility] 05-23-2023 History of Present illness Narrative [...] DIAGNOSTIC CT PERFORMED: No IV SITE: Ambulatory: AR only - direct IV injection in the [...] safety can be found using this link: [email or web address] %20Medicine%[email or web address] SIGNATURE: GERMAINE Gonzalez PATIENT NAME: Roberto Osborn SR DATE: May 23, 2023 TIME: 8:48 AM PAGER/CONTACT #: documented in this encounter [facility] 05-20-2023 Miscellaneous Notes Scheduled and called Lien, ailyn voicemail message with appointment information. Please leave a voice mail at [phone] for spouse Lien for two appts for Roberto. He needs a bone scan result appt on 05/30. Please schedule in the am hold slot. Also the 08/06 appt needs rescheduled to 08/01 in the earliest am. Just let her know on the message what was done. documented in this encounter [facility] 05-16-2023 Note HNO ID: [id number] Author: Regla Higgins PA-C Service: ? Author Type: Physician Grants Director Type: Progress Notes Filed: 05/16/2023 8:05 AM [...] problems, patient instructed (more content not included)... [facility] 05-16-2023 Note HNO ID: [id number] Author: Samantha Aguirre Tech Service: ? Author Type: Employment Case Manager Type: Progress Notes Filed: 05/16/2023 7:22 AM [...] Emely Cavanaugh May 16, 2023 7:21 AM [facility] 05-16-2023 History of Present illness Narrative [...] No prescription given at today's appointment. Regla Higgnis PA-C documented in this encounter [facility] 05-16-2023 History of Present illness Narrative [...] 2023 7:21 AM documented in this encounter [facility] 04-24-2023 History of Present illness Narrative [...] protocol implemented: No documented in this encounter [facility] 01-27-2023 Note HNO ID: [id number] Author: Tre Go PT, DPT Service: ? [...] Achieved -Normal Gait---Partially Achieved -Reciprocal Stair Negotiation---Achieved [place] in home exercise program.---Achieved Patient will decrease [...] additional follow-up appointments. Tre Go, PT, DPT [facility] 12-17-2022 Note HNO ID: [id number] Author: Chika Carpenter MD Service: ? Author [...] clinical evaluation Chika Carpenter MD Electronic Signature [facility] 12-16-2022 History of Present illness Narrative DR. [...] MD Electronic Signature documented in this encounter [facility] 11-21-2022 Miscellaneous Notes This was done on 11/20/22. Keyla from patient's [employer] is requesting a copy of the return to work letter with detailed restrictions. I told her we sent something on 11/15, but that was just for his disability. They are asking for that same letter to be faxed to [phone]. Thank you! documented in this encounter [facility] 11-08-2022 Miscellaneous Notes Letter has been faxed and received. Regla Higgins PA-C Patient asking if he could have a return to work letter for light duty to begin on 11/18/22. If you agree, it would need to be faxed to [phone] ('s work), no cover sheet needed. documented in this encounter [facility] 11-06-2022 Note HNO ID: [id number] Author: Tre Go PT, DPT Service: ? [...] Minutes (timed/untimed): 40 Tre Go PT, DPT [facility] 11-06-2022 History of Present illness Narrative [...] Go PT, DPT documented in this encounter [facility] 10-30-2022 Note HNO ID: [id number] Author: Tre Go, PT, DPT Service: ? [...] Achieved -Normal Gait---Partially Achieved -Reciprocal Stair Negotiation---Achieved [place] in home exercise program.---Achieved Patient will decrease pain rating by 2 points to meet minimal clinical important difference for numeric pain rating scale.---Achieved Patient Goals: decrease pain, return to work, improve performance with mobility tasks.---partially Achieved Planned Interventions, Frequency, and Duration: 1x/week, 4 weeks Total Number of Visits Planned: 4 Patient to be seen for Therapeutic exercise (19785), Neuromuscular re-education (56362), Manual therapy (68989), Therapeutic activities (38058), Self-penitentiary management (44066), Gait Training (65517) SUBJECTIVE: Patient Reason for Visit: Pt may [...] Minutes (timed/untimed): 42 Tre Go, PT, DPT [facility] 10-30-2022 History of Present illness Narrative [...] Achieved -Normal Gait---Partially Achieved -Reciprocal Stair Negotiation---Achieved [place] in home exercise program.---Achieved Patient will decrease pain rating by 2 points to meet minimal clinical important difference for numeric pain rating scale.---Achieved Patient Goals: decrease pain, return to work, improve performance with mobility tasks.---partially Achieved Planned Interventions, Frequency, and Duration: 1x/week, 4 weeks Total Number of Visits Planned: 4 Patient to be seen for Therapeutic exercise (41161), Neuromuscular re-education (55221), Manual therapy (80366), Therapeutic activities (30982), Self-penitentiary management (56237), Gait Training (01566) SUBJECTIVE: Patient Reason for Visit: Pt may [...] Go PT, DPT documented in this encounter [facility] 10-28-2022 Note HNO ID: [id number] Author: Toy Coreas PTA Service: ? Author Type: Hospitalist Type: Progress Notes Filed: 10/28/2022 7:47 AM [...] Treatment Time Minutes (timed/untimed): 40 Toy Coreas [facility] 10-28-2022 History of Present illness Narrative [...] Toy Coreas PTA documented in this encounter [facility] 10-28-2022 Note HNO ID: [id number] Author: Chika Carpenter MD Service: ? Author [...] 6 weeks Chika Carpenter MD Electronic Signature [facility] 10-27-2022 History of Present illness Narrative Images [...] MD Electronic Signature documented in this encounter [facility] 10-24-2022 Note HNO ID: [id number] Author: Tre Go PT, DPT Service: ? [...] Minutes (timed/untimed): 44 Tre Go, PT, DPT [facility] 10-24-2022 History of Present illness Narrative [...] Go PT, DPT documented in this encounter [facility] 10-21-2022 Note HNO ID: [id number] Author: Toy Coreas PTA Service: ? Author Type: Hospitalist Type: Progress Notes Filed: 10/21/2022 3:42 PM [...] Treatment Time Minutes (timed/untimed): 43 Toy Coreas, [facility] 10-21-2022 History of Present illness Narrative [...] Toy Coreas PTA documented in this encounter [facility] 10-16-2022 Note HNO ID: [id number] Author: Tre Go PT, DPT Service: ? [...] Minutes (timed/untimed): 43 Tre Go, PT, DPT [facility] 10-16-2022 History of Present illness Narrative [...] Go PT DPT documented in this encounter [facility] 10-15-2022 Miscellaneous Notes LVM & sent MC asking patient to CB & R/S Thanks! documented in this encounter [facility] 10-14-2022 Note HNO ID: [id number] Author: Toy Coreas PTA Service: ? Author Type: Hospitalist Type: Progress Notes Filed: 10/14/2022 4:51 PM [...] Total Treatment Time Minutes (timed/untimed): [facility] History of Present illness Narrative [...] Toy Coreas PTA documented in this encounter [facility] 10-10-2022 Note HNO ID: [id number] Author: Ava Keita PT Service: ? Author [...] step up 2 x 4 inches B BRUISE TRIMMER 10: standing incline calf stretch 3 x [...] Time Minutes (timed/untimed): 42 Ava Keita PT [facility] 10-10-2022 History of Present illness Narrative [...] step up 2 x 4 inches B BRUISE TRIMMER 10: standing incline calf stretch 3 x [...] Ava Keita PT documented in this encounter [facility] 10-03-2022 History of Present illness Narrative [...] protocol implemented: No documented in this encounter [facility] 10-03-2022 Telephone encounter Note What is the need: Situation: Roberto Osborn's calling Background: states she if faxing lab results done while Roberto was in the hospital Assessment: she is faxing results from CBC, BMP, Iron Study and HgA1C Recommendation: is requesting that these labs not be redrawn if possible HgA1c CBC BMP Iron study [facility] 10-03-2022 Miscellaneous Notes What is the need: Situation: Roberto Osborn's calling Background: states she if faxing lab results done while Roberto was in the hospital Assessment: she is faxing results from CBC, BMP, Iron Study and HgA1C Recommendation: is requesting that these labs not be redrawn if possible HgA1c CBC BMP Iron study documented in this encounter [facility] 10-02-2022 Note HNO ID: [id number] Author: Tre Go PT, DPT Service: ? 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 Based on history , examination(knee, mobility, [...] contralateral side -Normal Gait -Reciprocal Stair Negotiation [place] in home exercise program. Patient will decrease pain rating by 2 points to meet minimal clinical important difference for numeric pain rating scale. Patient Goals: decrease pain, return to work, improve performance with mobility tasks. Planned Interventions, Frequency, and Duration: Current Frequency: 2x/week Duration: 4 weeks Total Number of Visits Planned: 8 Planned Treatment Interventions: Therapeutic exercise (40495), Neuromuscular re-education (60538), Manual therapy (82451), Therapeutic activities (72856), Self-penitentiary management (15279), Gait Training (72699) Patient demonstrates good understanding of plan of care and treatment. The above goals and plan of care were discussed and agreed upon by patient/family. SUBJECTIVE: Roberto Osborn SR is a 62 year old male seen today for R knee TKR secondary to OA. Pt had home health PT upon D/C from hospital. 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 Pt has hx of L TKR ~10 [...] R Swelling: m (more content not included)... 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 Based on history , examination(knee, mobility, [...] contralateral side -Normal Gait -Reciprocal Stair Negotiation [place] in home exercise program. Patient will decrease pain rating by 2 points to meet minimal clinical important difference for numeric pain rating scale. Patient Goals: decrease pain, return to work, improve performance with mobility tasks. Planned Interventions, Frequency, and Duration: Current Frequency: 2x/week Duration: 4 weeks Total Number of Visits Planned: 8 Planned Treatment Interventions: Therapeutic exercise (70291), Neuromuscular re-education (02041), Manual therapy (25123), Therapeutic activities (50142), Self-penitentiary management (43177), Gait Training (14312) Patient demonstrates good understanding of plan of care and treatment. The above goals and plan of care were discussed and agreed upon by patient/family. SUBJECTIVE: Roberto Osborn SR is a 62 year old male seen today for R knee TKR secondary to OA. Pt had home health PT upon D/C from hospital. 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 Pt has hx of L TKR ~10 [...] Go PT, DPT documented in this encounter [facility] 09-30-2022 Miscellaneous Notes SITUATION: Patient reports [...] for intervention/education details. documented in this encounter [facility] 09-26-2022 Miscellaneous Notes SITUATION: patient reports [...] for intervention/education details. documented in this encounter [facility] 09-25-2022 Note HNO ID: [id number] Author: Matthieu Esparza PA-C Service: ? Author Type: Physician Grants Director Type: Progress Notes Filed: 09/25/2022 10:25 AM [...] supported. All questions answered. Matthieu Esparza PA-C [facility] 09-25-2022 Note HNO ID: [id number] Author: GERMAINE Sparrow Service: Radiology Author Type: [...] GERMAINE Sparrow September 25, 2022 10:04 AM [facility] 09-25-2022 History of Present illness Narrative [...] Matthieu Esparza PA-C documented in this encounter [facility] 09-25-2022 History of Present illness Narrative [...] 2022 10:04 AM documented in this encounter [facility] 09-23-2022 Miscellaneous Notes SITUATION: only patient [...] for intervention/education details. documented in this encounter [facility] 09-20-2022 Miscellaneous Notes SITUATION: Patient reports [...] for intervention/education details. documented in this encounter [facility] 09-18-2022 Miscellaneous Notes SITUATION: Patient reports [...] for intervention/education details. documented in this encounter [facility] 09-16-2022 Miscellaneous Notes SITUATION: Only patient [...] for intervention/education details. documented in this encounter [facility] 09-14-2022 Miscellaneous Notes Patient requested to cancel PT visit today due to having to be somewhere at noon and not sure when he will be back. Patient stated he was doing ok and requested Friday for next PT visit. documented in this encounter [facility] 09-12-2022 Miscellaneous Notes Kirill PT at [facility]. Pic of drainage uploaded in [employer]. Per Manjeet GARCIA, remove silverlon and use ABD and blanca wrap. Hold ROM for weekend. Call back if worsens or needs to be seen. documented in this encounter [facility] 09-12-2022 Miscellaneous Notes SITUATION: spouse present [...] Surgical Precautions: WBAT ASSESSMENT: Patient evaluated by [facility] physical therapy. Reviewed and explained [...] blanca wrap. Patient verbally agrees to allow [facility] to obtain an image via photography. documented in this encounter [facility] 09-11-2022 Miscellaneous Notes Welcome Home Call: a. Date and Time: 11:21 AM 09/11/2022 b. Contact name/relationship: PatientRoberto c. Have you been active with any Home Care company in the last 60 days(such as help with bathing, filling medications, checking your blood pressure) ? No. d. Was patient given Flu shot this Season (After Apr,): Yes: Location: , Date received: 08/10/22 e. [facility] will be providing your care, are you agreeable to starting these services? YES (yes or no) f. Do you have any upcoming appointments in the next few days, or restrictions to your schedule? NO g. Caregiver: Patient is able to manage care independently h. Confirmed Visited Location and preferred #: [id number] [place] [address] Please keep our your medications both over the counter and prescribed out for the home care to review, your hospital discharge instructions and write down any questions you might have. In order to maintain a safe environment for our caregivers, [facility] requires any animals or weapons present in the home be located in a secured location. Our clinicians will call you the night before or the morning of the appointment. Their # may come up restricted but they'll leave a VM for you. In case you have any questions or concerns in the meantime, our # is [phone], option [phone] Thank you for your time and have a great day. FILIBERTO Nicholson documented in this encounter [facility] 09-11-2022 Note HNO ID: [id number] Author: Matthieu Esparza PA-C Service: Orthopaedic Surgery Author Type: Physician Grants Director Type: Progress Notes Filed: 09/11/2022 8:26 AM [...] 1130 VTE RISK CATEGORY: SURGICAL HIGH RISK ([place], [place]) Active VTE Medication Orders: Anticoagulant AND Antiplatelet Medications (From admission, onward) Start Dose Route Frequency Last Action Ordered Stop 09/11/22 0900 aspirin, enteric coated 81 mg tab(s) (Surgical Risk Categories) 81 mg ORAL 2 TIMES DAILY Ordered 09/10/22 1124 -- Active VTE Prophylaxis Orders: 09/10/22 1130 PNEUMATIC COMPRESSION STOCKINGS ([place], [place]) 09/10/22 1130 ACTIVITY - MOBILIZE PATIENT ([place], [place]) PHYSICAL EXAMINATION: Right Lower Extremity: Dorsalis [...] Patient demonstrated understanding of risks versus benefits. [facility] 09-10-2022 Note HNO ID: [id number] Author: Adryan Payton MD Service: Anesthesiology Author [...] September 10, 2022 TIME: 2:44 PM CSN: [id number] [facility] 09-10-2022 Note HNO ID: [id number] Author: Indio Cho APRN.INSIDE SALES ADVERTISING EXECUTIVE Service: Anesthesiology Author Type: Nurse Display Card Writer Type: Anesthesia Procedure Notes Filed: 09/10/2022 8:10 AM Note Text: ANESTHESIOLOGY PROCEDURE NOTE Spinal Block General Information Procedure Start Time/Medication Administration: 09/10/2022 7:52 AM Patient location during procedure: OR Timeout Performed Pre-procedure: timeout performed Consent Obtained: Yes 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 SIGNATURE: Indio Cho APRN.INSIDE SALES ADVERTISING EXECUTIVE PATIENT NAME: Roberto Osborn SR DATE: September 10, 2022 TIME: 8:08 AM CSN: [id number] [facility] 09-09-2022 Miscellaneous Notes called back and [...] new ct order. documented in this encounter [facility] 09-07-2022 Note HNO ID: [id number] Author: Shy Saha, CT Service: Radiology Author [...] GERMAINE Chahal September 07, 2022 8:28 AM [facility] 09-07-2022 History of Present illness Narrative [...] 2022 8:28 AM documented in this encounter [facility] 09-03-2022 Miscellaneous Notes Type of form: Long-term Disability Form received via walk in from Dianne When form is completed, Fax form to [phone] Form has been forwarded to [facility] Dianne is wanting to sweet pickled fruit maker the completed forms once they have been faxed please. Clemente Sauer documented in this encounter [facility] 08-22-2022 Miscellaneous Notes COVID and CT orders entered. Matthieu Esparza PA-C August 22, 2022 3:[address] self test covid order and CT scan order for Rt tka wilmer 09/10/22. Please schedule [address]. 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 SIGNATURE: FILIBERTO Villalobos PATIENT NAME: Roberto Osborn SR DATE: August 20, 2022 TIME: 4:00 PM documented in this encounter [facility] 08-19-2022 Note HNO ID: [id number] Author: Yanet Boyle PA-C Service: ? Author Type: Physician Grants Director Type: Progress Notes Filed: 08/19/2022 8:11 AM [...] 378 QTC Calculation (Bazett) 427 Calculated P [place] 57 Calculated R [place] -3 Calculated T [place] 30 Impression NORMAL SINUS RHYTHM NORMAL ECG WHEN COMPARED WITH ECG OF 29-JUL-2014 08:31, NO SIGNIFICANT CHANGE WAS FOUND Confirmed by ELIJAH BURNS M.D. ([id number]) on 08/16/2022 2:14:14 PM Labs and ECG reviewed and accepted. Pt is optimally prepared for surgery. Yanet Boyle PA-C 08/19/2022 8:10 AM [facility] 08-16-2022 Instructions Yanet Boyle PA-C - 08/16/2022 9:07 AM EST PATIENT PREOPERATIVE INSTRUCTIONS [facility]: [phone] -- [address] [facility] [address]. Please read below carefully for your personalized [...] Advance Directive, please fax a copy to [phone] or email to for it to be [...] chart that day. documented in this encounter [facility] 08-15-2022 History and physical note HISTORY [...] manage symptoms. Procedure scheduled on 09/10/2022 at OR. REVIEW OF SYSTEMS: General: No weight loss, malaise or fevers. Neurological: No history of TIA's, stroke, DEVICE SALES CONSULTANT tumor, impaired sensorium, hemiplegia, paraplegia or quadraplegia. 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 [...] record for those providers who practice within [facility] or with access to [employer] via [employer], or via [employer] documented in this encounter [facility] 08-02-2022 History of Present illness Narrative [...] PERIPHERAL IV DATA: Not applicable SIGNED BY: GEMRAINE Cardenas August 02, 2022 12:30 PM documented in this encounter [facility] 07-29-2022 History of Present illness Narrative [...] Chika Carpenter M.D. Department of Orthopaedic Surgery [facility] documented in this encounter [facility] 07-05-2022 Miscellaneous Notes I talked with [...] helping. Please advise documented in this encounter [facility] 06-28-2022 History of Present illness Narrative [...] knee joint Informed Consent Consent Obtained: Verbal Brewster Protocol A moment to CARE was completed. [...] completed when applicable documented in this encounter [facility] 06-21-2022 History of Present illness Narrative [...] knee joint Informed Consent Consent Obtained: Verbal Brewster Protocol A moment to CARE was completed. [...] completed when applicable documented in this encounter [facility] 06-14-2022 History of Present illness Narrative [...] knee joint Informed Consent Consent Obtained: Verbal Brewster Protocol A moment to CARE was completed. 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 [...] of further assistance. documented in this encounter [facility] 02-22-2022 History of Present illness Narrative [...] 2022 12:52 PM documented in this encounter [facility] 11-15-2021 Miscellaneous Notes Images from the original note were not included. [employer] Care Opportunity Follow-up HBA1C Due Situation: [employer] Online Reporting Portal reviewed for open care opportunities and completion of health maintenance gaps in care. Payor: SUSAN - [employer] / Plan: BLUE CROSS/HMO,PPO,POS / Product Type: PPO [employer] Online Reporting Portal: Care Opportunity: Past due [...] additional care opportunities. DAVON Givens, RN, [facility] Train Station Agent documented in this encounter [facility] Evaluation note Diagnosis Pain- Primary Generalized pain [facility] Pain Generalized pain [facility] Diagnosis Primary osteoarthritis of right knee- Primary Primary localized osteoarthrosis, lower leg [facility] Diagnosis Colon cancer screening- Primary Special screening for malignant neoplasms, colon [facility] Diagnosis Primary osteoarthritis of right knee- Primary Primary localized osteoarthrosis, lower leg [facility] Primary osteoarthritis of right knee- Primary Primary localized osteoarthrosis, lower leg [facility] Diagnosis Primary osteoarthritis of right knee- Primary Primary localized osteoarthrosis, lower leg [facility] Acute pain of right knee- Primary Primary osteoarthritis of right knee Primary localized osteoarthrosis, lower leg [facility] Diagnosis Primary osteoarthritis of right [...] osteoarthrosis, lower leg [facility] Diagnosis Primary osteoarthritis of right knee Primary localized osteoarthrosis, lower leg Preop testing Preoperative examination, unspecified Primary osteoarthritis of right knee Primary localized osteoarthrosis, lower leg [facility] Diagnosis S/P total knee arthroplasty, right- Primary [facility] Diagnosis Pain in right hip Pain in joint, pelvic region and thigh Chronic pain of right knee [facility] Diagnosis Annual physical exam- Primary Routine general medical examination at a [facility] facility Vitamin D deficiency Unspecified vitamin D [...] specified viral diseases [facility] Diagnosis Erectile dysfunction, unspecified erectile dysfunction type- Primary [facility] Diagnosis Chronic pain of right knee- Primary S/P total knee arthroplasty, right [facility] Diagnosis Chronic pain of right knee- Primary [facility] Diagnosis Chronic pain of right knee- Primary [facility] Diagnosis Chronic pain of right knee- Primary [facility] Diagnosis Chronic pain of right knee- Primary [facility] Diagnosis Aftercare following right knee joint replacement surgery- Primary [facility] Diagnosis Chronic pain of right knee- Primary [facility] Diagnosis Chronic pain of right knee- Primary [facility] Diagnosis Chronic pain of right knee- Primary [facility] Diagnosis Aftercare following right knee joint replacement surgery- Primary [facility] Diagnosis Primary osteoarthritis of right knee- Primary Primary localized osteoarthrosis, lower leg Preop testing Preoperative examination, unspecified Encounter for preoperative screening laboratory testing for COVID-19 virus [facility] Diagnosis Primary osteoarthritis of right knee- Primary Primary localized osteoarthrosis, lower leg documented in this encounter [facility] note* Diagnosis Myalgia- Primary Mylagia and myositis, unspecified B12 deficiency Other B-complex deficiencies Vitamin D deficiency Unspecified vitamin D deficiency [facility]* Diagnosis Status post total left knee replacement- Primary documented in this encounter [facility] note* Diagnosis Pain due to internal orthopedic prosthetic devices, implants and grafts, initial encounter ([facility])- Primary S/P total knee replacement using cement, left 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 ([facility]) documented in this encounter [facility] note* Diagnosis Pain due to internal orthopedic prosthetic devices, implants and grafts, initial encounter ([facility]) S/P total knee replacement using cement, left documented in this encounter [facility] note* Diagnosis Pain due to internal orthopedic prosthetic devices, implants and grafts, initial encounter ([facility])- Primary documented in this encounter [facility] note* Diagnosis Left leg swelling- Primary Left leg swelling [facility]* Diagnosis Pre-op evaluation- Primary Preoperative examination, unspecified Carpal tunnel syndrome of left wrist Carpal tunnel syndrome Essential hypertension, benign Type 2 diabetes mellitus without complication, without long-term current use of insulin ([facility]) Gastroesophageal reflux disease, unspecified whether esophagitis present Allergic rhinitis, unspecified seasonality, unspecified trigger Preoperative examination- Primary Preoperative examination, unspecified Type 2 diabetes mellitus without complication, without long-term current use of insulin ([facility]) Class 1 obesity with body [...] pain, unspecified chronicity documented in this encounter [facility] note* Diagnosis Pre-op evaluation- Primary Preoperative examination, unspecified Carpal tunnel syndrome of left wrist Carpal tunnel syndrome Essential hypertension, benign Type 2 diabetes mellitus without complication, without long-term current use of insulin ([facility]) Gastroesophageal reflux disease, unspecified whether [...] left knee replacement documented in this encounter [facility] note* Diagnosis Pre-op evaluation- Primary [...] pain, unspecified chronicity documented in this encounter [facility] note* Diagnosis Pre-op evaluation- Primary [...] whether esophagitis present documented in this encounter [facility] note* Diagnosis Chronic pain of right knee- Primary documented in this encounter [facility] [employer] Work Phone: Evaluation note* Diagnosis Spinal stenosis of lumbar region with neurogenic claudication- Primary Spinal stenosis, lumbar region, with neurogenic claudication documented in this encounter [facility] [employer] Work Phone: Evaluation note* Diagnosis Annual physical [...] neoplasms, colon documented in this encounter [facility] [employer] Work Phone: Evaluation note* Diagnosis Spinal stenosis of lumbar region with neurogenic claudication- Primary Spinal stenosis, lumbar region, with neurogenic claudication documented in this encounter [facility] [employer] Work Phone: Evaluation note* Diagnosis Medicare welcome [...] [facility] kulm exam- Primary Type 2 diabetes mellitus without [...] clean dressing and contact provider and PT employment case manager. Problem:PT Orthopedic Condition Goal:Manage Orthopedic [...] Discuss all medications you are taking, even [id number] medicines, with your provider and pharmacist since [...] & Living Will. [facility]* Visit [...] of DME/assistive devices. documented in this encounter [facility] Plan of care note* Visit Details [...] softener(s) as prescribed. documented in this encounter [facility] home Plan of care note* Visit Details [...] of DME/assistive devices. documented in this encounter [facility] home Plan of care note* Visit Details [...] of DME/assistive devices. [facility]* Visit [...] of DME/assistive devices. [facility]* Visit [...] to: outpatient [facility] Diagnostic Procedure Only (Routine) - Authorized Specialty Diagnoses / Procedures Referred By Contac t Referred To Contact XR IMAGING Diagnoses Pain Procedures XR KNEE GENERAL 4V AP BOTH/PA BOTH/LAT/MERC BILATERAL RADIOLOGIC EXAM KNEE COMPLETE 4/MORE VIEWS Lea Connor PA-C [id number] [place] [address] Xr Imaging Referral ID Status Reason Start Date Expiration Date Visits Requested Visits Authorized [id number] Authorized Auto-Generat ed Referral 02/01/2022 03/03/2023 1 1 [facility] for referral (narrative)* Diagnostic Procedure Only (Routine) - Closed Specialty Diagnoses / Procedures Referred By Contac t Referred To Contact XR IMAGING Diagnoses Pain Procedures XR KNEE GENERAL 4V AP BOTH/PA BOTH/LAT/MERC BILATERAL RADIOLOGIC EXAM KNEE COMPLETE 4/MORE VIEWS Lea Connor PA-C [address] [place] [address] Xr Imaging Referral ID Status Reason Start Date Expiration Date V isits Requested Visits Authorized [id number] Closed Auto-Generate d Referral 02/01/2022 03/03/2023 1 1 [facility] for referral (narrative)* Outpatient Procedure (Routine) - Closed Specialty Diagnoses / Procedures Referred By Guyac t Referred To Contact [facility] Diagnoses Preoperative examination Procedures ECG COMPLETE ECG ROUTINE ECG W/LEAST 12 LDS W/I&R Yanet Boyle PA-C [address] [address] [facility] [place] [address] [place] [address] Referral ID Status Reason Start Date Expiration Date V isits Requested Visits Authorized [id number] Closed Auto-Generate d Referral 08/16/2022 08/10/2023 1 1 [facility] for referral (narrative)* Diagnostic Procedure Only (Routine) - Authorized Specialty Diagnoses / Procedures Referred By Rodrigo ford Referred To Contact XR IMAGING Diagnoses Status post total left knee replacement Procedures XR KNEE POST 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 RADIOLOGIC EXAMINATION KNEE 3 VIEWS Regla Higgins PA-C [address] [place] [address] Xr Imaging [facility] Referral ID Status Reason Start Date Expiration Date Visits Requested Visits Authorized [id number] Authorized Auto-Generat ed Referral 05/14/2023 06/12/2024 1 1 [facility] for referral (narrative)* Diagnostic Procedure Only (Routine) - Open Specialty Diagnoses / Procedures Referred By Rodrigo ford Referred To Contact MOLECULAR & FUNCTIONAL IMAGING Diagnoses Pain due to internal orthopedic prosthetic devices, implants and grafts, initial encounter (HCC) S/P total knee replacement using cement, left Procedures NM BONE 3 PHASE BONE &/JOINT IMAGING 3 PHASE STUDY Regla Higgins PA-C [address] [place] [address] [facility] [address] [place] [address] Referral ID Status Reason Start Date Expiration Date V isits Requested Visits Authorized [id number] Open Auto-Generate d Referral 05/16/2023 06/14/2024 1 1 [facility] for referral (narrative)* Diagnostic Procedure Only (Routine) - Closed Specialty Diagnoses / Procedures Referred By Contac t Referred To Contact MOLECULAR & FUNCTIONAL IMAGING Diagnoses Pain due to internal orthopedic prosthetic devices, implants and grafts, initial encounter (HCC) S/P total knee replacement using cement, left Procedures NM BONE 3 PHASE BONE &/JOINT IMAGING 3 PHASE STUDY Chika Carpenter MD [address] [address] Molecular [facility] Functional Imaging [address] [place] [address] Referral ID Status Reason Start Date Expiration Date V isits Requested Visits Authorized [id number] Closed Auto-Generate d Referral 05/20/2023 08/10/2023 1 1 [facility] for referral (narrative)* Diagnostic Procedure Only (Routine) - Closed Specialty Diagnoses / Procedures Referred By Contac t Referred To Contact XR IMAGING Diagnoses Right knee pain, unspecified chronicity Procedures XR KNEE POST OP 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 RIGHT RADIOLOGIC EXAMINATION KNEE 3 VIEWS Matthieu Esparza PA-C [address] [place] [address] Xr Imaging [place] [address] Referral ID Status Reason Start Date Expiration Date V isits Requested Visits Authorized [id number] Closed Auto-Generate d Referral 07/14/2023 08/09/2024 1 1 * Diagnostic Procedure Only (Routine) - Closed Specialty Diagnoses / Procedures Referred By Contac t Referred To Contact XR IMAGING Diagnoses Pain in left hip Procedures XR HIP 2V AP/LAT LEFT (AK,FL,ME,UN) RADEX HIP UNILATERAL WITH PELVIS 2-3 VIEWS Regla Higgins PA-C [address] [place] [address] [place] [address] Referral ID Status Reason Start Date Expiration Date V isits Requested Visits Authorized [id number] Closed Auto-Generate d Referral 06/20/2023 07/19/2024 1 1 [facility] for referral (narrative)* Diagnostic Procedure Only (Routine) - Closed Specialty Diagnoses / Procedures Referred By Contac t Referred To Contact XR IMAGING Diagnoses Status post total left knee replacement Procedures XR KNEE POST 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 RADIOLOGIC EXAMINATION KNEE 3 VIEWS Regla Higgins PA-C [address] [place] [address] [place] [address] Referral ID Status Reason Start Date Expiration Date V isits Requested Visits Authorized [id number] Closed Auto-Generate d Referral 05/14/2023 06/12/2024 1 1 [facility] for referral (narrative)* Diagnostic Procedure Only (Routine) - Closed Specialty Diagnoses / Procedures Referred By Contac t Referred To Contact XR IMAGING Diagnoses Right knee pain, unspecified chronicity Procedures XR KNEE POST OP 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 RIGHT RADIOLOGIC EXAMINATION KNEE 3 VIEWS Matthieu Esparza PA-C [address] [place] [address] [place] [address] Referral ID Status Reason Start Date Expiration Date V isits Requested Visits Authorized [id number] Closed Auto-Generate d Referral 09/12/2022 10/12/2023 1 1 [facility] for referral (narrative)* Diagnostic Procedure Only (Routine) - Closed Specialty Diagnoses / Procedures Referred By Contac t Referred To Contact XR IMAGING Diagnoses Right shoulder pain, unspecified chronicity Procedures XR SHOULDER [id number] AP/TRUE AP RIGHT RADEX SHOULDER COMPLETE MINIMUM 2 VIEWS Matthieu Esparza PA-C [address] [place] [address] Xr Imaging [place] [address] Referral ID Status Reason Start Date Expiration Date V isits Requested Visits Authorized [id number] Closed Auto-Generate d Referral 07/11/2022 08/10/2023 1 1 [facility] for visit Narrative* Diagnostic Procedure Only (Routine) - Closed Specialty Diagnoses / Procedures Referred By Contac t Referred To Contact XR IMAGING Diagnoses Pain Procedures XR KNEE GENERAL 4V AP BOTH/PA BOTH/LAT/MERC BILATERAL RADIOLOGIC EXAM KNEE COMPLETE 4/MORE VIEWS Lea Connor PA-C [address] [place] [id number] Xr Imaging Referral ID Status Reason Start Date Expiration Date V isits Requested Visits Authorized [id number] Closed Auto-Generate d Referral 02/01/2022 03/03/2023 1 1 [facility] for visit Narrative* Diagnostic Procedure Only (Routine) - Closed Specialty Diagnoses / Procedures Referred By Contac t Referred To Contact MOLECULAR & FUNCTIONAL IMAGING Diagnoses Pain due to internal orthopedic prosthetic devices, implants and grafts, initial encounter (HCC) S/P total knee replacement using cement, left Procedures NM BONE 3 PHASE BONE &/JOINT IMAGING 3 PHASE STUDY Chika Carpenter MD [address] [address] Molecular & Functional Imaging [address] [place] [address] Referral ID Status Reason Start Date Expiration Date V isits Requested Visits Authorized [id number] Closed Auto-Generate d Referral 05/20/2023 08/10/2023 1 1 [facility] for visit Narrative* Diagnostic Procedure Only (Routine) - Closed Specialty Diagnoses / Procedures Referred By Contac t Referred To Contact XR IMAGING Diagnoses Pain in left hip Procedures XR HIP 2V AP/LAT LEFT (AK,FL,ME,UN) RADEX HIP UNILATERAL WITH PELVIS 2-3 VIEWS Regla Higgins PA-C [address] [place] [address] [place] [address] Referral ID Status Reason Start Date Expiration Date V isits Requested Visits Authorized [id number] Closed Auto-Generate d Referral 06/20/2023 07/19/2024 1 1 [facility] for visit Narrative* Diagnostic Procedure Only (Routine) - Closed Specialty Diagnoses / Procedures Referred By Contac t Referred To Contact XR IMAGING Diagnoses Status post total left knee replacement Procedures XR KNEE POST 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 RADIOLOGIC EXAMINATION KNEE 3 VIEWS Regla Higgins PA-C [address] [place] [address] [place] [address] Referral ID Status Reason Start Date Expiration Date V isits Requested Visits Authorized [id number] Closed Auto-Generate d Referral 05/14/2023 06/12/2024 1 1 [facility] for visit Narrative* Diagnostic Procedure Only (Routine) - Closed Specialty Diagnoses / Procedures Referred By Contac t Referred To Contact XR IMAGING Diagnoses Right knee pain, unspecified chronicity Procedures XR KNEE POST OP 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 RIGHT RADIOLOGIC EXAMINATION KNEE 3 VIEWS Matthieu Esparza PA-C [address] [place] [address] [place] [address] Referral ID Status Reason Start Date Expiration Date V isits Requested Visits Authorized [id number] Closed Auto-Generate d Referral 09/12/2022 10/12/2023 1 1 [facility] for visit Narrative* Diagnostic Procedure Only (Routine) - Closed Specialty Diagnoses / Procedures Referred By Contac t Referred To Contact XR IMAGING Diagnoses Right shoulder pain, unspecified chronicity Procedures XR SHOULDER [id number] AP/TRUE AP RIGHT RADEX SHOULDER COMPLETE MINIMUM 2 VIEWS Matthieu Esparza PA-C [address] [place] [address] [place] [address] Referral ID Status Reason Start Date Expiration Date V isits Requested Visits Authorized [id number] Closed Auto-Generate d Referral 07/11/2022 08/10/2023 1 1 [facility] Discharge Instructions * Attachments The following attachments cannot be sent through Care Everywhere. * Numbness and Tingling (Frisian) documented in this encounter Assessments Diagnosis Arm paresthesia, left Disturbance of skin sensation Diagnosis Acute pain of right lower extremity Advance Directives Documents on File Type Date Recorded Patient Box Worker Expl anation Advance Directives and Living Will Power of Marketing Business Analyst Documents on File Type Date Recorded Patient Box Worker Expl anation Advance Directives and Living Will Power of Marketing Business Analyst Documents on File Type Date Recorded Patient Box Worker Expl anation ACP-Advance Directive ACP-Power of Marketing Business Analyst Documents on File Type Date Recorded Patient Box Worker Expl anation Advance Directive(s) 07/18/2021 8:22 PM Advance Directive(s) 10/26/2020 12:47 PM Advance Directive(s) 08/07/2018 7:39 AM Documents on File Type Date Recorded Patient Box Worker Expl anation Advance Directive(s) 07/18/2021 8:22 PM [...] Extremity Venous Right Awilda Vivas PA-C [address] [facility] [address] [place] [address] Specialty Diagnoses / Procedures Referred By Rodrigo ford Referred To Contact CT IMAGING Diagnoses Primary osteoarthritis of right knee Preop testing Procedures CT KNEE WO IVCON RT CT LOWER EXTREMITY W/O CONTRAST MATERIAL Matthieu Esparza PA-C [address] [place] [address] Ct Imaging Referral ID Status Reason Start Date Expiration Date V isits Requested Visits Authorized [id number] Closed Auto-Generate d Referral 08/26/2022 08/10/2023 1 1 Specialty Diagnoses / Procedures Referred By Contac t Referred To Contact [facility] Diagnoses S/P total knee arthroplasty, right Procedures CONSULT TO PHYSICAL THERAPY PHYSICAL THERAPY EVALUATION HIGH COMPLEX 45 MINS Matthieu Esparza PA-C [address] [place] [address] [facility] Therapy [address] [address] Referral ID Status Reason Start Date Expiration Date Visits Requested Visits Authorized [id number] Pending Review Auto-Generat ed Referral 09/25/2022 09/25/2023 1 1 Specialty Diagnoses / Procedures Referred By Contac t Referred To Contact [facility] Diagnoses Pain in right hip Chronic pain of right knee Procedures PT REHAB FOLLOW UP ORDER THERAPEUTIC EXERCISES RE, EA [address] [place] [address] [facility] Sports [address] [address] Referral ID Status Reason Start Date Expiration Date Visits Requested Visits Authorized [id number] Pending Review PCP Requested Referral Auto-Generate d Referral 10/02/2022 12/31/2022 1 1 Specialty Diagnoses / Procedures Referred By Contac t Referred To Contact Timothy Correa MD [address] [place] [address] [place] [address] Referral ID Status Reason Start Date Expiration Date V isits Requested Visits Authorized [id number] Pending Review 3 3 Specialty Diagnoses / Procedures Referred By Contac t Referred To Contact [facility] Diagnoses Chronic pain of right knee Procedures PT REHAB FOLLOW UP ORDER THERAPEUTIC EXERCISES RE, EA [address] [place] [address] [facility] Therapy [address] [address] Referral ID Status Reason Start Date Expiration Date Visits Requested Visits Authorized [id number] Pending Review PCP Requested Referral Auto-Generate d Referral 10/16/2022 01/14/2023 1 1 Referral ID Status Reason Start Date Expiration Date Visits Requested Visits Authorized [id number] Pending Review PCP Requested Referral Auto-Generate d Referral 10/30/2022 01/28/2023 1 1 Specialty Diagnoses / Procedures Referred By Contac t Referred To Contact CT IMAGING Diagnoses Primary osteoarthritis of right knee Procedures CT KNEE WO IVCON RT CT LOWER EXTREMITY W/O CONTRAST MATERIAL Matthieu Esparza PA-C [address] [place] [address] Ct Imaging Referral ID Status Reason Start Date Expiration Date V isits Requested Visits Authorized [id number] Closed Auto-Generate d Referral 09/10/2022 08/10/2023 1 1 Specialty Diagnoses / Procedures Referred By Contac t Referred To Contact Radiology Diagnoses Left leg swelling Procedures US LEG LEFT VENOUS + DOPPLER Timothy Correa MD [address] [facility] [place] [address] S ULTRASOUND [address] [place] [address] Referral ID Status Reason Start Date Expiration Date V isits Requested Visits Authorized [id number] Closed Transfer of Care-[facility] 12/16/2023 03/17/2024 1 1 Summary Purpose Family [...] rs pt Chika Carpenter MD [address] [place] [address] [place] [address] [place] [address] Referral ID Status Reason Start Date Expiration Date V isits Requested Visits Authorized [id number] Authorized 08/11/2022 08/10/2023 99 99 Reason Comments Physical Therapy Specialty Diagnoses / Procedures Referred By Contac Referred To Contact PHYSICAL THERAPY Diagnoses Pain in right hip Other chronic pain Pain in right hip [M25.551] Chronic pain of right knee [M25.561, G89.29] Procedures post op est rs pt Chika Carpenter MD [address] [place] [address] [place] [address] [place] [address] Reason Comments Follow Up Euflexxa #3 Specialty Diagnoses / Procedures [facility]erred To Contact Orthopedics / ORTHOPAEDIC SURGERY Diagnoses right knee euflexxa #1 Procedures HUSAM INJECT 3 Self Chika Carpenter MD [address] [place] [address] Referral ID Status Reason Start Date Expiration Date V isits Requested Visits Authorized [id number] Closed Financial Clearance Required - Self Pay Patient Cleared - True Self-Pay required payment collected 06/14/2022 09/12/2022 3 3 Reason Comments Injections Follow Up Referral ID Status Reason Start Date Expiration Date Visits Requested Visits Authorized [id number] Authorized Financial Clearance Required - Self Pay [...] W/O CONTRAST MATERIAL Matthieu Esparza PA-C [address] [place] [address] Ct Imaging Referral ID Status Reason Start Date Expiration Date V isits Requested Visits Authorized [id number] Closed Auto-Generate d Referral 08/26/2022 08/10/2023 1 1 Reason Comments Forms Specialty Diagnoses / Procedures Referred By Contac t Referred To Contact Diagnoses Primary osteoarthritis of right knee Procedures ARTHRP KNE CONDYLE&PLATU MEDIAL&LAT COMPARTMENTS ROBOTIC ASSISTED TOTAL KNEE ARTHROPLASTY [facility] [address] [place] [address] Referral ID Status Reason Start Date Expiration Date Visits Re quested Visits Authorized [id number] 1 1 Reason Comments Home Care Confirmation call Reason Comments Patient Update Reason Comments Home Care Unmade PT visit Specialty Diagnoses / Procedures Referred By Contac t Referred To Contact [facility] Home Care [address] [place] [address] Referral ID Status Reason Start Date Expiration Date Visits Re quested Visits Authorized [id number] 1 1 Reason Comments Established Patient Follow Up Post Op Knee Replacement Reason Comments PT Eval Specialty Diagnoses / Procedures Referred By Contac t Referred To Contact Physical Therapy / PHYSICAL THERAPY Diagnoses RT TKR [facility] DISC 09/30 Procedures NEW RS PT [facility] TOTAL JOINT Chika Carpenter MD [address] [address] Tre Go, PT, DPT [address] [facility] [place] [address] Referral ID Status Reason Start Date Expiration Date Visits Re quested Visits Authorized [id number] Closed 10/02/2022 12/31/2022 1 1 Reason Comments Complete exam Reason Onset Date Comments Discuss results of exam, other provider 10/03/19 Specialty Diagnoses / Procedures Referred By Contac t Referred To Contact [facility] Diagnoses S/P total knee arthroplasty, right Procedures CONSULT TO PHYSICAL THERAPY PHYSICAL THERAPY EVALUATION HIGH COMPLEX 45 MINS Matthieu Esparza PA-C [address] [place] [address] [facility] [place] [address] Referral ID Status Reason Start Date Expiration Date Visits Requested Visits Authorized [id number] Authorized Auto-Generat ed Referral 08/11/2022 08/10/2023 20 [...] section and content) DATE CREATED AUTHOR 03/28/2020 [facility] DATE CREATED AUTHOR AUTHOR'S ORGANIZ ATION 04/26/2020 [facility] DATE CREATED AUTHOR AUTHOR'S ORGANIZ ATION 05/02/2020 [facility] DATE CREATED AUTHOR AUTHOR'S ORGANIZ ATION 07/20/2023 [facility] DATE CREATED AUTHOR AUTHOR'S ORGANIZ ATION 08/15/2023 [facility] DATE CREATED AUTHOR AUTHOR'S ORGANIZ ATION 09/25/2023 [facility] DATE CREATED AUTHOR AUTHOR'S ORGANIZ ATION 09/11/2024 [facility] DATE CREATED AUTHOR AUTHOR'S ORGANIZ ATION 01/19/2025 [facility] Care Teams (unrecognized sec tion and content) Wreath Maker Relationship Specialty Start Date End Date Timothy Correa MD [address] [place] [address] [place] [address] PCP - General Family Medicine 11/06/20 Wreath Maker Relationship Specialty Start Date End Date Timothy Correa MD [address] [place] [address] [place] [address] PCP - General Family Medicine 11/06/20 Wreath Maker Relationship Specialty Start Date End Date Phill Timothy Coronado PCP - General Family Practice 03/01/13 Wreath Maker Relationship Specialty Start Date End Date Phill Timothy Coronado PCP - General Family Practice 03/01/13 Wreath Maker Relationship Specialty Start Date End Date Phill Timothy Coronado PCP - General Family Practice 03/01/13 Wreath Maker Relationship Specialty Start Date End Date Phill Timothy Coronado PCP - General Family Practice 03/01/13 Wreath Maker Relationship Specialty Start Date End Date Timothy Correa MD [address] [place] [address] [place] [address] PCP - General Family Medicine 11/06/20 Wreath Maker Relationship Specialty Start Date End Date Phill Timothy Coronado PCP - General Family Medicine 03/01/13 Wreath Maker Relationship Specialty Start Date End Date PhillTimothy PCP - General Family Medicine 03/01/13 Wreath Maker Relationship Specialty Start Date End Date Phill Timothy Coronado PCP - General Family Medicine 03/01/13 Wreath Maker Relationship Specialty Start Date End Date Tmiothy Correa MD [address] [place] [address] [place] [address] PCP - General Family Medicine 11/06/20 Wreath Maker Relationship Specialty Start Date End Date Timothy Correa PCP - General Family Medicine 03/01/13 Wreath Maker Relationship Specialty Start Date End Date Timothy Correa PCP - General Family Medicine 03/01/13 Sisdivina, Rony, [facility] [address] [place] [address] Specialty Train Station Agent Orthopedics 07/29/22 10/13/22 Wreath Maker Relationship Specialty Start Date End Date Timothy Correa PCP - General Family Medicine 03/01/13 SisGiovanni murciain, [facility] [address] [place] [address] Specialty Train Station Agent Orthopedics 07/29/22 10/13/22 Wreath Maker Relationship Specialty Start Date End Date Timothy Correa PCP - General Family Medicine 03/01/13 SisGiovanni murciain, [facility] [address] [place] [address] Specialty Train Station Agent Orthopedics 07/29/22 10/13/22 Wreath Maker Relationship Specialty Start Date End Date Timothy Correa MD [address] [place] [address] DR [place], [place] [address] PCP - General Family Medicine 11/06/20 Wreath Maker Relationship Specialty Start Date End Date Timothy Correa PCP - General Family Medicine 03/01/13 SisGiovanni murciain, [facility] [address] [place] [address] Specialty Train Station Agent Orthopedics 07/29/22 10/13/22 Wreath Maker Relationship Specialty Start Date End Date Timothy Correa PCP - General Family Medicine 03/01/13 SisGiovanni murciain, [facility] [address] [place] [address] Specialty Train Station Agent Orthopedics 07/29/22 10/13/22 Wreath Maker Relationship Specialty Start Date End Date Timothy Correa PCP - General Family Medicine 03/01/13 SisRony murcia, [facility] [address] [place] [address] Specialty Train Station Agent Orthopedics 07/29/22 10/13/22 Wreath Maker Relationship Specialty Start Date End Date Timothy Correa PCP - General Family Medicine 03/01/13 Rony Doyle, [facility] [address] [place] [address] Specialty Train Station Agent Orthopedics 07/29/22 10/13/22 Wreath Maker Relationship Specialty Start Date End Date Timothy Correa PCP - General Family Medicine 03/01/13 Rony Doyle, [facility] [address] [place] [address] Specialty Train Station Agent Orthopedics 07/29/22 10/13/22 Matthieu Esparza PA-C [address] [place] [address] Referring Orthopedics 09/11/22 Chika Carpenter MD [address] [address] Home Care Provider Orthopedics 09/11/22 Ned Arnold, PT [address] [place] [address] Plasma Center Technician Post Acute Care 09/11/22 Wreath Maker Relationship Specialty Start Date End Date Timothy Correa PCP - General Family Medicine 03/01/13 Rony Doyle, [facility] [address] [place] [address] Specialty Train Station Agent Orthopedics 07/29/22 10/13/22 Matthieu Esparza PA-C [address] [place] [address] Referring Orthopedics 09/11/22 Chika Carpenter MD [address] [place] [address] Home Care Provider Orthopedics 09/11/22 Ned Arnold, PT [address] [place] [address] Plasma Center Technician Post Acute Care 09/11/22 Wreath Maker Relationship Specialty Start Date End Date Timothy Correa PCP - General Family Medicine 03/01/13 Rony Doyle, [facility] [address] [place] [address] Specialty Train Station Agent Orthopedics 07/29/22 10/13/22 Matthieu Esparza PA-C [address] [place] [address] Referring Orthopedics 09/11/22 Chika Carpenter MD [address] [place] [address] Home Care Provider Orthopedics 09/11/22 Ned Arnold, PT [address] [place] [address] Plasma Center Technician Post Acute Care 09/11/22 Wreath Maker Relationship Specialty Start Date End Date Timothy Correa PCP - General Family Medicine 03/01/13 Rony Doyle, [facility] [address] [place] [address] Specialty Train Station Agent Orthopedics 07/29/22 10/13/22 Matthieu Esparza PA-C [address] [place] [address] Referring Orthopedics 09/11/22 Chika Carpenter MD [address] [address] Home Care Provider Orthopedics 09/11/22 Ned Arnold, PT [address] [place] [address] Plasma Center Technician Post Acute Care 09/11/22 Wreath Maker Relationship Specialty Start Date End Date Timothy Correa M PCP - General Family Medicine 03/01/13 Rony Doyle, [facility] [address] [place] [address] Specialty Train Station Agent Orthopedics 07/29/22 10/13/22 Matthieu Esparza PA-C [address] [place] [address] Referring Orthopedics 09/11/22 Chika Carpenter MD [address] [address] Home Care Provider Orthopedics 09/11/22 Ned Arnold, PT [address] [place] [address] Plasma Center Technician Post Acute Care 09/11/22 Wreath Maker Relationship Specialty Start Date End Date Timothy Correa M PCP - General Family Medicine 03/01/13 Rnoy Doyle, [facility] [address] [place] [address] Specialty Train Station Agent Orthopedics 07/29/22 10/13/22 Matthieu Esparza PA-C [address] [place] [address] Referring Orthopedics 09/11/22 Chika Carpenter MD [address] [address] Home Care Provider Orthopedics 09/11/22 Ned Arnold, PT [address] [place] [address] Plasma Center Technician Post Acute Care 09/11/22 Wreath Maker Relationship Specialty Start Date End Date Timothy Correa M PCP - General Family Medicine 03/01/13 Rony Doyle, [facility] [address] [place] [address] Specialty Train Station Agent Orthopedics 07/29/22 10/13/22 Matthieu Esparza PA-C [address] [place] [address] Referring Orthopedics 09/11/22 Chika Carpenter MD [address] [address] Home Care Provider Orthopedics 09/11/22 Ned Arnold, PT [address] [place] [address] Plasma Center Technician Post Acute Care 09/11/22 Wreath Maker Relationship Specialty Start Date End Date Timothy Correa PCP - General Family Medicine 03/01/13 Rony Doyle, [facility] [address] [place] [address] Specialty Train Station Agent Orthopedics 07/29/22 10/13/22 Matthieu Esparza PA-C [address] [place] [address] Referring Orthopedics 09/11/22 Chika Carpenter MD [address] [address] Home Care Provider Orthopedics 09/11/22 Ned Arnold, PT [address] [place] [address] Plasma Center Technician Post Acute Care 09/11/22 Wreath Maker Relationship Specialty Start Date End Date Phill Gutierrez PCP - General Family Medicine 03/01/13 Rony Doyle, [facility] [address] [place] [address] Specialty Train Station Agent Orthopedics 07/29/22 10/13/22 Matthieu Esparza PA-C [address] [place] [address] Referring Orthopedics 09/11/22 Chika Carpenter MD [address] [address] Home Care Provider Orthopedics 09/11/22 Ned Arnold, PT [address] [place] [address] Plasma Center Technician Post Acute Care 09/11/22 Wreath Maker Relationship Specialty Start Date End Date Timothy Correa MD [address] [facility] [place] [address] PCP - General Family Medicine 11/06/20 Wreath Maker Relationship Specialty Start Date End Date Timothy Correa PCP - General Family Medicine 03/01/13 Rony Doyle [facility] [address] [place] [address] Specialty Train Station Agent Orthopedics 07/29/22 10/13/22 Matthieu Esparza PA-C [address] [place] [address] Referring Orthopedics 09/11/22 Chika Carpenter MD [address] [address] Home Care Provider Orthopedics 09/11/22 Ned Arnold, PT [address] [place] [address] Plasma Center Technician Post Acute Care 09/11/22 Wreath Maker Relationship Specialty Start Date End Date Timothy Correa MD [address] [facility] [place] [address] PCP - General Family Medicine 11/06/20 Wreath Maker Relationship Specialty Start Date End Date Timothy Correa MD [address] [facility] [place] [address] PCP - General Family Medicine 11/06/20 Wreath Maker Relationship Specialty Start Date End Date Timothy Correa PCP - General Family Medicine 03/01/13 Matthieu Esparza PA-C [address] [place] [address] Referring Orthopedics 09/11/22 Chika Carpenter MD [address] [place] [address] Home Care Provider Orthopedics 09/11/22 Ned Arnold, PT [address] [place] [address] Plasma Center Technician Post Acute Care 09/11/22 Wreath Maker Relationship Specialty Start Date End Date Timothy Correa PCP - General Family Medicine 03/01/13 Matthieu Esparza PA-C [address] [place] [address] Referring Orthopedics 09/11/22 Chika Carpenter MD [address] [place] [address] Home Care Provider Orthopedics 09/11/22 Ned Arnold, PT [address] [place] [address] Plasma Center Technician Post Acute Care 09/11/22 Wreath Maker Relationship Specialty Start Date End Date Timothy Correa PCP - General Family Medicine 03/01/13 Matthieu Esparza PA-C [address] [place] [address] Referring Orthopedics 09/11/22 Chika Carpenter MD [address] [place] [address] Home Care Provider Orthopedics 09/11/22 Ned Arnold, PT [address] [place] [address] Plasma Center Technician Post Acute Care 09/11/22 Wreath Maker Relationship Specialty Start Date End Date Timothy Correa PCP - General Family Medicine 03/01/13 Matthieu Esparza PA-C [address] [place] [address] Referring Orthopedics 09/11/22 Chika Carpenter MD [address] [place] [address] Home Care Provider Orthopedics 09/11/22 Ned Arnold, PT [address] [place] [address] Plasma Center Technician Post Acute Care 09/11/22 Wreath Maker Relationship Specialty Start Date End Date Timothy Correa PCP - General Family Medicine 03/01/13 Matthieu Esparza PA-C [address] [place] [address] Referring Orthopedics 09/11/22 Chika Carpenter MD [address] [place] [address] Home Care Provider Orthopedics 09/11/22 Ned Arnold, PT [address] [place] [address] Plasma Center Technician Post Acute Care 09/11/22 Wreath Maker Relationship Specialty Start Date End Date Timothy Correa PCP - General Family Medicine 03/01/13 Matthieu Esparza PA-C [address] [place] [address] Referring Orthopedics 09/11/22 Chika Carpenter MD [address] [place] [address] Home Care Provider Orthopedics 09/11/22 Ned Arnold, PT [address] [place] [facility] [place] [address] Plasma Center Technician Post Acute Care 09/11/22 Wreath Maker Relationship Specialty Start Date End Date Timothy Correa PCP - General Family Medicine 03/01/13 Matthieu Esparza PA-C [address] [place] [address] Referring Orthopedics 09/11/22 Chika Carpenter MD [address] [place] [address] Home Care Provider Orthopedics 09/11/22 Ned Arnold, PT [address] [place] [address] Plasma Center Technician Post Acute Care 09/11/22 Wreath Maker Relationship Specialty Start Date End Date Timothy Correa PCP - General Family Medicine 03/01/13 Matthieu Esparza PA-C [address] [place] [address] Referring Orthopedics 09/11/22 Chika Carpenter MD [address] [place] [address] Home Care Provider Orthopedics 09/11/22 Ned Arnold, PT [address] [place] [address] Plasma Center Technician Post Acute Care 09/11/22 Wreath Maker Relationship Specialty Start Date End Date Timothy Correa PCP - General Family Medicine 03/01/13 Matthieu Esparza PA-C [address] [place] [address] Referring Orthopedics 09/11/22 Chika Carpenter MD [address] [address] Home Care Provider Orthopedics 09/11/22 Ned Arnold, PT [address] [place] [address] Plasma Center Technician Post Acute Care 09/11/22 Wreath Maker Relationship Specialty Start Date End Date Timothy Correa PCP - General Family Medicine 03/01/13 Matthieu Esparza PA-C [address] [place] [address] Referring Orthopedics 09/11/22 Chika Carpenter MD [address] [place] [address] Home Care Provider Orthopedics 09/11/22 Ned Arnold, PT [address] [place] [address] Plasma Center Technician Post Acute Care 09/11/22 Wreath Maker Relationship Specialty Start Date End Date Timothy Correa PCP - General Family Medicine 03/01/13 Matthieu Esparza PA-C [address] [place] [address] Referring Orthopedics 09/11/22 Chika Carpenter MD [address] [address] Home Care Provider Orthopedics 09/11/22 Ned Arnold, PT [address] [place] [address] Plasma Center Technician Post Acute Care 09/11/22 Wreath Maker Relationship Specialty Start Date End Date Timothy Correa PCP - General Family Medicine 03/01/13 Matthieu Esparza PA-C [address] [place] [address] Referring Orthopedics 09/11/22 Chika Carpenter MD [address] [address] Home Care Provider Orthopedics 09/11/22 Ned Arnold, PT [address] [facility], [place] [id number] Plasma Center Technician Post Acute Care 09/11/22 Wreath Maker Relationship Specialty Start Date End Date Timothy Correa PCP - General Family Medicine 03/01/13 Rony Doyle, [facility] [address] [place] [address] Specialty Train Station Agent Orthopedics 07/29/22 10/13/22 Matthieu Esparza PA-C [address] [place] [address] Referring Orthopedics 09/11/22 Chika Carpenter MD [address] [place] [address] Home Care Provider Orthopedics 09/11/22 Ned Arnold, PT [address] [place] [address] Plasma Center Technician Post Acute Care 09/11/22 Wreath Maker Relationship Specialty Start Date End Date Timothy Correa PCP - General Family Medicine 03/01/13 Rony Doyle [facility] [address] [place] [address] Specialty Train Station Agent Orthopedics 07/29/22 10/13/22 Matthieu Esparza PA-C [address] [place] [address] Referring Orthopedics 09/11/22 Chika Carpenter MD [address] [place] [address] Home Care Provider Orthopedics 09/11/22 Ned Arnold, PT [address] [place] [facility], [place] [phone] Plasma Center Technician Post Acute Care 09/11/22 Wreath Maker Relationship Specialty Start Date End Date Timothy Correa MD [address] [facility] [place] [address] PCP - General Family Medicine 11/06/20 Wreath Maker Relationship Specialty Start Date End Date Timothy Correa MD [address] [facility] [place] [address] PCP - General Family Medicine 11/06/20 Wreath Maker Relationship Specialty Start Date End Date Timothy Correa PCP - General Family Medicine 03/01/13 Matthieu Esparza PA-C [address] [place] [address] Referring Orthopedics 09/11/22 Chika Carpenter MD [address] [place] [address] Home Care Provider Orthopedics 09/11/22 Ned Arnold, PT [address] [place] [address] Plasma Center Technician Post Acute Care 09/11/22 Wreath Maker Relationship Specialty Start Date End Date Timothy Correa M PCP - General Family Medicine 03/01/13 Matthieu Esparza PA-C [address] [place] [address] Referring Orthopedics 09/11/22 Chika Carpenter MD [address] [place] [address] Home Care Provider Orthopedics 09/11/22 Ned Arnold, PT [address] [place] [address] Plasma Center Technician Post Acute Care 09/11/22 Wreath Maker Relationship Specialty Start Date End Date Timothy Correa M PCP - General Family Medicine 03/01/13 Matthieu Esparza PA-C [address] [place] [address] Referring Orthopedics 09/11/22 Chika Carpenter MD [address] [place] [address] Home Care Provider Orthopedics 09/11/22 Ned Arnold, PT [address] [place] [address] Plasma Center Technician Post Acute Care 09/11/22 Wreath Maker Relationship Specialty Start Date End Date Timothy Correa M PCP - General Family Medicine 03/01/13 Matthieu Esparza PA-C [address] [place] [address] Referring Orthopedics 09/11/22 Chika Carpenter MD [address] [place] [address] Home Care Provider Orthopedics 09/11/22 Ned Arnold, PT [address] [place] [address] Plasma Center Technician Post Acute Care 09/11/22 Wreath Maker Relationship Specialty Start Date End Date Timothy Correa PCP - General Family Medicine 03/01/13 Matthieu Esparza PA-C [address] [place] [address] Referring Orthopedics 09/11/22 Chika Carpenter MD [address] [place] [address] Home Care Provider Orthopedics 09/11/22 Ned Arnold, PT [address] [place] [address] Plasma Center Technician Post Acute Care 09/11/22 Wreath Maker Relationship Specialty Start Date End Date Phill Timothy Coronado PCP - General Family Medicine 03/01/13 Matthieu Esparza PA-C [address] [place] [address] Referring Orthopedics 09/11/22 Chika Carpenter MD [address] [place] [address] Home Care Provider Orthopedics 09/11/22 Ned Arnold, PT [address] [place] [address] Plasma Center Technician Post Acute Care 09/11/22 Wreath Maker Relationship Specialty Start Date End Date Timothy Correa MD [address] [place] [address] [place] [address] PCP - General Family Medicine 11/06/20 Wreath Maker Relationship Specialty Start Date End Date Timothy Correa PCP - General Family Medicine 03/01/13 Matthieu Esparza PA-C [address] [place] [address] Referring Orthopedics 09/11/22 Chika Carpenter MD [address] [place] [address] Home Care Provider Orthopedics 09/11/22 Ned Arnold, PT [address] [place] [address] Plasma Center Technician Post Acute Care 09/11/22 Wreath Maker Relationship Specialty Start Date End Date Phill Timothy Coronado PCP - General Family Medicine 03/01/13 Matthieu Esparza PA-C [address] [place] [address] Referring Orthopedics 09/11/22 Chika Carpenter MD [address] [place] [address] Home Care Provider Orthopedics 09/11/22 Ned Arnold, PT [address] [place] [address] Plasma Center Technician Post Acute Care 09/11/22 Wreath Maker Relationship Specialty Start Date End Date Timothy Correa PCP - General Family Medicine 03/01/13 Matthieu Esparza PA-C [address] [place] [address] Referring Orthopedics 09/11/22 Chika Carpenter MD [address] [place] [address] [phone] Home Care Provider Orthopedics 09/11/22 Ned Arnold, PT [address] [place] [address] Plasma Center Technician Post Acute Care 09/11/22 Wreath Maker Relationship Specialty Start Date End Date Timothy Correa MD [address] [place] [address] [place] [address] PCP - General Family Medicine 11/06/20 Wreath Maker Relationship Specialty Start Date End Date Timothy Correa MD [address] [facility] [place] [address] PCP - General Family Medicine 11/06/20 Wreath Maker Relationship Specialty Start Date End Date Timothy Correa MD [address] [facility] [place] [address] PCP - General Family Medicine 11/06/20 Wreath Maker Relationship Specialty Start Date End Date Timothy Correa MD [address] [facility] [place] [address] PCP - General Family Medicine 11/06/20 Wreath Maker Relationship Specialty Start Date End Date Timothy Correa PCP - General Family Medicine 03/01/13 Matthieu Esparza PA-C [address] [place] [address] Referring Orthopedics 09/11/22 Chika Carpenter MD [address] [place] [address] Home Care Provider Orthopedics 09/11/22 Ned Arnold, PT [address] [place] [address] Plasma Center Technician Post Acute Care 09/11/22 Wreath Maker Relationship Specialty Start Date End Date Phill Timothy Coronado PCP - General Family Medicine 03/01/13 Matthieu Esparza PA-C [address] [place] [address] Referring Orthopedics 09/11/22 Chika Carpenter MD [address] [place] [address] Home Care Provider Orthopedics 09/11/22 Ned Arnold, PT [address] [place] [address] Plasma Center Technician Post Acute Care 09/11/22 Wreath Maker Relationship Specialty Start Date End Date PhillTimothy PCP - General Family Medicine 03/01/13 Rony Doyle, [facility] [address] [place] [address] Specialty Train Station Agent Orthopedics 07/29/22 10/13/22 Matthieu Esparza PA-C [address] [place] [address] Referring Orthopedics 09/11/22 Chika Carpenter MD [address] [place] [address] Home Care Provider Orthopedics 09/11/22 Ned Arnold, PT [address] [place] [address] Plasma Center Technician Post Acute Care 09/11/22 Wreath Maker Relationship Specialty Start Date End Date Timothy Correa PCP - General Family Medicine 03/01/13 Rony Doyle [facility] [address] [place] [address] Specialty Train Station Agent Orthopedics 07/29/22 10/13/22 Wreath Maker Relationship Specialty Start Date End Date Timothy Correa MD [address] [facility] [place] [address] PCP - General Family Medicine 11/06/20 Wreath Maker Relationship Specialty Start Date End Date Timotyh Correa MD [address] [facility] [place] [address] PCP - General Family Medicine 11/06/20 Wreath Maker Relationship Specialty Start Date End Date Timothy Correa MD [address] [facility] [place] [address] PCP - General Family Medicine 11/06/20 Wreath Maker Relationship Specialty Start Date End Date Timothy Correa MD [address] [facility] [place] [address] PCP - General Family Medicine 11/06/20 Wreath Maker Relationship Specialty Start Date End Date Timothy Correa MD [address] [facility] [place] [address] PCP - General Family Medicine 11/06/20 Wreath Maker Relationship Specialty Start Date End Date Timothy Correa MD [address] [facility] [place] [address] PCP - General Family Medicine 11/06/20 Source Comments (unrecognize d section and content) In the event this informatio n is protected by the Federal Confidentiality of Alcohol and Drug Abuse Patient Records regulations: The Federal rules restrict any use of the information to criminally investigate or prosecute any alcohol or drug abuse patient.[facility] the event this information is protected by the Federal Confidentiality of Alcohol and Drug Abuse Patient Records regulations: The Federal rules restrict any use of the information to criminally investigate or prosecute any alcohol or drug abuse patient.[facility] the event this information is protected by the Federal Confidentiality of Alcohol and Drug Abuse Patient Records regulations: The Federal rules restrict any use of the information to criminally investigate or prosecute any alcohol or drug abuse patient.[facility] the event this information is protected by the Federal Confidentiality of Alcohol and Drug Abuse Patient Records regulations: The Federal rules restrict any use of the information to criminally investigate or prosecute any alcohol or drug abuse patient.[facility] HospitalIn the event this information is protected by the Federal Confidentiality of Alcohol and Drug Abuse Patient Records regulations: The Federal rules restrict any use of the information to criminally investigate or prosecute any alcohol or drug abuse patient.[facility] HospitalIn the event this information is protected by the Federal Confidentiality of Alcohol and Drug Abuse Patient Records regulations: The Federal rules restrict any use of the information to criminally investigate or prosecute any alcohol or drug abuse patient.[facility] HospitalIn the event this information is protected by the Federal Confidentiality of Alcohol and Drug Abuse Patient Records regulations: The Federal rules restrict any use of the information to criminally investigate or prosecute any alcohol or drug abuse patient.[facility] HospitalIn the event this information is protected by the Federal Confidentiality of Alcohol and Drug Abuse Patient Records regulations: The Federal rules restrict any use of the information to criminally investigate or prosecute any alcohol or drug abuse patient.[facility] HospitalIn the event this information is protected by the Federal Confidentiality of Alcohol and Drug Abuse Patient Records regulations: The Federal rules restrict any use of the information to criminally investigate or prosecute any alcohol or drug abuse patient.[facility] HospitalIn the event this information is protected by the Federal Confidentiality of Alcohol and Drug Abuse Patient Records regulations: The Federal rules restrict any use of the information to criminally investigate or prosecute any alcohol or drug abuse patient.[facility] HospitalIn the event this information is protected by the Federal Confidentiality of Alcohol and Drug Abuse Patient Records regulations: The Federal rules restrict any use of the information to criminally investigate or prosecute any alcohol or drug abuse patient.[facility] HospitalIn the event this information is protected by the Federal Confidentiality of Alcohol and Drug Abuse Patient Records regulations: The Federal rules restrict any use of the information to criminally investigate or prosecute any alcohol or drug abuse patient.[facility] HospitalIn the event this information is protected by the Federal Confidentiality of Alcohol and Drug Abuse Patient Records regulations: The Federal rules restrict any use of the information to criminally investigate or prosecute any alcohol or drug abuse patient.[facility] HospitalIn the event this information is protected by the Federal Confidentiality of Alcohol and Drug Abuse Patient Records regulations: The Federal rules restrict any use of the information to criminally investigate or prosecute any alcohol or drug abuse patient.[facility] HospitalIn the event this information is protected by the Federal Confidentiality of Alcohol and Drug Abuse Patient Records regulations: The Federal rules restrict any use of the information to criminally investigate or prosecute any alcohol or drug abuse patient.[facility] HospitalIn the event this information is protected by the Federal Confidentiality of Alcohol and Drug Abuse Patient Records regulations: The Federal rules restrict any use of the information to criminally investigate or prosecute any alcohol or drug abuse patient.[facility] HospitalIn the event this information is protected by the Federal Confidentiality of Alcohol and Drug Abuse Patient Records regulations: The Federal rules restrict any use of the information to criminally investigate or prosecute any alcohol or drug abuse patient.[facility] HospitalIn the event this information is protected by the Federal Confidentiality of Alcohol and Drug Abuse Patient Records regulations: The Federal rules restrict any use of the information to criminally investigate or prosecute any alcohol or drug abuse patient.[facility] HospitalIn the event this information is protected by the Federal Confidentiality of Alcohol and Drug Abuse Patient Records regulations: The Federal rules restrict any use of the information to criminally investigate or prosecute any alcohol or drug abuse patient.[facility] HospitalIn the event this information is protected by the Federal Confidentiality of Alcohol and Drug Abuse Patient Records regulations: The Federal rules restrict any use of the information to criminally investigate or prosecute any alcohol or drug abuse patient.[facility] HospitalIn the event this information is protected by the Federal Confidentiality of Alcohol and Drug Abuse Patient Records regulations: The Federal rules restrict any use of the information to criminally investigate or prosecute any alcohol or drug abuse patient.[facility] HospitalIn the event this information is protected by the Federal Confidentiality of Alcohol and Drug Abuse Patient Records regulations: The Federal rules restrict any use of the information to criminally investigate or prosecute any alcohol or drug abuse patient.[facility] HospitalIn the event this information is protected by the Federal Confidentiality of Alcohol and Drug Abuse Patient Records regulations: The Federal rules restrict any use of the information to criminally investigate or prosecute any alcohol or drug abuse patient.[facility] HospitalIn the event this information is protected by the Federal Confidentiality of Alcohol and Drug Abuse Patient Records regulations: The Federal rules restrict any use of the information to criminally investigate or prosecute any alcohol or drug abuse patient.[facility] HospitalIn the event this information is protected by the Federal Confidentiality of Alcohol and Drug Abuse Patient Records regulations: The Federal rules restrict any use of the information to criminally investigate or prosecute any alcohol or drug abuse patient.[facility] HospitalIn the event this information is protected by the Federal Confidentiality of Alcohol and Drug Abuse Patient Records regulations: The Federal rules restrict any use of the information to criminally investigate or prosecute any alcohol or drug abuse patient.[facility] HospitalIn the event this information is protected by the Federal Confidentiality of Alcohol and Drug Abuse Patient Records regulations: The Federal rules restrict any use of the information to criminally investigate or prosecute any alcohol or drug abuse patient.[facility] HospitalIn the event this information is protected by the Federal Confidentiality of Alcohol and Drug Abuse Patient Records regulations: The Federal rules restrict any use of the information to criminally investigate or prosecute any alcohol or drug abuse patient.[facility] HospitalIn the event this information is protected by the Federal Confidentiality of Alcohol and Drug Abuse Patient Records regulations: The Federal rules restrict any use of the information to criminally investigate or prosecute any alcohol or drug abuse patient.[facility] HospitalIn the event this information is protected by the Federal Confidentiality of Alcohol and Drug Abuse Patient Records regulations: The Federal rules restrict any use of the information to criminally investigate or prosecute any alcohol or drug abuse patient.[facility] HospitalIn the event this information is protected by the Federal Confidentiality of Alcohol and Drug Abuse Patient Records regulations: The Federal rules restrict any use of the information to criminally investigate or prosecute any alcohol or drug abuse patient.[facility] HospitalIn the event this information is protected by the Federal Confidentiality of Alcohol and Drug Abuse Patient Records regulations: The Federal rules restrict any use of the information to criminally investigate or prosecute any alcohol or drug abuse patient.[facility] HospitalIn the event this information is protected by the Federal Confidentiality of Alcohol and Drug Abuse Patient Records regulations: The Federal rules restrict any use of the information to criminally investigate or prosecute any alcohol or drug abuse patient.[facility] HospitalIn the event this information is protected by the Federal Confidentiality of Alcohol and Drug Abuse Patient Records regulations: The Federal rules restrict any use of the information to criminally investigate or prosecute any alcohol or drug abuse patient.[facility] HospitalIn the event this information is protected by the Federal Confidentiality of Alcohol and Drug Abuse Patient Records regulations: The Federal rules restrict any use of the information to criminally investigate or prosecute any alcohol or drug abuse patient.[facility] HospitalIn the event this information is protected by the Federal Confidentiality of Alcohol and Drug Abuse Patient Records regulations: The Federal rules restrict any use of the information to criminally investigate or prosecute any alcohol or drug abuse patient.[facility] HospitalIn the event this information is protected by the Federal Confidentiality of Alcohol and Drug Abuse Patient Records regulations: The Federal rules restrict any use of the information to criminally investigate or prosecute any alcohol or drug abuse patient.[facility] HospitalIn the event this information is protected by the Federal Confidentiality of Alcohol and Drug Abuse Patient Records regulations: The Federal rules restrict any use of the information to criminally investigate or prosecute any alcohol or drug abuse patient.[facility] HospitalIn the event this information is protected by the Federal Confidentiality of Alcohol and Drug Abuse Patient Records regulations: The Federal rules restrict any use of the information to criminally investigate or prosecute any alcohol or drug abuse patient.[facility] HospitalIn the event this information is protected by the Federal Confidentiality of Alcohol and Drug Abuse Patient Records regulations: The Federal rules restrict any use of the information to criminally investigate or prosecute any alcohol or drug abuse patient.[facility] HospitalIn the event this information is protected by the Federal Confidentiality of Alcohol and Drug Abuse Patient Records regulations: The Federal rules restrict any use of the information to criminally investigate or prosecute any alcohol or drug abuse patient.[facility] HospitalIn the event this information is protected by the Federal Confidentiality of Alcohol and Drug Abuse Patient Records regulations: The Federal rules restrict any use of the information to criminally investigate or prosecute any alcohol or drug abuse patient.[facility] HospitalIn the event this information is protected by the Federal Confidentiality of Alcohol and Drug Abuse Patient Records regulations: The Federal rules restrict any use of the information to criminally investigate or prosecute any alcohol or drug abuse patient.[facility] HospitalIn the event this information is protected by the Federal Confidentiality of Alcohol and Drug Abuse Patient Records regulations: The Federal rules restrict any use of the information to criminally investigate or prosecute any alcohol or drug abuse patient.[facility] HospitalIn the event this information is protected by the Federal Confidentiality of Alcohol and Drug Abuse Patient Records regulations: The Federal rules restrict any use of the information to criminally investigate or prosecute any alcohol or drug abuse patient.[facility] HospitalIn the event this information is protected by the Federal Confidentiality of Alcohol and Drug Abuse Patient Records regulations: The Federal rules restrict any use of the information to criminally investigate or prosecute any alcohol or drug abuse patient.[facility] HospitalIn the event this information is protected by the Federal Confidentiality of Alcohol and Drug Abuse Patient Records regulations: The Federal rules restrict any use of the information to criminally investigate or prosecute any alcohol or drug abuse patient.[facility] HospitalIn the event this information is protected by the Federal Confidentiality of Alcohol and Drug Abuse Patient Records regulations: The Federal rules restrict any use of the information to criminally investigate or prosecute any alcohol or drug abuse patient.[facility] HospitalIn the event this information is protected by the Federal Confidentiality of Alcohol and Drug Abuse Patient Records regulations: The Federal rules restrict any use of the information to criminally investigate or prosecute any alcohol or drug abuse patient.[facility] HospitalIn the event this information is protected by the Federal Confidentiality of Alcohol and Drug Abuse Patient Records regulations: The Federal rules restrict any use of the information to criminally investigate or prosecute any alcohol or drug abuse patient.[facility] HospitalIn the event this information is protected by the Federal Confidentiality of Alcohol and Drug Abuse Patient Records regulations: The Federal rules restrict any use of the information to criminally investigate or prosecute any alcohol or drug abuse patient.[facility] HospitalIn the event this information is protected by the Federal Confidentiality of Alcohol and Drug Abuse Patient Records regulations: The Federal rules restrict any use of the information to criminally investigate or prosecute any alcohol or drug abuse patient.[facility] HospitalIn the event this information is protected by the Federal Confidentiality of Alcohol and Drug Abuse Patient Records regulations: The Federal rules restrict any use of the information to criminally investigate or prosecute any alcohol or drug abuse patient.[facility] HospitalIn the event this information is protected by the Federal Confidentiality of Alcohol and Drug Abuse Patient Records regulations: The Federal rules restrict any use of the information to criminally investigate or prosecute any alcohol or drug abuse patient.[facility] HospitalIn the event this information is protected by the Federal Confidentiality of Alcohol and Drug Abuse Patient Records regulations: The Federal rules restrict any use of the information to criminally investigate or prosecute any alcohol or drug abuse patient.[facility] HospitalIn the event this information is protected by the Federal Confidentiality of Alcohol and Drug Abuse Patient Records regulations: The Federal rules restrict any use of the information to criminally investigate or prosecute any alcohol or drug abuse patient.[facility] HospitalIn the event this information is protected by the Federal Confidentiality of Alcohol and Drug Abuse Patient Records regulations: The Federal rules restrict any use of the information to criminally investigate or prosecute any alcohol or drug abuse patient.[facility] HospitalIn the event this information is protected by the Federal Confidentiality of Alcohol and Drug Abuse Patient Records regulations: The Federal rules restrict any use of the information to criminally investigate or prosecute any alcohol or drug abuse patient.[facility] HospitalIn the event this information is protected by the Federal Confidentiality of Alcohol and Drug Abuse Patient Records regulations: The Federal rules restrict any use of the information to criminally investigate or prosecute any alcohol or drug abuse patient.[facility] FOR RECORDS PERTAINING TO PATIENTS WHO [...] BE BASED ON THE PRIMARY CLINICAL RECORDS. [facility] [employer] [facility]. provides no warranty or guarantee of the accuracy or completeness of information in this document.
--- OUTSIDE RECORDS SUMMARY | 2025-02-05 15:44 | XMS RPT_ITS | CCD ---
Author Organization [facility] Inform ion [facility] Care Team Providers Care Poultry Eviscerator Name Role Phone Timothy Correa Primary Care Provider Unavailable Primary Care Provider UnavailTimothy Elaine MD Primary Care Provider [phone] Timothy Correa Primary Care Provider Timothy Correa MD Primary Care Provider Timothy Correa Primary Care Provider [phone] Timothy Correa Primary Care Provider Sissen PSS, [...] Attending Unavailable Surso, Gutierrez Primary Care Provider [phone] Rony Dejesus Unavailable Unavailable Unavailable Primary Care [...] HYDROcodone; Translations: [HYDROCODONE-ACETA MINOPHEN] Drug Allergy 5 [place], [place] (20 sources) Codeine; Translations: [CODEINE] Drug Allergy 0 Rash [place], [place] (20 sources) Morphine; Translations: [MORPHINE] Drug Allergy 1 [facility] (1 source) Codeine Drug Allergy 5 [facility] (1 source) Morphine Drug Allergy 4 [facility] Medications Current Medications Medication Drug Class(es) Dates Sig (Normalized) Sig (Original) acetaminophen 500 mg oral tablet (20 sources) Start: 09-11-2022 take 2 tablets by mouth every eight hours as needed Acetaminophen Extra Strength 500 MG tablet Take 1,000 mg by mouth every 8 hours as needed. 09/11/2022 Active Comment on above: Take 2 tablets by [facility] every 8 hours as needed [...] days. 60 Tablet 0 10/27/2023 11/11/2023 Active [id number] 200 actuat albuterol 0.09 mg/actuat metered dose [...] Comment on above: Take 1 capsule by [facility] once daily. disability placard (11 [...] Comment on above: Take 1 tablet by [facility] once daily. metFORMIN hydrochloride 500 [...] including day of surgery. polyethylene glycol 3350 57665 mg powder for oral solution (8 sources) [...] on above: Take 1 capsule by [facility] twice daily as needed for constipation. [...] (19 sources) Patient encounter status; Translations: [Other terminologist (current) drug therapy] Onset: 05-25-2016 09-19-2020 Episodic Other aftercare (5 sources) Long-term (current) use of other medications Onset: 05-25-2016 09-19-2020 Episodic Other aftercare (6 sources) Long-term current use of drug therapy; Translations: [Other terminologist (current) drug therapy] Onset: 05-25-2016 09-19-2020 Episodic [...] Interpretation Reference Range Facility Addendum Noteon 01-17-2025 Supervisor Cytology Authentication Interface Message Text Addended by: TIMOTHY CORREA on: 01/17/2025 09:15 PM Modules accepted: Orders Normal [facility] Assessment AND Plan Noteon 0 10-18-2024 Supervisor Cytology Authentication Interface Message Text Normal [facility] Supervisor Cytology Authentication Interface Message Text Orders: tirzepatide (MOUNJARO) 2.5 MG/0.5ML pen; Inject 2.5 mg under the skin once weekly. Normal [facility] Patient Instructionson 10-18 Supervisor Cytology Authentication Interface Message Text Today the following vaccines were administered: Pneumococcal Conjugate (PCV 20). Vaccines may have different side effects and care recommendations. Please refer to the Vaccine Information Sheet(s) (VIS) provided in your preferred language to learn more about the vaccines that were administered today. If you have any problems or questions, please call the FRS line at [phone]. Normal [facility] Progress Noteson 10-18-2024 Supervisor Cytology Authentication Interface Message Text ANNUAL WELLNESS VISIT Subjective Mr. Osborn is a 64 year old who is being seen for his Annual Wellness Visit. I have reviewed and updated the following information (Care Team, Medical History, Surgical History, Social History, Family History and current medications including mglr-tjd-[id number] medications and supplements): Patient Care Team: Timothy [...] Session: Patient declined Stress: Patient Declined (08/12/2024) [place] [employer] - Occupational Stress Questionnaire Feeling of Stress : Patient declined Social Connections: Unknown (08/12/2024) Social Connection and Isolation Panel [NHANES] Frequency of Communication with Friends and Family: Patient declined Frequency of Social Gatherings with Friends and Family: Patient declined Attends Caodaism Services: Patient declined Active Member of Clubs [...] / Excessive Appetite?: Not at all Self Bond?: Not at all Trouble Concentrating?: Not at [...] 10/18/2024 (more content not included)... Normal The [employer] Controls[facility] Interface Message Text Patient was identified by name and date of . Jeanie Perkins MA During this visit the vaccine(s) was: Administered Provider received consent from patient/parent/patient member service representative for immunization(s) as ordered, questionnaire completed and VIS educational handouts reviewed with patient/parent/patient member service representative who denies contraindications Double identification of patient completed with patient/parent/patient member service representative using name and prior to administration, and patient tolerated immunization(s) administration without incident. Normal [facility] Progress Noteson 10-16-2024 Supervisor Cytology Authentication Interface Message Text Your blood counts, liver function, kidney function, thyroid function and cholesterol were normal. The hemoglobin A1c shows good control of blood sugar. The vitamin B12 levels and vitamin-D levels were good. Normal The [facility] BASIC METABOLIC PANELon 03-0 Anion gap [Moles/Vol] 13 mmol/L Normal 10-20 [facility] Comment on above: Performed By: #### C H8, HEPATIC, HDL, PSA #### [facility] [address] [place] [address], Calcium [Mass/Vol] 9.0 mg/dL Normal 8.6-10.3 [facility] Comment on above: Performed By: #### C H8, HEPATIC, HDL, PSA #### [facility] [address] [place] [address], Chloride [Moles/Vol] 103 mmol/L Normal 98-107 [facility] Comment on above: Performed By: #### C H8, HEPATIC, HDL, PSA #### [facility] [address] [place] [address], CO2 [Moles/Vol] 28 mmol/L Normal 21-31 [facility] Comment on above: Performed By: #### C H8, HEPATIC, HDL, PSA #### [facility] [address] [place] [address], Creatinine [Mass/Vol] 0.68 mg/dL Low 0.70-1.30 [facility] Comment on above: Performed By: #### C H8, HEPATIC, HDL, PSA #### [facility] [address] [place] [address], ESTIMATED GFR (CKD-EPI) 103 mL/min/1.73sqm Normal >=60 The [facility] Comment on above: Result Comment: 2020 [...] Inclusion of Race in Diagnosing Kidney Disease. [place]ian Journal of Kidney Diseases 2021;79(2):268-88.e1. 2. N Engl J Med 1 Vol. 385 Issue 19 Pages 8039-4982 Performed By: #### Daniel H8, HEPATIC, HDL, PSA #### [facility] [address] [place], [place], Glucose [Mass/Vol] 140 mg/dL High 74-109 [facility] Comment on above: Performed By: #### Daniel H8, HEPATIC, HDL, PSA #### [facility] [address], [place], Potassium [Moles/Vol] 4.1 mmol/L Normal 3.5-5.0 [facility] Comment on above: Performed By: #### Daniel H8, HEPATIC, HDL, PSA #### [facility] [address], [place], Sodium [Moles/Vol] 140 mmol/L Normal 136-145 [facility] Comment on above: Performed By: #### Daniel H8, HEPATIC, HDL, PSA #### [facility] [address], [place], Urea nitrogen [Mass/Vol] 11 mg/dL Normal 7-25 [facility] Comment on above: Performed By: #### Daniel H8, HEPATIC, HDL, PSA #### [facility] [address], [place], CBC WITH DIFFERENTIALon 03-0 -2024 Basophils (Bld) [#/Vol] 0.07 10*3/uL Normal 0.00-0.20 [facility] Comment on above: Performed By: #### C BCDSAT ####[facility] [id number] [place], [place], Basophils/100 WBC (Bld) 1.0 % Normal <=1.9 [facility] Comment on above: Performed By: #### C BCDSAT ####[facility] [id number] [place], [place], Eosinophils (Bld) [#/Vol] 0.22 10*3/uL Normal 0.00-0.70 [facility] Comment on above: Performed By: #### C BCDSAT ####[facility] [id number] [place], [place], Eosinophils/100 WBC (Bld) 3.3 % Normal 0.1-4.0 The [facility] Comment on above: Performed By: #### C BCDSAT ####[facility]OLOG[facility] [id number] [place], [place], Erythrocyte distribution width (RBC) [Ratio] 17.1 % High 11.5-14.5 The [facility] Comment on above: Performed By: #### C BCDSAT ####[facility]OLOG[facility] [id number] [place], [place], Hematocrit (Bld) [Volume fraction] 40.2 % Low 41.0-53.0 The [facility] Comment on above: Performed By: #### C BCDSAT ####[facility] [id number] [place] [address], Hemoglobin (Bld) [Mass/Vol] 13.2 g/dL Low 13.9-16.3 The [facility] Comment on above: Performed By: #### C BCDSAT ####[facility] PATHOLOGY [id number] [place] [address], Lymphocytes (Bld) [#/Vol] 2.48 10*3/uL Normal 1.00-4.80 The [facility] Comment on above: Performed By: #### C BCDSAT ####[facility]OLOGY [id number] [place] [address], Lymphocytes/100 WBC (Bld) 36.5 % Normal 24.0-44.0 The [facility] Comment on above: Performed By: #### C BCDSAT ####[facility]OLOG[facility] [id number] [place], [place], MCH (RBC) [Entitic mass] 25.6 pg Low 26.0-34.0 The [facility] Comment on above: Performed By: #### C BCDSAT ####[facility] PATHOLOG[facility] [id number] [place] [address], MCHC (RBC) [Mass/Vol] 32.9 g/dL Normal 32.0-35.9 The [facility] Comment on above: Performed By: #### Daniel BORJAAT ####[facility] [id number] [place], [place], MCV (RBC) [Entitic vol] 78 fL Low 80-100 The [facility] Comment on above: Performed By: #### Daniel BORJAAT ####[facility]OLOG[facility] [id number] [place] [address], Monocytes (Bld) [#/Vol] 0.81 10*3/uL Normal 0.20-1.00 The [facility] Comment on above: Performed By: #### Daniel BORJAAT ####[facility] PATHOLOG[facility] [id number] [place] [address], Monocytes/100 WBC (Bld) 12.0 % High 2.0-11.0 The [facility] Comment on above: Performed By: #### Daniel BORJAAT ####[facility]OLOG[facility] [id number] [place] [address], Neutrophils (Bld) [#/Vol] 3.20 10*3/uL Normal 1.50-8.00 The [facility] Comment on above: Performed By: #### Daniel BORJAAT ####[facility] [id number] [place] [address], Neutrophils/100 WBC (Bld) 47.2 % Normal 31.0-76.0 The [facility] Comment on above: Performed By: #### Daniel BORJAAT ####[facility] PATHOLOGY [id number] [place] [address], Platelet mean volume (Bld) [Entitic vol] 8.4 fL Normal 7.5-11.2 The [facility] Comment on above: Performed By: #### Daniel BORJAAT ####[facility]OLOG[facility] [id number] [place], [place], Platelets (Bld) [#/Vol] 302 10*3/uL Normal 150-400 The [facility] Comment on above: Performed By: #### Daniel BORJAAT ####[facility] [id number] [place], [place], RBC (Bld) [#/Vol] 5.16 10*6/uL Normal 4.50-5.90 The [facility] Comment on above: Performed By: #### C BCDSAT ####[facility] [id number] [place], [place], WBC (Bld) [#/Vol] 6.8 10*3/uL Normal 4.5-11.5 The [facility] Comment on above: Performed By: #### C BCDSAT ####[facility] [id number] [place], [place], FULL LIPID PROFILEon 025 Cholesterol [Mass/Vol] 140 mg/dL Normal <200 The [facility] Comment on above: Result Comment: Lizette rable: < 200 mg/dL Borderline High: 200-239 mg/dL High: > = 240 mg/dL Performed By: #### C H8, HEPATIC, HDL, PSA ####[facility] [id number] [place] [address], Cholesterol in LDL [Mass/Vol] 88 mg/dL Normal <100 The [facility] Comment on above: Performed By: #### C H8, HEPATIC, HDL, PSA ####[facility] [id number] [place] [address], Cholesterol.total/Cho lesterol in HDL [Mass ratio] 3.89 {ratio} Normal <5.00 The [facility] Comment on above: Performed By: #### C H8, HEPATIC, HDL, PSA ####[facility] [id number] [place], [place], HDL CHOL 36 mg/dL Low >40 The [facility] Comment on above: Performed By: #### C H8, HEPATIC, HDL, PSA ####[facility] [id number] [place] [address], LDL/HDL 2.44 Normal <3.57 The [facility] Comment on above: Performed By: #### C H8, HEPATIC, HDL, PSA ####[facility] [id number] [place] [address], NON-HDL CHOLESTEROL 104 mg/dL Normal <130 The [facility] Comment on above: Performed By: #### C H8, HEPATIC, HDL, PSA ####[facility] [id number] [place], [place], Triglyceride [Mass/Vol] 121 mg/dL Normal <150 The [facility] Comment on above: Result Comment: Norm al: < 150 mg/dL Borderline High: 150-199 mg/dL High: 200-499 mg/dL Very High: > = 500 mg/dL Performed By: #### C H8, HEPATIC, HDL, PSA ####[facility] [id number] [place], [place], HEMOGLOBIN A1Con 10-14-2024 Glucose [Mass/Vol] 154 mg/dL Normal The [facility] Comment on above: Performed By: #### H B A1C ####[facility] [address] [place], [place], HbA1c (Bld) [Mass fraction] 7.0 % High 4.0-5.6 The [facility] Comment on above: Performed By: #### H B A1C ####[facility] [address] [place], [address] HEPATIC FUNCTION PANELon Albumin [Mass/Vol] 4.4 g/dL Normal 3.5-5.7 The [facility] Comment on above: Performed By: #### C H8, HEPATIC, HDL, PSA #### [facility] [address] [place] [address], ALK 67 IU/L Normal 34-104 The [facility] Comment on above: Performed By: #### C H8, HEPATIC, HDL, PSA #### [facility] [address] [place] [address], ALT [Catalytic activity/Vol] 23 U/L Normal 7-52 The [facility] Comment on above: Performed By: #### C H8, HEPATIC, HDL, PSA #### [facility] [address] [place] [address], AST [Catalytic activity/Vol] 20 U/L Normal 13-39 [facility] Comment on above: Performed By: #### C H8, HEPATIC, HDL, PSA #### S [facility] [address] [place] [address], Bilirubin [Mass/Vol] 0.9 mg/dL Normal 0.3-1.0 The [facility] Comment on above: Performed By: #### C H8, HEPATIC, HDL, PSA #### S [facility] [address] [place] [address], Bilirubin.direct [Mass/Vol] 0.17 mg/dL Normal 0.03-0.18 The [facility] Comment on above: Performed By: #### C H8, HEPATIC, HDL, PSA #### S [facility] [address] [place] [address], Protein [Mass/Vol] 6.8 g/dL Normal 6.0-8.3 The [facility] Comment on above: Performed By: #### C H8, HEPATIC, HDL, PSA #### [facility] [address] [place] [address], MICROALBUMIN, URINEon 2024 Albumin DL <= 20 mg/L (U) [Mass/Vol] mg/dL Normal [facility] Comment on above: Order Comment: Note updated reference ranges. Performed By: #### U R MA #### S [facility] [address] [place] [address], CREATININE, URINE 58 mg/dL Normal The [facility] Comment on above: Order Comment: Note updated reference ranges. Performed By: #### U R MA #### S [facility] [address] [place] [address], MICRO-ALBUMIN/CREAT RATIO < 12 Normal <=30 The [facility] Comment on above: Order Comment: Note updated reference ranges. Performed By: #### U R MA #### [facility] [address] [place] [address], Progress Noteson 10-14-2024 Supervisor Cytology Authentication Interface Message Text Identity was confirmed by verifying patient name and date of . Blood drawn for patient. Blood obtained from right arm, using 21 gauge butterfly. Patient denies discomfort, bleeding controlled, bandage applied. Site appears normal. Urine sample obtained, placed in proper tube for transportation to lab for processing. Normal [facility] TSHon 10-14-2024 TSH 1.035 uIU/mL Normal 0.450-5.330 [facility] Comment on above: Performed By: #### T SH HS, VITB12 #### [facility] [address] [place] [address], VITAMIN B12 (CYANOCOBALAMIN) on 10-14-2024 Cobalamin (Vitamin B12) [Mass/Vol] 1591 pg/mL High 180-914 The [facility] Comment on above: Order Comment: Defic ient: <= 145 pg/mL Insufficient: 145 - 180 pg/mL Sufficient: 180 - 914 pg/mL Performed By: #### T SH HS, VITB12 #### [facility] [address] [place] [address], VITAMIN D, 25-HYDROXYon VITD25 43.2 ng/mL Normal 30-100 [facility] Comment on above: Order Comment: Defic ient : <20.0 ng/mL Insufficient : 20.0-29.9 ng/mL Sufficient : 30.0 - 100.0 ng/mL Potential Toxicity : >100.0 ng/mL Performed By: #### V ITD25 #### [facility] [address] [place] [address], Telephone Encounteron 2024 Supervisor Cytology Authentication Interface Message Text Left message on patient's VM that lab orders have been placed and he can report to the office to have drawn. Nothing further needed at this time Normal [facility] Telephone Encounteron 2024 Supervisor Cytology Authentication Interface Message Text Pt is scheduled for office visit with PCP on 10/18/24. Would like to have labs drawn prior to this appointment due to fasting restrictions, Please place orders in chart if appropriate and send Aleret message to patient advising he can come have drawn. Normal [facility] [address] Telephone Encounteron 2024 Supervisor Cytology Authentication Interface Message Text Lm on pt vm that appt is Cx. Asked for return call or go on [employer] to r/s. Also sending [employer] message. Normal [facility] Surgery Visit Reporton 09-10 Surgery Visit Report [facility] [address] [place] [address] OFFICE VISIT Date of Service: 09/10/24 MR#: [id number] Acct: [id number] Name: ROBERTO OSBORN Rep #: [id number] : 1960 Provider: Dr. Bunny baig MD Age/Sex: 64/M Location: [facility] Status: Signed Intake Vital Signs [...] you fallen in the past year?: No [facility] Medical History (Updated 09/10/24 @ 08:57 [...] healthy appearing, comfortable and no acute distress [facility] Head: normal to inspection, normocephalic and atraumatic Eyes General: appearance normal, both eyes and all related structures Neck Neck: normal visual inspection GI Other: Abdomen is soft, nontender and nondistended. Examination of the left lateral abdomen near the waistline does reveal some asymmetric swelling compared to the right. I really do not appreciate any obvious dorcas (more content not included)... Normal [facility] Telephone Encounteron 2024 Supervisor Cytology Authentication Interface Message Text Situation: calling asking for images of CT to be forwarded to their office. Background: na Assessment: na Recommendation: provided with number to medical records and call was transferred [phone] Normal [facility] Progress Noteson 09-06-2024 Supervisor Cytology Authentication Interface Message Text HPI: Roberto is [...] Diagnoses and all orders for this visit: [facility] abdominal mass - EXTERNAL SERVICE REQUEST FOR CARE OUTSIDE THE [employer] SYSTEM Normal [facility] Supervisor Cytology Authentication Interface Message Text Patient was identified by name and date of . Jeanie Prekins MA Normal [facility] CT ABDOMEN/PELVIS W/O CONTRA STon 08-20-2024 CT ABDOMEN/PELVIS W/O CONTRAST EXAMINATION: CT ABDOMEN/PELVIS W/O CONTRAST 08/19/2024 01:57 PM CLINICAL HISTORY: Abdominal mass, neoplasm suspected ASSOCIATED DIAGNOSIS: [facility] abdominal mass ORDERING PROVIDER: TIMOTHY CORREA [...] as noted above. MACRO: None Normal [facility] Progress Noteson 08-16-2024 Supervisor Cytology Authentication Interface Message Text HPI: Roberto presents [...] an (more content not included)... Normal [facility] [address] Supervisor Cytology Authentication Interface Message Text Identification was verified by patient verbalizing his name and date of . Normal [facility] [address] Supervisor Cytology Authentication Interface Message Text Patient was identified by name and date of . HARVINDER Miller/MPA Normal [facility] Neurology Visit Reporton Neurology Visit Report [facility] [address], [address] [place] [address] OFFICE VISIT Date of Service: 06/14/24 MR#: [id number] Acct: [id number] Name: ROBERTO OSBORN Rep #: [id number] : 1960 Provider: Dr. Adryan angel MD Age/Sex: 64/M Location: [facility] Status: Signed HPI HPI Chief Complaint: Establish Care Details: The patient is a 64-year-old right handed male who presents to [facility]. He self referred for left leg pain due to lower back pain. He had EMG/NCS done 03/2024 that revealed polyneuropathy. He has been seeing [facility] for this as well, was [...] on 09/24/2023 as well as records from [facility], [facility] where he has been receiving treatment for chronic low back pain. Record indicates patient has had 3 back surgeries. Most recently at L3-4-5 and S1 with fusions that took place at [facility] on 09/09/2023. Patient has also received interventional treatments with back injections and facet injections from [facility]. Patient's current medications include gabapentin 600 [...] x 3. Memory intact. 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 Insight and judgment appear to [...] to t (more content not included)... Normal [facility].doppler Lower extremity v ein - lefton [...] extremity deep venous thrombosis identified. MACRO: None [facility] Radiology Study observation (narrative) [facility] [facility].doppler Lower extremity v ein - leftOrdered By: Anson Levin on 12-16-2023 FRS Work Phone: [employer] 09-24-2023 [employer] HNO ID: [id number] Author: GLADYS LAWRENCE RT(R) Service: ? 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 Basic metabolic 2000 panelon 09-24-2023 Anion gap [Moles/Vol] 12 mmol/L Normal 9-18 [facility] Comment on above: Order Comment: Speci men Type: BLOOD SPECIMEN [facility] Facility: [facility] Address: [address] [place] [address] Performed By: #### 2 4321-2 #### [facility] CLIA [id number] [address] [place] [address] [place] Calcium [Mass/Vol] 9.3 mg/dL Normal 8.5-10.2 [facility] Comment on above: Order Comment: Emilyi men Type: BLOOD SPECIMEN [facility] Facility: [facility] Address: [address] [place] [address] Performed By: #### 2 4321-2 #### [facility] CLIA [id number] [address] [place] [address] [place] Chloride [Moles/Vol] 99 mmol/L Normal 97-105 [facility] Comment on above: Order Comment: Speci men Type: BLOOD SPECIMEN [facility] Facility: [facility] Address: [address] [place] [address] Performed By: #### 2 4321-2 #### [facility] CLIA [id number] [address] [place] [address] [place] CO2 [Moles/Vol] 25 mmol/L Normal 22-30 [facility] Comment on above: Order Comment: Speci men Type: BLOOD SPECIMEN [facility] Facility: [facility] Address: [address] [place] [address] Performed By: #### 2 4321-2 #### [facility] CLIA [id number] [address] [place] [address] [place] Creatinine [Mass/Vol] 0.57 mg/dL Low 0.73-1.22 [facility] Comment on above: Order Comment: Vera grant Type: BLOOD SPECIMEN Ordering Facility: [facility] Address: [address] [place] [address] Performed By: #### 2 4321-2 #### [facility] CLIA [id number] [address] [place] [address] [place] Creatinine and Glomerular filtration rate.predicted panel (S/P/Bld) 109 mL/min/1.73m??? Normal >=60 [facility] Comment on above: Order Comment: Vera juanita Type: BLOOD SPECIMEN [facility] Facility: [facility] Address: [address] [place] [address] Result Comment: Snehal mated Glomerular Filtration Rate [...] Performed By: #### 2 4321-2 #### [facility] CLIA [id number] [address] [place] [address] [place] Glucose [Mass/Vol] 167 mg/dL High 74-99 [facility] Comment on above: Order Comment: Vera juanita Type: BLOOD SPECIMEN [facility] Facility: [facility] Address: [address] [place] [address] Result Comment: The [place] Diabetes Association (ADA) provides guidance for cutoff [...] Standards of Medical Care in Diabetes 2016, [place] [employer] Association. Diabetes Care. 2016.39(Suppl 1). Performed By: #### 2 4321-2 #### [facility] CLIA [id number] [address] [place] [address] [place] Potassium [Moles/Vol] 3.7 mmol/L Normal 3.7-5.1 [facility] Comment on above: Order Comment: Speci men Type: BLOOD SPECIMEN [facility] Facility: [facility] Address: [address] [place] [address] Performed By: #### 2 4321-2 #### [facility] CLIA [id number] [address] [place] [address] STATES [place] [facility] Sodium [Moles/Vol] 136 mmol/L Normal 136-144 [facility] Comment on above: Order Comment: Emilyi men Type: BLOOD SPECIMEN [facility] Facility: [facility] Address: [address] [place] [address] Performed By: #### 2 4321-2 #### [facility] CLIA [id number] [address] [place] [address] [place] Urea nitrogen [Mass/Vol] 7 mg/dL Low 9-24 [facility] Comment on above: Order Comment: Speci men Type: BLOOD SPECIMEN [facility] Facility: [facility] Address: [address] [place] [address] Performed By: #### 2 4321-2 #### [facility] CLIA [id number] [address] [place] [address] [place] CBC panel Auto (Bld)on 09-24 Erythrocyte distribution width (RBC) [Ratio] 14.7 % Normal 11.5-15.0 [facility] Comment on above: Order Comment: Speci men Type: BLOOD SPECIMEN [facility] Facility: [facility] Address: [address] [place] [address] Performed By: #### 5 8410-2 #### [facility] CLIA [id number] [address] [place] [id number] [place] [address] [place] Hematocrit (Bld) [Volume fraction] 36.9 % Low 39.0-51.0 [facility] Comment on above: Order Comment: Speci men Type: BLOOD SPECIMEN [facility] Facility: [facility] Address: [address] [place] [address] Performed By: #### 5 8410-2 #### [facility] CLIA [id number] [address] [place] [address] [place] Hemoglobin (Bld) [Mass/Vol] 12.1 g/dL Low 13.0-17.0 [facility] Comment on above: Order Comment: Speci men Type: BLOOD SPECIMEN [facility] Facility: [facility] Address: [address] [place] [address] Performed By: #### 5 8410-2 #### [facility] CLIA [id number] [address] [place] [address] [place] MCH (RBC) [Entitic mass] 28.7 pg Normal 26.0-34.0 [facility] Comment on above: Order Comment: Speci men Type: BLOOD SPECIMEN [facility] Facility: [facility] Address: [address] [place] [address] Performed By: #### 5 8410-2 #### [facility] CLIA [id number] [address] [place], [place] [id number] [place] [address] [place] MCHC (RBC) [Mass/Vol] 32.8 g/dL Normal 30.5-36.0 [facility] Comment on above: Order Comment: Speci men Type: BLOOD SPECIMEN [facility] Facility: [facility] Address: [address] [place] [address] Performed By: #### 5 8410-2 #### [facility] CLIA [id number] [address] [place] [address] [place] MCV (RBC) [Entitic vol] 87.4 fL Normal 80.0-100.0 [facility] Comment on above: Order Comment: Speci men Type: BLOOD SPECIMEN [facility] Facility: [facility] Address: [address] [place] [address] Performed By: #### 5 8410-2 #### [facility] CLIA [id number] [address] [place] [address] [place] Platelet mean volume (Bld) [Entitic vol] 8.4 fL Low 9.0-12.7 [facility] Comment on above: Order Comment: Speci men Type: BLOOD SPECIMEN [facility] Facility[facility] Address: [address] [place] [address] Performed By: #### 5 8410-2 #### [facility] CLIA [id number] [address] [place], [place] [address] [place] [address] [place] Platelets (Bld) [#/Vol] 578 10*3/uL High 150-400 [facility] Comment on above: Order Comment: Speci men Type: BLOOD SPECIMEN [facility] Facility: [facility] Address: [address] [place] [address] Performed By: #### 5 8410-2 #### [facility] CLIA [id number] [address] [place] [address] [place] RBC (Bld) [#/Vol] 4.22 10*6/uL Normal 4.20-6.00 [facility] Comment on above: Order Comment: Speci men Type: BLOOD SPECIMEN [facility] Facility: [facility] Address: [address] [place] [address] Performed By: #### 5 8410-2 #### [facility] CLIA [id number] [address] [place] [address] [place] WBC (Bld) [#/Vol] 12.19 10*3/uL High 3.70-11.00 [facility] Comment on above: Order Comment: Speci men Type: BLOOD SPECIMEN [facility] Facility[facility] Address: [address] [place] [address] Performed By: #### 5 8410-2 #### [facility] CLIA [id number] [address] [place] [address] [place] CT LUMBAR SPINE W IVCONon CT LUMBAR SPINE W IVCON * * *Final Report* * * DATE OF EXAM: Sep 24 2023 9:25AM [facility] 0012 - CT LUMBAR SPINE W [...] are 5 lumbar-type vertebrae. Anatomic variant: None. Patrol Inspector (topogram) images: No additional findings. Alignment: Very [...] and assume there are 5 lumbar-type vertebrae. Glycerine Plant Operator: [facility] SERVICESMayra Transcribe Date/Time: Sep 24 2023 9:32A Dictated by : CISCO SCHWAB MD This examination was interpreted and the report reviewed and electronically signed by: CISCO SCHWAB MD on Sep 24 2023 9:45AM EST [id number] Normal [facility] ED NOTEon 09-24-2023 ED NOTE HNO ID: [id number] Author: RANJIT CALABRESE RN Service: Emergency Medicine Author Type: Registered Nurse Type: ED Notes Filed: 09/24/2023 10:42 Note Text: Results are back, pt resting in bed, at bedside, pt feeling better. Normal [facility] ED NOTE HNO ID: [id number] Author: RANJIT CALABRESE RN Service: Emergency Medicine Author Type: Registered Nurse Type: ED Notes Filed: 09/24/2023 08:51 Note Text: Post void bladder scan 288 mls, doctor Jose made aware. Normal [facility] ED NOTE HNO ID: [id number] Author: RANJIT CALABRESE RN Service: Emergency Medicine Author Type: Registered Nurse Type: ED Notes Filed: 09/24/2023 07:34 Note Text: Ice pack to lower back for pt comfort Normal [facility] ED NOTE HNO ID: [id number] Author: RANJIT CALABRESE RN Service: Emergency Medicine Author Type: Registered Nurse Type: ED Notes Filed: 09/24/2023 07:15 Note Text: Back fusion 09-09-2023, past 4 days have been having pain going down left leg Normal [facility] ED PROV NOTEon 09-24-2023 ED PROV NOTE HNO ID: [id number] Author: REECE COOPER MD Service: Emergency Medicine Author Type: Physician Type: ED Provider Notes Filed: 09/24/2023 11:06 Note Text: ED Provider Note Patient Name: Roberto Osborn SR : 1960 SERVICE DATE: 09/24/23 History Patient presents with: Back Pain Patient with history of chronic back pain, status post back surgery x 3, most recently at L3, 4, 5, S1 fusion at [facility] on 09/09/2023, presents to the emergency [...] (more content not included)... Normal [facility] No Panel Informationon 07-20 IMPRESSION: No acute abnormality Glycerine Plant Operator: ENOCH Transcribe Date/Time: Jul 20 2023 1:19P Dictated by : JIHAN MIX MD This examination was interpreted and the report reviewed and electronically signed by: JIHAN MIX MD on Jul 20 2023 1:20PM [facility] No Panel InformationOrdered By: Ccf Provider on 07-20-2023 [facility] XR Hip - left AP and [...] in left hip .LEFT HIP PAIN (accession [id number]), RIGHT KNEE PAIN (accession [id number]) TECHNIQUE: XR AP PELVIS, CROSSTABLE LATERAL LEFT [...] Small joint effusion. 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 [facility] Provider, Cchugo [facility] - 07/20/2023 * * *Final Report* * * DATE OF EXAM: Jul 18 2023 8:26AM ALFREDO 5279 - XR HIP 2V AP/ LAT LT / PROCEDURE REASON: M25.552-Pain in left hip * * * * Physician Interpretation * * * * PROCEDURE: Left hip and right knee INDICATION: Pain in left hip .LEFT HIP PAIN (accession [id number]), RIGHT KNEE PAIN (accession [id number]) TECHNIQUE: XR AP PELVIS, CROSSTABLE LATERAL LEFT [...] is evident. IMPRESSION IMPRESSION: No acute abnormality Glycerine Plant Operator: ENOCH Transcribe Date/Time: Jul 20 2023 1:19P Dictated by : JIHAN MIX MD This examination was interpreted and the report reviewed and electronically signed by: JIHAN MIX MD on Jul 20 2023 1:20PM [facility] XR Knee AP and Lateral and jean pierre 07-20-2023 * * *Final Report* * * DATE OF EXAM: Jul 18 2023 8:26AM ALFREDO 5209 - XR KNEE 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 RT / PROCEDURE REASON: M25.561-Right knee pain, unspecified chronicity * * * * Physician Interpretation * * * * PROCEDURE: Left hip and right knee INDICATION: Pain in left hip .LEFT HIP PAIN (accession [id number]), RIGHT KNEE PAIN (accession [id number]) TECHNIQUE: XR AP PELVIS, CROSSTABLE LATERAL LEFT [...] Small joint effusion. 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 [facility] * * *Final Report* * * DATE OF EXAM: Jul 18 2023 8:26AM ALFREDO 5209 - XR KNEE 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 RT / PROCEDURE REASON: M25.561-Right knee pain, unspecified chronicity * * * * Physician Interpretation * * * * PROCEDURE: Left hip and right knee INDICATION: Pain in left hip .LEFT HIP PAIN (accession [id number]), RIGHT KNEE PAIN (accession [id number]) TECHNIQUE: XR AP PELVIS, CROSSTABLE LATERAL LEFT [...] is evident. IMPRESSION IMPRESSION: No acute abnormality Glycerine Plant Operator: PSCB Transcribe Date/Time: Jul 20 2023 1:19P Dictated by : JIHAN MIX MD This examination was interpreted and the report reviewed and electronically signed by: JIHAN MIX MD on Jul 20 2023 1:20PM [facility] CNOVon 07-18-2023 CNOV Office Visit (ORNA ) ROBERTO OSBORN SR ([id number]) 1960 M Date Time Provider Department 07/18/23 [...] in left hip .LEFT HIP PAIN (accession [id number]), RIGHT KNEE PAIN (accession [id number]) TECHNIQUE: XR AP PELVIS, CROSSTABLE LATERAL LEFT [...] is evident. Impression: IMPRESSION: No acute abnormality Glycerine Plant Operator: [facility] [place] Transcribe Date/Time: Jul 20 2023 1:19P Dictated [...] in left hip .LEFT HIP PAIN (accession [id number]), RIGHT KNEE PAIN (accession [id number]) TECHNIQUE: XR AP PELVIS, CROSSTABLE LATERAL LEFT [...] is evident. Impression: IMPRESSION: No acute abnormality Glycerine Plant Operator: PSCB Transcribe Date/Time: Jul 20 2023 1:19P [...] (more content not included)... Normal [facility] No Panel Informationon 07-18 Radiology Study observation (narrative) [facility] XR HIP 2V AP/ LAT LTon [...] in left hip .LEFT HIP PAIN (accession [id number]), RIGHT KNEE PAIN (accession [id number]) TECHNIQUE: XR AP PELVIS, CROSSTABLE LATERAL LEFT [...] TKA is evident. IMPRESSION: No acute abnormality Glycerine Plant Operator: PSCB Transcribe Date/Time: Jul 20 2023 1:19P Dictated by : JIHAN MIX MD This examination was interpreted and the report reviewed and electronically signed by: JIHAN MIX MD on Jul 20 2023 1:20PM EST [id number] [facility] XR KNEE 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 R [...] in left hip .LEFT HIP PAIN (accession [id number]), RIGHT KNEE PAIN (accession [id number]) TECHNIQUE: XR AP PELVIS, CROSSTABLE LATERAL LEFT [...] TKA is evident. IMPRESSION: No acute abnormality Glycerine Plant Operator: PSCMayra Transcribe Date/Time: Jul 20 2023 1:19P Dictated by : JIHAN MIX MD This examination was interpreted and the report reviewed and electronically signed by: JIHAN MIX MD on Jul 20 2023 1:20PM EST [id number] [facility] ROBERTO OSBORN SR ([id number]) 1960 M Date Time Provider Department 06/16/23 [...] Encounter Status:Closed by EDA CASTELLANOS on 06/24/23 [facility] CNOVon 05-30-2023 CNOV Office Visit (ORMDNA ) ROBERTO OSBORN SR ([id number]) 1960 M Date Time Provider Department 05/30/23 [...] Chika Carpenter M.D. Department of Orthopaedic Surgery [facility] Allergies As of Date: 05/30/2023 Noted Allergy Reaction CODEINE 07/18/2021 2 - Rash MORPHINE 10/26/2020 4 - Hives Date Reviewed: 05/30/2023 Reviewed by: Chika Carpenter MD - Fully Assessed Reason for Visit: Follow Up [171] Cmt: Bone scan results Primary Visit Diagnosis:Pain due to internal orthopedic prosthetic devices, implants and grafts, initial encounter ([facility]) [T84.84XA] Order(s):meloxicam (MOBIC) 7.5 mg tabletTake [...] of breath). (more content not included)... Normal [facility] BONE 3 PHASEon 05-23-2023 AL BONE 3 PHASE * * *Final Report* * * DATE OF EXAM: May 23 2023 1:10PM CARLEE 0009 - AL BONE 3 PHASE / PROCEDURE REASON: multiple diagnoses * * * * Physician Interpretation * * * * EXAM: THREE-PHASE BONE SCAN HISTORY: Pain due to internal orthopedic prosthetic devices, implants and grafts, initial encounter ([facility]) S/P total knee replacement using cement, [...] Presumed postop changes in the right knee. Glycerine Plant Operator: ENOCH Transcribe Date/Time: May 23 2023 1:29P Dictated by : CALI OBRIEN, This examination was interpreted and the report reviewed and electronically signed by: ALESHA DEE MD on May 23 2023 2:14PM EST [id number] [facility] No Panel Informationon 05-23 [facility] Anne 05-20-2023 KATIE Telephone (SANTI[place]O) ROBERTO OSBORN SR ([id number]) 1960 M Date Time Provider Department 05/20/23 CHIKA CARPENTER During your visit today, we recorded the following information about you: Eda Castellanos 05/20/2023 10:13 AM Signed Please leave a voice mail at [phone] for spouse Lien for two appts for [...] EDA CASTELLANOS on 05/21/23 Normal [facility] XR Knee AP and Lateral and M erchantson 05-19-2023 IMPRESSION: Al NASCIMENTO Glycerine Plant Operator: ENOCH Transcribe Date/Time: May 19 2023 8:53A Dictated by : JIHAN MIX MD This examination was interpreted and the report reviewed and electronically signed by: JIHAN MIX MD on May 19 2023 8:54AM EST [facility] * * *Final Report* * * [...] No periprosthetic fracture or significant joint effusion. [facility] Provider, Sunny Jiang - 05/19/2023 * [...] significant joint effusion. IMPRESSION IMPRESSION: Stable TKA Glycerine Plant Operator: PSCB Transcribe Date/Time: May 19 2023 8:53A Dictated by : JIHAN MIX MD This examination was interpreted and the report reviewed and electronically signed by: JIHAN MIX MD on May 19 2023 8:54AM EST [facility] XR Knee AP and Lateral and M erchantsOrdered By: Ccf Provider on 05-19-2023 [facility] CNOVon 05-16-2023 CNOV Office Visit (ORMDNA ) ROBERTO OSBORN ([id number]) 1960 M Date Time Provider Department 05/16/23 [...] (more content not included)... Normal [facility] XR KNEE 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 L Ton 05-16-2023 [...] or significant joint effusion. IMPRESSION: Stable TKA Glycerine Plant Operator: ENOCH Transcribe Date/Time: May 19 2023 8:53A Dictated by : JIHAN MIX MD This examination was interpreted and the report reviewed and electronically signed by: JIHAN MIX MD on May 19 2023 8:54AM EST [id number] [facility] XR Knee AP and Lateral and M erchantson 05-16-2023 Radiology Study observation (narrative) [facility] Anne 05-12-2023 CNPN Telephone (ORMDNA) ROBERTO OSBORN SR ([id number]) 1960 M Date Time Provider Department 05/12/23 CHIKA CARPENTER During your visit today, we recorded the following information about you: Eda Castellanos 05/12/2023 9:33 AM Signed Patient needs appt for left knee pain (old tka). He needs this Friday or next Friday if possible. Ok to offer Aliza if available. Please contact Lien (spouse) to schedule at her work [phone]. AramisClemente 05/12/2023 9:49 AM Signed Patient is [...] CLEMENTE SELF on 05/12/23 Normal [facility] CREATINE KINASEon 04-24-2023 CK [Catalytic activity/Vol] 93 [...] Office Visit (SANTIAGO ) ROBERTO OSBORN SR ([id number]) 1960 M Date Time Provider Department 12/06/22 [...] for Encounter Date Provider Department Center 12/06/2022 [id number] CARPENTER [facility] Letter Text Encounter Status:Closed by CHIKA CARPENTER on 12/16/22 [facility] 11-19-2022 CNPN Telephone (ORQ) ROBERTO OSBORN ([id number]) 1960 Date Time Provider Department 11/19/22 CHIKA [...] that same letter to be faxed to [phone]. Thank you! Eda Dyllan [facility] 11/21/2022 9:55 AM Signed This was done on 11/20/22. Allergies As of Date: 11/19/2022 Noted Allergy Reaction CODEINE 07/18/2021 2 - Rash MORPHINE 10/26/2020 4 - Hives Date Reviewed: 10/27/2022 Reviewed by: Chika Carpenter MD - Fully Assessed Reason for Visit: Patient Question [5493] Prescriptions as of 11/21/2022 - acetaminophen (TYLENOL) [...] knee [M25.561, G89.29] 10/02/2022 En[facility] CNCOon 11-15-2022 CNCO Letter Text [facility] CNPNon 11-08-2022 CNPN Telephone (SANTIAGO) ROBERTO OSBORN SR ([id number]) 1960 M Date Time Provider Department 11/08/22 CHIKA CARPENTER During your visit today, we recorded the following information about you: Eda Mijares [facility] 11/08/2022 1:18 PM Signed Patient asking if he could have a return to work letter for light duty to begin on 11/18/22. If you agree, it would need to be faxed to [phone] ('s work), no cover sheet needed. Regla [...] Encounter Status:Closed by REGLA HIGGINS on 11/08/22 [facility] CNTHERAPYon 11-06-2022 CNTHERAPY OT/PT/Speech Visit (PTMDRG) ROBERTO OSBORN ([id number]) 1960 M Date Time Provider Department 11/06/22 8:00 AM TRE GOG Date Time Provider Department Center 11/06/2022 8:00 AM [id number], SCOTT PTMDRG [facility] Reason for Visit: Physical Therapy [...] as of 09/12/2022: no interactions 2. Normal [facility] CNTHERAPYon 10-30-2022 CNTHERAPY OT/PT/Speech Visit (PTMDRG) ROBERTO OSBORN ([id number]) 1960 M Date Time Provider Department 10/30/22 8:00 AM TRE GO PTMDRG Date Time Provider Department Center 10/30/2022 8:00 AM [id number], SCOTT PTMDRG [facility] Reason for Visit: PT Progress Note [1596] [...] Comments as of 09/12/2022: no interactions 09-12-22. [facility] CNTHERAPYon 10-28-2022 CNTHERAPY OT/PT/Speech Visit (PTMDRG) ROBERTO OSBORN SR ([id number]) 1960 M Date Time Provider Department 10/28/22 7:00 AM TOY COREAS PTMDRG Date Time Provider Department Center 10/28/2022 7:00 AM [id number], SUSAN PTMDRG [facility] Reason for Visit: Physical Therapy [503] Primary [...] of 09/12/2022: no interactions 09-12-22. [facility] 10-25-2022 [facility] Office Visit (ORGARETH ) ROBERTO OSBORN SR ([id number]) 1960 M Date Time Provider Department 10/25/22 [...] Encounter Status:Closed by CHIKA CARPENTER on 10/27/22 [facility] CNTHERAPYon 10-24-2022 CNTHERAPY OT/PT/Speech Visit (PTMDRG) ROBERTO OSBORN ([id number]) 1960 M Date Time Provider Department 10/24/22 7:00 AM TRE GO PTMG Date Time Provider Department [place] 10/24/2022 7:00 AM [id number], SCOTT PTMDRG [facility] Reason for Visit: Physical Therapy [503] Primary [...] Comments as of 09/12/2022: no interactions 09-12-22. [facility] CNTHERAPYon 10-21-2022 CNTHERAPY OT/PT/Speech Visit (PTMDRG) ROBERTO OSBORN SR ([id number]) 1960 M Date Time Provider Department 10/21/22 7:45 AM TOY COREAS Date Time Provider Department Center 10/21/2022 7:45 AM [id number] COREAS [facility] Reason for Visit: Physical Therapy [503] Primary [...] Comments as of 09/12/2022: no interactions 2-2-23. [facility] CNTHERAPYon 10-16-2022 CNTHERAPY OT/PT/Speech Visit (PTMDRG) ROBERTO OSBORN ([id number]) 1960 M Date Time Provider Department 10/16/22 8:00 AM TRE GO PTMDRG Date Time Provider Department Center 10/16/2022 8:00 AM [id number], SCOTT PTMDRG [facility] Reason for [...] Comments as of 09/12/2022: no interactions 09-12-22. [facility] [facility] CNPN Telephone (SANTIAGO) LAWROBERTO Zonia SR ([id number]) 1960 M Date Time Provider Department 10/15/22 [...] Encounter Status:Closed by SG JUDD on 10/17/22 [facility] CNTHERAPYon 10-14-2022 CNTHERAPY OT/PT/Speech Visit (PTMDRG) ROBERTO OSBORN SR ([id number]) 1960 M Date Time Provider Department 10/14/22 7:00 AM TOY COREAS PTMDRG Date Time Provider Department Center 10/14/2022 7:00 AM [id number], SUSAN [facility] Reason for Visit: Physical Therapy [503] Primary [...] as of 09/12/2022: no interactions 2-2-23. Normal [facility] CNTHERAPYon 10-10-2022 CNTHERAPY OT/PT/Speech Visit (PTMDRG) ROBERTO OSBORN ([id number]) 1960 M Date Time Provider Department 10/10/22 11:15 AM AVA KEITA PTMDRG Date Time Provider Department Center 10/10/2022 11:15 AM [id number] KEITA PTMDRG [facility] Reason for Visit: Physical Therapy [...] Comments as of 09/12/2022: no interactions -10-03. [facility] CNTHERAPYon 10-02-2022 CNTHERAPY OT/PT/Speech Visit (PTMDRG) ROBERTO OSBORN SR ([id number]) 1960 M Date Time Provider Department 10/02/22 8:45 AM TRE GO PTMDRG Date Time Provider Department Center 10/02/2022 8:45 AM [id number], SCOTT PTMDRG [facility] Reason for Visit: PT Eval [747] Visit [...] as of 09/12/2022: no interactions 2. Normal [facility] XR Knee AP and Lateral and M jean pierre 09-26-2022 IMPRESSION: Al NASCIMENTO Glycerine Plant Operator: ENOCH Transcribe Date/Time: Sep 26 2022 1:59P Dictated by : JIHAN MIX MD This examination was interpreted and the report reviewed and electronically signed by: JIHAN MIX MD on Sep 26 2022 2:00PM EST [facility] * * *Final Report* * * [...] soft tissue emphysema. 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 [facility] Provider, Sunny Jiang - 09/26/2022 * [...] TKA is evident. IMPRESSION IMPRESSION: Stable TKA Glycerine Plant Operator: PSCB Transcribe Date/Time: Sep 26 2022 1:59P Dictated by : JIHAN MIX MD This examination was interpreted and the report reviewed and electronically signed by: JIHAN MIX MD on Sep 26 2022 2:00PM EST [facility] XR Knee AP and Lateral and M erchantsOrdered By: Ccf Provider on 09-26-2022 [facility] CNOVon 09-25-2022 CNOV Office Visit (SANTIAGO ) ROBERTO ([id number]) 1960 M Date Time Provider Department 09/25/22 [...] arthroplasty, right [Z96.651] Order(s):CONSULT TO PHYSICAL THERAPY [9049] Order #: [id number]: 1 FUTURE Prescriptions as of 09/25/2022 - [...] Encounter Status:Closed by MATTHIEU ESPARZA on 09/25/22 [facility] XR KNEE 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 R [...] Left TKA is evident. IMPRESSION: Stable TKA Glycerine Plant Operator: PSCB Transcribe Date/Time: Sep 26 2022 1:59P Dictated by : JIHAN MIX MD This examination was interpreted and the report reviewed and electronically signed by: JIHAN MIX MD on Sep 26 2022 2:00PM EST [id number] [facility] XR Knee AP and Lateral and M erchantson 09-25-2022 Radiology Study observation (narrative) [facility] Anne 09-14-2022 CNPN Telephone (HCSIND) ROBERTO OSBORN SR ([id number]) 1960 M Date Time Provider Department 09/14/22 [...] Encounter Status:Closed by TRUPTI BAR on 09/14/22 [facility] 09-12-2022 CNPN Telephone (ME2E) ROBERTO OSBORN SR ([id number]) 1960 M Date Time Provider Department 09/12/22 CHIKA CARPENTER RI2E During your visit today, we recorded the following information about you: FILIBERTO Villalobos 09/12/2022 10:31 AM Addendum Kirill PT at [facility]. Pic of drainage uploaded in [employer]. Per Manjeet GARCIA, remove silverlon and use [...] Encounter Status:Closed by RONY DOYLE on 09/12/22 [facility] Basic metabolic 2000 panelon 09-11-2022 Anion gap [Moles/Vol] 9 mmol/L Normal 9-18 [facility] Comment on above: Order Comment: Speci men Type: BLOOD SPECIMENOrdering Facility: [facility] Address: [address] [place] [address] Performed By: #### 2 4321-2 ####[facility] LABORATORYCLIA [id number] [place] [address] [place] Calcium [Mass/Vol] 8.8 mg/dL Normal 8.5-10.2 [facility] Comment on above: Order Comment: Speci men Type: BLOOD SPECIMENOrdering Facility: [facility] Address: [address] [place] [address] Performed By: #### 2 4321-2 ####[facility] LABORATORYCLIA [id number] [place] [address] [place] Chloride [Moles/Vol] 103 mmol/L Normal 97-105 [facility] Comment on above: Order Comment: Speci men Type: BLOOD SPECIMENOrdering Facility: [facility] Address: [address] [place] [address] Performed By: #### 2 4321-2 ####[facility] LABORATORYCLIA [id number] [place] [address] [place] CO2 [Moles/Vol] 27 mmol/L Normal 22-30 [facility] Comment on above: Order Comment: Speci men Type: BLOOD SPECIMENOrdering Facility: [facility] Address: [address] [place] [address] Performed By: #### 2 4321-2 ####[facility] LABORATORYCLIA [id number] [place] [address] [place] Creatinine [Mass/Vol] 0.54 mg/dL Low 0.73-1.22 [facility] Comment on above: Order Comment: Speci men Type: BLOOD SPECIMENOrdering Facility: [facility] Address: [address] [place] [address] Performed By: #### 2 4321-2 ####[facility] LABORATORYCLIA [id number] [place] [address] [place] ESTIMATED GLOMERULAR FILTRATION RATE 112 mL/min/1.73m??? Normal >=60 [facility] Comment on above: Order Comment: Vera grant Type: BLOOD SPECIMENOrdering Facility: [facility] Address: [address] [id number] Result Comment: Snehal mated Glomerular Filtration Rate [...] Performed By: #### 2 4321-2 ####[facility] LABORATORYCLIA [id number] [place] [address] [place] Glucose [Mass/Vol] 116 mg/dL High 74-99 [facility] Comment on above: Order Comment: Vera grant Type: BLOOD SPECIMENOrdering Facility: [facility] Address: [address] [address] Result Comment: The [place] Diabetes Association (ADA) provides guidance for cutoff [...] Standards of Medical Care in Diabetes 2016, [place] Diabetes Association. Diabetes Care. 2016.39(Suppl 1). Performed By: #### 2 4321-2 ####[facility]ORYCLIA [id number] [place] [id number] [place] Potassium [Moles/Vol] 3.7 mmol/L Normal 3.7-5.1 [facility] Comment on above: Order Comment: Vera grant Type: BLOOD SPECIMENOrdering Facility: [facility] Address: [address] Performed By: #### 2 4321-2 ####BOONE LABORATORYCLIA [id number] [address] STATES [facility] Sodium [Moles/Vol] 139 mmol/L Normal 136-144 [facility] Comment on above: Order Comment: Speci men Type: BLOOD SPECIMENOrdering Facility: [facility] Address: [address] [place] [address] Performed By: #### 2 4321-2 ####[facility] LABORATORYCLIA [id number] [address] Urea nitrogen [Mass/Vol] 6 mg/dL Low 9-24 [facility] Comment on above: Order Comment: Speci men Type: BLOOD SPECIMENOrdering Facility: [facility] Address: [address] [place] [address] Performed By: #### 2 4321-2 ####[facility] LABORATORYCLIA [id number] [address] OF [facility] CASE MANAGEMon 09-11-2022 CASE MANAGEM HNO ID: [id number] Author: Taylor Boyce RN Service: ? Author Type: Registered Nurse Type: Care Mgt Progress Note Filed: 09/11/2022 2:24 PM Note Text: CARE MANAGEMENT DISCHARGE NOTE SERVICE DATE: 09/11/2022 SERVICE TIME: 2:23 PM LOS: 0 days Admission Date: 09/10/2022 DISCHARGE ARRANGEMENT (list agency and phone number) Discharge Arrangement: Home with Home Health Provider Name: [facility] CAREGIVER ASSESSMENT: Caregiver is ready, willing and able to meet the patient's needs as recommended by the inter-professional team:: Yes Patient's transition needs and plan for meeting these needs: Home PT HANDOFF COMMUNICATION: Handoff to: Primary Care Physician Primary Care Physician Name/Phone: Dr. Timothy Correa- [phone] TRANSPORTATION ARRANGEMENTS: Transportation Arrangements: Car- to transport Discharge Information Row Name Admission (Current) from 09/10/[address] [facility] Health Care Agency [facility] Start of Care -- Within 24- 48 hours Needs Prior to Discharge: Ready for Discharge Discharge order written for today. [facility] will be seeing the patient for Home PT with a start of care within 24- 48 hours. Notified [facility] of the patients discharge home today. SIGNATURE: Taylor Boyce RN PATIENT NAME: Roberto Osborn SR DATE: September 11, 2022 TIME: 2:23 PM PAGER/CONTACT #: [phone] [facility] CASE MANAGEM HNO ID: [id number] Author: Taylor Boyce RN Service: ? Author Type: Registered Nurse Type: Care Mgt Progress Note Filed: 09/11/2022 11:11 AM Note Text: CARE MANAGEMENT PROGRESS NOTE SERVICE DATE: 09/11/2022 SERVICE TIME: 11:10 AM LOS: 0 days Needs Prior to Discharge: To Be Determined [facility] able to accept. CM department will continue to follow for DC needs. SIGNATURE: Taylor Boyce RN PATIENT NAME: Roberto Osborn SR DATE: September 11, 2022 TIME: 11:10 AM PAGER/CONTACT #: [phone] [facility] CASE MGT INIT ASSESon 2022 CASE MGT INIT [facility] HNO ID: [id number] Author: Taylor Boyce RN Service: ? Author Type: Registered Nurse Type: Care Mgt Initial Assessment Filed: 09/11/2022 10:22 AM Note Text: CARE MANAGEMENT: ASSESSMENT AND DISCHARGE PLAN SERVICE DATE: September 11, 2022 SERVICE TIME: 10:21 AM PRIMARY CARE PHYSICIAN: Timothy Correa MD Primary Contact: Extended Emergency Contact Information Primary Emergency Contact: Lien Osborn Address: [address] [place] [phone] Relation: Spouse ADMISSION STATUS: Extended Recovery Insurance Provider: BLUE CARD PPO OOS NEEDS PRIOR TO DISCHARGE Needs Prior to Discharge: To Be Determined POTENTIAL TRANSITION PLANS To Be Determined Based on clinical judgement, Care Management will address the following needs: Functional Patient's perception of need for this admission: Elective surgery ADVANCE DIRECTIVES Current Advance Directive: None Elevator Constructor Attempted to Assist with AD Completion: Yes [...] discharge within 30 days: No PATIENT SCREEN Patient/Mobile Crane Operator Stated Goals: To have reduction in symptoms, [...] Completely I feel financially burdened by my qjb-dc-slxyew expenses for my prescription medication:: 0 - [...] at this time. FREEDOM OF CHOICE EXPLAINED: [place] of Choice Given: Yes Level of Care [...] PT recommendations with the patient, referral to [facility]. CM department will continue to follow for DC needs. SIGNATURE: Taylor (more content not included)... Normal [facility] CBC panel Auto (Bld)on 09-11 Erythrocyte distribution width (RBC) [Ratio] 13.9 % Normal 11.5-15.0 [facility] Comment on above: Order Comment: Vera grant Type: BLOOD SPECIMENOrdering Facility: [facility] Address: [address] [place] [address] Performed By: #### 5 8410-2 ####[facility]ORATORYCLIA [id number] [place] [address] [place] Hematocrit (Bld) [Volume fraction] 35.7 % Low 39.0-51.0 [facility] Comment on above: Order Comment: Vera grant Type: BLOOD SPECIMENOrdering Facility: [facility] Address: [address] [address] Performed By: #### 5 8410-2 ####[facility]ORATORYCLIA [id number] [place] [address] [place] Hemoglobin (Bld) [Mass/Vol] 12.0 g/dL Low 13.0-17.0 [facility] Comment on above: Order Comment: Speci men Type: BLOOD SPECIMENOrdering Facility: [facility] Address: [address] [place] [address] Performed By: #### 5 8410-2 ####[facility] LABORATORYCLIA [id number] [address] MCH (RBC) [Entitic mass] 29.7 pg Normal 26.0-34.0 [facility] Comment on above: Order Comment: Speci men Type: BLOOD SPECIMENOrdering Facility: [facility] Address: [address] [place] [address] Performed By: #### 5 8410-2 ####[facility] LABORATORYCLIA [id number] [address] MCHC (RBC) [Mass/Vol] 33.6 g/dL Normal 30.5-36.0 [facility] Comment on above: Order Comment: Speci men Type: BLOOD SPECIMENOrdering Facility: [facility] Address: [address] [place] [address] Performed By: #### 5 8410-2 ####[facility] LABORATORYCLIA [id number] [address] MCV (RBC) [Entitic vol] 88.4 fL Normal 80.0-100.0 [facility] Comment on above: Order Comment: Speci men Type: BLOOD SPECIMENOrdering Facility: [facility] Address: [address] [place] [address] Performed By: #### 5 8410-2 ####[facility] LABORATORYCLIA [id number] [address] Nucleated RBC (Bld) [#/Vol] 10*3/uL Normal <0.01 [facility] Comment on above: Order Comment: Speci men Type: BLOOD SPECIMENOrdering Facility: [facility] Address: [address] [place] [address] Performed By: #### 5 8410-2 ####[facility] LABORATORYCLIA [id number] [place] [address] [place] Platelet mean volume (Bld) [Entitic vol] 9.3 fL Normal 9.0-12.7 [facility] Comment on above: Order Comment: Speci men Type: BLOOD SPECIMENOrdering Facility: [facility] Address: [address] [place] [address] Performed By: #### 5 8410-2 ####[facility]ORATORYCLIA [id number] [address] [place] Platelets (Bld) [#/Vol] 287 10*3/uL Normal 150-400 [facility] Comment on above: Order Comment: Speci men Type: BLOOD SPECIMENOrdering Facility: [facility] Address: [address] [place] [address] Performed By: #### 5 8410-2 ####[facility]ORATORYCLIA [id number] [address] [place] RBC (Bld) [#/Vol] 4.04 10*6/uL Low 4.20-6.00 [facility] Comment on above: Order Comment: Speci men Type: BLOOD SPECIMENOrdering Facility: [facility] Address: [address] [place] [address] Performed By: #### 5 8410-2 ####[facility]ORATORYCLIA [id number] [address] [place] WBC (Bld) [#/Vol] 11.09 10*3/uL High 3.70-11.00 [facility] Comment on above: Order Comment: Speci men Type: BLOOD SPECIMENOrdering Facility: [facility] Address: [address] [place] [address] Performed By: #### 5 8410-2 ####[facility]ATORYCLIA [id number] [address] [place] CNCOon 09-11-2022 CNCO Letter Text Normal [facility] CNDSon 09-11-2022 CNDS HNO ID: [id number] Author: Matthieu Esparza PA-C Service: Orthopaedic Surgery Author Type: Physician Pull Up Hand Type: Discharge Summary Filed: 09/11/2022 12:42 PM [...] These instructions explain what you or your child day care provider need to do to continue your care at home or at another healthcare facility Please go over these instructions with your nurse and child day care provider. If you are not [...] or flu-like symptoms (more content not included)... [facility] 09-11-2022 [facility] Telephone (HCSIND) ROBERTO OSBORN SR ([id number]) 1960 M Date Time Provider Department 09/11/22 [facility] During your visit today, we recorded the following information about you: Sanaz Dean [facility] 09/11/2022 11:22 AM Signed Welcome [...] Yes: Location: , Date received: 08/10/22 e. [facility] will be providing your care, are you agreeable to starting these services? YES (yes or no) f. Do you have any upcoming appointments in the next few days, or restrictions to your schedule? NO g. Caregiver: Patient is able to manage care independently h. Confirmed Visited Location and preferred #: [phone] [place] [address] Please keep our your medications both over the counter and prescribed out for the home care to review, your hospital discharge instructions and write down any questions you might have. In order to maintain a safe environment for our caregivers, [facility] requires any animals or weapons present in the home be located in a secured location. Our clinicians will call you the night before or the morning of the appointment. Their # may come up restricted but they'll leave a VM for you. In case you have any questions or concerns in the meantime, our # is [phone], option 5 Thank you for your time [...] (more content not included)... Normal [facility] CONSULT PROGon 09-11-2022 CONSULT PROG HNO ID: [id number] Author: Parris Welsh MD Service: General Internal [...] 11, 2022 TIME: 8:57 AM PAGER: Normal [facility] THERAPY NTon 09-11-2022 THERAPY NT HNO ID: [id number] Author: Vamshi Castellon OT/L Service: ? 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 [facility] THERAPY NT HNO ID: [id number] Author: Lynette Persaud PT Service: Physical Therapy Author Type: Physical Therapist Type: Therapy (PT/OT/Speech/Resp) Filed: 09/11/2022 10:14 AM Note Text: Physical Therapy Treatment SERVICE DATE: 09/11/2022 SERVICE TIME: 834 to 924 ROOM: [id number] Recommended Discharge Disposition: Home PT Recommended Discharge [...] terminal stanc (more content not included)... Normal [facility] ALLIED HEALTHon 09-10-2022 ALLIED HEALTH HNO ID: [id number] Author: Chaplain Earle Service: Spiritual Care Author Type: Industrial Tech Instructor Type: Allied Health Filed: 09/10/2022 8:18 PM Note Text: SPIRITUAL CARE PROGRESS NOTE SERVICE DATE: 09/10/2022 SERVICE TIME: 6:00-6:01pm This truck engine assembler stopped by the patient's room to provide spiritual care, but the patient did not desire it at the time. To contact the Spiritual Care Department: Please call [phone]. SIGNATURE: Chaplain Earle PATIENT NAME: Roberto Osborn SR DATE: September 10, 2022 TIME: 8:17 PM PAGER/CONTACT #: [phone] [facility] ALLIED HEALTH HNO ID: [id number] Author: GERMAINE Sparrow Service: Radiology Author Type: [...] GERMAINE Sparrow September 10, 2022 10:39 AM [facility] ANES POSTPROC EVALon 023 ANES POSTPROC EVAL HNO ID: [id number] Author: Adryan Payton MD Service: Anesthesiology Author Type: Anesthesiologist Type: Anesthesia Postprocedure Evaluation Filed: 09/10/2022 12:48 PM Note Text: POST ANESTHESIA EVALUATION NOTE : 1960 Procedure Summary Date: 09/10/22 Room / Location: [place] OR / [place] OR Anesthesia Start: 740 Anesthesia Stop: 1013 [...] September 10, 2022 TIME: 12:48 PM CSN: [id number] [facility] ANES PRE-OPon 09-10-2022 ANES PRE-OP HNO ID: [id number] Author: Adryan Payton MD Service: Anesthesiology Author Type: Anesthesiologist Type: Anesthesia Preprocedure Evaluation Filed: 09/10/2022 7:06 AM Note Text: ANESTHESIOLOGY DAY OF SURGERY NOTE : 1960 Procedure Information Date/Time: 09/10/22 0745 Procedure: ROBOTIC ASSISTED TOTAL KNEE ARTHROPLASTY (Right: Knee) Location: [place] OR / [place] OR Surgeons: Chika Carpenter MD Estimated body [...] September 10, 2022 TIME: 7:04 AM CSN: [id number] [facility] BRIEF OP NOTon 09-10-2022 BRIEF OP NOT HNO ID: [id number] Author: Chika Carpenter MD Service: Orthopaedic Surgery Author Type: Physician Type: Brief Op Note Filed: 09/11/2022 7:52 AM Note Text: TOTAL KNEE ARTHROPLASTY BRIEF OPERATIVE / PROCEDURE NOTE LOG ID: [id number] Surgery/Procedure Date: 09/10/2022 Incision/Procedure Start Time: 8:19 AM Incision Close/Procedure End Time: 10:05 AM Surgeon(s)/Proceduralis t(s) and Pull Up Hand(s): Surgeon(s) and Role: * Chika Carpenter MD - Primary Nurse Practitioner: Indio De Oliveira APRN.FOLDER MACHINE Physician Pull Up Hand: Anahi Seay PA-C; Regla Higgins PA-C Procedure(s): [...] Implant Name Type Inv. Item Serial No. Mill Labor Supervisor Lot No. LRB No. Used Action COMPONENT TRITANIUM 35MM METAL 10MM PATELLAR ASYMMETRIC KNEE - [id number] Joint - Knee COMPONENT TRITANIUM 35MM METAL 10MM PATELLAR ASYMMETRIC KNEE [facility] [id number] Right 1 Implanted INSERT TRIATHLON 6 9MM TIBIAL BEARING CONDYLAR STABILIZE STERILE KNEE - [id number] Joint - Knee INSERT TRIATHLON 6 9MM TIBIAL BEARING CONDYLAR STABILIZE STERILE KNEE [facility] [id number] Right 1 Implanted BASEPLATE TRIATHLON 6 TRITANIUM [id number] TIBIAL 4 CRUCIFORM PEG KEEL KNEE - [id number] Joint - Knee BASEPLATE TRIATHLON 6 TRITANIUM [id number] TIBIAL 4 CRUCIFORM PEG KEEL KNEE [facility] [id number] Right 1 Implanted COMPONENT TRIATHLON 5 PA FEMORAL CRUCIATE RETAIN BEAD KNEE RIGHT - [id number] Joint - Knee COMPONENT TRIATHLON 5 PA FEMORAL CRUCIATE RETAIN BEAD KNEE RIGHT [facility] [id number] Right 1 Implanted Bearing Surface: Fixed Fixation: Cementless SSI Risk Factors: DM Constraint: Cruciate Retaining Other: None Pre-Op/Pre-Procedure Diagnosis: Primary osteoarthritis of right knee [M17.11] Post-Op/Post-Procedure Diagnosis: Primary osteoarthritis of right knee [M17.11] Weight Bearing Status: Weight Bearing As Tolerated SIGNATURE: Chika Carpenter MD PATIENT NAME: Roberto Osborn DATE: September 10, 2022 TIME: 10:01 AM [facility] CONSULTon 09-10-2022 CONSULT HNO ID: [id number] Author: Parris Welsh MD Service: General Internal [...] leg swel (more content not included)... Normal [facility] CT KNEE WO IVCON RTon 2022 CT KNEE WO IVCON RT * * *Final Report* * * DATE OF EXAM: Sep 10 2022 6:57AM [facility] 0084 - CT KNEE WO IVCON RT / PROCEDURE REASON: M17.11-Primary osteoarthritis of right knee * * * * Physician Interpretation * * * * EXAMINATION: CT KNEE WO IVCON RT CLINICAL HISTORY: 62 years old Male with Primary osteoarthritis of right knee. WILMER Robotic total knee replacement [facility] CT TECHNIQUE: CT RIGHT knee without contrast [facility] protocol, knee 1 mm axial slices, [...] images for the purposes of presurgical planning. Glycerine Plant Operator: ENOCH Transcribe Date/Time: Sep 11 2022 6:28P Dictated by : GERI FABIAN DO This examination was interpreted and the report reviewed and electronically signed by: GERI FABIAN DO on Sep 11 2022 6:35PM EST [id number] Normal [facility] Hematocrit Auto (Bld) [Volum e fraction]on 09-10-2022 Hematocrit (Bld) [Volume fraction] 36.0 % Low 39.0-51.0 [facility] Comment on above: Order Comment: Specelena grant Type: BLOOD SPECIMENOrdering Facility: [facility] Address: [address] [place], [place] [address] Performed By: #### 4 544-3, 718-7 ####[facility] LABORATORYCLIA [id number] [place] [id number] [facility] Hgb Bld-mCncon 09-10-2022 Hemoglobin (Bld) [Mass/Vol] 12.1 g/dL Low 13.0-17.0 [facility] Comment on above: Order Comment: Specelena grant Type: BLOOD SPECIMENOrdering Facility: [facility] Address: [address] [place] [address] Performed By: #### 4 544-3, 718-7 ####[facility] LABORATORYCLIA [id number] [place] [id number] [place] NURSING PROGon 09-10-2022 NURSING PROG HNO ID: [id number] Author: Lorie Bolden RN Service: Nursing Author [...] completion of procedure. Report to Leonel Cary [facility] OPERATIVE NOon 09-10-2022 OPERATIVE NO HNO ID: [id number] Author: Chika Carpenter MD Service: Orthopaedic Surgery Author Type: Physician Type: Operative Report Filed: 09/11/2022 7:52 AM Note Text: [facility] OPERATIVE REPORT PATIENT NAME: Roberto Osborn SR CSN: [id number] LOG ID: [id number] Surgery Date: 09/10/2022 Surgeon(s) and Pull Up Hand(s): Surgeon(s) and Role: * Chika Carpenter MD - Primary- surgeon * Regla GARCIA -Roving Hauler No qualified orthopedic resident available. The PA [...] the device, and deep closure. The PA /ESCAPE WHEEL TOOTH CUTTER performed the closure of the subcutaneous tissue [...] Implant Name Type Inv. Item Serial No. Mill Labor Supervisor Lot No. LRB No. Used Action COMPONENT TRITANIUM 35MM METAL 10MM PATELLAR ASYMMETRIC KNEE - [id number] Joint - Knee COMPONENT TRITANIUM 35MM METAL 10MM PATELLAR ASYMMETRIC KNEE [facility] [id number] Right 1 Implanted INSERT TRIATHLON 6 9MM TIBIAL BEARING CONDYLAR STABILIZE STERILE KNEE - [id number] Joint - Knee INSERT TRIATHLON 6 9MM TIBIAL BEARING CONDYLAR STABILIZE STERILE KNEE [facility] [id number] Right 1 Implanted BASEPLATE TRIATHLON 6 TRITANIUM 59G70IP TIBIAL 4 CRUCIFORM PEG KEEL KNEE - [id number] Joint - Knee BASEPLATE TRIATHLON 6 TRITANIUM [id number] TIBIAL 4 CRUCIFORM PEG KEEL KNEE [facility] [id number] Right 1 Implanted COMPONENT TRIATHLON 5 PA FEMORAL CRUCIATE RETAIN BEAD KNEE RIGHT - [id number] Joint - Knee COMPONENT TRIATHLON 5 PA FEMORAL CRUCIATE RETAIN BEAD KNEE RIGHT [facility] [id number] Right 1 Implanted OPERATIVE [...] room; the p (more content not included)... [facility] SURGICAL PATHOLOGYon 023 CASE REPORT [facility] Comment on above: Order Comment: Speci men Type: TISSUE SPECIMENOrdering Facility: [facility] Address: [address] [place], [place] [address] Result Comment: Surg [facility] Pathology Report Case: [id number] Authorizing Provider: Chika Carpenter MD Collected: 09/10/2022 08:32 AM Ordering Location: [facility] Surgery Received: 09/10/2022 11:44 AM Pathologist: Timothy Dietz MD Specimen: KNEE ARTHROPLASTY RIGHT Performed By: #### S ####[facility] LABCLIA [id number] [address] CLINICAL HISTORY [facility] Comment on above: Order Comment: Emilyi men Type: TISSUE SPECIMENOrdering Facility: [facility] Address: [address] [place], [place] [address] Result Comment: Pre- op diagnosis: Primary osteoarthritis of right knee [M17.11] Performed By: #### S ####[facility] LABCLIA [id number] [address] FINAL DIAGNOSIS [facility] Comment on above: Order Comment: Speci men Type: TISSUE SPECIMENOrdering Facility: [facility] Address: [address] [place], [place] [address] Result Comment: Righ t knee, arthroplasty: - Degenerative joint disease. Performed By: #### S ####[facility] LABCLIA [id number] [address] [place] FINAL PERFORMING LAB [facility] Comment on above: Order Comment: Speci men Type: TISSUE SPECIMENOrdering Facility: [facility] Address: [address] [place] [address] Result Comment: Diag nostic interpretation performed at [place] [address] CLIA# [id number] Tool Maker: Oscar Goodson M.D. Performed By: #### S ####[facility] LABIA [id number] [address] OF [facility] GROSS DESCRIPTION Normal [facility] Comment on above: Order Comment: Speci men Type: TISSUE SPECIMENOrdering Facility: [facility] Address: [address] [place] [address] Result Comment: A. K NEE ARTHROPLASTY RIGHT Received in formalin, labeled as right knee arthroplasty are multiple segments of bone that aggregate to approximately 13.0 x 10.4 x 2.6 cm. One portion is recognizable as the tibial plateau and demonstrates minimal eburnation and moderate cartilage roughening. Separate fragments consistent with femoral condyles also show evidence of cartilage eburnation and roughening. Mobile Crane Operator sections are submitted as follows: A1 2 sections of condyles following decalcification A2 2 sections of tibial plateau following decalcification CG/MLG September 10, 2022 3:13 PM Gross examination performed at [facility], [address] [place] [address] Performed By: #### S ####[facility] LABIA [id number] [address] [place] THERAPY NTon 09-10-2022 THERAPY NT HNO ID: [id number] Author: Lynette Persaud, LORY Service: Physical Therapy Author Type: Physical Therapist Type: Therapy (PT/OT/Speech/Resp) Filed: 09/10/2022 4:21 PM Note Text: Physical Therapy Evaluation SERVICE DATE: 09/10/2022 SERVICE TIME: 1525 to 1603 ROOM: [id number] Recommended Discharge Disposition: Home PT Recommended Discharge [...] limited postural s (more content not included)... [facility] XR KNEE 2V AP/LAT RTon [...] the joint placement without evidence of complication Glycerine Plant Operator: ENOCH Transcribe Date/Time: Sep 10 2022 12:40P Dictated by : TRAY BARKER MD This examination was interpreted and the report reviewed and electronically signed by: TRAY BARKER MD on Sep 10 2022 12:42PM EST [id number] [facility] CNPN Telephone (GoWorkaBitMDNA) LAWROBERTO A ([id number]) 1960 M Date Time Provider Department 09/09/22 CHIKA CARPENTER During your visit today, we recorded the following information about you: Eda Bassmings [facility] 09/09/2022 1:25 PM Signed Patient had motion [...] suggestions on what to do? Eda Bassmings [facility] 09/09/2022 2:48 PM Signed The wilmer rep [...] knee [M17.11] Order(s):CT KNEE WO IVCON RT [[id number]] Order #: [id number] FUTURE CT KNEE WO IVCON RT [[id number]] Order #: [id number]. #:[id number] Prescriptions as of 02/12/2023 - acetaminophen (TYLENOL) [...] EDA CASTELLANOS on 02/12/23 Normal [facility] CT KNEE WO IVCON RTon 2022 CT KNEE WO IVCON RT * * *Final Report* * * DATE OF EXAM: Sep 07 2022 8:29AM [facility] 0084 - CT KNEE WO IVCON RT / PROCEDURE REASON: multiple diagnoses * * * * Physician Interpretation * * * * EXAM: CT KNEE WO IVCON RT HISTORY: Primary osteoarthritis of right knee Preop testing TECHNIQUE: CT right knee without contrast ([facility] CT protocol) CT Radiation dose: Integrated Dose-length product (DLP) for this visit = 859 mGy*cm. CT Dose Reduction Employed: Automated exposure control(AEC) and iterative recon COMPARISON: FINDINGS: Osteoarthritis, most severe in the medial joint compartment. Joint effusion. No acute abnormality at the hip and ankle. There are bilateral fat-containing inguinal hernias. . IMPRESSION: Right knee osteoarthritis, preoperative [facility] CT protocol for robotic assisted total joint replacement. Glycerine Plant Operator: [facility] Transcribe Date/Time: Sep 08 2022 12:39P Dictated by : JIHAN MIX MD This examination was interpreted and the report reviewed and electronically signed by: JIHAN MIX MD on Sep 08 2022 12:41PM EST [id number] Normal [facility] SARS-CoV-2 RNA Resp Ql MALACHI+p robeon 09-07-2022 SARS-CoV-2 (COVID-19) RNA MALACHI+probe Ql (Resp) COVID 19 RESULT: SARS-CoV-2 (Agent of COVID-19) Not Detected by RT-PCR or equivalent method. This test was developed and its performance characteristics determined by [facility]'s Regla Cheng [facility] Pathology and Laboratory Medicine [place]. This test has been authorized by FDA under an Emergency Use Authorization (EUA). This test has been validated in accordance with the FDA's Guidance Document Policy for Diagnostics Testing in Laboratories Certified to Perform High Complexity Testing under CLIA prior to Emergency use Authorization for Coronavirus Disease 2019 during the Public Health Emergency issued on October 09, 2019. Test performed by [facility], [facility] Pathology and Laboratory Medicine [place], [facility] [place] [address]. Normal [facility] Comment on above: Performed By: #### 9 4500-6 ####[facility] LABCLIA [id number] [place] [address] [place] SELF CHECK COVIDon 3 SARS-CoV-2 (COVID-19) RNA MALACHI+probe Ql (Resp) SARS-CoV-2 (Agent of COVID-19) Not Detected by RT-PCR or equivalent method. Not Detected [facility] CNPHolly 09-03-2022 CNPN Telephone (ORMDNA) ROBERTO OSBORN ([id number]) 1960 Date Time Provider Department 09/03/22 CHIKA CARPENTER ORGARETH During your visit today, we recorded the following information about you: Clemente Self 09/03/2022 3:19 PM Signed Type of form: Long-term Disability Form received via walk in from Dianne When form is completed, Fax form to [phone] Form has been forwarded to [facility] Dianne is wanting to burning supervisor the completed forms once they have been [...] EDA CASTELLANOS on 09/09/22 Normal [facility] [place] 08-22-2022 CNPN Telephone (ORMDNA) ROBERTO OSBORN SR ([id number]) 1960 M Date Time Provider Department 08/22/22 CHIKA CARPENTER ORGARETH During your visit today, we recorded the following information about you: Eda Mijares [facility] 08/22/2022 3:[address] self [...] [Z01.812, Z20.822] Order(s):CT KNEE WO IVCON RT [[id number]] Order #: [id number] FUTURE SELF CHECK COVID [SQHCCOVD] Order #: [id number]. #:[id number] Prescriptions as of 02/07/2023 - acetaminophen (TYLENOL) [...] CASTELLANOS on 02/07/23 Luis Daniel [facility] [place] 08-20-2022 KATIE Telephone (ME2E) ROBERTO OSBORN SR ([id number]) 1960 M Date Time Provider Department 08/20/22 CHIKA CARPENTER During your visit today, we recorded the following information about you: FILIBERTO Villalobos 08/20/2022 4:02 PM Signed TOTAL JOINT COMPLETE CARE PROGRAM PRE-OPERATIVE TEACHING Service Date: 08/20/2022 Service Time: 4:00 PM Date of : 1960 Gender: male Date of Surgery: 09/10/22 Procedure: Right Total Knee Replacement Complete Care Program was discussed with the patient: Prosthetic Aide Identification: Patient identified a child day care provider to help when discharged [...] Education Binder: Yes Plans discharge home with [facility]. SIGNATURE: FILIBERTO Villalobos PATIENT NAME: Roberto [...] Status:Closed by RONY DOYLE on 08/20/22 Normal [facility] Basic metabolic 2000 panelon 08-16-2022 Anion gap [Moles/Vol] 11 mmol/L Normal 9-18 [facility] Comment on above: Order Comment: Speci men Type: BLOOD SPECIMENOrdering Facility: [facility] Address: [address] [place] [address] Performed By: #### 2 276-4, 63036-7, 26733-5 ####[place] [facility]ORYCLIA [id number] [place] [address] [place] Calcium [Mass/Vol] 9.2 mg/dL Normal 8.5-10.2 [facility] Comment on above: Order Comment: Speci men Type: BLOOD SPECIMENOrdering Facility: [facility] Address: [place] [address] Performed By: #### 2 276-4, 18545-9, 50906-9 ####[facility] LABORATORYCLIA [id number] [address] OF [facility] Chloride [Moles/Vol] 101 mmol/L Normal 97-105 [facility] Comment on above: Order Comment: Speci men Type: BLOOD SPECIMENOrdering Facility: [facility] Address: [address] [place] [address] Performed By: #### 2 276-4, 79875-2, 60361-9 ####[facility] LABORATORYCLIA [id number] [place] [address] [place] CO2 [Moles/Vol] 25 mmol/L Normal 22-30 [facility] Comment on above: Order Comment: Speci men Type: BLOOD SPECIMENOrdering Facility: [facility] Address: [address] [place] [address] Performed By: #### 2 276-4, 21718-9, 28044-9 ####[facility] LABORATORYCLIA [id number] [address] STATES OF [facility] Creatinine [Mass/Vol] 0.56 mg/dL Low 0.73-1.22 [facility] Comment on above: Order Comment: Speci men Type: BLOOD SPECIMENOrdering Facility: [facility] Address: [address] [place] [address] Performed By: #### 2 276-4, 47531-4, 21080-5 ####[facility] LABORATORYCLIA [id number] [address] OF [facility] ESTIMATED GLOMERULAR FILTRATION RATE 111 mL/min/1.73m??? Normal >=60 [facility] Comment on above: Order Comment: Speci men Type: BLOOD SPECIMENOrdering Facility: [facility] Address: [address] [place] [address] Result Comment: Snehal mated Glomerular Filtration Rate [...] actual GFR. Performed By: #### 2 276-4, 95098-9, 15030-0 ####[facility] [place]ORATORYCLIA [id number] [place] [address] [place] Glucose [Mass/Vol] 140 mg/dL High 74-99 [facility] Comment on above: Order Comment: Vera grant Type: BLOOD SPECIMENOrdering Facility: [facility] Address: [address] [place], [place] [address] Result Comment: The [place] Diabetes Association (ADA) provides guidance for cutoff [...] Standards of Medical Care in Diabetes 2016, [place] [employer] Association. Diabetes Care. 2016.39(Suppl 1). Performed By: #### 2 276-4, 19606-0, 75412-8 ####[facility] [place] LABORATORYCLIA [id number] [place] [id number] [place] Potassium [Moles/Vol] 4.3 mmol/L Normal 3.7-5.1 [facility] Comment on above: Order Comment: Vera [facility] Type: BLOOD SPECIMENOrdering Facility: [facility] Address: [address] [place] [address] Performed By: #### 2 276-4, 57919-2, 72881-5 ####[facility] LABORATORYCLIA [id number] [place] [address] [place] Sodium [Moles/Vol] 137 mmol/L Normal 136-144 [facility] Comment on above: Order Comment: Speci men Type: BLOOD SPECIMENOrdering Facility: [facility] Address: [address] [facility] [place] [address] Performed By: #### 2 276-4, 09715-0, 44519-2 ####[facility] LABORATORYCLIA [id number] [address] STATES [facility] Urea nitrogen [Mass/Vol] 12 mg/dL Normal 9-24 [facility] Comment on above: Order Comment: Speci men Type: BLOOD SPECIMENOrdering Facility: [facility] Address: [address] [place] [address] Performed By: #### 2 276-4, 34697-5, 66035-3 ####[facility] LABORATORYCLIA [id number] [address] [place] Anion gap [Moles/Vol] 11 mmol/L 9 - 18 mmol/L [facility] Calcium [Mass/Vol] 9.2 mg/dL 8.5 - 10. 2 mg/dL [facility] Chloride [Moles/Vol] 101 mmol/L 97 - 10 5 mmol/L [facility] CO2 [Moles/Vol] 25 mmol/L 22 - 30 mmol/L [facility] Creatinine [Mass/Vol] 0.56 mg/dL Low 0.73 - 1.22 mg/dL [facility] Estimated Glomerular Filtration Rate 111 mL/min/1.73m >=60 mL/min/1.73m [facility] Glucose [Mass/Vol] 140 mg/dL High 74 - 99 mg/dL [facility] Potassium [Moles/Vol] 4.3 mmol/L 3.7 - 5.1 mmol/L [facility] Sodium [Moles/Vol] 137 mmol/L 136 - 144 mmol/L [facility] Urea nitrogen [Mass/Vol] 12 mg/dL 9 - 24 mg/dL [facility] CBC W Auto Differential pane l (Bld)on 08-16-2022 Basophils (Bld) [#/Vol] 0.03 10*3/uL Normal <0.11 [facility] Comment on above: Order Comment: Speci men Type: BLOOD SPECIMENOrdering Facility: [facility] Address: [address] [place] [address] Performed By: #### 5 7021-8 ####[facility] LABORATORYCLIA [id number] [address] [place] Basophils/100 WBC (Bld) 0.3 % Normal [facility] Comment on above: Order Comment: Speci men Type: BLOOD SPECIMENOrdering Facility: [facility] Address: [address] [place] [address] Performed By: #### 5 7021-8 ####[facility] LABORATORYCLIA [id number] [place] [address] [place] Differential cell count method Nom (Bld) Auto Normal [facility] Comment on above: Order Comment: Speci men Type: BLOOD SPECIMENOrdering Facility: [facility] Address: [address] [place] [address] Performed By: #### 5 7021-8 ####[facility] LABORATORYCLIA [id number] [place] [address] [place] Eosinophils (Bld) [#/Vol] 0.07 10*3/uL Normal <0.46 [facility] Comment on above: Order Comment: Speci men Type: BLOOD SPECIMENOrdering Facility: [facility] Address: [address] [place] [address] Performed By: #### 5 7021-8 ####[facility] LABORATORYCLIA [id number] [address] Eosinophils/100 WBC (Bld) 0.7 % Normal [facility] Comment on above: Order Comment: Speci men Type: BLOOD SPECIMENOrdering Facility: [facility] Address: [address] [place] [address] Performed By: #### 5 7021-8 ####[facility] LABORATORYCLIA [id number] [address] [place] Erythrocyte distribution width (RBC) [Ratio] 14.3 % Normal 11.5-15.0 [facility] Comment on above: Order Comment: Speci men Type: BLOOD SPECIMENOrdering Facility: [facility] Address: [address] [place] [address] Performed By: #### 5 7021-8 ####[facility] LABORATORYCLIA [id number] [address] [place] Hematocrit (Bld) [Volume fraction] 39.9 % Normal 39.0-51.0 [facility] Comment on above: Order Comment: Speci men Type: BLOOD SPECIMENOrdering Facility: [facility] Address: [address] [place] [address] Performed By: #### 5 7021-8 ####[facility] LABORATORYCLIA [id number] [place] [address] [place] Hemoglobin (Bld) [Mass/Vol] 13.7 g/dL Normal 13.0-17.0 [facility] Comment on above: Order Comment: Speci men Type: BLOOD SPECIMENOrdering Facility: [facility] Address: [address] [place] [address] Performed By: #### 5 7021-8 ####[facility] LABORATORYCLIA [id number] [place] [address] [place] Immature granulocytes (Bld) [#/Vol] 0.05 10*3/uL Normal <0.10 [facility] Comment on above: Order Comment: Speci men Type: BLOOD SPECIMENOrdering Facility: [facility] Address: [address] [place] [address] Performed By: #### 5 7021-8 ####[facility] LABORATORYCLIA [id number] [address] [place] Immature granulocytes/100 WBC (Bld) 0.5 % Normal [facility] Comment on above: Order Comment: Speci men Type: BLOOD SPECIMENOrdering Facility: [facility] Address: [address] [place] [address] Performed By: #### 5 7021-8 ####[facility] LABORATORYCLIA [id number] [place] [address] [place] Lymphocytes (Bld) [#/Vol] 1.14 10*3/uL Normal 1.00-4.00 [facility] Comment on above: Order Comment: Speci men Type: BLOOD SPECIMENOrdering Facility: [facility] Address: [address] [place] [address] Performed By: #### 5 7021-8 ####[facility] LABORATORYCLIA [id number] [address] Lymphocytes/100 WBC (Bld) 10.7 % Normal [facility] Comment on above: Order Comment: Speci men Type: BLOOD SPECIMENOrdering Facility: [facility] Address: [address] [place] [address] Performed By: #### 5 7021-8 ####[facility] LABORATORYCLIA [id number] [address] MCH (RBC) [Entitic mass] 30.7 pg Normal 26.0-34.0 [facility] Comment on above: Order Comment: Speci men Type: BLOOD SPECIMENOrdering Facility: [facility] Address: [address] [place] [address] Performed By: #### 5 7021-8 ####[facility] LABORATORYCLIA [id number] [address] MCHC (RBC) [Mass/Vol] 34.3 g/dL Normal 30.5-36.0 [facility] Comment on above: Order Comment: Speci men Type: BLOOD SPECIMENOrdering Facility: [facility] Address: [address] [place] [address] Performed By: #### 5 7021-8 ####[facility] LABORATORYCLIA [id number] [address] MCV (RBC) [Entitic vol] 89.5 fL Normal 80.0-100.0 [facility] Comment on above: Order Comment: Speci men Type: BLOOD SPECIMENOrdering Facility: [facility] Address: [address] [place] [address] Performed By: #### 5 7021-8 ####[facility] LABORATORYCLIA [id number] [address] Monocytes (Bld) [#/Vol] 0.60 10*3/uL Normal <0.87 [facility] Comment on above: Order Comment: Speci men Type: BLOOD SPECIMENOrdering Facility: [facility] Address: [address] [place] [address] Performed By: #### 5 7021-8 ####[facility] LABORATORYCLIA [id number] [place] [address] [place] Monocytes/100 WBC (Bld) 5.6 % Normal [facility] Comment on above: Order Comment: Speci men Type: BLOOD SPECIMENOrdering Facility: [facility] Address: [address] [place] [address] Performed By: #### 5 7021-8 ####[facility] LABORATORYCLIA [id number] [place] [address] [place] Neutrophils (Bld) [#/Vol] 8.74 10*3/uL High 1.45-7.50 [facility] Comment on above: Order Comment: Speci men Type: BLOOD SPECIMENOrdering Facility: [facility] Address: [address] [place] [address] Performed By: #### 5 7021-8 ####[facility] LABORATORYCLIA [id number] [place] [address] [place] Neutrophils/100 WBC (Bld) 82.2 % Normal [facility] Comment on above: Order Comment: Speci men Type: BLOOD SPECIMENOrdering Facility: [facility] Address: [address] [place] [address] Performed By: #### 5 7021-8 ####[facility] LABORATORYCLIA [id number] [place] [address] [place] Nucleated RBC (Bld) [#/Vol] 10*3/uL Normal <0.01 [facility] Comment on above: Order Comment: Speci men Type: BLOOD SPECIMENOrdering Facility: [facility] Address: [address] [place] [address] Performed By: #### 5 7021-8 ####[facility] LABORATORYCLIA [id number] [place] [address] [place] Nucleated RBC/100 WBC (Bld) [Ratio] 0.0 /100 WBC Normal [facility] Comment on above: Order Comment: Speci men Type: BLOOD SPECIMENOrdering Facility: [facility] Address: [address] [place] [address] Performed By: #### 5 7021-8 ####[facility] LABORATORYCLIA [id number] [place] [address] [place] Platelet mean volume (Bld) [Entitic vol] 9.0 fL Normal 9.0-12.7 [facility] Comment on above: Order Comment: Speci men Type: BLOOD SPECIMENOrdering Facility: [facility] Address: [address] [place] [address] Performed By: #### 5 7021-8 ####[facility] LABORATORYCLIA [id number] [place] [address] [place] Platelets (Bld) [#/Vol] 314 10*3/uL Normal 150-400 [facility] Comment on above: Order Comment: Speci men Type: BLOOD SPECIMENOrdering Facility: [facility] Address: [address] [place] [address] Performed By: #### 5 7021-8 ####[facility] LABORATORYCLIA [id number] [place] [address] [place] RBC (Bld) [#/Vol] 4.46 10*6/uL Normal 4.20-6.00 [facility] Comment on above: Order Comment: Speci men Type: BLOOD SPECIMENOrdering Facility: [facility] Address: [address] [place] [address] Performed By: #### 5 7021-8 ####[facility] LABORATORYCLIA [id number] [place] [address] [place] WBC (Bld) [#/Vol] 10.63 10*3/uL Normal 3.70-11.00 [facility] Comment on above: Order Comment: Speci men Type: BLOOD SPECIMENOrdering Facility: [facility] Address: [address] [place] [address] Performed By: #### 5 7021-8 ####[facility] LABORATORYCLIA [id number] [place] [address] [place] Basophils (Bld) [#/Vol] 0.03 10*3/uL <0.11 k/uL [facility] Basophils/100 WBC (Bld) 0.3 % [facility] Differential cell count method Nom (Bld) Auto [facility] Eosinophils (Bld) [#/Vol] 0.07 10*3/uL <0.46 k/uL [facility] Eosinophils/100 WBC (Bld) 0.7 % [facility] Erythrocyte distribution width (RBC) [Ratio] 14.3 % 11.5 - 15.0 % [facility] Hematocrit (Bld) [Volume fraction] 39.9 % 39.0 - 51.0 % [facility] [facility] Hemoglobin (Bld) [Mass/Vol] 13.7 g/dL 13.0 - 17.0 g/dL [facility] Immature granulocytes (Bld) [#/Vol] 0.05 10*3/uL <0.10 k/uL [facility] Immature granulocytes/100 WBC (Bld) 0.5 % [facility] Lymphocytes (Bld) [#/Vol] 1.14 10*3/uL 1.00 - 4.00 k/uL [facility] Lymphocytes/100 WBC (Bld) 10.7 % [facility] MCH (RBC) [Entitic mass] 30.7 pg 26.0 - 34.0 pg [facility] MCHC (RBC) [Mass/Vol] 34.3 g/dL 30.5 - 36.0 g/dL [facility] MCV (RBC) [Entitic vol] 89.5 fL 80.0 - 100.0 fL [facility] Monocytes (Bld) [#/Vol] 0.60 10*3/uL <0.87 k/uL [facility] Monocytes/100 WBC (Bld) 5.6 % [facility] Neutrophils (Bld) [#/Vol] 8.74 10*3/uL High 1.45 - 7.50 k/uL [facility] Neutrophils/100 WBC (Bld) 82.2 % [facility] Nucleated RBC (Bld) [#/Vol] <0.01 k/uL [facility] Nucleated RBC/100 WBC (Bld) [Ratio] 0.0 /100 WBC [facility] Platelet mean volume (Bld) [Entitic vol] 9.0 fL 9.0 - 12.7 fL [facility] Platelets (Bld) [#/Vol] 314 10*3/uL 150 - 400 k/uL [facility] RBC (Bld) [#/Vol] 4.46 10*6/uL 4.20 - 6.0 0 m/uL [facility] WBC (Bld) [#/Vol] 10.63 10*3/uL 3.70 - 11 .00 k/uL [facility] ECG COMPLETEon 08-16-2022 Atrial Rate 77 BPM [facility] Calculated P [place] 57 degrees [facility] Calculated R [place] -3 degrees [facility] Calculated T [place] 30 degrees [facility] P-R Interval 172 ms [facility] QRS Duration 98 ms [facility] QT Interval 378 ms [facility] QTC Calculation (Bazett) 427 ms [facility] Ventricular Rate 77 BPM [facility] [id number] 08-16-2022 ECG01 Ventricular Rate : 7 7 BPM Atrial Rate : 77 BPM P-R Interval : 172 ms QRS Duration : 98 ms Q-T Interval : 378 ms QTC Calculation(Bazett) : 427 ms Calculated P [place] : 57 degrees Calculated R [place] : -3 degrees Calculated T [place] : 30 degrees NORMAL SINUS RHYTHM NORMAL ECG WHEN COMPARED WITH ECG OF 29-JUL-2014 08:31, NO SIGNIFICANT CHANGE WAS FOUND Confirmed by ELIJAH BURNS M.D. ([id number]) on 08/16/2022 2:14:14 PM NAME : ROBERTO OSBORN PID : [id number] : 1960 Gender : Male Race : ORD : [id number] Procedure Date : Aug 16 2022 08:49:58 Edit Date : Aug 16 2022 14:14:15 Diagnosis: NORMAL SINUS RHYTHM NORMAL ECG WHEN COMPARED WITH ECG OF 29-JUL-2014 08:31, NO SIGNIFICANT CHANGE WAS FOUND Confirmed by ELIJAH BURNS M.D. ([id number]) on 08/16/2022 2:14:14 PM Test Reason : Location : 10 : [facility]/ Overread By : ELIJAH BURNS M.D. Edited By : ELIJAH BURNS M.D. Referred By : YANET BOYLE Acquired by : [facility] FERRITIN BLDon 08-16-2022 Ferritin [Mass/Vol] 138.0 ng/mL 30.3 - 5 65.7 ng/mL [facility] Ferritin SerPl-mCncon 01-06- 2023 Ferritin [Mass/Vol] 138.0 ng/mL Normal 30.3-565.7 [facility] Comment on above: Order Comment: Vera grant Type: BLOOD SPECIMENOrdering Facility: [facility] Address: [place] [address] Performed By: #### 2 276-4, 85320-7, 71703-3 ####[place] [facility]ORY[facility] [id number] [address] OF [facility] HbA1c (Bld)on 08-16-2022 Average glucose Estimated from glycated hemoglobin (Bld) [Mass/Vol] 131 mg/dL [facility] HbA1c (Bld) [Mass fraction] 6.2 % High 4.3 - 5.6 % [facility] Average glucose Estimated from glycated hemoglobin (Bld) [Mass/Vol] 131 mg/dL Normal [facility] Comment on above: Order Comment: Vera grant Type: BLOOD SPECIMENOrdering Facility: [facility] Address: [address] [place] [address] Result Comment: eAG: (Estimated average glucose) is a calculated value from HgbA1c and is member service representative of the average blood glucose level in the last 2-3 month period. Performed By: #### 5 5454-3 ####[facility] LABCLIA [id number] [address] STATES OF [facility] HbA1c (Bld) [Mass fraction] 6.2 % High 4.3-5.6 [facility] Comment on above: Order Comment: Vera grant Type: BLOOD SPECIMENOrdering Facility: [facility] Address: [address] [place] [address] Result Comment: Amer ican Diabetes Association guidelines indicate that patients with HgbA1c in the range 5.7-6.4% are at increased risk for development of diabetes, and intervention by lifestyle modification may be beneficial. HgbA1c greater or equal to 6.5% is considered diagnostic of diabetes. Performed By: #### 5 5454-3 ####[facility] LABCLIA [id number] [address] OF [facility] Iron and Iron binding capaci ty panelon 08-16-2022 Iron [Mass/Vol] 151 ug/dL Normal 41-186 [facility] Comment on above: Order Comment: Speci men Type: BLOOD SPECIMENOrdering Facility: [facility] Address: [place] [address] Performed By: #### 2 276-4, 50084-4, 55852-2 ####[place] [facility]ORY[facility] [id number] [address] Iron binding capacity [Mass/Vol] 338 ug/dL Normal 232-386 [facility] Comment on above: Order Comment: Speci men Type: BLOOD SPECIMENOrdering Facility: [facility] Address: [address] [place] [address] Performed By: #### 2 276-4, 96280-9, 51773-3 ####[facility]ATORYCLIA [id number] [address] Iron/TIBC [Molar ratio] 44.7 % Normal 15.0-57.0 [facility] Comment on above: Order Comment: Speci men Type: BLOOD SPECIMENOrdering Facility: [facility] Address: [address] [place] [address] Performed By: #### 2 276-4, 17965-5, 35701-7 ####[place] [facility]ORYCLIA [id number] [address] Iron [Mass/Vol] 151 ug/dL 41 - 186 ug/dL [facility] Iron binding capacity [Mass/Vol] 338 ug/dL 232 - 386 ug/dL [facility] Iron/TIBC [Molar ratio] 44.7 % 15.0 - 57.0 % [facility] TYPE AND SCREEN,30 DAYon ABO O Normal [facility] Comment on above: Order Comment: Speci men Type: BLOOD SPECIMENOrdering Facility: [facility] Address: [address] [place] [address] Performed By: #### T SCR30 ####[place] [facility]ANKCLIA [id number] [address] HISTORICAL AB SCR STATUS Negative Normal [facility] Comment on above: Order Comment: Speci men Type: BLOOD SPECIMENOrdering Facility: [facility] Address: [address] [place] [address] Performed By: #### T SCR30 ####[facility] [facility] BANKCLIA [id number] [place] [address] [facility] Rh Nom (Bld) Positive Normal [facility] Comment on above: Order Comment: Speci men Type: BLOOD SPECIMENOrdering Facility: [facility] Address: [address] Performed By: #### T SCR30 ####[place] B[facility] BANKIA [id number] [address] OF [place] ABO O [facility] HIstorical Ab Scr Status Negative [facility] Rh Nom (Bld) Positive [facility] HISTORY PHYSICALon HISTORY PHYSICAL HNO ID: [id number] Author: Yanet Boyle PA-C Service: ? Author Type: Physician Pull Up Hand Type: HANDP Filed: 08/16/2022 9:28 AM Note [...] manage symptoms. Procedure scheduled on 09/10/2022 at [place]. REVIEW OF SYSTEMS: General: No weight loss, malaise or fevers. Neurological: No history of TIA's, stroke, CLINICAL PHARMACIST tumor, impaired sensorium, hemiplegia, paraplegia or quadraplegia. [...] Yes umeclid (more content not included)... Normal [facility] XR Shoulder - right 2 Viewso n 08-06-2022 IMPRESSION: Degenerative changes as discussed Glycerine Plant Operator: ENOCH Transcribe Date/Time: Aug 06 2022 12:49P Dictated by : ADAL RODRIGUEZ DO This examination was interpreted and the report reviewed and electronically signed by: ADAL RODRIGUEZ DO on Aug 06 2022 12:51PM [facility] * * *Final Report* * [...] well-preserved. No fractures or dislocations are seen. [facility] Provider, Sunny Jiang - 08/06/2022 * [...] seen. IMPRESSION IMPRESSION: Degenerative changes as discussed Glycerine Plant Operator: PSCMayra Transcribe Date/Time: Aug 06 2022 12:49P Dictated by : ADAL RODRIGUEZ DO This examination was interpreted and the report reviewed and electronically signed by: ADAL RODRIGUEZ DO on Aug 06 2022 12:51PM [facility] XR Shoulder - right 2 ViewsO rdered By: Ccf Provider on 08-06-2022 [facility] XR SHOULDER 2V AP/TRUE AP RT [...] are seen. IMPRESSION: Degenerative changes as discussed Glycerine Plant Operator: ENOCH Transcribe Date/Time: Aug 06 2022 12:49P Dictated by : ADAL RODRIGUEZ DO This examination was interpreted and the report reviewed and electronically signed by: ADAL RODRIGUEZ DO on Aug 06 2022 12:51PM EST [id number] Shoulder - right 2 Viewso n 08-02-2022 Radiology Study observation (narrative) [facility] XR KNEE GENERAL 4V AP BOTH/P A BOTH/LAT/MERC BILATERALon 02-22-2022 [facility] CNPNon 05-02-2020 CNPN Telephone ([id number]) ROBERTO OSBORN SR ([id number]) 1960 M Date Time Provider Department 05/02/20 [place] [address] During your visit today, we recorded the following information about you: RT Ranjan, Tech 05/02/2020 1:03 PM Signed LMOM for patient to schedule 05/02. RT Izabella, Tech 05/02/2020 4:27 PM Signed Patient called back and stated he was going to call [facility] before scheduling. Jazmin Alcantara Allergies As [...] JAZMIN ALCANTARA on 05/02/20 Normal [facility] CT Spine Lumbar w/o Contrast on 04-26-2020 CT Spine Lumbar w/o Contrast Patient Name: ROBERTO OSBORN CT Exam Date/Time 04/25/2020 09:20:[address] Spine Lumbar w/o Contrast Ordering Physician NESSA LIAO BRANDY M Accession Number [id number] CPT4 Codes 24356 () Reason For Exam RIGHT LEG WEAKNESS, [...] Transcribed Date and Time: 04/26/2020 9:58 Normal [facility] NM BONE SCAN WHOLE BODYon Patient Name: ROBERTO OSBORN ---Nuc Med--- Exam Date/Time 04/25/2020 13:03:31 EDT Exam NM Bone Imaging Whole Body Ordering Physician NESSA LIAO BRANDY M Accession Number [id number] CPT4 Codes 38308 () Reason For Exam low back pain [...] R Transcribed Date and Time: 04/25/2020 1:54 [place], [place] Tim, [facility] Results From [facility] - 04/25/2020 1:54 PM EDT Patient Name: ROBERTO OSBORN ---Nuc Med--- Exam Date/Time 04/25/2020 13:03:31 EDT Exam NM Bone Imaging Whole Body Ordering Physician NESSA LIAO BRANDY M Accession Number [id number] CPT4 Codes 79069 () Reason For Exam low back pain [...] R Transcribed Date and Time: 04/25/2020 1:54 [place], [place] NM Bone Imaging Whole Bodyon 04-25-2020 NM Bone Imaging Whole Body Patient Name: ROBERTO OSBORN Nuc Med Exam Date/Time 04/25/2020 13:03:31 EDT Exam NM Bone Imaging Whole Body Ordering Physician NESSA LIAO BRANDY M Accession Number [id number] CPT4 Codes 29200 () Reason For Exam low back pain [...] Transcribed Date and Time: 04/25/2020 1:54 Normal [facility] US Lower Extremity Venous Ri danii 03-27-2020 [facility] -- Right Lower Extremity Venous Duplex Report Ordering Physician: Awilda Vivas Lead Tinner: Steph Abraham RDMS, T Interpreting Physician: Marti Valles -- Location: [facility] -- Indications: Pain right thigh. -- [...] Images were obtained using a Nancy i700 SpaceListio vascular ultrasound machine. -- Venous flow and [...] electronically signed by Marti Valles 03/27/2020 17:43 [facility] [place], [place] Tim, [facility] Cardiology Results From K[facility] - 03/27/2020 5:44 PM EDT [facility] -- Right Lower Extremity Venous Duplex Report Ordering Physician: Awilda Vivas Lead Tinner: Steph Abraham RDMS RVT Interpreting Physician: Marti Valles -- Location: [facility] [place] -- Indications: Pain right thigh. -- [...] supine position. Images were obtained using a [place] i700 Aplio vascular ultrasound machine. -- Venous [...] electronically signed by Marti Valles 03/27/2020 17:43 [place], [place] VL Venous Duplex US Lower Ex t Casey 03-27-2020 VL Venous Duplex US Lower Ext Right Patient Name: ROBERTO OSBORN Ultrasound Exam Date/Time 03/27/2020 16:45:00 EDT Exam VL Venous Duplex US Lower Ext Right Ordering Physician AWILDA VIVAS Accession Number [id number] CPT4 Codes 76621 () Reason For Exam pain of thigh of right lower extremity Report [facility] -- Right Lower Extremity Venous Duplex Report Ordering Physician: Awilda Vivas Lead Tinner: Steph Abraham RDVA, T Interpreting Physician: Marti Valles -- Location: [facility] -- Indications: Pain right thigh. -- [...] supine position. Images were obtained using a [employer] i700 Fair Observer vascular ultrasound machine. -- Venous flow and [...] 03/27/2020 5:43 pm Signed by: MARTI VALLES [facility] MRI Spine Lumbar w/ + w/o Co ntraston 03-24-2020 MRI Spine Lumbar w/ + w/o Contrast Patient Name: ROBERTO OSBORN MRI Exam Date/Time 03/22/2020 13:59:28 EDT Exam MRI Spine Lumbar w/ + w/o Contrast Ordering Physician NESSA LIAO BRANDY M Accession Number [id number] CPT4 Codes 43101 () Reason For Exam stenosis with neurogenic [...] Transcribed Date and Time: 03/24/2020 9:24 Normal [facility] CBC Auto Differentialon 04- Absolute Baso # 0.1 10*3/uL 0 - 0.2 10*3/uL [facility], [place] Comment on above: Test Performed by [facility], [address] [place] [address], [place] [address] Absolute Neut # 3.7 10*3/uL 1.8 - 7 10*3/uL [place], [place] Comment on above: Test Performed by [facility], [address] [place] [address] Interpretation and review of laboratory results Abnormal [place], [place] Test Performed by [facility], [address] [place] [address] [place], [place] CT HEAD WO CONTRASTon 2019 Patient Name: ROBERTO OSBORN ---CT--- Exam Date/Time 11/27/2019 04:15:[address] Head or Brain w/o Contrast Ordering Physician MD KRISTIAN, TRAY Costello Accession Number [id number] CPT4 Codes 18426 () Reason For Exam left hand numbness [...] WILLIAM Transcribed Date and Time: 11/27/2019 4:25 [place] Tim, [facility] Results From [facility] - 11/27/2019 4:28 AM EDT Patient Name: ROBERTO OSBORN ---CT--- Exam Date/Time 11/27/2019 04:15:[address] Head or Brain w/o Contrast Ordering Physician MD TOWNSEND MARK D Accession Number [id number] CPT4 Codes 05323 () Reason For Exam left hand numbness [...] WILLIAM Transcribed Date and Time: 11/27/2019 4:25 [place] CT Head or Brain w/o Contras ton 11-27-2019 CT Head or Brain w/o Contrast Patient Name: ROBERTO OSBORN CT Exam Date/Time 11/27/2019 04:15:[address] Head or Brain w/o Contrast Ordering Physician MD KRISTIAN, TRAY Costello Accession Number [id number] CPT4 Codes 06959 () Reason For Exam left hand numbness [...] WILLIAM Transcribed Date and Time: 11/27/2019 4:25 [facility] Comp Panel with Mg Reflexon 11-27-2019 ALP [Catalytic activity/Vol] 67 U/L Normal 38-126 [facility] Comment on above: Performed By: #### H EMDHugo CMP3M, TROPN #### [place] [address] [place] [address] ALT [Catalytic activity/Vol] 20 U/L Normal 0-49 [facility] Comment on above: Result Comment: The ALT test is performed by an updated assay method. Please note that the reference intervals have been changed and are now sex specific. Performed By: #### H EMDF, CMP3M, TROPN #### [address] [place] [address] AST [Catalytic activity/Vol] 27 U/L Normal 15-46 [facility] Comment on above: Performed By: #### H EMDF, CMP3M, TROPN #### [address] [place] [address] Calcium [Mass/Vol] 8.7 mg/dL Normal 8.4-10.4 [facility] Comment on above: Performed By: #### H EMDF, CMP3M, TROPN #### [address] [place] [address] Glucose [Mass/Vol] 147 mg/dL High 70-100 [facility] Comment on above: Performed By: #### H EMDF, CMP3M, TROPN #### [address] [place] [address] Urea nitrogen [Mass/Vol] 6 mg/dL Low 7-20 [facility] Comment on above: Performed By: #### H EMDF, CMP3M, TROPN #### [address] [place] [address] Anion gap [Moles/Vol] 9 Normal [facility] Comment on above: Performed By: #### H EMDF, CMP3M, TROPN #### [place] [address] [place] [address] Bilirubin [Mass/Vol] 0.6 mg/dL Normal 0.2-1.3 [facility] Comment on above: Performed By: #### H EMDF, CMP3M, TROPN #### [address] [address] CO2 [Moles/Vol] 25 mmol/L Normal 22-30 [facility] Comment on above: Performed By: #### H MISTY [place]3M, TROPN #### [address] [address] Creatinine [Mass/Vol] 0.57 mg/dL Normal 0.52-1.25 [facility] Comment on above: Performed By: #### H MISTY [place]3M, TROPN #### [address] [address] GFR/1.73 sq M predicted among blacks MDRD (S/P/Bld) [Vol rate/Area] mL/min/{1.73_m2} Normal >60 [facility] Comment on above: Performed By: #### H MISTY [place]3M, TROPN #### [address] [address] GFR/1.73 sq M predicted among non-blacks MDRD (S/P/Bld) [Vol rate/Area] mL/min/{1.73_m2} Normal >60 [facility] Comment on above: Result Comment: Sour ce- MDRD equation with creatinine calibration to IDMS(NKDEP) eGFR not recommended for drug dose adjustment Performed By: #### H MISTY [place]3M, TROPN #### [address] [address] Protein [Mass/Vol] 6.8 g/dL Normal 6.3-8.2 [facility] Comment on above: Performed By: #### H GE CMP3M, TROPN #### [address] [address] Albumin [Mass/Vol] 4.0 g/dL Normal 3.5-5.0 [facility] Comment on above: Performed By: #### H GE CMP3M, TROPN #### [address] [address] Chloride [Moles/Vol] 102 mmol/L Normal 98-107 [facility] Comment on above: Performed By: #### H EMDF, CMP3M, TROPN #### [address] [address] Potassium [Moles/Vol] 3.7 mmol/L Normal 3.5-5.1 [place], [place] Comment on above: Test Performed by [facility], [address] [place] [address] Performed By: #### H EMDF, CMP3M, TROPN #### [address] [address] Sodium [Moles/Vol] 136 mmol/L Normal 135-145 [place] Comment on above: Performed By: #### H EMDF, CMP3M, TROPN #### [address] [address] Comprehensive Metabolic Pane l w/ Reflex to MGon 11-27-2019 Albumin [Mass/Vol] 4.0 g/dL 3.5 - 5 g/dL [place], [place] Comment on above: Test Performed by [facility], [address] [place] [address] ALP [Catalytic activity/Vol] 67 U/L 38 - 126 U/L [place] Comment on above: Test Performed by [facility], [address] [place] [address] ALT [Catalytic activity/Vol] 20 U/L 0 - 49 U/L [place] Comment on above: Test Performed by [facility], [address] [place] [address] The ALT test is performed by an updated assay method. Please note that the reference intervals have been changed and are now sex specific. Anion gap [Moles/Vol] 9 mmol/L [place], [place] Comment on above: Test Performed by [facility], [address] [place] [address] AST [Catalytic activity/Vol] 27 U/L 15 - 46 U/L [place] Comment on above: Test Performed by [facility], [address] [place] [address] Bilirubin Ql (U) 0.6 mg/dL 0.2 - 1.3 mg/dL [place] Comment on above: Test Performed by [address] [address] Calcium [Mass/Vol] 8.7 mg/dL 8.4 - 10. 4 mg/dL [place] Comment on above: Test Performed by [facility], [address] [place] [address] Chloride [Moles/Vol] 102 mmol/L 98 - 10 7 mmol/L [place] Comment on above: Test Performed by [facility], [address] [place] [address] CO2 [Moles/Vol] 25 mmol/L 22 - 30 mmol/L [place] Comment on above: Test Performed by [facility], [address] [place] [address] Creatinine [Mass/Vol] 0.57 mg/dL 0.52 - 1.25 mg/dL [place] Comment on above: Test Performed by [facility], [address] [place] [address] EGFR IF NonAfrican Lithuanian >60.0 >60 mL/min [place] Comment on above: Test Performed by [facility], [address] [place] [address] Source- MDRD equation with creatinine calibration to IDMS(NKDEP) eGFR not recommended for drug dose adjustment GFR/1.73 sq M predicted among blacks MDRD (S/P/Bld) [Vol rate/Area] mL/min/{1.73_m2} >60 mL/min [place] Comment on above: Test Performed by [facility], [address] [place] [address] Glucose [Mass/Vol] 147 mg/dL High 70 - 100 mg/dL [place] Comment on above: Test Performed by [facility], [address] [place] [address] Interpretation and review of laboratory results Abnormal [place] Protein [Mass/Vol] 6.8 g/dL 6.3 - 8.2 g/dL [place] Comment on above: Test Performed by [facility], [address] [place] [address] Urea nitrogen [Mass/Vol] 6 mg/dL Low 7 - 20 mg/dL [place] Comment on above: Test Performed by [facility], [address] [place] [address] Test Performed by [facility], [address] [place] [address] [place] Hemogram w/ Autodiffon 11-26 Abs Baso Cnt 0.1 10*3/uL Normal 0.0-0.[address] [facility] Comment on above: Performed By: #### H EMDF, CMP3M, TROPN #### [address] [address] Abs Neutrophile Cnt 3.7 10*3/uL Normal 1.8-7.0 [facility] Comment on above: Performed By: #### H EMDF, CMP3M, TROPN #### [address] [address] Basophils/100 WBC (Bld) 0.7 % Normal 0.0-2.0 [place] Comment on above: Test Performed by [facility], [address] [place] [address] Performed By: #### H EMDF, CMP3M, TROPN #### [address] [address] Eosinophils (Bld) [#/Vol] 0.2 10*3/uL Normal 0.0-0.5 [place] Comment on above: Test Performed by [facility], [address] [place] [address] Performed By: #### H EMDF, CMP3M, TROPN #### [address] [address] Eosinophils/100 WBC (Bld) 3.2 % Normal 1.0-6.0 [place] Comment on above: Test Performed by [facility], [address] [place] [address] Performed By: #### H EMDF, CMP3M, TROPN #### [address] [address] Erythrocyte distribution width (RBC) [Ratio] 13.3 % Normal 11.5-14.5 [place] Comment on above: Test Performed by [facility], [address] [place] [address], [place] [address] Performed By: #### H EMDF, CMP3M, TROPN #### [address] [place] [address] Granulocytes/100 WBC (Bld) 48.4 % Normal 40.0-80.0 [place] Comment on above: Test Performed by [facility], [address] [place] [address], [place] [address] Performed By: #### H EMDF, CMP3M, TROPN #### [address] [place] [address] Hematocrit (Bld) [Volume fraction] 43.8 % Normal 40.0-52.0 [place] Comment on above: Test Performed by [facility], [address] [place] [address], [place] [address] Performed By: #### H EMDF, CMP3M, TROPN #### [address] [address] Hemoglobin (Bld) [Mass/Vol] 14.4 g/dL Normal 13.0-18.0 [place], [place] Comment on above: Test Performed by [facility], [address] [place] [id number] Performed By: #### H EMDF, CMP3M, TROPN #### [address] [place] [address] Lymphocytes (Bld) [#/Vol] 2.7 10*3/uL Normal 1.0-4.3 [place], [place] Comment on above: Test Performed by [facility], [address] [place] [address], [place] [address] Performed By: #### H EMDF, CMP3M, TROPN #### [address] [place] [address] Lymphocytes/100 WBC (Bld) 35.2 % Normal 20.0-40.0 [place] Comment on above: Test Performed by [facility], [address] [place] [id number] Performed By: #### H EMDF, CMP3M, TROPN #### [address] [place] [address] MCH (RBC) [Entitic mass] 29.1 pg Normal 26.0-34.0 [place] Comment on above: Test Performed by [facility], [address] [place] [id number] Performed By: #### H EMDF, CMP3M, TROPN #### [address] [address] MCHC (RBC) [Mass/Vol] 33.0 % Normal 32.0-36.0 [place], [place] Comment on above: Test Performed by [facility], [address] [place] [id number] Performed By: #### H EMDF, CMP3M, TROPN #### [address] [address] MCV (RBC) [Entitic vol] 88.2 fL Normal 80.0-98.0 [place] Comment on above: Test Performed by [facility], [address] [place] [phone] Performed By: #### H EMDF, CMP3M, TROPN #### [address] [address] Monocytes (Bld) [#/Vol] 1.0 10*3/uL High 0.0-0.8 [place] Comment on above: Test Performed by [facility], [address] [place] [id number] Performed By: #### H EMDF, CMP3M, TROPN #### [address] [address] Monocytes/100 WBC (Bld) 12.5 % High 2.0-10.0 [place] Comment on above: Test Performed by [facility], [address] [place] [phone] Performed By: #### H EMDF, CMP3M, TROPN #### [address] [address] Platelet mean volume (Bld) [Entitic vol] 6.9 fL Low 7.4-10.4 [place], [place] Comment on above: Test Performed by [facility], [address] [place] [phone] Performed By: #### H EMDF, CMP3M, TROPN #### [address] [address] Platelets (Bld) [#/Vol] 355 10*3/uL Normal 140-440 [place] Comment on above: Test Performed by [facility], [address] [place] [id number] Performed By: #### H EMDF, CMP3M, TROPN #### [address] [address] RBC (Bld) [#/Vol] 4.97 10*6/uL Normal 4.40-5.90 [place] Comment on above: Test Performed by [facility], [address] [place] [id number] Performed By: #### H EMDF, CMP3M, TROPN #### [address] [address] WBC (Bld) [#/Vol] 7.7 10*3/uL Normal 3.6-10.7 [place] Comment on above: Performed By: #### H EMDF, CMP3M, TROPN #### [address] [address] Troponinon 11-27-2019 Troponin I.cardiac [Mass/Vol] ng/mL 0 - 0.034 ng/mL [place] Comment on above: . Test Performed by [facility], [address] [place] [phone] [place] Troponin Ion 11-27-2019 Troponin I.cardiac [Mass/Vol] ng/mL Normal 0.000-0.034 [facility] Comment on above: Result Comment: . Performed By: #### H EMDF, CMP3M, TROPN #### [address] [address] No Panel Information [facility] Vital Signs Date Time Vital Sign Value Performing Clinician Facility 09-06-2024 11:22-0500 Diastolic blood pressure 72 mm[Hg] Timothy Correa MD Work Phone: [facility] 09-06-2024 11:22-0500 Systolic blood pressure 126 mm[Hg] Timothy Correa MD Work Phone: [facility] 09-06-2024 11:17-0500 Body height 180.3 cm Timothy Correa MD Work Phone: [facility] 09-06-2024 11:17-0500 Body mass index (BMI) [Ratio] 34.61 kg/m2 Timothy Correa MD Work Phone: [facility] 09-06-2024 11:17-0500 Body temperature 98.2 [degF] Timothy Correa MD Work Phone: [facility] 09-06-2024 11:17-0500 Body weight 112.55 kg Timothy Correa MD Work Phone: [facility] 09-06-2024 11:17-0500 Heart rate 76 /min Timothy Correa MD Work Phone: [facility] 09-06-2024 11:17-0500 Respiratory rate 16 /min Timothy Correa MD Work Phone: [facility] 09-06-2024 11:17-0500 SaO2% (BldA) [Mass fraction] 97 % Timothy Correa MD Work Phone: [facility] 12-16-2023 08:17-0400 Body temperature 98.01 [degF] Timothy Correa MD Work Phone: [facility] 12-16-2023 08:17-0400 Diastolic blood pressure 75 mm[Hg] Timothy Correa MD Work Phone: [facility] 12-16-2023 08:17-0400 Heart rate 100 /min Timothy Correa MD Work Phone: [facility] 12-16-2023 08:17-0400 Respiratory rate 16 /min Timothy Correa MD Work Phone: [facility] 12-16-2023 08:17-0400 Systolic blood pressure 135 mm[Hg] Timothy Correa MD Work Phone: [facility] 10-06-2023 08:50-0500 Body temperature 98.01 [degF] Timothy [...] 88 /min Timothy Correa MD Work Phone: [facility] 04-24-2023 13:14-0400 Respiratory rate 16 /min Timothy Correa MD Work Phone: [facility] 04-24-2023 13:14-0400 SaO2% (BldA) [Mass fraction] 97 % Timothy Correa MD Work Phone: [facility] 04-24-2023 13:14-0400 Systolic blood pressure 125 mm[Hg] Timothy Correa MD Work Phone: [facility] 10-03-2022 08:26-0500 Body temperature 98.01 [degF] Timothy Correa MD Work Phone: [facility] 10-03-2022 08:26-0500 Diastolic blood pressure 61 mm[Hg] Timothy Correa MD Work Phone: [facility] 10-03-2022 08:26-0500 Heart rate 96 /min Timothy Correa MD Work Phone: [facility] 10-03-2022 08:26-0500 Respiratory rate 16 /min Timothy Correa MD Work Phone: [facility] 10-03-2022 08:26-0500 SaO2% (BldA) [Mass fraction] 96 % Timothy Correa MD Work Phone: [facility] 10-03-2022 08:26-0500 Systolic blood pressure 119 mm[Hg] Timothy Correa MD Work Phone: [facility] 09-30-2022 09:09-0500 Body temperature 97.59 [degF] Kirill Noe PT Work Phone: [facility] 09-30-2022 09:09-0500 Diastolic blood pressure 70 mm[Hg] Kirill Noe PT Work Phone: [facility] 09-30-2022 09:09-0500 Heart rate 93 /min Kirill Noe PT Work Phone: [facility] 09-30-2022 09:09-0500 SaO2% (BldA) [Mass fraction] 97 % Kirill Noe PT Work Phone: [facility] 09-30-2022 09:09-0500 Systolic blood pressure 130 mm[Hg] Kirill Noe PT Work Phone: [facility] 09-26-2022 10:19-0500 Body temperature 98.8 [degF] Kirill Noe PT Work Phone: [facility] 09-26-2022 10:19-0500 Diastolic blood pressure 80 mm[Hg] Kirill Noe PT Work Phone: [facility] 09-26-2022 10:19-0500 Heart rate 88 /min Kirill Noe PT Work Phone: [facility] 09-26-2022 10:19-0500 SaO2% (BldA) [Mass fraction] 97 % Kirill Susjunoewicz PT Work Phone: [facility] 09-26-2022 10:19-0500 Systolic blood pressure 136 mm[Hg] Kirill Suskiewicz PT Work Phone: [facility] 09-23-2022 08:59-0500 Body temperature 98.1 [degF] Kirill Suskiewicz PT Work Phone: [facility] 09-23-2022 08:59-0500 Diastolic blood pressure 70 mm[Hg] Kirill Suskiewicz PT Work Phone: [facility] 09-23-2022 08:59-0500 Heart rate 77 /min Kirill Suskiewicz PT Work Phone: [facility] 09-23-2022 08:59-0500 SaO2% (BldA) [Mass fraction] 98 % Kirill Suskiewicz PT Work Phone: [facility] 09-23-2022 08:59-0500 Systolic blood pressure 138 mm[Hg] Kirill Suskiewicz PT Work Phone: [facility] 09-20-2022 08:59-0500 Body temperature 98.49 [degF] Kirill Suskiewicz PT Work Phone: [facility] 09-20-2022 08:59-0500 Diastolic blood pressure 62 mm[Hg] Kirill Suskiewicz PT Work Phone: [facility] 09-20-2022 08:59-0500 Heart rate 88 /min Kirill Suskiewicz PT Work Phone: [facility] 09-20-2022 08:59-0500 SaO2% (BldA) [Mass fraction] 97 % Kirill Suskiewicz PT Work Phone: [facility] 09-20-2022 08:59-0500 Systolic blood pressure 130 mm[Hg] Kirill Suskiewicz PT Work Phone: [facility] 09-18-2022 09:14-0500 Body temperature 98.8 [degF] Kirill Suskiewicz PT Work Phone: [facility] 09-18-2022 09:14-0500 Diastolic blood pressure 70 mm[Hg] Kirill Suskiewicz PT Work Phone: [facility] 09-18-2022 09:14-0500 Heart rate 80 /min Kirill Suskiewicz PT Work Phone: [facility] 09-18-2022 09:14-0500 SaO2% (BldA) [Mass fraction] 98 % Kirill Suskiewicz PT Work Phone: [facility] 09-18-2022 09:14-0500 Systolic blood pressure 120 mm[Hg] Kirill Suskiewicz PT Work Phone: [facility] 09-16-2022 11:10-0500 Body temperature 98.29 [degF] Kirill Suskiewicz PT Work Phone: [facility] 09-16-2022 11:10-0500 Diastolic blood pressure 70 mm[Hg] Kirill Suskiewicz PT Work Phone: [facility] 09-16-2022 11:10-0500 Heart rate 84 /min Kirill Suskiewicz PT Work Phone: [facility] 09-16-2022 11:10-0500 SaO2% (BldA) [Mass fraction] 96 % Kirill Suskiewicz PT Work Phone: [facility] 09-16-2022 11:10-0500 Systolic blood pressure 128 mm[Hg] Kirill Suskiewicz PT Work Phone: [facility] 09-12-2022 11:03-0500 Diastolic blood pressure 64 mm[Hg] Kirill Suskiewicz PT Work Phone: [facility] 09-12-2022 11:03-0500 Heart rate 90 /min Kirill Suskiewicz PT Work Phone: [facility] 09-12-2022 11:03-0500 SaO2% (BldA) [Mass fraction] 94 % Kirill Neo PT Work Phone: [facility] 09-12-2022 11:03-0500 Systolic blood pressure 118 mm[Hg] Kirill Noe PT Work Phone: [facility] 09-12-2022 10:16-0500 Body temperature 99 [degF] Kirill Noe PT Work Phone: [facility] 08-16-2022 08:45-0500 Body height 177.8 cm Pacc 2 Work Phone: [facility] 08-16-2022 08:45-0500 Body temperature 97.5 [degF] Pacc 2 Work Phone: [facility] 08-16-2022 08:45-0500 Body weight 104.33 kg Pacc 2 Work Phone: [facility] 08-16-2022 08:45-0500 Diastolic blood pressure 93 mm[Hg] Pacc 2 Work Phone: [facility] 08-16-2022 08:45-0500 Heart rate 83 /min Pacc 2 Work Phone: [facility] 08-16-2022 08:45-0500 Respiratory rate 18 /min Pacc 2 Work Phone: [facility] 08-16-2022 08:45-0500 SaO2% (BldA) [Mass fraction] 97 % Pacc 2 Work Phone: [facility] 08-16-2022 08:45-0500 Systolic blood pressure 132 mm[Hg] Pacc 2 Work Phone: [facility] 02-22-2022 13:15-0400 Body weight 105.23 kg Chika Carpenter MD Work Phone: [facility] 11-27-2019 04:50-0400 BP Diastolic 78 mm[Hg] Tray Townsend [place] 11-27-2019 04:50-0400 BP Systolic 148 mm[Hg] Tray Gutierrez [facility] , [place] 11-27-2019 04:50-0400 Pulse (Heart Rate) 80 /min Tray Gutierrez [facility], [place] 11-27-2019 04:50-0400 Pulse Oximetry 97 % Tray Gutierrez [facility] , [place] 11-27-2019 04:50-0400 Respiratory Rate 16 /min [facility]rez [facility] [place] 11-27-2019 03:34-0400 BMI (Body Mass Index) 33.72 kg/m2 Tray Gutierrez [facility], [place] 11-27-2019 03:34-0400 Body Temperature 97.7 [degF] Tray Gut[facility]rez [facility], [place] 11-27-2019 03:34-0400 Body weight 106.59 kg Tray Gutierrez [facility] , [place] 11-27-2019 03:34-0400 Height 177.8 cm Tray Gutierrez [facility] , [place] Encounters Encounter Date Encounter Type Care Provider Facility Start: 01-11-2025 End: 01-11-2025 ambulatory Timothy Correa MD Work Phone: [facility] Comment on above: [place] Start: 01-11-2025 End: 01-11-2025 E-mail encounter from caregiver Timothy Correa MD Work Phone: [facility] Start: 10-18-2024 End: 10-18-2024 ambulatory UNKNOWN PROVIDER Facility:[facility] Start: 10-14-2024 ambulatory UNKNOWN PROVIDER Facili ty:[facility] Start: 09-15-2024 End: 09-15-2024 Refill Timothy Correa MD Work Phone: [facility] Comment on above: Refill Start: 09-10-2024 End: 09-10-2024 ambulatory Timothy Correa Facility:[facility] Start: 09-07-2024 End: 09-07-2024 Telephone encounter Shy Oliver MA [facility] Comment on above: Outside Medical Miguel rds Received Start: 09-06-2024 End: 09-06-2024 Office outpatient visit 15 minutes Timothy Correa MD Work Phone: [facility] Comment on above: LLQ abdominal mass ( Primary Dx); Body mass index (BMI) 34.0-34.9, adult Start: 09-06-2024 End: 09-06-2024 ambulatory UNKNOWN PROVIDER Facility:[facility] Start: 08-19-2024 ambulatory UNKNOWN PROVIDER Facili ty:[facility] Start: 08-16-2024 End: 08-17-2024 Refill Timothy Correa MD Work Phone: [facility] Comment on above: Refill Start: 08-16-2024 End: 10-31-2024 ambulatory TIMOTHY CORREA Facility:[facility] Start: 06-14-2024 End: 06-14-2024 ambulatory Adryan Pitt Facility:[facility] Start: 12-19-2023 Telephone encounter Hilaryizzy Mooreck [facility] Comment on above: Discuss results test /procedures; Reference 99 Start: 12-16-2023 End: 12-16-2023 Office outpatient visit 15 minutes Timothy Correa MD Work Phone: [facility] Comment on above: Left leg swelling (P rimary Dx) Start: 10-24-2023 Telephone encounter Timothy Correa MD Other Phone: [facility] Comment on above: Question about medic ation Start: 10-07-2023 Orders Only Timothy Correa MD Other Phone: [facility] Start: 10-06-2023 End: 10-06-2023 Patient encounter procedure Timothy Correa MD Other Phone: [facility] Work Phone: Start: 10-06-2023 End: 10-06-2023 Periodic preventive med est patient 40-64yrs Timothy Correa MD Other Phone: [facility] Comment on above: Annual physical exam (Primary Dx); B12 deficiency; Vitamin D deficiency; Type 2 diabetes mellitus without complication, without long-term current use of insulin (HCC); Encounter for long-term (current) use of medications; Pure hypercholesterolemia; Screening for malignant neoplasm of prostate; Essential hypertension, benign; Colon cancer screening Start: 09-24-2023 End: 09-24-2023 Emergency department patient visit TIMOTHY CORREA Facility:[facility] Start: 09-22-2023 Refill Timothy Correa MD Work Phone: [facility] Comment on above: Refill Start: 09-01-2023 Telephone encounter Timothy Coronado [facility] Start: 07-18-2023 End: 07-18-2023 ambulatory UNKNOWN PROVIDER Facility:[facility] Start: 07-18-2023 End: 07-18-2023 Subsequent hospital visit by physician Radio Sanchez Wolsey Omi Work Phone: Radiology Comment on above: Pain in left hip [M2 5.552] Start: 06-16-2023 Telephone encounter Cihka Carpenter MD Work Phone: Orthopaedics Comment on above: Appointment Start: 06-13-2023 ambulatory Chika spence MD Work Phone: Orthopaedics Comment on above: Mobic non effective Start: 06-08-2023 Letter encounter Timothy Correa MD Work Phone: [facility] Start: 05-30-2023 End: 05-30-2023 ambulatory CHIKA CARPENTER Facility:[facility] Start: 05-30-2023 End: 05-30-2023 Patient encounter procedure Chika Carpenter MD Work Phone: Orthopaedics Comment on above: Pain due to internal orthopedic prosthetic devices, implants and grafts, initial encounter (HCC) (Primary Dx) Start: 05-23-2023 ambulatory Regla Higgins PA-C Work Phone: Orthopaedics Comment on above: bone scan Start: 05-23-2023 E-mail encounter fro m caregiver Regla Higgins PA-C Work Phone: [facility] Start: 05-23-2023 End: 05-23-2023 Subsequent hospital visit by physician Mfi Toño [facility] 1 Work Phone: Molecular Imaging Comment on above: Pain due to internal orthopedic prosthetic devices, implants and grafts, initial encounter (HCC) [T84.84XA] Start: 05-23-2023 End: 05-23-2023 Subsequent hospital visit by physician [facility] Toño [facility] Work Phone: Molecular Imaging Comment on above: Pain due to internal orthopedic prosthetic devices, implants and grafts, initial encounter (HCC) [T84.84XA] Start: 05-20-2023 Telephone encounter Chika Carpenter MD Work Phone: Orthopaedics Comment on above: Appointment Start: 05-16-2023 End: 05-16-2023 ambulatory UNKNOWN PROVIDER Facility:[facility] Start: 05-16-2023 End: 05-16-2023 Office outpatient visit 15 minutes Regla Higgins PA-C Work Phone: Orthopaedics Comment on above: Pain due to internal orthopedic prosthetic devices, implants and grafts, initial encounter (HCC) (Primary Dx); S/P total knee replacement using cement, left; 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 Comment on above: Myalgia (Primary Dx) ; B12 deficiency; Vitamin D deficiency Start: 03-26-2023 Refill Timothy Correa MD Work Phone: [facility] Comment on above: Refill Start: 12-06-2022 End: 12-06-2022 ambulatory CHIKA CARPENTER Facility:[facility] Start: 12-06-2022 End: 12-06-2022 Patient encounter procedure Chika Carpenter MD Work Phone: Orthopaedics Comment on above: Aftercare following right knee joint replacement surgery (Primary Dx) Start: 11-19-2022 Telephone encounter Chika Carpenter MD Work Phone: [facility] Comment on above: Patient Question Start: 11-18-2022 ambulatory Chika spence MD Work Phone: Orthopaedics Comment on above: Return to work form Start: 11-18-2022 E-mail encounter fro m caregiver Chika Carpenter MD Work Phone: [facility] Start: 11-08-2022 Telephone encounter Chika Carpenter MD Work Phone: Orthopaedics Comment on above: Letter Start: 11-06-2022 End: 11-06-2022 ambulatory Tre Go PT, DPT Work Phone: [facility] Comment on above: Chronic pain of righ t knee (Primary Dx) Start: 10-30-2022 End: 10-30-2022 ambulatory Tre Go PT, DPT Work Phone: [facility] Comment on above: Chronic pain of righ t knee (Primary Dx) Start: 10-28-2022 End: 10-28-[address] [facility] Comment on above: Chronic pain of righ t knee (Primary Dx) Start: 10-25-2022 End: 10-25-2022 ambulatory TIMOTHY CHINO Facility:[facility] Start: 10-25-2022 End: 10-25-2022 Patient encounter procedure Chika Carpenter MD Work Phone: Orthopaedics Comment on above: Aftercare following right knee joint replacement surgery (Primary Dx) Start: 10-24-2022 End: 10-24-2022 ambulatory Tre Go PT, DPT Work Phone: [facility] Comment on above: Chronic pain of righ t knee (Primary Dx) Start: 10-21-2022 End: 10-21-2022 ambulatory UNKNOWN PROVIDER Facility:[facility] Start: 10-21-2022 End: 10-21-2022 ambulatory [facility] Comment on above: Chronic pain of righ t knee (Primary Dx) Start: 10-16-2022 End: 10-16-2022 ambulatory Tre Go PT, DPT Work Phone: [facility] Comment on above: Chronic pain of righ t knee (Primary Dx) Start: 10-15-2022 Telephone encounter Chika Carpenter MD Work Phone: Orthopaedics Comment on above: Appointment Start: 10-14-2022 End: 10-14-2022 ambulatory [facility] Comment on above: Chronic pain of righ t knee (Primary Dx) Start: 10-10-2022 End: 10-10-2022 ambulatory UNKNOWN PROVIDER Facility:[facility] Start: 10-10-2022 End: 10-10-2022 ambulatory Ava Keita PT Work Phone: [facility] Comment on above: Chronic pain of righ t knee (Primary Dx); S/P total knee arthroplasty, right Start: 10-09-2022 Orders Only Timothy Correa MD Work Phone: [facility] Start: 10-07-2022 ambulatory Chika spence MD Work Phone: Orthopaedics Comment on above: Physical therapy Start: 10-03-2022 Telephone encounter Serina Pinto [facility] Comment on above: Discuss results of e xam, other provider Start: 10-03-2022 End: 10-03-2022 Patient encounter procedure Timothy Correa MD Work Phone: [facility] Start: 10-03-2022 End: 10-03-2022 Periodic preventive med est patient 40-64yrs Timothy Correa MD Work Phone: [facility] Comment on above: Annual physical exam (Primary Dx); Vitamin D deficiency; B12 deficiency; Essential hypertension, benign; Type 2 diabetes mellitus without complication, without long-term current use of insulin (HCC); Encounter for long-term (current) use of medications; Pure hypercholesterolemia; Screening for malignant neoplasm of prostate; Need for hepatitis C screening test Start: 10-02-2022 End: 10-02-2022 ambulatory UNKNOWN PROVIDER Facility:[facility] Start: 10-02-2022 End: 10-02-2022 ambulatory Tre Go PT, DPT Work Phone: [facility] Comment on above: Pain in right hip; Chronic pain of right knee Start: 09-30-2022 End: 09-30-2022 Home visit Kirill Noe PT Work Phone: [facility] Comment on above: PT AGENCY DC W VISIT Start: 09-26-2022 End: 09-26-2022 Home visit Kirill Noe PT Work Phone: [facility] Comment on above: PT ROUTINE Start: 09-25-2022 End: 09-25-2022 ambulatory UNKNOWN PROVIDER Facility:[facility] Start: 09-25-2022 End: 09-25-2022 Patient encounter procedure Matthieu Esparza PA-C Work Phone: Orthopaedics Comment on above: S/P total knee arthr oplasty, right (Primary Dx) Start: 09-25-2022 End: 09-25-2022 Subsequent hospital visit by physician Radio Sanchez [facility] Work Phone: Radiology Comment on above: Right knee pain, uns pecified chronicity [M25.561] Start: 09-23-2022 End: 09-23-2022 Home visit Kirill Noe PT Work Phone: [facility] Comment on above: PT ROUTINE Start: 09-20-2022 End: 09-20-2022 Home visit Kirill Noe PT Work Phone: [facility] Comment on above: PT ROUTINE Start: 09-18-2022 End: 09-18-2022 Home visit Kirill Noe PT Work Phone: [facility] Comment on above: PT ROUTINE Start: 09-16-2022 End: 09-16-2022 Home visit Kirill Noe PT Work Phone: [facility] Comment on above: PT ROUTINE Start: 09-14-2022 End: 09-14-2022 Home visit Trupti Bar [employer]AST[employer]ED[employer] PROGRAM COORDINATOR Work Phone: [facility] Comment on above: BREASTFEEDING PROGRAM COORDINATOR UNMADE VISIT Start: 09-14-2022 Telephone encounter Trupti Montgomery on BREASTFEEDING PROGRAM COORDINATOR Work Phone: [facility] Comment on above: Home Care (Unmade PT visit ) Start: 09-12-2022 Telephone encounter Chika Carpenter MD Work Phone: [address] Comment on above: Patient Update Start: 09-12-2022 End: 09-12-2022 Home visit Kirill Noe PT Work Phone: [facility] Comment on above: PT SOC Start: 09-11-2022 Telephone encounter Sanaz MOBLEY S [facility] Comment on above: Home Care (Confirmat ion call) Start: 09-10-2022 Letter encounter Timothy Correa MD Work Phone: [facility] Start: 09-10-2022 End: 09-11-2022 ambulatory UNKNOWN PROVIDER Facility:[facility] Start: 09-10-2022 End: 09-10-2022 Subsequent hospital visit by physician [facility] Radiology Comment on above: Primary osteoarthrit is of right knee [M17.11] Start: 09-09-2022 Telephone encounter Chika Carpenter MD Work Phone: Orthopaedics Comment on above: Appointment Start: 09-07-2022 ambulatory UNKNOWN PROVIDER Facili ty:[facility] Start: 09-07-2022 Encounter for other preprocedural examination UNKNOWN PROVIDER [facility] Start: 09-07-2022 End: 09-07-2022 [facility] Start: 09-07-2022 End: 09-07-2022 Subsequent hospital visit by physician [facility] Radiology Comment on above: Primary osteoarthrit is of right knee [M17.11] Start: 09-04-2022 ambulatory Chika spence MD Work Phone: Orthopaedics Comment on above: Forms Start: 09-04-2022 E-mail encounter danny m caregiver Chika Carpenter MD Work Phone: [facility] Start: 09-03-2022 Telephone encounter Chika Carpenter MD Work Phone: Orthopaedics Comment on above: Forms Start: 08-26-2022 Refill Timothy Correa MD Work Phone: [facility] Comment on above: Refill Start: 08-22-2022 Patient encounter status Zechariah Carpenter MD Work Phone: Orthopaedics Start: 08-22-2022 Telephone encounter Chika Carpenter MD Work Phone: Orthopaedics Comment on above: Orders Start: 08-20-2022 Telephone encounter Chika Carpenter MD Work Phone: [address] Comment on above: Pre-Op Teaching Start: 08-16-2022 End: 08-17-2022 ambulatory UNKNOWN PROVIDER Facility:[facility] Start: 08-16-2022 Encounter for other preprocedural examination UNKNOWN PROVIDER [facility] Start: 08-16-2022 End: 08-16-2022 Admission to establishment [place] [id number] Work Phone: [facility] Start: 08-16-2022 End: 08-16-2022 ambulatory [place] [address] Work Phone: Pre Anesthesia Comment on above: [...] Anesthesia Start: 08-02-2022 ambulatory UNKNOWN PROVIDER Facili ty:[facility] Start: 08-02-2022 End: 08-02-2022 Patient encounter procedure Chika Carpenter MD Work Phone: Orthopaedics Comment on above: 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 (Primary Dx) Start: 08-02-2022 End: 08-02-2022 Subsequent hospital visit by physician [facility] Work Phone: Radiology Comment on above: Right shoulder pain, unspecified chronicity [M25.511] Start: 07-29-2022 Refill Timothy Correa MD Work Phone: [facility] Comment on above: Refill Start: 07-19-2022 [...] Orders Only Timothy Correa MD Work Phone: [facility] Start: 03-04-2022 ambulatory Chika spence MD Work [...] 11-15-2021 ambulatory Kusum barraza RN Work Phone: [facility] Care Management/Patient Access Start: 11-15-2021 Coordination of care plan Kusum Reid RN Work Phone: [facility] Care Management/Patient Access Comment on above: Care Coordination; H ealt Maintenance Outreach; Medical Record Review Start: 04-25-2020 End: 04-25-2020 Subsequent hospital visit by physician Lena Liao Work Phone: [facility] Comment on above: Arrived Start: 03-27-2020 End: 03-27-2020 Subsequent hospital visit by physician Awilda Vivas Work Phone: [employer] Comment on above: Acute pain of right [...] above: Order Comment: The B josé manuel [place] Access DxI Total???Prostate Specific Antigen???(PSA) method is [...] C H8, HEPATIC, HDL, PSA ####[facility] [id number] [place], [address] Start: 10-06-2023 3 comp foot exam completed [...] Comment: Speci men Type: BLOOD SPECIMENOrdering Facility: [facility] Address: [place] [address] Performed By: #### T [id number] ####[facility] [id number] [place] [address] [place] Start: 08-02-2022 Arthrocentesis aspir [...] RSV Vaccine (1 - 1-dose 75+ series) [facility] Start: 2034 RSV vaccine (adult) (1 - 1-dose 75+ series) RSV vaccine (adult) (1 - 1-dose 75+ series) [facility] Start: 10-02-2026 PROSTATE CANCER SCREENING DISCUSSION PROSTATE CANCER SCREENING DISCUSSION [facility] Start: 10-02-2026 Prostate specific antigen measurement Prostate Cancer Screening Discussion [facility] Start: 12-07-2025 DTaP/Tdap/Td vaccine (3 - Td) DTaP/Tdap/Td vaccine (3 - Td) [place], [place] Start: 12-07-2025 Tetanus vaccination [facility] Start: 12-07-2025 Urine microalbumin profile DTaP,Tdap,Td Vaccine (3 - Td or Tdap) [facility] Start: 10-18-2025 Diabetic foot examination Foot [...] procedure 10/07/2024 8:00 AM EST Office Visit [facility] [address] [place] [address] Timothy Correa MD [address] [place] [address] [facility] Start: 10-06-2024 Creatinine measurement Basic Metabolic Panel [facility] Start: 10-06-2024 Diabetic foot examination Foot Exam [facility] Start: 10-06-2024 Glaucoma screening Eye Exam [facility] Start: 10-06-2024 Lipid panel Lipid Profile [facility] Start: 10-06-2024 Prostate specific antigen measurement Pro[facility] Cancer Screening (shared decision making) [facility] Start: 10-06-2024 Urine screening for protein [facility] Start: 09-24-2024 Creatinine measurement Basic Metabolic Panel [facility] Start: 08-19-2024 End: 08-19-2024 Professional / ancillary services management 08/19/2024 2:00 PM EST Ancillary Procedure [facility] [address] [place] [address] [facility] [address] Start: 08-12-2024 Welcome to Medicare Visit (G0402) Welcome to Medicare Visit (G0402) [facility] Start: 04-11-2024 Covid-19 Vaccine ( season) Covid-19 Vaccine ( season) [facility] Start: 04-11-2024 Covid-19 Vaccine ( season) Covid-19 Vaccine ( season) [facility] Start: 04-11-2024 Influenza vaccination Influenza Vaccine (#1) [facility] Start: 04-05-2024 Hemoglobin A1c measurement Hemoglobin A1C [facility] Start: 2024 Abdominal aortic aneurysm screening Abdominal Aortic Aneurysm Imaging [facility] Start: 2024 Advance Directive Discussion Advance Directive Discussion [facility] Start: 2024 Pneumococcal vaccination Pneumococcal Vaccine(s) (2 of 2 - PPSV23) [facility] Start: 10-06-2023 End: 10-06-2023 Patient encounter procedure 10/06/2023 8:00 AM EST Office Visit [facility] [address] [place] [address] Timothy Correa MD [address] [place] [address] [facility] Start: 10-03-2023 Diabetic foot examination Foot Exam [facility] Start: 10-03-2023 Hepatitis B surface antibody level LDL CHOLESTEROL [facility] Start: 10-03-2023 Lipid panel Lipid Profile [facility] Start: 10-03-2023 Urine screening for protein Microalbumin [facility] Start: 09-18-2023 BP CONTROLLED (<130/80) BP CONTROLLED (<130/80) [facility] Start: 09-16-2023 BP CONTROLLED (<130/80) BP CONTROLLED (<130/80) [facility] Start: 09-12-2023 BP CONTROLLED (<130/80) BP CONTROLLED (<130/80) [facility] Start: 09-11-2023 Basic metabolic 2000 panel - Serum or Plasma Basic Metabolic Panel [facility] Start: 09-11-2023 Creatinine measurement Basic Metabolic Panel [facility] Start: 09-08-2023 End: 09-08-2023 Patient encounter procedure 09/08/2023 8:20 AM EST Office Visit [facility] [address] [place] [address] Timothy Correa MD [address] [place] [address] [facility] Start: 08-16-2023 Basic metabolic 2000 panel - Serum or Plasma Basic Metabolic Panel [facility] Start: 07-18-2023 PROSTATE CANCER SCREENING DISCUSSION PROSTATE CANCER SCREENING DISCUSSION [facility] Start: 05-11-2023 Influenza vaccination Influenza Vaccine (#1) [facility] Start: 04-11-2023 Covid-19 Vaccine () Covid-19 Vaccine () [facility] Start: 04-11-2023 Influenza vaccination [facility] Start: 02-13-2023 Hemoglobin A1c measurement [facility] Start: 02-13-2023 Hemoglobin A1c/Hemoglobin.total in Blood HBA1C [facility] Start: 11-07-2022 Diabetic retinal eye exam [facility]am [facility] Start: 11-07-2022 Glaucoma screening Eye [facility]am [facility] Start: 10-03-2022 End: 10-03-2022 Patient encounter procedure 10/03/2022 Office Visit [facility] Timothy Correa MD [address] [place] [address] [facility] Start: 10-02-2022 Basic metabolic 2000 panel - Serum or Plasma Basic Metabolic Panel [facility] Start: 10-02-2022 Lipid panel Lipid Profile [facility] Start: 10-02-2022 Urine screening for protein [facility]albumin [facility] Start: 08-29-2022 End: 08-29-2022 Patient encounter procedure 08/29/2022 Office Visit [facility] Timothy Correa MD [address] [place] [address] [facility] Start: 08-11-2022 DEPRESSION ASSESSMENT DEPRESSION ASSESSMENT [facility] Start: 06-28-2022 Diabetic foot examination Foot [facility] Start: 05-11-2022 Influenza vaccination Influenza Vaccine (#1) [facility] Start: 04-11-2022 Influenza vaccination INFLUENZA (#1) [facility] Start: 04-01-2022 Hemoglobin A1c measurement Hemoglobin A1C [facility] Start: 01-23-2022 Diabetic retinal eye exam [facility] Start: 12-11-2021 COVID-19 Vaccine (3 - Booster for Moderna series) COVID-19 Vaccine (3 - Booster for Moderna series) [facility] Start: 09-07-2021 COVID-19 VACCINE (3 - Booster for Moderna series) COVID-19 VACCINE (3 - Booster for Moderna series) [facility] Start: 09-07-2021 COVID-19 Vaccine (3 - Moderna series) COVID-19 Vaccine (3 - Moderna series) [facility] Start: 08-11-2021 DEPRESSION ASSESSMENT DEPRESSION ASSESSMENT [facility] Start: 11-26-2020 Creatinine measurement Creatinine monitoring [facility], [place] Start: 11-26-2020 Potassium monitoring Potassium monitoring [place], [place] Start: 08-09-2020 [object Object] Diabetic foot exam [place] Start: 08-09-2020 A1C test (Diabetic or Prediabetic) A1C test (Diabetic or Prediabetic) [place] Start: 08-09-2020 Creatinine monitoring Creatinine monitoring [place], [place] Start: 08-09-2020 Diabetic foot examination Diabetic foot exam [place] Start: 08-09-2020 Diabetic microalbuminuria test Diabetic microalbuminuria test [place] Start: 08-09-2020 HbA1c (Bld) [Mass fraction] A1C test (Diabetic or Prediabetic) [place] Start: 08-09-2020 Lipid panel Lipid screen [place] Start: 08-09-2020 Lipid screen Lipid [place] Start: 08-09-2020 Potassium monitoring Potassium monitoring [place] Start: 04-11-2020 Influenza vaccination [place] Start: 07-18-2019 Diabetic retinal exam Diabetic retinal exam [place], [place] Start: 2019 Hepatitis B (HBV) Vaccine (optional start 60+ years) Hepatitis B (HBV) Vaccine (optional start 60+ years) [facility] Start: 2019 Hepatitis B Vaccine (1 of 3 - Risk 3-dose series) Hepatitis B Vaccine (1 of 3 - Risk 3-dose series) [facility] Start: 2019 RSV Vaccine (1 - 1-dose 60+ series) RSV Vaccine (1 - 1-dose 60+ series) [facility] Start: 2019 RSV vaccine (adult) (1 - Risk 60-74 years 1-dose series) RSV vaccine (adult) (1 - Risk 60-74 years 1-dose series) [facility] Start: 2019 RSV vaccine (optional 60+ years) RSV vaccine (optional 60+ years) [facility] Start: 01-16-2019 Hemoglobin A1c/Hemoglobin.total in Blood HBA1C [facility] Start: 03-22-2018 Pneumococcal vaccination [facility] Start: 03-22-2018 Pneumococcal Vaccine: 65+ (2 of 2 - PCV) Pneumococcal Vaccine: 65+ (2 of 2 - PCV) [facility] Start: 2009 Colon cancer screen colonoscopy Colon cancer screen colonoscopy [place], [place] Start: 2009 Measurement of occult blood in single stool specimen FIT [facility] Start: 2009 Screening for malignant neoplasm of colon [facility] Start: 2009 Shingles Vaccine (1 of 2) Shingles Vaccine (1 of 2) [place] Start: 2009 SHINGRIX VACCINE (1 of 2) SHINGRIX VACCINE (1 of 2) [facility] Start: 2009 Varicella-zoster vaccine (product) Shingles (RZV) Vaccine (1 of 2) [facility] Start: 2004 COLOGUARD (FIT-DNA) COLOGUARD (FIT-DNA) [facility] Start: 2004 Colonoscopy COLONOSCOPY [facility] Start: 2004 COLORECTAL CANCER SCREENING COLORECTAL CANCER SCREENING [facility] Start: [address] COLONOGRAPHY [facility] Start: 2004 FECAL OCCULT BLOOD FECAL OCCULT BLOOD [facility] Start: 2004 Screening for malignant neoplasm of colon [facility] Start: 2004 SIGMOIDOSCOPY SIGMOIDOSCOPY [facility] Start: 1978 Hepatitis A (HAV) Vaccine (optional start 19+ years) Hepatitis A (HAV) Vaccine (optional start 19+ years) [facility] Start: 1978 Urine microalbumin profile [facility] Start: 1977 ANNUAL PCP TEAM CHRONIC DISEASE VISIT ANNUAL PCP TEAM CHRONIC DISEASE VISIT [facility] Start: 1977 Anxiety Screening Anxiety Screening [facility] Start: 1977 BP CONTROLLED (<130/80) BP CONTROLLED (<130/80) [facility] Start: 1977 Depression Screening Depression Screening [facility] Start: 1977 Hepatitis B surface antibody level LDL CHOLESTEROL [facility] Start: 1977 Hepatitis C screening Hepatitis C Antibody [facility] Start: 1977 HEPATITIS C SCREENING HEPATITIS C SCREENING [facility] Start: 1977 HIV SCREENING HIV SCREENING [facility] Start: 1977 HIV screening HIV Screening [facility] Start: 1971 Adult depression screening assessment DEPRESSION SCREENING [facility] Start: 1969 3 comp foot exam completed DIABETIC FOOT EXAM [facility] Start: 1969 Diabetic foot examination Diabetic Foot Exam [facility] Start: 1969 Glaucoma screening Dilated Retinal Exam [facility] Start: 1969 Hepatitis B screening URINE ALBUMIN:CREATININE RATIO [facility] Start: 1969 Hepatitis C antibody, confirmatory test DILATED RETINAL EXAM [facility] Start: 1965 PNEUMOCOCCAL (1 - PCV) PNEUMOCOCCAL (1 - PCV) [facility] Start: 1965 Pneumococcal vaccination Pneumococcal Vaccine (1 - PCV) [facility] Start: 1959 Abdominal aortic aneurysm screening Abdominal Aortic Aneurysm Screening [facility] Start: 1959 Screening for malignant neoplasm of colon Colonoscopy [facility] 25 hydroxy includes fractions if performed VITAMIN D, 25-HYDROXY Lab Routine Vitamin D deficiency Ordered: 10/03/2022 [facility] Comment on above: Ordered: 10/03/2022 25 hydroxy includes fractions if performed VITAMIN D, 25-HYDROXY Lab Routine Vitamin D deficiency Ordered: 10/06/2023 [employer] Work Phone: Comment on above: Ordered: 10/06/2023 Assay of gammaglobul in iga igd igg igm each MICROALBUMIN, URINE Lab Routine Type 2 diabetes mellitus without complication, without long-term current use of insulin (HCC) Ordered: 10/03/2022 [employer] Work Phone: Comment on above: Ordered: 10/03/2022 Assay of gammaglobul in iga igd igg igm each MICROALBUMIN, URINE Lab Routine Type 2 diabetes mellitus without complication, without long-term current use of insulin (HCC) Ordered: 10/06/2023 [employer] Work Phone: Comment on above: Ordered: 10/06/2023 Assay of thyroid stimulating hormone tsh TSH Lab Routine Pure hypercholesterolemia Ordered: 10/03/2022 [facility] Comment on above: Ordered: 10/03/2022 Assay of thyroid stimulating hormone tsh TSH Lab Routine Pure hypercholesterolemia Ordered: 10/06/2023 [employer] Work Phone: Comment on above: Ordered: 10/06/2023 Basic metabolic 2000 panel - Serum or Plasma BASIC METABOLIC PANEL Lab Routine Encounter for long-term (current) use of medications Ordered: 10/06/2023 [employer] Work Phone: Comment on above: Ordered: 10/06/2023 Blood count complete auto&auto difrntl wbc CBC WITH DIFFERENTIAL Lab Only Routine Encounter for long-term (current) use of medications Ordered: 10/06/2023 [employer] Work Phone: Comment on above: Ordered: 10/06/2023 Blood occult fecal h gb deter ia qual feces 1-3 FECAL IMMUNOCHEMICAL TEST (FIT) Lab Routine Colon cancer screening Ordered: 04/18/2022 [employer] Work Phone: Comment on above: Ordered: 04/18/2022 End: 06-14-2024 Bone &/joint imaging 3 phase study NM BONE 3 PHASE Radiology Routine Pain due to internal orthopedic prosthetic devices, implants and grafts, initial encounter ([facility]) S/P total knee replacement using cement, left 1 Occurrences starting 05/16/2023 until 06/14/2024 [facility] Work Phone: Comment on above: 1 Occurrences starting 05/16/2023 until 06/14/2024 CBC W Auto Different ial panel - Blood COMPLETE BLOOD COUNT W/DIFF Lab Routine Encounter for long-term (current) use of medications Ordered: 10/06/2023 [employer] Work Phone: Comment on above: Ordered: 10/06/2023 End: 09-07-2022 Ct lower extremity w/o contrast material [facility] Work Phone: Comment on above: 1 Occurrences starting 09/07/2022 until 09/07/2022 End: 10-09-2023 Ct lower extremity w/o contrast material CT KNEE WO IVCON RT Radiology Routine Primary osteoarthritis of right knee 1 Occurrences starting 09/09/2022 until 10/09/2023 [facility] Work Phone: Comment on above: 1 Occurrences starting 09/09/2022 until 10/09/2023 Ct lower extremity w /o contrast material CT KNEE WO IVCON RT Radiology Routine Primary osteoarthritis of right knee 09/10/2022 6:57 AM EST [facility] Work Phone: End: 04-25-2020 CT LUMBAR SPINE WO CONTRAST CT LUMBAR SPINE WO CONTRAST Imaging Routine Once for 1 Occurrences starting 04/25/2020 until 04/25/2020 [facility] Comment on above: Once for 1 Occurrences starting 04/25/20 20 until 04/25/2020 CT LUMBAR SPINE WO CONTRAST CT LUMBAR SPINE WO CONTRAST Imaging Routine 04/25/2020 9:04 AM EDT [facility] Cyanocobalamin vitam in b-12 VITAMIN B12 (CYANOCOBALAMIN) Lab Routine B12 deficiency Ordered: 10/03/2022 [facility] Comment on above: Ordered: 10/03/2022 Cyanocobalamin vitam in b-12 VITAMIN B12 (CYANOCOBALAMIN) Lab Routine B12 deficiency Ordered: 10/06/2023 [employer] Work Phone: Comment on above: Ordered: 10/06/2023 Diabetes tracking panel HEMOGLOB IN A1C Lab Routine Type 2 diabetes mellitus without complication, without long-term current use of insulin (HCC) Ordered: 10/06/2023 [employer] Work Phone: Comment on above: Ordered: 10/06/2023 EKG 12 Lead EKG 12 Lead ECG STAT 11/27/2019 3:34 AM EDT [facility] Hepatic function panel HEPATIC F UNCTION PANEL Lab Routine Encounter for long-term (current) use of medications Ordered: 10/06/2023 [employer] Work Phone: Comment on above: Ordered: 10/06/2023 Hepatitis C virus Ab [Units/volume] in Serum by Immunoassay HEPATITIS C ANTIBODY Lab Routine Need for hepatitis C screening test Ordered: 10/03/2022 [facility] Comment on above: Ordered: 10/03/2022 Initiate Oxygen Ther apy Protocol Initiate Oxygen Therapy Protocol Respiratory Care Routine Daily until discontinued starting 11/27/2019, 2 completed [facility] Comment on above: Daily until discontinued starting 2019, 2 completed LAB COLOGUARD COLON CANCER SCREEN LAB COLOGUARD COLON CANCER SCREEN Lab Routine Colon cancer screening Ordered: 10/06/2023 [employer] Work Phone: Comment on above: Ordered: 10/06/2023 Lipid 1996 panel - S [place] or Plasma FULL LIPID PROFILE Lab Routine Pure hypercholesterolemia Ordered: 10/03/2022 [facility] Comment on above: Ordered: 10/03/2022 Lipid 1996 panel - S [place] or Plasma FULL LIPID PROFILE Lab Routine Pure hypercholesterolemia Ordered: 10/06/2023 [employer] Work Phone: Comment on above: Ordered: 10/06/2023 End: 03-22-2020 MRI LUMBAR SPINE W WO CONTRAST MRI LUMBAR SPINE W WO CONTRAST Imaging Routine Once for 1 Occurrences starting 03/22/2020 until 03/22/2020 [place] Comment on above: Once for 1 Occurrences starting 03/22/20 20 until 03/22/2020 MRI LUMBAR SPINE W W O CONTRAST MRI LUMBAR SPINE W WO CONTRAST Imaging Routine 03/22/2020 12:52 PM EDT [place] Prostate specific Ag panel - Serum or Plasma PROSTATE SPECIFIC ANTIGEN (PSA) Lab Routine Screening for malignant neoplasm of prostate Ordered: 10/06/2023 [employer] Work Phone: Comment on above: Ordered: 10/06/2023 End: 03-03-2023 XR KNEE GENERAL 4V AP BOTH/PA BOTH/LAT/MERC BILATERAL XR KNEE GENERAL 4V AP BOTH/PA BOTH/LAT/MERC BILATERAL Radiology Routine Pain 1 Occurrences starting 02/01/2022 until 03/03/2023 [facility] Work Phone: Comment on above: 1 Occurrences starting 02/01/2022 until 03/03/2023 End: 06-12-2024 XR KNEE POST 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 XR KNEE POST 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 Radiology Routine Status post total left knee replacement 1 Occurrences starting 05/14/2023 until 06/12/2024 [facility] Work Phone: Comment on above: 1 Occurrences starting 05/14/2023 until 06/12/2024 [facility] Immunizations Immunization Date Immunization Notes Care Provider Fa [facility] 10-18-2024 Pneumococcal conjuga te 20 valent (PCV20), polysaccharide [id number] conjugate, adjuvant, PF (BNT=238) Timothy Correa MD Work Phone: [facility] 10-14-2024 Hemoglobin A1C Timothy Correa MD Work Phone: [facility] 10-06-2023 Hemoglobin A1C Timothy Correa MD Other Phone: [facility] Work Phone: 08-16-2022 Hemoglobin A1C Timothy Correa MD Work Phone: [facility] 08-10-2022 influenza, high dose seasonal, preservative-free [facility] 08-10-2022 influenza virus vacc ine, unspecified formulation Timothy Correa MD Work Phone: [facility] 10-02-2021 Hemoglobin A1C Kusum Reid RN Work Phone: [facility] 07-13-2021 Moderna Monovalent ( 12+ yrs) COVID-19 vaccine, mRNA, spike protein, LNP, PF, 100 mcg/0.5 mL (NQR=615) Timothy Correa MD Work Phone: [facility] 06-06-2021 influenza, injectabl e, quadrivalent, preservative free Kusum Reid RN Work Phone: [facility] 06-06-2021 influenza virus vacc ine, unspecified formulation Timothy Correa MD Work Phone: [facility] 06-05-2021 Moderna Monovalent ( 12+ yrs) COVID-19 vaccine, mRNA, spike protein, LNP, PF, 100 mcg/0.5 mL (DCH=303) Timothy Correa MD Work Phone: [facility] 03-22-2017 pneumococcal polysaccharide vaccine, 23 valent Tray Townsend [facility] SH[facility]ILA 12-08-2015 tetanus toxoid, redu froilan diphtheria toxoid, and acellular pertussis vaccine, adsorbed Tray Townsend [facility] 08-30-1999 tetanus toxoid, redu froilan diphtheria toxoid, and acellular pertussis vaccine, adsorbed Tray Townsend [facility], [facility] zoster vac recomb adjuvanted (SHINGRIX) 50 MCG/0.5ML SUSR injection Timothy Correa MD Work Phone: [facility] Payers Date Payer Category Payer Medicare FFS MEDICARE [id number] 2024 Medicare [id number] 2024 Self-pay 2014 Unknown BCBS [place] - [place] P PO xxxxxxxxxxxx 2014-Present [address] [place] [address] xxxxxxxxxxxx [id number] 2004 Blue Cross Blue Shield ANTH - BLUE CROSS [id number] 2004 Unknown [id number] 2004 Unknown ANTHEM BLUE CARD PPO OOS [id number] 2004-Present [phone] [address] [place] [address] PPO [id number] 2004 Unknown [id number] 1959 Unknown [id number] 1959 Unknown [id number] 732 1959 Unknown [id number] 732 1959 Unknown [id number] 732 1959 Unknown [id number] 732 Unknown [id number] 462 Unknown [id number] 462 Social History Date Type Detail Facility Start: 11-09-2019 End: 04-24-2023 Tobacco smoking status NHIS Former smoker [place] Start: 08-09-2019 History SDOH Financial 5 [place] Start: 08-09-2019 End: 12-22-2019 History SDOH Food Worry 1 [place] Start: 08-09-2019 End: 12-22-2019 History SDOH Transport Med 2 [place] Start: 1960 Sex Assigned At Not on file M [place], [place] Exposure to SARS-CoV -2 (event) Unable to assess [place] Start: 03-27-2020 End: 04-24-2023 [facility] 2020 End: 03-27-2020 Alcohol intake Current drinker of alcohol (finding) [place] Start: 03-27-2020 History SDOH Social Connections Phone 3 [place] Start: 03-27-2020 History SDOH Physica l Activity DPW 0 [place] Start: 02-12-2022 End: 10-03-2022 Exposure to SARS-CoV-2 (event) Not sure [place] Start: 07-15-1983 End: 07-15-2013 History of tobacco use Current smoker [facility] Start: 07-15-1983 End: 07-15-2013 History of tobacco use Cigarette Smoker [facility] Start: 07-15-2014 End: 08-12-2024 Cigarettes smoked current (pack per day) - Reported 0.1 [facility] Start: 07-18-2021 End: 06-21-2022 Alcohol intake Ex-drinker (finding) [facility] Start: 10-25-2020 History SDOH Alcohol Comment not weekly [facility] Start: 10-25-2022 End: 08-12-2024 Gender identity Not on file [facility] National Score (1-10 0), lower number is lower risk 41 [facility] Are you now , , , , never or living with a partner? [facility] Start: 05-23-2020 Sex Male (finding) [facility] Medical Equipment Procedure Code Equipment Code Equipment Origin al Text Equipment Identifier Dates Renaldo Bn Smplx Hv Fd - [id number] Start: 08-09-2014 Comment on above: Description: Farhat Royal HV Full Dose US Comp Fem 5 Lt Kn Cr Renaldo Trthln - [id number] Start: 08-09-2014 Ins Tib 6 11mm X 3 Cs Trthln - [id number] Start: 08-09-2014 Comp Pat 10mm 35 mm Asym Trthln - [id number] Start: 08-09-2014 Baseplt Tib Trth ln 6 Prim - [id number] Start: 08-09-2014 Component Triathlon 5 Pa Femoral Cruciate Retain Bead Knee Right - [id number] Start: 09-10-2022 Component Tritanium 35mm Metal 10mm Patellar Asymmetric Knee - [id number] Start: 09-10-2022 Insert Triathlon 6 9mm Tibial Bearing Condylar Stabilize Sterile Knee - [id number] Start: 09-10-2022 Baseplate Triathlon 6 Tritanium [id number] Tibial 4 Cruciform Peg Keel Knee - [id number] Start: 09-10-2022 Goals Date Patient Goal [...] on: 01/17/2025 09:15 PM Modules accepted: Orders [facility] 01-17-2025 Miscellaneous Notes Addended by: TIMOTHY CORREA on: 01/17/2025 09:15 PM Modules accepted: Orders documented in this encounter [facility] 09-08-2024 Telephone encounter Note Situation: calling asking for images of CT to be forwarded to their office. Background: na Assessment: na Recommendation: provided with number to medical records and call was transferred [phone] [facility] 09-08-2024 Miscellaneous Notes Situation: calling asking for images of CT to be forwarded to their office. Background: na Assessment: na Recommendation: provided with number to medical records and call was transferred [phone] here at office window, Requesting that previous [address] report be faxed to [facility] with referral order. Records printed and faxed as requested. Nothing further needed at this time documented in this encounter [facility] 09-07-2024 Note here at office window, Requesting that previous [address] report be faxed to [facility] with referral order. Records printed and faxed as requested. Nothing further needed at this time [facility] 09-07-2024 Telephone encounter Note here at office window, Requesting that previous [address] report be faxed to [facility] with referral order. Records printed and faxed as requested. Nothing further needed at this time [facility] 09-06-2024 History of Present illness Narrative Images [...] EXTERNAL SERVICE REQUEST FOR CARE OUTSIDE THE [facility] Patient was identified by name and date of . Jeanie Perkins MA documented in this encounter [facility] 12-25-2023 Telephone encounter Note Pt's stopped in. Pt already sees Debbie Miranda at [facility] next week. Pt will discuss this with her. If pt needs anything else, they will let us know. [facility] 12-25-2023 Miscellaneous Notes Pt's stopped in. Pt already sees Debbie Miranda at [facility] next week. Pt will discuss this with her. If pt needs anything else, they will let us know. Attempted to contact patient. Left voicemail message on listed contact # to call [facility] at [phone]. Asked patient to reference #99 when calling back to our office. Ok to relay message below. See provider's note and assist pt with scheduling with PM&R delilah and also put on wait list if there is nothing soon. Pt's stopped in. Wants to know what next steps are. [facility] US was negative for DVT. Pt is in pain. Please advise. documented in this encounter [facility] 12-23-2023 Telephone encounter Note Attempted to contact patient. Left voicemail message on listed contact # to call [facility] at [phone]. Asked patient to reference #99 when calling back to our office. Ok to relay message below. See provider's note and assist pt with scheduling with PM&R delilah and also put on wait list if there is nothing soon. [facility] 12-19-2023 Telephone encounter Note Pt's stopped in. Wants to know what next steps are. They will look on MyChart for results of labs. US was negative for DVT. Pt is in pain. Please advise. [facility] 12-16-2023 History of Present illness [...] + DOPPLER; Future documented in this encounter [facility] 10-06-2023 History of Present illness [...] CANCER SCREEN documented in this encounter [facility] Work Phone: 09-01-2023 Telephone encounter Note [facility] has received a completed Stop-Bang Questionnaire related to WILIAM, lab work and EKG results from [facility]. Nothing for Dr. Correa to complete/sign. Scanned into Media and Dr. Correa notified on 09/01/2023. [facility] 09-01-2023 Miscellaneous Notes [facility] has received a completed Stop-Bang Questionnaire related to WILIAM, lab work and EKG results from [facility]. Nothing for Dr. Correa to complete/sign. Scanned into Media and Dr. Correa notified on 09/01/2023. documented in this encounter [facility] 08-14-2023 Note HNO ID: [id number] Author: CHIKA CARPENTER MD Service: ? Author [...] in left hip .LEFT HIP PAIN (accession [id number]), RIGHT KNEE PAIN (accession [id number]) TECHNIQUE: XR AP PELVIS, CROSSTABLE LATERAL LEFT [...] is evident. Impression: IMPRESSION: No acute abnormality Glycerine Plant Operator: ROBERTS CHAPEL Transcribe Date/Time: Jul 20 2023 1:19P Dictated [...] in left hip .LEFT HIP PAIN (accession [id number]), RIGHT KNEE PAIN (accession [id number]) TECHNIQUE: XR AP PELVIS, CROSSTABLE LATERAL LEFT [...] is evident. Impression: IMPRESSION: No acute abnormality [employer] Operator: ROBERTS CHAPEL Transcribe Date/Time: Jul 20 2023 1:19P Dictated [...] Chika Carpenter MD Electronic Signature [facility] 07-18-2023 Note HNO ID: [id number] Author: Samantha Aguirre Tech Service: ? Author Type: Cost Accounting Analyst Type: Progress Notes Filed: 07/18/2023 8:27 AM [...] Emely Cavanaugh July 18, 2023 8:26 AM [facility] 07-18-2023 History of Present illness Narrative [...] 2023 8:26 AM documented in this encounter [facility] 06-27-2023 Note HNO ID: [id number] Author: Chika Carpenter MD Service: ? Author [...] Chika Carpenter M.D. Department of Orthopaedic Surgery [place] 06-27-2023 History of Present illness Narrative REASON [...] Chika Carpenter M.D. Department of Orthopaedic Surgery [facility] documented in this encounter [facility] 06-16-2023 Miscellaneous Notes Please reschedule Roberto' appt to 06/20/23 at 11am and leave a message on the home phone to let them know per spouse Lien. documented in this encounter [facility] 05-23-2023 Note HNO ID: [id number] Author: Indio Samuel, [place] Service: Nuclear Medicine [...] 08:15 PATIENT DISCHARGED TO: Ambulatory patient, left AL department area. A Diagnostic radioactive procedure has taken place, with no further precautions necessary other than routine body substance precautions. More information regarding radiation safety can be found using this link: [email or web address] tection [email or web address]%20Nuclear%20Medi cine%20Procedures.[email or web address] SIGNATURE: GERMAINE Gonzalez PATIENT NAME: Roberto Osborn DATE: May 23, 2023 TIME: 8:48 AM PAGER/CONTACT #: [facility] 05-23-2023 History of Present illness Narrative [...] DIAGNOSTIC CT PERFORMED: No IV SITE: Ambulatory: AL only - direct IV injection in the [...] safety can be found using this link: [email or web address] [email or web address]-%20Diagnostic%20Nuclear %20Medicine%[email or web address].[email or web address] SIGNATURE: GERMAINE Gonzalez PATIENT NAME: Roberto Osborn SR DATE: May 23, 2023 TIME: 8:48 AM PAGER/CONTACT #: documented in this encounter [facility] 05-20-2023 Miscellaneous Notes Scheduled and called Lien, ailyn voicemail message with appointment information. Please leave a voice mail at [phone] for spouse Lien for two appts for Roberto. He needs a bone scan result appt on 05/30. Please schedule in the am hold slot. Also the 08/06 appt needs rescheduled to 08/01 in the earliest am. Just let her know on the message what was done. documented in this encounter [facility] 05-16-2023 Note HNO ID: [id number] Author: Regla Higgins PA-C Service: ? Author Type: Physician Pull Up Hand Type: Progress Notes Filed: 05/16/2023 8:05 AM [...] instructed (more content not included)... [facility] 05-16-2023 Note HNO ID: [id number] Author: Samantha Aguirre Tech Service: ? Author Type: Cost Accounting Analyst Type: Progress Notes Filed: 05/16/2023 7:22 AM [...] PERIPHERAL IV DATA: Not applicable SIGNED BY: mEely Cavanaugh May 16, 2023 7:21 AM [facility] 05-16-2023 History of Present [...] Regla Higgins PA-C documented in this encounter [facility] 05-16-2023 History of Present illness Narrative [...] 2023 7:21 AM documented in this encounter [facility] 04-24-2023 History of Present illness Narrative [...] protocol implemented: No documented in this encounter [facility] 01-27-2023 Note HNO ID: [id number] Author: Tre Go PT, DPT Service: ? Author Type: Physical Therapist Type: Progress Notes Filed: 01/27/2023 1:03 PM Note Text: 01/27/2023 [facility] PHYSICAL THERAPY DISCONTINUANCE [...] Achieved -Normal Gait---Partially Achieved -Reciprocal Stair Negotiation---Achieved [place] in home exercise program.---Achieved Patient will decrease [...] additional follow-up appointments. Tre Go, PT, DPT [facility] 12-17-2022 Note HNO ID: [id number] Author: Chika Carpenter MD Service: ? Author [...] Chika Carpenter MD Electronic Signature [facility] 12-16-2022 History of Present illness Narrative DR. [...] MD Electronic Signature documented in this encounter [facility] 11-21-2022 Miscellaneous Notes This was done on 11/20/22. Keyla from patient's [employer] is requesting a copy of the return to work letter with detailed restrictions. I told her we sent something on 11/15, but that was just for his disability. They are asking for that same letter to be faxed to [phone]. Thank you! documented in this encounter [facility] 11-08-2022 Miscellaneous Notes Letter has been faxed and received. Regla Higgins PA-C Patient asking if he could have a return to work letter for light duty to begin on 11/18/22. If you agree, it would need to be faxed to [phone] ('s work), no cover sheet needed. documented in this encounter [facility] 11-06-2022 Note HNO ID: [id number] Author: Tre Go PT, DPT Service: ? [...] Minutes (timed/untimed): 40 Tre Go PT, DPT [facility] 11-06-2022 History of Present illness Narrative Episode Visit Count: 9 Therapist That Will Accept/Oversee The Plan Of Care: rTe Go Start of Care Date: 10/02/22 Onset [...] Go PT, DPT documented in this encounter [facility] 10-30-2022 Note HNO ID: [id number] Author: Tre Go, PT, DPT Service: ? [...] Achieved -Normal Gait---Partially Achieved -Reciprocal Stair Negotiation---Achieved [place] in home exercise program.---Achieved Patient will decrease pain rating by 2 points to meet minimal clinical important difference for numeric pain rating scale.---Achieved Patient Goals: decrease pain, return to work, improve performance with mobility tasks.---partially Achieved Planned Interventions, Frequency, and Duration: 1x/week, 4 weeks Total Number of Visits Planned: 4 Patient to be seen for Therapeutic exercise (84411), Neuromuscular re-education (01423), Manual therapy (71622), Therapeutic activities (16357), Self-fpc management (25548), Gait Training (60985) SUBJECTIVE: Patient Reason for Visit: Pt may [...] Minutes (timed/untimed): 42 Tre Go, PT, DPT [facility] 10-30-2022 History of Present illness Narrative [...] Achieved -Normal Gait---Partially Achieved -Reciprocal Stair Negotiation---Achieved [place] in home exercise program.---Achieved Patient will decrease pain rating by 2 points to meet minimal clinical important difference for numeric pain rating scale.---Achieved Patient Goals: decrease pain, return to work, improve performance with mobility tasks.---partially Achieved Planned Interventions, Frequency, and Duration: 1x/week, 4 weeks Total Number of Visits Planned: 4 Patient to be seen for Therapeutic exercise (74851), Neuromuscular re-education (47343), Manual therapy (72210), Therapeutic activities (80633), Self-fpc management (98846), Gait Training (64884) SUBJECTIVE: Patient Reason for Visit: Pt may [...] Go PT, DPT documented in this encounter [facility] 10-28-2022 Note HNO ID: [id number] Author: Toy Coreas PTA Service: ? Author Type: Record Producer Type: Progress Notes Filed: 10/28/2022 7:47 AM [...] Treatment Time Minutes (timed/untimed): 40 Toy Coreas [facility] 10-28-2022 History of Present illness Narrative Episode [...] Toy Coreas PTA documented in this encounter [facility] 10-28-2022 Note HNO ID: [id number] Author: Chika Carpenter MD Service: ? Author [...] Chika Carpenter MD Electronic Signature [facility] 10-27-2022 History of Present illness Narrative Images [...] MD Electronic Signature documented in this encounter [facility] 10-24-2022 Note HNO ID: [id number] Author: Tre Go PT, DPT Service: ? [...] Minutes (timed/untimed): 44 Tre Go, PT, DPT [facility] 10-24-2022 History of Present illness Narrative [...] Go PT, DPT documented in this encounter [facility] 10-21-2022 Note HNO ID: [id number] Author: Toy Coreas PTA Service: ? Author Type: Record Producer Type: Progress Notes Filed: 10/21/2022 3:42 PM [...] Treatment Time Minutes (timed/untimed): 43 Toy Coreas, [facility] 10-21-2022 History of Present illness Narrative Episode [...] Toy Coreas PTA documented in this encounter [facility] 10-16-2022 Note HNO ID: [id number] Author: Tre Go PT, DPT Service: ? [...] Minutes (timed/untimed): 43 Tre Go, PT, DPT [facility] 10-16-2022 History of Present illness Narrative [...] Go PT DPT documented in this encounter [facility] 10-15-2022 Miscellaneous Notes LVM & sent MC asking patient to CB & R/S Thanks! documented in this encounter [facility] 10-14-2022 Note HNO ID: [id number] Author: Toy Coreas PTA Service: ? Author Type: Record Producer Type: Progress Notes Filed: 10/14/2022 4:51 PM [...] Total Treatment [facility]timed[facility]untimed): [facility] History of Present illness Narrative Episode [...] Toy Coreas PTA documented in this encounter [facility] 10-10-2022 Note HNO ID: [id number] Author: Ava Keita PT Service: ? Author [...] step up 2 x 4 inches B OCC THER 10: standing incline calf stretch 3 x [...] Time Minutes (timed/untimed): 42 Ava Keita PT [facility] 10-10-2022 History of Present illness Narrative [...] step up 2 x 4 inches B OCC THER 10: standing incline calf stretch 3 x [...] Ava Keita PT documented in this encounter [facility] 10-03-2022 History of Present illness Narrative [...] protocol implemented: No documented in this encounter [facility] 10-03-2022 Telephone encounter Note What is the need: Situation: Roberto Osborn's calling Background: states she if faxing lab results done while Roberto was in the hospital Assessment: she is faxing results from CBC, BMP, Iron Study and HgA1C Recommendation: is requesting that these labs not be redrawn if possible HgA1c CBC BMP Iron study [facility] 10-03-2022 Miscellaneous Notes What is the need: Situation: Roberto Osborn's calling Background: states she if faxing lab results done while Roberto was in the hospital Assessment: she is faxing results from CBC, BMP, Iron Study and HgA1C Recommendation: is requesting that these labs not be redrawn if possible HgA1c CBC BMP Iron study documented in this encounter [facility] 10-02-2022 Note HNO ID: [id number] Author: Tre Go PT, DPT Service: ? 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 Based on history , examination(knee, mobility, ADLs, [...] contralateral side -Normal Gait -Reciprocal Stair Negotiation [place] in home exercise program. Patient will decrease pain rating by 2 points to meet minimal clinical important difference for numeric pain rating scale. Patient Goals: decrease pain, return to work, improve performance with mobility tasks. Planned Interventions, Frequency, and Duration: Current Frequency: 2x/week Duration: 4 weeks Total Number of Visits Planned: 8 Planned Treatment Interventions: Therapeutic exercise (63016), Neuromuscular re-education (21212), Manual therapy (00168), Therapeutic activities (75551), Self-fpc management (75550), Gait Training (13292) Patient demonstrates good understanding of plan of care and treatment. The above goals and plan of care were discussed and agreed upon by patient/family. SUBJECTIVE: Roberto Osborn SR is a 62 year old male seen today for R knee TKR secondary to OA. Pt had home health PT upon D/C from hospital. 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 Pt has hx of L TKR ~10 [...] R Swelling: m (more content not included)... 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 Based on history , examination(knee, mobility, ADLs, [...] contralateral side -Normal Gait -Reciprocal Stair Negotiation [place] in home exercise program. Patient will decrease pain rating by 2 points to meet minimal clinical important difference for numeric pain rating scale. Patient Goals: decrease pain, return to work, improve performance with mobility tasks. Planned Interventions, Frequency, and Duration: Current Frequency: 2x/week Duration: 4 weeks Total Number of Visits Planned: 8 Planned Treatment Interventions: Therapeutic exercise (66049), Neuromuscular re-education (57006), Manual therapy (48861), Therapeutic activities (28918), Self-fpc management (37440), Gait Training (78736) Patient demonstrates good understanding of plan of care and treatment. The above goals and plan of care were discussed and agreed upon by patient/family. SUBJECTIVE: Roberto Osborn SR is a 62 year old male seen today for R knee TKR secondary to OA. Pt had home health PT upon D/C from hospital. 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 Pt has hx of L TKR ~10 [...] Go PT, DPT documented in this encounter [facility] 09-30-2022 Miscellaneous Notes SITUATION: Patient reports [...] for intervention/education details. documented in this encounter [facility] 09-26-2022 Miscellaneous Notes SITUATION: patient reports [...] for intervention/education details. documented in this encounter [facility] 09-25-2022 Note HNO ID: [id number] Author: Matthieu Esparza PA-C Service: ? Author Type: Physician Pull Up Hand Type: Progress Notes Filed: 09/25/2022 10:25 AM [...] questions answered. Matthieu Esparza PA-C [facility] 09-25-2022 Note HNO ID: [id number] Author: GERMAINE Sparrow Service: Radiology Author Type: [...] GERMAINE Sparrow September 25, 2022 10:04 AM [facility] 09-25-2022 History of Present [...] Matthieu Esparza PA-C [facility] [facility] History of Present illness Narrative [...] 2022 10:04 AM documented in this encounter [facility] 09-23-2022 Miscellaneous Notes SITUATION: only patient [...] for intervention/education details. documented in this encounter [facility] 09-20-2022 Miscellaneous Notes SITUATION: Patient reports [...] for intervention/education details. documented in this encounter [facility] 09-18-2022 Miscellaneous Notes SITUATION: Patient reports [...] for intervention/education details. documented in this encounter [facility] 09-16-2022 Miscellaneous Notes SITUATION: Only patient [...] for intervention/education details. documented in this encounter [facility] 09-14-2022 Miscellaneous Notes Patient requested to cancel PT visit today due to having to be somewhere at noon and not sure when he will be back. Patient stated he was doing ok and requested Friday for next PT visit. documented in this encounter [facility] 09-12-2022 Miscellaneous Notes Kirill PT at [facility]. Pic of drainage uploaded in [employer]. Per Manjeet GARCIA, remove silverlon and use ABD and blanca wrap. Hold ROM for weekend. Call back if worsens or needs to be seen. documented in this encounter [facility] 09-12-2022 Miscellaneous Notes SITUATION: spouse present [...] Surgical Precautions: WBAT ASSESSMENT: Patient evaluated by [facility] physical therapy. Reviewed and explained [...] blanca wrap. Patient verbally agrees to allow [facility] to obtain an image via photography. documented in this encounter [facility] 09-11-2022 Miscellaneous Notes Welcome Home Call: a. Date and Time: 11:21 AM 09/11/2022 b. Contact name/relationship: PatientRoberto c. Have you been active with any Home Care company in the last 60 days(such as help with bathing, filling medications, checking your blood pressure) ? No. d. Was patient given Flu shot this Season (After Apr,): Yes: Location: , Date received: 08/10/22 e. [facility] will be providing your care, are you agreeable to starting these services? YES (yes or no) f. Do you have any upcoming appointments in the next few days, or restrictions to your schedule? NO g. Caregiver: Patient is able to manage care independently h. Confirmed Visited Location and preferred #: [phone] [place] [address] Please keep our your medications both over the counter and prescribed out for the home care to review, your hospital discharge instructions and write down any questions you might have. In order to maintain a safe environment for our caregivers, [facility] requires any animals or weapons present in the home be located in a secured location. Our clinicians will call you the night before or the morning of the appointment. Their # may come up restricted but they'll leave a VM for you. In case you have any questions or concerns in the meantime, our # is [phone], option [phone] Thank you for your time and have a great day. FILIBERTO Nicholson documented in this encounter [facility] 09-11-2022 Note HNO ID: [id number] Author: Matthieu Esparza PA-C Service: Orthopaedic Surgery Author Type: Physician Pull Up Hand Type: Progress Notes Filed: 09/11/2022 8:26 AM [...] 1130 VTE RISK CATEGORY: SURGICAL HIGH RISK ([place], [place]) Active VTE Medication Orders: Anticoagulant AND Antiplatelet Medications (From admission, onward) Start Dose Route Frequency Last Action Ordered Stop 09/11/22 0900 aspirin, enteric coated 81 mg tab(s) (Surgical Risk Categories) 81 mg ORAL 2 TIMES DAILY Ordered 09/10/22 1124 -- Active VTE Prophylaxis Orders: 09/10/22 1130 PNEUMATIC COMPRESSION STOCKINGS ([place], [place]) 09/10/22 1130 ACTIVITY - MOBILIZE PATIENT ([place], [place]) PHYSICAL EXAMINATION: Right Lower Extremity: Dorsalis [...] Patient demonstrated understanding of risks versus benefits. [facility] 09-10-2022 Note HNO ID: [id number] Author: Adryan Payton MD Service: Anesthesiology Author [...] September 10, 2022 TIME: 2:44 PM CSN: [id number] [facility] 09-10-2022 Note HNO ID: [id number] Author: Indio Cho APRN.QUALITY CLOTH TESTER Service: Anesthesiology Author Type: Nurse Calibration Tester Type: Anesthesia Procedure Notes Filed: 09/10/2022 8:10 AM Note Text: ANESTHESIOLOGY PROCEDURE NOTE Spinal Block General Information Procedure Start Time/Medication Administration: 09/10/2022 7:52 AM Patient location during procedure: OR Timeout Performed Pre-procedure: timeout performed Consent Obtained: Yes Patient identity confirmed: arm band, care steamblaster and patient Reason for Block: primary surgical anesthetic Staffing QUALITY CLOTH TESTER: Indio Cho APRN.QUALITY CLOTH TESTER Performed by: QUALITY CLOTH TESTER Preparation Sterility Preparation: hand hygiene performed prior [...] easy flow/return of CSF. SIGNATURE: Indio Cho APRN.QUALITY CLOTH TESTER PATIENT NAME: Roberto Osborn SR DATE: September 10, 2022 TIME: 8:08 AM CSN: [id number] [facility] 09-09-2022 Miscellaneous Notes called back and [...] new ct order. documented in this encounter [facility] 09-07-2022 Note HNO ID: [id number] Author: Shy Saha, CT Service: Radiology Author [...] GERMAINE Chahal September 07, 2022 8:28 AM [facility] 09-07-2022 History of Present illness Narrative [...] 2022 8:28 AM documented in this encounter [facility] 09-03-2022 Miscellaneous Notes Type of form: Long-term Disability Form received via walk in from Dianne When form is completed, Fax form to [phone] Form has been forwarded to [facility] Dianne is wanting to burning supervisor the completed forms once they have been faxed please. Clemente Sauer documented in this encounter [facility] 08-22-2022 Miscellaneous Notes COVID and CT orders entered. Matthieu Esparza PA-C August 22, 2022 3:[address] self test covid order and CT scan order for Rt tka wilmer 09/10/22. Please schedule CT. documented in this encounter [facility] 08-20-2022 Miscellaneous Notes TOTAL JOINT COMPLETE CARE PROGRAM PRE-OPERATIVE TEACHING Service Date: 08/20/2022 Service Time: 4:00 PM Date of : 1960 Gender: male Date of Surgery: 09/10/22 Procedure: Right Total Knee Replacement Complete Care Program was discussed with the patient: Prosthetic Aide Identification: Patient identified a child day care provider to help when discharged [...] Education Binder: Yes Plans discharge home with [facility]. SIGNATURE: FILIBERTO Villalobos PATIENT NAME: Roberto Osborn SR DATE: August 20, 2022 TIME: 4:00 PM documented in this encounter [facility] 08-19-2022 Note HNO ID: [id number] Author: Yanet Boyle PA-C Service: ? Author Type: Physician Pull Up Hand Type: Progress Notes Filed: 08/19/2022 8:11 AM [...] 378 QTC Calculation (Bazett) 427 Calculated P Irvine 57 Calculated R Irvine -3 Calculated T Irvine 30 Impression NORMAL SINUS RHYTHM NORMAL ECG WHEN COMPARED WITH ECG OF 29-JUL-2014 08:31, NO SIGNIFICANT CHANGE WAS FOUND Confirmed by ELIJAH BURNS M.D. ([id number]) on 08/16/2022 2:14:14 PM Labs and ECG reviewed and accepted. Pt is optimally prepared for surgery. Yanet Boyle PA-C 08/19/2022 8:10 AM [facility] 08-16-2022 Instructions Yanet Boyle PA-C - 08/16/2022 9:07 AM EST PATIENT PREOPERATIVE INSTRUCTIONS [facility]: [phone] -- [address] [facility] [address]. Please read below carefully for your personalized [...] Advance Directive, please fax a copy to [phone] or email to for it to be [...] chart that day. documented in this encounter [facility] 08-15-2022 History and physical note HISTORY [...] manage symptoms. Procedure scheduled on 09/10/2022 at [place]. REVIEW OF SYSTEMS: General: No weight loss, malaise or fevers. Neurological: No history of TIA's, stroke, CLINICAL PHARMACIST tumor, impaired sensorium, hemiplegia, paraplegia or quadraplegia. 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 [...] record for those providers who practice within [facility] or with access to [employer] via [employer], or via [employer] documented in this encounter [facility] 08-02-2022 History of Present illness Narrative [...] 2022 12:30 PM documented in this encounter [facility] 07-29-2022 History of Present illness Narrative [...] Chika Carpenter M.D. Department of Orthopaedic Surgery [facility] documented in this encounter [facility] 07-05-2022 Miscellaneous Notes I talked with [...] helping. Please advise documented in this encounter [facility] 06-28-2022 History of Present illness Narrative [...] knee joint Informed Consent Consent Obtained: Verbal [place]wood Protocol A moment to CARE was completed. [...] completed when applicable documented in this encounter [facility] 06-21-2022 History of Present illness Narrative [...] knee joint Informed Consent Consent Obtained: Verbal [place]wood Protocol A moment to CARE was completed. [...] completed when applicable documented in this encounter [facility] 06-14-2022 History of Present illness Narrative [...] knee joint Informed Consent Consent Obtained: Verbal [place]wood Protocol A moment to CARE was completed. 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 [...] of further assistance. documented in this encounter [facility] 02-22-2022 History of Present illness Narrative [...] 2022 12:52 PM documented in this encounter [facility] 11-15-2021 Miscellaneous Notes Images from the original note were not included. [employer] Care Opportunity Follow-up HBA1C Due Situation: [employer] Online Reporting Portal reviewed for open care opportunities and completion of health maintenance gaps in care. Payor: SUSAN - [employer] / Plan: BLUE CROSS/HMO,PPO,POS / Product Type: PPO [employer] Reporting Portal: Care Opportunity: Past due [...] for additional care opportunities. DAVON Givens, RN, [facility] [place] Social Science Analyst documented in this encounter [facility] Evaluation note Diagnosis Pain- Primary Generalized pain [facility] Pain Generalized pain [facility] Diagnosis Primary osteoarthritis of right knee- Primary Primary localized osteoarthrosis, lower leg [facility] Diagnosis Colon cancer screening- Primary Special screening for malignant neoplasms, colon [facility] Primary osteoarthritis of right knee- Primary Primary localized osteoarthrosis, lower leg [facility] Primary osteoarthritis of right knee- Primary Primary localized osteoarthrosis, lower leg [facility] Diagnosis Primary osteoarthritis of right knee- Primary Primary localized osteoarthrosis, lower leg [facility] Acute pain of right knee- Primary Primary osteoarthritis of right knee Primary localized osteoarthrosis, lower leg [facility] Diagnosis Primary osteoarthritis of right [...] osteoarthrosis, lower leg [facility] Diagnosis Primary osteoarthritis of right knee Primary localized osteoarthrosis, lower leg Preop testing Preoperative examination, unspecified Primary osteoarthritis of right knee Primary localized osteoarthrosis, lower leg [facility] Diagnosis S/P total knee arthroplasty, right- Primary [facility] Diagnosis Pain in right hip Pain in joint, pelvic region and thigh Chronic pain of right knee [facility] Diagnosis Annual physical exam- Primary Routine general medical examination at a [facility] Vitamin D deficiency Unspecified vitamin D [...] specified viral diseases [facility] Diagnosis Erectile dysfunction, unspecified erectile dysfunction type- Primary [facility] Diagnosis Chronic pain of right knee- Primary S/P total knee arthroplasty, right [facility] Diagnosis Chronic pain of right knee- Primary [facility] Diagnosis Chronic pain of right knee- Primary [facility] Diagnosis Chronic pain of right knee- Primary [facility] Diagnosis Chronic pain of right knee- Primary [facility] Diagnosis Aftercare following right knee joint replacement surgery- Primary [facility] Diagnosis Chronic pain of right knee- Primary [facility] Diagnosis Chronic pain of right knee- Primary [facility] Diagnosis Chronic pain of right knee- Primary [facility] Diagnosis Aftercare following right knee joint replacement surgery- Primary [facility] Diagnosis Primary osteoarthritis of right knee- Primary Primary localized osteoarthrosis, lower leg Preop testing Preoperative examination, unspecified Encounter for preoperative screening laboratory testing for COVID-19 virus [facility] Diagnosis Primary osteoarthritis of right knee- Primary Primary localized osteoarthrosis, lower leg documented in this encounter [facility] note* Diagnosis Myalgia- Primary Mylagia and myositis, unspecified B12 deficiency Other B-complex deficiencies Vitamin D deficiency Unspecified vitamin D deficiency [facility]* Diagnosis Status post total left knee replacement- Primary documented in this encounter [facility] note* Diagnosis Pain due to internal orthopedic prosthetic devices, implants and grafts, initial encounter ([facility])- Primary S/P total knee replacement using cement, left 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 ([facility]) documented in this encounter [facility] note* Diagnosis Pain due to internal orthopedic prosthetic devices, implants and grafts, initial encounter ([facility]) S/P total knee replacement using cement, left documented in this encounter [facility] note* Diagnosis Pain due to internal orthopedic prosthetic devices, implants and grafts, initial encounter ([facility])- Primary documented in this encounter [facility] note* Diagnosis Left leg swelling- Primary Left leg swelling [facility]* Diagnosis Pre-op evaluation- Primary Preoperative examination, unspecified Carpal tunnel syndrome of left wrist Carpal tunnel syndrome Essential hypertension, benign Type 2 diabetes mellitus without complication, without long-term current use of insulin ([facility]) Gastroesophageal reflux disease, unspecified whether esophagitis present Allergic rhinitis, unspecified seasonality, unspecified trigger Preoperative examination- Primary Preoperative examination, unspecified Type 2 diabetes mellitus without complication, without long-term current use of insulin ([facility]) Class 1 obesity with body mass [...] pain, unspecified chronicity documented in this encounter [facility] note* Diagnosis Pre-op evaluation- Primary Preoperative examination, unspecified Carpal tunnel syndrome of left wrist Carpal tunnel syndrome Essential hypertension, benign Type 2 diabetes mellitus without complication, without long-term current use of insulin ([facility]) Gastroesophageal reflux disease, unspecified whether esophagitis [...] left knee replacement documented in this encounter [facility] note* Diagnosis Pre-op evaluation- Primary Preoperative examination, [...] pain, unspecified chronicity documented in this encounter [facility] note* Diagnosis Pre-op evaluation- Primary Preoperative examination, [...] whether esophagitis present documented in this encounter [facility] note* Diagnosis Chronic pain of right knee- Primary documented in this encounter [facility] [employer] Work Phone: Evaluation note* Diagnosis Spinal stenosis of lumbar region with neurogenic claudication- Primary Spinal stenosis, lumbar region, with neurogenic claudication documented in this encounter [facility] [employer] Work Phone: Evaluation note* Diagnosis Annual physical [...] neoplasms, colon documented in this encounter [employer] Work Phone: Evaluation note* Diagnosis Spinal stenosis of lumbar region with neurogenic claudication- Primary Spinal stenosis, lumbar region, with neurogenic claudication documented in this encounter [facility] [employer] Work Phone: Evaluation note* Diagnosis Medicare welcome [...] [facility] [place] exam- Primary Type 2 diabetes mellitus without [...] 09/12/2022 Active 1 goal linked to scheduled/documen mamdaou intervention 1 goal intervention scheduled/document ed in [...] clean dressing and contact provider and PT test case developer. Problem:PT Orthopedic Condition Goal:Manage Orthopedic Condition Completed [...] Discuss all medications you are taking, even ascs-mat-jxtqhah medicines, with your provider and pharmacist since [...] & Living Will. [facility]* Visit [...] of DME/assistive devices. documented in this encounter [facility] of care [facility]* Visit [...] softener(s) as prescribed. documented in this encounter [facility] Plan of care note* Visit [...] of DME/assistive devices. documented in this encounter [facility] Plan of care note* Visit [...] of DME/assistive devices. [facility]* Visit [...] of DME/assistive devices. [facility]* Visit [...] to: outpatient therapy [facility] Diagnostic Procedure Only (Routine) - Authorized Specialty Diagnoses / Procedures Referred By Contac t Referred To Contact XR IMAGING Diagnoses Pain Procedures XR KNEE GENERAL 4V AP BOTH/PA BOTH/LAT/MERC BILATERAL RADIOLOGIC EXAM KNEE COMPLETE 4/MORE VIEWS Lea Connor PA-C [address] [place] [address] Xr Imaging Referral ID Status Reason Start Date Expiration Date Visits Requested Visits Authorized [id number] Authorized Auto-Generat ed Referral 02/01/2022 03/03/2023 1 1 [facility] for referral (narrative)* Diagnostic Procedure Only (Routine) - Closed Specialty Diagnoses / Procedures Referred By Contac t Referred To Contact XR IMAGING Diagnoses Pain Procedures XR KNEE GENERAL 4V AP BOTH/PA BOTH/LAT/MERC BILATERAL RADIOLOGIC EXAM KNEE COMPLETE 4/MORE VIEWS Lea Connor PA-C [address] [place] [address] Xr Imaging Referral ID Status Reason Start Date Expiration Date V isits Requested Visits Authorized [id number] Closed Auto-Generate d Referral 02/01/2022 03/03/2023 1 1 [facility] for referral (narrative)* Outpatient Procedure (Routine) - Closed Specialty Diagnoses / Procedures Referred By Guyac t Referred To Contact [facility] Diagnoses Preoperative examination Procedures ECG COMPLETE ECG ROUTINE ECG W/LEAST 12 LDS W/I&R Yanet Boyle PA-C [address] [address] [facility] [address] [place] [address] Referral ID Status Reason Start Date Expiration Date V isits Requested Visits Authorized [id number] Closed Auto-Generate d Referral 08/16/2022 08/10/2023 1 1 [facility] for referral (narrative)* Diagnostic Procedure Only (Routine) - Authorized Specialty Diagnoses / Procedures Referred By Rodrigo ford Referred To Contact XR IMAGING Diagnoses Status post total left knee replacement Procedures XR KNEE POST 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 RADIOLOGIC EXAMINATION KNEE 3 VIEWS Regla Higgins PA-C [address] [place] [address] Xr Imaging [facility] Referral ID Status Reason Start Date Expiration Date Visits Requested Visits Authorized [id number] Authorized Auto-Generat ed Referral 05/14/2023 06/12/2024 1 1 [facility] for referral (narrative)* Diagnostic Procedure Only (Routine) - Open Specialty Diagnoses / Procedures Referred By Rodrigo ford Referred To Contact [facility] Diagnoses Pain due to internal orthopedic prosthetic devices, implants and grafts, initial encounter (HCC) S/P total knee replacement using cement, left Procedures NM BONE 3 PHASE BONE &/JOINT IMAGING 3 PHASE STUDY Regla Higgins PA-C [address] [place] [address] Molecular [facility] Functional Imaging [address] [place] [address] Referral ID Status Reason Start Date Expiration Date V isits Requested Visits Authorized [id number] Open Auto-Generate d Referral 05/16/2023 06/14/2024 1 1 [facility] for referral (narrative)* Diagnostic Procedure Only (Routine) - Closed Specialty Diagnoses / Procedures Referred By Contac t Referred To Contact MOLECULAR & FUNCTIONAL IMAGING Diagnoses Pain due to internal orthopedic prosthetic devices, implants and grafts, initial encounter (HCC) S/P total knee replacement using cement, left Procedures NM BONE 3 PHASE BONE &/JOINT IMAGING 3 PHASE STUDY Chika Carpenter MD [address] [address] Molecular & Functional Imaging [address] [place] [address] Referral ID Status Reason Start Date Expiration Date V isits Requested Visits Authorized [id number] Closed Auto-Generate d Referral 05/20/2023 08/10/2023 1 1 [facility] for referral (narrative)* Diagnostic Procedure Only (Routine) - Closed Specialty Diagnoses / Procedures Referred By Contac t Referred To Contact XR IMAGING Diagnoses Right knee pain, unspecified chronicity Procedures XR KNEE POST OP 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 RIGHT RADIOLOGIC EXAMINATION KNEE 3 VIEWS Matthieu Esparza PA-C [address] [place] [address] X[facility] [place] [address] Referral ID Status Reason Start Date Expiration Date V isits Requested Visits Authorized [id number] Closed Auto-Generate d Referral 07/14/2023 08/09/2024 1 1 * Diagnostic Procedure Only (Routine) - Closed Specialty Diagnoses / Procedures Referred By Contac t Referred To Contact XR IMAGING Diagnoses Pain in left hip Procedures XR HIP 2V AP/LAT LEFT (AK,FL,ME,UN) RADEX HIP UNILATERAL WITH PELVIS 2-3 VIEWS Regla Higgins PA-C [address] [place] [address] [place] [address] Referral ID Status Reason Start Date Expiration Date V isits Requested Visits Authorized [id number] Closed Auto-Generate d Referral 06/20/2023 07/19/2024 1 1 [facility] for referral (narrative)* Diagnostic Procedure Only (Routine) - Closed Specialty Diagnoses / Procedures Referred By Contac t Referred To Contact XR IMAGING Diagnoses Status post total left knee replacement Procedures XR KNEE POST 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 RADIOLOGIC EXAMINATION KNEE 3 VIEWS Regla Higgins PA-C [address] [place] [address] [place] [address] Referral ID Status Reason Start Date Expiration Date V isits Requested Visits Authorized [id number] Closed Auto-Generate d Referral 05/14/2023 06/12/2024 1 1 [facility] for referral (narrative)* Diagnostic Procedure Only (Routine) - Closed Specialty Diagnoses / Procedures Referred By Contac t Referred To Contact XR IMAGING Diagnoses Right knee pain, unspecified chronicity Procedures XR KNEE POST OP 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 RIGHT RADIOLOGIC EXAMINATION KNEE 3 VIEWS Matthieu Esparza PA-C [address] [place] [address] [place] [address] Referral ID Status Reason Start Date Expiration Date V isits Requested Visits Authorized [id number] Closed Auto-Generate d Referral 09/12/2022 10/12/2023 1 1 [facility] for referral (narrative)* Diagnostic Procedure Only (Routine) - Closed Specialty Diagnoses / Procedures Referred By Contac t Referred To Contact XR IMAGING Diagnoses Right shoulder pain, unspecified chronicity Procedures XR SHOULDER [id number] AP/TRUE AP RIGHT RADEX SHOULDER COMPLETE MINIMUM 2 VIEWS Matthieu Esparza PA-C [address] [place] [address] X[facility] [place] [address] Referral ID Status Reason Start Date Expiration Date V isits Requested Visits Authorized [id number] Closed Auto-Generate d Referral 07/11/2022 08/10/2023 1 1 [facility] for visit Narrative* Diagnostic Procedure Only (Routine) - Closed Specialty Diagnoses / Procedures Referred By Contac t Referred To Contact XR IMAGING Diagnoses Pain Procedures XR KNEE GENERAL 4V AP BOTH/PA BOTH/LAT/MERC BILATERAL RADIOLOGIC EXAM KNEE COMPLETE 4/MORE VIEWS Lea Connor PA-C [address] [place] [id number] X[facility] Referral ID Status Reason Start Date Expiration Date V isits Requested Visits Authorized [id number] Closed Auto-Generate d Referral 02/01/2022 03/03/2023 1 1 [facility] for visit Narrative* Diagnostic Procedure Only (Routine) - Closed Specialty Diagnoses / Procedures Referred By Contac t Referred To Contact MOLECULAR & FUNCTIONAL IMAGING Diagnoses Pain due to internal orthopedic prosthetic devices, implants and grafts, initial encounter (HCC) S/P total knee replacement using cement, left Procedures NM BONE 3 PHASE BONE &/JOINT IMAGING 3 PHASE STUDY Chika Carpenter MD [address] [address] Molecular & Functional Imaging [address] [place] [address] Referral ID Status Reason Start Date Expiration Date V isits Requested Visits Authorized [id number] Closed Auto-Generate d Referral 05/20/2023 08/10/2023 1 1 [facility] for visit Narrative* Diagnostic Procedure Only (Routine) - Closed Specialty Diagnoses / Procedures Referred By Contac t Referred To Contact XR IMAGING Diagnoses Pain in left hip Procedures XR HIP 2V AP/LAT LEFT (AK,FL,ME,UN) RADEX HIP UNILATERAL WITH PELVIS 2-3 VIEWS Regla Higgins PA-C [address] [place] [address] [place] [address] Referral ID Status Reason Start Date Expiration Date V isits Requested Visits Authorized [id number] Closed Auto-Generate d Referral 06/20/2023 07/19/2024 1 1 [facility] for visit Narrative* Diagnostic Procedure Only (Routine) - Closed Specialty Diagnoses / Procedures Referred By Contac t Referred To Contact XR IMAGING Diagnoses Status post total left knee replacement Procedures XR KNEE POST 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 RADIOLOGIC EXAMINATION KNEE 3 VIEWS Regla Higgins PA-C [address] [place] [address] [place] [address] Referral ID Status Reason Start Date Expiration Date V isits Requested Visits Authorized [id number] Closed Auto-Generate d Referral 05/14/2023 06/12/2024 1 1 [facility] for visit Narrative* Diagnostic Procedure Only (Routine) - Closed Specialty Diagnoses / Procedures Referred By Contac t Referred To Contact XR IMAGING Diagnoses Right knee pain, unspecified chronicity Procedures XR KNEE POST OP 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 RIGHT RADIOLOGIC EXAMINATION KNEE 3 VIEWS Matthieu Esparza PA-C [address] [place] [address] [place] [address] Referral ID Status Reason Start Date Expiration Date V isits Requested Visits Authorized [id number] Closed Auto-Generate d Referral 09/12/2022 10/12/2023 1 1 [facility] for visit Narrative* Diagnostic Procedure Only (Routine) - Closed Specialty Diagnoses / Procedures Referred By Contac t Referred To Contact XR IMAGING Diagnoses Right shoulder pain, unspecified chronicity Procedures XR SHOULDER [id number] AP/TRUE AP RIGHT RADEX SHOULDER COMPLETE MINIMUM 2 VIEWS Matthieu Esparza PA-C [address] [place] [address] [place] [address] Referral ID Status Reason Start Date Expiration Date V isits Requested Visits Authorized [id number] Closed Auto-Generate d Referral 07/11/2022 08/10/2023 1 1 [facility] Discharge Instructions * Attachments The following attachments cannot be sent through Care Everywhere. 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 [place] [address] Specialty Diagnoses / Procedures Referred By Rodrigo ford Referred To Contact CT IMAGING Diagnoses Primary osteoarthritis of right knee Preop testing Procedures CT KNEE WO IVCON RT CT LOWER EXTREMITY W/O CONTRAST MATERIAL Matthieu Esparza PA-C [address] [place] [address] Ct Imaging Referral ID Status Reason Start Date Expiration Date V isits Requested Visits Authorized [id number] Closed Auto-Generate d Referral 08/26/2022 08/10/2023 1 1 Specialty Diagnoses / Procedures Referred By Contac t Referred To Contact [facility] Diagnoses S/P total knee arthroplasty, right Procedures CONSULT TO PHYSICAL THERAPY PHYSICAL THERAPY EVALUATION HIGH COMPLEX 45 MINS Matthieu Esparza PA-C [address] [place] [address] [facility] [address] [address] Referral ID Status Reason Start Date Expiration Date Visits Requested Visits Authorized [id number] Pending Review Auto-Generat ed Referral 09/25/2022 09/25/2023 1 1 Specialty Diagnoses / Procedures Referred By Contac t Referred To Contact [facility] Diagnoses Pain in right hip Chronic pain of right knee Procedures PT REHAB FOLLOW UP ORDER THERAPEUTIC EXERCISES RE, EA [address] [place] [address] [facility] [address] [address] Referral ID Status Reason Start Date Expiration Date Visits Requested Visits Authorized [id number] Pending Review PCP Requested Referral Auto-Generate d Referral 10/02/2022 12/31/2022 1 1 Specialty Diagnoses / Procedures Referred By Contac t Referred To Contact Timothy Correa MD [address] [place] [address] [place] [address] Referral ID Status Reason Start Date Expiration Date V isits Requested Visits Authorized [id number] Pending Review 3 3 Specialty Diagnoses / Procedures Referred By Contac t Referred To Contact [facility] Diagnoses Chronic pain of right knee Procedures PT REHAB FOLLOW UP ORDER THERAPEUTIC EXERCISES RE, EA [address] [place] [address] [facility] [address] [address] Referral ID Status Reason Start Date Expiration Date Visits Requested Visits Authorized [id number] Pending Review PCP Requested Referral Auto-Generate d Referral 10/16/2022 01/14/2023 1 1 Referral ID Status Reason Start Date Expiration Date Visits Requested Visits Authorized [id number] Pending Review PCP Requested Referral Auto-Generate d Referral 10/30/2022 01/28/2023 1 1 Specialty Diagnoses / Procedures Referred By Contac t Referred To Contact CT IMAGING Diagnoses Primary osteoarthritis of right knee Procedures CT KNEE WO IVCON RT CT LOWER EXTREMITY W/O CONTRAST MATERIAL Matthieu Esparza PA-C [address] [place] [address] Ct Imaging Referral ID Status Reason Start Date Expiration Date V isits Requested Visits Authorized [id number] Closed Auto-Generate d Referral 09/10/2022 08/10/2023 1 1 Specialty Diagnoses / Procedures Referred By Contac t Referred To Contact Radiology Diagnoses Left leg swelling Procedures US LEG LEFT VENOUS + DOPPLER Timothy Correa MD [address] [facility] [place] [address] S ULTRASOUND [address] [place] [address] Referral ID Status Reason Start Date Expiration Date V isits Requested Visits Authorized [id number] Closed Transfer of Care-[facility] 12/16/2023 03/17/2024 1 1 Summary Purpose Family [...] rs pt Chika Carpenter MD [address] [place] [address] [place] [address] [place] [address] Referral ID Status Reason Start Date Expiration Date V isits Requested Visits Authorized [id number] Authorized 08/11/2022 08/10/2023 99 99 Reason Comments Physical Therapy Specialty Diagnoses / Procedures Referred By Contac Referred To Contact PHYSICAL THERAPY Diagnoses Pain in right hip Other chronic pain Pain in right hip [M25.551] Chronic pain of right knee [M25.561, G89.29] Procedures post op est rs pt Chika Carpenter MD [address] [place] [address] [place] [address] [place] [address] Reason Comments Follow Up Euflexxa #3 Specialty Diagnoses / Procedures [facility] Referred To Contact Orthopedics / ORTHOPAEDIC SURGERY Diagnoses right knee euflexxa #1 Procedures HUSAM INJECT 3 Self Chika Carpenter MD [address] [place] [address] Referral ID Status Reason Start Date Expiration Date V isits Requested Visits Authorized [id number] Closed Financial Clearance Required - Self Pay Patient Cleared - True Self-Pay required payment collected 06/14/2022 09/12/2022 3 3 Reason Comments Injections Follow Up Referral ID Status Reason Start Date Expiration Date Visits Requested Visits Authorized [id number] Authorized Financial Clearance Required - Self Pay [...] W/O CONTRAST MATERIAL Matthieu Esparza PA-C [address] [place] [address] Ct Imaging Referral ID Status Reason Start Date Expiration Date V isits Requested Visits Authorized [id number] Closed Auto-Generate d Referral 08/26/2022 08/10/2023 1 1 Reason Comments Forms Specialty Diagnoses / Procedures Referred By Contac t Referred To Contact Diagnoses Primary osteoarthritis of right knee Procedures ARTHRP KNE CONDYLE&PLATU MEDIAL&LAT COMPARTMENTS ROBOTIC ASSISTED TOTAL KNEE ARTHROPLASTY [facility] [address] [place] [address] Referral ID Status Reason Start Date Expiration Date Visits Re quested Visits Authorized [id number] 1 1 Reason Comments Home Care Confirmation call Reason Comments Patient Update Reason Comments Home Care Unmade PT visit Specialty Diagnoses / Procedures Referred By Contac t Referred To Contact [facility] [address] [place] [address] Referral ID Status Reason Start Date Expiration Date Visits Re quested Visits Authorized [id number] 1 1 Reason Comments Established Patient Follow Up Post Op Knee Replacement Reason Comments PT Eval Specialty Diagnoses / Procedures Referred By Contac t Referred To Contact Physical Therapy / PHYSICAL THERAPY Diagnoses RT TKR [facility] DISC 09/30 Procedures NEW RS PT [facility] TOTAL JOINT Chika Carpenter MD [address] [address] Tre Go, PT, DPT [address] [facility] [place] [place] [address] Referral ID Status Reason Start Date Expiration Date Visits Re quested Visits Authorized [id number] Closed 10/02/2022 12/31/2022 1 1 Reason Comments Complete exam Reason Onset Date Comments Discuss results of exam, other provider 10/03/19 Specialty Diagnoses / Procedures Referred By Contac t Referred To Contact [facility] Diagnoses S/P total knee arthroplasty, right Procedures CONSULT TO PHYSICAL THERAPY PHYSICAL THERAPY EVALUATION HIGH COMPLEX 45 MINS Matthieu Esparza PA-C [address] [place] [address] [facility] [place] [address] Referral ID Status Reason Start Date Expiration Date Visits Requested Visits Authorized [id number] Authorized Auto-Generat ed Referral 08/11/2022 08/10/2023 20 [...] section and content) DATE CREATED AUTHOR 03/28/2020 [facility] DATE CREATED AUTHOR AUTHOR'S ORGANIZ ATION 04/26/2020 [facility] DATE CREATED AUTHOR AUTHOR'S ORGANIZ ATION 05/02/2020 [facility] DATE CREATED AUTHOR AUTHOR'S ORGANIZ ATION 07/20/2023 [facility] DATE CREATED AUTHOR AUTHOR'S ORGANIZ ATION 08/15/2023 [facility] DATE CREATED AUTHOR AUTHOR'S ORGANIZ ATION 09/25/2023 [facility] DATE CREATED AUTHOR AUTHOR'S ORGANIZ ATION 09/11/2024 [facility] DATE CREATED AUTHOR AUTHOR'S ORGANIZ ATION 01/19/2025 [facility] Care Teams (unrecognized sec tion and content) Poultry Eviscerator Relationship Specialty Start Date End Date Timothy Correa MD [address] [place] [address] [place] [address] PCP - General Family Medicine 11/06/20 Poultry Eviscerator Relationship Specialty Start Date End Date Timothy Correa MD [address] [place] [address] [place] [address] PCP - General Family Medicine 11/06/20 Poultry Eviscerator Relationship Specialty Start Date End Date Phill Timothy Coronado PCP - General Family Practice 03/01/13 Poultry Eviscerator Relationship Specialty Start Date End Date Phill Timothy Coronado PCP - General Family Practice 03/01/13 Poultry Eviscerator Relationship Specialty Start Date End Date Phill Timothy Coronado PCP - General Family Practice 03/01/13 Poultry Eviscerator Relationship Specialty Start Date End Date Phill Timothy Coronado PCP - General Family Practice 03/01/13 Poultry Eviscerator Relationship Specialty Start Date End Date Timothy Correa MD [address] [place] [address] [place] [address] PCP - General Family Medicine 11/06/20 Poultry Eviscerator Relationship Specialty Start Date End Date Phill Timothy Coronado PCP - General Family Medicine 03/01/13 Poultry Eviscerator Relationship Specialty Start Date End Date PhillTimothy PCP - General Family Medicine 03/01/13 Poultry Eviscerator Relationship Specialty Start Date End Date Phill Timothy Coronado PCP - General Family Medicine 03/01/13 Poultry Eviscerator Relationship Specialty Start Date End Date Timothy Correa MD [address] [place] [address] [place] [address] PCP - General Family Medicine 11/06/20 Poultry Eviscerator Relationship Specialty Start Date End Date Timothy Correa PCP - General Family Medicine 03/01/13 Poultry Eviscerator Relationship Specialty Start Date End Date Timothy Correa PCP - General Family Medicine 03/01/13 Sisdivina, Rony, [facility] [address] [place] [address] Specialty Social Science Analyst Orthopedics 07/29/22 10/13/22 Poultry Eviscerator Relationship Specialty Start Date End Date Timothy Correa PCP - General Family Medicine 03/01/13 SisGiovanni murciain, [facility] [address] [place] [address] Specialty Social Science Analyst Orthopedics 07/29/22 10/13/22 Poultry Eviscerator Relationship Specialty Start Date End Date Timothy Correa PCP - General Family Medicine 03/01/13 SisGiovanni murciain, [facility] [address] [place] [address] Specialty Social Science Analyst Orthopedics 07/29/22 10/13/22 Poultry Eviscerator Relationship Specialty Start Date End Date Timothy Correa MD [address] [place] [address] DR TR[place], [place] [address] PCP - General Family Medicine 11/06/20 Poultry Eviscerator Relationship Specialty Start Date End Date Timothy Correa PCP - General Family Medicine 03/01/13 SisGiovanni murciain, [facility] [address] [place] [address] Specialty Social Science Analyst Orthopedics 07/29/22 10/13/22 Poultry Eviscerator Relationship Specialty Start Date End Date iTmothy Correa PCP - General Family Medicine 03/01/13 SisGiovanni murciain, [facility] [address] [place] [address] Specialty Social Science Analyst Orthopedics 07/29/22 10/13/22 Poultry Eviscerator Relationship Specialty Start Date End Date Timothy Correa PCP - General Family Medicine 03/01/13 SisRony murcia, [facility] [address] [place] [address] Specialty Social Science Analyst Orthopedics 07/29/22 10/13/22 Poultry Eviscerator Relationship Specialty Start Date End Date Timothy Correa PCP - General Family Medicine 03/01/13 Rony Doyle, [facility] [address] [place] [address] Specialty Social Science Analyst Orthopedics 07/29/22 10/13/22 Poultry Eviscerator Relationship Specialty Start Date End Date Timothy Correa PCP - General Family Medicine 03/01/13 Rony Doyle, [facility] [address] [place] [address] Specialty Social Science Analyst Orthopedics 07/29/22 10/13/22 Matthieu Esparza PA-C [address] [place] [address] Referring Orthopedics 09/11/22 Chika Carpenter MD [address] [address] Home Care Provider Orthopedics 09/11/22 Ned Arnold, PT [address] [place] [address] [facility] 09/11/22 Poultry Eviscerator Relationship Specialty Start Date End Date Timothy Correa PCP - General Family Medicine 03/01/13 Rony Doyle, [facility] [address] [place] [address] Specialty Social Science Analyst Orthopedics 07/29/22 10/13/22 Matthieu Esparza PA-C [address] [place] [address] Referring Orthopedics 09/11/22 Chika Carpenter MD [address] [place] [address] Home Care Provider Orthopedics 09/11/22 Ned Arnold, PT [address] [place] [address] [facility] 09/11/22 Poultry Eviscerator Relationship Specialty Start Date End Date Timothy Correa PCP - General Family Medicine 03/01/13 Rony Doyle, [facility] [address] [place] [address] Specialty Social Science Analyst Orthopedics 07/29/22 10/13/22 Matthieu Esparza PA-C [address] [place] [address] Referring Orthopedics 09/11/22 Chika Carpenter MD [address] [place] [address] Home Care Provider Orthopedics 09/11/22 Ned Arnold, PT [address] [place] [address] [facility] 09/11/22 Poultry Eviscerator Relationship Specialty Start Date End Date Timothy Correa PCP - General Family Medicine 03/01/13 Rony Doyle, [facility] [address] [place] [address] Specialty Social Science Analyst Orthopedics 07/29/22 10/13/22 Matthieu Esparza PA-C [address] [place] [address] Referring Orthopedics 09/11/22 Chika Carpenter MD [address] [address] Home Care Provider Orthopedics 09/11/22 Ned Arnold, PT [address] [place] [address] [facility] 09/11/22 Poultry Eviscerator Relationship Specialty Start Date End Date Timothy Correa M PCP - General Family Medicine 03/01/13 Rony Doyle, [facility] [address] [place] [address] Specialty Social Science Analyst Orthopedics 07/29/22 10/13/22 Matthieu Esparza PA-C [address] [place] [address] Referring Orthopedics 09/11/22 Chika Carpenter MD [address] [address] Home Care Provider Orthopedics 09/11/22 Ned Arnold, PT [address] [place] [address] [facility] 09/11/22 Poultry Eviscerator Relationship Specialty Start Date End Date Timothy Correa M PCP - General Family Medicine 03/01/13 [facility]ony [facility], [facility] [address] [place] [address] Specialty Social Science Analyst Orthopedics 07/29/22 10/13/22 Matthieu Esparza PA-C [address] [place] [address] Referring Orthopedics 09/11/22 Chika Carpenter MD [address] [address] Home Care Provider Orthopedics 09/11/22 Ned Arnold, PT [address] [place] [address] [facility] 09/11/22 Poultry Eviscerator Relationship Specialty Start Date End Date Timothy Correa M PCP - General Family Medicine 03/01/13 Rony Doyle, [facility] [address] [place] [address] Specialty Social Science Analyst Orthopedics 07/29/22 10/13/22 Matthieu Esparza PA-C [address] [place] [address] Referring Orthopedics 09/11/22 Chika Carpenter MD [address] [address] Home Care Provider Orthopedics 09/11/22 Ned Arnold, PT [address] [place] [address] [facility] 09/11/22 Poultry Eviscerator Relationship Specialty Start Date End Date Timothy Correa PCP - General Family Medicine 03/01/13 Rony Doyle, [facility] [address] [place] [address] Specialty Social Science Analyst Orthopedics 07/29/22 10/13/22 Matthieu Esparza PA-C [address] [place] [address] Referring Orthopedics 09/11/22 Chika Carpenter MD [address] [address] Home Care Provider Orthopedics 09/11/22 Ned Arnold, PT [address] [place] [address] [facility] 09/11/22 Poultry Eviscerator Relationship Specialty Start Date End Date Phill Gutierrez PCP - General Family Medicine 03/01/13 Rony Doyle, [facility] [address] [place] [address] Specialty Social Science Analyst Orthopedics 07/29/22 10/13/22 Matthieu Esparza PA-C [address] [place] [address] Referring Orthopedics 09/11/22 Chika Carpenter MD [address] [address] Home Care Provider Orthopedics 09/11/22 Ned Arnold, PT [address] [place] [address] [facility] 09/11/22 Poultry Eviscerator Relationship Specialty Start Date End Date Timothy Correa MD [address] [facility] [place] [address] PCP - General Family Medicine 11/06/20 Poultry Eviscerator Relationship Specialty Start Date End Date Timothy Correa PCP - General Family Medicine 03/01/13 Rony Doyle [facility] [address] [place] [address] Specialty Social Science Analyst Orthopedics 07/29/22 10/13/22 Matthieu Esparza PA-C [address] [place] [address] Referring Orthopedics 09/11/22 Chika Carpenter MD [address] [address] Home Care Provider Orthopedics 09/11/22 Ned Arnold, PT [address] [place] [address] [employer] Post Acute Care 09/11/22 Poultry Eviscerator Relationship Specialty Start Date End Date Timothy Correa MD [address] [facility] [place] [address] PCP - General Family Medicine 11/06/20 Poultry Eviscerator Relationship Specialty Start Date End Date Timothy Correa MD [address] [facility] [place] [address] PCP - General Family Medicine 11/06/20 Poultry Eviscerator Relationship Specialty Start Date End Date Timothy Correa PCP - General Family Medicine 03/01/13 Matthieu Esparza PA-C [address] [place] [address] Referring Orthopedics 09/11/22 Chika Carpenter MD [address] [place] [address] Home Care Provider Orthopedics 09/11/22 Ned Arnold, PT [address] [place] [address] [employer] Post Acute Care 09/11/22 Poultry Eviscerator Relationship Specialty Start Date End Date Timothy Correa PCP - General Family Medicine 03/01/13 Matthieu Esparza PA-C [address] [place] [address] Referring Orthopedics 09/11/22 Chika Carpenter MD [address] [place] [address] Home Care Provider Orthopedics 09/11/22 Ned Arnold, PT [address] [place] [address] [employer] Post Acute Care 09/11/22 Poultry Eviscerator Relationship Specialty Start Date End Date Timothy Correa PCP - General Family Medicine 03/01/13 Matthieu Esparza PA-C [address] [place] [address] Referring Orthopedics 09/11/22 Chika Carpenter MD [address] [place] [address] Home Care Provider Orthopedics 09/11/22 Ned Arnold, PT [address] [place] [address] [employer] Post Acute Care 09/11/22 Poultry Eviscerator Relationship Specialty Start Date End Date Timothy Correa PCP - General Family Medicine 03/01/13 Matthieu Esparza PA-C [address] [place] [address] Referring Orthopedics 09/11/22 Chika Carpenter MD [address] [place] [address] Home Care Provider Orthopedics 09/11/22 Ned Arnold, PT [address] [place] [address] [employer] Post Acute Care 09/11/22 Poultry Eviscerator Relationship Specialty Start Date End Date Timothy Correa PCP - General Family Medicine 03/01/13 Matthieu Esparza PA-C [address] [place] [address] Referring Orthopedics 09/11/22 Chika Carpenter MD [address] [place] [address] Home Care Provider Orthopedics 09/11/22 Ned Arnold, PT [address] [place] [address] [employer] Post Acute Care 09/11/22 Poultry Eviscerator Relationship Specialty Start Date End Date Timothy Correa PCP - General Family Medicine 03/01/13 Matthieu Esparza PA-C [address] [place] [address] Referring Orthopedics 09/11/22 Chika Carpenter MD [address] [place] [address] Home Care Provider Orthopedics 09/11/22 Ned Arnold, PT [address] [facility] [place] [address] [employer] Post Acute Care 09/11/22 Poultry Eviscerator Relationship Specialty Start Date End Date Timothy Correa PCP - General Family Medicine 03/01/13 Matthieu Esparza PA-C [address] [place] [address] Referring Orthopedics 09/11/22 Chika Carpenter MD [address] [place] [address] Home Care Provider Orthopedics 09/11/22 Ned Arnold, PT [address] [place] [address] [employer] Post Acute Care 09/11/22 Poultry Eviscerator Relationship Specialty Start Date End Date Timothy Correa PCP - General Family Medicine 03/01/13 Matthieu Esparza PA-C [address] [place] [address] Referring Orthopedics 09/11/22 Chika Carpenter MD [address] [place] [address] Home Care Provider Orthopedics 09/11/22 Ned Arnold, PT [address] [place] [address] [employer] Post Acute Care 09/11/22 Poultry Eviscerator Relationship Specialty Start Date End Date Timothy Correa PCP - General Family Medicine 03/01/13 Matthieu Esparza PA-C [address] [place] [address] Referring Orthopedics 09/11/22 Chika Carpenter MD [address] [address] Home Care Provider Orthopedics 09/11/22 Ned Arnold, PT [address] [place] [address] [employer] Post Acute Care 09/11/22 Poultry Eviscerator Relationship Specialty Start Date End Date Timothy Correa PCP - General Family Medicine 03/01/13 Matthieu Esparza PA-C [address] [place] [address] Referring Orthopedics 09/11/22 Chika Carpenter MD [address] [place] [address] Home Care Provider Orthopedics 09/11/22 Ned Arnold, PT [address] [place] [address] [employer] Post Acute Care 09/11/22 Poultry Eviscerator Relationship Specialty Start Date End Date Timothy Correa PCP - General Family Medicine 03/01/13 Matthieu Esparza PA-C [address] [place] [address] Referring Orthopedics 09/11/22 Chika Carpenter MD [address] [address] Home Care Provider Orthopedics 09/11/22 Ned Arnold, PT [address] [place] [address] [employer] Post Acute Care 09/11/22 Poultry Eviscerator Relationship Specialty Start Date End Date Timothy Correa PCP - General Family Medicine 03/01/13 Matthieu Esparza PA-C [address] [place] [address] Referring Orthopedics 09/11/22 Chika Carpenter MD [address] [address] Home Care Provider Orthopedics 09/11/22 Ned Arnlod, PT [address] [facility], [place] [phone] [employer] Post Acute Care 09/11/22 Poultry Eviscerator Relationship Specialty Start Date End Date Timothy Correa PCP - General Family Medicine 03/01/13 Rony Doyle, [facility] [address] [place] [address] Specialty Social Science Analyst Orthopedics 07/29/22 10/13/22 Matthieu Esparza PA-C [address] [place] [address] Referring Orthopedics 09/11/22 Chika Carpenter MD [address] [place] [address] Home Care Provider Orthopedics 09/11/22 Ned Arnold, PT [address] [place] [address] [employer] Post Acute Care 09/11/22 Poultry Eviscerator Relationship Specialty Start Date End Date Timothy Correa PCP - General Family Medicine 03/01/13 Rony Doyle [facility] [address] [place] [address] Specialty Social Science Analyst Orthopedics 07/29/22 10/13/22 Matthieu Esparza PA-C [address] [place] [address] Referring Orthopedics 09/11/22 Chika Carpenter MD [address] [place] [address] Home Care Provider Orthopedics 09/11/22 Ned Arnold, PT [address] [facility], [place] [phone] [employer] Post Acute Care 09/11/22 Poultry Eviscerator Relationship Specialty Start Date End Date Timothy Correa MD [address] [facility] [place] [address] PCP - General Family Medicine 11/06/20 Poultry Eviscerator Relationship Specialty Start Date End Date Timothy Correa MD [address] [facility] [place] [address] PCP - General Family Medicine 11/06/20 Poultry Eviscerator Relationship Specialty Start Date End Date Timothy Correa PCP - General Family Medicine 03/01/13 Matthieu Esparza PA-C [address] [place] [address] Referring Orthopedics 09/11/22 Chika Carpenter MD [address] [place] [address] Home Care Provider Orthopedics 09/11/22 Ned Arnold, PT [address] [place] [address] [employer] Post Acute Care 09/11/22 Poultry Eviscerator Relationship Specialty Start Date End Date Timothy Correa M PCP - General Family Medicine 03/01/13 Matthieu Esparza PA-C [address] [place] [address] Referring Orthopedics 09/11/22 Chika Carpenter MD [address] [place] [address] Home Care Provider Orthopedics 09/11/22 Ned Arnold, PT [address] [place] [address] [employer] Post Acute Care 09/11/22 Poultry Eviscerator Relationship Specialty Start Date End Date Timothy Correa M PCP - General Family Medicine 03/01/13 Matthieu Esparza PA-C [address] [place] [address] Referring Orthopedics 09/11/22 Chika Carpenter MD [address] [place] [address] Home Care Provider Orthopedics 09/11/22 Ned Arnold, PT [address] [place] [address] [employer] Post Acute Care 09/11/22 Poultry Eviscerator Relationship Specialty Start Date End Date Timothy Correa M PCP - General Family Medicine 03/01/13 Matthieu Esparza PA-C [address] [place] [address] Referring Orthopedics 09/11/22 Chika Carpenter MD [address] [place] [address] Home Care Provider Orthopedics 09/11/22 Ned Arnold, PT [address] [place] [address] [employer] Post Acute Care 09/11/22 Poultry Eviscerator Relationship Specialty Start Date End Date Timothy Correa PCP - General Family Medicine 03/01/13 Matthieu Esparza PA-C [address] [place] [address] Referring Orthopedics 09/11/22 Chika Carpenter MD [address] [place] [address] Home Care Provider Orthopedics 09/11/22 Ned Arnold, PT [address] [place] [address] [employer] Post Acute Care 09/11/22 Poultry Eviscerator Relationship Specialty Start Date End Date Phill Timothy Coronado PCP - General Family Medicine 03/01/13 Matthieu Esparza PA-C [address] [place] [address] Referring Orthopedics 09/11/22 Chika Carpenter MD [address] [place] [address] Home Care Provider Orthopedics 09/11/22 Ned Arnold, PT [address] [place] [address] [employer] Post Acute Care 09/11/22 Poultry Eviscerator Relationship Specialty Start Date End Date Timothy Correa MD [address] [place] [address] [place] [address] PCP - General Family Medicine 11/06/20 Poultry Eviscerator Relationship Specialty Start Date End Date Timothy Correa PCP - General Family Medicine 03/01/13 Matthieu Esparza PA-C [address] [place] [address] Referring Orthopedics 09/11/22 Chika Carpenter MD [address] [place] [address] Home Care Provider Orthopedics 09/11/22 Ned Arnold, PT [address] [place] [address] [employer] Post Acute Care 09/11/22 Poultry Eviscerator Relationship Specialty Start Date End Date Phill Timothy Coronado PCP - General Family Medicine 03/01/13 Matthieu Esparza PA-C [address] [place] [address] Referring Orthopedics 09/11/22 Chika Carpenter MD [address] [place] [address] Home Care Provider Orthopedics 09/11/22 Ned Arnold, PT [address] [place] [address] J[employer] Post Acute Care 09/11/22 Poultry Eviscerator Relationship Specialty Start Date End Date Timothy Correa PCP - General Family Medicine 03/01/13 Matthieu Esparza PA-C [address] [place] [address] Referring Orthopedics 09/11/22 Chika Carpenter MD [address] [place] [address] [phone] Home Care Provider Orthopedics 09/11/22 Ned Arnold, PT [address] [place] [address] [employer] Post Acute Care 09/11/22 Poultry Eviscerator Relationship Specialty Start Date End Date Timothy Correa MD [address] [place] [address] [place] [address] PCP - General Family Medicine 11/06/20 Poultry Eviscerator Relationship Specialty Start Date End Date Timothy Correa MD [address] [facility] [place] [address] PCP - General Family Medicine 11/06/20 Poultry Eviscerator Relationship Specialty Start Date End Date Timothy Correa MD [address] [facility] [place] [address] PCP - General Family Medicine 11/06/20 Poultry Eviscerator Relationship Specialty Start Date End Date Timothy Correa MD [address] [facility] [place] [address] PCP - General Family Medicine 11/06/20 Poultry Eviscerator Relationship Specialty Start Date End Date Timothy Correa PCP - General Family Medicine 03/01/13 Matthieu Esparza PA-C [address] [place] [address] Referring Orthopedics 09/11/22 Chika Carpenter MD [address] [place] [address] Home Care Provider Orthopedics 09/11/22 Ned Arnold, PT [address] [place] [address] [employer] Post Acute Care 09/11/22 Poultry Eviscerator Relationship Specialty Start Date End Date Phill Timothy Coronado PCP - General Family Medicine 03/01/13 Matthieu Esparza PA-C [address] [place] [address] Referring Orthopedics 09/11/22 Chika Carpenter MD [address] [place] [address]49 Home Care Provider Orthopedics 09/11/22 Ned Arnold, PT [address] [place] [address] [employer] Post Acute Care 09/11/22 Poultry Eviscerator Relationship Specialty Start Date End Date PhillTimothy PCP - General Family Medicine 03/01/13 Rony Doyle, [facility] [address] [place] [address] Specialty Social Science Analyst Orthopedics 07/29/22 10/13/22 Matthieu Esparza PA-C [address] [place] [address] Referring Orthopedics 09/11/22 Chika Carpenter MD [address] [place] [address]14 Home Care Provider Orthopedics 09/11/22 Ned Arnold, PT [address] [place] [address] Jockey [employer]et Post Acute Care 09/11/22 Poultry Eviscerator Relationship Specialty Start Date End Date Timothy Correa PCP - General Family Medicine 03/01/13 Rony Doyle [facility] [address] [place] [address] Specialty Social Science Analyst Orthopedics 07/29/22 10/13/22 Poultry Eviscerator Relationship Specialty Start Date End Date Timothy Correa MD [address] [facility] [place] [address] PCP - General Family Medicine 11/06/20 Poultry Eviscerator Relationship Specialty Start Date End Date Timothy Correa MD [address] [facility] [place] [address] PCP - General Family Medicine 11/06/20 Poultry Eviscerator Relationship Specialty Start Date End Date Timothy Correa MD [address] [facility] [place] [address] PCP - General Family Medicine 11/06/20 Poultry Eviscerator Relationship Specialty Start Date End Date Timothy Correa MD [address] [facility] [place] [address] PCP - General Family Medicine 11/06/20 Poultry Eviscerator Relationship Specialty Start Date End Date Timothy Correa MD [address] [facility] [place] [address] PCP - General Family Medicine 11/06/20 Poultry Eviscerator Relationship Specialty Start Date End Date Timothy Correa MD [address] [facility] [place] [address] PCP - General Family Medicine 11/06/20 Source Comments (unrecognize d section and content) In the event this informatio n is protected by the Federal Confidentiality of Alcohol and Drug Abuse Patient Records regulations: The Federal rules restrict any use of the information to criminally investigate or prosecute any alcohol or drug abuse patient.[facility] the event this information is protected by the Federal Confidentiality of Alcohol and Drug Abuse Patient Records regulations: The Federal rules restrict any use of the information to criminally investigate or prosecute any alcohol or drug abuse patient.[facility] the event this information is protected by the Federal Confidentiality of Alcohol and Drug Abuse Patient Records regulations: The Federal rules restrict any use of the information to criminally investigate or prosecute any alcohol or drug abuse patient.[facility] the event this information is protected by the Federal Confidentiality of Alcohol and Drug Abuse Patient Records regulations: The Federal rules restrict any use of the information to criminally investigate or prosecute any alcohol or drug abuse patient.[facility] the event this information is protected by the Federal Confidentiality of Alcohol and Drug Abuse Patient Records regulations: The Federal rules restrict any use of the information to criminally investigate or prosecute any alcohol or drug abuse patient.[facility] the event this information is protected by the Federal Confidentiality of Alcohol and Drug Abuse Patient Records regulations: The Federal rules restrict any use of the information to criminally investigate or prosecute any alcohol or drug abuse patient.[facility] the event this information is protected by the Federal Confidentiality of Alcohol and Drug Abuse Patient Records regulations: The Federal rules restrict any use of the information to criminally investigate or prosecute any alcohol or drug abuse patient.[facility]In the event this information is protected by the Federal Confidentiality of Alcohol and Drug Abuse Patient Records regulations: The Federal rules restrict any use of the information to criminally investigate or prosecute any alcohol or drug abuse patient.[facility]In the event this information is protected by the Federal Confidentiality of Alcohol and Drug Abuse Patient Records regulations: The Federal rules restrict any use of the information to criminally investigate or prosecute any alcohol or drug abuse patient.[facility] the event this information is protected by the Federal Confidentiality of Alcohol and Drug Abuse Patient Records regulations: The Federal rules restrict any use of the information to criminally investigate or prosecute any alcohol or drug abuse patient.[facility] HospitalIn the event this information is protected by the Federal Confidentiality of Alcohol and Drug Abuse Patient Records regulations: The Federal rules restrict any use of the information to criminally investigate or prosecute any alcohol or drug abuse patient.[facility] HospitalIn the event this information is protected by the Federal Confidentiality of Alcohol and Drug Abuse Patient Records regulations: The Federal rules restrict any use of the information to criminally investigate or prosecute any alcohol or drug abuse patient.[facility] HospitalIn the event this information is protected by the Federal Confidentiality of Alcohol and Drug Abuse Patient Records regulations: The Federal rules restrict any use of the information to criminally investigate or prosecute any alcohol or drug abuse patient.[facility] HospitalIn the event this information is protected by the Federal Confidentiality of Alcohol and Drug Abuse Patient Records regulations: The Federal rules restrict any use of the information to criminally investigate or prosecute any alcohol or drug abuse patient.[facility] HospitalIn the event this information is protected by the Federal Confidentiality of Alcohol and Drug Abuse Patient Records regulations: The Federal rules restrict any use of the information to criminally investigate or prosecute any alcohol or drug abuse patient.[facility] HospitalIn the event this information is protected by the Federal Confidentiality of Alcohol and Drug Abuse Patient Records regulations: The Federal rules restrict any use of the information to criminally investigate or prosecute any alcohol or drug abuse patient.[facility] HospitalIn the event this information is protected by the Federal Confidentiality of Alcohol and Drug Abuse Patient Records regulations: The Federal rules restrict any use of the information to criminally investigate or prosecute any alcohol or drug abuse patient.[facility] HospitalIn the event this information is protected by the Federal Confidentiality of Alcohol and Drug Abuse Patient Records regulations: The Federal rules restrict any use of the information to criminally investigate or prosecute any alcohol or drug abuse patient.[facility] HospitalIn the event this information is protected by the Federal Confidentiality of Alcohol and Drug Abuse Patient Records regulations: The Federal rules restrict any use of the information to criminally investigate or prosecute any alcohol or drug abuse patient.[facility] HospitalIn the event this information is protected by the Federal Confidentiality of Alcohol and Drug Abuse Patient Records regulations: The Federal rules restrict any use of the information to criminally investigate or prosecute any alcohol or drug abuse patient.[facility] HospitalIn the event this information is protected by the Federal Confidentiality of Alcohol and Drug Abuse Patient Records regulations: The Federal rules restrict any use of the information to criminally investigate or prosecute any alcohol or drug abuse patient.[facility] HospitalIn the event this information is protected by the Federal Confidentiality of Alcohol and Drug Abuse Patient Records regulations: The Federal rules restrict any use of the information to criminally investigate or prosecute any alcohol or drug abuse patient.[facility] HospitalIn the event this information is protected by the Federal Confidentiality of Alcohol and Drug Abuse Patient Records regulations: The Federal rules restrict any use of the information to criminally investigate or prosecute any alcohol or drug abuse patient.[facility] HospitalIn the event this information is protected by the Federal Confidentiality of Alcohol and Drug Abuse Patient Records regulations: The Federal rules restrict any use of the information to criminally investigate or prosecute any alcohol or drug abuse patient.[facility] HospitalIn the event this information is protected by the Federal Confidentiality of Alcohol and Drug Abuse Patient Records regulations: The Federal rules restrict any use of the information to criminally investigate or prosecute any alcohol or drug abuse patient.[facility] HospitalIn the event this information is protected by the Federal Confidentiality of Alcohol and Drug Abuse Patient Records regulations: The Federal rules restrict any use of the information to criminally investigate or prosecute any alcohol or drug abuse patient.[facility] HospitalIn the event this information is protected by the Federal Confidentiality of Alcohol and Drug Abuse Patient Records regulations: The Federal rules restrict any use of the information to criminally investigate or prosecute any alcohol or drug abuse patient.[facility] HospitalIn the event this information is protected by the Federal Confidentiality of Alcohol and Drug Abuse Patient Records regulations: The Federal rules restrict any use of the information to criminally investigate or prosecute any alcohol or drug abuse patient.[facility] HospitalIn the event this information is protected by the Federal Confidentiality of Alcohol and Drug Abuse Patient Records regulations: The Federal rules restrict any use of the information to criminally investigate or prosecute any alcohol or drug abuse patient.[facility] HospitalIn the event this information is protected by the Federal Confidentiality of Alcohol and Drug Abuse Patient Records regulations: The Federal rules restrict any use of the information to criminally investigate or prosecute any alcohol or drug abuse patient.[facility] HospitalIn the event this information is protected by the Federal Confidentiality of Alcohol and Drug Abuse Patient Records regulations: The Federal rules restrict any use of the information to criminally investigate or prosecute any alcohol or drug abuse patient.[facility]In the event this information is protected by the Federal Confidentiality of Alcohol and Drug Abuse Patient Records regulations: The Federal rules restrict any use of the information to criminally investigate or prosecute any alcohol or drug abuse patient.[facility] HospitalIn the event this information is protected by the Federal Confidentiality of Alcohol and Drug Abuse Patient Records regulations: The Federal rules restrict any use of the information to criminally investigate or prosecute any alcohol or drug abuse patient.[facility] HospitalIn the event this information is protected by the Federal Confidentiality of Alcohol and Drug Abuse Patient Records regulations: The Federal rules restrict any use of the information to criminally investigate or prosecute any alcohol or drug abuse patient.[facility] HospitalIn the event this information is protected by the Federal Confidentiality of Alcohol and Drug Abuse Patient Records regulations: The Federal rules restrict any use of the information to criminally investigate or prosecute any alcohol or drug abuse patient.[facility] HospitalIn the event this information is protected by the Federal Confidentiality of Alcohol and Drug Abuse Patient Records regulations: The Federal rules restrict any use of the information to criminally investigate or prosecute any alcohol or drug abuse patient.[facility] HospitalIn the event this information is protected by the Federal Confidentiality of Alcohol and Drug Abuse Patient Records regulations: The Federal rules restrict any use of the information to criminally investigate or prosecute any alcohol or drug abuse patient.[facility] HospitalIn the event this information is protected by the Federal Confidentiality of Alcohol and Drug Abuse Patient Records regulations: The Federal rules restrict any use of the information to criminally investigate or prosecute any alcohol or drug abuse patient.[facility] HospitalIn the event this information is protected by the Federal Confidentiality of Alcohol and Drug Abuse Patient Records regulations: The Federal rules restrict any use of the information to criminally investigate or prosecute any alcohol or drug abuse patient.[facility] HospitalIn the event this information is protected by the Federal Confidentiality of Alcohol and Drug Abuse Patient Records regulations: The Federal rules restrict any use of the information to criminally investigate or prosecute any alcohol or drug abuse patient.[facility] HospitalIn the event this information is protected by the Federal Confidentiality of Alcohol and Drug Abuse Patient Records regulations: The Federal rules restrict any use of the information to criminally investigate or prosecute any alcohol or drug abuse patient.[facility] HospitalIn the event this information is protected by the Federal Confidentiality of Alcohol and Drug Abuse Patient Records regulations: The Federal rules restrict any use of the information to criminally investigate or prosecute any alcohol or drug abuse patient.[facility] HospitalIn the event this information is protected by the Federal Confidentiality of Alcohol and Drug Abuse Patient Records regulations: The Federal rules restrict any use of the information to criminally investigate or prosecute any alcohol or drug abuse patient.[facility] HospitalIn the event this information is protected by the Federal Confidentiality of Alcohol and Drug Abuse Patient Records regulations: The Federal rules restrict any use of the information to criminally investigate or prosecute any alcohol or drug abuse patient.[facility] HospitalIn the event this information is protected by the Federal Confidentiality of Alcohol and Drug Abuse Patient Records regulations: The Federal rules restrict any use of the information to criminally investigate or prosecute any alcohol or drug abuse patient.[facility] HospitalIn the event this information is protected by the Federal Confidentiality of Alcohol and Drug Abuse Patient Records regulations: The Federal rules restrict any use of the information to criminally investigate or prosecute any alcohol or drug abuse patient.[facility] HospitalIn the event this information is protected by the Federal Confidentiality of Alcohol and Drug Abuse Patient Records regulations: The Federal rules restrict any use of the information to criminally investigate or prosecute any alcohol or drug abuse patient.[facility] HospitalIn the event this information is protected by the Federal Confidentiality of Alcohol and Drug Abuse Patient Records regulations: The Federal rules restrict any use of the information to criminally investigate or prosecute any alcohol or drug abuse patient.[facility] HospitalIn the event this information is protected by the Federal Confidentiality of Alcohol and Drug Abuse Patient Records regulations: The Federal rules restrict any use of the information to criminally investigate or prosecute any alcohol or drug abuse patient.[facility] HospitalIn the event this information is protected by the Federal Confidentiality of Alcohol and Drug Abuse Patient Records regulations: The Federal rules restrict any use of the information to criminally investigate or prosecute any alcohol or drug abuse patient.[facility] HospitalIn the event this information is protected by the Federal Confidentiality of Alcohol and Drug Abuse Patient Records regulations: The Federal rules restrict any use of the information to criminally investigate or prosecute any alcohol or drug abuse patient.[facility] HospitalIn the event this information is protected by the Federal Confidentiality of Alcohol and Drug Abuse Patient Records regulations: The Federal rules restrict any use of the information to criminally investigate or prosecute any alcohol or drug abuse patient.[facility] HospitalIn the event this information is protected by the Federal Confidentiality of Alcohol and Drug Abuse Patient Records regulations: The Federal rules restrict any use of the information to criminally investigate or prosecute any alcohol or drug abuse patient.[facility] HospitalIn the event this information is protected by the Federal Confidentiality of Alcohol and Drug Abuse Patient Records regulations: The Federal rules restrict any use of the information to criminally investigate or prosecute any alcohol or drug abuse patient.[facility] HospitalIn the event this information is protected by the Federal Confidentiality of Alcohol and Drug Abuse Patient Records regulations: The Federal rules restrict any use of the information to criminally investigate or prosecute any alcohol or drug abuse patient.[facility] HospitalIn the event this information is protected by the Federal Confidentiality of Alcohol and Drug Abuse Patient Records regulations: The Federal rules restrict any use of the information to criminally investigate or prosecute any alcohol or drug abuse patient.[facility] HospitalIn the event this information is protected by the Federal Confidentiality of Alcohol and Drug Abuse Patient Records regulations: The Federal rules restrict any use of the information to criminally investigate or prosecute any alcohol or drug abuse patient.[facility] HospitalIn the event this information is protected by the Federal Confidentiality of Alcohol and Drug Abuse Patient Records regulations: The Federal rules restrict any use of the information to criminally investigate or prosecute any alcohol or drug abuse patient.[facility] HospitalIn the event this information is protected by the Federal Confidentiality of Alcohol and Drug Abuse Patient Records regulations: The Federal rules restrict any use of the information to criminally investigate or prosecute any alcohol or drug abuse patient.[facility] FOR RECORDS PERTAINING TO PATIENTS WHO [...] BE BASED ON THE PRIMARY CLINICAL RECORDS. [facility] [employer] [facility] provides no warranty or guarantee of the accuracy or completeness of information in this document.
[2025-02-05] MEDS: CLARIFY ORDER NOTE (17:17)
[2025-02-05] MEDS: 0.9% Normal Saline (1000mL) 1,000 ML 100 ML IV (17:21)
[2025-02-05] MEDS: 0.9% Normal Saline (250mL Bag) 250 ML 15 ML IV (21:08)
[2025-02-05] MEDS: Acetaminophen 500 MG Tablet 1000 MG PO (21:12)
[2025-02-06] VITALS (15 sets, daily range): BP systolic 114–164; BP diastolic 70–95; PULSE 64–84; RESP 16–18; TEMP 36.3–37.1; O2SAT 92–98; BMI 31.1
[2025-02-06] MEDS: 0.9% Normal Saline (1000mL) 1,000 ML 100 ML IV ×2 (00:13→12:44)
[2025-02-06 05:52] LABS: Absolute Lymphocyte Count 2.11 X10^3/uL (0.83-4.51); Basophil# 0.07 X10^3/uL; Eosinophil# 0.27 X10^3/uL; Eosinophils% 3.7 % (0-5); Hematocrit 38.8 % (40-54); Hemoglobin 13.2 g/dL (13.0-16.5); Lymphocyte # 2.11 X10^3/ul (0.83-4.51); Lymphocyte % 28.8 % (19-41); Mean Corpuscular Hgb 26.6 pg (27.0-32.0); Mean Corpuscular Volume 78.1 fL (80-94); Monocyte# 0.83 X10^3/uL; Monocyte% 11.3 % (0-10); NRBC Flagged by Analyzer 0 % (0-5); Neutrophil # 4.01 X10^3/uL (2.7-7.7); Neutrophil % 54.8 % (47-70); Platelet Count 295 K/mm3 (150-450); RBC Distribution Width CV 16.9 % (11.6-14.6); RBC Distribution Width SD 47.7 fl (35.1-43.9); Red Blood Count 4.97 M/mm3 (4.6-6.2); White Blood Count 7.3 K/mm3 (4.4-11.0)
[2025-02-06 06:10] LABS: Hemoglobin A1c 5.8 % (<=5.6); International Normalized Ratio 1.1; Partial Thromboplast Time 29.6 Seconds (24.1-36.2)
[2025-02-06] MEDS: Piperacil/Tazobactam 3.375 GM in 0.9% Normal Saline (50mL MB+) 50 ML IV ×2 (06:13→14:10)
[2025-02-06 06:22] LABS: ALB/GLOB Ratio 1.7 RATIO (0.9-2.4); AST(SGOT) 21 U/L (<=37); Alanine Aminotransfer ALT/SGPT 18 U/L (<=46); Albumin, Serum 3.9 g/dL (3.4-4.8); Alkaline Phosphatase 64 U/L (40-129); Anion Gap 11 (5-15); BUN 6 mg/dL (4-19); BUN/Creat Ratio 9.6 RATIO (10-20); Calcium,Total 8.4 mg/dL (7.6-11.0); Carbon Dioxide 21.8 mmol/L (21.0-32.0); Chloride 107 mmol/L (98-108); Creatinine, Serum 0.58 mg/dL (0.70-1.20); EST Glomerular Filtration Rate 108 (>60); Estimated Creatinine Clearance 111.59 ml/min (50-250); Globulin 2.3 g/dL (2.2-4.2); Glucose 102 mg/dL (70-99); Potassium 3.5 mmol/L (3.3-5.1); Protein, Total 6.2 g/dL (5.9-8.4); Sodium Level 140 mmol/L (133-145); Total Bilirubin 0.78 mg/dL (0.00-1.30)
[2025-02-06 06:35] LABS: Bedside Glucose 107 mg/dL (74-106)
[2025-02-06] MEDS: Ipratropium/Albuterol Sulfate 3 ML AMPUL.NEB INHALATION (07:19)
--- NOTE | 2025-02-06 07:41 | HP.PCM_ITS ---
HPI - General General Date of Admission: 02/05/25 Date of Service: 02/06/25 HPI Narrative ENRICO OSBORN, is a 64 M who presented to the [facility] emergency department last evening with complaints of right upper quadrant pain for the past couple of days. It sounds as though this pain may have been present for a longer period of time however it certainly worsened within the last few days. Patient was seen and evaluated by the ER staff. White blood cell count and the rest of his labs were all normal. He initially underwent a CT scan that was unremarkable. He continued to have right upper quadrant pain in the ER and so an ultrasound was then performed. He did have mild gallbladder wall thickening on ultrasound along with stones. Patient was subsequent admitted with plans for cholecystectomy. This morning he states his pain is much improved [facility] Medical History Abdominal wall asymmetry Spigelian hernia Fusion 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 Home Medications ?Medication ?Instructions ?Recorded ?Last Taken ?Type amlodipine 10 mg-benazepril 20 mg 1 cap PO QDAY Unknown History capsule esomeprazole magnesium 40 mg 40 mg PO QDAY 06/14/24 Un known History capsule,delayed release rosuvastatin 10 mg tablet 10 mg PO QDAY 06/14/24 Unkno wn History umeclidinium 62.5 mcg-vilanterol 1 inh inhalation QDAY 06/14/24 Unknown History 25 mcg/actuation powdr for inhalation (Anoro Ellipta) tirzepatide 5 mg/0.5 mL 5 mg subcut [place] 02/05/2501/10 History subcutaneous pen injector (Mounjaro) Allergy/AdvReac Type Severity Reaction Status Date / Time codeine AdvReac Itching Verified 09/10/24 08:08 morphine AdvReac Itching Verified 06/14/24 08:00 Family History Mother No problems noted. Father , 47 yrs old Myocardial infarction Surgical History History of left knee replacement Hx of tonsillectomy Previous back surgery Social History current occupational status: retired Smoking Status: Former smoker quit date: 08/11/09 alcohol intake: current details: seldom caffeine: No do you feel safe at home: Yes ROS Constitutional Constitutional: Reports systems reviewed and no addt'l complaints, except as documented Eyes Eyes: Reports systems reviewed and no addt'l complaints, except as documented ENT HEENT: Reports systems reviewed and no addt'l complaints, except as documented Cardiovascular Cardiovascular: Reports systems reviewed and no addt'l complaints, except as documented Respiratory/Chest Respiratory/Chest: Reports systems reviewed and no addt'l complaints, except as documented Gastrointestinal Gastrointestinal: Reports systems reviewed and no addt'l complaints, except as documented Vital Signs Vital Signs Vital Signs: 02/05/25 09:24 02/05/25 11:24 02/05/25 13:00 Temperature 97.9 F Temperature Source Temporal Pulse Rate 72 65 69 Respiratory Rate 16 16 20 H Respiratory Effort Respiratory Depth Respiratory Pattern Blood Pressure 139/76 H 128/82 H 135/89 H Blood Pressure Mean 97 97 104 Blood Pressure Source Blood Pressure Position Blood Pressure Location Pulse Ox 96 99 96 Oxygen Delivery Method Room Air Room Air 02/05/25 15:03 02/05/25 15:40 02/05/25 15:41 Temperature 97.8 F 97.8 F Temperature Source Temporal Pulse Rate 69 69 69 Respiratory Rate 18 18 18 Respiratory Effort Respiratory Depth Respiratory Pattern Blood Pressure 118/79 118/79 118/79 Blood Pressure Mean 92 92 92 Blood Pressure Source Blood Pressure Position Blood Pressure Location Pulse Ox 98 98 98 Oxygen Delivery Method 02/05/25 16:50 02/05/25 17:22 02/05/25 17:23 Temperature 98.2 F 98.2 F Temperature Source Temporal Temporal Pulse Rate 72 72 Respiratory Rate 16 16 Respiratory Effort Normal Non-Labored Respiratory Depth Normal Respiratory Pattern Normal Blood Pressure 139/76 H 139/76 H Blood Pressure Mean 97 97 Blood Pressure Source Monitor Blood Pressure Position Semi-Fowlers Blood Pressure Location Right Arm Pulse Ox 97 97 Oxygen Delivery Method Room Air Room Air Room Air 02/05/25 19:56 02/05/25 20:26 02/05/25 21:05 Temperature 97.7 F L Temperature Source Oral Pulse Rate 66 Respiratory Rate 18 Respiratory Effort Normal Respiratory Depth Normal Respiratory Pattern Normal Blood Pressure 125/75 H Blood Pressure Mean 91 Blood Pressure Source Blood Pressure Position Blood Pressure Location Pulse Ox 98 94 Oxygen Delivery Method Room Air Room Air Room Air 02/06/25 00:10 02/06/25 00:16 02/06/25 06:12 Temperature 97.6 F L 97.6 F L Temperature Source Oral Oral Pulse Rate 66 67 Respiratory Rate 16 18 Respiratory Effort Respiratory Depth Respiratory Pattern Blood Pressure 121/73 H 130/95 H Blood Pressure Mean 89 106 Blood Pressure Source Monitor Blood Pressure Position Semi-Fowlers Blood Pressure Location Right Arm Pulse Ox 94 98 Oxygen Delivery Method Room Air Room Air Room Air 02/06/25 07:19 02/06/25 07:19 Temperature Temperature Source Pulse Rate 68 Respiratory Rate 18 Respiratory Effort Respiratory Depth Respiratory Pattern Blood Pressure Blood Pressure Mean Blood Pressure Source Blood Pressure Position Blood Pressure Location Pulse Ox 96 Oxygen Delivery Method Room Air Weight Weight: 223 lb 5.252 oz Body Mass Index (BMI) 31.1 Physical Exam Narrative He is alert and oriented x 3. He is in no acute distress. Head is normocephalic and atraumatic Pupils equal round and reactive to light. Abdomen is soft and nondistended. There is mild tenderness in the right upper quadrant. No rebound or guarding. Results Lab / Micro Data 02/06/25 05:35 02/06/25 05:35 Labs: Laboratory Results - last 24 hr 02/05/25 09:35: WBC 9.0, RBC 5.27, Hgb 13.9, Hct 41.6, MCV 78.9 L, MCH 26.4 L, MCHC 33.4, RDW Std Deviation 49.0 H, RDW Coeff of Jarvis 17.3 H, Plt Count 339, MPV 9.3, Immature Gran % (Auto) 0.300, Neut % (Auto) 54.5, Lymph % (Auto) 30.2, [place] % (Auto) 11.5 H, Eos % (Auto) 2.8, Baso % (Auto) 0.7, Absolute Neuts (auto) 4.9, Absolute Lymphs (auto) 2.72, Nucleated RBC % 0, Sodium 136, Potassium 4.2, Chloride 101, Carbon Dioxide 22.8, Anion Gap 12, BUN 7, Creatinine 0.76, Estim Creat Clear Calc 113.02, Est GFR (MDRD) Non-Af 100, BUN/Creatinine Ratio 8.6 L, Glucose 143 H, Calcium 8.8, Total Bilirubin 0.41, AST 24, ALT 19, Alkaline Phosphatase 82, Total Protein 7.0, Albumin 4.3, Globulin 2.7, Albumin/Globulin Ratio 1.6, Lipase 21 02/05/25 11:28: Urine Color Straw, Urine Clarity Clear, Urine pH 7.0, Ur Specific [place] 1.005, Urine Protein 15 H, Urine Glucose (UA) Normal, Urine Ketones Negative, Urine Occult Blood Negative, Urine Nitrite Negative, Urine Bilirubin Negative, Urine Urobilinogen Normal, Ur Leukocyte Esterase Negative, Urine RBC 0 SEEN, Urine WBC 0-5 SEEN, Ur Squamous Epith Cells 0 SEEN, Urine Bacteria 0 SEEN, Urine Mucus 0 SEEN 02/06/25 05:35: WBC 7.3, RBC 4.97, Hgb 13.2, Hct 38.8 L, MCV 78.1 L, MCH 26.6 L, MCHC 34.0, RDW Std Deviation 47.7 H, RDW Coeff of Jarvis 16.9 H, Plt Count 295, MPV 9.0, Immature Gran % (Auto) 0.400, Neut % (Auto) 54.8, Lymph % (Auto) 28.8, [place] % (Auto) 11.3 H, Eos % (Auto) 3.7, Baso % (Auto) 1.0, Absolute Neuts (auto) 4.0, Absolute Lymphs (auto) 2.11, Nucleated RBC % 0, PT 14.0, INR 1.1, APTT 29.6, Sodium 140, Potassium 3.5, Chloride 107, Carbon Dioxide 21.8, Anion Gap 11, BUN 6, Creatinine 0.58 L, Estim Creat Clear Calc 111.59, Est GFR (MDRD) Non-Af 108, BUN/Creatinine Ratio 9.6 L, Glucose 102 H, Hemoglobin A1c 5.8 H, Calcium 8.4, Total Bilirubin 0.78, AST 21, ALT 18, Alkaline Phosphatase 64, Total Protein 6.2, Albumin 3.9, Globulin 2.3, Albumin/Globulin Ratio 1.7 02/06/25 06:10: POC Glucose 107 H Imaging Radiology Impression Abdomen/Pelvis CT 02/05/25 10:10 IMPRESSION: No acute intra-abdominal process. Colonic diverticulosis without acute diverticulitis. No bowel obstruction. Cholelithiasis without CT evidence of acute cholecystitis. Reading Location: [facility] Gallbladder Ultrasound 02/05/25 13:10 IMPRESSION: Acute cholecystitis with cholelithiasis. Hepatic steatosis. Reading Location: [id number] Assessment & Plan Assessment/Plan (1) Acute cholecystitis: PLAN: Plan The patient is a 64-year-old male with right upper quadrant pain, gallstones and mild gallbladder wall thickening. I have offered him a laparoscopic cholecystectomy as treatment. We discussed the details of the planned procedure as well as risks benefits and alternatives. He wishes to proceed. Surgery should begin momentarily Charges/Coding Visit Charges Inpatient E&M: 28597 Init Hosp L3
--- NOTE | 2025-02-06 08:20 | GALL_PTH ---
PATIENT: ENRICO OSBORN LOC: [facility] U#:[id number] AGE/SX: 64/M ROOM: DE316 RE02/05/[address]: Dr. Bunny Mahoney MD : 1960 BED: 1 DIS: 02/06/2025 SPEC #: [id number] RECD: 02/07/25 06:57 STATUS: LAURA CONTRERAS #: [id number] TEMITOPE: 02/06/25 08:[address]: Bunny Mahoney DEPT: SURGICAL PATHOLOGY RECD BY: Dre Guzman ENTERED: 02/07/25 09:42 SP TYPE: BENITA OGDEN DR: Dr. Edmundo Pollock MD Tissues: A - Gallbladder, NOS Procedures: Surgery Specimen Level III HEADER OPERATION: Laparoscopic cholecystectomy with IOC PRE-OP DIAGNOSIS: Acute cholecystitis TISSUE SUBMITTED: A- Gallbladder MICROSCOPIC DIAGNOSIS A. Gallbladder, acute cholecystitis, cholecystectomy: - Acute on chronic cholecystitis with cholelithiasis. - Benign reactive pericystic lymph node x1. MICROSCOPIC DESCRIPTION Slides are reviewed. GROSS DESCRIPTION A. Received in formalin labeled with the patient's name and date of . Designated as gallbladder is a 7.3 x 3.0 x 1.7 cm awad-pink to fatty, focally disrupted gallbladder with attached patent cystic duct (inked black, shaved). A 1.3 cm lymph node is present. Opening reveals minimal tenacious bile and multiple irregular, friable and pigmented choleliths, ranging <0.1 cm to 0.6 cm cm. The mucosa is awad-pink to red with somewhat irregular folding and with a maximum wall thickness of 0.4 cm. Cholesterolosis is not present. Endodontics Dentist sections are submitted in 2 cassettes. [place] 02/07/2025 CPT:25851
--- NOTE | 2025-02-06 08:35 | PCM.PRE.AN2 ---
ASA Classification* ASA Classification ASA Classification: 2 Assessment & Plan Anesthesia* Anesthesia Assessment Anesthesia Assessment: Discussed sedation and/or anesthesia options, risks, benefits, and alternatives with patient/parents/legal guardian/POA. Questions invited. The patient/parents/legal guardian/POA seems to understand and agrees to proceed with anesthesia plan. Reviewed the physical assessment, medical history, allergy history and patient home medications list prior to surgery/procedure/anesthetic and documented any changes. Performed airway and anesthesia risk assessments. Anesthesia Type Anesthesia Type: General (EKG; SB/ Stress test >2 yrs ago prior to back fusion,neg, plan :GS intubation) Anesthesia Focused Assessment* Temperature: 97.6 F Pulse Rate: 68 Blood Pressure: 130/95 Respiratory Rate: 18 Pulse Ox: 96 Airway Assessment Mouth opens: >3 cm Mallampati Score: III Labs Anesthesia Preop lab: CBC WBC 7.3 K/mm3 (4.4-11.0) 02/06/25 05:35 02/06/25 RBC 4.97 M/mm3 (4.6-6.2) 02/06/25 05:35 02/06/25 Hgb 13.2 g/dL (13.0-16.5) 02/06/25 05:35 02/06/25 Hct 38.8 % (40-54) L 02/06/25 05:35 02/06/25 Plt Count 295 K/mm3 (150-450) 02/06/25 05:35 02/06/25 CHEMISTRY Potassium 3.5 mmol/L (3.3-5.1) 02/06/25 05:35 02/06/25 Sodium 140 mmol/L (133-145) 02/06/25 05:35 02/06/25 BUN 6 mg/dL (4-19) 02/06/25 05:35 02/06/25 Creatinine 0.58 mg/dL (0.70-1.20) L 02/06/25 05:35 02/06/25 Glucose 102 mg/dL (70-99) H 02/06/25 05:35 02/06/25 POC Glucose 107 mg/dL (74-106) H 02/06/25 06:10 02/06/25 COAG PT 14.0 SECONDS (11.7-14.9) 02/06/25 05:35 02/06/25 Pre-Assessment Diagnosis/Proposed Procedure Planned Operative Procedure(s): lap josiane Anesthesia History Anesthesia History - weighmaster lead: Anesthesia History - weighmaster lead Hx Hospitalization Any Problems With Anesthesia No 02/06/25 00:06 Cholinesterase deficiency No 02/06/25 00:06 You/Your Family Experience No 02/06/25 00:06 fever (hyperthermia) with Relationship Recent Exposure to Contagious No 02/06/25 00:06 Disease Does patient have nerve No 02/06/25 00:06 stimulator Patient instructed to have device shut off --Does patient have Pacemaker No 02/06/25 06:12 or ICD? When Was Last Pacemaker Check QUESTION #4 FULL TEXT: You/Your Family Experience fever (hyperthermia) with Anesthesia Last Oral Intake Last Oral intake: Last Oral Intake NPO since 21:30 02/06/25 06:12 Meds taken in AM with sips of No 02/06/25 06:12 water? Meds patient instructed to take am of surgery PONV PONV - weighmaster lead: PONV - weighmaster lead Female HX of Motion Sickness HX of N/V After Surgery Non-Smoker Duration of Surgery greater than 60 minutes Number of Risk Factors PONV Score Height & Weight Height & Weight: Anesthesia: Height & Weight Height 5 ft 11 in 02/06/25 06:12 Weight: 101.3 kg 02/06/25 06:12 Body Mass Index (BMI) 31.1 02/06/25 06:12 Respiratory Assessment Respiratory Assessment - weighmaster lead: Respiratory Tract Infection Hx - weighmaster lead Hx Respiratory Tract Infection No 02/06/25 00:06 STOP Sleep Apnea STOP Sleep Apnea - weighmaster lead: STOP Sleep Apnea - weighmaster lead Hx Hypertension Yes 02/05/25 16:43 Hx Sleep Apnea No 02/05/25 16:43 CPAP BIPAP Do you snore loudly (louder No 02/05/25 16:43 than talking or can be heard Do you often feel tired/ No 02/05/25 16:43 fatigued/ sleepy during daytime? Has anyone observed you stop No 02/05/25 16:43 breathing during sleep? STOP Results Negative 02/05/25 16:43 QUESTION #5 FULL TEXT : Do you snore loudly (louder than talking or can be heard through closed doors)? 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 Specify any problems Hx of Preganancy in last 3 N/A 02/05/25 16:43 Months Nurse Filling Out Transfusion ABROCK 02/05/25 16:43 & Questions: Date: 02/05/25 02/05/25 16:43 Time: 16:56 02/05/25 16:43 Patient unable to answer at this time (ie. confused, unrespo /Reproduction History /Reproductive History - weighmaster lead: /Reproductive Hx- weighmaster lead Hx Now Gestational Age (in weeks): EDC: Hx Hx Para Hx Section SAB Active Medications Active Medications: Current Medications Generic Name Dose Route Start Last Admin Trade Name Freq PRN Reason Stop Dose Admin Acetaminophen 1,000 mg 02/05/25 22:00 02/05/25 21:20 Acetaminophen 500 Mg Tablet PO Not Given Q8 PATY Albuterol Sulfate 2.5 mg 02/05/25 17:43 Albuterol 2.5 Mg/3 Ml Vial.Neb. INHALATION Q2H PRN PRN WHEEZING Albuterol/Ipratropium 3 ml 02/05/25 16:45 02/06/25 07:19 Ipratropium/Albuterol Sulfate 3 Ml Ampul.Neb INHALATION 3 ml Q6HWA.RT PATY Administration Amlodipine Besylate 10 mg 02/06/25 10:00 Amlodipine 10 Mg Tablet PO DAILY PATY Clarify Med Order 0 each 02/05/25 20:00 02/05/25 17:17 Clarify Order NOTE 1 each CLARIFY PATY Administration Gabapentin 600 mg 02/05/25 22:00 02/05/25 21:20 Gabapentin 600 Mg Tablet PO Not Given TID PATY Sodium Chloride 1,000 mls @ 100 mls/hr 02/05/25 16:34 02/06/25 00:13 IV 100 mls/hr .Q10H PATY Administration Piperacillin Sod/Tazobactam 50 mls @ 12.5 mls/hr 02/05/25 22:00 02/06/25 06:13 Sod 3.375 gm/ Sodium Chloride IV 12.5 mls/hr Q8 PATY Administration Sodium Chloride 250 mls @ 15 mls/hr 02/05/25 17:00 02/05/25 21:10 IV 0 mls/hr .[id number] PRN Infusion Saline Flush Sodium Chloride 250 mls @ 15 mls/hr 02/05/25 17:00 IV .[id number] PRN Additional IVPB Infusion Lisinopril 20 mg 02/06/25 10:00 Lisinopril 20 Mg Tablet PO DAILY [facility] Morphine Sulfate 2 - 4 mg 02/05/25 16:34 Morphine 2 Mg/Ml Syringe IV Q3H PRN PRN Pain Score 6-10 Morphine Sulfate 2 - 4 mg 02/05/25 16:44 Morphine 4 Mg/Ml Syringe IV Q3H PRN PRN Pain Score 6-10 Non-Formulary Medication 40 mg 02/05/25 22:00 Isotretinoin PO BID [facility] Ondansetron HCl 4 mg 02/05/25 16:34 Ondansetron 4 Mg/2 Ml Vial IV Q8H PRN PRN NAUSEA/VOMITING Oxycodone HCl 5 mg 02/05/25 16:34 Oxycodone 5 Mg Tablet PO Q4H PRN PRN Pain Score 4-10 Pantoprazole Sodium 40 mg 02/06/25 10:00 Pantoprazole Sodium 40 Mg Tablet PO DAILY [facility] Sodium Chloride 10 - 40 ml 02/05/25 17:00 0.9% Saline Lock 10 Ml Syringe IV UD PRN SALINE FLUSH PFSH Medical History Abdominal wall asymmetry Spigelian hernia Fusion 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 Home Medications ?Medication ?Instructions ?Recorded ?Last Taken ?Type amlodipine 10 mg-benazepril 20 mg 1 cap PO QDAY 06/14/24 Unknown History capsule esomeprazole magnesium 40 mg 40 mg PO QDAY 06/14/24 Unknown History capsule,delayed release rosuvastatin 10 mg tablet 10 mg PO QDAY 06/14/24 Unknown History umeclidinium 62.5 mcg-vilanterol 1 inh inhalation QDAY 06/14/24 Unknown History 25 mcg/actuation powdr for inhalation (Anoro Ellipta) tirzepatide 5 mg/0.5 mL 5 mg subcut STANTON 02/05/25 01/30/25 History subcutaneous pen injector (Mounjaro) Allergy/AdvReac Type Severity Reaction Status Date / Time codeine AdvReac Itching Verified 09/10/24 08:08 morphine AdvReac Itching Verified 06/14/24 08:00 Family History Mother No problems noted. Father , 47 yrs old Myocardial infarction Surgical History History of left knee replacement Hx of tonsillectomy Previous back surgery Social History current occupational status: retired Smoking Status: Former smoker quit date: 08/11/09 alcohol intake: current details: seldom caffeine: No do you feel safe at home: Yes Review of Systems (Anesthesia) ROS Narrative System reviewed and no additional complaints, except as documented.
--- NOTE | 2025-02-06 08:40 | RAD_ITS ---
PROCEDURE: CHOLANGIOGRAM/ O R,INITIAL 02/06/2025 REASON FOR EXAM: LAP AGUILA W/ GRAMS Fluoroscopy provided for cholangiogram performed in the OR TECHNIQUE: CHOLANGIOGRAM/ O R,INITIAL Fluoroscopy time: 5.65 seconds Dose: 2.[address] abdomen pelvis / COMPARISON: CT abdomen pelvis from January 29, 2020 ultrasound exam from February 06, 2020. FINDINGS: Fluoroscopy is provided for cholangiogram performed in the OR. The cystic duct cannulated and there was injection of IV contrast into the cystic duct. Approximately 30 frames of imaging were documented venous filling defect in the common bile duct. RAD/Cholangiogram/ O R,Initial IMPRESSION: Fluoroscopy provided for intraoperative cholangiogram. For complete details, s ee the operative report. Reading Location: [facility]
[2025-02-06] MEDS: Bupiv/Epi 0.25% 30 ML Vial (09:36)
--- NOTE | 2025-02-06 09:40 | OP.PCM_ITS ---
Procedures Digestive [id number]-49xxx: [id number] Laparo cholecystectomy/graph Operative Report (Standard) Operative Information Date of Procedure: 02/06/25 Pre-Operative Diagnosis: Acute cholecystitis/cholelithiasis Post-Operative Diagnosis: Same Surgery/Procedure Performed: Laparoscopic cholecystectomy with intraoperative cholangiograms payer specialist: Yes Calender Inspector: Angel Adam Tasks completed by billing and accounting staff assistant: Closing, Trocar and Other Additional health education assistant?: No Type of Anesthesia: General and Local RN Documented Start/Stop Times: Operation Date: 02/06/25 08:20 Case Time Anesthesia Start 02/06/25 08:06 Into Room 02/06/25 08:06 Procedure Start 02/06/25 08:32 Procedure End 02/06/25 09:41 Anesthesia End 02/06/25 09:49 Out of Room 02/06/25 09:49 Into Recovery 02/06/25 09:52 Procedure Start Time: 08:32 Procedure Stop Time: 09:41 Select all DRAINS/GRAFTS/IMPLANTS that apply: None Special Medications: IV Zosyn Estimated Blood Loss: 5 mL Specimen collected: Yes Description of specimen(s) removed: Gallbladder Description of surgery: The patient is a 64-year-old male who presented last evening to the emergency department with right upper quadrant pain. He was found to have acute cholecystitis. He was subsequently admitted with plans for cholecystectomy. We discussed the details of the planned procedure as well as risks benefits and alternatives. He wished to proceed. He was brought to the operative room today following informed consent. Antibiotics were being given. A timeout was performed. He was placed supine on the operative table with arms outstretched on arm boards. A general endotracheal anesthesia was induced. Once adequately sedated the abdomen was then prepped and draped in the usual sterile manner. A 5 mm incision was made just below the umbilicus through which a 5 mm trocar was placed optically. This was placed without incident. Once in place the abdomen is then fully insufflated with CO2 gas and a 5 mm 0 degree scope was inserted. There were no signs of bowel or vascular injury. Next two 5 mm trocars were placed under direct visualization in the right upper quadrant. A 10 mm trocar was placed in the epigastric area. All of these trocars were placed without difficulty and under direct visualization. The gallbladder was identified and was reflected in the cephalad direction. There was mild edema. The peritoneum on either side of the gallbladder was then scored using electrocautery and a J- hook. The infundibulum of the gallbladder was then dissected out. The cystic duct and cystic artery were dissected out circumferentially. I was able to dissect the lower aspect of the gallbladder off of the undersurface of the liver, thus creating a critical view of safety. There were 2 and only 2 obvious structures going to and from the gallbladder. The cystic duct was addressed first. A 10 mm clip was placed on the gallbladder side of the cystic duct. A small ductotomy was made. Cholangiogram catheter was then inserted and cholangiograms were then performed under fluoroscopy. This showed good opacification of the biliary tree without any obvious filling defects. The cholangiogram catheter was then removed. 10 mm clips x 4 were applied to the cystic duct stump. The cystic duct was then transected. The cystic artery was clipped proximally and distally and this too was transected using scissors. The gallbladder was then bovied off the undersurface of the liver. In the process of maneuvering the gallbladder a small hole at the fundus of the gallbladder did develop which spilled some purulent tinged bile. All of this was promptly suctioned out. Once the gallbladder was free, it was placed into a bag and brought out through the 10 mm trocar site. The trocar was then replaced. The entire right upper quadrant was then copiously irrigated with 2 L of normal saline. Hemostasis was excellent. The fascia at the 10 mm trocar site was closed using 0 PDS with the aid of the fascial closure device. 2 separate sutures were placed in this location. The remaining trocars were opened up. Insufflation was allowed to escape. A total of 30 cc of local anesthetic was injected into the incisions. 4-0 Vicryl was used to close the skin incisions. Skin glue was also applied. He was awakened from anesthesia and taken to recovery in good condition. Surgical Findings: Normal intraoperative cholangiograms. Complications Complications: No Admit VTE Documentation VTE Present on Admission: No VTE Mechan Device Prophylaxis: SCD's VTE Pharm Prophylaxis ordered?: No Reason prophylaxis not ordered: Treatment Not Indicated
--- NOTE | 2025-02-06 10:09 | PCM.POST.ANE ---
Anesthesia: Postop Eval I Current Vital Signs Temperature: 98 F Pulse Rate: 83 Blood Pressure: 154/90 Respiratory Rate: 16 Pulse Ox: 95 Assessment Airway patent: Yes Spontaneous unlabored respirations: Yes nausea: No Vomiting: No Anesthesia Complication: No Fluid Hydration Crystalloid volume administer (ml): 1,000 Total IV fluid infused: 1,000 Progress Note Anesthesia document: Postop Eval 1 completed: Yes
--- NOTE | 2025-02-06 10:20 | PCM.POSTANE2 ---
Anesthesia Postop Eval I Sum Postop Eval Completion status Anesthesia document: Postop Eval 1 completed: Yes Anesthesia Postop Eval I Summary Anesthesia Postop Eval I Summary: Anesthesia Postop Eval I: Assessment Summary Airway patent Yes 02/06/25 10:09 Spontaneous unlabored Yes 02/06/25 10:09 respirations Mental status nausea No 02/06/25 10:09 Vomiting No 02/06/25 10:09 Anesthesia Postop Eval I: Fluid Summary Crystalloid volume administer 1,000 02/06/25 10:09 (ml) Colloids volume administered ( ml) Blood Product volume administered (ml) Total IV fluid infused 1,000 02/06/25 10:09 Anesthesia Postop Eval I: Summary Notes Anesthesia Complication No 02/06/25 10:09 Anesthesia Complication Comment: Post-operative progress note Anesthesia: Postop Eval II Evaluation Mental status: Awake and Calm Pain Level: 4 nausea: No Vomiting: No
[2025-02-06] MEDS: amLODIPine 10 MG Tablet PO (11:34)
[2025-02-06] MEDS: Pantoprazole Sodium 40 MG Tablet PO (11:35)
--- NOTE | 2025-02-06 12:28 | PCM.DC.SUM ---
Providers Date of Admission: 02/05/25 Date of Discharge: 02/06/25 Primary Care Physician: Dr. Edmundo Pollock MD Reason For Visit: ACUTE CHOLECYSTITIS Diagnosis Discharge Diagnosis (1) Acute cholecystitis: Status: Acute Code(s): K81.0 - Acute cholecystitis Plan The patient is a 64-year-old male with right upper quadrant pain, gallstones and mild gallbladder wall thickening. I have offered him a laparoscopic cholecystectomy as treatment. We discussed the details of the planned procedure as well as risks benefits and alternatives. He wishes to proceed. Surgery should begin momentarily Medications at Discharge Home Medications amlodipine 10 mg-benazepril 20 mg capsule 1 cap PO QDAY 06/14/24 esomeprazole magnesium 40 mg capsule,delayed release 40 mg PO QDAY 06/14/24 rosuvastatin 10 mg tablet 10 mg PO QDAY 06/14/24 umeclidinium 62.5 mcg-vilanterol 25 mcg/actuation powdr for inhalation (Anoro Ellipta) 1 inh inhalation QDAY 06/14/24 tirzepatide 5 mg/0.5 mL subcutaneous pen injector (Mounjaro) 5 mg subcut STANTON 02/05/25 oxycodone-acetaminophen 5 mg-325 mg tablet (Percocet) 1 tab PO Q8H PRN pain 4 days #10 tabs 02/06/25 Hospital Course Operations cholecystecomy Summary of Care Provided Minutes Spent on Discharge: 15 Hospital Course: Patient presented to the emergency department with several days of right upper quadrant pain that was worsening. He was seen evaluated by the ER staff. Imaging indicated acute cholecystitis/cholelithiasis. Patient was subsidy admitted and plans were made for cholecystectomy. We discussed the details of the planned procedure and he wished to proceed. He was taken the operating room where cholecystectomy was performed. This was performed without incident. He is doing well postoperatively. Pain is well-controlled. He would like to be discharged home later today Physical Exam Narrative He is alert and oriented x 3. He is in no acute distress. Abdomen is soft and appropriately tender Weight / BMI Weight Weight: 223 lb 5.252 oz Body Mass Index (BMI) 31.1 ABG / Lab / Microbiology Data 02/06/25 05:35 02/06/25 05:35 Laboratory: Laboratory Results - last 24 hr 02/05/25 11:28: Urine Color Straw, Urine Clarity Clear, Urine pH 7.0, Ur Specific [place] 1.005, Urine Protein 15 H, Urine Glucose (UA) Normal, Urine Ketones Negative, Urine Occult Blood Negative, Urine Nitrite Negative, Urine Bilirubin Negative, Urine Urobilinogen Normal, Ur Leukocyte Esterase Negative, Urine RBC 0 SEEN, Urine WBC 0-5 SEEN, Ur Squamous Epith Cells 0 SEEN, Urine Bacteria 0 SEEN, Urine Mucus 0 SEEN 02/06/25 05:35: WBC 7.3, RBC 4.97, Hgb 13.2, Hct 38.8 L, MCV 78.1 L, MCH 26.6 L, MCHC 34.0, RDW Std Deviation 47.7 H, RDW Coeff of Jarvis 16.9 H, Plt Count 295, MPV 9.0, Immature Gran % (Auto) 0.400, Neut % (Auto) 54.8, Lymph % (Auto) 28.8, [place] % (Auto) 11.3 H, Eos % (Auto) 3.7, Baso % (Auto) 1.0, Absolute Neuts (auto) 4.0, Absolute Lymphs (auto) 2.11, Nucleated RBC % 0, PT 14.0, INR 1.1, APTT 29.6, Sodium 140, Potassium 3.5, Chloride 107, Carbon Dioxide 21.8, Anion Gap 11, BUN 6, Creatinine 0.58 L, Estim Creat Clear Calc 111.59, Est GFR (MDRD) Non-Af 108, BUN/Creatinine Ratio 9.6 L, Glucose 102 H, Hemoglobin A1c 5.8 H, Calcium 8.4, Total Bilirubin 0.78, AST 21, ALT 18, Alkaline Phosphatase 64, Total Protein 6.2, Albumin 3.9, Globulin 2.3, Albumin/Globulin Ratio 1.7 02/06/25 06:10: POC Glucose 107 H Radiography Diagnostic Testing: Radiology Impression Abdomen/Pelvis CT 02/05/25 10:10 IMPRESSION: No acute intra-abdominal process. Colonic diverticulosis without acute diverticulitis. No bowel obstruction. Cholelithiasis without CT evidence of acute cholecystitis. Reading Location: [facility] Gallbladder Ultrasound 02/05/25 13:10 IMPRESSION: Acute cholecystitis with cholelithiasis. Hepatic steatosis. Reading Location: [id number] D/C Instructions Discharge Diet: Light diet - advance as tolerated Discharge Activity: May Shower May shower in (days): 1 Lifting Restrictions: No lifting pushing or pulling more than 20 pounds Call your doctor if your incision/area has: Continuous Slow Oozing, Sudden Increased Bleeding, Increased Pain/ Swelling, Increased Redness, Foul Smelling Discharge and Swelling at the incision site Call your doctor if you observe: Fever of 101 or Higher Cleanse incision/area with: Soap & Water DC O2, CPAP, BIPAP Needs Home O2 Discharge instructions: No DC home with Oxygen: No Please Follow Up With: Bunny Mahoney MD When: 2 weeks. Please call office to schedule appointment Meaningful Use Info Meaningful Use Meaningful Use Diagnoses (Choose all that apply): None applicable Ischemic Stroke Statin Dosing Therapy Reference: STATIN DOSE THERAPY REFERENCE: * Patients > 75 years receive moderate or high dose statin therapy. * Patients 75 years or YOUNGER should receive HIGH intensity statin dose unless contraindicated. You will be required to document reason for non-treatment if statin daily dose does not meet guidelines. HIGH DOSE STATIN THERAPY DAILY Atorvastatin > than or = to 40 mg Rosuvastatin > than or = to 20 mg Amlodipine + Atorvastatin > than or = to 2.5/40 mg Ezetimibe + Simvastatin 10/80 mg Simvastatin 80mg Discharge Plan Admission Admit Date/Time: 02/05/25 15:21 Primary Reason for Your Visit: Acute cholecystitis/cholelithiasis Attending Provider: Bunny Mahoney Primary Care Provider: Edmundo Pollock Discharge Orders/Prescriptions Prescriptions: New oxycodone-acetaminophen [Percocet] 5-325 mg tablet 1 tab PO Q8H PRN (Reason: pain) 4 Days Qty: 10 0RF No Action amlodipine-benazepril 10-20 mg capsule 1 cap PO QDAY Anoro Ellipta 62.5-25 mcg/actuation blister with device 1 inh inhalation QDAY esomeprazole magnesium 40 mg capsule,delayed release(DR/EC) 40 mg PO QDAY rosuvastatin 10 mg tablet 10 mg PO QDAY Mounjaro 5 mg/0.5 mL pen injector 5 mg SUBCUT STANTON Patient Comments: [NO ORIGINAL SIG] Referrals / Follow Up: Edmundo Pollock MD [Primary Care Provider] - Disposition Disposition (needs filled in before D/C Order can be placed): Home, Self Care
[2025-02-06] MEDS: oxyCODONE 5 MG Tablet PO ×2 (12:43→17:36)
[2025-02-06] MEDS: Acetaminophen 500 MG Tablet 1000 MG PO (14:11)
== END 2025-02-06 17:56 | disposition home or self-care (01) ==
LOC: ED 10:26 → MS3 15:38
PROVIDERS: Anesthesiology; Admitting Provider Surgery; Emergency Provider Emergency Medicine; PCP Family Medicine; Visit Provider Surgery
PROC: (CPT 47610; principal; 2025-02-06 08:00)
DX: K80.12 Calculus of gallbladder with acute and chronic cholecystitis without obstruction (principal); E11.9 Type 2 diabetes mellitus without complications; Z79.85 Long-term (current) use of injectable non-insulin antidiabetic drugs; I10 Essential (primary) hypertension; Z87.891 Personal history of nicotine dependence; Z79.899 Other long term (current) drug therapy
CPT/HCPCS: 47563; 00790; 36415; 74177; 74300; 76000; 76705; 80053; 81001; 82962; 83036; 83690; 85025; 85610; 85730; 88304; 93005; 94640; 94668; 96361; 96365; 96366; 99221; 99284; Q9967; A4216; C1769; G0378; J2405